=== PATIENT | male | born 1940 | race Caucasian/White ===

== ENCOUNTER 2022-09-23 06:35 | Emergency (ER) | payer MEDICARE, SELFPAY ==
[2022-09-23 06:42] VITALS: BP 142/90; PULSE 83; RESP 16; TEMP 35.7; O2SAT 93; BMI 26.0
--- NOTE | 2022-09-23 06:50 | ED_ITS ---
HPI - General Adult General Stated complaint: BLOOD IN THE URINE Time Seen by Provider: 09/23/22 06:50 Source: patient Mode of arrival: walk-in History of Present Illness HPI narrative: pt presents emergency department complaining of hematuria. Patient states he had hematuria yesterday. He states he has been able to urinate through it. This morning he looked like he has been clearing up. Patient denies any trauma. He denies any flank pain or abdominal pain. He denies any fever, or chills. He denies any nausea, vomiting, diarrhea, constipation. Patient had radiation treatment 5 years ago for prostate cancer plus seeding his prostate done by Dr. Martin. He is on several to and Plavix for atrial fibrillation and 2 stents. He states he feels slightly dizzy. He denies any palpitations. He denies any dysuria. Hasn't testicular pain or swelling. Related Data Home Medications Medication Instructions Recorded Confirmed amlodipine 10 mg-benazepril 20 mg 1 cap PO DAILY 09/23/22 09/23/22 capsule atorvastatin 80 mg tablet 80 mg PO DAILY 09/23/22 09/23/22 carvedilol 12.5 mg tablet 12.5 mg PO Q12H 09/23/22 09/23/22 clopidogrel 75 mg tablet 75 mg PO DAILY 09/23/22 09/23/22 ferrous sulfate 325 mg (65 mg 325 mg PO DAILY 09/23/22 09/23/22 iron) tablet furosemide 20 mg tablet 20 mg PO DAILY 09/23/22 09/23/22 glimepiride 4 mg tablet 4 mg PO BID 09/23/22 09/23/22 metformin 500 mg tablet 500 mg PO BID 09/23/22 09/23/22 pantoprazole 40 mg tablet,delayed 40 mg PO DAILY 09/23/22 09/23/22 release rivaroxaban 20 mg tablet (Xarelto) 20 mg PO DAILY 09/23/22 09/23/22 Allergies Allergy/AdvReac Type Severity Reaction Status Date / Time No Known Drug Allergies Allergy Verified 09/23/22 06:49 Review of Systems ROS Status of ROS 10 or more systems reviewed and unremarkable except as noted in history and below [facility] Medical History (Updated 09/23/22 @ 06:58 by Marcia Benjamin MD) Surgical History (Updated 09/23/22 @ 06:57 by Aleksandr Lam) Exam Narrative Exam Narrative: Nurses notes and vital signs reviewed and patient is not hypoxic. General: Nontoxic, Elderly, chronically ill, and in no apparent distress. Skin: Warm, dry, no pallor noted. No Rash Head: Normocephalic, atraumatic. Neck: Supple, non-tender. Eye: Pupils are equal, round and EOMI. No scleral icterus. Ears, Nose, Mouth, and Throat: TM clear, no posterior oropharynx erythema or nasal mucosal hypertrophy, uvula is mid-line Oral mucosa is moist Cardiovascular: Regular Rate and Rhythm without murmur, gallop or rub. Respiratory: No accessory muscle use or respiratory distress. Lungs are clear to auscultation, no wheezing, rales or rhonchi Chest Wall: no tenderness Back: No midline thoracic or lumbar vertebral tenderness. No CVA tenderness Musculoskeletal: normal ROM, no calf or popliteal tenderness, no lower extremity edema/swelling GI: Abdomen is soft, non-distended. Normal bowel sounds. No masses appreciated. No tenderness to palpation. No rebound, guarding, or rigidity noted. Neurological: A&O x4. No cranial nerve dysfunction observed. No truncal ataxia. Moves all extremities. Sensation intact. Psychiatric: Cooperative and interactive. Normal mood and affect. Constitutional Vital Signs, click to edit/add: Last Vital Signs Temp 96.3 F L 09/23/22 06:42 Pulse 83 09/23/22 06:42 Resp 16 09/23/22 06:42 BP 142/90 H 09/23/22 06:42 Pulse Ox 93 L 09/23/22 06:42 O2 Del Method Room Air 09/23/22 06:42 Course Vital Signs Vital signs: Vital Signs Temperature 96.3 F L 09/23/22 06:42 Pulse Rate 83 09/23/22 06:42 Respiratory Rate 16 09/23/22 06:42 Blood Pressure 142/90 H 09/23/22 06:42 Pulse Oximetry 93 L 09/23/22 06:42 Oxygen Delivery Method Room Air 09/23/22 06:42 Temperature 96.3 F L 09/23/22 06:42 Pulse Rate 83 09/23/22 06:42 Respiratory Rate 16 09/23/22 06:42 Blood Pressure 142/90 H 09/23/22 06:42 Pulse Oximetry 93 L 09/23/22 06:42 Oxygen Delivery Method Room Air 09/23/22 06:42 Medical Decision Making MDM Narrative Medical decision making narrative: Patient is able to urinate. The urine does not show any gross hematuria. He has a UA and labs studies pending. He will be signed out to Dr. mayes at the end of my shift awaiting lab results, reevaluation, and disposition. Discharge Plan Discharge Clinical Impression: Hematuria Referrals: Jaxon Sahu MD [Primary Care Provider] - 1 week
[2022-09-23 07:08] VITALS: BP 144/68; PULSE 74; RESP 18; O2SAT 94
[2022-09-23 07:10] LABS: Hematocrit 48.8 % (42.0-54.0); Hemoglobin 15.5 g/dL (14.0-18.0); Mean Corpuscular HGB Conc 31.8 g/dL (29.9-35.2); Mean Corpuscular Hemoglobin 26.5 pg (25.9-34.0); Mean Corpuscular Volume 83.4 fL (80.0-94.0); Mean Platelet Volume 10.3 fL (9.5-13.5); Platelet Count 232 10^3/uL (150-450); Red Blood Count 5.85 10^6/uL (4.70-6.10); Red Cell Distribution Width 19.6 % (11.0-15.0)
[2022-09-23 07:15] LABS: Bilirubin Urine NEGATIVE (NEGATIVE); Blood Urine LARGE (NEGATIVE); Clarity Urine CLEAR (CLEAR); Color Urine LT. YELLOW (YELLOW); Glucose Urine UA >=1000 mg/dL (NEGATIVE); Ketones Urine NEGATIVE (NEGATIVE); Leukocyte Esterase Urine NEGATIVE (NEGATIVE); Nitrite Urine NEGATIVE (NEGATIVE); Protein Urine NEGATIVE (NEG/TRACE); Urobilinogen Urine 0.2 EU/dL (0.2-1.0); pH Urine 6.5 (5.0-9.0)
[2022-09-23 07:16] LABS: Anion Gap 11.8; BUN Creatinine Ratio 23.1; Calcium 9.7 mg/dL (8.5-10.1); Carbon Dioxide 28.9 mmol/L (21.0-32.0); Chloride 100 mmol/L (98-107); Estimated GFR (African America >60 (>=60); Estimated GFR (Non-African Ame >60 (>=60); Glucose 254 mg/dL (74-106); Potassium 4.7 mmol/L (3.5-5.1); Sodium 136 mmol/L (136-145)
[2022-09-23 07:23] LABS: INR 1.18; Partial Thromboplastin Time 31.5 sec (22.3-36.2); Prothrombin Time 12.4 sec (9.0-11.6)
[2022-09-23 07:26] LABS: Urine Microscopic Indicated YES
[2022-09-23 07:27] LABS: RBC Urine 20-50 #/HPF (0-2); WBC Urine NONE SEEN #/HPF (NONE SEEN)
[2022-09-23 07:28] LABS: Bacteria Urine NONE SEEN #/HPF (NONE SEEN); Mucus Urine NONE SEEN (NONE SEEN); Squamous Epithelial Cell Urine RARE #/LPF (NONE/RARE)
[2022-09-23 07:29] LABS: Urine Culture Indicated NO
[2022-09-23 07:42] LABS: Eosinophils Absolute Manual 2.09 10^3/uL (0.00-0.70); Lymphocytes Absolute Manual 0.77 10^3/uL (1.20-3.80); Monocytes Absolute Manual 0.66 10^3/uL (0.30-0.80); Segmented Neut Absolute Manual 7.48 10^3/uL (1.4-6.5)
--- NOTE | 2022-09-23 07:47 | CT_ITS ---
[address] [address] Patient Name: KHADAR RAMOS MRN: [id number] date: 1940 Sex: M Assigned Patient Location: ER Current Patient Location: Accession/Order Number: [id number] Exam Date: 09/23/2022 08:53 Report Date: 09/23/2022 09:54 At the request of: MARIAM MORLEY Procedure: CT abdomen pelvis w con EXAM: CT abdomen pelvis w con HISTORY: hematuria history of prostate cancer. COMPARISON: None. TECHNIQUE: Axial CT imaging was performed through the abdomen and pelvis with intravenous contrast. Multiplanar reformats were performed. Dose reduction techniques were achieved by using automated exposure control and/or adjustment of mA and/or kV according to patient size and/or use of iterative reconstruction technique. FINDINGS: Lung bases: Emphysema is demonstrated within lung bases. Coronary artery calcifications and/or coronary artery stent. Mild cardiomegaly. GI upper: Moderate hiatal hernia. Significant thickening of the lower esophagus. Liver: Hepatic steatosis. Normal size and contour. Gallbladder: No significant abnormality. No cholelithiasis. Biliary system: No intra or extrahepatic biliary ductal dilatation. Spleen: Normal size. Pancreas: There is a 3 cm cystic structure along the superior margin of the pancreatic body (image 34 series 3). Adrenal glands: 16 mm right adrenal nodule has attenuation compatible with lipid rich adenoma (image 34 of series 3). Normal left adrenal gland. Kidneys/ureters: Normal contours. No hydronephrosis or ureterolithiasis. No nephrolithiasis. Multiple bilateral renal cysts are demonstrated. Dominant cyst versus several adjacent cysts of the inferior pole the right kidney measures up to 8.5 cm in size. Subcentimeter hypoattenuating lesions of the bilateral kidneys are too small to further characterize although statistically most likely represent cysts. Vessels: Significant atherosclerotic disease. Ectatic infrarenal aorta, measuring 2.9 cm. Lymph Nodes: No lymphadenopathy. Small bowel: No wall thickening or dilatation. Colon: No dilatation. Colonic diverticulosis. Appendix: No findings of appendicitis. Peritoneal cavity: No free fluid or peritoneum. Lower : There is bladder wall thickening with minimal adjacent haziness. Treatment related findings of the prostate are noted. Bones: Degenerative findings without acute bony abnormality. Soft tissues: Small right inguinal hernia defect which contains a small amount of fluid. Additional findings: None. CT/CT abdomen pelvis w con IMPRESSION: 1. Prominence of bladder wall minimal adjacent haziness-please exclude cystitis on clinical grounds. 2. Multiple subcentimeter enhancing foci of the right hepatic lobe are indeterminate. These may represent tiny hemangiomas. Enhancing metastatic foci are in the differential diagnosis. Nonemergent MRI hepatic protocol may be of benefit to further characterize. 3. 3 cm cystic structure of the pancreatic head. Pseudocyst or mucinous neoplasm are possible. Comparison to prior imaging, if available, would be of benefit. Otherwise, this can be better characterized on MRI as described above. 4. Moderate hiatal hernia. Significant wall thickening of the lower esophagus likely represents esophagitis. 5. Additional findings as above. Electronically authenticated by: VIRGINIE CARMICHAEL Date: 09/23/2022 09:54
[2022-09-23 08:10] VITALS: BP 130/84; PULSE 77; RESP 16; O2SAT 95
[2022-09-23] MEDS: 0.9 % SODIUM CHLORIDE 1,000 ML 1000 ML IV (08:48)
== END 2022-09-23 11:33 | disposition home or self-care (01) ==
PROVIDERS: Emergency Provider Emergency Medicine; PCP Family Medicine
DX: R31.9 Hematuria, unspecified (principal); Z79.899 Other long term (current) drug therapy; Z79.84 Long term (current) use of oral hypoglycemic drugs; Z79.01 Long term (current) use of anticoagulants; Z85.46 Personal history of malignant neoplasm of prostate; Z79.02 Long term (current) use of antithrombotics/antiplatelets; Z95.5 Presence of coronary angioplasty implant and graft
CPT/HCPCS: 36415; 74177; 80048; 81001; 81003; 81015; 85007; 85025; 85027; 85610; 85730; 87086; 99285; Q9967

== ENCOUNTER 2022-09-27 09:39 | Outpatient (OUT) | payer MEDICARE, SELFPAY ==
[2022-09-28 04:07] LABS: CA 19-9 43 U/mL (0-35)
== END 2022-09-27 09:40 | disposition home or self-care (01) ==
LOC: LAB 09:41
PROVIDERS: PCP Family Medicine; Visit Provider Family Medicine
DX: K86.2 Cyst of pancreas (principal)
CPT/HCPCS: 36415; 86301

== ENCOUNTER 2022-10-10 09:26 | Outpatient (OUT) | payer MEDICARE, SELFPAY ==
--- NOTE | 2022-10-10 09:32 | MR_ITS ---
[address] [address] Patient Name: KHADAR RAMOS MRN: [id number] date: 1940 Sex: M Assigned Patient Location: MRI Current Patient Location: MRI Accession/Order Number: [id number] Exam Date: 10/10/2022 09:45 Report Date: 10/10/2022 14:42 At the request of: JOSY DELACRUZ Procedure: MR abdomen wo/w con EXAMINATION: MR abdomen wo/w con 10/10/2022 11:32 AM PDT HISTORY: Cyst Of Pancreas K86.2, Hematuria R31.9. TECHNIQUE: MRI of the abdomen was performed using multiplanar T1-weighted and T2-weighted sequences before and after administration of intravenous contrast. COMPARISON: CT abdomen/pelvis 09/23/2022. FINDINGS: VISUALIZED PORTIONS OF THE LOWER CHEST: -Hiatal hernia is better evaluated on the preceding chest CT. ABDOMEN: Liver: Normal. No evidence of hepatic steatosis. Biliary tree: No intra or extrahepatic biliary ductal dilatation. Gallbladder: Present and normal. Spleen: Normal. Pancreas: -Homogeneously T2 hyperintense cyst in the cranial aspect of the pancreatic neck which measures 3 x 2.6 x 2.6 cm (series 9001 image 14 and series 5001 image 11). No definite connection to the main pancreatic duct. No enhancement. -No other pancreatic cysts. -No pancreatic ductal dilatation or peripancreatic inflammatory changes. Adrenal glands: Normal. Kidneys: -Multiple simple appearing and nonenhancing bilateral renal cyst. The largest are located in the lower pole of the right kidney where there are 2 adjacent cysts which measure in total 8.1 x 7.9 cm. -No suspicious renal lesion. -No hydronephrosis. Stomach/visualized small bowel and colon: No obstruction. Vasculature: No aneurysm. Intra-abdominal lymph nodes: None pathologically enlarged. Free fluid: None present. MUSCULOSKELETAL: No acute osseous findings. MR/MR abdomen wo/w con IMPRESSION: 1. Simple appearing nonenhancing pancreatic cyst measuring up to 3 cm. No definite connection with the main pancreatic duct. Given low-risk imaging features and patient age greater than or equal to 80 years, recommend repeat MRI of the abdomen with and without contrast and with MRCP in 2 years for further evaluation (recommendations based on white paper for incidental pancreatic cyst). 2. Bilateral benign-appearing renal cysts. No suspicious renal lesion demonstrated. Electronically authenticated by: NAZANIN GILBERT Date: 10/10/2022 14:42
== END 2022-10-10 09:27 | disposition home or self-care (01) ==
LOC: MRI 09:26
PROVIDERS: PCP Family Medicine; Visit Provider Family Medicine
DX: K86.2 Cyst of pancreas (principal); R31.9 Hematuria, unspecified; N28.1 Cyst of kidney, acquired
CPT/HCPCS: 74183

== ENCOUNTER 2022-10-19 09:54 | Outpatient (OUT) | payer MEDICARE, SELFPAY ==
--- NOTE | 2022-10-19 09:58 | US_ITS ---
[address] [address] Patient Name: KHADAR RAMOS MRN: [id number] date: 1940 Sex: M Assigned Patient Location: US Current Patient Location: Accession/Order Number: [id number] Exam Date: 10/19/2022 10:05 Report Date: 10/20/2022 00:56 At the request of: MAGUI JUDGE Procedure: US renal BI EXAMINATION: US renal BI HISTORY: Gross Hematuria R31.0 COMPARISON: MRI abdomen 10/10/2022, CT abdomen pelvis 09/23/2022 TECHNIQUE: Ultrasound examination was performed of the kidneys and urinary bladder. FINDINGS: RIGHT KIDNEY: Homogeneous echotexture without significant cortical thinning. No appreciable stones. Contain several benign-appearing cysts, largest is 9.2 x 8.7 x 6.1 cm and is composed of 2 adjacent cysts versus a septated cyst. Kidney: 10.9 x 5.9 x 7.4 cm LEFT KIDNEY: Homogeneous echotexture without significant cortical thinning. No appreciable stones. Contain several benign-appearing cysts, largest is 3.5 cm. Kidney: 11.2 x 4.4 x 5.4 cm. BLADDER: No visible wall thickening, mass, or calculi. Small posterior right bladder diverticulum, 0.7 cm. US/US renal BI IMPRESSION: 1. Bilateral renal cysts favoring benign etiology, also seen on prior MRI and CT abdomen studies. 2. Small bladder diverticulum. Electronically authenticated by: SHANITA MORRIS Date: 10/20/2022 00:56
== END 2022-10-19 09:55 | disposition home or self-care (01) ==
LOC: US 09:54
PROVIDERS: PCP Family Medicine; Visit Provider Urology
DX: R31.0 Gross hematuria (principal)
CPT/HCPCS: 76775

== ENCOUNTER 2023-03-19 09:52 | Outpatient (OUT) | payer MEDICARE, SELFPAY ==
--- NOTE | 2023-03-19 10:30 | CA_ITS ---
Patient Name: KHADAR RAMOS MR#: [id number] : 1940 Exam Date: 03/19/2023 Ordering Doctor: DR RAMYA BOLAND M.D. ECHOCARDIOGRAM REPORT PROCEDURE: CA ECHO DOPPLER COMPLETE INDICATIONS: Paroxysmal atrial fibrillation, hypertension, diabetes, cardiac stent COMPARISON: None. DESCRIPTION: COMPLETE ECHOCARDIOGRAM Real-time transthoracic echocardiography with 2D, M-mode, spectral and color flow Doppler performed. QUALITY: Technical quality was good. 67 , 158#, BSA 1.83 m2 LEFT VENTRICLE: Normal chamber size. Mild concentric left ventricular hypertrophy. Normal systolic function. LV EF: Normal left ventricular ejection fraction, (>55%). DIASTOLIC: Not adequately assessed due to heart rhythm. ATRIAL SEPTUM: Visually appears intact. LEFT ATRIUM: Severe dilatation. RIGHT ATRIUM: Severe dilatation. RIGHT VENTRICLE: Moderate dilatation. Preserved systolic function. TRICUSPID VALVE: Normal mobility and thickness. No stenosis with moderate regurgitation. Moderately elevated right-sided pressures. RVSP is 49 mmHg. MITRAL VALVE: Mildly thickened with normal mobility. There is no mitral annular calcification. Mild to moderate mitral regurgitation. AORTIC VALVE: Normal trileaflet appearance. Normal leaflet mobility. Multifocal calcifications. No aortic regurgitation. No aortic stenosis. AORTIC ROOT: Normal diameter and appearance. PULMONIC VALVE: Normal thickness and mobility. No stenosis. Mild regurgitation. PERICARDIUM: No evidence of pericardial effusion. IVC: Collapses with inspirations. IVC is dilated (2.2 cm) PLEURA: CONCLUSION: 1. Mild concentric left ventricular hypertrophy with normal systolic function. LVEF is 55 to 60%. 2. Moderately dilated right ventricle with preserved systolic function. 3. Severe biatrial dilatation. 4. Moderate tricuspid regurgitation. 5. Mild to moderate mitral regurgitation. 6. The patient appears to be in atrial fibrillation during the exam. Adult Echocardiography Procedure Report Left Ventricle LVEDD (3.7 - 5.6 cm): 3.98 cm LVESD (2.2 - 4.0 cm): 3.06 cm LVIVS thickness (0.6 - 1.2 cm): 1.60 cm LVPW thickness (0.5 - 1.0 cm): 1.46 cm LVOT Max Gradient: 1.94 mm[Hg] LVOT Area (cm2): 0.70 m/s Peak Velocity (LVOT): 0.70 m/s Mean Velocity (LVOT): 0.49 m/s LVOT Diameter 2.04 cm Left Atrium LA Volume Index (2D A2C): 62.18 ml/m2 Left Atrium Systolic Dimension: 4.35 cm Mitral Valve Mitral Valve E-Wave Peak Velocity: 0.99 m/s Right Ventricle Aorta AO Root Diam: 3.71 cm Ascending Ao Diam: 2.78 cm Aortic Valve AoV Area (Peak Kwan): 1.71 cm2, 1.71 cm2 AoV Area (VTI): 1.83 cm2, 1.83 cm2 Peak Velocity(Antegrade Flow): 1.33 m/s Peak Gradient(Antegrade Flow): 7.05 mm[Hg] Mean Velocity(Antegrade Flow): 0.92 m/s Mean Gradient(Antegrade Flow): 3.76 mm[Hg] Velocity Time Integral: 23.40 cm Tricuspid Valve Peak Velocity (Regurgitant Flow): 3.15 m/s, 3.12 m/s, 3.18 m/s Pulmonic Valve Peak Velocity: 0.78 m/s Peak Gradient: 3.10 mm[Hg], 1.80 mm[Hg] Right Atrium Right Atrium Systolic Pressure: 91.97 ml, 91.97 ml Dictated by: Emiliano Núñez M.D. on 03/20/2023 at 17:58 Approved by: Emiliano Núñez M.D. on 03/20/2023 at 18:02
== END 2023-03-19 09:53 | disposition home or self-care (01) ==
LOC: CARD 09:52
PROVIDERS: PCP Family Medicine; Visit Provider Internal Medicine Interventional Cardiology
DX: I48.0 Paroxysmal atrial fibrillation (principal)
CPT/HCPCS: 93306

== ENCOUNTER 2023-04-05 08:59 | Outpatient (OUT) | payer MEDICARE, SELFPAY ==
--- OUTSIDE RECORDS SUMMARY | 2023-04-05 09:16 | XMS_ITS | CCD ---
Author Name Unknown Address [facility] [address] [place] [address] Organization [facility] Care Team Providers Care Saw Grinder Name Role Phone RAMYA FLANAGAN Attending Unavailable RAMYA FLANAGAN Admitting Unavailable JOSY SAHU Referring Unavailable JOSY SAHU Primary Care Unavailable SEVERIANO, BABAK Admitting Unavailable SEVERIANO, BABAK Consulting Unavailable SEVERIANO, BABAK Attending Unavailable HOY, DR FERRIS Primary Care Unavailable SEVERIANO, BABAK Attending Unavailable SEVERIANO, BABAK Admitting Unavailable SEVERIANO, BABAK Consulting Unavailable ELISABETHY, DR FERRIS Primary Care Unavailable ELTAHAWY, DR BUI Admitting Unavailable HOY, DR FERRIS Primary Care Unavailable ELTAHAWY, DR BUI Consulting Unavailable ELTAHAWY, DR BUI Attending Unavailable MARTIN, DR KILGORE Admitting Unavailable MARTIN, DR KILGORE Consulting Unavailable MARTIN, DR KILGORE Attending Unavailable HOY, DR FERRIS Primary Care Unavailable Josy Sahu Primary Care Physician Yousuf MARTIN Attending Unavailable MARTIN, Yousuf Barroso Admitting Unavailable MARTINYousuf Referring Unavailable MARTIN, Yousuf Barroso Attending Unavailable MARTIN, Yousuf Barroso Admitting Unavailable MARTIN, Yousuf R Attending Unavailable MARTIN, Yousuf Barroso Attending Unavailable ZAHLERKELY Attending Unavailable SEVERIANO, BABAK Attending Unavailable SARAJACKY Attending Unavailable ELTAHAWY, RAMYA Attending Unavailable Medications Current Medications Medication Drug Class(es) Dates Sig (Normalized) Sig (Original) Amlodipine (2 sources) Dihydropyridine Calcium Channel Kendy Start: 04-25-2019 amlodipine Oral, Daily, Refills(s) 0 Start Date: 04/25/19 Status: Ordered atorvastatin 80 mg oral tablet (2 sources) HMG-CoA Reductase Inhibitor Start: 04-25-2021 take 1 mg by mouth once daily atorvastatin 80 mg Tab mg tab(s), Oral, Daily, Refills(s) 0 Start Date: 04/25/21 Status: Ordered carvedilol 3.125 mg oral tablet (2 sources) alpha-Adrenergic Kendy, beta-Adrenergic Kendy Start: 04-25-2021 take 1 mg by mouth twice daily carvedilol 3.125 mg Tab mg tab(s), Oral, BID, Refills(s) 0 Start Date: 04/25/21 Status: Ordered Cinnamon Preparation (2 sources) Non-Standardized Food Allergenic Extract Start: 04-25-2019 take 1 mg by mouth twice daily cinnamon mg, Oral, BID, Refills(s) 0 Start Date: 04/25/19 Status: Ordered clopidogrel 75 mg oral tablet (2 sources) P2Y12 Platelet Inhibitor Start: 04-25-2021 take 1 mg by mouth once daily clopidogrel 75 mg Tab mg tab(s), Oral, Daily, Refills(s) 0 Start Date: 04/25/21 Status: Ordered ferrous sulfate 325 mg delayed release oral tablet (2 sources) Start: 04-25-2021 take 1 mg by mouth once daily ferrous sulfate 325 mg oral enteric coated tablet mg tab(s), Oral, Daily, Refills(s) 0 Start Date: 04/25/21 Status: Ordered Fish Oils (2 sources) Start: 04-25-2019 Fish Oil Oral, Refill(s) 0 Start Date: 04/25/19 Status: Ordered furosemide 40 mg oral tablet (2 sources) Loop Diuretic Start: 04-25-2021 take 1 mg by mouth once daily furosemide 40 mg Tab mg tab(s), Oral, Daily, Refills(s) 0 Start Date: 04/25/21 Status: Ordered glimepiride (2 sources) Sulfonylurea Start: 04-25-2019 glimepiride Oral, Daily, Refills(s) 0 Start Date: 04/25/19 Status: Ordered Iron Chews (2 sources) Start: 04-25-2019 take 1 mg by mouth once daily Iron Chews mg, Oral, Daily, Refills(s) 0 Start Date: 04/25/19 Status: Ordered losartan potassium 25 mg oral tablet (2 sources) Angiotensin 2 Receptor Kendy Start: 04-25-2021 take 1 mg by mouth once daily losartan 25 mg Tab mg tab(s), Oral, Daily, Refills(s) 0 Start Date: 04/25/21 Status: Ordered metFORMIN (2 sources) Biguanide Start: 04-25-2019 metformin Oral, Refills(s) 0 Start Date: 04/25/19 Status: Ordered 24 hr metoprolol succinate 50 mg extended release oral tablet (2 sources) beta-Adrenergic Kendy Start: 04-25-2019 take 1 mg by mouth once daily metoprolol 50 mg ER Tab mg tab(s), Oral, Daily, Refills(s) 0 Start Date: 04/25/19 Status: Ordered Multi Vitamin+ (2 sources) Start: 04-25-2019 Multi Vitamin+ Refill(s) 0 Start Date: 04/25/19 Status: Ordered pantoprazole 40 mg delayed release oral tablet (2 sources) Proton Pump Inhibitor Start: 10-13-2022 take 1 mg by mouth once daily Pantoprazole [address] Tab mg tab(s), Oral, Daily, Refills(s) 0 Start Date: 10/13/22 Status: Ordered Xarelto (2 sources) Factor Xa Inhibitor Start: 04-25-2019 Xarelto Oral, Refills(s) 0 Start Date: 04/25/19 Status: Ordered Simvastatin (2 sources) HMG-CoA Reductase Inhibitor Start: 04-25-2019 simvastatin Oral, Refills(s) 0 Start Date: 04/25/19 Status: Ordered Completed/Discontinued Medications Medication Drug Class(es) Dates Sig (Normalized) Sig (Original) ciprofloxacin 500 mg oral tablet (1 source) Quinolone Antimicrobial Start: 10-13-2022 End: 10-15-2022 take 1 tablet by mouth once daily Cipro 500 mg Tab 500 mg = 1 tab(s), Oral, Daily, Take one tab day before procedure, take one tab after procedure, X 2 day(s), # 2 tab(s), Refills(s) 0, Pharmacy: [facility]/pharmacy #[id number], 169, cm, 10/13/22 9:51:00 EDT, Height/Length Dosing, 81.2, kg, 10/13/22 9:51:00 EDT, W... Start Date: 10/13/22 Stop Date: 10/15/22 Status: Ordered Problems Problem Classification Problem Date Documented Date Episodic/Chronic Cancer of prostate (2 sources) Malignant tumor of prostate 04-25-2019 Chronic Cancer of prostate (4 sources) Personal history of malignant neoplasm of prostate; Translations: [History of malignant neoplasm of prostate] Onset: 04-21-2022 Episodic Cardiac dysrhythmias (3 sources) Unspecified atrial fibrillation; Translations: [Atrial fibrillation] Onset: 05-06-2021 04-25-2019 Chronic Chronic obstructive pulmonary disease and bronchiectasis (2 sources) Emphysema, unspecified; Translations: [Emphysema, unspecified] Onset: 03-29-2023 Chronic Congestive heart failure; nonhypertensive (4 sources) Chronic systolic (congestive) heart failure; Translations: [Acute systolic (congestive) heart failure] Onset: 05-06-2021 Chronic Coronary atherosclerosis and other heart disease (3 sources) Atherosclerotic heart disease of [place] coronary artery without angina pectoris; Translations: [ASHD [place] CA W/O ANGINA PECTORIS] Onset: 04-07-2022 Chronic Diabetes mellitus without complication (6 sources) Type 2 diabetes mellitus without complications; Translations: [Diabetes mellitus] Onset: 05-04-2021 Chronic Diabetes mellitus without complication (2 sources) Glycosuria 04-25-2019 Episodic Disorders of lipid metabolism (4 sources) Hyperlipidemia; Translations: [Mixed hyperlipidemia] Onset: 04-07-2022 04-25-2019 Chronic Essential hypertension (6 sources) Essential (primary) hypertension; Translations: [Hypertensive disorder] Onset: 10-25-2021 Chronic Genitourinary symptoms and ill-defined conditions (7 sources) Nocturia; Translations: [Nocturia] Onset: 04-21-2022 Episodic Hyperplasia of prostate (9 sources) Benign prostatic hyperplasia with lower urinary tract symptoms; Translations: [Benign prostatic hypertrophy with outflow obstruction] Onset: 04-20-2022 Chronic Hypertension with complications and secondary hypertension (2 sources) Hypertensive heart disease with heart failure; Translations: [Hypertensive heart disease with heart failure] Onset: 04-07-2022 Chronic Inflammatory conditions of male genital organs (2 sources) Prostatitis 04-25-2019 Episodic Other and ill-defined heart disease (2 sources) Cardiomegaly; Translations: [Cardiomegaly] Onset: 03-29-2023 Chronic Other diseases of kidney and ureters (1 source) 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; Translations: [Cyst of kidney, acquired] Onset: 10-13-2022 Episodic Other diseases of kidney and ureters (2 sources) Cyst of kidney 10-13-2022 Episodic Other male genital disorders (2 sources) Disorder of male genital organ 04-25-2019 Episodic Other screening for suspected conditions (not mental disorders or infectious disease) (2 sources) Raised prostate specific antigen 04-25-2019 Episodic Unclassified (2 sources) Prostatic intraepithelial neoplasia high grade 04-25-2019 Unclassified (2 sources) Permanent atrial fibrillation; Translations: [Permanent atrial fibrillation] Onset: 04-07-2022 Unclassified (2 sources) Other persistent atrial fibrillation; Translations: [Other persistent atrial fibrillation] Onset: 04-07-2022 Results Test Name Value Interpretation Reference Range Facility Telemedicineon 03-29-2023 Telemedicine [id number] Khadar Ramos 1940 M Date Provider Department Center 03/29/2023 [facility] Family History Problem Relation Age of Onset Other Father Coronary artery disease Brother Other Brother Family Status - Relation Status Age at Father Brother Level of Service:57840 MO OFFICE/OUTPATIENT ESTABLISHED MOD [facility] 30 MIN Reason for Visit and Comments: Telehealth Audio/video Visit [871] Congestive Heart Failure [127] Coronary Artery Disease [187] Hypertension [037260] Atrial Fibrillation [80] Normal [facility] Operative Reporton 3 Operative Report Patient: KHADAR RAMOS Age: 82 years Sex: Male : 1940 Associated Diagnoses: None Author: Yousuf MARTIN MD Procedure Operative Information Details: Date/ Time: 10/17/2022 10:20:00. Pre-Op Dx: Gross Hematuria - R31.0, Hx of Prostate CA - Z85.46. Post-Op Dx: Same. Anesthesia Type: Local. Procedure: Local Cystoscopy. Complications: None. Risks/Benefits/Informed Consent: Surgical risks, benefits, details of the procedure have been explained to the patient, Full informed consent has been obtained. Intraoperative Information Prepped: Patient is brought back to the endoscopy suite, Patient is placed in supine position, Patient prepped in the usual fashion with Betadine solution, 2% Xylocaine Jelly is placed per Urethra, After waiting several minutes the Cystoscope is introduced. The Urethra is: Normal. The Prostatic Urethra is: Unobstructed. The Bladder is: Trabeculated (Severe (3), Open diverticuli diffusely. No bladder tumors. Typical telangiectatic radiation changes.). The ureteral orifices: Show efflux of clear urine. Devices Implanted: None. Removal: Cystoscope is removed, The patient tolerated it well. Postoperative Information Discharge: Patient is discharged home with antibiotic coverage, Follow up arranged. He will get scheduled for a renal ultrasound.. Normal [facility] Comment on above: Result Comment: Elec tronically Signed By: ALFIE WISE, Yousuf Contreras.manuel\Date and Time Signed: 11/14/22 13:41 EDT Office Visiton 10-23-2022 Follow-up visit [id number] Khadar Ramos 1940 M Date Provider Department Center 10/23/2022 271-RAMYA FLANAGAN CARD Clute Omid Family History Problem Relation Age of Onset Other Father Coronary artery disease Brother Other Brother Family Status - Relation Status Age at Father Brother Level of Service:85590 MO OFFICE/OUTPATIENT ESTABLISHED MOD MDM 30-39 MIN Normal [facility] RAD - Ultrasound Reporton RAD - Ultrasound Report [id number] D:127 Normal [facility] UroVysion Fish and Urine Cyt o ([facility])on 10-19-2022 UVFISH & UC Diagnosis Info Invalid Interpretation Code [facility] Comment on above: Result Comment: A:Ur ine,Urine:Voided Diagnosis Summary - No evidence of high grade urothelial carcinoma identified. Adequate cellularity for evaluation. Diagnosis Summary - The UroVysion FISH study detected normal copy numbers for chromosomes 3, 7, 17, and 9p21. 143 cells were analyzed in this evaluation. No evidence of aneuploidy for chromosomes 3, 7, or 17 or deletion of the 9p21 locus was found in cells present in this specimen. This test does not rule out the possibility of a low grade non-invasive papillary urothelial carcinoma. 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 Electronically signed by : on: 10/19/2022 19:17:55 Performed By: #### 1 [id number] ####[facility] [id number] [place] [address] Consent for Procedure/Surger yon 10-17-2022 Consent for Procedure/Surgery [id number] CD:127 Normal [facility] Consent for Treatmenton 10-03 Consent for Treatment [id number] D:127 Normal [facility] IntraOperative Documentson 0 10-17-2022 IntraOperative Documents [id number] CD:127 Normal [facility] Main OR Intraoperative Recor don 10-17-2022 Main OR Intraoperative Record IntraOp Document Type FTURO Summary Primary Physician: Yousuf MARTIN MD Finalized Date/Time: 10/17/22 10:17:46 Pt. Name: LUCASAICAROLYNKHADAR/Sex: 1940 Male Med Rec #: [id number] Physician: Yousuf MARTIN MD Financial #: [id number] Pt. Type: O Room/Bed: / Admit/Disch: 10/17/22 09:14:00 - Institution: Case Times FTURO Entry 1 Patient Times In Room 10/17/22 10:11:00 Out Room 10/17/22 10:19:00 Procedure Times Start 10/17/22 10:13:00 Stop 10/17/22 10:16:00 Anesthesia Times Last Modified By: Bay MARCIAL, Catherine Bonilla 10/17/22 10:17:18 Case Attendance FTURO Entry 1 Entry 2 Entry 3 Case Attendee Yousuf MARTIN MD, RN, Catherine Roque RN, CNOR, Connie Role Performed Surgeon - Primary Partner Marketing Intern - Primary Scrub - Primary Time In 10/17/22 10:11:00 10/17/22 10:11:00 10/17/22 10:11:00 Time Out 10/17/22 10:19:00 10/17/22 10:19:00 10/17/22 10:19:00 Procedure CYSTOSCOPY LOCAL(.) CYSTOSCOPY LOCAL(.) CYSTOSCOPY LOCAL(.) Comments Last Modified By: Bay MARCIAL, Catherine Hermosillo RN, Catherine Acosta RN 10/17/22 10:17:42 10/17/22 10:17:42 10/17/22 10:17:42 Surgical Procedures FTURO Entry 1 Procedure Description Procedure CYSTOSCOPY LOCAL Modifiers . Surgeon Description CYSTOSCOPY Primary Procedure Yes Primary Surgeon Yousuf MARTIN MD Start 10/17/22 10:13:00 Stop 10/17/22 10:16:00 Anesthesia Type Local Surgical Service Urology Wound Class 2 - Clean-Contaminated Last Modified By: Catherine Hermosillo RN 10/17/22 10:17:22 General Case Data FTURO Pre-Care Text: Classifies surgical wound, implements aseptic technique, initiates traffic control Entry 1 Case Information OR URO 3 FT Case Level None Wound Class 2 - Clean-Contaminated Specialty Urology Preop Diagnosis GROSS HEMTURIA BPH WITH Postop Same As Preop No OBSTRUCTION, HX OF PROSTATE CANCER Postop Diagnosis GROSS HEMTURIA BPH WITH Outcomes Met? Yes OBSTRUCTION, HX OF PROSTATE CANCER Last Modified By: Catherine Hermosillo RN 10/17/22 10:16:39 Post-Care Text: The patient is free from signs and symptoms of infection EU IntraOp - FTURO Pre-Care Text: Implements protective measures prior to operative or invasive procedure, confirms identity before the operative or invasive procedure, verifies operative procedure, surgical site, and laterality Entry 1 EU Perioperative Protocols Procedure(s) CYSTOSCOPY LOCAL(.) Patient Identity Birthday, ID Band Verified (select at Check, Patient least 2): Participation Consents / H and P HandP, Surgery/Procedure Operative Site N/A Verified Consent Marking Verified Surgical Site Yes Laterality Verified n/a Verified Procedure Verified Yes Correct Patient Yes Position Verified Availability Equipment, Medication Time Out Yousuf MARTIN MD, Verified (If Participants Catherine Hermosillo RN, Applicable) Mya MARCIAL, Connie HERNÁNDEZ Time Out Complete 10/17/22 10:12:00 Allergies Reviewed? Yes Allergies Reviewed Self/Patient With Body Position Supine Prep Area PENIS Prep Agents Betadine Solution Skin. Condition Intact, [place], Warm, and Dry Additional None Specimens Collected Vitals - EU Blood Pressure 154/80 Pulse 84 bpm Respirations 14 br/min SPO2 EBL 0 IandO - EU Total Intake 0 mL Total Output 0 mL Outcomes Met? Yes Last Modified By: Catherine Hermosillo RN 10/17/22 10:15:58 Post-Care Text: The patient is free from signs and symptoms of injury caused by extraneous objects Sign Out FTURO Entry 1 Before Patient Leaves OR Nurse verbally Yes Nurse verbally n/a confirms with the confirms with the team the name of team that the procedure(s) instrument, sponge, recorded and needle counts are correct (or N/A) Nurse verbally n/a Nurse verbally n/a confirms with the confirms with the team how the team whether there specimen is labeled are any equipment (including patient problems to be name), if applicable addressed Sign Out Complete 10/17/22 10:16:00 Last Modified By: Catherine Hermosillo RN 10/17/22 10:16:19 Case Comments Finalized By: Catherine Hermosillo RN Document Signatures Signed By: Catherine Hermosillo RN 10/17/22 10:17 Normal [facility] Main OR Preoperative Recordo n 10-17-2022 Main OR Preoperative Record Holding Area Document Type FTURO Summary Primary Physician: Yousuf MARTIN MD Finalized Date/Time: 10/17/22 09:29:21 Pt. Name: KHADAR RAMOS Berry Escalera/Sex: 1940 Male Med Rec #: [id number] Physician: Yousuf MARTIN MD Financial #: [id number] Pt. Type: O Room/Bed: / Admit/Disch: 10/17/22 09:14:00 - Institution: Case Times Holding FTURO Pre-Care Text: Verifies consent for planned procedure, identifies individual values and wishes concerning care, includes family members in perioperative teaching Secures patient's records' belongings, and valuables, maintains patient's dignity and privacy, and maintains patient confidentiality Entry 1 In Holding 10/17/22 09:27:00 Outcomes Met? Yes Last Modified By: Mya MARCIAL, Connie HERNÁNDEZ 10/17/22 09:27:59 Post-Care Text: The patient participates in decisions affecting his or her perioperative plan of care The patient's right to privacy is maintained Surgery Checklist FTURO Entry 1 Patient Birthday, ID Band Procedure History and Physical, Identification: Check, Patient Verification: Surgical Consent, With Participation Patient NPO after Midnight: n/a Personal Items: Glasses, Jewelry Personal Items clothes Complaints of Pain: No Comment: Skin Integrity Unable to Visualize Vitals - EU Blood Pressure 154/80 Pulse 84 bpm Respirations 14 br/min SPO2 97 % Additional None RN Reviewed Yes Specimens Collected Last Modified By: BETTY Roque RN, Ruthann 10/17/22 09:29:19 Finalized By: BETTY Roque RN, Ruthann Document Signatures Signed By: BETTY Roque RN, Ruthann 10/17/22 09:29 Normal [facility] Outpatient Surgery Discharge Instructionon 10-17-2022 Outpatient Surgery Discharge Instruction [id number] CD:127 Normal [facility] Insurance Correspondenceon 0 10-13-2022 Insurance Correspondence [id number] CD:127 Normal [facility] Patient Educationon 10-14-19 Patient Education Urology Benign Prostatic Hyperplasia Benign prostatic hyperplasia (BPH) is an enlarged prostate gland that is caused by the normal aging process. The prostate may get bigger as a man gets older. The condition is not caused by cancer. The prostate is a walnut-sized gland that is involved in the production of semen. It is located in front of the rectum and below the bladder. The bladder stores urine. The urethra carries stored urine out of the body. An enlarged prostate can press on the urethra. This can make it harder to pass urine. The buildup of urine in the bladder can cause infection. Back pressure and infection may progress to bladder damage and kidney (renal) failure. What are the causes? This condition is part of the normal aging process. However, not all men develop problems from this condition. If the prostate enlarges away from the urethra, urine flow will not be blocked. If it enlarges toward the urethra and compresses it, there will be problems passing urine. What increases the risk? This condition is more likely to develop in men older than 50 years. What are the signs or symptoms? Symptoms of this condition include: ? Getting up often during the night to urinate. ? Needing to urinate frequently during the day. ? Difficulty starting urine flow. ? Decrease in size and strength of your urine stream. ? Leaking (dribbling) after urinating. ? Inability to pass urine. This needs immediate treatment. ? Inability to completely empty your bladder. ? Pain when you pass urine. This is more common if there is also an infection. ? Urinary tract infection (UTI). How is this diagnosed? This condition is diagnosed based on your medical history, a physical exam, and your symptoms. Tests will also be done, such as: ? A post-void bladder scan. This measures any amount of urine that may remain in your bladder after you finish urinating. ? A digital rectal exam. In a rectal exam, your health care provider checks your prostate by putting a lubricated, gloved finger into your rectum to feel the back of your prostate gland. This exam detects the size of your gland and any abnormal lumps or growths. ? An exam of your urine (urinalysis). ? A prostate specific antigen (PSA) screening. This is a blood test used to screen for prostate cancer. ? An ultrasound. This test uses sound waves to electronically produce a picture of your prostate gland. Your health care provider may refer you to a specialist in kidney and prostate diseases (urologist). How is this treated? Once symptoms begin, your health care provider will monitor your condition (active surveillance or watchful waiting). Treatment for this condition will depend on the severity of your condition. Treatment may include: ? Observation and yearly exams. This may be the only treatment needed if your condition and symptoms are mild. ? Medicines to relieve your symptoms, including: ? Medicines to shrink the prostate. ? Medicines to relax the muscle of the prostate. ? Surgery in severe cases. Surgery may include: ? Prostatectomy. In this procedure, the prostate tissue is removed completely through an open incision or with a laparoscope or robotics. ? Transurethral resection of the prostate (TURP). In this procedure, a tool is inserted through the opening at the tip of the penis (urethra). It is used to cut away tissue of the inner core of the prostate. The pieces are removed through the same opening of the penis. This removes the blockage. ? Transurethral incision (TUIP). In this procedure, small cuts are made in the prostate. This lessens the prostate's pressure on the urethra. ? Transurethral microwave thermotherapy (TUMT). This procedure uses microwaves to create heat. The heat destroys and removes a small amount of prostate tissue. ? Transurethral needle ablation (TUNA). This procedure uses radio frequencies to destroy and remove a small amount of prostate tissue. ? Interstitial laser coagulation (ILC). This procedure uses a laser to destroy and remove a small amount of prostate tissue. ? Transurethral electrovaporization (TUVP). This procedure uses electrodes to destroy and remove a small amount of prostate tissue. ? Prostatic urethral lift. This procedure inserts an implant to push the lobes of the prostate away from the urethra. Follow these instructions at home: ? Take [id number] and prescription medicines only as told by your health care provider. ? Monitor your symptoms for any changes. Contact your health care provider with any changes. ? Avoid drinking large amounts of liquid before going to bed or out in public. ? Avoid or reduce how much caffeine or alcohol you drink. ? Give yourself time when you urinate. ? Keep all follow-up visits. This is important. Contact a health care provider if: ? You have unexplained back pain. ? Your symptoms do not get better with treatment. ? You develop side effects from the medicine (more content not included)... Normal [facility] UroVysion Fish and Urine Cyt o ([facility])on 10-13-2022 [facility] Method of Extraction Bladder Urine Normal [facility] Comment on above: Performed By: #### 1 [id number] ####[facility] [id number] [place] [address] [facility] Number of Jars 1 Invalid Interpretation Code [facility] Comment on above: Performed By: #### 1 [id number] ####[facility] [id number] [place] [address] [facility] Specimen Urine Normal [facility] Comment on above: Performed By: #### 1 [id number] ####[facility] [id number] [place] [address] [facility]UC Type of Service Technical Only Normal [facility] Comment on above: Performed By: #### 1 [id number] ####[facility] [address] [place] [address] Urology Office/Clinic Noteon 10-13-2022 Urology Office/Clinic Note Chief Complaint Hx of prostate cancer HPI Staff 1 year f/u with PSA. Previous dx of BPH with urinary obstruction, hx of prostate cancer (Brachytherapy 10/2014) and nocturia. Current PSA done 09/23/22 is <0.13 and previous done 04/18/21 was 0.14. Pt saw blood in his urine on September 23 and went to [facility] for it. He states that he only saw it the one day and has not seen it since. 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 Dysuria: no Incomplete bladder emptying: no Hematuria: saw blood on September 23 this year, only for 1 day and nothing since. Frequency: no Urgency: yes almost every time Nocturia: 3x since Brachytherapy Stream: no straining good stream Leaking: no Post void dripping: yes Wearing pads/ Depends: a pad sometimes Urge incontinence: no Stress incontinence: no Incontinence without Sensory Awareness: no Abdominal pain: no Flank pain: no Sexual complaints: no History of Present Illness Tests reviewed: reviewed UA and PSA I have reviewed the previous health record information and history for this patient from . I have reviewed and verified the staff HPI to be accurate for this encounter. There have been no associated fever, chills, flank pain, or blood in the urine. Denies any urinary infections since last encounter. Review of Systems PHQ Score Initial Depression Screen Score: 0 ROS - Provider Constitutional: denies weight loss, denies hot flashes. Eyes: denies eye problems. Gastrointestinal: denies nausea, denies vomiting. Cardiovascular: denies chest pain or angina. Integumentary: no dryness Musculoskeletal: denies musculoskeletal symptoms. ENMT: denies otolaryngeal symptoms. Respiratory: no shortness of breath. Heme/Lymph: denies easy bleeding tendency, denies easy bruising tendency. Psychiatric: no confusion, no anxiety. Genitourinary: See HPI. Physical Exam Vitals & Measurements HR: 69(Peripheral) RR: 16 BP: 132/78 HT: 67 in HT: 169 cm WT: 81.2 kg WT: 178.64 lb BMI: 28.43 General Appearance: alert, no distress, well nourished, well developed male. Genitourinary: normal scrotum, normal testes, normal urethra, normal epididymis, normal vas deferens/spermatic cord. Flank Pain: none. Bladder: nonpalpable. Assessment/Plan 1. BPH with urinary obstruction (N40.1: Benign prostatic hyperplasia with lower urinary tract symptoms) Patient is not on any BPH medication at this time and is doing well overall w/ his urination. Pt states he does experience urgency if he waits too long. UA today is negative for blood and infection. 2. History of prostate cancer (Z85.46: Personal history of malignant neoplasm of prostate) S/p Brachytherapy 10/2014. PSA 04/21/19 - 0.12 04/13/20 - <0.05 04/18/21 - 0.14 04/21/22 - <0.13 Discussed PSA levels with pt, remain low and stable. Will continue to monitor. Will order PSA. 3. Nocturia (R35.1: Nocturia) Mild patient gets up 3x a night. Ongoing since Brachytherapy 4. Renal cyst (N28.1: Cyst of kidney, acquired) CT AP w/o con 09/23/22 - several adjacent cysts inferior of the Rt kidney measuring up to 8.5cm 5. Gross hematuria (R31.0: Gross hematuria) Pt saw blood in his urine on September 23 and went to [facility] for it. He states that he only saw it the one day and has not seen it since. 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 UCx. 09/23/22 - negative UA today is negative for blood and infection. Pt denies any pain or visible blood in his urine since this incident. Will schedule cysto. The risks and benefits for cystoscopy have been discussed. The risks include bleeding, infection, and irritation of the bladder and urinary channel, among others. The patient, after being informed of procedural details and after questions have been answered, wishes to proceed. Full informed consent has been obtained. Will order Local anesthesia. Will send abx to pharm on file. Follow-up With When Contact Information ALFIE WISE, Yousuf Barroso, [facility] [address], [place] [address]- Additional Instructions: sched Cysto. Patient Education Benign Prostatic Hyperplasia I, Guerda Negrete , personally scribed for Dr. Martin on 10/13/2022 10:50:40. . Documentation recorded by the scribe, Guerda Negrete, accurately reflects the services(s) I performed and decisions made by me. Problem List/Past Medical History Ongoing Atrial fibrillation BPH (benign prostatic hyperplasia) BPH with urinary obstruction Diabetes Elevated PSA Glycosuria Gross hematuria High grade prostatic intraepithelial neoplasia History of prostate cancer Hyperlipidemia Hypertension Nocturia Prostatitis Renal cyst Right hydrocele Historical Prostate cancer Procedure/Surgical History Placement of stent in cardiac conduit (08/2020), carotid end (more content not included)... [facility] Comment on above: Result Comment: Elec tronically Signed By: Yousuf MARTIN MD\.br\Date and Time Signed: 10/13/22 10:52 EDT\.br\Electronically Co-Signed By: Guerda Negrete\.br\Date and Time Co-Signed: 10/13/22 10:50 EDT\.br\Electronically Co-Signed By: Guerda Negrete\.br\Date and Time Co-Signed: 10/13/22 10:51 EDT Lab Reportson 10-02-2022 Lab Reports [id number] D:127 [facility] Provider Letteron 07-12-2022 Provider Letter (Inserted Image. Arlene ble to display) July 12, 2022 KHADAR RAMOS [address] [id number] KHADAR RAMOS 1940 Dear Mr. Ramos, We have been trying to reach you with no success. You have an appointment with Dr. Yousuf Martin on August 11 which will need to be rescheduled since he will be out of the office that day. Please contact the office at the number listed below to get this appointment rescheduled at your earliest convenience. Thank you for your prompt attention to this matter. Please call [phone] and choose the licensing representative option to be rescheduled. Sincerely, [facility] [address], [place] [address] Normal [facility] Lab Reportson 04-25-2022 Lab Reports [id number] D:127 Normal [facility] CBC AUTO DIFFon 04-20-2022 BASO # 0.0 103/ul Normal 0.0-0.1 [facility] Comment on above: Performed By: #### C BC #### [facility] [address] [place] [address] Dr. Nic Marie Basophils/100 WBC (Bld) 0.5 % Normal 0.2-2.0 [facility] Comment on above: Performed By: #### C BC #### [facility] [address] [place] [address] Dr. Nic Marie EO # 0.7 103/ul Normal 0.0-0.7 [facility] Comment on above: Performed By: #### C BC #### [facility] [address] [address] [address] Nic Marie Eosinophils/100 WBC (Bld) 8.8 % Critically high 0.9-7.0 [facility] Comment on above: Performed By: #### C BC #### [facility] [address] [place] [address] Dr. Nic Marie Erythrocyte distribution width (RBC) [Ratio] 18.0 % Critically high 11.0-15.0 [facility] Comment on above: Performed By: #### C BC #### [facility] [address] [place] [address] Dr. Nic Marie Hematocrit (Bld) [Volume fraction] 44.3 % Normal 42.0-54.0 [facility] Comment on above: Performed By: #### C BC #### [facility] [address] [place] [address] Dr. Nic Marie Hemoglobin (Bld) [Mass/Vol] 13.6 g/dL Critically low 14.0-18.0 [facility] Comment on above: Performed By: #### C BC #### [facility] [address] [address] [address] Nic Marie IG # 0.05 10e3/ul Critically high 0.00-0.03 [facility] Comment on above: Performed By: #### C BC #### [facility] [address] [place] [address] Dr. Nic Marie IG % 0.6 % Critically high 0.0-0.5 [facility] Comment on above: Performed By: #### C BC #### [facility] [address] [place] [address] Dr. Nic Marie LYMPH # 0.8 103/ul Critically low 1.2-3.8 [facility] Comment on above: Performed By: #### C BC #### [facility] [address] [place] [address] Dr. Nic Marie Lymphocytes/100 WBC (Bld) 10.7 % Critically low 20.5-60.0 [facility] Comment on above: Performed By: #### C BC #### [facility] [address] [place] [address] Dr. Nic Marie MANUAL DIFF REQ NO Normal [facility] Comment on above: Performed By: #### C BC #### [facility] [address] [place] [address] Dr. Nic Marie MCH (RBC) [Entitic mass] 24.9 pg Critically low 25.9-34.0 [facility] Comment on above: Performed By: #### C BC #### [facility] [address] [place] [address] Dr. Nic Marie MCHC (RBC) [Mass/Vol] 30.7 g/dL Normal 29.9-35.2 [facility] Comment on above: Performed By: #### C BC #### [facility] [address] [place] [address] Dr. Nic Marie MCV (RBC) [Entitic vol] 81.0 fL Normal 80.0-94.0 [facility] Comment on above: Performed By: #### C BC #### [facility] [address] [address] [address] Nic Marie MONO # 0.9 103/ul Critically high 0.3-0.8 [facility] Comment on above: Performed By: #### C BC #### [facility] [address] [address] [address] Nic Marie Monocytes/100 WBC (Bld) 11.1 % Normal 1.7-12.0 [facility] Comment on above: Performed By: #### C BC #### [facility] [address] [address] [address] Nic Marie NEUT # 5.3 103/ul Normal 1.4-6.5 [facility] Comment on above: Performed By: #### C BC #### [facility] [address] [place] [address] Dr. Nic Marie Neutrophils/100 WBC (Bld) 68.3 % Normal 43.0-75.0 [facility] Comment on above: Performed By: #### C BC #### [facility] [address] [place] [address] Dr. Nic Marie Platelet mean volume (Bld) [Entitic vol] 10.0 fL Normal 9.5-13.5 [facility] Comment on above: Performed By: #### C BC #### [facility] [address] [place] [address] Dr. Nic Marie PLT 203 103/ul Normal 150-450 [facility] Comment on above: Performed By: #### C BC #### [facility] [address] [place] [address] Dr. Nic Marie RBC 5.47 106/ul Normal 4.70-6.10 [facility] Comment on above: Performed By: #### C BC #### [facility] [address] [place] [address] Dr. Nic Marie WBC 7.8 103/ul Normal 4.0-11.0 [facility] Comment on above: Performed By: #### C BC #### [facility] [address] [place] [address] Dr. Nic Marie LIPID PROFILEon 04-20-2022 CHOL-HDL RATIO NORM SEE BELOW Normal [facility] Comment on above: Result Comment: 3.3 - 4.4 LOW RISK 4.4 - 7.1 AVERAGE RISK 7.1 - 11.0 MODERATE RISK >11.0 HIGH RISK Performed By: #### C MP, LIPID #### [facility] [address] [address] [address] Nic Marie Cholesterol [Mass/Vol] 108 mg/dL Normal <=200 [facility] Comment on above: Performed By: #### C MP, LIPID #### [facility] [address] [address] [address] Nic Marie Cholesterol in HDL [Mass/Vol] 36 mg/dL Critically low 40-60 [facility] Comment on above: Performed By: #### C MP, LIPID #### [facility] [address] [address] [address] Nic Marie Cholesterol in LDL [Mass/Vol] 54.2 mg/dL Normal [facility] Comment on above: Performed By: #### C MP, LIPID #### [facility] [address] [address] [address] Nic Marie Cholesterol.total/Ch olesterol in HDL [Mass ratio] 3.0 {ratio} Normal [facility] Comment on above: Performed By: #### C MP, LIPID #### [facility] [address] [address] [address] Nic Marie HDL NORMAL > or = 60 mg/dl - LO W CARDIOVASCULAR RISK <40 mg/dl - HIGH CARDIOVASCULAR RISK Normal [facility] Comment on above: Performed By: #### C MP, LIPID #### [facility] [address] [address] [address] Nic Marie LDL CALC NORMAL SEE BELOW Normal [facility] Comment on above: Result Comment: <100 mg/dl OPTIMAL 100 - 129 mg/dl NEAR OR ABOVE OPTIMAL 130 - 159 mg/dl BORDERLINE HIGH 160 - 189 mg/dl HIGH >190 mg/dl VERY HIGH Performed By: #### C MP, LIPID #### [facility] [address] [place] [address] Dr. Nic Marie Triglyceride [Mass/Vol] 89 mg/dL Normal <=150 [facility] Comment on above: Performed By: #### C MP, LIPID #### [facility] [address] [place] [address] Dr. Nic Marie VLDL CALC 17.8 mg/dL Normal [facility] Comment on above: Performed By: #### C MP, LIPID #### [facility] [address] [place] [address] Dr. Nic Marie PROF 14(COMP METB)on 023 Albumin [Mass/Vol] 3.7 g/dL Normal 3.4-5.0 [facility] Comment on above: Performed By: #### C MP, LIPID #### [facility] [address] [place] [address] Dr. Nic Marie Albumin/Globulin [Mass ratio] 1.0 {ratio} Normal [facility] Comment on above: Performed By: #### C MP, LIPID #### [facility] [address] [place] [address] Dr. Nic Marie ALP [Catalytic activity/Vol] 59 U/L Normal 46-116 [facility] Comment on above: Performed By: #### C MP, LIPID #### [facility] [address] [place] [address] Dr. Nic Marie ALT [Catalytic activity/Vol] 28 U/L Normal 16-63 [facility] Comment on above: Performed By: #### C MP, LIPID #### [facility] [address] [place] [address] Dr. Nic Marie Anion gap [Moles/Vol] 12.1 mmol/L Normal [facility] Comment on above: Performed By: #### C MP, LIPID #### [facility] [address] [place] [address] Dr. Nic Marie AST [Catalytic activity/Vol] 18 U/L Normal 15-37 [facility] Comment on above: Performed By: #### C MP, LIPID #### [facility] [address] [place], [place] [id number] Dr. Nic Marie Bilirubin [Mass/Vol] 0.6 mg/dL Normal 0.2-1.0 [facility] Comment on above: Performed By: #### C MP, LIPID #### [facility] [address] [place] [address] Dr. Nic Marie Calcium [Mass/Vol] 9.6 mg/dL Normal 8.5-10.1 [facility] Comment on above: Performed By: #### C MP, LIPID #### [facility] [address] [place] [address] Dr. Nic Marie Chloride [Moles/Vol] 104 mmol/L Normal 98-107 [facility] Comment on above: Performed By: #### C MP, LIPID #### [facility] [address] [place] [address] Dr. Nic Marie CO2 [Moles/Vol] 30.3 mmol/L Normal 21.0-32.0 [facility] Comment on above: Performed By: #### C MP, LIPID #### [facility] [address] [place] [address] Dr. Nic Marie Creatinine [Mass/Vol] 0.99 mg/dL Normal 0.70-1.30 [facility] Comment on above: Performed By: #### C MP, LIPID #### [facility] [address] [place] [address] Dr. Nic Marie EGFR-AF MICRONESIAN >60 Normal >=60 [facility] Comment on above: Performed By: #### C MP, LIPID #### [facility] [address] [place] [address] Dr. Nic Marie EGFR-NON AF MICRONESIAN >60 Normal >=60 [facility] Comment on above: Performed By: #### C MP, LIPID #### [facility] [address] [place] [address] Dr. Nic Marie Globulin (S) [Mass/Vol] 3.6 g/dL Normal [facility] Comment on above: Performed By: #### C MP, LIPID #### [facility] [address] [place] [address] Dr. Nic Marie Glucose [Mass/Vol] 114 mg/dL Critically high 74-106 [facility] Comment on above: Performed By: #### C MP, LIPID #### [facility] [address] [address] [address] Nic Marie Potassium [Moles/Vol] 4.4 mmol/L Normal 3.5-5.1 [facility] Comment on above: Performed By: #### C MP, LIPID #### [facility] [address] [address] [address] Nic Marie Protein [Mass/Vol] 7.3 g/dL Normal 6.4-8.2 [facility] Comment on above: Performed By: #### C MP, LIPID #### [facility] [address] [place] [address] Dr. Nic Marie Sodium [Moles/Vol] 142 mmol/L Normal 136-145 [facility] Comment on above: Performed By: #### C MP, LIPID #### [facility] [address] [address] [address] Nic Marie Urea nitrogen [Mass/Vol] 23.0 mg/dL Critically high 7.0-18.0 [facility] Comment on above: Performed By: #### C MP, LIPID #### [facility] [address] [place] [address] Dr. Nic Marie Urea nitrogen/Creatinine [Mass ratio] 23.2 mg/mg Normal [facility] Comment on above: Performed By: #### C MP, LIPID #### [facility] [address] [place] [address] Dr. Nic Marie Office Visiton 04-07-2022 Follow-up visit [id number] Khadar Ramos 1940 M Date Provider Department Center 04/07/2022 BABAK ALMEIDA [facility] Family History Problem Relation Age of Onset Other Father Coronary artery disease Brother Other Brother Family Status - Relation Status Age at Father Brother Level of Service:19552 MO OFFICE/OUTPATIENT ESTABLISHED MOD MDM 30-39 MIN Reason for Visit and Comments: Coronary Artery Disease [187] Congestive Heart Failure [127] Hypertension [504280] Atrial Fibrillation [80] Normal [facility] PROF CHEM 8 (BAS METB)on Anion gap [Moles/Vol] 13.0 mmol/L Normal [facility] Comment on above: Performed By: #### P SAD #### [facility] [address] [address] [address] Nic Marie Calcium [Mass/Vol] 9.0 mg/dL Normal 8.5-10.1 [facility] Comment on above: Performed By: #### P SAD #### [facility] [address] [address] [address] Nic Marie Chloride [Moles/Vol] 100 mmol/L Normal 98-107 [facility] Comment on above: Performed By: #### P SAD #### [facility] [address] [place] [address] Dr. Nic Marie CO2 [Moles/Vol] 27.2 mmol/L Normal 21.0-32.0 [facility] Comment on above: Performed By: #### P SAD #### [facility] [address] [address] [address] Nic Marie Creatinine [Mass/Vol] 1.18 mg/dL Normal 0.70-1.30 [facility] Comment on above: Performed By: #### P SAD #### [facility] [address] [place] [address] Dr. Nic Marie EGFR-AF MICRONESIAN >60 Normal >=60 [facility] Comment on above: Performed By: #### P SAD #### [facility] [address] [address] [address] Nic Marie EGFR-NON AF MICRONESIAN =60 Normal >=60 [facility] Comment on above: Performed By: #### P SAD #### [facility] [address] [address] [address] Nic Marie Glucose [Mass/Vol] 238 mg/dL Critically high 74-106 [facility] Comment on above: Performed By: #### P SAD #### [facility] [address] [address] [address] Nic Marie Potassium [Moles/Vol] 4.2 mmol/L Normal 3.5-5.1 [facility] Comment on above: Performed By: #### P SAD #### [facility] [address] [place] [address] Dr. Nic Marie Sodium [Moles/Vol] 136 mmol/L Normal 136-145 [facility] Comment on above: Performed By: #### P SAD #### [facility] [address] [place] [address] Dr. Nic Maire Urea nitrogen [Mass/Vol] 30.0 mg/dL Critically high 7.0-18.0 [facility] Comment on above: Performed By: #### P SAD #### [facility] [address] [place] [address] Dr. Nic Marie Urea nitrogen/Creatinine [Mass ratio] 25.4 mg/mg Normal [facility] Comment on above: Performed By: #### P SAD #### [facility] [address] [place] [address] Dr. Nic Marie CBC W MANUAL DIFFon 05-05-19 22 ANISOCYTOSIS SLIGHT Normal [facility] Comment on above: Performed By: #### C BCMAN #### [facility] [address] [place] [address] Dr. Nic Marie ATYPICAL LYMPH # Normal [facility] Comment on above: Performed By: #### C BCMAN #### [facility] [address] [place] [address] Dr. Nic Marie ATYPICAL LYMPH % Normal [facility] Comment on above: Performed By: #### C BCMAN #### [facility] [address] [place] [address] Dr. Nic Marie BAND # Normal 0.0-0.3 [facility] Comment on above: Performed By: #### C BCMAN #### [facility] [address] [place] [address] Dr. Nic Marie BAND % Normal 0-5 [facility] Comment on above: Performed By: #### C BCMAN #### [facility] [address] [address] [address] Nic Marie BASOM # 0.15 103/ul Critically high 0.00-0.10 [facility] Comment on above: Performed By: #### C BCMAN #### [facility] [address] [place] [address] Dr. Nic Marie BASOM % 1.0 % Normal 0.2-2.0 [facility] Comment on above: Performed By: #### C BCMAN #### [facility] [address] [place] [address] Dr. Nic Marie BLAST # Normal [facility] Comment on above: Performed By: #### C BCSALINA #### [facility] [address] [place] [address] Dr. Nic Marie BLAST % Normal [facility] Comment on above: Performed By: #### C DAMIAN #### [facility] [address] [place] [address] Dr. Nic Marie CORRECTED WBC Normal 4.0-11.0 [facility] Comment on above: Performed By: #### C DAMIAN #### [facility] [address] [place] [address] Dr. Nic Marie EOS # 0.73 103/ul Critically high 0.00-0.70 [facility] Comment on above: Performed By: #### C DAMIAN #### [facility] [address] [place] [address] Dr. Nic Marie EOS% 5.0 % Normal 0.9-7.0 [facility] Comment on above: Performed By: #### C BCSALINA #### [facility] [address] [place] [address] Dr. Nic Marie HCT 38.1 % Critically low 42.0-54.0 [facility] Comment on above: Performed By: #### C BCSALINA #### [facility] [address] [place] [address] Dr. Nic Marie HGB 10.4 g/dl Critically low 14.0-18.0 [facility] Comment on above: Performed By: #### C BCSALINA #### [facility] [address] [address] [address] Nic Marie HYPOCHROMASIA SLIGHT Normal [facility] Comment on above: Performed By: #### C DAMIAN #### [facility] [address] [address] [address] Nic Marie LYMPHM # 0.58 103/ul Critically low 1.20-3.80 [facility] Comment on above: Performed By: #### C ADMIAN #### [facility] [address] [address] [address] Nic Marie LYMPHM% 4.0 % Critically low 20.5-60.0 [facility] Comment on above: Performed By: #### C DAMIAN #### [facility] [address] [place] [address] Dr. Nic Marie MCH 19.3 pg Critically low 25.9-34.0 [facility] Comment on above: Performed By: #### C DAMIAN #### [facility] [address] [place] [address] Dr. Nic Marie MCHC 27.3 g/dl Critically low 29.9-35.2 [facility] Comment on above: Performed By: #### C DAMIAN #### [facility] [address] [place] [address] Dr. Nic Marie MCV 70.6 fL Critically low 80.0-94.0 [facility] Comment on above: Performed By: #### C DAMIAN #### [facility] [address] [place] [address] Dr. Nic Marie METAMYELOCYTE # Normal [facility] Comment on above: Performed By: #### C DAMIAN #### [facility] [address] [place] [address] Dr. Nic Marie METAMYELOCYTE % Normal [facility] Comment on above: Performed By: #### C DAMIAN #### [facility] [address] [place] [address] Dr. Nic Marie MONOM# 0.58 103/ul Normal 0.30-0.80 [facility] Comment on above: Performed By: #### C DAMIAN #### [facility] [address] [address] [address] Nic Marie MONOM% 4.0 % Normal 1.7-12.0 [facility] Comment on above: Performed By: #### C DAMIAN #### [facility] [address] [address] [address] Nic Marie MPV 9.7 fL Normal 9.5-13.5 [facility] Comment on above: Performed By: #### C DAMIAN #### [facility] [address] [address] [address] Nic Marie MYELOCYTE # Normal [facility] Comment on above: Performed By: #### C DAMIAN #### [facility] [address] [address] [address] Nic Marie MYELOCYTE % Normal [facility] Comment on above: Performed By: #### C DAMIAN #### [facility] [address] [address] [address] Nic Marie NRBC Normal [facility] Comment on above: Performed By: #### C DAMIAN #### [facility] [address] [address] [address] Nic Marie PLT 347 103/ul Normal 150-450 [facility] Comment on above: Performed By: #### C DAMIAN #### [facility] [address] [address] [address] Nic Marie RBC 5.40 106/ul Normal 4.70-6.10 [facility] Comment on above: Performed By: #### C DAMIAN #### [facility] [address] [address] [address] Nic Marie RDW 22.2 % Critically high 11.0-15.0 [facility] Comment on above: Performed By: #### C DAMIAN #### [facility] [address] [address] [address] Nic Marie SEG # 12.56 103/ul Critically high 1.40-6.50 [facility] Comment on above: Performed By: #### C SHUMAN #### [facility] [address] [address] [address] Nic Marie SEG % 86.0 % Critically high 43.0-75.0 [facility] Comment on above: Performed By: #### C SHUMAN #### [facility] [address] [address] [address] Nic Marie WBC 14.6 103/ul Critically high 4.0-11.0 [facility] Comment on above: Performed By: #### C DAMIAN #### [facility] [address] [address] [address] Nic Marie GLYCOHEMOGLOBIN A1Con 2021 ADA RECOMMENDATION ADA THERAPEUTIC TARG ET 6.0 - 7.0 ACTION SUGGESTED > 7.0 Normal [facility] Comment on above: Performed By: #### A 1C #### [facility] [address] [place] [address] Dr. Nic Marie Glucose [Mass/Vol] 171 mg/dL Normal [facility] Comment on above: Performed By: #### A 1C #### [facility] [address] [address] [address] Nic Marie HbA1c (Bld) [Mass fraction] 7.6 % Critically high <=6.0 [facility] Comment on above: Performed By: #### A 1C #### [facility] [address] [place] [address] Dr. Nic Marie LIPID PROFILEon 05-04-2021 CHOL-HDL RATIO NORM SEE BELOW Normal [facility] Comment on above: Result Comment: 3.3 - 4.4 LOW RISK 4.4 - 7.1 AVERAGE RISK 7.1 - 11.0 MODERATE RISK >11.0 HIGH RISK Performed By: #### L IPID, TSH, MG, CMP #### [facility] [address] [address] [address] Nic Marie Cholesterol [Mass/Vol] 97 mg/dL Normal <=200 [facility] Comment on above: Performed By: #### L IPID, TSH, MG, CMP #### [facility] [address] [address] [address] Nic Marie Cholesterol in HDL [Mass/Vol] 34 mg/dL Normal [facility] Comment on above: Performed By: #### L IPID, TSH, MG, CMP #### [facility] [address] [address] [address] Nic Marie Cholesterol in LDL [Mass/Vol] 49.2 mg/dL Normal [facility] Comment on above: Performed By: #### L IPID, TSH, MG, CMP #### [facility] [address] [address] [address] Nic Marie Cholesterol.total/Ch olesterol in HDL [Mass ratio] 2.9 {ratio} Normal [facility] Comment on above: Performed By: #### L IPID, TSH, MG, CMP #### [facility] [address] [address] [address] Nic Marie HDL NORMAL > or = 60 mg/dl - LO W CARDIOVASCULAR RISK <40 mg/dl - HIGH CARDIOVASCULAR RISK Normal [facility] Comment on above: Performed By: #### L IPID, TSH, MG, CMP #### [facility] [address] [address] [address] Nic Marie LDL CALC NORMAL SEE BELOW Normal [facility] Comment on above: Result Comment: <100 mg/dl OPTIMAL 100 - 129 mg/dl NEAR OR ABOVE OPTIMAL 130 - 159 mg/dl BORDERLINE HIGH 160 - 189 mg/dl HIGH >190 mg/dl VERY HIGH Performed By: #### L IPID, TSH, MG, CMP #### [facility] [address] [address] [address] Nic Marie Triglyceride [Mass/Vol] 69 mg/dL Normal <=150 [facility] Comment on above: Performed By: #### L IPID, TSH, MG, CMP #### [facility] [address] [address] [address] Nic Marie VLDL CALC 13.8 mg/dL Normal [facility] Comment on above: Performed By: #### L IPID, TSH, MG, CMP #### [facility] [address] [address] [address] Nic Marie MAGNESIUMon 05-04-2021 Magnesium [Mass/Vol] 1.6 mg/dL Normal 1.6-2.3 [facility] Comment on above: Performed By: #### L IPID, TSH, MG, CMP #### [facility] [address] [place] [address] Dr. Nic Marie PROF 14(COMP METB)on 022 Albumin [Mass/Vol] 3.8 g/dL Normal 3.5-5.0 [facility] Comment on above: Performed By: #### L IPID, TSH, MG, CMP #### [facility] [address] [place] [address] Dr. Nic Marie Albumin/Globulin [Mass ratio] 1.0 {ratio} Normal [facility] Comment on above: Performed By: #### L IPID, TSH, MG, CMP #### [facility] [address] [place] [address] Dr. Nic Marie ALP [Catalytic activity/Vol] 69 U/L Normal 38-126 [facility] Comment on above: Performed By: #### L IPID, TSH, MG, CMP #### [facility] [address] [place] [address] Dr. Nic Marie ALT [Catalytic activity/Vol] 26 U/L Normal 21-72 [facility] Comment on above: Performed By: #### L IPID, TSH, MG, CMP #### [facility] [address] [place] [address] Dr. Nic Marie Anion gap [Moles/Vol] 8.5 mmol/L Normal [facility] Comment on above: Performed By: #### L IPID, TSH, MG, CMP #### [facility] [address] [place] [address] Dr. Nic Marie AST [Catalytic activity/Vol] 16 U/L Critically low 17-59 [facility] Comment on above: Performed By: #### L IPID, TSH, MG, CMP #### [facility] [address] [place] [address] Dr. Nic Marie Bilirubin [Mass/Vol] 0.7 mg/dL Normal 0.2-1.3 [facility] Comment on above: Performed By: #### L IPID, TSH, MG, CMP #### [facility] [address] [place] [address] Dr. Nic Marie Calcium [Mass/Vol] 9.4 mg/dL Normal 8.4-10.2 [facility] Comment on above: Performed By: #### L IPID, TSH, MG, CMP #### [facility] [address] [place] [address] Dr. Nic Marie Chloride [Moles/Vol] 104 mmol/L Normal 98-107 [facility] Comment on above: Performed By: #### L IPID, TSH, MG, CMP #### [facility] [address] [place] [address] Dr. Nic Marie CO2 [Moles/Vol] 30.9 mmol/L Critically high 22.0-30.0 [facility] Comment on above: Performed By: #### L IPID, TSH, MG, CMP #### [facility] [address] [place] [address] Dr. Nic Marie Creatinine [Mass/Vol] 1.03 mg/dL Normal 0.66-1.25 [facility] Comment on above: Performed By: #### L IPID, TSH, MG, CMP #### [facility] [address] [place] [address] Dr. Nic Marie EGFR-AF MICRONESIAN >60 Normal >=60 [facility] Comment on above: Performed By: #### L IPID, TSH, MG, CMP #### [facility] [address] [place] [address] Dr. Nic Marie EGFR-NON AF MICRONESIAN >60 Normal >=60 [facility] Comment on above: Performed By: #### L IPID, TSH, MG, CMP #### [facility] [address] [place] [address] Dr. Nic Marie Globulin (S) [Mass/Vol] 3.7 g/dL Normal [facility] Comment on above: Performed By: #### L IPID, TSH, MG, CMP #### [facility] [address] [place] [address] Dr. Nic Marie Glucose [Mass/Vol] 121 mg/dL Critically high 74-106 [facility] Comment on above: Performed By: #### L IPID, TSH, MG, CMP #### [facility] [address] [place] [address] Dr. Nic Marie Potassium [Moles/Vol] 4.4 mmol/L Normal 3.4-5.0 [facility] Comment on above: Performed By: #### L IPID, TSH, MG, CMP #### [facility] [address] [place] [address] Dr. Nic Marie Protein [Mass/Vol] 7.5 g/dL Normal 6.1-8.2 [facility] Comment on above: Performed By: #### L IPID, TSH, MG, CMP #### [facility] [address] [place] [address] Dr. Nic Marie Sodium [Moles/Vol] 139 mmol/L Normal 137-145 [facility] Comment on above: Performed By: #### L IPID, TSH, MG, CMP #### [facility] [address] [place] [address] Dr. Nic Marie Urea nitrogen [Mass/Vol] 21.0 mg/dL Critically high 9.0-20.0 [facility] Comment on above: Performed By: #### L IPID, TSH, MG, CMP #### [facility] [address] [place] [address] Dr. Nic Marie Urea nitrogen/Creatinine [Mass ratio] 20.4 mg/mg Normal [facility] Comment on above: Performed By: #### L IPID, TSH, MG, CMP #### [facility] [address] [place] [address] Dr. Nic Marie TSHon 05-04-2021 TSH 1.553 uIU/mL Normal 0.470-4.680 [facility] Comment on above: Performed By: #### L IPID, TSH, MG, CMP #### [facility] [address] [place], [place] [address] Dr. Nic Marie TSH RANGE SEE BELOW Normal [facility] Comment on above: Result Comment: <0.3 4 UIU/ml HYPERTHYROID 0.34-5.60 UIU/ml EUTHYROID >5.60 UIU/ml HYPOTHYROID Performed By: #### L IPID, TSH, MG, CMP #### [facility] [address] [place], [place] [address] Dr. Nic Marie Cardiovascular Lab Reporton 08-03-2020 Cardiovascular Lab Report [facility] Patient Name: [facility] Khadar Smart MR #: [id number] Department of Physician: Alexa Campbell M.D. Division of Service Date: 08/03/2020 Cardiology Birthdate: 1940 Adult Cardiovascular Room #: [facility] [address] [place], [place] [address] Cardiovascular Laboratory Report FINAL IMPRESSIONS: 1. Severe stenoses of the right coronary artery successfully treated by balloon angioplasty and drug-eluting stent placement. 2. Mild disease of the left anterior descending and left circumflex coronary artery. 3. Moderately reduced global left ventricular systolic function by noninvasive imaging. 4. Moderately elevated right-sided heart pressures and severely elevated pulmonary capillary wedge pressure consistent with biventricular congestive heart failure. 5. Low normal cardiac output/cardiac index. RECOMMENDATIONS: 1. Aspirin 81 mg daily for 1 month. 2. Plavix 75 mg daily for a minimum of 6 months. 3. To reduce the risk of bleeding on triple therapy, will discontinue aspirin after 1 month and continue with Plavix and Xarelto only. 4. Aggressive cardiovascular risk factor modification. 5. Guideline directed medical therapy for coronary artery disease should include high intensity statin therapy; we will switch simvastatin to atorvastatin 80 mg a day, a beta kendy, and an angiotensin receptor kendy. 6. A basic metabolic panel will be checked 3 days after increasing his Lasix to 40 mg p.o. b.i.d. 7. Lasix will subsequently be decreased to 20 mg p.o. b.i.d. 8. Further management for his atrial fibrillation as clinically appropriate; his cardiomyopathy is likely a mix of ischemic and nonischemic etiology. 9. Follow up with Dr. Flanagan in the next 1 to 2 months. 10. Follow up with Dr. Sahu as scheduled. PROCEDURES: Ultrasound-guided access of right internal jugular vein, right heart catheterization, access to the left radial artery, bilateral selective coronary angiography, percutaneous balloon angioplasty and Synergy drug-eluting stent placement of the right coronary artery. METHODS: After risks, benefits, and alternatives were explained, written informed consent was obtained. The patient was prepped and draped in usual sterile fashion over the right neck and left wrist. Using 1% lidocaine solution, local infiltration anesthesia was achieved. Using a modified Seldinger technique and under ultrasound guidance access to the right internal jugular vein was obtained. A 6-Somali x 11 cm sheath was inserted without difficulty. A Bedolla catheter was used for right heart catheterization measuring pressures in the right atrium, right ventricle, pulmonary artery, and pulmonary capillary wedge positions. Oxygen saturations were obtained and cardiac output/cardiac index was calculated using the Cristobal principle. The Bedolla catheter was removed. The jugular sheath was removed with application of manual pressure to achieve optimal hemostasis. Local infiltration anesthesia was achieved over the left wrist. A micropuncture kit was used to access the left radial artery. A 6-Somali glide sheath was inserted without difficulty. Bilateral selective coronary angiography was performed using JR4 and JL4 catheters. After reviewing the images, it was elected to proceed with an interventional procedure. A 6-Somali JR4 guide catheter was advanced over J-wire and coaxially engaged into the right coronary ostium. A 0.014 Runthrough NS wire was advanced through the catheter across the suspect stenosis and positioned distally. Balloon angioplasty was performed using a 2.5 x 15 mm noncompliant balloon. An inadequate result was treated using a 3.5 x 38 mm and a 3.5 x 12 mm Synergy stents from proximal to distal with attention paid to ensure overlap of stent margins. Postdilation was performed using a 3.5 x 15 mm noncompliant balloon. Repeat imaging showed an optimal result. The wire was removed. Final images showed EZIO-3 flow with no dissection, thrombus, or distal wire trauma. At this juncture it was elected to conclude the procedure. All catheters were removed. The radial sheath was removed with application of a TR band per protocol to achieve optimal hemostasis. Overall, the patient tolerated the procedure well. There were no overt complications. He was to be transferred to the holding area in stable condition. FINDINGS: Hemodynamics. RA 15. RV 52/10. PA 52 26 (37). PCWP 31. TPG 6. AO 146/73. Cardiac output 4.58/cardiac index 2.35. AO sat 96%/PA sat 55%. LEFT VENTRICULOGRAPHY: This was not performed. Ejection fraction is 36% by MUGA scan. CORONARY ARTERIES: Left main coronary artery: This arises from the left coronary cusp. It bifurcates into the left anterior descending and left circumflex coronary artery. It is free of significant stenosis. (more content not included)... Normal [facility] Vital Signs Date Time Vital Sign Value Performing Clinician Janes gautam 10-13-2022 09:35-0400 Blood Pressure Location Yousuf MARTIN [facility] 10-13-2022 09:35-0400 Diastolic blood pressure 78 mm[Hg] Yousuf MARTIN [facility] 10-13-2022 09:35-0400 Heart rate 69 /min Yousuf MARTIN [facility] 10-13-2022 09:35-0400 Respiratory rate 16 /min Yousuf MARTIN [facility] 10-13-2022 09:35-0400 Systolic blood pressure 132 mm[Hg] Yousuf MARTIN [facility] Encounters Encounter Date Encounter Type Care Provider Facility Start: 10-19-2023 ambulatory Yousuf Flemingi ty:ALYSA Clute Start: 03-29-2023 End: 03-29-2023 ambulatory JACKY [facility] Start: 02-23-2023 End: 02-23-2023 ambulatory KELY BORDEN Not Available Start: 10-23-2022 End: 10-23-2022 ambulatory RAMYA [facility] Start: 10-17-2022 End: 10-18-2022 ambulatory Yousuf MARTIN Facility:[facility] Start: 10-17-2022 End: 10-17-2022 Patient encounter procedure Yousuf MARTIN [facility] Start: 10-13-2022 End: 10-14-2022 ambulatory Yousuf MARTIN Facility:[facility] Start: 10-13-2022 End: 10-14-2022 ambulatory Yousuf MARTIN Facility:[facility] Start: 10-13-2022 End: 10-13-2022 Patient encounter procedure Yousuf MARTIN [facility] Start: 04-20-2022 End: 04-21-2022 ambulatory ABBAK العلي Facility: Start: 04-07-2022 End: 04-07-2022 ambulatory BABAK العلي [facility] Start: 10-25-2021 End: 10-26-[address] RAMYA FLANAGAN Facility:[facility] Start: 05-04-2021 End: 05-05-2021 ambulatory BABAK العلي Facility: Start: 08-03-2020 End: 08-04-2020 ambulatory RAMYA FLANAGAN Facility:[facility] Procedures Date Procedure Procedure Detail Performing Clinician Start: 04-20-2022 PSA screening BABAK RED Comment on above: Performed By: #### P SAD #### [facility] [address] [place] [address] Dr. Nic Marie Start: 08-03-2020 Placement of stent i n cardiac conduit Yousuf MARTIN carotid endarderectomy Frandy MARTIN History of hernia repair Tonia MARTIN Operative procedure on coronary artery Yousuf MARTIN Immunizations Immunization Date Immunization Notes Care Provider Fa kathleen 03-05-2020 SARS-CoV-2 (COVID-19 ) mRNA-1273 vaccine Yousuf MARTIN [facility] Comment on above: Result Comment: pt h as had 3 shots to date but does not know the dates NEGATED: Highlighted row has not occurred!04-23-2020 influenza virus vaccine, unspecified formulation Yousuf MARTIN [facility] Payers Date Payer Category Payer Medicare [id number] 1940 Unknown [id number] 2.16.8 [id number] 1940 Unknown [id number] 2.16.84 [id number] 1940 Unknown [id number] 2.16.84 [id number] 1940 Unknown [id number] 2.16.84 [id number] 1940 Unknown [id number] 2.16.84 [id number] 1940 Unknown [id number] 2.16.8 [id number] 1940 Unknown [id number] 2.16.8 [id number] 1940 Unknown [id number] 2.16.8 [id number] 1940 Unknown [id number] 2.16.8 [id number] 1940 Unknown [id number] Private Health Insurance [employer] Social History Date Type Detail Facility Start: 04-25-2019 Tobacco smoking status Ex-smoker (fi nding) [facility] Sex Assigned At Male [facility] Functional Status Date Assessment Result Facility 10-13-2022 Functional Status N/A [facility] Clinical Notes 04-13-2020 to 03-29-2023 Note Date & Type Note Facility 03-29-2023 Note Cardiovascular Medic in[facility] SUBJECTIVE Chief Complaint Patient presents with Telehealth Audio/video Visit Congestive Heart Failure Coronary Artery Disease Hypertension Atrial Fibrillation Khadar Ramos is a 83 y.o. male is being evaluated today for routine follow-up. Congestive Heart Failure His past medical history is significant for CAD. Coronary Artery Disease His past medical history is significant for CHF. Hypertension Atrial Fibrillation Past medical history includes atrial fibrillation, CAD and CHF. PMHx: systolic heart failure, CAD, HTN, a.fib He stays active. [place] so he's always doing maintenance. He gets some leg swelling at the end of the day. This resolves by the AM. Denies c/o CP, dyspnea, orthopnea, PND, dizziness/LH, palpitations, syncope. 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) Glycosuria Gross hematuria Hypertension Nocturia Primary open angle glaucoma (POAG) of both eyes, mild stage Prostatitis Renal cyst Right hydrocele Past Medical History: Diagnosis Date Atrial fibrillation (CMS/HCC) CHF (congestive heart failure) (CMS/HCC) Coronary artery disease Diabetes mellitus (CMS/HCC) Hyperkalemia Hyperlipidemia Hypertension Family History Problem Relation Name Age of Onset Other (cardiac arrest) Father Coronary artery disease Brother Other (CABG) Brother Social History Tobacco Use Smoking status: Former Types: Cigarettes Smokeless tobacco: Never Substance Use Topics Alcohol use: Not Currently No Known Allergies ROS Cardiovascular: Positive for leg swelling (resolves by morning). Musculoskeletal: Positive for arthritis and joint pain. All other systems reviewed and are negative. OBJECTIVE Visit Vitals BP 132/72 (BP Location: Right arm, Patient Position: Sitting) Pulse 81 Ht 1.702 m (5' 7 ) Wt 73 kg (161 lb) SpO2 93% BMI 25.22 kg/m??? Smoking Status Former BSA 1.86 m??? Medications: Current Outpatient Medications: amLODIPine-benazepriL (Lotrel) 10-20 mg capsule, amlodipine 10 mg-benazepril 20 mg capsule, Disp: , Rfl: atorvastatin (Lipitor) 80 mg tablet, Take 80 mg by mouth at bedtime., Disp: , Rfl: carvedilol (Coreg) 12.5 mg tablet, Take 1 tablet (12.5 mg) by mouth with breakfast and with evening meal., Disp: 60 tablet, Rfl: 2 empagliflozin (Jardiance) 10 mg, Take 1 tablet (10 mg) by mouth in the morning., Disp: 30 tablet, Rfl: 2 ferrous sulfate 325 (65 Fe) MG tablet, Take 1 tablet by mouth in the morning., Disp: , Rfl: furosemide (Lasix) 20 mg tablet, Take 20 mg by mouth in the morning., Disp: , Rfl: glimepiride (Amaryl) 4 mg tablet, Take 4 mg by mouth before breakfast., Disp: , Rfl: metFORMIN (Glucophage) 500 mg tablet, Take 500 mg by mouth with breakfast and with evening meal., Disp: , Rfl: pantoprazole (ProtoNix) 40 mg EC tablet, pantoprazole 40 mg tablet,delayed release, Disp: , Rfl: rivaroxaban (Xarelto) 20 mg tablet, Xarelto 20 mg tablet, Disp: , Rfl: Physical Exam - telephone visit. No audible distress heard over the phone. Labs: Legacy Encounter on 08/03/2020 Component Date Value Ref Range Status Ventricular Rate 08/03/2020 108 BPM Final Atrial Rate 08/03/2020 110 BPM Final QRS DURATION 08/03/2020 122 ms Final QT Interval 08/03/2020 320 ms Final QTC CALCULATION(BAZETT) 08/03/2020 428 ms Final R-Bradford 08/03/2020 -82 degrees Final T Wave Bradford 08/03/2020 51 degrees Final Diagnosis 08/03/2020 Final Value:Atrial fibrillation with rapid ventricular response with premature ventricular or aberrantly conducted complexes Left axis deviation Right bundle branch block Inferior infarct (cited on or before 03-AUG-2020) Abnormal ECG When compared with ECG of 03-AUG-2020 09:18, Previous ECG has undetermined rhythm, needs review QT has shortened Confirmed by Wilbert PATEL., L.S. (2) on 08/03/2020 1:51:38 PM No results found for: EXTCMP , BMPR1A , CBCDIF , BNP , LASAP , RED 09/23/2022 Cr 1.08, BUN 25, eGFR >60 10/25/21 bun 30 Cr 1.18, K= 4.2 normal Testing/Procedures: ECHO 03/19/2023 Mild concentric LV hypertrophy with normal systolic function, LVEF 55-60% Moderately dilated RV with preserved systolic function Severe biatrial dilatation Moderate tricuspid regurg Mild to moderate MR Patient appears to be in a.fib during exam 06/10/2020 Echo ASSESSMENT/PLAN: Diagnoses and all orders for this visit: Chronic systolic (more content not included)... [facility] 03-29-2023 Note Patient being seen v ia telemedicine today for 5 mo follow up hypertension, afib, CAD, and systolic heart failure. He had echo last week. He is doing very well. Denies chest pain, SOB, palpitations, lightheadedness/syncope and bleeding on Xarelto. Review of Systems Cardiovascular: Positive for leg swelling (resolves by morning). Musculoskeletal: Positive for arthritis and joint pain. All other systems reviewed and are negative. [facility] 10-23-2022 Note [facility] Cardiology Clinic Note Chief Complaint: Patient here for 6 mo follow up hypertension, afib, CAD, and systolic heart failure. He was seen in [facility] ED last month for hematuria. Plavix was stopped. He only had hematuria that one day in the ED. Denies chest pain, SOB, and palpitations. Doing very well. HPI: Khadar Ramos is a 82 y.o. male With a history of coronary artery disease, atrial fibrillation, recent hematuria here in follow-up He is doing well. He has no new complaints. Cardiology ROS: Review of Systems Musculoskeletal: Positive for arthritis and joint pain. All other systems reviewed and are negative. Past Medical History He has a past medical history of Atrial fibrillation (CMS/HCC), CHF (congestive heart failure) (CMS/HCC), Coronary artery disease, Diabetes mellitus (CMS/HCC), Hyperkalemia, Hyperlipidemia, and Hypertension. Surgical History He has a past surgical history that includes Carotid endarterectomy; Hernia repair; and Cardiac catheterization. Social History He reports that he has quit smoking. His smoking use included cigarettes. He has never used smokeless tobacco. He reports that he does not currently use alcohol. No history on file for drug use. Family History Family History Problem Relation Name Age of Onset Other (cardiac arrest) Father Coronary artery disease Brother Other (CABG) Brother Allergies Patient has no known allergies. Medications Current Outpatient Medications: amLODIPine-benazepriL (Lotrel) 10-20 mg capsule, amlodipine 10 mg-benazepril 20 mg capsule, Disp: , Rfl: aspirin 81 mg EC tablet, Take 1 tablet by mouth in the morning., Disp: , Rfl: atorvastatin (Lipitor) 80 mg tablet, Take 80 mg by mouth at bedtime., Disp: , Rfl: carvedilol (Coreg) 12.5 mg tablet, carvedilol 12.5 mg tablet, Disp: , Rfl: carvedilol (Coreg) 12.5 mg tablet, Take 1 tablet (12.5 mg) by mouth with breakfast and with evening meal., Disp: 60 tablet, Rfl: 2 carvedilol (Coreg) 3.125 mg tablet, carvedilol 3.125 mg tablet, Disp: , Rfl: carvedilol (Coreg) 6.25 mg tablet, Take 1 tablet twice a day by oral route., Disp: , Rfl: cinnamon 500 mg capsule, Take 1,000 mg by mouth in the morning., Disp: , Rfl: clopidogrel (Plavix) 75 mg tablet, Take 1 tablet (75 mg) by mouth once daily as directed., Disp: 90 tablet, Rfl: 3 clopidogrel (Plavix) 75 mg tablet, Take 1 tablet by mouth in the morning., Disp: , Rfl: empagliflozin (Jardiance) 10 mg, Take 1 tablet (10 mg) by mouth in the morning., Disp: 30 tablet, Rfl: 2 ferrous sulfate 325 (65 Fe) MG tablet, in the morning., Disp: , Rfl: ferrous sulfate 325 (65 Fe) MG tablet, Take 1 tablet by mouth in the morning., Disp: , Rfl: furosemide (Lasix) 20 mg tablet, Take 20 mg by mouth in the morning., Disp: , Rfl: glimepiride (Amaryl) 2 mg tablet, Take 2 mg by mouth in the morning., Disp: , Rfl: glimepiride (Amaryl) 4 mg tablet, Take 4 mg by mouth in the morning and at bedtime., Disp: , Rfl: glimepiride (Amaryl) 4 mg tablet, Take 1 tablet by mouth twice a day., Disp: , Rfl: Jardiance 10 mg, , Disp: , Rfl: latanoprost (Xalatan) 0.005 % ophthalmic solution, Administer 1 drop into both eyes., Disp: , Rfl: latanoprost (Xalatan) 0.005 % ophthalmic solution, Administer 1 drop into both eyes at bedtime., Disp: , Rfl: levoFLOXacin (Levaquin) 500 mg tablet, Take 1 tablet by mouth in the morning., Disp: , Rfl: levoFLOXacin (Levaquin) 500 mg tablet, 1 (one) time each day at the same time., Disp: , Rfl: losartan (Cozaar) 25 mg tablet, Take 1 tablet by mouth in the morning., Disp: , Rfl: metFORMIN (Glucophage) 500 mg tablet, Take 500 mg by mouth with breakfast and with evening meal., Disp: , Rfl: metFORMIN (Glucophage) 500 mg tablet, Take 1 tablet by mouth twice a day., Disp: , Rfl: metoprolol succinate XL (Toprol-XL) 50 mg 24 hr tablet, Take 50 mg by mouth in the morning., Disp: , Rfl: mometasone (Elocon) 0.1 % cream, 1 Application., Disp: , Rfl: multivitamin capsule, Take 1 capsule by mouth in the morning., Disp: , Rfl: omega-3 (Fish OiL) 300-1,000 mg capsule, 1 capsule., Disp: , Rfl: OneTouch Ultra Test strip, USE TO TEST BLOOD SUGAR DAILY *DX E11.9*, Disp: , Rfl: pantoprazole (ProtoNix) 40 mg EC tablet, pantoprazole 40 mg tablet,delayed release, Disp: , Rfl: pantoprazole (ProtoNix) 40 mg EC tablet, Take 1 tablet by mouth in the morning., Disp: , Rfl: rivaroxaban (Xarelto) 20 mg tablet, Xarelto 20 mg tablet, Disp: , Rfl: simvastatin (Zocor) 20 mg tablet, 1 (one) time each day at the same time., Disp: , Rfl: Last Recorded Vitals BP 130/80 (BP Location: Left arm, Patient Position: Sitting) Pulse 91 Ht 1.702 m (5' 7 ) Wt 76.7 kg (169 lb) SpO2 91% BMI 26.47 kg/m??? Physical Examination: GENERAL: alert and oriented x3, well developed, in no acute distress. HEAD: atraumatic, normocephalic. EYES: ZACHERY, EOMI. NECK: trachea midline, no JVD present, no carotid bruits present. (more content not included)... [facility] 10-17-2022 Note [id number] [facility] 10-17-2022 Note Custom Cystoscopy ? Voiding after the procedure: there may be some pain, burning, urgency, frequency and blood tinged urine following the procedure. These symptoms usually resolve within 2-5 days. Drink the amount of fluid it takes to keep the urine pink to yellow or clear in color. Drinking enough water and fluids will help to ease any discomfort after your procedure. ? If you are having problems that seem out of the ordinary, please call. ? If unable to contact your physician and you feel it is an emergency, go to the nearest emergency room or call 911 ? Diet ? you may resume your normal diet. ? Activity ? you may resume your normal activities ? Call if you have a fever over 100 degrees. [facility] 10-17-2022 Hospital Discharge instructions Patient Education 10/17/2022 10:18:04 [facility] - Cystoscopy Discharge Instructions (CUSTOM) Cystoscopy Voiding after the procedure: there may be some pain, burning, urgency, frequency and blood tinged urine following the procedure. These symptoms usually resolve within 2-5 days. Drink the amount of fluid it takes to keep the urine pink to yellow or clear in color. Drinking enough water and fluids will help to ease any discomfort after your procedure. If you are having problems that seem out of the ordinary, please call. If unable to contact your physician and you feel it is an emergency, go to the nearest emergency room or call 911 Diet you may resume your normal diet. Activity you may resume your normal activities Call if you have a fever over 100 degrees. Follow Up Care 10/13/2022 11:04:22 With:Yousuf MARTIN Address: [facility] [address] [place] [address]- Business (1) When: Unknown Comments:Office will call to schedule follow up [facility] 10-13-2022 Hospital Discharge instructions Patient Education 10/13/2022 10:50:01 Benign Prostatic Hyperplasia Benign Prostatic Hyperplasia Benign prostatic hyperplasia (BPH) is an enlarged prostate gland that is caused by the normal aging process. The prostate may get bigger as a man gets older. The condition is not caused by cancer. The prostate is a walnut-sized gland that is involved in the production of semen. It is located in front of the rectum and below the bladder. The bladder stores urine. The urethra carries stored urine out of the body. An enlarged prostate can press on the urethra. This can make it harder to pass urine. The buildup of urine in the bladder can cause infection. Back pressure and infection may progress to bladder damage and kidney (renal) failure. What are the causes? This condition is part of the normal aging process. However, not all men develop problems from this condition. If the prostate enlarges away from the urethra, urine flow will not be blocked. If it enlarges toward the urethra and compresses it, there will be problems passing urine. What increases the risk? This condition is more likely to develop in men older than 50 years. What are the signs or symptoms? Symptoms of this condition include: Getting up often during the night to urinate. Needing to urinate frequently during the day. Difficulty starting urine flow. Decrease in size and strength of your urine stream. Leaking (dribbling) after urinating. Inability to pass urine. This needs immediate treatment. Inability to completely empty your bladder. Pain when you pass urine. This is more common if there is also an infection. Urinary tract infection (UTI). How is this diagnosed? This condition is diagnosed based on your medical history, a physical exam, and your symptoms. Tests will also be done, such as: A post-void bladder scan. This measures any amount of urine that may remain in your bladder after you finish urinating. A digital rectal exam. In a rectal exam, your health care provider checks your prostate by putting a lubricated, gloved finger into your rectum to feel the back of your prostate gland. This exam detects the size of your gland and any abnormal lumps or growths. An exam of your urine (urinalysis). A prostate specific antigen (PSA) screening. This is a blood test used to screen for prostate cancer. An ultrasound. This test uses sound waves to electronically produce a picture of your prostate gland. Your health care provider may refer you to a specialist in kidney and prostate diseases (urologist). How is this treated? Once symptoms begin, your health care provider will monitor your condition (active surveillance or watchful waiting). Treatment for this condition will depend on the severity of your condition. Treatment may include: Observation and yearly exams. This may be the only treatment needed if your condition and symptoms are mild. Medicines to relieve your symptoms, including: ?Medicines to shrink the prostate. ?Medicines to relax the muscle of the prostate. Surgery in severe cases. Surgery may include: ?Prostatectomy. In this procedure, the prostate tissue is removed completely through an open incision or with a laparoscope or robotics. ?Transurethral resection of the prostate (TURP). In this procedure, a tool is inserted through the opening at the tip of the penis (urethra). It is used to cut away tissue of the inner core of the prostate. The pieces are removed through the same opening of the penis. This removes the blockage. ?Transurethral incision (TUIP). In this procedure, small cuts are made in the prostate. This lessens the prostate's pressure on the urethra. ?Transurethral microwave thermotherapy (TUMT). This procedure uses microwaves to create heat. The heat destroys and removes a small amount of prostate tissue. ?Transurethral needle ablation (TUNA). This procedure uses radio frequencies to destroy and remove a small amount of prostate tissue. ?Interstitial laser coagulation (ILC). This procedure uses a laser to destroy and remove a small amount of prostate tissue. ?Transurethral electrovaporization (TUVP). This procedure uses electrodes to destroy and remove a small amount of prostate tissue. ?Prostatic urethral lift. This procedure inserts an implant to push the lobes of the prostate away from the urethra. Follow these instructions at home: Take eisn-vis-cjgocnd and prescription medicines only as told by your health care provider. Monitor your symptoms for any changes. Contact your health care provider with any changes. Avoid drinking large amounts of liquid before going to bed or out in public. Avoid or reduce how much caffeine or alcohol you drink. Give yourself time when you urinate. Keep all follow-up visits. This is important. Contact a health care provider if: You have unexplained back pain. Your symptoms do not get better with treatment. You develop side effects from the medicine you are taking. Your urine becomes very dark or has a bad smell. Your lower abdomen becomes distended and you have trouble passing urine. Get help right away if: You have a fever or chills. You suddenly cannot urinate. You feel light-headed or very dizzy, or you faint. There are large amounts of blood or clots in your urine. Your urinary problems become hard to manage. You develop moderate to severe low back or flank pain. The flank is the side of your body between the ribs and the hip. These symptoms may be an emergency. Get help right away. Call 911. Do not wait to see if the symptoms will go away. Do not drive yourself to the hospital. Summary Benign prostatic hyperplasia (BPH) is an enlarged prostate that is caused by the normal aging process. It is not caused by cancer. An enlarged prostate can press on the urethra. This can make it hard to pass urine. This condition is more likely to develop in men older than 50 years. Get help right away if you suddenly cannot urinate. This information is not intended to replace advice given to you by your health care provider. Make sure you discuss any questions you have with your health care provider. Document Revised: 09/07/2021 Document Reviewed: 09/07/2021 [employer] Patient Education 2022 [place]. Follow Up Care 04/25/2021 10:27:16 With:ALFIE WISE, Yousuf Barroso, URL Address: [facility] [address], [place] [address]- When: Unknown Comments:sched Cysto. [facility] 04-07-2022 Note [facility] II Continue GDMT- lipitor, coreg, benazepril Diuretic therapy lasix Currently euvolemic without exacerbation Monitor daily weights, I&O, fluid restriction 1.5-2L/day, renal function and electrolytes- please maintain K+>4 and Mg > 2 [facility] 04-07-2022 Note Continue lipitor [facility] 04-07-2022 Note Coronary artery dise ase is stable- no concerning symptoms continue risk factor modifications- heart healthy diet, regular exercise as tolerated and continue all medications. Continue lipitor, coreg, plavix, [facility] 04-07-2022 Note [id number]- VASc= 5 Remains on Xarelto anticoagualtion Rate remains controlled with coreg. Denied any bleeding tendencies. [facility] 04-07-2022 Note B/P well controlled today 130/80 Continue coreg, amlodipine-benazepril, lasix [facility] 04-07-2022 Note [facility] ESS NOTE HPI: Khadar Ramos is a 82 y.o. male here for Coronary Artery Disease, Congestive Heart Failure, Hypertension, and Atrial Fibrillation Patient here for 6 mo follow up hypertension, CAD, systolic heart failure, and afib. Dr. Flanagan increased his carvedilol to 12.5mg bid at last visit in Oct 2021. He also added Jardiance. Patient tolerated med changes well. Feels great. Denies chest pain, SOB, LE edema, palpitations, and bleeding on Xarelto. Overall states he feels well. Review of Systems Musculoskeletal: Positive for arthritis and joint pain. All other systems reviewed and are negative. Visit Vitals BP 130/80 (BP Location: Left arm, Patient Position: Sitting) Pulse 69 Ht 1.702 m (5' 7 ) Wt 78 kg (172 lb) SpO2 94% BMI 26.94 kg/m??? Smoking Status Former BSA 1.92 m??? No Known Allergies Medications: Current Outpatient Medications on File Prior to Visit Medication Sig Dispense Refill amLODIPine-benazepriL (Lotrel) 10-20 mg capsule amlodipine 10 mg-benazepril 20 mg capsule atorvastatin (Lipitor) 80 mg tablet Take 80 mg by mouth at bedtime. carvedilol (Coreg) 12.5 mg tablet Take 12.5 mg by mouth with breakfast and with evening meal. ferrous sulfate 325 (65 Fe) MG tablet in the morning. furosemide (Lasix) 20 mg tablet Take 20 mg by mouth in the morning. glimepiride (Amaryl) 4 mg tablet Take 4 mg by mouth in the morning and at bedtime. metFORMIN (Glucophage) 500 mg tablet Take 500 mg by mouth with breakfast and with evening meal. pantoprazole (ProtoNix) 40 mg EC tablet pantoprazole 40 mg tablet,delayed release rivaroxaban (Xarelto) 20 mg tablet Xarelto 20 mg tablet [DISCONTINUED] clopidogrel (Plavix) 75 mg tablet Take 75 mg by mouth in the morning. No current facility-administered medications on file prior to visit. Physical Exam: Constitutional: Appearance: Normal appearance. Without apparent distress HENT: Head: Normocephalic and atraumatic. Nose: Nose normal. Mouth/Throat: Mouth: Mucous membranes are moist. Eyes: Extraocular Movements: Extraocular movements intact. Conjunctiva/sclera: Conjunctivae normal. Neck: Vascular: No JVD. Cardiovascular: Rate and Rhythm: Irreg/irreg- rate controlled. Pulses: Dorsalis pedis pulses are 3 on the right side and 3on the left side. Posterior tibial pulses are 3 on the right side and 3 on the left side. Heart sounds: Normal heart sounds, S1 normal and S2 normal. Pulmonary: Effort: Pulmonary effort is normal. Breath sounds: Normal breath sounds. Abdominal: General: Bowel sounds are normal. Palpations: Abdomen is soft. Musculoskeletal: General: Normal range of motion. Cervical back: Normal range of motion. Right lower leg: No edema. Left lower leg: No edema. Skin: General: Skin is warm and dry. Capillary Refill: Capillary refill takes less than 2 seconds. Neurological: General: No focal deficit present. Mental Status: She is alert and oriented to person, place, and time. Psychiatric: Mood and Affect: Mood normal. Behavior: Behavior normal. Thought Content: Thought content normal. Judgment: Judgment normal. Labs: 10/25/21 bun 30 Cr 1.18, K= 4.2 normal Last lab values have been reviewed [facility] Testin06/10/2020 Echo No echocardiogram results found for the past 12 months Assessment/Plan: Benign hypertensive heart disease with heart failure (CMS/HCC) B/P well controlled today 130/80 Continue coreg, amlodipine-benazepril, lasix Atrial fibrillation (CMS/HCC) [id number]- VASc= 5 Remains on Xarelto anticoagualtion Rate remains controlled with coreg. Denied any bleeding tendencies. Coronary atherosclerosis Coronary artery disease is stable- no concerning symptoms continue risk factor modifications- heart healthy diet, regular exercise as tolerated and continue all medications. Continue lipitor, coreg, plavix, Hyperlipidemia Continue lipitor Systolic heart failure (CMS/HCC) [facility] II Continue GDMT- lipitor, coreg, benazepril Diuretic therapy lasix Currently euvolemic without exacerbation Monitor daily weights, I&O, fluid restriction 1.5-2L/day, renal function and electrolytes- please maintain K+>4 and Mg > 2 RTC 6 months- script for routine labs given to pt [facility] 04-07-2022 Note Patient here for 6 m o follow up hypertension, CAD, systolic heart failure, and afib. Dr. Flanagan increased his carvedilol to 12.5mg bid at last visit in Oct 2021. He also added Jardiance. Patient tolerated med changes well. Feels great. Denies chest pain, SOB, LE edema, palpitations, and bleeding on Xarelto. Review of Systems Musculoskeletal: Positive for arthritis and joint pain. All other systems reviewed and are negative. [facility] 04-13-2020 Note Patient Outreach ([facility]) KHADAR RAMOS ([id number]) 1940 M Date Time Provider Department 04/13/20 [facility] During your visit today, we recorded the following information about you: Allergies As of Date: 04/13/2020 (No Known Allergies) Date Reviewed: 06/05/2018 Reviewed by: Rosalie Allen - Fully Assessed Order(s):SARS-COVID VACCINE 1ST DOSE APPT [[id number]] Order #: [id number] FUTURE Prescriptions as of 04/13/2020 Sig: SIMVASTATIN 20 MG TABLET GLIMEPIRIDE 2 MG TABLET Take 2 mg by mouth once daily. IRON 100 PLUS ORAL Take by mouth. METOPROLOL SUCCINATE ER 50 MG* Take 50 mg by mouth once syed* METFORMIN 500 MG TABLET CINNAMON BARK 500 MG CAPSULE Take 1,000 mg by mouth once d* MULTIVITAMIN CAPSULE Take 1 capsule by mouth once * FISH OIL ORAL Take by mouth. AMLODIPINE 10 MG-BENAZEPRIL 2* Take 1 capsule by mouth once * RIVAROXABAN 20 MG TABLET Take 20 mg by mouth once syed* Problem List As Of Date 04/13/2020 Noted Resolved Atrial fibrillation (HCC) [I48.91] 05/28/2014 Hypertension [I10] 05/28/2014 Hyperlipidemia [E78.5] 05/28/2014 Malignant neoplasm of prostate (HCC) [C61] 07/01/2014 History of prostate cancer [Z85.46] 06/09/2015 Letter Text Encounter Status:Closed by SAURABH ESPITIAUSEDharmesh on 04/16/20 [facility] Evaluation + Plan note Future Appointments Appointment Date:10/16/2022 10:45:00 AM Scheduled Provider: Location:[facility] Appointment Type:Urology CALL PAT FT Appointment Date:10/17/2022 10:00:00 AM Scheduled Provider: Location:[facility] Appointment Type:Urology FT Diagnostic Tests PendingPSA Total 10/13/22 [facility] Hospital course Narrative No data available for this section [facility] [facility] Progress note No data available for this section [facility] Summary Purpose Family History No Family History Records FoundNo Family History Records FoundNo Family History Records FoundNo Family History Records FoundNo Family History Records FoundNo Family History Records Found Advance Directives No Advanced Directives Records FoundNo Advanced Directives Records FoundNo Advanced Directives Records FoundNo Advanced Directives Records FoundNo Advanced Directives Records FoundNo Advanced Directives Records Found Additional Source Comments (unrecognized sect ion and content) No Status Records FoundNo Status Records FoundNo Status Records FoundNo Status Records FoundNo Status Records FoundNo Status Records Found INFORMATION SOURCE (unrecogn ized section and content) DATE CREATED AUTHOR 08/09/2020 [facility] DATE CREATED AUTHOR AUTHOR'S ORGANIZ ATION 04/04/2021 [facility] DATE CREATED AUTHOR AUTHOR'S ORGANIZ ATION 04/22/2022 [facility] DATE CREATED AUTHOR AUTHOR'S ORGANIZ ATION 12/12/2022 [facility] DATE CREATED AUTHOR AUTHOR'S ORGANIZ ATION 02/24/2023 [facility] DATE CREATED AUTHOR AUTHOR'S ORGANIZ ATION 04/01/2023 [facility] Patient Care team informatio n (unrecognized section and content) Personnel Name: Jsoy Sahu MD Address: Address: [address] [place] [address] Personnel Name: Josy Sahu MD Address: Address: [address] [place] [address] FOR RECORDS PERTAINING TO PATIENTS WHO ARE OR HAVE BEEN ENROLLED IN A CHEMICAL DEPENDENCY/SUBSTANCEABUSE PROGRAM, SOME INFORMATION MAY BE OMITTED. This clinical summary was aggregated from multiple sources. Caution should be exercised in using it in the provision of clinical care. This summary normalizes information from multiple sources, and as a consequence, information in this document may materially change the coding, format and clinical context of patient data. In addition, data may be omitted in some cases. CLINICAL DECISIONS SHOULD BE BASED ON THE PRIMARY CLINICAL RECORDS. [employer] [facility]. provides no warranty or guarantee of the accuracy or completeness of information in this document.
--- NOTE | 2023-04-05 09:35 | RT_ITS ---
[facility] Test Date: 2023-04-05 Pat Name: KHADAR RAMOS Department: Room: - Gender: Male [employer]el [employer] Tester: Evert [place] RRT : 1940 Requested By: Lucrecia Briggs Order Number: [id number] Reading MD: Robert Ponce Interpretive Statements Spirometry was completed according to ATS criteria. Findings were considered accurate and reproducible. No bronchodilator was ordered. No prior studies available for comparison. Spirometry: -FEV1/FVC: Reduced @ 61% -FEV1: Moderately reduced @ 76% -FVC: Normal @ 86% -GZN47-49%: Reduced @ 45% Flow-volume loop: -Moderate obstructive pattern Impressions: -Spirometry is consistent with a a moderate obstructive process, such as asthma or COPD/emphysema. If needed, consider full PFT (spirometry with bronchodilator, plethysmography [lung volumes], and diffusion capacity) for further evaluation. Clinical correlation required. Electronically Signed On 04-11-2023 17:05:45 EST by Robert Ponce
== END 2023-04-05 09:00 | disposition home or self-care (01) ==
LOC: CARD 08:59
PROVIDERS: PCP Family Medicine; Visit Provider Nurse Practitioner Family
DX: I51.7 Cardiomegaly (principal); J43.9 Emphysema, unspecified
CPT/HCPCS: 94010

== ENCOUNTER 2023-06-27 08:17 | Outpatient (OUT) | payer MEDICARE, SELFPAY ==
--- OUTSIDE RECORDS SUMMARY | 2023-06-27 08:41 | XMS_ITS | CCD ---
Author Organization [facility] Care Team Providers Care Provider Relations Coordinator Name Role Phone RAMYA FLANAGAN Attending Unavailable RAMYA FLANAGAN Admitting Unavailable JOSY SAHU Referring Unavailable JOSY SAHU Primary Care Unavailable SEVERIANO, BABAK Admitting Unavailable SEVERIANO, BABAK Consulting Unavailable SEVERIANO, BABAK Attending Unavailable HOY, DR FERRIS Primary Care Unavailable SEVERIANO, BABAK Attending Unavailable SEVERIANO, BABAK Admitting Unavailable SEVERIANO, BABAK Consulting Unavailable NUBIA, DR FERRIS Primary Care Unavailable ELTAHAWY, DR BUI Admitting Unavailable HOY, DR FERRIS Primary Care Unavailable ELTAHAWY, DR BUI Consulting Unavailable ELTAHAWY, DR BUI Attending Unavailable MARTIN, DR KILGORE Admitting Unavailable MARTIN, DR KILGORE Consulting Unavailable MARTIN, DR KILGORE Attending Unavailable HOY, DR FERRIS Primary Care Unavailable Josy Sahu Primary Care Physician [phone] Yousuf MARTIN Attending Unavailable MARTIN, Yousuf Barroso Admitting Unavailable MARTIN, Yousuf Barroso Referring Unavailable MARTIN, Yousuf Barroso Attending Unavailable MARTIN, Yousuf R Admitting Unavailable MARTIN, Yousuf Barroso Attending Unavailable MARTIN, Yousuf Barroso Attending Unavailable ELTAHAWY, RAMYA Attending Unavailable JACKY RUIZ Attending Unavailable KELY BORDEN Attending Unavailable KELY BORDEN Attending Unavailable Medications Current Medications Medication Drug [...] day(s), # 2 tab(s), Refills(s) 0, Pharmacy: [facility]/pharmacy #[id number], 169, cm, 10/13/22 9:51:00 EDT, Height/Length [...] Onset: 03-29-2023 Chronic Congestive heart failure; nonhypertensive (2 sources) Chronic systolic (congestive) heart failure; Translations: [Acute systolic (congestive) heart failure] Onset: 05-06-2021 Chronic Coronary atherosclerosis and other heart disease (1 source) Atherosclerotic heart disease of [place] coronary artery without angina pectoris; Translations: [ASHD YOMBA SHOSHONE CA W/O ANGINA PECTORIS] Onset: 04-21-2022 Chronic Diabetes mellitus without complication (6 sources) [...] hypertrophy with outflow obstruction] Onset: 04-20-2022 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 Please forward results to PCP. Please have him follow-up with PCP for further management or we can refer him to pulmonary. Thanks! Normal [facility] Telephoneon 04-19-2023 Telephone [id number] Khadar Ramos 1940 M Date Provider Department Center 04/19/[address] Family History Problem Relation Age of Onset Other Father Coronary artery disease Brother Other Brother Family Status - Relation Status Age at Father Brother Normal [facility] Telemedicineon 03-29-2023 Telemedicine [id number] Khadar Ramos 1940 M Provider Department Center 03/29/2023 JACKY ESQUIVEL Family History Problem Relation Age of Onset Other Father Coronary artery disease Brother Other Brother Family Status - Relation Status Age at Father Brother Level of Service:[address] [place] OFFICE/OUTPATIENT ESTABLISHED MOD MDM 30 MIN Reason for Visit and Comments: Telehealth Audio/video Visit [871] Congestive Heart Failure [127] Coronary Artery Disease [187] Hypertension [812893] Atrial Fibrillation [80] Normal [facility] Operative Reporton 3 Operative Report Patient: KHADAR RAMOS Age: 82 years Sex: Male : 1940 Associated Diagnoses: None Author: ALFIE WISE, Yousuf Barroso Procedure Operative Information Details: Date/ Time: 10/17/2022 [...] get scheduled for a renal ultrasound.. Normal [facility] Comment on above: Result Comment: Elec tronically Signed By: ALFIE WISE, Yousuf Contreras.br\Date and Time Signed: 11/14/22 13:41 EDT Office Visiton 10-23-2022 Follow-up visit [id number] Khadar Ramos 1940 M Date Provider Department Center 10/23/2022 Cooper-RAMYA FLANAGAN [facility] Family History Problem Relation Age of Onset Other Father Coronary artery disease Brother Other Brother Family Status - Relation Status Age at Father Brother Level of Service:39123 [place] OFFICE/OUTPATIENT ESTABLISHED MOD [facility] 30-39 MIN Normal [facility] RAD - Ultrasound Reporton RAD - Ultrasound Report [id number] D:127 Normal [facility] UroVysion Fish and Urine Cyt o ([facility])on 10-19-2022 UVFISH & UC Diagnosis Info Invalid Interpretation Code [facility] Comment on above: Result Comment: A:Ur ine,Urine:Voided [...] correlated with cytology and cystoscopy results.* CPT 65514, 70792 Microscopic Notes - Microscopic Notes - Abnormal cells 9p21 deletions: Abnormal cells aneploid events: Total cells analyzed: 143 Hematuria: Gross Description Site ID:A color Light Yellow fixative Alcohol Received 80 mls of clear light yellow fluid with the patient's name and, Urine on the vial. Electronically signed by : on: 10/19/2022 19:17:55 Performed By: #### 1 [id number] ####[facility] [address] [place] [address] Consent for Procedure/Surger yon 10-17-2022 Consent for Procedure/Surgery [id number] CD:127 Normal [facility] Consent for Treatmenton 10-03 Consent for Treatment [id number] D:127 Normal [facility] IntraOperative Documentson 0 10-17-2022 IntraOperative Documents [id number] CD:127 Normal [facility] Main OR Intraoperative Recor don 10-17-2022 Main OR Intraoperative Record IntraOp Document Type FTURO Summary Primary Physician: Yousuf MARTIN MD Finalized Date/Time: 10/17/22 10:17:46 Pt. Name: KHADAR RAMOS/Sex: 1940 Male Med Rec #: [id number] Physician: Yousuf MARTIN MD Financial #: [id number] Pt. Type: O Room/Bed: / Admit/Disch: 10/17/22 09:14:00 - Institution: Case Times FTURO Entry 1 Patient Times In Room 10/17/22 10:11:00 Out Room 10/17/22 10:19:00 Procedure Times Start 10/17/22 10:13:00 Stop 10/17/22 10:16:00 Anesthesia Times Last Modified By: Catherine Hermosillo RN 10/17/22 10:17:18 Case Attendance FTURO Entry 1 Entry 2 Entry 3 Case Attendee Yousuf MARTIN MD, RN, Catherine Roque RN, CNOR, Connie Role Performed Surgeon - Primary Electric Bath Attendant - Primary Scrub - Primary Time In [...] Prep Agents Betadine Solution Skin. Condition Intact, [place], Warm, and Dry Additional None Specimens Collected [...] By: Catherine Hermosillo RN 10/17/22 10:17 Normal [facility] Main OR Preoperative Recordo n 10-17-2022 Main OR Preoperative Record Holding Area Document Type FTURO Summary Primary Physician: Yousuf MARTIN MD Finalized Date/Time: 10/17/22 09:29:21 Pt. Name: KHADAR RAMOS/Sex: 1940 Male Med Rec #: [id number] Physician: Yousuf MARTIN MD Financial #: [id number] Pt. Type: O Room/Bed: / Admit/Disch: 10/17/22 09:14:00 - Institution: Case Times Holding FTURO Pre-Care Text: Verifies consent for planned procedure, identifies individual values and wishes concerning care, includes family members in perioperative teaching Secures patient's records' belongings, and valuables, maintains patient's dignity and privacy, and maintains patient confidentiality Entry 1 In Holding 10/17/22 09:27:00 Outcomes Met? Yes Last Modified By: BETTY Roque RN, Ruthann 10/17/22 09:27:59 Post-Care Text: The patient participates [...] RN, Ruthann Document Signatures Signed By: BETTY Rqoue RN, Ruthann 10/17/22 09:29 Normal [facility] Outpatient Surgery Discharge Instructionon 10-17-2022 Outpatient Surgery Discharge Instruction [id number] CD:127 [facility] Insurance Correspondenceon 0 10-13-2022 Insurance Correspondence [id number] CD:127 [facility] Patient Educationon 10-14-19 Patient Education Urology [...] Follow these instructions at home: ? Take gczp-vki-rgwravk and prescription medicines only as told by [...] the medicine (more content not included)... Normal [facility] UroVysion Fish and Urine Cyt o ([facility]4 Labs)on 10-13-2022 [facility] Method of Extraction Bladder Urine Normal [facility] Comment on above: Performed By: #### 1 [id number] ####[facility] [address] [place] [address] [facility] Number of Jars 1 Invalid Interpretation Code [facility] Comment on above: Performed By: #### 1 [id number] ####[facility] [address] [place] [address] [facility] Specimen Urine Normal [facility] Comment on above: Performed By: #### 1 [id number] ####[facility] [address] [place] [address] [facility] Type of Service Technical Only Normal [facility] Comment on above: Performed By: #### 1 [id number] ####[facility] [address] [place] [address] Urology Office/Clinic Noteon 10-13-2022 Urology Office/Clinic Note Chief Complaint Hx of prostate cancer HPI Staff 1 year f/u with PSA. Previous dx of BPH with urinary obstruction, hx of prostate cancer (Brachytherapy 10/2014) and nocturia. Current PSA done 09/23/22 is <0.13 and previous done 04/18/21 was 0.14. Pt saw blood in his urine on September 23 and went to [facility] for it. He states that he only saw it the one day and has not seen it since. 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 He states that he only saw it the one day and has not seen it since. 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 Follow-up With When Contact Information Yousuf MARTIN MD, URL [facility] [address] [place] [address]- Additional Instructions: sched Cysto. Patient Education Benign Prostatic Hyperplasia I, Guerda Negrete , personally scribed for Dr. Martin on 10/13/2022 10:50:40. . Documentation recorded by the scribeGuerda, accurately reflects the services(s) I performed and [...] (08/2020), carotid end (more content not included)... Normal [facility] Comment on above: Result Comment: Elec tronically Signed By: Yousuf MARTIN MD\.br\Date and Time Signed: 10/13/22 10:52 EDT\.br\Electronically Co-Signed By: Guerda Negrete\.br\Date and Time Co-Signed: 10/13/22 10:50 EDT\.br\Electronically Co-Signed By: Guerda Negrete\.br\Date and Time Co-Signed: 10/13/22 10:51 EDT Lab Reportson 10-02-2022 Lab Reports [id number] D:127 [facility] Provider Letteron 07-12-2022 Provider Letter (Inserted Image. Arlene ble to display) July 12, 2022 KHADAR RAMOS [address] [place] [id number] KHADAR RAMOS 1940 Dear Mr. Ramos, We [...] prompt attention to this matter. Please call [phone] and choose the sales and marketing representative option to be rescheduled. Sincerely, [facility] [address] [facility], [place] [address] Normal [facility] Lab Reportson 04-25-2022 Lab Reports [id number] D:127 Normal [facility] CBC AUTO DIFFon 04-20-2022 BASO # 0.0 103/ul Normal 0.0-0.1 [facility] Comment on above: Performed By: #### C BC #### Laboratory [address] [place] [address] Dr. Nic Marie Basophils/100 WBC (Bld) 0.5 % Normal 0.2-2.0 [facility] Comment on above: Performed By: #### C BC #### Laboratory [address] [address] [address] Nic Marie EO # 0.7 103/ul Normal 0.0-0.7 [facility] Comment on above: Performed By: #### C BC #### Laboratory [address] [place] [address] Dr. Nic Marie Eosinophils/100 WBC (Bld) 8.8 % Critically high 0.9-7.0 The Comment on above: Performed By: #### C BC #### Laboratory [address] [address] [address] Nic Marie Erythrocyte distribution width (RBC) [Ratio] 18.0 % Critically high 11.0-15.0 [facility] Comment on above: Performed By: #### C BC #### Laboratory [address] [place] [address] Dr. Nic Marie Hematocrit (Bld) [Volume fraction] 44.3 % Normal 42.0-54.0 [facility] Comment on above: Performed By: #### C BC #### Laboratory [address] [address] [address] Nic Marie Hemoglobin (Bld) [Mass/Vol] 13.6 g/dL Critically low 14.0-18.0 [facility] Comment on above: Performed By: #### C BC #### Laboratory [address] [place] [address] Dr. Nic Marie IG # 0.05 10e3/ul Critically high 0.00-0.03 [facility] Comment on above: Performed By: #### C BC #### Laboratory [address] [place] [address] Dr. Nic Marie IG % 0.6 % Critically high 0.0-0.5 [facility] Comment on above: Performed By: #### C BC #### Laboratory [address] [place] [address] Dr. Nic Marie LYMPH # 0.8 103/ul Critically low 1.2-3.8 [facility] Comment on above: Performed By: #### C BC #### Laboratory [address] [place] [address] Dr. Nic Marie Lymphocytes/100 WBC (Bld) 10.7 % Critically low 20.5-60.0 [facility] Comment on above: Performed By: #### C BC #### Laboratory [address] [place] [address] Dr. Nic Marie MANUAL DIFF REQ NO Normal [facility] Comment on above: Performed By: #### C BC #### Laboratory [address] [place] [address] Dr. Nic Marie MCH (RBC) [Entitic mass] 24.9 pg Critically low 25.9-34.0 The Comment on above: Performed By: #### C BC #### Laboratory [address] [place] [address] Dr. Nci Marie MCHC (RBC) [Mass/Vol] 30.7 g/dL Normal 29.9-35.2 [facility] Comment on above: Performed By: #### C BC #### Laboratory [id number] Nic Marie MCV (RBC) [Entitic vol] 81.0 fL Normal 80.0-94.0 [facility] Comment on above: Performed By: #### C BC #### Laboratory [address] [address] [address] Nic Marie MONO # 0.9 103/ul Critically high 0.3-0.8 [facility] Comment on above: Performed By: #### C BC #### Laboratory [address] [address] [address] Nic Marie Monocytes/100 WBC (Bld) 11.1 % Normal 1.7-12.0 [facility] Comment on above: Performed By: #### C BC #### Laboratory [address] [address] [address] Nic Marie NEUT # 5.3 103/ul Normal 1.4-6.5 [facility] Comment on above: Performed By: #### C BC #### Laboratory [address] [place] [address] Dr. Nic Marie Neutrophils/100 WBC (Bld) 68.3 % Normal 43.0-75.0 [facility] Comment on above: Performed By: #### C BC #### Laboratory [address] [address] [address] Nic Marie Platelet mean volume (Bld) [Entitic vol] 10.0 fL Normal 9.5-13.5 The Comment on above: Performed By: #### C BC #### Laboratory [address] [address] [address] Nic Marie PLT 203 103/ul Normal 150-450 The Comment on above: Performed By: #### C BC #### Laboratory [address] [address] [address] Nic Marie RBC 5.47 106/ul Normal 4.70-6.10 The Comment on above: Performed By: #### C BC #### Laboratory [address] [address] [address] Nic Marie WBC 7.8 103/ul Normal 4.0-11.0 [facility] Comment on above: Performed By: #### C BC #### Laboratory [address] [address] [address] Nic Marie LIPID PROFILEon 04-20-2022 CHOL-HDL RATIO NORM SEE BELOW Normal [facility] Comment on above: Result Comment: 3.3 - 4.4 LOW RISK 4.4 - 7.1 AVERAGE RISK 7.1 - 11.0 MODERATE RISK >11.0 HIGH RISK Performed By: #### C MP, LIPID #### Laboratory [address] [address] [address] Nic Marie Cholesterol [Mass/Vol] 108 mg/dL Normal <=200 [facility] Comment on above: Performed By: #### C MP, LIPID #### Laboratory [address] [address] [address] Nic Marie Cholesterol in HDL [Mass/Vol] 36 mg/dL Critically low 40-60 [facility] Comment on above: Performed By: #### C MP, LIPID #### Laboratory [address] [address] [address] Nic Marie Cholesterol in LDL [Mass/Vol] 54.2 mg/dL Normal [facility] Comment on above: Performed By: #### C MP, LIPID #### Laboratory [address] [address] [address] Nic Marie Cholesterol.total/Ch olesterol in HDL [Mass ratio] 3.0 {ratio} Normal [facility] Comment on above: Performed By: #### C MP, LIPID #### Laboratory [address] [address] [address] Nic Marie HDL NORMAL > or = 60 mg/dl - LO W CARDIOVASCULAR RISK <40 mg/dl - HIGH CARDIOVASCULAR RISK Normal [facility] Comment on above: Performed By: #### C MP, LIPID #### Laboratory [address] [address] [address] Nic Marie LDL CALC NORMAL SEE BELOW Normal [facility] Comment on above: Result Comment: <100 mg/dl OPTIMAL 100 - 129 mg/dl NEAR OR ABOVE OPTIMAL 130 - 159 mg/dl BORDERLINE HIGH 160 - 189 mg/dl HIGH >190 mg/dl VERY HIGH Performed By: #### C MP, LIPID #### Laboratory [address] [place] [address] Dr. Nic Marie Triglyceride [Mass/Vol] 89 mg/dL Normal <=150 [facility] Comment on above: Performed By: #### C MP, LIPID #### Laboratory [address] [place] [address] Dr. Nic Marie VLDL CALC 17.8 mg/dL Normal [facility] Comment on above: Performed By: #### C MP, LIPID #### Laboratory [address] [place] [address] Dr. Nic Marie PROF 14(COMP METB)on 023 Albumin [Mass/Vol] 3.7 g/dL Normal 3.4-5.0 [facility] Comment on above: Performed By: #### C MP, LIPID #### Laboratory [address] [place] [address] Dr. Nic Marie Albumin/Globulin [Mass ratio] 1.0 {ratio} Normal [facility] Comment on above: Performed By: #### C MP, LIPID #### Laboratory [address] [place] [address] Dr. Nic Marie ALP [Catalytic activity/Vol] 59 U/L Normal 46-116 [facility] Comment on above: Performed By: #### C MP, LIPID #### Laboratory [address] [place] [address] Dr. Nic Marie ALT [Catalytic activity/Vol] 28 U/L Normal 16-63 [facility] Comment on above: Performed By: #### C MP, LIPID #### Laboratory [address] [place] [address] Dr. Nic Marie Anion gap [Moles/Vol] 12.1 mmol/L Normal [facility] Comment on above: Performed By: #### C MP, LIPID #### Laboratory [address] [place] [address] Dr. Nic Marie AST [Catalytic activity/Vol] 18 U/L Normal 15-37 [facility] Comment on above: Performed By: #### C MP, LIPID #### Laboratory [address] [place] [address] Dr. Nic Marie Bilirubin [Mass/Vol] 0.6 mg/dL Normal 0.2-1.0 [facility] Comment on above: Performed By: #### C MP, LIPID #### Laboratory [address] [place] [address] Dr. Nic Marie Calcium [Mass/Vol] 9.6 mg/dL Normal 8.5-10.1 [facility] Comment on above: Performed By: #### C MP, LIPID #### Laboratory [address] [place] [address] Dr. Nic Marie Chloride [Moles/Vol] 104 mmol/L Normal 98-107 [facility] Comment on above: Performed By: #### C MP, LIPID #### Laboratory [address] [place] [address] Dr. Nic Marie CO2 [Moles/Vol] 30.3 mmol/L Normal 21.0-32.0 [facility] Comment on above: Performed By: #### C MP, LIPID #### Laboratory [address] [place] [address] Dr. Nic Marie Creatinine [Mass/Vol] 0.99 mg/dL Normal 0.70-1.30 [facility] Comment on above: Performed By: #### C MP, LIPID #### Laboratory [address] [place] [address] Dr. Nic Marie EGFR-AF LIBERIAN >60 Normal >=[address] [facility] Comment on above: Performed By: #### C MP, LIPID #### Laboratory [address] [place] [address] Dr. Nic Marie EGFR-NON AF LIBERIAN >60 Normal >=60 [facility] Comment on above: Performed By: #### C MP, LIPID #### Laboratory [address] [place] [address] Dr. Nic Marie Globulin (S) [Mass/Vol] 3.6 g/dL Normal [facility] Comment on above: Performed By: #### C MP, LIPID #### Laboratory [address] [place] [address] Dr. Nic Marie Glucose [Mass/Vol] 114 mg/dL Critically high 74-106 [facility] Comment on above: Performed By: #### C MP, LIPID #### Laboratory [address] [place] [address] Dr. Nic Marie Potassium [Moles/Vol] 4.4 mmol/L Normal 3.5-5.1 [facility] Comment on above: Performed By: #### C MP, LIPID #### Laboratory [address] [place] [address] Dr. Nic Marie Protein [Mass/Vol] 7.3 g/dL Normal 6.4-8.2 [facility] Comment on above: Performed By: #### C MP, LIPID #### Laboratory [address] [place] [address] Dr. Nic Marie Sodium [Moles/Vol] 142 mmol/L Normal 136-145 [facility] Comment on above: Performed By: #### C MP, LIPID #### Laboratory [address] [place] [address] Dr. Nic Marie Urea nitrogen [Mass/Vol] 23.0 mg/dL Critically high 7.0-18.0 [facility] Comment on above: Performed By: #### C MP, LIPID #### Laboratory [address] [place] [address] Dr. Nic Marie Urea nitrogen/Creatinine [Mass ratio] 23.2 mg/mg Normal [facility] Comment on above: Performed By: #### C MP, LIPID #### Laboratory [address] [place] [address] Dr. Nic Marie PROF CHEM 8 (BAS METB)on Anion gap [Moles/Vol] 13.0 mmol/L Normal [facility] Comment on above: Performed By: #### P SAD #### Laboratory [address] [address] [address] Nic Marie Calcium [Mass/Vol] 9.0 mg/dL Normal 8.5-10.1 [facility] Comment on above: Performed By: #### P SAD #### Laboratory [address] [address] [address] Nic Marie Chloride [Moles/Vol] 100 mmol/L Normal 98-107 [facility] Comment on above: Performed By: #### P SAD #### Laboratory [address] [address] [address] Nic Marie CO2 [Moles/Vol] 27.2 mmol/L Normal 21.0-32.0 [facility] Comment on above: Performed By: #### P SAD #### Laboratory [address] [place] [address] Dr. Nic Marie Creatinine [Mass/Vol] 1.18 mg/dL Normal 0.70-1.30 [facility] Comment on above: Performed By: #### P SAD #### Laboratory [address] [place] [address] Dr. Nic Marie EGFR-AF LIBERIAN >60 Normal >=[address] [facility] Comment on above: Performed By: #### P SAD #### Laboratory [address] [place] [address] Dr. Nic Marie EGFR-NON AF LIBERIAN =60 Normal >=60 [facility] Comment on above: Performed By: #### P SAD #### Laboratory [address] [address] [address] Nic Marie Glucose [Mass/Vol] 238 mg/dL Critically high 74-106 [facility] Comment on above: Performed By: #### P SAD #### Laboratory [address] [address] [address] Nic Marie Potassium [Moles/Vol] 4.2 mmol/L Normal 3.5-5.1 [facility] Comment on above: Performed By: #### P SAD #### Laboratory [address] [address] [address] Nic Marie Sodium [Moles/Vol] 136 mmol/L Normal 136-145 [facility] Comment on above: Performed By: #### P SAD #### Laboratory [address] [place] [address] Dr. Nic Marie Urea nitrogen [Mass/Vol] 30.0 mg/dL Critically high 7.0-18.0 [facility] Comment on above: Performed By: #### P SAD #### Laboratory [address] [place] [address] Dr. Nic Marie Urea nitrogen/Creatinine [Mass ratio] 25.4 mg/mg Normal [facility] Comment on above: Performed By: #### P SAD #### Laboratory [address] [place] [address] Dr. Nic Marie CBC W MANUAL DIFFon 05-05-19 [address] [facility] Comment on above: Performed By: #### C BCMAN #### Laboratory [address] [place] [address] Dr. Nic Marie ATYPICAL LYMPH # Normal [facility] Comment on above: Performed By: #### C BCMAN #### Laboratory [address] [place] [address] Dr. Nic Marie ATYPICAL LYMPH % Normal [facility] Comment on above: Performed By: #### C BCMAN #### Laboratory [address] [place] [address] Dr. Nic Marie BAND # Normal 0.0-0.3 [facility] Comment on above: Performed By: #### C BCMAN #### Laboratory [address] [place] [address] Dr. Nic Marie BAND % Normal 0-5 The Comment on above: Performed By: #### C BCMAN #### Laboratory [address] [place] [address] Dr. Nic Marie BASOM # 0.15 103/ul Critically high 0.00-0.10 [facility] Comment on above: Performed By: #### C BCMAN #### Laboratory [address] [place] [address] Dr. Nic Marie BASOM % 1.0 % Normal 0.2-2.0 [facility] Comment on above: Performed By: #### C DAMIAN #### Laboratory [address] [place] [address] Dr. Nic Marie BLAST # Normal [facility] Comment on above: Performed By: #### C DAMIAN #### Laboratory [address] [place] [address] Dr. Nic Marie BLAST % Normal [facility] Comment on above: Performed By: #### C DAMIAN #### Laboratory [address] [place] [address] Dr. Nic Marie CORRECTED WBC Normal 4.0-11.0 [facility] Comment on above: Performed By: #### C DAMIAN #### Laboratory [address] [place] [address] Dr. Nic Marie EOS # 0.73 103/ul Critically high 0.00-0.70 [facility] Comment on above: Performed By: #### C DAMIAN #### Laboratory [address] [place] [address] Dr. Nic Marie EOS% 5.0 % Normal 0.9-7.0 [facility] Comment on above: Performed By: #### C DAMIAN #### Laboratory [address] [place] [address] Dr. Nic Marie HCT 38.1 % Critically low 42.0-54.0 [facility] Comment on above: Performed By: #### C DAMIAN #### Laboratory [address] [place] [address] Dr. Nic Marie HGB 10.4 g/dl Critically low 14.0-18.0 [facility] Comment on above: Performed By: #### C DAMIAN #### Laboratory [address] [place] [address] Dr. Nic Marie HYPOCHROMASIA SLIGHT Normal [facility] Comment on above: Performed By: #### C DAMIAN #### Laboratory [address] [place] [address] Dr. Nic Marie LYMPHM # 0.58 103/ul Critically low 1.20-3.80 [facility] Comment on above: Performed By: #### C DAMIAN #### Laboratory [address] [place] [address] Dr. Nic Marie LYMPHM% 4.0 % Critically low 20.5-60.0 [facility] Comment on above: Performed By: #### C DAMIAN #### Laboratory [address] [address] [address] Nic Marie MCH 19.3 pg Critically low 25.9-34.0 [facility] Comment on above: Performed By: #### C DAMIAN #### Laboratory [address] [place] [address] Dr. Nic Marie MCHC 27.3 g/dl Critically low 29.9-35.2 [facility] Comment on above: Performed By: #### C DAMIAN #### Laboratory [address] [place] [address] Dr. Nic Marie MCV 70.6 fL Critically low 80.0-94.0 [facility] Comment on above: Performed By: #### C DAMIAN #### Laboratory [address] [place] [address] Dr. Nic Marie METAMYELOCYTE # Normal [facility] Comment on above: Performed By: #### C DAMIAN #### Laboratory [address] [place] [address] Dr. Nic Marie METAMYELOCYTE % Normal [facility] Comment on above: Performed By: #### C DAMIAN #### Laboratory [address] [place] [address] Dr. Nic Marie MONOM# 0.58 103/ul Normal 0.30-0.80 [facility] Comment on above: Performed By: #### C DAMIAN #### Laboratory [address] [place] [address] Dr. Nic Marie MONOM% 4.0 % Normal 1.7-12.0 [facility] Comment on above: Performed By: #### C DAMIAN #### Laboratory [address] [address] [address] Nic Marie MPV 9.7 fL Normal 9.5-13.5 [facility] Comment on above: Performed By: #### C DAMIAN #### Laboratory [address] [address] [address] Nic Marie MYELOCYTE # Normal [facility] Comment on above: Performed By: #### C DAMIAN #### Laboratory [address] [address] [address] Nic Marie MYELOCYTE % Normal [facility] Comment on above: Performed By: #### C DAMIAN #### Laboratory [address] [address] [address] Nic Marie NRBC Normal [facility] Comment on above: Performed By: #### C DAMIAN #### Laboratory [address] [place] [address] Dr. Nic Marie PLT 347 103/ul Normal 150-450 The Comment on above: Performed By: #### C DAMIAN #### Laboratory [address] [place] [address] Dr. Nic Marie RBC 5.40 106/ul Normal 4.70-6.10 [facility] Comment on above: Performed By: #### C DAMIAN #### Laboratory [address] [place] [address] Dr. Nic Marie RDW 22.2 % Critically high 11.0-15.0 [facility] Comment on above: Performed By: #### C DAMIAN #### Laboratory [address] [place] [address] Dr. Nic Marie SEG # 12.56 103/ul Critically high 1.40-6.50 [facility] Comment on above: Performed By: #### C DAMIAN #### Laboratory [address] [place] [address] Dr. Nic Marie SEG % 86.0 % Critically high 43.0-75.0 [facility] Comment on above: Performed By: #### C DAMIAN #### Laboratory [address] [address] [address] Nic Marie WBC 14.6 103/ul Critically high 4.0-11.0 [facility] Comment on above: Performed By: #### C BCMAN #### Laboratory [address] [place] [address] Dr. Nic Marie GLYCOHEMOGLOBIN A1Con 2021 ADA RECOMMENDATION ADA THERAPEUTIC TARG ET 6.0 - 7.0 ACTION SUGGESTED > 7.[address] [facility] Comment on above: Performed By: #### A 1C #### Laboratory [address] [place] [address] Dr. Nic Marie Glucose [Mass/Vol] 171 mg/dL Normal [facility] Comment on above: Performed By: #### A 1C #### Laboratory [address] [place] [address] Dr. Nic Marie HbA1c (Bld) [Mass fraction] 7.6 % Critically high <=6.0 [facility] Comment on above: Performed By: #### A 1C #### Laboratory [address] [place] [address] Dr. Nic Marie LIPID PROFILEon 05-04-2021 CHOL-HDL RATIO NORM SEE BELOW Normal [facility] Comment on above: Result Comment: 3.3 - 4.4 LOW RISK 4.4 - 7.1 AVERAGE RISK 7.1 - 11.0 MODERATE RISK >11.0 HIGH RISK Performed By: #### L IPID, TSH, MG, CMP #### Laboratory [address] [place] [address] Dr. Nic Marie Cholesterol [Mass/Vol] 97 mg/dL Normal <=200 [facility] Comment on above: Performed By: #### L IPID, TSH, MG, CMP #### Laboratory [address] [place] [address] Dr. Nic Marie Cholesterol in HDL [Mass/Vol] 34 mg/dL Normal [facility] Comment on above: Performed By: #### L IPID, TSH, MG, CMP #### Laboratory [address] [place] [address] Dr. Nic Marie Cholesterol in LDL [Mass/Vol] 49.2 mg/dL Normal The Comment on above: Performed By: #### L IPID, TSH, MG, CMP #### Laboratory [address] [address] [address] Nic Marie Cholesterol.total/Ch olesterol in HDL [Mass ratio] 2.9 {ratio} Normal The Comment on above: Performed By: #### L IPID, TSH, MG, CMP #### Laboratory [address] [address] [address] Nic Marie HDL NORMAL > or = 60 mg/dl - LO W CARDIOVASCULAR RISK <40 mg/dl - HIGH CARDIOVASCULAR RISK Normal [facility] Comment on above: Performed By: #### L IPID, TSH, MG, CMP #### Laboratory [address] [place] [address] Dr. Nic Marie LDL CALC NORMAL SEE BELOW Normal [facility] Comment on above: Result Comment: <100 mg/dl OPTIMAL 100 - 129 mg/dl NEAR OR ABOVE OPTIMAL 130 - 159 mg/dl BORDERLINE HIGH 160 - 189 mg/dl HIGH >190 mg/dl VERY HIGH Performed By: #### L IPID, TSH, MG, CMP #### Laboratory [address] [place] [address] Dr. Nic Marie Triglyceride [Mass/Vol] 69 mg/dL Normal <=150 [facility] Comment on above: Performed By: #### L IPID, TSH, MG, CMP #### Laboratory [address] [address] [address] Nic Marie VLDL CALC 13.8 mg/dL Normal The Comment on above: Performed By: #### L IPID, TSH, MG, CMP #### Laboratory [address] [place] [address] Dr. Nic Marie MAGNESIUMon 05-04-2021 Magnesium [Mass/Vol] 1.6 mg/dL Normal 1.6-2.3 [facility] Comment on above: Performed By: #### L IPID, TSH, MG, CMP #### Laboratory [address] [place] [address] Dr. Nic Marie PROF 14(COMP METB)on 022 Albumin [Mass/Vol] 3.8 g/dL Normal 3.5-5.0 [facility] Comment on above: Performed By: #### L IPID, TSH, MG, CMP #### Laboratory [address] [address] [address] Nic Marie Albumin/Globulin [Mass ratio] 1.0 {ratio} Normal [facility] Comment on above: Performed By: #### L IPID, TSH, MG, CMP #### Laboratory [address] [address] [address] Nic Marie ALP [Catalytic activity/Vol] 69 U/L Normal 38-126 [facility] Comment on above: Performed By: #### L IPID, TSH, MG, CMP #### Laboratory [address] [place] [address] Dr. Nic Marie ALT [Catalytic activity/Vol] 26 U/L Normal 21-72 [facility] Comment on above: Performed By: #### L IPID, TSH, MG, CMP #### Laboratory [address] [address] [address] Nic Marie Anion gap [Moles/Vol] 8.5 mmol/L Normal [facility] Comment on above: Performed By: #### L IPID, TSH, MG, CMP #### Laboratory [address] [address] [address] Nic Marie AST [Catalytic activity/Vol] 16 U/L Critically low 17-59 [facility] Comment on above: Performed By: #### L IPID, TSH, MG, CMP #### Laboratory [address] [address] [address] Nic Marie Bilirubin [Mass/Vol] 0.7 mg/dL Normal 0.2-1.3 [facility] Comment on above: Performed By: #### L IPID, TSH, MG, CMP #### Laboratory [address] [address] [address] Nic Marie Calcium [Mass/Vol] 9.4 mg/dL Normal 8.4-10.2 [facility] Comment on above: Performed By: #### L IPID, TSH, MG, CMP #### Laboratory [address] [address] [address] Nic Marie Chloride [Moles/Vol] 104 mmol/L Normal 98-107 [facility] Comment on above: Performed By: #### L IPID, TSH, MG, CMP #### Laboratory [address] [place] [address] Dr. Nic Marie CO2 [Moles/Vol] 30.9 mmol/L Critically high 22.0-30.0 [facility] Comment on above: Performed By: #### L IPID, TSH, MG, CMP #### Laboratory [address] [place] [address] Dr. Nic Marie Creatinine [Mass/Vol] 1.03 mg/dL Normal 0.66-1.25 [facility] Comment on above: Performed By: #### L IPID, TSH, MG, CMP #### Laboratory [address] [place] [address] Dr. Nic Marie EGFR-AF LIBERIAN >60 Normal >=60 [facility] Comment on above: Performed By: #### L IPID, TSH, MG, CMP #### Laboratory [address] [place] [address] Dr. Nic Marie EGFR-NON AF LIBERIAN >60 Normal >=60 [facility] Comment on above: Performed By: #### L IPID, TSH, MG, CMP #### Laboratory [address] [place] [address] Dr. Nic Marie Globulin (S) [Mass/Vol] 3.7 g/dL Normal [facility] Comment on above: Performed By: #### L IPID, TSH, MG, CMP #### Laboratory [address] [place] [address] Dr. Nic Marie Glucose [Mass/Vol] 121 mg/dL Critically high 74-106 [facility] Comment on above: Performed By: #### L IPID, TSH, MG, CMP #### Laboratory [address] [place] [address] Dr. Nic Marie Potassium [Moles/Vol] 4.4 mmol/L Normal 3.4-5.0 [facility] Comment on above: Performed By: #### L IPID, TSH, MG, CMP #### Laboratory [address] [place] [address] Dr. Nic Marie Protein [Mass/Vol] 7.5 g/dL Normal 6.1-8.2 The [facility] [place] Comment on above: Performed By: #### L IPID, TSH, MG, CMP #### Laboratory [address] [place] [address] Dr. Nic Marie Sodium [Moles/Vol] 139 mmol/L Normal 137-145 [facility] [place] Comment on above: Performed By: #### L IPID, TSH, MG, CMP #### Laboratory [address] [place] [address] Dr. Nic Marie Urea nitrogen [Mass/Vol] 21.0 mg/dL Critically high 9.0-20.0 [facility] Comment on above: Performed By: #### L IPID, TSH, MG, CMP #### Laboratory [address] [place] [address] Dr. Nic Marie Urea nitrogen/Creatinine [Mass ratio] 20.4 mg/mg Normal [facility] Comment on above: Performed By: #### L IPID, TSH, MG, CMP #### Laboratory [address] [place] [address] Dr. Nic Marie TSHon 05-04-2021 TSH 1.553 uIU/mL Normal 0.470-4.680 [facility] Comment on above: Performed By: #### L IPID, TSH, MG, CMP #### Laboratory [address] [place] [address] Dr. Nic Marie TSH RANGE SEE BELOW Normal The Comment on above: Result Comment: <0.3 4 UIU/ml HYPERTHYROID 0.34-5.60 UIU/ml EUTHYROID >5.60 UIU/ml HYPOTHYROID Performed By: #### L IPID, TSH, MG, CMP #### Laboratory [address] [place], [place] [address] Dr. Nic Marie Cardiovascular Lab Reporton 08-03-2020 Cardiovascular Lab Report [facility] Patient Name: [facility] Shanda Smart MR #: [id number] Department of Physician: Alexa Campbell M.D. Division of Service Date: 08/03/2020 Cardiology Birthdate: 1940 Adult Cardiovascular Room #: [facility] [address] [facility]. [place], [place] [address] Cardiovascular Laboratory Report FINAL IMPRESSIONS: 1. Severe [...] right internal jugular vein was obtained. A 6-Bermudian x 11 cm sheath was inserted without [...] to access the left radial artery. A 6-Bermudian glide sheath was inserted without difficulty. Bilateral selective coronary angiography was performed using JR4 and JL4 catheters. After reviewing the images, it was elected to proceed with an interventional procedure. A 6-Bermudian JR4 guide catheter was advanced over J-wire [...] stenosis. (more content not included)... Normal [facility] Vital Signs Date Time Vital Sign Value Performing Clinician Janes gautam 10-13-2022 09:35-0400 Blood Pressure Location Yousuf MARTIN [facility] 10-13-2022 09:35-0400 Diastolic blood pressure 78 mm[Hg] Yousuf MARTIN [facility] 10-13-2022 09:35-0400 Heart rate 69 /min Yousuf MARTIN [facility] 10-13-2022 09:35-0400 Respiratory rate 16 /min Yousuf MARTIN [facility] 10-13-2022 09:35-0400 Systolic blood pressure 132 mm[Hg] Yousuf MARTIN [facility] Encounters Encounter Date Encounter Type Care Provider Facility Start: 10-19-2023 ambulatory Yousuf Flemingi ty:[facility] [place] Start: 05-11-2023 End: 05-11-2023 ambulatory KELY BORDEN Not Available Start: 03-29-2023 End: 03-29-2023 ambulatory [facility] Start: 02-23-2023 End: 02-23-2023 ambulatory KELY BORDEN Not Available Start: 10-23-2022 End: 10-23-2022 ambulatory RAM[facility] Start: 10-17-2022 End: 10-18-2022 ambulatory Yousuf MARTIN Facility[facility] Start: 10-17-2022 End: 10-17-2022 Patient encounter procedure Yousuf MARTIN [facility] Start: 10-13-2022 End: 10-14-2022 ambulatory Yousuf MARTIN Facility:[facility] Start: 10-13-2022 End: 10-14-2022 ambulatory Yousuf MARTIN Facility:[facility] Start: 10-13-2022 End: 10-13-2022 Patient encounter procedure Yousuf MARTIN [facility] Start: 04-20-2022 End: 04-21-2022 ambulatory BABAK العلي Facility: Start: 10-25-2021 End: 10-26-[address] RAMYA FLANAGAN Facility:[facility] Start: 05-04-2021 End: 05-05-2021 ambulatory BABAK العلي Facility:[facility] Start: 08-03-2020 End: 08-04-2020 ambulatory RAMYA FLANAGAN Facility:[facility] Procedures Date Procedure Procedure Detail Performing Clinician Start: 04-20-2022 PSA screening BABAK RED Comment on above: Performed By: #### P SAD #### Laboratory [address] [place] [address] Dr. Nic Marie Start: 08-03-2020 Placement of stent i n cardiac conduit Yousuf MARTIN carotid endarderectomy Frandy MARTIN History of hernia repair Tonia MARTIN Operative procedure on coronary artery Yousuf MARTIN Immunizations Immunization Date Immunization Notes Care Provider Fa ciliturner 03-05-2020 SARS-CoV-2 (COVID-19 ) mRNA-1253 vaccine Yousuf MARTIN [facility] Comment on above: Result Comment: pt h as had 3 shots to date but does not know the dates NEGATED: Highlighted row has not occurred!04-23-2020 influenza virus vaccine, unspecified formulation Yousuf MARTIN [facility] Payers Date Payer Category Payer Medicare [id number] 1940 Unknown [id number] 2.16.8 [id number] 1940 Unknown [id number] 2.16.84 [id number] 1940 Unknown [id number] 2.16.84 [id number] 1940 Unknown [id number] 2.16.84 [id number] 1940 Unknown [id number] 2.16.84 [id number] 1940 Unknown [id number] 2.16.8 [id number] 1940 Unknown [id number] 2.16.8 [id number] 1940 Unknown [id number] 2.16.8 [id number] 1940 Unknown [id number] 2.16.8 [id number] 1940 Unknown [id number] 2.16.84 [id number] 1940 Unknown [id number] 2.16.840 .[id number] Private Health Insurance [employer] Social History Date Type Detail Facility Start: 04-25-2019 Tobacco smoking status Ex-smoker (fi nding) [facility] Sex Assigned At Male [facility] Functional Status Date Assessment Result Facility 10-13-2022 Functional Status N/A [facility] Clinical Notes 04-13-2020 to 03-29-2023 Note Date & Type Note Facility 03-29-2023 Note Patient being seen v nv telemedicine today for 5 mo follow up hypertension, afib, CAD, and systolic heart failure. He had echo last week. He is doing very well. Denies chest pain, SOB, palpitations, lightheadedness/syncope and bleeding on Xarelto. Review of Systems Cardiovascular: Positive for leg swelling (resolves by morning). Musculoskeletal: Positive for arthritis and joint pain. All other systems reviewed and are negative. [facility] 03-29-2023 Note Cardiovascular Medic [facility] SUBJECTIVE Chief Complaint Patient presents with [...] Final QTC CALCULATION(BAZETT) 08/03/2020 428 ms Final R-[place] 08/03/2020 -82 degrees Final T Wave [place] 08/03/2020 51 degrees Final Diagnosis 08/03/2020 Final Value:Atrial fibrillation with rapid ventricular response with premature ventricular or aberrantly conducted complexes Left axis deviation Right bundle branch block Inferior infarct (cited on or before 03-AUG-2020) Abnormal ECG When compared with ECG of 03-AUG-2020 09:18, Previous ECG has undetermined rhythm, needs review QT has shortened Confirmed by Bailey PATEL, L.S. (2) on 08/03/2020 1:51:38 PM No [...] visit: Chronic systolic (more content not included)... [facility] 10-23-2022 Note [facility] Cardiology Clinic Note Chief Complaint: Patient here for 6 mo follow up hypertension, afib, CAD, and systolic heart failure. He was seen in [facility] ED last month for hematuria. Plavix [...] carotid bruits present. (more content not included)... [facility] 10-17-2022 Note [id number] [facility] 10-17-2022 Note Custom Cystoscopy ? Voiding after [...] you have a fever over 100 degrees. [facility] 10-17-2022 Hospital Discharge instructions Patient Education 10/17/2022 [...] With:Yousuf MARTIN Address: [facility] [address] , [place] [address]- Business (1) When: Unknown Comments:Office will call to schedule follow up [facility] 10-13-2022 Hospital Discharge instructions Patient Education [...] urethra. Follow these instructions at home: Take wify-sjk-mepqgpy and prescription medicines only as told by [...] provider. Document Revised: 09/07/2021 Document Reviewed: 09/07/2021 [employer] [place] Patient Education 2022 [employer]. Follow Up Care 04/25/2021 10:27:16 With:ALFIE WISE, Yousuf Barroso, URL Address: [facility] [address] [place] [address]- When: Unknown Comments:radha Brinko. [facility] 04-13-2020 Note Patient Outreach ([place] VAMN) KHADAR RAMOS ([id number]) 1940 M Date Time Provider Department 04/13/20 RICCO RUBI During your visit today, we recorded the following information about you: Allergies As of Date: 04/13/2020 (No Known Allergies) Date Reviewed: 06/05/2018 Reviewed by: Rosalie Allen - Fully Assessed Order(s):SARS-COVID VACCINE 1ST DOSE APPT [[id number]] Order #: [id number] FUTURE Prescriptions as of 04/13/2020 Sig: SIMVASTATIN [...] [Z85.46] 06/09/2015 Letter Text Encounter Status:Closed by NIVIA ESPITIA on 04/16/20 [facility] Evaluation + Plan note Future Appointments Appointment Date:10/16/2022 10:45:00 AM Scheduled Provider: Location:[facility] Appointment Type:Urology CALL PAT FT Appointment Date:10/17/2022 10:00:00 AM Scheduled Provider: Location:[facility] Appointment Type:Urology FT Diagnostic Tests PendingPSA Total 10/13/22 [facility] Hospital course Narrative No data available for this section [facility] Progress note No data available for this section [facility] Summary Purpose Family History No Family History [...] section and content) DATE CREATED AUTHOR 08/09/2020 [facility] DATE CREATED AUTHOR AUTHOR'S ORGANIZ ATION 04/04/2021 [facility] DATE CREATED AUTHOR AUTHOR'S ORGANIZ ATION 04/22/[address] [facility] DATE CREATED AUTHOR AUTHOR'S ORGANIZ ATION 12/12/2022 [facility] DATE CREATED AUTHOR AUTHOR'S ORGANIZ ATION 04/21/2023 [facility] DATE CREATED AUTHOR AUTHOR'S ORGANIZ ATION 05/12/2023 [facility] EPIC Patient Care team informatio n (unrecognized section and content) Personnel Name: Josy Sahu MD Address: Address: [address] [place] [address] Personnel Name: Josy Sahu MD Address: Address: [address] [place] [address] FOR RECORDS PERTAINING TO PATIENTS WHO ARE [...] BE BASED ON THE PRIMARY CLINICAL RECORDS. [facility] [employer] provides no warranty or guarantee of the accuracy or completeness of information in this document.
[2023-06-27 09:14] LABS: Estimated Average Glucose 154 mg/dL
[2023-06-27 09:24] LABS: Hematocrit 48.8 % (42.0-54.0); Hemoglobin 15.9 g/dL (14.0-18.0); Mean Corpuscular HGB Conc 32.6 g/dL (29.9-35.2); Mean Corpuscular Hemoglobin 29.9 pg (25.9-34.0); Mean Corpuscular Volume 91.7 fL (80.0-94.0); Platelet Count 224 10^3/uL (150-450); Red Blood Count 5.32 10^6/uL (4.70-6.10); White Blood Count 9.9 10^3/uL (4.0-11.0)
[2023-06-27 09:33] LABS: Alanine Aminotransferase 25 U/L (16-63); Albumin Globulin Ratio 1.1; Albumin Level 3.6 g/dL (3.4-5.0); Alkaline Phosphatase 54 U/L (46-116); Anion Gap 12.4; Aspartate Amino Transferase 21 U/L (15-37); BUN Creatinine Ratio 20.9; Bilirubin Total 0.9 mg/dL (0.2-1.0); Calcium 9.4 mg/dL (8.5-10.1); Carbon Dioxide 29.1 mmol/L (21.0-32.0); Chloride 103 mmol/L (98-107); Chol HDL Ratio 2.7; Cholesterol 113 mg/dL (<=200); Estimated GFR (African America >60 (>=60); Estimated GFR (Non-African Ame >60 (>=60); Free T3 2.58 pg/mL (2.18-3.98); Globulin 3.3 g/dL; Glucose 111 mg/dL (74-106); HDL Cholesterol 42 mg/dL (40-60); LDL Cholesterol Calculated 58.6 mg/dL; Potassium 4.5 mmol/L (3.5-5.1); Sodium 140 mmol/L (136-145); Thyroid Stimulating Hormone 1.967 uIU/mL (0.358-3.740); Total Protein 6.9 g/dL (6.4-8.2); Triglycerides 62 mg/dL (<=150); Uric Acid 5.3 mg/dL (3.5-7.2); VLDL CHOLESTEROL 12.4 mg/dL
[2023-06-27 09:42] LABS: Prostate Specific Antigen Dx <0.13 ng/mL (<=4.00)
[2023-06-27 14:42] LABS: Basophils Abs Manual 0.09 10^3/uL (0.00-0.10); Eosinophils Absolute Manual 0.79 10^3/uL (0.00-0.70); Lymphocytes Absolute Manual 0.69 10^3/uL (1.20-3.80); Monocytes Absolute Manual 0.09 10^3/uL (0.30-0.80); Segmented Neut Absolute Manual 8.21 10^3/uL (1.4-6.5)
== END 2023-06-27 08:18 | disposition home or self-care (01) ==
LOC: LAB 08:20
PROVIDERS: PCP Family Medicine; Visit Provider Family Medicine
DX: E78.2 Mixed hyperlipidemia (principal); C61 Malignant neoplasm of prostate; E11.9 Type 2 diabetes mellitus without complications; E78.5 Hyperlipidemia, unspecified; Z12.5 Encounter for screening for malignant neoplasm of prostate; I50.30 Unspecified diastolic (congestive) heart failure; I11.0 Hypertensive heart disease with heart failure
CPT/HCPCS: 36415; 80053; 80061; 83036; 83880; 84153; 84436; 84443; 84481; 84550; 85007; 85027

== ENCOUNTER 2024-01-10 11:19 | Inpatient (IN) | payer MEDICARE, SELFPAY ==
[2024-01-10] VITALS (24 sets, daily range): BP systolic 123–155; BP diastolic 68–98; PULSE 77–104; TEMP 35.6–36.6; O2SAT 78–97; BMI 25.8; BMI 27.5
--- NOTE | 2024-01-10 11:22 | ECG_ITS ---
The [facility] Test Date: 2024-01-10 Pat Name: KHADAR RAMOS Department: Room: - Gender: Male [employer]: : 1940 Requested By: JOSY DELACRUZ Order Number: [id number] Reading MD: JOSY DELACRUZ Measurements Intervals [place] Rate: 77 P: -99192 [place]: -[id number] QRS: -77 QRSD: 130 T: 69 QT: 390 QTc: 421 Interpretive Statements 1210 Atrial fibrillation 2450 Right bundle branch block 9150 abnormal ECG No previous ECG available for comparison Electronically Signed On 01-11-2024 6:01:50 EST by JOSY DELACRUZ
--- NOTE | 2024-01-10 11:22 | XR_ITS ---
The [address] [address] Patient Name: KHADAR RAMOS MRN: [id number] date: 1940 Sex: M Assigned Patient Location: ER Current Patient Location: ER Accession/Order Number: [id number] Exam Date: 01/10/2024 12:10 Report Date: 01/10/2024 12:43 At the request of: DAVID MOSELEY Procedure: XR chest 1V EXAMINATION: XR chest 1V HISTORY: sob COMPARISON: XR chest 06/10/2020 FINDINGS: LUNGS: Underexpanded lungs with mild stranding within right lung base. Mild opacities and stranding within left lung base obscuring the diaphragm margin. VASCULATURE: No increased pulmonary vasculature. PLEURA: Left pleural effusion. CARDIAC: Cardiomegaly. MEDIASTINUM: No visible mass or adenopathy. BONES: No fracture or visible bone lesion. OTHER: Negative. XR/XR chest 1V IMPRESSION: 1. Small to moderate left pleural effusion and mild left basilar infiltrates versus atelectasis. 2. Mild right basilar infiltrates versus atelectasis. Electronically authenticated by: SHANITA MORRIS Date: 01/10/2024 12:43
--- NOTE | 2024-01-10 11:24 | ED_ITS ---
HPI - SOB/Dyspnea General Chief Complaint: Shortness of Breath/Dyspnea Stated Complaint: SHORTNESS OF BREATH Time Seen by Provider: 01/10/24 11:22 History of Present Illness HPI Narrative: Patient presents ED complaining of shortness of breath. He has been short of breath for about a week. He thinks he has a history of COPD but he is not 100% sure. He does have a history of CHF. He does have some leg swelling which is worse than his normal. He got in with Dr. Sahu this morning and when they checked his vitals in the office he was 69% on room air. They called the squad and he was brought into ED. The squad put him on 4 L nasal cannula and he was still only 86%. He was then switched over to a nonrebreather and he is 91%. He is alert and oriented, he is in mild to moderate respiratory distress, speaking in short sentences but able to answer all questions appropriately. He said he has chills but no fever. He has been having a productive cough worse at night. No chest pain. He does have a history of 2 stents. Related Data Home Medications ?Medication ?Instructions ?Recorded ?Confirmed amlodipine 10 mg-benazepril 20 mg 1 cap PO DAILY 09/23/22 01/10/24 capsule atorvastatin 80 mg tablet 80 mg PO DAILY 09/23/22 01/10/24 carvedilol 12.5 mg tablet 12.5 mg PO Q12H 09/23/22 01/10/24 ferrous sulfate 325 mg (65 mg 325 mg PO DAILY 09/23/22 01/10/24 iron) tablet furosemide 20 mg tablet 20 mg PO DAILY 09/23/22 01/10/24 glimepiride 4 mg tablet 2 mg PO DAILY 09/23/22 01/10/24 metformin 500 mg tablet 500 mg PO BID 09/23/22 01/10/24 pantoprazole 40 mg tablet,delayed 40 mg PO DAILY 09/23/22 01/10/24 release rivaroxaban 20 mg tablet (Xarelto) 20 mg PO DAILY 09/23/22 01/10/24 empagliflozin 10 mg tablet 10 mg PO DAILY 01/10/24 01/10/24 (Jardiance) multivitamin (Daily Multi-Vitamin 1 tab PO DAILY 01/10/24 01/10/24 tablet) omega [id number] oil 300 1 cap PO DAILY 01/10/24 01/10/24 mg-1,000 mg capsule (Fish Oil) Allergies Allergy/AdvReac Type Severity Reaction Status Date / Time No Known Drug Allergies Allergy Verified 09/23/22 06:49 Review of Systems ROS Status of ROS 10 or more systems reviewed and unremark able except as noted in history and below PFSH PFSH Medical History (Updated 01/10/24 @ 14:31 by Marjorie Bhardwaj DO) Atrial fibrillation ?I48.91 - Unspecified atrial fibrillation (ICD-10) CHF (congestive heart failure) ?I50.9 - Heart failure, unspecified (ICD-10) Diabetes mellitus ?E11.9 - Type 2 diabetes mellitus without complications (ICD-10) Hypertension ?I10 - Essential (primary) hypertension (ICD-10) Prostate cancer ?C61 - Malignant neoplasm of prostate (ICD-10) Surgical History (Updated 09/23/22 @ 06:57 by Aleksandr Lam) H/O hernia repair ?Z98.890 - Other specified postprocedural states (ICD-10) ?Z87.19 - Personal history of other diseases of the digestive system (ICD-10) H/O heart artery stent ?Z95.5 - Presence of coronary angioplasty implant and graft (ICD-10) Family History (Updated 01/10/24 @ 13:30 by Sparkle Pacheco RN) Father Family history of myocardial infarction Family history of CHF (congestive heart failure) Brother Family history of CHF (congestive heart failure) Family history of hypertension Sister Family history of cancer Social History (Updated 01/10/24 @ 13:30 by Sparkle Pacheco RN) Within the past year, how often did you have a drink containing alcohol: never Score interpretation: A score less than 4 is consistent with normal alcohol consumption. Smoking status: Former smoker Non-prescribed substance use: denies use Highest level of school completed/degree received: high school graduate Little interest or pleasure in doing things: not at all Feeling down, depressed, or hopeless: not at all Exam Narrative Exam Narrative: Time Seen: [] Vital Signs: [Per nurse's notes.] General: [Alert] Skin: [Warm, dry, no rash.] Head: [Normocephalic, atraumatic.] Neck: [Supple, trachea midline.] Eye: [Pupils are equal, round and reactive to light, extraocular movements are intact, normal conjunctiva.] Ears, nose, mouth and throat: oral mucosa moist. Cardiovascular: [Regular rate and rhythm, no murmur.] Respiratory: [Inspiratory expiratory mild wheezing and diminished breath sounds throughout. Moderate respiratory distress with retractions and hypoxia. Chest wall: [No tenderness, no deformity.] Gastrointestinal: [Soft, nontender, non distended, normal bowel sounds.] MSK: 5 out of 5 muscle strength x 4 extremities no calf pain 3+ edema bilateral lower extremities Lymphatics: [No lymphadenopathy.] Psychiatric: [Cooperative, appropriate mood & affect.] Neurological: [Alert and oriented to person, place, time, and situation, no focal neurological deficit observed.] Constitutional Vital Signs, click to edit/add: Last Vital Signs Temp 96.0 F L 01/10/24 13:26 Pulse 88 01/10/24 13:46 Resp 20 01/10/24 13:26 BP 147/98 H 01/10/24 13:26 Pulse Ox 91 L 01/10/24 13:26 O2 Del Method Nonrebreather 01/10/24 13:26 O2 Flow Rate 15 01/10/24 13:26 FiO2 70 01/10/24 12:10 Course Vital Signs Vital signs: Vital Signs Temperature 98 F 01/10/24 11:21 Pulse Rate 101 H 01/10/24 11:21 Respiratory Rate 18 01/10/24 11:21 Blood Pressure 142/82 H 01/10/24 11:21 Pulse Oximetry 91 L 01/10/24 11:21 Oxygen Delivery Method Nonrebreather 01/10/24 11:21 Oxygen Delivery Flow Rate 15 01/10/24 11:21 Temperature 96.0 F L 01/10/24 13:26 Pulse Rate 88 01/10/24 13:46 Respiratory Rate 20 01/10/24 13:26 Blood Pressure 147/98 H 01/10/24 13:26 Pulse Oximetry 91 L 01/10/24 13:26 Oxygen Delivery Method Nonrebreather 01/10/24 13:26 Oxygen Delivery Flow Rate 15 01/10/24 13:26 Fraction of Inspired Oxygen 70 01/10/24 12:10 MDM - SOB/Dyspnea MDM Narrative Medical decision making narrative: Patient's ABG was concerning for elevated pCO2. Patient was started on Vapotherm shortly after arrival. He was feeling better on the Vapotherm. His BNP was over 3000 and his chest x-ray had findings of fluid overload. He was given IV Lasix. Patient was also given steroids and a DuoNeb. I spoke to Dr. Sahu who is the one who sent the patient over. He is comfortable with care plan for admission to the hospital on Vapotherm. Patient and family are comfortable with care plan for admission. He is stable in ED prior to admission to the floor. Discussed possible ICU admission however our ICU is closed right now and Dr. Sahu will transfer him to a higher level of care if needed but at this point he is very stable. Differential Diagnosis Differential diagnosis: Likely acute exacerbation of chronic obstructive airways disease, congestive heart failure, community acquired pneumonia and asthma with exacerbation Lab Data Attestation: I reviewed the patient's lab results. Labs: Lab Results 01/10/24 01/10/24 01/10/24 Range/Units 11:30 11:42 11:50 WBC 10.6 (4.0-11.0) 10^3/uL RBC 5.07 (4.70-6.10) 10^6/uL Hgb 15.0 (14.0-18.0) g/dL Hct 48.5 (42.0-54.0) % MCV 95.7 H (80.0-94.0) fL MCH 29.6 (25.9-34.0) pg MCHC 30.9 (29.9-35.2) g/dL RDW 16.1 H (11.0-15.0) % Plt Count 214 (150-450) 10^3/uL MPV 10.5 (9.5-13.5) fL Neut % (Auto) 84.2 H (43.0-75.0) % Lymph % (Auto) 5.1 L (20.5-60.0) % Cavalier % (Auto) 7.4 (1.7-12.0) % Eos % (Auto) 2.5 (0.9-7.0) % Baso % (Auto) 0.5 (0.2-2.0) % Neut # (Auto) 9.0 H (1.4-6.5) 10^3/uL Lymph # (Auto) 0.5 L (1.2-3.8) 10^3/uL Cavalier # (Auto) 0.8 (0.3-0.8) 10^3/uL Eos # (Auto) 0.3 (0.0-0.7) 10^3/uL Baso # (Auto) 0.1 (0.0-0.1) 10^3/uL Abs Immat Gran (auto) 0.03 (0.00-0.03) 10^3/uL Imm/Tot Granulo (auto) 0.3 (0.0-0.5) % PT 14.2 H (9.0-11.6) sec INR 1.38 Puncture Site Rt radial ABG pH 7.313 L (7.350-7.450) ABG pCO2 55.8 H* (35.0-45.0) mmHg ABG pO2 90.3 (80.0-100.0) mmHg ABG HCO3 28.3 H (22.0-26.0) mmol/L ABG O2 Saturation 96.1 % ABG Base Excess 2.1 H (-2.0-2.0) mmol/L Charles Test Positive (POSITIVE) Sodium 143 (136-145) mmol/L Potassium 5.1 (3.5-5.1) mmol/L Chloride 105 (98-107) mmol/L Carbon Dioxide 30.8 (21.0-32.0) mmol/L Anion Gap 12.3 BUN 31.0 H (7.0-18.0) mg/dL Creatinine 1.25 (0.70-1.30) mg/dL Est GFR ( Amer) >60 (>=60 mL/min/1.73m^2) Est GFR (Non-Af Amer) 55 L (>=60 mL/min/1.73m^2) BUN/Creatinine Ratio 24.8 Glucose 126 H (74-106) mg/dL Lactate 1.7 (0.4-2.0) mmol/L Calcium 9.2 (8.5-10.1) mg/dL Magnesium 2.0 (1.8-2.4) mg/dL Total Bilirubin 1.4 H (0.2-1.0) mg/dL AST 17 (15-37) U/L ALT 26 (16-63) U/L Alkaline Phosphatase 62 (46-116) U/L Troponin I High Sens 18.6 (4.0-76.1) pg/mL NT-Pro-B Natriuret Pep 3007.0 H* (<=1800.0) pg/mL Total Protein 7.1 (6.4-8.2) g/dL Albumin 3.7 (3.4-5.0) g/dL Globulin 3.4 g/dL Albumin/Globulin Ratio 1.1 TSH 2.331 (0.358-3.740) uIU/mL Thyroxine (T4) 8.80 (4.50-12.10) ug/dL Free T3 1.90 L (2.18-3.98) pg/mL SARS-CoV-2 Ag (CV2AG) Negative (NEGATIVE) ABG Data Attestation: I have reviewed the pertinent ABG results. Imaging Data Chest x-ray: Radiologist's impression: ITS Impressions Chest X-Ray 01/10/24 11:22 IMPRESSION: 1. Small to moderate left pleural effusion and mild left basilar infiltrates versus atelectasis. 2. Mild right basilar infiltrates versus atelectasis. Electronically authenticated by: SHANITA MORRIS Date: 01/10/2024 12:43 ECG Data Attestation: I personally reviewed and interpreted this ECG as follows: Interpretation: EKG INTERPRETATION Time: [] 1128 Rate: [] 77 Rhythm: _ [] A-fib ST segments: _ [] No acute ST elevation or depression T waves: _ [] Ectopy: _ [] P wave/PA interval: _ [] QRS interval: _ [] QT interval: _ [] Comparison: _ [] Comparison EKG date: [] Performed by: [self] right bundle branch block Discharge Plan Discharge Chief Complaint: Shortness of Breath/Dyspnea Clinical Impression: Congestive heart failure, COPD (chronic obstructive pulmonary disease), Hypoxia Patient Disposition: Admitted As Inpatient Time of Disposition Decision: 14:30 Condition: Fair Discharge Date/Time: 01/10/24 13:07
[2024-01-10] MEDS: IPRATROPIUM/ALBUTEROL SULFATE 3 ML AMPUL.NEB IH ×3 (11:32→23:03)
[2024-01-10 11:38] LABS: Basophils Absolute Auto 0.1 10^3/uL (0.0-0.1); Basophils Percent Auto 0.5 % (0.2-2.0); Eosinophils Absolute Auto 0.3 10^3/uL (0.0-0.7); Eosinophils Percent Auto 2.5 % (0.9-7.0); Hematocrit 48.5 % (42.0-54.0); Immature Granulocytes Abs Auto 0.03 10^3/uL (0.00-0.03); Immature Granulocytes Pct Auto 0.3 % (0.0-0.5); Lymphocytes Absolute Auto 0.5 10^3/uL (1.2-3.8); Lymphocytes Percent Auto 5.1 % (20.5-60.0); Mean Corpuscular HGB Conc 30.9 g/dL (29.9-35.2); Mean Corpuscular Hemoglobin 29.6 pg (25.9-34.0); Mean Corpuscular Volume 95.7 fL (80.0-94.0); Mean Platelet Volume 10.5 fL (9.5-13.5); Monocytes Absolute Auto 0.8 10^3/uL (0.3-0.8); Monocytes Percent Auto 7.4 % (1.7-12.0); Neutrophils Percent Auto 84.2 % (43.0-75.0); Platelet Count 214 10^3/uL (150-450); Red Blood Count 5.07 10^6/uL (4.70-6.10); Red Cell Distribution Width 16.1 % (11.0-15.0); White Blood Count 10.6 10^3/uL (4.0-11.0)
--- OUTSIDE RECORDS SUMMARY | 2024-01-10 11:42 | XMS_ITS | CCD ---
Author Organization [facility] Care Team Providers Care Chargeback Specialist Name Role Phone RAMYA FLANAGAN Attending Unavailable RAMYA FLANAGAN Admitting Unavailable JOSY SAHU Referring Unavailable JOSY SAHU Primary Care Unavailable SEVERIANOBABAK Admitting Unavailable SEVERIANOADEBABAK Consulting Unavailable SEVERIANOADEBABAK Attending Unavailable NUBIA, DR FERRIS Primary Care Unavailable SEVERIANOBABAK Attending Unavailable SEVERIANOBABAK Admitting Unavailable SEVERIANOBABAK Consulting Unavailable NUBIA, DR FERRIS Primary Care Unavailable KYA, DR BUI Admitting Unavailable NUBIA, DR FERRIS Primary Care Unavailable KYA, DR BUI Consulting Unavailable KYA, DR BUI Attending Unavailable ALFIE, DR KILGORE Admitting Unavailable ALFIE, DR KILGORE Consulting Unavailable ALFIE, DR KILGORE Attending Unavailable NUBIA, DR FERRIS Primary Care Unavailable Josy Sahu Primary Care Physician [phone] RAMYA FLANAGAN Attending Unavailable JACKY RUIZ Attending Unavailable JACKY RUIZ Attending Unavailable Yousuf MARTIN Attending Unavailable Yousuf MARTIN Attending Unavailable KELY BORDEN Attending Unavailable KELY BORDEN Attending Unavailable KELY BORDEN Attending Unavailable KELY BORDEN Attending Unavailable KELY BORDEN Attending Unavailable Medications Current Medications Medication Drug Class(es) Dates Sig (Normalized) Sig (Original) Amlodipine (3 sources) Dihydropyridine Calcium Channel Kendy Start: 04-25-2019 amlodipine Oral, Daily, Refills(s) 0 Start Date: 04/25/19 Status: Ordered atorvastatin 80 mg oral tablet (3 sources) HMG-CoA Reductase Inhibitor Start: 04-25-2021 take 1 mg by mouth once daily atorvastatin 80 mg Tab mg tab(s), Oral, Daily, Refills(s) 0 Start Date: 04/25/21 Status: Ordered carvedilol 3.125 mg oral tablet (3 sources) alpha-Adrenergic Kendy, beta-Adrenergic Kendy Start: 04-25-2021 take 1 mg by mouth twice daily carvedilol 3.125 mg Tab mg tab(s), Oral, BID, Refills(s) 0 Start Date: 04/25/21 Status: Ordered Start: 04-25-2021 take 1 mg by mouth twice daily carvedilol 3.125 mg Tab mg tab(s), Oral, BID, Refills(s) 0 Start Date: 04/25/21 Status: Ordered Cinnamon Preparation (3 sources) Non-Standardized Food Allergenic Extract Start: 04-25-2019 take 1 mg by mouth twice daily cinnamon mg, Oral, BID, Refills(s) 0 Start Date: 04/25/19 Status: Ordered clopidogrel 75 mg oral tablet (3 sources) P2Y12 Platelet Inhibitor Start: 04-25-2021 take 1 mg by mouth once daily clopidogrel 75 mg Tab mg tab(s), Oral, Daily, Refills(s) 0 Start Date: 04/25/21 Status: Ordered ferrous sulfate 325 mg delayed release oral tablet (3 sources) Start: 04-25-2021 take 1 mg by mouth once daily ferrous sulfate 325 mg oral enteric coated tablet mg tab(s), Oral, Daily, Refills(s) 0 Start Date: 04/25/21 Status: Ordered Fish Oils (3 sources) Start: 04-25-2019 Fish Oil Oral, Refill(s) 0 Start Date: 04/25/19 Status: Ordered furosemide 40 mg oral tablet (3 sources) Loop Diuretic Start: 04-25-2021 take 1 mg by mouth once daily furosemide 40 mg Tab mg tab(s), Oral, Daily, Refills(s) 0 Start Date: 04/25/21 Status: Ordered glimepiride (3 sources) Sulfonylurea Start: 04-25-2019 glimepiride Oral, Daily, Refills(s) 0 Start Date: 04/25/19 Status: Ordered Iron Chews (3 sources) Start: 04-25-2019 take 1 mg by mouth once daily Iron Chews mg, Oral, Daily, Refills(s) 0 Start Date: 04/25/19 Status: Ordered losartan potassium 25 mg oral tablet (3 sources) Angiotensin 2 Receptor Kendy Start: 04-25-2021 take 1 mg by mouth once daily losartan 25 mg Tab mg tab(s), Oral, Daily, Refills(s) 0 Start Date: 04/25/21 Status: Ordered metFORMIN (3 sources) Biguanide Start: 04-25-2019 metformin Oral, Refills(s) 0 Start Date: 04/25/19 Status: Ordered 24 hr metoprolol succinate 50 mg extended release oral tablet (3 sources) beta-Adrenergic Kendy Start: 04-25-2019 take 1 mg by mouth once daily metoprolol 50 mg ER Tab mg tab(s), Oral, Daily, Refills(s) 0 Start Date: 04/25/19 Status: Ordered Multi Vitamin+ (3 sources) Start: 04-25-2019 Multi Vitamin+ Refill(s) 0 Start Date: 04/25/19 Status: Ordered pantoprazole 40 mg delayed release oral tablet (3 sources) Proton Pump Inhibitor Start: 10-13-2022 take 1 mg by mouth once daily Pantoprazole [address] Tab mg tab(s), Oral, Daily, Refills(s) 0 Start Date: 10/13/22 Status: Ordered Xarelto (3 sources) Factor Xa Inhibitor Start: 04-25-2019 Xarelto Oral, Refills(s) 0 Start Date: 04/25/19 Status: Ordered Simvastatin (3 sources) HMG-CoA Reductase Inhibitor Start: 04-25-2019 simvastatin [...] day(s), # 2 tab(s), Refills(s) 0, Pharmacy: [facility]/pharmacy #[id number], 169, cm, 10/13/22 9:51:00 EDT, Height/Length Dosing, 81.2, kg, 10/13/22 9:51:00 EDT, W... Start Date: 10/13/22 Stop Date: 10/15/22 Status: Ordered Problems Problem Classification Problem Date Documented Date Episodic/Chronic Cancer of prostate (3 sources) Malignant tumor of prostate 04-25-2019 Chronic Cancer of prostate (6 sources) Personal history of malignant neoplasm of prostate; Translations: [History of malignant neoplasm of prostate] Onset: 04-21-2022 Episodic Cardiac dysrhythmias (4 sources) Unspecified atrial fibrillation; Translations: [Atrial fibrillation] Onset: 05-06-2021 04-25-2019 Chronic Chronic obstructive pulmonary disease and bronchiectasis (2 sources) Emphysema, unspecified; Translations: [Emphysema, unspecified] Onset: 03-29-2023 Chronic Congestive heart failure; nonhypertensive (2 sources) Chronic systolic (congestive) heart failure; Translations: [Acute systolic (congestive) heart failure] Onset: 05-06-2021 Chronic Coronary atherosclerosis and other heart disease (1 source) 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; Translations: [ASHD [place] CA W/O ANGINA PECTORIS] Onset: 04-21-2022 Chronic Diabetes mellitus without complication (7 sources) Type 2 diabetes mellitus without complications; Translations: [Diabetes mellitus] Onset: 05-04-2021 Chronic Diabetes mellitus without complication (3 sources) Glycosuria 04-25-2019 Episodic Disorders of lipid metabolism (5 sources) Hyperlipidemia; Translations: [Mixed hyperlipidemia] Onset: 04-07-2022 04-25-2019 Chronic Essential hypertension (7 sources) Essential (primary) hypertension; Translations: [Hypertensive disorder] Onset: 10-25-2021 Chronic Genitourinary symptoms and ill-defined conditions (10 sources) Nocturia; Translations: [Nocturia] Onset: 04-21-2022 Episodic Hyperplasia of prostate (12 sources) Benign prostatic hyperplasia with lower urinary tract symptoms; Translations: [Benign prostatic hypertrophy with outflow obstruction] Onset: 04-20-2022 Chronic Inflammatory conditions of male genital organs (3 sources) Prostatitis 04-25-2019 Episodic Other and ill-defined heart disease (2 sources) Cardiomegaly; Translations: [Cardiomegaly] Onset: 03-29-2023 Chronic Other diseases of kidney and ureters (2 sources) 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; Translations: [Cyst of kidney, acquired] Onset: 10-13-2022 Episodic Other diseases of kidney and ureters (3 sources) Cyst of kidney 10-13-2022 Episodic Other male genital disorders (3 sources) Disorder of male genital organ 04-25-2019 Episodic Other screening for suspected conditions (not mental disorders or infectious disease) (3 sources) Raised prostate specific antigen 04-25-2019 Episodic Unclassified (3 sources) Prostatic intraepithelial neoplasia high grade 04-25-2019 Unclassified (2 sources) Permanent atrial fibrillation; Translations: [Permanent atrial fibrillation] Onset: 04-07-2022 Results Test Name Value Interpretation Reference Range Facility Urology Office/Clinic Noteon 10-19-2023 Urology Office/Clinic Note Urology Office/Clinic Note Chief Complaint 1 year follow up HPI Staff 1 yr w/ PSA. Dx: BPH with obstruction, hx of prostate cancer *Brachytherapy 2014*, nocturia, renal cyst, gross hematuria. *No urological meds NEG FISH/cytol 10/13/22. S/p Cysto 10/17/22. TAYLA done 10/19/22 at [facility] - results given over the phone. Previous PSA 04/21/22 - <0.13 Current PSA 06/27/23 - <0.13 Dysuria: denies pain or burning Incomplete bladder emptying: denies Hematuria: denies visible blood Frequency: sometimes Urgency: sometimes Nocturia: 3x a night Stream: denies hesitancy, denies weak stream Leaking: yes Post void dripping: denies Wearing pads/ Depends: yes wear pads daily, doesn't have to change Urge incontinence: denies Stress incontinence: denies Incontinence without Sensory Awareness: denies Abdominal pain: denies Flank pain: denies Sexual complaints: denies History of Present Illness Tests reviewed: reviewed UA and PSA. I have reviewed the previous health record information and history for this patient from Dr. Martin. I have reviewed and verified the staff HPI to be accurate for this encounter. There have been no associated fever, chills, flank pain, or blood in the urine. Denies any urinary infections since last encounter. Review of Systems PHQ Score Initial Depression Screen Score: 0 SCORE ROS - Provider Constitutional: denies weight loss, [...] HPI. Physical Exam Vitals & Measurements HR: 16(Peripheral) RR: 16 BP: 130/70 HT: 67 in HT: 169 cm WT: 81.2 kg WT: 178.64 lb BMI: 28.43 General Appearance: alert, no distress, well nourished, well developed male. Assessment/Plan 1. History of prostate cancer (Z85.46: Personal history of malignant neoplasm of prostate) PSA 04/21/19 - 0.12 04/13/20 - <0.05 04/18/21 - 0.14 04/21/22 - <0.13 06/27/23 - <0.13 S/p Brachytherapy 10/2014. Stable PSA. Will cont to monitor. -PSA in 12 mos 2. BPH with urinary obstruction (N40.1: Benign prostatic hyperplasia with lower urinary tract symptoms) Not taking any BPH meds. Strong stream. Nocturia 3x. Mild urgency but does not leak. Wears a pad but doesn't have to change. -Cont symptomatic monitoring 3. Gross hematuria (R31.0: Gross hematuria) Pt presented to [facility] ER 09/23/22 with gross hematuria. Only for one day. Neg urine culture. S/p cysto 10/17/22 ~neg for b.t. or lesions. Typical telangiectatic radiation changes. FISH/cytol neg. Renal US 10/19/22 TB - Small bladder diverticulum. UA today shows trace-intact blood. Denies recurrence of gross hematuria. -Call if gross blood recurs 4. Renal cyst (N28.1: Cyst of kidney, acquired) CT AP w/o con 09/23/22 - several adjacent cysts inferior of the Rt kidney measuring up to 8.5 cm. Renal US 10/19/22 [facility] - bilateral renal cysts favoring benign etiology, also seen on prior MRI and CT studies. -No follow up required Follow-up With When Contact Information ALFIE WISE, Yousuf Barroso, [address] [place] [address]- Additional Instructions: 1 year w/ PSA Patient Education Benign Prostatic Hyperplasia I, Lianet Massey, personally scribed for Dr. Martin on 10/19/2023 11:19:03. . Documentation recorded by the Lianet agudelo, accurately reflects the services(s) I performed and decisions made by me. Authenticated by Dr. Martin on 10/19/2023 11:20:05. Problem List/Past Medical History Ongoing Atrial fibrillation BPH (benign prostatic hyperplasia) BPH with urinary obstruction Diabetes Elevated PSA Glycosuria Gross hematuria High grade prostatic intraepithelial neoplasia History of prostate cancer Hyperlipidemia Hypertension Nocturia Prostatitis Renal cyst Right hydrocele Historical Prostate cancer Procedure/Surgical History Cystoscopy (10/17/2022), Placement of stent in cardiac conduit (08/2020), carotid endarderectomy, Coronary artery surgery, History of hernia repair. Medications amlodipine, Oral, Daily atorvastatin 80 mg Tab, Oral, Daily carvedilol 3.125 mg Tab, Oral, BID cinnamon, Oral, BID clopidogrel 75 mg Tab, Oral, Daily ferrous sulfate 325 mg oral enteric coated tablet, Oral, Daily Fish Oil, Oral furosemide 40 mg Tab, Oral, Daily glimepiride, Oral, Daily Iron Chews, Oral, Daily losartan 25 mg Tab, Oral, Daily metformin, Oral metoprolol 50 mg ER Tab, Oral, Daily Multi Vitamin+ Pantoprazole [address] Tab, Oral, Daily simvastatin, Oral Xarelto, Oral Allergie (more content not included)... Normal [facility] Comment on above: Result Comment: Elec tronically Signed By: Yousuf MARTIN MD\.br\Date and Time Signed: 10/19/23 11:20 EDT\.br\Electronically Co-Signed By: Lianet Massey.br\Date and Time Co-Signed: 10/19/23 11:19 EDT Office Visiton 09-25-2023 Follow-up visit [id number] Khadar Ramos 1940 M Date Provider Department Center 09/25/2023 JACKY ESQUIVEL [facility] Family History Problem Relation Age of Onset Other Father Coronary artery disease Brother Other Brother Family Status - Relation Status Age at Father Brother Level of Service:52271 DC OFFICE/OUTPATIENT ESTABLISHED LOW [facility] 20 MIN Reason for Visit and Comments: Coronary Artery Disease [187] Atrial Fibrillation [80] Normal [facility] 36on 04-19-2023 36 Please let him know his PFT was abnormal showing signs of COPD. Please forward results to PCP. Please have him follow-up with PCP for further management or we can refer him to pulmonary. Thanks! Normal [facility] Telephoneon 04-19-2023 Telephone [id number] AlemfionaKhadar Smart 1940 [facility] Provider Department Center 04/19/2023 JACKY ESQUIVEL [facility] Family History Problem Relation Age of Onset Other Father Coronary artery disease Brother Other Brother Family Status - Relation Status Age at Father Brother Normal [facility] Telemedicineon 03-29-2023 Telemedicine [id number] LópezKhadar Smart 1940 Provider Department Center 03/29/2023 JACKY ESQUIVEL Family History Problem Relation Age of Onset Other Father Coronary artery disease Brother Other Brother Family Status - Relation Status Age at Father Brother Level of Service:86941 DC OFFICE/OUTPATIENT ESTABLISHED MOD MDM 30 MIN Reason for Visit and Comments: Telehealth Audio/video Visit [871] Congestive Heart Failure [127] Coronary Artery Disease [187] Hypertension [544512] Atrial Fibrillation [80] Normal [facility] Office Visiton 10-23-2022 Follow-up visit [id number] LópezKhadar Smart 1940 [facility] Provider Department Center 10/23/2022 RAMYA BUTLER RAE [place] Family History Problem Relation Age of Onset Other Father Coronary artery disease Brother Other Brother Family Status - Relation Status Age at Father Brother Level of Service:21040 DC OFFICE/OUTPATIENT ESTABLISHED MOD MDM 30-39 MIN Normal [facility] CBC AUTO DIFFon 04-20-2022 BASO # 0.0 103/ul Normal 0.0-0.1 [facility] Comment on above: Performed By: #### C BC #### [facility] [address] [address] [address] Nic Marie Basophils/100 WBC (Bld) 0.5 % Normal 0.2-2.0 [facility] Comment on above: Performed By: #### C BC #### [facility] [address] [place] [address] Dr. Nic Marie EO # 0.7 103/ul Normal 0.0-0.7 [facility] Comment on above: Performed By: #### C BC #### [facility] [address] [place] [address] Dr. Nic Marie Eosinophils/100 WBC (Bld) 8.8 % Critically high 0.9-7.0 [facility] Comment on above: Performed By: #### C BC #### [facility] [address] [place] [address] Dr. Nic Marie Erythrocyte distribution width (RBC) [Ratio] 18.0 % Critically high 11.0-15.0 [facility] Comment on above: Performed By: #### C BC #### [facility] [address] [place] [address] Dr. Nic Marie Hematocrit (Bld) [Volume fraction] 44.3 % Normal 42.0-54.0 [facility] Comment on above: Performed By: #### C BC #### [facility] [address] [place] [address] Dr. Nic Marie Hemoglobin (Bld) [Mass/Vol] 13.6 g/dL Critically low 14.0-18.0 [facility] Comment on above: Performed By: #### C BC #### [facility] [address] [place] [address] Dr. Nic Marie IG # 0.05 10e3/ul Critically high 0.00-0.03 [facility] Comment on above: Performed By: #### C BC #### [facility] [address] [place] [address] Dr. Nic Marie IG % 0.6 % Critically high 0.0-0.5 [facility] Comment on above: Performed By: #### C BC #### [facility] [address] [place] [address] Dr. Nic Marie LYMPH # 0.8 103/ul Critically low 1.2-3.8 [facility] Comment on above: Performed By: #### C BC #### [facility] [address] [place] [address] Dr. Nic Marie Lymphocytes/100 WBC (Bld) 10.7 % Critically low 20.5-60.0 [facility] Comment on above: Performed By: #### C BC #### [facility] [address] [place] [address] Dr. Nic Marie MANUAL DIFF REQ NO Normal [facility] Comment on above: Performed By: #### C BC #### [facility] [address] [place] [address] Dr. Nic Marie MCH (RBC) [Entitic mass] 24.9 pg Critically low 25.9-34.0 [facility] Comment on above: Performed By: #### C BC #### [facility] [address] [place] [address] Dr. Nic Marie MCHC (RBC) [Mass/Vol] 30.7 g/dL Normal 29.9-35.2 [facility] Comment on above: Performed By: #### C BC #### [facility] [address] [place] [address] Dr. Nic Marie MCV (RBC) [Entitic vol] 81.0 fL Normal 80.0-94.0 [facility] Comment on above: Performed By: #### C BC #### [facility] [address] [place] [address] Dr. Nic Marie MONO # 0.9 103/ul Critically high 0.3-0.8 [facility] Comment on above: Performed By: #### C BC #### [facility] [address] [place] [address] Dr. Nic Marie Monocytes/100 WBC (Bld) 11.1 % Normal 1.7-12.0 [facility] Comment on above: Performed By: #### C BC #### [facility] [address] [place] [address] Dr. Nic Marie NEUT # 5.3 103/ul Normal 1.4-6.5 [facility] Comment on above: Performed By: #### C BC #### [facility] [address] [address] [address] Nic Marie Neutrophils/100 WBC (Bld) 68.3 % Normal 43.0-75.0 [facility] Comment on above: Performed By: #### C BC #### [facility] [address] [address] [address] Nic Marie Platelet mean volume (Bld) [Entitic vol] 10.0 fL Normal 9.5-13.5 [facility] Comment on above: Performed By: #### C BC #### [facility] [address] [place] [address] Dr. Nic Marie PLT 203 103/ul Normal 150-450 [facility] Comment on above: Performed By: #### C BC #### [facility] [address] [place] [address] Dr. Nic Marie RBC 5.47 106/ul Normal 4.70-6.10 [facility] Comment on above: Performed By: #### C BC #### [facility] [address] [place] [address] Dr. Nic Marie WBC 7.8 103/ul Normal 4.0-11.0 [facility] Comment on above: Performed By: #### C BC #### [facility] [address] [place] [address] Dr. Nic Marie LIPID PROFILEon 04-20-2022 CHOL-HDL RATIO NORM SEE BELOW Normal [facility] Comment on above: Result Comment: 3.3 - 4.4 LOW RISK 4.4 - 7.1 AVERAGE RISK 7.1 - 11.0 MODERATE RISK >11.0 HIGH RISK Performed By: #### C MP, LIPID #### [facility] [address] [place] [address] Dr. Nic Marie Cholesterol [Mass/Vol] 108 mg/dL Normal <=200 [facility] Comment on above: Performed By: #### C MP, LIPID #### [facility] [address] [place] [address] Dr. Nic Marie Cholesterol in HDL [Mass/Vol] 36 mg/dL Critically low 40-60 [facility] Comment on above: Performed By: #### C MP, LIPID #### [facility] [address] [address] [address] Nic Marie Cholesterol in LDL [Mass/Vol] 54.2 mg/dL Normal [facility] Comment on above: Performed By: #### C MP, LIPID #### [facility] [address] [place] [address] Dr. Nic Marie Cholesterol.total/Ch olesterol in HDL [Mass ratio] 3.0 {ratio} Normal [facility] Comment on above: Performed By: #### C MP, LIPID #### [facility] [address] [place] [address] Dr. Nic Marie HDL NORMAL > or = 60 mg/dl - LOW CARDIOVASCULAR RISK <40 mg/dl - HIGH CARDIOVASCULAR RISK Normal [facility] Comment on above: Performed By: #### C MP, LIPID #### [facility] [address] [place] [address] Dr. Nic Marie LDL CALC NORMAL SEE BELOW Normal [facility] Comment on above: Result Comment: <100 mg/dl OPTIMAL 100 - 129 mg/dl NEAR OR ABOVE OPTIMAL 130 - 159 mg/dl BORDERLINE HIGH 160 - 189 mg/dl HIGH >190 mg/dl VERY HIGH Performed By: #### C MP, LIPID #### [facility] [address] [place] [address] Dr. Nic Marie Triglyceride [Mass/Vol] 89 mg/dL Normal <=150 [facility] Comment on above: Performed By: #### C MP, LIPID #### [facility] [address] [place] [address] Dr. Nic Marie VLDL CALC 17.8 mg/dL Normal [facility] Comment on above: Performed By: #### C MP, LIPID #### [facility] [address] [place] [address] Dr. Nic Marie PROF 14(COMP METB)on 023 Albumin [Mass/Vol] 3.7 g/dL Normal 3.4-5.0 [facility] Comment on above: Performed By: #### C MP, LIPID #### [facility] [address] [address] [address] Nic Marie Albumin/Globulin [Mass ratio] 1.0 {ratio} Normal [facility] Comment on above: Performed By: #### C MP, LIPID #### [facility] [address] [address] [address] Nic Marie ALP [Catalytic activity/Vol] 59 U/L Normal 46-116 [facility] Comment on above: Performed By: #### C MP, LIPID #### [facility] [address] [address] [address] Nic Marie ALT [Catalytic activity/Vol] 28 U/L Normal 16-63 [facility] Comment on above: Performed By: #### C MP, LIPID #### [facility] [address] [place] [address] Dr. Nic Marie Anion gap [Moles/Vol] 12.1 mmol/L Normal [facility] Comment on above: Performed By: #### C MP, LIPID #### [facility] [address] [address] [address] Nic Marie AST [Catalytic activity/Vol] 18 U/L Normal 15-37 [facility] Comment on above: Performed By: #### C MP, LIPID #### [facility] [address] [address] [address] Nic Marie Bilirubin [Mass/Vol] 0.6 mg/dL Normal 0.2-1.0 [facility] Comment on above: Performed By: #### C MP, LIPID #### [facility] [address] [address] [address] Nic Marie Calcium [Mass/Vol] 9.6 mg/dL Normal 8.5-10.1 [facility] Comment on above: Performed By: #### C MP, LIPID #### [facility] [address] [address] [address] Nic Marie Chloride [Moles/Vol] 104 mmol/L Normal 98-107 [facility] Comment on above: Performed By: #### C MP, LIPID #### [facility] [address] [address] [address] Nic Marie CO2 [Moles/Vol] 30.3 mmol/L Normal 21.0-32.0 [facility] Comment on above: Performed By: #### C MP, LIPID #### [facility] [address] [place] [address] Dr. Nic Marie Creatinine [Mass/Vol] 0.99 mg/dL Normal 0.70-1.30 [facility] Comment on above: Performed By: #### C MP, LIPID #### [facility] [address] [place] [address] Dr. Nic Marie EGFR-AF ITALIAN >60 Normal >=60 [facility] [facility] Comment on above: Performed By: #### C MP, LIPID #### [facility] [address] [place] [address] Dr. Nic Marie EGFR-NON AF ITALIAN >60 Normal >=60 [facility] Comment on above: Performed By: #### C MP, LIPID #### [facility] [address] [place] [address] Dr. Nic Marie Globulin (S) [Mass/Vol] 3.6 g/dL Normal [facility] Comment on above: Performed By: #### C MP, LIPID #### [facility] [address] [place] [address] Dr. Nic Marie Glucose [Mass/Vol] 114 mg/dL Critically high 74-106 [facility] Comment on above: Performed By: #### C MP, LIPID #### [facility] [address] [place] [address] Dr. Nic Marie Potassium [Moles/Vol] 4.4 mmol/L Normal 3.5-5.1 [facility] Comment on above: Performed By: #### C MP, LIPID #### [facility] [address] [place] [address] Dr. Nic Marie Protein [Mass/Vol] 7.3 g/dL Normal 6.4-8.2 [facility] Comment on above: Performed By: #### C MP, LIPID #### [facility] [address] [address] [address] Nic Marie Sodium [Moles/Vol] 142 mmol/L Normal 136-145 [facility] Comment on above: Performed By: #### C MP, LIPID #### [facility] [address] [address] [address] Nic Marie Urea nitrogen [Mass/Vol] 23.0 mg/dL Critically high 7.0-18.0 [facility] Comment on above: Performed By: #### C MP, LIPID #### [facility] [address] [address] [address] Nic Marie Urea nitrogen/Creatinine [Mass ratio] 23.2 mg/mg Normal [facility] Comment on above: Performed By: #### C MP, LIPID #### [facility] [address] [place] [address] Dr. Nic Marie PROF CHEM 8 (BAS METB)on Anion gap [Moles/Vol] 13.0 mmol/L Normal [facility] Comment on above: Performed By: #### P SAD #### [facility] [address] [address] [address] Nic Marie Calcium [Mass/Vol] 9.0 mg/dL Normal 8.5-10.1 [facility] Comment on above: Performed By: #### P SAD #### [facility] [address] [address] [address] Nic Marie Chloride [Moles/Vol] 100 mmol/L Normal 98-107 [facility] Comment on above: Performed By: #### P SAD #### [facility] [address] [address] [address] Nic Marie CO2 [Moles/Vol] 27.2 mmol/L Normal 21.0-32.0 [facility] Comment on above: Performed By: #### P SAD #### [facility] [address] [address] [address] Nic Marie Creatinine [Mass/Vol] 1.18 mg/dL Normal 0.70-1.30 [facility] Comment on above: Performed By: #### P SAD #### [facility] [address] [address] [address] Nic Marie EGFR-AF ITALIAN >60 Normal >=60 [facility] Comment on above: Performed By: #### P SAD #### [facility] [address] [address] [address] Nic Marie EGFR-NON AF ITALIAN =60 Normal >=60 [facility] Comment on above: Performed By: #### P SAD #### [facility] [address] [address] [address] Nic Marie Glucose [Mass/Vol] 238 mg/dL Critically high 74-106 [facility] Comment on above: Performed By: #### P SAD #### [facility] [address] [place] [address] Dr. Nic Marie Potassium [Moles/Vol] 4.2 mmol/L Normal 3.5-5.1 [facility] Comment on above: Performed By: #### P SAD #### [facility] [address] [place] [address] Dr. Nic Marie Sodium [Moles/Vol] 136 mmol/L Normal 136-145 [facility] Comment on above: Performed By: #### P SAD #### [facility] [address] [place] [address] Dr. Nic Marie Urea nitrogen [Mass/Vol] 30.0 mg/dL Critically high 7.0-18.0 [facility] Comment on above: Performed By: #### P SAD #### [facility] [address] [place] [address] Dr. Nic Marie Urea nitrogen/Creatinine [Mass ratio] 25.4 mg/mg Normal [facility] Comment on above: Performed By: #### P SAD #### [facility] [address] [place] [address] Dr. Nic Marie CBC W MANUAL DIFFon 05-05-19 22 ANISOCYTOSIS SLIGHT Normal [facility] Comment on above: Performed By: #### C DAMIAN #### [facility] [address] [place] [address] Dr. Nic Marie ATYPICAL LYMPH # Normal [facility] Comment on above: Performed By: #### C BCMAN #### [facility] [address] [place] [address] Dr. Nic Marie ATYPICAL LYMPH % Normal [facility] Comment on above: Performed By: #### C BCMAN #### [facility] [address] [place] [address] Dr. Nic Marie BAND # Normal 0.0-0.3 [facility] Comment on above: Performed By: #### C BCMAN #### [facility] [address] [place] [address] Dr. Nic Marie BAND % Normal 0-5 [facility] Comment on above: Performed By: #### C BCMAN #### [facility] [address] [place] [address] Dr. Nic Marie BASOM # 0.15 103/ul Critically high 0.00-0.10 [facility] Comment on above: Performed By: #### C BCMAN #### [facility] [address] [place] [address] Dr. Nic Marie BASOM % 1.0 % Normal 0.2-2.0 [facility] Comment on above: Performed By: #### C BCMAN #### [facility] [address] [place] [address] Dr. Nic Marie BLAST # Normal [facility] Comment on above: Performed By: #### C BCMAN #### [facility] [address] [place] [address] Dr. Nic Marie BLAST % Normal [facility] Comment on above: Performed By: #### C BCMAN #### [facility] [address] [place] [address] Dr. Nic Marie CORRECTED WBC Normal 4.0-11.0 [facility] Comment on above: Performed By: #### C BCMAN #### [facility] [address] [place] [address] Dr. Nic Marie EOS # 0.73 103/ul Critically high 0.00-0.70 [facility] Comment on above: Performed By: #### C DAMIAN #### [facility] [address] [address] [address] Nic Marie EOS% 5.0 % Normal 0.9-7.0 [facility] Comment on above: Performed By: #### C DAMIAN #### [facility] [address] [address] [address] Nic Marie HCT 38.1 % Critically low 42.0-54.0 [facility] Comment on above: Performed By: #### C DAMIAN #### [facility] [address] [address] [address] Nic Marie HGB 10.4 g/dl Critically low 14.0-18.0 [facility] Comment on above: Performed By: #### C DAMIAN #### [facility] [address] [address] [address] Nic Marie HYPOCHROMASIA SLIGHT Normal [facility] Comment on above: Performed By: #### C DAMIAN #### [facility] [address] [address] [address] Nic Marie LYMPHM # 0.58 103/ul Critically low 1.20-3.80 [facility] Comment on above: Performed By: #### C DAMIAN #### [facility] [address] [address] [address] Nic Marie LYMPHM% 4.0 % Critically low 20.5-60.0 [facility] Comment on above: Performed By: #### C DAMIAN #### [facility] [address] [address] [address] Nic Marie MCH 19.3 pg Critically low 25.9-34.0 [facility] Comment on above: Performed By: #### C DAMIAN #### [facility] [address] [address] [address] Nic Marie MCHC 27.3 g/dl Critically low 29.9-35.2 [facility] Comment on above: Performed By: #### C DAMIAN #### [facility] [address] [address] [address] Nic Marie MCV 70.6 fL Critically low 80.0-94.0 [facility] Comment on above: Performed By: #### C DAMIAN #### [facility] [address] [place] [address] Dr. Nic Marie METAMYELOCYTE # Normal [facility] Comment on above: Performed By: #### C DAMIAN #### [facility] [address] [place] [address] Dr. Nic Marie METAMYELOCYTE % Normal [facility] Comment on above: Performed By: #### C DAMIAN #### [facility] [address] [place] [address] Dr. Nic Marie MONOM# 0.58 103/ul Normal 0.30-0.80 [facility] Comment on above: Performed By: #### C DAMIAN #### [facility] [address] [place] [address] Dr. Nic Marie MONOM% 4.0 % Normal 1.7-12.0 [facility] Comment on above: Performed By: #### C DAMIAN #### [facility] [address] [place] [address] Dr. Nic Marie MPV 9.7 fL Normal 9.5-13.5 [facility] Comment on above: Performed By: #### C DAMIAN #### [facility] [address] [place] [address] Dr. Nic Marie MYELOCYTE # Normal [facility] Comment on above: Performed By: #### C DAMIAN #### [facility] [address] [place] [address] Dr. Nic Marie MYELOCYTE % Normal [facility] Comment on above: Performed By: #### C DAMIAN #### [facility] [address] [place] [address] Dr. Nic Marie NRBC Normal [facility] Comment on above: Performed By: #### C DAMIAN #### [facility] [address] [place] [address] Dr. Nic Marie PLT 347 103/ul Normal 150-450 [facility] Comment on above: Performed By: #### C DAMIAN #### [facility] [address] [address] [address] Nic Marie RBC 5.40 106/ul Normal 4.70-6.10 [facility] Comment on above: Performed By: #### C DAMIAN #### [facility] [address] [id number] Nic Marie RDW 22.2 % Critically high 11.0-15.0 [facility] Comment on above: Performed By: #### C DAMIAN #### [facility] [address] [address] [address] Nic Marie SEG # 12.56 103/ul Critically high 1.40-6.50 [facility] Comment on above: Performed By: #### C DAMIAN #### [facility] [address] [address] [address] Nic Marie SEG % 86.0 % Critically high 43.0-75.0 [facility] Comment on above: Performed By: #### C DAMIAN #### [facility] [address] [address] [address] Nic Marie WBC 14.6 103/ul Critically high 4.0-11.0 [facility] Comment on above: Performed By: #### C DAMIAN #### [facility] [address] [address] [address] Nic Marie GLYCOHEMOGLOBIN A1Con 2021 ADA RECOMMENDATION ADA THERAPEUTIC TARGET 6.0 - 7.0 ACTION SUGGESTED > 7.0 Normal [facility] Comment on above: Performed By: #### A 1C #### [facility] [address] [address] [address] Nic Marie Glucose [Mass/Vol] 171 mg/dL Normal [facility] Comment on above: Performed By: #### A 1C #### [facility] [address] [address] [address] Nic Marie HbA1c (Bld) [Mass fraction] 7.6 % Critically high <=6.0 [facility] Comment on above: Performed By: #### A 1C #### [facility] [address] [address] [address] Nic Marie LIPID PROFILEon 05-04-2021 CHOL-HDL RATIO NORM SEE BELOW Normal [facility] Comment on above: Result Comment: 3.3 - 4.4 LOW RISK 4.4 - 7.1 AVERAGE RISK 7.1 - 11.0 MODERATE RISK >11.0 HIGH RISK Performed By: #### L IPID, TSH, MG, CMP #### [facility] [address] [address] [address] Nic Marie Cholesterol [Mass/Vol] 97 mg/dL Normal <=200 [facility] Comment on above: Performed By: #### L IPID, TSH, MG, CMP #### [facility] [address] [address] [address] Nic Marie Cholesterol in HDL [Mass/Vol] 34 mg/dL Normal [facility] Comment on above: Performed By: #### L IPID, TSH, MG, CMP #### [facility] [address] [address] [address] Nic Marie Cholesterol in LDL [Mass/Vol] 49.2 mg/dL Normal [facility] Comment on above: Performed By: #### L IPID, TSH, MG, CMP #### [facility] [address] [address] [address] Nic Marie Cholesterol.total/Ch olesterol in HDL [Mass ratio] 2.9 {ratio} Normal [facility] Comment on above: Performed By: #### L IPID, TSH, MG, CMP #### [facility] [address] [address] [address] Nic Marie HDL NORMAL > or = 60 mg/dl - LOW CARDIOVASCULAR RISK <40 mg/dl - HIGH CARDIOVASCULAR RISK Normal [facility] Comment on above: Performed By: #### L IPID, TSH, MG, CMP #### [facility] [address] [address] [address] Nic Marie LDL CALC NORMAL SEE BELOW Normal [facility] Comment on above: Result Comment: <100 mg/dl OPTIMAL 100 - 129 mg/dl NEAR OR ABOVE OPTIMAL 130 - 159 mg/dl BORDERLINE HIGH 160 - 189 mg/dl HIGH >190 mg/dl VERY HIGH Performed By: #### L IPID, TSH, MG, CMP #### [facility] [address] [place] [address] Dr. Nic Marie Triglyceride [Mass/Vol] 69 mg/dL Normal <=150 [facility] Comment on above: Performed By: #### L IPID, TSH, MG, CMP #### [facility] [address] [place] [address] Dr. Nic Marie VLDL CALC 13.8 mg/dL Normal [facility] Comment on above: Performed By: #### L IPID, TSH, MG, CMP #### [facility] [address] [place] [address] Dr. Nic Marie MAGNESIUMon 05-04-2021 Magnesium [Mass/Vol] 1.6 mg/dL Normal 1.6-2.3 [facility] Comment on above: Performed By: #### L IPID, TSH, MG, CMP #### [facility] [address] [place] [address] Dr. Nic Marie PROF 14(COMP METB)on 022 Albumin [Mass/Vol] 3.8 g/dL Normal 3.5-5.0 [facility] Comment on above: Performed By: #### L IPID, TSH, MG, CMP #### [facility] [address] [place] [address] Dr. Nic Marie Albumin/Globulin [Mass ratio] 1.0 {ratio} Normal [facility] Comment on above: Performed By: #### L IPID, TSH, MG, CMP #### [facility] [address] [place] [address] Dr. Nic Marie ALP [Catalytic activity/Vol] 69 U/L Normal 38-126 [facility] Comment on above: Performed By: #### L IPID, TSH, MG, CMP #### [facility] [address] [place] [address] Dr. Nic Marie ALT [Catalytic activity/Vol] 26 U/L Normal 21-72 [facility] Comment on above: Performed By: #### L IPID, TSH, MG, CMP #### [facility] [address] [place] [address] Dr. Nic Marie Anion gap [Moles/Vol] 8.5 mmol/L Normal [facility] Comment on above: Performed By: #### L IPID, TSH, MG, CMP #### [facility] [address] [place] [address] Dr. Nic Marie AST [Catalytic activity/Vol] 16 U/L Critically low 17-59 [facility] Comment on above: Performed By: #### L IPID, TSH, MG, CMP #### [facility] [address] [place] [address] Dr. Nic Marie Bilirubin [Mass/Vol] 0.7 mg/dL Normal 0.2-1.3 [facility] Comment on above: Performed By: #### L IPID, TSH, MG, CMP #### [facility] [address] [place] [address] Dr. Nic Marie Calcium [Mass/Vol] 9.4 mg/dL Normal 8.4-10.2 [facility] Comment on above: Performed By: #### L IPID, TSH, MG, CMP #### [facility] [address] [place] [address] Dr. Nic Marie Chloride [Moles/Vol] 104 mmol/L Normal 98-107 [facility] Comment on above: Performed By: #### L IPID, TSH, MG, CMP #### [facility] [address] [place] [address] Dr. Nic Marie CO2 [Moles/Vol] 30.9 mmol/L Critically high 22.0-30.0 [facility] Comment on above: Performed By: #### L IPID, TSH, MG, CMP #### [facility] [address] [place] [address] Dr. Nic Marie Creatinine [Mass/Vol] 1.03 mg/dL Normal 0.66-1.25 [facility] Comment on above: Performed By: #### L IPID, TSH, MG, CMP #### [facility] [address] [address] [address] Nic Marie EGFR-AF ITALIAN >60 Normal >=60 [facility] Comment on above: Performed By: #### L IPID, TSH, MG, CMP #### [facility] [address] [address] [address] Nic Marie EGFR-NON AF ITALIAN >60 Normal >=60 [facility] Comment on above: Performed By: #### L IPID, TSH, MG, CMP #### [facility] [address] [address] [address] Nic Marie Globulin (S) [Mass/Vol] 3.7 g/dL Normal [facility] Comment on above: Performed By: #### L IPID, TSH, MG, CMP #### [facility] [address] [place] [address] Dr. Nic Marie Glucose [Mass/Vol] 121 mg/dL Critically high 74-106 [facility] Comment on above: Performed By: #### L IPID, TSH, MG, CMP #### [facility] [address] [address] [address] Nic Marie Potassium [Moles/Vol] 4.4 mmol/L Normal 3.4-5.0 [facility] Comment on above: Performed By: #### L IPID, TSH, MG, CMP #### [facility] [address] [address] [address] Nic Marie Protein [Mass/Vol] 7.5 g/dL Normal 6.1-8.2 [facility] Comment on above: Performed By: #### L IPID, TSH, MG, CMP #### [facility] [address] [address] [address] Nic Marie Sodium [Moles/Vol] 139 mmol/L Normal 137-145 [facility] Comment on above: Performed By: #### L IPID, TSH, MG, CMP #### [facility] [address] [address] [address] Nic Marie Urea nitrogen [Mass/Vol] 21.0 mg/dL Critically high 9.0-20.0 [facility] Comment on above: Performed By: #### L IPID, TSH, MG, CMP #### [facility] [address] [address] [address] Nic Marie Urea nitrogen/Creatinine [Mass ratio] 20.4 mg/mg Normal [facility] Comment on above: Performed By: #### L IPID, TSH, MG, CMP #### [facility] [address] [place], [place] [address] Dr. Nic Marie TSHon 05-04-2021 TSH 1.553 uIU/mL Normal 0.470-4.680 [facility] Comment on above: Performed By: #### L IPID, TSH, MG, CMP #### [facility] [address] [address] [address] Nic Marie TSH RANGE SEE BELOW Normal [facility] Comment on above: Result Comment: <0.3 4 UIU/ml HYPERTHYROID 0.34-5.60 UIU/ml EUTHYROID >5.60 UIU/ml HYPOTHYROID Performed By: #### L IPID, TSH, MG, CMP #### [facility] [address] [address] [address] Nic Marie Cardiovascular Lab Reporton 08-03-2020 Cardiovascular Lab Report [facility] Patient Name: [facility] Khadar Smart MR #: [id number] Department of Physician: Alexa Campbell M.D. Division of Service Date: 08/03/2020 Cardiology Birthdate: 1940 Adult Cardiovascular Room #: [address] [place] [address] Cardiovascular Laboratory Report FINAL IMPRESSIONS: 1. Severe [...] right internal jugular vein was obtained. A 6-[place]ierra [place]an x 11 cm sheath was inserted without [...] to access the left radial artery. A 6-[place] glide sheath was inserted without difficulty. Bilateral selective coronary angiography was performed using JR4 and JL4 catheters. After reviewing the images, it was elected to proceed with an interventional procedure. A 6-[place]an JR4 guide catheter was advanced over J-wire [...] stenosis. (more content not included)... Normal [facility] Vital Signs Date Time Vital Sign Value Performing Clinician Janes gautam 10-19-2023 10:55-0400 Blood Pressure Location Yousuf MARTIN [facility] 10-19-2023 10:55-0400 Diastolic blood pressure 70 mm[Hg] Yousuf MARTIN [facility] 10-19-2023 10:55-0400 Heart rate 16 /min Yousuf MARTIN [facility] 10-19-2023 10:55-0400 Respiratory rate 16 /min Yousuf MARTIN [facility] 10-19-2023 10:55-0400 Systolic blood pressure 130 mm[Hg] Yousuf MARTIN [facility] 10-13-2022 09:35-0400 Blood Pressure Location Yousuf MARTIN [facility] 10-13-2022 09:35-0400 Diastolic blood pressure 78 mm[Hg] Yousuf MARTIN [facility] 10-13-2022 09:35-0400 Heart rate 69 /min Yousuf MARTIN [facility] 10-13-2022 09:35-0400 Respiratory rate 16 /min Yousuf MARTIN [facility] 10-13-2022 09:35-0400 Systolic blood pressure 132 mm[Hg] Yousuf MARTIN [facility] Encounters Encounter Date Encounter Type Care Provider Facility Start: 10-20-2024 [facility] Start: 11-27-2023 End: 11-27-2023 ambulatory KELY BORDEN Not Available Start: 10-19-2023 End: 10-19-2023 ambulatory Yousuf MARTIN Facility:[facility] Start: 10-19-2023 End: 10-19-2023 Patient encounter procedure Yousuf MARTIN [facility] Start: 09-25-2023 End: 09-25-2023 ambulatory [facility] Start: 08-24-2023 End: 08-24-2023 ambulatory KELY BORDEN Not Available Start: 06-29-2023 End: 06-29-2023 ambulatory KELY BORDEN Not Available Start: 05-11-2023 End: 05-11-2023 ambulatory KELY BORDEN Not Available Start: 03-29-2023 End: 03-29-2023 ambulatory JACKY SARA [facility] Start: 02-23-2023 End: 02-23-2023 ambulatory KELY BORDEN Not Available Start: 10-23-2022 End: 10-23-2022 ambulatory RAMYA FLANAGAN [facility] Start: 10-17-2022 End: 10-17-2022 Patient encounter procedure Yousuf MARTIN [facility] Start: 10-13-2022 End: 10-13-2022 Patient encounter procedure Yousuf MARTIN [facility] Start: 04-20-2022 End: 04-21-2022 ambulatory BABAK العلي Facility:[facility] Start: 10-25-2021 End: 10-26-[address] RAMYA FLANAGAN Facility:[facility] Start: 05-04-2021 End: 05-05-2021 ambulatory BABAK العلي Facility:[facility] Start: 08-03-2020 End: 08-04-2020 ambulatory RAMYA FLANAGAN Facility:[facility] Procedures Date Procedure Procedure Detail Performing Clinician Start: 10-17-2022 Cystoscopy Yousuf CARRILLO Start: 04-20-2022 PSA screening BABAK RED Comment on above: Performed By: #### P SAD #### [facility] [address] [place] [address] Dr. Nic Marie Start: 08-03-2020 Placement of stent i n cardiac conduit Yousuf MARTIN carotid endarderectomy Frandy MARTIN History of hernia repair Tonia MARTIN Operative procedure on coronary artery Yousuf MARTIN Immunizations Immunization Date Immunization Notes Care Provider Fa cility 11-23-2021 SARS-CoV-2 (COVID-19 ) [id number] Yousuf MARTIN [facility] 12-30-2020 SARS-CoV-2 (COVID-19 ) mRNA BNT-162b2 vax Yousuf MARTIN [facility] Comment on above: Result Comment: 2023: [id number] 05-13-2020 SARS-CoV-2 (COVID-19 ) [id number] vaccine Yousuf MARTIN [facility] Comment on above: Result Comment: 2023: [id number] 04-15-2020 SARS-CoV-2 (COVID-19 ) mRNA-1273 vaccine Yousuf MARTIN [facility] 03-05-2020 SARS-CoV-2 (COVID-19 ) mRNA-1273 vaccine Yousuf MARTIN [facility] Comment on above: Result Comment: pt h as had 3 shots to date but does not know the dates 12-20-2016 pneumococcal conjuga te vaccine, 13 valent Yousuf MARTIN [facility] NEGATED: Highlighted row has not occurred!04-23-2020 influenza virus vaccine, unspecified formulation Yousuf MARTIN [facility] Payers Date Payer Category Payer Medicare [id number] 1940 Unknown [id number] 2.16.8 [id number] 1940 Unknown [id number] 2.16.84 [id number] 1940 Unknown [id number] 2.16.84 [id number] 1940 Unknown [id number] 2.16.84 0.1.019546.3.579.2.593 1940 Unknown [id number] 2.16.84 0.1.156905.3.579.2.593 1940 Unknown [id number] 2.16.8 [id number] 1940 Unknown [id number] 2.16.8 40.1.690552.3.579.2.727 1940 Unknown [id number] 2.16.84 0.1.438849.3.579.2.1259 1940 Unknown [id number] 2.16.84 0.1.081750.3.579.2.1259 1940 Unknown [id number] 2.16.84 0.1.062798.3.579.2.1259 1940 Unknown [id number] 2.16.84 0.1.929301.3.579.2.1259 1940 Unknown [id number] 2.16.840 .[id number] Private Health Insurance [facility] [employer] Social History Date Type Detail Facility Start: 04-25-2019 End: 10-19-2023 Tobacco smoking status Ex-smoker (finding) [facility] Sex Assigned At Male [facility] Tobacco smoking status Never [facility] Functional Status Date Assessment Result Facility 10-19-2023 Functional Status N/A [facility] 10-13-2022 Functional Status N/A [facility] Clinical Notes 04-13-2020 to 10-19-2023 Note Date & Type Note Facility 10-19-2023 Hospital Discharge instructions Patient Education 10/19/2023 11:17:40 Benign Prostatic Hyperplasia Benign Prostatic Hyperplasia Benign [...] urethra. Follow these instructions at home: Take tecb-mav-pcwyagy and prescription medicines only as told by [...] provider. Document Revised: 09/07/2021 Document Reviewed: 09/07/2021 [employer] Patient Education 2022 [employer]. Follow Up Care 12/11/2022 11:11:41 With:ALFIE WISE, Yousuf Barroso, URL Address: [address] [place] [address]- When: Unknown [facility] 10-19-2023 Note Patient Education Urology Benign Prostatic Hyperplasia Benign [...] Follow these instructions at home: ? Take idna-scw-nsigrgz and prescription medicines only as told by [...] better with treatment. ? You develop side effec (more content not included)... [facility] 09-25-2023 Note Cardiovascular Medic [facility] SUBJECTIVE Chief Complaint Patient presents with Coronary Artery Disease Atrial Fibrillation Khadar Ramos is a 83 y.o. male is being evaluated today for routine follow-up. Congestive Heart Failure His past medical history is significant for CAD. Coronary Artery Disease His past medical history is significant for CHF. Hypertension Atrial Fibrillation Past medical history includes atrial fibrillation, CAD and CHF. PMHx: systolic heart failure, CAD, HTN, a.fib, DM type II BP at home running 140/70-80 He is staying active. He is always doing yard work. He gets some leg swelling at the end of the day. This resolves by the AM. Denies c/o CP, dyspnea, orthopnea, PND, dizziness/LH, palpitations, syncope. Patient Active Problem List Diagnosis Atrial fibrillation [...] mild stage Prostatitis Renal cyst Right hydrocele Age-related nuclear cataract of both eyes Past Medical History: Diagnosis Date Atrial fibrillation [...] and are negative. OBJECTIVE Visit Vitals BP 150/72 (BP Location: Left arm, Patient Position: Sitting) Pulse 87 Ht 1.702 m (5' 7 ) Wt 73 kg (161 lb) SpO2 91% BMI 25.22 kg/m??? Smoking Status Former BSA [...] Rfl: glimepiride (Amaryl) 4 mg tablet, Take 2 mg by mouth before breakfast., Disp: , Rfl: metFORMIN (Glucophage) 500 mg tablet, Take 500 mg by mouth with breakfast and with evening meal., Disp: , Rfl: pantoprazole (ProtoNix) 40 mg EC tablet, pantoprazole 40 mg tablet,delayed release, Disp: , Rfl: rivaroxaban (Xarelto) 20 mg tablet, Xarelto 20 mg tablet, Disp: , Rfl: Physical Exam Constitutional: Appearance: Normal appearance. He is normal weight. HENT: Head: Normocephalic and atraumatic. Right Ear: External ear normal. Left Ear: External ear normal. Eyes: Extraocular Movements: Extraocular movements intact. Pupils: Pupils are equal, round, and reactive to light. Neck: Vascular: No carotid bruit. Cardiovascular: Rate and Rhythm: Normal rate. Rhythm irregular. Pulses: Normal pulses. Heart sounds: Normal heart sounds. Pulmonary: Effort: Pulmonary effort is normal. Breath sounds: Normal breath sounds. Abdominal: General: Bowel sounds are normal. Palpations: Abdomen is soft. Musculoskeletal: General: Normal range of motion. Cervical back: Neck supple. Right lower leg: Edema present. Left lower leg: Edema present. Comments: +1-2 BLE pitting, R>L Skin: General: Skin is warm and dry. Neurological: General: No focal deficit present. Mental Status: He is alert and oriented to person, place, and time. Psychiatric: Mood and Affect: Mood normal. Behavior: Behavior normal. Thought Content: Thought content normal. Judgment: Judgment normal. Labs: Legacy Encounter on 08/03/2020 Component Date Value Ref Range Status Ventricular Rate 08/03/2020 108 BPM Final Atrial Rate 08/03/2020 110 BPM Final QRS DURATION 08/03/2020 122 ms Final QT Interval 08/03/2020 320 ms Final QTC CALCULATION(BAZETT) 08/03/2020 428 ms Final R-[place] 08/03/2020 -82 degrees Final T Wave [place] 06 (more content not included)... [facility] 09-25-2023 Note Patient here for 6 m o follow up chronic systolic heart failure, permanent afib,. CAD, and hypertension. He had PFT's in Apr 2023, and routine labs w/ lipid profile in June 2023. BP was 130/68 last week at PCP's office. Patient denies chest pain, SOB, palpitations, lightheadedness/syncope, and bleeding on Xarelto. Review of Systems Cardiovascular: Positive for leg swelling (resolves by morning). Musculoskeletal: Positive for arthritis and joint pain. All other systems reviewed and are negative. [facility] 03-29-2023 Note Cardiovascular Medic [facility] SUBJECTIVE Chief Complaint Patient presents [...] Final QTC CALCULATION(BAZETT) 08/03/2020 428 ms Final R-B[place]port 08/03/2020 -82 degrees Final T Wave [place] 08/03/2020 51 degrees Final Diagnosis 08/03/2020 Final [...] visit: Chronic systolic (more content not included)... [facility] 03-29-2023 Note Patient being seen v ia [...] All other systems reviewed and are negative. [facility] 10-23-2022 Note [facility] Note Chief Complaint: Patient here for 6 mo follow up hypertension, afib, CAD, and systolic heart failure. He was seen in [facility] last month for hematuria. Plavix was [...] carotid bruits present. (more content not included)... [facility] 10-17-2022 Hospital Discharge instructions Patient Education 10/17/2022 [...] With:Yousuf MARTIN Address: [facility] [address] [place] [address]- Business (1) When: Unknown Comments:Office will call to schedule follow up [facility] 10-13-2022 Hospital Discharge instructions Patient Education [...] urethra. Follow these instructions at home: Take lfak-zln-txseeip and prescription medicines only as told by [...] provider. Document Revised: 09/07/2021 Document Reviewed: 09/07/2021 [employer] Patient Education 2022 [employer]. Follow Up Care 04/25/2021 10:27:16 With:ALFIE WISE, Yousuf Barroso, URL Address: [facility] [address], [place] [address]- When: Unknown Comments:radha Guardado. [facility] 04-13-2020 Note Patient Outreach ([place] VAMN) KHADAR RAMOS ([id number]) 1940 M Date Time Provider Department 04/13/20 RICCO RUBI During your visit today, we recorded the following information about you: Allergies As of Date: 04/13/2020 (No Known Allergies) Date Reviewed: 06/05/2018 Reviewed by: Rosalie Allen - Fully Assessed Order(s):SARS-COVID VACCINE 1ST DOSE APPT [[id number]] Order #: [id number] FUTURE Prescriptions as of 04/13/2020 Sig: SIMVASTATIN [...] [Z85.46] 06/09/2015 Letter Text Encounter Status:Closed by [employer] on 04/16/20 [facility] Evaluation + Plan note Future Appointments Appointment Date:10/16/2022 10:45:00 AM Scheduled Provider: Location:[facility] Appointment Type:Urology CALL PAT FT Appointment Date:10/17/2022 10:00:00 AM Scheduled Provider: Location:[facility] Appointment Type:Urology FT Diagnostic Tests PendingPSA Total 10/13/22 [facility] Evaluation + Plan note Future Appointments Appointment Date:10/20/2024 10:30:00 AM Scheduled Provider:Yousuf MARTIN MD Location:[facility] Appointment Type:URO Office Visit Diagnostic Tests PendingPSA Total 09/02/24 [facility] Hospital course Narrative No data available for this section [facility] Progress note No data available for this section [facility] Summary Purpose Family History No Family History Records FoundNo Family History Records FoundNo Family History Records FoundNo Family History Records Found No data available for this section No Family History Records FoundNo Family History [...] section and content) DATE CREATED AUTHOR 08/09/2020 [facility] DATE CREATED AUTHOR AUTHOR'S ORGANIZ ATION 04/04/2021 [facility] DATE CREATED AUTHOR AUTHOR'S ORGANIZ ATION 04/22/2022 [facility] DATE CREATED AUTHOR AUTHOR'S ORGANIZ ATION 09/29/2023 [facility] DATE CREATED AUTHOR AUTHOR'S ORGANIZ ATION 10/21/2023 [facility] DATE CREATED AUTHOR AUTHOR'S ORGANIZ ATION 11/29/2023 [facility] EPIC Patient Care team informatio n (unrecognized section and content) Personnel Name: Josy Sahu MD Address: Address: [address] [place] [address] Personnel Name: Josy Sahu MD Address: Address: [address] [place] [address] Personnel Name: Josy Sahu MD Address: Address: [address] [place] [address] FOR RECORDS PERTAINING TO PATIENTS WHO ARE [...] BE BASED ON THE PRIMARY CLINICAL RECORDS. [facility] [employer] [facility]. provides no warranty or guarantee of the accuracy or completeness of information in this document.
[2024-01-10] MEDS: DEXAMETHASONE SOD PHOS 10 MG/ML VIAL IV (11:46)
[2024-01-10] MEDS: FUROSEMIDE 40 MG/4 ML VIAL IVP (11:47)
[2024-01-10 11:50] LABS: pH ABG 7.313 (7.350-7.450)
[2024-01-10 11:51] LABS: Allen Test POSITIVE (POSITIVE); Base Excess ABG 2.1 mmol/L (-2.0-2.0); HCO3 ABG 28.3 mmol/L (22.0-26.0); Oxygen Saturation ABG 96.1 %; PO2 ABG 90.3 mmHg (80.0-100.0)
[2024-01-10 11:52] LABS: O2 Mode NONREBREATHER MASK; Puncture Site RT RADIAL
[2024-01-10 11:53] LABS: ABG PCO2 55.8 mmHg (35.0-45.0)
[2024-01-10 11:54] LABS: INR 1.38; Prothrombin Time 14.2 sec (9.0-11.6)
[2024-01-10 12:03] LABS: Alanine Aminotransferase 26 U/L (16-63); Albumin Level 3.7 g/dL (3.4-5.0); Alkaline Phosphatase 62 U/L (46-116); Anion Gap 12.3; Aspartate Amino Transferase 17 U/L (15-37); BUN Creatinine Ratio 24.8; Bilirubin Total 1.4 mg/dL (0.2-1.0); Calcium 9.2 mg/dL (8.5-10.1); Carbon Dioxide 30.8 mmol/L (21.0-32.0); Chloride 105 mmol/L (98-107); Estimated GFR (African America >60 (>=60 mL/min/1.73m^2); Estimated GFR (Non-African Ame 55 (>=60 mL/min/1.73m^2); Glucose 126 mg/dL (74-106); Potassium 5.1 mmol/L (3.5-5.1); Sodium 143 mmol/L (136-145); Total Protein 7.1 g/dL (6.4-8.2); Troponin I High Sensitivity 18.6 pg/mL (4.0-76.1)
[2024-01-10 12:04] LABS: Albumin Globulin Ratio 1.1; Globulin 3.4 g/dL
[2024-01-10 12:08] LABS: Internal Control Within Normal Limits; SARS-CoV-2 Ag NEGATIVE (NEGATIVE)
[2024-01-10 12:12] LABS: Lactate/Lactic Acid 1.7 mmol/L (0.4-2.0)
--- NOTE | 2024-01-10 13:07 | CA_ITS ---
Patient Name: KHADAR RAMOS MR#: [id number] : 1940 Exam Date: 01/10/2024 Ordering Doctor: DR JOSY DELACRUZ . ECHOCARDIOGRAM REPORT PROCEDURE: CA ECHO DOPPLER COMPLETE INDICATIONS: Dyspnea, elevated BNP, atrial fibrillation, CHF, COPD diabetes, hypertension COMPARISON: None. DESCRIPTION: COMPLETE ECHOCARDIOGRAM Real-time transthoracic echocardiography with 2D, M-mode, spectral and color flow Doppler performed. QUALITY: Technical quality was good. LEFT VENTRICLE: Normal chamber size. Mild concentric left ventricular hypertrophy. LV EF: It was difficult to evaluate LV systolic function due to poor acoustic windows, but appears reduced. Recommend to repeat 2 D echo with contrast DIASTOLIC: Not adequately assessed due to heart rhythm. ATRIAL SEPTUM: Visually appears intact. LEFT ATRIUM: Severe dilatation. RIGHT ATRIUM: Severe dilatation. RIGHT VENTRICLE: Severe dilatation. Normal right ventricular systolic function. TRICUSPID VALVE: Normal mobility and thickness. No stenosis with mild regurgitation. Doppler studies reveal severely (>60) elevated right sided pressures. RVSP 64 mmHg MITRAL VALVE: Normal mobility and thickness. No evidence of mitral valve stenosis. There is no mitral annular calcification. Trivial mitral regurgitation. AORTIC VALVE: Normal trileaflet appearance. Thickened aortic valve. Normal leaflet mobility. Mild aortic stenosis, MARLEEN 1.74 cm2. No aortic regurgitation. AORTIC ROOT: Normal diameter and appearance. Ascending aorta is normal in size PULMONIC VALVE: Normal thickness and mobility. No stenosis. Mild regurgitation. PERICARDIUM: No evidence of pericardial effusion. IVC: IVC is dilated (2.3 cm), does not collapse. PLEURA: CONCLUSION: Normal left ventricle chamber size. Mild concentric left ventricular hypertrophy. It was difficult to evaluate LV systolic function due to poor acoustic windows, but appears reduced. Recommend to repeat 2 D echo with contrast. Severe biatrial dilatation. Severe right ventricle dilatation. Normal right ventricular systolic function Severely elevated right sided pressures. 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 Adult Echocardiography Procedure Report Left Ventricle LVEDD (3.7 - 5.6 cm): 4.32 cm LVESD (2.2 - 4.0 cm): 2.88 cm LVIVS thickness (0.6 - 1.2 cm): 1.31 cm LVPW thickness (0.5 - 1.0 cm): 1.21 cm e': E - e': LVOT Max Gradient: 1 mm[Hg] LVOT Area (cm2): Peak Velocity (LVOT): 57.80 cm/s Mean Velocity (LVOT): LVOT Diameter 2.10 cm Left Ventricular Ejection Fraction: 62.30 % Left Atrium LA Volume Index (2D A2C): Left Atrium Systolic Dimension: 4.80 cm Mitral Valve MV E to A Ratio: MV Max Gradient: MV Mean Gradient: Mitral Valve A-Wave Peak Velocity: Mitral Valve E-Wave Peak Velocity: 108.00 cm/s Cardiovascular Orifice Area: Right Ventricle RV Internal Diastolic Dimension: Aorta AO Root Diam: 3.60 cm Ascending Ao Diam: Aortic Valve AoV Area (Peak Kwan): 1.74 cm2 AoV Area (VTI): Deceleration Sebastian: Pressure Half-Time: Peak Velocity(Antegrade Flow): 115.00 cm/s Peak Gradient(Antegrade Flow): 5 mm[Hg] Mean Velocity(Antegrade Flow): Mean Gradient(Antegrade Flow): Velocity Time Integral: Tricuspid Valve Peak Velocity (Regurgitant Flow): 349.00 cm/s Peak Velocity: Pulmonic Valve Mean Gradient: Mean Velocity: Peak Velocity: 89.60 cm/s, 76.00 cm/s Peak Gradient: 3 mm[Hg] Right Atrium Right Atrium Systolic Pressure: Dictated by: Wade Dixon MD on 01/11/2024 at 19:57 Approved by: Wade Dixon MD on 01/11/2024 at 20:10
[2024-01-10 13:42] LABS: Thyroid Stimulating Hormone 2.331 uIU/mL (0.358-3.740)
[2024-01-10 13:48] LABS: Troponin I High Sensitivity 19.1 pg/mL (4.0-76.1)
--- NOTE | 2024-01-10 14:08 | CM.NOTE ---
Important Message From Medicare discussed with pt, pt verbalizes understanding and signs paper. Original given to pt and copy placed on pt's chart.
[2024-01-10] MEDS: BUMETANIDE 10 MG in 0.9 % SODIUM CHLORIDE 160 ML 20 MG IV (16:17)
[2024-01-10] MEDS: AZITHROMYCIN 500 MG in 0.9 % SODIUM CHLORIDE 250 ML 250 MG IV (16:17)
[2024-01-10 16:39] LABS: Glucometer 194 mg/dL (74-106)
[2024-01-10 16:50] LABS: Troponin I High Sensitivity 16.6 pg/mL (4.0-76.1)
[2024-01-10] MEDS: SODIUM CHLORIDE 0.9% INHALATION 3 ML NEB 6 ML IH ×2 (17:07→23:03)
[2024-01-10] MEDS: CEFTRIAXONE 1,000 MG in 0.9 % SODIUM CHLORIDE 50 ML 100 MG IV (17:21)
[2024-01-10] MEDS: INSULIN ASPART 300 UNIT/3 ML PEN SUBQ ×2 (17:23→22:17)
--- NOTE | 2024-01-10 18:14 | P.HP_ITS ---
HPI H&P: HPI History of Present Illness Chief complaint: SHORTNESS OF BREATH/COPD/CHF/HYPOXIA Narrative: Patient was seen and evaluated in the office after having shortness of breath for about a week.-Been misinterpreting the pulse oximeter, it appears that his pulse oximeter readings that he was in the 70s for the last week. Sleeping more lately. In the office his O2 sat was 72% on room air. He was placed on a nonrebreather was able to get his O2 sat up to 86%. Without of recommended he come over to the emergency room to be evaluated by squad. In the ER also difficulty getting his oxygen level higher. Was placed on Vapotherm with good result. 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 Possible pneumonia as an etiology for the acute combined congestive heart failure When I saw patient was resting comfortably in bed. Vapotherm was on, breathing does feel better with that. Denied chest pain, diaphoresis, syncope Opioid HPI Opioid Management Most Recent Pain and Opioid Data: Last Pain Assessment 01/10/24 18:15 Last ORT Total Score 0 01/10/24 13:26 01/10/24 Last ORT Risk Category Low Risk 01/10/24 13:26 01/10/24 Review of Systems ROS Status of ROS 10 or more systems reviewed and unremark able except as noted in history and below PFSH PFS Medical History (Updated 01/10/24 @ 14:31 by Marjorie Bhardwaj DO) Atrial fibrillation ?I48.91 - Unspecified atrial fibrillation (ICD-10) CHF (congestive heart failure) ?I50.9 - Heart failure, unspecified (ICD-10) Diabetes mellitus ?E11.9 - Type 2 diabetes mellitus without complications (ICD-10) Hypertension ?I10 - Essential (primary) hypertension (ICD-10) Prostate cancer ?C61 - Malignant neoplasm of prostate (ICD-10) Surgical History (Updated 09/23/22 @ 06:57 by Aleksandr Lam) H/O hernia repair ?Z98.890 - Other specified postprocedural states (ICD-10) ?Z87.19 - Personal history of other diseases of the digestive system (ICD-10) H/O heart artery stent ?Z95.5 - Presence of coronary angioplasty implant and graft (ICD-10) Family History (Updated 01/10/24 @ 13:30 by Sparkle Pacheco RN) Father Family history of myocardial infarction Family history of CHF (congestive heart failure) Brother Family history of CHF (congestive heart failure) Family history of hypertension Sister Family history of cancer Social History (Updated 01/10/24 @ 13:30 by Sparkle Pacheco RN) Within the past year, how often did you have a drink containing alcohol: never Score interpretation: A score less than 4 is consistent with normal alcohol consumption. Smoking status: Former smoker Non-prescribed substance use: denies use Highest level of school completed/degree received: high school graduate Little interest or pleasure in doing things: not at all Feeling down, depressed, or hopeless: not at all Meds Home Medications and Allergies Home Medications ?Medication ?Instructions ?Recorded ?Confirmed ?Type amlodipine 10 mg-benazepril 20 mg 1 cap PO DAILY 09/23/22 01/10/24 History capsule atorvastatin 80 mg tablet 80 mg PO DAILY 09/23/22 01/10/24 History carvedilol 12.5 mg tablet 12.5 mg PO Q12H 09/23/22 01/10/24 History ferrous sulfate 325 mg (65 mg 325 mg PO DAILY 09/23/22 01/10/24 History iron) tablet furosemide 20 mg tablet 20 mg PO BID 09/23/22 01/10/24 History glimepiride 4 mg tablet 2 mg PO DAILY 09/23/22 01/10/24 History metformin 500 mg tablet 500 mg PO BID 09/23/22 01/10/24 History pantoprazole 40 mg tablet,delayed 40 mg PO DAILY 09/23/22 01/10/24 History release rivaroxaban 20 mg tablet (Xarelto) 20 mg PO DAILY 09/23/22 01/10/24 History dorzolamide 22.3 mg-timolol 6.8 1 drp ophthalmic (eye) BID 01/10/24 01/10/24 History mg/mL eye drops empagliflozin 10 mg tablet 10 mg PO DAILY 01/10/24 01/10/24 History (Jardiance) latanoprost 0.005 % eye drops 1 drp ophthalmic (eye) .hs 01/10/24 01/10/24 History multivitamin (Daily Multi-Vitamin 1 tab PO DAILY 01/10/24 01/10/24 History tablet) omega 1-uvq-cuj-fish oil 300 1 cap PO DAILY 01/10/24 01/10/24 History mg-1,000 mg capsule (Fish Oil) Allergies Allergy/AdvReac Type Severity Reaction Status Date / Time No Known Drug Allergies Allergy Verified 09/23/22 06:49 Exam Constitutional Vital Signs, click to edit/add: Last Vital Signs Temp 97.4 F L 01/10/24 15:14 Pulse 94 H 01/10/24 18:00 Resp 16 01/10/24 15:14 BP 148/80 H 01/10/24 15:14 Pulse Ox 96 01/10/24 18:00 O2 Del Method Vapotherm 01/10/24 17:08 O2 Flow Rate 40 01/10/24 17:08 FiO2 70 01/10/24 17:08 Documenting provider has reviewed patient's vital signs: yes Common normals: apparent distress (Mild conversational dyspnea compared to basel ine) Respiratory Common normals: normal respiratory effort and no retractions; not clear to ascultation bilaterally Auscultation: rales; no wheezes and no egophony Cardio Common normals: no JVD, regular rate and no murmurs Extremity Common normals: full ROM and normal capillary refill; clubbing, cyanosis or edema (2+ edema peripherally) Results Labs Labs: Short CBC 01/10/24 Range/Units 11:30 WBC 10.6 (4.0-11.0) 10^3/uL Hgb 15.0 (14.0-18.0) g/dL Hct 48.5 (42.0-54.0) % Plt Count 214 (150-450) 10^3/uL BMP 01/10/24 11:30 Sodium 143 Potassium 5.1 Chloride 105 Carbon Dioxide 30.8 BUN 31.0 H Creatinine 1.25 Glucose 126 H Calcium 9.2 Liver Function 01/10/24 Range/Units 11:30 Total Bilirubin 1.4 H (0.2-1.0) mg/dL AST 17 (15-37) U/L ALT 26 (16-63) U/L Alkaline Phosphatase 62 (46-116) U/L Albumin 3.7 (3.4-5.0) g/dL ABG ABG results: 01/10/24 11:42 ABG pH 7.313 L ABG pCO2 55.8 H* ABG pO2 90.3 ABG HCO3 28.3 H ABG O2 Saturation 96.1 ABG Base Excess 2.1 H Assessment and Plan Assessment and Plan (1) Hypoxia: (2) COPD (chronic obstructive pulmonary disease): (3) Congestive heart failure: (4) Hematuria: (5) CHF (congestive heart failure): (6) Atrial fibrillation: (7) Diabetes mellitus: (8) Hypertension: Plan Admission findings: Severe acute hypoxia with O2 sat 72% on room air, and requiring supplemental oxygen with Vapotherm to improve, sinus tachycardia, respiratory distress, left pleural effusion, right basilar infiltrate, elevated CO2, elevated BNP within normal troponin consistent with acute combined congestive heart failure likely complicated by acute exacerbation of COPD due to right lower lobe pneumonia Acute combined congestive heart failure-check echocardiogram, check thyroid, track and trend high-sensitivity troponins, repeat BMP in a.m., diuresed with IV Bumex drip, consult to cardiology Acute exacerbation of COPD secondary to right lower lobe pneumonia-IV antibiotics, aerosol treatments, held off on steroids due to diabetes mellitus and the likely fluid retention related to steroid use Diabetes mellitus-insulin sliding scale plus home medications Left pleural effusion related to acute combined congestive heart failure- consider chest x-ray depending on diuresis Atrial fibrillation with rapid ventricular response-rate control improved-check echocardiogram Iron deficiency anemia-continue with home iron supplementation, continue with anticoagulation GERD-continue with home medications Admission status: Patient with severe hypoxia and acute combined congestive heart failure requiring high flow supplemental oxygenation, medically necessary treatment will span 2 midnights. Within a high degree of medical certainty he will not be discharged within the next 2 midnights. Inpatient status.
[2024-01-10] MEDS: DORZOLAMIDE HCL 2%/TIMOLOL MALEATE 0.5% 200 DROP/10 ML BOTTLE OP (22:12)
[2024-01-10] MEDS: LATANOPROST 0.005% 2.5 ML BOTTLE 1 DROP OP (22:12)
[2024-01-10] MEDS: RIVAROXABAN 10 MG TABLET 20 MG PO (22:12)
[2024-01-10] MEDS: ATORVASTATIN CALCIUM 40 MG TABLET 80 MG PO (22:12)
[2024-01-10] MEDS: CARVEDILOL 12.5 MG TABLET PO (22:12)
[2024-01-10 22:18] LABS: Glucometer 176 mg/dL (74-106)
--- NOTE | 2024-01-10 23:03 | RESP.RT ---
titrated Fi02 up to 70%
--- NOTE | 2024-01-10 23:36 | PC.NURSE ---
Patient SPO2 dropping while he is sleeping. Respiratory aware and turned up vapotherm
[2024-01-11] VITALS (38 sets, daily range): BP systolic 112–144; BP diastolic 61–78; PULSE 70–103; RESP 16; TEMP 36.3–36.5; O2SAT 82–100
[2024-01-11] MEDS: IPRATROPIUM/ALBUTEROL SULFATE 3 ML AMPUL.NEB IH ×4 (04:12→22:54)
[2024-01-11 04:29] LABS: PO2 ABG 72.3 mmHg (80.0-100.0)
[2024-01-11 04:30] LABS: Allen Test POSITIVE (POSITIVE); Base Excess ABG 5.8 mmol/L (-2.0-2.0); Fractionated Inspired Oxygen 100 %; Liters per Minute 40; O2 Mode VAPOTHERM; Puncture Site RT RADIAL
[2024-01-11 04:32] LABS: ABG PCO2 74.7 mmHg (35.0-45.0); pH ABG 7.253 (7.350-7.450)
--- NOTE | 2024-01-11 04:56 | RESP.RT ---
Took patient off of Vapotherm 40L Fi02 100% and placed patient on BIPAP 16/8 Fi02 50% due to low Sp02 and blood gas results.
--- NOTE | 2024-01-11 05:06 | RESP.RT ---
Increased Fi02 up to 60%, Sp02 increased to 90%.
[2024-01-11 05:40] LABS: Hematocrit 46.9 % (42.0-54.0); Hemoglobin 14.4 g/dL (14.0-18.0); Mean Corpuscular HGB Conc 30.7 g/dL (29.9-35.2); Mean Corpuscular Hemoglobin 29.4 pg (25.9-34.0); Mean Corpuscular Volume 95.9 fL (80.0-94.0); Mean Platelet Volume 10.5 fL (9.5-13.5); Platelet Count 232 10^3/uL (150-450); Red Blood Count 4.89 10^6/uL (4.70-6.10); Red Cell Distribution Width 15.9 % (11.0-15.0); White Blood Count 10.9 10^3/uL (4.0-11.0)
[2024-01-11 06:00] LABS: Alanine Aminotransferase 21 U/L (16-63); Albumin Level 3.2 g/dL (3.4-5.0); Alkaline Phosphatase 53 U/L (46-116); Anion Gap 13.1; Aspartate Amino Transferase 12 U/L (15-37); BUN Creatinine Ratio 31.2; Bilirubin Total 0.7 mg/dL (0.2-1.0); Carbon Dioxide 32.2 mmol/L (21.0-32.0); Chloride 106 mmol/L (98-107); Estimated GFR (African America 59 (>=60 mL/min/1.73m^2); Estimated GFR (Non-African Ame 48 (>=60 mL/min/1.73m^2); Globulin 3.1 g/dL; Glucose 167 mg/dL (74-106); Potassium 4.3 mmol/L (3.5-5.1); Sodium 147 mmol/L (136-145); Total Protein 6.3 g/dL (6.4-8.2)
[2024-01-11 06:09] LABS: Segmented Neut Absolute Manual 10.68 10^3/uL (1.4-6.5)
[2024-01-11] MEDS: OMEPRAZOLE 40 MG CAPSULE.DR PO (06:34)
--- NOTE | 2024-01-11 06:39 | CT_ITS ---
[address] [address] Patient Name: KHADAR RAMOS MRN: [id number] date: 1940 Sex: M Assigned Patient Location: Current Patient Location: Accession/Order Number: [id number] Exam Date: 01/11/2024 07:53 Report Date: 01/11/2024 09:09 At the request of: JOSY DELACRUZ Procedure: CT angio chest EXAMINATION: CT angio chest HISTORY: acute hypoxia COMPARISON: XR chest 01/10/2024 TECHNIQUE: Multi-planar CT images were created with IV contrast. Axial, Coronal, and Sagittal images. Dose reduction techniques were achieved by using automated exposure control and/or adjustment of mA and/or kV according to patient size and/or use of iterative reconstruction technique. 3-D reconstruction was performed on a separate workstation. FINDINGS: VASCULATURE: No pulmonary embolism or abnormal opacity. LUNGS: Within medial left lung apex is a 3.4 cm rounded spiculated mass. Several additional small irregular nodules within left upper lobe ranging between 0.7 cm and 1.4 cm. Moderate emphysematous changes bilaterally. Atelectatic collapse versus partial consolidation of posterior basilar segments of the lower lobes; right greater than left. PLEURA: Bilateral pleural effusions, 3.1 cm in thickness on right, 1.67 m on left. AYE: No mass or adenopathy. MEDIASTINUM: No mass or adenopathy. Dilated fluid-filled esophagus up to 5.2 x 3.6 cm in diameter. CARDIAC: Cardiomegaly. No pericardial effusion. AORTA: Moderate atherosclerotic disease. No aneurysm. CHEST WALL: No mass or axillary adenopathy. BONES: No bone lesion or fracture. LIMITED ABDOMEN: No suspicious findings. Limited images of the upper abdomen. OTHER: Negative. CT/CT angio chest IMPRESSION: 1. No pulmonary embolism. 2. Moderate size right, small left pleural effusions with moderate atelectasis versus infiltrates within lung bases. 3. 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 Several small irregular nodules within left upper lobe concerning for metastatic disease. 4. No mediastinal or hilar lymphadenopathy. 5. Cardiomegaly. 6. Markedly dilated and fluid-filled esophagus suggesting loss of muscle tone and prominent gastroesophageal reflux. Electronically authenticated by: SHANITA MORRIS Date: 01/11/2024 09:09
[2024-01-11 07:27] LABS: Glucometer 146 mg/dL (74-106)
[2024-01-11 07:30] LABS: Base Excess ABG 7.1 mmol/L (-2.0-2.0); HCO3 ABG 33.1 mmol/L (22.0-26.0); Oxygen Saturation ABG 92.7 %; PO2 ABG 72.4 mmHg (80.0-100.0); pH ABG 7.322 (7.350-7.450)
[2024-01-11 07:31] LABS: Allen Test POSITIVE (POSITIVE); BIPAP Pressure 16/8; Fractionated Inspired Oxygen 60 %; Minute Volume 9.2; O2 Mode BiPAP; Pressure Support 8; Puncture Site LR; Rate 16; Tidal Volume 596
[2024-01-11 07:32] LABS: ABG PCO2 64.1 mmHg (35.0-45.0)
--- NOTE | 2024-01-11 08:34 | P.PN_ITS ---
Progress Note: Subjective Subjective Interval history: Condition deteriorated overnight, placed on BiPAP. Patient states his breathing does feel better on the BiPAP Exam Constitutional Vital Signs, click to edit/add: Last Vital Signs Temp 97.4 F L 01/11/24 04:52 Pulse 89 01/11/24 08:00 Resp 18 01/11/24 04:52 BP 124/78 01/11/24 04:52 Pulse Ox 96 01/11/24 08:00 O2 Del Method BIPAP 01/11/24 05:17 O2 Flow Rate 40 01/11/24 04:12 FiO2 60 01/11/24 07:25 Documenting provider has reviewed patient's vital signs: yes Common normals: apparent distress (Mild to moderate respiratory distress) Chest Common normals: inspection of chest normal Respiratory Common normals: abnormal respiratory effort (Mild to moderate respiratory distress) Auscultation: rales and rhonchi Cardio Common normals: regular rate and regular rhythm Extremity Common normals: abnormal to inspection (2+ edema persisting) Progress Note: Objective Labs Labs: Short CBC 01/10/24 01/11/24 Range/Units 11:30 05:30 WBC 10.6 10.9 (4.0-11.0) 10^3/uL Hgb 15.0 14.4 (14.0-18.0) g/dL Hct 48.5 46.9 (42.0-54.0) % Plt Count 214 232 (150-450) 10^3/uL BMP 01/10/24 01/11/24 11:30 05:30 Sodium 143 147 H Potassium 5.1 4.3 Chloride 105 106 Carbon Dioxide 30.8 32.2 H BUN 31.0 H 44.0 H Creatinine 1.25 1.41 H Glucose 126 H 167 H Calcium 9.2 9.0 Liver Function 01/10/24 01/11/24 Range/Units 11:30 05:30 Total Bilirubin 1.4 H 0.7 (0.2-1.0) mg/dL AST 17 12 L (15-37) U/L ALT 26 21 (16-63) U/L Alkaline Phosphatase 62 53 (46-116) U/L Albumin 3.7 3.2 L (3.4-5.0) g/dL Progress Note: A&P Assessment and Plan (1) Hypoxia: (2) COPD (chronic obstructive pulmonary disease): (3) Congestive heart failure: (4) Hematuria: (5) Atrial fibrillation: (6) Diabetes mellitus: (7) Hypertension: Plan Admission findings: Severe acute hypoxia with O2 sat 72% on room air, and requiring supplemental oxygen with Vapotherm to improve, sinus tachycardia, respiratory distress, left pleural effusion, right basilar infiltrate, elevated CO2, elevated BNP within normal troponin consistent with acute combined congestive heart failure likely complicated by acute exacerbation of COPD due to right lower lobe pneumonia Acute combined congestive heart failure with acute hypoxic respiratory failure requiring BiPAP resulting in significant respiratory acidosis with metabolic acidosis on ABG. Repeat ABG improved. Check CTA, further diuresis based on Chem-8 later this morning concern for toxic effect of the CTA, consult to cardiology, did have 2.5 L of diuresis, probably needs about 7 more Acute exacerbation of COPD secondary to right lower lobe pneumonia-held off on steroids due to fluid retention, but with condition deteriorating and now with a respiratory acidosis and acute epoxy respiratory failure requiring BiPAP will start steroids today. Diabetes mellitus-increase sliding scale based use of steroids Left pleural effusion related to acute combined congestive heart failure-check on CTA Atrial fibrillation with rapid ventricular response-rate control improved-check echocardiogram, rate still controlled Iron deficiency anemia-continue with home iron supplementation, continue with anticoagulation GERD-continue with home medications Admission status: Patient with severe hypoxia and acute combined congestive heart failure requiring high flow supplemental oxygenation and condition deteriorating with the requirement of BiPAP, medically necessary treatment will span 2 midnights. Within a high degree of medical certainty he will not be discharged within the next 2 midnights. Inpatient status. ?
[2024-01-11] MEDS: METHYLPREDNISOLONE SOD SUCC PF 125 MG/2 ML VIAL IVP ×3 (08:50→19:21)
[2024-01-11] MEDS: GLIMEPIRIDE 2 MG TABLET 1 MG PO (08:50)
[2024-01-11] MEDS: CARVEDILOL 12.5 MG TABLET PO (08:50)
[2024-01-11] MEDS: MULTIVITAMIN TABLET 1 TAB PO (08:50)
[2024-01-11] MEDS: FISH OIL 1,000 MG CAPSULE 1000 MG PO (08:51)
[2024-01-11] MEDS: LISINOPRIL 20 MG TABLET PO (08:51)
[2024-01-11] MEDS: FERROUS SULFATE 325 MG TABLET PO (08:52)
[2024-01-11] MEDS: AMLODIPINE BESYLATE 5 MG TABLET 10 MG PO (08:52)
[2024-01-11] MEDS: DORZOLAMIDE HCL 2%/TIMOLOL MALEATE 0.5% 200 DROP/10 ML BOTTLE OP ×2 (08:52→21:22)
[2024-01-11] MEDS: EMPAGLIFLOZIN 10 MG 10 EACH PO (08:52)
--- NOTE | 2024-01-11 09:05 | SWNOTE1 ---
Pt is on Bipap now. SW to re-assess dc needs when pt is more stable.
--- NOTE | 2024-01-11 09:05 | SWNOTE1 ---
Case management did speak with with yesterday and pt was independent with all ADL's and did not use any devices. PT screened pt as well and no needs identified.
[2024-01-11 11:06] LABS: Glucometer 307 mg/dL (74-106)
[2024-01-11 11:14] LABS: Anion Gap 10.9; BUN Creatinine Ratio 29.3; Calcium 8.9 mg/dL (8.5-10.1); Carbon Dioxide 32.6 mmol/L (21.0-32.0); Chloride 104 mmol/L (98-107); Estimated GFR (African America 54 (>=60 mL/min/1.73m^2); Estimated GFR (Non-African Ame 45 (>=60 mL/min/1.73m^2); Glucose 301 mg/dL (74-106); Potassium 4.5 mmol/L (3.5-5.1); Sodium 143 mmol/L (136-145)
[2024-01-11] MEDS: SODIUM CHLORIDE 0.9% INHALATION 3 ML NEB 6 ML IH (11:43)
[2024-01-11] MEDS: CALCIUM CARBONATE 500 MG (200MG ELEMENTAL) TAB CHEW PO ×3 (12:25→21:21)
[2024-01-11] MEDS: PANTOPRAZOLE SODIUM 40 MG VIAL IV (12:25)
[2024-01-11] MEDS: INSULIN ASPART 300 UNIT/3 ML PEN SUBQ ×3 (12:26→21:27)
[2024-01-11 12:50] LABS: pH VBG 7.366 (7.330-7.430)
[2024-01-11 13:06] LABS: Anion Gap 12.2; Calcium 9.3 mg/dL (8.5-10.1); Carbon Dioxide 32.1 mmol/L (21.0-32.0); Chloride 103 mmol/L (98-107); Estimated GFR (African America 52 (>=60 mL/min/1.73m^2); Estimated GFR (Non-African Ame 43 (>=60 mL/min/1.73m^2); Glucose 307 mg/dL (74-106); Potassium 4.3 mmol/L (3.5-5.1); Sodium 143 mmol/L (136-145); Troponin I High Sensitivity 14.4 pg/mL (4.0-76.1)
[2024-01-11] MEDS: BUMETANIDE 10 MG in 0.9 % SODIUM CHLORIDE 160 ML 20 MG IV (14:25)
[2024-01-11] MEDS: AZITHROMYCIN 500 MG in 0.9 % SODIUM CHLORIDE 250 ML 250 MG IV (15:27)
[2024-01-11] MEDS: CEFTRIAXONE 1,000 MG in 0.9 % SODIUM CHLORIDE 50 ML 100 MG IV (16:33)
[2024-01-11] MEDS: RIVAROXABAN 10 MG TABLET 20 MG PO (16:36)
[2024-01-11 16:39] LABS: Glucometer 178 mg/dL (74-106)
--- NOTE | 2024-01-11 18:37 | DIETREC ---
Recommend 2000 kcal CCD, Heart Healthy diet. Dunbar text to Dr. Sahu.
[2024-01-11] MEDS: ATORVASTATIN CALCIUM 40 MG TABLET 80 MG PO (21:21)
[2024-01-11] MEDS: LATANOPROST 0.005% 2.5 ML BOTTLE 1 DROP OP (21:21)
[2024-01-11 21:37] LABS: Glucometer 178 mg/dL (74-106)
[2024-01-12] VITALS (29 sets, daily range): BP systolic 125–142; BP diastolic 65–70; PULSE 83–102; RESP 16; TEMP 36.3–36.5; O2SAT 84–99
[2024-01-12] MEDS: METHYLPREDNISOLONE SOD SUCC PF 125 MG/2 ML VIAL IVP ×4 (01:56→19:44)
[2024-01-12] MEDS: IPRATROPIUM/ALBUTEROL SULFATE 3 ML AMPUL.NEB IH ×4 (04:58→23:07)
[2024-01-12 06:09] LABS: Basophils Percent Auto 0.1 % (0.2-2.0); Hematocrit 44.5 % (42.0-54.0); Immature Granulocytes Abs Auto 0.11 10^3/uL (0.00-0.03); Immature Granulocytes Pct Auto 0.6 % (0.0-0.5); Lymphocytes Absolute Auto 0.2 10^3/uL (1.2-3.8); Lymphocytes Percent Auto 1.3 % (20.5-60.0); Mean Corpuscular HGB Conc 31.5 g/dL (29.9-35.2); Mean Corpuscular Hemoglobin 29.9 pg (25.9-34.0); Mean Corpuscular Volume 94.9 fL (80.0-94.0); Mean Platelet Volume 10.9 fL (9.5-13.5); Monocytes Absolute Auto 0.3 10^3/uL (0.3-0.8); Monocytes Percent Auto 1.6 % (1.7-12.0); Neutrophils Absolute Auto 17.1 10^3/uL (1.4-6.5); Neutrophils Percent Auto 96.4 % (43.0-75.0); Platelet Count 211 10^3/uL (150-450); Red Blood Count 4.69 10^6/uL (4.70-6.10); Red Cell Distribution Width 15.9 % (11.0-15.0); White Blood Count 17.8 10^3/uL (4.0-11.0)
[2024-01-12 06:25] LABS: Alanine Aminotransferase 22 U/L (16-63); Albumin Globulin Ratio 1.1; Albumin Level 3.1 g/dL (3.4-5.0); Alkaline Phosphatase 48 U/L (46-116); Anion Gap 12.1; Aspartate Amino Transferase 10 U/L (15-37); BUN Creatinine Ratio 34.8; Bilirubin Total 0.7 mg/dL (0.2-1.0); Calcium 8.8 mg/dL (8.5-10.1); Carbon Dioxide 33.8 mmol/L (21.0-32.0); Chloride 107 mmol/L (98-107); Estimated GFR (African America 59 (>=60 mL/min/1.73m^2); Estimated GFR (Non-African Ame 48 (>=60 mL/min/1.73m^2); Globulin 2.8 g/dL; Glucose 179 mg/dL (74-106); Potassium 3.9 mmol/L (3.5-5.1); Sodium 149 mmol/L (136-145); Total Protein 5.9 g/dL (6.4-8.2)
[2024-01-12] MEDS: OMEPRAZOLE 40 MG CAPSULE.DR PO (06:30)
[2024-01-12] MEDS: INSULIN ASPART 300 UNIT/3 ML PEN SUBQ ×4 (07:48→21:19)
[2024-01-12] MEDS: CALCIUM CARBONATE 500 MG (200MG ELEMENTAL) TAB CHEW PO ×4 (07:48→21:17)
[2024-01-12] MEDS: DORZOLAMIDE HCL 2%/TIMOLOL MALEATE 0.5% 200 DROP/10 ML BOTTLE OP ×2 (09:00→21:18)
[2024-01-12] MEDS: EMPAGLIFLOZIN 10 MG 10 EACH PO (09:01)
[2024-01-12] MEDS: FISH OIL 1,000 MG CAPSULE 1000 MG PO (09:01)
[2024-01-12] MEDS: GLIMEPIRIDE 2 MG TABLET 1 MG PO (09:01)
[2024-01-12] MEDS: MULTIVITAMIN TABLET 1 TAB PO (09:02)
[2024-01-12] MEDS: LISINOPRIL 20 MG TABLET PO (09:02)
[2024-01-12] MEDS: FERROUS SULFATE 325 MG TABLET PO (09:02)
[2024-01-12] MEDS: SODIUM CHLORIDE 0.9% INHALATION 3 ML NEB 6 ML IH ×2 (10:04→16:08)
--- NOTE | 2024-01-12 10:18 | P.PN_ITS ---
Progress Note: Subjective Subjective Interval history: Looks much better this morning, up in chair, about to eat breakfast. States shortness of breath is improved. Exam Constitutional Vital Signs, click to edit/add: Last Vital Signs Temp 97.4 F L 01/12/24 04:00 Pulse 83 01/12/24 10:00 Resp 20 01/12/24 07:26 BP 136/65 01/12/24 04:03 Pulse Ox 91 L 01/12/24 09:44 O2 Del Method Nasal Cannula 01/12/24 09:44 O2 Flow Rate 4 01/12/24 09:44 FiO2 60 01/12/24 06:31 Documenting provider has reviewed patient's vital signs: yes Common normals: apparent distress (Mild to moderate respiratory distress) Chest Common normals: inspection of chest normal Respiratory Common normals: abnormal respiratory effort (Mild to moderate respiratory distress) Auscultation: no rales and no rhonchi Cardio Common normals: regular rate and regular rhythm GI Common normals: Normal to inspection, nondistended, normoactive bowel sounds present Extremity Common normals: abnormal to inspection (1+ edema persisting - improved) Progress Note: Objective Labs Labs: Short CBC 01/12/24 Range/Units 05:44 WBC 17.8 H (4.0-11.0) 10^3/uL Hgb 14.0 (14.0-18.0) g/dL Hct 44.5 (42.0-54.0) % Plt Count 211 (150-450) 10^3/uL BMP 01/11/24 01/11/24 01/12/24 10:56 12:42 05:44 Sodium 143 143 149 H Potassium 4.5 4.3 3.9 Chloride 104 103 107 Carbon Dioxide 32.6 H 32.1 H 33.8 H BUN 44.0 H 44.0 H 49.0 H Creatinine 1.50 H 1.57 H 1.41 H Glucose 301 H 307 H 179 H Calcium 8.9 9.3 8.8 Liver Function 01/12/24 Range/Units 05:44 Total Bilirubin 0.7 (0.2-1.0) mg/dL AST 10 L (15-37) U/L ALT 22 (16-63) U/L Alkaline Phosphatase 48 (46-116) U/L Albumin 3.1 L (3.4-5.0) g/dL Progress Note: A&P Assessment and Plan (1) Hypoxia: (2) COPD (chronic obstructive pulmonary disease): (3) Congestive heart failure: (4) Hematuria: (5) Atrial fibrillation: (6) Diabetes mellitus: (7) Hypertension: Plan Admission findings: Severe acute hypoxia with O2 sat 72% on room air, and requiring supplemental oxygen with Vapotherm to improve, sinus tachycardia, respiratory distress, left pleural effusion, right basilar infiltrate, elevated CO2, elevated BNP within normal troponin consistent with acute combined congestive heart failure likely complicated by acute exacerbation of COPD due to right lower lobe pneumonia Acute combined congestive heart failure with acute hypoxic respiratory failure requiring BiPAP resulting in significant respiratory acidosis with metabolic acidosis on ABG. Overall improved today. Down to 4 L by nasal cannula. Will repeat Bumex drip again today. Kidney function improved today., BNP is better Right ventricular hypertrophy-May be repeat echocardiogram as an outpatient for better imaging is recommended Acute exacerbation of COPD secondary to right lower lobe pneumonia-improved today. Continue with current treatment plan with aerosols, steroids, antibiotics, white blood cell count elevated this likely secondary to the steroids that were initiated yesterday Diabetes mellitus-continue to monitor. Left pleural effusion related to acute combined congestive heart failure-hypoxia improving Atrial fibrillation with rapid ventricular response-rate control improved-check echocardiogram, rate still controlled Iron deficiency anemia-continue with home iron supplementation, continue with anticoagulation GERD-continue with home medications Admission status: Patient with severe hypoxia and acute combined congestive heart failure requiring high flow supplemental oxygenation and condition deteriorating with the requirement of BiPAP, medically necessary treatment will span 2 midnights. Within a high degree of medical certainty he will not be discharged within the next 2 midnights. Inpatient status. ?
[2024-01-12] MEDS: PANTOPRAZOLE SODIUM 40 MG VIAL IV (11:25)
[2024-01-12 11:28] LABS: Glucometer 202 mg/dL (74-106)
[2024-01-12] MEDS: BUMETANIDE 10 MG in 0.9 % SODIUM CHLORIDE 160 ML IV (12:10)
[2024-01-12] MEDS: AZITHROMYCIN 500 MG in 0.9 % SODIUM CHLORIDE 250 ML 250 MG IV (15:46)
[2024-01-12 16:38] LABS: Glucometer 143 mg/dL (74-106)
[2024-01-12] MEDS: CEFTRIAXONE 1,000 MG in 0.9 % SODIUM CHLORIDE 50 ML 100 MG IV (16:41)
[2024-01-12] MEDS: RIVAROXABAN 10 MG TABLET 20 MG PO (16:41)
[2024-01-12] MEDS: ATORVASTATIN CALCIUM 40 MG TABLET 80 MG PO (21:17)
[2024-01-12] MEDS: LATANOPROST 0.005% 2.5 ML BOTTLE 1 DROP OP (21:18)
[2024-01-12 21:24] LABS: Glucometer 211 mg/dL (74-106)
[2024-01-13] VITALS (36 sets, daily range): BP systolic 133–144; BP diastolic 66–84; PULSE 79–120; TEMP 36.3–36.8; O2SAT 87–100
[2024-01-13] MEDS: METHYLPREDNISOLONE SOD SUCC PF 125 MG/2 ML VIAL IVP ×4 (02:34→21:35)
[2024-01-13] MEDS: OMEPRAZOLE 40 MG CAPSULE.DR PO (05:47)
[2024-01-13 05:55] LABS: Basophils Percent Auto 0.1 % (0.2-2.0); Hematocrit 47.9 % (42.0-54.0); Hemoglobin 15.1 g/dL (14.0-18.0); Immature Granulocytes Abs Auto 0.16 10^3/uL (0.00-0.03); Immature Granulocytes Pct Auto 0.8 % (0.0-0.5); Lymphocytes Absolute Auto 0.3 10^3/uL (1.2-3.8); Lymphocytes Percent Auto 1.3 % (20.5-60.0); Mean Corpuscular HGB Conc 31.5 g/dL (29.9-35.2); Mean Corpuscular Hemoglobin 29.5 pg (25.9-34.0); Mean Corpuscular Volume 93.7 fL (80.0-94.0); Mean Platelet Volume 10.4 fL (9.5-13.5); Monocytes Absolute Auto 0.5 10^3/uL (0.3-0.8); Monocytes Percent Auto 2.3 % (1.7-12.0); Neutrophils Absolute Auto 18.9 10^3/uL (1.4-6.5); Neutrophils Percent Auto 95.5 % (43.0-75.0); Platelet Count 219 10^3/uL (150-450); Red Blood Count 5.11 10^6/uL (4.70-6.10); Red Cell Distribution Width 15.8 % (11.0-15.0); White Blood Count 19.8 10^3/uL (4.0-11.0)
[2024-01-13 06:20] LABS: Alanine Aminotransferase 21 U/L (16-63); Albumin Globulin Ratio 1.1; Albumin Level 3.3 g/dL (3.4-5.0); Alkaline Phosphatase 51 U/L (46-116); Anion Gap 11.1; Aspartate Amino Transferase 11 U/L (15-37); BUN Creatinine Ratio 34.8; Bilirubin Total 0.8 mg/dL (0.2-1.0); Calcium 9.6 mg/dL (8.5-10.1); Carbon Dioxide 38.4 mmol/L (21.0-32.0); Chloride 102 mmol/L (98-107); Estimated GFR (African America >60 (>=60 mL/min/1.73m^2); Estimated GFR (Non-African Ame 52 (>=60 mL/min/1.73m^2); Globulin 3.1 g/dL; Glucose 175 mg/dL (74-106); Potassium 3.5 mmol/L (3.5-5.1); Sodium 148 mmol/L (136-145); Total Protein 6.4 g/dL (6.4-8.2)
[2024-01-13] MEDS: CALCIUM CARBONATE 500 MG (200MG ELEMENTAL) TAB CHEW PO ×4 (07:40→21:35)
[2024-01-13] MEDS: INSULIN ASPART 300 UNIT/3 ML PEN SUBQ ×3 (07:44→21:37)
[2024-01-13 07:46] LABS: Glucometer 161 mg/dL (74-106)
[2024-01-13] MEDS: PIPERACILLIN SODIUM/TAZOBACTAM 3.375 GM in 0.9 % SODIUM CHLORIDE 50 ML IV ×2 (08:06→15:00)
[2024-01-13] MEDS: GLIMEPIRIDE 2 MG TABLET 1 MG PO (08:54)
[2024-01-13] MEDS: LISINOPRIL 20 MG TABLET PO (08:55)
[2024-01-13] MEDS: FERROUS SULFATE 325 MG TABLET PO (08:55)
[2024-01-13] MEDS: FISH OIL 1,000 MG CAPSULE 1000 MG PO (08:55)
[2024-01-13] MEDS: DORZOLAMIDE HCL 2%/TIMOLOL MALEATE 0.5% 200 DROP/10 ML BOTTLE OP ×2 (08:56→21:37)
[2024-01-13] MEDS: MULTIVITAMIN TABLET 1 TAB PO (08:56)
[2024-01-13] MEDS: BUMETANIDE 10 MG in 0.9 % SODIUM CHLORIDE 160 ML IV (08:57)
[2024-01-13] MEDS: EMPAGLIFLOZIN 10 MG 10 EACH PO (08:58)
[2024-01-13] MEDS: IPRATROPIUM/ALBUTEROL SULFATE 3 ML AMPUL.NEB IH ×3 (11:08→22:59)
[2024-01-13] MEDS: SODIUM CHLORIDE 0.9% INHALATION 3 ML NEB 6 ML IH ×2 (11:09→17:42)
--- NOTE | 2024-01-13 11:50 | P.PN_ITS ---
Progress Note: Subjective Subjective Interval history: Looks much better this morning, up in chair, about to eat breakfast. States shortness of breath is improved. Exam Constitutional Vital Signs, click to edit/add: Last Vital Signs Temp 97.3 F L 01/13/24 07:28 Pulse 106 H 01/13/24 10:06 Resp 16 01/13/24 08:17 BP 144/81 H 01/13/24 08:57 Pulse Ox 92 L 01/13/24 11:10 O2 Del Method Nasal Cannula 01/13/24 11:10 O2 Flow Rate 3 01/13/24 11:10 FiO2 60 01/12/24 06:31 Progress Note: Objective Labs Labs: Short CBC 01/13/24 Range/Units 05:42 WBC 19.8 H (4.0-11.0) 10^3/uL Hgb 15.1 (14.0-18.0) g/dL Hct 47.9 (42.0-54.0) % Plt Count 219 (150-450) 10^3/uL BMP 01/13/24 05:42 Sodium 148 H Potassium 3.5 Chloride 102 Carbon Dioxide 38.4 H BUN 46.0 H Creatinine 1.32 H Glucose 175 H Calcium 9.6 Liver Function 01/13/24 Range/Units 05:42 Total Bilirubin 0.8 (0.2-1.0) mg/dL AST 11 L (15-37) U/L ALT 21 (16-63) U/L Alkaline Phosphatase 51 (46-116) U/L Albumin 3.3 L (3.4-5.0) g/dL Progress Note: A&P Assessment and Plan (1) Hypoxia: (2) COPD (chronic obstructive pulmonary disease): (3) Congestive heart failure: (4) Hematuria: (5) Atrial fibrillation: (6) Diabetes mellitus: (7) Hypertension: Plan Admission findings: Severe acute hypoxia with O2 sat 72% on room air, and requiring supplemental oxygen with Vapotherm to improve, sinus tachycardia, respiratory distress, left pleural effusion, right basilar infiltrate, elevated CO2, elevated BNP within normal troponin consistent with acute combined congestive heart failure likely complicated by acute exacerbation of COPD due to right lower lobe pneumonia Acute combined congestive heart failure with acute hypoxic respiratory failure requiring BiPAP resulting in significant respiratory acidosis with metabolic acidosis on ABG. Good diuresis yesterday, kidney function actually improved, unable to wean oxygen significantly. He was on 3 L yesterday and is running 3 to 4 L now. Repeated ABG, does have lower oxygen but pH and pCO2 are fine for his baseline. Chest x-ray pending. Right ventricular hypertrophy-May be repeat echocardiogram as an outpatient for better imaging is recommended Acute exacerbation of COPD secondary to right lower lobe pneumonia-white blood cell count elevated today, changing antibiotics. Try to obtain sputum culture Diabetes mellitus-continue to monitor. Left pleural effusion related to acute combined congestive heart failure-hypoxia stable, checking chest x-ray Atrial fibrillation with rapid ventricular response-rate control improved- echocardiogram with significant biatrial enlargement and ventricular enlargement. Unable to fully assess ejection fraction Iron deficiency anemia-continue with home iron supplementation, continue with anticoagulation GERD-continue with home medications Admission status: Patient with severe hypoxia and acute combined congestive heart failure requiring high flow supplemental oxygenation and condition deteriorating with the requirement of BiPAP, medically necessary treatment will span 2 midnights. Within a high degree of medical certainty he will not be discharged within the next 2 midnights. Inpatient status. ?
--- NOTE | 2024-01-13 12:44 | XR_ITS ---
The [address] [address] Patient Name: KHADAR RAMOS MRN: [id number] date: 1940 Sex: M Assigned Patient Location: ICU Current Patient Location: ICU Accession/Order Number: [id number] Exam Date: 01/13/2024 13:35 Report Date: 01/13/2024 15:05 At the request of: JOSY DELACRUZ Procedure: XR chest 2V EXAM: XR chest 2V , 01/13/2024 HISTORY: hypoxia COMPARISON: Prior CT scan from 01/11/2024 and chest x-ray from 01/10/2024 TECHNIQUE: X-ray of the chest, frontal and lateral views. FINDINGS: Mild cardiomegaly. Mild atherosclerotic calcification of the aortic arch. Mild prominence of the bronchovascular markings with bilateral small pleural effusions. Left upper lobe soft tissue density measuring approximately 3 cm consistent with mass seen on the CT scan. Subsegmental atelectasis in the lung bases, left more than right. No acute osseous findings. XR/XR chest 2V IMPRESSION: Left upper lobe mass, concerning for malignancy. Mild cardiomegaly, mild pulmonary congestion and small pleural effusions. Electronically authenticated by: LIA SERNA Date: 01/13/2024 15:05
[2024-01-13] MEDS: PANTOPRAZOLE SODIUM 40 MG VIAL IV (12:51)
[2024-01-13 13:36] LABS: Allen Test POSITIVE (POSITIVE); Base Excess ABG 14.1 mmol/L (-2.0-2.0); HCO3 ABG 37.6 mmol/L (22.0-26.0); Liters per Minute 3; O2 Mode N. CANNULA; Oxygen Saturation ABG 87.9 %; pH ABG 7.477 (7.350-7.450)
[2024-01-13 13:38] LABS: Puncture Site R. RADIAL
[2024-01-13] MEDS: METFORMIN HCL 500 MG TABLET PO (16:00)
[2024-01-13] MEDS: RIVAROXABAN 10 MG TABLET 20 MG PO (16:00)
[2024-01-13 16:04] LABS: Glucometer 223 mg/dL (74-106)
[2024-01-13] MEDS: SODIUM CHLORIDE 0.65% OCEAN NASAL SPRAY 2 SPRAY NS (16:36)
[2024-01-13 20:52] LABS: Glucometer 250 mg/dL (74-106)
[2024-01-13] MEDS: ATORVASTATIN CALCIUM 40 MG TABLET 80 MG PO (21:35)
[2024-01-13] MEDS: LATANOPROST 0.005% 2.5 ML BOTTLE 1 DROP OP (21:36)
[2024-01-13 21:59] LABS: Bilirubin Urine NEGATIVE (NEGATIVE); Blood Urine NEGATIVE (NEGATIVE); Clarity Urine CLEAR (CLEAR); Color Urine LT. YELLOW (YELLOW); Glucose Urine UA >=1000 mg/dL (NEGATIVE); Ketones Urine NEGATIVE (NEGATIVE); Leukocyte Esterase Urine NEGATIVE (NEGATIVE); Nitrite Urine NEGATIVE (NEGATIVE); Protein Urine NEGATIVE (NEG/TRACE); Urobilinogen Urine 0.2 EU/dL (0.2-1.0); pH Urine 5.5 (5.0-9.0)
[2024-01-13 22:40] LABS: Bacteria Urine NONE SEEN #/HPF (NONE SEEN); Crystals Seen? None Seen #/HPF (None Seen); Mucus Urine NONE SEEN (NONE SEEN); RBC Urine 0-2 #/HPF (0-2); Squamous Epithelial Cell Urine NONE SEEN #/LPF (NONE/RARE); WBC Urine 0-2 #/HPF (NONE SEEN)
[2024-01-13 22:41] LABS: Cast Seen? SEEN #/LPF (NONE SEEN); Hyaline Casts Urine RARE
[2024-01-14] VITALS (85 sets, daily range): BP systolic 120–175; BP diastolic 67–98; PULSE 84–134; TEMP 36.4–37; O2SAT 89–98
[2024-01-14] MEDS: PIPERACILLIN SODIUM/TAZOBACTAM 3.375 GM in 0.9 % SODIUM CHLORIDE 50 ML IV ×3 (00:25→16:27)
[2024-01-14] MEDS: METHYLPREDNISOLONE SOD SUCC PF 125 MG/2 ML VIAL IVP (02:21)
[2024-01-14] MEDS: OMEPRAZOLE 40 MG CAPSULE.DR PO (05:05)
[2024-01-14 05:58] LABS: Basophils Percent Auto 0.1 % (0.2-2.0); Hematocrit 47.7 % (42.0-54.0); Hemoglobin 15.1 g/dL (14.0-18.0); Immature Granulocytes Pct Auto 1.1 % (0.0-0.5); Lymphocytes Absolute Auto 0.2 10^3/uL (1.2-3.8); Lymphocytes Percent Auto 1.3 % (20.5-60.0); Mean Corpuscular HGB Conc 31.7 g/dL (29.9-35.2); Mean Corpuscular Hemoglobin 29.3 pg (25.9-34.0); Mean Corpuscular Volume 92.4 fL (80.0-94.0); Mean Platelet Volume 10.7 fL (9.5-13.5); Monocytes Absolute Auto 0.6 10^3/uL (0.3-0.8); Monocytes Percent Auto 3.2 % (1.7-12.0); Neutrophils Absolute Auto 16.9 10^3/uL (1.4-6.5); Neutrophils Percent Auto 94.3 % (43.0-75.0); Platelet Count 227 10^3/uL (150-450); Red Blood Count 5.16 10^6/uL (4.70-6.10); Red Cell Distribution Width 15.5 % (11.0-15.0); White Blood Count 17.9 10^3/uL (4.0-11.0)
[2024-01-14 06:40] LABS: Alanine Aminotransferase 25 U/L (16-63); Alkaline Phosphatase 50 U/L (46-116); Anion Gap 9.7; Aspartate Amino Transferase 14 U/L (15-37); BUN Creatinine Ratio 34.8; Calcium 9.5 mg/dL (8.5-10.1); Carbon Dioxide 40.9 mmol/L (21.0-32.0); Chloride 101 mmol/L (98-107); Estimated GFR (African America >60 (>=60 mL/min/1.73m^2); Estimated GFR (Non-African Ame 51 (>=60 mL/min/1.73m^2); Glucose 125 mg/dL (74-106); Sodium 149 mmol/L (136-145)
[2024-01-14 06:51] LABS: Potassium 2.6 mmol/L (3.5-5.1)
[2024-01-14 07:46] LABS: Glucometer 155 mg/dL (74-106)
--- NOTE | 2024-01-14 08:08 | P.PLCN_ITS ---
History of Present Illness History of Present Illness Consult date: 01/14/24 Reason for consult: dyspnea Chief complaint: SHORTNESS OF BREATH/COPD/CHF/HYPOXIA Narrative: 83yo male presents with dyspnea. Patient's main underlying problems are cardiac related including chronic systolic congestive heart failure and atrial fibrillation. Patient states he was having worsening chest pressure prior to admission with some shortness of breath. Came to the hospital and was evaluated. Overall appears to be CHF, but there is question of underlying obstructive lung disease. He is on amiodarone due to the atrial fibrillation. He has spirometry earlier this year which noted FEV1/FVC ratio of 61% and FEV1 of 76%. A full PFT with bronchodilator was not orders, so I was unable to fully determine if this were asthma or COPD. He does have a history of smoking, but he also has a strong family history of asthma. Currently not on any inhaler. He states he feels better than on admission. He did have a CTA 01/11/2024 and I personally reviewed images. There is a left apical 3.4 cm spiculated mass. There are also bilateral effusions right greater than left. Neither I, nor any other sanitation supervisor, have seen him outpatient. Review of Systems ROS Status of ROS 10 or more systems reviewed and unremark able except as noted in history and below [facility] Medical History (Updated 01/14/24 @ 08:13 by Robert Ponce DO) Atrial fibrillation ?I48.91 - Unspecified atrial fibrillation (ICD-10) CHF (congestive heart failure) ?I50.9 - Heart failure, unspecified (ICD-10) Diabetes mellitus ?E11.9 - Type 2 diabetes mellitus without complications (ICD-10) Hypertension ?I10 - Essential (primary) hypertension (ICD-10) Prostate cancer ?C61 - Malignant neoplasm of prostate (ICD-10) Surgical History (Updated 09/23/22 @ 06:57 by Aleksandr Lam) H/O hernia repair ?Z98.890 - Other specified postprocedural states (ICD-10) ?Z87.19 - Personal history of other diseases of the digestive system (ICD-10) H/O heart artery stent ?Z95.5 - Presence of coronary angioplasty implant and graft (ICD-10) Family History (Updated 01/10/24 @ 13:30 by Sparkle Pacheco RN) Father Family history of myocardial infarction Family history of CHF (congestive heart failure) Brother Family history of CHF (congestive heart failure) Family history of hypertension Sister Family history of cancer Social History (Updated 01/10/24 @ 13:30 by Sparkle Pacheco RN) Within the past year, how often did you have a drink containing alcohol: never Score interpretation: A score less than 4 is consistent with normal alcohol consumption. Smoking status: Former smoker Non-prescribed substance use: denies use Highest level of school completed/degree received: high school graduate Little interest or pleasure in doing things: not at all Feeling down, depressed, or hopeless: not at all Meds Home Medications and Allergies Home Medications ?Medication ?Instructions ?Recorded ?Confirmed ?Type amlodipine 10 mg-benazepril 20 mg 1 cap PO DAILY 09/23/22 01/10/24 History capsule atorvastatin 80 mg tablet 80 mg PO DAILY 09/23/22 01/10/24 History carvedilol 12.5 mg tablet 12.5 mg PO Q12H 09/23/22 01/10/24 History ferrous sulfate 325 mg (65 mg 325 mg PO DAILY 09/23/22 01/10/24 History iron) tablet furosemide 20 mg tablet 20 mg PO BID 09/23/22 01/10/24 History glimepiride 4 mg tablet 2 mg PO DAILY 09/23/22 01/10/24 History metformin 500 mg tablet 500 mg PO BID 09/23/22 01/10/24 History pantoprazole 40 mg tablet,delayed 40 mg PO DAILY 09/23/22 01/10/24 History release rivaroxaban 20 mg tablet (Xarelto) 20 mg PO DAILY 09/23/22 01/10/24 History dorzolamide 22.3 mg-timolol 6.8 1 drp ophthalmic (eye) BID 01/10/24 01/10/24 History mg/mL eye drops empagliflozin 10 mg tablet 10 mg PO DAILY 01/10/24 01/10/24 History (Jardiance) latanoprost 0.005 % eye drops 1 drp ophthalmic (eye) .qhs 01/10/24 01/10/24 History multivitamin (Daily Multi-Vitamin 1 tab PO DAILY 01/10/24 01/10/24 History tablet) omega 1-llw-kwd-fish oil 300 1 cap PO DAILY 01/10/24 01/10/24 History mg-1,000 mg capsule (Fish Oil) Allergies Allergy/AdvReac Type Severity Reaction Status Date / Time No Known Drug Allergies Allergy Verified 09/23/22 06:49 Exam Constitutional Vital Signs, click to edit/add: Last Vital Signs Temp 97.8 F 01/14/24 05:00 Pulse 103 H 01/14/24 06:00 Resp 20 01/14/24 05:00 BP 150/95 H 01/14/24 05:00 Pulse Ox 91 L 01/14/24 06:00 O2 Del Method Nasal Cannula 01/14/24 05:00 O2 Flow Rate 4 01/14/24 05:00 FiO2 60 01/13/24 19:48 Documenting provider has reviewed patient's vital signs: yes Common normals: no apparent distress HENMT Other: Wearing nasal cannula Chest Common normals: inspection of chest normal Respiratory Other: Diminished breath sounds in the bases with dullness to percussion. Breath sounds are muffled, but no true egophony. There are some mild crackles/rales at the transition between the pleural effusions and normal lung parenchyma. No wheezes or rhonchi. Cardio Other: Irregularly irregular, mild tachycardia in the 100s. GI Inspection: normal to inspection Extremity Common normals: normal to inspection Neuro Motor exam: no tremor noted and no fasciculations Psych Attitude: calm Activity/motor behavior: appropriate eye contact Speech: normal speech Results Laboratory Findings ABG, PT/INR, D-dimer: ABG ABG pH 7.477 (7.350-7.450) H 01/13/24 13:29 ABG pCO2 51.0 mmHg (35.0-45.0) H* 01/13/24 13:29 ABG pO2 56.0 mmHg (80.0-100.0) L* 01/13/24 13:29 ABG O2 Saturation 87.9 % 01/13/24 13:29 PT/INR, D-dimer PT 14.2 sec (9.0-11.6) H 01/10/24 11:30 INR 1.38 01/10/24 11:30 Abnormal lab findings: Abnormal Labs 01/10/24 01/10/24 01/10/24 11:30 11:42 16:36 WBC RBC MCV 95.7 H RDW 16.1 H Neut % (Auto) 84.2 H Lymph % (Auto) 5.1 L [place] % (Auto) Eos % (Auto) Baso % (Auto) Neut # (Auto) 9.0 H Lymph # (Auto) 0.5 L Abs Immat Gran (auto) Seg Neuts % (Manual) Lymphocytes % (Manual) Monocytes % (Manual) Eosinophils % (Manual) Basophils % (Manual) Imm/Tot Granulo (auto) Neutrophils # (Manual) Lymphocytes # (Manual) Monocytes # (Manual) PT 14.2 H ABG pH 7.313 L ABG pCO2 55.8 H* ABG pO2 ABG HCO3 28.3 H ABG Base Excess 2.1 H VBG pCO2 Sodium Potassium Carbon Dioxide BUN 31.0 H Creatinine Est GFR ( Amer) Est GFR (Non-Af Amer) 55 L Glucose 126 H Total Bilirubin 1.4 H AST NT-Pro-B Natriuret Pep 3007.0 H* Total Protein Albumin Free T3 1.90 L Urine Glucose (UA) Urine WBC Urine Casts POC Glucose 194 H 01/10/24 01/11/24 01/11/24 22:17 04:20 05:30 WBC RBC MCV 95.9 H RDW 15.9 H Neut % (Auto) Lymph % (Auto) [place] % (Auto) Eos % (Auto) Baso % (Auto) Neut # (Auto) Lymph # (Auto) Abs Immat Gran (auto) Seg Neuts % (Manual) 98.0 H Lymphocytes % (Manual) 1.0 L Monocytes % (Manual) 1.0 L Eosinophils % (Manual) 0.0 L Basophils % (Manual) 0.0 L Imm/Tot Granulo (auto) Neutrophils # (Manual) 10.68 H Lymphocytes # (Manual) 0.10 L Monocytes # (Manual) 0.10 L PT ABG pH 7.253 L* ABG pCO2 74.7 H* ABG pO2 72.3 L ABG HCO3 33.0 H ABG Base Excess 5.8 H VBG pCO2 Sodium 147 H Potassium Carbon Dioxide 32.2 H BUN 44.0 H Creatinine 1.41 H Est GFR ( Amer) 59 L Est GFR (Non-Af Amer) 48 L Glucose 167 H Total Bilirubin AST 12 L NT-Pro-B Natriuret Pep 3334.0 H* Total Protein 6.3 L Albumin 3.2 L Free T3 Urine Glucose (UA) Urine WBC Urine Casts POC Glucose 176 H 01/11/24 01/11/24 01/11/24 07:19 07:26 10:56 WBC RBC MCV RDW Neut % (Auto) Lymph % (Auto) [place] % (Auto) Eos % (Auto) Baso % (Auto) Neut # (Auto) Lymph # (Auto) Abs Immat Gran (auto) Seg Neuts % (Manual) Lymphocytes % (Manual) Monocytes % (Manual) Eosinophils % (Manual) Basophils % (Manual) Imm/Tot Granulo (auto) Neutrophils # (Manual) Lymphocytes # (Manual) Monocytes # (Manual) PT ABG pH 7.322 L ABG pCO2 64.1 H* ABG pO2 72.4 L ABG HCO3 33.1 H ABG Base Excess 7.1 H VBG pCO2 Sodium Potassium Carbon Dioxide 32.6 H BUN 44.0 H Creatinine 1.50 H Est GFR ( Amer) 54 L Est GFR (Non-Af Amer) 45 L Glucose 301 H Total Bilirubin AST NT-Pro-B Natriuret Pep Total Protein Albumin Free T3 Urine Glucose (UA) Urine WBC Urine Casts POC Glucose 146 H 01/11/24 01/11/24 01/11/24 11:04 12:42 16:37 WBC RBC MCV RDW Neut % (Auto) Lymph % (Auto) [place] % (Auto) Eos % (Auto) Baso % (Auto) Neut # (Auto) Lymph # (Auto) Abs Immat Gran (auto) Seg Neuts % (Manual) Lymphocytes % (Manual) Monocytes % (Manual) Eosinophils % (Manual) Basophils % (Manual) Imm/Tot Granulo (auto) Neutrophils # (Manual) Lymphocytes # (Manual) Monocytes # (Manual) PT ABG pH ABG pCO2 ABG pO2 ABG HCO3 ABG Base Excess VBG pCO2 54.0 H Sodium Potassium Carbon Dioxide 32.1 H BUN 44.0 H Creatinine 1.57 H Est GFR ( Amer) 52 L Est GFR (Non-Af Amer) 43 L Glucose 307 H Total Bilirubin AST NT-Pro-B Natriuret Pep Total Protein Albumin Free T3 Urine Glucose (UA) Urine WBC Urine Casts POC Glucose 307 H 178 H 01/11/24 01/12/24 01/12/24 21:26 05:44 11:12 WBC 17.8 H RBC 4.69 L MCV 94.9 H RDW 15.9 H Neut % (Auto) 96.4 H Lymph % (Auto) 1.3 L [place] % (Auto) 1.6 L Eos % (Auto) 0.0 L Baso % (Auto) 0.1 L Neut # (Auto) 17.1 H Lymph # (Auto) 0.2 L Abs Immat Gran (auto) 0.11 H Seg Neuts % (Manual) Lymphocytes % (Manual) Monocytes % (Manual) Eosinophils % (Manual) Basophils % (Manual) Imm/Tot Granulo (auto) 0.6 H Neutrophils # (Manual) Lymphocytes # (Manual) Monocytes # (Manual) PT ABG pH ABG pCO2 ABG pO2 ABG HCO3 ABG Base Excess VBG pCO2 Sodium 149 H Potassium Carbon Dioxide 33.8 H BUN 49.0 H Creatinine 1.41 H Est GFR ( Amer) 59 L Est GFR (Non-Af Amer) 48 L Glucose 179 H Total Bilirubin AST 10 L NT-Pro-B Natriuret Pep 2607.0 H* Total Protein 5.9 L Albumin 3.1 L Free T3 Urine Glucose (UA) Urine WBC Urine Casts POC Glucose 178 H 202 H 01/12/24 01/12/24 01/13/24 16:27 21:17 05:42 WBC 19.8 H RBC MCV RDW 15.8 H Neut % (Auto) 95.5 H Lymph % (Auto) 1.3 L [place] % (Auto) Eos % (Auto) 0.0 L Baso % (Auto) 0.1 L Neut # (Auto) 18.9 H Lymph # (Auto) 0.3 L Abs Immat Gran (auto) 0.16 H Seg Neuts % (Manual) Lymphocytes % (Manual) Monocytes % (Manual) Eosinophils % (Manual) Basophils % (Manual) Imm/Tot Granulo (auto) 0.8 H Neutrophils # (Manual) Lymphocytes # (Manual) Monocytes # (Manual) PT ABG pH ABG pCO2 ABG pO2 ABG HCO3 ABG Base Excess VBG pCO2 Sodium 148 H Potassium Carbon Dioxide 38.4 H BUN 46.0 H Creatinine 1.32 H Est GFR ( Amer) Est GFR (Non-Af Amer) 52 L Glucose 175 H Total Bilirubin AST 11 L NT-Pro-B Natriuret Pep 2675.0 H* Total Protein Albumin 3.3 L Free T3 Urine Glucose (UA) Urine WBC Urine Casts POC Glucose 143 H 211 H 01/13/24 01/13/24 01/13/24 07:42 13:29 15:53 WBC RBC MCV RDW Neut % (Auto) Lymph % (Auto) [place] % (Auto) Eos % (Auto) Baso % (Auto) Neut # (Auto) Lymph # (Auto) Abs Immat Gran (auto) Seg Neuts % (Manual) Lymphocytes % (Manual) Monocytes % (Manual) Eosinophils % (Manual) Basophils % (Manual) Imm/Tot Granulo (auto) Neutrophils # (Manual) Lymphocytes # (Manual) Monocytes # (Manual) PT ABG pH 7.477 H ABG pCO2 51.0 H* ABG pO2 56.0 L* ABG HCO3 37.6 H ABG Base Excess 14.1 H VBG pCO2 Sodium Potassium Carbon Dioxide BUN Creatinine Est GFR ( Amer) Est GFR (Non-Af Amer) Glucose Total Bilirubin AST NT-Pro-B Natriuret Pep Total Protein Albumin Free T3 Urine Glucose (UA) Urine WBC Urine Casts POC Glucose 161 H 223 H 01/13/24 01/13/24 01/14/24 20:51 21:45 05:04 WBC 17.9 H RBC MCV RDW 15.5 H Neut % (Auto) 94.3 H Lymph % (Auto) 1.3 L [place] % (Auto) Eos % (Auto) 0.0 L Baso % (Auto) 0.1 L Neut # (Auto) 16.9 H Lymph # (Auto) 0.2 L Abs Immat Gran (auto) 0.20 H Seg Neuts % (Manual) Lymphocytes % (Manual) Monocytes % (Manual) Eosinophils % (Manual) Basophils % (Manual) Imm/Tot Granulo (auto) 1.1 H Neutrophils # (Manual) Lymphocytes # (Manual) Monocytes # (Manual) PT ABG pH ABG pCO2 ABG pO2 ABG HCO3 ABG Base Excess VBG pCO2 Sodium 149 H Potassium 2.6 L* Carbon Dioxide 40.9 H BUN 47.0 H Creatinine 1.35 H Est GFR ( Amer) Est GFR (Non-Af Amer) 51 L Glucose 125 H Total Bilirubin AST 14 L NT-Pro-B Natriuret Pep 2636.0 H* Total Protein 6.0 L Albumin 3.0 L Free T3 Urine Glucose (UA) >=1000 A Urine WBC 0-2 A Urine Casts Seen A POC Glucose 250 H 01/14/24 07:44 WBC RBC MCV RDW Neut % (Auto) Lymph % (Auto) [place] % (Auto) Eos % (Auto) Baso % (Auto) Neut # (Auto) Lymph # (Auto) Abs Immat Gran (auto) Seg Neuts % (Manual) Lymphocytes % (Manual) Monocytes % (Manual) Eosinophils % (Manual) Basophils % (Manual) Imm/Tot Granulo (auto) Neutrophils # (Manual) Lymphocytes # (Manual) Monocytes # (Manual) PT ABG pH ABG pCO2 ABG pO2 ABG HCO3 ABG Base Excess VBG pCO2 Sodium Potassium Carbon Dioxide BUN Creatinine Est GFR ( Amer) Est GFR (Non-Af Amer) Glucose Total Bilirubin AST NT-Pro-B Natriuret Pep Total Protein Albumin Free T3 Urine Glucose (UA) Urine WBC Urine Casts POC Glucose 155 H Assessment and Plan Assessment and Plan (1) Acute on chronic systolic (congestive) heart failure: Assessment and Plan: 1. Acute on chronic systolic congestive heart failure. This appears to be the main antagonist of the patient's symptoms. He appears to be responding to symptoms well. He can follow-up with cardiology regarding further management. 2. Left upper lobe lung mass 3.4 cm on CTA 01/11/2024. It is spiculated with a high suspicion for lung cancer. Based on the [facility] solitary pulmonary nodule risk calculator, the risk of this nodule being cancer is 96.4%. This need to be evaluated outpatient. Given the extreme apical location of this mass, I do not feel I can appropriately biopsy this at [facility] and I would recommend referral to interventional pulmonology. He is at high risk given his cardiac issues as well as the need to stop his anticoagulation for atrial fibrillation. 3. Acute hypoxic respiratory failure. Secondary to CHF exacerbation. Goal is to wean to room air. He currently is on 4 L a minute supplemental O2. 4. Acute hypercapnic respiratory failure. This is present on admission. It appears to be resolving. 5. Acute exacerbation of COPD. This is a presumptive diagnosis. Spirometry was unable to determine the difference between asthma or COPD. Full PFTs would be recommended including bronchodilator, plethysmography, diffusion capacity. 6. History of tobacco abuse. Patient's age is outside the current recommen dations for LDCT screening. Plan Patient will need follow-up regarding the lung mass. Would recommend going to interventional pulmonology for evaluation. I will be going out of town for a week. If patient's pulmonary status deteriorates, he will need to be transferred to a tertiary care center for further pulmonary management.
--- NOTE | 2024-01-14 08:42 | P.PN_ITS ---
Progress Note: Subjective Subjective Interval history: Looks fair comfort with his breathing but still on 4 L Exam Constitutional Vital Signs, click to edit/add: Last Vital Signs Temp 97.8 F 01/14/24 05:00 Pulse 103 H 01/14/24 06:00 Resp 20 01/14/24 05:00 BP 150/95 H 01/14/24 05:00 Pulse Ox 91 L 01/14/24 06:00 O2 Del Method Nasal Cannula 01/14/24 05:00 O2 Flow Rate 4 01/14/24 05:00 FiO2 60 01/13/24 19:48 Documenting provider has reviewed patient's vital signs: yes Common normals: no apparent distress HENMT Other: Wearing nasal cannula Chest Common normals: inspection of chest normal Respiratory Common normals: normal respiratory effort, no retractions and no use of accessory muscles Auscultation: no rales Cardio Other: Irregularly irregular, mild tachycardia in the 100s. GI Inspection: normal to inspection Extremity Common normals: normal to inspection Neuro Motor exam: no tremor noted and no fasciculations Psych Attitude: calm Activity/motor behavior: appropriate eye contact Speech: normal speech Progress Note: Objective Labs Labs: Short CBC 01/14/24 Range/Units 05:04 WBC 17.9 H (4.0-11.0) 10^3/uL Hgb 15.1 (14.0-18.0) g/dL Hct 47.7 (42.0-54.0) % Plt Count 227 (150-450) 10^3/uL BMP 01/14/24 05:04 Sodium 149 H Potassium 2.6 L* Chloride 101 Carbon Dioxide 40.9 H BUN 47.0 H Creatinine 1.35 H Glucose 125 H Calcium 9.5 Liver Function 01/14/24 Range/Units 05:04 Total Bilirubin 1.0 (0.2-1.0) mg/dL AST 14 L (15-37) U/L ALT 25 (16-63) U/L Alkaline Phosphatase 50 (46-116) U/L Albumin 3.0 L (3.4-5.0) g/dL Urine 01/13/24 Range/Units 21:45 Urine Color Lt. yellow (YELLOW) Urine Clarity Clear (CLEAR) Urine pH 5.5 (5.0-9.0) Ur Specific [place] 1.010 (1.005-1.025) Urine Protein Negative (NEG/TRACE) mg/dL Urine Glucose (UA) >=1000 A (NEGATIVE) mg/dL Progress Note: A&P Assessment and Plan (1) Acute on chronic systolic (congestive) heart failure: (2) Hypoxia: (3) COPD (chronic obstructive pulmonary disease): (4) Congestive heart failure: (5) Hematuria: (6) Atrial fibrillation: (7) Diabetes mellitus: (8) Hypertension: Plan Admission findings: Severe acute hypoxia with O2 sat 72% on room air, and requiring supplemental oxygen with Vapotherm to improve, sinus tachycardia, respiratory distress, left pleural effusion, right basilar infiltrate, elevated CO2, elevated BNP within normal troponin consistent with acute combined congestive heart failure likely complicated by acute exacerbation of COPD due to right lower lobe pneumonia Acute combined congestive heart failure with acute hypoxic respiratory failure requiring BiPAP resulting in significant respiratory acidosis with metabolic acidosis on ABG. Good diuresis again yesterday, currently diuresed total of 12.6 L with a net of 7.8 L. Creatinine stayed about the same, so we will repeat again today. Evaluate with cardiology tomorrow. Right ventricular hypertrophy-May be repeat echocardiogram as an outpatient for better imaging is recommended Acute exacerbation of COPD secondary to right lower lobe pneumonia-white blood cell count elevated today, appreciate input from pulmonology, white blood cell count elevated, with left shift consistent with bacterial process Pulmonary mass-will workup as an outpatient Diabetes mellitus-continue to monitor. Left pleural effusion related to acute combined congestive heart failure-hypoxia stable, checking chest x-ray Atrial fibrillation with rapid ventricular response-rate control improved- echocardiogram with significant biatrial enlargement and ventricular enlargement. Unable to fully assess ejection fraction Iron deficiency anemia-continue with home iron supplementation, continue with anticoagulation GERD-continue with home medications Constipation-will give MiraLAX daily 1 dose of lactulose Hypokalemia-supplement Admission status: Patient with severe hypoxia and acute combined congestive heart failure requiring high flow supplemental oxygenation and condition deteriorating with the requirement of BiPAP, medically necessary treatment will span 2 midnights. Within a high degree of medical certainty he will not be discharged within the next 2 midnights. Inpatient status. ?
[2024-01-14] MEDS: FISH OIL 1,000 MG CAPSULE 1000 MG PO (08:51)
[2024-01-14] MEDS: METFORMIN HCL 500 MG TABLET PO ×2 (08:51→16:27)
[2024-01-14] MEDS: FERROUS SULFATE 325 MG TABLET PO (08:51)
[2024-01-14] MEDS: CALCIUM CARBONATE 500 MG (200MG ELEMENTAL) TAB CHEW PO ×4 (08:51→21:04)
[2024-01-14] MEDS: MULTIVITAMIN TABLET 1 TAB PO (08:51)
[2024-01-14] MEDS: LISINOPRIL 20 MG TABLET PO (08:51)
[2024-01-14] MEDS: GLIMEPIRIDE 2 MG TABLET 1 MG PO (08:52)
[2024-01-14] MEDS: DORZOLAMIDE HCL 2%/TIMOLOL MALEATE 0.5% 200 DROP/10 ML BOTTLE OP ×2 (08:54→21:06)
[2024-01-14] MEDS: EMPAGLIFLOZIN 10 MG 10 EACH PO (08:54)
[2024-01-14] MEDS: INSULIN ASPART 300 UNIT/3 ML PEN SUBQ ×4 (08:55→22:50)
--- NOTE | 2024-01-14 08:57 | CM.NOTE ---
Rounds made with Dr. Sahu, pt continues to require oxygen. Dr. Ponce will also consult on pt for further recommendations. No discharge today.
[2024-01-14] MEDS: POTASSIUM CHLORIDE 40 MEQ in 0.9 % SODIUM CHLORIDE 250 ML 67.5 MEQ IV (10:03)
[2024-01-14] MEDS: POTASSIUM CHLORIDE 10 MEQ ER TABLET 20 MEQ PO ×2 (10:03→21:04)
[2024-01-14] MEDS: BUMETANIDE 10 MG in 0.9 % SODIUM CHLORIDE 160 ML IV (10:03)
[2024-01-14] MEDS: METHYLPREDNISOLONE SOD SUCC PF 125 MG/2 ML VIAL 60 MG IVP ×3 (10:03→21:03)
--- NOTE | 2024-01-14 10:34 | SWNOTE1 ---
Pt is still on 4 liters of oxygen here at the hospital, no oxygen at home. No discharge today.
[2024-01-14] MEDS: SODIUM CHLORIDE 0.9% INHALATION 3 ML NEB 6 ML IH ×2 (11:12→17:27)
[2024-01-14] MEDS: IPRATROPIUM/ALBUTEROL SULFATE 3 ML AMPUL.NEB IH ×3 (11:12→22:41)
[2024-01-14] MEDS: PANTOPRAZOLE SODIUM 40 MG VIAL IV (11:30)
[2024-01-14 11:36] LABS: Glucometer 295 mg/dL (74-106)
--- NOTE | 2024-01-14 13:31 | SWNOTE1 ---
Pt may need home oxygen at discharge, SW to follow as needed.
[2024-01-14 15:25] LABS: Potassium 3.3 mmol/L (3.5-5.1)
[2024-01-14] MEDS: RIVAROXABAN 10 MG TABLET 20 MG PO (16:27)
[2024-01-14 16:29] LABS: Glucometer 215 mg/dL (74-106)
[2024-01-14 20:46] LABS: Glucometer 189 mg/dL (74-106)
[2024-01-14] MEDS: LATANOPROST 0.005% 2.5 ML BOTTLE 1 DROP OP (21:04)
[2024-01-14] MEDS: ATORVASTATIN CALCIUM 40 MG TABLET 80 MG PO (21:04)
[2024-01-15] VITALS (87 sets, daily range): BP systolic 127–161; BP diastolic 67–114; PULSE 85–118; TEMP 36.4–36.6; O2SAT 66–100
[2024-01-15] MEDS: PIPERACILLIN SODIUM/TAZOBACTAM 3.375 GM in 0.9 % SODIUM CHLORIDE 50 ML IV ×3 (01:07→16:53)
[2024-01-15] MEDS: METHYLPREDNISOLONE SOD SUCC PF 125 MG/2 ML VIAL 60 MG IVP ×4 (03:25→21:09)
--- NOTE | 2024-01-15 04:41 | RESP.RT ---
Pt refused breathing tx at this time.
[2024-01-15 05:06] LABS: Basophils Percent Auto 0.1 % (0.2-2.0); Hematocrit 47.5 % (42.0-54.0); Immature Granulocytes Abs Auto 0.14 10^3/uL (0.00-0.03); Immature Granulocytes Pct Auto 0.8 % (0.0-0.5); Lymphocytes Absolute Auto 0.2 10^3/uL (1.2-3.8); Lymphocytes Percent Auto 1.3 % (20.5-60.0); Mean Corpuscular HGB Conc 31.6 g/dL (29.9-35.2); Mean Corpuscular Hemoglobin 29.4 pg (25.9-34.0); Mean Corpuscular Volume 93.1 fL (80.0-94.0); Mean Platelet Volume 10.7 fL (9.5-13.5); Monocytes Absolute Auto 0.7 10^3/uL (0.3-0.8); Monocytes Percent Auto 3.8 % (1.7-12.0); Neutrophils Absolute Auto 16.7 10^3/uL (1.4-6.5); Platelet Count 212 10^3/uL (150-450); Red Cell Distribution Width 15.5 % (11.0-15.0); White Blood Count 17.8 10^3/uL (4.0-11.0)
[2024-01-15 05:32] LABS: Alanine Aminotransferase 27 U/L (16-63); Albumin Level 2.9 g/dL (3.4-5.0); Alkaline Phosphatase 46 U/L (46-116); Anion Gap 7.9; Aspartate Amino Transferase 13 U/L (15-37); Bilirubin Total 0.9 mg/dL (0.2-1.0); Calcium 9.4 mg/dL (8.5-10.1); Carbon Dioxide 40.8 mmol/L (21.0-32.0); Chloride 103 mmol/L (98-107); Estimated GFR (African America 58 (>=60 mL/min/1.73m^2); Estimated GFR (Non-African Ame 47 (>=60 mL/min/1.73m^2); Globulin 2.8 g/dL; Glucose 114 mg/dL (74-106); Sodium 149 mmol/L (136-145); Total Protein 5.7 g/dL (6.4-8.2)
[2024-01-15 05:35] LABS: Potassium 2.7 mmol/L (3.5-5.1)
--- NOTE | 2024-01-15 05:43 | P.PN_ITS ---
Progress Note: Subjective Subjective Interval history: Him to make significant improvement yesterday afternoon and evening. He is tapered down to 2 L, but any activity makes his O2 sat goal less than 90%. Exam Constitutional Vital Signs, click to edit/add: Last Vital Signs Temp 98.6 F 01/14/24 19:27 Pulse 102 H 01/15/24 04:45 Resp 18 01/15/24 04:44 BP 120/76 01/14/24 19:27 Pulse Ox 95 01/15/24 04:45 O2 Del Method Nasal Cannula 01/15/24 04:41 O2 Flow Rate 2 01/15/24 04:41 FiO2 60 01/13/24 19:48 Documenting provider has reviewed patient's vital signs: yes Common normals: no apparent distress HENMT Other: Wearing nasal cannula Chest Common normals: inspection of chest normal Respiratory Common normals: normal respiratory effort, no retractions and no use of accessory muscles Auscultation: no rales (Much improved, minimal in bases) Cardio Common normals: regular rate, regular rhythm and no murmurs Other: Irregularly irregular, mild tachycardia in the 100s. GI Inspection: normal to inspection Extremity Common normals: abnormal to inspection (1-2+ edema bilateral lower extremities, improved from admission) Neuro Motor exam: no tremor noted and no fasciculations Psych Attitude: calm Activity/motor behavior: appropriate eye contact Speech: normal speech Progress Note: Objective Labs Labs: Short CBC 01/14/24 01/15/24 Range/Units 05:04 04:55 WBC 17.9 H 17.8 H (4.0-11.0) 10^3/uL Hgb 15.1 15.0 (14.0-18.0) g/dL Hct 47.7 47.5 (42.0-54.0) % Plt Count 227 212 (150-450) 10^3/uL BMP 01/14/24 01/14/24 01/15/24 05:04 15:06 04:55 Sodium 149 H 149 H Potassium 2.6 L* 3.3 L 2.7 L* Chloride 101 103 Carbon Dioxide 40.9 H 40.8 H BUN 47.0 H 50.0 H Creatinine 1.35 H 1.43 H Glucose 125 H 114 H Calcium 9.5 9.4 Liver Function 01/14/24 01/15/24 Range/Units 05:04 04:55 Total Bilirubin 1.0 0.9 (0.2-1.0) mg/dL AST 14 L 13 L (15-37) U/L ALT 25 27 (16-63) U/L Alkaline Phosphatase 50 46 (46-116) U/L Albumin 3.0 L 2.9 L (3.4-5.0) g/dL Progress Note: A&P Assessment and Plan (1) Acute on chronic systolic (congestive) heart failure: (2) Hypoxia: (3) COPD (chronic obstructive pulmonary disease): (4) Congestive heart failure: (5) Hematuria: (6) Atrial fibrillation: (7) Diabetes mellitus: (8) Hypertension: Plan Admission findings: Severe acute hypoxia with O2 sat 72% on room air, and requiring supplemental oxygen with Vapotherm to improve, sinus tachycardia, respiratory distress, left pleural effusion, right basilar infiltrate, elevated CO2, elevated BNP within normal troponin consistent with acute combined congestive heart failure likely complicated by acute exacerbation of COPD due to right lower lobe pneumonia Acute combined congestive heart failure with acute hypoxic respiratory failure requiring BiPAP resulting in significant respiratory acidosis with metabolic acidosis on ABG. Diuresis is slowing down. Will repeat Bumex 1 more time, creatinine is up a little bit compared to previous baseline but not significantly. Still has significant fluid overload. With rales in bases and edema on peripheral extremity exam. Cardiology for evaluation today Right ventricular hypertrophy-May be repeat echocardiogram as an outpatient for better imaging is recommended Acute exacerbation of COPD secondary to right lower lobe pneumonia-white blood cell count finally improving. This is after changing antibiotics 2 days ago Hypokalemia-supplement Pulmonary mass-will workup as an outpatient Diabetes mellitus-continue to monitor. Left pleural effusion related to acute combined congestive heart failure-hypoxia stable,-follow as an outpatient Atrial fibrillation with rapid ventricular response-rate control improved- echocardiogram with significant biatrial enlargement and ventricular enlargement. Unable to fully assess ejection fraction Iron deficiency anemia-continue with home iron supplementation, continue with anticoagulation GERD-continue with home medications Constipation-will give MiraLAX daily 1 dose of lactulose Hypokalemia-supplement Admission status: Patient with severe hypoxia and acute combined congestive heart failure requiring high flow supplemental oxygenation and condition deteriorating with the requirement of BiPAP, medically necessary treatment will span 2 midnights. Within a high degree of medical certainty he will not be discharged within the next 2 midnights. Inpatient status. ?
[2024-01-15] MEDS: OMEPRAZOLE 40 MG CAPSULE.DR PO (05:45)
--- NOTE | 2024-01-15 07:39 | CM.NOTE ---
Rounds made with Dr. Sahu, cardiology to consult today for further recommendations. Pt still requiring 2L NC, discussed with pt possible need for home oxygen. No discharge today.
[2024-01-15] MEDS: METFORMIN HCL 500 MG TABLET PO ×2 (07:48→16:54)
[2024-01-15 07:51] LABS: Glucometer 129 mg/dL (74-106)
[2024-01-15] MEDS: CALCIUM CARBONATE 500 MG (200MG ELEMENTAL) TAB CHEW PO ×4 (07:51→21:08)
[2024-01-15] MEDS: POTASSIUM CHLORIDE 40 MEQ in 0.9 % SODIUM CHLORIDE 250 ML 67.5 MEQ IV (07:52)
[2024-01-15] MEDS: POTASSIUM CHLORIDE 10 MEQ ER TABLET 20 MEQ PO ×3 (10:08→21:08)
[2024-01-15] MEDS: FISH OIL 1,000 MG CAPSULE 1000 MG PO (10:09)
[2024-01-15] MEDS: GLIMEPIRIDE 2 MG TABLET 1 MG PO (10:09)
[2024-01-15] MEDS: LISINOPRIL 20 MG TABLET PO (10:10)
[2024-01-15] MEDS: MULTIVITAMIN TABLET 1 TAB PO (10:10)
[2024-01-15] MEDS: FERROUS SULFATE 325 MG TABLET PO (10:10)
[2024-01-15] MEDS: DORZOLAMIDE HCL 2%/TIMOLOL MALEATE 0.5% 200 DROP/10 ML BOTTLE OP ×2 (10:11→21:07)
[2024-01-15] MEDS: EMPAGLIFLOZIN 10 MG 10 EACH PO (10:12)
[2024-01-15] MEDS: BUMETANIDE 10 MG in 0.9 % SODIUM CHLORIDE 160 ML IV (10:30)
[2024-01-15] MEDS: IPRATROPIUM/ALBUTEROL SULFATE 3 ML AMPUL.NEB IH ×3 (10:55→23:36)
[2024-01-15 11:44] LABS: Glucometer 343 mg/dL (74-106)
[2024-01-15] MEDS: INSULIN ASPART 300 UNIT/3 ML PEN SUBQ ×2 (11:59→21:12)
[2024-01-15] MEDS: PANTOPRAZOLE SODIUM 40 MG VIAL IV (12:09)
--- NOTE | 2024-01-15 16:21 | SWNOTE1 ---
SW stopped in to offer HH services, at least nursing for when pt returns home. Pt's was in room while pt using restroom. She was in agreement and voiced she had [facility] in the past and she was alright with using them. Referral sent to [facility] . Referral included face sheet, ED note, H&P, provider notes, case management report, and PT/OT notes.
[2024-01-15] MEDS: RIVAROXABAN 10 MG TABLET 20 MG PO (16:52)
[2024-01-15 16:53] LABS: Glucometer 145 mg/dL (74-106)
--- NOTE | 2024-01-15 17:59 | PM.CACN ---
History of Present Illness History of Present Illness Consult date: 01/15/24 Requesting physician: Jaxon Sahu Consult reason: atrial fibrillation, congestive heart failure and shortness of breath Chief complaint: SHORTNESS OF BREATH/COPD/CHF/HYPOXIA Narrative: 83yo male presents with PMH of Afib/ DM2/ Pulm HTN with tobacco abuse was admitted with severe hypoxemia. He was noted to be in Afib and had elevated BNP and also high WBC count. He was admitted and started on diuretics and since then diuresed net 7L. Previously had seen Pulm as he was on Amio and had PFT which raised concern of obstructive lung disease as his spirometry earlier this year which noted FEV1/FVC ratio of 61% and FEV1 of 76%. He has since improved in terms of his SOB but still continued to have elevated VR. CTA 01/11/2024 was noted to have left apical 3.4 cm spiculated mass. There are also bilateral effusions right greater than left. Previously seen by [place] [facility] and has been known to have elevated RVSP. EKG: Afib with varying VR ECHO 01/10/24 CONCLUSION: Normal left ventricle chamber size. Mild concentric left ventricular hypertrophy. It was difficult to evaluate LV systolic function due to poor acoustic windows, but appears reduced. Recommend to repeat 2 D echo with contrast. Severe biatrial dilatation. Severe right ventricle dilatation. Normal right ventricular systolic function Severely elevated right sided pressures. 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 Review of Systems ROS Status of ROS 10 or more systems reviewed and unremarkable except as noted in history and below [facility] Medical History (Updated 01/14/24 @ 08:13 by Robert Ponce DO) Atrial fibrillation ?I48.91 - Unspecified atrial fibrillation (ICD-10) CHF (congestive heart failure) ?I50.9 - Heart failure, unspecified (ICD-10) Diabetes mellitus ?E11.9 - Type 2 diabetes mellitus without complications (ICD-10) Hypertension ?I10 - Essential (primary) hypertension (ICD-10) Prostate cancer ?C61 - Malignant neoplasm of prostate (ICD-10) Surgical History H/O hernia repair ?Z98.890 - Other specified postprocedural states (ICD-10) ?Z87.19 - Personal history of other diseases of the digestive system (ICD-10) H/O heart artery stent ?Z95.5 - Presence of coronary angioplasty implant and graft (ICD-10) Family History Father Family history of myocardial infarction Family history of CHF (congestive heart failure) Brother Family history of CHF (congestive heart failure) Family history of hypertension Sister Family history of cancer Social History Within the past year, how often did you have a drink containing alcohol: never Score interpretation: A score less than 4 is consistent with normal alcohol consumption. Smoking status: Former smoker Non-prescribed substance use: denies use Highest level of school completed/degree received: high school graduate Little interest or pleasure in doing things: not at all Feeling down, depressed, or hopeless: not at all Meds Home Medications and Allergies Home Medications ?Medication ?Instructions ?Recorded ?Confirmed ?Type amlodipine 10 mg-benazepril 20 mg 1 cap PO DAILY 09/23/22 01/10/24 History capsule atorvastatin 80 mg tablet 80 mg PO DAILY 09/23/22 01/10/24 History carvedilol 12.5 mg tablet 12.5 mg PO Q12H 09/23/22 01/10/24 History ferrous sulfate 325 mg (65 mg 325 mg PO DAILY 09/23/22 01/10/24 History iron) tablet furosemide 20 mg tablet 20 mg PO BID 09/23/22 01/10/24 History glimepiride 4 mg tablet 2 mg PO DAILY 09/23/22 01/10/24 History metformin 500 mg tablet 500 mg PO BID 09/23/22 01/10/24 History pantoprazole 40 mg tablet,delayed 40 mg PO DAILY 09/23/22 01/10/24 History release rivaroxaban 20 mg tablet (Xarelto) 20 mg PO DAILY 09/23/22 01/10/24 History dorzolamide 22.3 mg-timolol 6.8 1 drp ophthalmic (eye) BID 01/10/24 01/10/24 History mg/mL eye drops empagliflozin 10 mg tablet 10 mg PO DAILY 01/10/24 01/10/24 History (Jardiance) latanoprost 0.005 % eye drops 1 drp ophthalmic (eye) .qhs 01/10/24 01/10/24 History multivitamin (Daily Multi-Vitamin 1 tab PO DAILY 01/10/24 01/10/24 History tablet) omega 6-kpu-nls-fish oil 300 1 cap PO DAILY 01/10/24 01/10/24 History mg-1,000 mg capsule (Fish Oil) Allergies Allergy/AdvReac Type Severity Reaction Status Date / Time No Known Drug Allergies Allergy Verified 09/23/22 06:49 Exam Constitutional Vital Signs, click to edit/add: Last Vital Signs Temp 97.9 F 01/15/24 14:00 Pulse 103 H 01/15/24 16:00 Resp 14 01/15/24 16:00 BP 148/86 H 01/15/24 15:00 Pulse Ox 95 01/15/24 16:15 O2 Del Method Nasal Cannula 01/15/24 16:15 O2 Flow Rate 2 01/15/24 16:15 FiO2 60 01/13/24 19:48 Documenting provider has reviewed patient's vital signs: yes Common normals: no apparent distress HENMT Other: Wearing nasal cannula Chest Common normals: inspection of chest normal Respiratory Common normals: normal respiratory effort, no retractions and no use of accessory muscles Auscultation: no rales (Much improved, minimal in bases) Cardio Common normals: regular rate, regular rhythm and no murmurs Other: Irregularly irregular, mild tachycardia in the 100s. GI Inspection: normal to inspection Extremity Common normals: abnormal to inspection (1-2+ edema bilateral lower extremities, improved from admission) Neuro Motor exam: no tremor noted and no fasciculations Psych Attitude: calm Activity/motor behavior: appropriate eye contact Speech: normal speech Results Labs and Meds Lab results: Cardiac Enzymes 01/15/24 Range/Units 04:55 AST 13 L (15-37) U/L CBC 01/15/24 Range/Units 04:55 WBC 17.8 H (4.0-11.0) 10^3/uL RBC 5.10 (4.70-6.10) 10^6/uL Hgb 15.0 (14.0-18.0) g/dL Hct 47.5 (42.0-54.0) % Plt Count 212 (150-450) 10^3/uL Neut # (Auto) 16.7 H (1.4-6.5) 10^3/uL Lymph # (Auto) 0.2 L (1.2-3.8) 10^3/uL [place] # (Auto) 0.7 (0.3-0.8) 10^3/uL Eos # (Auto) 0.0 (0.0-0.7) 10^3/uL Baso # (Auto) 0.0 (0.0-0.1) 10^3/uL Comprehensive Metabolic Panel 01/15/24 Range/Units 04:55 Sodium 149 H (136-145) mmol/L Potassium 2.7 L* (3.5-5.1) mmol/L Chloride 103 (98-107) mmol/L Carbon Dioxide 40.8 H (21.0-32.0) mmol/L BUN 50.0 H (7.0-18.0) mg/dL Creatinine 1.43 H (0.70-1.30) mg/dL Glucose 114 H (74-106) mg/dL Calcium 9.4 (8.5-10.1) mg/dL AST 13 L (15-37) U/L ALT 27 (16-63) U/L Alkaline Phosphatase 46 (46-116) U/L Total Protein 5.7 L (6.4-8.2) g/dL Albumin 2.9 L (3.4-5.0) g/dL Intake and Output 01/15/24 01/15/24 01/15/24 07:59 15:59 23:59 Intake Total 250 / 860 800 / 800 Output Total 1350 / 2200 1350 / 1350 Balance -1100 / -1340 -550 / -550 Intake: Oral 480 / 480 IV 250 / 620 320 / 320 Bumetanide 10 mg In 0.9 % 200 / 200 Sodium Chloride 160 ml @ 10 mls /hr IV ONCE ONE Rx#:[id number] Piperacillin Sodium/Tazobactam 50 / 150 50 / 50 3.375 gm In 0.9 % Sodium Chloride 50 ml @ 12.5 mls/hr IV Q8H [facility] Rx#:[id number] Potassium Chloride 40 meq In 0. 270 / 270 9 % Sodium Chloride 250 ml @ 67 .5 mls/hr IV Q6H PRN Rx#: [id number] Output: Urine 1350 / 2200 1350 / 1350 Other: Weight 72.1 kg Imaging and Cardiology Echo: report reviewed ECG results: report reviewed EKG Interpretation ECG shows: atrial fibrillation Assessment and Plan Assessment and Plan (1) Acute on chronic systolic (congestive) heart failure: Assessment and Plan: 1. Acute on chronic systolic congestive heart failure. Will continue careful diuresis. There is a component of Pulm HTN as well given his underlying pulm changes from ?COPD. (2) Atrial fibrillation: Assessment and Plan: Pt is known to have Afib for some time and not seem to have seen by EP. No prior DCCV done. for now, will aim for rate control and once discharged, can consider DCCV as he is on Amio and can tolerate anticoagulation. If unable to keep SR, then PPM+AVN ablation may be maximo suitable option. (3) Hypoxia: Assessment and Plan: Ct O2 and wean based on o2 sats (4) COPD (chronic obstructive pulmonary disease): Assessment and Plan: Ct as per Pulm (5) Hematuria: Assessment and Plan: Defert o primary team (6) Diabetes mellitus: Assessment and Plan: as per primary (7) Hypertension: Plan Careful monitoring as his poor pulm reserve and hypoxemia is a concern.
[2024-01-15 21:01] LABS: Glucometer 243 mg/dL (74-106)
[2024-01-15] MEDS: LATANOPROST 0.005% 2.5 ML BOTTLE 1 DROP OP (21:07)
[2024-01-15] MEDS: ATORVASTATIN CALCIUM 40 MG TABLET 80 MG PO (21:08)
[2024-01-16] VITALS (27 sets, daily range): BP systolic 136–175; BP diastolic 79–122; PULSE 74–124; TEMP 36.2–36.6; O2SAT 81–99
[2024-01-16] MEDS: PIPERACILLIN SODIUM/TAZOBACTAM 3.375 GM in 0.9 % SODIUM CHLORIDE 50 ML IV ×2 (00:14→09:05)
[2024-01-16] MEDS: METHYLPREDNISOLONE SOD SUCC PF 125 MG/2 ML VIAL 60 MG IVP ×2 (04:06→09:03)
[2024-01-16 05:28] LABS: Basophils Percent Auto 0.1 % (0.2-2.0); Hematocrit 54.6 % (42.0-54.0); Hemoglobin 17.1 g/dL (14.0-18.0); Immature Granulocytes Abs Auto 0.11 10^3/uL (0.00-0.03); Immature Granulocytes Pct Auto 0.6 % (0.0-0.5); Lymphocytes Absolute Auto 0.3 10^3/uL (1.2-3.8); Lymphocytes Percent Auto 1.4 % (20.5-60.0); Mean Corpuscular HGB Conc 31.3 g/dL (29.9-35.2); Mean Corpuscular Hemoglobin 29.3 pg (25.9-34.0); Mean Corpuscular Volume 93.7 fL (80.0-94.0); Mean Platelet Volume 11.1 fL (9.5-13.5); Monocytes Absolute Auto 0.7 10^3/uL (0.3-0.8); Neutrophils Absolute Auto 17.5 10^3/uL (1.4-6.5); Neutrophils Percent Auto 93.9 % (43.0-75.0); Platelet Count 211 10^3/uL (150-450); Red Blood Count 5.83 10^6/uL (4.70-6.10); Red Cell Distribution Width 15.9 % (11.0-15.0); White Blood Count 18.6 10^3/uL (4.0-11.0)
[2024-01-16 05:56] LABS: Alanine Aminotransferase 35 U/L (16-63); Albumin Level 3.5 g/dL (3.4-5.0); Alkaline Phosphatase 54 U/L (46-116); Aspartate Amino Transferase 15 U/L (15-37); BUN Creatinine Ratio 38.1; Bilirubin Total 1.2 mg/dL (0.2-1.0); Calcium 10.2 mg/dL (8.5-10.1); Carbon Dioxide 47.1 mmol/L (21.0-32.0); Chloride 102 mmol/L (98-107); Estimated GFR (African America 59 (>=60 mL/min/1.73m^2); Estimated GFR (Non-African Ame 49 (>=60 mL/min/1.73m^2); Globulin 3.4 g/dL; Glucose 105 mg/dL (74-106); Potassium 3.1 mmol/L (3.5-5.1); Sodium 151 mmol/L (136-145); Total Protein 6.9 g/dL (6.4-8.2)
[2024-01-16] MEDS: OMEPRAZOLE 40 MG CAPSULE.DR PO (05:56)
[2024-01-16] MEDS: POTASSIUM CHLORIDE 10 MEQ ER TABLET 20 MEQ PO (05:56)
[2024-01-16 07:32] LABS: Glucometer 133 mg/dL (74-106)
[2024-01-16] MEDS: POTASSIUM CHLORIDE 40 MEQ in 0.9 % SODIUM CHLORIDE 250 ML 67.5 MEQ IV (07:44)
--- NOTE | 2024-01-16 08:24 | P.DS_ITS ---
DS: Providers Provider Date of admission: 01/10/24 13:07 Primary care physician: Jaxon Sahu MD Consults: 01/10/24 12:59 Consult to Pharmacy Routine Consulting Provider: Reason for consultation: Please [place] me when Med Rec is Updated Has provider been notified: No Occupational Therapy Eval and Treat Routine Reason for consultation: Only if needed for Rehab Has provider been notified: No Physical Therapy Eval and Treat Routine Reason for consultation: Eval and Treat Has provider been notified: No 01/11/24 08:31 Consult to Cardiology Routine Reason for consultation: chf Has provider been notified: No 01/13/24 17:03 Consult to Pulmonology Routine Consulting Provider: Robert Ponce Reason for consultation: pneumonia, lung mass Has provider been notified: Yes DS: Diagnosis Discharge Diagnosis (1) Acute on chronic systolic (congestive) heart failure: (2) Atrial fibrillation: (3) Hypoxia: (4) COPD (chronic obstructive pulmonary disease): (5) Hematuria: (6) Diabetes mellitus: (7) Hypertension: Plan Admission findings: Severe acute hypoxia with O2 sat 72% on room air, and requiring supplemental oxygen with Vapotherm to improve, sinus tachycardia, respiratory distress, left pleural effusion, right basilar infiltrate, elevated CO2, elevated BNP within normal troponin consistent with acute combined congestive heart failure likely complicated by acute exacerbation of COPD due to right lower lobe pneumonia Acute combined congestive heart failure with acute hypoxic respiratory failure requiring BiPAP resulting in significant respiratory acidosis with metabolic acidosis on ABG. Diuresis is slowing down. Will repeat Bumex 1 more time, creatinine is up a little bit compared to previous baseline but not significantly. Still has significant fluid overload. With rales in bases and edema on peripheral extremity exam. Cardiology for evaluation today Right ventricular hypertrophy-May be repeat echocardiogram as an outpatient for better imaging is recommended Acute exacerbation of COPD secondary to right lower lobe pneumonia-white blood cell count finally improving. This is after changing antibiotics 2 days ago Hypokalemia-supplement Pulmonary mass-will workup as an outpatient Diabetes mellitus-continue to monitor. Left pleural effusion related to acute combined congestive heart failure-hypoxia stable,-follow as an outpatient Atrial fibrillation with rapid ventricular response-rate control improved- echocardiogram with significant biatrial enlargement and ventricular enlargement. Unable to fully assess ejection fraction Iron deficiency anemia-continue with home iron supplementation, continue with anticoagulation GERD-continue with home medications Constipation-will give MiraLAX daily 1 dose of lactulose Hypokalemia-supplement Admission status: Patient with severe hypoxia and acute combined congestive heart failure requiring high flow supplemental oxygenation and condition deteriorating with the requirement of BiPAP, medically necessary treatment will span 2 midnights. Within a high degree of medical certainty he will not be discharged within the next 2 midnights. Inpatient status. ? ? DS: Summary Hospital Course Hospital Course: Was seen and evaluated in the emergency room after visit to the office, found to have acute combined congestive heart failure with acute hypoxic respiratory failure complicated by acute lower lobe pneumonia. He was treated with IV antibiotics. His white blood cell count did elevate and antibiotics were adjusted. Since the adjustment his breathing and cough has improved. He had significant fluid retention and acute combined congestive heart failure. He diuresed 18 L with a net of 11 L out. Echocardiogram difficult to establish the ejection fraction but seems only mildly diminished. He has bilateral atrial enlargement causing his chronic atrial fibrillation. He is improved today but still on supplemental oxygen at 2 L. Will have patient ambulate this morning he will likely need to be discharged to home on supplemental oxygen to improve his activities of daily living, reduces respiratory distress and reduce his risk of rebound back to the hospital for acute combined congestive heart failure secondary to hypoxia. Likely discharge to home later this morning. Medications see list. See me in the office either late this week or early next. Status at Discharge Overall status at discharge: patient is not back to baseline Time Spent with Patient Time attestation: Total time spent providing and/or coordinating discharge services: Time spent: greater than 30 minutes Exam Constitutional Vital Signs, click to edit/add: Last Vital Signs Temp 97.4 F L 01/16/24 04:11 Pulse 74 01/16/24 06:42 Resp 12 01/16/24 02:00 BP 160/88 H 01/16/24 06:42 Pulse Ox 95 01/16/24 06:42 O2 Del Method Nasal Cannula 01/16/24 01:00 O2 Flow Rate 2 01/16/24 01:00 FiO2 60 01/13/24 19:48 Documenting provider has reviewed patient's vital signs: yes Common normals: no apparent distress HENMT Other: Wearing nasal cannula Chest Common normals: inspection of chest normal Respiratory Common normals: normal respiratory effort, no retractions, no use of accessory muscles and clear to auscultation bilaterally Auscultation: no rales (Clear lung exam) Cardio Common normals: regular rate, regular rhythm and no murmurs Other: Irregularly irregular, mild tachycardia in the 100s. GI Inspection: normal to inspection Extremity Common normals: abnormal to inspection (1-2+ edema bilateral lower extremities, improved from admission) Neuro Motor exam: no tremor noted and no fasciculations Psych Attitude: calm Activity/motor behavior: appropriate eye contact Speech: normal speech DS: Data Data Completed and Pending Labs on day of discharge: Labs from last 24 hours 01/16/24 01/16/24 01/15/24 07:28 04:36 21:00 WBC 18.6 H RBC 5.83 Hgb 17.1 Hct 54.6 H MCV 93.7 MCH 29.3 MCHC 31.3 RDW 15.9 H Plt Count 211 MPV 11.1 Neut % (Auto) 93.9 H Lymph % (Auto) 1.4 L [place] % (Auto) 4.0 Eos % (Auto) 0.0 L Baso % (Auto) 0.1 L Neut # (Auto) 17.5 H Lymph # (Auto) 0.3 L [place] # (Auto) 0.7 Eos # (Auto) 0.0 Baso # (Auto) 0.0 Abs Immat Gran (auto) 0.11 H Imm/Tot Granulo (auto) 0.6 H Sodium 151 H Potassium 3.1 L Chloride 102 Carbon Dioxide 47.1 H Anion Gap 5.0 BUN 53.0 H Creatinine 1.39 H Est GFR ( Amer) 59 L Est GFR (Non-Af Amer) 49 L BUN/Creatinine Ratio 38.1 Glucose 105 Calcium 10.2 H Total Bilirubin 1.2 H AST 15 ALT 35 Alkaline Phosphatase 54 NT-Pro-B Natriuret Pep 2700.0 H* Total Protein 6.9 Albumin 3.5 Globulin 3.4 Albumin/Globulin Ratio 1.0 POC Glucose 133 H 243 H 01/15/24 01/15/24 16:52 11:43 WBC RBC Hgb Hct MCV MCH MCHC RDW Plt Count MPV Neut % (Auto) Lymph % (Auto) [place] % (Auto) Eos % (Auto) Baso % (Auto) Neut # (Auto) Lymph # (Auto) [place] # (Auto) Eos # (Auto) Baso # (Auto) Abs Immat Gran (auto) Imm/Tot Granulo (auto) Sodium Potassium Chloride Carbon Dioxide Anion Gap BUN Creatinine Est GFR ( Amer) Est GFR (Non-Af Amer) BUN/Creatinine Ratio Glucose Calcium Total Bilirubin AST ALT Alkaline Phosphatase NT-Pro-B Natriuret Pep Total Protein Albumin Globulin Albumin/Globulin Ratio POC Glucose 145 H 343 H Discharge Plan Discharge Disposition: Home Health Service Condition: Fair Discharge Medications: New amoxicillin-pot clavulanate 875-125 mg tablet 1 tab PO BID Qty: 14 0RF prednisone 10 mg tablet 40 mg PO DAILY Qty: 32 0RF Rx Instructions: 4/day for 3 days, 3/day for 3 days, 2/day for 3 days, 1/day for 3 days, 1/2 /day for 4 days albuterol sulfate [Ventolin HFA] 90 mcg/actuation HFA aerosol inhaler 2 inh inhalation Q6H PRN (Reason: shortness of breath or wheezing) Qty: 8.5 0RF Continued atorvastatin 80 mg tablet 80 mg PO DAILY carvedilol 12.5 mg tablet 12.5 mg PO Q12H furosemide 20 mg tablet 20 mg PO BID glimepiride 4 mg tablet 2 mg PO DAILY metformin 500 mg tablet 500 mg PO BID pantoprazole 40 mg tablet,delayed release (DR/EC) 40 mg PO DAILY Xarelto 20 mg tablet 20 mg PO DAILY ferrous sulfate 325 mg (65 mg iron) tablet 325 mg PO DAILY omega 3-uvx-iev-fish oil [Fish Oil] 300-1,000 mg capsule 1 cap PO DAILY Jardiance 10 mg tablet 10 mg PO DAILY multivitamin [Daily Multi-Vitamin] Tablet 1 tab PO DAILY dorzolamide-timolol 22.3-6.8 mg/mL drops 1 drp OPHTHALMIC (EYE) BID Patient Comments: both eyes latanoprost 0.005 % drops 1 drp OPHTHALMIC (EYE) .qhs Patient Comments: both eyes Discontinued amlodipine-benazepril 10-20 mg capsule 1 cap PO DAILY Print Language: Azeri Forms: Portal Instructions Follow Up Appointments: Viviane Clark., Jan 22, 2024 at 11:00am [phone]
--- NOTE | 2024-01-16 08:36 | CM.NOTE ---
Rounds made with Dr. Sahu, discussed discharge to home with pt. Pt will have walk test for home oxygen need. Pt will also have [facility] services. Pt will f/u with Dr. Sahu on Sunday or Sunday.
--- NOTE | 2024-01-16 09:00 | CM.NOTE ---
2nd Notice of Important Message From Medicare discussed with pt, pt denies questions or concerns.
[2024-01-16] MEDS: GLIMEPIRIDE 2 MG TABLET 1 MG PO (09:04)
[2024-01-16] MEDS: CALCIUM CARBONATE 500 MG (200MG ELEMENTAL) TAB CHEW PO ×2 (09:04→11:09)
[2024-01-16] MEDS: LISINOPRIL 20 MG TABLET PO (09:04)
[2024-01-16] MEDS: METFORMIN HCL 500 MG TABLET PO (09:04)
[2024-01-16] MEDS: MULTIVITAMIN TABLET 1 TAB PO (09:04)
[2024-01-16] MEDS: FISH OIL 1,000 MG CAPSULE 1000 MG PO (09:05)
[2024-01-16] MEDS: CARVEDILOL 12.5 MG TABLET PO (09:05)
[2024-01-16] MEDS: FERROUS SULFATE 325 MG TABLET PO (09:05)
[2024-01-16] MEDS: EMPAGLIFLOZIN 10 MG 10 EACH PO (09:08)
[2024-01-16] MEDS: DORZOLAMIDE HCL 2%/TIMOLOL MALEATE 0.5% 200 DROP/10 ML BOTTLE OP (09:09)
--- NOTE | 2024-01-16 09:23 | SWNOTE1 ---
[facility] is able to accept. Pt may need home oxygen.
--- NOTE | 2024-01-16 09:40 | PC.NURSE ---
exercise with 3lnc
--- NOTE | 2024-01-16 09:58 | SWNOTE1 ---
Pt will need home oxygen. SW spoke to pt and , SW provided list of DME companies. They would like to use [facility]. SW let them know that [facility] is able to accept. Case management sent face sheet, script, H&P, dc summary, and walk test to [facility].
--- NOTE | 2024-01-16 10:05 | CM.NOTE ---
Pt requesting [facility] for home oxygen, faxed Face sheet, Physician H&P, Discharge Summary, order sheet, and walk test for new referral to [facility].
[2024-01-16] MEDS: SODIUM CHLORIDE 0.9% INHALATION 3 ML NEB 6 ML IH (10:58)
[2024-01-16] MEDS: IPRATROPIUM/ALBUTEROL SULFATE 3 ML AMPUL.NEB IH (10:58)
[2024-01-16] MEDS: PANTOPRAZOLE SODIUM 40 MG VIAL IV (11:09)
--- NOTE | 2024-01-16 12:00 | SWNOTE1 ---
AB spoke to Jaqueline at [facility] and they received referral. SW spoke to Jaqueline again and they need a signed dc summary that documents need for home o2. They also need doctor to sign walk test. SW printed signed dc summary and SW sent walk test to doctor for him to sign.
--- NOTE | 2024-01-16 13:27 | SWNOTE1 ---
AB faxed CRF, dc med rec, and dc summary to [facility].
--- NOTE | 2024-01-16 13:48 | SWNOTE1 ---
SW received signed walk test back and faxed that and dc summary to [facility].
--- NOTE | 2024-01-16 14:34 | SWNOTE1 ---
SW received a call from Jaqueline at [facility] and pt's home oxygen good to go. AB took a tank to pt's room and advised pt and to call [facility], number provided. They voiced understanding. AB updated nurse as well. Pt is going home with Oxygen at 3 liters thru [facility] and [facility] [place].
--- NOTE | 2024-01-16 14:57 | PC.NURSE ---
discharge instructions given to pt and , both verbalized understanding. explained o2 tank to pt and , pt returned demonstration on connecting o2 tubing to tank. taken to exit via wheelchair and with o2, belongings with . discharged to private vehicle.
--- NOTE | 2024-01-17 15:51 | CM.DCFOLLOWU ---
Person spoke with:patient How are you feeling?well How is your pain?none Did you understand your discharge instructions?yes Do you have any questions about your discharge instructions?no Were you given any prescriptions at discharge?yes Were you able to get your prescriptions filled?yes Do you understand how to take your medications as ordered?yes Do you have any questions about your follow up appointment and do you plan to keep your follow up appointment? no questions, follow up reviewed, home health there now and oxygen delivered Is there anything else that you would like to discuss?no Questions/Comments/Concerns/Other:none
== END 2024-01-16 15:00 | disposition home health service (06) | DRG 291 ==
LOC: ER 11:28 → MS 13:12 → ICU 01-11 13:54
PROVIDERS: Registered Nurse; Admitting Provider Family Medicine; Emergency Provider Emergency Medicine; PCP Family Medicine; Visit Provider Family Medicine
DX: I11.0 Hypertensive heart disease with heart failure (principal); I50.41 Acute combined systolic (congestive) and diastolic (congestive) heart failure; J18.9 Pneumonia, unspecified organism; J96.01 Acute respiratory failure with hypoxia; J96.02 Acute respiratory failure with hypercapnia; J44.0 Chronic obstructive pulmonary disease with (acute) lower respiratory infection; J44.1 Chronic obstructive pulmonary disease with (acute) exacerbation; E87.4 Mixed disorder of acid-base balance; D50.9 Iron deficiency anemia, unspecified; E11.9 Type 2 diabetes mellitus without complications; E87.6 Hypokalemia; I48.91 Unspecified atrial fibrillation; K21.9 Gastro-esophageal reflux disease without esophagitis; K59.00 Constipation, unspecified; R91.8 Other nonspecific abnormal finding of lung field; Z79.84 Long term (current) use of oral hypoglycemic drugs; Z79.01 Long term (current) use of anticoagulants; Z87.891 Personal history of nicotine dependence; Z95.5 Presence of coronary angioplasty implant and graft
CPT/HCPCS: 36415; 36600; 71045; 71046; 71275; 80048; 80053; 81001; 82800; 82805; 82948; 83605; 83735; 83880; 84132; 84436; 84443; 84481; 84484; 85007; 85025; 85027; 85610; 87040; 87811; 93005; 93306; 94640; 94660; 94667; 94668; 94761; 94799; 96374; 96375; 99285; J0456; J0696; J1100; J1940; J2543; J2919; J3480; Q9967

== ENCOUNTER 2024-02-18 15:22 | Outpatient (OUT) | payer MEDICARE, SELFPAY ==
--- NOTE | 2024-02-18 15:25 | PE_ITS ---
The [address] [address] Patient Name: KHADAR RAMOS MRN: [id number] date: 1940 Sex: M Assigned Patient Location: PETCT Current Patient Location: PETCT Accession/Order Number: [id number] Exam Date: 02/18/2024 16:59 Report Date: 02/21/2024 23:21 At the request of: JOSY DELACRUZ Procedure: PET skull to mid thigh PET/CT: HISTORY: Solitary pulmonary nodule. COMPARISON: CT angiogram chest 01/11/2024, CT abdomen and pelvis 09/23/2022, MRI abdomen 10/10/2022. TECHNIQUE: The patient was injected with 13.49 mCi of F-18 fluorodeoxyglucose (FDG), and an emission scan was performed from the base of the skull to the mid thigh. Noncontrast CT was performed for attenuation correction and anatomic localization. The blood glucose level was 112 mg/dl. The uptake time was 50 minutes. FINDINGS: HEAD AND NECK: There is a physiologic distribution of activity, with no hypermetabolic foci. CHEST: The SUVmax of the mediastinum = 2.6 using the patient's body weight as the normalization method. There is a hypermetabolic mass at the left lung apex with central photopenia consistent with necrosis, image 58, SUV max 11.8, measuring 3 x 2.8 cm. There are a few adjacent hypermetabolic pulmonary nodules in the left upper lobe such as on image 62 with SUV max 12.1 measuring 1.4 x 0.9 cm and on image 66 with SUV max 3.6 measuring 0.7 cm. There is groundglass opacity with interlobular septal thickening at the bilateral lung apices which may be due to interstitial edema or lymphangitic carcinomatosis. There is a hypermetabolic prevascular mediastinal lymph node on image 77 with SUV max 5 measuring approximately 10 mm in short axis diameter. There is ill-defined groundglass opacity in the right upper lobe on image 85 with mild uptake with SUV max 2.1. There is a hypermetabolic nodule along the left major fissure on image 89 with SUV max 1.7 measuring 0.9 x 0.6 cm. There are a few new ill-defined nodular foci of consolidation in the right middle lobe with associated mild to moderate FDG uptake with SUV max ranging to 3.1. There is a nodular density in the lingula on image 97 measuring 8 mm which is not seen previously, with no significant FDG uptake. There is also a 5 mm right lower lobe nodule which was not seen previously although there was atelectasis or consolidation in this region on the prior CT. There are a few additional small right lower lobe pulmonary nodules. There are several small nodules along the left major fissure which are stable and below resolution limits of PET. ABDOMEN AND PELVIS: There is a physiologic distribution of activity within the liver, spleen, adrenal glands, urinary tract and bowel, with no hypermetabolic foci. MUSCULOSKELETAL SYSTEM: There is a physiologic distribution of activity within the bone marrow, with no hypermetabolic foci. ADDITIONAL CT FINDINGS: There is moderate to severe cardiomegaly. The main pulmonary artery is dilated at 3.3 cm suspicious for pulmonary hypertension. Esophagus is markedly distended with fluid consistent with gastroesophageal reflux and this is stable. There is a stable moderate hiatal hernia. There are trace bilateral pleural effusions. There is a 3.2 x 3.5 cm cystic lesion in the body of the pancreas which is photopenic and previously measured at 2.4 x 2.[address] from 09/23/2022. There is a stable 14 mm right adrenal adenoma. There is bilateral perinephric stranding consistent with medical renal disease and there are several bilateral renal cysts the largest of which is in the lower pole of the right kidney and measures 7 x 5.6 cm. There is diffuse atherosclerotic calcification throughout the thoracoabdominal aorta, iliac and femoral arteries. There are multiple diverticula in the sigmoid colon with no acute diverticulitis. There are multiple brachytherapy seeds in the prostate gland. There is mild bladder wall thickening which may be due to chronic outlet obstruction. There is a small right bladder diverticulum. There are small fat-containing bilateral inguinal hernias and there is a small fluid collection in the right inguinal hernia which may be due to a hydrocele and is stable. PET/PET skull to mid thigh IMPRESSION: 1. 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 2. Several hypermetabolic left upper lobe pulmonary nodules suspicious for metastases. 3. Hypermetabolic prevascular mediastinal lymph node suspicious for a metastasis. 4. Groundglass opacities in the right upper lobe with mild FDG uptake and hypermetabolic ill-defined somewhat nodular appearing focus of consolidation in the right middle lobe suspicious for pneumonia. There are few additional small pulmonary nodules as described above which are near or below resolution limits of PET. Recommend attention on follow-up 5. Enlarging cystic lesion in the pancreas which is photopenic. Consider endoscopic ultrasound/fine-needle aspiration and surgical consultation per ACR guidelines. 6. Additional CT findings as described above. Electronically authenticated by: SHANITA TURNER Date: 02/21/2024 23:21
== END 2024-02-18 15:23 | disposition home or self-care (01) ==
LOC: PETCT 15:22
PROVIDERS: PCP Family Medicine; Visit Provider Family Medicine
DX: R91.8 Other nonspecific abnormal finding of lung field (principal); C34.90 Malignant neoplasm of unspecified part of unspecified bronchus or lung
CPT/HCPCS: 78815; A9552

== ENCOUNTER 2024-02-21 08:54 | Outpatient (OUT) | payer MEDICARE, SELFPAY ==
--- NOTE | 2024-02-21 09:00 | CA_ITS ---
Patient Name: KHADAR RAMOS MR#: [id number] : 1940 Exam Date: 02/21/2024 Ordering Doctor: DR. CHRIS STRANGE M.D. ECHOCARDIOGRAM REPORT PROCEDURE: CA ECHO W/ CON INDICATIONS: Chronic combined systolic and diastolic heart failure COMPARISON: None. DESCRIPTION: LIMITED ECHOCARDIOGRAM Real-time transthoracic echocardiography with 2D, M-mode, spectral and color flow Doppler performed. QUALITY: Lumason contrast was administered due to suboptimal imaging for left ventricular opacification to improve delineation of endocardial boarders. LEFT VENTRICLE: LV EF: Mildly reduced left ventricular ejection fraction, (45-50%). DIASTOLIC: ATRIAL SEPTUM: LEFT ATRIUM: RIGHT ATRIUM: RIGHT VENTRICLE: Mildly dilated with borderline reduced systolic function. TRICUSPID VALVE: MITRAL VALVE: AORTIC VALVE: AORTIC ROOT: PULMONIC VALVE: PERICARDIUM: No pericardial effusion. IVC: PLEURA: CONCLUSION: 1. Left ventricular systolic function is mildly reduced. Estimated LVEF is 45 to 50%. 2. Mildly dilated right ventricle with borderline reduced systolic function. Adult Echocardiography Procedure Report Left Ventricle Left Atrium Mitral Valve Right Ventricle Aorta Aortic Valve Tricuspid Valve Pulmonic Valve Right Atrium Dictated by: Emiliano Núñez M.D. on 02/21/2024 at 21:05 Approved by: Emiliano Núñez M.D. on 02/21/2024 at 21:09
[2024-02-21] MEDS: SULFUR HEXAFLUORIDE MICROSPHR 25 MG/5 ML VIAL 10 MG IV (09:51)
== END 2024-02-21 08:55 | disposition home or self-care (01) ==
LOC: CARD 08:54
PROVIDERS: PCP Family Medicine; Visit Provider Internal Medicine Cardiovascular Disease
DX: I50.42 Chronic combined systolic (congestive) and diastolic (congestive) heart failure (principal)
CPT/HCPCS: C8929; Q9950

== ENCOUNTER 2024-02-25 09:05 | Outpatient (OUT) | payer MEDICARE, SELFPAY ==
[2024-02-25 10:08] LABS: Chol HDL Ratio 2.5; Cholesterol 113 mg/dL (<=200); HDL Cholesterol 45 mg/dL (40-60); LDL Cholesterol Calculated 52.4 mg/dL; Triglycerides 78 mg/dL (<=150); VLDL CHOLESTEROL 15.6 mg/dL
== END 2024-02-25 09:06 | disposition home or self-care (01) ==
LOC: LAB 09:07
PROVIDERS: PCP Family Medicine; Visit Provider Internal Medicine Cardiovascular Disease
DX: E78.00 Pure hypercholesterolemia, unspecified (principal)
CPT/HCPCS: 36415; 80061

== ENCOUNTER 2024-02-25 09:52 | Outpatient (OUT) | payer MEDICARE, SELFPAY ==
[2024-02-25 10:03] LABS: Anion Gap 9.5; BUN Creatinine Ratio 14.3; Calcium 9.3 mg/dL (8.5-10.1); Carbon Dioxide 33.3 mmol/L (21.0-32.0); Chloride 106 mmol/L (98-107); Estimated GFR (African America >60 (>=60 mL/min/1.73m^2); Estimated GFR (Non-African Ame >60 (>=60 mL/min/1.73m^2); Glucose 114 mg/dL (74-106); Potassium 3.8 mmol/L (3.5-5.1); Sodium 145 mmol/L (136-145)
== END 2024-02-25 09:53 | disposition home or self-care (01) ==
LOC: LAB 09:53
PROVIDERS: PCP Family Medicine; Visit Provider Internal Medicine Cardiovascular Disease
DX: E78.00 Pure hypercholesterolemia, unspecified (principal); I45.5 Other specified heart block
CPT/HCPCS: 36415; 80048; 80061

== ENCOUNTER 2024-02-29 10:21 | Outpatient (OUT) | payer MEDICARE, SELFPAY ==
--- OUTSIDE RECORDS SUMMARY | 2024-02-29 10:39 | XMS_ITS | CCD ---
Author Organization [facility] Care Team Providers Care Load Checker Name Role Phone RAMYA FLANAGAN Attending Unavailable RAMYA FLANAGAN Admitting Unavailable JOSY SAHU Referring Unavailable JOSY SAHU Primary Care Unavailable SEVERIANO, BABAK Admitting Unavailable SEVERIANO, BABAK Consulting Unavailable SEVERIANO, BABAK Attending Unavailable NUBIA, DR FERRIS Primary Care Unavailable SEVERIANOADEBABAK Attending Unavailable SEVERIANO BABAK Admitting Unavailable ADE العليISSA Consulting Unavailable NUBIA, DR FERRIS Primary Care Unavailable ELTAJERROD, DR BUI Admitting Unavailable NUBIA, DR FERRIS Primary Care Unavailable ELTAHAWLatha, DR BUI Consulting Unavailable ELTAJERROD, DR BUI Attending Unavailable ALFIE, DR KILGORE Admitting Unavailable ALFIE, DR KILGORE Consulting Unavailable ALFIE, DR KILGORE Attending Unavailable NUBIA, DR FERRIS Primary Care Unavailable Josy Sahu Primary Care Physician Yousuf MARTIN Attending Unavailable Yousuf MARTIN Attending Unavailable KELY ENGLE Attending Unavailable KELY ENGLE Attending Unavailable KELY ENGLE Attending Unavailable KELY ENGLE Attending Unavailable KELY ENGLE Attending Unavailable Unavailable Primary Care Provider UnavailCHRIS Shea Attending Unavailable JACKY RUIZ Attending Unavailable JACKY RUIZ Attending Unavailable Medications Current Medications Medication Drug Class(es) Dates Sig (Normalized) Sig (Original) Amlodipine (3 sources) Dihydropyridine Calcium Channel Kendy Start: 04-25-2019 amlodipine Oral, Daily, Refills(s) 0 Start Date: 04/25/19 Status: Ordered amLODIPine 10 mg / benazepril hydrochloride 20 mg oral capsule (2 sources) Dihydropyridine Calcium Channel Kendy, Angiotensin Converting Enzyme Inhibitor take 1 capsule by mouth once daily amLODIPine-benaze pril (Lotrel) 10-20 MG capsule Take 1 capsule every day by oral route for 90 days. Active aspirin 81 mg delayed release oral tablet (2 sources) Platelet Aggregation Inhibitor, Nonsteroidal Anti-inflammatory Drug take 1 tablet by mouth in the morning aspirin 81 MG EC tablet Take 1 tablet by mouth in the morning. Active atorvastatin 80 mg oral tablet (5 sources) HMG-CoA Reductase Inhibitor Start: 04-25-2021 take 1 mg by mouth once daily atorvastatin 80 mg Tab mg tab(s), Oral, Daily, Refills(s) 0 Start Date: 04/25/21 Status: Ordered carvedilol 12.5 mg oral tablet (7 sources) alpha-Adrenergic Kendy, beta-Adrenergic Kendy Start: 04-03-2022 take 1 tablet by mouth twice daily carvedilol (Coreg) 12.5 MG tablet Take 1 tablet twice a day by oral route. 04/03/2022 Active Start: 04-25-2021 take 1 mg by mouth twice daily carvedilol 3.125 mg Tab mg tab(s), Oral, BID, Refills(s) 0 Start Date: 04/25/21 Status: Ordered Start: 04-25-2021 take 1 mg by mouth twice daily carvedilol 3.125 mg Tab mg tab(s), Oral, BID, Refills(s) 0 Start Date: 04/25/21 Status: Ordered take 1 tablet by quyen th twice daily carvedilol (Coreg) 6.25 MG tablet Take 1 tablet twice a day by oral route. Active Cinnamon Preparation (3 sources) Non-Standardized Food Allergenic Extract Start: 04-25-2019 take 1 mg by mouth twice daily cinnamon mg, Oral, BID, Refills(s) 0 Start Date: 04/25/19 Status: Ordered clopidogrel 75 mg oral tablet (3 sources) P2Y12 Platelet Inhibitor Start: 04-25-2021 take 1 mg by mouth once daily clopidogrel 75 mg Tab mg tab(s), Oral, Daily, Refills(s) 0 Start Date: 04/25/21 Status: Ordered docosahexaenoic acid 120 mg / eicosapentaenoic acid 180 mg oral capsule (2 sources) omega-3 (fish oil) 1000 MG capsule 1 capsule 1 (one) time each day at the same time. Active dorzolamide 20 mg/ml / timolol 5 mg/ml ophthalmic solution (2 sources) Carbonic Anhydrase Inhibitor, beta-Adrenergic Kendy Start: 08-24-2023 End: 08-23-2024 take 1 drop(s) into the eye(s) in the morning dorzolamide-karissa lol (Cosopt) 2-0.5 % ophthalmic solution Indications: Primary open angle glaucoma (POAG) of both eyes, mild stage (CMS/HCC) Administer 1 drop into both eyes in the morning and 1 drop before bedtime. 10 mL 5 08/24/2023 08/23/2024 Active empagliflozin 10 mg oral tablet (2 sources) Sodium-Glucose Cotransporter 2 Inhibitor take 1 tablet by mouth in the morning Jardiance 10 MG Take 1 tablet by mouth in the morning. Active ferrous sulfate 325 mg delayed release oral tablet (5 sources) Start: 04-25-2021 take 1 mg by mouth once daily ferrous sulfate 325 mg oral enteric coated tablet mg tab(s), Oral, Daily, Refills(s) 0 Start Date: 04/25/21 Status: Ordered take 1 tablet by mouth in the mo rning ferrous sulfate 325 (65 Fe) MG tablet Take 1 tablet by mouth in the morning. Active Fish Oils (3 sources) Start: 04-25-2019 Fish Oil Oral, Refill(s) 0 Start Date: 04/25/19 Status: Ordered furosemide 40 mg oral tablet (5 sources) Loop Diuretic Start: 04-25-2021 take 1 mg by mouth once daily furosemide 40 mg Tab mg tab(s), Oral, Daily, Refills(s) 0 Start Date: 04/25/21 Status: Ordered take 1 tablet by mouth twice jessenia ly furosemide (Lasix) 20 MG tablet Take 1 tablet twice a day by oral route for 90 days. Active glimepiride (5 sources) Sulfonylurea Start: 04-25-2019 glimepiride Or al, Daily, Refills(s) 0 Start Date: 04/25/19 Status: Ordered take 1 tablet by mouth in the mo rning glimepiride (Amaryl) 4 MG tablet Take 1 tablet by mouth in the morning and 1 tablet before bedtime. Active Iron Chews (3 sources) Start: 04-25-2019 take 1 mg by mouth once daily Iron Chews mg, Oral, Daily, Refills(s) 0 Start Date: 04/25/19 Status: Ordered latanoprost 0.05 mg/ml ophthalmic solution (2 sources) Prostaglandin Analog Start: 07-16-2023 take 1 drop(s) into the eye(s) at bedtime latanoprost (Xalatan) 0.005 % ophthalmic solution Indications: Primary open angle glaucoma (POAG) of both eyes, mild stage (CMS/HCC) INSTILL 1 DROP INTO BOTH EYES AT BEDTIME 2.5 mL 5 07/16/2023 Active levoFLOXacin 500 mg oral tablet (2 sources) Quinolone Antimicrobial levoFLOXacin (Levaquin) 500 MG tablet 1 (one) time each day at the same time. Active losartan potassium 25 mg oral tablet (3 sources) Angiotensin 2 Receptor Kendy Start: 04-25-2021 take 1 mg by mouth once daily losartan 25 mg Tab mg tab(s), Oral, Daily, Refills(s) 0 Start Date: 04/25/21 Status: Ordered metFORMIN (5 sources) Biguanide Start: 04-25-2019 metformin Oral, Refills(s) 0 Start Date: 04/25/19 Status: Ordered take 1 tablet by mouth in the mo rning metFORMIN (Glucophage) 500 MG tablet Take 1 tablet by mouth in the morning and 1 tablet before bedtime. Active 24 hr metoprolol succinate 50 mg extended release oral tablet (3 sources) beta-Adrenergic Kendy Start: 04-25-2019 take 1 mg by mouth once daily metoprolol 50 mg ER Tab mg tab(s), Oral, Daily, Refills(s) 0 Start Date: 04/25/19 Status: Ordered mometasone furoate 1 mg/ml topical cream (2 sources) Corticosteroid mometasone (Elocon) 0.1 % cream 1 application 1 (one) time each day at the same time. Active Multi Vitamin+ (3 sources) Start: 04-25-2019 Multi Vitamin+ Refill(s) 0 Start Date: 04/25/19 Status: Ordered Multiple Vitamins-Minerals (Multivitamin Men) tablet (2 sources) Multiple Vitamins-Minerals (Multivitamin Men) tablet as directed Orally Active pantoprazole 40 mg delayed release oral tablet (5 sources) Proton Pump Inhibitor Start: 10-13-2022 take 1 mg by mouth once daily Pantoprazole [address] Tab mg tab(s), Oral, Daily, Refills(s) 0 Start Date: 10/13/22 Status: Ordered Xarelto (5 sources) Factor Xa Inhibitor Start: 04-25-2019 Xarelto Oral, Refills(s) 0 Start Date: 04/25/19 Status: Ordered take 1 tablet by mouth once syed y rivaroxaban (Xarelto) 20 MG tablet Take 1 tablet every day by oral route for 90 days. Active Simvastatin (5 sources) HMG-CoA Reductase Inhibitor Start: 04-25-2019 simvastatin Oral, Refills(s) 0 Start Date: 04/25/19 Status: Ordered simvastatin (Zoc or) 20 MG tablet 1 (one) time each day at the same time. Active Completed/Discontinued Medications Medication Drug Class(es) Dates Sig (Normalized) Sig (Original) ciprofloxacin 500 mg oral tablet (1 source) Quinolone Antimicrobial Start: 10-13-2022 End: 10-15-2022 take 1 tablet by mouth once daily Cipro 500 mg Tab 500 mg = 1 tab(s), Oral, Daily, Take one tab day before procedure, take one tab after procedure, X 2 day(s), # 2 tab(s), Refills(s) 0, Pharmacy: [facility]/pharmacy #[id number], 169, cm, 10/13/22 9:51:00 EDT, [...] Translations: [Atrial fibrillation] Onset: 05-06-2021 04-25-2019 Chronic Cataract (3 sources) Bilateral age-related nuclear cataracts; Translations: [Age-related nuclear cataract, bilateral] Onset: 08-24-2023 11-27-2023 Chronic Chronic obstructive pulmonary disease and bronchiectasis (2 sources) Emphysema, unspecified; Translations: [Emphysema, unspecified] Onset: 03-29-2023 Chronic Congestive heart failure; nonhypertensive (4 sources) Chronic systolic (congestive) heart failure; Translations: [Acute systolic (congestive) heart failure] Onset: 05-06-2021 Chronic Coronary atherosclerosis and other heart disease (3 sources) Atherosclerotic heart disease of [place] coronary artery without angina pectoris; Translations: [ASHD [place] CA W/O ANGINA PECTORIS] Onset: 04-07-2022 Chronic Diabetes mellitus without complication (9 sources) Type 2 diabetes mellitus without complications; Translations: [Diabetes mellitus] Onset: 05-04-2021 Chronic Diabetes mellitus without complication (3 sources) Glycosuria 04-25-2019 Episodic Disorders of lipid metabolism (7 sources) Hyperlipidemia; Translations: [Pure hypercholesterolemia, unspecified] Onset: 04-07-2022 04-25-2019 Chronic Essential hypertension (7 sources) Essential (primary) hypertension; Translations: [Hypertensive disorder] Onset: 10-25-2021 Chronic Genitourinary symptoms and ill-defined conditions (10 sources) Nocturia; Translations: [Nocturia] Onset: 04-21-2022 Episodic Glaucoma (3 sources) Primary open angle glaucoma; Translations: [Primary open-angle glaucoma, bilateral, mild stage] Onset: 09-27-2022 11-27-2023 Chronic Heart valve disorders (2 sources) Nonrheumatic aortic (valve) stenosis; Translations: [Nonrheumatic aortic (valve) stenosis] Onset: 02-08-2024 Chronic Hyperplasia of prostate (12 sources) Benign prostatic [...] sources) Cyst of kidney 10-13-2022 Episodic Other lower respiratory disease (2 sources) Other nonspecific abnormal finding of lung field; Translations: [Other nonspecific abnormal finding of lung field] Onset: 02-08-2024 Episodic Other male genital disorders (3 sources) Disorder of male genital organ 04-25-2019 Episodic Other screening for suspected conditions (not mental disorders or infectious disease) (3 sources) Raised prostate specific antigen 04-25-2019 Episodic Pulmonary heart disease (2 sources) Pulmonary hypertension, unspecified; Translations: [Pulmonary hypertension, unspecified] Onset: 02-08-2024 Chronic Retinal detachments; defects; vascular occlusion; and retinopathy (5 sources) Exudative age-related macular degeneration; Translations: [Exudative age-related macular degeneration, right eye, with active choroidal neovascularization] Onset: 09-27-2022 Resolved: 11-27-2023 11-27-2023 Chronic Unclassified (3 sources) Prostatic intraepithelial neoplasia high grade 04-25-2019 Unclassified (2 sources) Longstanding persistent atrial fibrillation; Translations: [Longstanding persistent atrial fibrillation] Onset: 04-07-2022 Results Test Name Value Interpretation Reference Range Facility 36on 02-25-2024 36 Patient was informed of message from Dr Perez. Patient was not pleased with having a PPM put in and will need to think about that. Catherine BRADLEY [facility] [address] Perez, patient needs PPM due to sinus pauses on Holter monitor. Order placed. Waiting for patient to call me back so I can inform him. He had lipids drawn this morning, and I was able to add on BMP. Normal [facility] Orders Onlyon 02-25-2024 Orders Only [id number] Khadar Ramos 1940 M Date Provider Department Center 02/25/2024 Aurora8-DAVID TREVINO [facility]AE [place] Family History Problem Relation Age of Onset Other Father Coronary artery disease Brother Other Brother Family Status - Relation Status Age at Father Brother Normal [facility] Documentationon 02-22-2024 Documentation [id number] Khadar Ramos 1940 M Date Provider Department Center 02/22/2024 [id number] HOWARD Family History Problem Relation Age of Onset Other Father Coronary artery disease Brother Other Brother Family Status - Relation Status Age at Father Brother Normal [facility] Office Visiton 02-08-2024 Follow-up visit [id number] LópezKhadar Smart 1940 M Date Provider Department Center 02/08/2024 [id number] STRANGE [facility] [place] Family History Problem Relation Age of Onset Other Father Coronary artery disease Brother Other Brother Family Status - Relation Status Age at Father Brother Level of Service:87623 ME OFFICE/OUTPATIENT ESTABLISHED MOD MDM 30 MIN Reason for Visit and Comments: Hospital Follow-up [832] - He was admitted to [facility] last month for CHF. Say he's feeling much better s/p discharge. Coronary Artery Disease [187] - Denies chest pain. Congestive Heart Failure [127] - Denies SOB, and LE edema resolves by morning. Using O2 at nighttime. Atrial Fibrillation [80] - Denies palpitations, lightheadedness/sync ope, and bleeding on Xarelto. Hypertension [894031] Hyperlipidemia [182] [facility] Optical coherence tomography study reporton 11-27-2023 [facility] Group Therapy Records e [facility] TCM Bertha Radiology Study observation (narrative) [facility] Perimetry studyon 11-27-2023 [facility] Group Therapy Records Radiology Study observation (narrative) [facility] Urology Office/Clinic Noteon 10-19-2023 Urology Office/Clinic Note Urology Office/Clinic Note Chief Complaint 1 year follow up HPI Staff 1 yr w/ PSA. Dx: BPH with obstruction, hx of prostate cancer *Brachytherapy 2014*, nocturia, renal cyst, gross hematuria. *No urological meds NEG FISH/cytol 10/13/22. S/p Cysto 10/17/22. TAYLA done 10/19/22 at [facility] - results given over the phone. Previous [...] hematuria (R31.0: Gross hematuria) Pt presented to [facility] ER 09/23/22 with gross hematuria. Only for one day. Neg urine culture. S/p cysto 10/17/22 ~neg for b.t. or lesions. Typical telangiectatic radiation changes. FISH/cytol neg. Renal US 10/19/22 [facility] - Small bladder diverticulum. UA today shows [...] Information ALFIE WISE, Yousuf Barroso, [address] [place] [address]- Additional Instructions: 1 year w/ PSA Patient Education Benign Prostatic Hyperplasia I, Lianet Massey, personally scribed for Dr. Martin on 10/19/2023 11:19:03. . Documentation recorded by the scribe, Lianet Massey, accurately reflects the services(s) I performed and [...] Oral Allergie (more content not included)... Normal [facility] Comment on above: Result Comment: Elec tronically Signed By: Yousuf MARTIN MD\.br\Date and Time Signed: 10/19/23 11:20 EDT\.br\Electronically Co-Signed By: Lianet Massey.br\Date and Time Co-Signed: 10/19/23 11:19 EDT Office Visiton 09-25-2023 Follow-up visit [id number] Khadar Ramos 1940 M Date Provider Department Center 09/25/2023 JCAKY ESQUIVEL Family History Problem Relation Age of Onset Other Father Coronary artery disease Brother Other Brother Family Status - Relation Status Age at Father Brother Level of Service:01582 ME OFFICE/OUTPATIENT ESTABLISHED LOW MDM 20 MIN Reason for Visit and Comments: Coronary Artery Disease [187] Atrial Fibrillation [80] Normal [facility] 36on 04-19-2023 36 Please let him know his PFT was abnormal showing signs of COPD. Please forward results to PCP. Please have him follow-up with PCP for further management or we can refer him to pulmonary. Thanks! Normal [facility] Telephoneon 04-19-2023 Telephone [id number] Khadar Ramos 1940 [facility] Provider Department Center 04/19/2023 JACKY ESQUIVEL Family History Problem Relation Age of Onset Other Father Coronary artery disease Brother Other Brother Family Status - Relation Status Age at Father Brother Normal [facility] Telemedicineon 03-29-2023 Telemedicine [id number] Khadar Ramos 1940 [facility] Provider Department Center 03/29/2023 JACKY ESQUIVEL Family History Problem Relation Age of Onset Other Father Coronary artery disease Brother Other Brother Family Status - Relation Status Age at Father Brother Level of Service:42201 ME OFFICE/OUTPATIENT ESTABLISHED MOD MDM 30 MIN Reason for Visit and Comments: Telehealth Audio/video Visit [871] Congestive Heart Failure [127] Coronary Artery Disease [187] Hypertension [494401] Atrial Fibrillation [80] Normal [facility] CBC AUTO DIFFon 04-20-2022 BASO # 0.0 103/ul Normal 0.0-0.1 [facility] Comment on above: Performed By: #### C BC #### [facility] [address] [place] [address] Dr. Nic Marie Basophils/100 WBC (Bld) 0.5 % Normal 0.2-2.0 [facility] Comment on above: Performed By: #### C BC #### [facility] [address] [place] [address] Dr. Nic Marie EO # 0.7 103/ul Normal 0.0-0.7 [facility] Comment on above: Performed By: #### C BC #### [facility] [address] [place] [address] Dr. Nic Marie Eosinophils/100 WBC (Bld) 8.8 % Critically high 0.9-7.0 [facility] Comment on above: Performed By: #### C BC #### [facility] [address] [place] [address] Dr. Nic Marie Erythrocyte distribution width (RBC) [Ratio] 18.0 % Critically high 11.0-15.0 [facility] Comment on above: Performed By: #### C BC #### [facility] [address] [place] [address] Dr. Nic Marie Hematocrit (Bld) [Volume fraction] 44.3 % Normal 42.0-54.0 [facility] Comment on above: Performed By: #### C BC #### [facility] [address] [place] [address] Dr. Nic Marie Hemoglobin (Bld) [Mass/Vol] 13.6 g/dL Critically low 14.0-18.0 [facility] Comment on above: Performed By: #### C BC #### [facility] [address] [place] [address] Dr. Nic Marie IG # 0.05 10e3/ul Critically high 0.00-0.03 [facility] Comment on above: Performed By: #### C BC #### [facility] [address] [place] [address] Dr. Nic Marie IG % 0.6 % Critically high 0.0-0.5 [facility] Comment on above: Performed By: #### C BC #### [facility] [address] [place] [address] Dr. Nic Marie LYMPH # 0.8 103/ul Critically low 1.2-3.8 [facility] Comment on above: Performed By: #### C BC #### [facility] [address] [place] [address] Dr. Nic Marie Lymphocytes/100 WBC (Bld) 10.7 % Critically low 20.5-60.0 [facility] Comment on above: Performed By: #### C BC #### [facility] [address] [place] [address] Dr. Nic Marie MANUAL DIFF REQ NO Normal [facility] Comment on above: Performed By: #### C BC #### [facility] [address] [place] [address] Dr. Nic Marie MCH (RBC) [Entitic mass] 24.9 pg Critically low 25.9-34.0 [facility] Comment on above: Performed By: #### C BC #### [facility] [address] [place] [address] Dr. Nic Marie MCHC (RBC) [Mass/Vol] 30.7 g/dL Normal 29.9-35.2 [facility] Comment on above: Performed By: #### C BC #### [facility] [address] [place] [address] Dr. Nic Marie MCV (RBC) [Entitic vol] 81.0 fL Normal 80.0-94.0 [facility] Comment on above: Performed By: #### C BC #### [facility] [address] [place] [address] Dr. Nic Marie MONO # 0.9 103/ul Critically high 0.3-0.8 [facility] Comment on above: Performed By: #### C BC #### [facility] [address] [place] [address] Dr. Nic Marie Monocytes/100 WBC (Bld) 11.1 % Normal 1.7-12.0 [facility] Comment on above: Performed By: #### C BC #### [facility] [address] [place] [address] Dr. Nic Marie NEUT # 5.3 103/ul Normal 1.4-6.5 [facility] Comment on above: Performed By: #### C BC #### [facility] [address] [place] [address] Dr. Nic Marie Neutrophils/100 WBC (Bld) 68.3 % Normal 43.0-75.0 [facility] Comment on above: Performed By: #### C BC #### [facility] [address] [place] [address] Dr. Nic Marie Platelet mean volume (Bld) [Entitic vol] 10.0 fL Normal 9.5-13.5 [facility] Comment on above: Performed By: #### C BC #### [facility] [address] [place] [address] Dr. Nic Marie PLT 203 103/ul Normal 150-450 [facility] Comment on above: Performed By: #### C BC #### [facility] [address] [place] [address] Dr. Nic Marie RBC 5.47 106/ul Normal 4.70-6.10 [facility] Comment on above: Performed By: #### C BC #### [facility] [address] [place] [address] Dr. Nic Marie WBC 7.8 103/ul Normal 4.0-11.0 [facility] Comment on above: Performed By: #### C BC #### [facility] [address] [place] [address] Dr. Nic Marie LIPID PROFILEon 04-20-2022 CHOL-HDL RATIO NORM SEE BELOW Normal [facility] Comment on above: Result Comment: 3.3 - 4.4 LOW RISK 4.4 - 7.1 AVERAGE RISK 7.1 - 11.0 MODERATE RISK >11.0 HIGH RISK Performed By: #### C MP, LIPID #### [facility] [address] [place] [address] Dr. Nic Marie Cholesterol [Mass/Vol] 108 mg/dL Normal <=200 [facility] Comment on above: Performed By: #### C MP, LIPID #### [facility] [address] [address] [address] Nic Marie Cholesterol in HDL [Mass/Vol] 36 mg/dL Critically low 40-60 [facility] Comment on above: Performed By: #### C MP, LIPID #### [facility] [address] [address] [address] Nic Marie Cholesterol in LDL [Mass/Vol] 54.2 mg/dL Normal [facility] Comment on above: Performed By: #### C MP, LIPID #### [facility] [address] [place] [address] Dr. Nic Marie Cholesterol.total/Ch olesterol in HDL [Mass ratio] 3.0 {ratio} Normal [facility] Comment on above: Performed By: #### C MP, LIPID #### [facility] [address] [address] [address] Nic Marie HDL NORMAL > or = 60 mg/dl - LOW CARDIOVASCULAR RISK <40 mg/dl - HIGH CARDIOVASCULAR RISK Normal [facility] Comment on above: Performed By: #### C MP, LIPID #### [facility] [address] [place] [address] Dr. Nic Marie LDL CALC NORMAL SEE BELOW Normal [facility] Comment on above: Result Comment: <100 mg/dl OPTIMAL 100 - 129 mg/dl NEAR OR ABOVE OPTIMAL 130 - 159 mg/dl BORDERLINE HIGH 160 - 189 mg/dl HIGH >190 mg/dl VERY HIGH Performed By: #### C MP, LIPID #### [facility] [facility] [address] [address] [address] Nic Marie Triglyceride [Mass/Vol] 89 mg/dL Normal <=150 [facility] Comment on above: Performed By: #### C MP, LIPID #### [facility] [address] [address] [address] Nic Marie VLDL CALC 17.8 mg/dL Normal [facility] Comment on above: Performed By: #### C MP, LIPID #### [facility] [address] [address] [address] Nic Marie PROF 14(COMP METB)on 023 Albumin [Mass/Vol] 3.7 g/dL Normal 3.4-5.0 [facility] Comment on above: Performed By: #### C MP, LIPID #### [facility] [address] [address] [address] Nic Marie Albumin/Globulin [Mass ratio] 1.0 {ratio} Normal [facility] Comment on above: Performed By: #### C MP, LIPID #### [facility] [address] [address] [address] Nic Marie ALP [Catalytic activity/Vol] 59 U/L Normal 46-116 [facility] Comment on above: Performed By: #### C MP, LIPID #### [facility] [address] [address] [address] Nic Marie ALT [Catalytic activity/Vol] 28 U/L Normal 16-63 [facility] Comment on above: Performed By: #### C MP, LIPID #### [facility] [address] [address] [address] Nic Marie Anion gap [Moles/Vol] 12.1 mmol/L Normal [facility] Comment on above: Performed By: #### C MP, LIPID #### [facility] [address] [address] [address] Nic Marie AST [Catalytic activity/Vol] 18 U/L Normal 15-37 [facility] Comment on above: Performed By: #### C MP, LIPID #### [facility] [address] [address] [address] Nic Marie Bilirubin [Mass/Vol] 0.6 mg/dL Normal 0.2-1.0 [facility] Comment on above: Performed By: #### C MP, LIPID #### [facility] [address] [address] [address] Nic Marie Calcium [Mass/Vol] 9.6 mg/dL Normal 8.5-10.1 [facility] Comment on above: Performed By: #### C MP, LIPID #### [facility] [address] [address] [address] Nic Marie Chloride [Moles/Vol] 104 mmol/L Normal 98-107 [facility] Comment on above: Performed By: #### C MP, LIPID #### [facility] [address] [address] [address] Nic Marie CO2 [Moles/Vol] 30.3 mmol/L Normal 21.0-32.0 [facility] Comment on above: Performed By: #### C MP, LIPID #### [facility] [address] [address] [address] Nic Marie Creatinine [Mass/Vol] 0.99 mg/dL Normal 0.70-1.30 [facility] Comment on above: Performed By: #### C MP, LIPID #### [facility] [address] [address] [address] Nic Marie EGFR-AF RUSSIAN >60 Normal >=60 [facility] Comment on above: Performed By: #### C MP, LIPID #### [facility] [address] [place] [address] Dr. Nic Marie EGFR-NON AF RUSSIAN >60 Normal >=60 [facility] Comment on above: Performed By: #### C MP, LIPID #### [facility] [address] [place] [address] Dr. Nic Marie Globulin (S) [Mass/Vol] 3.6 g/dL Normal [facility] Comment on above: Performed By: #### C MP, LIPID #### [facility] [address] [address] [address] Nic Marie Glucose [Mass/Vol] 114 mg/dL Critically high 74-106 [facility] Comment on above: Performed By: #### C MP, LIPID #### [facility] [address] [address] [address] Nic Marie Potassium [Moles/Vol] 4.4 mmol/L Normal 3.5-5.1 [facility] Comment on above: Performed By: #### C MP, LIPID #### [facility] [address] [address] [address] Nic Marie Protein [Mass/Vol] 7.3 g/dL Normal 6.4-8.[address] [facility] Comment on above: Performed By: #### C MP, LIPID #### [facility] [address] [address] [address] Nic Marie Sodium [Moles/Vol] 142 mmol/L Normal 136-[address] [facility] Comment on above: Performed By: #### C MP, LIPID #### [facility] [address] [address] [address] Nic Marie Urea nitrogen [Mass/Vol] 23.0 mg/dL Critically high 7.0-18.0 [facility] Comment on above: Performed By: #### C MP, LIPID #### [facility] [address] [place] [address] Dr. Nic Marie Urea nitrogen/Creatinine [Mass ratio] 23.2 mg/mg Normal [facility] Comment on above: Performed By: #### C MP, LIPID #### [facility] [address] [address] [address] Nic Marie PROF CHEM 8 (BAS METB)on Anion gap [Moles/Vol] 13.0 mmol/L Normal [facility] Comment on above: Performed By: #### P SAD #### [facility] [address] [place] [address] Dr. Nic Marie Calcium [Mass/Vol] 9.0 mg/dL Normal 8.5-10.[address] [facility] Comment on above: Performed By: #### P SAD #### [facility] [address] [address] [address] Nic Marie Chloride [Moles/Vol] 100 mmol/L Normal 98-107 [facility] Comment on above: Performed By: #### P SAD #### [facility] [address] [place] [address] Dr. Nic Marie CO2 [Moles/Vol] 27.2 mmol/L Normal 21.0-32.0 [facility] Comment on above: Performed By: #### P SAD #### [facility] [address] [address] [address] Nic Marie Creatinine [Mass/Vol] 1.18 mg/dL Normal 0.70-1.30 [facility] Comment on above: Performed By: #### P SAD #### [facility] [address] [address] [address] Nic Marie EGFR-AF RUSSIAN >60 Normal >=60 [facility] Comment on above: Performed By: #### P SAD #### [facility] [address] [address] [address] Nic Marie EGFR-NON AF RUSSIAN =60 Normal >=60 [facility] Comment on above: Performed By: #### P SAD #### [facility] [address] [address] [address] Nic Marie Glucose [Mass/Vol] 238 mg/dL Critically high 74-106 T [facility] Comment on above: Performed By: #### P SAD #### [facility] [address] [address] [address] Nic Marie Potassium [Moles/Vol] 4.2 mmol/L Normal 3.5-5.1 [facility] Comment on above: Performed By: #### P SAD #### [facility] [address] [address] [address] Nic Marie Sodium [Moles/Vol] 136 mmol/L Normal 136-145 [facility] Comment on above: Performed By: #### P SAD #### [facility] [address] [address] [address] Nic Marie Urea nitrogen [Mass/Vol] 30.0 mg/dL Critically high 7.0-18.0 [facility] Comment on above: Performed By: #### P SAD #### [facility] [address] [address] [address] Nic Marie Urea nitrogen/Creatinine [Mass ratio] 25.4 mg/mg Normal [facility] Comment on above: Performed By: #### P SAD #### [facility] [address] [place] [address] Dr. Nic Marie CBC W MANUAL DIFFon 05-05-19 22 ANISOCYTOSIS SLIGHT Normal [facility] Comment on above: Performed By: #### C BCMAN #### [facility] [address] [place] [address] Dr. Nic Marie ATYPICAL LYMPH # Normal [facility] Comment on above: Performed By: #### C BCMAN #### [facility] [address] [place] [address] Dr. Nic Marie ATYPICAL LYMPH % Normal [facility] Comment on above: Performed By: #### C BCMAN #### [facility] [address] [place] [address] Dr. Nic Marie BAND # Normal 0.0-0.3 [facility] Comment on above: Performed By: #### C BCMAN #### [facility] [address] [place] [address] Dr. Nic Marie BAND % Normal 0-5 [facility] Comment on above: Performed By: #### C BCMAN #### [facility] [address] [place] [address] Dr. Nic Marie BASOM # 0.15 103/ul Critically high 0.00-0.10 [facility] Comment on above: Performed By: #### C BCMAN #### [facility] [address] [place] [address] Dr. Nic Marie BASOM % 1.0 % Normal 0.2-2.0 [facility] Comment on above: Performed By: #### C BCMAN #### [facility] [address] [place] [address] Dr. Nic Marie BLAST # Normal [facility] Comment on above: Performed By: #### C BCMAN #### [facility] [address] [place] [address] Dr. Nic Marie BLAST % Normal [facility] Comment on above: Performed By: #### C BCMAN #### [facility] [address] [place] [address] Dr. Nic Marie CORRECTED WBC Normal 4.0-11.0 [facility] Comment on above: Performed By: #### C BCMAN #### [facility] [address] [address] [address] Nic Marie EOS # 0.73 103/ul Critically high 0.00-0.70 [facility] Comment on above: Performed By: #### C BCSALIAN #### [facility] [address] [address] [address] Nic Marie EOS% 5.0 % Normal 0.9-7.0 [facility] Comment on above: Performed By: #### C BCSALINA #### [facility] [address] [address] [address] Nic Marie HCT 38.1 % Critically low 42.0-54.0 [facility] Comment on above: Performed By: #### C DAIMAN #### [facility] [address] [address] [address] Nic Marie HGB 10.4 g/dl Critically low 14.0-18.0 [facility] Comment on above: Performed By: #### C DAMIAN #### [facility] [address] [address] [address] Nic Marie HYPOCHROMASIA SLIGHT Normal [facility] Comment on above: Performed By: #### C BCSALINA #### [facility] [address] [address] [address] Nic Marie LYMPHM # 0.58 103/ul Critically low 1.20-3.80 [facility] Comment on above: Performed By: #### C BCSALINA #### [facility] [address] [address] [address] Nic Marie LYMPHM% 4.0 % Critically low 20.5-60.0 [facility] Comment on above: Performed By: #### C BCSALINA #### [facility] [address] [address] [address] Nic Marie MCH 19.3 pg Critically low 25.9-34.0 [facility] Comment on above: Performed By: #### C BCSALINA #### [facility] [address] [place] [address] Dr. Nic Marie MCHC 27.3 g/dl Critically low 29.9-35.2 [facility] Comment on above: Performed By: #### C DAMIAN #### [facility] [address] [place] [address] Dr. Nic Marie MCV 70.6 fL Critically low 80.0-94.0 [facility] Comment on above: Performed By: #### C DAMIAN #### [facility] [address] [place] [address] Dr. Nic Marie METAMYELOCYTE # Normal [facility] Comment on above: Performed By: #### C DAMIAN #### [facility] [address] [place] [address] Dr. Nic Marie METAMYELOCYTE % Normal [facility] Comment on above: Performed By: #### C DAMIAN #### [facility] [address] [place] [address] Dr. Nic Marie MONOM# 0.58 103/ul Normal 0.30-0.80 [facility] Comment on above: Performed By: #### C DAMIAN #### [facility] [address] [place] [address] Dr. Nic Marie MONOM% 4.0 % Normal 1.7-12.0 [facility] Comment on above: Performed By: #### C DAMIAN #### [facility] [address] [place] [address] Dr. Nic Marie MPV 9.7 fL Normal 9.5-13.5 [facility] Comment on above: Performed By: #### C DAMIAN #### [facility] [address] [place] [address] Dr. Nic Marie MYELOCYTE # Normal [facility] Comment on above: Performed By: #### C DAMIAN #### [facility] [address] [place] [address] Dr. Nic Marie MYELOCYTE % Normal [facility] Comment on above: Performed By: #### C DAMIAN #### [facility] [address] [address] [address] Nic Marie NRBC Normal [facility] Comment on above: Performed By: #### C DAMIAN #### [facility] [address] [address] [address] Nic Marie PLT 347 103/ul Normal 150-450 [facility] Comment on above: Performed By: #### C BCMAN #### [facility] [address] [address] [address] Nic Marie RBC 5.40 106/ul Normal 4.70-6.10 [facility] Comment on above: Performed By: #### C SHUMAN #### [facility] [address] [address] [address] Nic Marie RDW 22.2 % Critically high 11.0-15.0 [facility] Comment on above: Performed By: #### C DAMIAN #### [facility] [address] [address] [address] Nic Marie SEG # 12.56 103/ul Critically high 1.40-6.50 [facility] Comment on above: Performed By: #### C BCMAN #### [facility] [address] [address] [address] Nic Marie SEG % 86.0 % Critically high 43.0-75.0 [facility] Comment on above: Performed By: #### C BCMAN #### [facility] [address] [address] [address] Nic Marie WBC 14.6 103/ul Critically high 4.0-11.0 [facility] Comment on above: Performed By: #### C BCMAN #### [facility] [address] [address] [address] Nic Marie GLYCOHEMOGLOBIN A1Con 2021 ADA RECOMMENDATION ADA THERAPEUTIC TARGET 6.0 - 7.0 ACTION SUGGESTED > 7.0 [facility] Comment on above: Performed By: #### A 1C #### [facility] [address] [address] [address] Nic Marie Glucose [Mass/Vol] 171 mg/dL Normal [facility] Comment on above: Performed By: #### A 1C #### [facility] [address] [address] [address] Nic Marie HbA1c (Bld) [Mass fraction] 7.6 % Critically high <=6.0 [facility] Comment on above: Performed By: #### A 1C #### [facility] [address] [address] [address] Nic Marie LIPID PROFILEon 05-04-2021 CHOL-HDL RATIO NORM SEE BELOW Normal [facility] Comment on above: Result Comment: 3.3 - 4.4 LOW RISK 4.4 - 7.1 AVERAGE RISK 7.1 - 11.0 MODERATE RISK >11.0 HIGH RISK Performed By: #### L IPID, TSH, MG, CMP #### [facility] [address] [address] [address] Nic Marie Cholesterol [Mass/Vol] 97 mg/dL Normal <=200 [facility] Comment on above: Performed By: #### L IPID, TSH, MG, CMP #### [facility] [address] [address] [address] Nic Marie Cholesterol in HDL [Mass/Vol] 34 mg/dL Normal [facility] Comment on above: Performed By: #### L IPID, TSH, MG, CMP #### [facility] [address] [address] [address] Nic Marie Cholesterol in LDL [Mass/Vol] 49.2 mg/dL Normal [facility] Comment on above: Performed By: #### L IPID, TSH, MG, CMP #### [facility] [address] [address] [address] Nic Marie Cholesterol.total/Ch olesterol in HDL [Mass ratio] 2.9 {ratio} Normal [facility] Comment on above: Performed By: #### L IPID, TSH, MG, CMP #### [facility] [address] [address] [address] Nic Marie HDL NORMAL > or = 60 mg/dl - LOW CARDIOVASCULAR RISK <40 mg/dl - HIGH CARDIOVASCULAR RISK Normal [facility] Comment on above: Performed By: #### L IPID, TSH, MG, CMP #### [facility] [address] [address] [address] Nic Marie LDL CALC NORMAL SEE BELOW Normal [facility] Comment on above: Result Comment: <100 mg/dl OPTIMAL 100 - 129 mg/dl NEAR OR ABOVE OPTIMAL 130 - 159 mg/dl BORDERLINE HIGH 160 - 189 mg/dl HIGH >190 mg/dl VERY HIGH Performed By: #### L IPID, TSH, MG, CMP #### [facility] [address] [address] [address] Nic Marie Triglyceride [Mass/Vol] 69 mg/dL Normal <=150 [facility] Comment on above: Performed By: #### L IPID, TSH, MG, CMP #### [facility] [address] [address] [address] Nic Marie VLDL CALC 13.8 mg/dL Normal [facility] Comment on above: Performed By: #### L IPID, TSH, MG, CMP #### [facility] [address] [address] [address] Nic Marie MAGNESIUMon 05-04-2021 Magnesium [Mass/Vol] 1.6 mg/dL Normal 1.6-2.3 [facility] Comment on above: Performed By: #### L IPID, TSH, MG, CMP #### [facility] [address] [address] [address] Nic Marie PROF 14(COMP METB)on 022 Albumin [Mass/Vol] 3.8 g/dL Normal 3.5-5.0 [facility] Comment on above: Performed By: #### L IPID, TSH, MG, CMP #### [facility] [address] [address] [address] Nic Marie Albumin/Globulin [Mass ratio] 1.0 {ratio} Normal [facility] Comment on above: Performed By: #### L IPID, TSH, MG, CMP #### [facility] [address] [address] [address] Nic Marie ALP [Catalytic activity/Vol] 69 U/L Normal 38-126 [facility] Comment on above: Performed By: #### L IPID, TSH, MG, CMP #### [facility] [address] [place] [address] Dr. Nic Marie ALT [Catalytic activity/Vol] 26 U/L Normal 21-72 [facility] Comment on above: Performed By: #### L IPID, TSH, MG, CMP #### [facility] [address] [place] [address] Dr. Nic Marie Anion gap [Moles/Vol] 8.5 mmol/L Normal [facility] Comment on above: Performed By: #### L IPID, TSH, MG, CMP #### [facility] [address] [place] [address] Dr. Nic Marie AST [Catalytic activity/Vol] 16 U/L Critically low 17-59 [facility] Comment on above: Performed By: #### L IPID, TSH, MG, CMP #### [facility] [address] [place] [address] Dr. Nic Marie Bilirubin [Mass/Vol] 0.7 mg/dL Normal 0.2-1.3 [facility] Comment on above: Performed By: #### L IPID, TSH, MG, CMP #### [facility] [address] [place] [address] Dr. Nic Marie Calcium [Mass/Vol] 9.4 mg/dL Normal 8.4-10.[address] [facility] Comment on above: Performed By: #### L IPID, TSH, MG, CMP #### [facility] [address] [place] [address] Dr. Nic Marie Chloride [Moles/Vol] 104 mmol/L Normal 98-107 [facility] Comment on above: Performed By: #### L IPID, TSH, MG, CMP #### [facility] [address] [place] [address] Dr. Nic Marie CO2 [Moles/Vol] 30.9 mmol/L Critically high 22.0-30.0 [facility] Comment on above: Performed By: #### L IPID, TSH, MG, CMP #### [facility] [address] [address] [address] Nic Marie Creatinine [Mass/Vol] 1.03 mg/dL Normal 0.66-1.25 [facility] Comment on above: Performed By: #### L IPID, TSH, MG, CMP #### [facility] [address] [address] [address] Nic Marie EGFR-AF RUSSIAN >60 Normal >=60 [facility] Comment on above: Performed By: #### L IPID, TSH, MG, CMP #### [facility] [address] [place] [address] Dr. Nic Marie EGFR-NON AF RUSSIAN >60 Normal >=60 [facility] Comment on above: Performed By: #### L IPID, TSH, MG, CMP #### [facility] [address] [place] [address] Dr. Nic Marie Globulin (S) [Mass/Vol] 3.7 g/dL Normal [facility] Comment on above: Performed By: #### L IPID, TSH, MG, CMP #### [facility] [address] [place] [address] Dr. Nic Marie Glucose [Mass/Vol] 121 mg/dL Critically high 74-106 T [facility] Comment on above: Performed By: #### L IPID, TSH, MG, CMP #### [facility] [address] [place] [address] Dr. Nic Marie Potassium [Moles/Vol] 4.4 mmol/L Normal 3.4-5.0 [facility] Comment on above: Performed By: #### L IPID, TSH, MG, CMP #### [facility] [address] [place] [address] Dr. Nic Marie Protein [Mass/Vol] 7.5 g/dL Normal 6.1-8.2 [facility] Comment on above: Performed By: #### L IPID, TSH, MG, CMP #### [facility] [address] [place] [address] Dr. Nic Marie Sodium [Moles/Vol] 139 mmol/L Normal 137-145 [facility] Comment on above: Performed By: #### L IPID, TSH, MG, CMP #### [facility] [address] [address] [address] Nic Marie Urea nitrogen [Mass/Vol] 21.0 mg/dL Critically high 9.0-20.0 [facility] Comment on above: Performed By: #### L IPID, TSH, MG, CMP #### [facility] [address] [address] [address] Nic Marie Urea nitrogen/Creatinine [Mass ratio] 20.4 mg/mg Normal [facility] Comment on above: Performed By: #### L IPID, TSH, MG, CMP #### [facility] [address] [place] [address] Dr. Nic Marie TSHon 05-04-2021 TSH 1.553 uIU/mL Normal 0.470-4.680 [facility] Comment on above: Performed By: #### L IPID, TSH, MG, CMP #### [facility] [address] [address] [address] Nic Marie TSH RANGE SEE BELOW Normal [facility] Comment on above: Result Comment: <0.3 4 UIU/ml HYPERTHYROID 0.34-5.60 UIU/ml EUTHYROID >5.60 UIU/ml HYPOTHYROID Performed By: #### L IPID, TSH, MG, CMP #### [facility] [address] [address] [address] Nic Marie Cardiovascular Lab Reporton 08-03-2020 Cardiovascular Lab Report [facility] Patient Name: [facility] Khadar Smart MR #: [id number] Department of Physician: Alexa Campbell M.D. Division of Service Date: 08/03/2020 Cardiology Birthdate: 1940 Adult Cardiovascular Room #: [place] [address] Cardiovascular Laboratory Report FINAL IMPRESSIONS: 1. Severe [...] right internal jugular vein was obtained. A 6-German x 11 cm sheath was inserted without [...] to access the left radial artery. A 6-German glide sheath was inserted without difficulty. Bilateral selective coronary angiography was performed using JR4 and JL4 catheters. After reviewing the images, it was elected to proceed with an interventional procedure. A 6-German JR4 guide catheter was advanced over J-wire [...] stenosis. (more content not included)... Normal [facility] Vital Signs Date Time Vital Sign Value Performing Clinician Janes gautam 10-19-2023 10:55-0400 Blood Pressure Location Yousuf MARTIN [facility] 10-19-2023 10:55-0400 Diastolic blood pressure 70 mm[Hg] Yousuf MARTIN [facility] 10-19-2023 10:55-0400 Heart rate 16 /min Yousufwander MARTIN [facility] 10-19-2023 10:55-0400 Respiratory rate 16 /min Yousuf MARTIN [facility] 10-19-2023 10:55-0400 Systolic blood pressure 130 mm[Hg] Yousuf MARTIN [facility] 10-13-2022 09:35-0400 Blood Pressure Location Yousufwander MARTIN [facility] 10-13-2022 09:35-0400 Diastolic blood pressure 78 mm[Hg] Yousuf MARTIN [facility] 10-13-2022 09:35-0400 Heart rate 69 /min Yousuf MARTIN [facility] 10-13-2022 09:35-0400 Respiratory rate 16 /min Yousuf MARTIN [facility] 10-13-2022 09:35-0400 Systolic blood pressure 132 mm[Hg] Yousufwander MARTIN [facility] Encounters Encounter Date Encounter Type Care Provider Facility Start: 10-20-2024 ambulatory Yousuf MARTIN Facili ty:[facility] [place] Start: 02-08-2024 End: 02-08-2024 ambulatory [facility] Start: 11-27-2023 End: 11-27-2023 Dinorah Engle DO Work Phone: [facility] Start: 11-27-2023 End: 11-27-2023 Dinorah flowsshala Engle DO Work Phone: [facility] Start: 11-27-2023 End: 11-27-2023 ambulatory KELY REEDER Not Available Start: 10-19-2023 End: 10-19-2023 ambulatory Yousuf MARTIN Facility:[facility] Start: 10-19-2023 End: 10-19-2023 Patient encounter procedure Yousuf MARTIN [facility] Start: 09-25-2023 End: 09-25-2023 ambulatory [facility] Start: 08-24-2023 End: 08-24-2023 ambulatory KELYMEHRAN REEDER Not Available Start: 06-29-2023 End: 06-29-2023 ambulatory KELY D NORMAHLER Not Available Start: 05-11-2023 End: 05-11-2023 ambulatory KELY D NORMAHLER Not Available Start: 03-29-2023 End: 03-29-2023 ambulatory [facility] Start: 02-23-2023 End: 02-23-2023 ambulatory KELY D NORMAHLER Not Available Start: 10-17-2022 End: 10-17-2022 Patient encounter procedure Yousuf MARTIN [facility] Start: 10-13-2022 End: 10-13-2022 Patient encounter procedure Yousuf MARTIN [facility] Start: 04-20-2022 End: 04-21-2022 ambulatory BABAK العلي Facility:[facility] Start: 10-25-2021 End: 10-26-[address] RAMYA FLANAGAN Facility:[facility] Start: 05-04-2021 End: 05-05-2021 ambulatory BABAK العلي Facility:[facility] Start: 08-03-2020 End: 08-04-2020 ambulatory RAMYA FLANAGAN Facility:[facility] Procedures Date Procedure Procedure Detail Performing Clinician Start: 11-27-2023 End: 11-27-2023 Visual field xm uni/bi w/interp extended exam Kely Engle DO Work Phone: Start: 11-27-2023 End: 11-27-2023 Ophth medical xm&eval comprhnsv estab pt 1/> Primary open angle glaucoma (POAG) of both eyes, mild stage (CMS/HCC) Kely Engle DO Work Phone: Comment on above: 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, mild stage (CMS/HCC) (Primary Dx); Exudative age-related macular degeneration of right eye with active choroidal neovascularization (HCC) (CMS/HCC); Age-related nuclear cataract of both eyes; 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 Nic Marie Start: 08-03-2020 Placement of stent i n cardiac conduit Yousuf MARTIN carotid endarderectomy Frandy MARTIN History of hernia repair Tonia MARTIN Operative procedure on coronary artery Yousuf MARTIN Plan of Treatment Date Care Activity Detail Author Start: 11-27-2023 End: 11-27-2023 Patient encounter procedure 11/27/2023 10:30 AM EDT Office Visit [facility] [address] [place] [address] Kely Engle DO [address] [place] [address] Arrived [facility] Comment on above: Arrived Start: 11-04-2023 Influenza vaccination Influenza Vacc ine (#1) [facility] Start: 12-20-2017 Pneumococcal Vaccine : 65+ Years (2 of 2 - PPSV23 or PCV20) Pneumococcal Vaccine: 65+ Years (2 of 2 - PPSV23 or PCV20) [facility] Immunizations Immunization Date Immunization Notes Care Provider Fa kathleen 11-23-2021 SARS-CoV-2 (COVID-19 ) [id number] Yousuf MARTIN [facility] 12-30-2020 SARS-CoV-2 (COVID-19 ) mRNA BNT-162b2 vax Yousuf MARTIN [facility] Comment on above: Result Comment: 2023: [id number] 05-13-2020 SARS-CoV-2 (COVID-19 ) mRNA-1273 vaccine Yousuf MARTIN [facility] Comment on above: Result Comment: 2023: [id number] 04-15-2020 SARS-CoV-2 (COVID-19 ) mRNA-1273 vaccine Yousuf MARTIN [facility] 03-05-2020 SARS-CoV-2 (COVID-19 ) mRNA-1273 vaccine Yousuf MARTIN [facility] Comment on above: Result Comment: pt h as had 3 shots to date but does not know the dates 12-20-2016 pneumococcal conjuga te vaccine, 13 valent Yousuf MARTIN [facility] NEGATED: Highlighted row has not occurred!04-23-2020 influenza virus vaccine, unspecified formulation Yousuf MARTIN [facility] Payers Date Payer Category Payer Medicare AETNA MEDICARE A DVANTAGE AETNA MEDICARE REPLACEMENT [id number] 2021-Present [address] [place] [address] [id number] 1957 Medicare [id number] 1940 Unknown [id number]. 647 1940 Unknown [id number] 2.16.840.1.791233.3.579.2. 593 1940 Unknown [id number] 2.16.840.1.810017.3.579.2. 593 1940 Unknown [id number] 2.16.840.1.073124.3.579.2. 593 1940 Unknown [id number] 2.16.840.1.886056.3.579.2. 593 1940 Unknown [id number] 2.16.840.1.303910.3.579.2. 727 1940 Unknown [id number] 2.16.840.1.236992.3.579.2. 727 1940 Unknown [id number] 2.16.840.1.300457.3.579.2. 1259 1940 Unknown [id number] 2.16.840.1.357695.3.579.2. 1259 1940 Unknown [id number] 2.16.840.1.025297.3.579.2. 1259 1940 Unknown [id number] 2.16.840.1.399690.3.579.2. 1259 1940 Unknown [id number] 2.16.840.1.386470.3.579.2. 1259 Private Health Insurance [id number] Social History Date Type Detail Facility Start: 04-25-2019 End: 10-19-2023 Tobacco smoking status Ex-smoker (finding) [facility] Start: 09-27-2022 Sex Assigned At Male [facility] Tobacco smoking status Never [facility] Start: 09-27-2022 Tobacco smoking stat us ARIS Never smoked tobacco [facility] Start: 09-27-2022 History of Social function [facility] Start: 1940 Sex assigned at Not on file [facility] Functional Status Date Assessment Result Facility 10-19-2023 Functional Status N/A [facility] 10-13-2022 Functional Status N/A [facility] Clinical Notes 04-13-2020 to 02-22-2024 Kely Engle, DO - 11/27/2023 10:30 AM EDT Note Date & Type Note Facility 02-22-2024 Note Today I reviewed pat ient 3-day event monitor and he is in persistent atrial fibrillation, his heart rate still go up to 140s at time but he had many pauses with the longest 8 seconds. The patient was called and he did not have any symptoms of dizziness or lightheadedness or syncope or near syncope. He was advised to reduce his Coreg back to 12.5 [address] I contacted Dr. Perez and the patient will be seen soon to be evaluated for permanent pacemaker. We also put him on the schedule to see Dr. Perez next time he is in [place] office 03/18/2024. The patient was advised to come to the emergency room immediately if he has any dizziness. [facility] 02-08-2024 Note [place] [facility] - [facility] Subjective Khadar Ramos is a 83 y.o. year old male patient being seen for Hospital Follow-up (He was admitted to [facility] last month for CHF. Say he's feeling much better s/p discharge. ), Coronary Artery Disease , Congestive Heart Failure , Atrial Fibrillation, Hypertension, and Hyperlipidemia Patient Active Problem List Diagnosis Atrial fibrillation [...] hydrocele Age-related nuclear cataract of both eyes HPI Patient has history of coronary artery disease, atrial fibrillation, congestive heart failure, hypertension and hyperlipidemia. He was recently in the hospital with acute on chronic congestive heart failure on 01/15/2024 and he was diuresed. He was seen at that time by Dr. Perez. The patient is here today for follow-up visit. He states that he has been doing very well. He states that he is back to his baseline and denies any chest pain or shortness of breath at rest or with exertion. Denies orthopnea or paroxysmal nocturnal dyspnea. He wears oxygen at night at 1 L/min. He denies any dizziness or palpitation. He has chronic legs edema which she states that it has been stable since discharge from the hospital. He states that he tries to follow low-salt diet. He does not weigh himself ROS All systems were reviewed and they were negative except for the positive findings noted above in the history Past Medical History: Diagnosis Date Atrial fibrillation (CMS/HCC) CHF (congestive heart failure) (CMS/HCC) Coronary artery disease Diabetes mellitus (CMS/HCC) Hyperkalemia Hyperlipidemia Hypertension Past Surgical History: Procedure Laterality Date CARDIAC CATHETERIZATION CAROTID ENDARTERECTOMY HERNIA REPAIR Family History Problem Relation Name Age of Onset Other (cardiac arrest) Father Coronary artery disease Brother Other (CABG) Brother Social History Tobacco Use Smoking status: Former Types: Cigarettes Smokeless tobacco: Never Substance Use Topics Alcohol use: Not Currently Allergies No Known Allergies Medications Current Outpatient Medications: amLODIPine-benazepriL (Lotrel) 10-20 [...] Xarelto 20 mg tablet, Disp: , Rfl: Objective Visit Vitals BP 128/76 (BP Location: Right arm, Patient Position: Sitting) Pulse 81 Ht 1.702 m (5' 7 ) Wt 71.7 kg (158 lb) SpO2 94% BMI 24.75 kg/m??? Smoking Status Former BSA 1.84 m??? Physical exam: GENERAL: alert and oriented x3, well developed, in no acute distress. HEAD: atraumatic, normocephalic. EYES: ZACHERY, EOMI. NECK: trachea midline, no JVD present, no carotid bruits present. CARDIAC: Irregular irregularity, S1, S2 present. . No murmur, rubs, or gallops. RESPIRATORY: CTAB, no increased effort of breathing, no rales, rhonchi, or wheezing. ABDOMEN: soft, nontender, nondistended. EXTREMITIES: Bilateral +1 to +2 edema. NEURO: strength/sensation equal and symmetric in bilateral upper and lower extremities. PSYCH: appropriate mood, affect, and judgement. Recent Labs 01/16/2024 White blood count is 18.6, hemoglobin 17.1, hematocrit 54.6, platelets 211 INR 1.38 Sodium 151, potassium 3.1, BUN 53, creatinine 1.39, GFR 59, glucose 105, calcium 10.2, magnesium 2 Total bilirubin 1.2, AST 15, ALT 35, alk phos 54, total protein 6.9, albumin 3.5 BMP 2700 TSH 2.3, free T48.8, of free T31.9 06/27/2023 Cholesterol 113, triglycerides 62, HDL 42, LDL 56.6 Imaging and other tests (more content not included)... [facility] 11-27-2023 Note Right Eye Reliability was good. Progression has been stable. Foveal threshold was normal. Findings include normal observations. Left Eye Reliability was good. Progression has been stable. Foveal threshold was normal. Findings include central scotoma. [facility] 11-27-2023 Note Right Eye Quality was good. Scan locations included subfoveal. Progression has been stable. Findings include abnormal foveal contour. Left Eye Quality was good. Scan locations included subfoveal. Progression has been stable. Findings include abnormal foveal contour, subretinal scarring. Notes Retinal pigment epithelium (RPE) changes c/w drusen Macular volume loss both eyes (OU) [facility] 11-27-2023 History of Present illness Narrative Images from the original note were not included. Assessment/Plan Diagnoses and all orders for this visit: Exudative age-related macular degeneration of right eye with active choroidal neovascularization (HCC) (CMS/HCC) - ARMD OU, dry. Importance of smoking cessation, blood pressure control, and healthy diet were emphasized. Patient was advised to consider ultraviolet-B blocking sunglasses. In accordance with the AREDS study, appropriate antioxidant and mineral supplements were prescribed. Patient was instructed to self monitor their monocular vision (reading/Amsler Grid) at least weekly. Patient should immediately report any new onset of decreased vision or metamorphopsia. - Stable without antiVEGF since 02/2023. Primary open angle glaucoma (POAG) of both eyes, mild stage (CMS/HCC) - Primary open angle glaucoma OU - Importance of taking medications as prescribed was stressed. Patient was advised to report any inability or unwillingness to take medications or if cost is a concern. Patient must report any side effects that may develop. Patient must report any change in systemic medications as they may interact or interfere with their glaucoma medications. Patient will be dilated at least on an annual basis for optic nerve evaluation and will likely have an automated visual field examination at least once a year. It was explained to the patient that they might require additional treatment for intraocular pressure control such as laser therapy or surgical intervention. - Cont Latanoprost both eyes (OU) at bedtime and Dorz/Aiden both eyes (OU) BID. Age-Related Nuclear Cataract both eyes (OU); - Cataract, OU: Observe for now without intervention. The patient was advised to contact us if any change or worsening of vision documented in this encounter [facility] 10-19-2023 Hospital Discharge instructions Patient Education 10/19/2023 [...] urethra. Follow these instructions at home: Take jdoy-cqa-gwanljn and prescription medicines only as told by [...] provider. Document Revised: 09/07/2021 Document Reviewed: 09/07/2021 [facility] Patient Education 2022 [employer]. Follow Up Care 12/11/2022 11:11:41 With:ALFIE WISE, Yousuf Barroso, URL Address: [address] [place], [place] [id number]- When: Unknown [facility] 10-19-2023 Note Patient Education Urology Benign [...] Follow these instructions at home: ? Take vhaj-bxq-nzthiiu and prescription medicines only as told by [...] develop side effec (more content not included)... [facility] 09-25-2023 Note Patient here for [...] All other systems reviewed and are negative. [facility] 09-25-2023 Note Cardiovascular Medic ine [place] [facility] SUBJECTIVE Chief Complaint Patient presents with Coronary Artery Disease Atrial Fibrillation Khadar Ramso is a 83 y.o. male is being [...] Final QTC CALCULATION(BAZETT) 08/03/2020 428 ms Final [facility] 08/03/2020 -82 degrees Final T Wave [facility] 06 (more content not included)... [facility] 03-29-2023 Note Cardiovascular Medic ine [place] [facility] SUBJECTIVE Chief Complaint Patient presents with [...] Final QTC CALCULATION(BA[place]ETT) 08/03/2020 428 ms Final [facility] 08/03/2020 -82 degrees Final T Wave [facility] 08/03/2020 51 degrees Final Diagnosis 08/03/2020 Final [...] visit: Chronic systolic (more content not included)... [facility] 03-29-2023 Note Patient being seen [...] All other systems reviewed and are negative. [facility] 10-17-2022 Hospital Discharge instructions Patient [...] With:Yousuf MARTIN Address: [facility] [address] [place] [address]- Business (1) When: Unknown Comments:Office will call to schedule follow up [facility] 10-13-2022 Hospital Discharge instructions Patient Education 10/13/2022 [...] urethra. Follow these instructions at home: Take qmme-ijk-jdyxyhd and prescription medicines only as told by [...] provider. Document Revised: 09/07/2021 Document Reviewed: 09/07/2021 [facility] Patient Education 2022 [employer]. Follow Up Care 04/25/2021 10:27:16 With:ALFIE WISE, Yousuf Barroso, URL Address: [facility] [address] [place] [address]- When: Unknown Comments:sched Cysto. [facility] 04-13-2020 Note Patient Outreach ([place] VAMN) KHADAR RAMOS ([id number]) 1940 M Date Time Provider Department 04/13/20 [facility] During your visit today, we recorded the following information about you: Allergies As of Date: 04/13/2020 (No Known Allergies) Date Reviewed: 06/05/2018 Reviewed by: Rosalie Allen - Fully Assessed Order(s):SARS-COVID VACCINE 1ST DOSE APPT [[id number]] Order #: [id number] FUTURE Prescriptions as of 04/13/2020 Sig: SIMVASTATIN [...] Encounter Status:Closed by NIVIA ESPITIA on 04/16/20 [facility] Evaluation + Plan note Future Appointments Appointment Date:10/16/2022 10:45:00 AM Scheduled Provider: Location:[facility] Appointment Type:Urology CALL PAT FT Appointment Date:10/17/2022 10:00:00 AM Scheduled Provider: Location:[facility] Appointment Type:Urology FT Diagnostic Tests PendingPSA Total 10/13/22 [facility] Evaluation + Plan note Future Appointments Appointment Date:10/20/2024 10:30:00 AM Scheduled Provider:Yousuf MARTIN MD Location:[facility] Appointment Type:URO Office Visit Diagnostic Tests PendingPSA Total 09/02/24 [facility] Evaluation note Diagnosis Primary open angle glaucoma (POAG) of both eyes, mild stage (CMS/HCC)- Primary 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) Age-related nuclear cataract of both eyes 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 DATE CREATED AUTHOR AUTHOR'S ORGANIZ ATION 10/21/2023 Enriquez Clallam [facility] DATE CREATED AUTHOR AUTHOR'S ORGANIZ ATION 11/29/2023 [facility] DATE CREATED AUTHOR AUTHOR'S ORGANIZ ATION 02/26/2024 [facility] Patient Care team informatio n (unrecognized section and content) Personnel Name: Josy Sahu MD Address: Address: [address] [place] [address] Personnel Name: Josy Sahu MD Address: Address: [address] [place] [address] Personnel Name: Josy Sahu MD Address: Address: [address] [place] [address] Reason for Visit (unrecogniz ed section and content) Reason Comments Eye Exam Glaucoma Macular Degeneration Cataract FOR RECORDS PERTAINING TO PATIENTS WHO ARE [...] BE BASED ON THE PRIMARY CLINICAL RECORDS. [employer] provides no warranty or guarantee of the accuracy or completeness of information in this document.
[2024-02-29 12:21] LABS: Alanine Aminotransferase 22 U/L (16-63); Albumin Globulin Ratio 1.1; Albumin Level 3.3 g/dL (3.4-5.0); Alkaline Phosphatase 56 U/L (46-116); Aspartate Amino Transferase 16 U/L (15-37); BUN Creatinine Ratio 12.4; Calcium 9.1 mg/dL (8.5-10.1); Chloride 102 mmol/L (98-107); Estimated GFR (African America >60 (>=60 mL/min/1.73m^2); Estimated GFR (Non-African Ame >60 (>=60 mL/min/1.73m^2); Globulin 2.9 g/dL; Glucose 245 mg/dL (74-106); Sodium 139 mmol/L (136-145); Total Protein 6.2 g/dL (6.4-8.2)
[2024-03-01 04:07] LABS: CA 19-9 70 U/mL (0-35); PSA, Free <0.02 ng/mL; Prostate Specific Ag <0.1 ng/mL (0.0-4.0)
== END 2024-02-29 10:22 | disposition home or self-care (01) ==
LOC: LAB 10:22
PROVIDERS: PCP Family Medicine; Visit Provider Family Medicine
DX: E11.51 Type 2 diabetes mellitus with diabetic peripheral angiopathy without gangrene (principal); R22.2 Localized swelling, mass and lump, trunk; I10 Essential (primary) hypertension; R97.1 Elevated cancer antigen 125 [CA 125]; C61 Malignant neoplasm of prostate; C44.311 Basal cell carcinoma of skin of nose
CPT/HCPCS: 36415; 80053; 84153; 84154; 86301

== ENCOUNTER 2024-03-04 10:36 | Outpatient (OUT) | payer MEDICARE, SELFPAY ==
--- NOTE | 2024-03-04 10:44 | XR_ITS ---
The [address] [address] Patient Name: KHADAR RAMOS MRN: [id number] date: 1940 Sex: M Assigned Patient Location: [facility] Current Patient Location: Accession/Order Number: [id number] Exam Date: 03/04/2024 10:45 Report Date: 03/05/2024 04:58 At the request of: TEE RIVAS Procedure: XR chest 2V EXAMINATION: XR chest 2V HISTORY: Chronic Atrial Fibrillation ; cardiac pacemaker placement one day prior COMPARISON: XR chest 01/13/2024 FINDINGS: LUNGS: Mild opacities and stranding throughout the lungs. VASCULATURE: No increased pulmonary vasculature. PLEURA: No pneumothorax, effusion, or pleural thickening. CARDIAC: Heart size bordering on cardiomegaly. Cardiac pacer/AICD. MEDIASTINUM: Hiatal hernia. No abnormal widening of the upper mediastinum. BONES: No fracture or visible bone lesion. OTHER: Negative. XR/XR chest 2V IMPRESSION: 1. Interval cardiac pacer/AICD placement. 2. Mild diffuse atelectasis versus infiltrates within the lungs. Electronically authenticated by: SHANITA MORRIS Date: 03/05/2024 04:58
== END 2024-03-04 10:37 | disposition home or self-care (01) ==
LOC: RAD 10:38
PROVIDERS: PCP Family Medicine; Visit Provider Internal Medicine Cardiovascular Disease
DX: I48.20 Chronic atrial fibrillation, unspecified (principal); Z95.0 Presence of cardiac pacemaker
CPT/HCPCS: 71046

== ENCOUNTER 2024-03-25 07:34 | Outpatient (RCR) | payer MEDICARE, SELFPAY | END 2024-04-04 23:59 | disposition home or self-care (01) | LOC: HEMC 07:34 | PROVIDERS: PCP Family Medicine; Visit Provider Internal Medicine Hematology & Oncology | DX: R92.8 Other abnormal and inconclusive findings on diagnostic imaging of breast (principal); R59.0 Localized enlarged lymph nodes; J44.9 Chronic obstructive pulmonary disease, unspecified; I50.9 Heart failure, unspecified; Z95.0 Presence of cardiac pacemaker; R09.02 Hypoxemia; Z99.81 Dependence on supplemental oxygen | CPT/HCPCS: G0463 ==

== ENCOUNTER 2024-03-31 09:54 | Inpatient (IN) | payer MEDICARE, SELFPAY ==
[2024-03-31] VITALS (39 sets, daily range): BP systolic 94–155; BP diastolic 66–98; PULSE 70–111; TEMP 36.2–36.8; O2SAT 66–97; BMI 26.6; BMI 26.4
--- NOTE | 2024-03-31 10:33 | XR_ITS ---
The [address] [address] Patient Name: KHADAR RAMOS MRN: [id number] date: 1940 Sex: M Assigned Patient Location: ER Current Patient Location: ER Accession/Order Number: [id number] Exam Date: 03/31/2024 10:28 Report Date: 03/31/2024 11:06 At the request of: ILANA CALLEJAS Procedure: XR chest 1V EXAMINATION: XR chest 1V HISTORY: SOB COMPARISON: XR chest 03/04/2024 FINDINGS: LUNGS: Mild opacities within right lung base partially obscuring the diaphragm margin. Trace amount within left lateral costophrenic angle. VASCULATURE: No increased pulmonary vasculature. PLEURA: Suspect right pleural effusion. No pneumothorax. CARDIAC: Cardiomegaly. Stable cardiac pacer/AICD. MEDIASTINUM: No visible mass or adenopathy. BONES: No fracture or visible bone lesion. OTHER: Negative. XR/XR chest 1V IMPRESSION: 1. New mild right basilar infiltrates and likely small pleural effusion. 2. Trace amount of lingular infiltrates versus atelectasis. 3. Grossly stable cardiomegaly. Electronically authenticated by: SHANITA MORRIS Date: 03/31/2024 11:06
--- NOTE | 2024-03-31 10:38 | ECG_ITS ---
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
--- NOTE | 2024-03-31 10:40 | ED.GENADUL1 ---
HPI HPI - General Adult General Chief complaint: Shortness of Breath/Dyspnea Stated complaint: LOW OXYGEN Time Seen by Provider: 03/31/24 10:29 Source: patient Mode of arrival: walk-in Limitations: no limitations History of Present Illness HPI narrative: 84-year-old male presents for shortness of breath. He states that he is on oxygen at home and while he was on oxygen his O2 sat was reading 77%. He feels better now. He does not complain of chest pain or fever and has not had a cough. He reports that he has probable lung cancer and they found a spot on the CAT scan and he is yet to have the biopsy. This was originally found in January. Related Data Home Medications ?Medication ?Instructions ?Recorded ?Confirmed atorvastatin 80 mg tablet 80 mg PO DAILY 09/23/22 03/31/24 carvedilol 12.5 mg tablet 12.5 mg PO Q12H 09/23/22 03/31/24 ferrous sulfate 325 mg (65 mg 325 mg PO DAILY 09/23/22 03/31/24 iron) tablet furosemide 20 mg tablet 20 mg PO BID 09/23/22 03/31/24 metformin 500 mg tablet 500 mg PO BID 09/23/22 03/31/24 pantoprazole 40 mg tablet,delayed 40 mg PO DAILY 09/23/22 03/31/24 release rivaroxaban 20 mg tablet (Xarelto) 20 mg PO DAILY 09/23/22 03/31/24 dorzolamide 22.3 mg-timolol 6.8 1 drp ophthalmic (eye) BID 01/10/24 03/31/24 mg/mL eye drops empagliflozin 10 mg tablet 10 mg PO DAILY 01/10/24 03/31/24 (Jardiance) latanoprost 0.005 % eye drops 1 drp ophthalmic (eye) .qhs 01/10/24 03/31/24 multivitamin (Daily Multi-Vitamin 1 tab PO DAILY 01/10/24 03/31/24 tablet) omega 0-txw-qfm-fish oil 300 1 cap PO DAILY 01/10/24 03/31/24 mg-1,000 mg capsule (Fish Oil) amlodipine 10 mg-benazepril 20 mg 1 cap PO DAILY 03/31/24 03/31/24 capsule benazepril 20 mg tablet 20 mg PO DAILY 03/31/24 03/31/24 glimepiride 2 mg tablet 2 mg PO DAILY 03/31/24 03/31/24 Previous Rx's ?Medication ?Instructions ?Recorded albuterol sulfate 90 mcg/actuation 2 inh inhalation Q6H PRN shortness 01/16/24 aerosol inhaler (Ventolin HFA) of breath or wheezing #8.5 grams Allergies Allergy/AdvReac Type Severity Reaction Status Date / Time No Known Drug Allergies Allergy Verified 09/23/22 06:49 Opioid HPI Opioid Management Most Recent Opioid Data: Last ORT Total Score 0 01/10/24 13:26 01/10/24 Last ORT Risk Category Low Risk 01/10/24 13:26 01/10/24 Review of Systems ROS Narrative A ten point review of systems is negative except as noted above. [facility] Medical History (Updated 03/31/24 @ 11:56 by Remi Ren MD) Acute on chronic systolic (congestive) heart failure ?I50.23 - Acute on chronic systolic (congestive) heart failure (ICD-10) Hypoxia ?R09.02 - Hypoxemia (ICD-10) COPD (chronic obstructive pulmonary disease) ?J44.9 - Chronic obstructive pulmonary disease, unspecified (ICD-10) Congestive heart failure ?I50.9 - Heart failure, unspecified (ICD-10) Hematuria ?R31.9 - Hematuria, unspecified (ICD-10) Atrial fibrillation ?I48.91 - Unspecified atrial fibrillation (ICD-10) CHF (congestive heart failure) ?I50.9 - Heart failure, unspecified (ICD-10) Diabetes mellitus ?E11.9 - Type 2 diabetes mellitus without complications (ICD-10) Hypertension ?I10 - Essential (primary) hypertension (ICD-10) Prostate cancer ?C61 - Malignant neoplasm of prostate (ICD-10) Surgical History H/O hernia repair ?Z98.890 - Other specified postprocedural states (ICD-10) ?Z87.19 - Personal history of other diseases of the digestive system (ICD-10) H/O heart artery stent ?Z95.5 - Presence of coronary angioplasty implant and graft (ICD-10) Family History Father Family history of myocardial infarction Family history of CHF (congestive heart failure) Brother Family history of CHF (congestive heart failure) Family history of hypertension Sister Family history of cancer Social History Within the past year, how often did you have a drink containing alcohol: never Score interpretation: A score less than 4 is consistent with normal alcohol consumption. Smoking status: Former smoker Non-prescribed substance use: denies use Highest level of school completed/degree received: high school graduate Little interest or pleasure in doing things: not at all Feeling down, depressed, or hopeless: not at all Exam Narrative Exam Narrative: Nurses note and vital signs reviewed and patient is not hypoxic. General: The patient appears in no apparent distress. Patient is resting comfortably on cart. Skin: Warm, dry, no pallor noted. There is no rash noted. Head: Normocephalic, atraumatic Eye: Normal conjunctiva, no drainage Ears, Nose, Mouth, and Throat: oral mucosa is moist. Nares patent. Cardiovascular: Irregularly Respiratory: Bilateral rales present Back: non-tender GI: Soft and nontender Musculoskeletal: Bilateral ankle edema present which the patient reports is always there. Neurological: A&O, normal speech Psychiatric: Cooperative Constitutional Vital Signs, click to edit/add: Last Vital Signs Temp 97.8 F 03/31/24 10:11 Pulse 80 03/31/24 11:20 Resp 11 L 03/31/24 11:20 BP 138/72 03/31/24 11:00 Pulse Ox 92 L 03/31/24 11:25 O2 Del Method Nasal Cannula 03/31/24 11:25 O2 Flow Rate 6 03/31/24 11:25 Course Vital Signs Vital signs: Vital Signs Temperature 97.8 F 03/31/24 10:11 Pulse Rate 84 03/31/24 10:11 Respiratory Rate 20 03/31/24 10:11 Blood Pressure 126/73 03/31/24 10:11 Pulse Oximetry 95 03/31/24 10:11 Oxygen Delivery Method Room Air 03/31/24 10:11 Temperature 97.8 F 03/31/24 10:11 Pulse Rate 80 03/31/24 11:20 Respiratory Rate 11 L 03/31/24 11:20 Blood Pressure 138/72 03/31/24 11:00 Pulse Oximetry 92 L 03/31/24 11:25 Oxygen Delivery Method Nasal Cannula 03/31/24 11:25 Oxygen Delivery Flow Rate 6 03/31/24 11:25 Medical Decision Making MDM Narrative Medical decision making narrative: Pneumonia is identified on the x-ray. Blood cultures were obtained and he was given IV Rocephin and Zithromax and is being admitted. He has had some episodes of hypoxemia, often in the mid 80s on nasal cannula. He had an O2 sat of 77% at home. Treatment diagnosis and disposition were discussed with the patient and his . Differential Diagnosis Differential Diagnosis: COVID, influenza, pneumonia, viral illness Lab Data Lab results reviewed: Yes I reviewed the patient's lab results Labs: Lab Results 03/31/24 03/31/24 Range/Units 10:30 10:55 WBC 9.1 (4.0-11.0) 10^3/uL RBC 4.59 L (4.70-6.10) 10^6/uL Hgb 13.8 L (14.0-18.0) g/dL Hct 44.6 (42.0-54.0) % MCV 97.2 H (80.0-94.0) fL MCH 30.1 (25.9-34.0) pg MCHC 30.9 (29.9-35.2) g/dL RDW 16.3 H (11.0-15.0) % Plt Count 174 (150-450) 10^3/uL MPV 10.8 (9.5-13.5) fL Neut % (Auto) 82.6 H (43.0-75.0) % Lymph % (Auto) 4.7 L (20.5-60.0) % [place] % (Auto) 7.7 (1.7-12.0) % Eos % (Auto) 4.3 (0.9-7.0) % Baso % (Auto) 0.3 (0.2-2.0) % Neut # (Auto) 7.5 H (1.4-6.5) 10^3/uL Lymph # (Auto) 0.4 L (1.2-3.8) 10^3/uL [place] # (Auto) 0.7 (0.3-0.8) 10^3/uL Eos # (Auto) 0.4 (0.0-0.7) 10^3/uL Baso # (Auto) 0.0 (0.0-0.1) 10^3/uL Abs Immat Gran (auto) 0.04 H (0.00-0.03) 10^3/uL Imm/Tot Granulo (auto) 0.4 (0.0-0.5) % Sodium 141 (136-145) mmol/L Potassium 4.6 (3.5-5.1) mmol/L Chloride 102 (98-107) mmol/L Carbon Dioxide 35.6 H (21.0-32.0) mmol/L Anion Gap 8.0 BUN 31.0 H (7.0-18.0) mg/dL Creatinine 1.33 H (0.70-1.30) mg/dL Est GFR ( Amer) >60 (>=60 mL/min/1.73m^2) Est GFR (Non-Af Amer) 51 L (>=60 mL/min/1.73m^2) BUN/Creatinine Ratio 23.3 Glucose 191 H (74-106) mg/dL Lactate 1.9 (0.4-2.0) mmol/L Calcium 9.3 (8.5-10.1) mg/dL Troponin I High Sens 27.2 (4.0-76.1) pg/mL Influenza Type A Ag Negative Influenza Type B Ag Negative SARS-CoV-2 Ag (CV2AG) Negative (NEGATIVE) Imaging Data Chest x-ray: Radiologist's impression: ITS Impressions Chest X-Ray 03/31/24 10:33 IMPRESSION: 1. New mild right basilar infiltrates and likely small pleural effusion. 2. Trace amount of lingular infiltrates versus atelectasis. 3. Grossly stable cardiomegaly. Electronically authenticated by: SHANITA MORRIS Date: 03/31/2024 11:06 ECG Data Attestation: I personally reviewed and interpreted this ECG as follows: (EKG on my interpretation shows atrial fibrillation with a rate of 83 and no acute change.) Discharge Plan Discharge Chief Complaint: Shortness of Breath/Dyspnea Clinical Impression: Pneumonia Patient Disposition: Admitted As Inpatient Time of Disposition Decision: 11:56 Condition: Fair
[2024-03-31 10:46] LABS: Basophils Percent Auto 0.3 % (0.2-2.0); Eosinophils Absolute Auto 0.4 10^3/uL (0.0-0.7); Eosinophils Percent Auto 4.3 % (0.9-7.0); Hematocrit 44.6 % (42.0-54.0); Hemoglobin 13.8 g/dL (14.0-18.0); Immature Granulocytes Abs Auto 0.04 10^3/uL (0.00-0.03); Immature Granulocytes Pct Auto 0.4 % (0.0-0.5); Lymphocytes Absolute Auto 0.4 10^3/uL (1.2-3.8); Lymphocytes Percent Auto 4.7 % (20.5-60.0); Mean Corpuscular HGB Conc 30.9 g/dL (29.9-35.2); Mean Corpuscular Hemoglobin 30.1 pg (25.9-34.0); Mean Corpuscular Volume 97.2 fL (80.0-94.0); Mean Platelet Volume 10.8 fL (9.5-13.5); Monocytes Absolute Auto 0.7 10^3/uL (0.3-0.8); Monocytes Percent Auto 7.7 % (1.7-12.0); Neutrophils Absolute Auto 7.5 10^3/uL (1.4-6.5); Neutrophils Percent Auto 82.6 % (43.0-75.0); Platelet Count 174 10^3/uL (150-450); Red Blood Count 4.59 10^6/uL (4.70-6.10); Red Cell Distribution Width 16.3 % (11.0-15.0); White Blood Count 9.1 10^3/uL (4.0-11.0)
[2024-03-31 11:02] LABS: BUN Creatinine Ratio 23.3; Calcium 9.3 mg/dL (8.5-10.1); Carbon Dioxide 35.6 mmol/L (21.0-32.0); Chloride 102 mmol/L (98-107); Estimated GFR (African America >60 (>=60 mL/min/1.73m^2); Estimated GFR (Non-African Ame 51 (>=60 mL/min/1.73m^2); Glucose 191 mg/dL (74-106); Potassium 4.6 mmol/L (3.5-5.1); Sodium 141 mmol/L (136-145); Troponin I High Sensitivity 27.2 pg/mL (4.0-76.1)
--- NOTE | 2024-03-31 11:25 | PC.NURSE ---
Oxygen turned up to 4L d/t 88% readings / hypoxia. Will continue to monitor
[2024-03-31 11:29] LABS: Influenza Virus A Antigen Negative; Influenza Virus B Antigen Negative; Internal Control Within Normal Limits; SARS-CoV-2 Ag NEGATIVE (NEGATIVE)
[2024-03-31] MEDS: CEFTRIAXONE 1,000 MG in 0.9 % SODIUM CHLORIDE 50 ML 100 MG IV (11:37)
[2024-03-31 11:43] LABS: Lactate/Lactic Acid 1.9 mmol/L (0.4-2.0)
--- OUTSIDE RECORDS SUMMARY | 2024-03-31 12:10 | XMS_ITS | CCD ---
Author Organization [facility] Care Team Providers Care Inclusion Special Educator Name Role Phone RAMYA FLANAGAN Attending Unavailable RAMYA FLANAGAN Admitting Unavailable JOSY SAHU Referring Unavailable JOSY SAHU Primary Care Unavailable SEVERIANOADEBABAK Admitting Unavailable SEVERIANO, BABAK Consulting Unavailable SEVERIANO, BABAK Attending Unavailable HOY, DR FERRIS Primary Care Unavailable SEVERIANOADEBABAK Attending Unavailable SEVERIANO BABAK Admitting Unavailable SEVERIANOADEBABAK Consulting Unavailable NUBIA, DR FERRIS Primary Care Unavailable ELTAHAWLatha, DR BUI Admitting Unavailable NUBIA, DR FERRIS Primary Care Unavailable ELTAHAWY, DR BUI Consulting Unavailable ELTAHAWY, DR BUI Attending Unavailable ALFIE, DR KILGORE Admitting Unavailable ALFIE, DR KILGORE Consulting Unavailable ALFIE, DR KILGORE Attending Unavailable NUBIA, DR FERRIS Primary Care Unavailable Josy Sahu Primary Care Physician Yousuf MARTIN Attending Unavailable Yousuf MARTIN Attending Unavailable KELY ENGLE Attending Unavailable KEYL ENGLE Attending Unavailable KELY ENGLE Attending Unavailable KELY ENGLE Attending Unavailable KELY ENGLE Attending Unavailable Unavailable Primary Care Provider UnavailJACKY Tan Attending Unavailable CARA PEREZ Attending Unavailable AARON PEREZ Referring Unavailable AARON PEREZ Admitting Unavailable AARON PEREZ Attending Unavailable CARA PEREZ Referring Unavailable CHRIS DIXON Attending Unavailable CHRIS DIXON Attending Unavailable Medications Current Medications Medication Drug [...] Status: Ordered take 1 tablet by quyen twice daily carvedilol (Coreg) 6.25 MG tablet [...] day(s), # 2 tab(s), Refills(s) 0, Pharmacy: [facility]/pharmacy #[id number], 169, cm, 10/13/22 9:51:00 EDT, [...] obstructive pulmonary disease and bronchiectasis (2 sources) Centrilobular emphysema; Translations: [Centrilobular emphysema] Onset: 03-20-2024 Chronic Conduction disorders (2 sources) Other specified heart block; Translations: [Other specified heart block] Onset: 02-25-2024 Chronic Congestive heart failure; nonhypertensive (4 sources) Chronic systolic (congestive) heart failure; Translations: [Acute systolic (congestive) heart failure] Onset: 05-06-2021 Chronic Coronary atherosclerosis and other heart disease (3 sources) Atherosclerotic heart disease of [place] coronary artery without angina pectoris; Translations: [ASHD NENANA CA W/O ANGINA PECTORIS] Onset: 04-07-2022 Chronic Diabetes mellitus without complication (9 sources) Type 2 diabetes mellitus without complications; Translations: [Diabetes mellitus] Onset: 05-04-2021 Chronic Diabetes mellitus without complication (3 sources) Glycosuria 04-25-2019 Episodic Disorders of lipid metabolism (5 sources) Hyperlipidemia; Translations: [Pure hypercholesterolemia, unspecified] Onset: [...] organs (3 sources) Prostatitis 04-25-2019 Episodic Other diseases of kidney and ureters (2 sources) 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; Translations: [Cyst of kidney, acquired] Onset: 10-13-2022 Episodic Other diseases of kidney and ureters (3 sources) Cyst of kidney 10-13-2022 Episodic Other lower respiratory disease (2 sources) Other nonspecific abnormal finding of lung field; Translations: [Other nonspecific abnormal finding of lung field] Onset: 02-08-2024 Episodic Other lower respiratory disease (2 sources) Shortness of breath; Translations: [Shortness of breath] Onset: 03-20-2024 Episodic Other lower respiratory disease (2 sources) Other forms of dyspnea; Translations: [Other forms of dyspnea] Onset: 03-20-2024 Episodic Other male genital disorders (3 sources) Disorder of male genital organ 04-25-2019 Episodic Other screening for suspected conditions (not mental disorders or infectious disease) (3 sources) Raised prostate specific antigen 04-25-2019 Episodic Pulmonary heart disease (2 sources) Pulmonary hypertension, unspecified; Translations: [Pulmonary hypertension, unspecified] Onset: 02-08-2024 Chronic Respiratory failure; insufficiency; arrest (adult) (2 sources) Chronic respiratory failure with hypoxia; Translations: [Chronic respiratory failure with hypoxia] Onset: 03-20-2024 Chronic Retinal detachments; defects; vascular occlusion; and retinopathy (5 sources) Exudative age-related macular degeneration; Translations: [Exudative age-related macular degeneration, right eye, with active choroidal neovascularization] Onset: 09-27-2022 Resolved: 11-27-2023 11-27-2023 Chronic Unclassified (3 sources) Prostatic intraepithelial neoplasia high grade 04-25-2019 Unclassified (2 sources) Chronic atrial fibrillation, unspecified; Translations: [Chronic atrial fibrillation, unspecified] Onset: 04-07-2022 Unclassified (2 sources) Longstanding persistent atrial fibrillation; Translations: [Longstanding persistent atrial fibrillation] Onset: 04-07-2022 Results Test Name Value Interpretation Reference Range Facility 36on 03-25-2024 36 Per patient's , Dr. Perez's office is requesting cardiac clearance prior to lung biopsy. I'm assuming they'd like him to hold Xarelto but it doesn't say in Dr. Perez's office note. You saw him in clinic 2 weeks ago. Please advise. Thanks. [facility] 29on 03-20-2024 29 Addended by: CARA PEREZ on: 03/27/2024 01:27 PM Modules accepted: Orders Normal [facility] Office Visiton 03-20-2024 Follow-up visit [id number] Khadar Ramos 1940 Date Provider Department Center 03/20/2024 [id number] PEREZ DCC ONC DCC Family History Problem Relation Age of Onset Other Father Coronary artery disease Brother Other Brother Family Status - Relation Status Age at Father Brother Level of Service:45327 NM OFFICE/OUTPATIENT NEW MODERATE MDM 45 MINUTES (GC) Reason for Visit and Comments: New Patient [632] - Lung mass; abnormal PET SCAN, needs biopsy Normal [facility] 36on 03-10-2024 36 Regarding lab results from 02/25/2024: MD David Horvath MA Good lipids and BMP. Continue current medications. Recheck lipids and AST ALT in 6 months Patient has follow up today with Dr. Dixon. Normal [facility] Office Visiton 03-10-2024 Follow-up visit [id number] Khadar Ramos 1940 Date Provider Department Center 03/10/2024 [id number] DIXON [facility] Family History Problem Relation Age of Onset Other Father Coronary artery disease Brother Other Brother Family Status - Relation Status Age at Father Brother Level of Service:72902 NM OFFICE/OUTPATIENT NEW MODERATE MDM 45 MINUTES Reason for Visit and Comments: Wound Check [931240] - S/p PPM implant on 03/03/[address] Perez. Says he was not given RX for antibiotic. Normal [facility] CBCon 03-03-2024 Erythrocyte distribution width (RBC) [Ratio] 17.1 % High 11.5-15.0 [facility] Comment on above: Performed By: #### L [id number] ####[facility] ([place])[address] [place] [address] ERYTHROCYTE MEAN CORPUSCULAR HEMOGLOBIN CONCENTRATION (G/DL) BY AUTOMATED 31.8 g/dL Low 32.0-35.0 [facility] Comment on above: Performed By: #### L [id number] ####[facility] (BEAKER)[address] [place] [place] [place] [address] Hematocrit (Bld) [Volume fraction] 47.8 % Normal 39.0-55.0 [facility] Comment on above: Performed By: #### L [id number] ####[facility] (BE[facility])[address] [place] [place] [address] Hemoglobin (Bld) [Mass/Vol] 15.2 g/dL Normal 13.0-17.0 [facility] Comment on above: Performed By: #### L [id number] ####[facility] ([facility])[address] [place] [place] [address] MCH (RBC) [Entitic mass] 29.5 pg Normal 27.0-33.0 [facility] Comment on above: Performed By: #### L [id number] ####[facility] [place] [place] [place] [address] MCV (RBC) [Entitic vol] 92.6 fL Normal 82.0-98.0 [facility] Comment on above: Performed By: #### L [id number] ####[facility] [place] [place] [address] PLATELETS (10*3/UL) IN BLOOD AUTOMATED COUNT 257 10*3/uL Normal 150-400 [facility] Comment on above: Performed By: #### L [id number] ####[facility] (BEAKER)[address] [place] [place] [address] RBC (Bld) [#/Vol] 5.16 10*6/uL Normal 4.20-5.70 [facility] Comment on above: Performed By: #### L [id number] ####[facility] (BE[facility])[address] [place] [place] [address] WBC (Bld) [#/Vol] 13.41 10*3/uL High 4.00-10.60 [facility] Comment on above: Performed By: #### L [id number] ####[facility] (BEAKER)[address] [place] [address] [facility] 03-03-2024 [facility] Cardiology - [facility] HPI Khadar Ramos is a 84 y.o. year old male patient being seen for Hospital Follow-up (He was admitted to [facility] last month for CHF. Say he's feeling much better s/p discharge. ), Coronary Artery Disease , Congestive Heart Failure , Atrial Fibrillation, Hypertension, and Hyperlipidemia Patient has history of coronary artery disease, atrial fibrillation, congestive heart failure, hypertension and hyperlipidemia. He was recently in the hospital with acute on chronic congestive heart failure on 01/15/2024 and he was diuresed. He was seen at that time by me. Since then was seen by Dr Dixon in clinic and states that he is back to his baseline and denies any chest pain or shortness of breath at rest or with exertion. Denies orthopnea or paroxysmal nocturnal dyspnea. He wears oxygen at night at 1 L/min. He denies any dizziness or palpitation. He has chronic legs edema which she states that it has been stable since discharge from the hospital. He had a Holter monitor which revealed chronic AF with long pause of 8s and 7s. He has come for a PPM. Patient Active Problem List Diagnosis Atrial fibrillation [...] hydrocele Age-related nuclear cataract of both eyes 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) Lung mass Pulmonary hypertension (CMS/HCC) Nonrheumatic aortic valve stenosis Sinus pause ROS All systems were reviewed and they [...] Currently Allergies No Known Allergies Medications Current Facility-Administere d Medications: ceFAZolin (Ancef) 1,000 mg, gentamicin (Garamycin) 80 mg in sodium chloride irrigation solution 0.9 % 500 mL IRRIGATION, , irrigation, Once, Aaron Perez MD midazolam (Versed) injection, , , PRN, Aaron Perez MD, 0.5 mg at 03/03/24 1148 sodium chloride 0.9 % infusion, , , Continuous PRN, Aaron Perez MD, Last Rate: 50 mL/hr at 03/03/24 1148, 50 mL/hr at 03/03/24 1148 Objective Visit Vitals BP 153/85 Pulse 82 Resp 11 SpO2 97% Smoking Status Former Physical exam: GENERAL: alert and oriented x3, [...] 42, LDL 56.6 Imaging and other tests EK01/10/2024 showed atrial fibrillation, right bundle branch block, possible old inferior and anterior infarct Echo: 01/10/2024 Echo 03/19/2023 Stress test: Cardiac cath: 08/03/2020 Event Monitor: Cardiac MRI: CX ray: Pulmonary function test 04/05/2023 Assessment/Plan Permanent atrial fibrillation with periods of slow VR with 8s pause Will proceed with single chamber PPM Congestive heart failure, recent acute episode, it was difficult to evaluate the patient ejection fraction on recent echo but prior echoes showed normal left ventricle systolic function. On Coreg, sylvie (more content not included)... [facility] NURSNOTEon 03-03-2024 NURSNOTE RN educated pt on d/c instructions. This included: site care, limited physical activity, resume normal diet, future appointments, medications, and moderate sedation instructions. RN educated pt on when to notify physician and when to go to the hospital. RN provided pt with arm sling and educated pt on importance of not lifting arm above 90 degrees, weight bearing more than 5lbs, and driving for the next 4 weeks. RN encouraged pt to voice any questions or concerns, and answered any questions or concerns if pt verbalized. Pt was wheeled off of unit with all of belongings. [facility] NURSNOTE CHG wipes and betadine nasal swabs completed. [facility] 36on 02-25-2024 36 Patient was informed of message from Dr Perez. Patient was not pleased with having a PPM put in and will need to think about that. Catherine BRADLEY [facility] [address] Perez, patient needs PPM due to sinus pauses on Holter monitor. Order placed. Waiting for patient to call me back so I can inform him. He had lipids drawn this morning, and I was able to add on BMP. [facility] Orders Onlyon 02-25-2024 Orders Only [id number] Khadar Ramos 1940 M Date Provider Department Center 02/25/2024 DAVID CORNELL Family History Problem Relation Age of Onset Other Father Coronary artery disease Brother Other Brother Family Status - Relation Status Age at Father Brother [facility] Documentationon 02-22-2024 Documentation [id number] Khadar Ramos 1940 M Date Provider Department Center 02/22/2024 [id number] HOWARD RAE [address] Family History Problem Relation Age of Onset Other Father Coronary artery disease Brother Other Brother Family Status - Relation Status Age at Father Brother Normal [facility] Office Visiton 02-08-2024 Follow-up visit [id number] Khadar Ramos 1940 Provider Department Center 02/08/2024 [id number] HOWARD RAE [place] Family History Problem Relation Age of Onset Other Father Coronary artery disease Brother Other Brother Family Status - Relation Status Age at Father Brother Level of Service:61271 NM OFFICE/OUTPATIENT ESTABLISHED MOD [facility] 30 MIN Reason for Visit and Comments: Hospital Follow-up [832] - He was admitted to [facility] last month for CHF. Say he's feeling much better s/p discharge. Coronary Artery Disease [187] - Denies chest pain. Congestive Heart Failure [127] - Denies SOB, and LE edema resolves by morning. Using O2 at nighttime. Atrial Fibrillation [80] - Denies palpitations, lightheadedness/sync ope, and bleeding on Xarelto. Hypertension [224940] Hyperlipidemia [182] Normal [facility] Optical coherence tomography study reporton 11-27-2023 [facility] 3dimcar e [facility] Estadeboda e Radiology Study observation (narrative) [facility] Perimetry studyon 11-27-2023 [facility] Estadeboda e Radiology Study observation (narrative) [facility] Urology Office/Clinic Noteon 10-19-2023 Urology Office/Clinic Note Urology Office/Clinic Note Chief Complaint 1 year follow up HPI Staff 1 yr w/ PSA. Dx: BPH with obstruction, hx of prostate cancer *Brachytherapy 2014*, nocturia, renal cyst, gross hematuria. *No urological meds NEG FISH/cytol 10/13/22. S/p Cysto 10/17/22. TAYLA done 10/19/22 at [facility] - results given over the phone. Previous [...] hematuria (R31.0: Gross hematuria) Pt presented to [facility] ER 09/23/22 with gross hematuria. Only for [...] When Contact Information ALFIE WISE, Yousuf Barroso, [address] [address]- Additional Instructions: 1 year w/ PSA Patient [...] Oral Allergie (more content not included)... Normal [facility] Comment on above: Result Comment: Elec tronically Signed By: Yousuf MARTIN MD\.br\Date and Time Signed: 10/19/23 11:20 EDT\.br\Electronically Co-Signed By: Lianet Massey.br\Date and Time Co-Signed: 10/19/23 11:19 EDT Office Visiton 09-25-2023 Follow-up visit [id number] Khadar Ramos 1940 M Date Provider Department Center 09/25/2023 JACKY ESQUIVEL Family History Problem Relation Age of Onset Other Father Coronary artery disease Brother Other Brother Family Status - Relation Status Age at Father Brother Level of Service:97975 NM OFFICE/OUTPATIENT ESTABLISHED LOW [facility] 20 MIN Reason for Visit and Comments: Coronary Artery Disease [187] Atrial Fibrillation [80] Normal [facility] 36on 04-19-2023 36 Please let him know his PFT was abnormal showing signs of COPD. Please forward results to PCP. Please have him follow-up with PCP for further management or we can refer him to pulmonary. Thanks! Normal [facility] Telephoneon 04-19-2023 Telephone [id number] Khadar Ramos 1940 Date Provider Department Center 04/19/2023 JACKY ESQUIVEL Family History Problem Relation Age of Onset Other Father Coronary artery disease Brother Other Brother Family Status - Relation Status Age at Father Brother Normal [facility] CBC AUTO DIFFon 04-20-2022 BASO # 0.0 103/ul Normal 0.0-0.1 [facility] Comment on above: Performed By: #### C BC #### [facility] [address] [address] [address] Nic Marie Basophils/100 WBC (Bld) 0.5 % Normal 0.2-2.0 [facility] Comment on above: Performed By: #### C BC #### [facility] [address] [address] [address] Nic Marie EO # 0.7 103/ul Normal 0.0-0.7 [facility] Comment on above: Performed By: #### C BC #### [facility] [address] [place] [address] Dr. Nic Marie Eosinophils/100 WBC (Bld) 8.8 % Critically high 0.9-7.0 [facility] Comment on above: Performed By: #### C BC #### [facility] [address] [place] [address] Dr. Nic Marie Erythrocyte distribution width (RBC) [Ratio] 18.0 % Critically high 11.0-15.0 [facility] Comment on above: Performed By: #### C BC #### [facility] [address] [place] [address] Dr. Nic Marie Hematocrit (Bld) [Volume fraction] 44.3 % Normal 42.0-54.0 [facility] Comment on above: Performed By: #### C BC #### [facility] [address] [place] [address] Dr. Nic Marie Hemoglobin (Bld) [Mass/Vol] 13.6 g/dL Critically low 14.0-18.0 [facility] Comment on above: Performed By: #### C BC #### [facility] [address] [place] [address] Dr. Nic Marie IG # 0.05 10e3/ul Critically high 0.00-0.03 [facility] Comment on above: Performed By: #### C BC #### [facility] [address] [place] [address] Dr. Nic Marie IG % 0.6 % Critically high 0.0-0.5 [facility] Comment on above: Performed By: #### C BC #### [facility] [address] [place] [address] Dr. Nic Marie LYMPH # 0.8 103/ul Critically low 1.2-3.8 [facility] Comment on above: Performed By: #### C BC #### [facility] [address] [address] [address] Nic Marie Lymphocytes/100 WBC (Bld) 10.7 % Critically low 20.5-60.0 [facility] Comment on above: Performed By: #### C BC #### [facility] [address] [address] [address] Nic Marie MANUAL DIFF REQ NO Normal [facility] Comment on above: Performed By: #### C BC #### [facility] [address] [place] [address] Dr. Nic Marie MCH (RBC) [Entitic mass] 24.9 pg Critically low 25.9-34.0 [facility] Comment on above: Performed By: #### C BC #### [facility] [address] [place] [address] Dr. Nic Marie MCHC (RBC) [Mass/Vol] 30.7 g/dL Normal 29.9-35.2 [facility] Comment on above: Performed By: #### C BC #### [facility] [address] [place] [address] Dr. Nic Marie MCV (RBC) [Entitic vol] 81.0 fL Normal 80.0-94.0 [facility] Comment on above: Performed By: #### C BC #### [facility] [address] [place] [address] Dr. Nic Marie MONO # 0.9 103/ul Critically high 0.3-0.8 [facility] Comment on above: Performed By: #### C BC #### [facility] [address] [place] [address] Dr. Nic Marie Monocytes/100 WBC (Bld) 11.1 % Normal 1.7-12.0 [facility] Comment on above: Performed By: #### C BC #### [facility] [address] [place] [address] Dr. Nic Marie NEUT # 5.3 103/ul Normal 1.4-6.5 [facility] Comment on above: Performed By: #### C BC #### [facility] [address] [place] [address] Dr. Nic Marie Neutrophils/100 WBC (Bld) 68.3 % Normal 43.0-75.0 [facility] Comment on above: Performed By: #### C BC #### [facility] [address] [place] [address] Dr. Nic Marie Platelet mean volume (Bld) [Entitic vol] 10.0 fL Normal 9.5-13.5 [facility] Comment on above: Performed By: #### C BC #### [facility] [address] [place] [address] Dr. Nic Marie PLT 203 103/ul Normal 150-450 [facility] Comment on above: Performed By: #### C BC #### [facility] [address] [place] [address] Dr. Nic Marie RBC 5.47 106/ul Normal 4.70-6.10 [facility] Comment on above: Performed By: #### C BC #### [facility] [address] [place] [address] Dr. Nic Marie WBC 7.8 103/ul Normal 4.0-11.0 [facility] Comment on above: Performed By: #### C BC #### [facility] [address] [place] [address] Dr. Nic Marie LIPID PROFILEon 04-20-2022 CHOL-HDL RATIO NORM SEE BELOW Normal [facility] Comment on above: Result Comment: 3.3 - 4.4 LOW RISK 4.4 - 7.1 AVERAGE RISK 7.1 - 11.0 MODERATE RISK >11.0 HIGH RISK Performed By: #### C MP, LIPID #### [facility] [address] [place] [address] Dr. Nic Marie Cholesterol [Mass/Vol] 108 mg/dL Normal <=200 [facility] Comment on above: Performed By: #### C MP, LIPID #### [facility] [address] [place] [address] Dr. Nic Marie Cholesterol in HDL [Mass/Vol] 36 mg/dL Critically low 40-60 [facility] Comment on above: Performed By: #### C MP, LIPID #### [facility] [address] [place] [address] Dr. Nic Marie Cholesterol in LDL [Mass/Vol] 54.2 mg/dL Normal [facility] Comment on above: Performed By: #### C MP, LIPID #### [facility] [address] [place] [address] Dr. Nic Marie Cholesterol.total/Ch olesterol in HDL [Mass ratio] 3.0 {ratio} Normal [facility] Comment on above: Performed By: #### C MP, LIPID #### [facility] [address] [place] [address] Dr. Nic Marie HDL NORMAL > or = 60 mg/dl - LOW CARDIOVASCULAR RISK <40 mg/dl - HIGH CARDIOVASCULAR RISK Normal [facility] Comment on above: Performed By: #### C MP, LIPID #### [facility] [address] [place] [address] Dr. Nic Marie LDL CALC NORMAL SEE BELOW Normal [facility] Comment on above: Result Comment: <100 mg/dl OPTIMAL 100 - 129 mg/dl NEAR OR ABOVE OPTIMAL 130 - 159 mg/dl BORDERLINE HIGH 160 - 189 mg/dl HIGH >190 mg/dl VERY HIGH Performed By: #### C MP, LIPID #### [facility] [address] [place] [address] Dr. Nic Marie Triglyceride [Mass/Vol] 89 mg/dL Normal <=150 [facility] Comment on above: Performed By: #### C MP, LIPID #### [facility] [address] [place] [address] Dr. Nic Marie VLDL CALC 17.8 mg/dL Normal [facility] Comment on above: Performed By: #### C MP, LIPID #### [facility] [address] [place] [address] Dr. Nic Marie PROF 14(COMP METB)on 023 Albumin [Mass/Vol] 3.7 g/dL Normal 3.4-5.0 [facility] Comment on above: Performed By: #### C MP, LIPID #### [facility] [address] [place] [address] Dr. Nic Marie Albumin/Globulin [Mass ratio] 1.0 {ratio} Normal [facility] Comment on above: Performed By: #### C MP, LIPID #### [facility] [address] [place] [address] Dr. Nic Marie ALP [Catalytic activity/Vol] 59 U/L Normal 46-116 [facility] Comment on above: Performed By: #### C MP, LIPID #### [facility] [address] [place] [address] Dr. Nic Marie ALT [Catalytic activity/Vol] 28 U/L Normal 16-63 [facility] Comment on above: Performed By: #### C MP, LIPID #### [facility] [address] [place] [address] Dr. Nic Marie Anion gap [Moles/Vol] 12.1 mmol/L Normal [facility] Comment on above: Performed By: #### C MP, LIPID #### [facility] [address] [place] [address] Dr. Nic Marie AST [Catalytic activity/Vol] 18 U/L Normal 15-37 [facility] Comment on above: Performed By: #### C MP, LIPID #### [facility] [address] [place] [address] Dr. Nic Marie Bilirubin [Mass/Vol] 0.6 mg/dL Normal 0.2-1.0 [facility] Comment on above: Performed By: #### C MP, LIPID #### [facility] [address] [place] [address] Dr. Nic Marie Calcium [Mass/Vol] 9.6 mg/dL Normal 8.5-10.1 [facility] Comment on above: Performed By: #### C MP, LIPID #### [facility] [address] [place] [address] Dr. Nic Marie Chloride [Moles/Vol] 104 mmol/L Normal 98-107 [facility] Comment on above: Performed By: #### C MP, LIPID #### [facility] [address] [place] [address] Dr. Nic Marie CO2 [Moles/Vol] 30.3 mmol/L Normal 21.0-32.0 [facility] Comment on above: Performed By: #### C MP, LIPID #### [facility] [address] [place] [address] Dr. Nic Marie Creatinine [Mass/Vol] 0.99 mg/dL Normal 0.70-1.30 [facility] Comment on above: Performed By: #### C MP, LIPID #### [facility] [address] [place] [address] Dr. Nic Marie EGFR-AF YEMENI >60 Normal >=60 [facility] Comment on above: Performed By: #### C MP, LIPID #### [facility] [address] [place] [address] Dr. Nic Marie EGFR-NON AF YEMENI >60 Normal >=60 [facility] Comment on above: Performed By: #### C MP, LIPID #### [facility] [address] [place] [address] Dr. Nic Marie Globulin (S) [Mass/Vol] 3.6 g/dL Normal [facility] Comment on above: Performed By: #### C MP, LIPID #### [facility] [address] [place] [address] Dr. Nic Marie Glucose [Mass/Vol] 114 mg/dL Critically high 74-106 [facility] Comment on above: Performed By: #### C MP, LIPID #### [facility] [address] [place] [address] Dr. Nic Marie Potassium [Moles/Vol] 4.4 mmol/L Normal 3.5-5.1 [facility] Comment on above: Performed By: #### C MP, LIPID #### [facility] [address] [place] [address] Dr. Nic Marie Protein [Mass/Vol] 7.3 g/dL Normal 6.4-8.2 [facility] Comment on above: Performed By: #### C MP, LIPID #### [facility] [address] [place] [address] Dr. Nic Marie Sodium [Moles/Vol] 142 mmol/L Normal 136-145 [facility] Comment on above: Performed By: #### C MP, LIPID #### [facility] [address] [place] [address] Dr. Nic Marie Urea nitrogen [Mass/Vol] 23.0 mg/dL Critically high 7.0-18.0 [facility] Comment on above: Performed By: #### C MP, LIPID #### [facility] [address] [address] [address] Nic Marie Urea nitrogen/Creatinine [Mass ratio] 23.2 mg/mg Normal [facility] Comment on above: Performed By: #### C MP, LIPID #### [facility] [address] [place] [address] Dr. Nic Marie PROF CHEM 8 (BAS METB)on Anion gap [Moles/Vol] 13.0 mmol/L Normal [facility] Comment on above: Performed By: #### P SAD #### [facility] [address] [place] [address] Dr. Nic Marie Calcium [Mass/Vol] 9.0 mg/dL Normal 8.5-10.1 [facility] Comment on above: Performed By: #### P SAD #### [facility] [address] [place] [address] Dr. Nic Marie Chloride [Moles/Vol] 100 mmol/L Normal 98-107 [facility] Comment on above: Performed By: #### P SAD #### [facility] [address] [place] [address] Dr. Nic Marie CO2 [Moles/Vol] 27.2 mmol/L Normal 21.0-32.0 [facility] Comment on above: Performed By: #### P SAD #### [facility] [address] [place] [address] Dr. Nic Marie Creatinine [Mass/Vol] 1.18 mg/dL Normal 0.70-1.30 [facility] Comment on above: Performed By: #### P SAD #### [facility] [address] [place], [place] [address] Dr. Nic Marie EGFR-AF YEMENI >60 Normal >=60 [facility] Comment on above: Performed By: #### P SAD #### [facility] [address] [place] [address] Dr. Nic Marie EGFR-NON AF YEMENI =60 Normal >=60 [facility] Comment on above: Performed By: #### P SAD #### [facility] [address] [place] [address] Dr. Nic Marie Glucose [Mass/Vol] 238 mg/dL Critically high 74-106 [facility] Comment on above: Performed By: #### P SAD #### [facility] [address] [place] [address] Dr. Nic Marie Potassium [Moles/Vol] 4.2 mmol/L Normal 3.5-5.1 [facility] Comment on above: Performed By: #### P SAD #### [facility] [address] [place] [address] Dr. Nic Marie Sodium [Moles/Vol] 136 mmol/L Normal 136-145 [facility] Comment on above: Performed By: #### P SAD #### [facility] [address] [place] [address] Dr. Nic Marie Urea nitrogen [Mass/Vol] 30.0 mg/dL Critically high 7.0-18.0 [facility] Comment on above: Performed By: #### P SAD #### [facility] [address] [place] [address] Dr. Nic Marie Urea nitrogen/Creatinine [Mass ratio] 25.4 mg/mg Normal [facility] Comment on above: Performed By: #### P SAD #### [facility] [address] [place] [address] Dr. Nic Marie CBC W MANUAL DIFFon 05-05-19 22 ANISOCYTOSIS SLIGHT Normal [facility] Comment on above: Performed By: #### Berry SALGADO #### [facility] [address] [place] [address] Dr. Nic Marie ATYPICAL LYMPH # Normal [facility] Comment on above: Performed By: #### C DAMIAN #### [facility] [address] [place] [address] Dr. Nic Marie ATYPICAL LYMPH % Normal [facility] Comment on above: Performed By: #### C DAMIAN #### [facility] [address] [place] [address] Dr. Nic Marie BAND # Normal 0.0-0.3 [facility] Comment on above: Performed By: #### C BCSALINA #### [facility] [address] [place] [address] Dr. Nic Marie BAND % Normal 0-5 [facility] Comment on above: Performed By: #### C DAMIAN #### [facility] [address] [place] [address] Dr. Nic Marie BASOM # 0.15 103/ul Critically high 0.00-0.10 [facility] Comment on above: Performed By: #### C DAMIAN #### [facility] [address] [place] [address] Dr. Nic Marie BASOM % 1.0 % Normal 0.2-2.0 [facility] Comment on above: Performed By: #### C DAMIAN #### [facility] [address] [place] [address] Dr. Nic Marie BLAST # Normal [facility] Comment on above: Performed By: #### C DAMIAN #### [facility] [address] [place] [address] Dr. Nic Marie BLAST % Normal [facility] Comment on above: Performed By: #### C DAMIAN #### [facility] [address] [place] [address] Dr. Nic Marie CORRECTED WBC Normal 4.0-11.0 [facility] Comment on above: Performed By: #### C DAMIAN #### [facility] [address] [place] [address] Dr. Nic Marie EOS # 0.73 103/ul Critically high 0.00-0.70 [facility] Comment on above: Performed By: #### C DAMIAN #### [facility] [address] [address] [address] Nic Marie EOS% 5.0 % Normal 0.9-7.0 [facility] Comment on above: Performed By: #### C DAMIAN #### [facility] [address] [address] [address] Nic Marie HCT 38.1 % Critically low 42.0-54.0 [facility] Comment on above: Performed By: #### C DAMIAN #### [facility] [address] [address] [address] Nic Marie HGB 10.4 g/dl Critically low 14.0-18.0 [facility] Comment on above: Performed By: #### C DAMIAN #### [facility] [address] [place] [address] Dr. Nic Marie HYPOCHROMASIA SLIGHT Normal [facility] Comment on above: Performed By: #### C DAMIAN #### [facility] [address] [place] [address] Dr. Nic Marie LYMPHM # 0.58 103/ul Critically low 1.20-3.80 [facility] Comment on above: Performed By: #### C DAMIAN #### [facility] [address] [place] [address] Dr. Nic Marie LYMPHM% 4.0 % Critically low 20.5-60.0 [facility] Comment on above: Performed By: #### C DAMIAN #### [facility] [address] [place] [address] Dr. Nic Marie MCH 19.3 pg Critically low 25.9-34.0 [facility] Comment on above: Performed By: #### C DAMIAN #### [facility] [address] [place] [address] Dr. Nic Marie MCHC 27.3 g/dl Critically low 29.9-35.2 [facility] Comment on above: Performed By: #### C DAMIAN #### [facility] [address] [address] [address] Nic Marie MCV 70.6 fL Critically low 80.0-94.0 [facility] Comment on above: Performed By: #### C DAMIAN #### [facility] [address] [address] [address] Nic Marie METAMYELOCYTE # Normal [facility] Comment on above: Performed By: #### C DAMIAN #### [facility] [address] [place] [address] Dr. Nic Marie METAMYELOCYTE % Normal [facility] Comment on above: Performed By: #### C DAMIAN #### [facility] [address] [address] [address] Nic Marie MONOM# 0.58 103/ul Normal 0.30-0.80 [facility] Comment on above: Performed By: #### C DAMIAN #### [facility] [address] [place] [address] Dr. Nic Marie MONOM% 4.0 % Normal 1.7-12.0 [facility] Comment on above: Performed By: #### C DAMIAN #### [facility] [address] [place] [address] Dr. Nic Marie MPV 9.7 fL Normal 9.5-13.5 [facility] Comment on above: Performed By: #### C DAMIAN #### [facility] [address] [place] [address] Dr. Nic Marie MYELOCYTE # Normal [facility] Comment on above: Performed By: #### C DAMIAN #### [facility] [address] [place] [address] Dr. Nic Marie MYELOCYTE % Normal [facility] Comment on above: Performed By: #### C DAMIAN #### [facility] [address] [place] [address] Dr. Nic Marie NRBC Normal [facility] Comment on above: Performed By: #### C DAMIAN #### [facility] [address] [place] [address] Dr. Nic Marie PLT 347 103/ul Normal 150-450 [facility] Comment on above: Performed By: #### C DAMIAN #### [facility] [address] [address] [address] Nic Marie RBC 5.40 106/ul Normal 4.70-6.10 [facility] Comment on above: Performed By: #### C DAMIAN #### [facility] [address] [id number] [address] Nic Marie RDW 22.2 % Critically high 11.0-15.0 [facility] Comment on above: Performed By: #### C DAMIAN #### [facility] [address] [address] [address] Nic Marie SEG # 12.56 103/ul Critically high 1.40-6.[address] [facility] Comment on above: Performed By: #### C DAMIAN #### [facility] [address] [address] [address] Nic Marie SEG % 86.0 % Critically high 43.0-75.0 [facility] Comment on above: Performed By: #### C DAMIAN #### [facility] [address] [address] [address] Nic Marie WBC 14.6 103/ul Critically high 4.0-11.0 [facility] Comment on above: Performed By: #### C DAMIAN #### [facility] [address] [address] [address] Nic Marie GLYCOHEMOGLOBIN A1Con 2021 ADA RECOMMENDATION ADA THERAPEUTIC TARGET 6.0 - 7.0 ACTION SUGGESTED > 7.0 Normal [facility] Comment on above: Performed By: #### A 1C #### [facility] [address] [address] [address] Nic Marie Glucose [Mass/Vol] 171 mg/dL Normal [facility] Comment on above: Performed By: #### A 1C #### [facility] [address] [address] [address] Nic Marie HbA1c (Bld) [Mass fraction] 7.6 % Critically high <=6.0 [facility] Comment on above: Performed By: #### A 1C #### [facility] [address] [address] [address] Nic Marie LIPID PROFILEon 05-04-2021 CHOL-HDL RATIO NORM SEE BELOW Normal [facility] Comment on above: Result Comment: 3.3 - 4.4 LOW RISK 4.4 - 7.1 AVERAGE RISK 7.1 - 11.0 MODERATE RISK >11.0 HIGH RISK Performed By: #### L IPID, TSH, MG, CMP #### [facility] [address] [place] [address] Dr. Nic Marie Cholesterol [Mass/Vol] 97 mg/dL Normal <=200 [facility] Comment on above: Performed By: #### L IPID, TSH, MG, CMP #### [facility] [address] [place] [address] Dr. Nic Marie Cholesterol in HDL [Mass/Vol] 34 mg/dL Normal [facility] Comment on above: Performed By: #### L IPID, TSH, MG, CMP #### [facility] [address] [place] [address] Dr. Nic Marie Cholesterol in LDL [Mass/Vol] 49.2 mg/dL Normal [facility] Comment on above: Performed By: #### L IPID, TSH, MG, CMP #### [facility] [address] [place] [address] Dr. Nic Marie Cholesterol.total/Ch olesterol in HDL [Mass ratio] 2.9 {ratio} Normal [facility] Comment on above: Performed By: #### L IPID, TSH, MG, CMP #### [facility] [address] [place] [address] Dr. Nic Marie HDL NORMAL > or = 60 mg/dl - LOW CARDIOVASCULAR RISK <40 mg/dl - HIGH CARDIOVASCULAR RISK Normal [facility] Comment on above: Performed By: #### L IPID, TSH, MG, CMP #### [facility] [address] [place] [address] Dr. Nic Marie LDL CALC NORMAL SEE BELOW Normal [facility] Comment on above: Result Comment: <100 mg/dl OPTIMAL 100 - 129 mg/dl NEAR OR ABOVE OPTIMAL 130 - 159 mg/dl BORDERLINE HIGH 160 - 189 mg/dl HIGH >190 mg/dl VERY HIGH Performed By: #### L IPID, TSH, MG, CMP #### [facility] [address] [place] [address] Dr. Nic Marie Triglyceride [Mass/Vol] 69 mg/dL Normal <=150 [facility] Comment on above: Performed By: #### L IPID, TSH, MG, CMP #### [facility] [address] [place] [address] Dr. Nic Marie VLDL CALC 13.8 mg/dL Normal [facility] Comment on above: Performed By: #### L IPID, TSH, MG, CMP #### [facility] [address] [place] [address] Dr. Nic Marie MAGNESIUMon 05-04-2021 Magnesium [Mass/Vol] 1.6 mg/dL Normal 1.6-2.3 [facility] Comment on above: Performed By: #### L IPID, TSH, MG, CMP #### [facility] [address] [place] [address] Dr. Nic Marie PROF 14(COMP METB)on 022 Albumin [Mass/Vol] 3.8 g/dL Normal 3.5-5.0 [facility] Comment on above: Performed By: #### L IPID, TSH, MG, CMP #### [facility] [address] [place] [address] Dr. Nic Marie Albumin/Globulin [Mass ratio] 1.0 {ratio} Normal [facility] Comment on above: Performed By: #### L IPID, TSH, MG, CMP #### [facility] [address] [place] [address] Dr. Nic Marie ALP [Catalytic activity/Vol] 69 U/L Normal 38-126 [facility] Comment on above: Performed By: #### L IPID, TSH, MG, CMP #### [facility] [address] [place] [address] Dr. Nic Marie ALT [Catalytic activity/Vol] 26 U/L Normal 21-72 [facility] Comment on above: Performed By: #### L IPID, TSH, MG, CMP #### [facility] [address] [place] [address] Dr. Nic Marie Anion gap [Moles/Vol] 8.5 mmol/L Normal [facility] Comment on above: Performed By: #### L IPID, TSH, MG, CMP #### [facility] [address] [place] [address] Dr. Nic Marie AST [Catalytic activity/Vol] 16 U/L Critically low 17-59 [facility] Comment on above: Performed By: #### L IPID, TSH, MG, CMP #### [facility] [address] [place] [address] Dr. Nic Marie Bilirubin [Mass/Vol] 0.7 mg/dL Normal 0.2-1.3 [facility] Comment on above: Performed By: #### L IPID, TSH, MG, CMP #### [facility] [address] [place] [address] Dr. Nic Marie Calcium [Mass/Vol] 9.4 mg/dL Normal 8.4-10.2 [facility] Comment on above: Performed By: #### L IPID, TSH, MG, CMP #### [facility] [address] [place] [address] Dr. Nic Marie Chloride [Moles/Vol] 104 mmol/L Normal 98-107 [facility] Comment on above: Performed By: #### L IPID, TSH, MG, CMP #### [facility] [address] [place] [address] Dr. Nic Marie CO2 [Moles/Vol] 30.9 mmol/L Critically high 22.0-30.0 [facility] Comment on above: Performed By: #### L IPID, TSH, MG, CMP #### [facility] [address] [place] [address] Dr. Nic Marie Creatinine [Mass/Vol] 1.03 mg/dL Normal 0.66-1.25 [facility] Comment on above: Performed By: #### L IPID, TSH, MG, CMP #### [facility] [address] [place], [place] [address] Dr. Nic Marie EGFR-AF YEMENI >60 Normal >=60 [facility] Comment on above: Performed By: #### L IPID, TSH, MG, CMP #### [facility] [address] [address] [address] Nic Marie EGFR-NON AF YEMENI >60 Normal >=60 [facility] Comment on above: Performed By: #### L IPID, TSH, MG, CMP #### [facility] [address] [address] [address] Nic Marie Globulin (S) [Mass/Vol] 3.7 g/dL Normal [facility] Comment on above: Performed By: #### L IPID, TSH, MG, CMP #### [facility] [address] [place] [address] Dr. Nic Marie Glucose [Mass/Vol] 121 mg/dL Critically high 74-106 [facility] Comment on above: Performed By: #### L IPID, TSH, MG, CMP #### [facility] [address] [place] [address] Dr. Nic Marie Potassium [Moles/Vol] 4.4 mmol/L Normal 3.4-5.0 [facility] Comment on above: Performed By: #### L IPID, TSH, MG, CMP #### [facility] [address] [place] [address] Dr. Nic Marie Protein [Mass/Vol] 7.5 g/dL Normal 6.1-8.2 [facility] Comment on above: Performed By: #### L IPID, TSH, MG, CMP #### [facility] [address] [place] [address] Dr. Nic Marie Sodium [Moles/Vol] 139 mmol/L Normal 137-145 [facility] Comment on above: Performed By: #### L IPID, TSH, MG, CMP #### [facility] [address] [address] [address] Nic Marie Urea nitrogen [Mass/Vol] 21.0 mg/dL Critically high 9.0-20.0 [facility] Comment on above: Performed By: #### L IPID, TSH, MG, CMP #### [facility] [address] [place], [place] [address] Dr. Nic Marie Urea nitrogen/Creatinine [Mass ratio] 20.4 mg/mg Normal [facility] Comment on above: Performed By: #### L IPID, TSH, MG, CMP #### [facility] [address] [place], [place] [address] Dr. Nci Marie TSHon 05-04-2021 TSH 1.553 uIU/mL Normal 0.470-4.680 [facility] Comment on above: Performed By: #### L IPID, TSH, MG, CMP #### [place] [facility] [address] [address] [address] Nic Marie TSH RANGE SEE BELOW Normal [facility] Comment on above: Result Comment: <0.3 4 UIU/ml HYPERTHYROID 0.34-5.60 UIU/ml EUTHYROID >5.60 UIU/ml HYPOTHYROID Performed By: #### L IPID, TSH, MG, CMP #### [facility] [address] [place], [place] [address] Dr. Nic Marie Cardiovascular Lab Reporton 08-03-2020 Cardiovascular Lab Report [facility] Patient Name: [facility] Khadar Smart MR #: [id number] Department of Physician: Alexa Campbell M.D. Division of Service Date: 08/03/2020 Cardiology Birthdate: 1940 Adult Cardiovascular Room #: [place] [address] Cardiovascular Laboratory Report FINAL IMPRESSIONS: 1. Severe [...] right internal jugular vein was obtained. A 6-Ghanaian x 11 cm sheath was inserted without [...] to access the left radial artery. A 6-Ghanaian glide sheath was inserted without difficulty. Bilateral selective coronary angiography was performed using JR4 and JL4 catheters. After reviewing the images, it was elected to proceed with an interventional procedure. A 6-Ghanaian JR4 guide catheter was advanced over J-wire [...] stenosis. (more content not included)... Normal [facility] Vital Signs Date Time Vital Sign Value Performing Clinician Janes gautam 10-19-2023 10:55-0400 Blood Pressure Location Yousuf MARTIN [facility] 10-19-2023 10:55-0400 Diastolic blood pressure 70 mm[Hg] Yousuf MARTIN [facility] 10-19-2023 10:55-0400 Heart rate 16 /min Yousuf MARTIN [facility] 10-19-2023 10:55-0400 Respiratory rate 16 /min Yousuf MARTIN [facility] 10-19-2023 10:55-0400 Systolic blood pressure 130 mm[Hg] Yousuf MARTIN [facility] 10-13-2022 09:35-0400 Blood Pressure Location Yousuf MARTIN [facility] 10-13-2022 09:35-0400 Diastolic blood pressure 78 mm[Hg] Yousuf MARTIN [facility] 10-13-2022 09:35-0400 Heart rate 69 /min Yousuf MARTIN [facility] 10-13-2022 09:35-0400 Respiratory rate 16 /min Yousuf MARTIN [facility] 10-13-2022 09:35-0400 Systolic blood pressure 132 mm[Hg] Yousufwander MARTIN [facility] Encounters Encounter Date Encounter Type Care Provider Facility Start: 10-20-2024 ambulatory Yousuf Nguyễn ty:ALYSA Alex Start: 03-20-[address] [facility] Start: 03-10-2024 End: 03-10-2024 ambulatory [facility] Start: 03-07-2024 End: 03-07-2024 ambulatory [facility] Start: 03-03-2024 End: 03-03-[address] [facility] Start: 02-08-2024 End: 02-08-2024 ambulatory [facility] Start: 11-27-2023 End: 11-27-2023 Dionrah Engle DO Work Phone: [facility] Start: 11-27-2023 End: 11-27-2023 Dinorah Bolden Zahler DO Work Phone: [facility] Start: 11-27-2023 End: 11-27-2023 ambulatory KELY ENGLE Not Available Start: 10-19-2023 End: 10-19-2023 ambulatory Yousuf MARTIN Facility:[facility] Start: 10-19-2023 End: 10-19-2023 Patient encounter procedure Yousuf MARTIN [facility] Start: 09-25-2023 End: 09-25-2023 ambulatory [facility] Start: 08-24-2023 End: 08-24-2023 ambulatory KELY ENGLE Not Available Start: 06-29-2023 End: 06-29-2023 ambulatory KELY REEDER Not Available Start: 05-11-2023 End: 05-11-2023 ambulatory KELY REEDER Not Available Start: 02-23-2023 End: 02-23-2023 ambulatory KELYMEHRAN GREENHLER Not Available Start: 10-17-2022 End: 10-17-2022 Patient encounter procedure Yousuf MARTIN [facility] Start: 10-13-2022 End: 10-13-2022 Patient encounter procedure Yousuf MARTIN [facility] Start: 04-20-2022 End: 04-21-2022 ambulatory BABAK العلي Facility:[facility] Start: 10-25-2021 End: 10-26-[address] RAMYA FLANAGAN Facility:[facility] Start: 05-04-2021 End: 05-05-2021 ambulatory BABAK العلي Facility:[facility] Start: 08-03-2020 End: 08-04-2020 ambulatory RAMYA FLANAGAN Facility:[facility] Procedures Date Procedure Procedure Detail Performing Clinician [...] above: Performed By: #### P SAD #### [facility] [address] [place] [address] Dr. Nic Marie Start: 08-03-2020 Placement of stent i n cardiac conduit Yousuf MARTIN carotid endarderectomy Frandy MARTIN History of hernia repair Tonia MARTIN Operative procedure on coronary artery Yousuf MARTIN Plan of Treatment Date Care Activity Detail Author Start: 11-27-2023 End: 11-27-2023 Patient encounter procedure 11/27/2023 10:30 AM EDT Office Visit [facility] [address] [place] [address] Kely Engle DO [address] [place] [address] Arrived [facility] Comment on above: Arrived Start: 11-04-2023 Influenza vaccination Influenza Vacc ine (#1) [facility] Start: 12-20-2017 Pneumococcal Vaccine : 65+ Years (2 of 2 - PPSV23 or PCV20) Pneumococcal Vaccine: 65+ Years (2 of 2 - PPSV23 or PCV20) [facility] Immunizations Immunization Date Immunization Notes Care Provider Natacha deviturner 11-23-2021 SARS-CoV-2 (COVID-19 ) [id number] Yousuf MARTIN [facility] 12-30-2020 SARS-CoV-2 (COVID-19 ) mRNA BNT-162b2 vax Yousuf MARTIN [facility] Comment on above: Result Comment: 2023: [id number] 05-13-2020 SARS-CoV-2 (COVID-19 ) mRNA-1273 vaccine Yousuf MARTIN [facility] Comment on above: Result Comment: 2023: [id number] 04-15-2020 SARS-CoV-2 (COVID-19 ) mRNA-1273 vaccine Yousuf MARTIN [facility] 03-05-2020 SARS-CoV-2 (COVID-19 ) mRNA-1273 vaccine Yousuf MARTIN [facility] Comment on above: Result Comment: pt h as had 3 shots to date but does not know the dates 12-20-2016 pneumococcal conjuga te vaccine, 13 valent Yousuf MARTIN [facility] NEGATED: Highlighted row has not occurred!04-23-2020 influenza virus vaccine, unspecified formulation Yousuf MARTIN [facility] Payers Date Payer Category Payer Medicare AETNA MEDICARE A DVANTAGE AETNA MEDICARE REPLACEMENT [id number] 2021-Present [address] [place] [address] [id number] 1957 Medicare [id number] 1940 Unknown [id number] [id number]. 647 1940 Unknown [id number] 2.16.840.1.060891.3.579.2. 593 1940 Unknown [id number] 2.16.840.1.321615.3.579.2. 593 1940 Unknown [id number] 2.16.840.1.188450.3.579.2. 593 1940 Unknown [id number] 2.16.840.1.836132.3.579.2. 593 1940 Unknown [id number] 2.16.840.1.838467.3.579.2. 727 1940 Unknown [id number] 2.16.840.1.492359.3.579.2. 727 1940 Unknown [id number] 2.16.840.1.291530.3.579.2. 1259 1940 Unknown [id number] 2.16.840.1.229593.3.579.2. 1259 1940 Unknown [id number] 2.16.840.1.802459.3.579.2. 1259 1940 Unknown [id number] 2.16.840.1.613925.3.579.2. 1259 1940 Unknown [id number] 2.16.840.1.038934.3.579.2. 1259 Private Health Insurance [id number] Social History Date Type Detail Facility Start: 04-25-2019 End: 10-19-2023 Tobacco smoking status Ex-smoker (finding) [facility] Start: 09-27-2022 Sex Assigned At Male [facility] Tobacco smoking status Never [facility] Start: 09-27-2022 [facility] tobacco [facility] Start: 09-27-2022 History of Social function [facility] Start: 1940 Sex assigned at Not on file N [facility] Functional Status Date Assessment Result Facility 10-19-2023 Functional Status N/A [facility] 10-13-2022 Functional Status N/A [facility] Clinical Notes 04-13-2020 to 03-20-2024 Kely Engle, DO - 11/27/2023 10:30 AM EDT Note Date & Type Note Facility 03-20-2024 Note Attestation signed by Cara Perez MD at 03/21/2024 11:55 AM I have seen and examined the patient. I reviewed the resident/fellow note and I agree with the findings and plan. Cara Perez MD Interventional Pulmonary Medicine Pulmonary and Critical Care Medicine [facility] Pulmonary Clinic Visit Note Patient: Khadar Ramos Age: 84 y.o. : 1940 Account No.: [id number] Referring physician: Dr. Sahu Chief complaint: Lung mass HPI 77-year-old male seen with past medical history of CHF, paroxysmal A-fib, hypertension, diabetes who was referred to our clinic for evaluation of the lung mass. Patient had CT chest which was done on January 2024 which showed left lung apex lung mass measures 3.4 cm spiculated margin with several small irregular nodule within left upper lobe with emphysematous changes bilaterally. Afterward patient had PET scan/CT scan which showed hypermetabolic left apical pulmonary mass with multiple left upper lobe pulmonary nodules suspicious of metastasis with mediastinal lymph node increased uptake. Patient with history of smoking, quit 30 years ago. Smoked for 20 years 1 pack/day. Patient was recently hospitalized in January 2024 for acute hypoxic respiratory failure due to acute decompensated heart failure.. Echo was done and showed EF of 45% with severe elevated right-sided pressure with RVSP 65. Patient also has history of tachybradycardia syndrome, follows up with cardiology and recently had pacemaker placement. Patient was discharged on oxygen currently on home oxygen 2 L/min Today, patient feels relatively well at his baseline. Continues to have dyspnea on exertion. Continues to use oxygen 2 L/min. Was prescribed inhaler however he does not use it as it does not help. No prior PFT available in his chart. CT imaging showed emphysematous changes likely patient has COPD. Denies any of fever night sweating or chills or hemoptysis or weight loss Past Medical History: Diagnosis Date Atrial fibrillation (CMS/HCC) CHF (congestive heart failure) (CMS/HCC) Coronary artery disease Diabetes mellitus (CMS/HCC) Hyperkalemia Hyperlipidemia Hypertension Past Surgical History: Procedure Laterality Date CARDIAC CATHETERIZATION CAROTID ENDARTERECTOMY HERNIA REPAIR Allergies: Patient has no known allergies. Prior to Admission medications Medication Sig Start Date End Date Taking? Authorizing Provider atorvastatin (Lipitor) 80 mg tablet Take 80 mg by mouth at bedtime. Yes Historical Provider, benazepril (Lotensin) 20 mg tablet Take 1 tablet (20 mg) by mouth once daily as directed. 03/12/24 03/12/25 Yes Chris Dixon MD carvedilol (Coreg) 12.5 mg tablet Take 2 tablets (25 mg) by mouth with breakfast and with evening meal. 03/12/24 03/12/25 Yes Chris Dixon MD empagliflozin (Jardiance) 10 mg Take 1 tablet (10 mg) by mouth in the morning. 09/29/22 Yes Babak العلي NP ferrous sulfate 325 (65 Fe) MG tablet Take 1 tablet by mouth in the morning. Yes Historical Provider, furosemide (Lasix) 20 mg tablet Take 20 mg by mouth in the morning. Yes Historical Provider, glimepiride (Amaryl) 4 mg tablet Take 2 mg by mouth before breakfast. Yes Historical Provider, metFORMIN (Glucophage) 500 mg tablet Take 500 mg by mouth with breakfast and with evening meal. 01/19/22 Yes Historical Provider, pantoprazole (ProtoNix) 40 mg EC tablet pantoprazole 40 mg tablet,delayed release Yes Historical Provider, rivaroxaban (Xarelto) 20 mg tablet Xarelto 20 mg tablet Yes Historical Provider, Social history: reports that he has quit smoking. His smoking use included cigarettes. He has never used smokeless tobacco. He reports that he does not currently use alcohol. Family History Problem Relation Name Age of Onset Other (cardiac arrest) Father Coronary artery disease Brother Other (CABG) Brother Review of Systems: CONSTITUTIONAL: no weight loss, no fever, no chills HEENT: no vision changes, no ear pain, no runny nose, no sore throat CV: no chest pain, no palpitations, no syncope GI: no abdominal pain, no nausea, no vomiting, no diarrhea. MSK: no myalgia, no joint pain. SKIN: no rash, no pruritus. NEUROLOGICAL: no weakness, no paresthesias Physical examination: Vitals: BP 135/78 (BP Location: Left arm, Patient Position: Sitting, BP Cuff Size: Small adult) Pulse 89 Temp 36.7 ???C (98 ???F) (Oral) Ht 1.664 m (5' 5.5 ) Wt 76.2 kg (168 lb) SpO2 98% BMI 27.53 kg/m??? GENERAL: Alert and oriented x 3. Looks chronically ill on home oxygen HEENT: EOMI, no scleral icterus. Moist mucous membranes. NECK: trachea midline, no JVD. Supple. LUNGS: Decreased breath sound bilaterally. No wheezing or rales CARDIOVASCULAR: Re (more content not included)... [facility] 03-10-2024 Note IN Cardiology - [facility] Subjective Khadar Ramos is a 84 y.o. 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 Patient has underlying persistent atrial fibrillation with prolonged pauses up to 8 seconds, Coronary Artery Disease , Congestive Heart Failure , Hypertension, and Hyperlipidemia Patient Active Problem List [...] hydrocele Age-related nuclear cataract of both eyes 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) Lung mass Pulmonary hypertension (CMS/HCC) Nonrheumatic aortic valve stenosis Sinus pause 03/10/2024 Patient is here today for follow-up visit and to check on the pacemaker wound. He states that he has been doing well but he has his blood pressure log with him and it has been elevated. Denies chest pain or shortness of breath at rest or with exertion. Denies orthopnea or paroxysmal nocturnal dyspnea or dizziness or palpitation indications. He states that his legs edema has been stable 02/08/2024 Patient has history of coronary artery disease, [...] palpitation. He has chronic legs edema which he states that it has been stable since [...] No Known Allergies Medications Current Outpatient Medications: atorvastatin (Lipitor) 80 mg tablet, Take 80 mg by mouth at bedtime., Disp: , Rfl: furosemide (Lasix) 20 mg tablet, Take 20 mg by mouth in the morning., Disp: , Rfl: amLODIPine-benazepriL (Lotrel) 10-20 mg capsule, amlodipine 10 mg-benazepril 20 mg capsule, Disp: , Rfl: carvedilol (Coreg) 12.5 mg [...] tablet, Disp: , Rfl: Objective Visit Vitals Smoking Status Former Physical exam: GENERAL: alert and oriented x3, well developed, in no acute distress. HEAD: atraumatic, normocephalic. EYES: ZACHERY, EOMI. NECK: trachea midline, no JVD present, no carotid bruits present. CARDIAC: Irregular irregularity, S1, S2 present. . Systolic ejection murmur 3/6 at the aortic area. RESPIRATORY: CTAB, no increased effort of breathing, no rales, rhonchi, or wheezing. ABDOMEN: soft, nontender, nondistended. EXTREMITIES: Bilateral +1 edema. NEURO: strength/sensation equal and symmetric in bilateral upper and lower extremities. PSYCH: gloria (more content not included)... [facility] 03-03-2024 Note SINGLE CHAMBER PACEM CRUZITO IMPLANT PROCEDURE NOTE DATE OF PROCEDURE: 03/03/2024 PERFORMING PHYSICIAN: Dr. Aaron Perez CONSENT: Patient LOCATION: EP Lab PROCEDURE PERFORMED: 1. Implantation of pacemaker ([employer]) 2. Ultrasound guided venous access INDICATIONS: 1. Afib with slow VR PROCEDURAL SEDATION: Versed and Fentanyl. Moderate sedation was administered by the sedation nurse under my supervision and noted in the CVL log. Intraprocedural face to face sedation time: 56min. Monitoring: Cardiac telemetry, Blood pressure, continuous pulse oxymetry. FLUOROSCOPY TIME: 5.6mins/ 23mGray. EBL: 15cc SPECIMEN REMOVED: None PROCEDURAL DETAILS: Patient was placed in trendelenberg position and ultrasound was used to evaluate the patency of left axillary vein and for venous access. Left axillary venous access was obtained using modified seldinger technique using a 5 Ghanaian micro-puncture needle on one occasion and 0.35 wires was placed. Local infiltration of 1% Lidocaine was performed, and an incision was created in the left upper chest. Dissection was then performed using cautery down to the fascial plane above the muscle. The belly of the pectoralis was identified and with gentle blunt dissection a small pocket was created for the device above the muscle. 6 Ghanaian Safesheaths were placed over the wire. An active fixation [employer] pacing lead was then delivered through the 6Fsheath to the right ventricle. After confirmation of lead position on orthogonal views (GODINEZ and BELARUSIAN) to confirm septal position, the screw was activated, and the lead was placed in the right ventricular mid cavity towards the septum. After confirmation of good sensing parameters, injury pattern and pacing thresholds, 10V pacing was done and no diaphragmatic stimulation was noted. It was then secured in the pocket using three 1-0 Silk sutures. Pocket hemostasis was secured, and it was then copiously and vigorously irrigated with antibiotic solution. The lead was attached to the generator and then wrapped under the device and the device was tacked to underlying muscle and placed in the pocket. The pocket was closed in layers: subcutaneous layer using 2-0 Vicryl; skin using 3-0 absorbable monofilament suture. Glue was applied and Tegaderm dressing was placed on top. Lead parameters were then rechecked through the device as noted below. The patient was returned to the short stay room for post procedural observation. No immediate procedural complications were noted. POST PROCEDURE EXAM: Patient was hemodynamically stable. COMPLICATIONS: None. IMPRESSION: 1. Successful single chamber pacemaker with excellent pacing and sensing parameters. RECOMMENDATIONS: 1. Occlusive dressing to be removed after 2 weeks. 2. Do not wet the incision for 7 days. 3. No lifting heavy weights using arm on the same side x 3weeks 4. Do not lift elbow above the shoulder on the same side for 4-6 weeks. 5. No driving for 1 month. 6. F/u in device clinic 1 week from discharge or sooner for any concerns. Aaron Perez MD Cardiac Electrophysiology 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 Use of blood products discussed with patient who. Additional Equipment Requests [facility] 02-22-2024 Note Today I reviewed pat ient [...] Dr. Perez next time he is in [place] office 03/18/2024. The patient was advised to come to the emergency room immediately if he has any dizziness. [facility] 02-08-2024 Note IN Cardiology - [facility] Subjective Khadar Ramos is a 83 y.o. year old male patient being seen for Hospital Follow-up (He was admitted to [facility] last month for CHF. Say he's feeling much better s/p discharge. ), Coronary Artery Disease , Congestive Heart Failure , Atrial Fibrillation, Hypertension, and Hyperlipidemia Patient Active Problem List Diagnosis Atrial fibrillation (CMS/HCC) Coronary atherosclerosis History of prostate cancer Hyperkalemia Hyperlipidemia Benign hypertensive heart disease with heart failure (CMS/HCC) Malignant neoplasm of prostate (CMS/HCC) Systolic heart failure ([facility]/HCC) BPH (benign prostatic hyperplasia) BPH with urinary obstruction Diabetes ([facility]/HCC) Elevated PSA Exudative age-related macular degeneration of right eye with active choroidal neovascularization ([facility]/HCC) Glycosuria Gross hematuria Hypertension Nocturia Primary open [...] Past Medical History: Diagnosis Date Atrial fibrillation ([facility]/HCC) CHF (congestive heart failure) ([facility]) Coronary artery disease Diabetes mellitus ([facility]) Hyperkalemia Hyperlipidemia Hypertension Past Surgical History: Procedure [...] and other tests (more content not included)... [facility] 11-27-2023 Note Right Eye Reliability was good. Progression has been stable. Foveal threshold was normal. Findings include normal observations. Left Eye Reliability was good. Progression has been stable. Foveal threshold was normal. Findings include central scotoma. [facility] 11-27-2023 Note Right Eye Quality was good. Scan locations included subfoveal. Progression has been stable. Findings include abnormal foveal contour. Left Eye Quality was good. Scan locations included subfoveal. Progression has been stable. Findings include abnormal foveal contour, subretinal scarring. Notes Retinal pigment epithelium (RPE) changes c/w drusen Macular volume loss both eyes (OU) [facility] 11-27-2023 History of Present illness Narrative [...] worsening of vision documented in this encounter [facility] 10-19-2023 Hospital Discharge instructions Patient Education [...] urethra. Follow these instructions at home: Take nurf-ahu-etpbnlt and prescription medicines only as told by [...] provider. Document Revised: 09/07/2021 Document Reviewed: 09/07/2021 [employer] Patient Education 2022 [employer] Follow Up Care 12/11/2022 11:11:41 With:ALFIE WISE, Yousuf Barroso, URL Address: [address] [place] [address]- When: Unknown [facility] 10-19-2023 Note Patient Education Urology Benign [...] Follow these instructions at home: ? Take snut-tbg-ifofnhb and prescription medicines only as told by [...] develop side effec (more content not included)... [facility] 09-25-2023 Note Patient here for 6 [...] All other systems reviewed and are negative. [facility] 09-25-2023 Note Cardiovascular Medic [facility] SUBJECTIVE Chief Complaint Patient presents with [...] Final QTC CALCULATION(BAZETT) 08/03/2020 428 ms Final R-Talmage 08/03/2020 -82 degrees Final T Wave Talmage 06 (more content not included)... [facility] 10-17-2022 Hospital Discharge instructions Patient Education [...] [facility] [address] , [place] [address]- Business (1) When: Unknown Comments:Office will call to schedule follow up [facility] 10-13-2022 Hospital Discharge instructions Patient Education [...] urethra. Follow these instructions at home: Take dvxy-juq-njttfdz and prescription medicines only as told by [...] provider. Document Revised: 09/07/2021 Document Reviewed: 09/07/2021 [employer] Patient Education 2022 [employer]. Follow Up Care 04/25/2021 10:27:16 With:ALFIE WISE, Yousuf Barroso, URL Address: [facility] [address] [place] [address]- When: Unknown Comments:radha Brinko. [facility] 04-13-2020 Note Patient Outreach ([place] [facility]) KHADAR RAMOS ([id number]) 1940 M Date Time Provider Department 04/13/20 RICCO RUBI During your visit today, we recorded the following information about you: Allergies As of Date: 04/13/2020 (No Known Allergies) Date Reviewed: 06/05/2018 Reviewed by: Rosalie Allen - Fully Assessed Order(s):SARS-COVID VACCINE 1ST DOSE APPT [[id number]] Order #: [id number] FUTURE Prescriptions as of 04/13/2020 Sig: SIMVASTATIN [...] Encounter Status:Closed by NIVIA ESPITIA on 04/16/[address] [facility] Evaluation + Plan note Future Appointments Appointment Date:10/16/2022 10:45:00 AM Scheduled Provider: Location:[facility] Appointment Type:Urology CALL PAT FT Appointment Date:10/17/2022 10:00:00 AM Scheduled Provider: Location:[facility] Appointment Type:Urology FT Diagnostic Tests PendingPSA Total 10/13/22 [facility] Evaluation + Plan note Future Appointments Appointment Date:10/20/2024 10:30:00 AM Scheduled Provider:Yousuf MARTIN MD Location:[facility] Appointment Type:URO Office Visit Diagnostic Tests PendingPSA Total 09/02/24 [facility] Evaluation note Diagnosis Primary open angle glaucoma (POAG) of both eyes, mild stage (CMS/HCC)- Primary 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) Age-related nuclear cataract of both eyes 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 documented in this encounter [facility] Narrative No data available for this section [facility] progress note No data available for this section [facility] Summary Purpose Family History No Family [...] and content) DATE CREATED AUTHOR 08/09/2020 [facility] DATE CREATED AUTHOR AUTHOR'S ORGANIZ ATION 04/04/[address] [facility] DATE CREATED AUTHOR AUTHOR'S ORGANIZ ATION 04/22/2022 [facility] DATE CREATED AUTHOR AUTHOR'S ORGANIZ ATION 10/21/2023 [facility] DATE CREATED AUTHOR AUTHOR'S ORGANIZ ATION 11/29/[address] [facility] DATE CREATED AUTHOR AUTHOR'S ORGANIZ ATION 03/29/2024 [facility] Patient Care team informatio n (unrecognized section and content) Personnel Name: Josy Sahu MD Address: Address: [address] [place] [address] Personnel Name: Josy Sahu MD Address: Address: [address] [place] [address] Personnel Name: Josy Sahu MD Address: Address: [address] [place] [address] Reason for Visit (unrecogniz ed section and [...] BE BASED ON THE PRIMARY CLINICAL RECORDS. [facility]. provides no warranty or guarantee of the accuracy or completeness of information in this document.
[2024-03-31] MEDS: AZITHROMYCIN 500 MG in 0.9 % SODIUM CHLORIDE 250 ML 250 MG IV (12:11)
--- NOTE | 2024-03-31 12:31 | P.HP_ITS ---
HPI H&P: HPI History of Present Illness Chief complaint: LOW OXYGEN Narrative: Patient with known for quite some time during his long-term medical care as well as recent hospitalizations, presented emergency room with increasing hypoxia, he wears 3 at home, bumped it up to 3-1/2 this is maximum would allow still getting sats in the 70s. Presented to the emergency room. In the emergency room found to have significant desaturations, even at 6 L usual at 89%, this is secondary to right lower lobe pneumonia, he has a known chest mass, this is likely complicating things as well. When I saw patient in the emergency room, he was resting in bed, some mild conversational dyspnea, cough throughout the evaluation Opioid HPI Opioid Management Most Recent Pain and Opioid Data: Last ORT Total Score 0 01/10/24 13:26 01/10/24 Last ORT Risk Category Low Risk 01/10/24 13:26 01/10/24 Review of Systems ROS Status of ROS 10 or more systems reviewed and unremark able except as noted in history and below [facility] Medical History (Updated 03/31/24 @ 11:56 by Remi Ren MD) Acute on chronic systolic (congestive) heart failure ?I50.23 - Acute on chronic systolic (congestive) heart failure (ICD-10) Hypoxia ?R09.02 - Hypoxemia (ICD-10) COPD (chronic obstructive pulmonary disease) ?J44.9 - Chronic obstructive pulmonary disease, unspecified (ICD-10) Congestive heart failure ?I50.9 - Heart failure, unspecified (ICD-10) Hematuria ?R31.9 - Hematuria, unspecified (ICD-10) Atrial fibrillation ?I48.91 - Unspecified atrial fibrillation (ICD-10) CHF (congestive heart failure) ?I50.9 - Heart failure, unspecified (ICD-10) Diabetes mellitus ?E11.9 - Type 2 diabetes mellitus without complications (ICD-10) Hypertension ?I10 - Essential (primary) hypertension (ICD-10) Prostate cancer ?C61 - Malignant neoplasm of prostate (ICD-10) Surgical History H/O hernia repair ?Z98.890 - Other specified postprocedural states (ICD-10) ?Z87.19 - Personal history of other diseases of the digestive system (ICD-10) H/O heart artery stent ?Z95.5 - Presence of coronary angioplasty implant and graft (ICD-10) Family History Father Family history of myocardial infarction Family history of CHF (congestive heart failure) Brother Family history of CHF (congestive heart failure) Family history of hypertension Sister Family history of cancer Social History Within the past year, how often did you have a drink containing alcohol: never Score interpretation: A score less than 4 is consistent with normal alcohol consumption. Smoking status: Former smoker Non-prescribed substance use: denies use Highest level of school completed/degree received: high school graduate Little interest or pleasure in doing things: not at all Feeling down, depressed, or hopeless: not at all Meds Home Medications and Allergies Home Medications ?Medication ?Instructions ?Recorded ?Confirmed ?Type atorvastatin 80 mg tablet 80 mg PO DAILY 09/23/22 03/31/24 History carvedilol 12.5 mg tablet 12.5 mg PO Q12H 09/23/22 03/31/24 History ferrous sulfate 325 mg (65 mg 325 mg PO DAILY 09/23/22 03/31/24 History iron) tablet furosemide 20 mg tablet 20 mg PO BID 09/23/22 03/31/24 History metformin 500 mg tablet 500 mg PO BID 09/23/22 03/31/24 History pantoprazole 40 mg tablet,delayed 40 mg PO DAILY 09/23/22 03/31/24 History release rivaroxaban 20 mg tablet (Xarelto) 20 mg PO DAILY 09/23/22 03/31/24 History dorzolamide 22.3 mg-timolol 6.8 1 drp ophthalmic (eye) BID 01/10/24 03/31/24 History mg/mL eye drops empagliflozin 10 mg tablet 10 mg PO DAILY 01/10/24 03/31/24 History (Jardiance) latanoprost 0.005 % eye drops 1 drp ophthalmic (eye) .qhs 01/10/24 03/31/24 History multivitamin (Daily Multi-Vitamin 1 tab PO DAILY 01/10/24 03/31/24 History tablet) omega 7-sqa-mqp-fish oil 300 1 cap PO DAILY 01/10/24 03/31/24 History mg-1,000 mg capsule (Fish Oil) albuterol sulfate 90 mcg/actuation 2 inh inhalation Q6H PRN shortness 01/16/24 03/31/24 Rx aerosol inhaler (Ventolin HFA) of breath or wheezing #8.5 grams amlodipine 10 mg-benazepril 20 mg 1 cap PO DAILY 03/31/24 03/31/24 History capsule benazepril 20 mg tablet 20 mg PO DAILY 03/31/24 03/31/24 History glimepiride 2 mg tablet 2 mg PO DAILY 03/31/24 03/31/24 History Allergies Allergy/AdvReac Type Severity Reaction Status Date / Time No Known Drug Allergies Allergy Verified 09/23/22 06:49 Exam Constitutional Vital Signs, click to edit/add: Last Vital Signs Temp 97.8 F 03/31/24 10:11 Pulse 82 03/31/24 12:20 Resp 14 03/31/24 12:20 BP 142/76 H 03/31/24 12:00 Pulse Ox 92 L 03/31/24 12:20 O2 Del Method Nasal Cannula 03/31/24 11:25 O2 Flow Rate 6 03/31/24 11:25 Documenting provider has reviewed patient's vital signs: yes Common normals: apparent distress (Mild conversational dyspnea with persistent cough) Chest Common normals: inspection of chest normal Respiratory Common normals: abnormal respiratory effort (Mild conversational dyspnea with cough throughout) Effort & inspection: tachypneic Auscultation: rhonchi, diminished lung sounds and egophony (Right lower lobe) Cardio Common normals: no JVD and regular rate GI Common normals: Normal to inspection, nondistended, normoactive bowel sounds present Extremity Common normals: abnormal to inspection (1+ edema) Results Labs Labs: Short CBC 03/31/24 Range/Units 10:30 WBC 9.1 (4.0-11.0) 10^3/uL Hgb 13.8 L (14.0-18.0) g/dL Hct 44.6 (42.0-54.0) % Plt Count 174 (150-450) 10^3/uL BMP 03/31/24 10:30 Sodium 141 Potassium 4.6 Chloride 102 Carbon Dioxide 35.6 H BUN 31.0 H Creatinine 1.33 H Glucose 191 H Calcium 9.3 Assessment and Plan Assessment and Plan (1) Pneumonia: (2) Acute on chronic systolic (congestive) heart failure: (3) Hypoxia: (4) COPD (chronic obstructive pulmonary disease): (5) Atrial fibrillation: (6) Diabetes mellitus: (7) Hypertension: Plan Admission findings: Severe hypoxia with O2 sat in the 70s, on his normal 3 L, only an 88%-89 on 6 L. Normal white blood cell count but significant left shift consistent with bacterial process, chest x-ray consistent with right lower lobe pneumonia Acute exacerbation of COPD secondary to right lower lobe pneumonia, with significant hypoxia, left shift on white blood cell count consistent with bacterial process-steroids, aerosols, try IPV's, IV antibiotics, try to obtain sputum culture, blood cultures pending Chest mass-plan is for biopsy next week, if he can stabilize we can still accomplish that 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-check BNP, had echocardiogram in the last couple months we will hold off on that currently Chronic kidney disease stage II-continue to monitor, elevated somewhat from baseline Hypertension-uncontrolled on admission, IV medications as needed Iron deficiency anemia as well as anemia of chronic kidney disease-monitor daily Diabetes mellitus-insulin sliding scale, likely to be deteriorate based on steroids needed to treat the above Hypercholesterolemia continue current medications GERD-continue with home medications Atrial fibrillation-maintain anticoagulation Admission status: Patient with severe hypoxemia with a baseline O2 requirement of 3 L, is at 6 L and only maintaining 88 to 89%, this secondary to right lower lobe pneumonia, medically necessary treatment will span 2 midnights. Inpatient status.
[2024-03-31 12:58] LABS: Bilirubin Urine NEGATIVE (NEGATIVE); Blood Urine NEGATIVE (NEGATIVE); Clarity Urine CLEAR (CLEAR); Color Urine LT. YELLOW (YELLOW); Glucose Urine UA >=1000 mg/dL (NEGATIVE); Ketones Urine NEGATIVE (NEGATIVE); Leukocyte Esterase Urine NEGATIVE (NEGATIVE); Nitrite Urine NEGATIVE (NEGATIVE); Protein Urine NEGATIVE (NEG/TRACE); Specific Gravity Urine 1.015 (1.005-1.025); Urobilinogen Urine 0.2 EU/dL (0.2-1.0)
[2024-03-31 13:08] LABS: WBC Urine NONE SEEN #/HPF (NONE SEEN)
[2024-03-31 13:09] LABS: Bacteria Urine NONE SEEN #/HPF (NONE SEEN); Mucus Urine NONE SEEN (NONE SEEN); RBC Urine NONE SEEN #/HPF (0-2); Squamous Epithelial Cell Urine RARE #/LPF (NONE/RARE)
[2024-03-31 13:16] LABS: Lactate/Lactic Acid 1.2 mmol/L (0.4-2.0)
[2024-03-31 13:26] LABS: Alanine Aminotransferase 22 U/L (16-63); Albumin Globulin Ratio 1.2; Albumin Level 3.4 g/dL (3.4-5.0); Alkaline Phosphatase 58 U/L (46-116); Aspartate Amino Transferase 21 U/L (15-37); Bilirubin Direct 0.3 mg/dL (0.0-0.2); Bilirubin Total 1.1 mg/dL (0.2-1.0); Globulin 2.9 g/dL; Magnesium 1.8 mg/dL (1.8-2.4); Total Protein 6.3 g/dL (6.4-8.2)
[2024-03-31] MEDS: SODIUM CHLORIDE 0.9% INHALATION 3 ML NEB 6 ML IH ×2 (16:26→22:19)
[2024-03-31] MEDS: IPRATROPIUM/ALBUTEROL SULFATE 3 ML AMPUL.NEB IH ×2 (16:26→22:19)
--- NOTE | 2024-03-31 16:31 | RESP.RT ---
titrated FiO2 down to 40%
[2024-03-31 17:03] LABS: Glucometer 135 mg/dL (74-106)
[2024-03-31] MEDS: 0.9 % SODIUM CHLORIDE 250 ML 10 ML IV (17:11)
[2024-03-31] MEDS: RIVAROXABAN 10 MG TABLET 20 MG PO (17:11)
[2024-03-31] MEDS: METFORMIN HCL 500 MG TABLET PO (17:11)
[2024-03-31] MEDS: LEVOFLOXACIN IN DEXTROSE 5 % 750 MG/150 ML PREMIX 100 MG IV (17:11)
[2024-03-31] MEDS: METHYLPREDNISOLONE SOD SUCC PF 125 MG/2 ML VIAL IVP ×2 (17:11→23:29)
[2024-03-31 21:19] LABS: Glucometer 148 mg/dL (74-106)
[2024-03-31] MEDS: ATORVASTATIN CALCIUM 40 MG TABLET 80 MG PO (21:21)
[2024-03-31] MEDS: FUROSEMIDE 20 MG TABLET PO (21:21)
[2024-03-31] MEDS: CARVEDILOL 12.5 MG TABLET PO (21:21)
[2024-03-31] MEDS: DORZOLAMIDE HCL 2%/TIMOLOL MALEATE 0.5% 200 DROP/10 ML BOTTLE OP (21:23)
[2024-03-31] MEDS: LATANOPROST 0.005% 2.5 ML BOTTLE 1 DROP OP (21:24)
[2024-04-01] VITALS (25 sets, daily range): BP systolic 118–161; BP diastolic 72–89; PULSE 81–111; TEMP 36.2–36.6; O2SAT 83–94
[2024-04-01 05:17] LABS: Hematocrit 44.5 % (42.0-54.0); Hemoglobin 13.5 g/dL (14.0-18.0); Mean Corpuscular HGB Conc 30.3 g/dL (29.9-35.2); Mean Corpuscular Hemoglobin 29.3 pg (25.9-34.0); Mean Corpuscular Volume 96.7 fL (80.0-94.0); Mean Platelet Volume 10.8 fL (9.5-13.5); Platelet Count 166 10^3/uL (150-450); Red Cell Distribution Width 16.1 % (11.0-15.0); White Blood Count 6.8 10^3/uL (4.0-11.0)
[2024-04-01] MEDS: IPRATROPIUM/ALBUTEROL SULFATE 3 ML AMPUL.NEB IH ×4 (05:30→22:40)
[2024-04-01 05:32] LABS: Anion Gap 5.3; BUN Creatinine Ratio 26.7; Calcium 9.3 mg/dL (8.5-10.1); Carbon Dioxide 37.4 mmol/L (21.0-32.0); Chloride 105 mmol/L (98-107); Estimated GFR (African America >60 (>=60 mL/min/1.73m^2); Estimated GFR (Non-African Ame 52 (>=60 mL/min/1.73m^2); Glucose 183 mg/dL (74-106); Potassium 4.7 mmol/L (3.5-5.1); Sodium 143 mmol/L (136-145)
[2024-04-01] MEDS: OMEPRAZOLE 40 MG CAPSULE.DR PO (05:33)
[2024-04-01] MEDS: METHYLPREDNISOLONE SOD SUCC PF 125 MG/2 ML VIAL IVP ×4 (05:34→23:35)
[2024-04-01 05:45] LABS: Atypical Lymphocytes Abs Man 0.06; Lymphocytes Absolute Manual 0.06 10^3/uL (1.20-3.80); Segmented Neut Absolute Manual 6.66 10^3/uL (1.4-6.5)
[2024-04-01 05:46] LABS: Ovalocytes 1+; Schistocytes 1+; Toxic Granulation 2+
[2024-04-01 06:55] LABS: Troponin I High Sensitivity 16.6 pg/mL (4.0-76.1)
--- NOTE | 2024-04-01 08:26 | CT_ITS ---
[address] [address] Patient Name: KHADAR RAMOS MRN: [id number] date: 1940 Sex: M Assigned Patient Location: [place] Current Patient Location: [place] Accession/Order Number: [id number] Exam Date: 04/01/2024 08:43 Report Date: 04/01/2024 09:41 At the request of: JOSY DELACRUZ Procedure: CT angio chest EXAMINATION: CT angio chest HISTORY: acute hypoxia COMPARISON: 01/11/2024 TECHNIQUE: Multi-planar CT images were created with IV contrast. Axial, Coronal, and Sagittal images. Dose reduction techniques were achieved by using automated exposure control and/or adjustment of mA and/or kV according to patient size and/or use of iterative reconstruction technique. FINDINGS: LUNGS: Stable spiculated 3.4 cm left upper lobe mass. Interval increase in number and size of satellite lesions the largest in the left upper lobe the spiculated measuring 1.7 cm previously 1.4 cm, axial image #20. Moderate diffuse centrilobular emphysema with an upper lobe predominance. Partial consolidation of both lower lobes likely passive atelectasis. Additional subcentimeter pulmonary nodules scattered throughout both lungs PLEURA: Increase in now 4.2 cm right pleural effusion. 2 cm left pleural effusion. No pneumothorax VASCULATURE: Normal postcontrast opacification of the central pulmonary arterial tree with no filling defect to suggest a pulmonary embolus AYE: No mass or adenopathy. MEDIASTINUM: No mass or adenopathy. CARDIAC: Moderate stable cardiomegaly. No pericardial effusion Coronary arteries: Heavy calcifications AORTA: No aortic aneurysm or dissection. Heavy calcific atherosclerosis CHEST WALL: No mass or axillary adenopathy. Left pacemaker BONES: No bone lesion or fracture. LIMITED ABDOMEN: Large hiatal hernia OTHER: Negative. CT/CT angio chest IMPRESSION: No central pulmonary thromboembolic disease Bilateral pleural effusions, increased from the prior exam Stable spiculated 3.4 cm left upper lobe mass with increase in satellite lesions up to 1.7 cm Electronically authenticated by: ALESHIA RUFF Date: 04/01/2024 09:41
--- NOTE | 2024-04-01 09:04 | P.PN_ITS ---
Progress Note: Subjective Subjective Interval history: Patient states he does feel better, but does still have significant oxygen supplementation requirement, up to a higher dose of Vapotherm Exam Constitutional Vital Signs, click to edit/add: Last Vital Signs Temp 97.6 F 04/01/24 07:54 Pulse 96 H 04/01/24 07:57 Resp 22 H 04/01/24 07:54 BP 161/77 H 04/01/24 07:54 Pulse Ox 92 L 04/01/24 07:54 O2 Del Method Vapotherm 04/01/24 07:54 O2 Flow Rate 40 04/01/24 07:54 FiO2 65 04/01/24 07:54 Documenting provider has reviewed patient's vital signs: yes Common normals: apparent distress (Mild conversational dyspnea with persistent cough-unchanged despite Vapothe) Chest Common normals: inspection of chest normal Respiratory Common normals: abnormal respiratory effort (Mild conversational dyspnea with co ugh throughout-persisting despite Vapoth) Effort & inspection: tachypneic Auscultation: rales (More pronounced today), rhonchi (Maybe some better air ex change), diminished lung sounds and egophony (Right lower lobe) Cardio Common normals: no JVD and regular rate GI Common normals: Normal to inspection, nondistended, normoactive bowel sounds present Extremity Common normals: abnormal to inspection (1+ edema) Progress Note: Objective Labs Labs: Short CBC 03/31/24 04/01/24 Range/Units 10:30 04:54 WBC 9.1 6.8 (4.0-11.0) 10^3/uL Hgb 13.8 L 13.5 L (14.0-18.0) g/dL Hct 44.6 44.5 (42.0-54.0) % Plt Count 174 166 (150-450) 10^3/uL BMP 03/31/24 04/01/24 10:30 04:54 Sodium 141 143 Potassium 4.6 4.7 Chloride 102 105 Carbon Dioxide 35.6 H 37.4 H BUN 31.0 H 35.0 H Creatinine 1.33 H 1.31 H Glucose 191 H 183 H Calcium 9.3 9.3 Liver Function 03/31/24 Range/Units 12:54 Total Bilirubin 1.1 H (0.2-1.0) mg/dL Direct Bilirubin 0.3 H (0.0-0.2) mg/dL AST 21 (15-37) U/L ALT 22 (16-63) U/L Alkaline Phosphatase 58 (46-116) U/L Albumin 3.4 (3.4-5.0) g/dL Urine 03/31/24 Range/Units 12:40 Urine Color Lt. 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-BNP high yesterday, will have more aggressive diuresis today utilizing Bumex drip Chronic kidney disease stage II-continue to monitor, elevated somewhat from base line Hypertension-uncontrolled on admission, IV medications as needed Iron deficiency anemia as well as anemia of chronic kidney disease-monitor daily Diabetes mellitus-insulin sliding scale, likely to be deteriorate based on steroids needed to treat the above Hypercholesterolemia continue current medications GERD-continue with home medications Atrial fibrillation-maintain anticoagulation Admission status: Patient with severe hypoxemia with a baseline O2 requirement of 3 L, is at 6 L and only maintaining 88 to 89%, this secondary to right lower lobe pneumonia, medically necessary treatment will span 2 midnights. Inpatient status.
[2024-04-01] MEDS: FISH OIL 1,000 MG CAPSULE 1000 MG PO (09:25)
[2024-04-01] MEDS: CARVEDILOL 12.5 MG TABLET PO ×2 (09:26→21:34)
[2024-04-01] MEDS: CANAGLIFLOZIN 100 MG TABLET PO (09:26)
[2024-04-01] MEDS: INSULIN ASPART 300 UNIT/3 ML PEN SUBQ ×4 (09:26→21:35)
[2024-04-01] MEDS: FERROUS SULFATE 325 MG TABLET PO (09:26)
[2024-04-01] MEDS: MULTIVITAMIN TABLET 1 TAB PO (09:26)
[2024-04-01] MEDS: LISINOPRIL 20 MG TABLET PO (09:26)
[2024-04-01] MEDS: GLIMEPIRIDE 2 MG TABLET PO (09:26)
[2024-04-01] MEDS: BUMETANIDE 10 MG in 0.9 % SODIUM CHLORIDE 160 ML 20 MG IV (09:27)
[2024-04-01] MEDS: CEFTRIAXONE 1,000 MG in 0.9 % SODIUM CHLORIDE 50 ML 100 MG IV (09:27)
[2024-04-01] MEDS: DORZOLAMIDE HCL 2%/TIMOLOL MALEATE 0.5% 200 DROP/10 ML BOTTLE OP ×2 (09:32→21:34)
--- NOTE | 2024-04-01 09:35 | CM.NOTE ---
Rounds made with Dr. Sahu, pt on vapotherm Rn will continues to wean as tolerated. No discharge today. Pt does wear home oxygen @3L NC.
--- NOTE | 2024-04-01 09:53 | CM.NOTE ---
Important Message From Medicare discussed with pt, pt verbalizes understanding and signs paper. Original given to pt and copy placed on pt's chart.
[2024-04-01] MEDS: SODIUM CHLORIDE 0.9% INHALATION 3 ML NEB 6 ML IH (10:51)
--- NOTE | 2024-04-01 11:04 | RESP.RT ---
sterile water changed on vapotherm
[2024-04-01 11:40] LABS: Glucometer 264 mg/dL (74-106)
--- NOTE | 2024-04-01 12:13 | REH.PTDLY ---
Physical Therapy Daily Note PT Daily Note/Assess Start: 04/01/24 12:09 Freq: Status: Active Protocol: Document 04/01/24 12:09 CHANDRA (Rec: 04/01/24 12:13 [id number] Physical Therapy Daily Note/Assessment Time In 11:58 Time Out 12:08 Subjective Pt sitting bedside upon arrival, just finishing lunch. Agreeable to PT. No current complaints. On 65% vapotherm currently. Nursing just exiting room. Therapeutic Exercise 8 Minutes (minutes) Therapeutic Exercise 1 Units Therapeutic Exercise Instructed in standing B LE exs 8-10x ea for improved Treatment strength with UE support. Exs included HR, mini squats, and marching. Seated B LE LAQ, marching, hip abd 10x ea. Sit to stand transfers 5x in a row for leg strength from bedside. spO2 at 91% Therapeutic Activity 2 Minutes (minutes) Therapeutic Activity 0 Units Therapeutic Activity Gait with no AD taking 3 steps forward and 3 steps back Comments 6x CGA. Pt SpO2 is at 92%. Limited by vapotherm today with gait distance. Total Therapy 10 Minutes Total Physical 1 Therapy Units Daily Note Summary Pt does well with sit to stand transfers. Minimal SOB noted while performing exs on vapotherm, denies pain. Some fatigue noted post rx. Pt plan is to go home with at [place].
--- NOTE | 2024-04-01 13:53 | SWNOTE1 ---
SW met with pt to discuss dc needs. Pt's in room as well. Pt is current with Surya BROWN, only a nurse at this time. Pt does wear home oxygen at 3 liters and we set it up in January. It is from [facility]. Pt is independent when walking. Pt and have no concerns at this time about discharge. SW to follow as needed.
[2024-04-01 16:25] LABS: Glucometer 207 mg/dL (74-106)
[2024-04-01] MEDS: RIVAROXABAN 10 MG TABLET 20 MG PO (17:22)
[2024-04-01 19:51] LABS: Glucometer 218 mg/dL (74-106)
[2024-04-01] MEDS: ATORVASTATIN CALCIUM 40 MG TABLET 80 MG PO (21:34)
[2024-04-01] MEDS: LATANOPROST 0.005% 2.5 ML BOTTLE 1 DROP OP (21:35)
[2024-04-02] VITALS (23 sets, daily range): BP systolic 118–148; BP diastolic 69–80; PULSE 69–119; TEMP 36.4–36.8; O2SAT 65–96
[2024-04-02] MEDS: IPRATROPIUM/ALBUTEROL SULFATE 3 ML AMPUL.NEB IH ×4 (04:54→23:08)
[2024-04-02 05:29] LABS: Basophils Percent Auto 0.1 % (0.2-2.0); Hemoglobin 13.8 g/dL (14.0-18.0); Immature Granulocytes Pct Auto 0.6 % (0.0-0.5); Lymphocytes Absolute Auto 0.2 10^3/uL (1.2-3.8); Lymphocytes Percent Auto 1.2 % (20.5-60.0); Mean Corpuscular Volume 96.6 fL (80.0-94.0); Mean Platelet Volume 10.6 fL (9.5-13.5); Monocytes Absolute Auto 0.3 10^3/uL (0.3-0.8); Monocytes Percent Auto 2.1 % (1.7-12.0); Neutrophils Absolute Auto 15.7 10^3/uL (1.4-6.5); Platelet Count 171 10^3/uL (150-450); Red Blood Count 4.76 10^6/uL (4.70-6.10); Red Cell Distribution Width 16.3 % (11.0-15.0); White Blood Count 16.3 10^3/uL (4.0-11.0)
[2024-04-02 05:42] LABS: BUN Creatinine Ratio 34.9; Calcium 9.3 mg/dL (8.5-10.1); Carbon Dioxide 37.7 mmol/L (21.0-32.0); Chloride 105 mmol/L (98-107); Estimated GFR (African America >60 (>=60 mL/min/1.73m^2); Estimated GFR (Non-African Ame 53 (>=60 mL/min/1.73m^2); Glucose 172 mg/dL (74-106); Potassium 3.7 mmol/L (3.5-5.1); Sodium 146 mmol/L (136-145)
[2024-04-02] MEDS: OMEPRAZOLE 40 MG CAPSULE.DR PO (05:42)
[2024-04-02] MEDS: METHYLPREDNISOLONE SOD SUCC PF 125 MG/2 ML VIAL IVP (05:42)
[2024-04-02 07:56] LABS: Glucometer 203 mg/dL (74-106)
[2024-04-02] MEDS: INSULIN ASPART 300 UNIT/3 ML PEN SUBQ ×3 (08:37→21:19)
--- NOTE | 2024-04-02 08:45 | CM.NOTE ---
Rounds made with Dr. Sahu. Dr. Sahu reviews results with Mr. Dawn. Plan for [employer]. Hortensia gtt today.
[2024-04-02] MEDS: PIPERACILLIN SODIUM/TAZOBACTAM 3.375 GM in 0.9 % SODIUM CHLORIDE 50 ML IV ×2 (08:46→16:43)
[2024-04-02] MEDS: BUMETANIDE 10 MG in 0.9 % SODIUM CHLORIDE 160 ML IV (08:47)
[2024-04-02] MEDS: MULTIVITAMIN TABLET 1 TAB PO (08:57)
[2024-04-02] MEDS: FISH OIL 1,000 MG CAPSULE 1000 MG PO (08:57)
[2024-04-02] MEDS: DORZOLAMIDE HCL 2%/TIMOLOL MALEATE 0.5% 200 DROP/10 ML BOTTLE OP ×2 (08:57→21:18)
[2024-04-02] MEDS: CARVEDILOL 12.5 MG TABLET PO ×2 (08:58→21:18)
[2024-04-02] MEDS: GLIMEPIRIDE 2 MG TABLET PO (08:58)
[2024-04-02] MEDS: FERROUS SULFATE 325 MG TABLET PO (08:58)
[2024-04-02] MEDS: LISINOPRIL 20 MG TABLET PO (08:58)
[2024-04-02] MEDS: CANAGLIFLOZIN 100 MG TABLET PO (08:58)
--- NOTE | 2024-04-02 08:58 | REH.PTDLY ---
Physical Therapy Daily Note PT Daily Note/Assess Start: 04/01/24 12:09 Freq: Status: Active Protocol: Document 04/02/24 08:51 CHANDRA (Rec: 04/02/24 08:58 [id number] Physical Therapy Daily Note/Assessment Time In 08:14 Time Out 08:24 Subjective Pt sitting bedside, just waiting on breakfast to come. Agreeable to therapy. Denies any complaints this morning. Still on 65% vapotherm. Therapeutic Exercise 8 Minutes (minutes) Therapeutic Exercise 1 Units Therapeutic Exercise Seated exs 10x ea with cues for pt to perform at slower Treatment pace. Exs included LAQ, marching, hip abd step outs, hip add squeeze. Standing exs with UE support 10x ea with HR, marching, and mini squats for strength training. SpO2 at 85% rising quickly to 92% once pt focused on breathing techniques. Sit to stand 5x in a row from low bed with no UE support. Standing feet together raising arms up in the air 10x wtih no LOB either. Therapeutic Activity 2 Minutes (minutes) Therapeutic Activity 0 Units Therapeutic Activity Gait with no AD taking 3 steps forward and 3 steps Comments backwards 7x with no LOB. O2 sats drop to 83% initially when read, but rises quickly to 95%. Total Therapy 10 Minutes Total Physical 1 Therapy Units Daily Note Summary Pt does well with exs and short distance gait that is allotted with vapotherm. SpO2 does drop with increased activity on vapotherm, but rises quickly. Continue to progress as pt is able.
--- NOTE | 2024-04-02 09:10 | P.PN_ITS ---
Progress Note: Subjective Subjective Interval history: States his breathing continues to feel better despite numbers to the contrary Exam Constitutional Vital Signs, click to edit/add: Last Vital Signs Temp 97.9 F 04/02/24 08:02 Pulse 87 04/02/24 08:02 Resp 11 L 04/02/24 08:02 BP 134/80 04/02/24 08:02 Pulse Ox 89 L 04/02/24 08:02 O2 Del Method Nasal Cannula 04/02/24 08:02 O2 Flow Rate 40 04/02/24 04:54 FiO2 65 04/02/24 04:54 Documenting provider has reviewed patient's vital signs: yes Common normals: apparent distress (Mild conversational dyspnea with persistent cough-unchanged despite Vapothe) Chest Common normals: inspection of chest normal Respiratory Common normals: abnormal respiratory effort (A better than previous day) Effort & inspection: tachypneic Auscultation: rales (More pronounced today), rhonchi (Persisting), diminished lung sounds and egophony (Right lower lobe) Cardio Common normals: no JVD and regular rate GI Common normals: Normal to inspection, nondistended, normoactive bowel sounds present Extremity Common normals: abnormal to inspection (1+ edema) Progress Note: Objective Labs Labs: Short CBC 04/02/24 Range/Units 05:17 WBC 16.3 H (4.0-11.0) 10^3/uL Hgb 13.8 L (14.0-18.0) g/dL Hct 46.0 (42.0-54.0) % Plt Count 171 (150-450) 10^3/uL BMP 04/02/24 05:17 Sodium 146 H Potassium 3.7 Chloride 105 Carbon Dioxide 37.7 H BUN 45.0 H Creatinine 1.29 Glucose 172 H Calcium 9.3 Progress Note: A&P Assessment and Plan (1) Pneumonia: (2) Acute on chronic systolic (congestive) heart failure: (3) Hypoxia: (4) COPD (chronic obstructive pulmonary disease): (5) Atrial fibrillation: (6) Diabetes mellitus: (7) Hypertension: Plan Admission findings: Severe hypoxia with O2 sat in the 70s, on his normal 3 L, only an 88%-89 on 6 L. Normal white blood cell count but significant left shift consistent with bacterial process, chest x-ray consistent with right lower lobe pneumonia Acute hypoxic respiratory failure requiring high flow oxygen supplementation on top of chronic hypoxic respiratory failure requiring 3 L of supplemental oxygen at home due to acute exacerbation of COPD secondary to right lower lobe pneumonia, with significant hypoxia, left shift on white blood cell count consistent with bacterial process-steroids, aerosols, try IPV's, IV antibiotics, try to obtain sputum culture, blood cultures pending-maintain current treatment plan, patient not significantly improved in the last couple days, will consult to pulmonology Chest mass-plan is for biopsy next week, if he can stabilize we can still accomplish that 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-BNP high yesterday, repeat diuresis, Chronic kidney disease stage II-continue to monitor, improved Hypertension-uncontrolled on admission, IV medications as needed Iron deficiency anemia as well as anemia of chronic kidney disease-monitor daily Diabetes mellitus-insulin sliding scale, likely to be deteriorate based on steroids needed to treat the above Hypercholesterolemia continue current medications GERD-continue with home medications Atrial fibrillation-maintain anticoagulation Admission status: Patient with severe hypoxemia with a baseline O2 requirement of 3 L, is at 6 L and only maintaining 88 to 89%, this secondary to right lower lobe pneumonia, medically necessary treatment will span 2 midnights. Inpatient status.
--- NOTE | 2024-04-02 09:14 | XR_ITS ---
The [address] [address] Patient Name: KHADAR RAMOS MRN: [id number] date: 1940 Sex: M Assigned Patient Location: [place] Current Patient Location: [place] Accession/Order Number: [id number] Exam Date: 04/02/2024 09:30 Report Date: 04/02/2024 09:58 At the request of: JOSY DELACRUZ Procedure: XR chest 2V EXAMINATION: XR chest 2V HISTORY: follow up pleural effusions COMPARISON: XR chest 03/31/2024 FINDINGS: LUNGS: Increased opacities within lung bases obscuring the diaphragm margins; right greater than left. VASCULATURE: No increased pulmonary vasculature. PLEURA: Bilateral pleural effusions. CARDIAC: Stable cardiomegaly. Cardiac pacer/AICD. MEDIASTINUM: No visible mass or adenopathy. BONES: No fracture or visible bone lesion. OTHER: Negative. XR/XR chest 2V IMPRESSION: 1. Moderate right, mild left basilar infiltrates suggestive of pneumonia versus atelectasis. Findings have increased compared to 2 days ago. 2. Suspect bilateral pleural effusions; small to moderate. Electronically authenticated by: SHANITA MORRIS Date: 04/02/2024 09:58
--- NOTE | 2024-04-02 10:04 | SWNOTE1 ---
AB sent updates to [facility], updates included face sheet, ED note, H&P, physician notes, and PT/OT notes.
[2024-04-02] MEDS: METHYLPREDNISOLONE SOD SUCC PF 125 MG/2 ML VIAL 60 MG IVP ×2 (12:23→17:33)
[2024-04-02] MEDS: LEVOFLOXACIN IN DEXTROSE 5 % 750 MG/150 ML PREMIX 100 MG IV (13:56)
--- NOTE | 2024-04-02 14:54 | OT.DAILY ---
Occupational Therapy Daily Note OT Inpatient Daily Visit Note Start: 03/31/24 16:05 Freq: Status: Active Protocol: Document 04/02/24 14:50 [id number] (Rec: 04/02/24 14:54 [id number]) Visit Not Completed Visit Not Completed Visit Not Completed Other Due to: Other Reason Visit Pt remains on Vapotherm 40L NC. O2 drops with exertion. Not Completed OT Visit Details Time In/Time Out Time In 02:40 Time Out 02:42 GG. Functional Abilities and Goals-Complete for Swing Bed Patients Only [id number]. Self-Care [id number]. Mobility
[2024-04-02 16:24] LABS: Glucometer 280 mg/dL (74-106)
[2024-04-02] MEDS: SODIUM CHLORIDE 0.9% INHALATION 3 ML NEB 6 ML IH (16:42)
[2024-04-02] MEDS: RIVAROXABAN 10 MG TABLET 20 MG PO (16:48)
--- NOTE | 2024-04-02 18:54 | P.PLCN_ITS ---
History of Present Illness History of Present Illness Consult date: 04/02/24 Requesting physician: Jaxon Sahu Reason for consult: abnormal CXR/CT Chief complaint: LOW OXYGEN PNEUMONIA HYPOXEMIA Narrative: Patient was seen by me on 01/14/2024 inpatient.? Please refer to that note for further data.? He was found to have a 3.4cm spiculated OUMAR mass on chest CTA 01/11/2024.? Given the location and high risk for complications, I recommended r mina to interventional pulmonology for a biopsy. ?Before the referral, he had a PET on 02/18/2024 which was positive: the suspicious mass had SUV of 11.8; there were also several satellite lesions that were FDG avid, along with bilateral apical GGO suspicious for either interstitial edema vs. lymphangitic carcinomatosis, a RML density with SUV 3.1, and positive mediastinal and left fissural lymph nodes.? He saw Dr. Chandra on 03/20/2024 for evaluation ? I reviewed Dr. Chandra?s office note.? He too felt the patient?s multiple medical issues placed him at a high risk of perioperative complications and suggested a CT-guided biopsy would be the safer initial approach, with robotic-assisted bronchoscopy if CT-guided biopsy was not felt to be an option. He presented to [facility] ER on 03/31/2024 with worsening dyspnea and hypoxemia, with SpO2 readings at home in the 70?s despite using O2 @ 3L/min (which was his baseline since discharge in January - ?previously was on room air prior to that admission).? He was placed on Vapotherm and has remained on it, though they have been able to titrate down his FiO2 to 55% today. He states that he did not feel ill as with a bronchitis or pneumonia. His lower extremities were developing edema around that time. The edema improved when he laid down to sleep, but then could not breathe well when he awoke. Denies any fevers, chills, or sweats. Another chest CT 04/01/2024 was completed.? When compared to 01/11/2024, it noted the original OUMAR mass was stable at 3.4cm. However, there has been an interval increase in number and size of OUMAR satellite lesions, largest at 1.7cm and also spiculated.? There was also partial consolidation of both lower lobes likely passive atelectasis and an slight increase in bilateral effusions, R > L. The largest satellite lesion was also FDG positive on PET 02/18/2024.? A CXR this AM (04/02/2024) appeared to have increased R > L basilar infiltrates suggestive of pneumonia versus atelectasis compared to 03/31/2024.? I personally reviewed all these images. He states he was not informed of the most recent chest CT findings - I discussed them with the patient and his . He has been started on a Bumex gtt today. He states he is beginning to feel better at this time. He has been able to transition from Vapotherm to traditional nasal cannula at 6L/min at this time; he states the dyspnea is controlled. Review of Systems ROS Status of ROS 10 or more systems reviewed and unremark able except as noted in history and below [facility] Medical History (Updated 03/31/24 @ 13:37 by Pepper Hanna) Acute on chronic systolic (congestive) heart failure ?I50.23 - Acute on chronic systolic (congestive) heart failure (ICD-10) Hypoxia ?R09.02 - Hypoxemia (ICD-10) COPD (chronic obstructive pulmonary disease) ?J44.9 - Chronic obstructive pulmonary disease, unspecified (ICD-10) Congestive heart failure ?I50.9 - Heart failure, unspecified (ICD-10) Hematuria ?R31.9 - Hematuria, unspecified (ICD-10) Atrial fibrillation ?I48.91 - Unspecified atrial fibrillation (ICD-10) CHF (congestive heart failure) ?I50.9 - Heart failure, unspecified (ICD-10) Diabetes mellitus ?E11.9 - Type 2 diabetes mellitus without complications (ICD-10) Hypertension ?I10 - Essential (primary) hypertension (ICD-10) Prostate cancer ?C61 - Malignant neoplasm of prostate (ICD-10) Surgical History (Updated 03/31/24 @ 13:37 by Pepper Hanna) Pacemaker ?Z95.0 - Presence of cardiac pacemaker (ICD-10) H/O hernia repair ?Z98.890 - Other specified postprocedural states (ICD-10) ?Z87.19 - Personal history of other diseases of the digestive system (ICD-10) H/O heart artery stent ?Z95.5 - Presence of coronary angioplasty implant and graft (ICD-10) Family History Father Family history of myocardial infarction Family history of CHF (congestive heart failure) Brother Family history of CHF (congestive heart failure) Family history of hypertension Sister Family history of cancer Social History (Updated 03/31/24 @ 13:38 by Pepper Hanna) Within the past year, how often did you have a drink containing alcohol: never Within the past year, how often did you have six or more drinks on one occasion: never Score interpretation: A score less than 4 is consistent with normal alcohol consumption. Smoking status: Former smoker Non-prescribed substance use: denies use Previous occupational history: retired Highest level of school completed/degree received: high school graduate Are you now , , , , never or living with a partner: In a typical week, how many times do you talk on the telephone with family, friends, or neighbors: 3 or more times per week How often do you get together with friends or relatives: 3 or more times per week How often do you attend muslim or taoist services: 4 or more times per year Do you belong to any clubs or organizations such as muslim groups unions, [employer] or athletic groups, or school groups: no Total score: 3 Score interpretation: A score of greater than or equal to 2 indicates the lowest level of social isolation. Little interest or pleasure in doing things: not at all Feeling down, depressed, or hopeless: not at all Feel stressed/tense/nervous/anxious/difficulty sleeping: not at all Do you think of yourself as: straight/heterosexual Gender Identity: male Meds Home Medications and Allergies Home Medications ?Medication ?Instructions ?Recorded ?Confirmed ?Type atorvastatin 80 mg tablet 80 mg PO DAILY 09/23/22 03/31/24 History carvedilol 12.5 mg tablet 25 mg PO Q12H 09/23/22 04/01/24 History ferrous sulfate 325 mg (65 mg 325 mg PO DAILY 09/23/22 03/31/24 History iron) tablet furosemide 20 mg tablet 20 mg PO BID 09/23/22 03/31/24 History metformin 500 mg tablet 500 mg PO BID 09/23/22 03/31/24 History pantoprazole 40 mg tablet,delayed 40 mg PO DAILY 09/23/22 03/31/24 History release rivaroxaban 20 mg tablet (Xarelto) 20 mg PO DAILY 09/23/22 03/31/24 History dorzolamide 22.3 mg-timolol 6.8 1 drp ophthalmic (eye) BID 01/10/24 03/31/24 History mg/mL eye drops empagliflozin 10 mg tablet 10 mg PO DAILY 01/10/24 03/31/24 History (Jardiance) latanoprost 0.005 % eye drops 1 drp ophthalmic (eye) .qhs 01/10/24 03/31/24 History multivitamin (Daily Multi-Vitamin 1 tab PO DAILY 01/10/24 03/31/24 History tablet) omega 6-qnt-iej-fish oil 300 1 cap PO DAILY 01/10/24 03/31/24 History mg-1,000 mg capsule (Fish Oil) albuterol sulfate 90 mcg/actuation 2 inh inhalation Q6H PRN shortness 01/16/24 03/31/24 Rx aerosol inhaler (Ventolin HFA) of breath or wheezing #8.5 grams benazepril 20 mg tablet 20 mg PO DAILY 03/31/24 03/31/24 History glimepiride 2 mg tablet 1 mg PO DAILY 03/31/24 04/01/24 History Allergies Allergy/AdvReac Type Severity Reaction Status Date / Time No Known Drug Allergies Allergy Verified 09/23/22 06:49 Exam Constitutional Vital Signs, click to edit/add: Last Vital Signs Temp 98.2 F 04/02/24 15:33 Pulse 96 H 04/02/24 17:55 Resp 18 04/02/24 16:59 BP 148/72 H 04/02/24 15:33 Pulse Ox 94 L 04/02/24 17:15 O2 Del Method Nasal Cannula 04/02/24 17:15 O2 Flow Rate 6 04/02/24 17:15 FiO2 55 04/02/24 16:59 Common normals: no apparent distress HENMT Other: Wearing nasal cannula Respiratory Other: Diminished breath sounds bilaterally, dullness and mild egophony in the right base > left. A few scattered crackles. No wheezes. Cardio Other: Irregularly irregular, rate controlled Neuro Other: No fasciculations or tremors Psych Other: Appropriate affect Results Laboratory Findings Abnormal lab findings: Abnormal Labs 03/31/24 03/31/24 03/31/24 10:30 12:40 12:54 WBC RBC 4.59 L Hgb 13.8 L MCV 97.2 H RDW 16.3 H Neut % (Auto) 82.6 H Lymph % (Auto) 4.7 L Eos % (Auto) Baso % (Auto) Neut # (Auto) 7.5 H Lymph # (Auto) 0.4 L Abs Immat Gran (auto) 0.04 H Seg Neuts % (Manual) Lymphocytes % (Manual) Monocytes % (Manual) Eosinophils % (Manual) Basophils % (Manual) Imm/Tot Granulo (auto) Neutrophils # (Manual) Lymphocytes # (Manual) Monocytes # (Manual) Sodium Carbon Dioxide 35.6 H BUN 31.0 H Creatinine 1.33 H Est GFR (Non-Af Amer) 51 L Glucose 191 H Total Bilirubin 1.1 H Direct Bilirubin 0.3 H NT-Pro-B Natriuret Pep 4704.0 H* Total Protein 6.3 L Urine Glucose (UA) >=1000 A POC Glucose 03/31/24 03/31/24 04/01/24 17:02 21:17 04:54 WBC RBC 4.60 L Hgb 13.5 L MCV 96.7 H RDW 16.1 H Neut % (Auto) Lymph % (Auto) Eos % (Auto) Baso % (Auto) Neut # (Auto) Lymph # (Auto) Abs Immat Gran (auto) Seg Neuts % (Manual) 98.0 H Lymphocytes % (Manual) 1.0 L Monocytes % (Manual) 0.0 L Eosinophils % (Manual) 0.0 L Basophils % (Manual) 0.0 L Imm/Tot Granulo (auto) Neutrophils # (Manual) 6.66 H Lymphocytes # (Manual) 0.06 L Monocytes # (Manual) 0.00 L Sodium Carbon Dioxide 37.4 H BUN 35.0 H Creatinine 1.31 H Est GFR (Non-Af Amer) 52 L Glucose 183 H Total Bilirubin Direct Bilirubin NT-Pro-B Natriuret Pep 4052.0 H* Total Protein Urine Glucose (UA) POC Glucose 135 H 148 H 04/01/24 04/01/24 04/01/24 11:40 16:24 19:50 WBC RBC Hgb MCV RDW Neut % (Auto) Lymph % (Auto) Eos % (Auto) Baso % (Auto) Neut # (Auto) Lymph # (Auto) Abs Immat Gran (auto) Seg Neuts % (Manual) Lymphocytes % (Manual) Monocytes % (Manual) Eosinophils % (Manual) Basophils % (Manual) Imm/Tot Granulo (auto) Neutrophils # (Manual) Lymphocytes # (Manual) Monocytes # (Manual) Sodium Carbon Dioxide BUN Creatinine Est GFR (Non-Af Amer) Glucose Total Bilirubin Direct Bilirubin NT-Pro-B Natriuret Pep Total Protein Urine Glucose (UA) POC Glucose 264 H 207 H 218 H 04/02/24 04/02/24 04/02/24 05:17 07:53 16:23 WBC 16.3 H RBC Hgb 13.8 L MCV 96.6 H RDW 16.3 H Neut % (Auto) 96.0 H Lymph % (Auto) 1.2 L Eos % (Auto) 0.0 L Baso % (Auto) 0.1 L Neut # (Auto) 15.7 H Lymph # (Auto) 0.2 L Abs Immat Gran (auto) 0.10 H Seg Neuts % (Manual) Lymphocytes % (Manual) Monocytes % (Manual) Eosinophils % (Manual) Basophils % (Manual) Imm/Tot Granulo (auto) 0.6 H Neutrophils # (Manual) Lymphocytes # (Manual) Monocytes # (Manual) Sodium 146 H Carbon Dioxide 37.7 H BUN 45.0 H Creatinine Est GFR (Non-Af Amer) 53 L Glucose 172 H Total Bilirubin Direct Bilirubin NT-Pro-B Natriuret Pep 5161.0 H* Total Protein Urine Glucose (UA) POC Glucose 203 H 280 H Assessment and Plan Assessment and Plan (1) Acute on chronic systolic (congestive) heart failure: Assessment and Plan: 1. Acute on chronic systolic congestive heart failure. ?Clinically suspect CHF over pneumonia ? there was no leukocytosis on admission nor any fever. ?There is a leukocytosis now, but that can be explained by systemic steroids; this is similar to prior admission January 2024.? Patient states that this admission was preceded by increased edema, and he did not feel ill such as a bronchitis. ?BNP today is now 5161; it was 4704 upon presentation 03/31/2024, and the highest it ever was prior admission in January 2024 was 3334 ? this is in the presence of stable renal function.? He does have a large dilated esophagus with retained fluid/debris along with a hiatal hernia ? possible he may also have recurrent aspiration. 2. Left upper lobe lung mass 3.4cm, originally identified on CTA 01/11/2024, FDG positive on 02/18/2024 along with satellite lesions and mediastinal lymph nodes, now with increased size and number of the satellite lesions on CTA 04/01/2024.? This is cancer until proven otherwise and appears to be growing/spreading over the past 2.5 months. He has already seen Dr. Chandra (interventional pulmonology) on 03/20/2024 who recommended an attempt at a CT-guided biopsy first d/t his multiple co-morbidities. 3. Acute on chronic hypoxic respiratory failure. Secondary to CHF exacerbation, +/- contribution from presumptive lung cancer.? On room air until admission 01/2024, new baseline 3L/min O2 ATC, now requiring Vapotherm.? 4. Bilateral pleural effusions.? Suspect primarily secondary to CHF, but cannot rule out malignant effusion.? They are slightly increased from 01/10/2025.? The risks outweigh benefits of a thoracentesis at this time: the left effusion is small, he would need to stop anticoagulation, and he is at a higher risk for a pneumothorax given underlying emphysema. 5. Centrilobular emphysema.? He was to be on Trelegy outpatient according to Dr. Chandra, but it is not listed on his home medications. 6. History of tobacco abuse. Patient's age is outside the current recommendations for LDCT screening.
[2024-04-02 21:07] LABS: Glucometer 289 mg/dL (74-106)
[2024-04-02] MEDS: ATORVASTATIN CALCIUM 40 MG TABLET 80 MG PO (21:18)
[2024-04-02] MEDS: LATANOPROST 0.005% 2.5 ML BOTTLE 1 DROP OP (21:18)
[2024-04-03] VITALS (28 sets, daily range): BP systolic 103–152; BP diastolic 65–91; PULSE 73–134; TEMP 36.3–36.7; O2SAT 85–96
--- NOTE | 2024-04-03 00:11 | RESP.RT ---
Patient refused IPV. Just woke up and wanting to go back to sleep
[2024-04-03] MEDS: PIPERACILLIN SODIUM/TAZOBACTAM 3.375 GM in 0.9 % SODIUM CHLORIDE 50 ML IV ×3 (01:06→17:11)
[2024-04-03] MEDS: METHYLPREDNISOLONE SOD SUCC PF 125 MG/2 ML VIAL 60 MG IVP ×4 (01:06→21:12)
[2024-04-03] MEDS: IPRATROPIUM/ALBUTEROL SULFATE 3 ML AMPUL.NEB IH ×4 (04:31→23:15)
[2024-04-03] MEDS: OMEPRAZOLE 40 MG CAPSULE.DR PO (05:32)
--- NOTE | 2024-04-03 06:06 | PM.PLPN ---
Progress Note: A&P Assessment and Plan (1) Acute on chronic systolic (congestive) heart failure: Assessment and Plan: 1. Acute on chronic systolic congestive heart failure. ?Good diuresis, still requiring O2. Cannot completely R/O pneumonia - WBC 17.7k, but this can be from neutrophil demargination from steroids; continue antibiotics (Zosyn/Levaquin). 2. Left upper lobe lung mass 3.4cm, originally identified on CTA 01/11/2024, FDG positive on 02/18/2024 along with satellite lesions and mediastinal lymph nodes, now with increased size and number of the satellite lesions on CTA 04/01/2024.? Patient needs biopsy for official diagnosis to get treated - see note from 04/02/2024 for details. 3. Acute on chronic hypoxic respiratory failure. Secondary to CHF exacerbation, +/- contribution from presumptive lung cancer.? 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 4. Bilateral pleural effusions.? Most consistent with CHF. Continue diuresis. 5. Centrilobular emphysema.? 6. History of tobacco abuse. Subjective Subjective Interval history: Patient states his breathing is doing a little better. BLE edema has decreased some with Bumex gtt. I/O - 1775mL. Went back on Vapotherm overnight. Exam Constitutional Vital Signs, click to edit/add: Last Vital Signs Temp 97.5 F L 04/03/24 03:50 Pulse 75 04/03/24 04:31 Resp 16 04/03/24 04:31 BP 111/66 04/03/24 03:50 Pulse Ox 90 L 04/03/24 04:31 O2 Del Method Vapotherm 04/03/24 04:31 O2 Flow Rate 30 04/03/24 04:31 FiO2 55 04/03/24 04:31 Other: Laying in bed, no respiratory distress, using 1 pillow. HENMT Other: Wearing nasal cannula Respiratory Other: Essentially unchanged breath sounds - diminished, decreased R > L. No wheezes. Cardio Other: Irregularly irregular, rate controlled Extremity Other: Mild BLE pitting posterior legs Neuro Other: No fasciculations or tremors Psych Other: Appropriate affect
[2024-04-03 06:33] LABS: Basophils Percent Auto 0.1 % (0.2-2.0); Hematocrit 43.4 % (42.0-54.0); Hemoglobin 13.2 g/dL (14.0-18.0); Immature Granulocytes Abs Auto 0.12 10^3/uL (0.00-0.03); Immature Granulocytes Pct Auto 0.7 % (0.0-0.5); Lymphocytes Absolute Auto 0.2 10^3/uL (1.2-3.8); Lymphocytes Percent Auto 1.2 % (20.5-60.0); Mean Corpuscular HGB Conc 30.4 g/dL (29.9-35.2); Mean Corpuscular Hemoglobin 29.2 pg (25.9-34.0); Mean Platelet Volume 11.4 fL (9.5-13.5); Monocytes Absolute Auto 0.6 10^3/uL (0.3-0.8); Monocytes Percent Auto 3.2 % (1.7-12.0); Neutrophils Absolute Auto 16.7 10^3/uL (1.4-6.5); Neutrophils Percent Auto 94.8 % (43.0-75.0); Platelet Count 169 10^3/uL (150-450); Red Blood Count 4.52 10^6/uL (4.70-6.10); Red Cell Distribution Width 16.4 % (11.0-15.0); White Blood Count 17.7 10^3/uL (4.0-11.0)
[2024-04-03 07:02] LABS: Anion Gap 3.1; BUN Creatinine Ratio 36.4; Calcium 9.2 mg/dL (8.5-10.1); Carbon Dioxide 43.9 mmol/L (21.0-32.0); Chloride 106 mmol/L (98-107); Estimated GFR (African America >60 (>=60 mL/min/1.73m^2); Estimated GFR (Non-African Ame 52 (>=60 mL/min/1.73m^2); Glucose 100 mg/dL (74-106); Sodium 150 mmol/L (136-145)
[2024-04-03 07:28] LABS: Glucometer 129 mg/dL (74-106)
[2024-04-03] MEDS: GLIMEPIRIDE 2 MG TABLET PO (09:25)
[2024-04-03] MEDS: LISINOPRIL 20 MG TABLET PO (09:25)
[2024-04-03] MEDS: METFORMIN HCL 500 MG TABLET PO ×2 (09:25→17:11)
[2024-04-03] MEDS: CARVEDILOL 12.5 MG TABLET PO ×2 (09:25→21:12)
[2024-04-03] MEDS: FISH OIL 1,000 MG CAPSULE 1000 MG PO (09:25)
[2024-04-03] MEDS: FERROUS SULFATE 325 MG TABLET PO (09:25)
[2024-04-03] MEDS: MULTIVITAMIN TABLET 1 TAB PO (09:25)
[2024-04-03] MEDS: CANAGLIFLOZIN 100 MG TABLET PO (09:25)
[2024-04-03] MEDS: DORZOLAMIDE HCL 2%/TIMOLOL MALEATE 0.5% 200 DROP/10 ML BOTTLE OP ×2 (09:27→21:14)
[2024-04-03] MEDS: 0.9 % SODIUM CHLORIDE 250 ML 10 ML IV (09:34)
--- NOTE | 2024-04-03 09:35 | CM.NOTE ---
Rounds made with Dr. Sahu, pt remains on vapotherm. Rn will continue to wean oxygen as tolerated. No discharge today.
--- NOTE | 2024-04-03 10:16 | P.PN_ITS ---
Progress Note: Subjective Subjective Interval history: Patient continues today his breathing feels better, he does have less O2 requirement down to 50% on his Vapotherm Exam Constitutional Vital Signs, click to edit/add: Last Vital Signs Temp 97.4 F L 04/03/24 07:54 Pulse 134 H 04/03/24 09:51 Resp 18 04/03/24 07:54 BP 152/75 H 04/03/24 07:54 Pulse Ox 90 L 04/03/24 09:51 O2 Del Method Vapotherm 04/03/24 07:54 O2 Flow Rate 5.5 04/03/24 07:54 FiO2 55 04/03/24 04:31 Documenting provider has reviewed patient's vital signs: yes Common normals: apparent distress (Mild conversational dyspnea with persistent cough-stable) Chest Common normals: inspection of chest normal Respiratory Common normals: abnormal respiratory effort (Stable) Effort & inspection: tachypneic Auscultation: rales (More pronounced today), rhonchi (Persisting), diminished lung sounds and egophony (Right lower lobe) Cardio Common normals: no JVD and regular rate GI Common normals: Normal to inspection, nondistended, normoactive bowel sounds present Extremity Common normals: abnormal to inspection (1+ edema) Progress Note: Objective Labs Labs: Short CBC 04/03/24 Range/Units 05:44 WBC 17.7 H (4.0-11.0) 10^3/uL Hgb 13.2 L (14.0-18.0) g/dL Hct 43.4 (42.0-54.0) % Plt Count 169 (150-450) 10^3/uL BMP 04/03/24 05:44 Sodium 150 H Potassium 3.0 L Chloride 106 Carbon Dioxide 43.9 H BUN 48.0 H Creatinine 1.32 H Glucose 100 Calcium 9.2 Progress Note: A&P Assessment and Plan (1) Acute on chronic systolic (congestive) heart failure: (2) Pneumonia: (3) Hypoxia: (4) COPD (chronic obstructive pulmonary disease): (5) Atrial fibrillation: (6) Diabetes mellitus: (7) Hypertension: Plan Admission findings: Severe hypoxia with O2 sat in the 70s, on his normal 3 L, only an 88%-89 on 6 L. Normal white blood cell count but significant left shift consistent with bacterial process, chest x-ray consistent with right lower lobe pneumonia Acute hypoxic respiratory failure requiring high flow oxygen supplementation on top of chronic hypoxic respiratory failure requiring 3 L of supplemental oxygen at home due to acute exacerbation of COPD secondary to right lower lobe pneumonia, with significant hypoxia, left shift on white blood cell count consistent with bacterial process-steroids, aerosols, try IPV's, IV antibiotics, try to obtain sputum culture, blood cultures pending-check on sputum cultures, so far somewhat improved compared to previous day with less supplemental oxygen requirement as he is under 50% on his Vapotherm Chest mass-plan is for biopsy next week, if he can stabilize we can still accomplish that 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-BNP high yesterday, did have good diuresis yesterday, repeat Bumex again today, BNP is finally improving Chronic kidney disease stage II-continue to monitor, improved Hypertension-uncontrolled on admission, IV medications as needed Iron deficiency anemia as well as anemia of chronic kidney disease-monitor daily Diabetes mellitus-insulin sliding scale, likely to be deteriorate based on st eroids needed to treat the above Hypercholesterolemia continue current medications GERD-continue with home medications Atrial fibrillation-maintain anticoagulation Admission status: Patient with severe hypoxemia with a baseline O2 requirement of 3 L, is at 6 L and only maintaining 88 to 89%, this secondary to right lower lobe pneumonia, medically necessary treatment will span 2 midnights. Inpatient status.
[2024-04-03] MEDS: SODIUM CHLORIDE 0.9% INHALATION 3 ML NEB 6 ML IH ×2 (11:05→16:52)
--- NOTE | 2024-04-03 11:32 | REH.PTDLY ---
Physical Therapy Daily Note PT Daily Note/Assess Start: 04/01/24 12:09 Freq: Status: Active Protocol: Document 04/03/24 11:09 KSTEINLE (Rec: 04/03/24 11:32 KSTEINLE No Response) Physical Therapy Daily Note/Assessment Time In 09:45 Time Out 09:58 Subjective Pt up in chair with no complaints this morning, still on 55% vapotherm. Pt states they tried to take vapotherm off yesterday, but O2 dropped and pt had to be placed back on. Therapeutic Exercise 10 Minutes (minutes) Therapeutic Exercise 1 Units Therapeutic Exercise Pt performs Bello LE seated exs 10-12x ea with LAQ, Treatment marching, hip abd, hip add. Standing exs 10x ea with hip flex, squats, marching, and hip abd for improved strength and pt using 1 hand support to maintain balance. Sit to stand transfers 5x in a row for improved leg strength with mild fatigue noted. Therapeutic Activity 3 Minutes (minutes) Therapeutic Activity 0 Units Therapeutic Activity Pt takes 3 fwd/retro steps 8x for as pt continues to be Comments limited with movement due to vapotherm with no AD needed. Total Therapy 13 Minutes Total Physical 1 Therapy Units Daily Note Summary Pt continues to do well physically and is still limited in gait distance due to being connected to vapotherm. Will progress gait distance when pt is off vapotherm.
[2024-04-03 11:41] LABS: Glucometer 306 mg/dL (74-106)
--- NOTE | 2024-04-03 11:57 | CM.NOTE ---
2nd Important Message From Medicare discussed with pt, pt denies any questions or concerns.
[2024-04-03] MEDS: INSULIN ASPART 300 UNIT/3 ML PEN SUBQ ×3 (12:05→21:13)
[2024-04-03] MEDS: BUMETANIDE 10 MG in 0.9 % SODIUM CHLORIDE 160 ML IV (12:06)
[2024-04-03] MEDS: POTASSIUM CHLORIDE 10 MEQ ER TABLET 20 MEQ PO ×2 (12:47→21:12)
--- NOTE | 2024-04-03 13:25 | OT.DAILY ---
Occupational Therapy Daily Note OT Inpatient Daily Visit Note Start: 03/31/24 16:05 Freq: Status: Active Protocol: Document 04/03/24 13:23 [id number] (Rec: 04/03/24 13:25 [id number]) Visit Not Completed Visit Not Completed Visit Not Completed Other Due to: Other Reason Visit Pt remains on vapotherm, 30L NC. Unable to be seen at Not Completed this time to due SOB and fatigue with exertion. Will continue to make attempts. OT Visit Details Time In/Time Out Time In :23 Time Out : GG. Functional Abilities and Goals-Complete for Swing Bed Patients Only [id number]. Self-Care [id number]. Mobility
[2024-04-03 16:44] LABS: Glucometer 209 mg/dL (74-106)
[2024-04-03] MEDS: RIVAROXABAN 10 MG TABLET 20 MG PO (17:11)
--- NOTE | 2024-04-03 17:51 | P.CACN_ITS ---
History of Present Illness History of Present Illness Consult date: 04/03/24 Requesting physician: Jaxon Sahu Consult reason: congestive heart failure Chief complaint: LOW OXYGEN PNEUMONIA HYPOXEMIA Narrative: I was consulted for management of his cardiac condition. This is a 84-year-old man who is known to our practice. He has prior complex cardiac history. He has coronary artery disease status post stenting of the RCA in 2020, permanent atrial fibrillation maintained on anticoagulation with Xarelto. 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 Additional medical history includes hypertension, hyperlipidemia, diabetes and COPD. He also has a recently diagnosed lung mass and history of prostate cancer. He is now admitted to hospital with worsening shortness of breath. He is found to have pneumonia and is being treated for that. His legs are significantly swollen and his BNP was severely elevated on admission. He is currently being treated with antibiotics as well as diuretic therapy. He is on bumetanide drip today. The renal function has slightly improved and the BNP level has come down. He reports that he feels a lot better today than yesterday. He is sitting on the side of the bed and having his dinner. He appears comfortable. He denies chest pain. He does not feel palpitations. He thinks that the leg swelling has improved. Review of Systems ROS Status of ROS 10 or more systems reviewed and unremark able except as noted in history and below Cardiovascular Reports: edema, shortness of breath with exertion and shortness of breath when lying down; Denies: chest pain or palpitations Respiratory Reports: shortness of breath and chest congestion [facility] Medical History (Updated 04/03/24 @ 18:01 by SANJEEV MOREIRA) Acute on chronic systolic (congestive) heart failure ?I50.23 - Acute on chronic systolic (congestive) heart failure (ICD-10) Hypoxia ?R09.02 - Hypoxemia (ICD-10) COPD (chronic obstructive pulmonary disease) ?J44.9 - Chronic obstructive pulmonary disease, unspecified (ICD-10) Congestive heart failure ?I50.9 - Heart failure, unspecified (ICD-10) Hematuria ?R31.9 - Hematuria, unspecified (ICD-10) Atrial fibrillation ?I48.91 - Unspecified atrial fibrillation (ICD-10) CHF (congestive heart failure) ?I50.9 - Heart failure, unspecified (ICD-10) Diabetes mellitus ?E11.9 - Type 2 diabetes mellitus without complications (ICD-10) Hypertension ?I10 - Essential (primary) hypertension (ICD-10) Prostate cancer ?C61 - Malignant neoplasm of prostate (ICD-10) Surgical History (Updated 03/31/24 @ 13:37 by Pepper Hanna) Pacemaker ?Z95.0 - Presence of cardiac pacemaker (ICD-10) H/O hernia repair ?Z98.890 - Other specified postprocedural states (ICD-10) ?Z87.19 - Personal history of other diseases of the digestive system (ICD-10) H/O heart artery stent ?Z95.5 - Presence of coronary angioplasty implant and graft (ICD-10) Family History Father Family history of myocardial infarction Family history of CHF (congestive heart failure) Brother Family history of CHF (congestive heart failure) Family history of hypertension Sister Family history of cancer Social History (Updated 03/31/24 @ 13:38 by Pepper Hanna) Within the past year, how often did you have a drink containing alcohol: never Within the past year, how often did you have six or more drinks on one occasion: never Score interpretation: A score less than 4 is consistent with normal alcohol consumption. Smoking status: Former smoker Non-prescribed substance use: denies use Previous occupational history: retired Highest level of school completed/degree received: high school graduate Are you now , , , , never or living with a partner: In a typical week, how many times do you talk on the telephone with family, friends, or neighbors: 3 or more times per week How often do you get together with friends or relatives: 3 or more times per week How often do you attend latter day or confucianist services: 4 or more times per year Do you belong to any clubs or organizations such as latter day groups unions, fraternal or athletic groups, or school groups: no Total score: 3 Score interpretation: A score of greater than or equal to 2 indicates the lowest level of social isolation. Little interest or pleasure in doing things: not at all Feeling down, depressed, or hopeless: not at all Feel stressed/tense/nervous/anxious/difficulty sleeping: not at all Do you think of yourself as: straight/heterosexual Gender Identity: male Meds Home Medications and Allergies Home Medications ?Medication ?Instructions ?Recorded ?Confirmed ?Type atorvastatin 80 mg tablet 80 mg PO DAILY 09/23/22 03/31/24 History carvedilol 12.5 mg tablet 25 mg PO Q12H 09/23/22 04/01/24 History ferrous sulfate 325 mg (65 mg 325 mg PO DAILY 09/23/22 03/31/24 History iron) tablet furosemide 20 mg tablet 20 mg PO BID 09/23/22 03/31/24 History metformin 500 mg tablet 500 mg PO BID 09/23/22 03/31/24 History pantoprazole 40 mg tablet,delayed 40 mg PO DAILY 09/23/22 03/31/24 History release rivaroxaban 20 mg tablet (Xarelto) 20 mg PO DAILY 09/23/22 03/31/24 History dorzolamide 22.3 mg-timolol 6.8 1 drp ophthalmic (eye) BID 01/10/24 03/31/24 History mg/mL eye drops empagliflozin 10 mg tablet 10 mg PO DAILY 01/10/24 03/31/24 History (Jardiance) latanoprost 0.005 % eye drops 1 drp ophthalmic (eye) .qhs 01/10/24 03/31/24 History multivitamin (Daily Multi-Vitamin 1 tab PO DAILY 01/10/24 03/31/24 History tablet) omega 6-rkn-nhn-fish oil 300 1 cap PO DAILY 01/10/24 03/31/24 History mg-1,000 mg capsule (Fish Oil) albuterol sulfate 90 mcg/actuation 2 inh inhalation Q6H PRN shortness 01/16/24 03/31/24 Rx aerosol inhaler (Ventolin HFA) of breath or wheezing #8.5 grams benazepril 20 mg tablet 20 mg PO DAILY 03/31/24 03/31/24 History glimepiride 2 mg tablet 1 mg PO DAILY 03/31/24 04/01/24 History Allergies Allergy/AdvReac Type Severity Reaction Status Date / Time No Known Drug Allergies Allergy Verified 09/23/22 06:49 Exam Constitutional Vital Signs, click to edit/add: Last Vital Signs Temp 97.5 F L 04/03/24 16:46 Pulse 73 04/03/24 16:53 Resp 18 04/03/24 16:46 BP 146/91 H 04/03/24 16:46 Pulse Ox 95 04/03/24 16:53 O2 Del Method Vapotherm 04/03/24 16:53 O2 Flow Rate 30 04/03/24 16:53 FiO2 50 04/03/24 16:53 Common normals: oriented x3, alert and well nourished General appearance: cooperative and ill appearing Orientation/consciousness: Yes awake, Yes oriented to place and Yes oriented to time HENMT Common normals: normocephalic Chest Common normals: palpation of chest normal Respiratory Auscultation: rhonchi and diminished lung sounds Cardio Rate: regular rate Rhythm: abnormal rhythm irregularly irregular Heart sounds: no murmurs Peripheral pulses: radial pulses present Extremity General: edema (+2 bilateral pitting edema) Neuro Common normals: oriented x3 and no focal motor deficits Psych Common normals: mental status grossly normal, cooperative, affect normal and speech normal Results Labs and Meds Lab results: CBC 04/03/24 Range/Units 05:44 WBC 17.7 H (4.0-11.0) 10^3/uL RBC 4.52 L (4.70-6.10) 10^6/uL Hgb 13.2 L (14.0-18.0) g/dL Hct 43.4 (42.0-54.0) % Plt Count 169 (150-450) 10^3/uL Neut # (Auto) 16.7 H (1.4-6.5) 10^3/uL Lymph # (Auto) 0.2 L (1.2-3.8) 10^3/uL Wake # (Auto) 0.6 (0.3-0.8) 10^3/uL Eos # (Auto) 0.0 (0.0-0.7) 10^3/uL Baso # (Auto) 0.0 (0.0-0.1) 10^3/uL Comprehensive Metabolic Panel 04/03/24 Range/Units 05:44 Sodium 150 H (136-145) mmol/L Potassium 3.0 L (3.5-5.1) mmol/L Chloride 106 (98-107) mmol/L Carbon Dioxide 43.9 H (21.0-32.0) mmol/L BUN 48.0 H (7.0-18.0) mg/dL Creatinine 1.32 H (0.70-1.30) mg/dL Glucose 100 (74-106) mg/dL Calcium 9.2 (8.5-10.1) mg/dL Intake and Output 04/03/24 04/03/24 04/03/24 07:59 15:59 23:59 Intake Total 650 / 1500 910 / 910 Output Total 1425 / 3275 1100 / 1450 350 / 1450 Balance -775 / -1775 -190 / -540 -350 / -540 Intake: Oral 400 / 1000 860 / 860 IV 250 / 500 50 / 50 Bumetanide 10 mg In 0.9 % 200 / 200 Sodium Chloride 160 ml @ 10 mls /hr IV ONCE ONE Rx#:[id number] Piperacillin Sodium/Tazobactam 50 / 150 50 / 50 3.375 gm In 0.9 % Sodium Chloride 50 ml @ 12.5 mls/hr IV Q8H [facility] Rx#:[id number] Output: Urine 1425 / 3275 1100 / 1450 350 / 1450 Other: Weight 71.7 kg Imaging and Cardiology Stress echo: report reviewed (Echocardiogram 02/21/2024: LV systolic function is mildly reduced. Estimated LVEF is 45 to 50%. Mildly dilated right ventricle with borderline reduced systolic function.) EKG Interpretation ECG shows: atrial fibrillation (I reviewed his rhythm on the telemetry treatment shows atrial fibrillation mostly controlled ventricular response) Assessment and Plan Assessment and Plan (1) Acute on chronic systolic (congestive) heart failure: (2) Pneumonia: (3) Hypoxia: (4) COPD (chronic obstructive pulmonary disease): (5) Atrial fibrillation: Qualifiers: Atrial fibrillation type: permanent Qualified Code(s): I48.21 - Permanent atrial fibrillation (6) Diabetes mellitus: (7) Hypertension: Qualifiers: Hypertension type: primary hypertension Qualified Code(s): I10 - Essential (primary) hypertension (8) CAD (coronary artery disease): Qualifiers: Coronary Disease-Associated Artery/Lesion type: nome artery [place] vs. transplanted heart: nome heart Associated angina: without angina Qualified Code(s): I25.10 - Atherosclerotic heart disease of nome coronary artery without angina pectoris Plan 1. Acute on chronic systolic congestive heart failure: This is evidenced by his significant volume overload, worsening shortness of breath, and significantly elevated BNP level. I agree with the current diuretic strategy. He is currently on bumetanide drip at the rate of 2.5 mg/h. Depending on response we could consider reducing to 1 mg/h. I recommend close follow-up of renal function and potassium. His potassium today was low and he was given chase pplementation. Continue lisinopril, beta-pushpa and SGLT2 inhibitor. 2. Permanent atrial fibrillation: Continue Xarelto for risk reduction of stroke. He is currently on Xarelto 20 mg daily. Given improvement in renal function I would continue the same dose. 3. Coronary artery disease status post stenting of the RCA in 2020: Continue statin therapy. No aspirin given that he is on Xarelto and there is no active CAD. This is to reduce the risk of bleeding. 4. Hypertension: This is not controlled. I recommend adding amlodipine 10 mg once daily. We can see him in follow-up in the cardiology clinic following discharge.
[2024-04-03] MEDS: AMLODIPINE BESYLATE 5 MG TABLET 10 MG PO (18:30)
[2024-04-03] MEDS: ATORVASTATIN CALCIUM 40 MG TABLET 80 MG PO (21:13)
[2024-04-03 21:14] LABS: Glucometer 191 mg/dL (74-106)
[2024-04-03] MEDS: LATANOPROST 0.005% 2.5 ML BOTTLE 1 DROP OP (21:14)
--- NOTE | 2024-04-03 23:20 | RESP.RT ---
Patient refused vapotherm
[2024-04-04] VITALS (26 sets, daily range): BP systolic 104–123; BP diastolic 58–67; PULSE 82–137; TEMP 36.4–36.8; O2SAT 75–98
[2024-04-04] MEDS: PIPERACILLIN SODIUM/TAZOBACTAM 3.375 GM in 0.9 % SODIUM CHLORIDE 50 ML IV ×3 (00:07→16:10)
[2024-04-04] MEDS: IPRATROPIUM/ALBUTEROL SULFATE 3 ML AMPUL.NEB IH ×4 (04:39→22:59)
[2024-04-04] MEDS: METHYLPREDNISOLONE SOD SUCC PF 125 MG/2 ML VIAL 60 MG IVP (05:25)
[2024-04-04] MEDS: OMEPRAZOLE 40 MG CAPSULE.DR PO (05:26)
[2024-04-04 05:30] LABS: Basophils Percent Auto 0.1 % (0.2-2.0); Hematocrit 43.4 % (42.0-54.0); Hemoglobin 13.2 g/dL (14.0-18.0); Immature Granulocytes Abs Auto 0.15 10^3/uL (0.00-0.03); Lymphocytes Absolute Auto 0.2 10^3/uL (1.2-3.8); Lymphocytes Percent Auto 1.2 % (20.5-60.0); Mean Corpuscular HGB Conc 30.4 g/dL (29.9-35.2); Mean Corpuscular Hemoglobin 29.2 pg (25.9-34.0); Mean Platelet Volume 11.1 fL (9.5-13.5); Monocytes Absolute Auto 0.5 10^3/uL (0.3-0.8); Monocytes Percent Auto 3.3 % (1.7-12.0); Neutrophils Absolute Auto 14.8 10^3/uL (1.4-6.5); Neutrophils Percent Auto 94.4 % (43.0-75.0); Platelet Count 151 10^3/uL (150-450); Red Blood Count 4.52 10^6/uL (4.70-6.10); Red Cell Distribution Width 16.2 % (11.0-15.0); White Blood Count 15.6 10^3/uL (4.0-11.0)
[2024-04-04 05:44] LABS: BUN Creatinine Ratio 38.2; Calcium 9.2 mg/dL (8.5-10.1); Carbon Dioxide 42.6 mmol/L (21.0-32.0); Chloride 103 mmol/L (98-107); Estimated GFR (African America 54 (>=60 mL/min/1.73m^2); Estimated GFR (Non-African Ame 44 (>=60 mL/min/1.73m^2); Glucose 122 mg/dL (74-106); Potassium 3.6 mmol/L (3.5-5.1); Sodium 148 mmol/L (136-145)
--- NOTE | 2024-04-04 06:28 | P.PN_ITS ---
Progress Note: Subjective Subjective Interval history: Saw patient up in the medical surgical unit this morning, he states again that he is feeling better however overnight they had to bump him up to 85% on his supplemental oxygen through his Vapotherm. We discussed options for transfer for further evaluation of his pneumonia and heart failure, after review of his labs and repeat chest x-ray later in the morning his chest x-ray is better his BNP is better so patient opted to not get transferred Exam Constitutional Vital Signs, click to edit/add: Last Vital Signs Temp 97.6 F 04/04/24 03:50 Pulse 92 H 04/04/24 06:05 Resp 16 04/04/24 04:39 BP 110/60 04/04/24 03:50 Pulse Ox 94 L 04/04/24 06:05 O2 Del Method Vapotherm 04/04/24 04:39 O2 Flow Rate 30 04/04/24 04:39 FiO2 85 04/04/24 04:39 Documenting provider has reviewed patient's vital signs: yes Common normals: apparent distress (Mild conversational dyspnea with persistent cough-stable) Chest Common normals: inspection of chest normal Respiratory Common normals: abnormal respiratory effort (Stable) Effort & inspection: tachypneic Auscultation: rales (More located in the bases today), rhonchi (Persisting), diminished lung sounds and egophony (Right lower lobe) Cardio Common normals: no JVD and regular rate GI Common normals: Normal to inspection, nondistended, normoactive bowel sounds present Extremity Common normals: abnormal to inspection (1+ edema) Progress Note: Objective Labs Labs: Short CBC 04/03/24 04/04/24 Range/Units 05:44 05:03 WBC 17.7 H 15.6 H (4.0-11.0) 10^3/uL Hgb 13.2 L 13.2 L (14.0-18.0) g/dL Hct 43.4 43.4 (42.0-54.0) % Plt Count 169 151 (150-450) 10^3/uL BMP 04/03/24 04/04/24 05:44 05:03 Sodium 150 H 148 H Potassium 3.0 L 3.6 Chloride 106 103 Carbon Dioxide 43.9 H 42.6 H BUN 48.0 H 58.0 H Creatinine 1.32 H 1.52 H Glucose 100 122 H Calcium 9.2 9.2 Progress Note: A&P Assessment and Plan (1) Acute on chronic systolic (congestive) heart failure: (2) Pneumonia: (3) Hypoxia: (4) COPD (chronic obstructive pulmonary disease): (5) Atrial fibrillation: Qualifiers: Atrial fibrillation type: permanent Qualified Code(s): I48.21 - Permanent atrial fibrillation (6) Diabetes mellitus: (7) Hypertension: Qualifiers: Hypertension type: primary hypertension Qualified Code(s): I10 - Essential (primary) hypertension Plan Admission findings: Severe hypoxia with O2 sat in the 70s, on his normal 3 L, only an 88%-89 on 6 L. Normal white blood cell count but significant left shift consistent with bacterial process, chest x-ray consistent with right lower lobe pneumonia Acute hypoxic respiratory failure requiring high flow oxygen supplementation on top of chronic hypoxic respiratory failure requiring 3 L of supplemental oxygen at home due to acute exacerbation of COPD secondary to right lower lobe pneumonia, with significant hypoxia, left shift on white blood cell count consistent with bacterial process-chest x-ray is better today, so we will maintain current treatment plan, hopefully we can get patient weaned off of Vapotherm and discharged to home Chest mass-plan is for biopsy next week, if he can stabilize we can still accomplish that 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 He is down 9.5 L in total diuresed, with a net of 5.4 Chronic kidney disease stage II-continue to monitor, deteriorated secondary to diuresis but will maintain diuresis Hypertension-uncontrolled on admission, IV medications as needed Iron deficiency anemia as well as anemia of chronic kidney disease-monitor daily Diabetes mellitus-insulin sliding scale, likely to be deteriorate based on steroids needed to treat the above Hypercholesterolemia continue current medications GERD-continue with home medications Atrial fibrillation-maintain anticoagulation Admission status: Patient with severe hypoxemia with a baseline O2 requirement of 3 L, is at 6 L and only maintaining 88 to 89%, this secondary to right lower lobe pneumonia, medically necessary treatment will span 2 midnights. Inpatient status.
--- NOTE | 2024-04-04 06:32 | XR_ITS ---
The [address] [address] Patient Name: KHADAR RAMOS MRN: [id number] date: 1940 Sex: M Assigned Patient Location: [place] Current Patient Location: [place] Accession/Order Number: [id number] Exam Date: 04/04/2024 06:49 Report Date: 04/04/2024 07:04 At the request of: JOSY DELACRUZ Procedure: XR chest 1V EXAM: XR chest 1V HISTORY: follow up pna COMPARISON: 03/31/2024 TECHNIQUE: AP portable FINDINGS: LUNGS: Moderate right basilar infiltrate obscuring the hemidiaphragm and heart border. The left lung is clear VASCULATURE: No increased pulmonary vasculature. PLEURA: No pneumothorax. Right pleural effusion CARDIAC: Mild cardiomegaly MEDIASTINUM: No visible mass or adenopathy. Left pacemaker/AICD BONES: No fracture or visible bone lesion. OTHER: Negative. XR/XR chest 1V IMPRESSION: Resolution of right basilar infiltrate/pleural effusion Electronically authenticated by: ALESHIA RUFF Date: 04/04/2024 07:04
[2024-04-04 06:54] LABS: Troponin I High Sensitivity 25.3 pg/mL (4.0-76.1)
[2024-04-04] MEDS: 0.9 % SODIUM CHLORIDE 250 ML 10 ML IV (07:46)
[2024-04-04] MEDS: GLIMEPIRIDE 2 MG TABLET PO (08:29)
[2024-04-04] MEDS: CARVEDILOL 12.5 MG TABLET PO ×2 (08:29→22:08)
[2024-04-04] MEDS: FISH OIL 1,000 MG CAPSULE 1000 MG PO (08:29)
[2024-04-04] MEDS: CANAGLIFLOZIN 100 MG TABLET PO (08:30)
[2024-04-04] MEDS: AMLODIPINE BESYLATE 5 MG TABLET 10 MG PO (08:30)
[2024-04-04] MEDS: LISINOPRIL 20 MG TABLET PO (08:30)
[2024-04-04] MEDS: POTASSIUM CHLORIDE 10 MEQ ER TABLET 20 MEQ PO ×2 (08:30→22:07)
[2024-04-04] MEDS: MULTIVITAMIN TABLET 1 TAB PO (08:30)
[2024-04-04] MEDS: FERROUS SULFATE 325 MG TABLET PO (08:30)
[2024-04-04] MEDS: DORZOLAMIDE HCL 2%/TIMOLOL MALEATE 0.5% 200 DROP/10 ML BOTTLE OP ×2 (08:31→22:09)
[2024-04-04] MEDS: METFORMIN HCL 500 MG TABLET PO ×2 (08:32→16:33)
--- NOTE | 2024-04-04 09:52 | CM.NOTE ---
Rounds made with Dr. Sahu, discussed with pt possible need for transfer to higher level of care. Unable to wean pt from vapotherm at this time. Dr. Sahu will reach out for possible transfer.
[2024-04-04 10:54] LABS: Glucometer 282 mg/dL (74-106)
--- NOTE | 2024-04-04 11:21 | PC.NURSE ---
Lab states no sptum specimen in lab. Cup given to obtain specimen
[2024-04-04] MEDS: INSULIN ASPART 300 UNIT/3 ML PEN SUBQ ×3 (11:51→23:20)
[2024-04-04] MEDS: BUMETANIDE 10 MG in 0.9 % SODIUM CHLORIDE 160 ML IV (11:52)
--- NOTE | 2024-04-04 12:00 | PT.DAILY ---
Physical Therapy Daily Note PT Daily Note/Assess Start: 04/01/24 12:09 Freq: Status: Active Protocol: Document 04/04/24 11:20 LENY (Rec: 04/04/24 12:00 LENY [id number]) Physical Therapy Daily Note/Assessment Time In/Time Out Time In 09:42 Time Out 09:51 Pain In Pain N/A Pain Out Pain N/A Subjective Subjective Pt supine upon arrival. Reports they attempted to wean from vapotherm overnight but did not go well. Remains on Vapotherm today. 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 SpO2 97-91% Therapeutic Activity Time Therapeutic Activity 1 Minutes (minutes) Therapeutic Activity 0 Units Therapeutic Activity Treatment Bed Mobility Ability Standby Assistance Therapeutic Activity Supine>sit SBA. Sit>supine SBA. Comments Total Physical Therapy Time Total Therapy 9 Minutes Total Physical 1 Therapy Units Summary Daily Note Summary Limited treatment due to vapotherm. Steady with standing ex. O2 between 97-91% with ex.
--- NOTE | 2024-04-04 13:12 | SWNOTE1 ---
Updates sent to [facility], no discharge today.
--- NOTE | 2024-04-04 13:17 | OT.DAILY ---
Occupational Therapy Daily Note OT Inpatient Daily Visit Note Start: 03/31/24 16:05 Freq: Status: Active Protocol: Document 04/04/24 13:04 KGVALERI (Rec: 04/04/24 13:17 KGARDNER No Response) OT Visit Details Time In/Time Out Time In 12:25 Time Out 12:47 OT Treatment Plan Subjective Subjective My oxygen fell to 85% yesterday. They want me to go to [place] for more testing and a different treatment. Objective Objective Pt able to complete supine to sit EOB with SBA. Able to sit EOB to eat food. No issues bringing utensils and cup to mouth. Sit to std with CGA. Pt able to std for 10 min with O2 level fluctuating from 96%-91%. Ed on PLB. Instructed to take a deep breath breathing in through his nose and slowly blowing out through his mouth. Pt able to std and complete functional ROM with no loss of bal. CGA for safety. Able to reach out in front of him, to the side, above his head, and behind his back without O2 dropping more than 2%. Tf back to seated position on EOB with CGA Pt in rm with during tx. Call light left on bed within reach. Assessment Assessment Kirstie tx well on this date. G participation No pain or difference in breathing pattern after tx. Patient Education Patient Education PLB to increase blood O 2 level Plan Plan Cont with current POC OT Lens Generator Timed Codes Therapeutic activity 22 minutes (minutes) Therapeutic activity 2 units
[2024-04-04] MEDS: METHYLPREDNISOLONE SOD SUCC PF 125 MG/2 ML VIAL 40 MG IVP ×2 (13:22→22:07)
[2024-04-04] MEDS: LEVOFLOXACIN IN DEXTROSE 5 % 750 MG/150 ML PREMIX 100 MG IV (13:23)
[2024-04-04 16:09] LABS: Glucometer 233 mg/dL (74-106)
[2024-04-04] MEDS: RIVAROXABAN 10 MG TABLET 20 MG PO (16:33)
[2024-04-04] MEDS: SODIUM CHLORIDE 0.9% INHALATION 3 ML NEB 6 ML IH (16:37)
[2024-04-04 19:51] LABS: Glucometer 238 mg/dL (74-106)
[2024-04-04] MEDS: ATORVASTATIN CALCIUM 40 MG TABLET 80 MG PO (22:08)
[2024-04-04] MEDS: LATANOPROST 0.005% 2.5 ML BOTTLE 1 DROP OP (22:10)
[2024-04-04 22:42] LABS: Glucometer 237 mg/dL (74-106)
[2024-04-05] VITALS (26 sets, daily range): BP systolic 106–146; BP diastolic 63–97; PULSE 76–125; TEMP 36.4–36.6; O2SAT 89–96
[2024-04-05] MEDS: PIPERACILLIN SODIUM/TAZOBACTAM 3.375 GM in 0.9 % SODIUM CHLORIDE 50 ML IV ×3 (04:11→20:16)
[2024-04-05] MEDS: IPRATROPIUM/ALBUTEROL SULFATE 3 ML AMPUL.NEB IH ×4 (04:40→23:20)
[2024-04-05 06:10] LABS: Basophils Percent Auto 0.1 % (0.2-2.0); Hematocrit 41.6 % (42.0-54.0); Hemoglobin 12.9 g/dL (14.0-18.0); Immature Granulocytes Abs Auto 0.09 10^3/uL (0.00-0.03); Immature Granulocytes Pct Auto 0.7 % (0.0-0.5); Lymphocytes Absolute Auto 0.2 10^3/uL (1.2-3.8); Lymphocytes Percent Auto 1.2 % (20.5-60.0); Mean Corpuscular Hemoglobin 29.5 pg (25.9-34.0); Mean Platelet Volume 11.2 fL (9.5-13.5); Monocytes Absolute Auto 0.6 10^3/uL (0.3-0.8); Monocytes Percent Auto 4.7 % (1.7-12.0); Neutrophils Absolute Auto 12.5 10^3/uL (1.4-6.5); Neutrophils Percent Auto 93.3 % (43.0-75.0); Platelet Count 119 10^3/uL (150-450); Red Blood Count 4.38 10^6/uL (4.70-6.10); Red Cell Distribution Width 15.9 % (11.0-15.0); White Blood Count 13.4 10^3/uL (4.0-11.0)
[2024-04-05] MEDS: OMEPRAZOLE 40 MG CAPSULE.DR PO (06:13)
[2024-04-05] MEDS: METHYLPREDNISOLONE SOD SUCC PF 125 MG/2 ML VIAL 40 MG IVP (06:13)
[2024-04-05 06:19] LABS: Anion Gap 5.4; Calcium 9.1 mg/dL (8.5-10.1); Carbon Dioxide 42.3 mmol/L (21.0-32.0); Chloride 101 mmol/L (98-107); Estimated GFR (African America 50 (>=60 mL/min/1.73m^2); Estimated GFR (Non-African Ame 41 (>=60 mL/min/1.73m^2); Glucose 126 mg/dL (74-106); Potassium 3.7 mmol/L (3.5-5.1); Sodium 145 mmol/L (136-145)
[2024-04-05 07:50] LABS: Glucometer 144 mg/dL (74-106)
[2024-04-05] MEDS: INSULIN ASPART 300 UNIT/3 ML PEN SUBQ ×4 (08:20→21:34)
[2024-04-05] MEDS: AMLODIPINE BESYLATE 5 MG TABLET 10 MG PO (08:27)
[2024-04-05] MEDS: GLIMEPIRIDE 2 MG TABLET PO (08:27)
[2024-04-05] MEDS: FISH OIL 1,000 MG CAPSULE 1000 MG PO (08:27)
[2024-04-05] MEDS: CARVEDILOL 12.5 MG TABLET PO (08:27)
[2024-04-05] MEDS: CANAGLIFLOZIN 100 MG TABLET PO (08:27)
[2024-04-05] MEDS: PREDNISONE 20 MG TABLET 40 MG PO (08:28)
[2024-04-05] MEDS: FERROUS SULFATE 325 MG TABLET PO (08:28)
[2024-04-05] MEDS: POTASSIUM CHLORIDE 10 MEQ ER TABLET 20 MEQ PO ×2 (08:28→20:19)
[2024-04-05] MEDS: DORZOLAMIDE HCL 2%/TIMOLOL MALEATE 0.5% 200 DROP/10 ML BOTTLE OP ×2 (08:28→20:22)
[2024-04-05] MEDS: MULTIVITAMIN TABLET 1 TAB PO (08:28)
[2024-04-05] MEDS: LISINOPRIL 20 MG TABLET PO (08:28)
--- NOTE | 2024-04-05 08:46 | P.PN_ITS ---
Progress Note: Subjective Subjective Interval history: Patient seen and evaluated in the medical surgical floor, sitting up at bedside eating breakfast, feels his breathing continues to improve over the last several days. Exam Constitutional Vital Signs, click to edit/add: Last Vital Signs Temp 97.5 F L 04/05/24 07:56 Pulse 84 04/05/24 07:56 Resp 18 04/05/24 07:56 BP 133/77 04/05/24 07:56 Pulse Ox 96 04/05/24 07:56 O2 Del Method Vapotherm 04/05/24 07:56 O2 Flow Rate 3 04/05/24 07:25 FiO2 65 04/05/24 04:40 Documenting provider has reviewed patient's vital signs: yes Common normals: apparent distress (Mild conversational dyspnea with persistent cough-stable) Chest Common normals: inspection of chest normal Respiratory Common normals: abnormal respiratory effort (Stable) Effort & inspection: tachypneic Auscultation: rales (Improved from previous days), rhonchi (Overall improvement from previous days), diminished lung sounds and egophony (Right lower lobe) Cardio Common normals: no JVD and regular rate GI Common normals: Normal to inspection, nondistended, normoactive bowel sounds present Extremity Common normals: abnormal to inspection (1+ edema) Progress Note: Objective Labs Labs: Short CBC 04/05/24 Range/Units 05:55 WBC 13.4 H (4.0-11.0) 10^3/uL Hgb 12.9 L (14.0-18.0) g/dL Hct 41.6 L (42.0-54.0) % Plt Count 119 L (150-450) 10^3/uL BMP 04/05/24 05:55 Sodium 145 Potassium 3.7 Chloride 101 Carbon Dioxide 42.3 H BUN 66.0 H Creatinine 1.61 H Glucose 126 H Calcium 9.1 Progress Note: A&P Assessment and Plan (1) Acute on chronic systolic (congestive) heart failure: (2) Pneumonia: (3) Hypoxia: (4) COPD (chronic obstructive pulmonary disease): (5) Atrial fibrillation: Qualifiers: Atrial fibrillation type: permanent Qualified Code(s): I48.21 - Permanent atrial fibrillation (6) Diabetes mellitus: (7) Hypertension: Qualifiers: Hypertension type: primary hypertension Qualified Code(s): I10 - Esse ntial (primary) hypertension Plan Admission findings: Severe hypoxia with O2 sat in the 70s, on his normal 3 L, only an 88%-89 on 6 L. Normal white blood cell count but significant left shift consistent with bacterial process, chest x-ray consistent with right lower lobe pneumonia Acute hypoxic respiratory failure requiring high flow oxygen supplementation on top of chronic hypoxic respiratory failure requiring 3 L of supplemental oxygen at home due to acute exacerbation of COPD secondary to right lower lobe pneumonia, with significant hypoxia, left shift on white blood cell count consistent with bacterial process-chest x-ray is better today, s improved, he is down to 55%, will continue to try to wean that today, does not need saturations in the mid to upper 90s, 90-92 feels fine to him Chest mass-plan is for biopsy next week, if he can stabilize we can still accomplish that 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 He is down 9.5 L in total diuresed, with a net of 5.4 Chronic kidney disease stage II-continue to monitor, deteriorated secondary to diuresis but will maintain diuresis Hypertension-with significant tachycardia, will change patient from carvedilol to metoprolol Iron deficiency anemia as well as anemia of chronic kidney disease-monitor daily Diabetes mellitus-insulin sliding scale, likely to be deteriorate based on steroids needed to treat the above Hypercholesterolemia continue current medications GERD-continue with home medications Atrial fibrillation-maintain anticoagulation, changing beta-pushpa Admission status: Patient with severe hypoxemia with a baseline O2 requirement of 3 L, is at 6 L and only maintaining 88 to 89%, this secondary to right lower lobe pneumonia, medically necessary treatment will span 2 midnights. Inpatient status.
[2024-04-05] MEDS: SODIUM CHLORIDE 0.9% INHALATION 3 ML NEB 6 ML IH ×2 (11:09→16:36)
[2024-04-05] MEDS: BUMETANIDE 10 MG in 0.9 % SODIUM CHLORIDE 160 ML IV (11:35)
[2024-04-05] MEDS: METOPROLOL TARTRATE 25 MG TABLET PO (11:35)
--- NOTE | 2024-04-05 11:43 | PT.DAILY ---
Physical Therapy Daily Note PT Daily Note/Assess Start: 04/01/24 12:09 Freq: Status: Active Protocol: Document 04/05/24 11:34 [id number] (Rec: 04/05/24 11:43 [id number]) Physical Therapy Daily Note/Assessment Time In/Time Out Time In 09:48 Time Out 10:00 Pain In Pain Level 0 Pain Out Pain Level 0 Subjective Subjective Patient received supine in bed on Vapotherm. Agreeable to participate with PT. present during treatment. Therapeutic Exercise Time Therapeutic Exercise 3 Minutes (minutes) Therapeutic Exercise 0 Units Therapeutic Exercise Treatment Therapeutic Exercise Standing Ther ex: RENATO LE may, hip ABD and flexion x 8 Treatment -10 reps holding bed rail. Therapeutic Activity Time Therapeutic Activity 9 Minutes (minutes) Therapeutic Activity 1 Units Therapeutic Activity Treatment Bed Mobility Ability Contact Guard Assist Chair Transfer Contact Guard Assist Ability Therapeutic Activity O2 level supine in bed 90%. Bed mobility: supine to R Comments sitting EOB with use of R handrail is CGA +1. Sit to stand CGA +1. Patient ambulated forward and backward @ 3' x 2 with CGA +1 and sat EOB. Repeated Sit to stand CGA +1 with ambulating forward and backward @ 3' x 2 with CGA +1 and sat EOB. O2 level @ 94% post functional mobility. Patient requested to stay seated EOB to brush teeth, assisting patient with ADL's. Total Physical Therapy Time Total Therapy 12 Minutes Total Physical 1 Therapy Units Summary Daily Note Summary Demonstrates improved bed mobility and ambulation distance this, limited distance due to Vapotherm. Patient would benefit from PT to address functional deficits.
[2024-04-05 11:45] LABS: Glucometer 247 mg/dL (74-106)
[2024-04-05] MEDS: RIVAROXABAN 10 MG TABLET 20 MG PO (16:36)
[2024-04-05 16:42] LABS: Glucometer 239 mg/dL (74-106)
[2024-04-05 19:22] LABS: Glucometer 260 mg/dL (74-106)
[2024-04-05] MEDS: METOPROLOL TARTRATE 50 MG TABLET PO (20:19)
[2024-04-05] MEDS: LATANOPROST 0.005% 2.5 ML BOTTLE 1 DROP OP (21:36)
[2024-04-05] MEDS: ATORVASTATIN CALCIUM 40 MG TABLET 80 MG PO (21:36)
[2024-04-06] VITALS (22 sets, daily range): BP systolic 107–138; BP diastolic 61–79; PULSE 55–133; TEMP 36.3–36.9; O2SAT 88–98
[2024-04-06] MEDS: IPRATROPIUM/ALBUTEROL SULFATE 3 ML AMPUL.NEB IH ×4 (04:04→23:32)
[2024-04-06] MEDS: PIPERACILLIN SODIUM/TAZOBACTAM 3.375 GM in 0.9 % SODIUM CHLORIDE 50 ML IV (04:36)
[2024-04-06] MEDS: OMEPRAZOLE 40 MG CAPSULE.DR PO (05:55)
[2024-04-06 06:22] LABS: Basophils Percent Auto 0.1 % (0.2-2.0); Eosinophils Absolute Auto 0.1 10^3/uL (0.0-0.7); Eosinophils Percent Auto 0.3 % (0.9-7.0); Hemoglobin 14.5 g/dL (14.0-18.0); Immature Granulocytes Abs Auto 0.08 10^3/uL (0.00-0.03); Immature Granulocytes Pct Auto 0.5 % (0.0-0.5); Lymphocytes Absolute Auto 0.4 10^3/uL (1.2-3.8); Lymphocytes Percent Auto 2.4 % (20.5-60.0); Mean Corpuscular HGB Conc 30.2 g/dL (29.9-35.2); Mean Corpuscular Hemoglobin 28.8 pg (25.9-34.0); Mean Corpuscular Volume 95.2 fL (80.0-94.0); Mean Platelet Volume 11.1 fL (9.5-13.5); Neutrophils Absolute Auto 14.9 10^3/uL (1.4-6.5); Neutrophils Percent Auto 90.7 % (43.0-75.0); Platelet Count 131 10^3/uL (150-450); Red Blood Count 5.04 10^6/uL (4.70-6.10); Red Cell Distribution Width 15.9 % (11.0-15.0); White Blood Count 16.4 10^3/uL (4.0-11.0)
[2024-04-06 06:43] LABS: Anion Gap 5.2; BUN Creatinine Ratio 40.9; Calcium 9.9 mg/dL (8.5-10.1); Carbon Dioxide 45.7 mmol/L (21.0-32.0); Chloride 102 mmol/L (98-107); Estimated GFR (African America 53 (>=60 mL/min/1.73m^2); Estimated GFR (Non-African Ame 43 (>=60 mL/min/1.73m^2); Glucose 52 mg/dL (74-106); Potassium 3.9 mmol/L (3.5-5.1); Sodium 149 mmol/L (136-145)
[2024-04-06] MEDS: MULTIVITAMIN TABLET 1 TAB PO (08:31)
[2024-04-06] MEDS: POTASSIUM CHLORIDE 10 MEQ ER TABLET 20 MEQ PO ×2 (08:31→22:11)
[2024-04-06] MEDS: CANAGLIFLOZIN 100 MG TABLET PO (08:31)
[2024-04-06] MEDS: GLIMEPIRIDE 2 MG TABLET PO (08:31)
[2024-04-06] MEDS: CEFDINIR 300 MG CAPSULE 600 MG PO (08:31)
[2024-04-06] MEDS: METOPROLOL TARTRATE 25 MG TABLET 75 MG PO ×2 (08:31→22:10)
[2024-04-06] MEDS: PREDNISONE 20 MG TABLET 40 MG PO (08:31)
[2024-04-06] MEDS: DORZOLAMIDE HCL 2%/TIMOLOL MALEATE 0.5% 200 DROP/10 ML BOTTLE OP ×2 (08:32→22:11)
[2024-04-06] MEDS: FERROUS SULFATE 325 MG TABLET PO (08:32)
[2024-04-06] MEDS: LISINOPRIL 20 MG TABLET PO (08:32)
[2024-04-06] MEDS: FISH OIL 1,000 MG CAPSULE 1000 MG PO (08:32)
[2024-04-06] MEDS: AMLODIPINE BESYLATE 5 MG TABLET 10 MG PO (08:32)
--- NOTE | 2024-04-06 08:37 | P.PN_ITS ---
Progress Note: Subjective Subjective Interval history: Patient states his breathing is better, he is down to just nasal cannula oxygen between 3 to 6 L however though, his baseline is 2 L at home Exam Constitutional Vital Signs, click to edit/add: Last Vital Signs Temp 97.4 F L 04/06/24 06:38 Pulse 117 H 04/06/24 08:00 Resp 18 04/06/24 06:38 BP 138/78 04/06/24 06:38 Pulse Ox 92 L 04/06/24 08:00 O2 Del Method Nasal Cannula 04/06/24 06:38 O2 Flow Rate 6 04/06/24 06:38 FiO2 45 04/05/24 16:46 Documenting provider has reviewed patient's vital signs: yes Common normals: apparent distress (Mild conversational dyspnea with persistent cough-stable) Chest Common normals: inspection of chest normal Respiratory Common normals: normal respiratory effort (Acute proved) Effort & inspection: non tachypneic (Essentially resolved) Auscultation: rales (Minimal), rhonchi (Minimal), diminished lung sounds and egophony (Finally resolved today) Cardio Common normals: no JVD and regular rate GI Common normals: Normal to inspection, nondistended, normoactive bowel sounds present Extremity Common normals: abnormal to inspection (1+ edema) Progress Note: Objective Labs Labs: Short CBC 04/06/24 Range/Units 06:01 WBC 16.4 H (4.0-11.0) 10^3/uL Hgb 14.5 (14.0-18.0) g/dL Hct 48.0 (42.0-54.0) % Plt Count 131 L (150-450) 10^3/uL BMP 04/06/24 06:01 Sodium 149 H Potassium 3.9 Chloride 102 Carbon Dioxide 45.7 H BUN 63.0 H Creatinine 1.54 H Glucose 52 L Calcium 9.9 Progress Note: A&P Assessment and Plan (1) Acute on chronic systolic (congestive) heart failure: (2) Pneumonia: (3) Hypoxia: (4) COPD (chronic obstructive pulmonary disease): (5) Atrial fibrillation: Qualifiers: Atrial fibrillation type: permanent Qualified Code(s): I48.21 - Permanent atrial fibrillation (6) Diabetes mellitus: (7) Hypertension: Qualifiers: Hypertension type: primary hypertension Qualified Code(s): I10 - Essential (primary) hypertension Plan Admission findings: Severe hypoxia with O2 sat in the 70s, on his normal 3 L, only an 88%-89 on 6 L. Normal white blood cell count but significant left shift consistent with bacterial process, chest x-ray consistent with right lower lobe pneumonia Acute hypoxic respiratory failure requiring high flow oxygen supplementation on top of chronic hypoxic respiratory failure requiring 3 L of supplemental oxygen at home due to acute exacerbation of COPD secondary to right lower lobe pneumonia, with significant hypoxia, left shift on white blood cell count consistent with bacterial process-chest x-ray is better today,-overall seems finally improved, repeat Bumex drip again today, change his antibiotics to oral antibiotics, if can remain stable on supplemental oxygen not need to go back on Vapotherm will discharge tomorrow Chest mass-plan is for biopsy next week, if he can stabilize we can still accomplish that 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 He is down with a net of 10 L, good diuresis yesterday, repeat Bumex drip again today Chronic kidney disease stage II-continue to monitor, actually improved from previous day despite diuresis as outlined above Hypertension-with significant tachycardia, will change patient from carvedilol to metoprolol Iron deficiency anemia as well as anemia of chronic kidney disease-monitor daily Diabetes mellitus-insulin sliding scale, likely to be deteriorate based on steroids needed to treat the above Hypercholesterolemia continue current medications GERD-continue with home medications Atrial fibrillation-maintain anticoagulation, changing beta-pushpa Admission status: Patient with severe hypoxemia with a baseline O2 requirement of 3 L, is at 6 L and only maintaining 88 to 89%, this secondary to right lower lobe pneumonia, medically necessary treatment will span 2 midnights. Inpatient status.
[2024-04-06] MEDS: SODIUM CHLORIDE 0.9% INHALATION 3 ML NEB 6 ML IH ×2 (10:01→16:04)
[2024-04-06 11:34] LABS: Glucometer 252 mg/dL (74-106)
[2024-04-06] MEDS: INSULIN ASPART 300 UNIT/3 ML PEN SUBQ ×3 (12:19→22:12)
[2024-04-06] MEDS: BUMETANIDE 10 MG in 0.9 % SODIUM CHLORIDE 160 ML IV (12:20)
[2024-04-06 15:41] LABS: Glucometer 204 mg/dL (74-106)
[2024-04-06 20:25] LABS: Glucometer 330 mg/dL (74-106)
[2024-04-06] MEDS: ATORVASTATIN CALCIUM 40 MG TABLET 80 MG PO (22:11)
[2024-04-06] MEDS: LATANOPROST 0.005% 2.5 ML BOTTLE 1 DROP OP (22:12)
[2024-04-07] VITALS (11 sets, daily range): BP systolic 118–161; BP diastolic 75–83; PULSE 70–141; TEMP 36.3–36.4; O2SAT 72–98
[2024-04-07] MEDS: IPRATROPIUM/ALBUTEROL SULFATE 3 ML AMPUL.NEB IH ×2 (04:26→10:11)
[2024-04-07 05:08] LABS: Basophils Percent Auto 0.1 % (0.2-2.0); Eosinophils Absolute Auto 0.1 10^3/uL (0.0-0.7); Eosinophils Percent Auto 0.7 % (0.9-7.0); Hematocrit 44.8 % (42.0-54.0); Immature Granulocytes Abs Auto 0.07 10^3/uL (0.00-0.03); Immature Granulocytes Pct Auto 0.5 % (0.0-0.5); Lymphocytes Absolute Auto 0.5 10^3/uL (1.2-3.8); Mean Corpuscular HGB Conc 31.3 g/dL (29.9-35.2); Mean Corpuscular Volume 92.8 fL (80.0-94.0); Mean Platelet Volume 11.3 fL (9.5-13.5); Monocytes Absolute Auto 1.1 10^3/uL (0.3-0.8); Neutrophils Absolute Auto 13.3 10^3/uL (1.4-6.5); Neutrophils Percent Auto 88.7 % (43.0-75.0); Platelet Count 116 10^3/uL (150-450); Red Blood Count 4.83 10^6/uL (4.70-6.10); Red Cell Distribution Width 15.8 % (11.0-15.0); White Blood Count 14.9 10^3/uL (4.0-11.0)
[2024-04-07 05:18] LABS: BUN Creatinine Ratio 43.6; Calcium 9.7 mg/dL (8.5-10.1); Carbon Dioxide 44.5 mmol/L (21.0-32.0); Chloride 101 mmol/L (98-107); Estimated GFR (African America 52 (>=60 mL/min/1.73m^2); Estimated GFR (Non-African Ame 43 (>=60 mL/min/1.73m^2); Glucose 81 mg/dL (74-106); Potassium 3.5 mmol/L (3.5-5.1); Sodium 145 mmol/L (136-145)
[2024-04-07] MEDS: OMEPRAZOLE 40 MG CAPSULE.DR PO (05:45)
--- NOTE | 2024-04-07 07:56 | P.DS_ITS ---
DS: Providers Provider Date of admission: 03/31/24 13:17 Primary care physician: Jaxon Sahu MD Consults: 03/31/24 12:35 Occupational Therapy Eval and Treat Routine Reason for consultation: Only if needed for Rehab Has provider been notified: No Physical Therapy Eval and Treat Routine Reason for consultation: Eval and Treat Has provider been notified: No 04/02/24 06:29 Consult to Pulmonology Routine Consulting Provider: Robert Ponce Reason for consultation: pna, acute hypoxia Has provider been notified: No 04/03/24 06:48 Consult to Cardiology Routine Reason for consultation: chf Has provider been notified: No DS: Diagnosis Discharge Diagnosis (1) Acute on chronic systolic (congestive) heart failure: (2) Pneumonia: (3) Hypoxia: (4) COPD (chronic obstructive pulmonary disease): (5) Atrial fibrillation: Qualifiers: Atrial fibrillation type: permanent Qualified Code(s): I48.21 - Permanent atrial fibrillation (6) Diabetes mellitus: (7) Hypertension: Qualifiers: Hypertension type: primary hypertension Qualified Code(s): I10 - Essential (primary) hypertension Plan Admission findings: Severe hypoxia with O2 sat in the 70s, on his normal 3 L, only an 88%-89 on 6 L. Normal white blood cell count but significant left shift consistent with bacterial process, chest x-ray consistent with right lower lobe pneumonia Acute hypoxic respiratory failure requiring high flow oxygen supplementation on top of chronic hypoxic respiratory failure requiring 3 L of supplemental oxygen at home due to acute exacerbation of COPD secondary to right lower lobe pneumonia, with significant hypoxia, left shift on white blood cell count consistent with bacterial process-chest x-ray is better today,-overall seems finally improved, repeat Bumex drip again today, change his antibiotics to oral antibiotics, if can remain stable on supplemental oxygen not need to go back on Vapotherm will discharge tomorrow Chest mass-plan is for biopsy next week, if he can stabilize we can still accomplish that 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 He is down with a net of 10 L, good diuresis yesterday, repeat Bumex drip again today Chronic kidney disease stage II-continue to monitor, actually improved from previous day despite diuresis as outlined above Hypertension-with significant tachycardia, will change patient from carvedilol to metoprolol Iron deficiency anemia as well as anemia of chronic kidney disease-monitor daily Diabetes mellitus-insulin sliding scale, likely to be deteriorate based on steroids needed to treat the above Hypercholesterolemia continue current medications GERD-continue with home medications Atrial fibrillation-maintain anticoagulation, changing beta-pushpa Admission status: Patient with severe hypoxemia with a baseline O2 requirement of 3 L, is at 6 L and only maintaining 88 to 89%, this secondary to right lower lobe pneumonia, medically necessary treatment will span 2 midnights. Inpatient status. ? DS: Summary Hospital Course Hospital Course: Patient presented to the emergency room with increasing cough and shortness of breath, found to have pneumonia, also acute combined congestive heart failure, patient was treated with IV antibiotics, slow to respond and had significant leukocytosis with left shift, antibiotics were adjusted in the last 4 days, patient finally started to improve, excellent diuresis as well with Bumex drip, has had 24 L diuresed with a net of 12. He was requiring initially BiPAP and then Vapotherm, now is down to nasal cannula oxygen between 4-6. He has a baseline of 2-3 at home, at this point he is improved enough of the infiltrate clearing on chest x-ray to be discharged to home, continue with home medications, plan for biopsy on Sunday medications see list. See me in the office on Sunday Time Spent with Patient Time attestation: Total time spent providing and/or coordinating discharge services: Exam Constitutional Vital Signs, click to edit/add: Last Vital Signs Temp 97.4 F L 04/07/24 06:21 Pulse 80 04/07/24 06:21 Resp 18 04/07/24 06:21 BP 129/75 04/07/24 06:21 Pulse Ox 91 L 04/07/24 06:21 O2 Del Method Nasal Cannula 04/07/24 06:21 O2 Flow Rate 3 04/07/24 06:21 FiO2 45 04/05/24 16:46 Documenting provider has reviewed patient's vital signs: yes Common normals: apparent distress (Mild conversational dyspnea with persistent cough-stable) Chest Common normals: inspection of chest normal Respiratory Common normals: normal respiratory effort (Much improved) Effort & inspection: non tachypneic (Essentially resolved) Auscultation: rales (Resolved), rhonchi (Minimal) and diminished lung sounds; no egophony (Finally resolved today) Cardio Common normals: no JVD, regular rate and no murmurs GI Common normals: Normal to inspection, nondistended, normoactive bowel sounds present Extremity Common normals: abnormal to inspection (Trace edema) DS: Data Data Completed and Pending Labs on day of discharge: Labs from last 24 hours 04/07/24 04/06/24 04/06/24 04:57 20:18 15:40 WBC 14.9 H RBC 4.83 Hgb 14.0 Hct 44.8 MCV 92.8 MCH 29.0 MCHC 31.3 RDW 15.8 H Plt Count 116 L MPV 11.3 Neut % (Auto) 88.7 H Lymph % (Auto) 3.0 L [place] % (Auto) 7.0 Eos % (Auto) 0.7 L Baso % (Auto) 0.1 L Neut # (Auto) 13.3 H Lymph # (Auto) 0.5 L [place] # (Auto) 1.1 H Eos # (Auto) 0.1 Baso # (Auto) 0.0 Abs Immat Gran (auto) 0.07 H Imm/Tot Granulo (auto) 0.5 Sodium 145 Potassium 3.5 Chloride 101 Carbon Dioxide 44.5 H Anion Gap 3.0 BUN 68.0 H Creatinine 1.56 H Est GFR ( Amer) 52 L Est GFR (Non-Af Amer) 43 L BUN/Creatinine Ratio 43.6 Glucose 81 Calcium 9.7 NT-Pro-B Natriuret Pep 2122.0 H* POC Glucose 330 H 204 H 04/06/24 11:29 WBC RBC Hgb Hct MCV MCH MCHC RDW Plt Count MPV Neut % (Auto) Lymph % (Auto) [place] % (Auto) Eos % (Auto) Baso % (Auto) Neut # (Auto) Lymph # (Auto) [place] # (Auto) Eos # (Auto) Baso # (Auto) Abs Immat Gran (auto) Imm/Tot Granulo (auto) Sodium Potassium Chloride Carbon Dioxide Anion Gap BUN Creatinine Est GFR ( Amer) Est GFR (Non-Af Amer) BUN/Creatinine Ratio Glucose Calcium NT-Pro-B Natriuret Pep POC Glucose 252 H Discharge Plan Discharge Disposition: Home, Self-Care Condition: Fair Discharge Medications: New lisinopril 20 mg Tablet 20 mg PO QD Qty: 30 11RF cefdinir 300 mg Capsule 600 mg PO QD Qty: 10 0RF prednisone 10 mg tablet 30 mg PO DAILY Qty: 20 0RF Rx Instructions: 3/day for 3 days, 2/day for 3 days, 1/day for 3 days, 1/2 /day for 4 days furosemide [Lasix] 40 mg tablet 40 mg PO QAM Qty: 30 11RF metoprolol tartrate 75 mg tablet 75 mg PO BID Qty: 60 11RF potassium chloride 10 mEq tablet extended release 10 meq PO BID Qty: 60 11RF amlodipine 10 mg tablet 10 mg PO DAILY Qty: 30 11RF Continued benazepril 20 mg tablet 20 mg PO DAILY glimepiride 2 mg tablet 1 mg PO DAILY atorvastatin 80 mg tablet 80 mg PO DAILY carvedilol 12.5 mg tablet 25 mg PO Q12H metformin 500 mg tablet 500 mg PO BID pantoprazole 40 mg tablet,delayed release (DR/EC) 40 mg PO DAILY Xarelto 20 mg tablet 20 mg PO DAILY ferrous sulfate 325 mg (65 mg iron) tablet 325 mg PO DAILY omega 0-fin-bhx-fish oil [Fish Oil] 300-1,000 mg capsule 1 cap PO DAILY Jardiance 10 mg tablet 10 mg PO DAILY multivitamin [Daily Multi-Vitamin] Tablet 1 tab PO DAILY dorzolamide-timolol 22.3-6.8 mg/mL drops 1 drp OPHTHALMIC (EYE) BID Patient Comments: both eyes latanoprost 0.005 % drops 1 drp OPHTHALMIC (EYE) .qhs Patient Comments: both eyes Held albuterol sulfate [Ventolin HFA] 90 mcg/actuation HFA aerosol inhaler 2 inh inhalation Q6H PRN (Reason: shortness of breath or wheezing) Qty: 8.5 0RF Hold Instructions: Resume on 04/11/24. 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
[2024-04-07] MEDS: AMLODIPINE BESYLATE 5 MG TABLET 10 MG PO (08:08)
[2024-04-07] MEDS: GLIMEPIRIDE 2 MG TABLET PO (08:08)
[2024-04-07] MEDS: METOPROLOL TARTRATE 25 MG TABLET 75 MG PO (08:08)
[2024-04-07] MEDS: PREDNISONE 20 MG TABLET 40 MG PO (08:08)
[2024-04-07] MEDS: CANAGLIFLOZIN 100 MG TABLET PO (08:08)
[2024-04-07] MEDS: DORZOLAMIDE HCL 2%/TIMOLOL MALEATE 0.5% 200 DROP/10 ML BOTTLE OP (08:08)
[2024-04-07] MEDS: POTASSIUM CHLORIDE 10 MEQ ER TABLET 20 MEQ PO (08:08)
[2024-04-07] MEDS: MULTIVITAMIN TABLET 1 TAB PO (08:09)
[2024-04-07] MEDS: FERROUS SULFATE 325 MG TABLET PO (08:09)
[2024-04-07] MEDS: FISH OIL 1,000 MG CAPSULE 1000 MG PO (08:09)
[2024-04-07] MEDS: CEFDINIR 300 MG CAPSULE 600 MG PO (08:09)
[2024-04-07] MEDS: LISINOPRIL 20 MG TABLET PO (08:09)
--- NOTE | 2024-04-07 08:47 | CM.NOTE ---
Discussed again with pt Important Message From Medicare, pt denies any questions or concerns.
--- NOTE | 2024-04-07 10:01 | SWNOTE1 ---
Pt will be discharged today and will need follow up with PCP. Pt wears home oxygen at 3 liters from [facility] and he will resume his [facility].
--- NOTE | 2024-04-07 10:13 | SWNOTE1 ---
AB faxed CRF, dc med rec, dc summary, Progress note from 04/06/24, PT note from 04/05/24, and OT note from 04/04/24 to Surya .
--- NOTE | 2024-04-07 10:53 | PC.NURSE ---
discharge instructions given to pt and . pt dressed and taken to exit in wheelchair with belongings
--- NOTE | 2024-04-08 14:08 | CM.DCFOLLOWU ---
Person spoke with: Ar How are you feeling? Good How is your pain? No pain Did you understand your discharge instructions? Yes Do you have any questions about your discharge instructions? No Were you given any prescriptions at discharge? Yes Were you able to get your prescriptions filled? Yes Do you understand how to take your medications as ordered? Yes Do you have any questions about your follow up appointment and do you plan to keep your follow up appointment? No they are scheduled and I plan on going Is there anything else that you would like to discuss? No Questions/Comments/Concerns/Other:
--- NOTE | 2024-04-09 14:44 | CM.NOTE ---
Faxed sputum culture to Dr. Sahu's office.
== END 2024-04-07 10:50 | disposition home health service (06) | DRG 193 ==
LOC: ER 12:04 → MS 13:20
PROVIDERS: Admitting Provider Family Medicine; Emergency Provider Emergency Medicine; PCP Family Medicine; Visit Provider Family Medicine
DX: J18.9 Pneumonia, unspecified organism (principal); I50.23 Acute on chronic systolic (congestive) heart failure; J96.21 Acute and chronic respiratory failure with hypoxia; I13.0 Hypertensive heart and chronic kidney disease with heart failure and stage 1 through stage 4 chronic kidney disease, or unspecified chronic kidney disease; I48.21 Permanent atrial fibrillation; R22.2 Localized swelling, mass and lump, trunk; N18.2 Chronic kidney disease, stage 2 (mild); E11.22 Type 2 diabetes mellitus with diabetic chronic kidney disease; D50.9 Iron deficiency anemia, unspecified; D63.1 Anemia in chronic kidney disease; E78.00 Pure hypercholesterolemia, unspecified; J43.2 Centrilobular emphysema; K21.9 Gastro-esophageal reflux disease without esophagitis; Z79.84 Long term (current) use of oral hypoglycemic drugs; Z79.01 Long term (current) use of anticoagulants; Z99.81 Dependence on supplemental oxygen; C61 Malignant neoplasm of prostate; Z95.5 Presence of coronary angioplasty implant and graft; Z87.891 Personal history of nicotine dependence; Z79.899 Other long term (current) drug therapy; Z95.0 Presence of cardiac pacemaker; K44.9 Diaphragmatic hernia without obstruction or gangrene; I25.10 Atherosclerotic heart disease of native coronary artery without angina pectoris; I35.0 Nonrheumatic aortic (valve) stenosis
CPT/HCPCS: 36415; 71045; 71046; 71275; 80048; 80076; 81001; 82805; 82948; 83605; 83735; 83880; 84484; 85007; 85025; 85027; 87040; 87070; 87106; 87205; 87804; 87811; 93005; 94640; 94667; 94668; 94761; 94799; 96365; 96367; 97110; 97161; 97165; 97530; 97535; 99285; J0456; J0696; J2543; J2919; J7512; Q9967

== ENCOUNTER 2024-05-01 07:39 | Outpatient (RCR) | payer MEDICARE, SELFPAY ==
[2024-04-29 13:44] LABS: Basophils Percent Auto 0.4 % (0.2-2.0); Eosinophils Absolute Auto 0.3 10^3/uL (0.0-0.7); Hematocrit 43.6 % (42.0-54.0); Hemoglobin 13.9 g/dL (14.0-18.0); Immature Granulocytes Abs Auto 0.03 10^3/uL (0.00-0.03); Immature Granulocytes Pct Auto 0.4 % (0.0-0.5); Lymphocytes Absolute Auto 0.4 10^3/uL (1.2-3.8); Lymphocytes Percent Auto 5.5 % (20.5-60.0); Mean Corpuscular HGB Conc 31.9 g/dL (29.9-35.2); Mean Corpuscular Hemoglobin 29.4 pg (25.9-34.0); Mean Corpuscular Volume 92.4 fL (80.0-94.0); Mean Platelet Volume 10.4 fL (9.5-13.5); Monocytes Absolute Auto 0.8 10^3/uL (0.3-0.8); Monocytes Percent Auto 10.8 % (1.7-12.0); Neutrophils Absolute Auto 5.9 10^3/uL (1.4-6.5); Neutrophils Percent Auto 78.9 % (43.0-75.0); Platelet Count 253 10^3/uL (150-450); Red Blood Count 4.72 10^6/uL (4.70-6.10); Red Cell Distribution Width 16.4 % (11.0-15.0); White Blood Count 7.5 10^3/uL (4.0-11.0)
[2024-04-29 14:26] LABS: Alanine Aminotransferase 21 U/L (16-63); Albumin Globulin Ratio 1.1; Albumin Level 3.4 g/dL (3.4-5.0); Alkaline Phosphatase 82 U/L (46-116); Anion Gap 9.8; Aspartate Amino Transferase 16 U/L (15-37); BUN Creatinine Ratio 15.1; Bilirubin Total 0.9 mg/dL (0.2-1.0); Calcium 9.5 mg/dL (8.5-10.1); Carbon Dioxide 32.9 mmol/L (21.0-32.0); Chloride 100 mmol/L (98-107); Estimated GFR (African America >60 (>=60 mL/min/1.73m^2); Estimated GFR (Non-African Ame 59 (>=60 mL/min/1.73m^2); Globulin 3.2 g/dL; Glucose 145 mg/dL (74-106); Magnesium 1.8 mg/dL (1.8-2.4); Potassium 4.7 mmol/L (3.5-5.1); Sodium 138 mmol/L (136-145); Total Protein 6.6 g/dL (6.4-8.2)
[2024-04-30 05:08] LABS: HBsAg Screen Negative (Negative); Hep B Core Ab, Tot Negative (Negative); Hepatitis B Surf Ab Quant <3.5 mIU/mL (Immunity>10)
== END 2024-05-02 07:56 | disposition home or self-care (01) ==
LOC: HEMC 07:39
PROVIDERS: PCP Family Medicine; Visit Provider Internal Medicine Hematology & Oncology
DX: C34.92 Malignant neoplasm of unspecified part of left bronchus or lung (principal); R59.0 Localized enlarged lymph nodes; R11.2 Nausea with vomiting, unspecified; Z95.5 Presence of coronary angioplasty implant and graft; Z85.46 Personal history of malignant neoplasm of prostate; Z87.891 Personal history of nicotine dependence; R91.8 Other nonspecific abnormal finding of lung field; J44.9 Chronic obstructive pulmonary disease, unspecified; I50.9 Heart failure, unspecified; Z95.0 Presence of cardiac pacemaker; R09.02 Hypoxemia; Z99.81 Dependence on supplemental oxygen
CPT/HCPCS: 36415; 80053; 83735; 84443; 85025; 86317; 86704; 87340; 99211; G0463

== ENCOUNTER 2024-05-12 10:01 | Outpatient (OUT) | payer MEDICARE, SELFPAY ==
--- OUTSIDE RECORDS SUMMARY | 2024-05-12 10:23 | XMS_ITS | CCD ---
Author Organization [facility] Care Team Providers Care Director Of Institutional Sales Name Role Phone KYA EHAB Shanda Attending Unavailable RAMYA FLANAGAN Admitting Unavailable JOSY DELACRUZ Referring Unavailable JOSY DELACRUZ Primary Care Unavailable SEVERIANO, LAURA Admitting Unavailable SEVERIANO, LAURA Consulting Unavailable SEVERIANO, LAURA Attending Unavailable NUBIA, DR FERRIS Primary Care Unavailable SEVERIANO, LAURA Attending Unavailable SEVERIANO LAURA Admitting Unavailable SEVERIANO, LAURA Consulting Unavailable NUBIA, DR FERRIS Primary Care Unavailable ELTAJERROD, DR BUI Admitting Unavailable NUBIA, DR FERRIS Primary Care Unavailable ELTAHAWLatha, DR BUI Consulting Unavailable ELTAHAWLatha, DR BUI Attending Unavailable ALFIE, DR KILGORE Admitting Unavailable ALFIE, DR KILGORE Consulting Unavailable ALFIE, DR KILGORE Attending Unavailable NUBIA, DR FERRIS Primary Care Unavailable Josy Delacruz Primary Care Physician Yousuf JUDGE Attending Unavailable Yousuf JUDGE Attending Unavailable KELY BORDEN Attending Unavailable KELY BORDEN Attending Unavailable KELY BORDEN Attending Unavailable KELY BORDEN Attending Unavailable KELY BORDEN Attending Unavailable Unavailable Primary Care Provider UnavailJosy David MD Primary Care Provider [phone] Josy Delacruz MD Primary Care Provider [phone] Comfort Bradshaw MD Attending Provider Comfort Bradshaw Attending Unavailable Comfort Bradshaw Admitting Unavailable Josy Delacruz Primary Care Unavailable Yanelis BRADSHAW Attending Unavailable JOAQUIM, MEETA Referring Unavailable JOSY DELACRUZ Primary Care Unavailable Yanelis BRADSHAW Referring Unavailable HOY, JOSY M Primary Care Unavailable Yanelis BRADSHAW Attending Unavailable ENGELERYanelis Referring Unavailable HOY, JOSY M Primary Care Unavailable AUGUSTINE G JUNO Attending Unavailable ENGELER G JUNO Referring Unavailable HOY, JOSY M Primary Care Unavailable ENGELERYanelis Referring Unavailable HOY, JOSY M Primary Care Unavailable JACKY RUIZ Attending Unavailable CHRIS DIXON Attending Unavailable OMBALLI, CARA Attending Unavailable OMBALLI, MOHAMED Referring Unavailable OMBALLI, MOHAMED Referring Unavailable OMBALLI, MOHAMED Attending Unavailable OMBALLI, MOHAMED Referring Unavailable OMBALLI, MOHAMED Referring Unavailable UBEROI, RAVINDERA Referring Unavailable OMBALLI, MOHAMED Referring Unavailable AARON RIVAS Attending Unavailable AARON RIVAS Admitting Unavailable AARON RIVAS Referring Unavailable CHRIS DIXON Attending Unavailable CHRIS DIXON Attending Unavailable Medications Current Medications Medication Drug Class(es) Dates Sig (Normalized) Sig (Original) Amlodipine (15 sources) Dihydropyridine Calcium Channel Pushpa Start: 04-25-2019 amlodipine Oral, Daily, Refills(s) 0 Start Date: 04/25/19 Status: Ordered take 1 tablet by mouth once syed y amLODIPine (NORVASC) 10 mg tablet Take 10 mg by mouth once daily. Active amLODIPine 10 mg / benazepril hydrochloride 20 mg oral capsule (17 sources) Dihydropyridine Calcium Channel Pushpa, Angiotensin Converting Enzyme Inhibitor Start: 08-12-2018 take 1 capsule by mouth once daily Amlodipine-Benazepril 10-20 mg Capsule Active 1 CAP PO Daily August 11, 2018 11:00pm aspirin 81 mg delayed release oral tablet (3 sources) Platelet Aggregation Inhibitor, Nonsteroidal Anti-inflammatory Drug take 1 tablet by mouth in the morning aspirin 81 MG EC tablet Take 1 tablet by mouth in the morning. Active atorvastatin 80 mg oral tablet (6 sources) HMG-CoA Reductase Inhibitor Start: 04-25-2021 take 1 mg by mouth once daily atorvastatin 80 mg Tab mg tab(s), Oral, Daily, Refills(s) 0 Start Date: 04/25/21 Status: Ordered carvedilol 12.5 mg oral tablet (9 sources) alpha-Adrenergic Pushpa, beta-Adrenergic Pushpa Start: 04-03-2022 take 1 tablet by mouth [...] twice a day by oral route. Active cefdinir 300 mg oral capsule (12 sources) Cephalosporin Antibacterial take 1 capsule by mouth twice daily cefdinir (OMNICEF) 300 mg capsule Take 300 mg by mouth two times a day. Active cinnamon bark 500 mg oral capsule (13 sources) take 2 capsules by mouth once daily Cinnamon Bark (CINNAMON) 500 mg cap Take 1,000 mg by mouth once daily. Active Cinnamon Preparation (3 sources) Non-Standardized Food Allergenic Extract Start: 020 take 1 mg by mouth twice daily cinnamon mg, Oral, BID, Refills(s) 0 Start Date: 04/25/19 Status: Ordered clopidogrel 75 mg oral tablet (3 sources) P2Y12 Platelet Inhibitor Start: 022 take 1 mg by mouth once daily clopidogrel 75 mg Tab mg tab(s), Oral, Daily, Refills(s) 0 Start Date: 04/25/21 Status: Ordered docosahexaenoic acid 120 mg / eicosapentaenoic acid 180 mg oral capsule (3 sources) omega-3 (fish oi l) 1000 MG capsule 1 capsule 1 (one) time each day at the same time. Active DOCOSAHEXANOIC ACID/EPA (FISH OIL ORAL) (13 sources) DOCOSAHEXANOIC ACID/EPA (FISH OIL ORAL) Take by mouth. Active dorzolamide 20 mg/ml / timolol 5 mg/ml ophthalmic solution (4 sources) Carbonic Anhydrase Inhibitor, beta-Adrenergic Pushpa Start: 024 End: 026 take 1 drop(s) into the eye(s) in the morning dorzolamide-timolol (Cosopt) 2-0.5 % ophthalmic solution Indications: Primary open angle glaucoma (POAG) of both eyes, mild stage (CMS/HCC) Administer 1 drop into both eyes in the morning and 1 drop before bedtime. 10 mL 5 05/02/2024 05/02/2025 Active empagliflozin 10 mg oral tablet (15 sources) Sodium-Glucose Cotransporter 2 Inhibitor take 1 tablet by mouth in the morning Jardiance 10 MG Take 1 tablet by mouth in the morning. Active ferrous sulfate 325 mg delayed release oral tablet (7 sources) Start: 022 take 1 mg by mouth once daily ferrous sulfate 325 mg oral enteric coated tablet mg tab(s), Oral, Daily, Refills(s) 0 Start Date: 04/25/21 Status: Ordered Start: 08-12-2018 take 1 tablet by mouth once da awais Ferrous Sulfate (Iron) 325 mg (65 mg iron) Tablet Active 325 MG PO Daily August 11, 2018 11:00pm Fish Oils (3 sources) Start: 04-25-2019 Fish Oil Oral, Refill(s) 0 Start Date: 04/25/19 Status: Ordered fluconazole 200 mg oral tablet (12 sources) Azole Antifungal take 1 tablet by mouth once daily fluconazole (DIFLUCAN) 200 mg tablet Take 200 mg by mouth once daily. Active furosemide 40 mg oral tablet (18 sources) Loop Diuretic Start: 04-25-2021 take 1 mg by mouth once daily furosemide 40 mg Tab mg tab(s), Oral, Daily, Refills(s) 0 Start Date: 04/25/21 Status: Ordered take 1 tablet by mouth twice jessenia ly furosemide (Lasix) 20 MG tablet Take 1 tablet twice a day by oral route for 90 days. Active glimepiride (20 sources) Sulfonylurea Start: 04-25-2019 glimepiride Or al, Daily, Refills(s) 0 Start Date: 04/25/19 Status: Ordered Start: 04-26-2017 take 1 tablet by quyen th once daily glimepiride (AMARYL) 2 mg tablet Take 2 mg by mouth once daily. 3 04/26/2017 Active take 1 tablet by quyen th in the morning glimepiride (Amaryl) 4 MG tablet Take 1 tablet by mouth in the morning and 1 tablet before bedtime. Active Iron Chews (3 sources) Start: 04-25-2019 take 1 mg by mouth once daily Iron Chews mg, Oral, Daily, Refills(s) 0 Start Date: 04/25/19 Status: Ordered IRON,CARB/VIT C/VIT B12/FOLIC (IRON 100 PLUS ORAL) (13 sources) IRON,CARB/VIT C/VIT B12/FOLIC (IRON 100 PLUS ORAL) Take by mouth. Active latanoprost 0.05 mg/ml ophthalmic solution (16 sources) Prostaglandin Analog Start: 05-02-2024 take 1 drop(s) into the eye(s) at bedtime latanoprost (Xalatan) 0.005 % ophthalmic solution Indications: Primary open angle glaucoma (POAG) of both eyes, mild stage (CMS/HCC) Administer 1 drop into both eyes at bedtime 2.5 mL 5 05/02/2024 Active Start: 07-16-2023 End: 05-02-2024 take 1 drop(s) into the eye(s) at bedtime latanoprost (Xalatan) 0.005 % ophthalmic solution Indications: Primary open angle glaucoma (POAG) of both eyes, mild stage (CMS/HCC) INSTILL 1 DROP INTO BOTH EYES AT BEDTIME 2.5 mL 5 07/16/2023 05/02/2024 Discontinued (Reorder) LATANOPROST OPHT HALMIC Use in eyes. Active levoFLOXacin 500 mg oral tablet (3 sources) Quinolone Antimicrobial levoFLOXacin (Levaquin) 500 MG tablet 1 (one) time each day at the same time. Active lisinopril 20 mg oral tablet (12 sources) Angiotensin Converting Enzyme Inhibitor take 1 tablet by mouth once daily lisinopril (ZESTRIL) 20 mg tablet Take 20 mg by mouth once daily. Active losartan potassium 25 mg oral tablet (3 sources) Angiotensin 2 Receptor Pushpa Start: 04-25-19 take 1 mg by mouth once daily losartan 25 mg Tab mg tab(s), Oral, Daily, Refills(s) 0 Start Date: 04/25/21 Status: Ordered metFORMIN (20 sources) Biguanide Start: 04-25-19 metformin Oral, Refills(s) 0 Start Date: 04/25/19 Status: Ordered Start: 08-12-2018 take 1 tablet by quyen th once daily in the evening Metformin 500 mg Tablet Extended Release 24 Hr Active 500 MG PO Every evening August 11, 2018 11:00pm Start: 05-23-2016 metFORMIN (GLU COPHAGE) 500 mg tablet Indications: Cancer of prostate w/med recur risk (T2b-c or Gonz[place] 7 or PSA 10-20) ([facility]) 05/23/2016 Active 24 hr metoprolol succinate 50 mg extended release oral tablet (16 sources) beta-Adrenergic Pushpa Start: 04-25-2019 take 1 mg by mouth once daily metoprolol 50 mg ER Tab mg tab(s), Oral, Daily, Refills(s) 0 Start Date: 04/25/19 Status: Ordered take 1 tablet by mouth once syed y metoprolol succinate ER (TOPROL XL) 50 mg 24 hr tablet Take 75 mg by mouth once daily. Active mometasone furoate 1 mg/ml topical cream (3 sources) Corticosteroid mometasone (Eloc on) 0.1 % cream 1 application 1 (one) time each day at the same time. Active Multi Vitamin+ (3 sources) Start: 04-25-19 Multi Vitamin+ Refill(s) 0 Start Date: 04/25/19 Status: Ordered Multiple Vitamins-Minerals (Multivitamin Men) tablet (3 sources) Multiple Vitamins-Minerals (Multivitamin Men) tablet as directed Orally Active Multivitamin capsule (13 sources) take 1 capsule by mouth once daily Multivitamin capsule Take 1 capsule by mouth once daily. Active pantoprazole 40 mg delayed release oral tablet (18 sources) Proton Pump Inhibitor Start: 10-14-19 take 1 mg by mouth once daily Pantoprazole [address] Tab mg tab(s), Oral, Daily, Refills(s) 0 Start Date: 10/13/22 Status: Ordered potassium chloride 10 meq extended release oral tablet (12 sources) take 1 tablet by mouth twice daily potassium chloride (K-TAB) 10 mEq tablet Take 10 mEq by mouth two times a day. Active predniSONE 10 mg oral tablet (12 sources) take 1 tablet by mouth once daily predniSONE (DELTASONE) 10 mg tablet Take 10 mg by mouth once daily. Active Xarelto (20 sources) Factor Xa Inhibitor Start: 04-25-19 Xarelto Oral, Refills(s) 0 Start Date: 04/25/19 Status: Ordered Start: 08-12-2018 take 1 tablet by quyen th once daily Rivaroxaban (Xarelto) 20 mg Tablet Active 20 MG PO Daily August 11, 2018 11:00pm Simvastatin (20 sources) HMG-CoA Reductase Inhibitor Start: 04-25-2019 simvastatin Oral, Refills(s) 0 Start Date: 04/25/19 Status: Ordered Start: 04-15-2018 simvastatin (Z OCOR) 20 mg tablet 04/15/2018 Active Completed/Discontinued Medications Medication Drug Class(es) Dates Sig (Normalized) Sig (Original) ciprofloxacin 500 mg oral tablet (1 source) Quinolone Antimicrobial Start: 10-13-2022 End: 10-15-2022 take 1 tablet by mouth once daily Cipro 500 mg Tab 500 mg = 1 tab(s), Oral, Daily, Take one tab day before procedure, take one tab after procedure, X 2 day(s), # 2 tab(s), Refills(s) 0, Pharmacy: [facility]/pharmacy #[id number], 169, cm, 10/13/22 9:51:00 EDT, Height/Length Dosing, 81.2, kg, 10/13/22 9:51:00 EDT, W... Start Date: 10/13/22 Stop Date: 10/15/22 Status: Ordered Problems Active Problems Problem Classification Problem Date Documented Date Episodic/Chronic Cancer of bronchus; lung (9 sources) Malignant tumor of lung; Translations: [Malignant neoplasm of unspecified part of unspecified bronchus or lung] Onset: 04-30-2024 04-21-2024 Chronic Cancer of prostate (16 sources) Malignant tumor of prostate; Translations: [Malignant neoplasm of prostate] Onset: 07-01-2014 04-25-2019 Chronic Cancer; other respiratory and intrathoracic (1 source) Malignant neoplasm of lower respiratory tract 04-25-2024 Chronic Cardiac dysrhythmias (18 sources) Unspecified atrial fibrillation; Translations: [Atrial fibrillation] Onset: 05-28-2014 04-25-2019 Chronic Cataract (4 sources) Bilateral age-related nuclear cataracts; Translations: [Age-related nuclear cataract, bilateral] Onset: 08-24-2023 11-27-2023 Chronic Chronic obstructive pulmonary disease and bronchiectasis (2 sources) Centrilobular emphysema; Translations: [Centrilobular emphysema] Onset: 03-20-2024 Chronic Conduction disorders (4 sources) Other specified heart block; Translations: [Presence of cardiac pacemaker] Onset: 02-25-2024 Chronic Congestive heart failure; nonhypertensive (4 sources) Chronic systolic (congestive) heart failure; Translations: [Acute systolic (congestive) heart failure] Onset: 05-06-2021 Chronic Coronary atherosclerosis and other heart disease (3 sources) Atherosclerotic heart disease of [place] coronary artery without angina pectoris; Translations: [ASHD [place] W/O ANGINA PECTORIS] Onset: 04-07-2022 Chronic Diabetes mellitus without complication (9 sources) Type 2 diabetes mellitus without complications; Translations: [Diabetes mellitus] Onset: 05-04-2021 Chronic Diabetes mellitus without complication (3 sources) Glycosuria 04-25-2019 Episodic Disorders of lipid metabolism (20 sources) Hyperlipidemia; Translations: [Hyperlipidemia, unspecified] Onset: 05-28-2014 04-25-2019 Chronic Essential hypertension (20 sources) Essential (primary) hypertension; Translations: [Hypertensive disorder] Onset: 05-28-2014 Chronic Genitourinary symptoms and ill-defined conditions (10 sources) Nocturia; Translations: [Nocturia] Onset: 04-21-2022 Episodic Glaucoma (5 sources) Primary open angle glaucoma; Translations: [Primary [...] Retinal detachments; defects; vascular occlusion; and retinopathy (7 sources) Exudative age-related macular degeneration; Translations: [Exudative age-related macular degeneration, right eye, with active choroidal neovascularization] Onset: 09-27-2022 Resolved: 11-27-2023 11-27-2023 Chronic Unclassified (3 sources) Prostatic intraepithelial neoplasia high grade 04-25-2019 Unclassified (2 sources) Permanent atrial fibrillation; Translations: [Permanent atrial fibrillation] Onset: 04-07-2022 Unclassified (2 sources) Chronic atrial fibrillation, unspecified; Translations: [Chronic atrial fibrillation, unspecified] Onset: 04-07-2022 Unclassified (2 sources) Longstanding persistent atrial fibrillation; Translations: [Longstanding persistent atrial fibrillation] Onset: 04-07-2022 Past or Other Problems Problem Classification Problem Date Documented Da te Episodic/Chronic Cancer of prostate (19 sources) Personal history of malignant neoplasm of prostate; Translations: [History of malignant neoplasm of prostate] Onset: 06-09-2015 Episodic Results Test Name Value Interpretation Reference Range Facility Office Visiton 05-05-2024 Follow-up visit [id number] Khadar Dawn 1940 M Date Provider Department Center 05/05/2024 CHRIS ARTHUR Family History Problem Relation Age of Onset Other Father Coronary artery disease Brother Other Brother Family Status - Relation Status Age at Father Brother Level of Service:46425 MO OFFICE/OUTPATIENT ESTABLISHED MOD MDM 30 MIN Reason for Visit and Comments: Atrial Fibrillation [80] - Denies bleeding on Xarelto. He is now on Toprol XL 50mg instead of Lopresser 75mg bid. Congestive Heart Failure [127] - He was admitted to [facility] last month for CHF. Normal [facility] GLUCOSE, BLOOD (POC)on 04-30 Glucose [Mass/Vol] 95 mg/dL 74 - 99 mg/dL [facility] Comment on above: Location:[facility], [address] [place] [address] , [place], [place], [address] The Accu-Chek Inform II glucose meter has not been approved for testing on patients receiving intensive medical intervention or therapy and results from this point of care glucose test should not be used for patient management decisions in these cases. Inaccurate results may also occur from other interfering factors, such as N-acetylcysteine (blood concentrations of greater than 5mg/dL), galactose, extremes of hematocrit (<10 or >65), or high doses of ascorbic acid (vitamin C) greater than 3mg/dL. Consider alternate testing mechanisms (e.g. core lab, blood gas instrument) in the above situations. [facility] NM PET/CT SKULL-THIGH SUBQon 04-30-2024 NM PET/CT SKULL-THIGH SUBQ * * *Final Report* * * DATE OF EXAM: Apr 30 2024 9:22AM NRN [id number] - NM PET/CT SKULL-THIGH SUBQ / PROCEDURE REASON: Malignant neoplasm of unspecified part of unspecified bronchus or lung (HCC) * * * * Physician Interpretation * * * * RESULT: EXAMINATION: BODY FDG PET-CT CLINICAL HISTORY: Malignant neoplasm of unspecified part of unspecified bronchus or lung (HCC) EXAM CATEGORY: Initial treatment strategy. TECHNIQUE: Radiopharmaceutical was administered intravenously followed by PET imaging from the eyes to thighs. Free breathing, low dose CT of the same body region was acquired without IV contrast for attenuation correction and anatomic localization. Unenhanced imaging is limited for the evaluation of some pathology and the acquired CT was not designed to produce diagnostic CT scan quality. Physiologic/non-patholo gic uptake in some body regions could confound or obscure some pathology. * CT Dose-Length Product (DLP): 197 mGy*cm * CT Dose Reduction Employed: Yes * Blood glucose: 95 mg/dL * Injection site: Right Forearm-Antecubital * Injected activity: 10.8 mCi * Uptake Time: 53 minutes * Radiopharmaceutical: T91-[id number] (FDG) COMPARISON: No previous FDG PET/CT available CORRELATION: 04/09/[address] RESULT: REFERENCES: FDG uptake is used as a surrogate marker for glucose metabolism. All reported standardized uptake values represent maximum SUV (SUVmax) per body weight, unless otherwise specified. SUV reference values, as follows: * Blood Pool (Descending Aorta): SUVmax 2.2 * Background Liver: SUVmax 2.9; SUVmean 1.834 Localizer Images: No additional findings. Slightly suboptimal image quality given the heterogeneous background uptake HEAD AND NECK: Head: No radiotracer avid lesion or mass effect in the imaged intracranial compartment. Aerodigestive Tract: No radiotracer avid lesion, including recent postoperative is in the right neck. Lymph Nodes: No radiotracer avid lymphadenopathy. Neck Soft Tissues: No radiotracer avid thyroid nodule. CHEST: Lungs and Pleura: 3.7 cm left upper lobe mass on CT image 83 with max SUV 7.1. Multiple left lung pulmonary nodules measuring up to 0.8 cm on image 92 with max SUV3.2. Some findings may be below FDG PET resolution. Lymph Nodes: 0.8 cm AP window node on image 102, max SUV 4.6. Smaller mildly avid left hilar node may also be metastatic. Mediastinum: Redemonstration of the proximal esophagus, no focal abnormal uptake. Cardiovascular: Blood pool activity. No pericardial effusion. Normal heart size. Chest Wall: No radiotracer avid soft tissue lesion. Left chest pacemaker/AICD, nonspecific uptake posterior to the battery pack, max SUV ABDOMEN AND PELVIS: Hepatobiliary: No radiotracer avid lesion. No measurable mass. Spleen: No radiotracer avid lesion. No splenomegaly. Pancreas: No radiotracer avid lesion. Adrenals: No radiotracer avid nodularity. Urinary Tract: Multiple bilateral presumed renal cysts. Physiologic radiotracer excretion in the renal collecting systems and urinary bladder. No hydronephrosis. GI Tract: No radiotracer avid lesion. No bowel dilation. Colonic diverticulosis. Peritoneum: No radiotracer avid lesion. No ascites. Lymph Nodes: No radiotracer avid lymphadenopathy. Vasculature: Blood pool activity. Vascular calcifications without an abdominal aortic aneurysm, 2.9 cm ectasia noted.. Pelvic Organs: No radiotracer avid lesion, including at the level of the brachytherapy seeds, although FDG is suboptimal for evaluation of prostate malignancies. MUSCULOSKELETAL: Bones: No radiotracer avid lesion. No lytic or sclerotic lesion. Soft Tissues: No radiotracer avid lesion. IMPRESSION HEAD/NECK: * No metabolically active disease. CHEST: * 3.7 cm left upper lobe hypermetabolic mass is concordant with the biopsy-proven malignancy. * Multiple left lung nodules with varying FDG avidity raises the possibility of metastatic/synchronous lesions. No avid lesions and other lobes, although some nodules may be too small to accurately assess and FDG PET/CT. * 0.8 cm AP window node suspicious for regional adri metastasis. ABDOMEN/PELVIS: * No metabolically active disease. * Chronic findings, as described. MUSCULOSKELETAL: * No metabolically active disease. Transcribe Date/Time: May 01 2024 10:12A Dictated by: JORGE NAYLOR MD This examination was interpreted and the report reviewed and electronically signed by: JORGE NAYLOR MD on May 01 2024 11:45AM EST Thank you for allowing us to participate in the care of your patient. Should there be any questions regarding this interpretation, please call [phone]. If you are unable to reach us at the number above, please feel free to contact [facility] eRadiology at [phone]. [id number] Normal [facility] 04-25-2024 [facility] Telephone (RADTSA) KHADAR DAWN ([id number]) 1940 M Date Time Provider Department 04/25/24 Yanelis BRADSHAW During your visit today, we recorded the following information about you: Yanelis Bradshaw MD 04/25/2024 8:28 AM Signed In reviewing simulation images right concern of growing nodules outside of the left upper lobe lesion concerning for metastasis. Recommend holding radiation planning. Recommend reimaging with PET scan. Discussed with Dr. Rodriguez and with patient. Dr. Rodriguez can see patient on Sunday when he is in [place]. Shazia Rooney 04/25/2024 9:44 AM Signed First PET opening is Sunday. Please advise if this is ok? Shazia Rooney 04/25/2024 10:35 AM Signed I apologize, per Radiology I can't use this one. I have to give him the next available which is 05/06 or 05/09. Shazia Rooney 04/25/2024 12:57 PM Signed Khadar is scheduled for a PET scan on Apr 30 with an arrival time of 8am and a scan time of 915. Confirmed with . Edyta Gilliland RN 05/05/2024 11:04 AM Signed CHRISTIE- any update on plan for this pt now that pet is complete? AGGIE Galvez Angela, RN 05/05/2024 4:06 PM Signed Yanelis Bradshaw MD You6 minutes ago (3:59 PM) Send report to [facility]. I think he will be starting systemic tx Edyta Gilliland RN 05/05/2024 4:06 PM Signed Report was faxed to Dr Rodriguez's office this am. Edyta Gilliland RN Allergies As of Date: 04/25/2024 (No Known Allergies) Date Reviewed: 04/16/2024 Reviewed by: Edyta Gilliland RN - Fully Assessed Primary Visit Diagnosis:Malignant neoplasm of unspecified part of unspecified bronchus or lung (HCC) [C34.90] Order(s):NM PET/CT SKULL-THIGH SUBSEQUENT [[id number]] Order #: [id number] FUTURE Prescriptions as of 05/05/2024 - amLODIPine (NORVASC) 10 mg tablet Take 10 mg by mouth once daily. - cefdinir (OMNICEF) 300 mg capsule Take 300 mg by mouth two times a day. - furosemide (LASIX) 40 mg tablet Take 40 mg by mouth once daily. - lisinopril (ZESTRIL) 20 mg tablet Take 20 mg by mouth once daily. - potassium chloride (K-TAB) 10 mEq tablet Take 10 mEq by mouth two times a day. - predniSONE (DELTASONE) 10 mg tablet Take 10 mg by mouth once daily. - fluconazole (DIFLUCAN) 200 mg tablet Take 200 mg by mouth once daily. - LATANOPROST OPHTHALMIC Use in eyes. - empagliflozin (JARDIANCE) 10 mg tablet Take 10 mg by mouth daily with breakfast. - pantoprazole DR (PROTONIX) 40 mg tablet Take 40 mg by mouth once daily. - simvastatin (ZOCOR) 20 mg tablet - glimepiride (AMARYL) 2 mg tablet Take 2 mg by mouth once daily. - IRON,CARB/VIT C/VIT B12/FOLIC (IRON 100 PLUS ORAL) Take by mouth. - metoprolol succinate ER (TOPROL XL) 50 mg 24 hr tablet Take 75 mg by mouth once daily. - metFORMIN (GLUCOPHAGE) 500 mg tablet - Cinnamon Bark (CINNAMON) 500 mg cap Take 1,000 mg by mouth once daily. - Multivitamin capsule Take 1 capsule by mouth once daily. - DOCOSAHEXANOIC ACID/EPA (FISH OIL ORAL) Take by mouth. - amLODIPine-benazepril (LOTREL) 10-20 mg per capsule Take 1 capsule by mouth once daily. - rivaroxaban (XARELTO) 20 mg tablet Take 20 mg by mouth once daily. Problem List As Of Date 04/25/2024 Noted Resolved Atrial fibrillation (HCC) [I48.91] 05/28/2014 Hypertension [I10] 05/28/2014 Hyperlipidemia [E78.5] 05/28/2014 Malignant neoplasm of prostate (HCC) [C61] 07/01/2014 History of prostate cancer [Z85.46] 06/09/2015 Encounter Status:Closed by Yanelis BRADSHAW on 04/25/24 [facility] [place] 04-23-2024 CNOV Office Visit (RADTSA ) HIROKHADAR LEON ([id number]) 1940 M Date Time Provider Department 04/23/24 8:30 AM Yanelis BRADSHAW During your visit today, we recorded the following information about you: Yanelis Bradshaw MD 04/23/2024 9:36 AM Signed sim Referring Provider: Yanelis BRADSHAW [[id number]] Allergies As of Date: 04/23/2024 (No Known Allergies) Date Reviewed: 04/16/2024 Reviewed by: Edyta Gilliland RN - Fully Assessed Primary Visit Diagnosis:Malignant neoplasm of lung, unspecified laterality, unspecified part of lung (HCC) [C34.90] Prescriptions as of 04/23/2024 - amLODIPine (NORVASC) 10 mg tablet Take 10 mg by mouth once daily. - cefdinir (OMNICEF) 300 mg capsule Take 300 mg by mouth two times a day. - furosemide (LASIX) 40 mg tablet Take 40 mg by mouth once daily. - lisinopril (ZESTRIL) 20 mg tablet Take 20 mg by mouth once daily. - potassium chloride (K-TAB) 10 mEq tablet Take 10 mEq by mouth two times a day. - predniSONE (DELTASONE) 10 mg tablet Take 10 mg by mouth once daily. - fluconazole (DIFLUCAN) 200 mg tablet Take 200 mg by mouth once daily. - LATANOPROST OPHTHALMIC Use in eyes. - empagliflozin (JARDIANCE) 10 mg tablet Take 10 mg by mouth daily with breakfast. - pantoprazole DR (PROTONIX) 40 mg tablet Take 40 mg by mouth once daily. - simvastatin (ZOCOR) 20 mg tablet - glimepiride (AMARYL) 2 mg tablet Take 2 mg by mouth once daily. - IRON,CARB/VIT C/VIT B12/FOLIC (IRON 100 PLUS ORAL) Take by mouth. - metoprolol succinate ER (TOPROL XL) 50 mg 24 hr tablet Take 75 mg by mouth once daily. - metFORMIN (GLUCOPHAGE) 500 mg tablet - Cinnamon Bark (CINNAMON) 500 mg cap Take 1,000 mg by mouth once daily. - Multivitamin capsule Take 1 capsule by mouth once daily. - DOCOSAHEXANOIC ACID/EPA (FISH OIL ORAL) Take by mouth. - amLODIPine-benazepril (LOTREL) 10-20 mg per capsule Take 1 capsule by mouth once daily. - rivaroxaban (XARELTO) 20 mg tablet Take 20 mg by mouth once daily. Problem List As Of Date 04/23/2024 Noted Resolved Atrial fibrillation (HCC) [I48.91] 05/28/2014 Hypertension [I10] 05/28/2014 Hyperlipidemia [E78.5] 05/28/2014 Malignant neoplasm of prostate (HCC) [C61] 07/01/2014 History of prostate cancer [Z85.46] 06/09/2015 Encounter Status:Closed by Yanelis BRADSHAW on 04/23/24 [facility] Office Visit (RADTSA ) KHADAR DAWN ([id number]) 1940 M Date Time Provider Department 04/23/24 8:00 AM Yanelis BRADSHAW RADLESAA During your visit today, we recorded the following information about you: Referring Provider: Yanelis BRADSHAW [[id number]] Allergies As of Date: 04/23/2024 (No Known Allergies) Date Reviewed: 04/16/2024 Reviewed by: Edyta Gilliland, AGGIE - Fully Assessed Reason for Visit: Simulation Request Form [4775] Primary Visit Diagnosis:Malignant neoplasm of lung, unspecified laterality, unspecified part of lung (HCC) [C34.90] Order(s):RADIATION TREATMENT PER RADIATION ONCOLOGIST PLAN [[id number]] Order #: [id number]: 1 PT ED CANCER [[id number]] Order #: [id number]: 1 CT SIM PLANNING RADIATION ONCOLOGY [[id number]] Order #: [id number] Prescriptions as of 04/23/2024 - amLODIPine (NORVASC) 10 mg tablet Take 10 mg by mouth once daily. - cefdinir (OMNICEF) 300 mg capsule Take 300 mg by mouth two times a day. - furosemide (LASIX) 40 mg tablet Take 40 mg by mouth once daily. - lisinopril (ZESTRIL) 20 mg tablet Take 20 mg by mouth once daily. - potassium chloride (K-TAB) 10 mEq tablet Take 10 mEq by mouth two times a day. - predniSONE (DELTASONE) 10 mg tablet Take 10 mg by mouth once daily. - fluconazole (DIFLUCAN) 200 mg tablet Take 200 mg by mouth once daily. - LATANOPROST OPHTHALMIC Use in eyes. - empagliflozin (JARDIANCE) 10 mg tablet Take 10 mg by mouth daily with breakfast. - pantoprazole DR (PROTONIX) 40 mg tablet Take 40 mg by mouth once daily. - simvastatin (ZOCOR) 20 mg tablet - glimepiride (AMARYL) 2 mg tablet Take 2 mg by mouth once daily. - IRON,CARB/VIT C/VIT B12/FOLIC (IRON 100 PLUS ORAL) Take by mouth. - metoprolol succinate ER (TOPROL XL) 50 mg 24 hr tablet Take 75 mg by mouth once daily. - metFORMIN (GLUCOPHAGE) 500 mg tablet - Cinnamon Bark (CINNAMON) 500 mg cap Take 1,000 mg by mouth once daily. - Multivitamin capsule Take 1 capsule by mouth once daily. - DOCOSAHEXANOIC ACID/EPA (FISH OIL ORAL) Take by mouth. - amLODIPine-benazepril (LOTREL) 10-20 mg per capsule Take 1 capsule by mouth once daily. - rivaroxaban (XARELTO) 20 mg tablet Take 20 mg by mouth once daily. Problem List As Of Date 04/23/2024 Noted Resolved Atrial fibrillation (HCC) [I48.91] 05/28/2014 Hypertension [I10] 05/28/2014 Hyperlipidemia [E78.5] 05/28/2014 Malignant neoplasm of prostate (HCC) [C61] 07/01/2014 History of prostate cancer [Z85.46] 06/09/2015 Encounter Status:Closed by Yanelis BRADSHAW on 04/23/24 [facility] [place] 04-23-2024 [facility] Telephone (RADTSA) HIROKHADAR LEON ([id number]) 1940 M Date Time Provider Department 04/23/24 Yanelis BRADSHAW During your visit today, we recorded the following information about you: Edyta Gilliland RN 04/23/2024 2:[address] Rodriguez's office called to let us know pt was there for lab today after his visit here. They sent [facility] testing on him which takes [address] Rodriguez wanted to know if Dr Bradshaw felt an MRI or CT brain would be a good idea for patient. If so, Dr Rodriguez would order. Per Dr Bradshaw, he agreed an MRI brain should be order. Their office will take care of ordering and scheduling. Edyta Gilliland RN Allergies As of Date: 04/23/2024 (No Known Allergies) Date Reviewed: 04/16/2024 Reviewed by: Edyta Gilliland, RN - Fully Assessed Reason for Visit: Medical Engineer - Other [[id number]] Prescriptions as of 04/23/2024 - amLODIPine (NORVASC) 10 mg tablet Take 10 mg by mouth once daily. - cefdinir (OMNICEF) 300 mg capsule Take 300 mg by mouth two times a day. - furosemide (LASIX) 40 mg tablet Take 40 mg by mouth once daily. - lisinopril (ZESTRIL) 20 mg tablet Take 20 mg by mouth once daily. - potassium chloride (K-TAB) 10 mEq tablet Take 10 mEq by mouth two times a day. - predniSONE (DELTASONE) 10 mg tablet Take 10 mg by mouth once daily. - fluconazole (DIFLUCAN) 200 mg tablet Take 200 mg by mouth once daily. - LATANOPROST OPHTHALMIC Use in eyes. - empagliflozin (JARDIANCE) 10 mg tablet Take 10 mg by mouth daily with breakfast. - pantoprazole DR (PROTONIX) 40 mg tablet Take 40 mg by mouth once daily. - simvastatin (ZOCOR) 20 mg tablet - glimepiride (AMARYL) 2 mg tablet Take 2 mg by mouth once daily. - IRON,CARB/VIT C/VIT B12/FOLIC (IRON 100 PLUS ORAL) Take by mouth. - metoprolol succinate ER (TOPROL XL) 50 mg 24 hr tablet Take 75 mg by mouth once daily. - metFORMIN (GLUCOPHAGE) 500 mg tablet - Cinnamon Bark (CINNAMON) 500 mg cap Take 1,000 mg by mouth once daily. - Multivitamin capsule Take 1 capsule by mouth once daily. - DOCOSAHEXANOIC ACID/EPA (FISH OIL ORAL) Take by mouth. - amLODIPine-benazepril (LOTREL) 10-20 mg per capsule Take 1 capsule by mouth once daily. - rivaroxaban (XARELTO) 20 mg tablet Take 20 mg by mouth once daily. Problem List As Of Date 04/23/2024 Noted Resolved Atrial fibrillation (HCC) [I48.91] 05/28/2014 Hypertension [I10] 05/28/2014 Hyperlipidemia [E78.5] 05/28/2014 Malignant neoplasm of prostate (HCC) [C61] 07/01/2014 History of prostate cancer [Z85.46] 06/09/2015 Encounter Status:Closed by EDYTA GILLILAND on 04/23/24 [facility] Telephone (RADTSA) KHADAR DAWN ([id number]) 1940 M Date Time Provider Department 04/23/24 Yanelis BRADSHAW During your visit today, we recorded the following information about you: Edyta Gilliland, RN 04/23/2024 10:22 AM Signed Call placed to [facility] [place] ([phone]). Spoke to Kristi to arrange weekly pacemaker checks. Kristi called rep from [employer] and stated he has a single chamber pacemaker and is only paced 6% of the time. Even with the lung field, they feel the risk of any cardiac issues from radiation is very low. They are comfortable with patient doing a home device transmition weekly. We will have pt do this every Sunday once he begins XRT. Calendar reminder set for nursing to let pt know as well. Edyta Gilliland RN Allergies As of Date: 04/23/2024 (No Known Allergies) Date Reviewed: 04/16/2024 Reviewed by: Edyta Gilliland RN - Fully Assessed Reason for Visit: Future Appointment [256] Medical Engineer - Other [[id number]] Cmt: Pacemaker Checks During XRT Prescriptions as of 04/24/2024 - amLODIPine (NORVASC) 10 mg tablet Take 10 mg by mouth once daily. - cefdinir (OMNICEF) 300 mg capsule Take 300 mg by mouth two times a day. - furosemide (LASIX) 40 mg tablet Take 40 mg by mouth once daily. - lisinopril (ZESTRIL) 20 mg tablet Take 20 mg by mouth once daily. - potassium chloride (K-TAB) 10 mEq tablet Take 10 mEq by mouth two times a day. - predniSONE (DELTASONE) 10 mg tablet Take 10 mg by mouth once daily. - fluconazole (DIFLUCAN) 200 mg tablet Take 200 mg by mouth once daily. - LATANOPROST OPHTHALMIC Use in eyes. - empagliflozin (JARDIANCE) 10 mg tablet Take 10 mg by mouth daily with breakfast. - pantoprazole DR (PROTONIX) 40 mg tablet Take 40 mg by mouth once daily. - simvastatin (ZOCOR) 20 mg tablet - glimepiride (AMARYL) 2 mg tablet Take 2 mg by mouth once daily. - IRON,CARB/VIT C/VIT B12/FOLIC (IRON 100 PLUS ORAL) Take by mouth. - metoprolol succinate ER (TOPROL XL) 50 mg 24 hr tablet Take 75 mg by mouth once daily. - metFORMIN (GLUCOPHAGE) 500 mg tablet - Cinnamon Bark (CINNAMON) 500 mg cap Take 1,000 mg by mouth once daily. - Multivitamin capsule Take 1 capsule by mouth once daily. - DOCOSAHEXANOIC ACID/EPA (FISH OIL ORAL) Take by mouth. - amLODIPine-benazepril (LOTREL) 10-20 mg per capsule Take 1 capsule by mouth once daily. - rivaroxaban (XARELTO) 20 mg tablet Take 20 mg by mouth once daily. Problem List As Of Date 04/23/2024 Noted Resolved Atrial fibrillation (HCC) [I48.91] 05/28/2014 Hypertension [I10] 05/28/2014 Hyperlipidemia [E78.5] 05/28/2014 Malignant neoplasm of prostate (HCC) [C61] 07/01/2014 History of prostate cancer [Z85.46] 06/09/2015 Encounter Status:Closed by EDYTA GILLILAND on 04/24/24 [facility] 04-22-2024 [facility] Telephone (HEMASA) KHADAR DAWN ([id number]) 1940 M Date Time Provider Department 04/22/24 Yanelis BRADSHAW During your visit today, we recorded the following information about you: Krystle Faye 04/22/2024 8:58 AM Signed Received call from Hui at [facility] radiology asking for images from last Chest XR be pushed over. Patient is there for thoracentesis and the radiologist is not seeing any fluid. I let her know his last XR chest was done at [facility], and the one before that was at [place]. She will call there for images. She said they will probably not be able to do the thoracentesis since there is no fluid that they can see. Krystle Faye 04/23/2024 8:23 AM Signed Per scanned US report, thoracentesis was not done. Allergies As of Date: 04/22/2024 (No Known Allergies) Date Reviewed: 04/16/2024 Reviewed by: Edyta Gilliland, RN - Fully Assessed Reason for Visit: Thoracentesis [Other] Prescriptions as of 04/23/2024 - amLODIPine (NORVASC) 10 mg tablet Take 10 mg by mouth once daily. - cefdinir (OMNICEF) 300 mg capsule Take 300 mg by mouth two times a day. - furosemide (LASIX) 40 mg tablet Take 40 mg by mouth once daily. - lisinopril (ZESTRIL) 20 mg tablet Take 20 mg by mouth once daily. - potassium chloride (K-TAB) 10 mEq tablet Take 10 mEq by mouth two times a day. - predniSONE (DELTASONE) 10 mg tablet Take 10 mg by mouth once daily. - fluconazole (DIFLUCAN) 200 mg tablet Take 200 mg by mouth once daily. - LATANOPROST OPHTHALMIC Use in eyes. - empagliflozin (JARDIANCE) 10 mg tablet Take 10 mg by mouth daily with breakfast. - pantoprazole DR (PROTONIX) 40 mg tablet Take 40 mg by mouth once daily. - simvastatin (ZOCOR) 20 mg tablet - glimepiride (AMARYL) 2 mg tablet Take 2 mg by mouth once daily. - IRON,CARB/VIT C/VIT B12/FOLIC (IRON 100 PLUS ORAL) Take by mouth. - metoprolol succinate ER (TOPROL XL) 50 mg 24 hr tablet Take 75 mg by mouth once daily. - metFORMIN (GLUCOPHAGE) 500 mg tablet - Cinnamon Bark (CINNAMON) 500 mg cap Take 1,000 mg by mouth once daily. - Multivitamin capsule Take 1 capsule by mouth once daily. - DOCOSAHEXANOIC ACID/EPA (FISH OIL ORAL) Take by mouth. - amLODIPine-benazepril (LOTREL) 10-20 mg per capsule Take 1 capsule by mouth once daily. - rivaroxaban (XARELTO) 20 mg tablet Take 20 mg by mouth once daily. Problem List As Of Date 04/22/2024 Noted Resolved Atrial fibrillation (HCC) [I48.91] 05/28/2014 Hypertension [I10] 05/28/2014 Hyperlipidemia [E78.5] 05/28/2014 Malignant neoplasm of prostate (HCC) [C61] 07/01/2014 History of prostate cancer [Z85.46] 06/09/2015 Encounter Status:Closed by KRYSTLE FAYE on 04/23/24 [facility] US guide or thoracentesison 04-22-2024 US guide or thoracentesis [facility] [address] [address] Ultrasound Report Signed Patient: Khadar Dawn MR#: [id number] : 1940 Acct:[id number] Age/Sex: 84 / M ADM Date: 04/22/24 Loc: Room: Type: [facility] Attending Dr: Comfort Bradshaw MD Ordering Provider: Yanelis Bradshaw MD Date of Service: 04/22/24 US/US guide or thoracentesis: THORA Copies to: Yanelis Bradshaw MD ULTRASOUND-GUIDED THORACENTESIS INDICATION: REPORTED EFFUSION COMPARISON: NONE US/US guide or thoracentesis FINDINGS/IMPRESSION: ULTRASOUND LEFT CHEST WALL DEMONSTRATE NO FLUID COLLECTION. PROCEDURE NOT PERFORMED. Impression dictated by: Hal Mojica M.D.04/22/2024 2:57 PM Dictation Location: [place] [address] Tech: Javier Vidal Transcribed By: QING 04/22/241456 Dictated By: Hal Mojica MD 04/22/241455 Signed By: 04/22/24 145 Normal [facility] [place] 04-21-2024 [facility] Telephone (NCCAP) KHADAR DAWN ([id number]) 1940 M Date Time Provider Department 04/21/24 Yanelis BRADSHAW During your visit today, we recorded the following information about you: Romi Faust 04/21/2024 8:35 AM Signed Erich from Dr. Rodriguez's office called asking for past progress notes for the patient. He stated that the patient was referred and they have not received any information. Please fax records to [phone]. Krystle Faye 04/21/2024 3:36 PM Signed Consult note faxed to Dr. Rodriguez. Allergies As of Date: 04/21/2024 (No Known Allergies) Date Reviewed: 04/16/2024 Reviewed by: Edyta Gilliland, AGGIE - Fully Assessed Prescriptions as of 04/21/2024 - amLODIPine (NORVASC) 10 mg tablet Take 10 mg by mouth once daily. - cefdinir (OMNICEF) 300 mg capsule Take 300 mg by mouth two times a day. - furosemide (LASIX) 40 mg tablet Take 40 mg by mouth once daily. - lisinopril (ZESTRIL) 20 mg tablet Take 20 mg by mouth once daily. - potassium chloride (K-TAB) 10 mEq tablet Take 10 mEq by mouth two times a day. - predniSONE (DELTASONE) 10 mg tablet Take 10 mg by mouth once daily. - fluconazole (DIFLUCAN) 200 mg tablet Take 200 mg by mouth once daily. - LATANOPROST OPHTHALMIC Use in eyes. - empagliflozin (JARDIANCE) 10 mg tablet Take 10 mg by mouth daily with breakfast. - pantoprazole DR (PROTONIX) 40 mg tablet Take 40 mg by mouth once daily. - simvastatin (ZOCOR) 20 mg tablet - glimepiride (AMARYL) 2 mg tablet Take 2 mg by mouth once daily. - IRON,CARB/VIT C/VIT B12/FOLIC (IRON 100 PLUS ORAL) Take by mouth. - metoprolol succinate ER (TOPROL XL) 50 mg 24 hr tablet Take 75 mg by mouth once daily. - metFORMIN (GLUCOPHAGE) 500 mg tablet - Cinnamon Bark (CINNAMON) 500 mg cap Take 1,000 mg by mouth once daily. - Multivitamin capsule Take 1 capsule by mouth once daily. - DOCOSAHEXANOIC ACID/EPA (FISH OIL ORAL) Take by mouth. - amLODIPine-benazepril (LOTREL) 10-20 mg per capsule Take 1 capsule by mouth once daily. - rivaroxaban (XARELTO) 20 mg tablet Take 20 mg by mouth once daily. Problem List As Of Date 04/21/2024 Noted Resolved Atrial fibrillation (HCC) [I48.91] 05/28/2014 Hypertension [I10] 05/28/2014 Hyperlipidemia [E78.5] 05/28/2014 Malignant neoplasm of prostate (HCC) [C61] 07/01/2014 History of prostate cancer [Z85.46] 06/09/2015 Encounter Status:Closed by KRYSTLE FAYE on 04/21/24 [facility]OVon 04-16-2024 CNOV Office Visit (RADTSA ) KHADAR DAWN ([id number]) 1940 M Date Time Provider Department 04/16/24 1:00 PM Yanelis BRADSHAW During your visit today, we recorded the following information about you: Temperature Respiration Blood pressure Weight 96.7 degrees 18/minute 121/72 75.2 kg Edyta Gilliland RN 04/21/2024 3:24 PM Signed Pacemaker/Defibrillator ? Yes 03/03 placed Previous Cancer(s)? Yes Prostate Previous Radiation? Yes- Here Lupus/Scleroderma?No On body monitoring device? No AGGIE Galvez G Phillip, MD 04/21/2024 3:24 PM Signed Radiation Oncology - New Patient/Consult Note PATIENT NAME: Khadar Dawn PATIENT REQUESTING PROVIDER: Dr. 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 RADIATION SUMMARY: Course 1: 08/24/2014 - 09/28/2014 pelvis and prostate 4500 cGy in 25 fractions followed by palladium-103 100 [place] brachytherapy boost on 10/29/2014 HPI: 84 year old male who presents with above diagnosis, for an opinion regarding the role of radiation therapy in the management of the patient's disease. Final recommendations will be communicated back to the requesting physician by way of the shared medical record, or letter to requesting physician via US mail. Patient presented with increased shortness of breath. He underwent evaluation including CT angiogram as noted below. CTA chest 01/10/2024 demonstrating no evidence of pulm embolism. However spiculated 3.4 cm left lung apical mass notable. Additional adjacent irregular nodules left upper lobe. No suspicious hilar or mediastinal adenopathy. Dilated fluid-filled esophagus notable. Patient underwent PET/CT on 02/18/2024 with the finding of a hypermetabolic mass left lung apex, SUV max 11.8, measuring 3 x 2.8 cm. 2 adjacent hypermetabolic nodules measuring 1.4 x 0.9 cm SUV max of 12.1 and 0.7 cm SUV max 3.7. Ground glass changes also seen bilateral lung apices. Hypermetabolic mediastinal lymph node (prevascular) SUV max 510 mm short axis dimension. Bronchoscopy with EBUS on 04/09/2024. No endobronchial lesion identified. EBUS demonstrating 10 mm station 7 lymph node, which was able to be biopsied/FNA. No other enlarged or suspicious lymph nodes. Pathology demonstrating sclerotic lung and blood clot with rare strips of malignant glandular cells on left upper lobe biopsy. Additionally from cytology: Left upper lobe FNA: Adenocarcinoma Left upper lobe washing,: Adenocarcinoma Lymph node station 7 EBUS guided FNA negative for malignancy. Photopenic cystic pancreatic lesion identified. He underwent additional CT chest 04/09/24 demonstratin. Suspicious left upper lobe lung mass with numerous lung nodules bilaterally suggesting possible metastatic disease. 2. Dilated fluid-filled esophagus appears patulous. There is focal outpouching along the posterior wall of the esophagus along its right posterior aspect () measuring roughly 2.5 x 2 cm, this contains internal high density material, it is possible this may reflect a diverticulum however recommend esophagram evaluation for confirmation. 3. Pancreatic mass as described, recommend MRCP evaluation in size. 4. Small right adrenal adenoma 1.3 cm, slight left adrenal thickening. However given history of possible lung cancer consider imaging follow-up. Focused ROS: Fatigue: moderate Weight loss: 10-15 Appetite: fair Nausea: no Shortness of breath: Moderate Cough: Mild Hemoptysis: No Dysphagia: No Pain with swallowing: No ALLERGIES No Known Allergies MEDICATIONS: simvastatin (ZOCOR) 20 mg tablet glimepiride (AMARYL) 2 mg tablet Take 2 mg by mouth once daily. IRON,CARB/VIT C/VIT B12/FOLIC (IRON 100 PLUS ORAL) Take by mouth. metoprolol succinate ER (TOPROL XL) 50 mg 24 hr tablet Take 50 mg by mouth once daily. metFORMIN (GLUCOPHAGE) 500 mg tablet Cinnamon Bark (CINNAMON) 500 mg cap Take 1,000 mg by mouth once daily. Multivitamin capsule Take 1 capsule by mouth once daily. DOCOSAHEXANOIC ACID/EPA (FISH OIL ORAL) Take by mouth. amLODIPine-benazepril (LOTREL) 10-20 mg per capsule Take 1 capsule by mouth once daily. rivaroxaban (XARELTO) 20 mg tablet Take 20 mg by mouth once daily. PAST MEDICAL HISTORY Diagnosis Date Atrial fibrillation (HCC) 05/24/14 Diabetes mellitus (HCC) Eczema Hyperlipidemia Hypertension Occlusion and stenosis of carotid artery without mention of cerebral infarction Prostate cancer (HCC) Sinusitis Wart right hand Prior radiation therapy, collagen vascular disease, or inflammatory bowel disease: No Any implanted or external electric devices? No PAST SURGICAL HISTORY Procedure Laterality D (more content not included)... Normal [facility] [place] [facility] KHADAR DAWN ([id number]) 1940 M Date Time Provider Department 04/16/24 Yanelis BRADSHAW During your visit today, we recorded the following information about you: Rojelio Guajardo RN 04/16/2024 2:37 PM Signed PSS/RT: Please schedule [facility] IR for thoracentis return for sim after treating lung no contrast 15 treatments, no concurrent chemo Need presim consent Nurse ed today Consult with Dr. Ponce to establish care with local manager site. pt does not want to travel to current manager site in [place]. Thanks AGGIE Jimenez Jodi 04/17/2024 9:08 AM Signed Waiting on orders to be signed to fax to IR [facility] Rojelio Guajardo RN 04/18/2024 9:54 AM Signed Order is signed. Please arrange thoracentesis appt lizette. Thanks AGGIE Jimenez Trisha 04/18/2024 11:26 AM Signed Everything is faxed to [facility] for Shazia Perez and I will check with [facility] daily to see when scheduled I called Dr Ponce office and got a voicemail stating they are away from their desk. I left a message asking them to return my call as I have a referral I would like to get scheduled. Will update when I hear back from them Yolanda STALEY Yolanda Lora 04/18/2024 11:[address] Ponce office returned my call. Asked if I would fax everything to their referral fax line. They will review and contact the patient for an appointment. All info was faxed to [phone] Will follow up to see when appt is scheduled Shazia Britton 04/18/2024 3:08 PM Signed Patient scheduled at [facility] on 04/22 at 9am. Arrive at 8am and stop Xarelto 2 days prior. LM for patient of this information and I will call back tomorrow to confirm he got it. Vicki Dockery, RT(R) 04/21/2024 7:12 AM Signed Sim scheduled on 04/23/24 at 830am PSS - please schedule pre sim consent with CHRISTIE at 8am AND notify pt of 745 arrival time, no special instructions. Thanks! Vicki Dockery, RT(R)(T) Shazia Rooney 04/21/2024 9:21 AM Signed Spoke to patient, confirmed pre sim and arrival time 04/23 at 745am. Shazia Rooney 04/21/2024 9:38 AM Signed JACLYN Claudio could you please fax demographics and records to DR. Ponce office at [phone]. He is having a thoracentesis on 04/22. She would like records faxed and images pushed of those as well. Thanks so much Shazia Rooney 04/21/2024 2:25 PM Signed Referral was sent to [facility] and [facility]. Confirmed patient to be scheduled in [place] with Dr. Ponce on 04/23 at 3pm. I called [facility] and explained sent by mistake to please disregard. Krystle Faye 04/21/2024 2:28 PM Signed Records faxed to Dr. Ponce's [facility]. Allergies As of Date: 04/16/2024 (No Known Allergies) Date Reviewed: 04/16/2024 Reviewed by: Edyta Gilliland RN - Fully Assessed Reason for Visit: Appointment [186] Orders [681] Primary Visit Diagnosis:Malignant neoplasm of lung, unspecified laterality, unspecified part of lung (HCC) [C34.90] Order(s):BODY FLUID CELL COUNT [SQCCBF] Order #: [id number] FUTURE GLUCOSE, BODY FLUID [SQBFGLUC] Order #: [id number] FUTURE LACTATE DEHYDROGENASE, BODY FLUID [SQBFLDH] Order #: [id number] FUTURE PH BODY FLUID [SQFLPH] Order #: [id number] FUTURE AFB CULTURE AND STAIN [SQAFC] Order #: [id number] FUTURE BACTERIAL CULTURE AND GRAM STAIN, STERILE BODY FLUID [SQBFCUL] Order #: [id number] FUTURE CYTOLOGY 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 - cefdinir (OMNICEF) 300 mg capsule Take 300 mg by mouth two times a day. - furosemide (LASIX) 40 mg tablet Take 40 mg by mouth once daily. - lisinopril (ZESTRIL) 20 mg tablet Take 20 mg by mouth once daily. - potassium chloride (K-TAB) 10 mEq tablet Take 10 mEq by mouth two times a day. - predniSONE (DELTASONE) 10 mg tablet Take 10 mg by mouth once daily. - fluconazole (DIFLUCAN) 200 mg tablet Take 200 mg by mouth once daily. - LATANOPROST OPHTHALMIC Use in eyes. - empagliflozin (JARDIANCE) 10 mg tablet Take 10 mg by mouth daily with breakfast. - pantoprazole DR (PROTONIX) 40 mg tablet Take 40 mg by mouth once daily. - simvastatin (ZOCOR) 20 mg tablet - glimepiride (AMARYL) 2 mg tablet Take 2 mg by mouth once daily. - IRON,CARB/VIT C/VIT B12/FOLIC (IRON 100 PLUS ORAL) Take by mouth. - metoprolol succinate ER (TOPROL XL) 50 mg 24 hr tablet Take 75 mg by mouth once daily. - metFORMIN (GLUCOPHAGE) 500 mg tablet - Cinnamon Bark (CINNAMON) 500 mg cap Take 1,000 mg by mouth once daily. - Multivitamin capsule Take 1 capsule by mouth once daily. - DOCOSAHEXANOIC ACID/EPA (FISH OIL ORAL) Take by mouth. - amLODIPine-benazepril (LOTREL) 10-20 mg per capsule Take 1 capsule by mouth once daily. - rivaroxaban (XARELTO) 20 mg tablet Take 20 mg by (more content not included)... Normal [facility] KHADAR DAWN ([id number]) 1940 M Date Time Provider Department 04/15/24 Yanelis BRADSHAW [facility] During your visit today, we recorded the following information about you: Romi Faust 04/15/2024 8:[address] Lane's office called requesting progress notes from the past 12 months. Please fax to [phone]. They are requesting this today as he has an appointment. Thank you Madai Goodrich Krystle Tam 04/21/2024 2:35 PM Signed Patient does not see Dr. Lane. This fax number is for Dr. Rodriguez. Patient's PCP is Dr. Delacruz. Note will be faxed to Dr. Rodriguez and Dr. Delacruz once it is complete. Allergies As of Date: 04/15/2024 (No Known Allergies) Date Reviewed: 06/05/2018 Reviewed by: Rosalie Allen), MIRNA - Fully Assessed Prescriptions as of 04/21/2024 - amLODIPine (NORVASC) 10 mg tablet Take 10 mg by mouth once daily. - cefdinir (OMNICEF) 300 mg capsule Take 300 mg by mouth two times a day. - furosemide (LASIX) 40 mg tablet Take 40 mg by mouth once daily. - lisinopril (ZESTRIL) 20 mg tablet Take 20 mg by mouth once daily. - potassium chloride (K-TAB) 10 mEq tablet Take 10 mEq by mouth two times a day. - predniSONE (DELTASONE) 10 mg tablet Take 10 mg by mouth once daily. - fluconazole (DIFLUCAN) 200 mg tablet Take 200 mg by mouth once daily. - LATANOPROST OPHTHALMIC Use in eyes. - empagliflozin (JARDIANCE) 10 mg tablet Take 10 mg by mouth daily with breakfast. - pantoprazole DR (PROTONIX) 40 mg tablet Take 40 mg by mouth once daily. - simvastatin (ZOCOR) 20 mg tablet - glimepiride (AMARYL) 2 mg tablet Take 2 mg by mouth once daily. - IRON,CARB/VIT C/VIT B12/FOLIC (IRON 100 PLUS ORAL) Take by mouth. - metoprolol succinate ER (TOPROL XL) 50 mg 24 hr tablet Take 75 mg by mouth once daily. - metFORMIN (GLUCOPHAGE) 500 mg tablet - Cinnamon Bark (CINNAMON) 500 mg cap Take 1,000 mg by mouth once daily. - Multivitamin capsule Take 1 capsule by mouth once daily. - DOCOSAHEXANOIC ACID/EPA (FISH OIL ORAL) Take by mouth. - amLODIPine-benazepril (LOTREL) 10-20 mg per capsule Take 1 capsule by mouth once daily. - rivaroxaban (XARELTO) 20 mg tablet Take 20 mg by mouth once daily. Problem List As Of Date 04/15/2024 Noted Resolved Atrial fibrillation (HCC) [I48.91] 05/28/2014 Hypertension [I10] 05/28/2014 Hyperlipidemia [E78.5] 05/28/2014 Malignant neoplasm of prostate (HCC) [C61] 07/01/2014 History of prostate cancer [Z85.46] 06/09/2015 Encounter Status:Closed by KRYSTLE FAYE on 04/21/24 Normal [facility] HISTOLOGY - TISSUE EXAMon LAB AP CASE REPORT Normal [facility] Comment on above: Result Comment: Surg ical Pathology Case: [id number] Authorizing Provider: Cara Perez MD Collected: 04/09/2024 1150 Ordering Location: [facility] Main Operating Room Received: 04/09/2024 1256 Pathologist: Brit Grimes MD Specimen: Lung, Left Upper Lobe, OUMAR MASS BX Performed By: #### L [id number] ####[facility] ([facility])[address] [place] [address] LAB AP CLINICAL INFORMATION Order Diagnoses [facility] Comment on above: Result Comment: R91. 8 - Lung mass [ICD-10-CM] J43.2 - Centrilobular emphysema (CMS/HCC) [ICD-10-CM] J96.11 - Chronic hypoxic respiratory failure (CMS/HCC) [ICD-10-CM] Performed By: #### L [id number] ####[facility] ([facility])[address] [place] [address] LAB AP DIAGNOSIS COMMENT [facility] Comment on above: Result Comment: Ther e is scant tumor in the tissue block, insufficient for further testing. Performed By: #### L [id number] ####[facility] ([facility])[address] [place] [address] LAB AP GROSS DESCRIPTION [facility] Comment on above: Result Comment: A. L rudolph, Left Upper Lobe. Part A is received in formalin labeled Khadar Vollmar and OUMAR mass biopsy . It consists of multiple platt-red, irregular pieces of soft tissue measuring 1.0 x 0.5 x 0.2 cm in aggregate. The specimen is submitted in toto in 1 cassette. Lilliam Hitchcock, Pathologists' Waste Management Specialist student Herb Reynoso, Pathologists' Waste Management Specialist Performed By: #### L [id number] ####[facility] ([facility])[address] [place] [address] LAB AP MICROSCOPIC DESCRIPTION Microscopic examination performed. [facility] Comment on above: Performed By: #### L [id number] ####[facility] ([facility])[address] [place] [address] LAB AP REPORT FINAL DIAGNOSIS NARRATIVE [facility] Comment on above: Result Comment: A. L rudolph, left upper lobe, biopsy: - Sclerotic lung and blood clot with rare strips of malignant glandular cells. - See concurrent cytology report, [id number]. Performed By: #### L [id number] ####[facility] (BEAK[facility])[address] [place] [address] NON-MIXING HOUSE OPERATOR CYTOLOGY - CELLULAR EXAMon 04-09-2024 LAB AP CASE REPORT Normal [facility] Comment on above: Result Comment: Non- gynecologic Cytology Case: [id number] Authorizing Provider: Cara Perez MD Collected: 04/09/2024 1139 Ordering Location: [facility] Main Operating Room Received: 04/09/2024 1215 Pathologist: Aaron Shea MD Specimens: A) - Lung, Left Upper Lobe, OUMAR MASS B) - Bronchial washing, left upper lobe, OUMAR BAL C) - Lymph Node Station 7, LN STATION 7 FNA Performed By: #### L [id number] #### [facility] ([facility]) [address] [place] [address] LAB AP CLINICAL INFORMATION PET-avid left apical lung mass (3.4 cm) with multiple, smaller left upper lobe lung nodules, mediastinal adenopathy, former smoker [facility] Comment on above: Performed By: #### L [id number] #### [facility] ([facility]) [address] [place] [address] LAB AP DIAGNOSIS COMMENT [facility] Comment on above: Result Comment: See also concurrent surgical case, [id number]. There is scant tumor present in the cell block of part A. Performed By: #### L [id number] #### [facility] [address] [place] [address] LAB AP GROSS DESCRIPTION [facility] Comment on above: Result Comment: A. 4 air-dried slides, 3 alcohol-fixed slides, 30 mL CytoLyt with hazy red fluid and clots B. 17 mL cloudy, red fluid with clots C. 30 mL CytoLyt with clear, pale pink fluid with red/white flecks Performed By: #### L [id number] #### [facility] (BEAKER) [address] [place] [address] LAB AP INTRAOPERATIVE CONSULTATION [facility] Comment on above: Result Comment: A. L rudolph, Left Upper Lobe. Rapid on-site evaluation was performed by Brit Grimes MD. The material examined during rapid on-site evaluation was deemed adequate for diagnosis. Pass #1: Adequate Pass #2: Defer - mostly cell block Pass #3: Defer - cell block Pass #4: Inadequate Pass #5: Defer - cell block *Only select material is examined during the on-site evaluation. Final diagnosis is pending the review of all material submitted.* Performed By: #### L [id number] #### [facility] ([facility]) [address] [place] [address] LAB AP MICROSCOPIC DESCRIPTION [facility] Comment on above: Result Comment: A. S atisfactory for evaluation. Examination of the prepared smears and cell block reveals numerous tumor cells arranged as single cells and in clusters with finely vacuolated cytoplasm, enlarged nuclei, coarse chromatin, and prominent nucleoli. B. Satisfactory for evaluation. Examination of the ThinPrep slide and cell block reveals rare tumor cells with similar morphology to those identified in part A. C. Satisfactory for evaluation. Examination of the ThinPrep slide and cell block reveals scant lymphocytes along with groups of benign bronchial cells. Performed By: #### L [id number] #### [facility] ([facility]) [address] [place] [address] LAB AP REPORT FINAL DIAGNOSIS NARRATIVE Normal [facility] Comment on above: Result Comment: A. 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 Lung, left upper lobe, bronchial washing: - Adenocarcinoma C. Lymph Node, Station 7, EBUS-guided fine needle aspiration: - Negative for metastatic malignancy. - Cellular evidence of a lymph node. - Scant lymphoid component. Performed By: #### L [id number] #### [facility] ([facility]) [address] [place] [address] NURSNOTEon 04-09-2024 NURSNOTE Report to Emi MARCIAL Normal [facility] POCT GLUCOSE METER UNSOLICIT ED RESULTSon 04-09-2024 Glucose [Mass/Vol] 88 mg/dL Normal 70-105 [facility] Comment on above: Order Comment: Waive d Testing in the ED is performed under the ED CLIA certificate #[id number]. Result Comment: ltol les Performed By: #### L [id number] #### [facility] ([facility]) [address] [place] [address] Prep for Procedureon 025 Prep for Procedure [id number] Khadar Dawn 1940 M Date Provider Department Center 04/09/2024 CARA GONZALES [facility] Family History Problem Relation Age of Onset Other Father Coronary artery disease Brother Other Brother Family Status - Relation Status Age at Father Brother [facility] Abstracton 03-31-2024 Abstract [id number] Khadar Dawn 1940 M Date Provider Department Center 03/31/2024 CARA GONZALES [facility] Family History Problem Relation Age of Onset Other Father Coronary artery disease Brother Other Brother Family Status - Relation Status Age at Father Brother [facility] 36on 03-25-2024 36 Per patient's , Dr. Perez's office is requesting cardiac clearance prior to lung biopsy. I'm assuming they'd like him to hold Xarelto but it doesn't say in Dr. Perez's office note. You saw him in clinic 2 weeks ago. Please advise. Thanks. [facility] 29on 03-20-2024 29 Addended by: CARA PEREZ on: 03/27/2024 01:27 PM Modules accepted: Orders [facility] HPon 03-20-2024 HP --- Attestation signed by Cara Perez MD at 03/21/2024 11:55 AM I have seen and examined the patient. I reviewed the resident/fellow note and I agree with the findings and plan. Cara Perez MD Interventional Pulmonary Medicine Pulmonary and Critical Care Medicine [facility] Visit Note Patient: Khadar Dawn Age: 84 y.o. : 1940 Account No.: [id number] Referring physician: Dr. Delacruz Chief complaint: Lung mass HPI 77-year-old male [...] by mouth in the morning. 09/29/22 Yes Laura Potts NP ferrous sulfate 325 (65 Fe) MG [...] rales CARDIOVASCULAR: Re (more content not included)... Normal [facility] Office Visiton 03-20-2024 Follow-up visit [id number] Khadar Dawn 1940 [facility] Provider Department Center 03/20/2024 383-CARA PEREZ [facility] ONC DCC Family History Problem Relation Age of Onset Other Father Coronary artery disease Brother Other Brother Family Status - Relation Status Age at Father Brother Level of Service:91360 MO OFFICE/OUTPATIENT NEW MODERATE MDM 45 MINUTES () Reason for Visit and Comments: New Patient [632] - Lung mass; abnormal PET SCAN, needs biopsy Normal [facility] 36on 03-10-2024 36 Regarding lab result s from 02/25/2024: MD Kristi Horvath MA Good lipids and BMP. Continue current medications. Recheck lipids and AST ALT in 6 months Patient has follow up today with Dr. Dixon. Normal [facility] Office Visiton 03-10-2024 Follow-up visit [id number] Khadar Dawn 1940 [facility] Provider Department Center 03/10/2024 [id number] DIXON [facility] Alex [facility] Family History Problem Relation Age of Onset Other Father Coronary artery disease Brother Other Brother Family Status - Relation Status Age at Father Brother Level of Service:29569 MO OFFICE/OUTPATIENT NEW MODERATE MDM 45 MINUTES Reason for Visit and Comments: Wound Check [127490] - S/p PPM implant on 03/03/[address] Rivas. Says he was not given RX for antibiotic. Normal [facility] CBCon 12-30-2024 Erythrocyte distribution width (RBC) [Ratio] 17.1 % High 11.5-15.0 [facility] Comment on above: Performed By: #### L [id number] ####[facility] [place] [address] ERYTHROCYTE MEAN CORPUSCULAR HEMOGLOBIN CONCENTRATION (G/DL) BY AUTOMATED 31.8 g/dL Low 32.0-35.0 [facility] Comment on above: Performed By: #### L [id number] ####[facility] ([facility])[address] [place] [address] Hematocrit (Bld) [Volume fraction] 47.8 % Normal 39.0-55.0 [facility] Comment on above: Performed By: #### L [id number] ####[facility] (BEAKER)[address] [place] [address] Hemoglobin (Bld) [Mass/Vol] 15.2 g/dL Normal 13.0-17.0 [facility] Comment on above: Performed By: #### L [id number] ####[facility] (BEAKER)[address] [place] [address] MCH (RBC) [Entitic mass] 29.5 pg Normal 27.0-33.0 [facility] Comment on above: Performed By: #### L [id number] ####[facility] (BEAKER)[address] [place] [address] MCV (RBC) [Entitic vol] 92.6 fL Normal 82.0-98.0 [facility] Comment on above: Performed By: #### L [id number] ####[facility] (BEAKER)[address] [place] [address] PLATELETS (10*3/UL) IN BLOOD AUTOMATED COUNT 257 10*3/uL Normal 150-400 [facility] Comment on above: Performed By: #### L [id number] ####[facility] (BEAKER)[address] [place] [address] RBC (Bld) [#/Vol] 5.16 10*6/uL Normal 4.20-5.70 [facility] Comment on above: Performed By: #### L [id number] ####[facility] ([place])[address] [place] [place] [address] WBC (Bld) [#/Vol] 13.41 10*3/uL High 4.00-10.60 [facility] Comment on above: Performed By: #### L [id number] ####[facility] ([place])[address] [place] [address] HPon 03-03-2024 [facility] Cardiology [facility] HPI Khadar Dawn is a 84 y.o. year old male patient being seen for Hospital Follow-up (He was admitted to [facility] last month for CHF. Say he's feeling [...] Currently Allergies No Known Allergies Medications Current Facility-Administered Medications: ceFAZolin (Ancef) 1,000 mg, gentamicin (Garamycin) 80 mg in sodium chloride irrigation solution 0.9 % 500 mL IRRIGATION, , irrigation, Once, Aaron Rivas MD midazolam (Versed) injection, , , PRN, Aaron Rivas MD, 0.5 mg at 03/03/24 1148 sodium chloride 0.9 % infusion, , , Continuous PRN, Aaron Rivas MD, Last Rate: 50 mL/hr at 03/03/24 [...] On Coreg, sylvie (more content not included)... [facility] NURSNOTEon 03-03-2024 NURSNOTE RN educated pt on d/ c instructions. This included: site care, limited physical [...] off of unit with all of belongings. [facility] NURSNOTE CHG wipes and betadi ne nasal swabs completed. [facility] 36on 02-25-2024 36 Patient was informed of message from Dr Rivas. Patient was not pleased with having a PPM put in and will need to think about that. Catherine BRADLEY [facility] [address] 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 Order placed. Waiting for patient to call me back so I can inform him. He had lipids drawn this morning, and I was able to add on BMP. [facility] Orders Onlyon 02-25-2024 Orders Only [id number] Khadar Dawn Berry 1940 M Date Provider Department Center 02/25/2024 KRISTI CORNELL Family History Problem Relation Age of Onset Other Father Coronary artery disease Brother Other Brother Family Status - Relation Status Age at Father Brother [facility] Documentationon 02-22-2024 Documentation [id number] KavyashirinKhadar Smart 1940 M Date Provider Department Center 02/22/2024 CHRIS ARTHUR [facility] Family History Problem Relation Age of Onset Other Father Coronary artery disease Brother Other Brother Family Status - Relation Status Age at Father Brother Normal [facility] Office Visiton 02-08-2024 Follow-up visit [id number] óLpezKhadar Smart 1940 M Date Provider Department Center 02/08/2024 CHRIS ARTHUR Family History Problem Relation Age of Onset Other Father Coronary artery disease Brother Other Brother Family Status - Relation Status Age at Father Brother Level of Service:73662 MO OFFICE/OUTPATIENT ESTABLISHED MOD MDM 30 MIN Reason for Visit and Comments: Hospital Follow-up [832] - He was admitted to [facility] last month for CHF. Say he's feeling much better s/p discharge. Coronary Artery Disease [187] - Denies chest pain. Congestive Heart Failure [127] - Denies SOB, and LE edema resolves by morning. Using O2 at nighttime. Atrial Fibrillation [80] - Denies palpitations, lightheadedness/syncope , and bleeding on Xarelto. Hypertension [110551] Hyperlipidemia [182] Normal [facility] Optical coherence tomography study reporton 11-27-2023 [facility] Study observation (narrative) [facility] Perimetry studyon 11-27-2023 [facility] Radiology Study observation (narrative) [facility] Urology Office/Clinic Noteon 10-19-2023 Urology Office/Clinic Note Urology Office/Clinic Note Chief Complaint 1 year follow up HPI Staff 1 yr w/ PSA. Dx: BPH with obstruction, hx of prostate cancer *Brachytherapy 2014*, nocturia, renal cyst, gross hematuria. *No urological meds NEG FISH/cytol 10/13/22. S/p Cysto 10/17/22. TAYLA done 10/19/22 at [facility] - results given over the phone. Previous [...] and history for this patient from Dr. Judge. I have reviewed and verified the staff [...] hematuria (R31.0: Gross hematuria) Pt presented to [facility] ER 09/23/22 with gross hematuria. Only for one day. Neg urine culture. S/p cysto 10/17/22 ~neg for b.t. or lesions. Typical telangiectatic radiation changes. FISH/cytol neg. Renal US 10/19/22 [facility] - Small bladder diverticulum. UA today shows trace-intact blood. Denies recurrence of gross hematuria. -Call if gross blood recurs 4. Renal cyst (N28.1: Cyst of kidney, acquired) CT AP w/o con 09/23/22 - several adjacent cysts inferior of the Rt kidney measuring up to 8.5 cm. Renal US 10/19/22 [facility] - bilateral renal cysts favoring benign etiology, also seen on prior MRI and CT studies. -No follow up required Follow-up With When Contact Information ALFIE WISE, Yousuf Barroso, [place] [id number]- Additional Instructions: 1 year w/ PSA Patient Education Benign Prostatic Hyperplasia Lianet Torres, personally scribed for Dr. Judge on 10/19/2023 11:19:03. . Documentation recorded by the scribe, Lianet Massey, accurately reflects the services(s) I performed and decisions made by me. Authenticated by Dr. Judge on 10/19/2023 11:20:05. Problem List/Past Medical History [...] Oral Allergie (more content not included)... Normal [facility] Comment on above: Result Comment: Elec tronically Signed By: Yousuf JUDGE MD\.br\Date and Time Signed: 10/19/23 11:20 EDT\.br\Electronically Co-Signed By: Lianet Massey.br\Date and Time Co-Signed: 10/19/23 11:19 EDT Office Visiton 09-25-2023 Follow-up visit [id number] Khadar Dawn 1940 M Date Provider Department Center 09/25/2023 JACKY ESQUIVEL [facility] Family History Problem Relation Age of Onset Other Father Coronary artery disease Brother Other Brother Family Status - Relation Status Age at Father Brother Level of Service:99934 MO OFFICE/OUTPATIENT ESTABLISHED LOW MDM 20 MIN Reason for Visit and Comments: Coronary Artery Disease [187] Atrial Fibrillation [80] Normal [facility] CBC AUTO DIFFon 04-20-2022 BASO # 0.0 103/ul Normal 0.0-0.[address] [facility] Comment on above: Performed By: #### C BC #### [facility] [address] [address] [address] Nic Marie Basophils/100 WBC (Bld) 0.5 % Normal 0.2-2.[address] [facility] Comment on above: Performed By: #### C BC #### [facility] [address] [place], [place] [address] Dr. Nic Marie EO # 0.7 103/ul Normal 0.0-0.[address] [facility] Comment on above: Performed By: #### C BC #### [facility] [address] [place] [address] Dr. Nic Marie Eosinophils/100 WBC (Bld) 8.8 % Critically high 0.9-7.[address] [facility] Comment on above: Performed By: #### C BC #### [facility] [address] [place] [address] Dr. Nic Marie Erythrocyte distribution width (RBC) [Ratio] 18.0 % Critically high 11.0-15.[address] [facility] Comment on above: Performed By: #### C BC #### [facility] [address] [place] [address] Dr. Nic Marie Hematocrit (Bld) [Volume fraction] 44.3 % Normal 42.0-54.[address] [facility] Comment on above: Performed By: #### C BC #### [facility] [facility] [address] [place] [address] Dr. Nic Marie Hemoglobin (Bld) [Mass/Vol] 13.6 g/dL Critically low 14.0-18.[address] [facility] Comment on above: Performed By: #### C BC #### [facility] [address] [place] [address] Dr. Nic Marie IG # 0.05 10e3/ul Critically high 0.00-0.03 [facility] Comment on above: Performed By: #### C BC #### [facility] [address] [place] [address] Dr. Nic Marie IG % 0.6 % Critically high 0.0-0.5 [facility] Comment on above: Performed By: #### C BC #### [facility] [address] [place] [address] Dr. Nic Marie LYMPH # 0.8 103/ul Critically low 1.2-3.8 [facility] Comment on above: Performed By: #### C BC #### [facility] [address] [place] [address] Dr. Nic Marie Lymphocytes/100 WBC (Bld) 10.7 % Critically low 20.5-60.[address] [facility] Comment on above: Performed By: #### C BC #### [facility] [address] [place] [address] Dr. Nic Marie MANUAL DIFF REQ NO Normal [facility] Comment on above: Performed By: #### C BC #### [facility] [address] [place] [address] Dr. Nci Marie MCH (RBC) [Entitic mass] 24.9 pg Critically low 25.9-34.[address] [facility] Comment on above: Performed By: #### C BC #### [facility] [address] [place] [address] Dr. Nic Marie MCHC (RBC) [Mass/Vol] 30.7 g/dL Normal 29.9-35.[address] [facility] Comment on above: Performed By: #### C BC #### [facility] [address] [place] [address] Dr. Nic Marie MCV (RBC) [Entitic vol] 81.0 fL Normal 80.0-94.[address] [facility] Comment on above: Performed By: #### C BC #### [facility] [address] [place] [address] Dr. Nic Marie MONO # 0.9 103/ul Critically high 0.3-0.8 [facility] Comment on above: Performed By: #### C BC #### [facility] [address] [place] [address] Dr. Nic Marie Monocytes/100 WBC (Bld) 11.1 % Normal 1.7-12.[address] [facility] Comment on above: Performed By: #### C BC #### [facility] [address] [place] [address] Dr. Nic Marie NEUT # 5.3 103/ul Normal 1.4-6.[address] [facility] Comment on above: Performed By: #### C BC #### [facility] [address] [place] [address] Dr. Nic Marie Neutrophils/100 WBC (Bld) 68.3 % Normal 43.0-75.0 [facility] Comment on above: Performed By: #### C BC #### [facility] [address] [address] [address] Nic Marie Platelet mean volume (Bld) [Entitic vol] 10.0 fL Normal 9.5-13.[address] [facility] Comment on above: Performed By: #### C BC #### [facility] [address] [place] [address] Dr. Nic Marie PLT 203 103/ul Normal 150-450 [facility] Comment on above: Performed By: #### C BC #### [facility] [address] [place] [address] Dr. Nic Marie RBC 5.47 106/ul Normal 4.70-6.[address] [facility] Comment on above: Performed By: #### C BC #### [facility] [address] [place] [address] Dr. Nic Marie WBC 7.8 103/ul Normal 4.0-11.[address] [facility] Comment on above: Performed By: #### C BC #### [facility] [address] [place] [address] Dr. Nic Marie LIPID PROFILEon 04-20-2022 CHOL-HDL RATIO NORM SEE BELOW Normal [facility] Comment on above: Result Comment: 3.3 - 4.4 LOW RISK 4.4 - 7.1 AVERAGE RISK 7.1 - 11.0 MODERATE RISK >11.0 HIGH RISK Performed By: #### C MP, LIPID #### [facility] [address] [place] [address] Dr. Nic Marie Cholesterol [Mass/Vol] 108 mg/dL Normal <=200 [facility] Comment on above: Performed By: #### C MP, LIPID #### [facility] [address] [place] [address] Dr. Nic Marie Cholesterol in HDL [Mass/Vol] 36 mg/dL Critically low 40-[address] [facility] Comment on above: Performed By: #### C MP, LIPID #### [facility] [address] [place] [address] Dr. Nic Marie Cholesterol in LDL [Mass/Vol] 54.2 mg/dL Normal [facility] Comment on above: Performed By: #### C MP, LIPID #### [facility] [address] [address] [address] Nic Marie Cholesterol.total/C holesterol in HDL [Mass ratio] 3.0 {ratio} Normal [facility] Comment on above: Performed By: #### C MP, LIPID #### [facility] [address] [address] [address] Nic Marie HDL NORMAL > or = 60 mg/dl - LO W CARDIOVASCULAR RISK <40 mg/dl - HIGH CARDIOVASCULAR RISK Normal [facility] Comment on above: Performed By: #### C MP, LIPID #### [facility] [address] [address] [address] Nic Marie LDL CALC NORMAL SEE BELOW Normal [facility] Comment on above: Result Comment: <100 mg/dl OPTIMAL 100 - 129 mg/dl NEAR OR ABOVE OPTIMAL 130 - 159 mg/dl BORDERLINE HIGH 160 - 189 mg/dl HIGH >190 mg/dl VERY HIGH Performed By: #### C MP, LIPID #### [facility] [address] [address] [address] Nic Marie Triglyceride [Mass/Vol] 89 mg/dL Normal <=[address] [facility] Comment on above: Performed By: #### C MP, LIPID #### [facility] [address] [address] [address] Nic Marie VLDL CALC 17.8 mg/dL Normal [facility] Comment on above: Performed By: #### C MP, LIPID #### [facility] [address] [address] [address] Nic Marie PROF 14(COMP METB)on 023 Albumin [Mass/Vol] 3.7 g/dL Normal 3.4-5.0 [facility] Comment on above: Performed By: #### C MP, LIPID #### [facility] [address] [address] [address] Nic Marie Albumin/Globulin [Mass ratio] 1.0 {ratio} Normal [facility] Comment on above: Performed By: #### C MP, LIPID #### [facility] [address] [address] [address] Nic Marie ALP [Catalytic activity/Vol] 59 U/L Normal 46-[address] [facility] Comment on above: Performed By: #### C MP, LIPID #### [facility] [address] [address] [address] Nic Marie ALT [Catalytic activity/Vol] 28 U/L Normal 16-[address] [facility] Comment on above: Performed By: #### C MP, LIPID #### [facility] [address] [address] [address] Nic Marie Anion gap [Moles/Vol] 12.1 mmol/L Normal [facility] Comment on above: Performed By: #### C MP, LIPID #### [facility] [address] [place] [address] Dr. Nic Marie AST [Catalytic activity/Vol] 18 U/L Normal 15-[address] [facility] Comment on above: Performed By: #### C MP, LIPID #### [facility] [address] [address] [address] Nic Marie Bilirubin [Mass/Vol] 0.6 mg/dL Normal 0.2-1.[address] [facility] Comment on above: Performed By: #### C MP, LIPID #### [facility] [address] [address] [address] Nic Marie Calcium [Mass/Vol] 9.6 mg/dL Normal 8.5-10.1 [facility] Comment on above: Performed By: #### C MP, LIPID #### [facility] [address] [address] [address] Nic Marie Chloride [Moles/Vol] 104 mmol/L Normal 98-[address] [facility] Comment on above: Performed By: #### C MP, LIPID #### [facility] [address] [address] [address] Nic Marie CO2 [Moles/Vol] 30.3 mmol/L Normal 21.0-32.0 [facility] Comment on above: Performed By: #### C MP, LIPID #### [facility] [address] [address] [address] Nic Marie Creatinine [Mass/Vol] 0.99 mg/dL Normal 0.70-1.[address] [facility] Comment on above: Performed By: #### C MP, LIPID #### [facility] [address] [place] [address] Dr. Nic Marie EGFR-AF PAPUA NEW GUINEAN >60 Normal >=60 [facility] Comment on above: Performed By: #### C MP, LIPID #### [facility] [address] [address] [address] Nic Marie EGFR-NON AF PAPUA NEW GUINEAN >60 Normal >=[address] [facility] Comment on above: Performed By: #### C MP, LIPID #### [facility] [address] [place] [address] Dr. Nic Marie Globulin (S) [Mass/Vol] 3.6 g/dL Normal [facility] Comment on above: Performed By: #### C MP, LIPID #### [facility] [address] [address] [address] Nic Marie Glucose [Mass/Vol] 114 mg/dL Critically high 74-106 [facility] Comment on above: Performed By: #### C MP, LIPID #### [facility] [address] [place] [address] Dr. Nic Marie Potassium [Moles/Vol] 4.4 mmol/L Normal 3.5-5.[address] [facility] Comment on above: Performed By: #### C MP, LIPID #### [facility] [address] [address] [address] Nic Marie Protein [Mass/Vol] 7.3 g/dL Normal 6.4-8.2 [facility] Comment on above: Performed By: #### C MP, LIPID #### [facility] [address] [address] [address] Nic Marie Sodium [Moles/Vol] 142 mmol/L Normal 136-145 [facility] Comment on above: Performed By: #### C MP, LIPID #### [facility] [address] [address] [address] Nic Marie Urea nitrogen [Mass/Vol] 23.0 mg/dL Critically high 7.0-18.[address] [facility] Comment on above: Performed By: #### C MP, LIPID #### [facility] [address] [address] [address] Nic Marie Urea nitrogen/Creatinine [Mass ratio] 23.2 mg/mg Normal [facility] Comment on above: Performed By: #### C MP, LIPID #### [facility] [address] [address] [address] Nic Marie PROF CHEM 8 (BAS METB)on Anion gap [Moles/Vol] 13.0 mmol/L Normal [facility] Comment on above: Performed By: #### P SAD #### [facility] [address] [place] [address] Dr. Nic Marie Calcium [Mass/Vol] 9.0 mg/dL Normal 8.5-10.1 [facility] Comment on above: Performed By: #### P SAD #### [facility] [address] [place] [address] Dr. Nic Marie Chloride [Moles/Vol] 100 mmol/L Normal 98-[address] [facility] Comment on above: Performed By: #### P SAD #### [facility] [address] [place] [address] Dr. Nic Marie CO2 [Moles/Vol] 27.2 mmol/L Normal 21.0-32.0 [facility] Comment on above: Performed By: #### P SAD #### [facility] [address] [place] [address] Dr. Nic Marie Creatinine [Mass/Vol] 1.18 mg/dL Normal 0.70-1.[address] [facility] Comment on above: Performed By: #### P SAD #### [facility] [address] [place] [address] Dr. Nic Marie EGFR-AF PAPUA NEW GUINEAN >60 Normal >=60 [facility] Comment on above: Performed By: #### P SAD #### [facility] [address] [address] [address] Nic Marie EGFR-NON AF PAPUA NEW GUINEAN =60 Normal >=[address] [facility] Comment on above: Performed By: #### P SAD #### [facility] [address] [address] [address] Nic Marie Glucose [Mass/Vol] 238 mg/dL Critically high 74-106 [facility] Comment on above: Performed By: #### P SAD #### [facility] [address] [address] [address] Nic Marie Potassium [Moles/Vol] 4.2 mmol/L Normal 3.5-5.[address] [facility] Comment on above: Performed By: #### P SAD #### [facility] [address] [place] [address] Dr. Nic Marie Sodium [Moles/Vol] 136 mmol/L Normal 136-145 [facility] Comment on above: Performed By: #### P SAD #### [facility] [address] [place] [address] Dr. Nic Marie Urea nitrogen [Mass/Vol] 30.0 mg/dL Critically high 7.0-18.[address] [facility] Comment on above: Performed By: #### P SAD #### [facility] [address] [place] [address] Dr. Nic Marie Urea nitrogen/Creatinine [Mass ratio] 25.4 mg/mg Normal [facility] Comment on above: Performed By: #### P SAD #### [facility] [address] [place] [address] Dr. Nic Marie CBC W MANUAL DIFFon 05-05-19 22 ANISOCYTOSIS SLIGHT Normal [facility] Comment on above: Performed By: #### C BCMAN #### [facility] [address] [place] [address] Dr. Nic Marie ATYPICAL LYMPH # Normal [facility] Comment on above: Performed By: #### C DAMIAN #### [facility] [address] [place] [address] Dr. Nic Marie ATYPICAL LYMPH % Normal [facility] Comment on above: Performed By: #### C BCMAN #### [facility] [address] [place] [address] Dr. Nic Marie BAND # Normal 0.0-0.[address] [facility] Comment on above: Performed By: #### C BCMAN #### [facility] [address] [place] [address] Dr. Nic Marie BAND % Normal 0-5 [facility] Comment on above: Performed By: #### C BCMAN #### [facility] [address] [place] [address] Dr. Nic Marie BASOM # 0.15 103/ul Critically high 0.00-0.10 [facility] Comment on above: Performed By: #### C BCMAN #### [facility] [address] [place] [address] Dr. Nic Marie BASOM % 1.0 % Normal 0.2-2.[address] [facility] Comment on above: Performed By: #### C BCMAN #### [facility] [address] [place] [address] Dr. Nic Marie BLAST # Normal [facility] Comment on above: Performed By: #### C BCMAN #### [facility] [address] [place] [address] Dr. Nic Marie BLAST % Normal [facility] Comment on above: Performed By: #### C BCSALINA #### [facility] [address] [place] [address] Dr. Nic Marie CORRECTED WBC Normal 4.0-11.[address] [facility] Comment on above: Performed By: #### C BCMAN #### [facility] [address] [place] [address] Dr. Nic Marie EOS # 0.73 103/ul Critically high 0.00-0.70 [facility] Comment on above: Performed By: #### C BCMAN #### [facility] [address] [place] [address] Dr. Nic Marie EOS% 5.0 % Normal 0.9-7.[address] [facility] Comment on above: Performed By: #### C DAMIAN #### [facility] [address] [address] [address] Nic Marie HCT 38.1 % Critically low 42.0-54.0 [facility] Comment on above: Performed By: #### C DAMIAN #### [facility] [address] [address] [address] Nic Marie HGB 10.4 g/dl Critically low 14.0-18.0 [facility] Comment on above: Performed By: #### C DAMIAN #### [facility] [address] [address] [address] Nci Marie HYPOCHROMASIA SLIGHT Normal [facility] Comment on above: Performed By: #### C DAMIAN #### [facility] [address] [address] [address] Nic Marie LYMPHM # 0.58 103/ul Critically low 1.20-3.80 [facility] Comment on above: Performed By: #### C DAMIAN #### [facility] [address] [address] [address] Nic Marie LYMPHM% 4.0 % Critically low 20.5-60.0 [facility] Comment on above: Performed By: #### C DAMIAN #### [facility] [address] [address] [address] Nic Marie MCH 19.3 pg Critically low 25.9-34.0 [facility] Comment on above: Performed By: #### C DAMIAN #### [facility] [address] [address] [address] Nic Marie MCHC 27.3 g/dl Critically low 29.9-35.2 [facility] Comment on above: Performed By: #### C DAMIAN #### [facility] [address] [place] [address] Dr. Nic Marie MCV 70.6 fL Critically low 80.0-94.0 [facility] Comment on above: Performed By: #### C DAMIAN #### [facility] [address] [address] [address] Nic Marie METAMYELOCYTE # Normal [facility] Comment on above: Performed By: #### C DAMIAN #### [facility] [address] [place] [address] Dr. Nic Marie METAMYELOCYTE % Normal [facility] Comment on above: Performed By: #### C BCSALINA #### [facility] [address] [place] [address] Dr. Nic Marie MONOM# 0.58 103/ul Normal 0.30-0.[address] [facility] Comment on above: Performed By: #### C DAMIAN #### [facility] [address] [place] [address] Dr. Nic Marie MONOM% 4.0 % Normal 1.7-12.[address] [facility] Comment on above: Performed By: #### C DAMIAN #### [facility] [address] [place] [address] Dr. Nic Marie MPV 9.7 fL Normal 9.5-13.[address] [facility] Comment on above: Performed By: #### C DAMIAN #### [facility] [address] [place] [address] Dr. Nic Marie MYELOCYTE # Normal [facility] Comment on above: Performed By: #### C DAMIAN #### [facility] [address] [place] [address] Dr. Nic Marie MYELOCYTE % Normal [facility] Comment on above: Performed By: #### C DAMIAN #### [facility] [address] [place] [address] Dr. Nic Marie NRBC Normal [facility] Comment on above: Performed By: #### C BCSALINA #### [facility] [address] [place] [address] Dr. Nic Marie PLT 347 103/ul Normal 150-[address] [facility] Comment on above: Performed By: #### C DAMIAN #### [facility] [address] [place] [address] Dr. Nic Marie RBC 5.40 106/ul Normal 4.70-6.[address] [facility] Comment on above: Performed By: #### C SHUMAN #### [facility] [address] [address] [address] Nic Marie RDW 22.2 % Critically high 11.0-15.0 [facility] Comment on above: Performed By: #### C DAMIAN #### [facility] [address] [address] [address] Nic Marie SEG # 12.56 103/ul Critically high 1.40-6.50 [facility] Comment on above: Performed By: #### C DAMIAN #### [facility] [address] [address] [address] Nic Marie SEG % 86.0 % Critically high 43.0-75.0 [facility] Comment on above: Performed By: #### C DAMIAN #### [facility] [address] [address] [address] Nic Marie WBC 14.6 103/ul Critically high 4.0-11.0 [facility] Comment on above: Performed By: #### C DAMIAN #### [facility] [address] [address] [address] Nic Marie GLYCOHEMOGLOBIN A1Con 2021 ADA RECOMMENDATION ADA THERAPEUTIC TARG ET 6.0 - 7.0 ACTION SUGGESTED > 7.[address] [facility] Comment on above: Performed By: #### A 1C #### [facility] [address] [address] [address] Nic Marie Glucose [Mass/Vol] 171 mg/dL Normal [facility] Comment on above: Performed By: #### A 1C #### [facility] [address] [address] [address] Nic Marie HbA1c (Bld) [Mass fraction] 7.6 % Critically high <=6.[address] [facility] Comment on above: Performed By: #### A 1C #### [facility] [address] [address] [address] Nic Marie LIPID PROFILEon 05-04-2021 CHOL-HDL RATIO NORM SEE BELOW Normal [facility] Comment on above: Result Comment: 3.3 - 4.4 LOW RISK 4.4 - 7.1 AVERAGE RISK 7.1 - 11.0 MODERATE RISK >11.0 HIGH RISK Performed By: #### L IPID, TSH, MG, CMP #### [facility] [address] [address] [address] Nic Marie Cholesterol [Mass/Vol] 97 mg/dL Normal <=[address] [facility] Comment on above: Performed By: #### L IPID, TSH, MG, CMP #### [facility] [address] [address] [address] Nic Marie Cholesterol in HDL [Mass/Vol] 34 mg/dL Normal [facility] Comment on above: Performed By: #### L IPID, TSH, MG, CMP #### [facility] [address] [address] [address] Nic Marie Cholesterol in LDL [Mass/Vol] 49.2 mg/dL Normal [facility] Comment on above: Performed By: #### L IPID, TSH, MG, CMP #### [facility] [address] [address] [address] Nic Marie Cholesterol.total/C holesterol in HDL [Mass ratio] 2.9 {ratio} Normal [facility] Comment on above: Performed By: #### L IPID, TSH, MG, CMP #### [facility] [address] [address] [address] Nic Marie HDL NORMAL > or = 60 mg/dl - LO W CARDIOVASCULAR RISK <40 mg/dl - HIGH CARDIOVASCULAR RISK Normal [facility] Comment on above: Performed By: #### L IPID, TSH, MG, CMP #### [facility] [address] [address] [address] Nic Marie LDL CALC NORMAL SEE BELOW Normal [facility] Comment on above: Result Comment: <100 mg/dl OPTIMAL 100 - 129 mg/dl NEAR OR ABOVE OPTIMAL 130 - 159 mg/dl BORDERLINE HIGH 160 - 189 mg/dl HIGH >190 mg/dl VERY HIGH Performed By: #### L IPID, TSH, MG, CMP #### [facility] [address] [place] [address] Dr. Nic Marie Triglyceride [Mass/Vol] 69 mg/dL Normal <=[address] [facility] Comment on above: Performed By: #### L IPID, TSH, MG, CMP #### [facility] [address] [place] [address] Dr. Nic Marie VLDL CALC 13.8 mg/dL Normal [facility] Comment on above: Performed By: #### L IPID, TSH, MG, CMP #### [facility] [address] [place] [address] Dr. Nic Marie MAGNESIUMon 05-04-2021 Magnesium [Mass/Vol] 1.6 mg/dL Normal 1.6-2.[address] [facility] Comment on above: Performed By: #### L IPID, TSH, MG, CMP #### [facility] [address] [place] [address] Dr. Nic Marie PROF 14(COMP METB)on 022 Albumin [Mass/Vol] 3.8 g/dL Normal 3.5-5.0 [facility] Comment on above: Performed By: #### L IPID, TSH, MG, CMP #### [facility] [address] [place] [address] Dr. Nic Marie Albumin/Globulin [Mass ratio] 1.0 {ratio} Normal [facility] Comment on above: Performed By: #### L IPID, TSH, MG, CMP #### [facility] [address] [place] [address] Dr. Nic Marie ALP [Catalytic activity/Vol] 69 U/L Normal 38-126 [facility] Comment on above: Performed By: #### L IPID, TSH, MG, CMP #### [facility] [address] [place] [address] Dr. Nic Marie ALT [Catalytic activity/Vol] 26 U/L Normal 21-[address] [facility] Comment on above: Performed By: #### L IPID, TSH, MG, CMP #### [facility] [address] [place] [address] Dr. Nic Marie Anion gap [Moles/Vol] 8.5 mmol/L Normal [facility] Comment on above: Performed By: #### L IPID, TSH, MG, CMP #### [facility] [address] [place] [address] Dr. Nic Marie AST [Catalytic activity/Vol] 16 U/L Critically low 17-[address] [facility] Comment on above: Performed By: #### L IPID, TSH, MG, CMP #### [facility] [address] [address] [address] Nic Marie Bilirubin [Mass/Vol] 0.7 mg/dL Normal 0.2-1.3 [facility] Comment on above: Performed By: #### L IPID, TSH, MG, CMP #### [facility] [address] [place] [address] Dr. Nic Marie Calcium [Mass/Vol] 9.4 mg/dL Normal 8.4-10.2 [facility] Comment on above: Performed By: #### L IPID, TSH, MG, CMP #### [facility] [address] [place] [address] Dr. Nic Marie Chloride [Moles/Vol] 104 mmol/L Normal 98-107 [facility] Comment on above: Performed By: #### L IPID, TSH, MG, CMP #### [facility] [address] [place] [address] Dr. Nic Marie CO2 [Moles/Vol] 30.9 mmol/L Critically high 22.0-30.[address] [facility] Comment on above: Performed By: #### L IPID, TSH, MG, CMP #### [facility] [address] [place] [address] Dr. Nic Marie Creatinine [Mass/Vol] 1.03 mg/dL Normal 0.66-1.[address] [facility] Comment on above: Performed By: #### L IPID, TSH, MG, CMP #### [facility] [address] [place] [address] Dr. Nic Marie EGFR-AF PAPUA NEW GUINEAN >60 Normal >=60 [facility] Comment on above: Performed By: #### L IPID, TSH, MG, CMP #### [facility] [address] [place] [address] Dr. Nic Marie EGFR-NON AF PAPUA NEW GUINEAN >60 Normal >=[address] [facility] Comment on above: Performed By: #### L IPID, TSH, MG, CMP #### [facility] [address] [place] [address] Dr. Nic Marie Globulin (S) [Mass/Vol] 3.7 g/dL Normal [facility] Comment on above: Performed By: #### L IPID, TSH, MG, CMP #### [facility] [address] [place] [address] Dr. Nic Marie Glucose [Mass/Vol] 121 mg/dL Critically high 74-106 [facility] Comment on above: Performed By: #### L IPID, TSH, MG, CMP #### [facility] [address] [place] [address] Dr. Nic Marie Potassium [Moles/Vol] 4.4 mmol/L Normal 3.4-5.[address] [facility] Comment on above: Performed By: #### L IPID, TSH, MG, CMP #### [facility] [address] [place] [address] Dr. Nic Marie Protein [Mass/Vol] 7.5 g/dL Normal 6.1-8.2 [facility] Comment on above: Performed By: #### L IPID, TSH, MG, CMP #### [facility] [address] [address] [address] Nic Marie Sodium [Moles/Vol] 139 mmol/L Normal 137-145 [facility] Comment on above: Performed By: #### L IPID, TSH, MG, CMP #### [facility] [address] [place] [address] Dr. Nic Marie Urea nitrogen [Mass/Vol] 21.0 mg/dL Critically high 9.0-20.[address] [facility] Comment on above: Performed By: #### L IPID, TSH, MG, CMP #### [facility] [address] [place] [address] Dr. Nic Marie Urea nitrogen/Creatinine [Mass ratio] 20.4 mg/mg Normal [facility] Comment on above: Performed By: #### L IPID, TSH, MG, CMP #### [facility] [address] [address] [address] Nic Marie TSHon 05-04-2021 TSH 1.553 uIU/mL Normal 0.470-4.680 [facility] Comment on above: Performed By: #### L IPID, TSH, MG, CMP #### [facility] [address] [address] [address] Nic Marie TSH RANGE SEE BELOW Normal [facility] Comment on above: Result Comment: <0.3 4 UIU/ml HYPERTHYROID 0.34-5.60 UIU/ml EUTHYROID >5.60 UIU/ml HYPOTHYROID Performed By: #### L IPID, TSH, MG, CMP #### [facility] [address] [address] [address] Nic Marie Cardiovascular Lab Reporton 08-03-2020 Cardiovascular Lab Report [facility] Patient Name: [facility] Khadar Smart MR #: [id number] Department of Physician: Alexa Campbell M.D. Division of Service Date: 08/03/2020 Cardiology Birthdate: 1940 Adult Cardiovascular Room #: [address] [place] [address] Cardiovascular Laboratory Report FINAL IMPRESSIONS: 1. Severe [...] atorvastatin 80 mg a day, a beta pushpa, and an angiotensin receptor pushpa. 6. A basic metabolic panel will be [...] 2 months. 10. Follow up with Dr. Delacruz as scheduled. PROCEDURES: Ultrasound-guided access of right [...] right internal jugular vein was obtained. A 6-Cook Islander x 11 cm sheath was inserted without [...] to access the left radial artery. A 6-[place] Islander glide sheath was inserted without difficulty. Bilateral selective coronary angiography was performed using JR4 and JL4 catheters. After reviewing the images, it was elected to proceed with an interventional procedure. A 6-[place] Islander JR4 guide catheter was advanced over J-wire [...] stenosis. (more content not included)... Normal [facility] Vital Signs Date Time Vital Sign Value Performing Clinician Facility 04-16-2024 12:56-0500 Body mass index (BMI) [Ratio] 26.77 kg/m2 OMERO Bradshaw MD Work Phone: [facility] 04-16-2024 12:56-0500 Body temperature 96.69 [degF] OMERO Bradshaw MD Work Phone: [facility] 04-16-2024 12:56-0500 Body weight 75.2 kg OMERO Bradshaw MD Work Phone: [facility] 04-16-2024 12:56-0500 Diastolic blood pressure 72 mm[Hg] OMERO Bradshaw MD Work Phone: [facility] 04-16-2024 12:56-0500 Respiratory rate 18 /min OMERO Bradshaw MD Work Phone: [facility] 04-16-2024 12:56-0500 SaO2% (BldA) [Mass fraction] 88 % NA Augustine WISE Work Phone: [facility] 04-16-2024 12:56-0500 Systolic blood pressure 121 mm[Hg] NA Augustine WISE Work Phone: [facility] 10-19-2023 10:55-0400 Blood Pressure Location Yousuf JUDGE [facility] 10-19-2023 10:55-0400 Diastolic blood pressure 70 mm[Hg] Yousuf JUDGE [facility] 10-19-2023 10:55-0400 Heart rate 16 /min Yousuf JUDGE [facility] 10-19-2023 10:55-0400 Respiratory rate 16 /min Yousuf JUDGE [facility] 10-19-2023 10:55-0400 Systolic blood pressure 130 mm[Hg] Yousuf JUDGE [facility] 10-13-2022 09:35-0400 Blood Pressure Location Yousuf JUDGE [facility] 10-13-2022 09:35-0400 Diastolic blood pressure 78 mm[Hg] Yousuf JUDGE [facility] 10-13-2022 09:35-0400 Heart rate 69 /min Yousuf JUDGE [facility] 10-13-2022 09:35-0400 Respiratory rate 16 /min Yousuf JUDGE [facility] 10-13-2022 09:35-0400 Systolic blood pressure 132 mm[Hg] Yousuf JUDGE [facility] [place] Encounters Encounter Date Encounter Type Care Provider Facility Start: 10-20-2024 ambulatory Yousuf JUDGE Gopi ty:ALYSA GutierrezAlex Start: 05-05-2024 End: 05-05-2024 ambulatory [facility] Start: 05-02-2024 End: 05-02-2024 Refill Dg Cook COT [facility] Comment on above: 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, mild stage (CMS/HCC) Start: 04-30-2024 End: 04-30-2024 ambulatory Yanelis BRADSHAW Facility:[facility] Start: 04-30-2024 End: 04-30-2024 Subsequent hospital visit by physician Arrival Time Radiology Work Phone: Radiology Pet CT Comment on above: Malignant neoplasm o f unspecified part of unspecified bronchus or lung (HCC) [C34.90] Start: 04-25-2024 End: 04-25-2024 Telephone encounter Yanelis Bradshaw MD Work Phone: Radiation Oncology Start: 04-23-2024 End: 04-25-2024 Radiation Oncology Note Yanelis Bradshaw MD Work Phone: Radiation Oncology Comment on above: Simulation Note Start: 04-23-2024 End: 04-24-2024 Telephone encounter Yanelis Bradshaw MD Work Phone: Radiation Oncology Comment on above: Medical Engineer - O ther Future Appointment; Medical Engineer - Other (Pacemaker Checks During XRT) Start: 04-23-2024 End: 04-23-2024 ambulatory Yanelis BRADSHAW Facility:[facility] Start: 04-23-2024 End: 04-25-2024 Patient encounter procedure Yanelis Bradshaw MD Work Phone: Radiation Oncology Comment on above: Malignant neoplasm o f lung, unspecified laterality, unspecified part of lung (HCC) (Primary Dx) Start: 04-22-2024 End: 04-23-2024 Telephone encounter Yanelis Bradshaw MD Work Phone: Hematology/Oncology Comment on above: Thoracentesis Start: 04-22-2024 End: 04-22-2024 Admission to same day surgery center Josy Delacruz MD Work Phone: [facility] [place] Work Phone: Start: 04-22-2024 End: 04-22-2024 ambulatory Josy Delacruz MD Work Phone: [facility] Work Phone: Start: 04-21-2024 End: 04-21-2024 Telephone encounter [facility] Start: 04-16-2024 End: 04-28-2024 Telephone encounter Yanelis Bradshaw MD Work Phone: Radiation Oncology Comment on above: Appointment; Orders Start: 04-16-2024 End: 04-17-2024 ambulatory Rojelio Guajardo RN Radiation Oncology Comment on above: Patient Education Start: 04-16-2024 End: 04-16-2024 Office outpatient new 45 minutes Yanelis Bradshaw MD Work Phone: Radiation Oncology Comment on above: Atrial fibrillation, unspecified type (HCC) (Primary Dx); Malignant neoplasm of lung, unspecified laterality, unspecified part of lung (HCC) Start: 04-15-2024 End: 04-21-2024 Telephone encounter Yanelis Bradshaw MD Work Phone: [facility] Start: 04-09-2024 End: 04-09-2024 ambulatory [facility] Start: 04-09-2024 End: 04-09-2024 ambulatory [facility] Start: 04-09-2024 End: 04-09-2024 ambulatory [facility] Start: 03-20-2024 ambulatory [facility] Start: 03-10-2024 End: 03-10-2024 ambulatory [facility] Start: 03-07-2024 End: 03-07-[facility] Start: 03-03-2024 End: 03-03-2024 [facility] Start: 02-08-2024 End: 02-08-2024 ambulatory [facility] Start: 11-27-2023 End: 11-27-2023 Bamboo flowsheet Kely D Zahler DO Work Phone: [facility] Start: 11-27-2023 End: 11-27-2023 Bamboo flowsheet Kely D Zahler DO Work Phone: [facility] Start: 11-27-2023 End: 11-27-2023 ambulatory KELY D ZAHLER Not Available Start: 10-19-2023 End: 10-19-2023 ambulatory Yousuf JUDGE Facility: [place] Start: 10-19-2023 End: 10-19-2023 Patient encounter procedure Yousuf JUDGE [facility] Start: 09-25-2023 End: 09-25-2023 ambulatory JACKY [facility] Start: 08-24-2023 End: 08-24-2023 ambulatory KELY D ZAHLER Not Available Start: 06-29-2023 End: 06-29-2023 ambulatory KELY D ZAHLER Not Available Start: 05-11-2023 End: 05-11-2023 ambulatory KELY D ZAHLER Not Available Start: 02-23-2023 End: 02-23-2023 ambulatory KELY D ZAHLER Not Available Start: 10-17-2022 End: 10-17-2022 Patient encounter procedure Yousuf JUDGE [place] Start: 10-13-2022 End: 10-13-2022 Patient encounter procedure Yousuf JUDGE [facility] Start: 04-20-2022 End: 04-21-2022 ambulatory LAURA SEVERIANO Facility:[facility] Start: 10-25-2021 End: 10-26-[address] RAMYA FLANAGAN Facility:[facility] Start: 05-04-2021 End: 05-05-2021 ambulatory LAURA SEVERIANO Facility:[facility] Start: 08-03-2020 End: 08-04-2020 ambulatory RAMYA FLANAGAN Facility:[facility] Procedures Date Procedure Procedure Detail Performing Clinician Start: 04-30-2024 Gluc bld gluc mntr d ev cleared fda spec home use [facility] Provider Start: 11-27-2023 End: 11-27-2023 Visual field xm uni/bi w/interp extended exam Kely Borden DO Work Phone: Start: 11-27-2023 End: 11-27-2023 Oph medical xm&eval comprhnsv estab pt 1/> Primary open angle glaucoma (POAG) of both eyes, mild stage (CMS/HCC) Kely Borden DO Work Phone: Comment on above: 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, mild stage (CMS/HCC) (Primary Dx); Exudative age-related macular degeneration of right eye with active choroidal neovascularization (HCC) (CMS/HCC); Age-related nuclear cataract of both eyes; 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 Nic Marie Start: 08-03-2020 Placement of stent i n cardiac conduit Yousuf JUDGE carotid endarderectomy Frandy JUDGE History of hernia repair Tonia JUDGE Operative procedure on coronary artery Yousuf JUDGE Plan of Treatment Date Care Activity Detail Author Start: 06-17-2024 End: 06-17-2024 Patient encounter procedure 06/17/2024 2:15 PM EDT Office Visit [facility] [address] [place] [address] Kely Borden, [address] [place] [address] [facility] Start: 04-30-2024 End: 04-30-2024 Patient encounter procedure Radiation Oncology Comment on above: NEW START, LUNG pt p refers after 9:00am PET Start: 04-26-2024 End: 05-25-2025 PET+CT Guidance for 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-- W 18F-FDG IV NM PET/CT SKULL-THIGH SUBSEQUENT Radiology Routine Malignant neoplasm of unspecified part of unspecified bronchus or lung (HCC) Expected: 04/26/2024, Expires: 05/25/2025 [facility] Work Phone: Comment on above: Expected: 04/26/2024 , Expires: 05/25/2025 Start: 04-23-2024 End: 04-23-2024 Patient encounter procedure Radiation Oncology Comment on above: PRE SIM CONSENT SIM - LUNG - NEEDS C ONSENT Start: 04-22-2024 End: 07-22-2024 Bacteria identified in Body fluid by Culture BACTERIAL CULTURE AND GRAM STAIN, STERILE BODY FLUID Microbiology Routine Malignant neoplasm of lung, unspecified laterality, unspecified part of lung (HCC) Expected: 04/22/2024, Expires: 07/22/2024 [facility] Comment on above: Expected: 04/22/2024 , Expires: 07/22/2024 Start: 04-22-2024 End: 07-22-2024 BODY FLUID CELL COUNT BODY FLUID CELL COUNT Lab Routine Malignant neoplasm of lung, unspecified laterality, unspecified part of lung (HCC) Expected: 04/22/2024, Expires: 07/22/2024 [facility] Work Phone: Comment on above: Expected: 04/22/2024 , Expires: 07/22/2024 Start: 04-22-2024 End: 07-22-2024 CYTOLOGY NON-MIXING HOUSE OPERATOR CYTOLOGY NON-MIXING HOUSE OPERATOR Lab Routine Malignant neoplasm of lung, unspecified laterality, unspecified part of lung (HCC) Expected: 04/22/2024, Expires: 07/22/2024 [facility] Comment on above: Expected: 04/22/2024 , Expires: 07/22/2024 Start: 04-22-2024 End: 07-22-2024 Glucose [Mass/volume] in Body fluid GLUCOSE, BODY FLUID Lab Routine Malignant neoplasm of lung, unspecified laterality, unspecified part of lung (HCC) Expected: 04/22/2024, Expires: 07/22/2024 [facility] Comment on above: Expected: 04/22/2024 , Expires: 07/22/2024 Start: 04-22-2024 End: 07-22-2024 Lactate dehydrogenase [Enzymatic activity/volume] in Body fluid LACTATE DEHYDROGENASE, BODY FLUID Lab Routine Malignant neoplasm of lung, unspecified laterality, unspecified part of lung (HCC) Expected: 04/22/2024, Expires: 07/22/2024 [facility] Comment on above: Expected: 04/22/2024 , Expires: 07/22/2024 Start: 04-22-2024 End: 07-22-2024 Microorganism identified in Unspecified specimen by Culture AFB CULTURE AND STAIN Microbiology Routine Malignant neoplasm of lung, unspecified laterality, unspecified part of lung (HCC) Expected: 04/22/2024, Expires: 07/22/2024 [facility] Comment on above: Expected: 04/22/2024 , Expires: 07/22/2024 Start: 04-22-2024 End: 07-22-2024 pH of Body fluid PH BODY FLUID Lab Routine Malignant neoplasm of lung, unspecified laterality, unspecified part of lung (HCC) Expected: 04/22/2024, Expires: 07/22/2024 [facility] Comment on above: Expected: 04/22/2024 , Expires: 07/22/2024 Start: 03-05-2024 Advance Directive Discussion Advance Directive Discussion [facility] Start: 11-27-2023 End: 11-27-2023 Patient encounter procedure 11/27/2023 10:30 AM EDT Office Visit [facility] [address] [place] [address] Kely Borden DO [address] [place] [address] Arrived [facility] Comment on above: Arrived Start: 11-04-2023 Covid-19 Vaccine ( season) Covid-19 Vaccine ( season) [facility] Start: 11-04-2023 Influenza vaccination Influenza Vacc ine (#1) [facility] Start: 12-20-2017 Pneumococcal Vaccine : 50+ (2 of 2 - PPSV23) Pneumococcal Vaccine: 50+ (2 of 2 - PPSV23) [facility] Start: 12-20-2017 Pneumococcal Vaccine : 65+ Years (2 of 2 - PPSV23 or PCV20) Pneumococcal Vaccine: 65+ Years (2 of 2 - PPSV23 or PCV20) [facility] Start: 2017 RSV Vaccine (1 - 1-d ose 75+ series) RSV Vaccine (1 - 1-dose 75+ series) [facility] Start: 02-16-1992 Shingrix Vaccine (1 of 2) Shingrix Vaccine (1 of 2) [facility] Start: 1987 Diabetes Screening Diabetes Screenin g [facility] Start: 1961 Urine microalbumin profile DTaP,Tdap,Td Vaccine (1 - Tdap) [facility] Start: 02-16-1960 Anxiety Screening Anxiety Screening [facility] Start: 02-16-1960 Depression Screening Depression Scre ening [facility] ANALYZE CARDIO/DEFIBRILLATOR ANALYZE CARDIO/DEFIBRILLATOR Cardiology Routine Atrial fibrillation, unspecified type (HCC) Malignant neoplasm of lung, unspecified laterality, unspecified part of lung (HCC) Ordered: 04/17/2024 [facility] Work Phone: Comment on above: Ordered: 04/17/2024 CT Guidance for radiation treatment of Unspecified body region CT SIM PLANNING RADIATION ONCOLOGY Radiology Routine Malignant neoplasm of lung, unspecified laterality, unspecified part of lung (HCC) Ordered: 04/23/2024 [facility] Work Phone: Comment on above: Ordered: 04/23/2024 Guidance for thoracentesis of Chest IMAGING GUIDED THORACENTESIS Radiology Routine Malignant neoplasm of lung, unspecified laterality, unspecified part of lung (HCC) Ordered: 04/17/2024 [facility] Comment on above: Ordered: 04/17/2024 PET+CT Guidance for 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-- W 18F-FDG IV NM PET/CT SKULL-THIGH SUBSEQUENT Radiology Routine Malignant neoplasm of unspecified part of unspecified bronchus or lung (HCC) 04/30/2024 9:22 AM EST [facility] Work Phone: Immunizations Immunization Date Immunization Notes Care Provider Natacha wang 11-23-2021 SARS-CoV-2 (COVID-19 ) [id number] Yousuf JUDGE [facility] 12-30-2020 SARS-CoV-2 (COVID-19 ) mRNA BNT-162b2 vax Yousuf JUDGE [facility] Comment on above: Result Comment: 2023: [id number] 05-13-2020 SARS-CoV-2 (COVID-19 ) mRNA-1273 vaccine Yousuf JUDGE [facility] Comment on above: Result Comment: 2023: [id number] 04-15-2020 SARS-CoV-2 (COVID-19 ) mRNA-1273 vaccine Yousuf JUDGE [facility] 03-05-2020 SARS-CoV-2 (COVID-19 ) mRNA-1273 vaccine Yousuf JUDGE [facility] Comment on above: Result Comment: pt h as had 3 shots to date but does not know the dates 12-20-2016 pneumococcal conjuga te vaccine, 13 valent Yousuf JUDGE [facility] NEGATED: Highlighted row has not occurred!04-23-2020 influenza virus vaccine, unspecified formulation Yousuf ALFIE [facility] Payers Date Payer Category Payer Self-pay 2021 Medicare AETNA MEDICARE A DVANTAGE AETNA MEDICARE REPLACEMENT [id number] 2021-Present [address] [place] [address] [id number] 2019 Medicare (Managed Care) AETNA [place] DICARE [id number] 1959 Medicare [id number] 1940 Unknown [id number] [id number]. 647 1940 Unknown [id number] 2.16.840.1.028543.3.579.2. 593 1940 Unknown [id number] 2.16.840.1.161328.3.579.2. 593 1940 Unknown [id number] 2.16.840.1.164503.3.579.2. 593 1940 Unknown [id number] 2.16.840.1.041794.3.579.2. 593 1940 Unknown [id number] 2.16.840.1.474107.3.579.2. 727 1940 Unknown [id number] 2.16.840.1.444978.3.579.2. 727 1940 Unknown [id number] 2.16.840.1.546726.3.579.2. 1259 1940 Unknown [id number] 2.16.840.1.618969.3.579.2. 1259 1940 Unknown [id number] 2.16.840.1.619132.3.579.2. 1259 1940 Unknown [id number] 2.16.840.1.218409.3.579.2. 1259 1940 Unknown [id number] 2.16.840.1.599918.3.579.2. 1259 Private Health Insurance [id number] Private Health Insurance [facility] [id number] Unknown [id number]. 531 Social History Date Type Detail Facility Start: 05-28-2014 End: 04-25-2019 Tobacco smoking status Ex-smoker (finding) [place] Start: 09-27-2022 End: 08-24-2023 Sex Assigned At Male [facility] Tobacco smoking status Never [facility] Start: 09-27-2022 Tobacco smoking stat us NHIS Never smoked tobacco [facility] Start: 09-27-2022 End: 08-24-2023 History of Social function [facility] Start: 1940 Sex assigned at Not on file [facility] Start: 03-05-1969 End: 03-05-1999 History of tobacco use Current smoker [facility] Start: 03-05-1969 End: 03-05-1999 History of tobacco use Cigarette Smoker [facility] Start: 05-28-2014 Tobacco use and exposure Smokeless tobacco non-user [facility] Start: 06-05-2018 Alcoholic beverage intake Current non-drinker of alcohol (finding) [facility] Start: 04-25-2024 Sex Male (finding) [facility] Start: 1940 Sex Assigned At Male F [facility] Functional Status Date Assessment Result Facility 10-19-2023 Functional Status N/A [facility] 10-13-2022 Functional Status N/A [facility] 09-28-2014 Are you deaf, or do you have serious difficulty hearing No 09/28/2014 11:08 AM FANYT Rojelio Guajardo RN No [facility] 09-28-2014 Are you blind, or do you have serious difficulty seeing, even when wearing glasses No 09/28/2014 11:08 AM Rojelio Garcia RN No [facility] [facility] 09-[facility]2014 Do you have serious difficulty walking or climbing stairs No 09/28/2014 11:08 AM Rojelio Garcia RN No [facility] 09-28-2014 Do you have difficul ty dressing or bathing No 09/28/2014 11:08 AM Rojelio Garcia RN No [facility] 09-28-2014 Because of a physica l, mental, or emotional condition, do you have difficulty doing errands alone such as visiting a physician's office or shopping No 09/28/2014 11:08 AM Rojelio Garcia RN No [facility] Mental Status Date Assessment Result Facility 09-28-2014 Because of a physica l, mental, or emotional condition, do you have serious difficulty concentrating, remembering, or making decisions No 09/28/2014 11:08 AM Rojelio Garcia RN No [facility] Clinical Notes 10-13-2022 to 05-05-2024 Cherelle Cordero RN - 04/30/2024 8:00 AM Dg Shannon RT(R) - 04/30/2024 8:00 AM ESTTelephone Encounter - Shazia Rooney - 04/25/2024 12:57 PM Yanelis Miguel MD - 04/23/2024 9:36 AM EST Note Date & Type Note Facility 05-05-2024 Note [place] [facility] Subjective Khadar Dawn is a 84 y.o. year old male [...] (CMS/HCC) Nonrheumatic aortic valve stenosis Sinus pause HPI 05/05/2024 Patient was admitted to the hospital on 04/03/2024 with worsening shortness of breath and he had pneumonia and C HF exacerbation. He was treated with IV antibiotics and IV diuretics Bumex IV infusion. It seems like he had significant change in his medications with Coreg switched to Toprol XL and his Lasix dose was increased. He is here today for follow-up visit. He states that he feels that he is stable. He has exertional dyspnea but well-controlled on current medical treatment and he is on oxygen at 2 L/min since January 2024. He denies any chest pain. Denies any palpitations. Denies orthopnea or paroxysmal nocturnal dyspnea. He has chronic legs edema which she thinks it is a little milder and he tries to elevate his legs. 03/10/2024 Patient is here today for follow-up [...] was seen at that time by Dr. Rivas. The patient is here today for follow-up [...] Past Medical History: Diagnosis Date Atrial fibrillation ([facility]) CHF (congestive heart failure) ([facility]) COPD (chronic obstructive pulmonary disease) ([facility]) home oxygen 4 L Coronary artery disease Diabetes mellitus ([facility]) Hyperkalemia Hyperlipidemia Hypertension Past Surgical History: Procedure Laterality Date CARDIAC CATHETERIZATION CAROTID ENDARTERECTOMY HERNIA REPAIR INSERT / REPLACE / REMOVE PACEMAKER insert Family History Problem Relation Name Age of Onset Other (cardiac arrest) Father Coronary artery disease Brother Other (CABG) Brother Social History Tobacco Use Smoking status: Former Types: Cigarettes Smokeless tobacco: Never Vaping Use Vaping status: Never Used Substance Use Topics Alcohol use: Not Currently Drug use: Never Allergies No Known Allergies Medications Current Outpatient Medications: amLODIPine (Norvasc) 10 mg tablet, Take by mouth in the morning., Disp: , Rfl: atorvastatin (Lipitor) 80 mg tablet, Take 80 mg by mouth at bedtime., Disp: , Rfl: empagliflozin (Jardiance) 10 mg, Take 1 tablet (10 mg) by mouth in the morning., Disp: 30 tablet, Rfl: 2 ferrous sulfate 325 (65 Fe) MG tablet, Take 1 tablet by mouth in the morning., Disp: , Rfl: furosemide (Lasix) 20 mg tablet, Take 40 mg by mouth in the morning., Disp: , Rfl: glimepiride (Amaryl) 4 mg tablet, Take 2 mg by mouth before breakfast., Disp: , Rfl: lisinopril 20 mg tablet, Take 20 mg by mouth in the morning., Disp: , Rfl: metFORMIN (Glucophage) 500 mg tablet, Take 500 mg by mout (more content not included)... [facility] 04-30-2024 History of Present illness Narrative Radiology Service Progress Note DATE OF SERVICE: April 30, 2024 TIME: 7:59 AM PATIENT IDENTITY VERIFICATION COMPLETED USING TWO (2) STANDARD IDENTIFIERS: Name and Date of confirmed by patient verbally. FALL SCREENING: Has the patient had 2 falls in the last year or 1 fall with injury or currently using an Ambulatory Assistive Device (Walker, Cane, Wheelchair, Crutches, etc.)? No PATIENT GENDER DATA: Assigned male at EXAM: CT -CONTRAST INDUCED NEPHROPATHY RISK FACTORS: Not applicable CREATININE: No results found for: CREAT , EGFROTH , EGFRAA P.O.C.T. RESULTS: N/A April 30, 2024 TREATMENT: N/A IV SITE: Ambulatory: A peripheral IV was started in the Right antecubital site with a Angio cath: 22 gauge. IV SITE APPEARANCE: Clean,Dry and Intact SIGNATURE: Cherelle Cordero RN PATIENT NAME: Khadar Dawn DATE: April 30, 2024 TIME: 7:59 AM RADIOLOGY SERVICE PROGRESS NOTE SERVICE DATE: 04/30/2024 SERVICE TIME: 8:24 AM PATIENT IDENTITY VERIFICATION COMPLETED USING TWO (2) STANDARD IDENTIFIERS: Name and Date of confirmed by patient verbally POST EXAM PIV STATUS: Discontinued PROCEDURE TYPE: NM INJECT: PET/CT BODY SCAN. 10.8 mCi F18 FDG. No other medications given.. ADMINISTRATION TIME: 0756 PATIENT DISCHARGED TO: Ambulatory patient, left OR department area. Is this a therapy: No A Diagnostic radioactive procedure has taken place, with no further precautions necessary other than routine body substance precautions. More information regarding radiation safety can be found using this link: [email or web address] ear%20Medicine%[email or web address].[email or web address] SIGNATURE: RT Adenike(R) PATIENT NAME: Khadar Dawn DATE: April 30, 2024 TIME: 8:24 AM PAGER/CONTACT #: documented in this encounter [facility] 04-30-2024 Note HNO ID: [id number] Author: CHERELLE CORDERO RN Service: ? Author Type: Registered Nurse Type: Progress Notes Filed: 04/30/2024 07:59 Note Text: Radiology Service Progress Note DATE OF SERVICE: April 30, 2024 TIME: 7:59 AM PATIENT IDENTITY VERIFICATION COMPLETED USING TWO (2) STANDARD IDENTIFIERS: Name and Date of confirmed by patient verbally. FALL SCREENING: Has the patient had 2 falls in the last year or 1 fall with injury or currently using an Ambulatory Assistive Device (Walker, Cane, Wheelchair, Crutches, etc.)? No PATIENT GENDER DATA: Assigned male at EXAM: CT -CONTRAST INDUCED NEPHROPATHY RISK FACTORS: Not applicable CREATININE: No results found for: CREAT , EGFROTH , EGFRAA P.O.C.T. RESULTS: N/A April 30, 2024 TREATMENT: N/A IV SITE: Ambulatory: A peripheral IV was started in the Right antecubital site with a Angio cath: 22 gauge. IV SITE APPEARANCE: Clean,Dry and Intact SIGNATURE: Cherelle Cordero RN PATIENT NAME: Khadar Dawn DATE: April 30, 2024 TIME: 7:59 AM [facility] 04-30-2024 Note HNO ID: [id number] Author: DG COOK RT(R) Service: ? Author Type: Technologist Type: Progress Notes Filed: 04/30/2024 08:24 Note Text: RADIOLOGY SERVICE PROGRESS NOTE SERVICE DATE: 04/30/2024 SERVICE TIME: 8:24 AM PATIENT IDENTITY VERIFICATION COMPLETED USING TWO (2) STANDARD IDENTIFIERS: Name and Date of confirmed by patient verbally POST EXAM PIV STATUS: Discontinued PROCEDURE TYPE: NM INJECT: PET/CT BODY SCAN. 10.8 mCi F18 FDG. No other medications given.. ADMINISTRATION TIME: 0756 PATIENT DISCHARGED TO: Ambulatory patient, left OR department area. Is this a therapy: No A Diagnostic radioactive procedure has taken place, with no further precautions necessary other than routine body substance precautions. More information regarding radiation safety can be found using this link: [email or web address] [email or web address]-% 20Diagnostic%20Nuclear%20Medicine %20Procedures.pdf SIGNATURE: Dg Cook, RT(R) PATIENT NAME: Khadar Dawn DATE: April 30, 2024 TIME: 8:24 AM PAGER/CONTACT #: [facility] 04-25-2024 Telephone encounter Note Khadar is scheduled for a PET scan on Apr 30 with an arrival time of 8am and a scan time of 915. Confirmed with . [facility] 04-25-2024 Miscellaneous Notes Khadar is scheduled for a PET scan on Apr 30 with an arrival time of 8am and a scan time of 915. Confirmed with . I apologize, per Radiology I can't use this one. I have to give him the next available which is 05/06 or 05/09. First PET opening is Sunday. Please advise if this is ok? In reviewing simulation images right concern of growing nodules outside of the left upper lobe lesion concerning for metastasis. Recommend holding radiation planning. Recommend reimaging with PET scan. Discussed with Dr. Rodriguez and with patient. Dr. Rodriguez can see patient on Sunday when he is in [place]. documented in this encounter [facility] 04-25-2024 Telephone encounter Note I apologize, per Radiology I can't use this one. I have to give him the next available which is 05/06 or 05/09. [facility] 04-25-2024 Telephone encounter Note First PET opening is Sunday. Please advise if this is ok? [facility] 04-25-2024 Telephone encounter Note In reviewing simulation images right concern of growing nodules outside of the left upper lobe lesion concerning for metastasis. Recommend holding radiation planning. Recommend reimaging with PET scan. Discussed with Dr. Rodriguez and with patient. Dr. Rodriguez can see patient on Sunday when he is in [place]. [facility] 04-23-[address] Rodriguez's office called to let us know pt was there for lab today after his visit here. They sent Temp[employer] testing on him which takes [address] Rodriguez wanted to know if Dr Bradshaw felt an MRI or CT brain would be a good idea for patient. If so, Dr Rodriguez would order. Per Dr Bradshaw, he agreed an MRI brain should be order. Their office will take care of ordering and scheduling. Edyta Gilliland, RN [facility] 04-23-[address] Rodriguez's office called to let us know pt was there for lab today after his visit here. They sent Tempus testing on him which takes [address] Rodriguez wanted to know if Dr Bradshaw felt an MRI or CT brain would be a good idea for patient. If so, Dr Rodriguez would order. Per Dr Bradshaw, he agreed an MRI brain should be order. Their office will take care of ordering and scheduling. Edyta Gilliland RN documented in this encounter [facility] 04-23-2024 Telephone encounter Note Call placed to [facility] at [place] ([phone]). Spoke to Kristi to arrange weekly pacemaker checks. Kristi called rep from [employer] and stated he has a single chamber pacemaker and is only paced 6% of the time. Even with the lung field, they feel the risk of any cardiac issues from radiation is very low. They are comfortable with patient doing a home device transmition weekly. We will have pt do this every Sunday once he begins XRT. Calendar reminder set for nursing to let pt know as well. Edyta Gilliland RN [facility] 04-23-2024 Miscellaneous Notes Call placed to [facility] at [place] ([phone]). Spoke to Kristi to arrange weekly pacemaker checks. Kristi called rep from [employer] and stated he has a single chamber pacemaker and is only paced 6% of the time. Even with the lung field, they feel the risk of any cardiac issues from radiation is very low. They are comfortable with patient doing a home device transmition weekly. We will have pt do this every Sunday once he begins XRT. Calendar reminder set for nursing to let pt know as well. Edyta Gilliland RN documented in this encounter [facility] 04-23-2024 Note HNO ID: [id number] Author: Yanelis BRADSHAW MD Service: ? Author Type: Physician Type: Progress Notes Filed: 04/23/2024 09:36 Note Text: se [facility] 04-23-2024 History of Present illness Narrative sim documented in this encounter [facility] 04-23-2024 Telephone encounter Note Per scanned US report, thoracentesis was not done. [facility] 04-23-2024 Miscellaneous Notes Per scanned US report, thoracentesis was not done. Received call from Hui at [facility] radiology asking for images from last Chest XR be pushed over. Patient is there for thoracentesis and the radiologist is not seeing any fluid. I let her know his last XR chest was done at [facility], and the one before that was at [place]. She will call there for images. She said they will probably not be able to do the thoracentesis since there is no fluid that they can see. 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 FIXATION DEVICE: In order to achieve accurate and reproducible treatments, the patient is immobilized with ORFIT AIO 4DCT WAS UTILIZED A time-out was conducted and recorded by the therapist. CT scan was completed for target localization and planning. Field arrangement will be determined after plan has been completed. The patient is scheduled for a verification simulation on the treatment machine to ensure proper set-up and field arrangement is correct prior to the first treatment of primary and boost bowman if applicable. Patient education will be completed per nursing. Electronically Signed Juno Bradshaw M.D. / TS :31 PM documented in this encounter [facility] 04-23-2024 Note HNO ID: [id number] Author: Yanelis BRADSHAW MD Service: ? 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 FIXATION DEVICE: In order to achieve accurate and reproducible treatments, the patient is immobilized with ORFIT AIO 4DCT WAS UTILIZED A time-out was conducted and recorded by the therapist. CT scan was completed for target localization and planning. Field arrangement will be determined after plan has been completed. The patient is scheduled for a verification simulation on the treatment machine to ensure proper set-up and field arrangement is correct prior to the first treatment of primary and boost bowman if applicable. Patient education will be completed per nursing. Electronically Signed Juno Bradshaw M.D. / TS :31 PM [facility] 04-22-2024 Radiology Diagnostic study note [facility] Main [place] [address] [place] [address] Ultrasound Report Signed Patient: Khadar Dawn MR#: [id number] : 1940 Acct:[id number] Age/Sex: 84 / M ADM Date: 5 Loc: Room: Type: [facility] Attending Dr: Comfort Bradshaw MD Ordering Provider: Yanelis Bradshaw MD Date of Service: 04/22/24 US/US guide or thoracentesis: THORA Copies to: Yanelis Bradshaw MD~ ULTRASOUND-GUIDED THORACENTESIS INDICATION: REPORTED EFFUSION COMPARISON: NONE US/US guide or thoracentesis FINDINGS/IMPRESSION: ULTRASOUND LEFT CHEST WALL DEMONSTRATE NO FLUID COLLECTION. PROCEDURE NOT PERFORMED. Impression dictated by: Hal Mojica M.D.04/22/2024 2:57 PM Dictation Location: [place] [address] Tech: Javier Vidal Transcribed By: QING 04/22/241456 Dictated By: Hal Mojica MD 04/22/241455 Signed By: 04/22/241456 [facility] Work Phone: 04-22-2024 Telephone encounter Note Received call from Hui at [facility] radiology asking for images from last Chest XR be pushed over. Patient is there for thoracentesis and the radiologist is not seeing any fluid. I let her know his last XR chest was done at [facility], and the one before that was at [place]. She will call there for images. She said they will probably not be able to do the thoracentesis since there is no fluid that they can see. [facility] 04-21-2024 Telephone encounter Note Consult note faxed to Dr. Rodriguez. [facility] 04-21-2024 Miscellaneous Notes Consult note faxed to Dr. Rodriguez. Erich from Dr. Rodriguez's office called asking for past progress notes for the patient. He stated that the patient was referred and they have not received any information. Please fax records to [phone]. documented in this encounter [facility] 04-21-2024 Telephone encounter Note Patient does not see Dr. Lane. This fax number is for Dr. Rodriguez. Patient's PCP is Dr. Delacruz. Note will be faxed to Dr. Rodriguez and Dr. Delacruz once it is complete. [facility] 04-21-2024 Miscellaneous Notes Patient does not see Dr. Lane. This fax number is for Dr. Rodriguez. Patient's PCP is Dr. Delacruz. Note will be faxed to Dr. Rodriguez and Dr. Delacruz once it is complete. Dr. Lane's office called requesting progress notes from the past 12 months. Please fax to [phone]. They are requesting this today as he has an appointment. Thank you documented in this encounter [facility] 04-21-2024 Telephone encounter Note Records faxed to Dr. Ponce's [place] office. [facility] 04-21-2024 Miscellaneous Notes Records faxed to Dr. Ponce's [place] office. Referral was sent to [place] and [place] offices. Confirmed patient to be scheduled in [place] with Dr. Ponce on 04/23 at 3pm. I called [place] office and explained sent by mistake to please disregard. JACLYN Claudio could you please fax demographics and records to DR. Ponce office at [phone]. He is having a thoracentesis on 04/22. She would like records faxed and images pushed of those as well. Thanks so much Spoke to patient, confirmed pre sim and arrival time 04/23 at 745am. Sim scheduled on 04/23/24 at 830am PSS - please schedule pre sim consent with CHRISTIE at 8am & notify pt of 745 arrival time, no special instructions. Thanks! Vicki Dockery RT(R)(T) Patient scheduled at [facility] on 04/22 at 9am. Arrive at 8am and stop Xarelto 2 days prior. LM for patient of this information and I will call back tomorrow to confirm he got it. Dr Ponce office returned my call. Asked if I would fax everything to their referral fax line. They will review and contact the patient for an appointment. All info was faxed to [phone] Will follow up to see when appt is scheduled Yolanda Schwartz PSS Everything is faxed to [employer] for Shazia Perez and I will check with [employer] daily to see when scheduled I called Dr Rosario jaramillo and got a voicemail stating they are away from their desk. I left a message asking them to return my call as I have a referral I would like to get scheduled. Will update when I hear back from them Yolanda Schwartz PSS Order is signed. Please arrange thoracentesis appt lizette. Thanks Rojelio Guajardo RN Waiting on orders to be signed to fax to IR [facility] PSS/RT: Please schedule [facility] IR for thoracentis return for sim after treating lung no contrast 15 treatments, no concurrent chemo Need presim consent Nurse ed today Consult with Dr. Ponce to establish care with local manager site. pt does not want to travel to current manager site in [place]. Thanks Rojelio Guajardo RN documented in this encounter [facility] 04-21-2024 Telephone encounter Note Referral was sent to [place] and [place] offices. Confirmed patient to be scheduled in [place] with Dr. Ponce on 04/23 at 3pm. I called [place] office and explained sent by mistake to please disregard. [facility] 04-21-2024 Telephone encounter Note JACLYN Shanon could you please fax demographics and records to DR. Ponce office at [phone]. He is having a thoracentesis on 04/22. She would like records faxed and images pushed of those as well. Thanks so much [facility] 04-21-2024 Telephone encounter Note Spoke to patient, confirmed pre sim and arrival time 04/23 at 745am. [facility] 04-21-2024 Telephone encounter Note Erich from Dr. Rodriguez's office called asking for past progress notes for the patient. He stated that the patient was referred and they have not received any information. Please fax records to [phone]. [facility] 04-21-2024 Telephone encounter Note Sim scheduled on 04/23/24 at 830am PSS - please schedule pre sim consent with CHRISTIE at 8am & notify pt of 745 arrival time, no special instructions. Thanks! Vicki Dockery RT(R)(T) [facility] Work Phone: 04-18-2024 Telephone encounter Note Patient scheduled at [facility] on 04/22 at 9am. Arrive at 8am and stop Xarelto 2 days prior. LM for patient of this information and I will call back tomorrow to confirm he got it. [facility] 04-18-[address] Ponce office returned my call. Asked if I would fax everything to their referral fax line. They will review and contact the patient for an appointment. All info was faxed to [phone] Will follow up to see when appt is scheduled Yolanda Schwartz PSS [facility] 04-18-2024 Telephone encounter Note Everything is faxed to [employer] for Shazia Perez and I will check with [employer] daily to see when scheduled I called Dr Ponce office and got a voicemail stating they are away from their desk. I left a message asking them to return my call as I have a referral I would like to get scheduled. Will update when I hear back from them Yolanda Schwartz PSS [facility] 04-18-2024 Telephone encounter Note Order is signed. Please arrange thoracentesis appt lizette. Thanks Rojelio Guajardo RN [facility] 04-17-2024 Telephone encounter Note Waiting on orders to be signed to fax to [facility] 04-16-2024 Note HNO ID: [id number] Author: ROJELIO GUAJARDO RN Service: ? Author Type: Registered Nurse Type: Progress Notes Filed: 04/16/2024 15:30 Note Text: Radiation Therapy - Patient Education Note PATIENT NAME: Khadar Dawn PATIENT April 16, 2024 [facility] FACILITY/LOCATION: [facility] READINESS TO LEARN Cognitive Ability: Alert and oriented Motivation to learn: Interested Family Support: High - Very involved in pt care Instruction provide to: Patient, Family member, and Spouse Patient learns best by: Multiple Methods Factors effecting learning: None Physical limitations effecting learning: None LEARNING RESPONSE Diagnosis: Pt simulated today for radiation therapy to left lung. Education Topic/Teaching Points: Radiation therapy, Side effects, and OTV: Method of instruction: Written instruction/Handouts Verbal instruction Patient /Family response: Patient and family verbalized understanding of radiation treatments, side effects, OTV, and transportation. Follow-up plan: Patient instructed to call with any further issues Recommend - Recommend continued instruction and follow up as directed Contact information given. Supplemental material: Informational handouts on Esophagitis/Mucositis, Fatigue, Skin changes, and managing swallowing difficulties, patient education binder. Referral (recommendation): None, Pt denied need for social work, van service, and atv mechanic. Was PED reviewed? No Patient has an Onbody or Implanted device: Yes, person notified was: Dr. Bradshaw Signed by: Rojelio Guajardo RN [facility] 04-16-2024 History of Present illness Narrative Radiation Therapy - Patient Education Note PATIENT NAME: Khadar Dawn PATIENT April 16, 2024 [facility] [facility] FAC[facility]LOCATION[facility] READINESS TO LEARN Cognitive Ability: Alert and oriented Motivation to learn: Interested Family Support: High - Very involved in pt care Instruction provide to: Patient, Family member, and Spouse Patient learns best by: Multiple Methods Factors effecting learning: None Physical limitations effecting learning: None LEARNING RESPONSE Diagnosis: Pt simulated today for radiation therapy to left lung. Education Topic/Teaching Points: Radiation therapy, Side effects, and OTV: Method of instruction: Written instruction/Handouts Verbal instruction Patient /Family response: Patient and family verbalized understanding of radiation treatments, side effects, OTV, and transportation. Follow-up plan: Patient instructed to call with any further issues Recommend - Recommend continued instruction and follow up as directed Contact information given. Supplemental material: Informational handouts on Esophagitis/Mucositis, Fatigue, Skin changes, and managing swallowing difficulties, patient education binder. Referral (recommendation): None, Pt denied need for social work, van service, and atv mechanic. Was PED reviewed? No Patient has an Onbody or Implanted device: Yes, person notified was: Dr. Bradshaw Signed by: Rojelio Guajardo RN documented in this encounter [facility] 04-16-2024 Telephone encounter Note PSS/RT: Please schedule [facility] for thoracentis return for sim after treating lung no contrast 15 treatments, no concurrent chemo Need presim consent Nurse ed today Consult with Dr. Ponce to establish care with local manager site. pt does not want to travel to current manager site in [place]. Thanks Rojelio Guajardo RN [facility] 04-16-2024 Note HNO ID: [id number] Author: Yanelis BRADSHAW MD Service: ? Author Type: Physician Type: Progress Notes Filed: 04/21/2024 15:24 Note Text: Radiation Oncology - New Patient/Consult Note PATIENT NAME: Khadar Dawn PATIENT REQUESTING PROVIDER: Dr. 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 RADIATION SUMMARY: Course 1: 08/24/2014 - 09/28/2014 pelvis and prostate 4500 cGy in 25 fractions followed by palladium-103 100 Mullins brachytherapy boost on 10/29/2014 HPI: 84 year old male who presents with above diagnosis, for an opinion regarding the role of radiation therapy in the management of the patient's disease. Final recommendations will be communicated back to the requesting physician by way of the shared medical record, or letter to requesting physician via US mail. Patient presented with increased shortness of breath. He underwent evaluation including CT angiogram as noted below. CTA chest 01/10/2024 demonstrating no evidence of pulm embolism. However spiculated 3.4 cm left lung apical mass notable. Additional adjacent irregular nodules left upper lobe. No suspicious hilar or mediastinal adenopathy. Dilated fluid-filled esophagus notable. Patient underwent PET/CT on 02/18/2024 with the finding of a hypermetabolic mass left lung apex, SUV max 11.8, measuring 3 x 2.8 cm. 2 adjacent hypermetabolic nodules measuring 1.4 x 0.9 cm SUV max of 12.1 and 0.7 cm SUV max 3.7. Ground glass changes also seen bilateral lung apices. Hypermetabolic mediastinal lymph node (prevascular) SUV max 510 mm short axis dimension. Bronchoscopy with EBUS on 04/09/2024. No endobronchial lesion identified. EBUS demonstrating 10 mm station 7 lymph node, which was able to be biopsied/FNA. No other enlarged or suspicious lymph nodes. Pathology demonstrating sclerotic lung and blood clot with rare strips of malignant glandular cells on left upper lobe biopsy. Additionally from cytology: Left upper lobe FNA: Adenocarcinoma Left upper lobe washing,: Adenocarcinoma Lymph node station 7 EBUS guided FNA negative for malignancy. Photopenic cystic pancreatic lesion identified. He underwent additional CT chest 04/09/24 demonstratin. Suspicious left upper lobe lung mass with numerous lung nodules bilaterally suggesting possible metastatic disease. 2. Dilated fluid-filled esophagus appears patulous. There is focal outpouching along the posterior wall of the esophagus along its right posterior aspect () measuring roughly 2.5 x 2 cm, this contains internal high density material, it is possible this may reflect a diverticulum however recommend esophagram evaluation for confirmation. 3. Pancreatic mass as described, recommend MRCP evaluation in size. 4. Small right adrenal adenoma 1.3 cm, slight left adrenal thickening. However given history of possible lung cancer consider imaging follow-up. Focused ROS: Fatigue: moderate Weight loss: 10-15 Appetite: fair Nausea: no Shortness of breath: Moderate Cough: Mild Hemoptysis: No Dysphagia: No Pain with swallowing: No ALLERGIES No Known Allergies MEDICATIONS: simvastatin (ZOCOR) 20 mg tablet glimepiride (AMARYL) 2 mg tablet Take 2 mg by mouth once daily. IRON,CARB/VIT C/VIT B12/FOLIC (IRON 100 PLUS ORAL) Take by mouth. metoprolol succinate ER (TOPROL XL) 50 mg 24 hr tablet Take 50 mg by mouth once daily. metFORMIN (GLUCOPHAGE) 500 mg tablet Cinnamon Bark (CINNAMON) 500 mg cap Take 1,000 mg by mouth once daily. Multivitamin capsule Take 1 capsule by mouth once daily. DOCOSAHEXANOIC ACID/EPA (FISH OIL ORAL) Take by mouth. amLODIPine-benazepril (LOTREL) 10-20 mg per capsule Take 1 capsule by mouth once daily. rivaroxaban (XARELTO) 20 mg tablet Take 20 mg by mouth once daily. PAST MEDICAL HISTORY Diagnosis Date Atrial fibrillation (HCC) 05/24/14 Diabetes mellitus (HCC) Eczema Hyperlipidemia Hypertension Occlusion and stenosis of carotid artery without mention of cerebral infarction Prostate cancer (HCC) Sinusitis Wart right hand Prior radiation therapy, collagen vascular disease, or inflammatory bowel disease: No Any implanted or external electric devices? No PAST SURGICAL HISTORY Procedure Laterality Date CAROTID ENDARTERECTOMY 1996 right COLONOSCOPY 08/06 PAST SURGICAL HISTORY OF hydrocele repair PAST SURGICAL HISTORY OF radium seed implants prostate 11/29/2014 FAMILY HISTORY Problem Relation Age of Onset Ischemic Heart Disease Father at age 53 Cancer Sister breast Breast Cancer Sister breast Cancer Sister breast Cancer Sister breast Social History Tobacco Use Smoking status: Former Current packs/day: 0.00 Average packs/day: 2.0 packs/day for 30.0 years (60.0 ttl pk-yrs) (more content not included)... [facility] 04-16-2024 History of Present illness Narrative Radiation Oncology - New Patient/Consult Note PATIENT NAME: Khadar Dawn PATIENT REQUESTING PROVIDER: Dr. 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 RADIATION SUMMARY: Course 1: 08/24/2014 - 09/28/2014 pelvis and prostate 4500 cGy in 25 fractions followed by palladium-103 100 Mullins brachytherapy boost on 10/29/2014 HPI: 84 year old male who presents with above diagnosis, for an opinion regarding the role of radiation therapy in the management of the patient's disease. Final recommendations will be communicated back to the requesting physician by way of the shared medical record, or letter to requesting physician via US mail. Patient presented with increased shortness of breath. He underwent evaluation including CT angiogram as noted below. CTA chest 01/10/2024 demonstrating no evidence of pulm embolism. However spiculated 3.4 cm left lung apical mass notable. Additional adjacent irregular nodules left upper lobe. No suspicious hilar or mediastinal adenopathy. Dilated fluid-filled esophagus notable. Patient underwent PET/CT on 02/18/2024 with the finding of a hypermetabolic mass left lung apex, SUV max 11.8, measuring 3 x 2.8 cm. 2 adjacent hypermetabolic nodules measuring 1.4 x 0.9 cm SUV max of 12.1 and 0.7 cm SUV max 3.7. Ground glass changes also seen bilateral lung apices. Hypermetabolic mediastinal lymph node (prevascular) SUV max 510 mm short axis dimension. Bronchoscopy with EBUS on 04/09/2024. No endobronchial lesion identified. EBUS demonstrating 10 mm station 7 lymph node, which was able to be biopsied/FNA. No other enlarged or suspicious lymph nodes. Pathology demonstrating sclerotic lung and blood clot with rare strips of malignant glandular cells on left upper lobe biopsy. Additionally from cytology: Left upper lobe FNA: Adenocarcinoma Left upper lobe washing,: Adenocarcinoma Lymph node station 7 EBUS guided FNA negative for malignancy. Photopenic cystic pancreatic lesion identified. He underwent additional CT chest 04/09/24 demonstratin. Suspicious left upper lobe lung mass with numerous lung nodules bilaterally suggesting possible metastatic disease. 2. Dilated fluid-filled esophagus appears patulous. There is focal outpouching along the posterior wall of the esophagus along its right posterior aspect () measuring roughly 2.5 x 2 cm, this contains internal high density material, it is possible this may reflect a diverticulum however recommend esophagram evaluation for confirmation. 3. Pancreatic mass as described, recommend MRCP evaluation in size. 4. Small right adrenal adenoma 1.3 cm, slight left adrenal thickening. However given history of possible lung cancer consider imaging follow-up. Focused ROS: Fatigue: moderate Weight loss: 10-15 Appetite: fair Nausea: no Shortness of breath: Moderate Cough: Mild Hemoptysis: No Dysphagia: No Pain with swallowing: No ALLERGIES No Known Allergies MEDICATIONS: simvastatin (ZOCOR) 20 mg tablet glimepiride (AMARYL) 2 mg tablet Take 2 mg by mouth once daily. IRON,CARB/VIT C/VIT B12/FOLIC (IRON 100 PLUS ORAL) Take by mouth. metoprolol succinate ER (TOPROL XL) 50 mg 24 hr tablet Take 50 mg by mouth once daily. metFORMIN (GLUCOPHAGE) 500 mg tablet Cinnamon Bark (CINNAMON) 500 mg cap Take 1,000 mg by mouth once daily. Multivitamin capsule Take 1 capsule by mouth once daily. DOCOSAHEXANOIC ACID/EPA (FISH OIL ORAL) Take by mouth. amLODIPine-benazepril (LOTREL) 10-20 mg per capsule Take 1 capsule by mouth once daily. rivaroxaban (XARELTO) 20 mg tablet Take 20 mg by mouth once daily. PAST MEDICAL HISTORY Diagnosis Date Atrial fibrillation (HCC) 05/24/14 Diabetes mellitus (HCC) Eczema Hyperlipidemia Hypertension Occlusion and stenosis of carotid artery without mention of cerebral infarction Prostate cancer (HCC) Sinusitis Wart right hand Prior radiation therapy, collagen vascular disease, or inflammatory bowel disease: No Any implanted or external electric devices? No PAST SURGICAL HISTORY Procedure Laterality Date CAROTID ENDARTERECTOMY 1996 right COLONOSCOPY 08/06 PAST SURGICAL HISTORY OF hydrocele repair PAST SURGICAL HISTORY OF radium seed implants prostate 11/29/2014 FAMILY HISTORY Problem Relation Age of Onset Ischemic Heart Disease Father at age 53 Cancer Sister breast Breast Cancer Sister breast Cancer Sister breast Cancer Sister breast Social History Tobacco Use Smoking status: Former Current packs/day: 0.00 Average packs/day: 2.0 packs/day for 30.0 years (60.0 ttl pk-yrs) Types: Cigarettes Start date: 03/05/1969 Quit date: 03/05/1999 Years since quittin.1 Smokeless tobacco: Never Substance Use Topics Alcohol use: No Drug use: No COMPLETE REVIEW OF SYSTEMS: GENERAL: admits to fatigue NECK: denies swelling or pain in neck RESPIRATORY: see hpi MUSCULOSKELETAL: denies any painful or swollen joints, no muscle aches NEURO: no numbness or paresthesias and no weakness of the extremities As noted in HPI PHYSICAL EXAM: VS: BP 121/72 Temp (!) 35.9 C (96.7 F) Resp 18 Wt 75.2 kg (165 lb 12.6 oz) SpO2 88% BMI 26.77 kg/m KPS:90 General Appearance: Alert and oriented. No acute distress. HEENT: NCAT. Sclera anicteric. PERRL. EOMI. Neck: Normal ROM. No palpable cervical or supraclavicular adenopathy. Chest: No respiratory distress. Lungs clear to auscultation bilaterally. Dec bs zachary bases Musculoskeletal: No edema. Normal ROM in extremities. No bone or spine tenderness. Neuro: Speech fluent. Gait normal. No focal deficits. Skin: No rashes noted Lymphatics: No palpable lymphadenopathy. Hematologic: No signs of active bleeding. RADIOLOGY/LABORATORY DATA: see HPI ASSESSMENT AND PLAN: 1. 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 Non-small cell carcinoma left upper lung. T4 N0/2 M0 Patient presented with increasing dyspnea. Finding of mass left upper lobe with separate nodules in the same lobe. PET scan demonstrating significant uptake within left upper lobe nodules and moderate uptake to an AP window lymph node. [facility] with EBUS negative level 7 lymph node sampling, and confirmation of adenocarcinoma left upper lung lesion. Patient in the interim has developed bilateral pleural effusions which may well be related to CHF however I do feel further investigation is warranted to rule out malignant effusion, and the thoracentesis may have some therapeutic benefit for patient as well. If cytology negative options would be combined modality therapy assuming AP window lymph node is involved versus radiation only. Radiation could be delivered in a moderate hypofractionated manner encompassing both the lymph node and nodules within the left upper lobe. Could also consider SBRT approach to the left upper lobe nodules only and then surveillance of the mediastinum with treatment should he progress in that area. I do feel that patient would likely need a mediastinoscopy for pathologic diagnosis of the questionable finding in the AP window area. He is not interested in further invasive procedure. Given that he does not seem to be a very suitable candidate for combined therapy I would lean toward treating both the AP window lymph node and lung areas with a 3-week course of moderate hypofractionated radiation and would suspect his tolerance would be very good. Plan to have patient back after thoracentesis and will discuss further with Dr. Rodriguez at that time. Signed by: Yanelis Bradshaw MD cc: Josy M Nubia [address] [id number] Meeta Rodriguez [address] [facility] [address] Pacemaker/Defibrillator? Yes 03/03 placed Previous Cancer(s)? Yes Prostate Previous Radiation? Yes- Here Lupus/Scleroderma?No On body monitoring device? No Edyta Gilliland RN documented in this encounter [facility] 04-16-2024 Note HNO ID: [id number] Author: EDYTA GILLILAND, RN Service: ? Author Type: Registered Nurse Type: Progress Notes Filed: 04/21/2024 15:24 Note Text: Pacemaker/Defibrillator? Yes 03/03 placed Previous Cancer(s)? Yes Prostate Previous Radiation? Yes- Here Lupus/Scleroderma?No On body monitoring device? No Edyta Gilliland RN [facility] 04-16-2024 Note Education (RADTSA) KHADAR DAWN ([id number]) 1940 M Date Time Provider Department 04/16/24 ROJELIO GUAJARDO Reason for Visit: Patient Education [91] During your visit today, we recorded the following information about you: Allergies As of Date: 04/16/2024 (No Known Allergies) Date Reviewed: 04/16/2024 Reviewed by: Edyta Gilliland, RN - Fully Assessed Prescriptions as of 04/16/2024 - amLODIPine (NORVASC) 10 mg tablet Take 10 mg by mouth once daily. - cefdinir (OMNICEF) 300 mg capsule Take 300 mg by mouth two times a day. - furosemide (LASIX) 40 mg tablet Take 40 mg by mouth once daily. - lisinopril (ZESTRIL) 20 mg tablet Take 20 mg by mouth once daily. - potassium chloride (K-TAB) 10 mEq tablet Take 10 mEq by mouth two times a day. - predniSONE (DELTASONE) 10 mg tablet Take 10 mg by mouth once daily. - fluconazole (DIFLUCAN) 200 mg tablet Take 200 mg by mouth once daily. - LATANOPROST OPHTHALMIC Use in eyes. - empagliflozin (JARDIANCE) 10 mg tablet Take 10 mg by mouth daily with breakfast. - pantoprazole DR (PROTONIX) 40 mg tablet Take 40 mg by mouth once daily. - simvastatin (ZOCOR) 20 mg tablet - glimepiride (AMARYL) 2 mg tablet Take 2 mg by mouth once daily. - IRON,CARB/VIT C/VIT B12/FOLIC (IRON 100 PLUS ORAL) Take by mouth. - metoprolol succinate ER (TOPROL XL) 50 mg 24 hr tablet Take 75 mg by mouth once daily. - metFORMIN (GLUCOPHAGE) 500 mg tablet - Cinnamon Bark (CINNAMON) 500 mg cap Take 1,000 mg by mouth once daily. - Multivitamin capsule Take 1 capsule by mouth once daily. - DOCOSAHEXANOIC ACID/EPA (FISH OIL ORAL) Take by mouth. - amLODIPine-benazepril (LOTREL) 10-20 mg per capsule Take 1 capsule by mouth once daily. - rivaroxaban (XARELTO) 20 mg tablet Take 20 mg by mouth once daily. Encounter Status:Closed by ROJELIO GUAJARDO on 04/16/24 [facility] 04-15-[address] Lane's office called requesting progress notes from the past 12 months. Please fax to [phone]. They are requesting this today as he has an appointment. Thank you [facility] 04-09-2024 Note Patient: Khadar cox Procedure Summary Date: 04/09/24 Room / Location: [facility] Main Operating Room Anesthesia Start: 1110 Anesthesia Stop: 1229 Procedure: BRONCHOSCOPY Diagnosis: Lung mass Centrilobular emphysema (CMS/HCC) Chronic hypoxic respiratory failure (CMS/HCC) Scheduled Providers: Cara Perez MD; Zuly Rizo MD Responsible Provider: Zuly Rizo MD Anesthesia Type: general ASA Status: 4 Anesthesia Type: general Vitals Value Taken Time BP 147/112 04/09/24 1310 Temp 36.6 ???C (97.9 ???F) 04/09/24 1225 Pulse 104 04/09/24 1313 Resp 9 04/09/24 1313 SpO2 92 % 04/09/24 1313 Vitals shown include unfiled device data. Anesthesia Post Evaluation Patient location during evaluation: PACU Patient participation: complete - patient participated Level of consciousness: awake and alert Pain score: 2 Pain management: adequate Multimodal analgesia pain management approach Airway patency: patent Two or more strategies used to mitigate risk of obstructive sleep apnea Cardiovascular status: hemodynamically stable Respiratory status: acceptable, spontaneous ventilation, nonlabored ventilation and nasal cannula (5L baseline home o2 supp) Hydration status: euvolemic Patient is hemodynamically stable and is able to be discharged from PACU per anesthesia protocol. No notable events documented. [facility] 04-09-2024 Note Airway Date/Time: 04/09/2024 11:21 AM Urgency: elective Airway not difficult General Information and Staff Patient location during procedure: OR Anesthesiologist: Zuly Rizo MD Resident/PLANT SUPERINTENDENT/CAA: Anmol Mccray MD Performed: resident/PLANT SUPERINTENDENT/CAA Learner assisted: MS Indications and Patient Condition Indications for airway management: anesthesia Spontaneous Ventilation: absent Sedation level: deep Preoxygenated: yes Mask difficulty assessment: 1 - vent by mask Final Airway Details Final airway type: endotracheal airway Successful airway: ETT Cuffed: yes Successful intubation technique: video laryngoscopy Facilitating devices/methods: intubating stylet Endotracheal tube insertion site: oral Blade: Porter Blade size: #3 ETT size (mm): 7.5 Cormack-Lehane Classification: grade I - full view of glottis Placement verified by: chest auscultation and capnometry Measured from: lips ETT to lips (cm): 22 Number of attempts at approach: 1 [facility] 04-09-[address] Rizo at pt beds gabriella to assess before heading to procedure room. [facility] 04-09-2024 Note H&P reviewed. The pa tient was examined and there are no changes to the H&P. Re-explained the procedure to the patient along with the associated risk of pneumothorax, bleeding, hypoxia, and respiratory failure. Patient is agreeable and will proceed with the scheduled Robotic bronchoscopy and TBBx, FNA, EBUS Cara Perez MD Interventional Pulmonary Medicine Pulmonary and Critical Care Medicine [facility] 04-09-2024 Note PROCEDURE: CT CHEST WITHOUT CONTRAST CLINICAL INDICATION: Lung mass. COMPARISON: None TECHNIQUE: CT was performed of the without intravenous contrast. Coronal & sagittal MPR images were generated and reviewed. FINDINGS: Lower Neck & Thyroid: Unremarkable. Lungs: Ill-defined spiculated left upper lobe lung mass medially measuring up to 3.6 cm Diameter. This abuts the medial pleural. There are several adjacent nodular opacities as well left upper lobe, largest roughly 2 x 1.2 cm. Numerous other smaller lung nodules throughout both lungs, for example posterior right lower lobe lung nodules largest 6 mm (2/60) as well as a 0.9 cm nodule left upper lobe abutting the major fissure (49). Background of emphysema. Several subcentimeter right upper, left lower lobe lung nodules. Central Airway: Unremarkable. Pleura: Small right, trace left-sided pleural effusions. Thoracic Aorta & Great Vessels: Normal in diameter. Advanced atherosclerotic calcification. Pulmonary Arteries: Unremarkable. Heart & Pericardium: Moderate coronary arterial calcification. Borderline to mild cardiomegaly. Lymph Nodes: No enlarged thoracic lymph nodes. Mediastinum & Esophagus: Dilated fluid-filled esophagus appears patulous. There is focal outpouching along the posterior wall of the esophagus along its right posterior aspect (/) measuring roughly 2.5 x 2 cm, this contains internal high density material, it is possible this may reflect a diverticulum however recommend esophagram evaluation for confirmation. Thoracic Spine & Chest Wall: No suspicious osseous lesion. Other Lines/Tubes/Devices/Hardware: Left chest wall CIED. Visualized Upper Abdomen: Small right adrenal adenoma 1.3 cm, slight left adrenal thickening. However given history of possible lung cancer consider imaging follow-up. Indeterminate posterior right renal mass 3.3 cm, recommend ultrasound. Unilocular cystic mass pancreatic body measuring 3.1 cm. Recommend MRCP characterization.. IMPRESSION: 1. Suspicious left upper lobe lung mass with numerous lung nodules bilaterally suggesting possible metastatic disease. 2. Dilated fluid-filled esophagus appears patulous. There is focal outpouching along the posterior wall of the esophagus along its right posterior aspect () measuring roughly 2.5 x 2 cm, this contains internal high density material, it is possible this may reflect a diverticulum however recommend esophagram evaluation for confirmation. 3. Pancreatic mass as described, recommend MRCP evaluation in size. 4. Small right adrenal adenoma 1.3 cm, slight left adrenal thickening. However given history of possible lung cancer consider imaging follow-up. All CT scans at this facility use dose modulation, iterative reconstruction, and/or weight based dosing when appropriate to reduce radiation dose to as low as reasonably achievable. Electronically signed: David Hoffman MD. Not Vldtd [facility] 04-08-2024 Note Patient: Khadar cox Procedure Information Date/Time: 04/09/24 1030 Scheduled providers: Cara Perez MD; Zuly Rizo MD Procedure: BRONCHOSCOPY Location: [facility] Main Operating Room Relevant Problems Cardio S/p single chamber pacer placed 03/03/2024 (+) Atrial fibrillation (CMS/HCC) (+) Coronary atherosclerosis (+) Hypertension (+) Nonrheumatic aortic valve stenosis (+) Pulmonary hypertension (CMS/HCC) (+) Sinus pause /Renal (+) Renal cyst Suman last taken ___ ECHO 06/10/2020: Global left ventricular systolic function is difficult to assess but appears preserved. Preserved right ventricular systolic function. Mild to moderate mild regurgitation. Moderate tricuspid regurgitation. Moderately elevated right-sided pressures. The patient appears to be in atrial fibrillation with rapid ventricular response. Cath 02/19/2022: FINAL IMPRESSIONS: 1. Severe stenoses of the [...] failure. 5. Low normal cardiac output/cardiac index. Clinical information reviewed: Physical Exam Airway Mallampati: II TM distance: >3 FB Neck ROM: full Cardiovascular Rhythm: irregular Rate: normal Dental Pulmonary (+) wheezes Comments: Rt inspiratory wheeze Abdominal Anesthesia Plan ASA 4 general (POHA: Pt had hypoxia while on supp O2, with HR varying between 50 and 100, +Rt wheeze. Treated with DuoNeb. ECG obtained. R/B/A discussed with surgeon and pt, and pt's spouse at bedside. All express understanding of possible post-op mechanical ventilation, respiratory & / or cardiac complications, possible inpatient admission, and wish to proceed. Plan avoidance of Benzos / Narcotics.) The patient is not a current smoker. Patient was previously instructed to abstain from smoking on day of procedure. Patient did not smoke on day of procedure. Education provided regarding risk of obstructive sleep apnea. intravenous induction Postoperative administration of opioids is intended. Anesthetic plan and risks discussed with patient. Use of blood products discussed with patient who consented to blood products. Plan discussed with attending and resident. Additional Equipment Requests [facility] 03-20-2024 Note Attestation signed by Cara Perez MD at 03/21/2024 11:55 AM I have seen and examined the patient. I reviewed the resident/fellow note and I agree with the findings and plan. Cara Perez MD Interventional Pulmonary Medicine Pulmonary and Critical Care Medicine [facility] Visit Note Patient: Khadar Dawn Age: 84 y.o. : 1940 Account No.: [id number] Referring physician: Dr. Delacruz Chief complaint: Lung mass HPI 77-year-old male [...] failure) (CMS/HCC) Coronary artery disease Diabetes mellitus ([facility]) Hyperkalemia Hyperlipidemia Hypertension Past Surgical History: Procedure [...] by mouth in the morning. 09/29/22 Yes Laura Potts NP ferrous sulfate 325 (65 Fe) MG [...] rales CARDIOVASCULAR: Re (more content not included)... [facility] 03-10-2024 Note [place] [facility] Subjective Khadar Dawn is a 84 y.o. year old male [...] was seen at that time by Dr. Rivas. The patient is here today for follow-up [...] extremities. PSYCH: gloria (more content not included)... [facility] 03-03-2024 Note SINGLE CHAMBER PACEM CRUZITO IMPLANT PROCEDURE NOTE DATE OF PROCEDURE: 03/03/2024 PERFORMING PHYSICIAN: Dr. Aaron Rivas CONSENT: Patient LOCATION: EP Lab PROCEDURE PERFORMED: 1. Implantation of pacemaker ([employer]) 2. Ultrasound guided venous access INDICATIONS: 1. [...] using modified seldinger technique using a 5 Cook Islander micro-puncture needle on one occasion and 0.35 [...] for the device above the muscle. 6 [place] Islander Safesheaths were placed over the wire. An active fixation [employer] pacing lead was then delivered through the 6Fsheath to the right ventricle. After confirmation of lead position on orthogonal views (GODINEZ and UKRAINIAN) to confirm septal position, the screw was [...] discharge or sooner for any concerns. 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 Use of blood products discussed with patient who. Additional Equipment Requests [facility] 02-22-2024 Note Today I reviewed pat ient [...] to 12.5 twice daily[address] I contacted Dr. Rivas and the patient will be seen soon to be evaluated for permanent pacemaker. We also put him on the schedule to see Dr. Rivas next time he is in [place] office 03/18/2024. The patient was advised to come to the emergency room immediately if he has any dizziness. [facility] 02-08-2024 Note [place] [facility] Subjective Khadar Dawn is a 83 y.o. year old male patient being seen for Hospital Follow-up (He was admitted to [facility] last month for CHF. Say he's feeling [...] was seen at that time by Dr. Rivas. The patient is here today for follow-up [...] and other tests (more content not included)... [facility] 11-27-2023 Note Right Eye Reliability was good. Progression has been stable. Foveal threshold was normal. Findings include normal observations. Left Eye Reliability was good. Progression has been stable. Foveal threshold was normal. Findings include central scotoma. [facility] 11-27-2023 Note Right Eye Quality was good. Scan locations included subfoveal. Progression has been stable. Findings include abnormal foveal contour. Left Eye Quality was good. Scan locations included subfoveal. Progression has been stable. Findings include abnormal foveal contour, subretinal scarring. Notes Retinal pigment epithelium (RPE) changes c/w drusen Macular volume loss both eyes (OU) [facility] 11-27-2023 History of Present illness Narrative Images [...] worsening of vision documented in this encounter [facility] 10-19-2023 Hospital Discharge instructions Patient Education 10/19/2023 [...] urethra. Follow these instructions at home: Take tjrd-sjx-irzngxt and prescription medicines only as told by [...] provider. Document Revised: 09/07/2021 Document Reviewed: 09/07/2021 Ensequence Patient Education 2022 [employer]. Follow Up Care 12/11/2022 11:11:41 With:ALFIE WISE, Yousuf Barroso, URL Address: [address] [place] [address]- When: Unknown [facility] Patient Education Urology Benign Prostatic [...] Follow these instructions at home: ? Take sgus-dds-cejhcbp and prescription medicines only as told by [...] develop side effec (more content not included)... [facility] 09-25-2023 Note Patient here for 6 m [...] All other systems reviewed and are negative. [facility] 09-25-2023 Note Cardiovascular Medic [facility] SUBJECTIVE Chief Complaint Patient presents with Coronary Artery Disease Atrial Fibrillation Khadar Dawn is a 83 y.o. male is being [...] Final QTC CALCULATION(BAZETT) 08/03/2020 428 ms Final R-Exeter 08/03/2020 -82 degrees Final T Wave Exeter 06 (more content not included)... [facility] 10-17-2022 Hospital Discharge instructions Patient Education 10/17/2022 [...] degrees. Follow Up Care 10/13/2022 11:04:22 With:Yousuf JUDGE Address: [facility] [address] [place] [address]- Business (1) When: Unknown Comments:Office will call to schedule follow up [place] 10-13-2022 Hospital Discharge instructions Patient Education 10/13/2022 [...] urethra. Follow these instructions at home: Take qwpi-jrj-ryzfswm and prescription medicines only as told by [...] provider. Document Revised: 09/07/2021 Document Reviewed: 09/07/2021 Ensequence Patient Education 2022 [employer] Follow Up Care 04/25/2021 10:27:16 With:Yousuf JUDGE MD, URL Address: [facility] [address], [place] [address]- When: Unknown Comments:radha Cysto. [facility] Evaluation + Plan note Future Appointments Appointment Date:10/16/2022 10:45:00 AM Scheduled Provider: Location:[facility] Appointment Type:Urology CALL PAT FT Appointment Date:10/17/2022 10:00:00 AM Scheduled Provider: Location:[facility] Appointment Type:Urology FT Diagnostic Tests PendingPSA Total 10/13/22 [facility] Evaluation + Plan note Future Appointments Appointment Date:10/20/2024 10:30:00 AM Scheduled Provider:Yousuf JUDGE MD Location:[facility] Appointment Type:URO Office Visit Diagnostic Tests PendingPSA Total 09/02/24 [facility] Evaluation note Diagnosis Primary open angle glaucoma (POAG) of both eyes, mild stage (CMS/HCC)- Primary 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) Age-related nuclear cataract of both eyes 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 [facility] Diagnosis Atrial fibrillation, unspecified type (HCC)- Primary Malignant neoplasm of lung, unspecified laterality, unspecified part of lung (HCC) [facility] Malignant neoplasm of lung, unspecified laterality, unspecified part of lung (HCC)- Primary [facility] Diagnosis Malignant neoplasm of lung, unspecified laterality, unspecified part of lung (HCC)- Primary [facility] Diagnosis Malignant neoplasm of unspecified part of unspecified bronchus or lung (HCC)- Primary [facility] Work Phone: Evaluation note* Diagnosis Malignant neoplasm of lung, unspecified laterality, unspecified part of lung (HCC)- Primary [facility] Diagnosis Malignant neoplasm of unspecified part of unspecified bronchus or lung (HCC) [facility] Diagnosis Primary open angle glaucoma (POAG) of both eyes, mild stage (CMS/HCC) [facility] N[facility] No data available for this section [facility] progress note No data available for this section [facility] Summary Purpose Family History No Family History Records FoundNo Family History Records Found No data available for this section No Family History Records FoundNo Family History Records FoundNo Family History Records FoundNo Family History Records FoundNo Family History Records Found Advance Directives No Advanced Directives Records Found Advance Directive Response Recorded Date/ Time Advance Directives No August 13 11:33am Chief Complaint and Reason for Visit Chief Complaint Admit Date C34.90 April 22, 2024 7:56am Additional Source Comments (unrecognized sect ion and content) No Status Records FoundNo Status Records FoundNo Status Records FoundNo Status Records FoundNo Status Records FoundNo Status Records FoundNo Status Records Found INFORMATION SOURCE (unrecogn ized section and content) DATE CREATED AUTHOR 08/09/2020 [facility] DATE CREATED AUTHOR AUTHOR'S ORGANIZ ATION 04/22/2022 [facility] DATE CREATED AUTHOR AUTHOR'S ORGANIZ ATION 10/21/[address] [facility] DATE CREATED AUTHOR AUTHOR'S ORGANIZ ATION 11/29/2023 [facility] EPIC DATE CREATED AUTHOR AUTHOR'S ORGANIZ ATION 04/28/2024 [facility] DATE CREATED AUTHOR AUTHOR'S ORGANIZ ATION 05/06/2024 [facility] DATE CREATED AUTHOR AUTHOR'S ORGANIZ ATION 05/06/2024 [facility] Patient Care team informatio n (unrecognized section and content) Director Of Institutional Sales Relationship Specialty Start Date End Date Josy Delacruz MD PCP - General Family Medicine 05/26/14 Director Of Institutional Sales Relationship Specialty Start Date End Date Josy Delacruz MD PCP - General Family Medicine 05/26/14 Director Of Institutional Sales Relationship Specialty Start Date End Date Josy Delacruz MD PCP - General Family Medicine 05/26/14 Director Of Institutional Sales Relationship Specialty Start Date End Date Josy Delacruz MD PCP - General Family Medicine 05/26/14 Director Of Institutional Sales Relationship Specialty Start Date End Date Josy Delacruz MD PCP - General Family Medicine 05/26/14 Director Of Institutional Sales Relationship Specialty Start Date End Date Josy Delacruz MD PCP - General Family Medicine 05/26/14 Director Of Institutional Sales Relationship Specialty Start Date End Date Josy Delacruz MD PCP - General Family Medicine 05/26/14 Team Status: Active Member Role Status Devan Delacruz MD Primary Care Provider Active Team Status: Inactive Member Role Status Devan Delacruz MD Primary Care Provider Active Start: April 22, 2024 End: April 22, 2024 Comfort Bradshaw MD Attending Provider Active Start: April 22, 2024 End: April 22, 2024 Director Of Institutional Sales Relationship Specialty Start Date End Date Josy Delacruz MD PCP - General Family Medicine 05/26/14 Director Of Institutional Sales Relationship Specialty Start Date End Date Josy Delacruz MD PCP - General Family Medicine 05/26/14 Reason for Visit (unrecogniz ed section and content) Reason Comments Eye Exam Glaucoma Macular Degeneration Cataract Reason Comments Patient Education Reason Comments Lung Cancer Reason Comments Thoracentesis Reason Onset Date Comments Simulation Request Form 04/23/2024 Reason Comments Medical Engineer - Other Reason Comments Future Appointment Medical Engineer - Other Pacemaker Check s During XRT Reason Comments Appointment Orders Reason Comments Radiology NM Specialty Diagnoses / Procedures Referred By Contac t Referred To Contact MOLECULAR & FUNCTIONAL IMAGING Diagnoses Malignant neoplasm of unspecified part of unspecified bronchus or lung (HCC) Procedures NM PET/CT SKULL-THIGH SUBSEQUENT PET IMAGING CT ATTENUATION SKULL [place] [address] [place] [address] Phone: tel: Molecular Imaging [address] [place] [address] Phone: tel: Referral ID Status Reason Start Date Expiration Date V isits Requested Visits Authorized [id number] Closed Auto-Generate d Referral 04/26/2024 05/25/2025 1 1 Reason Onset Date Comments Med Refill 05/02/2024 Source Comments (unrecognize d section and content) In the event this informatio n is protected by the Federal Confidentiality of Alcohol and Drug Abuse Patient Records regulations: The Federal rules restrict any use of the information to criminally investigate or prosecute any alcohol or drug abuse patient.[facility] the event this information is protected by the Federal Confidentiality of Alcohol and Drug Abuse Patient Records regulations: The Federal rules restrict any use of the information to criminally investigate or prosecute any alcohol or drug abuse patient.[facility] Hospital[facility] the event this information is protected by the Federal Confidentiality of Alcohol and Drug Abuse Patient Records regulations: The Federal rules restrict any use of the information to criminally investigate or prosecute any alcohol or drug abuse patient.[facility] Hospital[facility] the event this information is protected by the Federal Confidentiality of Alcohol and Drug Abuse Patient Records regulations: The Federal rules restrict any use of the information to criminally investigate or prosecute any alcohol or drug abuse patient.[facility] Hospital[facility] the event this information is protected by the Federal Confidentiality of Alcohol and Drug Abuse Patient Records regulations: The Federal rules restrict any use of the information to criminally investigate or prosecute any alcohol or drug abuse patient.[facility] the event this information is protected by the Federal Confidentiality of Alcohol and Drug Abuse Patient Records regulations: The Federal rules restrict any use of the information to criminally investigate or prosecute any alcohol or drug abuse patient.[facility] Hospital[facility] the event this information is protected by the Federal Confidentiality of Alcohol and Drug Abuse Patient Records regulations: The Federal rules restrict any use of the information to criminally investigate or prosecute any alcohol or drug abuse patient.[facility] Hospital[facility] the event this information is protected by the Federal Confidentiality of Alcohol and Drug Abuse Patient Records regulations: The Federal rules restrict any use of the information to criminally investigate or prosecute any alcohol or drug abuse patient.[facility] Hospital[facility] the event this information is protected by the Federal Confidentiality of Alcohol and Drug Abuse Patient Records regulations: The Federal rules restrict any use of the information to criminally investigate or prosecute any alcohol or drug abuse patient.[facility] Hospital[facility] the event this information is protected by the Federal Confidentiality of Alcohol and Drug Abuse Patient Records regulations: The Federal rules restrict any use of the information to criminally investigate or prosecute any alcohol or drug abuse patient.[facility] HospitalIn the event this information is protected by the Federal Confidentiality of Alcohol and Drug Abuse Patient Records regulations: The Federal rules restrict any use of the information to criminally investigate or prosecute any alcohol or drug abuse patient.[facility] Hospital[facility] the event this information is protected by the Federal Confidentiality of Alcohol and Drug Abuse Patient Records regulations: The Federal rules restrict any use of the information to criminally investigate or prosecute any alcohol or drug abuse patient.[facility] Hospital[facility] the event this information is protected by the Federal Confidentiality of Alcohol and Drug Abuse Patient Records regulations: The Federal rules restrict any use of the information to criminally investigate or prosecute any alcohol or drug abuse patient.[facility] Goals (unrecognized section and content) Goals may be documented in a n alternate section FOR RECORDS PERTAINING TO PATIENTS WHO ARE [...] BE BASED ON THE PRIMARY CLINICAL RECORDS. [facility]. provides no warranty or guarantee of the accuracy or completeness of information in this document.
[2024-05-12 11:01] LABS: Anion Gap 9.4; BUN Creatinine Ratio 16.1; Calcium 9.4 mg/dL (8.5-10.1); Carbon Dioxide 32.9 mmol/L (21.0-32.0); Chloride 103 mmol/L (98-107); Estimated GFR (African America >60 (>=60 mL/min/1.73m^2); Estimated GFR (Non-African Ame 56 (>=60 mL/min/1.73m^2); Glucose 161 mg/dL (74-106); Potassium 4.3 mmol/L (3.5-5.1); Sodium 141 mmol/L (136-145)
== END 2024-05-12 10:02 | disposition home or self-care (01) ==
LOC: LAB 10:03
PROVIDERS: PCP Family Medicine; Visit Provider Internal Medicine Cardiovascular Disease
DX: I50.42 Chronic combined systolic (congestive) and diastolic (congestive) heart failure (principal)
CPT/HCPCS: 36415; 80048

== ENCOUNTER 2024-05-14 11:10 | Inpatient (IN) | payer MEDICARE, SELFPAY ==
[2024-05-14] VITALS (59 sets, daily range): BP systolic 85–184; BP diastolic 52–143; PULSE 83–116; RESP 16; TEMP 36.2–36.6; O2SAT 77–100; BMI 25.0; BMI 26.7
--- OUTSIDE RECORDS SUMMARY | 2024-05-14 11:22 | XMS_ITS | CCD ---
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 He is now on Toprol XL 50mg instead of Lopresser 75mg bid. Congestive Heart Failure [127] - He was admitted to [facility] last month for CHF. Normal [facility] GLUCOSE, BLOOD (POC)on 04-30 Glucose [Mass/Vol] 95 mg/dL 74 - 99 mg/dL [facility] Comment on above: Location:[facility], [address] [place] [address] , [place], [place], [address] The Accu-Chek Inform II glucose meter has [...] blood gas instrument) in the above situations. [facility] NM PET/CT SKULL-THIGH SUBQon 04-30-2024 NM [...] * Uptake Time: 53 minutes * Radiopharmaceutical: L98-Ahqzteagnnhecwnqbv (FDG) COMPARISON: No previous FDG PET/CT available [...] any questions regarding this interpretation, please call [phone]. If you are unable to reach us at the number above, please feel free to contact [facility] eRadiology at [phone]. [id number] Normal [facility] 04-25-2024 [facility] Telephone (RADTSA) KHADAR DAWN ([id number]) 1940 M Date Time Provider Department 04/25/24 [...] patient on Sunday when he is in [place]. Shazia Rooney 04/25/2024 9:44 AM Signed First [...] minutes ago (3:59 PM) Send report to [facility]. I think he will be starting systemic [...] lung (HCC) [C34.90] Order(s):NM PET/CT SKULL-THIGH SUBSEQUENT [1504301] Order #: [id number] FUTURE Prescriptions as of 05/05/2024 - amLODIPine [...] Encounter Status:Closed by Yanelis BRADSHAW on 04/25/24 [facility] 04-23-2024 CNOV Office Visit (RADTSA ) HIROKHADAR LEON ([id number]) 1940 M Date Time Provider Department 04/23/24 8:30 AM Yanelis BRADSHAW During your visit today, we recorded the following information about you: Yanelis Bradshaw MD 04/23/2024 9:36 AM Signed sim Referring Provider: Yanelis BRADSHAW [[id number]] Allergies As of Date: 04/23/2024 (No Known [...] Encounter Status:Closed by Yanelis BRADSHAW on 04/23/24 [facility] Office Visit (RADTSA ) KHADAR DAWN ([id number]) 1940 M Date Time Provider Department 04/23/24 8:00 AM Yanelis BRADSHAW RADLESAA During your visit today, we recorded the following information about you: Referring Provider: Yanelis BRADSHAW [[id number]] Allergies As of Date: 04/23/2024 (No Known Allergies) Date Reviewed: 04/16/2024 Reviewed by: Edyta Gilliland, AGGIE - Fully Assessed Reason for Visit: Simulation Request Form [6346] Primary Visit Diagnosis:Malignant neoplasm of lung, unspecified laterality, unspecified part of lung (HCC) [C34.90] Order(s):RADIATION TREATMENT PER RADIATION ONCOLOGIST PLAN [8280191] Order #: [id number]: 1 PT ED CANCER [8728763] Order #: [id number]: 1 CT SIM PLANNING RADIATION ONCOLOGY [0582518] Order #: [id number] Prescriptions as of 04/23/2024 - amLODIPine (NORVASC) [...] Encounter Status:Closed by Yanelis BRADSHAW on 04/23/24 [facility] [place] 04-23-2024 [facility] Telephone (RADTSA) HIROKHADAR LEON ([id number]) 1940 M Date Time Provider Department 04/23/24 [...] RN - Fully Assessed Reason for Visit: 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 Spoke to Kristi to arrange weekly pacemaker checks. 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 Patient is there for thoracentesis and the radiologist is not seeing any fluid. I let her know his last XR chest was done at [facility], and the one before that was at [place]. She will call there for images. She [...] Encounter Status:Closed by KRYSTLE FAYE on 04/23/24 [facility] US guide or thoracentesison 04-22-2024 US guide or thoracentesis [facility] Main [address] [address] Ultrasound Report Signed Patient: Khadar Dawn MR#: [id number] : 1940 Acct:[id number] Age/Sex: 84 / M ADM Date: 04/22/24 Loc: Room: Type: [facility] Attending Dr: Comfort Bradshaw MD Ordering Provider: Yanelis Bradshaw MD Date of Service: 04/22/24 US/US guide or thoracentesis: THORA Copies to: Yanelis Bradshaw MD ULTRASOUND-GUIDED THORACENTESIS INDICATION: REPORTED EFFUSION COMPARISON: NONE US/US guide or thoracentesis FINDINGS/IMPRESSION: ULTRASOUND LEFT CHEST WALL DEMONSTRATE NO FLUID COLLECTION. PROCEDURE NOT PERFORMED. Impression dictated by: Hal Mojica M.D.04/22/2024 2:57 PM Dictation Location: [place] [address] Tech: Javier Vidal Transcribed By: QING 04/22/241456 Dictated By: Hal Mojica MD 04/22/241455 Signed By: 04/22/24 145 Normal [facility] [place] 04-21-2024 [facility] Telephone (NCCAP) KHADAR DAWN ([id number]) 1940 M Date Time Provider Department 04/21/24 Yanelis BRADSHAW During your visit today, we recorded the following information about you: Romi Faust 04/21/2024 8:35 AM Signed Erich from Dr. Rodriguez's office called asking for past progress notes for the patient. He stated that the patient was referred and they have not received any information. Please fax records to [phone]. Krystle Faye 04/21/2024 3:36 PM Signed Consult [...] Encounter Status:Closed by KRYSTLE FAYE on 04/21/24 [facility] CNOVon 04-16-2024 CNOV Office Visit (RADTSA ) KHADAR DAWN ([id number]) 1940 M Date Time Provider Department 04/16/24 [...] Laterality D (more content not included)... Normal [facility]20[facility] KHADAR DAWN ([id number]) 1940 M Date Time Provider Department 04/16/24 Yanelis BRADSHAW During your visit today, we recorded the following information about you: Rojelio Guajardo RN 04/16/2024 2:37 PM Signed PSS/RT: Please schedule [facility] IR for thoracentis return for sim after treating lung no contrast 15 treatments, no concurrent chemo Need presim consent Nurse ed today Consult with Dr. Ponce to establish care with local cloth trimmer hand. pt does not want to travel to current cloth trimmer hand in [place]. Thanks AGGIE Jimenez Jodi 04/17/2024 9:08 AM Signed Waiting on orders to be signed to fax to IR [facility] Rojelio Guajardo RN 04/18/2024 9:54 AM Signed Order is signed. Please arrange thoracentesis appt lizette. Thanks AGGIE Jimenez Trisha 04/18/2024 11:26 AM Signed Everything is faxed to [facility] for Shazia Perez and I will check with [facility] daily to see when scheduled I called [...] an appointment. All info was faxed to [phone] Will follow up to see when appt is scheduled Shazia Britton 04/18/2024 3:08 PM Signed Patient scheduled at [facility] on 04/22 at 9am. Arrive at 8am [...] and records to DR. Ponce office at [phone]. He is having a thoracentesis on 04/22. She would like records faxed and images pushed of those as well. Thanks so much Shazia Rooney 04/21/2024 2:25 PM Signed Referral was sent to [facility] and [facility] offices. Confirmed patient to be scheduled in [place] with Dr. Ponce on 04/23 at 3pm. [...] Order(s):BODY FLUID CELL COUNT [SQCCBF] Order #: [id number] FUTURE GLUCOSE, BODY FLUID [SQBFGLUC] Order #: [id number] FUTURE LACTATE DEHYDROGENASE, BODY FLUID [SQBFLDH] Order #: [id number] FUTURE PH BODY FLUID [SQFLPH] Order #: [id number] FUTURE AFB CULTURE AND STAIN [SQAFC] Order #: [id number] FUTURE BACTERIAL CULTURE AND GRAM STAIN, STERILE BODY FLUID [SQBFCUL] Order #: [id number] FUTURE CYTOLOGY NON-STUDIO SET UP WORKER [BGT8457] Order #: [id number] FUTURE Prescriptions as of 04/28/2024 - amLODIPine [...] mg by (more content not included)... Normal [facility] 04-15-2024 [facility] ([facility]) KHADAR DAWN ([id number]) 1940 M Date Time Provider Department 04/15/24 Yanelis BRADSHAW [facility] During your visit today, we recorded the following information about you: oRmi Faust 04/15/2024 8:[address] Lane's office called requesting progress notes from the past 12 months. Please fax to [phone]. They are requesting this today as he [...] Status:Closed by KRYSTLE FAYE on 04/21/24 Normal [facility] HISTOLOGY - TISSUE EXAMon LAB AP CASE REPORT Normal [facility] Comment on above: Result Comment: Surg ical Pathology Case: [id number] Authorizing Provider: Cara Perez MD Collected: 04/09/2024 1150 Ordering Location: [facility] Main Operating Room Received: 04/09/2024 1256 Pathologist: Brit Grimes MD Specimen: Lung, Left Upper Lobe, OUMAR MASS BX Performed By: #### L [id number] ####[facility] ([facility])[address] [place] [address] LAB AP CLINICAL INFORMATION Order Diagnoses [facility] Comment on above: Result Comment: R91. 8 - Lung mass [ICD-10-CM] J43.2 - Centrilobular emphysema (CMS/HCC) [ICD-10-CM] J96.11 - Chronic hypoxic respiratory failure (CMS/HCC) [ICD-10-CM] Performed By: #### L [id number] ####[facility] ([facility])[address] [place] [address] LAB AP DIAGNOSIS COMMENT [facility] Comment on above: Result Comment: Ther e is scant tumor in the tissue block, insufficient for further testing. Performed By: #### L [id number] ####[facility] ([facility])[address] [place] [address] LAB AP GROSS DESCRIPTION [facility] Comment on above: Result Comment: A. L rudolph, Left Upper Lobe. Part A is received in formalin labeled Khadar Vollmar and OUMAR mass biopsy . It consists of multiple platt-red, irregular pieces of soft tissue measuring 1.0 x 0.5 x 0.2 cm in aggregate. The specimen is submitted in toto in 1 cassette. Lilliam Hitchcock, Pathologists' Housing Development Specialist student Herb Reynoso, Pathologists' Housing Development Specialist Performed By: #### L [id number] ####[facility] ([facility])[address] [place] [address] LAB AP MICROSCOPIC DESCRIPTION Microscopic examination performed. [facility] Comment on above: Performed By: #### L [id number] ####[facility] ([facility])[address] [place] [address] LAB AP REPORT FINAL DIAGNOSIS NARRATIVE [facility] Comment on above: Result Comment: A. L rudolph, left upper lobe, biopsy: - Sclerotic lung and blood clot with rare strips of malignant glandular cells. - See concurrent cytology report, [id number]. Performed By: #### L [id number] ####[facility] ([facility])[address] [place] [address] NON-STUDIO SET UP WORKER CYTOLOGY - CELLULAR EXAMon 04-09-2024 LAB AP CASE REPORT Normal [facility] Comment on above: Result Comment: Non- gynecologic Cytology Case: [id number] Authorizing Provider: Cara Perez MD Collected: 04/09/2024 1139 Ordering Location: [facility] Main Operating Room Received: 04/09/2024 1215 Pathologist: Aaron Shea MD Specimens: A) - Lung, Left Upper Lobe, OUAMR MASS B) - Bronchial washing, left upper lobe, OUMAR BAL C) - Lymph Node Station 7, LN STATION 7 FNA Performed By: #### L [id number] #### [facility] ([facility]) [address] [place] [address] LAB AP CLINICAL INFORMATION PET-avid left apical lung mass (3.4 cm) with multiple, smaller left upper lobe lung nodules, mediastinal adenopathy, former smoker [facility] Comment on above: Performed By: #### L [id number] #### [facility] ([facility]) [address] [place] [address] LAB AP DIAGNOSIS COMMENT [facility] Comment on above: Result Comment: See also concurrent surgical case, [id number]. There is scant tumor present in the cell block of part A. Performed By: #### L [id number] #### [facility] ([facility]) [address] [place] [address] LAB AP GROSS DESCRIPTION [facility] Comment on above: Result Comment: A. 4 air-dried slides, 3 alcohol-fixed slides, 30 mL CytoLyt with hazy red fluid and clots B. 17 mL cloudy, red fluid with clots C. 30 mL CytoLyt with clear, pale pink fluid with red/white flecks Performed By: #### L [id number] #### [facility] ([facility]) [address] [place] [address] LAB AP INTRAOPERATIVE CONSULTATION [facility] Comment on above: Result Comment: A. [...] Performed By: #### L [id number] #### [facility] ([facility]) [address] [place] [address] LAB AP MICROSCOPIC DESCRIPTION [facility] Comment on above: Result Comment: A. S [...] Performed By: #### L [id number] #### [facility] ([facility]) [address] [place] [address] LAB AP REPORT FINAL DIAGNOSIS NARRATIVE Normal [facility] Comment on above: Result Comment: A. 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 Lung, left upper lobe, bronchial washing: - Adenocarcinoma C. Lymph Node, Station 7, EBUS-guided fine needle aspiration: - Negative for metastatic malignancy. - Cellular evidence of a lymph node. - Scant lymphoid component. Performed By: #### L [id number] #### [facility] ([facility]) [address] [place] [address] NURSNOTEon 04-09-2024 NURSNOTE Report to Emi MARCIAL Normal [facility] POCT GLUCOSE METER UNSOLICIT ED RESULTSon 04-09-2024 Glucose [Mass/Vol] 88 mg/dL Normal 70-105 Univer sity [facility] Comment on above: Order Comment: Waive d Testing in the ED is performed under the ED CLIA certificate #[id number]. Result Comment: ltol les Performed By: #### L [id number] #### [facility] ([facility]) [address] [address] Prep for Procedureon 025 Prep for Procedure [id number] Khadar Dawn 1940 M Date Provider Department Center 04/09/2024 [facility] GONZALES [facility] Family History Problem Relation Age of Onset Other Father Coronary artery disease Brother Other Brother Family Status - Relation Status Age at Father Brother [facility] Abstracton 03-31-2024 Abstract [id number] Khadar Dawn 1940 M Date Provider Department Center 03/31/2024 CARA GONZALES [facility] ONC DCC Family History Problem Relation Age of Onset Other Father Coronary artery disease Brother Other Brother Family Status - Relation Status Age at Father Brother [facility] 36on 03-25-2024 36 Per patient's , Dr. Perez's office is requesting cardiac clearance prior to lung biopsy. I'm assuming they'd like him to hold Xarelto but it doesn't say in Dr. Perez's office note. You saw him in clinic 2 weeks ago. Please advise. Thanks. [facility] 29on 03-20-2024 29 Addended by: CARA PEREZ on: 03/27/2024 01:27 PM Modules accepted: Orders [facility] HPon 03-20-2024 HP --- Attestation signed by Cara Perez MD at 03/21/2024 11:55 AM I have seen and examined the patient. I reviewed the resident/fellow note and I agree with the findings and plan. Cara Perez MD Interventional Pulmonary Medicine Pulmonary and Critical Care Medicine [facility] Visit Note Patient: Khadar Dawn Age: 84 y.o. : 1940 Account No.: [id number] Referring physician: Dr. Delacruz Chief complaint: Lung [...] CARDIOVASCULAR: Re (more content not included)... Normal [facility] Office Visiton 03-20-2024 Follow-up visit [id number] Khadar Dawn 1940 [facility] Provider Department Center 03/20/2024 383-CARA PEREZ [facility] ONC DCC Family History Problem Relation Age of Onset Other Father Coronary artery disease Brother Other Brother Family Status - Relation Status Age at Father Brother Level of Service:29163 NC OFFICE/OUTPATIENT NEW MODERATE MDM 45 MINUTES () Reason for Visit and Comments: New Patient [632] - Lung mass; abnormal PET SCAN, needs biopsy Normal [facility] 36on 03-10-2024 36 Regarding lab result s from 02/25/2024: MD Kristi Horvath MA Good lipids and BMP. Continue current medications. Recheck lipids and AST ALT in 6 months Patient has follow up today with Dr. Dixon. Normal [facility] Office Visiton 03-10-2024 Follow-up visit [id number] Khadar Dawn 1940 [facility] Provider Department Center 03/10/2024 [id number] DIXON [facility] Family History Problem Relation Age of Onset Other Father Coronary artery disease Brother Other Brother Family Status - Relation Status Age at Father Brother Level of Service:38407 NC OFFICE/OUTPATIENT NEW MODERATE MDM 45 MINUTES Reason for Visit and Comments: Wound Check [794184] - S/p PPM implant on 03/03/[address] Rivas. Says he was not given RX for antibiotic. Normal [facility] CBCon 12-30-2024 Erythrocyte distribution width (RBC) [Ratio] 17.1 % High 11.5-15.0 [facility] Comment on above: Performed By: #### L [id number] ####[facility] ([facility])[address] [place] [address] ERYTHROCYTE MEAN CORPUSCULAR HEMOGLOBIN CONCENTRATION (G/DL) BY AUTOMATED 31.8 g/dL Low 32.0-35.0 [facility] Comment on above: Performed By: #### L [id number] ####[facility] ([facility])[address] [place] [address] Hematocrit (Bld) [Volume fraction] 47.8 % Normal 39.0-55.0 [facility] Comment on above: Performed By: #### L [id number] ####[facility] ([facility])[address] [place] [address] Hemoglobin (Bld) [Mass/Vol] 15.2 g/dL Normal 13.0-17.0 [facility] Comment on above: Performed By: #### L [id number] ####[facility] ([facility])[address] [place] [address] MCH (RBC) [Entitic mass] 29.5 pg Normal 27.0-33.0 [facility] Comment on above: Performed By: #### L [id number] ####[facility] ([facility])[address] [place] [address] MCV (RBC) [Entitic vol] 92.6 fL Normal 82.0-98.0 [facility] Comment on above: Performed By: #### L [id number] ####[facility] ([facility])[address] [place] [address] PLATELETS (10*3/UL) IN BLOOD AUTOMATED COUNT 257 10*3/uL Normal 150-400 [facility] Comment on above: Performed By: #### L [id number] ####[facility] ([facility])[address] [place] [address] RBC (Bld) [#/Vol] 5.16 10*6/uL Normal 4.20-5.70 [facility] Comment on above: Performed By: #### L [id number] ####[facility] ([place])[address] [place] [address] WBC (Bld) [#/Vol] 13.41 10*3/uL High 4.00-10.60 [facility] Comment on above: Performed By: #### L [id number] ####[facility] ([facility])[address] [place] [address] HPon 03-03-2024 [facility] Cardiology [facility] HPI Khadar Dawn is a 84 y.o. year old male patient being seen for Hospital Follow-up (He was admitted to [facility] last month for CHF. Say he's [...] me. Since then was seen by Dr iDxon in clinic and states that he is [...] On Coreg, sylvie (more content not included)... [facility] NURSNOTEon 03-03-2024 NURSNOTE RN educated pt on [...] off of unit with all of belongings. [facility] NURSNOTE CHG wipes and betadi ne nasal swabs completed. [facility] 36on 02-25-2024 36 Patient was informed of message from Dr Rivas. Patient was not pleased with having a PPM put in and will need to think about that. Catherine BRADLEY [facility] [address] 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 Order placed. Waiting for patient to call me back so I can inform him. He had lipids drawn this morning, and I was able to add on BMP. [facility] Orders Onlyon 02-25-2024 Orders Only [id number] Khadar Dawn Berry 1940 M Date Provider Department Center 02/25/2024 KRISTI CORNELL Family History Problem Relation Age of Onset Other Father Coronary artery disease Brother Other Brother Family Status - Relation Status Age at Father Brother [facility] Documentationon 02-22-2024 Documentation [id number] KavyashirinKhadar Smart 1940 M Date Provider Department Center 02/22/2024 CHRIS ARTHUR [facility] Family History Problem Relation Age of Onset Other Father Coronary artery disease Brother Other Brother Family Status - Relation Status Age at Father Brother Normal [facility] Office Visiton 02-08-2024 Follow-up visit [id number] LópezKhadar Smart 1940 M Date Provider Department Center 02/08/2024 CHRIS ARTHUR Family History Problem Relation Age of Onset Other Father Coronary artery disease Brother Other Brother Family Status - Relation Status Age at Father Brother Level of Service:97703 NC OFFICE/OUTPATIENT ESTABLISHED MOD MDM 30 MIN Reason for Visit and Comments: Hospital Follow-up [832] - He was admitted to [facility] last month for CHF. Say he's feeling much better s/p discharge. Coronary Artery Disease [187] - Denies chest pain. Congestive Heart Failure [127] - Denies SOB, and LE edema resolves by morning. Using O2 at nighttime. Atrial Fibrillation [80] - Denies palpitations, lightheadedness/syncope , and bleeding on Xarelto. Hypertension [950759] Hyperlipidemia [182] Normal [facility] Optical coherence tomography study reporton 11-27-2023 [facility] Radiology Study observation (narrative) [facility] Perimetry studyon 11-27-2023 [facility] Radiology Study observation (narrative) [facility] Urology Office/Clinic Noteon 10-19-2023 Urology Office/Clinic Note Urology Office/Clinic Note Chief Complaint 1 year follow up HPI Staff 1 yr w/ PSA. Dx: BPH with obstruction, hx of prostate cancer *Brachytherapy 2014*, nocturia, renal cyst, gross hematuria. *No urological meds NEG FISH/cytol 10/13/22. S/p Cysto 10/17/22. TAYLA done 10/19/22 at [facility] - results given over the phone. [...] hematuria (R31.0: Gross hematuria) Pt presented to [facility] ER 09/23/22 with gross hematuria. Only for one day. Neg urine culture. S/p cysto 10/17/22 ~neg for b.t. or lesions. Typical telangiectatic radiation changes. FISH/cytol neg. Renal US 10/19/22 [facility] - Small bladder diverticulum. UA today shows trace-intact blood. Denies recurrence of gross hematuria. -Call if gross blood recurs 4. Renal cyst (N28.1: Cyst of kidney, acquired) CT AP w/o con 09/23/22 - several adjacent cysts inferior of the Rt kidney measuring up to 8.5 cm. Renal US 10/19/22 [facility] - bilateral renal cysts favoring benign etiology, also seen on prior MRI and CT studies. -No follow up required Follow-up With When Contact Information ALFIE WISE, Yousuf Barroso, [place] [id number]- Additional Instructions: 1 year w/ PSA Patient Education Benign Prostatic Hyperplasia Linaet Torres, personally scribed for Dr. Judge on [...] Oral Allergie (more content not included)... Normal [facility] Comment on above: Result Comment: Elec tronically Signed By: Yousuf JUDGE MD\.br\Date and Time Signed: 10/19/23 11:20 EDT\.br\Electronically Co-Signed By: Lianet Massey.br\Date and Time Co-Signed: 10/19/23 11:19 EDT Office Visiton 09-25-2023 Follow-up visit [id number] Khadar Dawn 1940 M Date Provider Department Center 09/25/2023 JACKY ESQUIVEL [facility] Family History Problem Relation Age of Onset Other Father Coronary artery disease Brother Other Brother Family Status - Relation Status Age at Father Brother Level of Service:12110 NC OFFICE/OUTPATIENT ESTABLISHED LOW MDM 20 MIN Reason for Visit and Comments: Coronary Artery Disease [187] Atrial Fibrillation [80] Normal [facility] CBC AUTO DIFFon 04-20-2022 BASO # 0.0 103/ul Normal 0.0-0.1 [facility] Comment on above: Performed By: #### C BC #### [facility] [address] [address] [address] Nic Marie Basophils/100 WBC (Bld) 0.5 % Normal 0.2-2.0 [facility] Comment on above: Performed By: #### C BC #### [facility] [address] [place], [place] [address] Dr. Nic Marie EO # 0.7 103/ul Normal 0.0-0.7 [facility] Comment on above: Performed By: #### C BC #### [facility] [address] [place] [address] Dr. Nic Marie Eosinophils/100 WBC (Bld) 8.8 % Critically high 0.9-7.0 [facility] Comment on above: Performed By: #### C BC #### [facility] [address] [place] [address] Dr. Nic Marie Erythrocyte distribution width (RBC) [Ratio] 18.0 % Critically high 11.0-15.0 [facility] Comment on above: Performed By: #### C BC #### [facility] [address] [place] [address] Dr. Nic Marie Hematocrit (Bld) [Volume fraction] 44.3 % Normal 42.0-54.0 [facility] Comment on above: Performed By: #### C BC #### [facility] [address] [place] [address] Dr. Nic Marie Hemoglobin (Bld) [Mass/Vol] 13.6 g/dL Critically low 14.0-18.0 [facility] Comment on above: Performed By: #### C BC #### [facility] [address] [place] [address] Dr. Nic Marie IG # 0.05 10e3/ul Critically high 0.00-0.03 [facility] Comment on above: Performed By: #### C BC #### [facility] [address] [place] [address] Dr. Nic Marie IG % 0.6 % Critically high 0.0-0.5 [facility] Comment on above: Performed By: #### C BC #### [facility] [address] [place] [address] Dr. Nic Marie LYMPH # 0.8 103/ul Critically low 1.2-3.8 [facility] Comment on above: Performed By: #### C BC #### [facility] [address] [place] [address] Dr. Nic Marie Lymphocytes/100 WBC (Bld) 10.7 % Critically low 20.5-60.0 [facility] Comment on above: Performed By: #### C BC #### [facility] [address] [place] [address] Dr. Nic Marie MANUAL DIFF REQ NO Normal [facility] Comment on above: Performed By: #### C BC #### [facility] [address] [place] [address] Dr. Nic Marie MCH (RBC) [Entitic mass] 24.9 pg Critically low 25.9-34.0 [facility] Comment on above: Performed By: #### C BC #### [facility] [address] [place] [address] Dr. Nic Marie MCHC (RBC) [Mass/Vol] 30.7 g/dL Normal 29.9-35.2 [facility] Comment on above: Performed By: #### C BC #### [facility] [address] [place] [address] Dr. Nic Marie MCV (RBC) [Entitic vol] 81.0 fL Normal 80.0-94.0 [facility] Comment on above: Performed By: #### C BC #### [facility] [address] [place] [address] Dr. Nic Marie MONO # 0.9 103/ul Critically high 0.3-0.8 [facility] Comment on above: Performed By: #### C BC #### [facility] [address] [place] [address] Dr. Nic Marie Monocytes/100 WBC (Bld) 11.1 % Normal 1.7-12.0 [facility] Comment on above: Performed By: #### C BC #### [facility] [address] [place] [address] Dr. Nic Marie NEUT # 5.3 103/ul Normal 1.4-6.5 [facility] Comment on above: Performed By: #### C BC #### [facility] [address] [place] [address] Dr. Nic Marie Neutrophils/100 WBC (Bld) 68.3 % Normal 43.0-75.0 [facility] Comment on above: Performed By: #### C BC #### [facility] [address] [address] [address] Nic Marie Platelet mean volume (Bld) [Entitic vol] 10.0 fL Normal 9.5-13.5 [facility] Comment on above: Performed By: #### C BC #### [facility] [address] [place] [address] Dr. Nic Marie PLT 203 103/ul Normal 150-450 [facility] Comment on above: Performed By: #### C BC #### [facility] [address] [place] [address] Dr. Nic Marie RBC 5.47 106/ul Normal 4.70-6.10 [facility] Comment on above: Performed By: #### C BC #### [facility] [address] [place] [address] Dr. Nic Marie WBC 7.8 103/ul Normal 4.0-11.0 [facility] Comment on above: Performed By: #### C BC #### [facility] [address] [place] [address] Dr. Nic Marie LIPID PROFILEon 04-20-2022 CHOL-HDL RATIO NORM SEE BELOW Normal [facility] Comment on above: Result Comment: 3.3 - 4.4 LOW RISK 4.4 - 7.1 AVERAGE RISK 7.1 - 11.0 MODERATE RISK >11.0 HIGH RISK Performed By: #### C MP, LIPID #### [facility] [address] [place] [address] Dr. Nic Marie Cholesterol [Mass/Vol] 108 mg/dL Normal <=200 [facility] Comment on above: Performed By: #### C MP, LIPID #### [facility] [address] [place] [address] Dr. Nic Marie Cholesterol in HDL [Mass/Vol] 36 mg/dL Critically low 40-60 [facility] Comment on above: Performed By: #### C MP, LIPID #### [facility] [address] [place] [address] Dr. Nic Marie Cholesterol in LDL [Mass/Vol] 54.2 mg/dL Normal [facility] Comment on above: Performed By: #### C MP, LIPID #### [facility] [address] [address] [address] Nic Marie Cholesterol.total/C holesterol in HDL [Mass ratio] 3.0 {ratio} Normal [facility] Comment on above: Performed By: #### C MP, LIPID #### [facility] [address] [address] [address] Nic Marie HDL NORMAL > or = 60 mg/dl - LO W CARDIOVASCULAR RISK <40 mg/dl - HIGH CARDIOVASCULAR RISK Normal [facility] Comment on above: Performed By: #### C MP, LIPID #### [facility] [address] [address] [address] Nic Marie LDL CALC NORMAL SEE BELOW Normal [facility] Comment on above: Result Comment: <100 mg/dl OPTIMAL 100 - 129 mg/dl NEAR OR ABOVE OPTIMAL 130 - 159 mg/dl BORDERLINE HIGH 160 - 189 mg/dl HIGH >190 mg/dl VERY HIGH Performed By: #### C MP, LIPID #### [facility] [address] [address] [address] Nic Marie Triglyceride [Mass/Vol] 89 mg/dL Normal <=150 [facility] Comment on above: Performed By: #### C MP, LIPID #### [facility] [address] [address] [address] Nic Marie VLDL CALC 17.8 mg/dL Normal [facility] Comment on above: Performed By: #### C MP, LIPID #### [facility] [address] [address] [address] Nic Marie PROF 14(COMP METB)on 023 Albumin [Mass/Vol] 3.7 g/dL Normal 3.4-5.0 [facility] Comment on above: Performed By: #### C MP, LIPID #### [facility] [address] [address] [address] Nic Marie Albumin/Globulin [Mass ratio] 1.0 {ratio} Normal [facility] Comment on above: Performed By: #### C MP, LIPID #### [facility] [address] [address] [address] Nic Marie ALP [Catalytic activity/Vol] 59 U/L Normal 46-116 [facility] Comment on above: Performed By: #### C MP, LIPID #### [facility] [address] [address] [address] Nic Marie ALT [Catalytic activity/Vol] 28 U/L Normal 16-63 [facility] Comment on above: Performed By: #### C MP, LIPID #### [facility] [address] [address] [address] Nic Marie Anion gap [Moles/Vol] 12.1 mmol/L Normal [facility] Comment on above: Performed By: #### C MP, LIPID #### [facility] [address] [place] [address] Dr. Nic Marie AST [Catalytic activity/Vol] 18 U/L Normal 15-37 [facility] Comment on above: Performed By: #### C MP, LIPID #### [facility] [address] [address] [address] Nic Marie Bilirubin [Mass/Vol] 0.6 mg/dL Normal 0.2-1.0 [facility] Comment on above: Performed By: #### C MP, LIPID #### [facility] [address] [address] [address] Nic Marie Calcium [Mass/Vol] 9.6 mg/dL Normal 8.5-10.1 [facility] Comment on above: Performed By: #### C MP, LIPID #### [facility] [address] [address] [address] Nic Marie Chloride [Moles/Vol] 104 mmol/L Normal 98-107 [facility] Comment on above: Performed By: #### C MP, LIPID #### [facility] [address] [address] [address] Nic Marie CO2 [Moles/Vol] 30.3 mmol/L Normal 21.0-32.0 [facility] Comment on above: Performed By: #### C MP, LIPID #### [facility] [address] [address] [address] Nic Marie Creatinine [Mass/Vol] 0.99 mg/dL Normal 0.70-1.30 [facility] Comment on above: Performed By: #### C MP, LIPID #### [facility] [address] [place] [address] Dr. Nic Marie EGFR-AF ZIMBABWEAN >60 Normal >=60 [facility] Comment on above: Performed By: #### C MP, LIPID #### [facility] [address] [address] [address] Nic Marie EGFR-NON AF ZIMBABWEAN >60 Normal >=60 [facility] Comment on above: Performed By: #### C MP, LIPID #### [facility] [address] [place] [address] Dr. Nic Marie Globulin (S) [Mass/Vol] 3.6 g/dL Normal [facility] Comment on above: Performed By: #### C MP, LIPID #### [facility] [address] [address] [address] Nic Marie Glucose [Mass/Vol] 114 mg/dL Critically high 74-106 [facility] Comment on above: Performed By: #### C MP, LIPID #### [facility] [address] [place] [address] Dr. Nic Marie Potassium [Moles/Vol] 4.4 mmol/L Normal 3.5-5.1 [facility] Comment on above: Performed By: #### C MP, LIPID #### [facility] [address] [address] [address] Nic Marie Protein [Mass/Vol] 7.3 g/dL Normal 6.4-8.2 [facility] Comment on above: Performed By: #### C MP, LIPID #### [facility] [address] [address] [address] Nic Marie Sodium [Moles/Vol] 142 mmol/L Normal 136-145 [facility] Comment on above: Performed By: #### C MP, LIPID #### [facility] [address] [address] [address] Nic Marie Urea nitrogen [Mass/Vol] 23.0 mg/dL Critically high 7.0-18.0 [facility] Comment on above: Performed By: #### C MP, LIPID #### [facility] [address] [address] [address] Nic Marie Urea nitrogen/Creatinine [Mass ratio] 23.2 mg/mg Normal [facility] Comment on above: Performed By: #### C MP, LIPID #### [facility] [address] [address] [address] Nic Marie PROF CHEM 8 (BAS METB)on Anion gap [Moles/Vol] 13.0 mmol/L Normal [facility] Comment on above: Performed By: #### P SAD #### [facility] [address] [place] [address] Dr. Nic Marie Calcium [Mass/Vol] 9.0 mg/dL Normal 8.5-10.1 [facility] Comment on above: Performed By: #### P SAD #### [facility] [address] [place] [address] Dr. Nic Marie Chloride [Moles/Vol] 100 mmol/L Normal 98-107 [facility] Comment on above: Performed By: #### P SAD #### [facility] [address] [place] [address] Dr. Nic Marie CO2 [Moles/Vol] 27.2 mmol/L Normal 21.0-32.0 [facility] Comment on above: Performed By: #### P SAD #### [facility] [address] [place] [address] Dr. Nic Marie Creatinine [Mass/Vol] 1.18 mg/dL Normal 0.70-1.30 [facility] Comment on above: Performed By: #### P SAD #### [facility] [address] [place] [address] Dr. Nic Marie EGFR-AF ZIMBABWEAN >60 Normal >=60 [facility] Comment on above: Performed By: #### P SAD #### [facility] [address] [address] [address] Nic Marie EGFR-NON AF ZIMBABWEAN =60 Normal >=60 [facility] Comment on above: Performed By: #### P SAD #### [facility] [address] [address] [address] Nic Marie Glucose [Mass/Vol] 238 mg/dL Critically high 74-106 [facility] Comment on above: Performed By: #### P SAD #### [facility] [address] [address] [address] Nic Marie Potassium [Moles/Vol] 4.2 mmol/L Normal 3.5-5.1 [facility] Comment on above: Performed By: #### P SAD #### [facility] [address] [place] [address] Dr. Nic Marie Sodium [Moles/Vol] 136 mmol/L Normal 136-145 [facility] Comment on above: Performed By: #### P SAD #### [facility] [address] [place] [address] Dr. Nic Marie Urea nitrogen [Mass/Vol] 30.0 mg/dL Critically high 7.0-18.0 [facility] Comment on above: Performed By: #### P SAD #### [facility] [address] [place] [address] Dr. Nic Marie Urea nitrogen/Creatinine [Mass ratio] 25.4 mg/mg Normal [facility] Comment on above: Performed By: #### P SAD #### [facility] [address] [place] [address] Dr. Nic Marie CBC W MANUAL DIFFon 05-05-19 22 ANISOCYTOSIS SLIGHT Normal [facility] Comment on above: Performed By: #### C BCMAN #### [facility] [address] [place] [address] Dr. Nic Marie ATYPICAL LYMPH # Normal [facility] Comment on above: Performed By: #### C DAMIAN #### [facility] [address] [place] [address] Dr. Nic Marie ATYPICAL LYMPH % Normal [facility] Comment on above: Performed By: #### C BCMAN #### [facility] [address] [place] [address] Dr. Nic Marie BAND # Normal 0.0-0.3 [facility] Comment on above: Performed By: #### C BCMAN #### [facility] [address] [place] [address] Dr. Nic Marie BAND % Normal 0-5 [facility] Comment on above: Performed By: #### C BCMAN #### [facility] [address] [place] [address] Dr. Nic Marie BASOM # 0.15 103/ul Critically high 0.00-0.10 [facility] Comment on above: Performed By: #### C BCMAN #### [facility] [address] [place] [address] Dr. Nic Marie BASOM % 1.0 % Normal 0.2-2.0 [facility] Comment on above: Performed By: #### C BCMAN #### [facility] [address] [place] [address] Dr. Nic Marie BLAST # Normal [facility] Comment on above: Performed By: #### C BCMAN #### [facility] [address] [place] [address] Dr. Nic Marie BLAST % Normal [facility] Comment on above: Performed By: #### C BCSALINA #### [facility] [address] [place] [address] Dr. Nic Marie CORRECTED WBC Normal 4.0-11.0 [facility] Comment on above: Performed By: #### C BCMAN #### [facility] [address] [place] [address] Dr. Nic Marie EOS # 0.73 103/ul Critically high 0.00-0.70 [facility] Comment on above: Performed By: #### C BCMAN #### [facility] [address] [place] [address] Dr. Nic Marie EOS% 5.0 % Normal 0.9-7.0 [facility] Comment on above: Performed By: #### C DAMIAN #### [facility] [address] [address] [address] Nic Marie HCT 38.1 % Critically low 42.0-54.0 [facility] Comment on above: Performed By: #### C DAMIAN #### [facility] [address] [address] [address] Nic Marie HGB 10.4 g/dl Critically low 14.0-18.0 [facility] Comment on above: Performed By: #### C DAMIAN #### [facility] [address] [address] [address] Nic Marie HYPOCHROMASIA SLIGHT Normal [facility] Comment on above: Performed By: #### C DAMIAN #### [facility] [address] [address] [address] Nic Marie LYMPHM # 0.58 103/ul Critically low 1.20-3.80 [facility] Comment on above: Performed By: #### C DAMIAN #### [facility] [address] [address] [address] Nic Marie LYMPHM% 4.0 % Critically low 20.5-60.0 [facility] Comment on above: Performed By: #### C DAMIAN #### [facility] [address] [address] [address] Nic Marie MCH 19.3 pg Critically low 25.9-34.0 [facility] Comment on above: Performed By: #### C DAMIAN #### [facility] [address] [address] [address] Nic Marie MCHC 27.3 g/dl Critically low 29.9-35.2 [facility] Comment on above: Performed By: #### C DAMIAN #### [facility] [address] [place] [address] Dr. Nic Marie MCV 70.6 fL Critically low 80.0-94.0 [facility] Comment on above: Performed By: #### C DAMIAN #### [facility] [address] [address] [address] Nic Marie METAMYELOCYTE # Normal [facility] Comment on above: Performed By: #### C DAMIAN #### [facility] [address] [place] [address] Dr. Nic Marie METAMYELOCYTE % Normal [facility] Comment on above: Performed By: #### C BCSALINA #### [facility] [address] [place] [address] Dr. Nic Marie MONOM# 0.58 103/ul Normal 0.30-0.80 [facility] Comment on above: Performed By: #### C DAMIAN #### [facility] [address] [place] [address] Dr. Nic Marie MONOM% 4.0 % Normal 1.7-12.0 [facility] Comment on above: Performed By: #### C DAMIAN #### [facility] [address] [place] [address] Dr. Nic Marie MPV 9.7 fL Normal 9.5-13.5 [facility] Comment on above: Performed By: #### C DAMIAN #### [facility] [address] [place] [address] Dr. Nic Marie MYELOCYTE # Normal [facility] Comment on above: Performed By: #### C DAMIAN #### [facility] [address] [place] [address] Dr. Nic Marie MYELOCYTE % Normal [facility] Comment on above: Performed By: #### C DAMIAN #### [facility] [address] [place] [address] Dr. Nic Marie NRBC Normal [facility] Comment on above: Performed By: #### C BCSALINA #### [facility] [address] [place] [address] Dr. Nic Marie PLT 347 103/ul Normal 150-450 [facility] Comment on above: Performed By: #### C DAMIAN #### [facility] [address] [place] [address] Dr. Nic Marie RBC 5.40 106/ul Normal 4.70-6.10 [facility] Comment on above: Performed By: #### C SHUMAN #### [facility] [address] [address] [address] Nic Marie RDW 22.2 % Critically high 11.0-15.0 [facility] Comment on above: Performed By: #### C DAMIAN #### [facility] [address] [address] [address] Nic Marie SEG # 12.56 103/ul Critically high 1.40-6.50 [facility] Comment on above: Performed By: #### C DAMIAN #### [facility] [address] [address] [address] Nic Marie SEG % 86.0 % Critically high 43.0-75.0 [facility] Comment on above: Performed By: #### C DAMIAN #### [facility] [address] [address] [address] Nic Marie WBC 14.6 103/ul Critically high 4.0-11.0 [facility] Comment on above: Performed By: #### C DAMIAN #### [facility] [address] [address] [address] Nic Marie GLYCOHEMOGLOBIN A1Con 2021 ADA RECOMMENDATION ADA THERAPEUTIC TARG ET 6.0 - 7.0 ACTION SUGGESTED > 7.0 Normal [facility] Comment on above: Performed By: #### A 1C #### [facility] [address] [address] [address] Nic Marie Glucose [Mass/Vol] 171 mg/dL Normal [facility] Comment on above: Performed By: #### A 1C #### [facility] [address] [address] [address] Nic Marie HbA1c (Bld) [Mass fraction] 7.6 % Critically high <=6.0 [facility] Comment on above: Performed By: #### A 1C #### [facility] [address] [address] [address] Nic Marie LIPID PROFILEon 05-04-2021 CHOL-HDL RATIO NORM SEE BELOW Normal [facility] Comment on above: Result Comment: 3.3 - 4.4 LOW RISK 4.4 - 7.1 AVERAGE RISK 7.1 - 11.0 MODERATE RISK >11.0 HIGH RISK Performed By: #### L IPID, TSH, MG, CMP #### [facility] [address] [address] [address] Nic Marie Cholesterol [Mass/Vol] 97 mg/dL Normal <=200 [facility] Comment on above: Performed By: #### L IPID, TSH, MG, CMP #### [facility] [address] [address] [address] Nic Marie Cholesterol in HDL [Mass/Vol] 34 mg/dL Normal [facility] Comment on above: Performed By: #### L IPID, TSH, MG, CMP #### [facility] [address] [address] [address] Nic Marie Cholesterol in LDL [Mass/Vol] 49.2 mg/dL Normal [facility] Comment on above: Performed By: #### L IPID, TSH, MG, CMP #### [facility] [address] [address] [address] Nic Marie Cholesterol.total/C holesterol in HDL [Mass ratio] 2.9 {ratio} Normal [facility] Comment on above: Performed By: #### L IPID, TSH, MG, CMP #### [facility] [address] [address] [address] Nic Marie HDL NORMAL > or = 60 mg/dl - LO W CARDIOVASCULAR RISK <40 mg/dl - HIGH CARDIOVASCULAR RISK Normal [facility] Comment on above: Performed By: #### L IPID, TSH, MG, CMP #### [facility] [address] [address] [address] Nic Marie LDL CALC NORMAL SEE BELOW Normal [facility] Comment on above: Result Comment: <100 mg/dl OPTIMAL 100 - 129 mg/dl NEAR OR ABOVE OPTIMAL 130 - 159 mg/dl BORDERLINE HIGH 160 - 189 mg/dl HIGH >190 mg/dl VERY HIGH Performed By: #### L IPID, TSH, MG, CMP #### [facility] [address] [place] [address] Dr. Nic Marie Triglyceride [Mass/Vol] 69 mg/dL Normal <=150 [facility] Comment on above: Performed By: #### L IPID, TSH, MG, CMP #### [facility] [address] [place] [address] Dr. Nic Marie VLDL CALC 13.8 mg/dL Normal [facility] Comment on above: Performed By: #### L IPID, TSH, MG, CMP #### [facility] [address] [place] [address] Dr. Nic Marie MAGNESIUMon 05-04-2021 Magnesium [Mass/Vol] 1.6 mg/dL Normal 1.6-2.3 [facility] Comment on above: Performed By: #### L IPID, TSH, MG, CMP #### [facility] [address] [place] [address] Dr. Nic Marie PROF 14(COMP METB)on 022 Albumin [Mass/Vol] 3.8 g/dL Normal 3.5-5.0 [facility] Comment on above: Performed By: #### L IPID, TSH, MG, CMP #### [facility] [address] [place] [address] Dr. Nic Marie Albumin/Globulin [Mass ratio] 1.0 {ratio} Normal [facility] Comment on above: Performed By: #### L IPID, TSH, MG, CMP #### [facility] [address] [place] [address] Dr. Nic Marie ALP [Catalytic activity/Vol] 69 U/L Normal 38-126 [facility] Comment on above: Performed By: #### L IPID, TSH, MG, CMP #### [facility] [address] [place] [address] Dr. Nic Marie ALT [Catalytic activity/Vol] 26 U/L Normal 21-72 [facility] Comment on above: Performed By: #### L IPID, TSH, MG, CMP #### [facility] [address] [place] [address] Dr. Nic Marie Anion gap [Moles/Vol] 8.5 mmol/L Normal [facility] Comment on above: Performed By: #### L IPID, TSH, MG, CMP #### [facility] [address] [place] [address] Dr. Nic Marie AST [Catalytic activity/Vol] 16 U/L Critically low 17-59 [facility] Comment on above: Performed By: #### L IPID, TSH, MG, CMP #### [facility] [address] [address] [address] Nic Marie Bilirubin [Mass/Vol] 0.7 mg/dL Normal 0.2-1.3 [facility] Comment on above: Performed By: #### L IPID, TSH, MG, CMP #### [facility] [address] [place] [address] Dr. Nic Marie Calcium [Mass/Vol] 9.4 mg/dL Normal 8.4-10.2 [facility] Comment on above: Performed By: #### L IPID, TSH, MG, CMP #### [facility] [address] [place] [address] Dr. Nic Marie Chloride [Moles/Vol] 104 mmol/L Normal 98-107 [facility] Comment on above: Performed By: #### L IPID, TSH, MG, CMP #### [facility] [address] [place] [address] Dr. Nic Marie CO2 [Moles/Vol] 30.9 mmol/L Critically high 22.0-30.0 [facility] Comment on above: Performed By: #### L IPID, TSH, MG, CMP #### [facility] [address] [place] [address] Dr. Nic Marie Creatinine [Mass/Vol] 1.03 mg/dL Normal 0.66-1.25 [facility] Comment on above: Performed By: #### L IPID, TSH, MG, CMP #### [facility] [address] [place] [address] Dr. Nic Marie EGFR-AF ZIMBABWEAN >60 Normal >=60 [facility] Comment on above: Performed By: #### L IPID, TSH, MG, CMP #### [facility] [address] [place] [address] Dr. Nic Marei EGFR-NON AF ZIMBABWEAN >60 Normal >=60 [facility] Comment on above: Performed By: #### L IPID, TSH, MG, CMP #### [facility] [address] [place] [address] Dr. Nic Marie Globulin (S) [Mass/Vol] 3.7 g/dL Normal [facility] Comment on above: Performed By: #### L IPID, TSH, MG, CMP #### [facility] [address] [place] [address] Dr. Nic Marie Glucose [Mass/Vol] 121 mg/dL Critically high 74-106 [facility] Comment on above: Performed By: #### L IPID, TSH, MG, CMP #### [facility] [address] [place] [address] Dr. Nic Marie Potassium [Moles/Vol] 4.4 mmol/L Normal 3.4-5.0 [facility] Comment on above: Performed By: #### L IPID, TSH, MG, CMP #### [facility] [address] [place] [address] Dr. Nic Marie Protein [Mass/Vol] 7.5 g/dL Normal 6.1-8.2 [facility] Comment on above: Performed By: #### L IPID, TSH, MG, CMP #### [facility] [address] [address] [address] Nic Marie Sodium [Moles/Vol] 139 mmol/L Normal 137-145 [facility] Comment on above: Performed By: #### L IPID, TSH, MG, CMP #### [facility] [address] [place] [address] Dr. Nic Marie Urea nitrogen [Mass/Vol] 21.0 mg/dL Critically high 9.0-20.0 [facility] Comment on above: Performed By: #### L IPID, TSH, MG, CMP #### [facility] [address] [place] [address] Dr. Nic Marie Urea nitrogen/Creatinine [Mass ratio] 20.4 mg/mg Normal [facility] Comment on above: Performed By: #### L IPID, TSH, MG, CMP #### [facility] [address] [address] [address] Nic Marie TSHon 05-04-2021 TSH 1.553 uIU/mL Normal 0.470-4.680 [facility] Comment on above: Performed By: #### L IPID, TSH, MG, CMP #### [facility] [address] [address] [address] Nic Marie TSH RANGE SEE BELOW Normal [facility] Comment on above: Result Comment: <0.3 4 UIU/ml HYPERTHYROID 0.34-5.60 UIU/ml EUTHYROID >5.60 UIU/ml HYPOTHYROID Performed By: #### L IPID, TSH, MG, CMP #### [facility] [address] [address] [address] Nic Marie Cardiovascular Lab Reporton 08-03-2020 Cardiovascular Lab Report [facility] Patient Name: [facility] Khadar Smart MR #: [id number] Department of Physician: Alexa Campbell M.D. Division of Service Date: 08/03/2020 Cardiology Birthdate: 1940 Adult Cardiovascular Room #: [address] [address] Cardiovascular Laboratory Report FINAL IMPRESSIONS: 1. Severe [...] right internal jugular vein was obtained. A 6-Central African x 11 cm sheath was inserted without [...] to access the left radial artery. A 6-Central African glide sheath was inserted without difficulty. Bilateral selective coronary angiography was performed using JR4 and JL4 catheters. After reviewing the images, it was elected to proceed with an interventional procedure. A 6-Central African JR4 guide catheter was advanced over J-wire [...] stenosis. (more content not included)... Normal [facility] Vital Signs Date Time Vital Sign Value Performing Clinician Facility 04-16-2024 12:56-0500 Body mass index (BMI) [Ratio] 26.77 kg/m2 OMERO Bradshaw MD Work Phone: [facility] 04-16-2024 12:56-0500 Body temperature 96.69 [degF] OMERO Bradshaw MD Work Phone: [facility] 04-16-2024 12:56-0500 Body weight 75.2 kg OMERO Bradshaw MD Work Phone: [facility] 04-16-2024 12:56-0500 Diastolic blood pressure 72 mm[Hg] OMERO Bradshaw MD Work Phone: [facility] 04-16-2024 12:56-0500 Respiratory rate 18 /min OMERO Bradshaw MD Work Phone: [facility] 04-16-2024 12:56-0500 SaO2% (BldA) [Mass fraction] 88 % NA Augustine WISE Work Phone: [facility] 04-16-2024 12:56-0500 Systolic blood pressure 121 mm[Hg] NA Augustine WISE Work Phone: [facility] 10-19-2023 10:55-0400 Blood Pressure Location Yousuf JUDGE [facility] 10-19-2023 10:55-0400 Diastolic blood pressure 70 mm[Hg] Yousuf JUDGE [facility] 10-19-2023 10:55-0400 Heart rate 16 /min Yousuf JUDGE [facility] 10-19-2023 10:55-0400 Respiratory rate 16 /min Yousuf JUDGE [facility] 10-19-2023 10:55-0400 Systolic blood pressure 130 mm[Hg] Yousuf JUDGE [facility] 10-13-2022 09:35-0400 Blood Pressure Location Yousuf JUDGE [facility] 10-13-2022 09:35-0400 Diastolic blood pressure 78 mm[Hg] Yousuf JUDGE [facility] 10-13-2022 09:35-0400 Heart rate 69 /min Yousuf JUDGE [facility] 10-13-2022 09:35-0400 Respiratory rate 16 /min Yousuf JUDGE [facility] 10-13-2022 09:35-0400 Systolic blood pressure 132 mm[Hg] Yousuf JUDGE [facility] Encounters Encounter Date Encounter Type Care Provider Facility Start: 10-20-2024 ambulatory Yousuf JUDGE Gopi ty:ALYSA GutierrezAlex Start: 05-05-2024 End: 05-05-2024 ambulatory CHRIS [facility] Start: 05-02-2024 End: 05-02-2024 Refill Dg Cook COT [facility] Comment on above: 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, mild stage (CMS/HCC) Start: 04-30-2024 End: 04-30-2024 ambulatory Yanelis BRADSHAW Facility:[facility] Start: 04-30-2024 End: 04-30-2024 Subsequent hospital visit [...] Work Phone: Radiation Oncology Comment on above: 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 - O ther Future Appointment; 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 - Other (Pacemaker Checks During XRT) Start: 04-23-2024 End: 04-23-2024 ambulatory Yanelis BRADSHAW Facility:[facility] Start: 04-23-2024 End: 04-25-2024 Patient encounter procedure Yanelis Bradshaw MD Work Phone: Radiation Oncology Comment on above: Malignant neoplasm o f lung, unspecified laterality, unspecified part of lung (HCC) (Primary Dx) Start: 04-22-2024 End: 04-23-2024 Telephone encounter Yanelis Bradshaw MD Work Phone: Hematology/Oncology Comment on above: Thoracentesis Start: 04-22-2024 End: 04-22-2024 Admission to same day surgery center Josy Delacruz MD Work Phone: [facility] [place] Work Phone: Start: 04-22-2024 End: 04-22-2024 ambulatory Josy Delacruz MD Work Phone: [facility] Work Phone: Start: 04-21-2024 End: 04-21-2024 Telephone encounter [facility] Start: 04-16-2024 End: 04-28-2024 Telephone encounter Yanelis [...] [facility] Start: 04-09-2024 End: 04-09-2024 ambulatory [facility] Start: 04-09-2024 End: 04-09-2024 ambulatory ZULY [facility] Start: 04-09-2024 End: 04-09-2024 ambulatory [facility] Start: 03-20-2024 ambulatory [facility] Start: 03-10-2024 End: 03-10-2024 ambulatory [facility] Start: 03-07-2024 End: 03-07-2024 [facility] Start: 03-03-2024 End: 03-03-2024 [facility] Start: 02-08-2024 End: 02-08-2024 ambulatory CHRIS [facility] Start: 11-27-2023 End: 11-27-2023 Bamboo flowsheet Kely D Zahler DO Work Phone: [facility] Start: 11-27-2023 End: 11-27-2023 Bamboo flowsheet Kely D Zahler DO Work Phone: [facility] Start: 11-27-2023 End: 11-27-2023 ambulatory KELY D ZAHLER Not Available Start: 10-19-2023 End: 10-19-2023 ambulatory Yousuf JUDGE Facility: [place] Start: 10-19-2023 End: 10-19-2023 Patient encounter procedure Yousuf JUDGE [facility] Start: 09-25-2023 End: 09-25-2023 ambulatory JACKY [facility] Start: 08-24-2023 End: 08-24-2023 ambulatory KELY D ZAHLER Not Available Start: 06-29-2023 End: 06-29-2023 ambulatory KELY D ZAHLER Not Available Start: 05-11-2023 End: 05-11-2023 ambulatory KELY D ZAHLER Not Available Start: 02-23-2023 End: 02-23-2023 ambulatory KELY D ZAHLER Not Available Start: 10-17-2022 End: 10-17-2022 Patient encounter procedure Yousuf JUDGE [facility] Start: 10-13-2022 End: 10-13-2022 Patient encounter procedure Yousuf JUDGE [facility] Start: 04-20-2022 End: 04-21-2022 ambulatory LAURA SEVERIANO Facility:[facility] Start: 10-25-2021 End: 10-26-[address] RAMYA FLANAGAN Facility:[facility] Start: 05-04-2021 End: 05-05-2021 ambulatory LAURA SEVERIANO Facility:[facility] Start: 08-03-2020 End: 08-04-2020 ambulatory RAMYA FLANAGAN Facility:[facility] Procedures Date Procedure Procedure Detail Performing Clinician Start: 04-30-2024 Gluc bld gluc mntr d ev cleared fda spec home use [facility] Provider Start: 11-27-2023 End: 11-27-2023 Visual field xm uni/bi w/interp extended exam Kely Bodren DO Work Phone: Start: 11-27-2023 End: 11-27-2023 [...] above: Performed By: #### P SAD #### [facility] [address] [place] [address] Dr. Nic Marie Start: 08-03-2020 Placement of stent i n cardiac conduit Yousuf JUDGE carotid endarderectomy Frandy JUDGE History of hernia repair Tonia JUDGE Operative procedure on coronary artery Yousuf JUDGE Plan of Treatment Date Care Activity Detail Author Start: 06-17-2024 End: 06-17-2024 Patient encounter procedure 06/17/2024 2:15 PM EDT Office Visit [facility] [address] [place] [address] Kely Borden, [address] [place] [address] [facility] Start: 04-30-2024 End: 04-30-2024 Patient encounter procedure Radiation Oncology Comment on above: NEW START, LUNG pt p refers after 9:00am PET Start: 04-26-2024 End: 05-25-2025 PET+CT Guidance for 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-- W 18F-FDG IV NM PET/CT SKULL-THIGH SUBSEQUENT Radiology Routine Malignant neoplasm of unspecified part of unspecified bronchus or lung (HCC) Expected: 04/26/2024, Expires: 05/25/2025 [facility] Work Phone: Comment on above: Expected: 04/26/2024 [...] of lung (HCC) Expected: 04/22/2024, Expires: 07/22/2024 [facility] Comment on above: Expected: 04/22/2024 , Expires: 07/22/2024 Start: 04-22-2024 End: 07-22-2024 BODY FLUID CELL COUNT BODY FLUID CELL COUNT Lab Routine Malignant neoplasm of lung, unspecified laterality, unspecified part of lung (HCC) Expected: 04/22/2024, Expires: 07/22/2024 [facility] Work Phone: Comment on above: Expected: 04/22/2024 , Expires: 07/22/2024 Start: 04-22-2024 End: 07-22-2024 CYTOLOGY NON-STUDIO SET UP WORKER CYTOLOGY NON-STUDIO SET UP WORKER Lab Routine Malignant neoplasm of lung, unspecified laterality, unspecified part of lung (HCC) Expected: 04/22/2024, Expires: 07/22/2024 [facility] Comment on above: Expected: 04/22/2024 , Expires: 07/22/2024 Start: 04-22-2024 End: 07-22-2024 Glucose [Mass/volume] in Body fluid GLUCOSE, BODY FLUID Lab Routine Malignant neoplasm of lung, unspecified laterality, unspecified part of lung (HCC) Expected: 04/22/2024, Expires: 07/22/2024 [facility] Comment on above: Expected: 04/22/2024 , Expires: 07/22/2024 Start: 04-22-2024 End: 07-22-2024 Lactate dehydrogenase [Enzymatic activity/volume] in Body fluid LACTATE DEHYDROGENASE, BODY FLUID Lab Routine Malignant neoplasm of lung, unspecified laterality, unspecified part of lung (HCC) Expected: 04/22/2024, Expires: 07/22/2024 [facility] Comment on above: Expected: 04/22/2024 , Expires: 07/22/2024 Start: 04-22-2024 End: 07-22-2024 Microorganism identified in Unspecified specimen by Culture AFB CULTURE AND STAIN Microbiology Routine Malignant neoplasm of lung, unspecified laterality, unspecified part of lung (HCC) Expected: 04/22/2024, Expires: 07/22/2024 [facility] Comment on above: Expected: 04/22/2024 , Expires: 07/22/2024 Start: 04-22-2024 End: 07-22-2024 pH of Body fluid PH BODY FLUID Lab Routine Malignant neoplasm of lung, unspecified laterality, unspecified part of lung (HCC) Expected: 04/22/2024, Expires: 07/22/2024 [facility] Comment on above: Expected: 04/22/2024 , Expires: 07/22/2024 Start: 03-05-2024 Advance Directive Discussion Advance Directive Discussion [facility] Start: 11-27-2023 End: 11-27-2023 Patient encounter procedure 11/27/2023 10:30 AM EDT Office Visit [facility] [address] [place] [address] Kely Borden DO [address] [place] [address] Arrived [facility] Comment on above: Arrived Start: 11-04-2023 Covid-19 Vaccine ( season) Covid-19 Vaccine ( season) [facility] Start: 11-04-2023 Influenza vaccination Influenza Vacc ine (#1) [facility] Start: 12-20-2017 Pneumococcal Vaccine : 50+ (2 of 2 - PPSV23) Pneumococcal Vaccine: 50+ (2 of 2 - PPSV23) [facility] Start: 12-20-2017 Pneumococcal Vaccine : 65+ Years (2 of 2 - PPSV23 or PCV20) Pneumococcal Vaccine: 65+ Years (2 of 2 - PPSV23 or PCV20) [facility] Start: 2017 RSV Vaccine (1 - 1-d ose 75+ series) RSV Vaccine (1 - 1-dose 75+ series) [facility] Start: 02-16-1992 Shingrix Vaccine (1 of 2) Shingrix Vaccine (1 of 2) [facility] Start: 1987 Diabetes Screening Diabetes Screenin g [facility] Start: 1961 Urine microalbumin profile DTaP,Tdap,Td Vaccine (1 - Tdap) [facility] Start: 02-16-1960 Anxiety Screening Anxiety Screening [facility] Start: 02-16-1960 Depression Screening Depression Scre ening [facility] ANALYZE CARDIO/DEFIBRILLATOR ANALYZE CARDIO/DEFIBRILLATOR Cardiology Routine Atrial fibrillation, unspecified type (HCC) Malignant neoplasm of lung, unspecified laterality, unspecified part of lung (HCC) Ordered: 04/17/2024 [facility] Work Phone: Comment on above: Ordered: 04/17/2024 CT Guidance for radiation treatment of Unspecified body region CT SIM PLANNING RADIATION ONCOLOGY Radiology Routine Malignant neoplasm of lung, unspecified laterality, unspecified part of lung (HCC) Ordered: 04/23/2024 [facility] Work Phone: Comment on above: Ordered: 04/23/2024 Guidance for thoracentesis of Chest IMAGING GUIDED THORACENTESIS Radiology Routine Malignant neoplasm of lung, unspecified laterality, unspecified part of lung (HCC) Ordered: 04/17/2024 [facility] Comment on above: Ordered: 04/17/2024 PET+CT Guidance for 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-- W 18F-FDG IV NM PET/CT SKULL-THIGH SUBSEQUENT Radiology Routine Malignant neoplasm of unspecified part of unspecified bronchus or lung (HCC) 04/30/2024 9:22 AM EST [facility] Work Phone: Immunizations Immunization Date Immunization Notes Care Provider Natacha wang 11-23-2021 SARS-CoV-2 (COVID-19 ) [id number] Yousuf JUDGE [facility] 12-30-2020 SARS-CoV-2 (COVID-19 ) mRNA BNT-162b2 vax Yousuf JUDGE [facility] Comment on above: Result Comment: 2023: [id number] 05-13-2020 SARS-CoV-2 (COVID-19 ) mRNA-1273 vaccine Yousuf JUDGE [facility] Comment on above: Result Comment: 2023: [id number] 04-15-2020 SARS-CoV-2 (COVID-19 ) mRNA-1273 vaccine Yousuf JUDGE [facility] 03-05-2020 SARS-CoV-2 (COVID-19 ) mRNA-1273 vaccine Yousuf JUDGE [facility] Comment on above: Result Comment: pt h as had 3 shots to date but does not know the dates 12-20-2016 pneumococcal conjuga te vaccine, 13 valent Yousuf JUDGE [facility] NEGATED: Highlighted row has not occurred!04-23-2020 influenza virus vaccine, unspecified formulation Yousuf ALFIE [facility] Payers Date Payer Category Payer Self-pay 2021 Medicare AETNA MEDICARE A DVANTAGE AETNA MEDICARE REPLACEMENT [id number] 2021-Present [address] [place] [address] [id number] 2019 Medicare (Managed Care) AETNA [place] DICARE [id number] 1959 Medicare [id number] 1940 Unknown [id number] [id number]. 647 1940 Unknown [id number] [id number]. 593 1940 Unknown [id number] [id number]. 593 1940 Unknown [id number] 2.16.840.1.831035.3.579.2. 593 1940 Unknown [id number] 2.16.840.1.128676.3.579.2. 593 1940 Unknown [id number] 2.16.840.1.534106.3.579.2. 727 1942 Unknown [id number] 2.16.840.1.209839.3.579.2. 727 1942 Unknown [id number] 2.16.840.1.495241.3.579.2. 1259 1942 Unknown [id number] 2.16.840.1.981334.3.579.2. 1259 1942 Unknown [id number] 2.16.840.1.475853.3.579.2. 1259 1942 Unknown [id number] 2.16.840.1.914750.3.579.2. 1259 1940 Unknown [id number] 2.16.840.1.142682.3.579.2. 1259 Private Health Insurance [id number] Private Health Insurance [facility] [id number] Unknown [id number]. 531 Social History Date Type Detail Facility Start: 05-28-2014 End: 04-25-2019 Tobacco smoking status Ex-smoker (finding) [facility] Start: 09-27-2022 End: 08-24-2023 Sex Assigned At Male [facility] Tobacco smoking status Never [facility] Start: 09-27-2022 Tobacco smoking stat us NHIS Never smoked tobacco [facility] Start: 09-27-2022 End: 08-24-2023 History of Social function [facility] Start: 1940 Sex assigned at Not on file [facility] Start: 03-05-1969 End: 03-05-1999 History of tobacco use Current smoker [facility] Start: 03-05-1969 End: 03-05-1999 History of tobacco use Cigarette Smoker [facility] Start: 05-28-2014 Tobacco use and exposure Smokeless tobacco non-user [facility] Start: 06-05-2018 Alcoholic beverage intake Current non-drinker of alcohol (finding) [facility] Start: 04-25-2024 Sex Male (finding) [facility] Start: 1940 Sex Assigned At Male F [facility] Functional Status Date Assessment Result Facility 10-19-2023 Functional Status N/A [facility] 10-13-2022 Functional Status N/A [facility] 09-28-2014 Are you deaf, or do you have serious difficulty hearing No 09/28/2014 11:08 AM FANYT Rojelio Guajardo RN No [facility] 09-28-2014 Are you blind, or do you have serious difficulty seeing, even when wearing glasses No 09/28/2014 11:08 AM Rojelio Garcia RN No [facility] 09-28-2014 Do you have serious difficulty walking or climbing stairs No 09/28/2014 11:08 AM Rojelio Garcia RN No [facility] 09-28-2014 Do you have difficul ty dressing or bathing No 09/28/2014 11:08 AM Rojelio Garcia RN No [facility] 09-28-2014 Because of a physica l, mental, or emotional condition, do you have difficulty doing errands alone such as visiting a physician's office or shopping No 09/28/2014 11:08 AM Rojelio Garcia RN No [facility] Mental Status Date Assessment Result Facility 09-28-2014 Because of a physica l, mental, or emotional condition, do you have serious difficulty concentrating, remembering, or making decisions No 09/28/2014 11:08 AM Rojelio Garcia RN No [facility] Clinical Notes 10-13-2022 to 05-05-2024 Cherelle Cordero RN - 04/30/2024 8:00 AM Dg Shannon RT(R) - 04/30/2024 8:00 AM ESTTelephone Encounter - Shazia Rooney - 04/25/2024 12:57 PM Yanelis Miguel MD - 04/23/2024 9:36 AM EST Note Date & Type Note Facility 05-05-2024 Note [place] Cardiology - [facility] Subjective Khadar Dawn is a [...] Past Medical History: Diagnosis Date Atrial fibrillation ([facility]) CHF (congestive heart failure) ([facility]) COPD (chronic obstructive pulmonary disease) ([facility]) home oxygen 4 L Coronary artery disease Diabetes mellitus ([facility]) Hyperkalemia Hyperlipidemia Hypertension Past Surgical History: Procedure [...] mg by mout (more content not included)... [facility] 04-30-2024 History of Present illness Narrative Radiology [...] 0756 PATIENT DISCHARGED TO: Ambulatory patient, left [place] department area. Is this a therapy: No A Diagnostic radioactive procedure has taken place, with no further precautions necessary other than routine body substance precautions. More information regarding radiation safety can be found using this link: [email or web address] [email or web address] ear%20Medicine%20Procedures.[email or web address] SIGNATURE: RT Adenike(R) PATIENT NAME: Khadar Dawn DATE: April 30, 2024 TIME: 8:24 AM PAGER/CONTACT #: documented in this encounter [facility] 04-30-2024 Note HNO ID: [id number] Author: CHERELLE CODRERO RN Service: ? Author Type: Registered Nurse [...] DATE: April 30, 2024 TIME: 7:59 AM [facility] 04-30-2024 Note HNO ID: [id number] Author: DG COOK RT(R) Service: ? Author [...] 0756 PATIENT DISCHARGED TO: Ambulatory patient, left [place] department area. Is this a therapy: No A Diagnostic radioactive procedure has taken place, with no further precautions necessary other than routine body substance precautions. More information regarding radiation safety can be found using this link: [email or web address] [email or web address]-% 20Diagnostic%20Nuclear%20Medicine %20Procedures.pdf SIGNATURE: Dg Cook, RT(R) PATIENT NAME: Khadar Dawn DATE: April 30, 2024 TIME: 8:24 AM PAGER/CONTACT #: [facility] 04-25-2024 Telephone encounter Note Khadar is scheduled for a PET scan on Apr 30 with an arrival time of 8am and a scan time of 915. Confirmed with . [facility] 04-25-2024 Miscellaneous Notes Khadar is scheduled [...] patient on Sunday when he is in [place]. documented in this encounter [facility] 04-25-2024 Telephone encounter Note I apologize, per Radiology I can't use this one. I have to give him the next available which is 05/06 or 05/09. [facility] 04-25-2024 Telephone encounter Note First PET opening is Sunday. Please advise if this is ok? [facility] 04-25-2024 Telephone encounter Note In reviewing simulation images right concern of growing nodules outside of the left upper lobe lesion concerning for metastasis. Recommend holding radiation planning. Recommend reimaging with PET scan. Discussed with Dr. Rodriguez and with patient. Dr. Rodriguez can see patient on Sunday when he is in [place]. [facility] 04-23-[address] Rodriguez's [...] of ordering and scheduling. Edyta Gilliland, RN [facility] 04-23-[address] Rodriguez's office called [...] Edyta Gilliland RN documented in this encounter [facility] 04-23-2024 Telephone encounter Note Call placed to [facility] [place] ([phone]). Spoke to Kristi to arrange weekly pacemaker checks. Kristi called rep from [employer] and stated he has a single chamber [...] pt know as well. Edyta Gilliland RN [facility] 04-23-2024 Miscellaneous Notes Call placed to [facility] [place] ([phone]). Spoke to Kristi to arrange weekly pacemaker checks. Kristi called rep from [employer] and stated he has a single chamber [...] Edyta Gilliland RN documented in this encounter [facility] 04-23-2024 Note HNO ID: [id number] Author: Yanelis BRADSHAW MD Service: ? Author Type: Physician Type: Progress Notes Filed: 04/23/2024 09:36 Note Text: se [facility] 04-23-2024 History of Present illness Narrative sim documented in this encounter [facility] 04-23-2024 Telephone encounter Note Per scanned US report, thoracentesis was not done. [facility] 04-23-2024 Miscellaneous Notes Per scanned US report, thoracentesis was not done. Received call from Hui at [facility] radiology asking for images from last Chest XR be pushed over. Patient is there for thoracentesis and the radiologist is not seeing any fluid. I let her know his last XR chest was done at [facility], and the one before that was at [place]. She will call there for images. She said they will probably not be able to do the thoracentesis since there is no fluid that they can see. documented in this encounter [facility] 04-23-2024 History of Present illness Narrative KHADAR DAWN [id number] 04/23/2024 [facility] Radiation Oncology Department SIMULATION NOTE DATE OF SIMULATION: 04/23/2024 THERAPIST: Paulette Weinberg John MACHINE: Deminos DIAGNOSIS: Malignant neoplasm of upper lobe, left [...] TS :31 PM documented in this encounter [facility] 04-23-2024 Note HNO ID: [id number] Author: Yanelis BRADSHAW MD Service: ? Author Type: Physician Type: Progress Notes Filed: 04/24/2024 14:31 Note Text: KHADAR DAWN [id number] 04/23/2024 [facility] Radiation Oncology Department SIMULATION NOTE DATE OF SIMULATION: 04/23/2024 THERAPIST: Paulette Lea MACHINE: Deminos DIAGNOSIS: Malignant neoplasm of upper lobe, left [...] Juno Bradshaw M.D. / TS :31 PM [facility] 04-22-2024 Radiology Diagnostic study note [facility] Main [place] [address] [place] [address] Ultrasound Report Signed Patient: Khadar Dawn MR#: [id number] : 1940 Acct:[id number] Age/Sex: 84 / M ADM Date: 5 Loc: Room: Type: [facility] Attending Dr: Comfort Bradshaw MD Ordering Provider: Yanelis Bradshaw MD Date of Service: 04/22/24 US/US guide or thoracentesis: THORA Copies to: Yanelis Bradshaw MD~ ULTRASOUND-GUIDED THORACENTESIS INDICATION: REPORTED EFFUSION COMPARISON: NONE US/US guide or thoracentesis FINDINGS/IMPRESSION: ULTRASOUND LEFT CHEST WALL DEMONSTRATE NO FLUID COLLECTION. PROCEDURE NOT PERFORMED. Impression dictated by: Hal Mojica M.D.04/22/2024 2:57 PM Dictation Location: [place] [address] Tech: Javier Vidal Transcribed By: QING 04/22/241456 Dictated By: Hal Mojica MD 04/22/241455 Signed By: 04/22/241456 [facility] Work Phone: 04-22-2024 Telephone encounter Note Received call from Hui at [facility] radiology asking for images from last Chest XR be pushed over. Patient is there for thoracentesis and the radiologist is not seeing any fluid. I let her know his last XR chest was done at [facility], and the one before that was at [place]. She will call there for images. She said they will probably not be able to do the thoracentesis since there is no fluid that they can see. [facility] 04-21-2024 Telephone encounter Note Consult note faxed to Dr. Rodriguez. [facility] 04-21-2024 Miscellaneous Notes Consult note faxed to Dr. Rodriguez. Erich from Dr. Rodriguez's office called asking for past progress notes for the patient. He stated that the patient was referred and they have not received any information. Please fax records to [phone]. documented in this encounter [facility] 04-21-2024 Telephone encounter Note Patient does not see Dr. Lane. This fax number is for Dr. Rodriguez. Patient's PCP is Dr. Delacruz. Note will be faxed to Dr. Rodriguez and Dr. Delacruz once it is complete. [facility] 04-21-2024 Miscellaneous Notes Patient does not see Dr. Lane. This fax number is for Dr. Rodriguez. Patient's PCP is Dr. Delacruz. Note will be faxed to Dr. Rodriguez and Dr. Delacruz once it is complete. Dr. Lane's office called requesting progress notes from the past 12 months. Please fax to [phone]. They are requesting this today as he has an appointment. Thank you documented in this encounter [facility] 04-21-2024 Telephone encounter Note Records faxed to Dr. Ponce's [place] office. [facility] 04-21-2024 Miscellaneous Notes Records faxed to Dr. Ponce's [place] office. Referral was sent to [place] and [place] offices. Confirmed patient to be scheduled in [place] with Dr. Ponce on 04/23 at 3pm. I called [place] office and explained sent by mistake to please disregard. JACLYN Claudio could you please fax demographics and records to DR. Ponce office at [phone]. He is having a thoracentesis on 04/22. [...] Thanks! Vicki Dockery RT(R)(T) Patient scheduled at [facility] on 04/22 at 9am. Arrive at 8am and stop Xarelto 2 days prior. LM for patient of this information and I will call back tomorrow to confirm he got it. Dr Ponce office returned my call. Asked if I would fax everything to their referral fax line. They will review and contact the patient for an appointment. All info was faxed to [phone] Will follow up to see when appt is scheduled Yolanda Schwartz PSS Everything is faxed to [employer] for Shazia Perez and I will check with [employer] daily to see when scheduled I called [...] to be signed to fax to IR [facility] PSS/RT: Please schedule [facility] IR for thoracentis return for sim after treating lung no contrast 15 treatments, no concurrent chemo Need presim consent Nurse ed today Consult with Dr. Ponce to establish care with local cloth trimmer hand. pt does not want to travel to current cloth trimmer hand in [place]. Thanks Rojelio Guajardo RN documented in this encounter [facility] 04-21-2024 Telephone encounter Note Referral was sent to [place] and [place] offices. Confirmed patient to be scheduled in [place] with Dr. Ponce on 04/23 at 3pm. I called [place] office and explained sent by mistake to please disregard. [facility] 04-21-2024 Telephone encounter Note JACLYN Shanon could you please fax demographics and records to DR. Ponce office at [phone]. He is having a thoracentesis on 04/22. She would like records faxed and images pushed of those as well. Thanks so much [facility] 04-21-2024 Telephone encounter Note Spoke to patient, confirmed pre sim and arrival time 04/23 at 745am. [facility] 04-21-2024 Telephone encounter Note Erich from Dr. Rodriguez's office called asking for past progress notes for the patient. He stated that the patient was referred and they have not received any information. Please fax records to [phone]. [facility] 04-21-2024 Telephone encounter Note Sim scheduled on 04/23/24 at 830am PSS - please schedule pre sim consent with CHRISTIE at 8am & notify pt of 745 arrival time, no special instructions. Thanks! Vicki Dockery RT(R)(T) [facility] Work Phone: 04-18-2024 Telephone encounter Note Patient scheduled at [facility] on 04/22 at 9am. Arrive at 8am and stop Xarelto 2 days prior. LM for patient of this information and I will call back tomorrow to confirm he got it. [facility] 04-18-[address] Ponce office returned my call. Asked if I would fax everything to their referral fax line. They will review and contact the patient for an appointment. All info was faxed to [phone] Will follow up to see when appt is scheduled Yolanda Schwartz PSS [facility] 04-18-2024 Telephone encounter Note Everything is faxed to [employer] for Shazia Perez and I will check with [employer] daily to see when scheduled I called Dr Ponce office and got a voicemail stating they are away from their desk. I left a message asking them to return my call as I have a referral I would like to get scheduled. Will update when I hear back from them Yolanda Schwartz PSS [facility] 04-18-2024 Telephone encounter Note Order is signed. Please arrange thoracentesis appt lizette. Thanks Rojelio Guajardo RN [facility] 04-17-2024 Telephone encounter Note Waiting on orders to be signed to fax to [facility] 04-16-2024 Note HNO ID: [id number] Author: ROJELIO GUAJARDO RN Service: ? Author Type: Registered Nurse Type: Progress Notes Filed: 04/16/2024 15:30 Note Text: Radiation Therapy - Patient Education Note PATIENT NAME: Khadar Dawn PATIENT April 16, 2024 [facility] FACILITY/LOCATION: [facility] READINESS TO LEARN Cognitive Ability: Alert and [...] need for social work, van service, and director sales and marketing. Was PED reviewed? No Patient has an Onbody or Implanted device: Yes, person notified was: Dr. Bradshaw Signed by: Rojelio Guajardo RN [facility] 04-16-2024 History of Present illness Narrative Radiation Therapy - Patient Education Note PATIENT NAME: Khadar Dawn PATIENT April 16, 2024 [facility] FACILITY/LOCATION: [facility] READINESS TO LEARN Cognitive Ability: Alert and [...] need for social work, van service, and director sales and marketing. Was PED reviewed? No Patient has an Onbody or Implanted device: Yes, person notified was: Dr. Bradshaw Signed by: Rojelio Guajardo RN documented in this encounter [facility] 04-16-2024 Telephone encounter Note PSS/RT: Please schedule [facility] IR for thoracentis return for sim after treating lung no contrast 15 treatments, no concurrent chemo Need presim consent Nurse ed today Consult with Dr. Ponce to establish care with local cloth trimmer hand. pt does not want to travel to current cloth trimmer hand in [place]. Thanks Rojelio Guajardo RN [facility] 04-16-2024 Note HNO ID: [id number] Author: Yanelis BRADSHAW MD Service: ? Author [...] (60.0 ttl pk-yrs) (more content not included)... [facility] 04-16-2024 History of Present illness Narrative Radiation [...] uptake to an AP window lymph node. [facility] with EBUS negative level 7 lymph node [...] MD cc: Josy M Nubia [address] [place] [id number] Meeta Rodriguez [address] [facility] [address] Pacemaker/Defibrillator? Yes 03/03 placed Previous Cancer(s)? Yes Prostate Previous Radiation? Yes- Here Lupus/Scleroderma?No On body monitoring device? No Edyta Gilliland RN documented in this encounter [facility] 04-16-2024 Note HNO ID: [id number] Author: EDYTA GILLILAND, RN Service: ? Author Type: Registered Nurse Type: Progress Notes Filed: 04/21/2024 15:24 Note Text: Pacemaker/Defibrillator? Yes 03/03 placed Previous Cancer(s)? Yes Prostate Previous Radiation? Yes- Here Lupus/Scleroderma?No On body monitoring device? No Edyta Gilliland RN [facility] 04-16-2024 Note Education (RADTSA) KHADAR DAWN ([id number]) 1940 M Date Time Provider Department 04/16/24 [...] Encounter Status:Closed by ROJELIO GUAJARDO on 04/16/24 [facility] 04-15-[address] Lane's office called requesting progress notes from the past 12 months. Please fax to [phone]. They are requesting this today as he has an appointment. Thank you [facility] 04-09-2024 Note Patient: Khadar cox Procedure Summary Date: 04/09/24 Room / Location: [facility] Main Operating Room Anesthesia Start: 1110 Anesthesia [...] per anesthesia protocol. No notable events documented. [facility] 04-09-2024 Note Airway Date/Time: 04/09/2024 11:21 AM Urgency: elective Airway not difficult General Information and Staff Patient location during procedure: OR Anesthesiologist: Zuly Rizo MD Resident/DOOR CAPTAIN/CAA: Anmol Mccray MD Performed: resident/DOOR CAPTAIN/CAA Learner assisted: MS Indications and Patient Condition [...] 22 Number of attempts at approach: 1 [facility] 04-09-[address] Rizo at pt beds gabriella to assess before heading to procedure room. [facility] 04-09-2024 Note H&P reviewed. The pa tient was examined and there are no changes to the H&P. Re-explained the procedure to the patient along with the associated risk of pneumothorax, bleeding, hypoxia, and respiratory failure. Patient is agreeable and will proceed with the scheduled Robotic bronchoscopy and TBBx, FNA, EBUS Cara Perez MD Interventional Pulmonary Medicine Pulmonary and Critical Care Medicine [facility] 04-09-2024 Note PROCEDURE: CT CHEST WITHOUT CONTRAST [...] Electronically signed: David Hoffman MD. Not Vldtd [facility] 04-08-2024 Note Patient: Khadar cox Procedure Information Date/Time: 04/09/24 1030 Scheduled providers: Cara Perez MD; Zuly Rizo MD Procedure: BRONCHOSCOPY Location: [facility] Main Operating Room Relevant Problems Cardio S/p [...] with attending and resident. Additional Equipment Requests [facility] 03-20-2024 Note Attestation signed by Cara Perez MD at 03/21/2024 11:55 AM I have seen and examined the patient. I reviewed the resident/fellow note and I agree with the findings and plan. Cara Perez MD Interventional Pulmonary Medicine Pulmonary and Critical Care Medicine [facility] Pulmonary Clinic Visit Note Patient: Khadar Dawn Age: 84 y.o. : 1940 Account No.: [id number] Referring physician: Dr. Delacruz Chief complaint: Lung [...] failure) (CMS/HCC) Coronary artery disease Diabetes mellitus ([facility]) Hyperkalemia Hyperlipidemia Hypertension Past Surgical History: Procedure [...] rales CARDIOVASCULAR: Re (more content not included)... [facility] 03-10-2024 Note [place] Cardiology - [facility] Subjective Khadar Dawn is a [...] extremities. PSYCH: gloria (more content not included)... [facility] 03-03-2024 Note SINGLE CHAMBER PACEM CRUZITO IMPLANT PROCEDURE NOTE DATE OF PROCEDURE: 03/03/2024 PERFORMING PHYSICIAN: Dr. Aaron Rivas CONSENT: Patient LOCATION: EP Lab PROCEDURE PERFORMED: 1. Implantation of pacemaker ([employer]) 2. Ultrasound guided venous access INDICATIONS: 1. [...] using modified seldinger technique using a 5 [place] micro-puncture needle on one occasion and 0.35 [...] for the device above the muscle. 6 [place] Safesheaths were placed over the wire. An active fixation [employer] pacing lead was then delivered through the 6Fsheath to the right ventricle. After confirmation of lead position on orthogonal views (GODINEZ and ETHIOPIAN) to confirm septal position, the screw was [...] any concerns. Aaron Rivas MD Cardiac Electrophysiology [facility] 03-03-2024 Note Patient: Khadar cox Procedure Information Date/Time: 03/03/24 1130 Procedure: Implant PPM - [employer] Location: [facility] PLANT TECHNICAL SPECIALIST 1 / [facility] (Cath) Providers: Aaron Rivas MD Clinical information reviewed: Allergies Meds Physical Exam Airway Mallampati: II TM distance: >3 FB Neck ROM: full Cardiovascular Dental Pulmonary Abdominal Anesthesia Plan ASA 3 CSE Anesthetic plan and risks discussed with patient. Use of blood products discussed with patient who. Additional Equipment Requests [facility] 02-22-2024 Note Today I reviewed pat ient [...] Dr. Rivas next time he is in [place] office 03/18/2024. The patient was advised to come to the emergency room immediately if he has any dizziness. [facility] 02-08-2024 Note [place] Cardiology - [facility] Subjective Khadar Dawn is a 83 y.o. year old male patient being seen for Hospital Follow-up (He was admitted to [facility] last month for CHF. Say he's [...] and other tests (more content not included)... [facility] 11-27-2023 Note Right Eye Reliability was good. Progression has been stable. Foveal threshold was normal. Findings include normal observations. Left Eye Reliability was good. Progression has been stable. Foveal threshold was normal. Findings include central scotoma. [facility] 11-27-2023 Note Right Eye Quality was good. Scan locations included subfoveal. Progression has been stable. Findings include abnormal foveal contour. Left Eye Quality was good. Scan locations included subfoveal. Progression has been stable. Findings include abnormal foveal contour, subretinal scarring. Notes Retinal pigment epithelium (RPE) changes c/w drusen Macular volume loss both eyes (OU) [facility] 11-27-2023 History of Present illness Narrative [...] worsening of vision documented in this encounter [facility] 10-19-2023 Hospital Discharge instructions Patient Education [...] urethra. Follow these instructions at home: Take kdvz-ixr-vqxcsgx and prescription medicines only as told by [...] provider. Document Revised: 09/07/2021 Document Reviewed: 09/07/2021 APS Patient Education 2022 [employer]. Follow Up Care 12/11/2022 11:11:41 With:ALFIE WISE, Yousuf Barroso, URL Address: [address] [place] [address]- When: Unknown [facility]23 Note Patient Education Urology Benign [...] Follow these instructions at home: ? Take dojc-tyt-mfaksdr and prescription medicines only as told by [...] develop side effec (more content not included)... [facility] 09-25-2023 Note Patient here for 6 [...] All other systems reviewed and are negative. [facility] 09-25-2023 Note Cardiovascular Medic [facility] SUBJECTIVE Chief Complaint Patient presents [...] Final QTC CALCULATION(BAZETT) 08/03/2020 428 ms Final R-[place] 08/03/2020 -82 degrees Final T Wave [place] 06 (more content not included)... [facility] 10-17-2022 Hospital Discharge instructions Patient Education [...] Address: [facility] [address] [place] [address]- Business (1) When: Unknown Comments:Office will call to schedule follow up [facility] 10-13-2022 Hospital Discharge instructions Patient Education [...] urethra. Follow these instructions at home: Take [id number]-[id number] and prescription medicines only as told by [...] provider. Document Revised: 09/07/2021 Document Reviewed: 09/07/2021 APS Patient Education 2022 [employer] Follow Up Care 04/25/2021 10:27:16 With:Yousuf JUDGE MD, URL Address: [facility] [address], [place] [address]- When: Unknown Comments:radha Cysto. [facility] Evaluation + Plan note Future Appointments Appointment Date:10/16/2022 10:45:00 AM Scheduled Provider: Location:[facility] Appointment Type:Urology CALL PAT FT Appointment Date:10/17/2022 10:00:00 AM Scheduled Provider: Location:[facility] Appointment Type:Urology FT Diagnostic Tests PendingPSA Total 10/13/22 [facility] Evaluation + Plan note Future Appointments Appointment Date:10/20/2024 10:30:00 AM Scheduled Provider:Yousuf JUDGE MD Location:[facility] Appointment Type:URO Office Visit Diagnostic Tests PendingPSA Total 09/02/24 [facility] Evaluation note Diagnosis Primary open angle glaucoma (POAG) of both eyes, mild stage (CMS/HCC)- Primary 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) Age-related nuclear cataract of both eyes 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 [facility] Diagnosis Atrial fibrillation, unspecified type (HCC)- Primary Malignant neoplasm of lung, unspecified laterality, unspecified part of lung (HCC) [facility] Malignant neoplasm of lung, unspecified laterality, unspecified part of lung (HCC)- Primary [facility] Diagnosis Malignant neoplasm of lung, unspecified laterality, unspecified part of lung (HCC)- Primary [facility] Diagnosis Malignant neoplasm of unspecified part of unspecified bronchus or lung (HCC)- Primary [facility] Work Phone: Evaluation note* Diagnosis Malignant neoplasm of lung, unspecified laterality, unspecified part of lung (HCC)- Primary [facility] Diagnosis Malignant neoplasm of unspecified part of unspecified bronchus or lung (HCC) [facility] Diagnosis Primary open angle glaucoma (POAG) of both eyes, mild stage (CMS/HCC) [facility] N[facility] No data available for this section [facility] progress note No data available for this section [facility] Summary Purpose Family History No Family [...] and content) DATE CREATED AUTHOR 08/09/2020 [facility] DATE CREATED AUTHOR AUTHOR'S ORGANIZ ATION 04/22/2022 [facility] DATE CREATED AUTHOR AUTHOR'S ORGANIZ ATION 10/21/2023 [facility] DATE CREATED AUTHOR AUTHOR'S ORGANIZ ATION 11/29/2023 [facility] EPIC DATE CREATED AUTHOR AUTHOR'S ORGANIZ ATION 04/28/2024 [facility] DATE CREATED AUTHOR AUTHOR'S ORGANIZ ATION 05/06/2024 [facility] DATE CREATED AUTHOR AUTHOR'S ORGANIZ ATION 05/06/2024 [facility] Patient Care team informatio n (unrecognized section and content) Imaging Aide Relationship Specialty Start Date End Date Josy Delacruz MD PCP - General Family Medicine 05/26/14 Imaging Aide Relationship Specialty Start Date End Date Josy Delacruz MD PCP - General Family Medicine 05/26/14 Imaging Aide Relationship Specialty Start Date End Date Josy Delacruz MD PCP - General Family Medicine 05/26/14 Imaging Aide Relationship Specialty Start Date End Date Josy Delacruz MD PCP - General Family Medicine 05/26/14 Imaging Aide Relationship Specialty Start Date End Date Josy Delacruz MD PCP - General Family Medicine 05/26/14 Imaging Aide Relationship Specialty Start Date End Date Josy Delacruz MD PCP - General Family Medicine 05/26/14 Imaging Aide Relationship Specialty Start Date End Date Josy Delacruz MD PCP - General Family Medicine 05/26/14 Team Status: Active Member Role Status Deavn Delacruz MD Primary Care Provider Active Team Status: Inactive Member Role Status Devan Delacruz MD Primary Care Provider Active Start: April 22, 2024 End: April 22, 2024 Comfort Bradshaw MD Attending Provider Active Start: April 22, 2024 End: April 22, 2024 Imaging Aide Relationship Specialty Start Date End Date Josy Delacruz MD PCP - General Family Medicine 05/26/14 Imaging Aide Relationship Specialty Start Date End Date Josy Delacruz MD PCP - General Family Medicine 05/26/14 Reason for Visit (unrecogniz ed section and content) Reason Comments Eye Exam Glaucoma Macular Degeneration Cataract Reason Comments Patient Education Reason Comments Lung Cancer Reason Comments Thoracentesis Reason Onset Date Comments Simulation Request Form 04/23/2024 Reason Comments 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 - Other Reason Comments Future Appointment 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 - Other Pacemaker Check s During XRT Reason Comments Appointment Orders Reason Comments Radiology NM Specialty Diagnoses / Procedures Referred By Contac t Referred To Contact MOLECULAR & FUNCTIONAL IMAGING Diagnoses Malignant neoplasm of unspecified part of unspecified bronchus or lung (HCC) Procedures NM PET/CT SKULL-THIGH SUBSEQUENT PET IMAGING CT ATTENUATION SKULL [place] [address] [place] [address] Phone: tel: [facility] [address] [place] [address] Phone: tel: Referral ID Status Reason Start Date Expiration Date V isits Requested Visits Authorized [id number] Closed Auto-Generate d Referral 04/26/2024 05/25/2025 1 1 Reason Onset Date Comments Med Refill 05/02/2024 Source Comments (unrecognize d section and content) In the event this informatio n is protected by the Federal Confidentiality of Alcohol and Drug Abuse Patient Records regulations: The Federal rules restrict any use of the information to criminally investigate or prosecute any alcohol or drug abuse patient.[facility] the event this information is protected by the Federal Confidentiality of Alcohol and Drug Abuse Patient Records regulations: The Federal rules restrict any use of the information to criminally investigate or prosecute any alcohol or drug abuse patient.[facility] the event this information is protected by the Federal Confidentiality of Alcohol and Drug Abuse Patient Records regulations: The Federal rules restrict any use of the information to criminally investigate or prosecute any alcohol or drug abuse patient.[facility] the event this information is protected by the Federal Confidentiality of Alcohol and Drug Abuse Patient Records regulations: The Federal rules restrict any use of the information to criminally investigate or prosecute any alcohol or drug abuse patient.[facility] Hospital[facility] the event this information is protected by the Federal Confidentiality of Alcohol and Drug Abuse Patient Records regulations: The Federal rules restrict any use of the information to criminally investigate or prosecute any alcohol or drug abuse patient.[facility] Hospital[facility] the event this information is protected by the Federal Confidentiality of Alcohol and Drug Abuse Patient Records regulations: The Federal rules restrict any use of the information to criminally investigate or prosecute any alcohol or drug abuse patient.[facility] Hospital[facility] the event this information is protected by the Federal Confidentiality of Alcohol and Drug Abuse Patient Records regulations: The Federal rules restrict any use of the information to criminally investigate or prosecute any alcohol or drug abuse patient.[facility] Hospital[facility] the event this information is protected by the Federal Confidentiality of Alcohol and Drug Abuse Patient Records regulations: The Federal rules restrict any use of the information to criminally investigate or prosecute any alcohol or drug abuse patient.[facility] Hospital[facility] the event this information is protected by the Federal Confidentiality of Alcohol and Drug Abuse Patient Records regulations: The Federal rules restrict any use of the information to criminally investigate or prosecute any alcohol or drug abuse patient.[facility] Hospital[facility] the event this information is protected by the Federal Confidentiality of Alcohol and Drug Abuse Patient Records regulations: The Federal rules restrict any use of the information to criminally investigate or prosecute any alcohol or drug abuse patient.[facility] HospitalIn the event this information is protected by the Federal Confidentiality of Alcohol and Drug Abuse Patient Records regulations: The Federal rules restrict any use of the information to criminally investigate or prosecute any alcohol or drug abuse patient.[facility] HospitalIn the event this information is protected by the Federal Confidentiality of Alcohol and Drug Abuse Patient Records regulations: The Federal rules restrict any use of the information to criminally investigate or prosecute any alcohol or drug abuse patient.[facility] HospitalIn the event this information is protected by the Federal Confidentiality of Alcohol and Drug Abuse Patient Records regulations: The Federal rules restrict any use of the information to criminally investigate or prosecute any alcohol or drug abuse patient.[facility] Goals (unrecognized section and content) Goals [...] BE BASED ON THE PRIMARY CLINICAL RECORDS. [facility]. provides no warranty or guarantee of the accuracy or completeness of information in this document.
--- NOTE | 2024-05-14 11:27 | ECG_ITS ---
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1940 Requested By: [id number] Order Number: [id number] Reading MD: RAMYA BOLAND Measurements Intervals Blanco Rate: 89 P: -[id number] MS: -[id number] QRS: -86 QRSD: 122 T: 68 QT: 398 QTc: 445 Interpretive Statements [id number] Atrial fibrillation with aberrant conduction, or ventricular premature complexes 2450 Right bundle branch block 3133 Anterior myocardial infarction, probably old 3634 Inferior myocardial infarction, age undetermined 9150 abnormal ECG Compared to ECG 03/31/2024 10:25:09 Ventricular premature complex(es) now present Aberrant conduction of supraventricular beat(s) now present Myocardial infarct finding still present Electronically Signed On 05-14-2024 12:46:10 EDT by RAMYA BOLAND
[2024-05-14] MEDS: DEXAMETHASONE SOD PHOS 10 MG/ML VIAL IV (11:41)
[2024-05-14 11:54] LABS: Hematocrit 47.4 % (42.0-54.0); Hemoglobin 14.4 g/dL (14.0-18.0); Mean Corpuscular HGB Conc 30.4 g/dL (29.9-35.2); Mean Corpuscular Hemoglobin 29.1 pg (25.9-34.0); Mean Platelet Volume 11.3 fL (9.5-13.5); Platelet Count 241 10^3/uL (150-450); Red Blood Count 4.94 10^6/uL (4.70-6.10); Red Cell Distribution Width 16.6 % (11.0-15.0); White Blood Count 8.1 10^3/uL (4.0-11.0)
[2024-05-14] MEDS: IPRATROPIUM/ALBUTEROL SULFATE 3 ML AMPUL.NEB IH ×3 (11:55→23:13)
[2024-05-14 12:04] LABS: INR 1.56; Prothrombin Time 15.8 sec (9.0-11.6)
[2024-05-14 12:12] LABS: Alanine Aminotransferase 38 U/L (16-63); Albumin Globulin Ratio 0.9; Albumin Level 3.2 g/dL (3.4-5.0); Alkaline Phosphatase 104 U/L (46-116); Anion Gap 12.2; Aspartate Amino Transferase 47 U/L (15-37); BUN Creatinine Ratio 26.3; Calcium 9.7 mg/dL (8.5-10.1); Carbon Dioxide 33.6 mmol/L (21.0-32.0); Chloride 102 mmol/L (98-107); Estimated GFR (African America >60 (>=60 mL/min/1.73m^2); Estimated GFR (Non-African Ame 50 (>=60 mL/min/1.73m^2); Globulin 3.5 g/dL; Glucose 201 mg/dL (74-106); Potassium 4.8 mmol/L (3.5-5.1); Sodium 143 mmol/L (136-145); Total Protein 6.7 g/dL (6.4-8.2)
[2024-05-14 12:13] LABS: Segmented Neut Absolute Manual 7.12 10^3/uL (1.4-6.5)
[2024-05-14 12:14] LABS: Lymphocytes Absolute Manual 0.48 10^3/uL (1.20-3.80); Metamyelocytes Absolute Manual 0.08
[2024-05-14 12:19] LABS: Lactate/Lactic Acid 3.1 mmol/L (0.4-2.0)
[2024-05-14 12:19] LABS: Influenza Virus A Antigen Negative; Influenza Virus B Antigen Negative; Internal Control Within Normal Limits; SARS-CoV-2 Ag NEGATIVE (NEGATIVE)
[2024-05-14 12:26] LABS: Base Excess ABG 5.5 mmol/L (-2.0-2.0); HCO3 ABG 32.2 mmol/L (22.0-26.0); PO2 ABG 61.8 mmHg (80.0-100.0)
[2024-05-14 12:27] LABS: Allen Test POSITIVE (POSITIVE); Fractionated Inspired Oxygen 55 %; Liters per Minute 14; O2 Mode VENTURI MASK; Oxygen Saturation ABG 86.2 %
[2024-05-14 12:28] LABS: ABG PCO2 67.8 mmHg (35.0-45.0); pH ABG 7.285 (7.350-7.450)
[2024-05-14] MEDS: FUROSEMIDE 40 MG/4 ML VIAL IVP (12:39)
--- NOTE | 2024-05-14 12:49 | ED_ITS ---
HPI HPI - General Adult General Chief complaint: Shortness of Breath/Dyspnea Stated complaint: SOB Time Seen by Provider: 05/14/24 11:11 Source: patient and family Mode of arrival: Wheelchair History of Present Illness HPI narrative: Patient presents ED complaining of shortness of breath. Patient has a history of recent diagnosis of lung cancer. He has chronic lung problems as well and has been on 3 L of nasal cannula at home. Even on his oxygen at home he came in with an oxygen saturation of 86%. We bumped him up to 6 L and it did improve him to about 93%. Patient states his shortness of breath has been worsening over the past couple of days but definitely worse today. He does have some cyanosis around his lips which the states is mostly chronic. He is speaking in short sentences but answering questions appropriately. The said she just was released from the hospital after a diagnosis of pneumonia. Patient was in the hospital last month with pneumonia as well. He denies abdominal pain nausea or vomiting. He does have lower extremity edema and states that it seems a little worse than his normal and usually goes down faster but he has been retaining fluid as well. Related Data Home Medications ?Medication ?Instructions ?Recorded ?Confirmed atorvastatin 80 mg tablet 80 mg PO DAILY 09/23/22 05/14/24 metformin 500 mg tablet 500 mg PO BID 09/23/22 05/14/24 pantoprazole 40 mg tablet,delayed 40 mg PO DAILY 09/23/22 05/14/24 release rivaroxaban 20 mg tablet (Xarelto) 20 mg PO DAILY 09/23/22 05/14/24 dorzolamide 22.3 mg-timolol 6.8 1 drp ophthalmic (eye) BID 01/10/24 05/14/24 mg/mL eye drops empagliflozin 10 mg tablet 10 mg PO DAILY 01/10/24 05/14/24 (Jardiance) latanoprost 0.005 % eye drops 1 drp ophthalmic (eye) QPM 01/10/24 05/14/24 multivitamin (Daily Multi-Vitamin 1 tab PO DAILY 01/10/24 05/14/24 tablet) omega 8-hvy-vbq-fish oil 300 1 cap PO DAILY 01/10/24 05/14/24 mg-1,000 mg capsule (Fish Oil) glimepiride 2 mg tablet 1 mg PO DAILY 03/31/24 05/14/24 carvedilol 12.5 mg tablet 25 mg PO BIDWM 05/14/24 05/14/24 spironolactone 25 mg tablet 25 mg PO QAM 05/14/24 05/14/24 Previous Rx's ?Medication ?Instructions ?Recorded amlodipine 10 mg tablet 10 mg PO DAILY #30 tabs 04/07/24 furosemide 40 mg tablet (Lasix) 40 mg PO QAM #30 tabs 04/07/24 lisinopril 20 mg tablet 20 mg PO QD #30 tabs 04/07/24 potassium chloride 10 mEq 10 meq PO BID #60 tabs 04/07/24 tablet,extended release Allergies Allergy/AdvReac Type Severity Reaction Status Date / Time No Known Drug Allergies Allergy Verified 09/23/22 06:49 Opioid HPI Opioid Management Most Recent Opioid Data: Last Pain Scale 0 04/06/24 07:35 04/06/24 Last Pain Intensity 0 04/05/24 11:34 04/05/24 Last ORT Total Score 0 03/31/24 13:42 03/31/24 Last ORT Risk Category Low Risk 03/31/24 13:42 03/31/24 Review of Systems ROS Status of ROS 10 or more systems reviewed and unremark able except as noted in history and below [facility] Medical History (Updated 05/14/24 @ 13:04 by Marjorie Bhardwaj DO) CAD (coronary artery disease) ?I25.10 - Atherosclerotic heart disease of [place] coronary artery without ang kenia pectoris (ICD-10) Pneumonia ?J18.9 - Pneumonia, unspecified organism (ICD-10) Acute on chronic systolic (congestive) heart failure ?I50.23 - Acute on chronic systolic (congestive) heart failure (ICD-10) Hypoxia ?R09.02 - Hypoxemia (ICD-10) COPD (chronic obstructive pulmonary disease) ?J44.9 - Chronic obstructive pulmonary disease, unspecified (ICD-10) Congestive heart failure ?I50.9 - Heart failure, unspecified (ICD-10) Hematuria ?R31.9 - Hematuria, unspecified (ICD-10) Atrial fibrillation ?I48.91 - Unspecified atrial fibrillation (ICD-10) CHF (congestive heart failure) ?I50.9 - Heart failure, unspecified (ICD-10) Diabetes mellitus ?E11.9 - Type 2 diabetes mellitus without complications (ICD-10) Hypertension ?I10 - Essential (primary) hypertension (ICD-10) Prostate cancer ?C61 - Malignant neoplasm of prostate (ICD-10) Surgical History (Updated 03/31/24 @ 13:37 by Pepper Hanna) Pacemaker ?Z95.0 - Presence of cardiac pacemaker (ICD-10) H/O hernia repair ?Z98.890 - Other specified postprocedural states (ICD-10) ?Z87.19 - Personal history of other diseases of the digestive system (ICD-10) H/O heart artery stent ?Z95.5 - Presence of coronary angioplasty implant and graft (ICD-10) Family History Father Family history of myocardial infarction Family history of CHF (congestive heart failure) Brother Family history of CHF (congestive heart failure) Family history of hypertension Sister Family history of cancer Social History (Updated 03/31/24 @ 13:38 by Pepper Hanna) Within the past year, how often did you have a drink containing alcohol: never Within the past year, how often did you have six or more drinks on one occasion: never Score interpretation: A score less than 4 is consistent with normal alcohol consumption. Smoking status: Former smoker Non-prescribed substance use: denies use Previous occupational history: retired Highest level of school completed/degree received: high school graduate Are you now , , , , never or living with a partner: In a typical week, how many times do you talk on the telephone with family, friends, or neighbors: 3 or more times per week How often do you get together with friends or relatives: 3 or more times per week How often do you attend mormonism or hinduism services: 4 or more times per year Do you belong to any clubs or organizations such as mormonism groups unions, fraternal or athletic groups, or school groups: no Total score: 3 Score interpretation: A score of greater than or equal to 2 indicates the lowest level of social isolation. Little interest or pleasure in doing things: not at all Feeling down, depressed, or hopeless: not at all Feel stressed/tense/nervous/anxious/difficulty sleeping: not at all Do you think of yourself as: straight/heterosexual Gender Identity: male Exam Narrative Exam Narrative: Time Seen: [] Vital Signs: [Per nurse's notes.] General: [Alert] Skin: [Warm, dry, no rash.] Head: [Normocephalic, atraumatic.] Neck: [Supple, trachea midline.] Eye: [Pupils are equal, round and reactive to light, extraocular movements are intact, normal conjunctiva.] Ears, nose, mouth and throat: oral mucosa moist. Cardiovascular: [Regular rate and rhythm, no murmur.] Respiratory: Tachypnea, mild respiratory distress. Rhonchi and crackles in bilateral bases worse on the left. Coarse breath sounds anteriorly worse on the right. Gastrointestinal: [Soft, nontender, non distended, normal bowel sounds.] MSK: 5 out of 5 muscle strength x 4 extremities no calf pain 3+ pitting edema bilateral lower extremities slightly worse on the right Psychiatric: [Cooperative, appropriate mood & affect.] Neurological: [Alert and oriented to person, place, time, and situation, no focal neurological deficit observed.] Constitutional Vital Signs, click to edit/add: Last Vital Signs Temp 97.2 F L 05/14/24 11:37 Pulse 93 H 05/14/24 12:50 Resp 20 05/14/24 11:29 BP 111/73 05/14/24 11:29 Pulse Ox 96 05/14/24 12:50 O2 Del Method Venturi Mask 05/14/24 12:09 O2 Flow Rate 14 05/14/24 12:09 FiO2 60 05/14/24 12:50 Course Vital Signs Vital signs: Vital Signs Pulse Oximetry 87 L 05/14/24 11:27 Oxygen Delivery Method Nasal Cannula 05/14/24 11:27 Oxygen Delivery Flow Rate 4 05/14/24 11:27 Temperature 97.2 F L 05/14/24 11:37 Pulse Rate 93 H 05/14/24 12:50 Respiratory Rate 20 05/14/24 11:29 Blood Pressure 111/73 05/14/24 11:29 Pulse Oximetry 96 05/14/24 12:50 Oxygen Delivery Method Venturi Mask 05/14/24 12:09 Oxygen Delivery Flow Rate 14 05/14/24 12:09 Fraction of Inspired Oxygen 60 05/14/24 12:50 Medical Decision Making MDM Narrative Medical decision making narrative: Patient has an elevated BNP at greater than 7000. Chest x-ray shows volume overload. He also has been retaining fluid in his legs. pH 7.2 pCO2 67. Patient was placed on BiPAP here in ED and was doing better with BiPAP. I did give 40 of Lasix as well. I spoke to Dr. Sahu who will admit the patient for further care. Patient did have an elevated lactate as well so we did cover with Zosyn. Patient and family are comfortable with care plan for admission. Differential Diagnosis Differential Diagnosis: Sepsis, CHF, pneumonia, flu, COVID Medical Records Medical records reviewed: Yes I reviewed the patient's medical records Lab Data Lab results reviewed: Yes I reviewed the patient's lab results Labs: Lab Results 05/14/24 05/14/24 05/14/24 Range/Units 11:30 12:00 12:19 WBC 8.1 (4.0-11.0) 10^3/uL RBC 4.94 (4.70-6.10) 10^6/uL Hgb 14.4 (14.0-18.0) g/dL Hct 47.4 (42.0-54.0) % MCV 96.0 H (80.0-94.0) fL MCH 29.1 (25.9-34.0) pg MCHC 30.4 (29.9-35.2) g/dL RDW 16.6 H (11.0-15.0) % Plt Count 241 (150-450) 10^3/uL MPV 11.3 (9.5-13.5) fL Seg Neuts % (Manual) 88.0 H (43.0-75.0) Lymphocytes % (Manual) 6.0 L (20.5-60.0) % Monocytes % (Manual) 5.0 (1.7-12.0) % Eosinophils % (Manual) 0.0 L (0.9-7.0) % Basophils % (Manual) 0.0 L (0.2-2.0) % Metamyelocytes % 1.0 Neutrophils # (Manual) 7.12 H (1.4-6.5) 10^3/uL Lymphocytes # (Manual) 0.48 L (1.20-3.80) 10^3/uL Monocytes # (Manual) 0.40 (0.30-0.80) 10^3/uL Eosinophils # (Manual) 0.00 (0.00-0.70) 10^3/uL Basophils # (Manual) 0.00 (0.00-0.10) 10^3/uL Metamyelocytes # 0.08 PT 15.8 H (9.0-11.6) sec INR 1.56 ABG pH 7.285 L* (7.350-7.450) ABG pCO2 67.8 H* (35.0-45.0) mmHg ABG pO2 61.8 L (80.0-100.0) mmHg ABG HCO3 32.2 H (22.0-26.0) mmol/L ABG O2 Saturation 86.2 % ABG Base Excess 5.5 H (-2.0-2.0) mmol/L Charles Test Positive (POSITIVE) O2 Liters/Min 14 FiO2 55 % Sodium 143 (136-145) mmol/L Potassium 4.8 (3.5-5.1) mmol/L Chloride 102 (98-107) mmol/L Carbon Dioxide 33.6 H (21.0-32.0) mmol/L Anion Gap 12.2 BUN 36.0 H (7.0-18.0) mg/dL Creatinine 1.37 H (0.70-1.30) mg/dL Est GFR ( Amer) >60 (>=60 mL/min/1.73m^2) Est GFR (Non-Af Amer) 50 L (>=60 mL/min/1.73m^2) BUN/Creatinine Ratio 26.3 Glucose 201 H (74-106) mg/dL Lactate 3.1 H* (0.4-2.0) mmol/L Calcium 9.7 (8.5-10.1) mg/dL Total Bilirubin 1.0 (0.2-1.0) mg/dL AST 47 H (15-37) U/L ALT 38 (16-63) U/L Alkaline Phosphatase 104 (46-116) U/L Troponin I High Sens 38.0 (4.0-76.1) pg/mL NT-Pro-B Natriuret Pep 7355.0 H* (<=1800.0) pg/mL Total Protein 6.7 (6.4-8.2) g/dL Albumin 3.2 L (3.4-5.0) g/dL Globulin 3.5 g/dL Albumin/Globulin Ratio 0.9 Influenza Type A Ag Negative Influenza Type B Ag Negative SARS-CoV-2 Ag (CV2AG) Negative (NEGATIVE) Imaging Data Chest x-ray: Attestation: I have reviewed the pertinent imaging results. ECG Data Attestation: I personally reviewed and interpreted this ECG as follows: Interpretation: EKG INTERPRETATION Time: [] 1123 Rate: [] 89 Rhythm: _ [] A-fib ST segments: _ [] Right bundle branch block T waves: _ [] Ectopy: _ [] P wave/FL interval: _ [] QRS interval: _ [] QT interval: _ [] Comparison: _ [] Comparison EKG date: [] Performed by: [self] Discharge Plan Discharge Chief Complaint: Shortness of Breath/Dyspnea Clinical Impression: Congestive heart failure, Respiratory distress, Hypoxia Patient Disposition: Admitted As Inpatient Time of Disposition Decision: 13:04 Condition: Serious Prescriptions / Home Meds: No Action glimepiride 2 mg tablet 1 mg PO DAILY lisinopril 20 mg Tablet 20 mg PO QD Qty: 30 11RF furosemide [Lasix] 40 mg tablet 40 mg PO QAM Qty: 30 11RF potassium chloride 10 mEq tablet extended release 10 meq PO BID Qty: 60 11RF amlodipine 10 mg tablet 10 mg PO DAILY Qty: 30 11RF spironolactone 25 mg tablet 25 mg PO QAM carvedilol 12.5 mg tablet 25 mg PO BIDWM atorvastatin 80 mg tablet 80 mg PO DAILY metformin 500 mg tablet 500 mg PO BID pantoprazole 40 mg tablet,delayed release (DR/EC) 40 mg PO DAILY Xarelto 20 mg tablet 20 mg PO DAILY omega 1-upb-kuc-fish oil [Fish Oil] 300-1,000 mg capsule 1 cap PO DAILY Jardiance 10 mg tablet 10 mg PO DAILY multivitamin [Daily Multi-Vitamin] Tablet 1 tab PO DAILY dorzolamide-timolol 22.3-6.8 mg/mL drops 1 drp OPHTHALMIC (EYE) BID Patient Comments: both eyes latanoprost 0.005 % drops 1 drp OPHTHALMIC (EYE) QPM Patient Comments: both eyes Print Language: Ukrainian Referrals: Jaxon Sahu MD [Primary Care Provider] - 1 week
--- NOTE | 2024-05-14 13:14 | P.HP_ITS ---
HPI H&P: HPI History of Present Illness Chief complaint: SOB CHF HYPOXIA RESPIRATORY DISTRESS Narrative: Patient of mine seen through the office in his home health agency, had increasing cough and shortness of breath, hypotension and was referred to the emergency room with O2 sats in the 70s, in ER found to have acute hypoxic respiratory failure with acute hypercapnia requiring BiPAP ventilation secondary to likely pneumonia and acute combined congestive heart failure When I saw patient up in the intensive care unit, very somnolent, breathing somewhat rapid, family states much more comfortable BiPAP on Opioid HPI Opioid Management Most Recent Pain and Opioid Data: Last Pain Scale 0 04/06/24 07:35 04/06/24 Last Pain Intensity 0 04/05/24 11:34 04/05/24 Last Pain Assessment 05/14/24 16:56 Last ORT Total Score 0 05/14/24 14:23 05/14/24 Last ORT Risk Category Low Risk 05/14/24 14:23 05/14/24 Review of Systems ROS Status of ROS 10 or more systems reviewed and unremark able except as noted in history and below PFSH PFSH Medical History (Updated 05/14/24 @ 13:04 by Marjorie Bhardwaj DO) CAD (coronary artery disease) ?I25.10 - Atherosclerotic heart disease of [place] coronary artery without angina pectoris (ICD-10) Pneumonia ?J18.9 - Pneumonia, unspecified organism (ICD-10) Acute on chronic systolic (congestive) heart failure ?I50.23 - Acute on chronic systolic (congestive) heart failure (ICD-10) Hypoxia ?R09.02 - Hypoxemia (ICD-10) COPD (chronic obstructive pulmonary disease) ?J44.9 - Chronic obstructive pulmonary disease, unspecified (ICD-10) Congestive heart failure ?I50.9 - Heart failure, unspecified (ICD-10) Hematuria ?R31.9 - Hematuria, unspecified (ICD-10) Atrial fibrillation ?I48.91 - Unspecified atrial fibrillation (ICD-10) CHF (congestive heart failure) ?I50.9 - Heart failure, unspecified (ICD-10) Diabetes mellitus ?E11.9 - Type 2 diabetes mellitus without complications (ICD-10) Hypertension ?I10 - Essential (primary) hypertension (ICD-10) Prostate cancer ?C61 - Malignant neoplasm of prostate (ICD-10) Surgical History (Updated 03/31/24 @ 13:37 by Pepper Hanna) Pacemaker ?Z95.0 - Presence of cardiac pacemaker (ICD-10) H/O hernia repair ?Z98.890 - Other specified postprocedural states (ICD-10) ?Z87.19 - Personal history of other diseases of the digestive system (ICD-10) H/O heart artery stent ?Z95.5 - Presence of coronary angioplasty implant and graft (ICD-10) Family History Father Family history of myocardial infarction Family history of CHF (congestive heart failure) Brother Family history of CHF (congestive heart failure) Family history of hypertension Sister Family history of cancer Social History (Updated 03/31/24 @ 13:38 by Pepper Hanna) Within the past year, how often did you have a drink containing alcohol: never Within the past year, how often did you have six or more drinks on one occasion: never Score interpretation: A score less than 4 is consistent with normal alcohol consumption. Smoking status: Former smoker Non-prescribed substance use: denies use Previous occupational history: retired Highest level of school completed/degree received: high school graduate Are you now , , , , never or living with a partner: In a typical week, how many times do you talk on the telephone with family, friends, or neighbors: 3 or more times per week How often do you get together with friends or relatives: 3 or more times per week How often do you attend quaker or samaritan services: 4 or more times per year Do you belong to any clubs or organizations such as quaker groups unions, fraternal or athletic groups, or school groups: no Total score: 3 Score interpretation: A score of greater than or equal to 2 indicates the lowest level of social isolation. Little interest or pleasure in doing things: not at all Feeling down, depressed, or hopeless: not at all Feel stressed/tense/nervous/anxious/difficulty sleeping: not at all Do you think of yourself as: straight/heterosexual Gender Identity: male Meds Home Medications and Allergies Home Medications ?Medication ?Instructions ?Recorded ?Confirmed ?Type atorvastatin 80 mg tablet 80 mg PO DAILY 09/23/22 05/14/24 History metformin 500 mg tablet 500 mg PO BID 09/23/22 05/14/24 History pantoprazole 40 mg tablet,delayed 40 mg PO DAILY 09/23/22 05/14/24 History release rivaroxaban 20 mg tablet (Xarelto) 20 mg PO DAILY 09/23/22 05/14/24 History dorzolamide 22.3 mg-timolol 6.8 1 drp ophthalmic (eye) BID 01/10/24 05/14/24 History mg/mL eye drops empagliflozin 10 mg tablet 10 mg PO DAILY 01/10/24 05/14/24 History (Jardiance) latanoprost 0.005 % eye drops 1 drp ophthalmic (eye) QPM 01/10/24 05/14/24 History multivitamin (Daily Multi-Vitamin 1 tab PO DAILY 01/10/24 05/14/24 History tablet) omega 4-qak-wfl-fish oil 300 1 cap PO DAILY 01/10/24 05/14/24 History mg-1,000 mg capsule (Fish Oil) glimepiride 2 mg tablet 1 mg PO DAILY 03/31/24 05/14/24 History amlodipine 10 mg tablet 10 mg PO DAILY #30 tabs 04/07/24 05/14/24 Rx furosemide 40 mg tablet (Lasix) 40 mg PO QAM #30 tabs 04/07/24 05/14/24 Rx lisinopril 20 mg tablet 20 mg PO QD #30 tabs 04/07/24 05/14/24 Rx potassium chloride 10 mEq 10 meq PO BID #60 tabs 04/07/24 05/14/24 Rx tablet,extended release carvedilol 12.5 mg tablet 25 mg PO BIDWM 05/14/24 05/14/24 History spironolactone 25 mg tablet 25 mg PO QAM 05/14/24 05/14/24 History Allergies Allergy/AdvReac Type Severity Reaction Status Date / Time No Known Drug Allergies Allergy Verified 09/23/22 06:49 Exam Constitutional Vital Signs, click to edit/add: Last Vital Signs Temp 97.2 F L 05/14/24 11:37 Pulse 93 H 05/14/24 12:50 Resp 20 05/14/24 11:29 BP 111/73 05/14/24 11:29 Pulse Ox 96 05/14/24 12:50 O2 Del Method Venturi Mask 05/14/24 12:09 O2 Flow Rate 14 05/14/24 12:09 FiO2 60 03/12/25 12:50 Documenting provider has reviewed patient's vital signs: yes Common normals: apparent distress (Mild respiratory distress) Respiratory Common normals: abnormal respiratory effort (Mild respiratory distress) Cardio Common normals: regular rate, regular rhythm and no murmurs GI Common normals: Normal to inspection, nondistended, normoactive bowel sounds present and soft to palpation; tender (Mild right-sided tenderness) Extremity Common normals: abnormal to inspection (3+ edema) Results Labs Labs: Short CBC 05/14/24 Range/Units 11:30 WBC 8.1 (4.0-11.0) 10^3/uL Hgb 14.4 (14.0-18.0) g/dL Hct 47.4 (42.0-54.0) % Plt Count 241 (150-450) 10^3/uL BMP 05/14/24 11:30 Sodium 143 Potassium 4.8 Chloride 102 Carbon Dioxide 33.6 H BUN 36.0 H Creatinine 1.37 H Glucose 201 H Calcium 9.7 Liver Function 05/14/24 Range/Units 11:30 Total Bilirubin 1.0 (0.2-1.0) mg/dL AST 47 H (15-37) U/L ALT 38 (16-63) U/L Alkaline Phosphatase 104 (46-116) U/L Albumin 3.2 L (3.4-5.0) g/dL ABG ABG results: 05/14/24 12:19 ABG pH 7.285 L* ABG pCO2 67.8 H* ABG pO2 61.8 L ABG HCO3 32.2 H ABG O2 Saturation 86.2 ABG Base Excess 5.5 H Assessment and Plan Assessment and Plan (1) Hypoxia: (2) Respiratory distress: (3) Congestive heart failure: Plan Admission findings: Tachycardia, acute hypercapnic respiratory failure requiring BiPAP ventilation secondary to acute combined congestive heart failure complicated by pneumonia with white blood cell count normal but left shift consistent with a bacterial process Acute combined congestive heart failure-track troponins, repeat BNP in a.m., Bumex drabigail this evening, consider repeat echo depending on progress Pneumonia with acute exacerbation of COPD, hypercapnic respiratory failure- possible nosocomial, Zosyn and linezolid, to protect kidneys going with linezolid over vancomycin Hypertension-has been hypotensive at times, will monitor closely and adjust medications as needed Diabetes mellitus-insulin sliding scale Hypercholesterolemia continue with home medications Atrial fibrillation-continue with Xarelto Admission status: Patient with acute hypercapnic respiratory failure secondary to acute combined congestive heart failure secondary to pneumonia with acute exacerbation of COPD, patient admitted to the intensive care unit, medically necessary treatment will span 2 midnights. Inpatient status.
[2024-05-14] MEDS: PIPERACILLIN SODIUM/TAZOBACTAM 3.375 GM in 0.9 % SODIUM CHLORIDE 50 ML IV ×2 (13:17→22:00)
[2024-05-14 13:55] LABS: Troponin I High Sensitivity 29.7 pg/mL (4.0-76.1)
[2024-05-14 14:35] LABS: Glucometer 189 mg/dL (74-106)
--- OUTSIDE RECORDS SUMMARY | 2024-05-14 14:35 | XMS_ITS | CCD ---
Author Organization [facility] Care Team Providers Care Accounts Executive Name Role Phone KYA EHAB Shanda Attending [...] Provider UnavailJosy David MD Primary Care Provider Josy Delacruz MD Primary Care Provider [phone] Comfort Bradshaw MD Attending Provider Comfort [...] (T2b-c or Gonzalo 7 or PSA 10-20) ([facility]ERLY [facility]) 05/23/2016 Active 24 hr metoprolol succinate 50 [...] day(s), # 2 tab(s), Refills(s) 0, Pharmacy: [facility]/pharmacy #[id number], 169, cm, 10/13/22 9:51:00 EDT, [...] disease (3 sources) Atherosclerotic heart disease of [place] coronary artery without angina pectoris; Translations: [ASHD TELLER CA W/O ANGINA PECTORIS] Onset: 04-07-2022 Chronic [...] Range Facility Office Visiton 05-05-2024 Follow-up visit [id number] Khadar Dawn 1940 M Date Provider Department Center 05/05/2024 CHRIS ARTHUR Family History Problem Relation Age of Onset Other Father Coronary artery disease Brother Other Brother Family Status - Relation Status Age at Father Brother Level of Service:67345 CT OFFICE/OUTPATIENT ESTABLISHED MOD MDM 30 MIN Reason for Visit and Comments: Atrial Fibrillation [80] - Denies bleeding on Xarelto. He is now on Toprol XL 50mg instead of Lopresser 75mg bid. Congestive Heart Failure [127] - He was admitted to [facility] last month for CHF. Normal [facility] GLUCOSE, BLOOD (POC)on 04-30 Glucose [Mass/Vol] 95 mg/dL 74 - 99 mg/dL [facility] Comment on above: Location:[facility], [address] [place] [address] , [employer], [place], [address] The Accu-Chek Inform II glucose meter has [...] blood gas instrument) in the above situations. [facility] NM PET/CT SKULL-THIGH SUBQon 04-30-2024 NM PET/CT [...] * Uptake Time: 53 minutes * Radiopharmaceutical: N54-Fywtuqskspkjnotzan (FDG) COMPARISON: No previous FDG PET/CT available [...] any questions regarding this interpretation, please call [phone]. If you are unable to reach us at the number above, please feel free to contact [facility] eRadiology at [phone]. [id number] Normal [facility] 04-25-[address] [facility] Telephone (RADTSA) KHADAR DAWN ([id number]) 1940 M Date Time Provider Department 04/25/24 [...] patient on Sunday when he is in [place]. Shazia Rooney 04/25/2024 9:44 AM Signed First [...] minutes ago (3:59 PM) Send report to [facility]. I think he will be starting [...] lung (HCC) [C34.90] Order(s):NM PET/CT SKULL-THIGH SUBSEQUENT [[id number]] Order #: [id number] FUTURE Prescriptions as of 05/05/2024 - amLODIPine [...] Encounter Status:Closed by Yanelis BRADSHAW on 04/25/24 [facility] [place]leigh 04-23-2024 CNOV Office Visit (RADTSA ) HIROKHADAR LEON ([id number]) 1940 M Date Time Provider Department 04/23/24 8:30 AM Yanelis BRADSHAW During your visit today, we recorded the following information about you: Yanelis Bradshaw MD 04/23/2024 9:36 AM Signed sim Referring Provider: Yanelis BRADSHAW [[id number]] Allergies As of Date: 04/23/2024 (No Known [...] by Yanelis BRADSHAW on 04/23/24 [facility] Office Visit (RADTSA ) KHADAR DAWN ([id number]) 1940 M Date Time Provider Department 04/23/24 8:00 AM Yanelis BRADSHAW RADLESAA During your visit today, we recorded the following information about you: Referring Provider: Yanelis BRADSHAW [[id number]] Allergies As of Date: 04/23/2024 (No Known Allergies) Date Reviewed: 04/16/2024 Reviewed by: Edyta Gilliland, AGGIE - Fully Assessed Reason for Visit: Simulation Request Form [8362] Primary Visit Diagnosis:Malignant neoplasm of lung, unspecified laterality, unspecified part of lung (HCC) [C34.90] Order(s):RADIATION TREATMENT PER RADIATION ONCOLOGIST PLAN [[id number]] Order #: [id number]: 1 PT ED CANCER [6454827] Order #: [id number]: 1 CT SIM PLANNING RADIATION ONCOLOGY [3676142] Order #: [id number] Prescriptions as of 04/23/2024 - amLODIPine (NORVASC) [...] Encounter Status:Closed by Yanelis BRADSHAW on 04/23/24 [facility] [place] 04-23-[address] [facility] Telephone (RADTSA) HIROKHADAR LEON ([id number]) 1940 M Date Time Provider Department 04/23/24 Yanelis BRADSHAW During your visit today, we recorded the following information about you: Edyta Gilliland RN 04/23/2024 2:[address] Rodriguez's office called to let us know pt was there for lab today after his visit here. They sent [employer] testing on him which takes [address] Rodriguez wanted to know if Dr Bardshaw felt an MRI or CT brain would [...] RN - Fully Assessed Reason for Visit: Purchasing Coordinator - Other [7511] Prescriptions as of 04/23/2024 - amLODIPine (NORVASC) [...] Encounter Status:Closed by EDYTA GILLILAND on 04/23/24 [facility] Telephone (RADTSA) KHADAR DAWN ([id number]) 1940 M Date Time Provider Department 04/23/24 Yanelis BRADSHAW During your visit today, we recorded the following information about you: Edyta Gilliland, RN 04/23/2024 10:22 AM Signed Call placed to [facility] [place] ([phone]). Spoke to Kristi to arrange weekly pacemaker checks. Kristi called rep from [employer] and stated he has a single chamber [...] Assessed Reason for Visit: Future Appointment [256] Purchasing Coordinator - Other [3602] Cmt: Pacemaker Checks During [...] Encounter Status:Closed by EDYTA GILLILAND on 04/24/24 [facility] CNPCayla 04-22-2024 CNPN Telephone (HEMASA) KHADAR DAWN ([id number]) 1940 M Date Time Provider Department 04/22/24 Yanelis BRADSHAW During your visit today, we recorded the following information about you: Krystle Faye 04/22/2024 8:58 AM Signed Received call from Hui at [facility] radiology asking for images from last Chest XR be pushed over. Patient is there for thoracentesis and the radiologist is not seeing any fluid. I let her know his last XR chest was done at [facility], and the one before that was at [place]. She will call there for images. She [...] Encounter Status:Closed by KRYSTLE FAYE on 04/23/24 [facility] US guide or thoracentesison 04-22-2024 US guide or thoracentesis [facility] Main [address] [address] Ultrasound Report Signed Patient: Khadar Dawn MR#: [id number] : 1940 Acct:[id number] Age/Sex: 84 / M ADM Date: 04/22/24 Loc: Room: Type: [facility] Attending Dr: Comfort Bradshaw MD Ordering Provider: Yanelis Bradshaw MD Date of Service: 04/22/24 US/US guide or thoracentesis: THORA Copies to: Yanelis Bradshaw MD ULTRASOUND-GUIDED THORACENTESIS INDICATION: REPORTED EFFUSION COMPARISON: NONE US/US guide or thoracentesis FINDINGS/IMPRESSION: ULTRASOUND LEFT CHEST WALL DEMONSTRATE NO FLUID COLLECTION. PROCEDURE NOT PERFORMED. Impression dictated by: Hal Mojica M.D.04/22/2024 2:57 PM Dictation Location: [place] [address] Tech: Javier Vidal Transcribed By: QING 04/22/241456 Dictated By: Hal Mojica MD 04/22/241455 Signed By: 04/22/24 145 Normal [facility] [place] 04-21-[address] [facility] Telephone (NCCAP) KHADAR DAWN ([id number]) 1940 M Date Time Provider Department 04/21/24 Yanelis BRADSHAW During your visit today, we recorded the following information about you: Romi Faust 04/21/2024 8:35 AM Signed Erich from Dr. Rodriguez's office called asking for past progress notes for the patient. He stated that the patient was referred and they have not received any information. Please fax records to [phone]. Krystle Faye 04/21/2024 3:36 PM Signed Consult [...] Encounter Status:Closed by KRYSTLE FAYE on 04/21/24 [facility] CNOVon 04-16-2024 CNOV Office Visit (RADTSA ) KHADAR DAWN ([id number]) 1940 M Date Time Provider Department 04/16/24 [...] Laterality D (more content not included)... Normal [facility]app2you[facility] KHADAR DAWN ([id number]) 1940 M Date Time Provider Department 04/16/24 Yanelis BRADSHAW During your visit today, we recorded the following information about you: Rojelio Guajardo RN 04/16/2024 2:37 PM Signed PSS/RT: Please schedule [facility] IR for thoracentis return for sim after treating lung no contrast 15 treatments, no concurrent chemo Need presim consent Nurse ed today Consult with Dr. Ponce to establish care with local server programmer. 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 Thanks AGGIE Jimenez Jodi 04/17/2024 9:08 AM Signed Waiting on orders to be signed to fax to IR [facility] Rojelio Guajardo RN 04/18/2024 9:54 AM Signed Order is signed. Please arrange thoracentesis appt lizette. Thanks AGGIE Jimenez Trisha 04/18/2024 11:26 AM Signed Everything is faxed to [facility] for Shazia Perez and I will check with [facility] daily to see when scheduled [...] an appointment. All info was faxed to [phone] Will follow up to see when appt is scheduled Shazia Britton 04/18/2024 3:08 PM Signed Patient scheduled at [facility] on 04/22 at 9am. Arrive at 8am [...] and records to DR. Ponce office at [phone]. He is having a thoracentesis on 04/22. She would like records faxed and images pushed of those as well. Thanks so much Shazia Rooney 04/21/2024 2:25 PM Signed Referral was sent to Jesus and Alex offices. Confirmed patient to be scheduled in [place] with Dr. Ponce on 04/23 at 3pm. [...] Order(s):BODY FLUID CELL COUNT [SQCCBF] Order #: [id number] FUTURE GLUCOSE, BODY FLUID [SQBFGLUC] Order #: [id number] FUTURE LACTATE DEHYDROGENASE, BODY FLUID [SQBFLDH] Order #: [id number] FUTURE PH BODY FLUID [SQFLPH] Order #: [id number] FUTURE AFB CULTURE AND STAIN [SQAFC] Order #: [id number] FUTURE BACTERIAL CULTURE AND GRAM STAIN, STERILE BODY FLUID [SQBFCUL] Order #: [id number] FUTURE CYTOLOGY NON-REMEDIATION BIOANALYTICS CONSULTANT [MIH5202] Order #: [id number] FUTURE Prescriptions as of 04/28/2024 - amLODIPine [...] mg by (more content not included)... Normal [facility] KHADAR DAWN ([id number]) 1940 M Date Time Provider Department 04/15/24 Yanelis BRADSHAW [facility] During your visit today, we recorded the following information about you: Romi Faust 04/15/2024 8:[address] Lane's office called requesting progress notes from the past 12 months. Please fax to [phone]. They are requesting this today as he [...] Status:Closed by KRYSTLE FAYE on 04/21/[address] [facility] HISTOLOGY - TISSUE EXAMon LAB AP CASE REPORT Normal [facility] Comment on above: Result Comment: Surg ical Pathology Case: [id number] Authorizing Provider: Cara Perez MD Collected: 04/09/2024 1150 Ordering Location: [facility] Main Operating Room Received: 04/09/2024 1256 Pathologist: Brit Grimes MD Specimen: Lung, Left Upper Lobe, OUMAR MASS BX Performed By: #### L [id number] ####[facility] ([facility])[address] [place] [address] LAB AP CLINICAL INFORMATION Order Diagnoses [facility] Comment on above: Result Comment: R91. 8 - Lung mass [ICD-10-CM] J43.2 - Centrilobular emphysema (CMS/HCC) [ICD-10-CM] J96.11 - Chronic hypoxic respiratory failure (CMS/HCC) [ICD-10-CM] Performed By: #### L [id number] ####[facility] ([facility])[address] [place] [address] LAB AP DIAGNOSIS COMMENT [facility] Comment on above: Result Comment: Ther e is scant tumor in the tissue block, insufficient for further testing. Performed By: #### L [id number] ####[facility] ([facility])[address] [place] [address] LAB AP GROSS DESCRIPTION [facility] Comment on above: Result Comment: A. L rudolph, Left Upper Lobe. Part A is received in formalin labeled Khadar Vollmar and OUMAR mass biopsy . It consists of multiple platt-red, irregular pieces of soft tissue measuring 1.0 x 0.5 x 0.2 cm in aggregate. The specimen is submitted in toto in 1 cassette. Lilliam Hitchcock, Pathologists' Sap Portal Architect student Herb Reynoso, Pathologists' Sap Portal Architect Performed By: #### L [id number] ####[facility] ([facility])[address] [place] [address] LAB AP MICROSCOPIC DESCRIPTION Microscopic examination performed. [facility] Comment on above: Performed By: #### L [id number] ####[facility] ([facility])[address] [place] [address] LAB AP REPORT FINAL DIAGNOSIS NARRATIVE [facility] Comment on above: Result Comment: A. L rudolph, left upper lobe, biopsy: - Sclerotic lung and blood clot with rare strips of malignant glandular cells. - See concurrent cytology report, [id number]. Performed By: #### L [id number] ####[facility] (BE[facility])[address] [facility] [address] NON-REMEDIATION BIOANALYTICS CONSULTANT CYTOLOGY - CELLULAR EXAMon 04-09-2024 LAB AP CASE REPORT Normal [facility] Comment on above: Result Comment: Non- gynecologic Cytology Case: [id number] Authorizing Provider: Cara Perez MD Collected: 04/09/2024 1139 Ordering Location: [facility] Main Operating Room Received: 04/09/2024 1215 Pathologist: Aaron Shea MD Specimens: A) - Lung, Left Upper Lobe, OUMAR MASS B) - Bronchial washing, left upper lobe, OUMAR BAL C) - Lymph Node Station 7, LN STATION 7 FNA Performed By: #### L [id number] #### [facility] ([facility]) [address] [place] [address] LAB AP CLINICAL INFORMATION PET-avid left apical lung mass (3.4 cm) with multiple, smaller left upper lobe lung nodules, mediastinal adenopathy, former smoker [facility] Comment on above: Performed By: #### L [id number] #### [facility] ([facility]) [address] [place] [address] LAB AP DIAGNOSIS COMMENT [facility] Comment on above: Result Comment: See also concurrent surgical case, [id number]. There is scant tumor present in the cell block of part A. Performed By: #### L [id number] #### [facility] [address] [place] [address] LAB AP GROSS DESCRIPTION [facility] Comment on above: Result Comment: A. 4 air-dried slides, 3 alcohol-fixed slides, 30 mL CytoLyt with hazy red fluid and clots B. 17 mL cloudy, red fluid with clots C. 30 mL CytoLyt with clear, pale pink fluid with red/white flecks Performed By: #### L [id number] #### [facility] (BE[facility]ER) [address] [place] [address] LAB AP INTRAOPERATIVE CONSULTATION [facility] Comment on above: Result Comment: A. [...] submitted.* Performed By: #### L [id number] #### [facility] ([facility]) [address] [place] [address] LAB AP MICROSCOPIC DESCRIPTION [facility] Comment on above: Result Comment: A. [...] cells. Performed By: #### L [id number] #### [facility] ([facility]) [address] [place] [address] LAB AP REPORT FINAL DIAGNOSIS NARRATIVE Normal [facility] Comment on above: Result Comment: A. 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 Lung, left upper lobe, bronchial washing: - Adenocarcinoma C. Lymph Node, Station 7, EBUS-guided fine needle aspiration: - Negative for metastatic malignancy. - Cellular evidence of a lymph node. - Scant lymphoid component. Performed By: #### L [id number] #### [facility] ([facility]) [address] [place] [address] NURSNOTEon 04-09-2024 NURSNOTE Report to Emi MARCIAL Normal [facility] POCT GLUCOSE METER UNSOLICIT ED RESULTSon 04-09-2024 Glucose [Mass/Vol] 88 mg/dL Normal 70-105 Univer sity [facility] Comment on above: Order Comment: Waive d Testing in the ED is performed under the ED CLIA certificate #[id number]. Result Comment: ltol les Performed By: #### L [id number] #### [facility] (BEAKER) [address] [place] [address] Prep for Procedureon 025 Prep for Procedure [id number] Khadar Dawn 1940 M Date Provider Department Center 04/09/2024 [facility] Family History Problem Relation Age of Onset Other Father Coronary artery disease Brother Other Brother Family Status - Relation Status Age at Father Brother [facility] Abstracton 03-31-2024 Abstract [id number] Khadar Dawn 1940 M Date Provider Department Center 03/31/2024 CARA GONZALES [facility] ONC DCC Family History Problem Relation Age of Onset Other Father Coronary artery disease Brother Other Brother Family Status - Relation Status Age at Father Brother [facility] 36on 03-25-2024 36 Per patient's , Dr. Perez's office is requesting cardiac clearance prior to lung biopsy. I'm assuming they'd like him to hold Xarelto but it doesn't say in Dr. Perez's office note. You saw him in clinic 2 weeks ago. Please advise. Thanks. [facility] 29on 03-20-2024 29 Addended by: CARA PEREZ on: 03/27/2024 01:27 PM Modules accepted: Orders [facility] HPon 03-20-2024 HP --- Attestation signed by Cara Perez MD at 03/21/2024 11:55 AM I have seen and examined the patient. I reviewed the resident/fellow note and I agree with the findings and plan. Cara Perez MD Interventional Pulmonary Medicine Pulmonary and Critical Care Medicine [facility] Visit Note Patient: Khadar Dawn Age: 84 y.o. : 1940 Account No.: [id number] Referring physician: Dr. Delacruz Chief complaint: Lung [...] CARDIOVASCULAR: Re (more content not included)... Normal [facility] Office Visiton 03-20-2024 Follow-up visit [id number] Khadar Dawn 1940 [facility] Provider Department Center 03/20/2024 383-CARA PEREZ [facility] ONC DCC Family History Problem Relation Age of Onset Other Father Coronary artery disease Brother Other Brother Family Status - Relation Status Age at Father Brother Level of Service:75608 CT OFFICE/OUTPATIENT NEW MODERATE MDM 45 MINUTES () Reason for Visit and Comments: New Patient [632] - Lung mass; abnormal PET SCAN, needs biopsy Normal [facility] 36on 03-10-2024 36 Regarding lab result s from 02/25/2024: MD Kristi Horvath MA Good lipids and BMP. Continue current medications. Recheck lipids and AST ALT in 6 months Patient has follow up today with Dr. Dixon. Normal [facility] Office Visiton 03-10-2024 Follow-up visit [id number] Khadar Dawn 1940 [facility] Provider Department Center 03/10/2024 [id number] DIXON [facility] Alex [facility] Family History Problem Relation Age of Onset Other Father Coronary artery disease Brother Other Brother Family Status - Relation Status Age at Father Brother Level of Service:18105 CT OFFICE/OUTPATIENT NEW MODERATE MDM 45 MINUTES Reason for Visit and Comments: Wound Check [735025] - S/p PPM implant on 03/03/[address] Rivas. Says he was not given RX for antibiotic. Normal [facility] CBCon 12-30-2024 Erythrocyte distribution width (RBC) [Ratio] 17.1 % High 11.5-15.0 [facility] Comment on above: Performed By: #### L [id number] ####[facility] [place] [address] ERYTHROCYTE MEAN CORPUSCULAR HEMOGLOBIN CONCENTRATION (G/DL) BY AUTOMATED 31.8 g/dL Low 32.0-35.0 [facility] Comment on above: Performed By: #### L [id number] ####[facility] [place] [address] Hematocrit (Bld) [Volume fraction] 47.8 % Normal 39.0-55.0 [facility] Comment on above: Performed By: #### L [id number] ####[facility] ([facility]AK[facility])[address] [place] [address] Hemoglobin (Bld) [Mass/Vol] 15.2 g/dL Normal 13.0-17.0 [facility] Comment on above: Performed By: #### L [id number] ####[facility] ([facility])[address] [place] [address] MCH (RBC) [Entitic mass] 29.5 pg Normal 27.0-33.0 [facility] Comment on above: Performed By: #### L [id number] ####[facility] ([facility])[address] [place] [address] MCV (RBC) [Entitic vol] 92.6 fL Normal 82.0-98.0 [facility] Comment on above: Performed By: #### L [id number] ####[facility] ([facility])[address] [place] [place] [address] PLATELETS (10*3/UL) IN BLOOD AUTOMATED COUNT 257 10*3/uL Normal 150-400 [facility] Comment on above: Performed By: #### L [id number] ####[facility] ([facility])[address] [place] [address] RBC (Bld) [#/Vol] 5.16 10*6/uL Normal 4.20-5.70 [facility] Comment on above: Performed By: #### L [id number] ####[facility] ([facility])[address] [place] [place] [address] WBC (Bld) [#/Vol] 13.41 10*3/uL High 4.00-10.60 [facility] Comment on above: Performed By: #### L [id number] ####[facility] ([facility])[address] [place] [address] HPon 03-03-2024 [facility] Cardiology [facility] HPI Khadar Dawn is a 84 y.o. year old male patient being seen for Hospital Follow-up (He was admitted to [facility] last month for CHF. Say he's [...] On Coreg, sylvie (more content not included)... [facility] NURSNOTEon 03-03-2024 NURSNOTE RN educated pt [...] off of unit with all of belongings. [facility] NURSNOTE CHG wipes and betadi ne nasal swabs completed. [facility] 36on 02-25-2024 36 Patient was informed of message from Dr Rivas. Patient was not pleased with having a PPM put in and will need to think about that. Catherine BRADLEY [facility] [address] 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 Order placed. Waiting for patient to call me back so I can inform him. He had lipids drawn this morning, and I was able to add on BMP. [facility] Orders Onlyon 02-25-2024 Orders Only [id number] Khadar Dawn Berry 1940 M Date Provider Department Center 02/25/2024 KRISTI CORNELL Family History Problem Relation Age of Onset Other Father Coronary artery disease Brother Other Brother Family Status - Relation Status Age at Father Brother [facility] Documentationon 02-22-2024 Documentation [id number] KayvashirinKhadar Smart 1940 M Date Provider Department Center 02/22/2024 CHRIS ARTHUR [facility] Family History Problem Relation Age of Onset Other Father Coronary artery disease Brother Other Brother Family Status - Relation Status Age at Father Brother Normal [facility] Office Visiton 02-08-2024 Follow-up visit [id number] LópezKhadar Smart 1940 M Date Provider Department Center 02/08/2024 CHRIS ARTHUR Family History Problem Relation Age of Onset Other Father Coronary artery disease Brother Other Brother Family Status - Relation Status Age at Father Brother Level of Service:50937 CT OFFICE/OUTPATIENT ESTABLISHED MOD MDM 30 MIN Reason for Visit and Comments: Hospital Follow-up [832] - He was admitted to [facility] last month for CHF. Say he's feeling much better s/p discharge. Coronary Artery Disease [187] - Denies chest pain. Congestive Heart Failure [127] - Denies SOB, and LE edema resolves by morning. Using O2 at nighttime. Atrial Fibrillation [80] - Denies palpitations, lightheadedness/syncope , and bleeding on Xarelto. Hypertension [887877] Hyperlipidemia [182] Normal [facility] Optical coherence tomography study reporton 11-27-2023 [facility] Radiology Study observation (narrative) [facility] Perimetry studyon 11-27-2023 [facility] Radiology Study observation (narrative) [facility] Urology Office/Clinic Noteon 10-19-2023 Urology Office/Clinic Note Urology Office/Clinic Note Chief Complaint 1 year follow up HPI Staff 1 yr w/ PSA. Dx: BPH with obstruction, hx of prostate cancer *Brachytherapy 2014*, nocturia, renal cyst, gross hematuria. *No urological meds NEG FISH/cytol 10/13/22. S/p Cysto 10/17/22. TAYLA done 10/19/22 at [facility] - results given over the phone. [...] hematuria (R31.0: Gross hematuria) Pt presented to [facility] ER 09/23/22 with gross hematuria. Only for one day. Neg urine culture. S/p cysto 10/17/22 ~neg for b.t. or lesions. Typical telangiectatic radiation changes. FISH/cytol neg. Renal US 10/19/22 [facility] - Small bladder diverticulum. UA today shows trace-intact blood. Denies recurrence of gross hematuria. -Call if gross blood recurs 4. Renal cyst (N28.1: Cyst of kidney, acquired) CT AP w/o con 09/23/22 - several adjacent cysts inferior of the Rt kidney measuring up to 8.5 cm. Renal US 10/19/22 [facility] - bilateral renal cysts favoring benign etiology, also seen on prior MRI and CT studies. -No follow up required Follow-up With When Contact Information ALFIE WISE, Yousuf Barroso, [place] [id number]- Additional Instructions: 1 year w/ PSA Patient [...] Oral Allergie (more content not included)... Normal [facility] Comment on above: Result Comment: Elec tronically Signed By: Yousuf JUDGE MD\.br\Date and Time Signed: 10/19/23 11:20 EDT\.br\Electronically Co-Signed By: Lianet Massey.br\Date and Time Co-Signed: 10/19/23 11:19 EDT Office Visiton 09-25-2023 Follow-up visit [id number] Khadar Dawn 1940 M Date Provider Department Center 09/25/2023 JACKY ESQUIVEL [facility] Family History Problem Relation Age of Onset Other Father Coronary artery disease Brother Other Brother Family Status - Relation Status Age at Father Brother Level of Service:34912 CT OFFICE/OUTPATIENT ESTABLISHED LOW MDM 20 MIN Reason for Visit and Comments: Coronary Artery Disease [187] Atrial Fibrillation [80] Normal [facility] CBC AUTO DIFFon 04-20-2022 BASO # 0.0 103/ul Normal 0.0-0.1 [facility] Comment on above: Performed By: #### C BC #### [facility] [address] [address] [address] Nic Marie Basophils/100 WBC (Bld) 0.5 % Normal 0.2-2.0 [facility] Comment on above: Performed By: #### C BC #### [facility] [address] [place], [place] [address] Dr. Nic Marie EO # 0.7 103/ul Normal 0.0-0.7 [facility] Comment on above: Performed By: #### C BC #### [facility] [address] [place] [address] Dr. Nic Marie Eosinophils/100 WBC (Bld) 8.8 % Critically high 0.9-7.0 [facility] Comment on above: Performed By: #### C BC #### [facility] [address] [place] [address] Dr. Nic Marie Erythrocyte distribution width (RBC) [Ratio] 18.0 % Critically high 11.0-15.0 [facility] Comment on above: Performed By: #### C BC #### [facility] [address] [place] [address] Dr. Nic Marie Hematocrit (Bld) [Volume fraction] 44.3 % Normal 42.0-54.0 [facility] Comment on above: Performed By: #### C BC #### [facility] [address] [place] [address] Dr. Nic Marie Hemoglobin (Bld) [Mass/Vol] 13.6 g/dL Critically low 14.0-18.0 [facility] Comment on above: Performed By: #### C BC #### [facility] [address] [place] [address] Dr. Nic Marie IG # 0.05 10e3/ul Critically high 0.00-0.03 [facility] Comment on above: Performed By: #### C BC #### [facility] [address] [place] [address] Dr. Nic Marie IG % 0.6 % Critically high 0.0-0.5 [facility] Comment on above: Performed By: #### C BC #### [facility] [address] [place] [address] Dr. Nic Marie LYMPH # 0.8 103/ul Critically low 1.2-3.8 [facility] Comment on above: Performed By: #### C BC #### [facility] [address] [place] [address] Dr. Nic Marie Lymphocytes/100 WBC (Bld) 10.7 % Critically low 20.5-60.0 [facility] Comment on above: Performed By: #### C BC #### [facility] [address] [place] [address] Dr. Nic Marie MANUAL DIFF REQ NO Normal [facility] Comment on above: Performed By: #### C BC #### [facility] [address] [place] [address] Dr. Nic Marie MCH (RBC) [Entitic mass] 24.9 pg Critically low 25.9-34.0 [facility] Comment on above: Performed By: #### C BC #### [facility] [address] [place] [address] Dr. Nic Marie MCHC (RBC) [Mass/Vol] 30.7 g/dL Normal 29.9-35.2 [facility] Comment on above: Performed By: #### C BC #### [facility] [address] [place] [address] Dr. Nic Marie MCV (RBC) [Entitic vol] 81.0 fL Normal 80.0-94.0 [facility] Comment on above: Performed By: #### C BC #### [facility] [address] [place] [address] Dr. Nic Marie MONO # 0.9 103/ul Critically high 0.3-0.8 [facility] Comment on above: Performed By: #### C BC #### [facility] [address] [place] [address] Dr. Nic Marie Monocytes/100 WBC (Bld) 11.1 % Normal 1.7-12.0 [facility] Comment on above: Performed By: #### C BC #### [facility] [address] [place] [address] Dr. Nic Marie NEUT # 5.3 103/ul Normal 1.4-6.5 [facility] Comment on above: Performed By: #### C BC #### [facility] [address] [place] [address] Dr. Nic Marie Neutrophils/100 WBC (Bld) 68.3 % Normal 43.0-75.0 [facility] Comment on above: Performed By: #### C BC #### [facility] [address] [address] [address] Nic Marie Platelet mean volume (Bld) [Entitic vol] 10.0 fL Normal 9.5-13.5 [facility] Comment on above: Performed By: #### C BC #### [facility] [address] [place] [address] Dr. Nic Marie PLT 203 103/ul Normal 150-[address] [facility] Comment on above: Performed By: #### C BC #### [facility] [address] [place] [address] Dr. Nic Marie RBC 5.47 106/ul Normal 4.70-6.10 [facility] Comment on above: Performed By: #### C BC #### [facility] [address] [place] [address] Dr. Nic Marie WBC 7.8 103/ul Normal 4.0-11.0 [facility] Comment on above: Performed By: #### C BC #### [facility] [address] [place] [address] Dr. Nic Marie LIPID PROFILEon 04-20-2022 CHOL-HDL RATIO NORM SEE BELOW Normal [facility] Comment on above: Result Comment: 3.3 - 4.4 LOW RISK 4.4 - 7.1 AVERAGE RISK 7.1 - 11.0 MODERATE RISK >11.0 HIGH RISK Performed By: #### C MP, LIPID #### [facility] [address] [place] [address] Dr. Nic Marie Cholesterol [Mass/Vol] 108 mg/dL Normal <=[address] [facility] Comment on above: Performed By: #### C MP, LIPID #### [facility] [address] [place] [address] Dr. Nic Marie Cholesterol in HDL [Mass/Vol] 36 mg/dL Critically low 40-60 [facility] Comment on above: Performed By: #### C MP, LIPID #### [facility] [address] [place] [address] Dr. Nic Marie Cholesterol in LDL [Mass/Vol] 54.2 mg/dL Normal [facility] Comment on above: Performed By: #### C MP, LIPID #### [facility] [address] [address] [address] Nic Marie Cholesterol.total/C holesterol in HDL [Mass ratio] 3.0 {ratio} Normal [facility] Comment on above: Performed By: #### C MP, LIPID #### [facility] [address] [address] [address] Nic Marie HDL NORMAL > or = 60 mg/dl - LO W CARDIOVASCULAR RISK <40 mg/dl - HIGH CARDIOVASCULAR RISK Normal [facility] Comment on above: Performed By: #### C MP, LIPID #### [facility] [address] [address] [address] Nic Marie LDL CALC NORMAL SEE BELOW Normal [facility] Comment on above: Result Comment: <100 mg/dl OPTIMAL 100 - 129 mg/dl NEAR OR ABOVE OPTIMAL 130 - 159 mg/dl BORDERLINE HIGH 160 - 189 mg/dl HIGH >190 mg/dl VERY HIGH Performed By: #### C MP, LIPID #### [facility] [address] [address] [address] Nic Marie Triglyceride [Mass/Vol] 89 mg/dL Normal <=150 [facility] Comment on above: Performed By: #### C MP, LIPID #### [facility] [address] [address] [address] Nic Marie VLDL CALC 17.8 mg/dL Normal [facility] Comment on above: Performed By: #### C MP, LIPID #### [facility] [address] [address] [address] Nic Marie PROF 14(COMP METB)on 023 Albumin [Mass/Vol] 3.7 g/dL Normal 3.4-5.0 [facility] Comment on above: Performed By: #### C MP, LIPID #### [facility] [address] [address] [address] Nic Marie Albumin/Globulin [Mass ratio] 1.0 {ratio} Normal [facility] Comment on above: Performed By: #### C MP, LIPID #### [facility] [address] [address] [address] Nic Marie ALP [Catalytic activity/Vol] 59 U/L Normal 46-116 [facility] Comment on above: Performed By: #### C MP, LIPID #### [facility] [address] [address] [address] Nic Marie ALT [Catalytic activity/Vol] 28 U/L Normal 16-63 [facility] Comment on above: Performed By: #### C MP, LIPID #### [facility] [address] [address] [address] Nic Marie Anion gap [Moles/Vol] 12.1 mmol/L Normal [facility] Comment on above: Performed By: #### C MP, LIPID #### [facility] [address] [place] [address] Dr. Nic Marie AST [Catalytic activity/Vol] 18 U/L Normal 15-37 [facility] Comment on above: Performed By: #### C MP, LIPID #### [facility] [address] [address] [address] Nic Marie Bilirubin [Mass/Vol] 0.6 mg/dL Normal 0.2-1.0 [facility] Comment on above: Performed By: #### C MP, LIPID #### [facility] [address] [address] [address] Nic Marie Calcium [Mass/Vol] 9.6 mg/dL Normal 8.5-10.1 [facility] Comment on above: Performed By: #### C MP, LIPID #### [facility] [address] [address] [address] Nic Marie Chloride [Moles/Vol] 104 mmol/L Normal 98-107 [facility] Comment on above: Performed By: #### C MP, LIPID #### [facility] [address] [address] [address] Nic Marie CO2 [Moles/Vol] 30.3 mmol/L Normal 21.0-32.0 [facility] Comment on above: Performed By: #### C MP, LIPID #### [facility] [address] [address] [address] Nic Marie Creatinine [Mass/Vol] 0.99 mg/dL Normal 0.70-1.30 [facility] Comment on above: Performed By: #### C MP, LIPID #### [facility] [address] [place] [address] Dr. Nic Marie EGFR-AF UZBEK >60 Normal >=60 [facility] Comment on above: Performed By: #### C MP, LIPID #### [facility] [address] [address] [address] Nic Marie EGFR-NON AF UZBEK >60 Normal >=60 [facility] Comment on above: Performed By: #### C MP, LIPID #### [facility] [address] [place] [address] Dr. Nic Marie Globulin (S) [Mass/Vol] 3.6 g/dL Normal [facility] Comment on above: Performed By: #### C MP, LIPID #### [facility] [address] [address] [address] Nic Marie Glucose [Mass/Vol] 114 mg/dL Critically high 74-106 [facility] Comment on above: Performed By: #### C MP, LIPID #### [facility] [address] [place] [address] Dr. Nic Marie Potassium [Moles/Vol] 4.4 mmol/L Normal 3.5-5.1 [facility] Comment on above: Performed By: #### C MP, LIPID #### [facility] [address] [address] [address] Nic Marie Protein [Mass/Vol] 7.3 g/dL Normal 6.4-8.2 [facility] Comment on above: Performed By: #### C MP, LIPID #### [facility] [address] [address] [address] Nic Marie Sodium [Moles/Vol] 142 mmol/L Normal 136-145 [facility] Comment on above: Performed By: #### C MP, LIPID #### [facility] [address] [address] [address] Nic Marie Urea nitrogen [Mass/Vol] 23.0 mg/dL Critically high 7.0-18.0 [facility] Comment on above: Performed By: #### C MP, LIPID #### [facility] [address] [address] [address] Nic Marie Urea nitrogen/Creatinine [Mass ratio] 23.2 mg/mg Normal [facility] Comment on above: Performed By: #### C MP, LIPID #### [facility] [address] [address] [address] Nic Marie PROF CHEM 8 (BAS METB)on Anion gap [Moles/Vol] 13.0 mmol/L Normal [facility] Comment on above: Performed By: #### P SAD #### [facility] [address] [place] [address] Dr. Nic Marie Calcium [Mass/Vol] 9.0 mg/dL Normal 8.5-10.1 [facility] Comment on above: Performed By: #### P SAD #### [facility] [address] [place] [address] Dr. Nic Marie Chloride [Moles/Vol] 100 mmol/L Normal 98-107 [facility] Comment on above: Performed By: #### P SAD #### [facility] [address] [place] [address] Dr. Nic Marie CO2 [Moles/Vol] 27.2 mmol/L Normal 21.0-32.0 [facility] Comment on above: Performed By: #### P SAD #### [facility] [address] [place] [address] Dr. Nic Marie Creatinine [Mass/Vol] 1.18 mg/dL Normal 0.70-1.30 [facility] Comment on above: Performed By: #### P SAD #### [facility] [address] [place] [address] Dr. Nic Marie EGFR-AF UZBEK >60 Normal >=60 [facility] Comment on above: Performed By: #### P SAD #### [facility] [address] [address] [address] Nic Marie EGFR-NON AF UZBEK =60 Normal >=60 [facility] Comment on above: Performed By: #### P SAD #### [facility] [address] [address] [address] Nic Marie Glucose [Mass/Vol] 238 mg/dL Critically high 74-106 [facility] Comment on above: Performed By: #### P SAD #### [facility] [address] [address] [address] Nic Marie Potassium [Moles/Vol] 4.2 mmol/L Normal 3.5-5.1 [facility] Comment on above: Performed By: #### P SAD #### [facility] [address] [place] [address] Dr. Nic Marie Sodium [Moles/Vol] 136 mmol/L Normal 136-145 [facility] Comment on above: Performed By: #### P SAD #### [facility] [address] [place] [address] Dr. Nic Marie Urea nitrogen [Mass/Vol] 30.0 mg/dL Critically high 7.0-18.0 [facility] Comment on above: Performed By: #### P SAD #### [facility] [address] [place] [address] Dr. Nic Marie Urea nitrogen/Creatinine [Mass ratio] 25.4 mg/mg Normal [facility] Comment on above: Performed By: #### P SAD #### [facility] [address] [place] [address] Dr. Nic Marie CBC W MANUAL DIFFon 05-05-19 22 ANISOCYTOSIS SLIGHT Normal [facility] Comment on above: Performed By: #### C BCMAN #### [facility] [address] [place] [address] Dr. Nic Marie ATYPICAL LYMPH # Normal [facility] Comment on above: Performed By: #### C DAMIAN #### [facility] [address] [place] [address] Dr. Nic Marie ATYPICAL LYMPH % Normal [facility] Comment on above: Performed By: #### C BCMAN #### [facility] [address] [place] [address] Dr. Nic Marie BAND # Normal 0.0-0.3 [facility] Comment on above: Performed By: #### C BCMAN #### [facility] [address] [place] [address] Dr. Nic Marie BAND % Normal 0-[address] [facility] Comment on above: Performed By: #### C BCMAN #### [facility] [address] [place] [address] Dr. Nic Marie BASOM # 0.15 103/ul Critically high 0.00-0.[address] [facility] Comment on above: Performed By: #### C BCMAN #### [facility] [address] [place] [address] Dr. Nic Marie BASOM % 1.0 % Normal 0.2-2.0 [facility] Comment on above: Performed By: #### C BCMAN #### [facility] [address] [place] [address] Dr. Nic Marie BLAST # Normal [facility] Comment on above: Performed By: #### C BCMAN #### [facility] [address] [place] [address] Dr. Nic Marie BLAST % Normal [facility] Comment on above: Performed By: #### C BCSALINA #### [facility] [address] [place] [address] Dr. Nic Marie CORRECTED WBC Normal 4.0-11.0 [facility] Comment on above: Performed By: #### C BCMAN #### [facility] [address] [place] [address] Dr. Nic Marie EOS # 0.73 103/ul Critically high 0.00-0.[address] [facility] Comment on above: Performed By: #### C BCMAN #### [facility] [address] [place] [address] Dr. Nic Marie EOS% 5.0 % Normal 0.9-7.0 [facility] Comment on above: Performed By: #### C DAMIAN #### [facility] [address] [address] [address] Nic Marie HCT 38.1 % Critically low 42.0-54.0 [facility] Comment on above: Performed By: #### C DAMIAN #### [facility] [address] [address] [address] Nic Marie HGB 10.4 g/dl Critically low 14.0-18.0 [facility] Comment on above: Performed By: #### C DAMIAN #### [facility] [address] [address] [address] Nic Marie HYPOCHROMASIA SLIGHT Normal [facility] Comment on above: Performed By: #### C DAMIAN #### [facility] [address] [address] [address] Nic Marie LYMPHM # 0.58 103/ul Critically low 1.20-3.80 [facility] Comment on above: Performed By: #### C DAMIAN #### [facility] [address] [address] [address] Nic Marie LYMPHM% 4.0 % Critically low 20.5-60.0 [facility] Comment on above: Performed By: #### C DAMIAN #### [facility] [address] [address] [address] Nic Marie MCH 19.3 pg Critically low 25.9-34.0 [facility] Comment on above: Performed By: #### C DAMIAN #### [facility] [address] [address] [address] Nic Marie MCHC 27.3 g/dl Critically low 29.9-35.2 [facility] Comment on above: Performed By: #### C DAMIAN #### [facility] [address] [place] [address] Dr. Nic Marie MCV 70.6 fL Critically low 80.0-94.0 [facility] Comment on above: Performed By: #### C DAMIAN #### [facility] [address] [address] [address] Nic Marie METAMYELOCYTE # Normal [facility] Comment on above: Performed By: #### C DAMIAN #### [facility] [address] [place] [address] Dr. Nic Marie METAMYELOCYTE % Normal [facility] Comment on above: Performed By: #### C BCSALINA #### [facility] [address] [place] [address] Dr. Nic Marie MONOM# 0.58 103/ul Normal 0.30-0.80 [facility] Comment on above: Performed By: #### C DAMIAN #### [facility] [address] [place] [address] Dr. Nic Marie MONOM% 4.0 % Normal 1.7-12.0 [facility] Comment on above: Performed By: #### C DAMIAN #### [facility] [address] [place] [address] Dr. Nic Marie MPV 9.7 fL Normal 9.5-13.5 [facility] Comment on above: Performed By: #### C DAMIAN #### [facility] [address] [place] [address] Dr. Nic Marie MYELOCYTE # Normal [facility] Comment on above: Performed By: #### C DAMIAN #### [facility] [address] [place] [address] Dr. Nic Marie MYELOCYTE % Normal [facility] Comment on above: Performed By: #### C DAMIAN #### [facility] [address] [place] [address] Dr. Nic Marie NRBC Normal [facility] Comment on above: Performed By: #### C BCSALINA #### [facility] [address] [place] [address] Dr. Nic Marie PLT 347 103/ul Normal 150-450 [facility] Comment on above: Performed By: #### C DAMIAN #### [facility] [address] [place] [address] Dr. Nic Marie RBC 5.40 106/ul Normal 4.70-6.10 [facility] Comment on above: Performed By: #### C SHUMAN #### [facility] [address] [address] [address] Nic Marie RDW 22.2 % Critically high 11.0-15.0 [facility] Comment on above: Performed By: #### C DAMIAN #### [facility] [address] [address] [address] Nic Marie SEG # 12.56 103/ul Critically high 1.40-6.50 [facility] Comment on above: Performed By: #### C DAMIAN #### [facility] [address] [address] [address] Nic Marie SEG % 86.0 % Critically high 43.0-75.0 [facility] Comment on above: Performed By: #### C DAMIAN #### [facility] [address] [address] [address] Nic Marie WBC 14.6 103/ul Critically high 4.0-11.0 [facility] Comment on above: Performed By: #### C DAMIAN #### [facility] [address] [address] [address] Nic Marie GLYCOHEMOGLOBIN A1Con 2021 ADA RECOMMENDATION ADA THERAPEUTIC TARG ET 6.0 - 7.0 ACTION SUGGESTED > 7.0 Normal [facility] Comment on above: Performed By: #### A 1C #### [facility] [address] [address] [address] Nic Marie Glucose [Mass/Vol] 171 mg/dL Normal [facility] Comment on above: Performed By: #### A 1C #### [facility] [address] [address] [address] Nic Marie HbA1c (Bld) [Mass fraction] 7.6 % Critically high <=6.0 [facility] Comment on above: Performed By: #### A 1C #### [facility] [facility] [address] [address] [address] Nic Marie LIPID PROFILEon 05-04-2021 CHOL-HDL RATIO NORM SEE BELOW Normal [facility] Comment on above: Result Comment: 3.3 - 4.4 LOW RISK 4.4 - 7.1 AVERAGE RISK 7.1 - 11.0 MODERATE RISK >11.0 HIGH RISK Performed By: #### L IPID, TSH, MG, CMP #### [facility] [address] [address] [address] Nic Marie Cholesterol [Mass/Vol] 97 mg/dL Normal <=200 [facility] Comment on above: Performed By: #### L IPID, TSH, MG, CMP #### [facility] [address] [address] [address] Nic Marie Cholesterol in HDL [Mass/Vol] 34 mg/dL Normal [facility] Comment on above: Performed By: #### L IPID, TSH, MG, CMP #### [facility] [address] [address] [address] Nic Marie Cholesterol in LDL [Mass/Vol] 49.2 mg/dL Normal [facility] Comment on above: Performed By: #### L IPID, TSH, MG, CMP #### [facility] [address] [address] [address] Nic Marie Cholesterol.total/C holesterol in HDL [Mass ratio] 2.9 {ratio} Normal [facility] Comment on above: Performed By: #### L IPID, TSH, MG, CMP #### [facility] [address] [address] [address] Nic Marie HDL NORMAL > or = 60 mg/dl - LO W CARDIOVASCULAR RISK <40 mg/dl - HIGH CARDIOVASCULAR RISK Normal [facility] Comment on above: Performed By: #### L IPID, TSH, MG, CMP #### [facility] [address] [address] [address] Nic Marie LDL CALC NORMAL SEE BELOW Normal [facility] Comment on above: Result Comment: <100 mg/dl OPTIMAL 100 - 129 mg/dl NEAR OR ABOVE OPTIMAL 130 - 159 mg/dl BORDERLINE HIGH 160 - 189 mg/dl HIGH >190 mg/dl VERY HIGH Performed By: #### L IPID, TSH, MG, CMP #### [facility] [address] [place] [address] Dr. Nic Marie Triglyceride [Mass/Vol] 69 mg/dL Normal <=150 [facility] Comment on above: Performed By: #### L IPID, TSH, MG, CMP #### [facility] [address] [place] [address] Dr. Nic Marie VLDL CALC 13.8 mg/dL Normal [facility] Comment on above: Performed By: #### L IPID, TSH, MG, CMP #### [facility] [address] [place] [address] Dr. Nic Marie MAGNESIUMon 05-04-2021 Magnesium [Mass/Vol] 1.6 mg/dL Normal 1.6-2.3 [facility] Comment on above: Performed By: #### L IPID, TSH, MG, CMP #### [facility] [address] [place] [address] Dr. Nci Marie PROF 14(COMP METB)on 022 Albumin [Mass/Vol] 3.8 g/dL Normal 3.5-5.0 [facility] Comment on above: Performed By: #### L IPID, TSH, MG, CMP #### [facility] [address] [place] [address] Dr. Nic Marie Albumin/Globulin [Mass ratio] 1.0 {ratio} Normal [facility] Comment on above: Performed By: #### L IPID, TSH, MG, CMP #### [facility] [address] [place] [address] Dr. Nic Marie ALP [Catalytic activity/Vol] 69 U/L Normal 38-[address] [facility] Comment on above: Performed By: #### L IPID, TSH, MG, CMP #### [facility] [address] [place] [address] Dr. Nic Marie ALT [Catalytic activity/Vol] 26 U/L Normal 21-72 [facility] Comment on above: Performed By: #### L IPID, TSH, MG, CMP #### [facility] [address] [place] [address] Dr. Nic Marie Anion gap [Moles/Vol] 8.5 mmol/L Normal [facility] Comment on above: Performed By: #### L IPID, TSH, MG, CMP #### [facility] [address] [place] [address] Dr. Nic Marie AST [Catalytic activity/Vol] 16 U/L Critically low 17-59 [facility] Comment on above: Performed By: #### L IPID, TSH, MG, CMP #### [facility] [address] [address] [address] Nic Marie Bilirubin [Mass/Vol] 0.7 mg/dL Normal 0.2-1.[address] [facility] Comment on above: Performed By: #### L IPID, TSH, MG, CMP #### [facility] [address] [place] [address] Dr. Nic Marie Calcium [Mass/Vol] 9.4 mg/dL Normal 8.4-10.2 [facility] Comment on above: Performed By: #### L IPID, TSH, MG, CMP #### [facility] [address] [place] [address] Dr. Nic Marie Chloride [Moles/Vol] 104 mmol/L Normal 98-[address] [facility] Comment on above: Performed By: #### L IPID, TSH, MG, CMP #### [facility] [address] [place] [address] Dr. Nic Marie CO2 [Moles/Vol] 30.9 mmol/L Critically high 22.0-30.0 [facility] Comment on above: Performed By: #### L IPID, TSH, MG, CMP #### [facility] [address] [place] [address] Dr. Nic Marie Creatinine [Mass/Vol] 1.03 mg/dL Normal 0.66-1.25 [facility] Comment on above: Performed By: #### L IPID, TSH, MG, CMP #### [facility] [address] [place] [address] Dr. Nic Marie EGFR-AF UZBEK >60 Normal >=[address] [facility] Comment on above: Performed By: #### L IPID, TSH, MG, CMP #### [facility] [address] [place] [address] Dr. Nic Marie EGFR-NON AF UZBEK >60 Normal >=60 [facility] Comment on above: Performed By: #### L IPID, TSH, MG, CMP #### [facility] [address] [place] [address] Dr. Nic Marie Globulin (S) [Mass/Vol] 3.7 g/dL Normal [facility] Comment on above: Performed By: #### L IPID, TSH, MG, CMP #### [facility] [address] [place] [address] Dr. Nic Marie Glucose [Mass/Vol] 121 mg/dL Critically high 74-106 [facility] Comment on above: Performed By: #### L IPID, TSH, MG, CMP #### [facility] [address] [place] [address] Dr. Nic Marie Potassium [Moles/Vol] 4.4 mmol/L Normal 3.4-5.0 [facility] Comment on above: Performed By: #### L IPID, TSH, MG, CMP #### [facility] [address] [place] [address] Dr. Nic Marie Protein [Mass/Vol] 7.5 g/dL Normal 6.1-8.2 [facility] Comment on above: Performed By: #### L IPID, TSH, MG, CMP #### [facility] [address] [address] [address] Nic Marie Sodium [Moles/Vol] 139 mmol/L Normal 137-145 [facility] Comment on above: Performed By: #### L IPID, TSH, MG, CMP #### [facility] [address] [place] [address] Dr. Nic Marie Urea nitrogen [Mass/Vol] 21.0 mg/dL Critically high 9.0-20.0 [facility] Comment on above: Performed By: #### L IPID, TSH, MG, CMP #### [facility] [address] [place] [address] Dr. Nic Marie Urea nitrogen/Creatinine [Mass ratio] 20.4 mg/mg Normal [facility] Comment on above: Performed By: #### L IPID, TSH, MG, CMP #### [facility] [address] [address] [address] Nic Marie TSHon 05-04-2021 TSH 1.553 uIU/mL Normal 0.470-4.680 [facility] Comment on above: Performed By: #### L IPID, TSH, MG, CMP #### [facility] [address] [address] [address] Nic Marie TSH RANGE SEE BELOW Normal [facility] Comment on above: Result Comment: <0.3 4 UIU/ml HYPERTHYROID 0.34-5.60 UIU/ml EUTHYROID >5.60 UIU/ml HYPOTHYROID Performed By: #### L IPID, TSH, MG, CMP #### [facility] [address] [address] [address] Nic Marie Cardiovascular Lab Reporton 08-03-2020 Cardiovascular Lab Report [facility] Patient Name: [facility] Khadar Smart MR #: [id number] Department of Physician: Alexa Campbell M.D. Division of Service Date: 08/03/2020 Cardiology Birthdate: 1940 Adult Cardiovascular Room #: [address] [address] Cardiovascular Laboratory Report FINAL IMPRESSIONS: 1. Severe [...] right internal jugular vein was obtained. A 6-Zambian x 11 cm sheath was inserted without [...] to access the left radial artery. A 6-Zambian glide sheath was inserted without difficulty. Bilateral selective coronary angiography was performed using JR4 and JL4 catheters. After reviewing the images, it was elected to proceed with an interventional procedure. A 6-Zambian JR4 guide catheter was advanced over J-wire [...] stenosis. (more content not included)... Normal [facility] Vital Signs Date Time Vital Sign Value Performing Clinician Facility 04-16-2024 12:56-0500 Body mass index (BMI) [Ratio] 26.77 kg/m2 OMERO Bradshaw MD Work Phone: [facility] 04-16-2024 12:56-0500 Body temperature 96.69 [degF] OMERO Bradshaw MD Work Phone: [facility] 04-16-2024 12:56-0500 Body weight 75.2 kg OMERO Bradshaw MD Work Phone: [facility] 04-16-2024 12:56-0500 Diastolic blood pressure 72 mm[Hg] OMERO Bradshaw MD Work Phone: [facility] 04-16-2024 12:56-0500 Respiratory rate 18 /min OMERO Bradshaw MD Work Phone: [facility] 04-16-2024 12:56-0500 SaO2% (BldA) [Mass fraction] 88 % NA Augustine WISE Work Phone: [facility] 04-16-2024 12:56-0500 Systolic blood pressure 121 mm[Hg] NA Augustine WISE Work Phone: [facility] 10-19-2023 10:55-0400 Blood Pressure Location Yousuf JUDGE [facility] 10-19-2023 10:55-0400 Diastolic blood pressure 70 mm[Hg] Yousuf JUDGE [facility] 10-19-2023 10:55-0400 Heart rate 16 /min Yousuf JUDGE [facility] 10-19-2023 10:55-0400 Respiratory rate 16 /min Yousuf JUDGE [facility] 10-19-2023 10:55-0400 Systolic blood pressure 130 mm[Hg] Yousuf JUDGE [facility] 10-13-2022 09:35-0400 Blood Pressure Location Yousuf JUDGE [facility] 10-13-2022 09:35-0400 Diastolic blood pressure 78 mm[Hg] Yousuf JUDGE [facility] 10-13-2022 09:35-0400 Heart rate 69 /min Yousuf JUDGE [facility] 10-13-2022 09:35-0400 Respiratory rate 16 /min Yousuf JUDGE [facility] 10-13-2022 09:35-0400 Systolic blood pressure 132 mm[Hg] Yousuf JUDGE [facility] [place] Encounters Encounter Date Encounter Type Care Provider Facility Start: 10-20-2024 ambulatory Yousuf JDUGE Gopi ty:ALYSA GutierrezAlex Start: 05-05-2024 End: 05-05-2024 ambulatory [facility] Start: 05-02-2024 End: 05-02-2024 Refill Dg Cook COT [facility] Comment on above: 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, mild stage (CMS/HCC) Start: 04-30-2024 End: 04-30-2024 ambulatory Yanelis BRADSHAW Facility:[facility] Start: 04-30-2024 End: 04-30-2024 Subsequent hospital visit [...] Work Phone: Radiation Oncology Comment on above: Purchasing Coordinator - O ther Future Appointment; Purchasing Coordinator - Other (Pacemaker Checks During XRT) Start: 04-23-2024 End: 04-23-2024 ambulatory Yanelis BRADSHAW Facility:[facility] Start: 04-23-2024 End: 04-25-2024 Patient encounter procedure Yanelis Bradshaw MD Work Phone: Radiation Oncology Comment on above: Malignant neoplasm o f lung, unspecified laterality, unspecified part of lung (HCC) (Primary Dx) Start: 04-22-2024 End: 04-23-2024 Telephone encounter Yanelis Bradshaw MD Work Phone: Hematology/Oncology Comment on above: Thoracentesis Start: 04-22-2024 End: 04-22-2024 Admission to same day surgery center Josy Delacruz MD Work Phone: [facility] [place] Work Phone: Start: 04-22-2024 End: 04-22-2024 ambulatory Josy Delacruz MD Work Phone: [facility] Work Phone: Start: 04-21-2024 End: 04-21-2024 Telephone [...] Cancer Appts Start: 04-09-2024 End: 04-09-2024 ambulatory [facility] Start: 04-09-2024 End: 04-09-[address] [facility] Start: 04-09-2024 End: 04-09-2024 ambulatory [facility] Start: 03-20-2024 ambulatory [facility] Start: 03-10-2024 End: 03-10-2024 ambulatory [facility] Start: 03-07-2024 End: 03-07-2024 [facility] Start: 03-03-2024 End: 03-03-2024 [facility] Start: 02-08-2024 End: 02-08-2024 ambulatory [facility] Start: 11-27-2023 End: 11-27-2023 Bamboo flowsheet Kely D Zahler DO Work Phone: [facility] Start: 11-27-2023 End: 11-27-2023 Bamboo flowsheet Kely D Zahler DO Work Phone: [facility] Start: 11-27-2023 End: 11-27-2023 ambulatory KELY D ZAHLER Not Available Start: 10-19-2023 End: 10-19-2023 ambulatory Yousuf JUDGE Facility: [place] Start: 10-19-2023 End: 10-19-2023 Patient encounter procedure Yousuf JUDGE [facility] Start: 09-25-2023 End: 09-25-2023 ambulatory JACKY [facility] Start: 08-24-2023 End: 08-24-2023 ambulatory KELY D ZAHLER Not Available Start: 06-29-2023 End: 06-29-2023 ambulatory KELY D ZAHLER Not Available Start: 05-11-2023 End: 05-11-2023 ambulatory KELY D ZAHLER Not Available Start: 02-23-2023 End: 02-23-2023 ambulatory KELY D ZAHLER Not Available Start: 10-17-2022 End: 10-17-2022 Patient encounter procedure Yousuf JUDGE [facility] Start: 10-13-2022 End: 10-13-2022 Patient encounter procedure Yousuf JUDGE [facility] Start: 04-20-2022 End: 04-21-2022 ambulatory LAURA SEVERIANO Facility:[facility] Start: 10-25-2021 End: 10-26-[address] RAMYA FLANAGAN Facility:[facility] Start: 05-04-2021 End: 05-05-2021 ambulatory LAURA SEVERIANO Facility:[facility] Start: 08-03-2020 End: 08-04-2020 ambulatory RAMYA FLANAGAN Facility:[facility] Procedures Date Procedure Procedure Detail [...] By: #### P SAD #### [facility] [address] [place] [address] Dr. Nic Marie Start: 08-03-2020 Placement of stent i n cardiac conduit Yousuf JUDGE carotid endarderectomy Frandy JUDGE History of hernia repair Tonia JUDGE Operative procedure on coronary artery Yousuf JUDGE Plan of Treatment Date Care Activity Detail Author Start: 06-17-2024 End: 06-17-2024 Patient encounter procedure 06/17/2024 2:15 PM EDT Office Visit [facility] [address] [place] [address] Kely Borden, [address] [place] [address] [facility] Start: 04-30-2024 End: 04-30-2024 Patient encounter procedure Radiation Oncology Comment on above: NEW START, LUNG pt p refers after 9:00am PET Start: 04-26-2024 End: 05-25-2025 PET+CT Guidance for 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-- W 18F-FDG IV NM PET/CT SKULL-THIGH SUBSEQUENT Radiology Routine Malignant neoplasm of unspecified part of unspecified bronchus or lung (HCC) Expected: 04/26/2024, Expires: 05/25/2025 [facility] Work Phone: Comment on above: Expected: [...] of lung (HCC) Expected: 04/22/2024, Expires: 07/22/2024 [facility] Comment on above: Expected: 04/22/2024 , Expires: 07/22/2024 Start: 04-22-2024 End: 07-22-2024 BODY FLUID CELL COUNT BODY FLUID CELL COUNT Lab Routine Malignant neoplasm of lung, unspecified laterality, unspecified part of lung (HCC) Expected: 04/22/2024, Expires: 07/22/2024 [facility] Work Phone: Comment on above: Expected: 04/22/2024 , Expires: 07/22/2024 Start: 04-22-2024 End: 07-22-2024 CYTOLOGY NON-REMEDIATION BIOANALYTICS CONSULTANT CYTOLOGY NON-REMEDIATION BIOANALYTICS CONSULTANT Lab Routine Malignant neoplasm of lung, unspecified laterality, unspecified part of lung (HCC) Expected: 04/22/2024, Expires: 07/22/2024 [facility] Comment on above: Expected: 04/22/2024 , Expires: 07/22/2024 Start: 04-22-2024 End: 07-22-2024 Glucose [Mass/volume] in Body fluid GLUCOSE, BODY FLUID Lab Routine Malignant neoplasm of lung, unspecified laterality, unspecified part of lung (HCC) Expected: 04/22/2024, Expires: 07/22/2024 [facility] Comment on above: Expected: 04/22/2024 , Expires: 07/22/2024 Start: 04-22-2024 End: 07-22-2024 Lactate dehydrogenase [Enzymatic activity/volume] in Body fluid LACTATE DEHYDROGENASE, BODY FLUID Lab Routine Malignant neoplasm of lung, unspecified laterality, unspecified part of lung (HCC) Expected: 04/22/2024, Expires: 07/22/2024 [facility] Comment on above: Expected: 04/22/2024 , Expires: 07/22/2024 Start: 04-22-2024 End: 07-22-2024 Microorganism identified in Unspecified specimen by Culture AFB CULTURE AND STAIN Microbiology Routine Malignant neoplasm of lung, unspecified laterality, unspecified part of lung (HCC) Expected: 04/22/2024, Expires: 07/22/2024 [facility] Comment on above: Expected: 04/22/2024 , Expires: 07/22/2024 Start: 04-22-2024 End: 07-22-2024 pH of Body fluid PH BODY FLUID Lab Routine Malignant neoplasm of lung, unspecified laterality, unspecified part of lung (HCC) Expected: 04/22/2024, Expires: 07/22/2024 [facility] Comment on above: Expected: 04/22/2024 , Expires: 07/22/2024 Start: 03-05-2024 Advance Directive Discussion Advance Directive Discussion [facility] Start: 11-27-2023 End: 11-27-2023 Patient encounter procedure 11/27/2023 10:30 AM EDT Office Visit [facility] [address] [place] [address] Kely Borden DO [address] [place] [address] Arrived [facility] Comment on above: Arrived Start: 11-04-2023 Covid-19 Vaccine ( season) Covid-19 Vaccine ( season) [facility] Start: 11-04-2023 Influenza vaccination Influenza Vacc ine (#1) [facility] Start: 12-20-2017 Pneumococcal Vaccine : 50+ (2 of 2 - PPSV23) Pneumococcal Vaccine: 50+ (2 of 2 - PPSV23) [facility] Start: 12-20-2017 Pneumococcal Vaccine : 65+ Years (2 of 2 - PPSV23 or PCV20) Pneumococcal Vaccine: 65+ Years (2 of 2 - PPSV23 or PCV20) [facility] Start: 2017 RSV Vaccine (1 - 1-d ose 75+ series) RSV Vaccine (1 - 1-dose 75+ series) [facility] Start: 02-16-1992 Shingrix Vaccine (1 of 2) Shingrix Vaccine (1 of 2) [facility] Start: 1987 Diabetes Screening Diabetes Screenin g [facility] Start: 1961 Urine microalbumin profile DTaP,Tdap,Td Vaccine (1 - Tdap) [facility] Start: 02-16-1960 Anxiety Screening Anxiety Screening [facility] Start: 02-16-1960 Depression Screening Depression Scre ening [facility] ANALYZE CARDIO/DEFIBRILLATOR ANALYZE CARDIO/DEFIBRILLATOR Cardiology Routine Atrial fibrillation, unspecified type (HCC) Malignant neoplasm of lung, unspecified laterality, unspecified part of lung (HCC) Ordered: 04/17/2024 [facility] Work Phone: Comment on above: Ordered: 04/17/2024 CT Guidance for radiation treatment of Unspecified body region CT SIM PLANNING RADIATION ONCOLOGY Radiology Routine Malignant neoplasm of lung, unspecified laterality, unspecified part of lung (HCC) Ordered: 04/23/2024 [facility] Work Phone: Comment on above: Ordered: 04/23/2024 Guidance for thoracentesis of Chest IMAGING GUIDED THORACENTESIS Radiology Routine Malignant neoplasm of lung, unspecified laterality, unspecified part of lung (HCC) Ordered: 04/17/2024 [facility] Comment on above: Ordered: 04/17/2024 PET+CT Guidance for 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-- W 18F-FDG IV NM PET/CT SKULL-THIGH SUBSEQUENT Radiology Routine Malignant neoplasm of unspecified part of unspecified bronchus or lung (HCC) 04/30/2024 9:22 AM EST [facility] Work Phone: Immunizations Immunization Date Immunization Notes Care Provider Natacha wang 11-23-2021 SARS-CoV-2 (COVID-19 ) [id number] Yousuf JUDGE [facility] 12-30-2020 SARS-CoV-2 (COVID-19 ) mRNA BNT-162b2 vax Yousuf JUDGE [facility] Comment on above: Result Comment: 2023: [id number] 05-13-2020 SARS-CoV-2 (COVID-19 ) mRNA-1273 vaccine Yousuf JUDGE [facility] Comment on above: Result Comment: 2023: [id number] 04-15-2020 SARS-CoV-2 (COVID-19 ) mRNA-1273 vaccine Yousuf JUDGE [facility] 03-05-2020 SARS-CoV-2 (COVID-19 ) mRNA-1273 vaccine Yousuf JUDGE [facility] Comment on above: Result Comment: pt h as had 3 shots to date but does not know the dates 12-20-2016 pneumococcal conjuga te vaccine, 13 valent Yousuf JUDGE [facility] NEGATED: Highlighted row has not occurred!04-23-2020 influenza virus vaccine, unspecified formulation Yousuf ALFIE [facility] Payers Date Payer Category Payer Self-pay 2021 Medicare AETNA MEDICARE A DVANTAGE AETNA MEDICARE REPLACEMENT [id number] 2021-Present [address] [place] [address] [id number] 2019 Medicare (Managed Care) [employer]NA [place] [id number] 1959 Medicare [id number] 1940 Unknown [id number] [id number]. 647 1940 Unknown [id number] 2.16.840.1.180555.3.579.2. 593 1940 Unknown [id number] 2.16.840.1.342725.3.579.2. 593 1940 Unknown [id number] 2.16.840.1.111994.3.579.2. 593 1942 Unknown [id number] 2.16.840.1.320288.3.579.2. 593 1942 Unknown [id number] 2.16.840.1.731012.3.579.2. 727 1940 Unknown [id number] 2.16.840.1.209124.3.579.2. 727 1942 Unknown [id number] 2.16.840.1.502399.3.579.2. 1259 1942 Unknown [id number] 2.16.840.1.746977.3.579.2. 1259 1942 Unknown [id number] 2.16.840.1.995601.3.579.2. 1259 1942 Unknown [id number] 2.16.840.1.002090.3.579.2. 1259 1942 Unknown [id number] 2.16.840.1.313416.3.579.2. 1259 Private Health Insurance [id number] Private Health Insurance [facility] [id number] Unknown [id number]. 531 Social History Date Type Detail Facility Start: 05-28-2014 End: 04-25-2019 Tobacco smoking status Ex-smoker (finding) [facility] Start: 09-27-2022 End: 08-24-2023 Sex Assigned At Male [facility] Tobacco smoking status Never [facility] Start: 09-27-2022 Tobacco smoking stat us NHIS Never smoked tobacco [facility] Start: 09-27-2022 End: 08-24-2023 History of Social function [facility] [facility] Start: 1940 Sex assigned at Not on file [facility] Start: 03-05-1969 End: 03-05-1999 History of tobacco use Current smoker [facility] Start: 03-05-1969 End: 03-05-1999 History of tobacco use Cigarette Smoker [facility] Start: 05-28-2014 Tobacco use and exposure Smokeless tobacco non-user [facility] Start: 06-05-2018 Alcoholic beverage intake Current non-drinker of alcohol (finding) [facility] Start: 04-25-2024 Sex Male (finding) [facility] Start: 1940 Sex Assigned At Male F [facility] Functional Status Date Assessment Result Facility 10-19-2023 Functional Status N/A [facility] 10-13-2022 Functional Status N/A [facility] 09-28-2014 Are you deaf, or do you have serious difficulty hearing No 09/28/2014 11:08 AM FANYT Rojelio Guajardo RN No [facility] 09-28-2014 Are you blind, or do you have serious difficulty seeing, even when wearing glasses No 09/28/2014 11:08 AM Rojelio Garcia RN No [facility] 09-28-2014 Do you have serious difficulty walking or climbing stairs No 09/28/2014 11:08 AM Rojelio Garcia RN No [facility] 09-28-2014 Do you have difficul ty dressing or bathing No 09/28/2014 11:08 AM Rojelio Garcia RN No [facility] 09-28-2014 Because of a physica l, mental, or emotional condition, do you have difficulty doing errands alone such as visiting a physician's office or shopping No 09/28/2014 11:08 AM Rojelio Garcia RN No [facility] Mental Status Date Assessment Result Facility 09-28-2014 Because of a physica l, mental, or emotional condition, do you have serious difficulty concentrating, remembering, or making decisions No 09/28/2014 11:08 AM Rojelio Garcia RN No [facility] Clinical Notes 10-13-2022 to 05-05-2024 Cherelle Cordero RN - 04/30/2024 8:00 AM Dg Shannon RT(R) - 04/30/2024 8:00 AM ESTTelephone Encounter - Shazia Rooney - 04/25/2024 12:57 PM Yanelsi Miguel MD - 04/23/2024 9:36 AM EST Note Date & Type Note Facility 05-05-2024 Note [place] Cardiology - [facility] Subjective Khadar Dawn is a [...] Past Medical History: Diagnosis Date Atrial fibrillation ([facility]) CHF (congestive heart failure) ([facility]) COPD (chronic obstructive pulmonary disease) ([facility]) home oxygen 4 L Coronary artery disease Diabetes mellitus ([facility]) Hyperkalemia Hyperlipidemia Hypertension Past Surgical History: Procedure [...] mg by mout (more content not included)... [facility] 04-30-2024 History of Present illness Narrative [...] AM PAGER/CONTACT #: documented in this encounter [facility] 04-30-2024 Note HNO ID: [id number] Author: CHERELLE CORDERO RN Service: ? Author [...] DATE: April 30, 2024 TIME: 7:[address] [facility] 04-30-2024 Note HNO ID: [id number] Author: DG COOK RT(R) Service: ? Author [...] 30, 2024 TIME: 8:24 AM PAGER/CONTACT #: [facility] 04-25-2024 Telephone encounter Note Khadar is scheduled for a PET scan on Apr 30 with an arrival time of 8am and a scan time of 915. Confirmed with . [facility] 04-25-2024 Miscellaneous Notes Khadar is scheduled for [...] patient on Sunday when he is in [place]. documented in this encounter [facility] 04-25-2024 Telephone encounter Note I apologize, per Radiology I can't use this one. I have to give him the next available which is 05/06 or 05/09. [facility] 04-25-2024 Telephone encounter Note First PET opening is Sunday. Please advise if this is ok? [facility] 04-25-2024 Telephone encounter Note In reviewing simulation images right concern of growing nodules outside of the left upper lobe lesion concerning for metastasis. Recommend holding radiation planning. Recommend reimaging with PET scan. Discussed with Dr. Rodrgiuez and with patient. Dr. Rodriguez can see patient on Sunday when he is in [place]. [facility] 04-23-[address] Rodriguez's office [...] of ordering and scheduling. Edyta Gilliland, RN [facility] 04-23-[address] Rodriguez's office [...] Edyta Gilliland RN documented in this encounter [facility] 04-23-2024 Telephone encounter Note Call placed to [facility] [place] ([phone]). Spoke to Kristi to arrange weekly pacemaker checks. Kristi called rep from [employer] and stated he has a single chamber [...] pt know as well. Edyta Gilliland RN [facility] 04-23-2024 Miscellaneous Notes Call placed to [facility] [place] ([phone]). Spoke to Kristi to arrange weekly pacemaker checks. Kristi called rep from [employer] and stated he has a single chamber [...] Edyta Gilliland RN documented in this encounter [facility] 04-23-2024 Note HNO ID: [id number] Author: Yanelis BRADSHAW MD Service: ? Author Type: Physician Type: Progress Notes Filed: 04/23/2024 09:36 Note Text: se [facility] 04-23-2024 History of Present illness Narrative sim documented in this encounter [facility] 04-23-2024 Telephone encounter Note Per scanned US report, thoracentesis was not done. [facility] 04-23-2024 Miscellaneous Notes Per scanned US report, thoracentesis was not done. Received call from Hui at [facility] radiology asking for images from last Chest XR be pushed over. Patient is there for thoracentesis and the radiologist is not seeing any fluid. I let her know his last XR chest was done at [facility], and the one before that was at [place]. She will call there for images. She said they will probably not be able to do the thoracentesis since there is no fluid that they can see. documented in this encounter [facility] 04-23-2024 History of Present illness Narrative KHADAR DAWN [id number] 04/23/2024 [facility] Radiation Oncology Department SIMULATION NOTE DATE OF SIMULATION: 04/23/2024 THERAPIST: Paulette Weinberg John MACHINE: lifecake DIAGNOSIS: Malignant neoplasm of upper lobe, left [...] TS :31 PM documented in this encounter [facility] 04-23-2024 Note HNO ID: [id number] Author: Yanelis BRADSHAW MD Service: ? Author Type: Physician Type: Progress Notes Filed: 04/24/2024 14:31 Note Text: KHADAR DAWN [id number] 04/23/2024 [facility] Radiation Oncology Department SIMULATION NOTE DATE OF SIMULATION: 04/23/2024 THERAPIST: Paulette Lea MACHINE: [employer] DIAGNOSIS: Malignant neoplasm of upper lobe, left [...] Juno Bradshaw M.D. / TS :[address] [facility] 04-22-2024 Radiology Diagnostic study note [facility] Main [place] [address] [place] [address] Ultrasound Report Signed Patient: Khadar Dawn MR#: [id number] : 1940 Acct:[id number] Age/Sex: 84 / M ADM Date: 5 Loc: Room: Type: [facility] Attending Dr: Comfort Bradshaw MD Ordering Provider: Yanelis Bradshaw MD Date of Service: 04/22/24 US/US guide or thoracentesis: THORA Copies to: Yanelis Bradshaw MD~ ULTRASOUND-GUIDED THORACENTESIS INDICATION: REPORTED EFFUSION COMPARISON: NONE US/US guide or thoracentesis FINDINGS/IMPRESSION: ULTRASOUND LEFT CHEST WALL DEMONSTRATE NO FLUID COLLECTION. PROCEDURE NOT PERFORMED. Impression dictated by: Hal Mojica M.D.04/22/2024 2:57 PM Dictation Location: [place] [address] Tech: Javier Vidal Transcribed By: QING 04/22/241456 Dictated By: Hal Mojica MD 04/22/241455 Signed By: 04/22/241456 [facility] Work Phone: 04-22-2024 Telephone encounter Note Received call from Hui at [facility] radiology asking for images from last Chest XR be pushed over. Patient is there for thoracentesis and the radiologist is not seeing any fluid. I let her know his last XR chest was done at [facility], and the one before that was at [place]. She will call there for images. She said they will probably not be able to do the thoracentesis since there is no fluid that they can see. [facility] 04-21-2024 Telephone encounter Note Consult note faxed to Dr. Rodriguez. [facility] 04-21-2024 Miscellaneous Notes Consult note faxed to Dr. Rodriguez. Erich from Dr. Rodriguez's office called asking for past progress notes for the patient. He stated that the patient was referred and they have not received any information. Please fax records to [phone]. documented in this encounter [facility] 04-21-2024 Telephone encounter Note Patient does not see Dr. Lane. This fax number is for Dr. Rodriguez. Patient's PCP is Dr. Delacruz. Note will be faxed to Dr. Rodriguez and Dr. Delacruz once it is complete. [facility] 04-21-2024 Miscellaneous Notes Patient does not see Dr. Lane. This fax number is for Dr. Rodriguez. Patient's PCP is Dr. Delacruz. Note will be faxed to Dr. Rodriguez and Dr. Delacruz once it is complete. Dr. Lane's office called requesting progress notes from the past 12 months. Please fax to [phone]. They are requesting this today as he has an appointment. Thank you documented in this encounter [facility] 04-21-2024 Telephone encounter Note Records faxed to Dr. Ponce's [place] office. [facility] 04-21-2024 Miscellaneous Notes Records faxed to Dr. Ponce's [place] office. Referral was sent to [place] and [place] offices. Confirmed patient to be scheduled in [place] with Dr. Ponce on 04/23 at 3pm. I called [place] office and explained sent by mistake to please disregard. JACLYN Claudio could you please fax demographics and records to DR. Ponce office at [phone]. He is having a thoracentesis on 04/22. [...] Thanks! Vicki Dockery RT(R)(T) Patient scheduled at [facility] on 04/22 at 9am. Arrive at 8am and stop Xarelto 2 days prior. LM for patient of this information and I will call back tomorrow to confirm he got it. Dr Ponce office returned my call. Asked if I would fax everything to their referral fax line. They will review and contact the patient for an appointment. All info was faxed to [phone] Will follow up to see when appt is scheduled Yolanda Schwartz PSS Everything is faxed to [employer] for Shazia Perez and I will check with [employer] daily to see when scheduled I called [...] to be signed to fax to IR [facility] PSS/RT: Please schedule [facility] IR for thoracentis return for sim after treating lung no contrast 15 treatments, no concurrent chemo Need presim consent Nurse ed today Consult with Dr. Ponce to establish care with local server programmer. 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 Thanks Rojelio Guajardo RN documented in this encounter [facility] 04-21-2024 Telephone encounter Note Referral was sent to [place] and [place] offices. Confirmed patient to be scheduled in [place] with Dr. Ponce on 04/23 at 3pm. I called [place] office and explained sent by mistake to please disregard. [facility] 04-21-2024 Telephone encounter Note JACLYN Shanon could you please fax demographics and records to DR. Ponce office at [phone]. He is having a thoracentesis on 04/22. She would like records faxed and images pushed of those as well. Thanks so much [facility] 04-21-2024 Telephone encounter Note Spoke to patient, confirmed pre sim and arrival time 04/23 at 745am. [facility] 04-21-2024 Telephone encounter Note Erich from Dr. Rodriguez's office called asking for past progress notes for the patient. He stated that the patient was referred and they have not received any information. Please fax records to [phone]. [facility] 04-21-2024 Telephone encounter Note Sim scheduled on 04/23/24 at 830am PSS - please schedule pre sim consent with CHRISTIE at 8am & notify pt of 745 arrival time, no special instructions. Thanks! Vicki Dockery RT(R)(T) [facility] Work Phone: 04-18-2024 Telephone encounter Note Patient scheduled at [facility] on 04/22 at 9am. Arrive at 8am and stop Xarelto 2 days prior. LM for patient of this information and I will call back tomorrow to confirm he got it. [facility] 04-18-[address] Ponce office returned my call. Asked if I would fax everything to their referral fax line. They will review and contact the patient for an appointment. All info was faxed to [phone] Will follow up to see when appt is scheduled Yolanda Schwartz PSS [facility] 04-18-2024 Telephone encounter Note Everything is faxed to [employer] for Shazia Perez and I will check with [employer] daily to see when scheduled I called Dr Ponce office and got a voicemail stating they are away from their desk. I left a message asking them to return my call as I have a referral I would like to get scheduled. Will update when I hear back from them Yolanda Schwartz PSS [facility] 04-18-2024 Telephone encounter Note Order is signed. Please arrange thoracentesis appt lizette. Thanks Rojelio Guajardo RN [facility] 04-17-2024 Telephone encounter Note Waiting on orders to be signed to fax to [facility] 04-16-2024 Note HNO ID: [id number] Author: ROJELIO GUAJARDO RN Service: ? Author Type: Registered Nurse Type: Progress Notes Filed: 04/16/2024 15:30 Note Text: Radiation Therapy - Patient Education Note PATIENT NAME: Khadar Dawn PATIENT April 16, 2024 [facility] FACILITY/LOCATION: [facility] READINESS TO LEARN Cognitive Ability: Alert [...] need for social work, van service, and water server. Was PED reviewed? No Patient has an Onbody or Implanted device: Yes, person notified was: Dr. Bradshaw Signed by: Rojelio Guajardo RN [facility] 04-16-2024 History of Present illness Narrative Radiation Therapy - Patient Education Note PATIENT NAME: Khadar Dawn PATIENT April 16, 2024 [facility] FACILITY/LOCATION: [facility] READINESS TO LEARN Cognitive Ability: Alert [...] need for social work, van service, and water server. Was PED reviewed? No Patient has an Onbody or Implanted device: Yes, person notified was: Dr. Bradshaw Signed by: Rojelio Guajardo RN documented in this encounter [facility] 04-16-2024 Telephone encounter Note PSS/RT: Please schedule [facility] IR for thoracentis return for sim after treating lung no contrast 15 treatments, no concurrent chemo Need presim consent Nurse ed today Consult with Dr. Ponce to establish care with local server programmer. 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 Thanks Rojelio Guajardo RN [facility] 04-16-2024 Note HNO ID: [id number] Author: Yanelis BRADSHAW MD Service: ? Author [...] (60.0 ttl pk-yrs) (more content not included)... [facility] 04-16-2024 History of Present illness Narrative Radiation [...] uptake to an AP window lymph node. [facility] with EBUS negative level 7 lymph node [...] MD cc: Josy M Nubia [address] [place] [id number] Meeta Rodriguez [address] [facility] [address] Pacemaker/Defibrillator? Yes 03/03 placed Previous Cancer(s)? Yes Prostate Previous Radiation? Yes- Here Lupus/Scleroderma?No On body monitoring device? No Edyta Gilliland RN documented in this encounter [facility] 04-16-2024 Note HNO ID: [id number] Author: EDYTA GILLILAND, RN Service: ? Author Type: Registered Nurse Type: Progress Notes Filed: 04/21/2024 15:24 Note Text: Pacemaker/Defibrillator? Yes 03/03 placed Previous Cancer(s)? Yes Prostate Previous Radiation? Yes- Here Lupus/Scleroderma?No On body monitoring device? No Edyta Gilliland RN [facility] 04-16-2024 Note Education (RADTSA) KHADAR DAWN ([id number]) 1940 M Date Time Provider Department 04/16/24 [...] Encounter Status:Closed by ROJELIO GUAJARDO on 04/16/24 [facility] 04-15-[address] Lane's office called requesting progress notes from the past 12 months. Please fax to [phone]. They are requesting this today as he has an appointment. Thank you [facility] 04-09-2024 Note Patient: Khadar cox Procedure Summary Date: 04/09/24 Room / Location: [facility] Main Operating Room Anesthesia Start: 1110 Anesthesia Stop: 1229 Procedure: BRONCHOSCOPY Diagnosis: Lung mass Centrilobular emphysema (CMS/HCC) Chronic hypoxic respiratory failure (CMS/HCC) Scheduled Providers: Cara Perez MD; Zuly Rizo MD Responsible Provider: uZly Rizo MD Anesthesia Type: general ASA Status: [...] per anesthesia protocol. No notable events documented. [facility] 04-09-2024 Note Airway Date/Time: 04/09/2024 11:21 AM Urgency: elective Airway not difficult General Information and Staff Patient location during procedure: OR Anesthesiologist: Zuly Rizo MD Resident/HARNESS CUTTER/CAA: Anmol Mccray MD Performed: resident/HARNESS CUTTER/CAA Learner assisted: MS Indications and Patient Condition [...] 22 Number of attempts at approach: 1 [facility] 04-09-[address] Rizo at pt beds gabriella to assess before heading to procedure room. [facility] 04-09-2024 Note H&P reviewed. The pa tient was examined and there are no changes to the H&P. Re-explained the procedure to the patient along with the associated risk of pneumothorax, bleeding, hypoxia, and respiratory failure. Patient is agreeable and will proceed with the scheduled Robotic bronchoscopy and TBBx, FNA, EBUS Cara Perez MD Interventional Pulmonary Medicine Pulmonary and Critical Care Medicine [facility] 04-09-2024 Note PROCEDURE: CT CHEST WITHOUT [...] Electronically signed: David Hoffman MD. Not Vldtd [facility] 04-08-2024 Note Patient: Khadar cox Procedure Information Date/Time: 04/09/24 1030 Scheduled providers: Cara Perez MD; Zuly Rizo MD Procedure: BRONCHOSCOPY Location: [facility] Main Operating Room Relevant Problems Cardio S/p [...] with attending and resident. Additional Equipment Requests [facility] 03-20-2024 Note Attestation signed by Cara Perez MD at 03/21/2024 11:55 AM I have seen and examined the patient. I reviewed the resident/fellow note and I agree with the findings and plan. Cara Perez MD Interventional Pulmonary Medicine Pulmonary and Critical Care Medicine [facility] Pulmonary Clinic Visit Note Patient: Khadar Dawn Age: 84 y.o. : 1940 Account No.: [id number] Referring physician: Dr. Delacruz Chief complaint: Lung [...] failure) (CMS/HCC) Coronary artery disease Diabetes mellitus ([facility]) Hyperkalemia Hyperlipidemia Hypertension Past Surgical History: Procedure [...] rales CARDIOVASCULAR: Re (more content not included)... [facility] 03-10-2024 Note [place] Cardiology - [facility] Subjective Khadar Dawn is a [...] extremities. PSYCH: gloria (more content not included)... [facility] 03-03-2024 Note SINGLE CHAMBER PACEM CRUZITO IMPLANT PROCEDURE NOTE DATE OF PROCEDURE: 03/03/2024 PERFORMING PHYSICIAN: Dr. Aaron Rivas CONSENT: Patient LOCATION: EP Lab PROCEDURE PERFORMED: 1. Implantation of pacemaker ([employer]) 2. Ultrasound guided venous access INDICATIONS: 1. [...] using modified seldinger technique using a 5 [place] micro-puncture needle on one occasion and 0.35 [...] for the device above the muscle. 6 [place] Safesheaths were placed over the wire. An active fixation [employer] pacing lead was then delivered through the 6Fsheath to the right ventricle. After confirmation of lead position on orthogonal views (GODINEZ and SAMOAN) to confirm septal position, the screw was [...] any concerns. Aaron Rivas MD Cardiac Electrophysiology [facility] 03-03-2024 Note Patient: Khadar cox Procedure Information Date/Time: 03/03/24 1130 Procedure: Implant PPM - [employer] Location: [facility] TREE TAPPING LAB[facility]ER 1 / [facility] (Cath) Providers: Aaron Rivas MD Clinical information reviewed: Allergies Meds Physical Exam Airway Mallampati: II TM distance: >3 FB Neck ROM: full Cardiovascular Dental Pulmonary Abdominal Anesthesia Plan ASA 3 CSE Anesthetic plan and risks discussed with patient. Use of blood products discussed with patient who. Additional Equipment Requests [facility] 02-22-2024 Note Today I reviewed pat [...] Dr. Rivas next time he is in [place] office 03/18/2024. The patient was advised to come to the emergency room immediately if he has any dizziness. [facility] 02-08-2024 Note [place] Cardiology - [facility] Subjective Khadar Dawn is a 83 y.o. year old male patient being seen for Hospital Follow-up (He was admitted to [facility] last month for CHF. Say he's [...] and other tests (more content not included)... [facility] 11-27-2023 Note Right Eye Reliability was good. Progression has been stable. Foveal threshold was normal. Findings include normal observations. Left Eye Reliability was good. Progression has been stable. Foveal threshold was normal. Findings include central scotoma. [facility] 11-27-2023 Note Right Eye Quality was good. Scan locations included subfoveal. Progression has been stable. Findings include abnormal foveal contour. Left Eye Quality was good. Scan locations included subfoveal. Progression has been stable. Findings include abnormal foveal contour, subretinal scarring. Notes Retinal pigment epithelium (RPE) changes c/w drusen Macular volume loss both eyes (OU) [facility] 11-27-2023 History of Present illness Narrative Images [...] worsening of vision documented in this encounter [facility] 10-19-2023 Hospital Discharge instructions Patient Education 10/19/2023 [...] urethra. Follow these instructions at home: Take pmds-nmq-ygaswim and prescription medicines only as told by [...] provider. Document Revised: 09/07/2021 Document Reviewed: 09/07/2021 [employer] Patient Education 2022 Monitor My Meds. Follow Up Care 12/11/2022 11:11:41 With:ALFIE WISE, Yousuf Barroso, URL Address: [address] [place] [address]- When: Unknown [facility] Note Patient Education Urology Benign Prostatic [...] Follow these instructions at home: ? Take rrta-tkq-ekpvqbz and prescription medicines only as told by [...] develop side effec (more content not included)... [facility] 09-25-2023 Note Patient here for 6 m [...] All other systems reviewed and are negative. [facility] 09-25-2023 Note Cardiovascular Medic [facility] SUBJECTIVE Chief Complaint Patient [...] Final QTC CALCULATION(BAZETT) 08/03/2020 428 ms Final R-Roscoe 08/03/2020 -82 degrees Final T Wave Roscoe 06 (more content not included)... [facility] 10-17-2022 Hospital Discharge instructions Patient Education [...] Address: [facility] [address] [place] [address]- Business (1) When: Unknown Comments:Office will call to schedule follow up [facility] 10-13-2022 Hospital Discharge instructions Patient [...] urethra. Follow these instructions at home: Take byim-zcn-vnbjkkg and prescription medicines only as told by [...] provider. Document Revised: 09/07/2021 Document Reviewed: 09/07/2021 [employer] Patient Education 2022 [employer] Follow Up Care 04/25/2021 10:27:16 With:Yousuf JUDGE MD, URL Address: [facility] [address], [place] [address]- When: Unknown Comments:radha Cysto. [facility] Evaluation + Plan note Future Appointments Appointment Date:10/16/2022 10:45:00 AM Scheduled Provider: Location:[facility] Appointment Type:Urology CALL PAT FT Appointment Date:10/17/2022 10:00:00 AM Scheduled Provider: Location:[facility] Appointment Type:Urology FT Diagnostic Tests PendingPSA Total 10/13/22 [facility] Evaluation + Plan note Future Appointments Appointment Date:10/20/2024 10:30:00 AM Scheduled Provider:Yousuf JUDGE MD Location:[facility] Appointment Type:URO Office Visit Diagnostic Tests PendingPSA Total 09/02/24 [facility] Evaluation note Diagnosis Primary open angle glaucoma (POAG) of both eyes, mild stage (CMS/HCC)- Primary 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) Age-related nuclear cataract of both eyes 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 [facility] Diagnosis Atrial fibrillation, unspecified type (HCC)- Primary Malignant neoplasm of lung, unspecified laterality, unspecified part of lung (HCC) [facility] Malignant neoplasm of lung, unspecified laterality, unspecified part of lung (HCC)- Primary [facility] Diagnosis Malignant neoplasm of lung, unspecified laterality, unspecified part of lung (HCC)- Primary [facility] Diagnosis Malignant neoplasm of unspecified part of unspecified bronchus or lung (HCC)- Primary documented in this encounter [facility] noteNo assessment information availableL[facility] Work Phone: Evaluation note* Diagnosis Malignant neoplasm of lung, unspecified laterality, unspecified part of lung (HCC)- Primary documented in this encounter [facility]* Diagnosis Malignant neoplasm of unspecified part of unspecified bronchus or lung (HCC) documented in this encounter [facility]* Diagnosis Primary open angle glaucoma (POAG) of both eyes, mild stage (CMS/HCC) [facility] N[facility] No data available for this section [facility] progress note No data available for this section [facility] Summary Purpose Family History No Family History [...] and content) DATE CREATED AUTHOR 08/09/2020 [facility] DATE CREATED AUTHOR AUTHOR'S ORGANIZ ATION 04/22/2022 [facility] DATE CREATED AUTHOR AUTHOR'S ORGANIZ ATION 10/21/2023 [facility] DATE CREATED AUTHOR AUTHOR'S ORGANIZ ATION 11/29/2023 [facility] EPIC DATE CREATED AUTHOR AUTHOR'S ORGANIZ ATION 04/28/2024 [facility] DATE CREATED AUTHOR AUTHOR'S ORGANIZ ATION 05/06/2024 [facility] DATE CREATED AUTHOR AUTHOR'S ORGANIZ ATION 05/06/2024 [facility] Patient Care team informatio n (unrecognized section and content) Accounts Executive Relationship Specialty Start Date End Date Josy Delacruz MD PCP - General Family Medicine 05/26/14 Accounts Executive Relationship Specialty Start Date End Date Josy Delacruz MD PCP - General Family Medicine 05/26/14 Accounts Executive Relationship Specialty Start Date End Date Josy Delacruz MD PCP - General Family Medicine 05/26/14 Accounts Executive Relationship Specialty Start Date End Date Josy Delacruz MD PCP - General Family Medicine 05/26/14 Accounts Executive Relationship Specialty Start Date End Date Josy Delacruz MD PCP - General Family Medicine 05/26/14 Accounts Executive Relationship Specialty Start Date End Date Josy Delacruz MD PCP - General Family Medicine 05/26/14 Accounts Executive Relationship Specialty Start Date End Date Josy Dealcruz MD PCP - General Family Medicine 05/26/14 Team Status: Active Member Role Status Devan Delacruz MD Primary Care Provider Active Team Status: Inactive Member Role Status Devan Delacruz MD Primary Care Provider Active Start: April 22, 2024 End: April 22, 2024 Comfort Bradshaw MD Attending Provider Active Start: April 22, 2024 End: April 22, 2024 Accounts Executive Relationship Specialty Start Date End Date Josy Delacruz MD PCP - General Family Medicine 05/26/14 Accounts Executive Relationship Specialty Start Date End Date Josy Delacruz MD PCP - General Family Medicine 05/26/14 Reason for Visit (unrecogniz ed section and content) Reason Comments Eye Exam Glaucoma Macular Degeneration Cataract Reason Comments Patient Education Reason Comments Lung Cancer Reason Comments Thoracentesis Reason Onset Date Comments Simulation Request Form 04/23/2024 Reason Comments Purchasing Coordinator - Other Reason Comments Future Appointment Purchasing Coordinator - Other Pacemaker Check s During XRT Reason Comments Appointment Orders Reason Comments Radiology NM Specialty Diagnoses / Procedures Referred By Contac t Referred To Contact MOLECULAR & FUNCTIONAL IMAGING Diagnoses Malignant neoplasm of unspecified part of unspecified bronchus or lung (HCC) Procedures NM PET/CT SKULL-THIGH SUBSEQUENT PET IMAGING CT ATTENUATION SKULL [place] [address] [place] [address] Phone: tel: [facility] [address] [place] [address] Phone: tel: Referral ID Status Reason Start Date Expiration Date V isits Requested Visits Authorized [id number] Closed Auto-Generate d Referral 04/26/2024 05/25/2025 1 1 Reason Onset Date Comments Med Refill 05/02/2024 Source Comments (unrecognize d section and content) In the event this informatio n is protected by the Federal Confidentiality of Alcohol and Drug Abuse Patient Records regulations: The Federal rules restrict any use of the information to criminally investigate or prosecute any alcohol or drug abuse patient.[facility] the event this information is protected by the Federal Confidentiality of Alcohol and Drug Abuse Patient Records regulations: The Federal rules restrict any use of the information to criminally investigate or prosecute any alcohol or drug abuse patient.[facility] the event this information is protected by the Federal Confidentiality of Alcohol and Drug Abuse Patient Records regulations: The Federal rules restrict any use of the information to criminally investigate or prosecute any alcohol or drug abuse patient.[facility] the event this information is protected by the Federal Confidentiality of Alcohol and Drug Abuse Patient Records regulations: The Federal rules restrict any use of the information to criminally investigate or prosecute any alcohol or drug abuse patient.[facility] the event this information is protected by the Federal Confidentiality of Alcohol and Drug Abuse Patient Records regulations: The Federal rules restrict any use of the information to criminally investigate or prosecute any alcohol or drug abuse patient.[facility] the event this information is protected by the Federal Confidentiality of Alcohol and Drug Abuse Patient Records regulations: The Federal rules restrict any use of the information to criminally investigate or prosecute any alcohol or drug abuse patient.[facility] the event this information is protected by the Federal Confidentiality of Alcohol and Drug Abuse Patient Records regulations: The Federal rules restrict any use of the information to criminally investigate or prosecute any alcohol or drug abuse patient.[facility] the event this information is protected by the Federal Confidentiality of Alcohol and Drug Abuse Patient Records regulations: The Federal rules restrict any use of the information to criminally investigate or prosecute any alcohol or drug abuse patient.[facility] the event this information is protected by the Federal Confidentiality of Alcohol and Drug Abuse Patient Records regulations: The Federal rules restrict any use of the information to criminally investigate or prosecute any alcohol or drug abuse patient.[facility]woodIn the event this information is protected by the Federal Confidentiality of Alcohol and Drug Abuse Patient Records regulations: The Federal rules restrict any use of the information to criminally investigate or prosecute any alcohol or drug abuse patient.[facility]wood[facility] the event this information is protected by the Federal Confidentiality of Alcohol and Drug Abuse Patient Records regulations: The Federal rules restrict any use of the information to criminally investigate or prosecute any alcohol or drug abuse patient.[facility]wood[facility] the event this information is protected by the Federal Confidentiality of Alcohol and Drug Abuse Patient Records regulations: The Federal rules restrict any use of the information to criminally investigate or prosecute any alcohol or drug abuse patient.[facility]woodIn the event this information is protected by the Federal Confidentiality of Alcohol and Drug Abuse Patient Records regulations: The Federal rules restrict any use of the information to criminally investigate or prosecute any alcohol or drug abuse patient.[facility] Goals (unrecognized section and content) Goals may [...] BE BASED ON THE PRIMARY CLINICAL RECORDS. [facility]. provides no warranty or guarantee of the accuracy or completeness of information in this document.
[2024-05-14 15:00] LABS: Lactate/Lactic Acid 1.4 mmol/L (0.4-2.0)
[2024-05-14] MEDS: BUMETANIDE 10 MG in 0.9 % SODIUM CHLORIDE 160 ML 20 MG IV (16:08)
[2024-05-14] MEDS: LINEZOLID IN DEXTROSE 5% 600 MG/300 ML PIGGYBACK 300 MG IV (16:11)
[2024-05-14 16:17] LABS: Glucometer 196 mg/dL (74-106)
[2024-05-14] MEDS: INSULIN ASPART 300 UNIT/3 ML PEN SUBQ ×2 (16:26→21:21)
[2024-05-14 16:44] LABS: Troponin I High Sensitivity 31.1 pg/mL (4.0-76.1)
[2024-05-14] MEDS: METHYLPREDNISOLONE SOD SUCC PF 125 MG/2 ML VIAL 60 MG IVP (17:17)
[2024-05-14] MEDS: HYDRALAZINE HCL 20 MG/ML VIAL 10 MG IVP (17:17)
[2024-05-14 17:40] LABS: Bilirubin Urine NEGATIVE (NEGATIVE); Blood Urine NEGATIVE (NEGATIVE); Clarity Urine CLEAR (CLEAR); Color Urine LT. YELLOW (YELLOW); Glucose Urine UA >=1000 mg/dL (NEGATIVE); Ketones Urine NEGATIVE (NEGATIVE); Leukocyte Esterase Urine NEGATIVE (NEGATIVE); Nitrite Urine NEGATIVE (NEGATIVE); Protein Urine NEGATIVE (NEG/TRACE); Specific Gravity Urine 1.015 (1.005-1.025); Urobilinogen Urine 0.2 EU/dL (0.2-1.0)
[2024-05-14 17:50] LABS: Bacteria Urine TRACE #/HPF (NONE SEEN); Cast Seen? SEEN #/LPF (NONE SEEN); Crystals Seen? None Seen #/HPF (None Seen); Hyaline Casts Urine RARE; Mucus Urine TRACE (NONE SEEN); RBC Urine NONE SEEN #/HPF (0-2); Squamous Epithelial Cell Urine FEW #/LPF (NONE/RARE); WBC Urine NONE SEEN #/HPF (NONE SEEN)
[2024-05-14 17:51] LABS: Urine Culture Indicated ALREADY ORDERED
--- NOTE | 2024-05-14 20:10 | RESP.RT ---
PEP not done. Pt sleeping with BIPAP on.
[2024-05-14] MEDS: FLUCONAZOLE IN NACL,ISO-OSM 200 MG/100 ML PREMIX 100 MG IV (20:59)
[2024-05-14] MEDS: ENSURE HP 237 ML LIQUID PO (21:14)
[2024-05-14] MEDS: DORZOLAMIDE HCL 2%/TIMOLOL MALEATE 0.5% 200 DROP/10 ML BOTTLE OP (21:14)
[2024-05-14] MEDS: ATORVASTATIN CALCIUM 40 MG TABLET 80 MG PO (21:15)
[2024-05-14] MEDS: POTASSIUM CHLORIDE 10 MEQ ER TABLET PO (21:15)
[2024-05-14 21:22] LABS: Glucometer 164 mg/dL (74-106)
[2024-05-15] VITALS (46 sets, daily range): BP systolic 98–144; BP diastolic 55–89; PULSE 85–154; RESP 16; TEMP 36–36.7; O2SAT 88–99
[2024-05-15] MEDS: METHYLPREDNISOLONE SOD SUCC PF 125 MG/2 ML VIAL 60 MG IVP ×5 (00:36→23:09)
[2024-05-15] MEDS: IPRATROPIUM/ALBUTEROL SULFATE 3 ML AMPUL.NEB IH ×2 (03:24→07:29)
--- NOTE | 2024-05-15 03:36 | RESP.RT ---
Pt placed back on BIPAP 16/8 35% after breathing tx
[2024-05-15] MEDS: LINEZOLID IN DEXTROSE 5% 600 MG/300 ML PIGGYBACK 300 MG IV ×2 (04:29→16:08)
[2024-05-15 05:06] LABS: Basophils Percent Auto 0.1 % (0.2-2.0); Hematocrit 43.9 % (42.0-54.0); Hemoglobin 13.9 g/dL (14.0-18.0); Immature Granulocytes Abs Auto 0.03 10^3/uL (0.00-0.03); Immature Granulocytes Pct Auto 0.4 % (0.0-0.5); Lymphocytes Absolute Auto 0.3 10^3/uL (1.2-3.8); Lymphocytes Percent Auto 3.9 % (20.5-60.0); Mean Corpuscular HGB Conc 31.7 g/dL (29.9-35.2); Mean Corpuscular Hemoglobin 29.3 pg (25.9-34.0); Mean Corpuscular Volume 92.4 fL (80.0-94.0); Mean Platelet Volume 10.7 fL (9.5-13.5); Monocytes Absolute Auto 0.1 10^3/uL (0.3-0.8); Monocytes Percent Auto 1.5 % (1.7-12.0); Neutrophils Absolute Auto 6.8 10^3/uL (1.4-6.5); Neutrophils Percent Auto 94.1 % (43.0-75.0); Platelet Count 238 10^3/uL (150-450); Red Blood Count 4.75 10^6/uL (4.70-6.10); Red Cell Distribution Width 16.4 % (11.0-15.0); White Blood Count 7.2 10^3/uL (4.0-11.0)
[2024-05-15 05:07] LABS: PCO2 VBG 59.3 mmHg (40.0-52.0); pH VBG 7.396 (7.330-7.430)
[2024-05-15 05:33] LABS: Alanine Aminotransferase 35 U/L (16-63); Albumin Globulin Ratio 0.9; Albumin Level 2.6 g/dL (3.4-5.0); Alkaline Phosphatase 81 U/L (46-116); Anion Gap 8.9; Aspartate Amino Transferase 27 U/L (15-37); BUN Creatinine Ratio 27.1; Bilirubin Total 0.9 mg/dL (0.2-1.0); Calcium 9.1 mg/dL (8.5-10.1); Chloride 103 mmol/L (98-107); Estimated GFR (African America >60 (>=60 mL/min/1.73m^2); Estimated GFR (Non-African Ame 51 (>=60 mL/min/1.73m^2); Glucose 182 mg/dL (74-106); Potassium 3.9 mmol/L (3.5-5.1); Sodium 145 mmol/L (136-145); Total Protein 5.6 g/dL (6.4-8.2); Troponin I High Sensitivity 28.5 pg/mL (4.0-76.1)
[2024-05-15] MEDS: PIPERACILLIN SODIUM/TAZOBACTAM 3.375 GM in 0.9 % SODIUM CHLORIDE 50 ML IV ×3 (05:40→21:08)
--- NOTE | 2024-05-15 07:13 | CA_ITS ---
Patient Name: KHADAR RAMOS MR#: [id number] : 1940 Exam Date: 05/15/2024 Ordering Doctor: DR Jaxon Sahu . ECHOCARDIOGRAM REPORT PROCEDURE: CA ECHO W/ CON INDICATIONS: CHF, Follow up from Previous, pacemaker, hypertension, diabetes COMPARISON: None. DESCRIPTION: LIMITED ECHOCARDIOGRAM Real-time transthoracic echocardiography with 2D, M-mode, spectral and color flow Doppler performed. QUALITY: Lumason contrast was administered due to suboptimal imaging for left ventricular opacification to improve delineation of endocardial boarders. Limited echocardiogram per physician order. LEFT VENTRICLE: Normal chamber size. Thickened septal wall. Normal systolic function. LV EF: Normal left ventricular ejection fraction, (>55%). DIASTOLIC: ATRIAL SEPTUM: LEFT ATRIUM: Moderate dilatation. RIGHT ATRIUM: Moderate dilatation. RIGHT VENTRICLE: Moderately dilated. Systolic function is moderately reduced. Pacer wire present. TRICUSPID VALVE: Normal mobility and thickness. MITRAL VALVE: Mildly thickened with normal mobility. There is no mitral annular calcification. AORTIC VALVE: Normal trileaflet appearance. Multifocal calcifications. AORTIC ROOT: Normal diameter and appearance. Ascending aorta is normal in size. PULMONIC VALVE: Normal thickness and mobility. PERICARDIUM: No evidence of pericardial effusion. IVC: Not well visualized. PLEURA: CONCLUSION: 1. The left ventricle is normal in size and exhibits normal systolic function. LVEF is estimated at 55 to 60%. 2. Moderately dilated right ventricle with moderately reduced systolic function. 3. No pericardial effusion. 4. Limited study performed with no Doppler interrogation as requested. Adult Echocardiography Procedure Report Left Ventricle LVEDD (3.7 - 5.6 cm): 3.84 cm LVESD (2.2 - 4.0 cm): 2.37 cm LVIVS thickness (0.6 - 1.2 cm): 1.65 cm LVPW thickness (0.5 - 1.0 cm): 1.03 cm LVOT Diameter 2.44 cm Left Atrium Left Atrium Systolic Dimension: 5.08 cm Mitral Valve Right Ventricle Aorta AO Root Diam: 3.55 cm Ascending Ao Diam: 2.52 cm Aortic Valve Tricuspid Valve Pulmonic Valve Right Atrium Dictated by: Emiliano Núñez M.D. on 05/15/2024 at 20:05 Approved by: Emiliano Núñez M.D. on 05/15/2024 at 20:08
[2024-05-15 07:32] LABS: Glucometer 185 mg/dL (74-106)
[2024-05-15] MEDS: INSULIN ASPART 300 UNIT/3 ML PEN SUBQ ×4 (07:35→21:07)
[2024-05-15] MEDS: METFORMIN HCL 500 MG TABLET PO ×2 (07:35→16:08)
[2024-05-15] MEDS: DIGOXIN 500 MCG/2 ML AMPUL 250 MCG IV ×3 (07:35→20:47)
--- NOTE | 2024-05-15 07:57 | P.PN_ITS ---
Progress Note: Subjective Subjective Interval history: Patient looks better this morning, BiPAP is off, more awake Exam Constitutional Vital Signs, click to edit/add: Last Vital Signs Temp 98.0 F 05/15/24 04:01 Pulse 112 H 05/15/24 07:46 Resp 24 H 05/15/24 05:06 BP 121/78 05/15/24 06:05 Pulse Ox 94 L 05/15/24 07:32 O2 Del Method Nasal Cannula 05/15/24 07:46 O2 Flow Rate 5 05/15/24 07:46 FiO2 35 05/15/24 04:01 Documenting provider has reviewed patient's vital signs: yes Common normals: apparent distress (Mild conversational dyspnea) Respiratory Common normals: abnormal respiratory effort (No conversational dyspnea) Auscultation: rales and rhonchi (Improved air exchange) Cardio Common normals: regular rate, regular rhythm and no murmurs GI Common normals: Normal to inspection, nondistended, normoactive bowel sounds present and soft to palpation; tender (Mild right-sided tenderness) Extremity Common normals: abnormal to inspection (3+ edema) Progress Note: Objective Labs Labs: Short CBC 05/14/24 05/15/24 Range/Units 11:30 04:50 WBC 8.1 7.2 (4.0-11.0) 10^3/uL Hgb 14.4 13.9 L (14.0-18.0) g/dL Hct 47.4 43.9 (42.0-54.0) % Plt Count 241 238 (150-450) 10^3/uL BMP 05/14/24 05/15/24 11:30 04:50 Sodium 143 145 Potassium 4.8 3.9 Chloride 102 103 Carbon Dioxide 33.6 H 37.0 H BUN 36.0 H 36.0 H Creatinine 1.37 H 1.33 H Glucose 201 H 182 H Calcium 9.7 9.1 Liver Function 05/14/24 05/15/24 Range/Units 11:30 04:50 Total Bilirubin 1.0 0.9 (0.2-1.0) mg/dL AST 47 H 27 (15-37) U/L ALT 38 35 (16-63) U/L Alkaline Phosphatase 104 81 (46-116) U/L Albumin 3.2 L 2.6 L (3.4-5.0) g/dL Urine 05/14/24 Range/Units 17:29 Urine Color Lt. yellow (YELLOW) Urine Clarity Clear (CLEAR) Urine pH 5.0 (5.0-9.0) Ur Specific [place] 1.015 (1.005-1.025) Urine Protein Negative (NEG/TRACE) mg/dL Urine Glucose (UA) >=1000 A (NEGATIVE) mg/dL Progress Note: A&P Assessment and Plan (1) Hypoxia: (2) Respiratory distress: (3) Congestive heart failure: Plan Admission findings: Tachycardia, respiratory acidosis,, lactic acidosis acute hypercapnic respiratory failure requiring BiPAP ventilation secondary to acute combined congestive heart failure complicated by pneumonia with white blood cell count normal but left shift consistent with a bacterial process, meeting criteria for severe sepsis (lactic acidosis, tachycardia, respiratory distress, known infection of lungs), unable to give aggressive fluid resuscitation secondary to the 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-troponins negative, repeat BNP is slightly elevated today compared to previous day but just started the diuresis, check echocardiogram Severe sepsis with pneumonia with acute exacerbation of COPD, hypercapnic respiratory failure with respiratory acidosis complicated by his lung cancer creating immune deficiency-possible nosocomial, Zosyn and linezolid, to protect kidneys going with linezolid over vancomycin-maintain this dosing Hypertension-has been hypotensive at times, will monitor closely and adjust medications as needed Tachycardia-possibly drug-induced but will start patient on Lanoxin and change to Xopenex Diabetes mellitus-insulin sliding scale Hypercholesterolemia continue with home medications Atrial fibrillation-continue with Xarelto Moderate protein calorie malnutrition-diet supplement Admission status: Patient with acute hypercapnic respiratory failure secondary to acute combined congestive heart failure secondary to pneumonia with acute exacerbation of COPD, patient admitted to the intensive care unit, medically necessary treatment will span 2 midnights. Inpatient status. ? Urinary Catheter Management Urinary Catheter Management Pure Wick: Cath placed during this visit: yes Urethral indwelling: No Insertion date: 05/14/24 Insertion time: 15:00
--- NOTE | 2024-05-15 08:30 | CM.NOTE ---
Important Message From medicare discussed with pt, pt verbalizes understanding and signs paper. Original given to pt and copy placed on pt's chart.
[2024-05-15 08:39] LABS: A. calcoaceticus-baumannii Cpx NOT DETECTED (NOT DETECTE); Bacteroides fragilis NOT DETECTED (NOT DETECTE); Candida albicans NOT DETECTED (NOT DETECTE); Candida auris NOT DETECTED (NOT DETECTE); Candida glabrata NOT DETECTED (NOT DETECTE); Candida krusei NOT DETECTED (NOT DETECTE); Candida parapsilosis NOT DETECTED (NOT DETECTE); Candida tropicalis NOT DETECTED (NOT DETECTE); Cryptococcus neoformans/gattii NOT DETECTED (NOT DETECTE); Enterobacter cloacae complex NOT DETECTED (NOT DETECTE); Enterobacterales NOT DETECTED (NOT DETECTE); Enterococcus faecalis NOT DETECTED (NOT DETECTE); Enterococcus faecium NOT DETECTED (NOT DETECTE); Haemophilus influenzae NOT DETECTED (NOT DETECTE); Klebsiella aerogenes NOT DETECTED (NOT DETECTE); Klebsiella pneumoniae group NOT DETECTED (NOT DETECTE); Listeria monocytogenes NOT DETECTED (NOT DETECTE); Neisseria meningitidis NOT DETECTED (NOT DETECTE); Proteus spp. NOT DETECTED (NOT DETECTE); Pseudomonas aeruginosa NOT DETECTED (NOT DETECTE); Salmonella spp. NOT DETECTED (NOT DETECTE); Serratia marcescens NOT DETECTED (NOT DETECTE); Staphylococcus epidermidis NOT DETECTED (NOT DETECTE); Staphylococcus lugdunensis NOT DETECTED (NOT DETECTE); Staphylococcus spp. NOT DETECTED (NOT DETECTE); Stenotrophomonas maltophilia NOT DETECTED (NOT DETECTE); Streptococcus agalactiae NOT DETECTED (NOT DETECTE); Streptococcus pneumoniae NOT DETECTED (NOT DETECTE); Streptococcus pyogenes NOT DETECTED (NOT DETECTE); Streptococcus spp. NOT DETECTED (NOT DETECTE)
[2024-05-15] MEDS: SPIRONOLACTONE 25 MG TABLET PO (08:45)
[2024-05-15] MEDS: AMLODIPINE BESYLATE 5 MG TABLET 10 MG PO (08:45)
[2024-05-15] MEDS: ENSURE HP 237 ML LIQUID PO ×2 (08:45→21:03)
[2024-05-15] MEDS: PANTOPRAZOLE SODIUM 40 MG TABLET.DR PO (08:45)
[2024-05-15] MEDS: GLIMEPIRIDE 2 MG TABLET 1 MG PO (08:45)
[2024-05-15] MEDS: CANAGLIFLOZIN 100 MG TABLET PO (08:45)
[2024-05-15] MEDS: LISINOPRIL 20 MG TABLET PO (08:45)
[2024-05-15] MEDS: FISH OIL 1,000 MG CAPSULE 1 MG PO (08:45)
[2024-05-15] MEDS: METOPROLOL TARTRATE 50 MG TABLET PO (08:45)
[2024-05-15] MEDS: MULTIVITAMIN TABLET 1 TAB PO (08:45)
[2024-05-15] MEDS: POTASSIUM CHLORIDE 10 MEQ ER TABLET PO ×2 (08:45→21:03)
[2024-05-15] MEDS: DORZOLAMIDE HCL 2%/TIMOLOL MALEATE 0.5% 200 DROP/10 ML BOTTLE OP ×2 (08:46→20:57)
--- NOTE | 2024-05-15 10:18 | SWNOTE1 ---
Pt does have [facility] coming in.
[2024-05-15 10:26] LABS: Source Blood
--- NOTE | 2024-05-15 10:53 | SWNOTE1 ---
SW met with pt to discuss dc needs. Pt lives at home with his . Pt voiced he does not use any DME to get around. Pt does wear home oxygen at 3 liters, but then stated he did bump it up to 4 liters, on his own. Pt does have [facility], just a nurse, coming in to the home. Pt would like to resume them at discharge. Pt has no further questions or concerns at this time. SW to follow as needed.
[2024-05-15 11:10] LABS: Glucometer 369 mg/dL (74-106)
[2024-05-15] MEDS: BUMETANIDE 10 MG in 0.9 % SODIUM CHLORIDE 160 ML 20 MG IV (11:11)
[2024-05-15] MEDS: IPRATROPIUM BROMIDE 0.5 MG/2.5 ML VIAL.NEB IH ×3 (11:31→23:05)
[2024-05-15] MEDS: LEVALBUTEROL HCL 0.63 MG/3 ML VIAL.NEB IH ×3 (11:31→23:05)
--- NOTE | 2024-05-15 12:37 | SWNOTE1 ---
SW did sent updates to [facility] including; ED note, H&P, physician notes, and PT/OT notes.
[2024-05-15] MEDS: SULFUR HEXAFLUORIDE MICROSPHR 25 MG/5 ML VIAL 10 MG IV (14:04)
[2024-05-15 16:03] LABS: Glucometer 325 mg/dL (74-106)
[2024-05-15] MEDS: RIVAROXABAN 10 MG TABLET 20 MG PO (16:08)
--- NOTE | 2024-05-15 17:50 | PC.NURSE ---
pt aware of transfer to [facility] rm [address]. report called to hector gallardo on [facility]. pt transferred via wheelchair with belongings.
[2024-05-15 19:20] LABS: Glucometer 276 mg/dL (74-106)
[2024-05-15] MEDS: FLUCONAZOLE IN NACL,ISO-OSM 200 MG/100 ML PREMIX IV (20:57)
[2024-05-15] MEDS: LATANOPROST 0.005% 2.5 ML BOTTLE 1 DROP OP (20:59)
[2024-05-15] MEDS: ATORVASTATIN CALCIUM 40 MG TABLET 80 MG PO (21:03)
--- NOTE | 2024-05-15 23:24 | RESP.RT ---
RT offered to place patient on BIPAP for the night to help him sleep. Pt denied need for it and stated he does not feel like it really works. Pt currently on 5L nasal cannula. Sp02 92%.
[2024-05-16] VITALS (25 sets, daily range): BP systolic 113–146; BP diastolic 63–91; PULSE 60–133; TEMP 35.8–36.7; O2SAT 90–96
[2024-05-16] MEDS: LINEZOLID IN DEXTROSE 5% 600 MG/300 ML PIGGYBACK 300 MG IV (03:38)
[2024-05-16] MEDS: IPRATROPIUM BROMIDE 0.5 MG/2.5 ML VIAL.NEB IH ×4 (04:06→23:12)
[2024-05-16] MEDS: LEVALBUTEROL HCL 0.63 MG/3 ML VIAL.NEB IH ×4 (04:06→23:12)
[2024-05-16] MEDS: PIPERACILLIN SODIUM/TAZOBACTAM 3.375 GM in 0.9 % SODIUM CHLORIDE 50 ML IV ×3 (05:15→21:15)
[2024-05-16] MEDS: METHYLPREDNISOLONE SOD SUCC PF 125 MG/2 ML VIAL 60 MG IVP (05:15)
[2024-05-16 06:01] LABS: Basophils Percent Auto 0.1 % (0.2-2.0); Hemoglobin 12.8 g/dL (14.0-18.0); Immature Granulocytes Abs Auto 0.12 10^3/uL (0.00-0.03); Immature Granulocytes Pct Auto 0.7 % (0.0-0.5); Lymphocytes Absolute Auto 0.3 10^3/uL (1.2-3.8); Lymphocytes Percent Auto 1.9 % (20.5-60.0); Mean Corpuscular Hemoglobin 28.8 pg (25.9-34.0); Mean Corpuscular Volume 90.1 fL (80.0-94.0); Mean Platelet Volume 11.1 fL (9.5-13.5); Monocytes Absolute Auto 0.3 10^3/uL (0.3-0.8); Monocytes Percent Auto 2.1 % (1.7-12.0); Neutrophils Absolute Auto 15.6 10^3/uL (1.4-6.5); Neutrophils Percent Auto 95.2 % (43.0-75.0); Platelet Count 263 10^3/uL (150-450); Red Blood Count 4.44 10^6/uL (4.70-6.10); Red Cell Distribution Width 16.2 % (11.0-15.0); White Blood Count 16.3 10^3/uL (4.0-11.0)
[2024-05-16 06:19] LABS: Digoxin 0.8 ng/mL (0.9-2.0)
[2024-05-16 06:33] LABS: Alanine Aminotransferase 28 U/L (16-63); Albumin Level 2.6 g/dL (3.4-5.0); Alkaline Phosphatase 66 U/L (46-116); Anion Gap 8.4; Aspartate Amino Transferase 20 U/L (15-37); Bilirubin Total 0.9 mg/dL (0.2-1.0); Carbon Dioxide 37.3 mmol/L (21.0-32.0); Chloride 101 mmol/L (98-107); Estimated GFR (African America >60 (>=60 mL/min/1.73m^2); Estimated GFR (Non-African Ame 50 (>=60 mL/min/1.73m^2); Globulin 2.7 g/dL; Glucose 209 mg/dL (74-106); Potassium 3.7 mmol/L (3.5-5.1); Sodium 143 mmol/L (136-145); Total Protein 5.3 g/dL (6.4-8.2)
[2024-05-16 07:37] LABS: Glucometer 215 mg/dL (74-106)
--- NOTE | 2024-05-16 07:51 | P.PN_ITS ---
Progress Note: Subjective Subjective Interval history: Looks better this morning, feels better this morning, still some significant peripheral edema and dyspnea with activity, had to bump up supplemental oxygen up to 5 L, he wears 3 at nighttime at home Exam Constitutional Vital Signs, click to edit/add: Last Vital Signs Temp 96.4 F L 05/16/24 04:04 Pulse 110 H 05/16/24 06:00 Resp 18 05/16/24 04:22 BP 122/65 05/16/24 04:04 Pulse Ox 90 L 05/16/24 06:00 O2 Del Method Nasal Cannula 05/16/24 04:22 O2 Flow Rate 5 05/16/24 04:22 FiO2 35 05/15/24 04:01 Documenting provider has reviewed patient's vital signs: yes Common normals: no apparent distress Chest Common normals: inspection of chest normal Respiratory Common normals: normal respiratory effort and no retractions Auscultation: rales (Basis) and rhonchi (Improving) Cardio Common normals: irregular rate and irregular rhythm Rate: tachycardic Rhythm: abnormal rhythm Extremity Common normals: normal to inspection (1-2+ edema-improved) Progress Note: Objective Labs Labs: Short CBC 05/16/24 Range/Units 05:29 WBC 16.3 H (4.0-11.0) 10^3/uL Hgb 12.8 L (14.0-18.0) g/dL Hct 40.0 L (42.0-54.0) % Plt Count 263 (150-450) 10^3/uL BMP 05/16/24 05:29 Sodium 143 Potassium 3.7 Chloride 101 Carbon Dioxide 37.3 H BUN 52.0 H Creatinine 1.37 H Glucose 209 H Calcium 9.0 Liver Function 05/16/24 Range/Units 05:29 Total Bilirubin 0.9 (0.2-1.0) mg/dL AST 20 (15-37) U/L ALT 28 (16-63) U/L Alkaline Phosphatase 66 (46-116) U/L Albumin 2.6 L (3.4-5.0) g/dL Progress Note: A&P Assessment and Plan (1) Hypoxia: (2) Respiratory distress: (3) Congestive heart failure: Plan Admission findings: Tachycardia, respiratory acidosis,, lactic acidosis acute hypercapnic respiratory failure requiring BiPAP ventilation secondary to acute combined congestive heart failure complicated by pneumonia with white blood cell count normal but left shift consistent with a bacterial process, meeting criteria for severe sepsis (lactic acidosis, tachycardia, respiratory distress, known infection of lungs), unable to give aggressive fluid resuscitation secondary to the 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-BNP improved today cardiogram stable, repeat Bumex drip over 20 hours today, edema persisting hypoxia persisting Severe sepsis with pneumonia with acute exacerbation of COPD, hypercapnic respiratory failure with respiratory acidosis complicated by his lung cancer creating immune deficiency-white blood cell count is elevated today but overall condition is improving, could be related to steroid use, maintain current antibiotics were changed to oral linezolid secondary to volume overload from the IV dosing Hypertension-has been hypotensive at times, will monitor closely and adjust medications as needed Tachycardia-possibly ucat-mcwxwla-pylcimuk better with change in medications yesterday, maintain current treatment plan Diabetes mellitus-insulin sliding scale Hypercholesterolemia continue with home medications Atrial fibrillation-continue with Xarelto Moderate protein calorie malnutrition-diet supplement Admission status: Patient with acute hypercapnic respiratory failure secondary to acute combined congestive heart failure secondary to pneumonia with acute exacerbation of COPD, patient admitted to the intensive care unit, medically necessary treatment will span 2 midnights. Inpatient status. ? Urinary Catheter Management Urinary Catheter Management Pure Wiconstanza: Cath placed during this visit: yes, but has since been removed by the nurs e Urethral indwelling: No Insertion date: 05/14/24 Insertion time: 15:00 Removal date: 05/15/24 Removal time: 10:28
[2024-05-16] MEDS: ENSURE HP 237 ML LIQUID PO ×2 (08:51→21:12)
[2024-05-16] MEDS: METFORMIN HCL 500 MG TABLET PO ×2 (08:52→16:39)
[2024-05-16] MEDS: AMLODIPINE BESYLATE 5 MG TABLET 10 MG PO (08:52)
[2024-05-16] MEDS: DIGOXIN 125 MCG TABLET 250 MCG PO (08:52)
[2024-05-16] MEDS: LINEZOLID 600 MG TABLET PO ×2 (08:52→21:12)
[2024-05-16] MEDS: GLIMEPIRIDE 2 MG TABLET 1 MG PO (08:52)
[2024-05-16] MEDS: PANTOPRAZOLE SODIUM 40 MG TABLET.DR PO (08:53)
[2024-05-16] MEDS: MULTIVITAMIN TABLET 1 TAB PO (08:53)
[2024-05-16] MEDS: METOPROLOL TARTRATE 50 MG TABLET PO ×2 (08:53→21:12)
[2024-05-16] MEDS: SPIRONOLACTONE 25 MG TABLET PO (08:53)
[2024-05-16] MEDS: CANAGLIFLOZIN 100 MG TABLET PO (08:53)
[2024-05-16] MEDS: FISH OIL 1,000 MG CAPSULE 1 MG PO (08:53)
[2024-05-16] MEDS: POTASSIUM CHLORIDE 10 MEQ ER TABLET PO ×2 (08:53→21:12)
[2024-05-16] MEDS: LISINOPRIL 20 MG TABLET PO (08:53)
[2024-05-16] MEDS: BUMETANIDE 10 MG in 0.9 % SODIUM CHLORIDE 160 ML IV (08:54)
[2024-05-16] MEDS: DORZOLAMIDE HCL 2%/TIMOLOL MALEATE 0.5% 200 DROP/10 ML BOTTLE OP ×2 (08:54→21:12)
[2024-05-16] MEDS: INSULIN ASPART 300 UNIT/3 ML PEN SUBQ ×4 (08:55→21:11)
--- NOTE | 2024-05-16 10:58 | PT.DAILY ---
Physical Therapy Daily Note PT Daily Note/Assess Start: 05/16/24 10:54 Freq: Status: Active Protocol: Document 05/16/24 10:54 LENY (Rec: 05/16/24 10:58 LENY [id number]) Physical Therapy Daily Note/Assessment Time In/Time Out Time In 09:39 Time Out 10:52 Pain In Pain N/A Pain Out Pain N/A Subjective Subjective Pt sitting in BS chair upon arrival. Agreeable to PT. Denies pain. On 5L O2. 95% SPO2. Therapeutic Exercise Time Therapeutic Exercise 6 Minutes (minutes) Therapeutic Exercise 0 Units Therapeutic Exercise Treatment Therapeutic Exercise Seated Ap, LAQ and marches 10x ea. Standing Treatment strengthening ex HR, marches, HS curls and hip abduction 10x ea CGA. Therapeutic Activity Time Therapeutic Activity 8 Minutes (minutes) Therapeutic Activity 1 Units Therapeutic Activity Treatment Chair Transfer Modified Independent Ability Therapeutic Activity Sit>stand Caryl with IV pole. Pt amb 25' with IV pole Comments SBA with assist for O2 lines. Seated therapeutic rest break taken Spo2 91% with quick recover to 96% with proper breathing techniques. Another gait attempt - sit >stand Caryl. Amb with IV pole another 25' SBA with O2 lines. Remains in BS chair under OT care. Total Physical Therapy Time Total Therapy 14 Minutes Total Physical 1 Therapy Units Summary Daily Note Summary Improved gait endurance. SPO2 dips to 91% with exertion but quickly recovers with therapeutic rest break.
[2024-05-16 11:17] LABS: Glucometer 318 mg/dL (74-106)
--- NOTE | 2024-05-16 11:51 | CM.NOTE ---
Faxed updated PT, labs and Physician notes to [facility].
[2024-05-16] MEDS: METHYLPREDNISOLONE SOD SUCC PF 40 MG/ML VIAL IVP ×3 (11:52→23:41)
[2024-05-16 16:33] LABS: Glucometer 334 mg/dL (74-106)
[2024-05-16] MEDS: RIVAROXABAN 10 MG TABLET 20 MG PO (16:39)
[2024-05-16] MEDS: FLUCONAZOLE IN NACL,ISO-OSM 200 MG/100 ML PREMIX IV (19:22)
[2024-05-16] MEDS: ATORVASTATIN CALCIUM 40 MG TABLET 80 MG PO (21:12)
[2024-05-16] MEDS: LATANOPROST 0.005% 2.5 ML BOTTLE 1 DROP OP (21:13)
[2024-05-16 21:20] LABS: Glucometer 154 mg/dL (74-106)
[2024-05-17] VITALS (9 sets, daily range): BP systolic 136–154; BP diastolic 66–76; PULSE 84–120; TEMP 36.4–36.6; O2SAT 89–97
[2024-05-17] MEDS: IPRATROPIUM BROMIDE 0.5 MG/2.5 ML VIAL.NEB IH (04:04)
[2024-05-17] MEDS: LEVALBUTEROL HCL 0.63 MG/3 ML VIAL.NEB IH (04:04)
[2024-05-17] MEDS: METHYLPREDNISOLONE SOD SUCC PF 40 MG/ML VIAL IVP (05:19)
[2024-05-17] MEDS: PIPERACILLIN SODIUM/TAZOBACTAM 3.375 GM in 0.9 % SODIUM CHLORIDE 50 ML IV (05:19)
[2024-05-17 06:10] LABS: Basophils Percent Auto 0.1 % (0.2-2.0); Hematocrit 44.9 % (42.0-54.0); Hemoglobin 13.9 g/dL (14.0-18.0); Immature Granulocytes Abs Auto 0.21 10^3/uL (0.00-0.03); Lymphocytes Absolute Auto 0.3 10^3/uL (1.2-3.8); Lymphocytes Percent Auto 1.4 % (20.5-60.0); Mean Corpuscular Hemoglobin 28.5 pg (25.9-34.0); Mean Platelet Volume 10.6 fL (9.5-13.5); Monocytes Absolute Auto 0.5 10^3/uL (0.3-0.8); Monocytes Percent Auto 2.3 % (1.7-12.0); Neutrophils Absolute Auto 20.5 10^3/uL (1.4-6.5); Neutrophils Percent Auto 95.2 % (43.0-75.0); Platelet Count 292 10^3/uL (150-450); Red Blood Count 4.88 10^6/uL (4.70-6.10); Red Cell Distribution Width 16.2 % (11.0-15.0); White Blood Count 21.5 10^3/uL (4.0-11.0)
[2024-05-17 06:41] LABS: Alanine Aminotransferase 23 U/L (16-63); Albumin Level 2.8 g/dL (3.4-5.0); Alkaline Phosphatase 66 U/L (46-116); Anion Gap 7.6; Aspartate Amino Transferase 16 U/L (15-37); Bilirubin Total 0.9 mg/dL (0.2-1.0); Calcium 9.5 mg/dL (8.5-10.1); Carbon Dioxide 41.8 mmol/L (21.0-32.0); Chloride 102 mmol/L (98-107); Estimated GFR (African America >60 (>=60 mL/min/1.73m^2); Estimated GFR (Non-African Ame 51 (>=60 mL/min/1.73m^2); Globulin 2.8 g/dL; Glucose 170 mg/dL (74-106); Potassium 3.4 mmol/L (3.5-5.1); Sodium 148 mmol/L (136-145); Total Protein 5.6 g/dL (6.4-8.2)
--- NOTE | 2024-05-17 07:14 | P.DS_ITS ---
DS: Providers Provider Date of admission: 05/14/24 14:07 Primary care physician: Jaxon Sahu MD Consults: 05/14/24 Consult to Dietitian Routine Reason for consultation: Lost weight, poor appetite 05/14/24 13:04 Consult to Pharmacy Routine Consulting Provider: Reason for consultation: Please [place] me when Med Rec is Updated Has provider been notified: No Occupational Therapy Eval and Treat Routine Reason for consultation: Only if needed for Rehab Has provider been notified: No Physical Therapy Eval and Treat Routine Reason for consultation: Eval and Treat Has provider been notified: No DS: Diagnosis Discharge Diagnosis (1) Hypoxia: (2) Respiratory distress: (3) Congestive heart failure: Plan Admission findings: Tachycardia, respiratory acidosis,, lactic acidosis acute hypercapnic respiratory failure requiring BiPAP ventilation secondary to acute combined congestive heart failure complicated by pneumonia with white blood cell count normal but left shift consistent with a bacterial process, meeting criteria for severe sepsis (lactic acidosis, tachycardia, respiratory distress, known infection of lungs), unable to give aggressive fluid resuscitation secondary to the 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-BNP improved today cardiogram stable, repeat Bumex drip over 20 hours today, edema persisting hypoxia persisting Severe sepsis with pneumonia with acute exacerbation of COPD, hypercapnic respiratory failure with respiratory acidosis complicated by his lung cancer creating immune deficiency-white blood cell count is elevated today but overall condition is improving, could be related to steroid use, maintain current antibiotics were changed to oral linezolid secondary to volume overload from the IV dosing Hypertension-has been hypotensive at times, will monitor closely and adjust medications as needed Tachycardia-possibly smjo-bdhzufn-hqvymlbu better with change in medications yesterday, maintain current treatment plan Diabetes mellitus-insulin sliding scale Hypercholesterolemia continue with home medications Atrial fibrillation-continue with Xarelto Moderate protein calorie malnutrition-diet supplement Admission status: Patient with acute hypercapnic respiratory failure secondary to acute combined congestive heart failure secondary to pneumonia with acute exacerbation of COPD, patient admitted to the intensive care unit, medically necessary treatment will span 2 midnights. Inpatient status. DS: Summary Hospital Course Hospital Course: Patient admitted with Tachycardia, respiratory acidosis,, lactic acidosis acute hypercapnic respiratory failure requiring BiPAP ventilation secondary to acute combined congestive heart failure complicated by pneumonia with white blood cell count normal but left shift consistent with a bacterial process, meeting criteria for severe sepsis (lactic acidosis, tachycardia, respiratory distress, known infection of lungs), unable to give aggressive fluid resuscitation secondary to the acute combined congestive heart failure. He did well on BiPAP over the first night, was able to be weaned and exited down to nasal cannula, had significant fluid overload persisting however requiring 2 more days of IV Bumex and treatment for his pneumonia, his white blood cell count has been increasing last 2 days but overall he feels much improved and no fevers, good diuresis although not as much is hoping for with a net of 4 L, diuresed to 9.2 L, at this point we will try patient at home, chance he may need to return if not improving over the next 24 to 36 hours, plan is to have him see me in the office in 2 days. Medications see list. Status at Discharge Overall status at discharge: patient is not back to baseline Time Spent with Patient Time attestation: Total time spent providing and/or coordinating discharge services: Time spent: greater than 30 minutes Exam Constitutional Vital Signs, click to edit/add: Last Vital Signs Temp 97.6 F 05/17/24 03:00 Pulse 102 H 05/17/24 06:01 Resp 18 05/17/24 04:02 BP 154/76 H 05/17/24 03:00 Pulse Ox 94 L 05/17/24 06:01 O2 Del Method Nasal Cannula 05/17/24 04:02 O2 Flow Rate 5 05/17/24 04:02 FiO2 35 05/15/24 04:01 Documenting provider has reviewed patient's vital signs: yes Common normals: no apparent distress Chest Common normals: inspection of chest normal Respiratory Common normals: normal respiratory effort and no retractions Auscultation: rales (Bases) and rhonchi (Unchanged from previous day) Cardio Common normals: irregular rate and irregular rhythm Rate: tachycardic Rhythm: abnormal rhythm Extremity Common normals: abnormal to inspection (1-2+ edema-stable, may be his baseline) DS: Data Data Completed and Pending Labs on day of discharge: Labs from last 24 hours 05/17/24 05/16/24 05/16/24 05:42 21:10 16:32 WBC 21.5 H RBC 4.88 Hgb 13.9 L Hct 44.9 MCV 92.0 MCH 28.5 MCHC 31.0 RDW 16.2 H Plt Count 292 MPV 10.6 Neut % (Auto) 95.2 H Lymph % (Auto) 1.4 L [place] % (Auto) 2.3 Eos % (Auto) 0.0 L Baso % (Auto) 0.1 L Neut # (Auto) 20.5 H Lymph # (Auto) 0.3 L [place] # (Auto) 0.5 Eos # (Auto) 0.0 Baso # (Auto) 0.0 Abs Immat Gran (auto) 0.21 H Imm/Tot Granulo (auto) 1.0 H Sodium 148 H Potassium 3.4 L Chloride 102 Carbon Dioxide 41.8 H Anion Gap 7.6 BUN 55.0 H Creatinine 1.34 H Est GFR ( Amer) >60 Est GFR (Non-Af Amer) 51 L BUN/Creatinine Ratio 41.0 Glucose 170 H Calcium 9.5 Total Bilirubin 0.9 AST 16 ALT 23 Alkaline Phosphatase 66 NT-Pro-B Natriuret Pep 3230.0 H* Total Protein 5.6 L Albumin 2.8 L Globulin 2.8 Albumin/Globulin Ratio 1.0 Digoxin 1.0 POC Glucose 154 H 334 H 05/16/24 05/16/24 11:15 07:35 WBC RBC Hgb Hct MCV MCH MCHC RDW Plt Count MPV Neut % (Auto) Lymph % (Auto) [place] % (Auto) Eos % (Auto) Baso % (Auto) Neut # (Auto) Lymph # (Auto) [place] # (Auto) Eos # (Auto) Baso # (Auto) Abs Immat Gran (auto) Imm/Tot Granulo (auto) Sodium Potassium Chloride Carbon Dioxide Anion Gap BUN Creatinine Est GFR ( Amer) Est GFR (Non-Af Amer) BUN/Creatinine Ratio Glucose Calcium Total Bilirubin AST ALT Alkaline Phosphatase NT-Pro-B Natriuret Pep Total Protein Albumin Globulin Albumin/Globulin Ratio Digoxin POC Glucose 318 H 215 H Preliminary micro results at discharge 05/14/24 11:30 Bacterial ID and Susceptibility - Preliminary Blood - Right Antecubital Anaerobe Identification - Preliminary 05/14/24 17:29 Urine Culture - Preliminary Urine,Clean Catch See Scanned Report 05/14/24 11:40 Blood Culture Result 2 - Preliminary Blood NO GROWTH AT 36-48 HOURS. FINAL TO FOLLOW. Discharge Plan Discharge Disposition: Home, Self-Care Condition: Serious Discharge Medications: New metoprolol tartrate 50 mg Tablet 50 mg PO BID Qty: 60 11RF fluconazole [Diflucan] 200 mg tablet 200 mg PO DAILY Qty: 14 0RF prednisone 10 mg tablet 30 mg PO DAILY Qty: 20 0RF Rx Instructions: 3/day for 3 days, 2/day for 3 days, 1/day for 3 days, 1/2 /day for 4 days digoxin 250 mcg (0.25 mg) tablet 0.25 mg PO DAILY Qty: 30 11RF cefdinir 300 mg capsule 600 mg PO DAILY Qty: 20 0RF cefdinir 300 mg capsule 600 mg PO DAILY Qty: 20 0RF digoxin 250 mcg (0.25 mg) tablet 250 mcg PO DAILY Qty: 30 11RF metoprolol tartrate 50 mg tablet 50 mg PO BID Qty: 60 11RF prednisone 10 mg tablet 30 mg PO DAILY Qty: 20 0RF Rx Instructions: 3/day for 3 days, 2/day for 3 days, 1/day for 3 days, 1/2 /day for 4 days fluconazole [Diflucan] 200 mg tablet 200 mg PO DAILY Qty: 14 0RF Continued glimepiride 2 mg tablet 1 mg PO DAILY lisinopril 20 mg Tablet 20 mg PO QD Qty: 30 11RF furosemide [Lasix] 40 mg tablet 40 mg PO QAM Qty: 30 11RF potassium chloride 10 mEq tablet extended release 10 meq PO BID Qty: 60 11RF amlodipine 10 mg tablet 10 mg PO DAILY Qty: 30 11RF spironolactone 25 mg tablet 25 mg PO QAM atorvastatin 80 mg tablet 80 mg PO DAILY metformin 500 mg tablet 500 mg PO BID pantoprazole 40 mg tablet,delayed release (DR/EC) 40 mg PO DAILY Xarelto 20 mg tablet 20 mg PO DAILY omega [id number]-wwe-fish oil [Fish Oil] 300-1,000 mg capsule 1 cap PO DAILY Jardiance 10 mg tablet 10 mg PO DAILY multivitamin [Daily Multi-Vitamin] Tablet 1 tab PO DAILY dorzolamide-timolol 22.3-6.8 mg/mL drops 1 drp OPHTHALMIC (EYE) BID Patient Comments: both eyes latanoprost 0.005 % drops 1 drp OPHTHALMIC (EYE) QPM Patient Comments: both eyes Discontinued carvedilol 12.5 mg tablet 25 mg PO BIDWM Print Language: Yoruba Forms: Portal Instructions Follow Up Appointments: Viviane Sethi., May 20, 2024 at 10:00
[2024-05-17] MEDS: INSULIN ASPART 300 UNIT/3 ML PEN SUBQ (08:44)
[2024-05-17] MEDS: ENSURE HP 237 ML LIQUID PO (08:45)
[2024-05-17] MEDS: POTASSIUM CHLORIDE 10 MEQ ER TABLET PO (08:46)
[2024-05-17] MEDS: LINEZOLID 600 MG TABLET PO (08:46)
[2024-05-17] MEDS: FISH OIL 1,000 MG CAPSULE 1 MG PO (08:46)
[2024-05-17] MEDS: METOPROLOL TARTRATE 50 MG TABLET PO (08:46)
[2024-05-17] MEDS: MULTIVITAMIN TABLET 1 TAB PO (08:46)
[2024-05-17] MEDS: DIGOXIN 125 MCG TABLET 250 MCG PO (08:46)
[2024-05-17] MEDS: CANAGLIFLOZIN 100 MG TABLET PO (08:47)
[2024-05-17] MEDS: AMLODIPINE BESYLATE 5 MG TABLET 10 MG PO (08:47)
[2024-05-17] MEDS: GLIMEPIRIDE 2 MG TABLET 1 MG PO (08:47)
[2024-05-17] MEDS: LISINOPRIL 20 MG TABLET PO (08:47)
[2024-05-17] MEDS: DORZOLAMIDE HCL 2%/TIMOLOL MALEATE 0.5% 200 DROP/10 ML BOTTLE OP (08:47)
[2024-05-17] MEDS: PANTOPRAZOLE SODIUM 40 MG TABLET.DR PO (08:47)
[2024-05-17] MEDS: METFORMIN HCL 500 MG TABLET PO (08:47)
[2024-05-17] MEDS: SPIRONOLACTONE 25 MG TABLET PO (08:47)
[2024-05-17] MEDS: BUMETANIDE 1 MG/4 ML VIAL 2 MG IVP (08:47)
== END 2024-05-17 10:32 | disposition home or self-care (01) | DRG 871 ==
LOC: ER 13:04 → ICU 14:13 → MS 05-15 18:02
PROVIDERS: Registered Nurse; Admitting Provider Family Medicine; Emergency Provider Emergency Medicine; PCP Family Medicine; Visit Provider Family Medicine
DX: A41.9 Sepsis, unspecified organism (principal); I50.43 Acute on chronic combined systolic (congestive) and diastolic (congestive) heart failure; J96.01 Acute respiratory failure with hypoxia; J96.02 Acute respiratory failure with hypercapnia; J18.9 Pneumonia, unspecified organism; C34.90 Malignant neoplasm of unspecified part of unspecified bronchus or lung; J44.0 Chronic obstructive pulmonary disease with (acute) lower respiratory infection; J44.1 Chronic obstructive pulmonary disease with (acute) exacerbation; E44.0 Moderate protein-calorie malnutrition; D84.9 Immunodeficiency, unspecified; R65.20 Severe sepsis without septic shock; I11.0 Hypertensive heart disease with heart failure; Z66 Do not resuscitate; I25.10 Atherosclerotic heart disease of native coronary artery without angina pectoris; E11.9 Type 2 diabetes mellitus without complications; E78.00 Pure hypercholesterolemia, unspecified; I48.91 Unspecified atrial fibrillation; Z79.01 Long term (current) use of anticoagulants; Z68.24 Body mass index [BMI] 24.0-24.9, adult; Z95.5 Presence of coronary angioplasty implant and graft; Z87.891 Personal history of nicotine dependence; Z95.0 Presence of cardiac pacemaker; Z99.81 Dependence on supplemental oxygen; Z79.84 Long term (current) use of oral hypoglycemic drugs; Z79.899 Other long term (current) drug therapy
CPT/HCPCS: 36415; 36600; 71045; 80048; 80053; 80162; 81001; 82800; 82805; 82948; 83605; 83735; 83880; 84484; 85007; 85025; 85027; 85610; 87040; 87070; 87086; 87150; 87186; 87205; 87804; 87811; 93005; 94640; 94660; 94667; 94668; 94761; 96365; 96375; 97161; 97165; 97530; 99285; C8929; J0360; J1100; J1160; J1940; J2020; J2543; J2919; Q9950

== ENCOUNTER 2024-05-20 07:36 | Outpatient (RCR) | payer MEDICARE, SELFPAY | END 2024-06-02 23:59 | disposition home or self-care (01) | LOC: HEMC 07:36 | PROVIDERS: PCP Family Medicine; Visit Provider Internal Medicine Hematology & Oncology | DX: C34.12 Malignant neoplasm of upper lobe, left bronchus or lung (principal); R91.8 Other nonspecific abnormal finding of lung field; Z87.891 Personal history of nicotine dependence; R59.0 Localized enlarged lymph nodes; R11.2 Nausea with vomiting, unspecified ==

== ENCOUNTER 2024-05-26 13:49 | Inpatient (IN) | payer MEDICARE, SELFPAY ==
[2024-05-26] VITALS (28 sets, daily range): BP systolic 128–180; BP diastolic 58–98; PULSE 56–85; TEMP 36.4–37; O2SAT 87–98; BMI 24.8
[2024-05-26 14:40] LABS: Hematocrit 43.2 % (42.0-54.0); Hemoglobin 13.9 g/dL (14.0-18.0); Mean Corpuscular HGB Conc 32.2 g/dL (29.9-35.2); Mean Corpuscular Hemoglobin 29.4 pg (25.9-34.0); Mean Corpuscular Volume 91.3 fL (80.0-94.0); Mean Platelet Volume 12.7 fL (9.5-13.5); Platelet Count 209 10^3/uL (150-450); Red Blood Count 4.73 10^6/uL (4.70-6.10); Red Cell Distribution Width 16.3 % (11.0-15.0); White Blood Count 13.5 10^3/uL (4.0-11.0)
[2024-05-26 14:53] LABS: Anion Gap 8.2; BUN Creatinine Ratio 28.6; Calcium 8.9 mg/dL (8.5-10.1); Carbon Dioxide 34.2 mmol/L (21.0-32.0); Chloride 102 mmol/L (98-107); Estimated GFR (African America >60 (>=60 mL/min/1.73m^2); Estimated GFR (Non-African Ame 59 (>=60 mL/min/1.73m^2); Glucose 354 mg/dL (74-106); Potassium 4.4 mmol/L (3.5-5.1); Sodium 140 mmol/L (136-145)
[2024-05-26 14:56] LABS: Lymphocytes Absolute Manual 0.67 10^3/uL (1.20-3.80); Monocytes Absolute Manual 0.54 10^3/uL (0.30-0.80); Segmented Neut Absolute Manual 12.28 10^3/uL (1.4-6.5)
[2024-05-26 14:57] LABS: Anisocytosis 1+
[2024-05-26 15:04] LABS: Lactate/Lactic Acid 2.6 mmol/L (0.4-2.0)
[2024-05-26 15:18] LABS: Bilirubin Urine NEGATIVE (NEGATIVE); Blood Urine NEGATIVE (NEGATIVE); Clarity Urine CLEAR (CLEAR); Color Urine LT. YELLOW (YELLOW); Glucose Urine UA >=1000 mg/dL (NEGATIVE); Ketones Urine NEGATIVE (NEGATIVE); Leukocyte Esterase Urine NEGATIVE (NEGATIVE); Nitrite Urine NEGATIVE (NEGATIVE); Protein Urine NEGATIVE (NEG/TRACE); Specific Gravity Urine <=1.005 (1.005-1.025)
[2024-05-26 15:31] LABS: Bacteria Urine NONE SEEN #/HPF (NONE SEEN); Crystals Seen? None Seen #/HPF (None Seen); Mucus Urine NONE SEEN (NONE SEEN); RBC Urine 0-2 #/HPF (0-2); Squamous Epithelial Cell Urine RARE #/LPF (NONE/RARE); WBC Urine NONE SEEN #/HPF (NONE SEEN)
[2024-05-26 15:32] LABS: Cast Seen? NONE SEEN #/LPF (NONE SEEN); Urine Culture Indicated NO
--- NOTE | 2024-05-26 15:52 | ED_ITS ---
HPI HPI - General Adult General Chief complaint: Recheck/Abnormal Lab/Rx Stated complaint: ABNORMAL LAB Time Seen by Provider: 05/26/24 14:09 Source: patient Mode of arrival: walk-in Limitations: no limitations History of Present Illness HPI narrative: 84-year-old male to the emergency department with chief complaint of abnormal labs. He was sent by Dr. Sahu for admission for IV antibiotics. Patient had a recent admission where he was diagnosed with pneumonia. He had blood cultures that were positive for Gemella Spp. He was to follow-up with infectious disease however they referred him for admission for IV antibiotics. Patient reports he remains very tired and fatigued, has no other complaints. He denies any fever, sweats. Related Data Home Medications ?Medication ?Instructions ?Recorded ?Confirmed atorvastatin 80 mg tablet 80 mg PO DAILY 09/23/22 05/14/24 metformin 500 mg tablet 500 mg PO BID 09/23/22 05/14/24 pantoprazole 40 mg tablet,delayed 40 mg PO DAILY 09/23/22 05/14/24 release rivaroxaban 20 mg tablet (Xarelto) 20 mg PO DAILY 09/23/22 05/14/24 dorzolamide 22.3 mg-timolol 6.8 1 drp ophthalmic (eye) BID 01/10/24 05/14/24 mg/mL eye drops empagliflozin 10 mg tablet 10 mg PO DAILY 01/10/24 05/14/24 (Jardiance) latanoprost 0.005 % eye drops 1 drp ophthalmic (eye) QPM 01/10/24 05/14/24 multivitamin (Daily Multi-Vitamin 1 tab PO DAILY 01/10/24 05/14/24 tablet) omega 4-epy-htd-fish oil 300 1 cap PO DAILY 01/10/24 05/14/24 mg-1,000 mg capsule (Fish Oil) glimepiride 2 mg tablet 1 mg PO DAILY 03/31/24 05/14/24 spironolactone 25 mg tablet 25 mg PO QAM 05/14/24 05/14/24 Previous Rx's ?Medication ?Instructions ?Recorded amlodipine 10 mg tablet 10 mg PO DAILY #30 tabs 04/07/24 furosemide 40 mg tablet (Lasix) 40 mg PO QAM #30 tabs 04/07/24 lisinopril 20 mg tablet 20 mg PO QD #30 tabs 04/07/24 potassium chloride 10 mEq 10 meq PO BID #60 tabs 04/07/24 tablet,extended release cefdinir 300 mg capsule 600 mg (2 x 300 mg) PO DAILY #20 05/17/24 caps cefdinir 300 mg capsule 600 mg (2 x 300 mg) PO DAILY #20 05/17/24 caps digoxin 250 mcg (0.25 mg) tablet 0.25 mg PO DAILY #30 tabs 05/17/24 digoxin 250 mcg (0.25 mg) tablet 250 mcg PO DAILY #30 tabs 05/17/24 fluconazole 200 mg tablet 200 mg PO DAILY #14 tabs 05/17/24 (Diflucan) fluconazole 200 mg tablet 200 mg PO DAILY #14 tabs 05/17/24 (Diflucan) metoprolol tartrate 50 mg tablet 50 mg PO BID #60 tabs 05/17/24 metoprolol tartrate 50 mg tablet 50 mg PO BID #60 tabs 05/17/24 prednisone 10 mg tablet 30 mg (3 x 10 mg) PO DAILY #20 tabs 05/17/24 prednisone 10 mg tablet 30 mg (3 x 10 mg) PO DAILY #20 tabs 05/17/24 Allergies Allergy/AdvReac Type Severity Reaction Status Date / Time No Known Drug Allergies Allergy Verified 09/23/22 06:49 Opioid HPI Opioid Management Most Recent Opioid Data: Last Pain Scale 0 05/17/24 08:07 05/17/24 Last Pain Intensity 0 05/16/24 10:54 05/16/24 Last ORT Total Score 0 05/14/24 14:23 05/14/24 Last ORT Risk Category Low Risk 05/14/24 14:23 05/14/24 Review of Systems ROS Status of ROS 10 or more systems reviewed and unremark able except as noted in history and below [facility] Medical History (Updated 05/26/24 @ 15:46 by Kyle Koch MD) Hypoxia ?R09.02 - Hypoxemia (ICD-10) Respiratory distress ?R06.03 - Acute respiratory distress (ICD-10) Congestive heart failure ?I50.9 - Heart failure, unspecified (ICD-10) CAD (coronary artery disease) ?I25.10 - Atherosclerotic heart disease of [place] coronary artery without angina pectoris (ICD-10) Pneumonia ?J18.9 - Pneumonia, unspecified organism (ICD-10) Acute on chronic systolic (congestive) heart failure ?I50.23 - Acute on chronic systolic (congestive) heart failure (ICD-10) Hypoxia ?R09.02 - Hypoxemia (ICD-10) COPD (chronic obstructive pulmonary disease) ?J44.9 - Chronic obstructive pulmonary disease, unspecified (ICD-10) Congestive heart failure ?I50.9 - Heart failure, unspecified (ICD-10) Hematuria ?R31.9 - Hematuria, unspecified (ICD-10) Atrial fibrillation ?I48.91 - Unspecified atrial fibrillation (ICD-10) CHF (congestive heart failure) ?I50.9 - Heart failure, unspecified (ICD-10) Diabetes mellitus ?E11.9 - Type 2 diabetes mellitus without complications (ICD-10) Hypertension ?I10 - Essential (primary) hypertension (ICD-10) Prostate cancer ?C61 - Malignant neoplasm of prostate (ICD-10) Surgical History (Updated 03/31/24 @ 13:37 by Pepper Hanna) Pacemaker ?Z95.0 - Presence of cardiac pacemaker (ICD-10) H/O hernia repair ?Z98.890 - Other specified postprocedural states (ICD-10) ?Z87.19 - Personal history of other diseases of the digestive system (ICD-10) H/O heart artery stent ?Z95.5 - Presence of coronary angioplasty implant and graft (ICD-10) Family History Father Family history of myocardial infarction Family history of CHF (congestive heart failure) Brother Family history of CHF (congestive heart failure) Family history of hypertension Sister Family history of cancer Social History (Updated 03/31/24 @ 13:38 by Pepper Hanna) Within the past year, how often did you have a drink containing alcohol: never Within the past year, how often did you have six or more drinks on one occasion: never Score interpretation: A score less than 4 is consistent with normal alcohol consumption. Smoking status: Former smoker Non-prescribed substance use: denies use Previous occupational history: retired Highest level of school completed/degree received: high school graduate Are you now , , , , never or living with a partner: In a typical week, how many times do you talk on the telephone with family, friends, or neighbors: 3 or more times per week How often do you get together with friends or relatives: 3 or more times per week How often do you attend voodoo or yazdanism services: 4 or more times per year Do you belong to any clubs or organizations such as voodoo groups unions, fraternal or athletic groups, or school groups: no Total score: 3 Score interpretation: A score of greater than or equal to 2 indicates the lowest level of social isolation. Little interest or pleasure in doing things: not at all Feeling down, depressed, or hopeless: not at all Feel stressed/tense/nervous/anxious/difficulty sleeping: not at all Do you think of yourself as: straight/heterosexual Gender Identity: male Exam Narrative Exam Narrative: VITALS: I have reviewed the triage vital signs. GENERAL: Chronically ill elderly male in no distress NEURO: Alert and oriented. Moves all extremities. Face is symmetric and expressive. EYES: PERRL. No scleral icterus or conjunctival injection. No discharge. HENT: Normocephalic, atraumatic. Hearing is grossly intact. Nares grossly patent and without discharge. Mucous membranes moist. Nasal cannula in place. Generally poor dentition. NECK: No JVD. Patient moves neck without restriction. CARDIO: Rhythm regular. Normal rate. No murmur, rub, or gallop. Pulses equal bilaterally in the upper and lower extremity. No lower extremity edema. PULM: Lungs clear to auscultation in all [place]. No wheezes, rales, or rhonchi. No conversational dyspnea. No splinting, stridor, or accessory muscle use. GI/: Abdomen is soft and non-tender. Normoactive bowel sounds. EXTREMITIES: Symmetric muscle bulk. No joint swelling. No clubbing, cyanosis, or deformity. SKIN: Warm and dry. Normal turgor. No rash or lesions appreciated. PSYCH: Mood, affect, and interaction is appropriate to the setting. Constitutional Vital Signs, click to edit/add: Last Vital Signs Temp 98.6 F 05/26/24 14:00 Pulse 63 05/26/24 15:19 Resp 11 L 05/26/24 15:19 BP 149/79 H 05/26/24 15:19 Pulse Ox 96 05/26/24 15:19 O2 Del Method Room Air 05/26/24 15:01 O2 Flow Rate 4 05/26/24 14:00 Course Vital Signs Vital signs: Vital Signs Temperature 98.6 F 05/26/24 14:00 Pulse Rate 85 05/26/24 14:00 Respiratory Rate 20 05/26/24 14:00 Blood Pressure 128/58 05/26/24 14:00 Pulse Oximetry 97 05/26/24 14:00 Oxygen Delivery Method Nasal Cannula 05/26/24 14:00 Oxygen Delivery Flow Rate 4 05/26/24 14:00 Temperature 98.6 F 05/26/24 14:00 Pulse Rate 63 05/26/24 15:19 Respiratory Rate 11 L 05/26/24 15:19 Blood Pressure 149/79 H 05/26/24 15:19 Pulse Oximetry 96 05/26/24 15:19 Oxygen Delivery Method Room Air 05/26/24 15:01 Oxygen Delivery Flow Rate 4 05/26/24 14:00 Medical Decision Making MDM Narrative Medical decision making narrative: 84-year-old male to the emergency department with chief complaint of positive blood cultures. Vital stable, the patient is afebrile. Lab work and cultures x 3 ordered for possible endocarditis workup. Patient agrees with this plan. Lab work reviewed and noted. Mild leukocytosis. His lactate is elevated. He does not meet SIRS criteria at this time. Vancomycin is ordered as empiric coverage for known gram-positive bacteremia. Case discussed with the hospitalist who agrees to admit this patient to his service. Medical Records Medical records reviewed: Yes I reviewed the patient's medical records Lab Data Lab results reviewed: Yes I reviewed the patient's lab results Labs: Lab Results 05/26/24 05/26/24 Range/Units 14:24 15:07 WBC 13.5 H (4.0-11.0) 10^3/uL RBC 4.73 (4.70-6.10) 10^6/uL Hgb 13.9 L (14.0-18.0) g/dL Hct 43.2 (42.0-54.0) % MCV 91.3 (80.0-94.0) fL MCH 29.4 (25.9-34.0) pg MCHC 32.2 (29.9-35.2) g/dL RDW 16.3 H (11.0-15.0) % Plt Count 209 (150-450) 10^3/uL MPV 12.7 (9.5-13.5) fL Seg Neuts % (Manual) 91.0 H (43.0-75.0) Lymphocytes % (Manual) 5.0 L (20.5-60.0) % Monocytes % (Manual) 4.0 (1.7-12.0) % Eosinophils % (Manual) 0.0 L (0.9-7.0) % Basophils % (Manual) 0.0 L (0.2-2.0) % Neutrophils # (Manual) 12.28 H (1.4-6.5) 10^3/uL Lymphocytes # (Manual) 0.67 L (1.20-3.80) 10^3/uL Monocytes # (Manual) 0.54 (0.30-0.80) 10^3/uL Eosinophils # (Manual) 0.00 (0.00-0.70) 10^3/uL Basophils # (Manual) 0.00 (0.00-0.10) 10^3/uL Anisocytosis 1+ Sodium 140 (136-145) mmol/L Potassium 4.4 (3.5-5.1) mmol/L Chloride 102 (98-107) mmol/L Carbon Dioxide 34.2 H (21.0-32.0) mmol/L Anion Gap 8.2 BUN 34.0 H (7.0-18.0) mg/dL Creatinine 1.19 (0.70-1.30) mg/dL Est GFR ( Amer) >60 (>=60 mL/min/1.73m^2) Est GFR (Non-Af Amer) 59 L (>=60 mL/min/1.73m^2) BUN/Creatinine Ratio 28.6 Glucose 354 H (74-106) mg/dL Lactate 2.6 H* (0.4-2.0) mmol/L Calcium 8.9 (8.5-10.1) mg/dL Urine Color Lt. yellow (YELLOW) Urine Clarity Clear (CLEAR) Urine pH 6.0 (5.0-9.0) Ur Specific [place] <=1.005 A (1.005-1.025) Urine Protein Negative (NEG/TRACE) mg/dL Urine Glucose (UA) >=1000 A (NEGATIVE) mg/dL Urine Ketones Negative (NEGATIVE) mg/dL Urine Occult Blood Negative (NEGATIVE) Urine Nitrite Negative (NEGATIVE) Urine Bilirubin Negative (NEGATIVE) Urine Urobilinogen 1.0 (0.2-1.0) EU/dL Ur Leukocyte Esterase Negative (NEGATIVE) Urine RBC 0-2 (0-2) #/HPF Urine WBC None seen (NONE SEEN) #/HPF Ur Squamous Epith Cells Rare (NONE/RARE) #/LPF Urine Crystals None seen (None Seen) #/HPF Urine Bacteria None seen (NONE SEEN) #/HPF Urine Casts None seen (NONE SEEN) #/LPF Urine Mucus None seen (NONE SEEN) Ur Culture Indicated? No Discharge Plan Discharge Chief Complaint: Recheck/Abnormal Lab/Rx Clinical Impression: Bacteremia Patient Disposition: Admitted As Inpatient Time of Disposition Decision: 15:46 Condition: Fair
[2024-05-26] MEDS: VANCOMYCIN HCL 1,250 MG in 0.9 % SODIUM CHLORIDE 250 ML 166.667 MG IV (16:29)
--- NOTE | 2024-05-26 17:43 | ECG_ITS ---
[facility] Test Date: 2024-05-26 Pat Name: KHADAR RAMOS Department: Room: [facility] Gender: Male Undercoater: : 1940 Requested By: [id number] Order Number: [id number] Reading MD: SANJEEV MOREIRA M.D. Measurements Intervals [place] Rate: 68 P: -[id number] DE: -[id number] QRS: 270 QRSD: 120 T: 55 QT: 378 QTc: 396 Interpretive Statements 54761 Atrial fibrillation with aberrant conduction, or ventricular premature complexes 2450 Right bundle branch block 3133 Anterior myocardial infarction, probably old 3634 Inferior myocardial infarction, age undetermined 7100 Abnormal right axis deviation 9150 abnormal ECG Compared to ECG 05/14/2024 11:23:39 No significant change Electronically Signed On 05-26-2024 19:45:19 EDT by SANJEEV MOREIRA M.D.
[2024-05-26 18:04] LABS: Lactate/Lactic Acid 1.5 mmol/L (0.4-2.0)
--- OUTSIDE RECORDS SUMMARY | 2024-05-26 18:20 | XMS_ITS | CCD ---
Author Organization [facility] Team Providers Care Shield Operator Name Role Phone KYA EHAB Shanda Attending Unavailable JAYE FLANAGANAB Shanda Admitting Unavailable JOSY DELACRUZ Referring Unavailable JOSY DELACRUZ Primary Care Unavailable SEVERIANO, LAURA Admitting Unavailable SEVERIANO, LAURA Consulting Unavailable SEVERIANO, LAURA Attending Unavailable NUBIA, DR FERRIS Primary Care Unavailable SEVERIANO, LAURA Attending Unavailable SEVERIANO, LAURA Admitting Unavailable SEVERIANO, LAURA [...] Provider Josy Delacruz MD Primary Care Provider [phone] Comfort Bradshaw MD Attending Provider Josy Delacruz MD Primary Care Provider Comfort Bradshaw MD Attending Provider Josy Delacruz MD Attending Provider Josy Delacruz Admitting Unavailable Hoy, Josy M Attending Unavailable Comfort Bradshaw Admitting Unavailable Comfort Bradshaw Attending Unavailable Hoy, Josy M Primary Care Unavailable ENGELER G JUNO Attending Unavailable ENGELER, G JUNO Referring Unavailable HOY, JOSY M Primary Care Unavailable ENGELER, G JUNO Referring Unavailable HOY, JOSY M Primary Care Unavailable ENGSHILPI G JUNO Attending Unavailable MICHAEL, MEETA Referring Unavailable HOY, JOSY M Primary Care Unavailable ENGELER, G JUNO Referring Unavailable HOY, JOSY M Primary Care Unavailable ENGELER G JUNO Attending Unavailable ENGELER, G JUNO Referring Unavailable HOY, JOSY M Primary Care Unavailable JACKY RUIZ Attending Unavailable CHRIS DIXON Attending Unavailable OMBALLI, CARA Attending Unavailable OMBALLI, MOHAMED Referring Unavailable OMBALLI, MOHAMED Referring Unavailable OMBALLI, NICOLASAMED Attending Unavailable OMBALLI, NICOLASAMED Referring Unavailable OMBALLI, MOHAMED Referring Unavailable UBEROI, RAVINDERA Referring Unavailable OMBALLI, NICOLASAMED Referring Unavailable AARON RIVAS Admitting Unavailable AARON RIVAS Attending Unavailable AARON RIVAS Referring Unavailable CHRIS DIXON Attending Unavailable CHRIS DIXON Attending Unavailable Medications Current Medications Medication Drug Class(es) Dates Sig (Normalized) Sig (Original) Amlodipine (16 sources) Dihydropyridine Calcium Channel Pushpa Start: 04-25-2019 amlodipine Oral, Daily, Refills(s) 0 Start Date: 04/25/19 Status: Ordered take 1 tablet by mouth once syed y amLODIPine (NORVASC) 10 mg tablet Take 10 mg by mouth once daily. Active amLODIPine 10 mg / benazepril hydrochloride 20 mg oral capsule (19 sources) Dihydropyridine Calcium Channel Pushpa, Angiotensin Converting Enzyme Inhibitor Start: 08-12-2018 take 1 capsule by mouth once daily Amlodipine-Benazepril 10-20 mg Capsule Active 1 CAP PO Daily August 12, 2018 12:00am aspirin 81 mg delayed release oral tablet [...] route. Active cefdinir 300 mg oral capsule (13 sources) Cephalosporin Antibacterial take 1 capsule by mouth twice daily cefdinir (OMNICEF) 300 mg capsule Take 300 mg by mouth two times a day. Active cinnamon bark 500 mg oral capsule (14 sources) take 2 capsules by mouth once [...] time. Active DOCOSAHEXANOIC ACID/EPA (FISH OIL ORAL) (14 sources) DOCOSAHEXANOIC ACID/EPA (FISH OIL ORAL) Take [...] 05/02/2025 Active empagliflozin 10 mg oral tablet (16 sources) Sodium-Glucose Cotransporter 2 Inhibitor take 1 tablet by mouth once daily at breakfast empagliflozin (JARDIANCE) 10 mg tablet Take 10 mg by mouth daily with breakfast. Active ferrous sulfate 325 mg delayed release oral tablet (8 sources) Start: take 1 mg by mouth once daily ferrous sulfate 325 mg oral enteric coated tablet mg tab(s), Oral, Daily, Refills(s) 0 Start Date: 04/25/21 Status: Ordered Start: 08-12-2018 take 1 tablet by mouth once da awais Ferrous Sulfate (Iron) 325 mg (65 mg iron) Tablet Active 325 MG PO Daily August 12, 2018 12:00am Fish Oils (3 sources) Start: 04-25-2019 Fish Oil Oral, Refill(s) 0 Start Date: 04/25/19 Status: Ordered fluconazole 200 mg oral tablet (13 sources) Azole Antifungal take 1 tablet by mouth once daily fluconazole (DIFLUCAN) 200 mg tablet Take 200 mg by mouth once daily. Active furosemide 40 mg oral tablet (19 sources) Loop Diuretic Start: 04-25-2021 take 1 [...] IRON,CARB/VIT C/VIT B12/FOLIC (IRON 100 PLUS ORAL) (14 sources) IRON,CARB/VIT C/VIT B12/FOLIC (IRON 100 PLUS ORAL) Take by mouth. Active latanoprost 0.05 mg/ml ophthalmic solution (17 sources) Prostaglandin Analog Start: 05-02-2024 take 1 [...] time. Active lisinopril 20 mg oral tablet (13 sources) Angiotensin Converting Enzyme Inhibitor take 1 tablet by mouth once daily lisinopril (ZESTRIL) 20 mg tablet Take 20 mg by mouth once daily. Active losartan potassium 25 mg oral tablet (3 sources) Angiotensin 2 Receptor Pushpa Start: 04-25-19 22 take 1 mg by mouth once daily [...] Active 500 MG PO Every evening August 12, 2018 12:00am Start: 05-23-2016 metFORMIN (GLU COPHAGE) 500 mg tablet Indications: Cancer of prostate w/med recur risk (T2b-c or [place] 7 or PSA 10-20) ([facility]) 05/23/2016 Active 24 hr metoprolol succinate 50 mg extended release oral tablet (17 sources) beta-Adrenergic Pushpa Start: 04-25-2019 take 1 [...] tablet as directed Orally Active Multivitamin capsule (14 sources) take 1 capsule by mouth once daily Multivitamin capsule Take 1 capsule by mouth once daily. Active pantoprazole 40 mg delayed release oral tablet (19 sources) Proton Pump Inhibitor Start: 10-14-19 take 1 mg by mouth once daily Pantoprazole [address] Tab mg tab(s), Oral, Daily, Refills(s) 0 Start Date: 10/13/22 Status: Ordered potassium chloride 10 meq extended release oral tablet (13 sources) take 1 tablet by mouth twice daily potassium chloride (K-TAB) 10 mEq tablet Take 10 mEq by mouth two times a day. Active predniSONE 10 mg oral tablet (13 sources) take 1 tablet by mouth once daily predniSONE (DELTASONE) 10 mg tablet Take 10 mg by mouth once daily. Active Xarelto (20 sources) Factor Xa Inhibitor Start: 04-25-19 20 Xarelto Oral, Refills(s) 0 Start Date: 04/25/19 Status: Ordered Start: 08-12-2018 take 1 tablet by quyen th once daily Rivaroxaban (Xarelto) 20 mg Tablet Active 20 MG PO Daily August 12, 2018 12:00am Simvastatin (20 sources) HMG-CoA Reductase Inhibitor Start: [...] # 2 tab(s), Refills(s) 0, Pharmacy: [facility]/pharmacy #[id number], 169, cm, 10/13/22 9:51:00 EDT, Height/Length Dosing, 81.2, kg, 10/13/22 9:51:00 EDT, W... Start Date: 10/13/22 Stop Date: 10/15/22 Status: Ordered Problems Active Problems Problem Classification Problem Date Documented Date Episodic/Chronic Cancer of bronchus; lung (9 sources) Malignant tumor of lung; Translations: [Malignant neoplasm of unspecified part of unspecified bronchus or lung] Onset: 04-30-2024 04-21-2024 Chronic Cancer of prostate (17 sources) Malignant tumor of prostate; Translations: [Malignant neoplasm of prostate] Onset: 07-01-2014 04-25-2019 Chronic Cancer; other respiratory and intrathoracic (1 source) Malignant neoplasm of lower respiratory tract 04-25-2024 Chronic Cardiac dysrhythmias (19 sources) Unspecified atrial fibrillation; Translations: [Atrial fibrillation] [...] disease (3 sources) Atherosclerotic heart disease of [place] coronary artery without angina pectoris; Translations: [ASHD [place] W/O ANGINA PECTORIS] Onset: 04-07-2022 Chronic [...] Documented Da te Episodic/Chronic Cancer of prostate (20 sources) Personal history of malignant neoplasm of prostate; Translations: [History of malignant neoplasm of prostate] Onset: 06-09-2015 Episodic Results Test Name Value Interpretation Reference Range Facility Documentationon 05-21-2024 Documentation [id number] Khadar Dawn 1940 M Date Provider Department Center 05/21/2024 CHRIS ARTHUR Family History Problem Relation Age of Onset Other Father Coronary artery disease Brother Other Brother Family Status - Relation Status Age at Father Brother Normal [facility] Urine Cultureon 05-14-2024 Bacteria identified Cx Nom (U) 20,000 colonies/ml mixed bacterial skin contaminants 2 Days PERFORMED BY: [facility] [address] [place] [id number] PATHOLOGIST ADJUNCT PROFESSOR OF ENGLISH CARA GARCIA M.D. Normal [facility] Comment on above: Performed By: #### C UU #### [place] [id number] [facility] Candelario 05-08-2024 CNPN Telephone (RADTSA) KHADAR DAWN ([id number]) 1940 M Date Time Provider Department 05/08/24 Yanelis BRADSHAW During your visit today, we recorded the following information about you: Edyta Gilliland RN 05/08/2024 1:15 PM Signed Message Received: Today [facility] Can we verify pt seeing medonc? Previous Messages ----- Message ----- From: Radiology, O[place] In Sent: 05/01/2024 11:47 AM EST To: MD Madai Lozada Angela, AGGIE 05/08/2024 1:15 PM Signed Call placed to Dr Rodriguez's office. They confirmed he has already seen Dr Rodriguez. They are working on a prior auth for him to start chemo and also an MRI brain he is having done [place] [facility]. Edyta Gilliland RN Allergies As of Date: 05/08/2024 (No Known Allergies) Date Reviewed: 04/16/2024 Reviewed by: Edyta Gilliland RN - Fully Assessed Reason for Visit: Radius Grinder - Other [3602] Future Appointment [256] Prescriptions as of 05/19/2024 - amLODIPine (NORVASC) 10 mg tablet Take [...] once daily. Problem List As Of Date 05/08/2024 Noted Resolved Atrial fibrillation (HCC) [I48.91] 05/28/2014 Hypertension [I10] 05/28/2014 Hyperlipidemia [E78.5] 05/28/2014 Malignant neoplasm of prostate (HCC) [C61] 07/01/2014 History of prostate cancer [Z85.46] 06/09/2015 Encounter Status:Closed by EDYTA GILLILAND on 05/19/24 Normal [facility] Office Visiton 05-05-2024 Follow-up visit [id number] Khadar Dawn 1940 M Date Provider Department Center 05/05/2024 [id number]-RHSJEHCHRIS DIXON CARD [facility] Family History Problem Relation Age of Onset Other Father Coronary artery disease Brother Other Brother Family Status - Relation Status Age at Father Brother Level of Service:53860 IN OFFICE/OUTPATIENT ESTABLISHED MOD MDM 30 MIN Reason for Visit and Comments: Atrial Fibrillation [80] - Denies bleeding on Xarelto. He is now on Toprol XL 50mg instead of Lopresser 75mg bid. Congestive Heart Failure [127] - He was admitted to [facility] last month for CHF. Normal [facility] GLUCOSE, BLOOD (POC)on 04-30 Glucose [Mass/Vol] 95 mg/dL 74 - 99 mg/dL [facility] Comment on above: Location:[facility], [address] [place] [address] , [place], [place], [facility] The Accu-Chek Inform II glucose meter has [...] blood gas instrument) in the above situations. [facility] NM PET/CT SKULL-THIGH SUBQon 04-30-2024 NM [...] * Uptake Time: 53 minutes * Radiopharmaceutical: A58-Moennatajljlhahymx (FDG) COMPARISON: No previous FDG PET/CT available [...] any questions regarding this interpretation, please call [phone]. If you are unable to reach us at the number above, please feel free to contact [facility] eRadiology at [phone]. [id number] Normal [facility] CNPCayla 04-25-2024 [facility] Tele[facility] (RADTSA) KHADAR DAWN ([id number]) 1940 M Date Time Provider Department 04/25/24 [...] patient on Sunday when he is in [place]. Shazia Rooney 04/25/2024 9:44 AM Signed First [...] minutes ago (3:59 PM) Send report to [facility]. I think he will be starting systemic tx Edyta Gilliland RN 05/05/2024 4:06 PM Signed Report was faxed to Dr Rodriguez's office this am. Edyta Gilliland RN Allergies As of Date: 04/25/2024 (No Known Allergies) Date Reviewed: 04/16/2024 Reviewed by: Edyta Gilliland, AGGIE - Fully Assessed Primary Visit Diagnosis:Malignant neoplasm of unspecified part of unspecified bronchus or lung (HCC) [C34.90] Order(s):OH PET/CT SKULL-THIGH SUBSEQUENT [5198096] Order #: [id number] FUTURE Prescriptions as of 05/05/2024 - amLODIPine [...] by Yanelis BRADSHAW on [facility]/24 [facility] Office Visit (RADTSA ) KHADAR DAWN ([id number]) 1940 M Date Time Provider Department 04/23/24 8:30 AM Yanelis BRADSHAW During your visit today, we recorded the following information about you: Yanelis Bradshaw MD 04/23/2024 9:36 AM Signed sim Referring Provider: Yanelis BRADSHAW [[id number]] Allergies As of Date: 04/23/2024 (No Known Allergies) Date Reviewed: 04/16/2024 Reviewed by: Edyta Gilliland, RN - Fully Assessed Primary Visit Diagnosis:Malignant [...] Encounter Status:Closed by Yanelis BRADSHAW on 04/23/24 [facility] Office Visit (RADTSA ) KHADAR DAWN ([id number]) 1940 M Date Time Provider Department 04/23/24 8:00 AM Yanelis BRASDHAW RADTSA During your visit today, we recorded the following information about you: Referring Provider: Yanelis BRADSHAW [[id number]] Allergies As of Date: 04/23/2024 (No Known Allergies) Date Reviewed: 04/16/2024 Reviewed by: Edyta Gilliland RN - Fully Assessed Reason for Visit: Simulation Request Form [0337] Primary Visit Diagnosis:Malignant neoplasm of lung, unspecified laterality, unspecified part of lung (HCC) [C34.90] Order(s):RADIATION TREATMENT PER RADIATION ONCOLOGIST PLAN [1119533] Order #: [id number]: 1 PT ED CANCER [1056323] Order #: [id number]: 1 CT SIM PLANNING RADIATION ONCOLOGY [5037526] Order #: [id number] Prescriptions as of 04/23/2024 - amLODIPine (NORVASC) [...] Encounter Status:Closed by Yanelis BRADSHAW on 04/23/24 [facility] 04-23-2024 CNPN Telephone (RADTSA) KHADAR DAWN ([id number]) 1940 M Date Time Provider Department 04/23/24 Yanelis BRADSHAW [employer] During your visit today, we recorded the [...] AGGIE - Fully Assessed Reason for Visit: Radius Grinder - Other [2566] Prescriptions as of 04/23/2024 - amLODIPine (NORVASC) [...] Encounter Status:Closed by EDYTA GILLILAND on 04/23/24 [facility] CNPN Telephone (Silic[employer] EnergyA) KHADAR DAWN ([id number]) 1940 M Date Time Provider Department 04/23/24 Yanelis BRADSHAW During your visit today, we recorded the following information about you: Edyta Gilliland, RN 04/23/2024 10:22 AM Signed Call placed to [facility] [place] ([phone]). Spoke to Kristi to arrange weekly pacemaker checks. Kristi called rep from [employer] and stated he has a single chamber [...] Assessed Reason for Visit: Future Appointment [256] Radius Grinder - Other [3603] Cmt: Pacemaker Checks During XRT Prescriptions as [...] Encounter Status:Closed by EDYTA GILLILAND on 04/24/24 [facility] Tele[facility] (HEMASA) KHADAR DAWN ([id number]) 1940 M Date Time Provider Department 04/22/24 Yanelis BRADSHAW During your visit today, we recorded the following information about you: Krystle Faye 04/22/2024 8:58 AM Signed Received call from Hui at [facility] radiology asking for images from last Chest XR be pushed over. Patient is there for thoracentesis and the radiologist is not seeing any fluid. I let her know his last XR chest was done at [facility], and the one before that was at [place]. She will call there for images. She [...] Encounter Status:Closed by KRYSTLE FAYE on 04/23/24 Normal [facility] US guide or thoracentesison 04-22-2024 US guide or thoracentesis [facility] Main [place] [id number] Ultrasound Report Signed Patient: Khadar Dawn MR#: [id number] : 1940 Acct:[id number] Age/Sex: 84 / M ADM Date: 04/22/24 Loc: Room: Type: [facility] Attending Dr: Comfort Bradshaw MD Ordering Provider: Yanelis Bradshaw MD Date of Service: 04/22/24 US/US guide or thoracentesis: THORA Copies to: Yanelis Bradshaw MD ULTRASOUND-GUIDED THORACENTESIS INDICATION: REPORTED EFFUSION COMPARISON: NONE US/US guide or thoracentesis FINDINGS/IMPRESSION: ULTRASOUND LEFT CHEST WALL DEMONSTRATE NO FLUID COLLECTION. PROCEDURE NOT PERFORMED. Impression dictated by: Hal Mojica M.D.04/22/2024 2:57 PM Dictation Location: [place] [address] Tech: Javier Vidal Transcribed By: QING 04/22/241456 Dictated By: Hal Mojica MD 04/22/241455 Signed By: 04/22/24 [address] [facility] Candelario 04-21-2024 CNPN Telephone (NCCAP) RICHARDKHADAR ([id number]) 1940 M Date Time Provider Department 04/21/24 Yanelis BRADSHAW During your visit today, we recorded the following information about you: Romi Faust 04/21/2024 8:35 AM Signed Erich from Dr. Rodriguez's office called asking for past progress notes for the patient. He stated that the patient was referred and they have not received any information. Please fax records to [phone]. [facility] 04/21/2024 3:36 PM Signed Consult note faxed to Dr. Rodriguez. Allergies As of Date: 04/21/2024 (No Known Allergies) Date Reviewed: 04/16/2024 Reviewed by: Edyta Gilliland, RN - Fully Assessed Prescriptions as of 04/21/2024 [...] Encounter Status:Closed by KRYSTLE FAYE on 04/21/24 [facility] CNOVon 04-16-2024 CNOV Office Visit (RADTSA ) RICHARDKHADAR Smart ([id number]) 1940 M Date Time Provider Department 04/16/24 [...] Laterality D (more content not included)... Normal [facility] CNPNon 04-16-2024 [facility] Telephone (RADTSA) KHADAR DAWN ([id number]) 1940 M Date Time Provider Department 04/16/24 Yanelis BRADSHAW During your visit today, we recorded the following information about you: Rojelio Guajardo, RN 04/16/2024 2:37 PM Signed PSS/RT: Please schedule [facility] for thoracentis return for sim after treating lung no contrast 15 treatments, no concurrent chemo Need presim consent Nurse ed today Consult with Dr. Ponce to establish care with local rfid systems architect. pt does not want to travel to current rfid systems architect in [place]. Thanks AGGIE Jimenez Jodi 04/17/2024 9:08 AM Signed Waiting on orders to be signed to fax to [facility] Rojelio Guajardo RN 04/18/2024 9:54 AM Signed Order is signed. Please arrange thoracentesis appt lizette. Thanks AGGIE Jimenez Trisha 04/18/2024 11:26 AM Signed Everything is faxed to [facility] for Shazia Perez and I will check with [facility] daily to see when scheduled I called Dr Rosario jaramillo and got a voicemail stating they are away from their desk. I left a message asking them to return my call as I have a referral I would like to get scheduled. Will update when I hear back from them Yolanda Zaragoza 04/18/2024 11:[address] Rosario jaramillo returned my call. Asked if I would fax everything to their referral fax line. They will review and contact the patient for an appointment. All info was faxed to [phone] Will follow up to see when appt is scheduled Shazia Britton 04/18/2024 3:08 PM Signed Patient scheduled at [facility] on 04/22 at 9am. Arrive at 8am [...] and records to DR. Ponce office at [phone]. He is having a thoracentesis on 04/22. She would like records faxed and images pushed of those as well. Thanks so much Shazia Rooney 04/21/2024 2:25 PM Signed Referral was sent to [place] and [place] offices. Confirmed patient to be scheduled in [place] with Dr. Ponce on 04/23 at 3pm. I called [place] office and explained sent by mistake to please disregard. Madai GoodrichKrystle 04/21/2024 2:28 PM Signed Records faxed to Dr. Ponce's [place] office. Allergies As of Date: 04/16/2024 (No Known Allergies) Date Reviewed: 04/16/2024 Reviewed by: Edyta Gilliland, RN - Fully Assessed Reason for Visit: Appointment [186] Orders [681] Primary Visit Diagnosis:Malignant neoplasm of lung, unspecified laterality, unspecified part of lung (HCC) [C34.90] Order(s):BODY FLUID CELL COUNT [SQCCBF] Order #: [id number] FUTURE GLUCOSE, BODY FLUID [SQBFGLUC] Order #: [id number] FUTURE LACTATE DEHYDROGENASE, BODY FLUID [SQBFLDH] Order #: [id number] FUTURE PH BODY FLUID [SQFLPH] Order #: [id number] FUTURE AFB CULTURE AND STAIN [SQAFC] Order #: [id number] FUTURE BACTERIAL CULTURE AND GRAM STAIN, STERILE BODY FLUID [SQBFCUL] Order #: [id number] FUTURE CYTOLOGY NON-HIGH ENERGY FORMING EQUIPMENT OPERATOR [IYY5568] Order #: [id number] FUTURE Prescriptions as of 04/28/2024 - amLODIPine [...] mg by (more content not included)... Normal [facility] 04-15-2024 [facility] Tele[facility] ([facility]) KHADAR DAWN ([id number]) 1940 M Date Time Provider Department 04/15/24 Yanelis BRADSHAW [facility] During your visit today, we recorded the following information about you: Romi Faust 04/15/2024 8:[address] Lane's office called requesting progress notes from the past 12 months. Please fax to [phone]. They are requesting this today as he has an appointment. Thank you Krystle Faye 04/21/2024 2:35 PM Signed Patient does not see Dr. Lane. This fax number is for Dr. Rodriguez. Patient's PCP is Dr. Delacruz. Note will be faxed to Dr. Rodriguez and Dr. Delacruz once it is complete. Allergies As of Date: 04/15/2024 (No Known Allergies) Date Reviewed: 06/05/2018 Reviewed by: Rosalie Allen (Mirna), MIRNA - Fully Assessed Prescriptions as of [...] prostate cancer [Z85.46] 06/09/2015 Encounter Status:Closed by JACLYN FAYENIYAYO Turcios on 04/21/24 Normal [facility] HISTOLOGY - TISSUE EXAMon LAB AP CASE REPORT Normal [facility] Comment on above: Result Comment: Surg ical Pathology Case: [id number] Authorizing Provider: Cara Perez MD Collected: 04/09/2024 1150 Ordering Location: [facility] Main Operating Room Received: 04/09/2024 1256 Pathologist: Brit Grimes MD Specimen: Lung, Left Upper Lobe, OUMAR MASS BX Performed By: #### L [id number] #### [facility] ([facility]) [address] [place] [address] LAB AP CLINICAL INFORMATION Order Diagnoses Normal [facility] Comment on above: Result Comment: R91. 8 - Lung mass [ICD-10-CM] J43.2 - Centrilobular emphysema (CMS/HCC) [ICD-10-CM] J96.11 - Chronic hypoxic respiratory failure (CMS/HCC) [ICD-10-CM] Performed By: #### L [id number] #### [facility] ([facility]) [address] [place] [address] LAB AP DIAGNOSIS COMMENT Normal [facility] Comment on above: Result Comment: Ther e is scant tumor in the tissue block, insufficient for further testing. Performed By: #### L [id number] #### [facility] ([facility]) [address] [place] [address] LAB AP GROSS DESCRIPTION [facility] Comment on above: Result Comment: A. L rudolph, Left Upper Lobe. Part A is received in formalin labeled Khadar Vollmar and OUMAR mass biopsy . It consists of multiple platt-red, irregular pieces of soft tissue measuring 1.0 x 0.5 x 0.2 cm in aggregate. The specimen is submitted in toto in 1 cassette. Lilliam Hitchcock, Pathologists' Way Inspector student Herb Reynoso, Pathologists' Way Inspector Performed By: #### L [id number] #### [facility] ([facility]) [address] [place] [address] LAB AP MICROSCOPIC DESCRIPTION Microscopic examination performed. [facility] Comment on above: Performed By: #### L [id number] #### [facility] ([facility]) [address] [place] [address] LAB AP REPORT FINAL DIAGNOSIS NARRATIVE Normal [facility] Comment on above: Result Comment: Arnol Turcios rudolph, left upper lobe, biopsy: - Sclerotic lung and blood clot with rare strips of malignant glandular cells. - See concurrent cytology report, [id number]. Performed By: #### L [id number] #### [facility] ([facility]) [address] [place] [address] NON-HIGH ENERGY FORMING EQUIPMENT OPERATOR CYTOLOGY - CELLULAR EXAMon 04-09-2024 LAB AP CASE REPORT [facility] Center Comment on above: Result Comment: Non- gynecologic Cytology Case: [id number] Authorizing Provider: Cara Perez MD Collected: 04/09/2024 1139 Ordering Location: [facility] Main Operating Room Received: 04/09/2024 1215 Pathologist: Aaron Shea MD Specimens: A) - Lung, Left Upper Lobe, OUMAR MASS B) - Bronchial washing, left upper lobe, OUMAR BAL C) - Lymph Node Station 7, LN STATION 7 FNA Performed By: #### L [id number] ####[facility] ([facility] [place] [id number] LAB AP CLINICAL INFORMATION PET-avid left apical lung mass (3.4 cm) with multiple, smaller left upper lobe lung nodules, mediastinal adenopathy, former smoker [facility] Comment on above: Performed By: #### L AB13 ####[facility] (BEAKER)[address] [place] [address] LAB AP DIAGNOSIS COMMENT Normal [facility] Comment on above: Result Comment: See also concurrent surgical case, [id number]. There is scant tumor present in the cell block of part A. Performed By: #### L [id number] ####[facility] (BEAKER)[address] [place] [address] LAB AP GROSS DESCRIPTION [facility] Comment on above: Result Comment: A. 4 air-dried slides, 3 alcohol-fixed slides, 30 mL CytoLyt with hazy red fluid and clots B. 17 mL cloudy, red fluid with clots C. 30 mL CytoLyt with clear, pale pink fluid with red/white flecks Performed By: #### L [id number] ####[facility] (BEAKER)[address] [place] [address] LAB AP INTRAOPERATIVE CONSULTATION [facility] Comment on above: Result Comment: A. [...] material submitted.* Performed By: #### L [id number] ####[facility] (BEAKER)[address] [place] [address] LAB AP MICROSCOPIC DESCRIPTION [facility] Comment on above: Result Comment: A. [...] bronchial cells. Performed By: #### L [id number] ####[facility] (BEAKER)[address] [place] [address] LAB AP REPORT FINAL DIAGNOSIS NARRATIVE [facility] Comment on above: Result Comment: A. 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 Lung, left upper lobe, bronchial washing: - Adenocarcinoma C. Lymph Node, Station 7, EBUS-guided fine needle aspiration: - Negative for metastatic malignancy. - Cellular evidence of a lymph node. - Scant lymphoid component. Performed By: #### L [id number] ####[facility] (CRUZITO)[address] [place] [address] NURSNOTEon 04-09-2024 NURSNOTE Report to Emi MARCIAL Normal [facility] POCT GLUCOSE METER UNSOLICIT ED RESULTSon 04-09-2024 Glucose [Mass/Vol] 88 mg/dL Normal 70-105 [facility] Comment on above: Order Comment: Waive d Testing in the ED is performed under the ED CLIA certificate #[id number]. Result Comment: ltol les Performed By: #### L [id number] ####[facility] (RENETTA)[address] [place] [address] Prep for Procedureon 025 Prep for Procedure [id number] Khadar Dawn 1940 M [facility] Provider Department Center 04/09/2024 CARA GONZALES [facility] GIS GEORGEI Family History Problem Relation Age of Onset Other Father Coronary artery disease Brother Other Brother Family Status - Relation Status Age at Father Brother [facility] Abstracton 03-31-2024 Abstract [id number] Khadar Dawn 1940 M [facility] Provider Department Center 03/31/2024 CARA GONZALES [facility] ONC DCC Family History Problem Relation Age of Onset Other Father Coronary artery disease Brother Other Brother Family Status - Relation Status Age at Father Brother [facility] 36on 03-25-2024 36 Per patient's , Dr. Perez's office is requesting cardiac clearance prior to lung biopsy. I'm assuming they'd like him to hold Xarelto but it doesn't say in Dr. Perez's office note. You saw him in clinic 2 weeks ago. Please advise. Thanks. [facility] 29on 03-20-2024 29 Addended by: CARA PEREZ on: 03/27/2024 01:27 PM Modules accepted: Orders [facility] HPon 03-20-2024 HP --- Attestation signed by Cara Perez MD at 03/21/2024 11:55 AM I have seen and examined the patient. I reviewed the resident/fellow note and I agree with the findings and plan. Cara Perez MD Interventional Pulmonary Medicine Pulmonary and Critical Care Medicine [facility] Pul[facility] Visit Note Patient: Khadar Dawn Age: 84 y.o. : 1940 Account No.: [id number] Referring physician: Dr. Delacruz Chief complaint: Lung [...] Atrial fibrillation (CMS/HCC) CHF (congestive heart failure) ([facility]) Coronary artery disease Diabetes mellitus (CMS/[facility]) Hyperkalemia Hyperlipidemia Hypertension Past Surgical [...] mouth in the morning. 09/29/22 Yes Laura العلي NP ferrous sulfate 325 (65 Fe) [...] CARDIOVASCULAR: Re (more content not included)... Normal [facility] Office Visiton 03-20-2024 Follow-up visit [id number] Khadar Dawn 1940 Date Provider Department Center 03/20/2024 383-CARA PEREZ [facility] ONC DCC Family History Problem Relation Age of Onset Other Father Coronary artery disease Brother Other Brother Family Status - Relation Status Age at Father Brother Level of Service:46275 IN OFFICE/OUTPATIENT NEW MODERATE MDM 45 MINUTES (GC) Reason for Visit and Comments: New Patient [632] - Lung mass; abnormal PET SCAN, needs biopsy Normal [facility] 36on 03-10-2024 36 Regarding lab result s from 02/25/2024: MD Kristi Horvath MA Good lipids and BMP. Continue current medications. Recheck lipids and AST ALT in 6 months Patient has follow up today with Dr. Dixon. Normal [facility] Office Visiton 03-10-2024 Follow-up visit [id number] Khadar Dawn 1940 Date Provider Department Center 03/10/2024 [id number] REY [facility] Family History Problem Relation Age of Onset Other Father Coronary artery disease Brother Other Brother Family Status - Relation Status Age at Father Brother Level of Service:69168 IN OFFICE/OUTPATIENT NEW MODERATE MDM 45 MINUTES Reason for Visit and Comments: Wound Check [868806] - S/p PPM implant on 03/03/[address] Rivas. Says he was not given RX for antibiotic. Normal [facility] CBCon 03-03-2024 Erythrocyte distribution width (RBC) [Ratio] 17.1 % High 11.5-15.0 [facility] Comment on above: Performed By: #### L [id number] #### [facility] ([facility]) [address] [place] [address] ERYTHROCYTE MEAN CORPUSCULAR HEMOGLOBIN CONCENTRATION (G/DL) BY AUTOMATED 31.8 g/dL Low 32.0-35.0 [facility] Comment on above: Performed By: #### L [id number] #### [facility] ([facility] [address] [place] [address] Hematocrit (Bld) [Volume fraction] 47.8 % Normal 39.0-55.0 [facility] Comment on above: Performed By: #### L [id number] #### [facility] (BEAKER) [address] [place] [address] Hemoglobin (Bld) [Mass/Vol] 15.2 g/dL Normal 13.0-17.0 [facility] Comment on above: Performed By: #### L [id number] #### [facility] (BEAKER) [address] [place] [address] MCH (RBC) [Entitic mass] 29.5 pg Normal 27.0-33.0 [facility] Comment on above: Performed By: #### L [id number] #### [facility] (BEAKER) [address] [place] [address] MCV (RBC) [Entitic vol] 92.6 fL Normal 82.0-98.0 [facility] Comment on above: Performed By: #### L [id number] #### [facility] (BEAKER) [address] [place] [address] PLATELETS (10*3/UL) IN BLOOD AUTOMATED COUNT 257 10*3/uL Normal 150-400 [facility] Comment on above: Performed By: #### L [id number] #### [facility] [address] [facility] [place] [address] RBC (Bld) [#/Vol] 5.16 10*6/uL Normal 4.20-5.70 [facility] Comment on above: Performed By: #### L [id number] #### [facility] ([facility]) [address] [facility] [place] [address] WBC (Bld) [#/Vol] 13.41 10*3/uL High 4.00-10.60 [facility] Comment on above: Performed By: #### L [id number] #### [facility] ([facility]) [address] [facility] [facility] [place] [address] HPon 03-03-2024 [facility] Cardiology [facility] HPI Khadar Dawn is a 84 y.o. year old male patient being seen for Hospital Follow-up (He was admitted to [facility] last month for CHF. Say he's [...] On Coreg, sylvie (more content not included)... [facility] NURSNOTEon 03-03-2024 NURSNOTE RN educated pt [...] off of unit with all of belongings. Normal [facility] NURSNOTE CHG wipes and betadi ne nasal swabs completed. [facility] 36on 02-25-2024 36 Patient was informed of message from Dr Rivas. Patient was not pleased with having a PPM put in and will need to think about that. Catherine BRADLEY [facility] [address] 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 Order placed. Waiting for patient to call me back so I can inform him. He had lipids drawn this morning, and I was able to add on BMP. [facility] Orders Onlyon 02-25-2024 Orders Only [id number] Khadar Dawn 1940 M Date Provider Department Center 02/25/2024 KRISTI CORNELL Family History Problem Relation Age of Onset Other Father Coronary artery disease Brother Other Brother Family Status - Relation Status Age at Father Brother [facility] Documentationon 02-22-2024 Documentation [id number] Khadar Dawn 1940 M Date Provider Department Center 02/22/2024 CHRIS ARTHUR [facility] Family History Problem Relation Age of Onset Other Father Coronary artery disease Brother Other Brother Family Status - Relation Status Age at Father Brother [facility] Office Visiton 02-08-2024 Follow-up visit [id number] Khadar Dawn 1940 M Date Provider Department Center 02/08/2024 CHRIS ARTHUR Family History Problem Relation Age of Onset Other Father Coronary artery disease Brother Other Brother Family Status - Relation Status Age at Father Brother Level of Service:41489 IN OFFICE/OUTPATIENT ESTABLISHED MOD MDM 30 MIN Reason for Visit and Comments: Hospital Follow-up [832] - He was admitted to [facility] last month for CHF. Say he's feeling much better s/p discharge. Coronary Artery Disease [187] - Denies chest pain. Congestive Heart Failure [127] - Denies SOB, and LE edema resolves by morning. Using O2 at nighttime. Atrial Fibrillation [80] - Denies palpitations, lightheadedness/syncope , and bleeding on Xarelto. Hypertension [177219] Hyperlipidemia [182] Normal [facility] Optical coherence tomography study reporton 11-27-2023 [facility] Radiology Study observation (narrative) [facility] Perimetry studyon 11-27-2023 [facility] Radiology Study observation (narrative) [facility] Urology Office/Clinic Noteon 10-19-2023 Urology Office/Clinic Note Urology Office/Clinic Note Chief Complaint 1 year follow up HPI Staff 1 yr w/ PSA. Dx: BPH with obstruction, hx of prostate cancer *Brachytherapy 2014*, nocturia, renal cyst, gross hematuria. *No urological meds NEG FISH/cytol 10/13/22. S/p Cysto 10/17/22. TAYLA done 10/19/22 at [facility] - results given over the phone. [...] hematuria (R31.0: Gross hematuria) Pt presented to [facility] ER 09/23/22 with gross hematuria. Only [...] up to 8.5 cm. Renal US 10/19/22 TB - bilateral renal cysts favoring benign etiology, also seen on prior MRI and CT studies. -No follow up required Follow-up With When Contact Information ALFIE WISE, Yousuf Barroso, [address] [place] [address]- Additional Instructions: 1 year w/ PSA Patient Education Benign Prostatic Hyperplasia Lianet Torres, personally scribed for Dr. Judge on 10/19/2023 11:19:03. . Documentation recorded by the Lianet agudelod, accurately reflects the services(s) I performed and [...] Oral Allergie (more content not included)... Normal [facility] Comment on above: Result Comment: Elec tronically Signed By: Yousuf JUDGE MD\.br\Date and Time Signed: 10/19/23 11:20 EDT\.br\Electronically Co-Signed By: Lianet Massey.br\Date and Time Co-Signed: 10/19/23 11:19 EDT Office Visiton 09-25-2023 Follow-up visit [id number] Khadar Dawn 1940 M Date Provider Department Center 09/25/2023 [facility] Family History Problem Relation Age of Onset Other Father Coronary artery disease Brother Other Brother Family Status - Relation Status Age at Father Brother Level of Service:19426 IN OFFICE/OUTPATIENT ESTABLISHED LOW MDM 20 MIN Reason for Visit and Comments: Coronary Artery Disease [187] Atrial Fibrillation [80] Normal [facility] CBC AUTO DIFFon 04-20-2022 BASO # 0.0 103/ul Normal 0.0-0.1 [facility] Comment on above: Performed By: #### C BC #### [facility] [address] [address] [address] Nic Marie Basophils/100 WBC (Bld) 0.5 % Normal 0.2-2.0 [facility] Comment on above: Performed By: #### C BC #### [facility] [address] [place] [address] Dr. Nic Marie EO # 0.7 103/ul Normal 0.0-0.7 [facility] Comment on above: Performed By: #### C BC #### [facility] [address] [place] [address] Dr. Nic Marie Eosinophils/100 WBC (Bld) 8.8 % Critically high 0.9-7.0 [facility] Comment on above: Performed By: #### C BC #### [facility] [address] [place] [address] Dr. Nic Marie Erythrocyte distribution width (RBC) [Ratio] 18.0 % Critically high 11.0-15.0 [facility] Comment on above: Performed By: #### C BC #### [facility] [address] [place] [address] Dr. Nic Marie Hematocrit (Bld) [Volume fraction] 44.3 % Normal 42.0-54.0 [facility] Comment on above: Performed By: #### C BC #### [facility] [address] [place] [address] Dr. Nic Marie Hemoglobin (Bld) [Mass/Vol] 13.6 g/dL Critically low 14.0-18.0 [facility] Comment on above: Performed By: #### C BC #### [facility] [address] [place] [address] Dr. Nic Marie IG # 0.05 10e3/ul Critically high 0.00-0.03 [facility] Comment on above: Performed By: #### C BC #### [facility] [address] [place] [address] Dr. Nic Marie IG % 0.6 % Critically high 0.0-0.5 [facility] Comment on above: Performed By: #### C BC #### [facility] [address] [place] [address] Dr. Nic Marie LYMPH # 0.8 103/ul Critically low 1.2-3.8 [facility] Comment on above: Performed By: #### C BC #### [facility] [address] [address] [address] Nic Marie Lymphocytes/100 WBC (Bld) 10.7 % Critically low 20.5-60.0 [facility] Comment on above: Performed By: #### C BC #### [facility] [address] [place] [address] Dr. Nic Marie MANUAL DIFF REQ NO Normal [facility] Comment on above: Performed By: #### C BC #### [facility] [address] [place] [address] Dr. Nic Marie MCH (RBC) [Entitic mass] 24.9 pg Critically low 25.9-34.0 [facility] Comment on above: Performed By: #### C BC #### [facility] [address] [place] [address] Dr. Nic Marie MCHC (RBC) [Mass/Vol] 30.7 g/dL Normal 29.9-35.2 [facility] Comment on above: Performed By: #### C BC #### [facility] [address] [place] [address] Dr. Nic Marie MCV (RBC) [Entitic vol] 81.0 fL Normal 80.0-94.0 [facility] Comment on above: Performed By: #### C BC #### [facility] [address] [address] [address] Nic Marie MONO # 0.9 103/ul Critically high 0.3-0.8 [facility] Comment on above: Performed By: #### C BC #### [facility] [address] [place] [address] Dr. Nic Marie Monocytes/100 WBC (Bld) 11.1 % Normal 1.7-12.0 [facility] Comment on above: Performed By: #### C BC #### [facility] [address] [place] [address] Dr. Nic Marie NEUT # 5.3 103/ul Normal 1.4-6.5 [facility] Comment on above: Performed By: #### C BC #### [facility] [address] [address] [address] Nic Marie Neutrophils/100 WBC (Bld) 68.3 % Normal 43.0-75.0 [facility] Comment on above: Performed By: #### C BC #### [facility] [address] [place] [address] Dr. Nic Marie Platelet mean volume (Bld) [Entitic vol] 10.0 fL Normal 9.5-13.5 [facility] Comment on above: Performed By: #### C BC #### [facility] [address] [place] [address] Dr. Nic Marie PLT 203 103/ul Normal 150-450 [facility] Comment on above: Performed By: #### C BC #### [facility] [address] [place] [address] Dr. Nic Marie RBC 5.47 106/ul Normal 4.70-6.10 [facility] Comment on above: Performed By: #### C BC #### [facility] [address] [place] [address] Dr. Nic Marie WBC 7.8 103/ul Normal 4.0-11.0 [facility] Comment on above: Performed By: #### C BC #### [facility] [address] [place] [address] Dr. Nic Marie LIPID PROFILEon 04-20-2022 CHOL-HDL RATIO NORM SEE BELOW Normal [facility] Comment on above: Result Comment: 3.3 - 4.4 LOW RISK 4.4 - 7.1 AVERAGE RISK 7.1 - 11.0 MODERATE RISK >11.0 HIGH RISK Performed By: #### C MP, LIPID #### [facility] [address] [place] [address] Dr. Nic Marie Cholesterol [Mass/Vol] 108 mg/dL Normal <=200 [facility] Comment on above: Performed By: #### C MP, LIPID #### [facility] [address] [address] [address] Nic Marie Cholesterol in HDL [Mass/Vol] 36 mg/dL Critically low 40-60 [facility] Comment on above: Performed By: #### C MP, LIPID #### [facility] [address] [address] [address] Nic Marie Cholesterol in LDL [Mass/Vol] 54.2 mg/dL Normal [facility] Comment on above: Performed By: #### C MP, LIPID #### [facility] [address] [address] [address] Nic Marie Cholesterol.total/C holesterol in HDL [Mass ratio] 3.0 {ratio} Normal [facility] Comment on above: Performed By: #### C MP, LIPID #### [facility] [address] [address] [address] Nic Marie HDL NORMAL > or = 60 mg/dl - LO W CARDIOVASCULAR RISK <40 mg/dl - HIGH CARDIOVASCULAR RISK Normal [facility] Comment on above: Performed By: #### C MP, LIPID #### [facility] [address] [address] [address] Nic Marie LDL CALC NORMAL SEE BELOW Normal [facility] Comment on above: Result Comment: <100 mg/dl OPTIMAL 100 - 129 mg/dl NEAR OR ABOVE OPTIMAL 130 - 159 mg/dl BORDERLINE HIGH 160 - 189 mg/dl HIGH >190 mg/dl VERY HIGH Performed By: #### C MP, LIPID #### [facility] [address] [address] [address] Nic Marie Triglyceride [Mass/Vol] 89 mg/dL Normal <=150 [facility] Comment on above: Performed By: #### C MP, LIPID #### [facility] [address] [address] [address] Nic Marie VLDL CALC 17.8 mg/dL Normal [facility] Comment on above: Performed By: #### C MP, LIPID #### [facility] [address] [address] [address] Nic Marie PROF 14(COMP METB)on 023 Albumin [Mass/Vol] 3.7 g/dL Normal 3.4-5.0 [facility] Comment on above: Performed By: #### C MP, LIPID #### [facility] [address] [address] [address] Nic Marie Albumin/Globulin [Mass ratio] 1.0 {ratio} Normal [facility] Comment on above: Performed By: #### C MP, LIPID #### [facility] [address] [place] [address] Dr. Nic Marie ALP [Catalytic activity/Vol] 59 U/L Normal 46-116 [facility] Comment on above: Performed By: #### C MP, LIPID #### [facility] [address] [place] [address] Dr. Nic Marie ALT [Catalytic activity/Vol] 28 U/L Normal 16-63 [facility] Comment on above: Performed By: #### C MP, LIPID #### [facility] [address] [place] [address] Dr. Nic Marie Anion gap [Moles/Vol] 12.1 mmol/L Normal [facility] Comment on above: Performed By: #### C MP, LIPID #### [facility] [address] [place] [address] Dr. Nic Marie AST [Catalytic activity/Vol] 18 U/L Normal 15-37 [facility] Comment on above: Performed By: #### C MP, LIPID #### [facility] [address] [address] [address] Nic Marie Bilirubin [Mass/Vol] 0.6 mg/dL Normal 0.2-1.0 [facility] Comment on above: Performed By: #### C MP, LIPID #### [facility] [address] [address] [address] Nic Marie Calcium [Mass/Vol] 9.6 mg/dL Normal 8.5-10.1 [facility] Comment on above: Performed By: #### C MP, LIPID #### [facility] [address] [address] [address] Nic Marie Chloride [Moles/Vol] 104 mmol/L Normal 98-107 [facility] Comment on above: Performed By: #### C MP, LIPID #### [facility] [address] [place] [address] Dr. Nic Marie CO2 [Moles/Vol] 30.3 mmol/L Normal 21.0-32.0 [facility] Comment on above: Performed By: #### C MP, LIPID #### [facility] [address] [place] [address] Dr. Nic Marie Creatinine [Mass/Vol] 0.99 mg/dL Normal 0.70-1.30 [facility] Comment on above: Performed By: #### C MP, LIPID #### [facility] [address] [place] [address] Dr. Nic Marie EGFR-AF GUAMANIAN >60 Normal >=60 [facility] Comment on above: Performed By: #### C MP, LIPID #### [facility] [facility] [address] [place] [address] Dr. Nic Marie EGFR-NON AF GUAMANIAN >60 Normal >=60 [facility] Comment on above: Performed By: #### C MP, LIPID #### [facility] [address] [place] [address] Dr. Nic Marie Globulin (S) [Mass/Vol] 3.6 g/dL Normal [facility] Comment on above: Performed By: #### C MP, LIPID #### [facility] [address] [place] [address] Dr. Nic Marie Glucose [Mass/Vol] 114 mg/dL Critically high 74-106 [facility] Comment on above: Performed By: #### C MP, LIPID #### [facility] [address] [place] [address] Dr. Nic Marie Potassium [Moles/Vol] 4.4 mmol/L Normal 3.5-5.1 [facility] Comment on above: Performed By: #### C MP, LIPID #### [facility] [address] [address] [address] Nic Marie Protein [Mass/Vol] 7.3 g/dL Normal 6.4-8.2 [facility] Comment on above: Performed By: #### C MP, LIPID #### [facility] [address] [address] [address] Nic Marie Sodium [Moles/Vol] 142 mmol/L Normal 136-145 [facility] Comment on above: Performed By: #### C MP, LIPID #### [facility] [address] [address] [address] Nic Marie Urea nitrogen [Mass/Vol] 23.0 mg/dL Critically high 7.0-18.0 [facility] Comment on above: Performed By: #### C MP, LIPID #### [facility] [address] [place] [address] Dr. Nic Marie Urea nitrogen/Creatinine [Mass ratio] 23.2 mg/mg Normal [facility] Comment on above: Performed By: #### C MP, LIPID #### [facility] [address] [address] [address] Nic Marie PROF CHEM 8 (BAS METB)on Anion gap [Moles/Vol] 13.0 mmol/L Normal [facility] Comment on above: Performed By: #### P SAD #### [facility] [address] [address] [address] Nic Marie Calcium [Mass/Vol] 9.0 mg/dL Normal 8.5-10.1 [facility] Comment on above: Performed By: #### P SAD #### [facility] [address] [address] [address] Nic Marie Chloride [Moles/Vol] 100 mmol/L Normal 98-107 [facility] Comment on above: Performed By: #### P SAD #### [facility] [address] [address] [address] Nic Marie CO2 [Moles/Vol] 27.2 mmol/L Normal 21.0-32.0 [facility] Comment on above: Performed By: #### P SAD #### [facility] [address] [address] [address] Nic Marie Creatinine [Mass/Vol] 1.18 mg/dL Normal 0.70-1.30 [facility] Comment on above: Performed By: #### P SAD #### [facility] [address] [address] [address] Nic Marie EGFR-AF GUAMANIAN >60 Normal >=60 [facility] Comment on above: Performed By: #### P SAD #### [facility] [address] [address] [address] Nic Marie EGFR-NON AF GUAMANIAN =60 Normal >=60 [facility] Comment on above: Performed By: #### P SAD #### [facility] [address] [address] [address] Nic Marie Glucose [Mass/Vol] 238 mg/dL Critically high 74-106 [facility] Comment on above: Performed By: #### P SAD #### [facility] [address] [place] [address] Dr. Nic Marie Potassium [Moles/Vol] 4.2 mmol/L Normal 3.5-5.1 [facility] Comment on above: Performed By: #### P SAD #### [facility] [address] [place] [address] Dr. Nic Marie Sodium [Moles/Vol] 136 mmol/L Normal 136-145 [facility] Comment on above: Performed By: #### P SAD #### [facility] [address] [address] [address] Nic Marie Urea nitrogen [Mass/Vol] 30.0 mg/dL Critically high 7.0-18.0 [facility] Comment on above: Performed By: #### P SAD #### [facility] [address] [place] [address] Dr. Nic Marie Urea nitrogen/Creatinine [Mass ratio] 25.4 mg/mg Normal [facility] Comment on above: Performed By: #### P SAD #### [facility] [address] [place] [address] Dr. Nic aMrie CBC W MANUAL DIFFon 05-05-19 22 ANISOCYTOSIS SLIGHT Normal [facility] Comment on above: Performed By: #### C BCMAN #### [facility] [address] [place] [address] Dr. Nic Marie ATYPICAL LYMPH # Normal [facility] Comment on above: Performed By: #### C DAMIAN #### [facility] [address] [place] [address] Dr. Nic Marie ATYPICAL LYMPH % Normal [facility] Comment on above: Performed By: #### C BCSALINA #### [facility] [address] [place] [address] Dr. Nic Marie BAND # Normal 0.0-0.3 [facility] Comment on above: Performed By: #### C DAMIAN #### [facility] [address] [place] [address] Dr. Nic Marie BAND % Normal 0-5 [facility] Comment on above: Performed By: #### C DAMIAN #### [facility] [address] [place] [address] Dr. Nic Marie BASOM # 0.15 103/ul Critically high 0.00-0.10 [facility] Comment on above: Performed By: #### C DAMIAN #### [facility] [address] [place] [address] Dr. Nic Marie BASOM % 1.0 % Normal 0.2-2.0 [facility] Comment on above: Performed By: #### C BCSALINA #### [facility] [address] [place] [address] Dr. Nic Marie BLAST # Normal [facility] Comment on above: Performed By: #### C DAMIAN #### [facility] [address] [place] [address] Dr. Nic Marie BLAST % Normal [facility] Comment on above: Performed By: #### C DAMIAN #### [facility] [address] [place] [address] Dr. Nic Marie CORRECTED WBC Normal 4.0-11.0 [facility] Comment on above: Performed By: #### C BCSALINA #### [facility] [address] [address] [address] Nic Marie EOS # 0.73 103/ul Critically high 0.00-0.70 [facility] Comment on above: Performed By: #### C DAMIAN #### [facility] [address] [address] [address] Nic Marie EOS% 5.0 % Normal 0.9-7.0 [facility] Comment on above: Performed By: #### C DAMIAN #### [facility] [address] [address] [address] Nic Marie HCT 38.1 % Critically low 42.0-54.0 [facility] Comment on above: Performed By: #### C DAMIAN #### [facility] [address] [place] [address] Dr. Nic Marie HGB 10.4 g/dl Critically low 14.0-18.0 [facility] Comment on above: Performed By: #### C DAMIAN #### [facility] [address] [address] [address] Nic Marie HYPOCHROMASIA SLIGHT Normal [facility] Comment on above: Performed By: #### C DAMIAN #### [facility] [address] [address] [address] Nic Marie LYMPHM # 0.58 103/ul Critically low 1.20-3.80 [facility] Comment on above: Performed By: #### C DAMIAN #### [facility] [address] [address] [address] Nic Marie LYMPHM% 4.0 % Critically low 20.5-60.0 [facility] Comment on above: Performed By: #### C DAMIAN #### [facility] [address] [place] [address] Dr. Nic Marie MCH 19.3 pg Critically low 25.9-34.0 [facility] Comment on above: Performed By: #### C DAMIAN #### [facility] [address] [place] [address] Dr. Nic Marie MCHC 27.3 g/dl Critically low 29.9-35.2 [facility] Comment on above: Performed By: #### C DAMIAN #### [facility] [address] [place] [address] Dr. Nic Marie MCV 70.6 fL Critically low 80.0-94.0 [facility] Comment on above: Performed By: #### C BCSALINA #### [facility] [address] [place] [address] Dr. Nic Marie METAMYELOCYTE # Normal [facility] Comment on above: Performed By: #### C DAMIAN #### [facility] [address] [place] [address] Dr. Nic Marie METAMYELOCYTE % Normal [facility] Comment on above: Performed By: #### C DAMIAN #### [facility] [address] [place] [address] Dr. Nic Marie MONOM# 0.58 103/ul Normal 0.30-0.80 [facility] Comment on above: Performed By: #### C DAMIAN #### [facility] [address] [place] [address] Dr. Nic Marie MONOM% 4.0 % Normal 1.7-12.0 [facility] Comment on above: Performed By: #### C DAMIAN #### [facility] [address] [place] [address] Dr. Nic Marie MPV 9.7 fL Normal 9.5-13.5 [facility] Comment on above: Performed By: #### C DAMIAN #### [facility] [address] [place] [address] Dr. Nic Marie MYELOCYTE # Normal [facility] Comment on above: Performed By: #### C DAMIAN #### [facility] [address] [place] [address] Dr. Nic Marie MYELOCYTE % Normal [facility] Comment on above: Performed By: #### C DAMIAN #### [facility] [address] [place] [address] Dr. Nic Marie NRBC Normal [facility] Comment on above: Performed By: #### C DAMIAN #### [facility] [address] [address] [address] Nic Marie PLT 347 103/ul Normal 150-450 [facility] Comment on above: Performed By: #### C DAMIAN #### [facility] [address] [address] [address] Nic Marie RBC 5.40 106/ul Normal 4.70-6.10 [facility] Comment on above: Performed By: #### C DAMIAN #### [facility] [address] [address] [address] Nic Marie RDW 22.2 % Critically high 11.0-15.0 [facility] Comment on above: Performed By: #### C DAMIAN #### [facility] [address] [address] [address] Nic Marie SEG # 12.56 103/ul Critically high 1.40-6.50 [facility] Comment on above: Performed By: #### C DAMIAN #### [facility] [address] [address] [address] Nic Marie SEG % 86.0 % Critically high 43.0-75.0 [facility] Comment on above: Performed By: #### C DAMIAN #### [facility] [address] [address] [address] Nic Marie WBC 14.6 103/ul Critically high 4.0-11.0 [facility] Comment on above: Performed By: #### C DAMIAN #### [facility] [address] [address] [address] Nic Marie GLYCOHEMOGLOBIN A1Con 2021 ADA RECOMMENDATION ADA THERAPEUTIC TARG ET 6.0 - 7.0 ACTION SUGGESTED > 7.0 [facility] Comment on above: Performed By: #### A 1C #### [facility] [address] [address] [address] Nic Marie Glucose [Mass/Vol] 171 mg/dL Normal [facility] Comment on above: Performed By: #### A 1C #### [facility] [address] [address] [address] Nic Marie HbA1c (Bld) [Mass fraction] 7.6 % Critically high <=6.0 [facility] Comment on above: Performed By: #### A 1C #### [facility] [address] [address] [address] Nic Marie LIPID PROFILEon 05-04-2021 CHOL-HDL RATIO NORM SEE BELOW Normal [facility] Comment on above: Result Comment: 3.3 - 4.4 LOW RISK 4.4 - 7.1 AVERAGE RISK 7.1 - 11.0 MODERATE RISK >11.0 HIGH RISK Performed By: #### L IPID, TSH, MG, CMP #### [facility] [address] [address] [address] Nic Marie Cholesterol [Mass/Vol] 97 mg/dL Normal <=200 [facility] Comment on above: Performed By: #### L IPID, TSH, MG, CMP #### [facility] [address] [address] [address] Nic Marie Cholesterol in HDL [Mass/Vol] 34 mg/dL Normal [facility] Comment on above: Performed By: #### L IPID, TSH, MG, CMP #### [facility] [address] [address] [address] Nic Marie Cholesterol in LDL [Mass/Vol] 49.2 mg/dL Normal [facility] Comment on above: Performed By: #### L IPID, TSH, MG, CMP #### [facility] [address] [address] [address] Nic Marie Cholesterol.total/C holesterol in HDL [Mass ratio] 2.9 {ratio} Normal [facility] Comment on above: Performed By: #### L IPID, TSH, MG, CMP #### [facility] [address] [address] [address] Nic Marie HDL NORMAL > or = 60 mg/dl - LO W CARDIOVASCULAR RISK <40 mg/dl - HIGH CARDIOVASCULAR RISK Normal [facility] Comment on above: Performed By: #### L IPID, TSH, MG, CMP #### [facility] [address] [address] [address] Nic Marie LDL CALC NORMAL SEE BELOW Normal [facility] Comment on above: Result Comment: <100 mg/dl OPTIMAL 100 - 129 mg/dl NEAR OR ABOVE OPTIMAL 130 - 159 mg/dl BORDERLINE HIGH 160 - 189 mg/dl HIGH >190 mg/dl VERY HIGH Performed By: #### L IPID, TSH, MG, CMP #### [facility] [address] [address] [address] Nic Marie Triglyceride [Mass/Vol] 69 mg/dL Normal <=150 [facility] Comment on above: Performed By: #### L IPID, TSH, MG, CMP #### [facility] [address] [address] [address] Nic Marie VLDL CALC 13.8 mg/dL Normal [facility] Comment on above: Performed By: #### L IPID, TSH, MG, CMP #### [facility] [address] [place] [address] Dr. Nic Marie MAGNESIUMon 05-04-2021 Magnesium [Mass/Vol] 1.6 mg/dL Normal 1.6-2.3 [facility] Comment on above: Performed By: #### L IPID, TSH, MG, CMP #### [facility] [address] [place] [address] Dr. Nic Marie PROF 14(COMP METB)on 022 Albumin [Mass/Vol] 3.8 g/dL Normal 3.5-5.0 [facility] Comment on above: Performed By: #### L IPID, TSH, MG, CMP #### [facility] [address] [address] [address] Nic Marie Albumin/Globulin [Mass ratio] 1.0 {ratio} Normal [facility] Comment on above: Performed By: #### L IPID, TSH, MG, CMP #### [facility] [address] [address] [address] Nic Marie ALP [Catalytic activity/Vol] 69 U/L Normal 38-126 [facility] Comment on above: Performed By: #### L IPID, TSH, MG, CMP #### [facility] [address] [place] [address] Dr. Nic Marie ALT [Catalytic activity/Vol] 26 U/L Normal 21-72 [facility] Comment on above: Performed By: #### L IPID, TSH, MG, CMP #### [facility] [address] [place] [address] Dr. Nic Marie Anion gap [Moles/Vol] 8.5 mmol/L Normal [facility] Comment on above: Performed By: #### L IPID, TSH, MG, CMP #### [facility] [address] [place] [address] Dr. Nic Marie AST [Catalytic activity/Vol] 16 U/L Critically low 17-59 [facility] Comment on above: Performed By: #### L IPID, TSH, MG, CMP #### [facility] [address] [place] [address] Dr. Nic Marie Bilirubin [Mass/Vol] 0.7 mg/dL Normal 0.2-1.3 [facility] Comment on above: Performed By: #### L IPID, TSH, MG, CMP #### [facility] [address] [place] [address] Dr. Nic Marie Calcium [Mass/Vol] 9.4 mg/dL Normal 8.4-10.2 [facility] Comment on above: Performed By: #### L IPID, TSH, MG, CMP #### [facility] [address] [place] [address] Dr. Nic Marie Chloride [Moles/Vol] 104 mmol/L Normal 98-107 [facility] Comment on above: Performed By: #### L IPID, TSH, MG, CMP #### [facility] [address] [place] [address] Dr. Nic Marie CO2 [Moles/Vol] 30.9 mmol/L Critically high 22.0-30.0 [facility] Comment on above: Performed By: #### L IPID, TSH, MG, CMP #### [facility] [address] [address] [address] Nic Marie Creatinine [Mass/Vol] 1.03 mg/dL Normal 0.66-1.25 [facility] Comment on above: Performed By: #### L IPID, TSH, MG, CMP #### [facility] [address] [address] [address] Nic Marie EGFR-AF GUAMANIAN >60 Normal >=60 [facility] Comment on above: Performed By: #### L IPID, TSH, MG, CMP #### [facility] [address] [address] [address] Nic Marie EGFR-NON AF GUAMANIAN >60 Normal >=60 [facility] Comment on above: Performed By: #### L IPID, TSH, MG, CMP #### [facility] [address] [place] [address] Dr. Nic Marie Globulin (S) [Mass/Vol] 3.7 g/dL Normal [facility] Comment on above: Performed By: #### L IPID, TSH, MG, CMP #### [facility] [address] [address] [address] Nic Marie Glucose [Mass/Vol] 121 mg/dL Critically high 74-106 [facility] Comment on above: Performed By: #### L IPID, TSH, MG, CMP #### [facility] [address] [address] [address] Nic Marie Potassium [Moles/Vol] 4.4 mmol/L Normal 3.4-5.0 [facility] Comment on above: Performed By: #### L IPID, TSH, MG, CMP #### [facility] [address] [address] [address] Nic Marie Protein [Mass/Vol] 7.5 g/dL Normal 6.1-8.2 [facility] Comment on above: Performed By: #### L IPID, TSH, MG, CMP #### [facility] [address] [address] [address] Nic Marie Sodium [Moles/Vol] 139 mmol/L Normal 137-145 [facility] Comment on above: Performed By: #### L IPID, TSH, MG, CMP #### [facility] [address] [place] [address] Dr. Nic Marie Urea nitrogen [Mass/Vol] 21.0 mg/dL Critically high 9.0-20.0 [facility] Comment on above: Performed By: #### L IPID, TSH, MG, CMP #### [facility] [address] [address] [address] Nic Marie Urea nitrogen/Creatinine [Mass ratio] 20.4 mg/mg Normal [facility] Comment on above: Performed By: #### L IPID, TSH, MG, CMP #### [facility] [address] [place] [address] Dr. Nic Marie TSHon 05-04-2021 TSH 1.553 uIU/mL Normal 0.470-4.680 [facility] Comment on above: Performed By: #### L IPID, TSH, MG, CMP #### [facility] [address] [place] [address] Dr. Nic Marie TSH RANGE SEE BELOW Normal [facility] Comment on above: Result Comment: <0.3 4 UIU/ml HYPERTHYROID 0.34-5.60 UIU/ml EUTHYROID >5.60 UIU/ml HYPOTHYROID Performed By: #### L IPID, TSH, MG, CMP #### [facility] [address] [place] [address] Dr. Nic Marie Cardiovascular Lab Reporton 08-03-2020 Cardiovascular Lab Report [facility] MR #: [id number] Department of Physician: Alexa Campbell M.D. Division of Service Date: 08/03/2020 Cardiology Birthdate: 1940 Adult Cardiovascular Room #: [place] [address] Cardiovascular Laboratory Report FINAL IMPRESSIONS: 1. Severe [...] right internal jugular vein was obtained. A 6-Maltese x 11 cm sheath was inserted without [...] to access the left radial artery. A 6-Maltese glide sheath was inserted without difficulty. Bilateral selective coronary angiography was performed using JR4 and JL4 catheters. After reviewing the images, it was elected to proceed with an interventional procedure. A 6-Maltese JR4 guide catheter was advanced over J-wire [...] stenosis. (more content not included)... Normal [facility] Vital Signs Date Time Vital Sign Value Performing Clinician Facility 04-16-2024 12:56-0500 Body mass index (BMI) [Ratio] 26.77 kg/m2 OMERO Bradshaw MD Work Phone: [facility] 04-16-2024 12:56-0500 Body temperature 96.69 [degF] OMERO Bradshaw MD Work Phone: [facility] 04-16-2024 12:56-0500 Body weight 75.2 kg OMERO Bradshaw MD Work Phone: [facility] 04-16-2024 12:56-0500 Diastolic blood pressure 72 mm[Hg] OMERO Bradshaw MD Work Phone: [facility] 04-16-2024 12:56-0500 Respiratory rate 18 /min OMERO Bradshaw MD Work Phone: [facility] 04-16-2024 12:56-0500 SaO2% (BldA) [Mass fraction] 88 % OMERO Bradshaw MD Work Phone: [facility] 04-16-2024 12:56-0500 Systolic blood pressure 121 mm[Hg] OMERO Bradshaw MD Work Phone: [facility] 10-19-2023 10:55-0400 Blood Pressure Location Yousuf JUDGE [facility] 10-19-2023 10:55-0400 Diastolic blood pressure 70 mm[Hg] Yousuf JUDGE [facility] 10-19-2023 10:55-0400 Heart rate 16 /min Yousuf JUDGE [facility] 10-19-2023 10:55-0400 Respiratory rate 16 /min Yousuf JUDGE [facility] 10-19-2023 10:55-0400 Systolic blood pressure 130 mm[Hg] Yousuf JUDGE [facility] 10-13-2022 09:35-0400 Blood Pressure Location Yousuf JUDGE [facility] 10-13-2022 09:35-0400 Diastolic blood pressure 78 mm[Hg] Yousuf JUDGE [facility] 10-13-2022 09:35-0400 Heart rate 69 /min Yousuf JUDGE [facility] 10-13-2022 09:35-0400 Respiratory rate 16 /min Yousuf JUDGE [facility] 10-13-2022 09:35-0400 Systolic blood pressure 132 mm[Hg] Yousuf JUDGE [facility] Encounters Encounter Date Encounter Type Care Provider Facility Start: 10-20-2024 ambulatory Yousuf JUDGE Facili ty:[facility] Start: 05-14-2024 End: 05-14-2024 ambulatory Josy Delacruz MD Work Phone: [facility] Work Phone: Start: 05-14-2024 End: 05-14-2024 Departed Referred Josy Delacruz MD Work Phone: 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, mild stage (CMS/HCC) Start: 04-30-2024 End: 04-30-2024 ambulatory Yanelis BRADSHAW Facility:[facility] Start: 04-30-2024 End: 04-30-2024 Subsequent hospital [...] Work Phone: Radiation Oncology Comment on above: Radius Grinder - O ther Future Appointment; Radius Grinder - Other (Pacemaker Checks During XRT) Start: 04-23-2024 End: 04-23-2024 ambulatory Yanelis BRADSHAW Facility:[facility] Start: 04-23-2024 End: 04-25-2024 Patient encounter procedure Yanelis Bradshaw MD Work Phone: Radiation Oncology Comment on above: Malignant neoplasm o f lung, unspecified laterality, unspecified part of lung (HCC) (Primary Dx) Start: 04-22-2024 End: 04-23-2024 Telephone encounter Yanelis Bradshaw MD Work Phone: Hematology/Oncology Comment on above: Thoracentesis Start: 04-22-2024 End: 04-22-2024 Admission to same day surgery center Josy Delacruz MD Work Phone: [facility]-Ultrasound Main [place] Work Phone: Start: 04-22-2024 End: 04-22-2024 ambulatory Josy Delacruz MD Work Phone: [facility] Work Phone: Start: 04-21-2024 End: 04-21-2024 Telephone encounter [facility]elis Bradshaw MD [facility] Start: 04-16-2024 End: 04-28-2024 Telephone encounter Yanelis Bradshaw MD Work Phone: Radiation Oncology Comment on above: Appointment; Orders Start: 04-16-2024 End: 04-17-2024 ambulatory Rojelio Guajardo RN Radiation Oncology Comment on above: Patient Education Start: 04-16-2024 End: 04-16-2024 Office outpatient new 45 minutes G Juno Bradshaw MD Work Phone: Radiation Oncology Comment on above: Atrial fibrillation, unspecified type (HCC) (Primary Dx); Malignant neoplasm of lung, unspecified laterality, unspecified part of lung (HCC) Start: 04-15-2024 End: 04-21-2024 Telephone encounter G Juno Bradshaw MD Work Phone: Cancer [facility] Start: 04-09-2024 End: 04-09-2024 ambulatory [facility] Start: 04-09-2024 End: 04-09-[address] [facility] Start: 04-09-2024 End: 04-09-2024 ambulatory [facility] Start: 04-07-2024 End: 04-07-2024 Non-patient / Non-visit Josy Delacruz MD Work Phone: [facility] Work Phone: Start: 03-20-2024 ambulatory [facility] Start: 03-10-2024 End: 03-10-2024 ambulatory [facility] Start: 03-07-2024 End: 03-07-2024 ambulatory [facility] Start: 03-03-2024 End: 03-03-2024 ambulatory AARON [facility] Start: 02-08-2024 End: 02-08-2024 ambulatory [facility] Start: 11-27-2023 End: 11-27-2023 Bambojose Borden DO Work Phone: [facility] Start: 11-27-2023 End: 11-27-2023 Bambojose Borden DO Work Phone: [facility] Start: 11-27-2023 End: 11-27-2023 ambulatory KELY D ZAHLER Not Available Start: 10-19-2023 End: 10-19-2023 ambulatory Yousuf JUDGE Facility:[facility] Start: 10-19-2023 End: 10-19-2023 Patient encounter procedure Yousuf JUDGE [facility] Start: 09-25-2023 End: 09-25-2023 ambulatory [facility] Start: 08-24-2023 End: 08-24-2023 ambulatory KELY D ZAHLER Not Available Start: 06-29-2023 End: 06-29-2023 ambulatory KELY D ZAHLER Not Available Start: 05-11-2023 End: 05-11-2023 ambulatory KELY D ZAHLER Not Available Start: 02-23-2023 End: 02-23-2023 ambulatory KELY D ZAHLER Not Available Start: 10-17-2022 End: 10-17-2022 Patient encounter procedure Yousuf Dharmesh JUDGE [facility] Start: 10-13-2022 End: 10-13-2022 Patient encounter procedure Yousuf Dharmesh JUDGE [facility] Start: 04-20-2022 End: 04-21-2022 ambulatory LAURAAMOS TURPINS Facility:[facility] Start: 10-25-2021 End: 10-26-[address] RAMYA FLANAGAN Facility:[facility] Start: 05-04-2021 End: 05-05-2021 ambulatory LAURA العلي Facility:[facility] Start: 08-03-2020 End: 08-04-2020 ambulatory [...] Yousuf CARRILLO Start: 04-20-2022 PSA screening LAURA RED Comment on above: Performed By: #### P SAD #### [facility] [address] [place] [address] Dr. Nic Marie Start: 08-03-2020 Placement of stent i n cardiac conduit Yousuf JUDGE carotid endarderectomy Frandy JUDGE History of hernia repair Tonia JUDGE Operative procedure on coronary artery Yousuf ALFIE Plan of Treatment Date Care Activity Detail Author Start: 06-17-2024 End: 06-17-2024 Patient encounter procedure 06/17/2024 2:15 PM EDT Office Visit [facility] [address] [place] [address] Kely Borden DO [address] [place] [address] [facility] Start: 05-14-2024 Urine culture [facility] Start: 03-12-2025 Bacteria identified in Urine by Culture Urine Culture [facility] Start: 04-30-2024 End: 04-30-2024 Patient encounter procedure Radiation Oncology Comment on above: NEW START, LUNG pt p refers after 9:00am PET Start: 04-26-2024 End: 05-25-2025 PET+CT Guidance for 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-- W 18F-FDG IV NM PET/CT SKULL-THIGH SUBSEQUENT Radiology Routine Malignant neoplasm of unspecified part of unspecified bronchus or lung (HCC) Expected: 04/26/2024, Expires: 05/25/2025 [facility] Work Phone: Comment on above: [...] of lung (HCC) Expected: 04/22/2024, Expires: 07/22/2024 [facility] Comment on above: Expected: 04/22/2024 , Expires: 07/22/2024 Start: 04-22-2024 End: 07-22-2024 BODY FLUID CELL COUNT BODY FLUID CELL COUNT Lab Routine Malignant neoplasm of lung, unspecified laterality, unspecified part of lung (HCC) Expected: 04/22/2024, Expires: 07/22/2024 [facility] Work Phone: Comment on above: Expected: 04/22/2024 , Expires: 07/22/2024 Start: 04-22-2024 End: 07-22-2024 CYTOLOGY NON-HIGH ENERGY FORMING EQUIPMENT OPERATOR CYTOLOGY NON-HIGH ENERGY FORMING EQUIPMENT OPERATOR Lab Routine Malignant neoplasm of lung, unspecified laterality, unspecified part of lung (HCC) Expected: 04/22/2024, Expires: 07/22/2024 [facility] Comment on above: Expected: 04/22/2024 , Expires: 07/22/2024 Start: 04-22-2024 End: 05-20-2025 Glucose [Mass/volume] in Body fluid GLUCOSE, BODY FLUID Lab Routine Malignant neoplasm of lung, unspecified laterality, unspecified part of lung (HCC) Expected: 04/22/2024, Expires: 07/22/2024 [facility] Comment on above: Expected: 04/22/2024 , Expires: 07/22/2024 Start: 04-22-2024 End: 07-22-2024 Lactate dehydrogenase [Enzymatic activity/volume] in Body fluid LACTATE DEHYDROGENASE, BODY FLUID Lab Routine Malignant neoplasm of lung, unspecified laterality, unspecified part of lung (HCC) Expected: 04/22/2024, Expires: 07/22/2024 [facility] Comment on above: Expected: 04/22/2024 , Expires: 07/22/2024 Start: 04-22-2024 End: 07-22-2024 Microorganism identified in Unspecified specimen by Culture AFB CULTURE AND STAIN Microbiology Routine Malignant neoplasm of lung, unspecified laterality, unspecified part of lung (HCC) Expected: 04/22/2024, Expires: 07/22/2024 [facility] Comment on above: Expected: 04/22/2024 , Expires: 07/22/2024 Start: 04-22-2024 End: 07-22-2024 pH of Body fluid PH BODY FLUID Lab Routine Malignant neoplasm of lung, unspecified laterality, unspecified part of lung (HCC) Expected: 04/22/2024, Expires: 07/22/2024 [facility] Comment on above: Expected: 04/22/2024 , Expires: 07/22/2024 Start: 03-05-2024 Advance Directive Discussion Advance Directive Discussion [facility] Start: 11-27-2023 End: 11-27-2023 Patient encounter procedure 11/27/2023 10:30 AM EDT Office Visit [facility] [address] [place] [address] Kely Borden DO [address] [place] [address] Arrived [facility] Comment on above: Arrived Start: 11-04-2023 Covid-19 Vaccine ( season) Covid-19 Vaccine ( season) [facility] Start: 11-04-2023 Influenza vaccination Influenza Vacc ine (#1) [facility] Start: 12-20-2017 Pneumococcal Vaccine : 50+ (2 of 2 - PPSV23) Pneumococcal Vaccine: 50+ (2 of 2 - PPSV23) [facility] Start: 12-20-2017 Pneumococcal Vaccine : 65+ Years (2 of 2 - PPSV23 or PCV20) Pneumococcal Vaccine: 65+ Years (2 of 2 - PPSV23 or PCV20) [facility] Start: 2017 RSV Vaccine (1 - 1-d ose 75+ series) RSV Vaccine (1 - 1-dose 75+ series) [facility] Start: 02-16-1992 Shingrix Vaccine (1 of 2) Shingrix Vaccine (1 of 2) [facility] Start: 1987 Diabetes Screening Diabetes Screenin g [facility] Start: 1961 Urine microalbumin profile DTaP,Tdap,Td Vaccine (1 - Tdap) [facility] Start: 02-16-1960 Anxiety Screening Anxiety Screening [facility] Start: 02-16-1960 Depression Screening Depression Scre ening [facility] ANALYZE CARDIO/DEFIBRILLATOR ANALYZE CARDIO/DEFIBRILLATOR Cardiology Routine Atrial fibrillation, unspecified type (HCC) Malignant neoplasm of lung, unspecified laterality, unspecified part of lung (HCC) Ordered: 04/17/2024 [facility] Work Phone: Comment on above: Ordered: 04/17/2024 CT Guidance for radiation treatment of Unspecified body region CT SIM PLANNING RADIATION ONCOLOGY Radiology Routine Malignant neoplasm of lung, unspecified laterality, unspecified part of lung (HCC) Ordered: 04/23/2024 [facility] Work Phone: Comment on above: Ordered: 04/23/2024 Guidance for thoracentesis of Chest IMAGING GUIDED THORACENTESIS Radiology Routine Malignant neoplasm of lung, unspecified laterality, unspecified part of lung (HCC) Ordered: 04/17/2024 [facility] Comment on above: Ordered: 04/17/2024 PET+CT Guidance for 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-- W 18F-FDG IV NM PET/CT SKULL-THIGH SUBSEQUENT Radiology Routine Malignant neoplasm of unspecified part of unspecified bronchus or lung (HCC) 04/30/2024 9:22 AM EST [facility] Work Phone: Immunizations Immunization Date Immunization Notes Care Provider Natacha wang 11-23-2021 SARS-CoV-2 (COVID-19 ) [id number] Yousuf JUDGE [facility] 12-30-2020 SARS-CoV-2 (COVID-19 ) mRNA BNT-162b2 vax Yousuf JUDGE [facility] Comment on above: Result Comment: 2023: [id number] 05-13-2020 SARS-CoV-2 (COVID-19 ) mRNA-1273 vaccine Yousuf JUDGE [facility] Comment on above: Result Comment: 2023: [id number] 04-15-2020 SARS-CoV-2 (COVID-19 ) mRNA-1273 vaccine Yousuf JUDGE [facility] 03-05-2020 SARS-CoV-2 (COVID-19 ) mRNA-1273 vaccine Yousuf JUDGE [facility] Comment on above: Result Comment: pt h as had 3 shots to date but does not know the dates 12-20-2016 pneumococcal conjuga te vaccine, 13 valent Yousuf JUDGE [facility] NEGATED: Highlighted row has not occurred!04-23-2020 influenza virus vaccine, unspecified formulation Yousuf JUDGE [facility] Payers Date Payer Category Payer Self-pay 2021 Medicare AETNA MEDICARE A DVANTAGE AETNA MEDICARE REPLACEMENT [id number] 2021-Present [address] [place] [address] [id number] 2019 Medicare (Managed Care) SUHAS CHOI [id number] 1959 Medicare [id number] 1940 Unknown [id number]. 647 1942 Unknown [id number] [id number]. 593 1942 Unknown [id number] [id number]. 593 1942 Unknown [id number] [id number]. 593 1942 Unknown [id number] [id number]. 593 1942 Unknown [id number] [id number]. 727 1942 Unknown [id number] [id number]. 727 1942 Unknown [id number] 2.16.840.1.540395.3.579.2. 1259 1942 Unknown [id number] 2.16.840.1.342152.3.579.2. 1259 1942 Unknown [id number] 2.16.840.1.908954.3.579.2. 1259 1942 Unknown [id number] [id number]. 1259 1942 Unknown [id number] [id number]. 1259 Private Health Insurance [id number] Private Health Insurance [facility] [id number] Unknown [id number] [id number]. 531 Unknown [id number]. 531 Social History Date Type Detail Facility Start: 05-28-2014 End: 04-25-2019 Tobacco smoking status Ex-smoker (finding) [facility] Start: 09-27-2022 End: 04-16-2024 Sex Assigned At Male [facility] Tobacco smoking status Never [facility] Start: 09-27-2022 Tobacco smoking stat [facility] Never smoked tobacco [facility] Start: 09-27-2022 End: 04-16-2024 History of Social function [facility] Start: 1940 Sex assigned at Not on file N [facility] Start: 03-05-1969 End: 03-05-1999 History of tobacco use Current smoker [facility] Start: 03-05-1969 End: 03-05-1999 History of tobacco use Cigarette Smoker [facility] Start: 05-28-2014 Tobacco use and exposure Smokeless tobacco non-user [facility] Start: 06-05-2018 Alcoholic beverage intake Current non-drinker of alcohol (finding) [facility] Start: 04-25-2024 End: 05-16-2024 Sex Male (finding) [facility] Start: 1940 Sex Assigned At Male [facility] Functional Status Date Assessment Result Facility 10-19-2023 Functional Status N/A [facility] 10-13-2022 Functional Status N/A [facility] 09-28-2014 Are you deaf, or do you have serious difficulty hearing No 09/28/2014 11:08 AM Rojelio Garcia RN No [facility] 09-28-2014 Are you blind, or do you have serious difficulty seeing, even when wearing glasses No 09/28/2014 11:08 AM Rojelio Garcia RN No [facility] 09-28-2014 Do you have serious difficulty walking or climbing stairs No 09/28/2014 11:08 AM Rojelio Garcia RN No [facility] 09-28-2014 Do you have difficul ty dressing or bathing No 09/28/2014 11:08 AM Rojelio Garcia RN No [facility] 09-28-2014 Because of a physica l, mental, or emotional condition, do you have difficulty doing errands alone such as visiting a physician's office or shopping No 09/28/2014 11:08 AM Rojelio Garcia RN No [facility] Mental Status Date Assessment Result Facility 09-28-2014 Because of a physica l, mental, or emotional condition, do you have serious difficulty concentrating, remembering, or making decisions No 09/28/2014 11:08 AM Rojelio Garcia RN No [facility] Clinical Notes 10-13-2022 to 05-21-2024 Telephone Encounter - Edyta Gilliland RN - 05/08/2024 1:14 PM ESTTelephone Encounter - Edyta Gilliland RN - 05/08/2024 1:14 PM ESTTelephone Encounter - Edyta Gilliland RN - 05/08/2024 1:14 PM EST Note Date & Type Note Facility 05-21-[address] Delacruz the patient' s primary care physician send my office in [place] a message that patient has positive blood culture. He was in the hospital earlier this month with sepsis and pneumonia and also he was treated for congestive heart failure and apparently his blood culture came back to be positive. Dr. Delacruz thinks that the patient needs SALVATORE. Will go ahead and schedule the patient for SALVATORE as soon as possible particularly that the patient has a pacemaker but also the patient needs to be evaluated by ID as soon as possible for further evaluation and treatment. Dr. Delacruz was called with my recommendation [facility] 05-08-2024 Telephone encounter Note Call placed to Dr Rodriguez's office. They confirmed he has already seen Dr Rodriguez. They are working on a prior auth for him to start chemo and also an MRI brain he is having done [place] [facility]. Edyta Gilliland RN [facility] 05-08-2024 Telephone encounter Note Images from the original note were not included. Message Received: Today Yanelis Bradshaw MD P Radt Sand Rad Nurse Pool Can we verify pt seeing medonc? Previous Messages ----- Message ----- From: Radiology, Oru In Sent: 05/01/2024 11:47 AM EST To: Yanelis Bradshaw MD [facility] 05-08-2024 Miscellaneous Notes Call placed to Dr Rodriguez's office. They confirmed he has already seen Dr Rodriguez. They are working on a prior auth for him to start chemo and also an MRI brain he is having done [place] [facility]. Edyta Gilliland RN Images from the original note were not included. Message Received: Today Yanelis Bradshaw MD P Radt Sand Rad Nurse Pool Can we verify pt seeing medonc? Previous Messages ----- Message ----- From: Radiology, Oru In Sent: 05/01/2024 11:47 AM EST To: Yanelis Bradshaw MD documented in this encounter [facility] 05-05-2024 Note [place] Cardiology - [facility] Subjective Khadar Dawn is a 84 y.o. [...] fibrillation (CMS/HCC) CHF (congestive heart failure) (CMS/HCC) COPD (chronic obstructive pulmonary disease) (CMS/HCC) home oxygen 4 L Coronary artery disease Diabetes mellitus ([facility]) Hyperkalemia Hyperlipidemia Hypertension Past Surgical [...] mg by mout (more content not included)... [facility] 04-30-2024 History of Present illness Narrative Radiology [...] 0756 PATIENT DISCHARGED TO: Ambulatory patient, left [place] department area. Is this a therapy: No A Diagnostic radioactive procedure has taken place, with no further precautions necessary other than routine body substance precautions. More information regarding radiation safety can be found using this link: [email or web address] [email or web address] ear%20Medicine%[email or web address] SIGNATURE: RT Adenike(R) PATIENT NAME: Khadar Dawn DATE: April 30, 2024 TIME: 8:24 AM PAGER/CONTACT #: documented in this encounter [facility] 04-30-2024 Note HNO ID: [id number] Author: CHERELLE CORDERO RN Service: ? Author [...] SIGNATURE: Cherelle Cordero RN PATIENT NAME: Khadar Danw DATE: April 30, 2024 TIME: 7:59 AM [facility] 04-30-2024 Note HNO ID: [id number] Author: DG COOK RT(Dharmesh) Service: ? Author Type: Technologist Type: Progress [...] 0756 PATIENT DISCHARGED TO: Ambulatory patient, left [place] department area. Is this a therapy: No A Diagnostic radioactive procedure has taken place, with no further precautions necessary other than routine body substance precautions. More information regarding radiation safety can be found using this link: [email or web address] [email or web address]-% 20Diagnostic%20Nuclear%20Medicine %20Procedures.pdf SIGNATURE: Dg Cook, RT(R) PATIENT NAME: Khadar Dawn DATE: April 30, 2024 TIME: 8:24 AM PAGER/CONTACT #: [facility] 04-25-2024 Telephone encounter Note Khadar is scheduled for a PET scan on Apr 30 with an arrival time of 8am and a scan time of 915. Confirmed with . [facility] 04-25-2024 Miscellaneous Notes Khadar is scheduled [...] patient on Sunday when he is in [place]. documented in this encounter [facility] 04-25-2024 Telephone encounter Note I apologize, per Radiology I can't use this one. I have to give him the next available which is 05/06 or 05/09. [facility] 04-25-2024 Telephone encounter Note First PET opening is Sunday. Please advise if this is ok? [facility] 04-25-2024 Telephone encounter Note In reviewing simulation images right concern of growing nodules outside of the left upper lobe lesion concerning for metastasis. Recommend holding radiation planning. Recommend reimaging with PET scan. Discussed with Dr. Rodriguez and with patient. Dr. Rodriguez can see patient on Sunday when he is in [place]. [facility] 04-23-[address] Rodriguez's office [...] of ordering and scheduling. Edyta Gilliland, RN [facility] 04-23-[address] Rodriguez's [...] Edyta Gilliland RN documented in this encounter [facility] 04-23-2024 Telephone encounter Note Call placed to [facility] [place] ([phone]). Spoke to Kristi to arrange weekly pacemaker checks. Kristi called rep from [employer] and stated he has a single chamber [...] pt know as well. Edyta Gilliland RN [facility] 04-23-2024 Miscellaneous Notes Call placed to [facility] [place] ([phone]). Spoke to Kristi to arrange weekly pacemaker checks. Kristi called rep from [employer] and stated he has a single chamber [...] Edyta Gilliland RN documented in this encounter [facility] 04-23-2024 Note HNO ID: [id number] Author: Yanelis BRADSHAW MD Service: ? Author Type: Physician Type: Progress Notes Filed: 04/23/2024 09:36 Note Text: se [facility] 04-23-2024 History of Present illness Narrative sim documented in this encounter [facility] 04-23-2024 Telephone encounter Note Per scanned US report, thoracentesis was not done. [facility] 04-23-2024 Miscellaneous Notes Per scanned US report, thoracentesis was not done. Received call from Hui at [facility] radiology asking for images from last Chest XR be pushed over. Patient is there for thoracentesis and the radiologist is not seeing any fluid. I let her know his last XR chest was done at [facility], and the one before that was at [place]. She will call there for images. She said they will probably not be able to do the thoracentesis since there is no fluid that they can see. documented in this encounter [facility] 04-23-2024 History of Present illness Narrative KHADAR DAWN [id number] 04/23/2024 [facility] Radiation Oncology Department SIMULATION NOTE DATE OF SIMULATION: 04/23/2024 THERAPIST: Paulette Hansen. John MACHINE: [employer] DIAGNOSIS: Malignant neoplasm of upper lobe, left [...] TS :31 PM documented in this encounter [facility] [facility]24 Note HNO ID: [id number] Author: Yanelis BRADSHAW MD Service: ? Author Type: Physician Type: Progress Notes Filed: 04/24/2024 14:31 Note Text: KHADAR DAWN [id number] 04/23/2024 [facility] Radiation Oncology Department SIMULATION NOTE DATE OF SIMULATION: 04/23/2024 THERAPIST: Paulette Dhillon Provencal MACHINE: MileWise DIAGNOSIS: Malignant neoplasm of upper lobe, left [...] Juno Bradshaw M.D. / TS :31 PM [facility] 04-22-2024 Radiology Diagnostic study note [facility] [address] Ultrasound Report Signed Patient: Khadar Dawn MR#: David [id number] : 1940 Acct:[id number] Age/Sex: 84 / M ADM Date: 5 Loc: Room: Type: [facility] Attending Dr: Comfort Bradshaw MD Ordering Provider: Yanelis Bradshaw MD Date of Service: 04/22/24 US/US guide or thoracentesis: THORA Copies to: Yanelis Bradshaw MD~ ULTRASOUND-GUIDED THORACENTESIS INDICATION: REPORTED EFFUSION COMPARISON: NONE US/US guide or thoracentesis FINDINGS/IMPRESSION: ULTRASOUND LEFT CHEST WALL DEMONSTRATE NO FLUID COLLECTION. PROCEDURE NOT PERFORMED. Impression dictated by: Hal Mojica M.D.04/22/2024 2:57 PM Dictation Location: [place] [address] Tech: Javier Vidal Transcribed By: QING 04/22/241456 Dictated By: Hal Mojica MD 04/22/241455 Signed By: 04/22/241456 [facility] Work Phone: 04-22-2024 Telephone encounter Note Received call from Hui at [facility] asking for images from last Chest XR be pushed over. Patient is there for thoracentesis and the radiologist is not seeing any fluid. I let her know his last XR chest was done at [facility], and the one before that was at [place]. She will call there for images. She said they will probably not be able to do the thoracentesis since there is no fluid that they can see. [facility] 04-21-2024 Telephone encounter Note Consult note faxed to Dr. Rodriguez. [facility] 04-21-2024 Miscellaneous Notes Consult note faxed to Dr. Rodriguez. Erich from Dr. Rodriguez's office called asking for past progress notes for the patient. He stated that the patient was referred and they have not received any information. Please fax records to [phone]. documented in this encounter [facility] 04-21-2024 Telephone encounter Note Patient does not see Dr. Lane. This fax number is for Dr. Rodriguez. Patient's PCP is Dr. Delacruz. Note will be faxed to Dr. Rodriguez and Dr. Delacruz once it is complete. [facility] 04-21-2024 Miscellaneous Notes Patient does not see Dr. Lane. This fax number is for Dr. Rodriguez. Patient's PCP is Dr. Delacruz. Note will be faxed to Dr. Rodriguez and Dr. Delacruz once it is complete. Dr. Lane's office called requesting progress notes from the past 12 months. Please fax to [phone]. They are requesting this today as he has an appointment. Thank you documented in this encounter [facility] 04-21-2024 Telephone encounter Note Records faxed to Dr. Ponce's [place] office. [facility] 04-21-2024 Miscellaneous Notes Records faxed to Dr. Ponce's [place] office. Referral was sent to [place] and [place] offices. Confirmed patient to be scheduled in [place] with Dr. Ponce on 04/23 at 3pm. I called [place] office and explained sent by mistake to please disregard. JACLYN Claudio could you please fax demographics and records to DR. Ponce office at [phone]. He is having a thoracentesis on 04/22. [...] Thanks! Vicki Dockery RT(R)(T) Patient scheduled at [facility] on 04/22 at 9am. Arrive at 8am and stop Xarelto 2 days prior. LM for patient of this information and I will call back tomorrow to confirm he got it. Dr Ponce office returned my call. Asked if I would fax everything to their referral fax line. They will review and contact the patient for an appointment. All info was faxed to [phone] Will follow up to see when appt is scheduled Yolanda Schwartz PSS Everything is faxed to [employer] for Shazia Perez and I will check with [employer] daily to see when scheduled I called Dr Ponce office and got a voicemail stating they are away from their desk. I left a message asking them to return my call as I have a referral I would like to get scheduled. Will update when I hear back from them Yolanda B PSS Order is signed. Please arrange thoracentesis appt lizette. Thanks Rojelio Guajardo RN Waiting on orders to be signed to fax to IR [facility] PSS/RT: Please schedule [facility] for thoracentis return for sim after treating lung no contrast 15 treatments, no concurrent chemo Need presim consent Nurse ed today Consult with Dr. Ponce to establish care with local rfid systems architect. pt does not want to travel to current rfid systems architect in [place]. Thanks Rojelio Guajardo RN documented in this encounter [facility] 04-21-2024 Telephone encounter Note Referral was sent to [place] and [place] offices. Confirmed patient to be scheduled in [place] with Dr. Ponce on 04/23 at 3pm. I called [place] office and explained sent by mistake to please disregard. [facility] 04-21-2024 Telephone encounter Note JACLYN Shanon could you please fax demographics and records to DR. Ponce office at [phone]. He is having a thoracentesis on 04/22. She would like records faxed and images pushed of those as well. Thanks so much [facility] 04-21-2024 Telephone encounter Note Spoke to patient, confirmed pre sim and arrival time 04/23 at 745am. [facility] 04-21-2024 Telephone encounter Note Erich from Dr. Rodriguez's office called asking for past progress notes for the patient. He stated that the patient was referred and they have not received any information. Please fax records to [phone]. [facility] 04-21-2024 Telephone encounter Note Sim scheduled on 04/23/24 at 830am PSS - please schedule pre sim consent with CHRISTIE at 8am & notify pt of 745 arrival time, no special instructions. Thanks! Vicki Dockery RT(R)(T) [facility] Work Phone: 04-18-2024 Telephone encounter Note Patient scheduled at [facility] on 04/22 at 9am. Arrive at 8am and stop Xarelto 2 days prior. LM for patient of this information and I will call back tomorrow to confirm he got it. [facility] 04-18-[address] Ponce office returned my call. Asked if I would fax everything to their referral fax line. They will review and contact the patient for an appointment. All info was faxed to [phone] Will follow up to see when appt is scheduled Yolanda Schwartz PSS [facility] 04-18-2024 Telephone encounter Note Everything is faxed to [employer] for Shazia Perez and I will check with [employer] daily to see when scheduled I called Dr Ponce office and got a voicemail stating they are away from their desk. I left a message asking them to return my call as I have a referral I would like to get scheduled. Will update when I hear back from them Yolanda Schwartz PSS [facility] 04-18-2024 Telephone encounter Note Order is signed. Please arrange thoracentesis appt lizette. Thanks Rojelio Guajardo RN [facility] 04-17-2024 Telephone encounter Note Waiting on orders to be signed to fax to [facility] 04-16-2024 Note HNO ID: [id number] Author: ROJELIO GUAJARDO RN Service: ? Author Type: Registered Nurse Type: Progress Notes Filed: 04/16/2024 15:30 Note Text: Radiation Therapy - Patient Education Note PATIENT NAME: Khadar Dawn PATIENT April 16, 2024 [facility] FACILITY/LOCATION: [facility] READINESS TO LEARN [...] need for social work, van service, and research mechanic. Was PED reviewed? No Patient has an Onbody or Implanted device: Yes, person notified was: Dr. Bradshaw Signed by: Rojelio Guajardo RN [facility] 04-16-2024 History of Present illness Narrative Radiation Therapy - Patient Education Note PATIENT NAME: Khadar Dawn PATIENT April 16, 2024 [facility] FACILITY/LOCATION: [facility] READINESS TO LEARN [...] need for social work, van service, and research mechanic. Was PED reviewed? No Patient has an Onbody or Implanted device: Yes, person notified was: Dr. Bradshaw Signed by: Rojelio Guajardo RN documented in this encounter [facility] 04-16-2024 Telephone encounter Note PSS/RT: Please schedule [facility] for thoracentis return for sim after treating lung no contrast 15 treatments, no concurrent chemo Need presim consent Nurse ed today Consult with Dr. Ponce to establish care with local rfid systems architect. pt does not want to travel to current rfid systems architect in [place]. Thanks Rojelio Guajardo RN [facility] 04-16-2024 Note HNO ID: [id number] Author: Yanelis BRADSHAW MD Service: ? Author [...] (60.0 ttl pk-yrs) (more content not included)... [facility] 04-16-2024 History of Present illness Narrative [...] uptake to an AP window lymph node. [facility] with EBUS negative level 7 lymph [...] Signed by: Yanelis Bradshaw MD cc: Josy Hernandez Nubia [address] [place] [address] Meeta Michael [address] [facility] [address] Pacemaker/Defibrillator? Yes 03/03 placed Previous Cancer(s)? Yes Prostate Previous Radiation? Yes- Here Lupus/Scleroderma?No On body monitoring device? No Edyta Gilliland RN documented in this encounter [facility] 04-16-2024 Note HNO ID: [id number] Author: EDYTA GILLILAND RN Service: ? Author Type: Registered Nurse Type: Progress Notes Filed: 04/21/2024 15:24 Note Text: Pacemaker/Defibrillator? Yes 03/03 placed Previous Cancer(s)? Yes Prostate Previous Radiation? Yes- Here Lupus/Scleroderma?No On body monitoring device? No Edyta Gilliland RN [facility] 04-16-2024 Note Education (RADTSA) KHADAR DAWN ([id number]) 1940 M Date Time Provider Department 04/16/24 ROJELIO GUAJARDO Reason for Visit: Patient Education [91] During your visit today, we recorded the following information about you: Allergies As of Date: 04/16/2024 (No Known Allergies) Date Reviewed: 04/16/2024 Reviewed by: Edyta Gilliland RN - Fully Assessed Prescriptions as of [...] Encounter Status:Closed by ROJELIO GUAJARDO on 04/16/24 [facility] 04-15-[address] Lnae's office called requesting progress notes from the past 12 months. Please fax to [phone]. They are requesting this today as he has an appointment. Thank you [facility] 04-09-2024 Note Patient: Khadar cox Procedure Summary Date: 04/09/24 Room / Location: [facility] Main Operating Room Anesthesia Start: 1110 Anesthesia Stop: 1229 Procedure: BRONCHOSCOPY Diagnosis: Lung mass Centrilobular emphysema (CMS/HCC) Chronic hypoxic respiratory failure (CMS/HCC) Scheduled Providers: Cara Perez MD; Ra Rizo MD Responsible Provider: Ra Rizo MD Anesthesia Type: general ASA Status: [...] per anesthesia protocol. No notable events documented. [facility] 04-09-2024 Note Airway Date/Time: 04/09/2024 11:21 AM Urgency: elective Airway not difficult General Information and Staff Patient location during procedure: OR Anesthesiologist: Ra Rizo MD Resident/PHARMACEUTICAL ANALYST/CAA: Anmol Mccray MD Performed: resident/PHARMACEUTICAL ANALYST/MARIA D Learner assisted: MS Indications and Patient Condition [...] 22 Number of attempts at approach: 1 [facility] 04-09-[address] Rizo at pt beds gabriella to assess before heading to procedure room. [facility] 04-09-2024 Note H&P reviewed. The pa tient was examined and there are no changes to the H&P. Re-explained the procedure to the patient along with the associated risk of pneumothorax, bleeding, hypoxia, and respiratory failure. Patient is agreeable and will proceed with the scheduled Robotic bronchoscopy and TBBx, FNA, EBUS Cara Perez MD Interventional Pulmonary Medicine Pulmonary and Critical Care Medicine [facility] Physicians [facility] 04-09-2024 Note PROCEDURE: CT CHEST WITHOUT CONTRAST [...] Electronically signed: David Hoffman MD. Not Vldtd [facility] 04-08-2024 Note Patient: Khadar cox Procedure Information Date/Time: 04/09/24 1030 Scheduled providers: Cara Perez MD; Ra Rizo MD Procedure: BRONCHOSCOPY Location: [facility] Main Operating Room Relevant Problems Cardio S/p single chamber pacer placed 03/03/2024 (+) Atrial fibrillation (CMS/HCC) (+) Coronary atherosclerosis (+) Hypertension (+) Nonrheumatic aortic valve stenosis (+) Pulmonary hypertension (CMS/HCC) (+) Sinus pause /Renal (+) Renal cyst Xarelto last taken ___ ECHO 06/10/2020: Global left [...] with attending and resident. Additional Equipment Requests [facility] 03-20-2024 Note Attestation signed by Cara Perez MD at 03/21/2024 11:55 AM I have seen and examined the patient. I reviewed the resident/fellow note and I agree with the findings and plan. Cara Perez MD Interventional Pulmonary Medicine Pulmonary and Critical Care Medicine [facility] Pulmonary Clinic Visit Note Patient: Khadar Dawn Age: 84 y.o. : 1940 Account No.: [id number] Referring physician: Dr. Delacruz Chief complaint: Lung [...] mouth in the morning. 09/29/22 Yes Laura العلي NP ferrous sulfate 325 (65 Fe) [...] rales CARDIOVASCULAR: Re (more content not included)... [facility] 03-10-2024 Note [place] Cardiology - [facility] Subjective Khadar Dawn is a [...] extremities. PSYCH: gloria (more content not included)... [facility] 03-03-2024 Note SINGLE CHAMBER PACEM CRUZITO IMPLANT PROCEDURE NOTE DATE OF PROCEDURE: 03/03/2024 PERFORMING PHYSICIAN: Dr. Aaron Rivas CONSENT: Patient LOCATION: EP Lab PROCEDURE PERFORMED: 1. Implantation of pacemaker ([employer]) 2. Ultrasound guided venous access INDICATIONS: [...] using modified seldinger technique using a 5 Maltese micro-puncture needle on one occasion and 0.35 [...] for the device above the muscle. 6 Maltese Safesheaths were placed over the wire. An active fixation [employer] pacing lead was then delivered through the 6Fsheath to the right ventricle. After confirmation of lead position on orthogonal views (GODINEZ and SERBIAN) to confirm septal position, the screw was [...] any concerns. Aaron Rivas MD Cardiac Electrophysiology [facility] 03-03-2024 Note Patient: Khadar cox Procedure Information Date/Time: 03/03/24 1130 Procedure: Implant PPM - [employer] Location: [facility] BATTERY RECHARGER 1 EP / [facility] HV VASCULAR LAB (Cath) Providers: Aaron Rivas MD Clinical information reviewed: Allergies Meds Physical Exam Airway Mallampati: II TM distance: >3 FB Neck ROM: full Cardiovascular Dental Pulmonary Abdominal Anesthesia Plan ASA 3 CSE Anesthetic plan and risks discussed with patient. Use of blood products discussed with patient who. Additional Equipment Requests [facility] 02-22-2024 Note Today I reviewed pat ient [...] Dr. Rivas next time he is in [place] office 03/18/2024. The patient was advised to come to the emergency room immediately if he has any dizziness. [facility] 02-08-2024 Note [place] Cardiology - [facility] Subjective Khadar Dawn is a 83 y.o. year old male patient being seen for Hospital Follow-up (He was admitted to [facility] last month for CHF. Say he's [...] and other tests (more content not included)... [facility] 11-27-2023 Note Right Eye Reliability was good. Progression has been stable. Foveal threshold was normal. Findings include normal observations. Left Eye Reliability was good. Progression has been stable. Foveal threshold was normal. Findings include central scotoma. [facility] 11-27-2023 Note Right Eye Quality was good. Scan locations included subfoveal. Progression has been stable. Findings include abnormal foveal contour. Left Eye Quality was good. Scan locations included subfoveal. Progression has been stable. Findings include abnormal foveal contour, subretinal scarring. 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 Follow these instructions at home: Take nmyh-ywf-gvtbjxi and prescription medicines only as told by [...] provider. Document Revised: 09/07/2021 Document Reviewed: 09/07/2021 [employer] Patient Education 2022 [employer]. Follow Up Care 12/11/2022 11:11:41 With:ALFIE WISE, Yousuf Barroso, URL Address: [address] [place] [address]- When: Unknown [facility] [place] 10-19-2023 Note Patient Education Urology Benign Prostatic [...] Follow these instructions at home: ? Take ltia-qez-jkrvwmo and prescription medicines only as told by [...] develop side effec (more content not included)... [facility] 09-25-2023 Note Cardiovascular Medic [facility] SUBJECTIVE Chief Complaint Patient presents [...] Atrial fibrillation (CMS/HCC) CHF (congestive heart failure) ([facility]) Coronary artery disease Diabetes mellitus ([facility]) Hyperkalemia Hyperlipidemia Hypertension Family History Problem Relation [...] Final QTC CALCULATION(BAZETT) 08/03/2020 428 ms Final R-[place] 08/03/2020 -82 degrees Final T Wave [place] 06 (more content not included)... [facility] 09-25-2023 Note Patient here for 6 m [...] All other systems reviewed and are negative. [facility] 10-17-2022 Hospital Discharge instructions Patient Education 10/17/2022 [...] With:Yousuf JUDGE Address: [facility] [address] [place] [address]- Business (1) When: Unknown Comments:Office will call to schedule follow up [facility] 10-13-2022 Hospital Discharge instructions Patient Education 10/13/2022 [...] urethra. Follow these instructions at home: Take youb-cku-bgvxvqt and prescription medicines only as told by [...] provider. Document Revised: 09/07/2021 Document Reviewed: 09/07/2021 [employer] Patient Education 2022 [employer]. Follow Up Care 04/25/2021 10:27:16 With:ALFIE WISE, [place] Sanchez Address: [facility] [address] , [place] [address]- When: Unknown Comments:sched Cysto. [facility] Evaluation + Plan note Future Appointments Appointment Date:10/16/2022 10:45:00 AM Scheduled Provider: Location:[facility] Appointment Type:Urology CALL PAT FT Appointment Date:10/17/2022 10:00:00 AM Scheduled Provider: Location:[facility] Appointment Type:Urology FT Diagnostic Tests PendingPSA Total 10/13/22 [facility] Evaluation + Plan note Future Appointments Appointment Date:10/20/2024 10:30:00 AM Scheduled Provider:Yousuf JUDGE MD Location:[facility] Appointment Type:URO Office Visit Diagnostic Tests PendingPSA Total 09/02/24 [facility] Evaluation note Diagnosis Primary open angle glaucoma (POAG) of both eyes, mild stage (CMS/HCC)- Primary 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) Age-related nuclear cataract of both eyes 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 [facility] Atrial fibrillation, unspecified type (HCC)- Primary Malignant neoplasm of lung, unspecified laterality, unspecified part of lung (HCC) [facility] Malignant neoplasm of lung, unspecified laterality, unspecified part of lung (HCC)- Primary [facility] Diagnosis Malignant neoplasm of lung, unspecified laterality, unspecified part of lung (HCC)- Primary [facility] Diagnosis Malignant neoplasm of unspecified part of unspecified bronchus or lung (HCC)- Primary [facility] Work Phone: Evaluation note* Diagnosis Malignant neoplasm of lung, unspecified laterality, unspecified part of lung (HCC)- Primary [facility] Diagnosis Malignant neoplasm of unspecified part of unspecified bronchus or lung (HCC) [facility] Diagnosis Primary open angle glaucoma (POAG) of both eyes, mild stage (CMS/HCC) [facility] N[facility] No data available for this section [facility] progress note No data available for this section [facility] Summary Purpose Family History No Family History Records FoundNo Family History Records Found No data available for this section No Family History Records FoundNo Family History Records FoundNo Family History Records FoundNo Family History Records FoundNo Family History Records Found Advance Directives No Advanced Directives Records Found Advance Directive Response Recorded Date/ Time Advance Directives No August 13 11:33am Advance Directive Response Recorded Date/ Time Advance Directives No August 13 12:33pm Chief Complaint and Reason for Visit Chief Complaint Admit Date C34.April 22, 2024 7:56am Chief Complaint Admit Date [id number] April 22, 2024 7:56am Unknown May 14, 2024 5:2 9pm Additional Source Comments (unrecognized sect ion and content) No Status Records FoundNo Status Records FoundNo Status Records FoundNo Status Records FoundNo Status Records FoundNo Status Records FoundNo Status Records Found INFORMATION SOURCE (unrecogn ized section and content) DATE CREATED AUTHOR 08/09/2020 [facility] DATE CREATED AUTHOR AUTHOR'S ORGANIZ ATION 04/22/2022 [facility] DATE CREATED AUTHOR AUTHOR'S ORGANIZ ATION 10/21/2023 [facility] DATE CREATED AUTHOR AUTHOR'S ORGANIZ ATION 11/29/2023 [facility] EPIC DATE CREATED AUTHOR AUTHOR'S ORGANIZ ATION 05/18/2024 [facility] DATE CREATED AUTHOR AUTHOR'S ORGANIZ ATION 05/21/2024 [facility] DATE CREATED AUTHOR AUTHOR'S ORGANIZ ATION 05/23/2024 [facility] Patient Care team informatio n (unrecognized section and content) Shield Operator Relationship Specialty Start Date End Date Josy Delacruz MD PCP - General Family Medicine 05/26/14 Shield Operator Relationship Specialty Start Date End Date Josy Delacruz MD PCP - General Family Medicine 05/26/14 Shield Operator Relationship Specialty Start Date End Date Josy Delacruz MD PCP - General Family Medicine 05/26/14 Shield Operator Relationship Specialty Start Date End Date Josy Delacruz MD PCP - General Family Medicine 05/26/14 Shield Operator Relationship Specialty Start Date End Date Josy Delacruz MD PCP - General Family Medicine 05/26/14 Shield Operator Relationship Specialty Start Date End Date Josy Delacruz MD PCP - General Family Medicine 05/26/14 Shield Operator Relationship Specialty Start Date End Date Josy Delacruz MD PCP - General Family Medicine 05/26/14 Team Status: Active Member Role Status Devan Delacruz MD Primary Care Provider Active Team Status: Inactive Member Role Status Devan Delacruz MD Primary Care Provider Active Start: April 22, 2024 End: April 22, 2024 Comfort Bradshaw MD Attending Provider Active Start: April 22, 2024 End: April 22, 2024 Shield Operator Relationship Specialty Start Date End Date Josy Delacruz MD PCP - General Family Medicine 05/26/14 Shield Operator Relationship Specialty Start Date End Date Josy Delacruz MD PCP - General Family Medicine 05/26/14 Team Status: Active Member Role Status Dates Josy Delacruz MD Primary Care Provide r, Referring Provider Active Start: April 07, 2024 End: April 07, 2024 Charbel Malcolm DO Attending Provider Active Sta rt: April 07, 2024 End: April 07, 2024 Team Status: Inactive Member Role Status Dates Josy Delacruz MD Attending Provider Active Sta rt: May 14, 2024 End: May 14, 2024 Reason for Visit (unrecogniz ed section and content) Reason Comments Eye Exam Glaucoma Macular Degeneration Cataract Reason Comments Patient Education Reason Comments Lung Cancer Reason Comments Thoracentesis Reason Onset Date Comments Simulation Request Form 04/23/2024 Reason Comments Radius Grinder - Other Reason Comments Future Appointment Radius Grinder - Other Pacemaker Check s During XRT Reason Comments Appointment Orders Reason Comments Radiology NM Specialty Diagnoses / Procedures Referred By Contac t Referred To Contact MOLECULAR & FUNCTIONAL IMAGING Diagnoses Malignant neoplasm of unspecified part of unspecified bronchus or lung (HCC) Procedures NM PET/CT SKULL-THIGH SUBSEQUENT PET IMAGING CT ATTENUATION SKULL [place] [address] [place] [address] Phone: tel: [facility] [address] [place] [address] Phone: tel: Referral ID Status Reason Start Date Expiration Date V isits Requested Visits Authorized [id number] Closed Auto-Generate d Referral 04/26/2024 05/25/2025 1 1 Reason Onset Date Comments Med Refill 05/02/2024 Reason Comments Radius Grinder - Other Future Appointment Source Comments (unrecognize d section and content) In the event this informatio n is protected by the Federal Confidentiality of Alcohol and Drug Abuse Patient Records regulations: The Federal rules restrict any use of the information to criminally investigate or prosecute any alcohol or drug abuse patient.[facility] the event this information is protected by the Federal Confidentiality of Alcohol and Drug Abuse Patient Records regulations: The Federal rules restrict any use of the information to criminally investigate or prosecute any alcohol or drug abuse patient.[facility] the event this information is protected by the Federal Confidentiality of Alcohol and Drug Abuse Patient Records regulations: The Federal rules restrict any use of the information to criminally investigate or prosecute any alcohol or drug abuse patient.[facility] the event this information is protected by the Federal Confidentiality of Alcohol and Drug Abuse Patient Records regulations: The Federal rules restrict any use of the information to criminally investigate or prosecute any alcohol or drug abuse patient.[facility] the event this information is protected by the Federal Confidentiality of Alcohol and Drug Abuse Patient Records regulations: The Federal rules restrict any use of the information to criminally investigate or prosecute any alcohol or drug abuse patient.[facility] the event this information is protected by the Federal Confidentiality of Alcohol and Drug Abuse Patient Records regulations: The Federal rules restrict any use of the information to criminally investigate or prosecute any alcohol or drug abuse patient.[facility] the event this information is protected by the Federal Confidentiality of Alcohol and Drug Abuse Patient Records regulations: The Federal rules restrict any use of the information to criminally investigate or prosecute any alcohol or drug abuse patient.[facility] the event this information is protected by the Federal Confidentiality of Alcohol and Drug Abuse Patient Records regulations: The Federal rules restrict any use of the information to criminally investigate or prosecute any alcohol or drug abuse patient.[facility] the event this information is protected by the Federal Confidentiality of Alcohol and Drug Abuse Patient Records regulations: The Federal rules restrict any use of the information to criminally investigate or prosecute any alcohol or drug abuse patient.[facility] the event this information is protected by the Federal Confidentiality of Alcohol and Drug Abuse Patient Records regulations: The Federal rules restrict any use of the information to criminally investigate or prosecute any alcohol or drug abuse patient.[facility] the event this information is protected by the Federal Confidentiality of Alcohol and Drug Abuse Patient Records regulations: The Federal rules restrict any use of the information to criminally investigate or prosecute any alcohol or drug abuse patient.[facility] the event this information is protected by the Federal Confidentiality of Alcohol and Drug Abuse Patient Records regulations: The Federal rules restrict any use of the information to criminally investigate or prosecute any alcohol or drug abuse patient.[facility] the event this information is protected by the Federal Confidentiality of Alcohol and Drug Abuse Patient Records regulations: The Federal rules restrict any use of the information to criminally investigate or prosecute any alcohol or drug abuse patient.[facility] the event this information is protected by the Federal Confidentiality of Alcohol and Drug Abuse Patient Records regulations: The Federal rules restrict any use of the information to criminally investigate or prosecute any alcohol or drug abuse patient.[facility] Goals (unrecognized section and content) Goals [...] BE BASED ON THE PRIMARY CLINICAL RECORDS. [facility]. provides no warranty or guarantee of the accuracy or completeness of information in this document.
--- NOTE | 2024-05-26 19:04 | P.HP_ITS ---
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 He has been being treated with cefdinir and he does feel somewhat better but infectious disease is concerned that that going to cover it well enough and needed IV antibiotics and admitted for same When I saw patient up in the medical surgical floor, resting comfortably in bed, no specific complaints, breathing feels better to him than it has in the past Opioid HPI Opioid Management Most Recent Pain and Opioid Data: Last Pain Scale 0 05/17/24 08:07 05/17/24 Last Pain Intensity 0 05/16/24 10:54 05/16/24 Last ORT Total Score 0 05/26/24 18:14 05/26/24 Last ORT Risk Category Low Risk 05/26/24 18:14 05/26/24 Review of Systems ROS Status of ROS 10 or more systems reviewed and unremark able except as noted in history and below [facility] Medical History Glaucoma ?H40.9 - Unspecified glaucoma (ICD-10) Hypoxia ?R09.02 - Hypoxemia (ICD-10) Respiratory distress ?R06.03 - Acute respiratory distress (ICD-10) Congestive heart failure ?I50.9 - Heart failure, unspecified (ICD-10) CAD (coronary artery disease) ?I25.10 - Atherosclerotic heart disease of [place] coronary artery without angina pectoris (ICD-10) Pneumonia ?J18.9 - Pneumonia, unspecified organism (ICD-10) Acute on chronic systolic (congestive) heart failure ?I50.23 - Acute on chronic systolic (congestive) heart failure (ICD-10) Hypoxia ?R09.02 - Hypoxemia (ICD-10) COPD (chronic obstructive pulmonary disease) ?J44.9 - Chronic obstructive pulmonary disease, unspecified (ICD-10) Congestive heart failure ?I50.9 - Heart failure, unspecified (ICD-10) Hematuria ?R31.9 - Hematuria, unspecified (ICD-10) Atrial fibrillation ?I48.91 - Unspecified atrial fibrillation (ICD-10) CHF (congestive heart failure) ?I50.9 - Heart failure, unspecified (ICD-10) Diabetes mellitus ?E11.9 - Type 2 diabetes mellitus without complications (ICD-10) Hypertension ?I10 - Essential (primary) hypertension (ICD-10) Prostate cancer ?C61 - Malignant neoplasm of prostate (ICD-10) Surgical History Pacemaker ?Z95.0 - Presence of cardiac pacemaker (ICD-10) H/O hernia repair ?Z98.890 - Other specified postprocedural states (ICD-10) ?Z87.19 - Personal history of other diseases of the digestive system (ICD-10) H/O heart artery stent ?Z95.5 - Presence of coronary angioplasty implant and graft (ICD-10) Family History Father Family history of myocardial infarction Family history of CHF (congestive heart failure) Brother Family history of CHF (congestive heart failure) Family history of hypertension Sister Family history of cancer Social History (Updated 05/26/24 @ 18:26 by Cristiane Gutierrez RN) Within the past year, how often did you have a drink containing alcohol: never Within the past year, how often did you have six or more drinks on one occasion: never Score interpretation: A score less than 4 is consistent with normal alcohol consumption. Smoking status: Former smoker Second hand tobacco smoke exposure: No Non-prescribed substance use: denies use Previous occupational history: retired Known occupational exposures/hazards: No Highest level of school completed/degree received: high school graduate Do you want help with school or training: No Are you now , , , , never or living with a partner: In a typical week, how many times do you talk on the telephone with family, friends, or neighbors: 3 or more times per week How often do you get together with friends or relatives: 3 or more times per week How often do you attend episcopal or moravian services: 4 or more times per year Do you belong to any clubs or organizations such as episcopal groups unions, fraternal or athletic groups, or school groups: no Total score: 3 Score interpretation: A score of greater than or equal to 2 indicates the lowest level of social isolation. Little interest or pleasure in doing things: not at all Feeling down, depressed, or hopeless: not at all Feel stressed/tense/nervous/anxious/difficulty sleeping: not at all Due to disability, difficulty making decisions: No Do you think of yourself as: straight/heterosexual Gender Identity: male Meds Home Medications and Allergies Home Medications ?Medication ?Instructions ?Recorded ?Confirmed ?Type atorvastatin 80 mg tablet 80 mg PO DAILY 09/23/22 05/26/24 History metformin 500 mg tablet 500 mg PO BID 09/23/22 05/26/24 History pantoprazole 40 mg tablet,delayed 40 mg PO DAILY 09/23/22 05/26/24 History release rivaroxaban 20 mg tablet (Xarelto) 20 mg PO DAILY 09/23/22 05/26/24 History dorzolamide 22.3 mg-timolol 6.8 1 drp ophthalmic (eye) BID 01/10/24 05/26/24 History mg/mL eye drops empagliflozin 10 mg tablet 10 mg PO DAILY 01/10/24 05/26/24 History (Jardiance) latanoprost 0.005 % eye drops 1 drp ophthalmic (eye) QPM 01/10/24 05/26/24 History multivitamin (Daily Multi-Vitamin 1 tab PO DAILY 01/10/24 05/26/24 History tablet) omega 3-xlo-khn-fish oil 300 1 cap PO DAILY 01/10/24 05/26/24 History mg-1,000 mg capsule (Fish Oil) glimepiride 2 mg tablet 1 mg PO DAILY 03/31/24 05/26/24 History amlodipine 10 mg tablet 10 mg PO DAILY #30 tabs 04/07/24 05/26/24 Rx lisinopril 20 mg tablet 20 mg PO QD #30 tabs 04/07/24 05/26/24 Rx spironolactone 25 mg tablet 25 mg PO QAM 05/14/24 05/26/24 History cefdinir 300 mg capsule 600 mg (2 x 300 mg) PO DAILY #20 05/17/24 05/26/24 Rx caps digoxin 250 mcg (0.25 mg) tablet 250 mcg PO DAILY #30 tabs 05/17/24 05/26/24 Rx fluconazole 200 mg tablet 200 mg PO DAILY #14 tabs 05/17/24 05/26/24 Rx (Diflucan) metoprolol tartrate 50 mg tablet 50 mg PO BID #60 tabs 05/17/24 05/26/24 Rx prednisone 10 mg tablet 30 mg (3 x 10 mg) PO DAILY #20 tabs 05/17/24 05/26/24 Rx furosemide 40 mg tablet (Lasix) 40 mg PO Q12H 05/26/24 05/26/24 History Allergies Allergy/AdvReac Type Severity Reaction Status Date / Time No Known Drug Allergies Allergy Verified 09/23/22 06:49 Exam Constitutional Vital Signs, click to edit/add: Last Vital Signs Temp 97.6 F 05/26/24 18:14 Pulse 56 L 05/26/24 18:14 Resp 18 05/26/24 18:14 BP 172/94 H 05/26/24 18:14 Pulse Ox 90 L 05/26/24 18:14 O2 Del Method Nasal Cannula 05/26/24 18:14 O2 Flow Rate 2 05/26/24 18:14 Documenting provider has reviewed patient's vital signs: yes Common normals: no apparent distress Chest Common normals: inspection of chest normal Respiratory Common normals: normal respiratory effort and no retractions Cardio Common normals: regular rate, regular rhythm and no murmurs GI Common normals: Normal to inspection, nondistended, normoactive bowel sounds present Extremity Common normals: abnormal to inspection (1+ edema, stable for him) Results Labs Labs: Short CBC 05/26/24 Range/Units 14:24 WBC 13.5 H (4.0-11.0) 10^3/uL Hgb 13.9 L (14.0-18.0) g/dL Hct 43.2 (42.0-54.0) % Plt Count 209 (150-450) 10^3/uL BMP 05/26/24 14:24 Sodium 140 Potassium 4.4 Chloride 102 Carbon Dioxide 34.2 H BUN 34.0 H Creatinine 1.19 Glucose 354 H Calcium 8.9 Urine 05/26/24 Range/Units 15:07 Urine Color Lt. yellow (YELLOW) Urine Clarity Clear (CLEAR) Urine pH 6.0 (5.0-9.0) Ur Specific [place] <=1.005 A (1.005-1.025) Urine Protein Negative (NEG/TRACE) mg/dL Urine Glucose (UA) >=1000 A (NEGATIVE) mg/dL Assessment and Plan Assessment and Plan (1) Bacteremia: (2) CAD (coronary artery disease): Qualifiers: Coronary Disease-Associated Artery/Lesion type: [place] artery [place] vs. 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 -no sensitivities available, ID rheumatically recommending IV antibiotics, will start patient on penicillin and vancomycin, consult to cardiology to continue workup for possible endocarditis Diabetes mellitus-insulin sliding scale, and home medications Chronic hypoxic respiratory failure secondary to lung mass and COPD-aerosol treatments Hypertension-continue with current medications Atrial fibrillation-continue with anticoagulation L Admission status: Patient admitted for recurrent IV antibiotic dosing secondary to Chloe hemolyzing this infection and possible endocarditis, patient mated with significant leukocytosis and lactic acidosis despite being on oral antibiotics, medically necessary treatment will span 2 midnights. Inpatient status
[2024-05-26 19:20] LABS: Erythrocyte Sedimentation Rate 8 mm/hr (<=20)
[2024-05-26 19:22] LABS: C Reactive Protein <0.50 mg/dL (<=0.50)
[2024-05-26 19:28] LABS: Digoxin 1.9 ng/mL (0.9-2.0)
[2024-05-26] MEDS: LISINOPRIL 20 MG TABLET PO (19:45)
[2024-05-26] MEDS: FUROSEMIDE 40 MG TABLET PO (19:48)
[2024-05-26] MEDS: IPRATROPIUM/ALBUTEROL SULFATE 3 ML AMPUL.NEB IH (20:16)
[2024-05-26] MEDS: PENICILLIN G POTASSIUM 2,500,000 UNIT in 0.9 % SODIUM CHLORIDE 50 ML 100 UNIT IV (20:38)
[2024-05-26] MEDS: METFORMIN HCL 500 MG TABLET PO (20:48)
[2024-05-26] MEDS: LATANOPROST 0.005% 2.5 ML BOTTLE 1 DROP OP (20:48)
[2024-05-26] MEDS: METOPROLOL TARTRATE 50 MG TABLET PO (20:49)
[2024-05-26 20:51] LABS: Glucometer 172 mg/dL (74-106)
[2024-05-26] MEDS: INSULIN ASPART 300 UNIT/3 ML PEN SUBQ (21:31)
[2024-05-27] VITALS (9 sets, daily range): BP systolic 122–166; BP diastolic 63–80; PULSE 62–81; TEMP 36.3–36.6; O2SAT 91–97
[2024-05-27] MEDS: PENICILLIN G POTASSIUM 2,500,000 UNIT in 0.9 % SODIUM CHLORIDE 50 ML 100 UNIT IV ×6 (00:13→19:51)
[2024-05-27] MEDS: IPRATROPIUM/ALBUTEROL SULFATE 3 ML AMPUL.NEB IH ×4 (05:07→21:49)
[2024-05-27 05:20] LABS: Basophils Percent Auto 0.2 % (0.2-2.0); Eosinophils Absolute Auto 0.2 10^3/uL (0.0-0.7); Eosinophils Percent Auto 1.8 % (0.9-7.0); Hematocrit 43.9 % (42.0-54.0); Hemoglobin 13.8 g/dL (14.0-18.0); Immature Granulocytes Pct Auto 0.8 % (0.0-0.5); Lymphocytes Absolute Auto 0.5 10^3/uL (1.2-3.8); Lymphocytes Percent Auto 3.8 % (20.5-60.0); Mean Corpuscular HGB Conc 31.4 g/dL (29.9-35.2); Mean Corpuscular Hemoglobin 28.9 pg (25.9-34.0); Mean Corpuscular Volume 91.8 fL (80.0-94.0); Mean Platelet Volume 12.4 fL (9.5-13.5); Monocytes Percent Auto 8.1 % (1.7-12.0); Neutrophils Absolute Auto 10.7 10^3/uL (1.4-6.5); Neutrophils Percent Auto 85.3 % (43.0-75.0); Platelet Count 199 10^3/uL (150-450); Red Blood Count 4.78 10^6/uL (4.70-6.10); Red Cell Distribution Width 16.5 % (11.0-15.0); White Blood Count 12.6 10^3/uL (4.0-11.0)
[2024-05-27 05:38] LABS: Anion Gap 5.6; BUN Creatinine Ratio 28.6; C Reactive Protein <0.50 mg/dL (<=0.50); Calcium 9.4 mg/dL (8.5-10.1); Carbon Dioxide 37.9 mmol/L (21.0-32.0); Chloride 104 mmol/L (98-107); Estimated GFR (African America >60 (>=60 mL/min/1.73m^2); Estimated GFR (Non-African Ame >60 (>=60 mL/min/1.73m^2); Glucose 104 mg/dL (74-106); Potassium 3.5 mmol/L (3.5-5.1); Sodium 144 mmol/L (136-145)
[2024-05-27 05:41] LABS: Digoxin 1.6 ng/mL (0.9-2.0)
[2024-05-27 05:50] LABS: Erythrocyte Sedimentation Rate 7 mm/hr (<=20)
--- NOTE | 2024-05-27 07:41 | P.PN_ITS ---
Progress Note: Subjective Subjective Interval history: No complaints this morning Exam Constitutional Vital Signs, click to edit/add: Last Vital Signs Temp 97.8 F 05/27/24 07:35 Pulse 70 05/27/24 07:35 Resp 18 05/27/24 07:35 BP 166/80 H 05/27/24 07:35 Pulse Ox 91 L 05/27/24 07:35 O2 Del Method Nasal Cannula 05/27/24 07:35 O2 Flow Rate 2 05/27/24 07:35 Documenting provider has reviewed patient's vital signs: yes Common normals: no apparent distress Chest Common normals: inspection of chest normal Respiratory Common normals: normal respiratory effort and clear to auscultation bilaterally Cardio Common normals: regular rate, S1 normal heart sound and S2 normal heart sound GI Common normals: Normal to inspection, nondistended, normoactive bowel sounds present, soft to palpation and non-tender Extremity Common normals: abnormal to inspection (1+ edema, unchanged) Progress Note: Objective Labs Labs: Short CBC 05/26/24 05/27/24 Range/Units 14:24 05:06 WBC 13.5 H 12.6 H (4.0-11.0) 10^3/uL Hgb 13.9 L 13.8 L (14.0-18.0) g/dL Hct 43.2 43.9 (42.0-54.0) % Plt Count 209 199 (150-450) 10^3/uL BMP 05/26/24 05/27/24 14:24 05:06 Sodium 140 144 Potassium 4.4 3.5 Chloride 102 104 Carbon Dioxide 34.2 H 37.9 H BUN 34.0 H 26.0 H Creatinine 1.19 0.91 Glucose 354 H 104 Calcium 8.9 9.4 Urine 05/26/24 Range/Units 15:07 Urine Color Lt. yellow (YELLOW) Urine Clarity Clear (CLEAR) Urine pH 6.0 (5.0-9.0) Ur Specific [place] <=1.005 A (1.005-1.025) Urine Protein Negative (NEG/TRACE) mg/dL Urine Glucose (UA) >=1000 A (NEGATIVE) mg/dL Progress Note: A&P Assessment and Plan (1) Bacteremia: (2) CAD (coronary artery disease): Qualifiers: Coronary Disease-Associated Artery/Lesion type: [place] artery [place] vs. 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 -no sensitivities available, ID recommending IV antibiotics and hospitalization, will start patient on penicillin and vancomycin, consult to cardiology to continue workup for possible endocarditis, continue with antibiotics until repeat blood cultures have returned, possible discharge in 3 days Diabetes mellitus-insulin sliding scale, and home medications-stable Chronic hypoxic respiratory failure secondary to lung mass and COPD-aerosol treatments-slight cough this morning but not unusual for him Hypertension-continue with current medications-improved from admission Atrial fibrillation-continue with anticoagulation-good rate control Admission status: Patient admitted for recurrent IV antibiotic dosing secondary to Chloe hemolyzing this infection and possible endocarditis, patient mated with significant leukocytosis and lactic acidosis despite being on oral antibiotics, medically necessary treatment will span 2 midnights. Inpatient status ?
[2024-05-27] MEDS: PREDNISONE 10 MG TABLET 30 MG PO (08:29)
[2024-05-27] MEDS: LISINOPRIL 20 MG TABLET PO (08:30)
[2024-05-27] MEDS: SPIRONOLACTONE 25 MG TABLET PO (08:30)
[2024-05-27] MEDS: FISH OIL 1,000 MG CAPSULE 1000 MG PO (08:30)
[2024-05-27] MEDS: MULTIVITAMIN TABLET 1 TAB PO (08:30)
[2024-05-27] MEDS: CANAGLIFLOZIN 100 MG TABLET PO (08:30)
[2024-05-27] MEDS: PANTOPRAZOLE SODIUM 40 MG TABLET.DR PO (08:30)
[2024-05-27] MEDS: FUROSEMIDE 40 MG TABLET PO ×2 (08:30→16:14)
[2024-05-27] MEDS: ATORVASTATIN CALCIUM 40 MG TABLET 80 MG PO (08:30)
[2024-05-27] MEDS: METOPROLOL TARTRATE 50 MG TABLET PO ×2 (08:30→21:15)
[2024-05-27] MEDS: AMLODIPINE BESYLATE 5 MG TABLET 10 MG PO (08:31)
[2024-05-27] MEDS: METFORMIN HCL 500 MG TABLET PO ×2 (08:31→21:15)
[2024-05-27] MEDS: DIGOXIN 125 MCG TABLET 250 MCG PO (08:31)
[2024-05-27] MEDS: GLIMEPIRIDE 2 MG TABLET 1 MG PO (08:31)
--- NOTE | 2024-05-27 08:44 | CM.NOTE ---
Important Message From Medicare discussed with pt, pt verbalizes understanding and signs paper. Original given to pt and copy placed in pt's chart. Pt is active with [facility] and plans on returning to their care at discharge.
[2024-05-27] MEDS: FLUCONAZOLE 100 MG TABLET 200 MG PO (09:17)
[2024-05-27] MEDS: DORZOLAMIDE HCL 2%/TIMOLOL MALEATE 0.5% 200 DROP/10 ML BOTTLE OP ×2 (09:19→21:15)
--- NOTE | 2024-05-27 09:31 | SWNOTE1 ---
Pt wears 3 liters of home oxygen from [facility] and has [facility] coming in.
[2024-05-27] MEDS: VANCOMYCIN HCL 750 MG in 0.9 % SODIUM CHLORIDE 250 ML 250 MG IV ×2 (10:57→21:15)
[2024-05-27 10:58] LABS: Glucometer 280 mg/dL (74-106)
[2024-05-27] MEDS: INSULIN ASPART 300 UNIT/3 ML PEN SUBQ ×3 (10:58→21:16)
--- NOTE | 2024-05-27 13:55 | SWNOTE1 ---
Pt will likely need IV anbx at discharge. AB spoke with pt about this possibility. SW did let pt know that there are a few options in regards to IV antibiotics at discharge. SW let pt know he can have HH assist at home with IV anbx, he can come in to [facility] and get them, or we can try to get him skilled at nursing facility for a short time for IV anbx. Pt voiced his really wants him to go to nursing facility so she can recover at home. SW did explain that if he went home with home health, the home health nurse does not come in daily to assist and someone would have to be taught how to do it at home. He voiced his sister may be able to help. SW did state he may need it more than once a day. Pt voiced if it is 2-3 times a day he likely should go to SNF. SW also stated if he was going to be an [facility] pt, someone would have to bring him in to hospital, and again it may be multiple times a day. AB did ask pt if he was getting chemo right now? He stated he is not able to get chemo right now due to this infection, both together would kill him. AB explained to pt that he is a precert and if he does need to go skilled at residential, we would have to wait for insurance to approve. AB recommended we set up SNF and if we do not need it then it can be cancelled. Pt is in agreement. AB provided list from Medicare.gov, pt would like [email or web address]. AB to send referral to [facility]. Referral sent to [facility]. Referral included face sheet, ED note, H&P, provider notes, case management report, nursing notes, diagnostic imaging, med list, and PT/OT notes.
[2024-05-27 16:10] LABS: Glucometer 149 mg/dL (74-106)
[2024-05-27] MEDS: RIVAROXABAN 10 MG TABLET 20 MG PO (16:14)
[2024-05-27] MEDS: LATANOPROST 0.005% 2.5 ML BOTTLE 1 DROP OP (19:53)
[2024-05-27 21:15] LABS: Glucometer 349 mg/dL (74-106)
[2024-05-28] VITALS (12 sets, daily range): BP systolic 133–160; BP diastolic 56–76; PULSE 58–79; TEMP 36.3–36.6; O2SAT 91–97
[2024-05-28] MEDS: PENICILLIN G POTASSIUM 2,500,000 UNIT in 0.9 % SODIUM CHLORIDE 50 ML 100 UNIT IV ×7 (00:09→23:40)
[2024-05-28] MEDS: IPRATROPIUM/ALBUTEROL SULFATE 3 ML AMPUL.NEB IH ×3 (05:16→20:37)
[2024-05-28 05:47] LABS: Basophils Percent Auto 0.1 % (0.2-2.0); Eosinophils Absolute Auto 0.1 10^3/uL (0.0-0.7); Eosinophils Percent Auto 0.5 % (0.9-7.0); Hematocrit 43.7 % (42.0-54.0); Hemoglobin 13.8 g/dL (14.0-18.0); Immature Granulocytes Abs Auto 0.09 10^3/uL (0.00-0.03); Immature Granulocytes Pct Auto 0.6 % (0.0-0.5); Lymphocytes Absolute Auto 0.5 10^3/uL (1.2-3.8); Lymphocytes Percent Auto 3.3 % (20.5-60.0); Mean Corpuscular HGB Conc 31.6 g/dL (29.9-35.2); Mean Corpuscular Hemoglobin 28.8 pg (25.9-34.0); Mean Corpuscular Volume 91.2 fL (80.0-94.0); Mean Platelet Volume 12.2 fL (9.5-13.5); Monocytes Absolute Auto 1.2 10^3/uL (0.3-0.8); Monocytes Percent Auto 7.7 % (1.7-12.0); Neutrophils Absolute Auto 13.2 10^3/uL (1.4-6.5); Neutrophils Percent Auto 87.8 % (43.0-75.0); Platelet Count 216 10^3/uL (150-450); Red Blood Count 4.79 10^6/uL (4.70-6.10); Red Cell Distribution Width 16.5 % (11.0-15.0)
[2024-05-28 06:00] LABS: Anion Gap 6.5; BUN Creatinine Ratio 28.6; C Reactive Protein <0.50 mg/dL (<=0.50); Calcium 9.4 mg/dL (8.5-10.1); Carbon Dioxide 36.3 mmol/L (21.0-32.0); Chloride 106 mmol/L (98-107); Estimated GFR (African America >60 (>=60 mL/min/1.73m^2); Estimated GFR (Non-African Ame >60 (>=60 mL/min/1.73m^2); Glucose 103 mg/dL (74-106); Potassium 3.8 mmol/L (3.5-5.1); Sodium 145 mmol/L (136-145)
[2024-05-28 06:05] LABS: Erythrocyte Sedimentation Rate 10 mm/hr (<=20)
[2024-05-28 06:13] LABS: Digoxin 1.5 ng/mL (0.9-2.0)
--- NOTE | 2024-05-28 07:44 | P.PN_ITS ---
Progress Note: Subjective Subjective Interval history: Patient with no specific complaint this morning, still with some weakness with ambulation, discussed options for his treatment as an outpatient, he will need IV antibiotics at least twice a day if not 3 times a day and he will be unable to manage this at home. Exam Constitutional Vital Signs, click to edit/add: Last Vital Signs Temp 97.9 F 05/28/24 04:00 Pulse 66 05/28/24 05:19 Resp 18 05/28/24 05:19 BP 154/74 H 05/28/24 04:00 Pulse Ox 95 05/28/24 05:19 O2 Del Method Nasal Cannula 05/28/24 05:19 O2 Flow Rate 3 05/28/24 05:19 Documenting provider has reviewed patient's vital signs: yes Common normals: no apparent distress Respiratory Common normals: normal respiratory effort, no retractions and no use of accessory muscles Cardio Common normals: regular rate, regular rhythm and no murmurs GI Common normals: Normal to inspection, nondistended, normoactive bowel sounds present, soft to palpation and non-tender Extremity Common normals: abnormal to inspection (1+ edema, unchanged) Progress Note: Objective Labs Labs: Short CBC 05/28/24 Range/Units 05:38 WBC 15.0 H (4.0-11.0) 10^3/uL Hgb 13.8 L (14.0-18.0) g/dL Hct 43.7 (42.0-54.0) % Plt Count 216 (150-450) 10^3/uL BMP 05/28/24 05:38 Sodium 145 Potassium 3.8 Chloride 106 Carbon Dioxide 36.3 H BUN 30.0 H Creatinine 1.05 Glucose 103 Calcium 9.4 Progress Note: A&P Assessment and Plan (1) Bacteremia: (2) CAD (coronary artery disease): Qualifiers: Associated angina: without angina Coronary Disease-Associated Artery/Lesion type: [place] artery [place] vs. 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 still pending, patient will need at least twice a day if not 3 times a day vancomycin dosing, he will be unable to accomplish this at home, patient in need of halfway facility for IV antibiotic therapy, likely 2 weeks, white blood cell count is elevated today we will repeat thacker-cultures Diabetes mellitus-insulin sliding scale, and home medications-stable Chronic hypoxic respiratory failure secondary to lung mass and COPD-aerosol treatments-no cough this morning Hypertension-continue with current medications-improved from admission Atrial fibrillation-continue with anticoagulation-good rate control Admission status: Patient admitted for recurrent IV antibiotic dosing secondary to Chloe hemolyzing this infection and possible endocarditis, patient mated with significant leukocytosis and lactic acidosis despite being on oral antibiotics, medically necessary treatment will span 2 midnights. Inpatient status ?
[2024-05-28] MEDS: AMLODIPINE BESYLATE 5 MG TABLET 10 MG PO (08:17)
[2024-05-28] MEDS: PREDNISONE 10 MG TABLET 30 MG PO (08:18)
[2024-05-28] MEDS: GLIMEPIRIDE 2 MG TABLET 1 MG PO (08:18)
[2024-05-28] MEDS: CANAGLIFLOZIN 100 MG TABLET PO (08:18)
[2024-05-28] MEDS: METFORMIN HCL 500 MG TABLET PO ×2 (08:19→21:34)
[2024-05-28] MEDS: LISINOPRIL 20 MG TABLET PO (08:19)
[2024-05-28] MEDS: PANTOPRAZOLE SODIUM 40 MG TABLET.DR PO (08:19)
[2024-05-28] MEDS: ATORVASTATIN CALCIUM 40 MG TABLET 80 MG PO (08:19)
[2024-05-28] MEDS: FLUCONAZOLE 100 MG TABLET 200 MG PO (08:19)
[2024-05-28] MEDS: FUROSEMIDE 40 MG TABLET PO ×2 (08:20→16:15)
[2024-05-28] MEDS: DIGOXIN 125 MCG TABLET 250 MCG PO (08:20)
[2024-05-28] MEDS: METOPROLOL TARTRATE 50 MG TABLET PO ×2 (08:20→21:34)
[2024-05-28] MEDS: FISH OIL 1,000 MG CAPSULE 1000 MG PO (08:20)
[2024-05-28] MEDS: MULTIVITAMIN TABLET 1 TAB PO (08:20)
[2024-05-28] MEDS: SPIRONOLACTONE 25 MG TABLET PO (08:20)
[2024-05-28] MEDS: DORZOLAMIDE HCL 2%/TIMOLOL MALEATE 0.5% 200 DROP/10 ML BOTTLE OP ×2 (08:29→21:34)
--- NOTE | 2024-05-28 09:04 | SWNOTE1 ---
SW had email from Kenyatta at [facility] and they are able to accept and started precert last evening around 4:30pm. SW to let pt and know.
[2024-05-28] MEDS: VANCOMYCIN HCL 750 MG in 0.9 % SODIUM CHLORIDE 250 ML 250 MG IV ×2 (10:08→21:33)
--- NOTE | 2024-05-28 11:21 | PT.DAILY ---
Physical Therapy Daily Note PT Daily Note/Assess Start: 05/27/24 12:52 Freq: Status: Active Protocol: Document 05/28/24 10:50 NICK (Rec: 05/28/24 11:20 NICK [id number]) Physical Therapy Daily Note/Assessment Time In/Time Out Time In 10:49 Time Out 11:02 Subjective Subjective Patient reports feeling good today and has has no complaints. Therapeutic Exercise Time Therapeutic Exercise 4 Minutes (minutes) Therapeutic Exercise 0 Units Therapeutic Exercise Treatment Therapeutic Exercise Seated Exercises: Treatment LAQ x 10 Marches x 10 Hip abd x 10 Hip adduction squeezes x 10 HR/TR x 10 Therapeutic Activity Time Therapeutic Activity 9 Minutes (minutes) Therapeutic Activity 1 Units Therapeutic Activity Treatment Bed Mobility Ability Independent Chair Transfer Independent Ability Therapeutic Activity Patient ambulated 220 feel with IV pole and assistance Comments requires for O2 line. Total Physical Therapy Time Total Therapy 13 Minutes Total Physical 1 Therapy Units Summary Daily Note Summary Patient demonstrates increased distance to 220 feet with ambulation with IV pole. Assistance is required for O2 line. Patient in bed with call light in reach and all needs met post treatment.
[2024-05-28 11:46] LABS: Glucometer 208 mg/dL (74-106)
[2024-05-28] MEDS: INSULIN ASPART 300 UNIT/3 ML PEN SUBQ ×3 (12:37→21:34)
--- NOTE | 2024-05-28 12:49 | SWNOTE1 ---
AB faxed updates to Kenyatta at [facility] for precert.
[2024-05-28] MEDS: RIVAROXABAN 10 MG TABLET 20 MG PO (16:14)
[2024-05-28 16:23] LABS: Glucometer 205 mg/dL (74-106)
[2024-05-28 20:30] LABS: Glucometer 258 mg/dL (74-106)
[2024-05-28] MEDS: LATANOPROST 0.005% 2.5 ML BOTTLE 1 DROP OP (20:34)
[2024-05-29] VITALS (12 sets, daily range): BP systolic 118–179; BP diastolic 58–83; PULSE 59–79; TEMP 36.4–36.8; O2SAT 92–97; BMI 23.2
[2024-05-29] MEDS: IPRATROPIUM/ALBUTEROL SULFATE 3 ML AMPUL.NEB IH ×4 (04:03→20:19)
[2024-05-29] MEDS: PENICILLIN G POTASSIUM 2,500,000 UNIT in 0.9 % SODIUM CHLORIDE 50 ML 100 UNIT IV ×6 (04:21→23:41)
[2024-05-29 05:46] LABS: Basophils Percent Auto 0.1 % (0.2-2.0); Eosinophils Absolute Auto 0.1 10^3/uL (0.0-0.7); Hematocrit 42.3 % (42.0-54.0); Hemoglobin 13.4 g/dL (14.0-18.0); Immature Granulocytes Abs Auto 0.09 10^3/uL (0.00-0.03); Immature Granulocytes Pct Auto 0.6 % (0.0-0.5); Lymphocytes Absolute Auto 0.4 10^3/uL (1.2-3.8); Mean Corpuscular HGB Conc 31.7 g/dL (29.9-35.2); Mean Corpuscular Hemoglobin 28.8 pg (25.9-34.0); Mean Corpuscular Volume 90.8 fL (80.0-94.0); Mean Platelet Volume 12.5 fL (9.5-13.5); Monocytes Percent Auto 6.8 % (1.7-12.0); Neutrophils Absolute Auto 12.8 10^3/uL (1.4-6.5); Neutrophils Percent Auto 88.5 % (43.0-75.0); Platelet Count 169 10^3/uL (150-450); Red Blood Count 4.66 10^6/uL (4.70-6.10); Red Cell Distribution Width 16.5 % (11.0-15.0); White Blood Count 14.5 10^3/uL (4.0-11.0)
[2024-05-29 06:09] LABS: Digoxin 1.9 ng/mL (0.9-2.0)
[2024-05-29 06:13] LABS: Anion Gap 4.8; C Reactive Protein <0.50 mg/dL (<=0.50); Calcium 9.4 mg/dL (8.5-10.1); Carbon Dioxide 38.4 mmol/L (21.0-32.0); Chloride 105 mmol/L (98-107); Estimated GFR (African America >60 (>=60 mL/min/1.73m^2); Estimated GFR (Non-African Ame >60 (>=60 mL/min/1.73m^2); Glucose 55 mg/dL (74-106); Potassium 4.2 mmol/L (3.5-5.1); Sodium 144 mmol/L (136-145)
[2024-05-29 06:15] LABS: Erythrocyte Sedimentation Rate 3 mm/hr (<=20)
--- NOTE | 2024-05-29 07:22 | CM.NOTE ---
2nd Important Message From Medicare discussed with pt, pt denies questions or concerns.
[2024-05-29 07:26] LABS: Glucometer 74 mg/dL (74-106)
--- NOTE | 2024-05-29 08:10 | P.PN_ITS ---
Progress Note: Subjective Subjective Interval history: Patient continues to feel fairly well, ambulating well, still some dyspnea with activity Exam Constitutional Vital Signs, click to edit/add: Last Vital Signs Temp 97.6 F 05/29/24 04:00 Pulse 63 05/29/24 07:36 Resp 14 05/29/24 07:36 BP 179/80 H 05/29/24 07:36 Pulse Ox 94 L 05/29/24 07:36 O2 Del Method Nasal Cannula 05/29/24 07:36 O2 Flow Rate 3 05/29/24 07:36 Documenting provider has reviewed patient's vital signs: yes Common normals: no apparent distress Chest Common normals: inspection of chest normal and palpation of chest normal Respiratory Common normals: normal respiratory effort, no retractions, no use of accessory muscles and clear to auscultation bilaterally Cardio Common normals: regular rate, regular rhythm and no murmurs Extremity Common normals: normal to inspection and full ROM Progress Note: Objective Labs Labs: Short CBC 05/29/24 Range/Units 05:17 WBC 14.5 H (4.0-11.0) 10^3/uL Hgb 13.4 L (14.0-18.0) g/dL Hct 42.3 (42.0-54.0) % Plt Count 169 (150-450) 10^3/uL BMP 05/29/24 05:17 Sodium 144 Potassium 4.2 Chloride 105 Carbon Dioxide 38.4 H BUN 27.0 H Creatinine 0.93 Glucose 55 L Calcium 9.4 Progress Note: A&P Assessment and Plan (1) Bacteremia: (2) CAD (coronary artery disease): Qualifiers: Associated angina: without angina Coronary Disease-Associated Artery/[place] type: [place] artery [place] vs. 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 -48 hours cultures so far negative, maintain current antibiotics likely be able to change to just vancomycin tomorrow Diabetes mellitus-insulin sliding scale, adjust home medication dosing today 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 Inpatient status ?
[2024-05-29] MEDS: MULTIVITAMIN TABLET 1 TAB PO (08:36)
[2024-05-29] MEDS: METOPROLOL TARTRATE 50 MG TABLET PO ×2 (08:36→21:06)
[2024-05-29] MEDS: ATORVASTATIN CALCIUM 40 MG TABLET 80 MG PO (08:36)
[2024-05-29] MEDS: AMLODIPINE BESYLATE 5 MG TABLET 10 MG PO (08:36)
[2024-05-29] MEDS: GLIMEPIRIDE 2 MG TABLET 1 MG PO (08:37)
[2024-05-29] MEDS: FLUCONAZOLE 100 MG TABLET 200 MG PO (08:37)
[2024-05-29] MEDS: FISH OIL 1,000 MG CAPSULE 1000 MG PO (08:37)
[2024-05-29] MEDS: SPIRONOLACTONE 25 MG TABLET PO (08:37)
[2024-05-29] MEDS: FUROSEMIDE 40 MG TABLET PO ×2 (08:37→17:03)
[2024-05-29] MEDS: CANAGLIFLOZIN 100 MG TABLET PO (08:37)
[2024-05-29] MEDS: PANTOPRAZOLE SODIUM 40 MG TABLET.DR PO (08:37)
[2024-05-29] MEDS: LISINOPRIL 20 MG TABLET PO (08:37)
[2024-05-29] MEDS: METFORMIN HCL 500 MG TABLET PO ×2 (08:40→21:06)
[2024-05-29] MEDS: DIGOXIN 125 MCG TABLET 250 MCG PO (08:40)
[2024-05-29] MEDS: DORZOLAMIDE HCL 2%/TIMOLOL MALEATE 0.5% 200 DROP/10 ML BOTTLE OP ×2 (08:44→21:07)
[2024-05-29] MEDS: PREDNISONE 10 MG TABLET 30 MG PO (09:43)
[2024-05-29] MEDS: GLIMEPIRIDE 2 MG TABLET PO (09:44)
[2024-05-29 10:06] LABS: Vancomycin Trough 12.4 ug/mL (5.0-20.0)
[2024-05-29] MEDS: VANCOMYCIN HCL 750 MG in 0.9 % SODIUM CHLORIDE 250 ML 250 MG IV ×2 (10:18→21:07)
--- NOTE | 2024-05-29 10:42 | SWNOTE1 ---
SW sent over progress note, med list, vitals, and labs to [facility] for precert.
[2024-05-29 11:31] LABS: Glucometer 205 mg/dL (74-106)
[2024-05-29] MEDS: INSULIN ASPART 300 UNIT/3 ML PEN SUBQ ×2 (11:35→21:06)
--- NOTE | 2024-05-29 11:57 | SWNOTE1 ---
Kenyatta at [facility] called and asked if pt would be alright being in semi-private room. SW to ask pt. AB spoke to pt about semi-private room and he voiced that would be fine. AB updated Kenyatta at [facility].
--- NOTE | 2024-05-29 14:15 | SWNOTE1 ---
SW completed HENS online.
[2024-05-29 16:33] LABS: Glucometer 107 mg/dL (74-106)
[2024-05-29] MEDS: RIVAROXABAN 10 MG TABLET 20 MG PO (17:00)
[2024-05-29 21:04] LABS: Glucometer 233 mg/dL (74-106)
[2024-05-29] MEDS: LATANOPROST 0.005% 2.5 ML BOTTLE 1 DROP OP (21:07)
[2024-05-30] VITALS (7 sets, daily range): BP systolic 148–168; BP diastolic 73–78; PULSE 60–78; TEMP 36.6–37.1; O2SAT 93–95
[2024-05-30] MEDS: IPRATROPIUM/ALBUTEROL SULFATE 3 ML AMPUL.NEB IH ×2 (04:16→11:02)
[2024-05-30] MEDS: PENICILLIN G POTASSIUM 2,500,000 UNIT in 0.9 % SODIUM CHLORIDE 50 ML 100 UNIT IV ×2 (04:52→10:04)
[2024-05-30 06:07] LABS: Hematocrit 40.3 % (42.0-54.0); Hemoglobin 12.8 g/dL (14.0-18.0); Mean Corpuscular HGB Conc 31.8 g/dL (29.9-35.2); Mean Corpuscular Hemoglobin 28.8 pg (25.9-34.0); Mean Corpuscular Volume 90.8 fL (80.0-94.0); Mean Platelet Volume 12.4 fL (9.5-13.5); Platelet Count 209 10^3/uL (150-450); Red Blood Count 4.44 10^6/uL (4.70-6.10); Red Cell Distribution Width 16.5 % (11.0-15.0); White Blood Count 14.8 10^3/uL (4.0-11.0)
[2024-05-30 06:10] LABS: Anion Gap 8.9; Calcium 9.4 mg/dL (8.5-10.1); Carbon Dioxide 37.9 mmol/L (21.0-32.0); Chloride 100 mmol/L (98-107); Erythrocyte Sedimentation Rate 3 mm/hr (<=20); Estimated GFR (African America >60 (>=60 mL/min/1.73m^2); Estimated GFR (Non-African Ame >60 (>=60 mL/min/1.73m^2); Glucose 95 mg/dL (74-106); Potassium 3.8 mmol/L (3.5-5.1); Sodium 143 mmol/L (136-145)
[2024-05-30 06:33] LABS: C Reactive Protein <0.50 mg/dL (<=0.50)
[2024-05-30 06:37] LABS: Lymphocytes Absolute Manual 0.44 10^3/uL (1.20-3.80); Monocytes Absolute Manual 0.74 10^3/uL (0.30-0.80); Segmented Neut Absolute Manual 13.61 10^3/uL (1.4-6.5)
--- NOTE | 2024-05-30 08:16 | P.PN_ITS ---
Progress Note: Subjective Subjective Interval history: No specific complaint, still weakness with ambulation, no shortness of breath at rest only minimal cough nonproductive Exam Constitutional Vital Signs, click to edit/add: Last Vital Signs Temp 97.9 F 05/30/24 04:00 Pulse 64 05/30/24 04:16 Resp 15 05/30/24 08:00 BP 168/73 H 05/30/24 04:00 Pulse Ox 94 L 05/30/24 04:16 O2 Del Method Nasal Cannula 05/30/24 04:16 O2 Flow Rate 3 05/30/24 04:16 Documenting provider has reviewed patient's vital signs: yes Common normals: no apparent distress Chest Common normals: inspection of chest normal and palpation of chest normal Respiratory Common normals: normal respiratory effort and clear to auscultation bilaterally Cardio Common normals: regular rate and regular rhythm GI Common normals: Normal to inspection, nondistended, normoactive bowel sounds present, soft to palpation and non-tender Extremity Common normals: normal to inspection, full ROM and normal capillary refill Progress Note: Objective Labs Labs: Short CBC 05/30/24 Range/Units 05:23 WBC 14.8 H (4.0-11.0) 10^3/uL Hgb 12.8 L (14.0-18.0) g/dL Hct 40.3 L (42.0-54.0) % Plt Count 209 (150-450) 10^3/uL BMP 05/30/24 05:23 Sodium 143 Potassium 3.8 Chloride 100 Carbon Dioxide 37.9 H BUN 30.0 H Creatinine 0.77 Glucose 95 Calcium 9.4 Progress Note: A&P Assessment and Plan (1) Bacteremia: (2) CAD (coronary artery disease): Qualifiers: Coronary Disease-Associated Artery/Lesion type: [place] artery [place] vs. 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 - maintain current IV antibiotic dosing, anticipate possible rehab today, will do vancomycin only at rehab white blood cell count is maintaining some elevation, pancultures repeated again yesterday Diabetes mellitus-insulin sliding scale, adjust home medication dosing yesterday Iron deficiency anemia-stable 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 Inpatient status ?
--- NOTE | 2024-05-30 08:24 | SWNOTE1 ---
AB faxed PICC line information, progress note from today, and vitals to Kenyatta at [employer].
--- NOTE | 2024-05-30 09:13 | SWNOTE1 ---
Kenyatta at [facility] sent message and clinical wanted to know when we were administering IV anbx. SW had already sent med list daily for precert. SW sent med list again and put a star next to the [facility] dosage times and dates.
[2024-05-30] MEDS: 0.9 % SODIUM CHLORIDE 250 ML 100 ML IV ×2 (10:06→10:46)
[2024-05-30] MEDS: METFORMIN HCL 500 MG TABLET PO (10:23)
[2024-05-30] MEDS: AMLODIPINE BESYLATE 5 MG TABLET 10 MG PO (10:24)
[2024-05-30] MEDS: DIGOXIN 125 MCG TABLET 250 MCG PO (10:24)
[2024-05-30] MEDS: ATORVASTATIN CALCIUM 40 MG TABLET 80 MG PO (10:25)
[2024-05-30] MEDS: FISH OIL 1,000 MG CAPSULE 1000 MG PO (10:25)
[2024-05-30] MEDS: FLUCONAZOLE 100 MG TABLET 200 MG PO (10:25)
[2024-05-30] MEDS: CANAGLIFLOZIN 100 MG TABLET PO (10:25)
[2024-05-30] MEDS: LISINOPRIL 20 MG TABLET PO (10:26)
[2024-05-30] MEDS: MULTIVITAMIN TABLET 1 TAB PO (10:26)
[2024-05-30] MEDS: FUROSEMIDE 40 MG TABLET PO (10:26)
[2024-05-30] MEDS: GLIMEPIRIDE 2 MG TABLET PO (10:26)
[2024-05-30] MEDS: METOPROLOL TARTRATE 50 MG TABLET PO (10:26)
[2024-05-30] MEDS: SPIRONOLACTONE 25 MG TABLET PO (10:27)
[2024-05-30] MEDS: PANTOPRAZOLE SODIUM 40 MG TABLET.DR PO (10:27)
[2024-05-30] MEDS: DORZOLAMIDE HCL 2%/TIMOLOL MALEATE 0.5% 200 DROP/10 ML BOTTLE OP (10:37)
[2024-05-30] MEDS: VANCOMYCIN HCL 750 MG in 0.9 % SODIUM CHLORIDE 250 ML 250 MG IV (10:39)
[2024-05-30] MEDS: PREDNISONE 10 MG TABLET 30 MG PO (10:45)
--- NOTE | 2024-05-30 10:50 | P.DS_ITS ---
DS: Providers Provider Date of admission: 05/26/24 18:05 Primary care physician: Jaxon Sahu MD Consults: 05/26/24 18:59 Consult to Pharmacy Routine Consulting Provider: Reason for consultation: Please [place] me when Med Rec is Updated Has provider been notified: No Occupational Therapy Eval and Treat Routine Reason for consultation: Only if needed for Rehab Has provider been notified: No Physical Therapy Eval and Treat Routine Reason for consultation: Eval and Treat Has provider been notified: No 05/26/24 19:00 Consult to Cardiology Routine Reason for consultation: ?endocarditis Has provider been notified: No 05/27/24 07:45 Consult to Pharmacy Routine Consulting Provider: Reason for consultation: Set up QD dosing vanco for possibel OP treatment DS: Diagnosis Discharge Diagnosis (1) Bacteremia: (2) CAD (coronary artery disease): Qualifiers: Coronary Disease-Associated Artery/Lesion type: [place] artery [place] vs. 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 - maintain current IV antibiotic dosing, anticipate possible rehab today, will do vancomycin only at rehab white blood cell count is maintaining some elevation, pancultures repeated again yesterday Diabetes mellitus-insulin sliding scale, adjust home medication dosing yesterday Iron deficiency anemia-stable 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 Inpatient status ? DS: Summary Time Spent with Patient Time attestation: Total time spent providing and/or coordinating discharge services: Exam Constitutional Vital Signs, click to edit/add: Last Vital Signs Temp 98.8 F 05/30/24 08:39 Pulse 62 05/30/24 10:24 Resp 14 05/30/24 08:53 BP 148/78 H 05/30/24 08:39 Pulse Ox 94 L 05/30/24 08:39 O2 Del Method Nasal Cannula 05/30/24 08:39 O2 Flow Rate 3 05/30/24 08:39 DS: Data Data Completed and Pending Labs on day of discharge: Labs from last 24 hours 05/30/24 05/29/24 05/29/24 05:23 21:03 16:31 WBC 14.8 H RBC 4.44 L Hgb 12.8 L Hct 40.3 L MCV 90.8 MCH 28.8 MCHC 31.8 RDW 16.5 H Plt Count 209 MPV 12.4 Seg Neuts % (Manual) 92.0 H Lymphocytes % (Manual) 3.0 L Monocytes % (Manual) 5.0 Eosinophils % (Manual) 0.0 L Basophils % (Manual) 0.0 L Neutrophils # (Manual) 13.61 H Lymphocytes # (Manual) 0.44 L Monocytes # (Manual) 0.74 Eosinophils # (Manual) 0.00 Basophils # (Manual) 0.00 ESR 3 Sodium 143 Potassium 3.8 Chloride 100 Carbon Dioxide 37.9 H Anion Gap 8.9 BUN 30.0 H Creatinine 0.77 Est GFR ( Amer) >60 Est GFR (Non-Af Amer) >60 BUN/Creatinine Ratio 39.0 Glucose 95 Calcium 9.4 C-Reactive Protein <0.50 Digoxin 2.0 POC Glucose 233 H 107 H 05/29/24 11:27 WBC RBC Hgb Hct MCV MCH MCHC RDW Plt Count MPV Seg Neuts % (Manual) Lymphocytes % (Manual) Monocytes % (Manual) Eosinophils % (Manual) Basophils % (Manual) Neutrophils # (Manual) Lymphocytes # (Manual) Monocytes # (Manual) Eosinophils # (Manual) Basophils # (Manual) ESR Sodium Potassium Chloride Carbon Dioxide Anion Gap BUN Creatinine Est GFR ( Amer) Est GFR (Non-Af Amer) BUN/Creatinine Ratio Glucose Calcium C-Reactive Protein Digoxin POC Glucose 205 H Preliminary micro results at discharge 05/26/24 15:15 Blood Culture Result 2 - Preliminary Blood NO GROWTH AT 36-48 HOURS. FINAL TO FOLLOW. 05/26/24 14:31 Blood Culture Result 2 - Preliminary Blood - Right Antecubital NO GROWTH AT 36-48 HOURS. FINAL TO FOLLOW. 05/26/24 14:24 Blood Culture Result 1 - Preliminary Blood - Left Forearm NO GROWTH AT 36-48 HOURS. FINAL TO FOLLOW. Discharge Plan Discharge Disposition: Xfer SNF Condition: Fair Discharge Medications: New glimepiride 2 mg Tablet 2 mg PO DAILY Qty: 30 0RF Vancomycin HCl 750 MG 0.9 % Sodium Chloride [Sodium Chloride 0.9% 250 ml] 250 ML 250 mls/hr IV Q12H Ordered By: Jaxon Sahu MD Last Taken: 05/30/24 10:39 250 mls/hr Continued lisinopril 20 mg Tablet 20 mg PO QD Qty: 30 11RF amlodipine 10 mg tablet 10 mg PO DAILY Qty: 30 11RF spironolactone 25 mg tablet 25 mg PO QAM metoprolol tartrate 50 mg Tablet 50 mg PO BID Qty: 60 11RF fluconazole [Diflucan] 200 mg tablet 200 mg PO DAILY Qty: 14 0RF digoxin 250 mcg (0.25 mg) tablet 250 mcg PO DAILY Qty: 30 11RF prednisone 10 mg tablet 30 mg PO DAILY Qty: 20 0RF Rx Instructions: 3/day for 3 days, 2/day for 3 days, 1/day for 3 days, 1/2 /day for 4 days furosemide [Lasix] 40 mg tablet 40 mg PO Q12H atorvastatin 80 mg tablet 80 mg PO DAILY metformin 500 mg tablet 500 mg PO BID pantoprazole 40 mg tablet,delayed release (DR/EC) 40 mg PO DAILY Xarelto 20 mg tablet 20 mg PO DAILY omega [id number] oil [Fish Oil] 300-1,000 mg capsule 1 cap PO DAILY Jardiance 10 mg tablet 10 mg PO DAILY multivitamin [Daily Multi-Vitamin] Tablet 1 tab PO DAILY dorzolamide-timolol 22.3-6.8 mg/mL drops 1 drp OPHTHALMIC (EYE) BID Patient Comments: both eyes latanoprost 0.005 % drops 1 drp OPHTHALMIC (EYE) QPM Patient Comments: both eyes Discontinued glimepiride 2 mg tablet 1 mg PO DAILY cefdinir 300 mg capsule 600 mg PO DAILY Qty: 20 0RF Print Language: [place] [employer] Making Supervisor/Van [employer] Instructions: Discharge to [facility] skilled Forms: Portal Instructions
--- NOTE | 2024-05-30 10:53 | SWNOTE1 ---
SW received an email and pt did get approved to go skilled. SW notified doctor. Pt is stable for discharge today. AB did reach out to Kenyatta at [facility] to see if they have transport, waiting to hear back.
[2024-05-30 11:14] LABS: Glucometer 245 mg/dL (74-106)
--- NOTE | 2024-05-30 11:30 | SWNOTE1 ---
AB faxed over dc med rec to [facility]. AB called and set up trips from 2:45-3:00pm. AB notified nurse, [facility], and patient of time. AB completed HENS online. AB took packet to med/surge floor. Pt is going skilled to [facility].
[2024-05-30] MEDS: INSULIN ASPART 300 UNIT/3 ML PEN SUBQ (11:31)
== END 2024-05-30 15:07 | DRG 871 ==
LOC: ER 15:46 → MS 18:14
PROVIDERS: Admitting Provider Family Medicine; Emergency Provider Student in an Organized Health Care Education/Training Program; PCP Family Medicine; Visit Provider Family Medicine
DX: R78.81 Bacteremia (principal); I50.23 Acute on chronic systolic (congestive) heart failure; J96.11 Chronic respiratory failure with hypoxia; E87.20 Acidosis, unspecified; I38 Endocarditis, valve unspecified; B96.89 Other specified bacterial agents as the cause of diseases classified elsewhere; I25.10 Atherosclerotic heart disease of native coronary artery without angina pectoris; I11.0 Hypertensive heart disease with heart failure; E11.65 Type 2 diabetes mellitus with hyperglycemia; R91.8 Other nonspecific abnormal finding of lung field; J44.9 Chronic obstructive pulmonary disease, unspecified; Z87.891 Personal history of nicotine dependence; I48.91 Unspecified atrial fibrillation; Z87.01 Personal history of pneumonia (recurrent); C61 Malignant neoplasm of prostate; Z95.0 Presence of cardiac pacemaker; Z95.5 Presence of coronary angioplasty implant and graft; Z79.84 Long term (current) use of oral hypoglycemic drugs; Z79.899 Other long term (current) drug therapy; D50.9 Iron deficiency anemia, unspecified
CPT/HCPCS: 36415; 36569; 36592; 71045; 80048; 80162; 80202; 81001; 82948; 83605; 85007; 85025; 85027; 85652; 86140; 87040; 87070; 87086; 87205; 93005; 94640; 94667; 94668; 94761; 96365; 96366; 97161; 97165; 97530; 99285; C1887; J2540; J3370; J7512

== ENCOUNTER 2024-06-23 12:10 | Outpatient (OUT) | payer MEDICARE, SELFPAY ==
--- OUTSIDE RECORDS SUMMARY | 2024-06-23 12:25 | XMS_ITS | CCD ---
Author Organization [facility] CliniSyca Care Team Providers Care Teacher Vocational Training Name Role Phone JUANITAHAWLatha, EHAB A Attending Unavailable KYA EHAB Shanda Admitting Unavailable JOSY DELACRUZ Referring Unavailable [...] JUDGE Attending Unavailable Yousuf JUDGE Attending Unavailable Unavailable Primary Care Provider UnavailJosy David MD Primary Care Provider Josy Delacruz MD Primary Care Provider Comfort Bradshaw MD Attending Provider Josy Delacruz MD Primary Care Provider Comfort Bradshaw MD Attending Provider Josy Delacruz MD Attending Provider Josy Delacruz Admitting Unavailable Josy Delacruz Attending Unavailable Comfort Bradshaw Admitting Unavailable Comfort Bradshaw Attending Unavailable Josy Delacruz Primary Care Unavailable JACKY RUIZ Attending Unavailable CHRIS DIXON Attending Unavailable CARA PEREZ Attending Unavailable SATHISHI, NICOLASAMED Referring Unavailable OMBALLI, NICOLASAMED Referring Unavailable OMBALLI, CARA Attending Unavailable OMBALLI, NICOLASAMED Referring Unavailable OMBALLI, NICOLASAMED Referring Unavailable ZULY RIZO Referring Unavailable SATHISHI, NICOLASAMED Referring Unavailable AARON RIVAS Admitting Unavailable AARON RIVAS Attending Unavailable AARON RIVAS Referring Unavailable CHRIS DIXON Attending Unavailable CHRIS DIXON Attending Unavailable Josy Delacruz MD Primary Care Provider [phone] Yanelis BRADSHAW Attending Unavailable ENRICOELEYanelis Barroso Referring Unavailable HOY, JOSY M Primary Care Unavailable Yanelis BRADSHAW Referring Unavailable HOY, JOSY M Primary Care Unavailable Yanelis BRADSHAW Attending Unavailable JOAQUIM, MEETA Referring Unavailable HOY, JOSY M Primary Care Unavailable ENGELEYanelis Barroso Referring Unavailable HOY, JOSY M Primary Care Unavailable Yanelis BRADSHAW Attending Unavailable ENGELERYanelis Referring Unavailable HOY, JOSY M Primary Care Unavailable HOY, JOSY M Primary Care Unavailable HOY, JOSY M Referring Unavailable HOY, JOSY M Referring Unavailable HOY, JOSY M Primary Care Unavailable HOY, JOSY M Referring Unavailable HOY, JOSY M Primary Care Unavailable KELY BORDEN Attending Unavailable KELY BORDEN Attending Unavailable KELY BORDEN Attending Unavailable KELY BORDEN Attending Unavailable Medications Current Medications Medication Drug Class(es) Dates Sig (Normalized) Sig (Original) Amlodipine (17 sources) Dihydropyridine Calcium Channel Pushpa Start: 04-25-2019 amlodipine Oral, Daily, Refills(s) 0 Start Date: 04/25/19 Status: Ordered take 1 tablet by mouth once syed y amLODIPine (NORVASC) 10 mg tablet Take 10 mg by mouth once daily. Active amLODIPine 10 mg / benazepril hydrochloride 20 mg oral capsule (20 sources) Dihydropyridine Calcium Channel Pushpa, Angiotensin Converting Enzyme Inhibitor Start: 08-12-2018 take 1 capsule by mouth once daily Amlodipine-Benazepril 10-20 mg Capsule Active 1 CAP PO Daily August 12, 2018 12:00am aspirin 81 mg delayed release oral tablet (5 sources) Platelet Aggregation Inhibitor, Nonsteroidal Anti-inflammatory Drug take 1 tablet by mouth in the morning aspirin 81 MG EC tablet Take 1 tablet by mouth in the morning. Active atorvastatin 80 mg oral tablet (8 sources) HMG-CoA Reductase Inhibitor Start: 04-25-2021 take 1 mg by mouth once daily atorvastatin 80 mg Tab mg tab(s), Oral, Daily, Refills(s) 0 Start Date: 04/25/21 Status: Ordered carvedilol 12.5 mg oral tablet (13 sources) alpha-Adrenergic Pushpa, beta-Adrenergic Pushpa Start: 04-03-2022 [...] route. Active cefdinir 300 mg oral capsule (14 sources) Cephalosporin Antibacterial take 1 capsule by mouth twice daily cefdinir (OMNICEF) 300 mg capsule Take 300 mg by mouth two times a day. Active cinnamon bark 500 mg oral capsule (15 sources) take 2 capsules by mouth once [...] / eicosapentaenoic acid 180 mg oral capsule (5 sources) omega-3 (fish oi l) 1000 MG capsule 1 capsule 1 (one) time each day at the same time. Active DOCOSAHEXANOIC ACID/EPA (FISH OIL ORAL) (15 sources) DOCOSAHEXANOIC ACID/EPA (FISH OIL ORAL) Take by mouth. Active dorzolamide 20 mg/ml / timolol 5 mg/ml ophthalmic solution (6 sources) Carbonic Anhydrase Inhibitor, beta-Adrenergic Pushpa Start: 024 End: 026 take 1 drop(s) into the eye(s) in the morning dorzolamide-timolol (Cosopt) 2-0.5 % ophthalmic solution Indications: Primary open angle glaucoma (POAG) of both eyes, mild stage Administer 1 drop into both eyes in the morning and 1 drop before bedtime. 10 mL 5 05/02/2024 05/02/2025 Active empagliflozin 10 mg oral tablet (19 sources) Sodium-Glucose Cotransporter 2 Inhibitor take 1 tablet by mouth in the morning Jardiance 10 MG Take 1 tablet by mouth in the morning. Active ferrous sulfate 325 mg delayed release oral tablet (10 sources) Start: 022 take 1 mg by [...] Status: Ordered fluconazole 200 mg oral tablet (14 sources) Azole Antifungal take 1 tablet by mouth once daily fluconazole (DIFLUCAN) 200 mg tablet Take 200 mg by mouth once daily. Active furosemide 40 mg oral tablet (20 sources) Loop Diuretic Start: 04-25-2021 take 1 [...] IRON,CARB/VIT C/VIT B12/FOLIC (IRON 100 PLUS ORAL) (15 sources) IRON,CARB/VIT C/VIT B12/FOLIC (IRON 100 PLUS ORAL) Take by mouth. Active latanoprost 0.05 mg/ml ophthalmic solution (20 sources) Prostaglandin Analog Start: 07-16-2023 End: 05-02-2024 take 1 drop(s) into the eye(s) at bedtime latanoprost (Xalatan) 0.005 % ophthalmic solution Indications: Primary open angle glaucoma (POAG) of both eyes, mild stage Administer 1 drop into both eyes at bedtime 2.5 mL 5 05/02/2024 Active LATANOPROST OPHT HALMIC Use in eyes. Active levoFLOXacin 500 mg oral tablet (5 sources) Quinolone Antimicrobial levoFLOXacin (Levaquin) 500 MG tablet 1 (one) time each day at the same time. Active lisinopril 20 mg oral tablet (14 sources) Angiotensin Converting Enzyme Inhibitor take 1 [...] of prostate w/med recur risk (T2b-c or [place] 7 or PSA 10-20) ([facility]) 05/23/2016 Active 24 hr metoprolol succinate 50 mg extended release oral tablet (18 sources) beta-Adrenergic Pushpa Start: 04-25-2019 take 1 mg by mouth once daily metoprolol 50 mg ER Tab mg tab(s), Oral, Daily, Refills(s) 0 Start Date: 04/25/19 Status: Ordered take 1 tablet by mouth once syed y metoprolol succinate ER (TOPROL XL) 50 mg 24 hr tablet Take 75 mg by mouth once daily. Active mometasone furoate 1 mg/ml topical cream (5 sources) Corticosteroid mometasone (Eloc on) 0.1 % cream 1 application 1 (one) time each day at the same time. Active Multi Vitamin+ (3 sources) Start: 04-25-19 Multi Vitamin+ Refill(s) 0 Start Date: 04/25/19 Status: Ordered Multiple Vitamins-Minerals (Multivitamin Men) tablet (5 sources) Multiple Vitamins-Minerals (Multivitamin Men) tablet as directed Orally Active Multivitamin capsule (15 sources) take 1 capsule by mouth once daily Multivitamin capsule Take 1 capsule by mouth once daily. Active pantoprazole 40 mg delayed release oral tablet (20 sources) Proton Pump Inhibitor Start: 10-14-19 take 1 mg by mouth once daily Pantoprazole [address] Tab mg tab(s), Oral, Daily, Refills(s) 0 Start Date: 10/13/22 Status: Ordered potassium chloride 10 meq extended release oral tablet (14 sources) take 1 tablet by mouth twice daily potassium chloride (K-TAB) 10 mEq tablet Take 10 mEq by mouth two times a day. Active predniSONE 10 mg oral tablet (14 sources) take 1 tablet by mouth once [...] Drug Class(es) Dates Sig (Normalized) Sig (Original) Bevacizumab solution prefilled syringe 1.25 mg (2 sources) Start: 06-17-2024 End: 06-17-2024 Bevacizumab solution prefilled syringe 1.25 mg Start: 06-17-2024 End: 06-17-2024 1.25 mg, Intravitreal, Once PRN Procedure, Starting on Sun06/17/24 at 1550, For 1 dose ciprofloxacin 500 mg oral tablet (1 source) Quinolone Antimicrobial Start: 10-13-2022 End: 10-15-2022 take 1 tablet by mouth once daily Cipro 500 mg Tab 500 mg = 1 tab(s), Oral, Daily, Take one tab day before procedure, take one tab after procedure, X 2 day(s), # 2 tab(s), Refills(s) 0, Pharmacy: [facility]/pharmacy #[id number], 169, cm, 10/13/22 9:51:00 EDT, Height/Length Dosing, 81.2, kg, 10/13/22 9:51:00 EDT, W... Start Date: 10/13/22 Stop Date: 10/15/22 Status: Ordered Problems Active Problems Problem Classification Problem Date Documented Date Episodic/Chronic Bacterial infection; unspecified site (2 sources) Bacteremia; Translations: [Bacteremia] Onset: 06-10-2024 Episodic Cancer of bronchus; lung (9 sources) Malignant tumor of lung; Translations: [Malignant neoplasm of unspecified part of unspecified bronchus or lung] Onset: 04-30-2024 04-21-2024 Chronic Cancer of prostate (18 sources) Malignant tumor of prostate; Translations: [Malignant neoplasm of prostate] Onset: 07-01-2014 04-25-2019 Chronic Cancer; other respiratory and intrathoracic (1 source) Malignant neoplasm of lower respiratory tract 04-25-2024 Chronic Cardiac dysrhythmias (20 sources) Unspecified atrial fibrillation; Translations: [Atrial fibrillation] Onset: 05-28-2014 04-25-2019 Chronic Cataract (7 sources) Bilateral age-related nuclear cataracts; Translations: [Age-related [...] disease (3 sources) Atherosclerotic heart disease of [place] coronary artery without angina pectoris; Translations: [ASHD MODOC CA W/O ANGINA PECTORIS] Onset: 04-07-2022 Chronic [...] Nocturia; Translations: [Nocturia] Onset: 04-21-2022 Episodic Glaucoma (8 sources) Primary open angle glaucoma; Translations: [Primary [...] organs (3 sources) Prostatitis 04-25-2019 Episodic Other aftercare (2 sources) Encounter for therapeutic drug level monitoring; Translations: [Encounter for therapeutic drug level monitoring] Onset: 06-13-2024 Episodic Other diseases of kidney and ureters [...] Retinal detachments; defects; vascular occlusion; and retinopathy (13 sources) Exudative age-related macular degeneration; Translations: [Exudative [...] Test Name Value Interpretation Reference Range Facility Intravitreal Injection, Phar macologic Agent - OD - Right Eyeon 06-17-2024 [facility] Radiology Study observation (narrative) [facility] Ophthalmic OCT panelon 06-17 [facility] Right Eye Images reviewed and comparison made to baseline, Images reviewed. To assess optic nerve function and for use in future follow-up. Reliability: good and adequate. Left Eye Images reviewed and comparison made to baseline, Images reviewed. To assess optic nerve function and for use in future follow-up. Reliability: good and adequate. Notes Nerve fiber layer (NFL) thinning both eyes (OU). [facility] Radiology Study observation (narrative) [facility] Optical coherence tomography study reporton 06-17-2024 [facility] Radiology Study observation (narrative) [facility] Vancomycin Level, Troughon 0 06-13-2024 Date last dose (Dose) UNK^Unknown^L [facility] Time last dose (Dose) UNK^Unknown^L [facility] Vancomycin (Dose) [Mass] Unknown [facility] Vancomycin trough [Mass/Vol] 12.3 ug/mL 10.0 - 20.0 ug/mL [facility] Vancomycin Troughon 06-14-19 25 Vancomycin Trough 12.3 ug/mL Normal 10.0-20.0 [facility] Comment on above: Performed By: #### V NCT #### [facility] [address] [place] [address] Senior Php Software Developer: Lit Peralta MD Date last dose, Unknown Normal [facility] Comment on above: Performed By: #### V NCT #### [facility] [address] [place] [address] Senior Php Software Developer: Lit Peralta MD Dose amount, Unknown Normal [facility] Comment on above: Performed By: #### V NCT #### [facility] [address] [place] [address] Senior Php Software Developer: Lit Peralta MD Time last dose, Unknown Normal [facility] Comment on above: Performed By: #### V NCT #### [facility] [address] [place] [address] Senior Php Software Developer: Lit Peralta MD Vancomycin Level, Troughon 0 06-10-2024 Date last dose (Dose) UNK^Unknown^L [facility] Time last dose (Dose) UNK^Unknown^L [facility] Vancomycin (Dose) [Mass] Unknown [facility] Vancomycin trough [Mass/Vol] 12.7 ug/mL 10.0 - 20.0 ug/mL [facility] Vancomycin Troughon 06-11-19 25 Vancomycin Trough 12.7 ug/mL Normal 10.0-20.0 [facility] Comment on above: Performed By: #### V NCT #### [facility] [address] [place] [address] Senior Php Software Developer: Lit Peralta MD Date last dose, Unknown Normal [facility] Comment on above: Performed By: #### V NCT #### [facility] [address] [place] [address] Senior Php Software Developer: Lit Peralta MD Dose amount, Unknown Normal [facility] Comment on above: Performed By: #### V NCT #### [facility] [address] [place] [address] Senior Php Software Developer: Lit Peralta MD Time last dose, Unknown Normal [facility] Comment on above: Performed By: #### V NCT #### [facility] [address] [place] [address] Senior Php Software Developer: iLt Peralta MD Vancomycin Level, Troughon 0 06-06-2024 Date last dose (Dose) [facility] Time last dose (Dose) UNK^Unknown^L [facility] Vancomycin (Dose) [Mass] [facility] Vancomycin trough [Mass/Vol] 19.4 ug/mL 10.0 - 20.0 ug/mL [facility] Vancomycin Troughon 06-07-19 25 Vancomycin Trough 19.4 ug/mL Normal 10.0-20.0 [facility] Comment on above: Performed By: #### V NCT #### [facility] [address] [place], [place] [id number] Senior Php Software Developer: Lit Peralta MD Date last dose, [facility] Comment on above: Performed By: #### V NCT #### [facility] [address] [place] [address] Senior Php Software Developer: Lit Peralta MD Dose amount, [facility] Comment on above: Performed By: #### V NCT #### [facility] [address] [place] [address] Senior Php Software Developer: Lit Peralta MD Time last dose, Unknown [facility] Comment on above: Performed By: #### V NCT #### [facility] [address] [place] [address] Senior Php Software Developer: Lit Peralta MD Documentationon 05-26-2024 Documentation [id number] Khadar Dawn 1940 M Date Provider Department Center 05/26/2024 [facility] Family History Problem Relation Age of Onset Other Father Coronary artery disease Brother Other Brother Family Status - Relation Status Age at Father Brother Normal [facility] [place] 05-21-2024 LIZ Telephone (PageStitchA) KHADAR DAWN ([id number]) 1940 M Date Time Provider Department 05/21/24 Yanelis BRADSHAW During your visit today, we recorded the following information about you: Rojelio Guajardo RN 05/21/2024 3:58 PM Signed FYI--Dr. Ponce's office called to notify Dr. Bradshaw that Khadar did not show for his consult today. Patient was referred to Dr. Ponce per patient request to establish care with a local pharmacognosist. Khadar does not have any appointments scheduled with Dr. Bradshaw at this time. Dr. Bradshaw: Does Khadar need a follow up scheduled at some point? Thanks AGGIE Jimenez Ariana E, RN 06/05/2024 11:21 AM Signed No follow up needed at this time per Dr. Bradshaw. Rojelio Guajardo RN Allergies As of Date: 05/21/2024 (No Known Allergies) Date Reviewed: 04/16/2024 Reviewed by: Edyta Gilliland, AGGIE - Fully Assessed Reason for Visit: Appointment [186] Prescriptions as of 06/05/2024 - amLODIPine (NORVASC) 10 mg tablet Take [...] once daily. Problem List As Of Date 05/21/2024 Noted Resolved Atrial fibrillation (HCC) [I48.91] 05/28/2014 Hypertension [I10] 05/28/2014 Hyperlipidemia [E78.5] 05/28/2014 Malignant neoplasm of prostate (HCC) [C61] 07/01/2014 History of prostate cancer [Z85.46] 06/09/2015 Encounter Status:Closed by ROJELIO GUAJARDO on 06/05/24 Normal [facility] Documentationon 05-21-2024 Documentation [id number] Khadar Dawn 1940 [facility] Provider Department Center 05/21/2024 [id number] DIXON RAE [place] Family History Problem Relation Age of Onset Other Father Coronary artery disease Brother Other Brother Family Status - Relation Status Age at Father Brother Normal [facility] Urine Cultureon 05-14-2024 Bacteria identified Cx Nom (U) 20,000 colonies/ml mixed bacterial skin contaminants 2 Days PERFORMED BY: [place] [address] PATHOLOGIST LAW EXAMINER CARA GARCIA M.D. Normal [facility] Comment on above: Performed By: #### C UU #### [address] [place] 05-08-2024 CNPN Telephone (PageStitchA) LÓPEZKHADAR ([id number]) 1940 M Date Time Provider Department 05/08/24 Yanelis BRADSHAW During your visit today, we recorded the following information about you: Edyta Gilliland, AGGIE 05/08/2024 1:15 PM Signed Message Received: Today Yanelis Bradshaw MD [facility] Nurse [place] Can we verify pt seeing medonc? Previous [...] MRI brain he is having done at [facility]. Edyta Gilliland RN Allergies As of Date: 05/08/2024 (No Known Allergies) Date Reviewed: 04/16/2024 Reviewed by: Edyta Gilliland, RN - Fully Assessed Reason for Visit: Sky Line Yarder - Other [3602] Future Appointment [256] Prescriptions [...] Status:Closed by EDYTA GILLILAND on 05/19/24 Normal [facility] Office Visiton 05-05-2024 Follow-up visit [id number] Khadar Dawn 1940 Date Provider Department Center 05/05/2024 [id number] DIXON [facility] Family History Problem Relation Age of Onset Other Father Coronary artery disease Brother Other Brother Family Status - Relation Status Age at Father Brother Level of Service:08005 [place] OFFICE/OUTPATIENT ESTABLISHED MOD [facility] 30 MIN Reason for Visit and Comments: Atrial Fibrillation [80] - Denies bleeding on Xarelto. He is now on Toprol XL 50mg instead of Lopresser 75mg bid. Congestive Heart Failure [127] - He was admitted to [facility] last month for CHF. Normal [facility] GLUCOSE, BLOOD (POC)on 04-30 Glucose [Mass/Vol] 95 mg/dL 74 - 99 mg/dL [facility] Comment on above: Location:[facility], [address] [place] [address] , [place], [place], [address] The Accu-Chek Inform II glucose meter has [...] blood gas instrument) in the above situations. [facility] NM PET/CT SKULL-THIGH SUBQon 04-30-2024 MT PET/CT SKULL-THIGH SUBQ * * *Final Report* * * DATE OF EXAM: Apr 30 2024 9:22AM NRN 0063 - MT PET/CT SKULL-THIGH SUBQ / PROCEDURE REASON: Malignant [...] * Uptake Time: 53 minutes * Radiopharmaceutical: [id number] (FDG) COMPARISON: No previous FDG PET/CT available CORRELATION: 04/09/2024 [facility] chest CT RESULT: REFERENCES: FDG uptake is [...] any questions regarding this interpretation, please call [phone]. If you are unable to reach us at the number above, please feel free to contact [facility] eRadiology at [phone]. [id number] Normal [facility]RAD[facility]SA[facility] KHADAR DAWN ([id number]) 1940 M Date Time Provider Department 04/25/24 [...] patient on Sunday when he is in [place]. Shazia Rooney 04/25/2024 9:44 AM Signed First PET opening is Sunday. Please advise if this is ok? Shelly Rooneydi 04/25/2024 10:35 AM Signed I apologize, per Radiology I can't use this one. I have to give him the next available which is 05/06 or 05/09. ToribioShazia 04/25/2024 12:57 PM Signed Khadar is scheduled [...] minutes ago (3:59 PM) Send report to [facility]. I think he will be starting [...] lung (HCC) [C34.90] Order(s):NM PET/CT SKULL-THIGH SUBSEQUENT [[id number]] Order #: [id number] FUTURE Prescriptions as of 05/05/2024 - amLODIPine [...] Encounter Status:Closed by Yanelis BRADSHAW on [facility]/25/24 [facility] (RADTSA ) KHADAR DAWN ([id number]) 1940 M Date Time Provider Department 04/23/24 8:30 AM Yanelis BRADSHAW During your visit today, we recorded the following information about you: Yanelis Bradshaw MD 04/23/2024 9:36 AM Signed sim Referring Provider: Yanelis BRADSHAW [[id number]] Allergies As of Date: 04/23/2024 (No Known [...] Encounter Status:Closed by Yanelis BRADSHAW on 04/23/24 [facility] CNOV Office Visit (RADTSA ) KHADAR DAWN ([id number]) 1940 M Date Time Provider Department 04/23/24 8:00 AM Yanelis BRADSHAW RADTSA During your visit today, we recorded the following information about you: Referring Provider: Yanelis BRADSHAW [[id number]] Allergies As of Date: 04/23/2024 (No Known Allergies) Date Reviewed: 04/16/2024 Reviewed by: Edyta Gilliland, RN - Fully Assessed Reason for Visit: Simulation Request Form [0413] Primary Visit Diagnosis:Malignant neoplasm of lung, unspecified laterality, unspecified part of lung (HCC) [C34.90] Order(s):RADIATION TREATMENT PER RADIATION ONCOLOGIST PLAN [[id number]] Order #: [id number]: 1 PT ED CANCER [[id number]] Order #: [id number]: 1 CT SIM PLANNING RADIATION ONCOLOGY [[id number]] Order #: [id number] Prescriptions as of 04/23/2024 - amLODIPine (NORVASC) [...] by Yanelis BRADSHAW on 04/23/24 [facility] 04-23-2024 [facility] Telephone (PageStitchA) KHADAR DAWN ([id number]) 1940 M Date Time Provider Department 04/23/24 [...] RN - Fully Assessed Reason for Visit: Sky Line Yarder - Other [7366] Prescriptions as of 04/23/2024 - amLODIPine (NORVASC) [...] Status:Closed by EDYTA GILLILAND on 04/23/24 [facility] Telephone (PageStitchA) KHADAR DAWN ([id number]) 1940 M Date Time Provider Department 04/23/24 Yanelis BRADSHAW During your visit today, we recorded the following information about you: Edyta Gilliland, AGGIE 04/23/2024 10:22 AM Signed Call placed to [facility] [place] ([phone]). Spoke to Kristi to arrange weekly pacemaker checks. Kristi called rep from [employer] and stated he has a single chamber [...] Assessed Reason for Visit: Future Appointment [256] Sky Line Yarder - Other [3603] Cmt: Pacemaker Checks During [...] Encounter Status:Closed by EDYTA GILLILAND on [facility]/24/24 [facility]HEMASA[facility] KHADAR DAWN ([id number]) 1940 M Date Time Provider Department 04/22/24 Ynaelis BRADSHAW JAELYN During your visit today, we recorded the following information about you: Krystle Faye 04/22/2024 8:58 AM Signed Received call from Hui at [facility] radiology asking for images from last Chest XR be pushed over. Patient is there for thoracentesis and the radiologist is not seeing any fluid. I let her know his last XR chest was done at [facility], and the one before that was at [place]. She will call there for images. She [...] Status:Closed by KRYSTLE FAYE on 04/23/24 Normal [facility] US guide or thoracentesison 04-22-2024 US guide or thoracentesis [facility] [place] [address] Ultrasound Report Signed Patient: Khadar Dawn MR#: [id number] : 1940 Acct:[id number] Age/Sex: 84 / M ADM Date: 04/22/24 Loc: Room: Type: [facility] Attending Dr: Comfort Bradshaw MD Ordering Provider: Yanelis Bradshaw MD Date of Service: 04/22/24 US/US guide or thoracentesis: THORA Copies to: Yanelis Bradshaw MD ULTRASOUND-GUIDED THORACENTESIS INDICATION: REPORTED EFFUSION COMPARISON: NONE US/US guide or thoracentesis FINDINGS/IMPRESSION: ULTRASOUND LEFT CHEST WALL DEMONSTRATE NO FLUID COLLECTION. PROCEDURE NOT PERFORMED. Impression dictated by: Hal Mojica M.D.04/22/2024 2:57 PM Dictation Location: [place] [address] Tech: Javier Vidal Transcribed By: QING 04/22/241456 Dictated By: Hal Mjoica MD 04/22/241455 Signed By: 04/22/241456 Normal [facility] Candelario 04-21-2024 [facility] Telephone (NCCAP) KHADAR DAWN ([id number]) 1940 M Date Time Provider Department 04/21/24 Yanelis BRADSHAW [facility] During your visit today, we recorded the following information about you: Romi Faust 04/21/2024 8:35 AM Signed Erich from Dr. Rodriguez's office called asking for past progress notes for the patient. He stated that the patient was referred and they have not received any information. Please fax records to [phone]. Krystle Faye 04/21/2024 3:36 PM Signed Consult [...] prostate cancer [Z85.46] 06/09/2015 Encounter Status:Closed by RKYSTLE FAYE on 04/21/24 [facility] CNOVon 04-16-2024 CNOV Office Visit (RADTSA ) KHADAR DAWN ([id number]) 1940 M Date Time Provider Department 04/16/24 [...] Laterality D (more content not included)... Normal [facility] CNPNon 04-16-2024 CNPN Telephone (RADTSA) KHADAR DAWN ([id number]) 1940 M Date Time Provider Department 04/16/24 Yanelis BRADSHAW During your visit today, we recorded the following information about you: Rojelio Guajardo RN 04/16/2024 2:37 PM Signed PSS/RT: Please schedule [facility] IR for thoracentis return for sim after treating lung no contrast 15 treatments, no concurrent chemo Need presim consent Nurse ed today Consult with Dr. Ponce to establish care with local pharmacognosist. pt does not want to travel to current pharmacognosist in [place]. Thanks AGGIE Jimenez Jodi 04/17/2024 9:08 AM Signed Waiting on orders to be signed to fax to IR [facility] Rojelio Guajardo RN 04/18/2024 9:54 AM Signed Order is signed. Please arrange thoracentesis appt lizette. Thanks AGGIE Jimenez Trisha 04/18/2024 11:26 AM Signed Everything is faxed to [facility] for Shazia Perez and I will check with [facility] daily to see when scheduled I called Dr Ponce office and got a voicemail stating they are away from their desk. I left a message asking them to return my call as I have a referral I would like to get scheduled. Will update when I hear back from them Yolanda Zaragoza 04/18/2024 11:[address] Ponce office returned my call. Asked if I would fax everything to their referral fax line. They will review and contact the patient for an appointment. All info was faxed to [phone] Will follow up to see when appt is scheduled Shazia Britton 04/18/2024 3:08 PM Signed Patient scheduled at [facility] on 04/22 at 9am. Arrive at 8am [...] 745 arrival time, no special instructions. Thanks! RT Divya(R)(T) Shazia Rooney 04/21/2024 9:21 AM Signed Spoke to patient, confirmed pre sim and arrival time 04/23 at 745am. Shazia Rooney 04/21/2024 9:38 AM Signed JACLYN Claudio could you please fax demographics and records to DR. Ponce office at [phone]. He is having a thoracentesis on 04/22. She would like records faxed and images pushed of those as well. Thanks so much Shazia Rooney 04/21/2024 2:25 PM Signed Referral was sent to [place] and [place] offices. Confirmed patient to be scheduled in [place] with Dr. Ponce on 04/23 at 3pm. I called [place] office and explained sent by mistake to [...] Order(s):BODY FLUID CELL COUNT [SQCCBF] Order #: [id number] FUTURE GLUCOSE, BODY FLUID [SQBFGLUC] Order #: [id number] FUTURE LACTATE DEHYDROGENASE, BODY FLUID [SQBFLDH] Order #: [id number] FUTURE PH BODY FLUID [SQFLPH] Order #: [id number] FUTURE AFB CULTURE AND STAIN [SQAFC] Order #: [id number] FUTURE BACTERIAL CULTURE AND GRAM STAIN, STERILE BODY FLUID [SQBFCUL] Order #: [id number] FUTURE CYTOLOGY NON-TAN ROOM SUPERVISOR [NHZ0371] Order #: [id number] FUTURE Prescriptions as of 04/28/2024 - amLODIPine [...] mg by (more content not included)... Normal [facility] Candelario 04-15-2024 CNPN Telephone ([facility]) HIROKHADAR LEON ([id number]) 1940 M Date Time Provider Department 04/15/24 Yanelis BRADSHAW [facility] During your visit today, we recorded the following information about you: Romi Faust 04/15/2024 8:[address] Lane's office called requesting progress notes from the past 12 months. Please fax to [phone]. They are requesting this today as he has an appointment. Thank you Madai Krystle Goodrich 04/21/2024 2:35 PM Signed Patient does not [...] Status:Closed by KRYSTLE FAYE on 04/21/24 Normal [facility] HISTOLOGY - TISSUE EXAMon LAB AP CASE REPORT Normal [facility] Comment on above: Result Comment: Surg ical Pathology Case: [id number] Authorizing Provider: Cara Perez MD Collected: 04/09/2024 1150 Ordering Location: [facility] Main Operating Room Received: 04/09/2024 1256 Pathologist: Brit Grimes MD Specimen: Lung, Left Upper Lobe, OUMAR MASS BX Performed By: #### L [id number] #### [facility] (BEAKER) [address] [place] [address] LAB AP CLINICAL INFORMATION Order Diagnoses Normal [facility] Comment on above: Result Comment: R91. 8 - Lung mass [ICD-10-CM] J43.2 - Centrilobular emphysema (CMS/HCC) [ICD-10-CM] J96.11 - Chronic hypoxic respiratory failure (CMS/HCC) [ICD-10-CM] Performed By: #### L [id number] #### [facility] ([facility]) [address] [place] [address] LAB AP DIAGNOSIS COMMENT [facility] Comment on above: Result Comment: Ther e is scant tumor in the tissue block, insufficient for further testing. Performed By: #### L [id number] #### [facility] ([facility]) [address] [place] [address] LAB AP GROSS DESCRIPTION [facility] Comment on above: Result Comment: A. L rudolph, Left Upper Lobe. Part A is received in formalin labeled Khadar López and OUMAR mass biopsy . It consists of multiple platt-red, irregular pieces of soft tissue measuring 1.0 x 0.5 x 0.2 cm in aggregate. The specimen is submitted in toto in 1 cassette. Lilliam Hitchcock, Pathologists' Budget Specialist student Herb Reynoso, Pathologists' Budget Specialist Performed By: #### L [id number] #### [facility] ([facility]) [address] [place] [address] LAB AP MICROSCOPIC DESCRIPTION Microscopic examination performed. [facility] Comment on above: Performed By: #### L [id number] #### [facility] ([facility]) [address] [place] [address] LAB AP REPORT FINAL DIAGNOSIS NARRATIVE [facility] Comment on above: Result Comment: A. L rudolph, left upper lobe, biopsy: - Sclerotic lung and blood clot with rare strips of malignant glandular cells. - See concurrent cytology report, [id number]. Performed By: #### L [id number] #### [facility] ([facility]) [address] [place] [address] NON-TAN ROOM SUPERVISOR CYTOLOGY - CELLULAR EXAMon 04-09-2024 LAB AP CASE REPORT [facility] Comment on above: Result Comment: Non- gynecologic Cytology Case: [id number] Authorizing Provider: Cara Perez MD Collected: 04/09/2024 1139 Ordering Location: [facility] Main Operating Room Received: 04/09/2024 1215 Pathologist: Aaron Shea MD Specimens: A) - Lung, Left Upper Lobe, OUMAR MASS B) - Bronchial washing, left upper lobe, OUMAR BAL C) - Lymph Node Station 7, LN STATION 7 FNA Performed By: #### L [id number] ####[facility] [place] [address] LAB AP CLINICAL INFORMATION PET-avid left apical lung mass (3.4 cm) with multiple, smaller left upper lobe lung nodules, mediastinal adenopathy, former smoker Normal [facility] Comment on above: Performed By: #### L [id number] ####[facility] ([facility])[address] [place] [address] LAB AP DIAGNOSIS COMMENT Normal [facility] Comment on above: Result Comment: See also concurrent surgical case, [id number]. There is scant tumor present in the cell block of part A. Performed By: #### L [id number] ####[facility] (BEAKER)[address] [place] [address] LAB AP GROSS DESCRIPTION Normal [facility] Comment on above: Result Comment: A. 4 air-dried slides, 3 alcohol-fixed slides, 30 mL CytoLyt with hazy red fluid and clots B. 17 mL cloudy, red fluid with clots C. 30 mL CytoLyt with clear, pale pink fluid with red/white flecks Performed By: #### L [id number] ####[facility] (BEAKER)[address] [place] [address] LAB AP INTRAOPERATIVE CONSULTATION Normal [facility] Comment on above: Result Comment: A. [...] material submitted.* Performed By: #### L [id number] ####[facility] ([facility])[address] [place] [address] LAB AP MICROSCOPIC DESCRIPTION [facility] Comment on above: Result Comment: A. S [...] bronchial cells. Performed By: #### L [id number] ####[facility] ([facility])[address] [place] [address] LAB AP REPORT FINAL DIAGNOSIS NARRATIVE [facility] Comment on above: Result Comment: A. 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 Lung, left upper lobe, bronchial washing: - Adenocarcinoma C. Lymph Node, Station 7, EBUS-guided fine needle aspiration: - Negative for metastatic malignancy. - Cellular evidence of a lymph node. - Scant lymphoid component. Performed By: #### L [id number] ####[facility] ([facility])[address] [place] [address] NURSNOTEon 04-09-2024 NURSNOTE Report to Emi MARCIAL Normal [facility] POCT GLUCOSE METER UNSOLICIT ED RESULTSon 04-09-2024 Glucose [Mass/Vol] 88 mg/dL Normal 70-105 [facility] Comment on above: Order Comment: Waive d Testing in the ED is performed under the ED CLIA certificate #[id number]. Result Comment: ltol les Performed By: #### L [id number] #### [facility] ([facility]) [address] [place] [address] Prep for Procedureon 025 Prep for Procedure [id number] Khadar Dawn 1940 M Date Provider Department Center 04/09/2024 CARA GONZALES [facility] GIS [place]I Family History Problem Relation Age of Onset Other Father Coronary artery disease Brother Other Brother Family Status - Relation Status Age at Father Brother [facility] Abstracton 03-31-2024 Abstract [id number] HirofionaKhadar Berry 1940 M Date Provider Department Center 03/31/2024 CARA GONZALES [facility] ONC DCC Family History Problem Relation Age of Onset Other Father Coronary artery disease Brother Other Brother Family Status - Relation Status Age at Father Brother [facility] 36on 03-25-2024 36 Per patient's , Dr. Perez's office is requesting cardiac clearance prior to lung biopsy. I'm assuming they'd like him to hold Xarelto but it doesn't say in Dr. Perez's office note. You saw him in clinic 2 weeks ago. Please advise. Thanks. [facility] 29on 03-20-2024 29 Addended by: CARA PEREZ on: 03/27/2024 01:27 PM Modules accepted: Orders [facility] HPon 03-20-2024 HP --- Attestation signed by Cara Perez MD at 03/21/2024 11:55 AM I have seen and examined the patient. I reviewed the resident/fellow note and I agree with the findings and plan. Cara Perez MD Interventional Pulmonary Medicine Pulmonary and Critical Care Medicine [facility] Visit Note Patient: Khadar Dawn Age: 84 y.o. : 1940 Account No.: [id number] Referring physician: Dr. Delacruz Chief complaint: Lung [...] CARDIOVASCULAR: Re (more content not included)... Normal [facility] Office Visiton 03-20-2024 Follow-up visit [id number] Khadar Dawn Berry 1940 M Date Provider Department Center 03/20/2024 383-CARA PEREZ [facility] ONC DCC Family History Problem Relation Age of Onset Other Father Coronary artery disease Brother Other Brother Family Status - Relation Status Age at Father Brother Level of Service:09075 [place] OFFICE/OUTPATIENT NEW MODERATE MDM 45 MINUTES (GC) Reason for Visit and Comments: New Patient [632] - Lung mass; abnormal PET SCAN, needs biopsy Normal [facility] 36on 03-10-2024 36 Regarding lab result s from 02/25/2024: MD Kristi Horvath MA Good lipids and BMP. Continue current medications. Recheck lipids and AST ALT in 6 months Patient has follow up today with Dr. Dixon. Normal [facility] Office Visiton 03-10-2024 Follow-up visit [id number] KavyakatiefionaKhadar Smart 1940 M Date Provider Department Center 03/10/2024 [id number]-GZRXPOCHRIS DIXON [facility] Family History Problem Relation Age of Onset Other Father Coronary artery disease Brother Other Brother Family Status - Relation Status Age at Father Brother Level of Service:48771 [place] OFFICE/OUTPATIENT NEW MODERATE MDM 45 MINUTES Reason for Visit and Comments: Wound Check [141519] - S/p PPM implant on 03/03/[address] Rivas. Says he was not given RX for antibiotic. Normal [facility] CBCon 03-03-2024 Erythrocyte distribution width (RBC) [Ratio] 17.1 % High 11.5-15.0 [facility] Comment on above: Performed By: #### L [id number] ####[facility] (BEAKER)[address] [place] [address] ERYTHROCYTE MEAN CORPUSCULAR HEMOGLOBIN CONCENTRATION (G/DL) BY AUTOMATED 31.8 g/dL Low 32.0-35.0 [facility] Comment on above: Performed By: #### L [id number] ####[facility] [place] [place] [address] Hematocrit (Bld) [Volume fraction] 47.8 % Normal 39.0-55.0 [facility] Comment on above: Performed By: #### L [id number] ####[facility] ([facility])[address] [place] [address] Hemoglobin (Bld) [Mass/Vol] 15.2 g/dL Normal 13.0-17.0 [facility] Comment on above: Performed By: #### L [id number] ####[facility] ([facility])[address] [place] [address] MCH (RBC) [Entitic mass] 29.5 pg Normal 27.0-33.0 [facility] Comment on above: Performed By: #### L [id number] ####[facility] ([facility])[address] [place] [place] [address] MCV (RBC) [Entitic vol] 92.6 fL Normal 82.0-98.0 [facility] Comment on above: Performed By: #### L [id number] ####[facility] ([facility])[address] [place] [place] [address] PLATELETS (10*3/UL) IN BLOOD AUTOMATED COUNT 257 10*3/uL Normal 150-400 [facility] Comment on above: Performed By: #### L [id number] ####[facility] ([facility])[address] [place] [place] [place] [address] RBC (Bld) [#/Vol] 5.16 10*6/uL Normal 4.20-5.70 [facility] Comment on above: Performed By: #### L [id number] ####[facility] [address] WBC (Bld) [#/Vol] 13.41 10*3/uL High 4.00-10.60 [facility] Comment on above: Performed By: #### L [id number] ####[facility] ([facility])[address] [place] [address] [facility] 03-03-2024 [facility] Cardiology - [facility] Clinic HPI Khadar Dawn is a 84 y.o. year old male patient being seen for Hospital Follow-up (He was admitted to [facility] last month for CHF. Say he's [...] On Coreg, sylvie (more content not included)... [facility] NURSNOTEon 03-03-2024 NURSNOTE RN educated pt on [...] off of unit with all of belongings. [facility] NURSNOTE CHG wipes and betadi ne nasal swabs completed. [facility] 36on 02-25-2024 36 Patient was informed of message from Dr Rivas. Patient was not pleased with having a PPM put in and will need to think about that. Catherine BRADLEY [facility] [address] 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 Order placed. Waiting for patient to call me back so I can inform him. He had lipids drawn this morning, and I was able to add on BMP. [facility] Orders Onlyon 02-25-2024 Orders Only [id number] Khadar Dawn 1940 M Date Provider Department Center 02/25/2024 [facility] Family History Problem Relation Age of Onset Other Father Coronary artery disease Brother Other Brother Family Status - Relation Status Age at Father Brother [facility] Documentationon 02-22-2024 Documentation [id number] Khadar Dawn 1940 M Date Provider Department Center 02/22/2024 82246-GABGNCCHRIS REY RAE [place] Family History Problem Relation Age of Onset Other Father Coronary artery disease Brother Other Brother Family Status - Relation Status Age at Father Brother Normal [facility] Office Visiton 02-08-2024 Follow-up visit [id number] Khadar Dawn Berry 1940 M Date Provider Department Center 02/08/2024 05231-BFLBJVCHRIS REY RAE [place] Family History Problem Relation Age of Onset Other Father Coronary artery disease Brother Other Brother Family Status - Relation Status Age at Father Brother Level of Service:01907 [place] OFFICE/OUTPATIENT ESTABLISHED MOD [facility] 30 MIN Reason for Visit and Comments: Hospital Follow-up [832] - He was admitted to [facility] last month for CHF. Say he's feeling much better s/p discharge. Coronary Artery Disease [187] - Denies chest pain. Congestive Heart Failure [127] - Denies SOB, and LE edema resolves by morning. Using O2 at nighttime. Atrial Fibrillation [80] - Denies palpitations, lightheadedness/syncope , and bleeding on Xarelto. Hypertension [025467] Hyperlipidemia [182] Normal [facility] Optical coherence tomography study reporton 11-27-2023 [facility] Radiology Study observation (narrative) [facility] Perimetry studyon 11-27-2023 [facility] Radiology Study observation (narrative) [facility] Urology Office/Clinic Noteon 10-19-2023 Urology Office/Clinic Note Urology Office/Clinic Note Chief Complaint 1 year follow up HPI Staff 1 yr w/ PSA. Dx: BPH with obstruction, hx of prostate cancer *Brachytherapy 2014*, nocturia, renal cyst, gross hematuria. *No urological meds NEG FISH/cytol 10/13/22. S/p Cysto 10/17/22. TAYLA done 10/19/22 at [facility] - results given over the phone. [...] hematuria (R31.0: Gross hematuria) Pt presented to [facility] ER 09/23/22 with gross hematuria. Only for one day. Neg urine culture. S/p cysto 10/17/22 ~neg for b.t. or lesions. Typical telangiectatic radiation changes. FISH/cytol neg. Renal US 10/19/22 [facility] - Small bladder diverticulum. UA today shows trace-intact blood. Denies recurrence of gross hematuria. -Call if gross blood recurs 4. Renal cyst (N28.1: Cyst of kidney, acquired) CT AP w/o con 09/23/22 - several adjacent cysts inferior of the Rt kidney measuring up to 8.5 cm. Renal US 10/19/22 [facility] - bilateral renal cysts favoring benign etiology, also seen on prior MRI and CT studies. -No follow up required Follow-up With When Contact Information ALFIE WISE, Yousuf Barroso, L [address] [place] [phone]- Additional Instructions: 1 year w/ PSA Patient Education Benign Prostatic Hyperplasia I, Lianet Massey, personally scribed for Dr. Judge on 10/19/2023 [...] Oral Allergie (more content not included)... Normal [facility] Comment on above: Result Comment: Elec tronically Signed By: Yousuf JUDGE MD\.br\Date and Time Signed: 10/19/23 11:20 EDT\.br\Electronically Co-Signed By: Lianet Massey.br\Date and Time Co-Signed: 10/19/23 11:19 EDT Office Visiton 09-25-2023 Follow-up visit [id number] Khadar Dawn 1940 M Date Provider Department Center 09/25/2023 JACKY ESQUIVEL [facility] Family History Problem Relation Age of Onset Other Father Coronary artery disease Brother Other Brother Family Status - Relation Status Age at Father Brother Level of Service:91278 [place] OFFICE/OUTPATIENT ESTABLISHED LOW [facility] 20 MIN Reason for Visit and Comments: Coronary Artery Disease [187] Atrial Fibrillation [80] Normal [facility] CBC AUTO DIFFon 04-20-2022 BASO # 0.0 103/ul Normal 0.0-0.1 [facility] Comment on above: Performed By: #### C BC #### [facility] [address] [place] [address] [address] Nic Marie Basophils/100 WBC (Bld) 0.5 % Normal 0.2-2.0 [facility] Comment on above: Performed By: #### C BC #### [facility] [address] [place] [address] [address] Nic Marie EO # 0.7 103/ul Normal 0.0-0.7 [facility] Comment on above: Performed By: #### C BC #### [facility] [address] [place] [address] [address] Nic Marie Eosinophils/100 WBC (Bld) 8.8 % Critically high 0.9-7.0 [facility] Comment on above: Performed By: #### C BC #### [facility] [address] [place] [address] Dr. Nic Marie Erythrocyte distribution width (RBC) [Ratio] 18.0 % Critically high 11.0-15.0 [facility] Comment on above: Performed By: #### C BC #### [facility] [address] [place] [address] Dr. Nic Marie Hematocrit (Bld) [Volume fraction] 44.3 % Normal 42.0-54.0 [facility] Comment on above: Performed By: #### C BC #### [facility] [address] [place] [address] Dr. Nic Marie Hemoglobin (Bld) [Mass/Vol] 13.6 g/dL Critically low 14.0-18.0 [facility] Comment on above: Performed By: #### C BC #### [facility] [address] [place] [address] Dr. Nic Marie IG # 0.05 10e3/ul Critically high 0.00-0.03 [facility] Comment on above: Performed By: #### C BC #### [facility] [address] [place] [address] Dr. Nic Marie IG % 0.6 % Critically high 0.0-0.5 [facility] Comment on above: Performed By: #### C BC #### [facility] [address] [place] [address] Dr. Nic Marie LYMPH # 0.8 103/ul Critically low 1.2-3.8 [facility] Comment on above: Performed By: #### C BC #### [facility] [address] [place] [address] Dr. Nic Marie Lymphocytes/100 WBC (Bld) 10.7 % Critically low 20.5-60.0 [facility] Comment on above: Performed By: #### C BC #### [facility] [address] [place] [address] Dr. Nic Marie MANUAL DIFF REQ NO Normal [facility] Comment on above: Performed By: #### C BC #### [facility] [address] [place] [address] Dr. Nic Marie MCH (RBC) [Entitic mass] 24.9 pg Critically low 25.9-34.0 [facility] Comment on above: Performed By: #### C BC #### [facility] [address] [place] [address] Dr. Nic Marie MCHC (RBC) [Mass/Vol] 30.7 g/dL Normal 29.9-35.2 [facility] Comment on above: Performed By: #### C BC #### [facility] [address] [place] [address] Dr. Nic Marie MCV (RBC) [Entitic vol] 81.0 fL Normal 80.0-94.0 [facility] Comment on above: Performed By: #### C BC #### [facility] [address] [place] [address] Dr. Nic Marie MONO # 0.9 103/ul Critically high 0.3-0.8 [facility] Comment on above: Performed By: #### C BC #### [facility] [address] [place] [address] Dr. Nic Marie Monocytes/100 WBC (Bld) 11.1 % Normal 1.7-12.0 [facility] Comment on above: Performed By: #### C BC #### [facility] [address] [place] [address] Dr. Nic Marie NEUT # 5.3 103/ul Normal 1.4-6.5 [facility] Comment on above: Performed By: #### C BC #### [facility] [address] [place] [address] Dr. Nic Marie Neutrophils/100 WBC (Bld) 68.3 % Normal 43.0-75.0 [facility] Comment on above: Performed By: #### C BC #### [facility] [address] [place] [address] Dr. Nic Marie Platelet mean volume (Bld) [Entitic vol] 10.0 fL Normal 9.5-13.5 [facility] Comment on above: Performed By: #### C BC #### [facility] [address] [address] [address] Nic Marie PLT 203 103/ul Normal 150-450 [facility] Comment on above: Performed By: #### C BC #### [facility] [address] [place] [address] Dr. Nic Marie RBC 5.47 106/ul Normal 4.70-6.10 [facility] Comment on above: Performed By: #### C BC #### [facility] [address] [place] [address] Dr. Nic Marie WBC 7.8 103/ul Normal 4.0-11.0 [facility] Comment on above: Performed By: #### C BC #### [facility] [address] [place] [address] Dr. Nic Marie LIPID PROFILEon 04-20-2022 CHOL-HDL RATIO NORM SEE BELOW Normal [facility] Comment on above: Result Comment: 3.3 - 4.4 LOW RISK 4.4 - 7.1 AVERAGE RISK 7.1 - 11.0 MODERATE RISK >11.0 HIGH RISK Performed By: #### C MP, LIPID #### [facility] [address] [place] [address] Dr. Nic Marie Cholesterol [Mass/Vol] 108 mg/dL Normal <=200 [facility] Comment on above: Performed By: #### C MP, LIPID #### [facility] [address] [place] [address] Dr. Nic Marie Cholesterol in HDL [Mass/Vol] 36 mg/dL Critically low 40-60 [facility] Comment on above: Performed By: #### C MP, LIPID #### [facility] [address] [place] [address] Dr. Nic Marie Cholesterol in LDL [Mass/Vol] 54.2 mg/dL Normal [facility] Comment on above: Performed By: #### C MP, LIPID #### [facility] [address] [place] [address] Dr. Nic Marie Cholesterol.total/C holesterol in HDL [Mass ratio] 3.0 {ratio} Normal [facility] Comment on above: Performed By: #### C MP, LIPID #### [facility] [address] [place] [address] Dr. Nic Marie HDL NORMAL > or = 60 mg/dl - LO W CARDIOVASCULAR RISK <40 mg/dl - HIGH CARDIOVASCULAR RISK Normal [facility] Comment on above: Performed By: #### C MP, LIPID #### [facility] [address] [place] [address] Dr. Nic Marie LDL CALC NORMAL SEE BELOW Normal [facility] Comment on above: Result Comment: <100 mg/dl OPTIMAL 100 - 129 mg/dl NEAR OR ABOVE OPTIMAL 130 - 159 mg/dl BORDERLINE HIGH 160 - 189 mg/dl HIGH >190 mg/dl VERY HIGH Performed By: #### C MP, LIPID #### [facility] [address] [place] [address] Dr. Nic Marie Triglyceride [Mass/Vol] 89 mg/dL Normal <=150 [facility] Comment on above: Performed By: #### C MP, LIPID #### [facility] [address] [address] [address] Nic Marie VLDL CALC 17.8 mg/dL Normal [facility] Comment on above: Performed By: #### C MP, LIPID #### [facility] [address] [place] [address] Dr. Nic Marie PROF 14(COMP METB)on 023 Albumin [Mass/Vol] 3.7 g/dL Normal 3.4-5.0 [facility] Comment on above: Performed By: #### C MP, LIPID #### [facility] [address] [place] [address] Dr. Nic Marie Albumin/Globulin [Mass ratio] 1.0 {ratio} Normal [facility] Comment on above: Performed By: #### C MP, LIPID #### [facility] [address] [place] [address] Dr. Nic Marie ALP [Catalytic activity/Vol] 59 U/L Normal 46-116 [facility] Comment on above: Performed By: #### C MP, LIPID #### [facility] [address] [place] [address] Dr. Nic Marie ALT [Catalytic activity/Vol] 28 U/L Normal 16-63 [facility] Comment on above: Performed By: #### C MP, LIPID #### [facility] [address] [place] [address] Dr. Nic Marie Anion gap [Moles/Vol] 12.1 mmol/L Normal [facility] Comment on above: Performed By: #### C MP, LIPID #### [facility] [address] [place] [address] Dr. Nic Marie AST [Catalytic activity/Vol] 18 U/L Normal 15-37 [facility] Comment on above: Performed By: #### C MP, LIPID #### [facility] [address] [place] [address] Dr. Nic Marie Bilirubin [Mass/Vol] 0.6 mg/dL Normal 0.2-1.0 [facility] Comment on above: Performed By: #### C MP, LIPID #### [facility] [address] [place] [address] Dr. Nic Marie Calcium [Mass/Vol] 9.6 mg/dL Normal 8.5-10.1 [facility] Comment on above: Performed By: #### C MP, LIPID #### [facility] [address] [place] [address] Dr. Nic Marie Chloride [Moles/Vol] 104 mmol/L Normal 98-107 [facility] Comment on above: Performed By: #### C MP, LIPID #### [facility] [address] [place] [address] Dr. Nic Marie CO2 [Moles/Vol] 30.3 mmol/L Normal 21.0-32.0 [facility] Comment on above: Performed By: #### C MP, LIPID #### [facility] [address] [place] [address] Dr. Nic Marie Creatinine [Mass/Vol] 0.99 mg/dL Normal 0.70-1.30 [facility] Comment on above: Performed By: #### C MP, LIPID #### [facility] [address] [place] [address] Dr. Nic Marie EGFR-AF BURMESE >60 Normal >=60 [facility] Comment on above: Performed By: #### C MP, LIPID #### [facility] [address] [address] [address] Nic Marie EGFR-NON AF BURMESE >60 Normal >=60 [facility] Comment on above: Performed By: #### C MP, LIPID #### [facility] [address] [address] [address] Nic Marie Globulin (S) [Mass/Vol] 3.6 g/dL Normal [facility] Comment on above: Performed By: #### C MP, LIPID #### [facility] [address] [address] [address] Nic Marie Glucose [Mass/Vol] 114 mg/dL Critically high 74-106 [facility] Comment on above: Performed By: #### C MP, LIPID #### [facility] [address] [address] [address] Nic Marie Potassium [Moles/Vol] 4.4 mmol/L Normal 3.5-5.1 [facility] Comment on above: Performed By: #### C MP, LIPID #### [facility] [address] [place] [address] Dr. Nic Marie Protein [Mass/Vol] 7.3 g/dL Normal 6.4-8.2 [facility] Comment on above: Performed By: #### C MP, LIPID #### [facility] [address] [place] [address] Dr. Nic Marie Sodium [Moles/Vol] 142 mmol/L Normal 136-145 [facility] Comment on above: Performed By: #### C MP, LIPID #### [facility] [address] [address] [address] Nic Marie Urea nitrogen [Mass/Vol] 23.0 mg/dL Critically high 7.0-18.0 [facility] Comment on above: Performed By: #### C MP, LIPID #### [facility] [address] [address] [address] Nic Marie Urea nitrogen/Creatinine [Mass ratio] 23.2 mg/mg Normal [facility] Comment on above: Performed By: #### C MP, LIPID #### [facility] [address] [place] [address] Dr. Nic Marie PROF CHEM 8 (BAS METB)on Anion gap [Moles/Vol] 13.0 mmol/L Normal [facility] Comment on above: Performed By: #### P SAD #### [facility] [address] [address] [address] Nic Marie Calcium [Mass/Vol] 9.0 mg/dL Normal 8.5-10.1 [facility] Comment on above: Performed By: #### P SAD #### [facility] [address] [place] [address] Dr. Nic Marie Chloride [Moles/Vol] 100 mmol/L Normal 98-107 [facility] Comment on above: Performed By: #### P SAD #### [facility] [address] [place] [address] Dr. Nic Marie CO2 [Moles/Vol] 27.2 mmol/L Normal 21.0-32.0 [facility] Comment on above: Performed By: #### P SAD #### [facility] [address] [place] [address] Dr. Nic Marie Creatinine [Mass/Vol] 1.18 mg/dL Normal 0.70-1.30 [facility] Comment on above: Performed By: #### P SAD #### [facility] [address] [place] [address] Dr. Nic Marie EGFR-AF BURMESE >60 Normal >=60 [facility] Comment on above: Performed By: #### P SAD #### [facility] [address] [place] [address] Dr. Nic Marie EGFR-NON AF BURMESE =60 Normal >=60 [facility] Comment on above: Performed By: #### P SAD #### [facility] [address] [place] [address] Dr. Nic Marie Glucose [Mass/Vol] 238 mg/dL Critically high 74-[address] [facility] Comment on above: Performed By: #### P SAD #### [facility] [address] [address] [address] Nic Marie Potassium [Moles/Vol] 4.2 mmol/L Normal 3.5-5.1 [facility] Comment on above: Performed By: #### P SAD #### [facility] [address] [address] [address] Nic Marie Sodium [Moles/Vol] 136 mmol/L Normal 136-145 [facility] Comment on above: Performed By: #### P SAD #### [facility] [address] [address] [address] Nic Marie Urea nitrogen [Mass/Vol] 30.0 mg/dL Critically high 7.0-18.0 [facility] Comment on above: Performed By: #### P SAD #### [facility] [address] [place] [address] Dr. Nic Marie Urea nitrogen/Creatinine [Mass ratio] 25.4 mg/mg Normal [facility] Comment on above: Performed By: #### P SAD #### [facility] [address] [place] [address] Dr. Nic Maire CBC W MANUAL DIFFon 05-05-19 22 ANISOCYTOSIS SLIGHT Normal [facility] Comment on above: Performed By: #### C BCMAN #### [facility] [address] [place] [address] Dr. Nic Marie ATYPICAL LYMPH # Normal [facility] Comment on above: Performed By: #### C BCMAN #### [facility] [address] [place] [address] Dr. Nic Marie ATYPICAL LYMPH % Normal [facility] Comment on above: Performed By: #### C BCMAN #### [facility] [address] [place] [address] Dr. Nic Marie BAND # Normal 0.0-0.3 [facility] Comment on above: Performed By: #### C BCMAN #### [facility] [address] [place] [address] Dr. Nic Marie BAND % Normal 0-5 [facility] Comment on above: Performed By: #### C BCMAN #### [facility] [address] [address] [address] Nic Marie BASOM # 0.15 103/ul Critically high 0.00-0.10 [facility] Comment on above: Performed By: #### C BCMAN #### [facility] [address] [address] [address] Nic Marie BASOM % 1.0 % Normal 0.2-2.0 [facility] Comment on above: Performed By: #### C BCMAN #### [facility] [address] [place] [address] Dr. Nic Marie BLAST # Normal [facility] Comment on above: Performed By: #### C BCSALINA #### [facility] [address] [place] [address] Dr. Nic Marie BLAST % Normal [facility] Comment on above: Performed By: #### C BCSALINA #### [facility] [address] [place] [address] Dr. Nic Marie CORRECTED WBC Normal 4.0-11.0 [facility] Comment on above: Performed By: #### C BCSALINA #### [facility] [address] [place] [address] Dr. Nic Marie EOS # 0.73 103/ul Critically high 0.00-0.70 [facility] Comment on above: Performed By: #### C BCSALINA #### [facility] [address] [place] [address] Dr. Nic Marie EOS% 5.0 % Normal 0.9-7.0 [facility] Comment on above: Performed By: #### C DAMIAN #### [facility] [address] [place] [address] Dr. Nic Marie HCT 38.1 % Critically low 42.0-54.0 [facility] Comment on above: Performed By: #### C BCSALINA #### [facility] [address] [place] [address] Dr. Nic Marie HGB 10.4 g/dl Critically low 14.0-18.0 [facility] Comment on above: Performed By: #### C BCMAN #### [facility] [address] [address] [address] Nic Marie HYPOCHROMASIA SLIGHT Normal [facility] Comment on above: Performed By: #### C BCMAN #### [facility] [address] [address] [address] Nic Marie LYMPHM # 0.58 103/ul Critically low 1.20-3.80 [facility] Comment on above: Performed By: #### C BCMAN #### [facility] [address] [address] [address] Nic Marie LYMPHM% 4.0 % Critically low 20.5-60.0 [facility] Comment on above: Performed By: #### C BCSALINA #### [facility] [address] [place] [address] Dr. Nic Marie MCH 19.3 pg Critically low 25.9-34.0 [facility] Comment on above: Performed By: #### C BCSALINA #### [facility] [address] [address] [address] Nic Marie MCHC 27.3 g/dl Critically low 29.9-35.2 [facility] Comment on above: Performed By: #### C BCSALINA #### [facility] [address] [address] [address] Nic Marie MCV 70.6 fL Critically low 80.0-94.0 [facility] Comment on above: Performed By: #### C BCSALINA #### [facility] [address] [address] [address] Nic Marie METAMYELOCYTE # Normal [facility] Comment on above: Performed By: #### C BCMAN #### [facility] [address] [place] [address] Dr. Nic Marie METAMYELOCYTE % Normal [facility] Comment on above: Performed By: #### C BCSALINA #### [facility] [address] [place] [address] Dr. Nic Marie MONOM# 0.58 103/ul Normal 0.30-0.80 [facility] Comment on above: Performed By: #### C DAMIAN #### [facility] [address] [place] [address] Dr. Nic Marie MONOM% 4.0 % Normal 1.7-12.0 [facility] Comment on above: Performed By: #### C DAMIAN #### [facility] [address] [place] [address] Dr. Nic Marie MPV 9.7 fL Normal 9.5-13.5 [facility] Comment on above: Performed By: #### C DAMIAN #### [facility] [address] [place] [address] Dr. Nic Marie MYELOCYTE # Normal [facility] Comment on above: Performed By: #### C DAMIAN #### [facility] [address] [place] [address] Dr. Nic Marie MYELOCYTE % Normal [facility] Comment on above: Performed By: #### C DAMIAN #### [facility] [address] [place] [address] Dr. Nic Marie NRBC Normal [facility] Comment on above: Performed By: #### C DAMIAN #### [facility] [address] [place] [address] Dr. Nic Marie PLT 347 103/ul Normal 150-450 [facility] Comment on above: Performed By: #### C DAMIAN #### [facility] [address] [place] [address] Dr. Nic Marie RBC 5.40 106/ul Normal 4.70-6.10 [facility] Comment on above: Performed By: #### C DAMIAN #### [facility] [address] [place] [address] Dr. Nic Marie RDW 22.2 % Critically high 11.0-15.0 [facility] Comment on above: Performed By: #### C DAMIAN #### [facility] [address] [place] [address] Dr. Nic Marie SEG # 12.56 103/ul Critically high 1.40-6.50 [facility] Comment on above: Performed By: #### C DAMIAN #### [facility] [address] [address] [address] Nic Marie SEG % 86.0 % Critically high 43.0-75.0 [facility] Comment on above: Performed By: #### C DAMIAN #### [facility] [address] [address] [address] Nic Marie WBC 14.6 103/ul Critically high 4.0-11.0 [facility] Comment on above: Performed By: #### C DAMIAN #### [facility] [address] [address] [address] Nic Marie GLYCOHEMOGLOBIN A1Con 2021 ADA RECOMMENDATION ADA THERAPEUTIC TARG ET 6.0 - 7.0 ACTION SUGGESTED > 7.0 Normal [facility] Comment on above: Performed By: #### A 1C #### [facility] [address] [address] [address] Nic Marie Glucose [Mass/Vol] 171 mg/dL Normal [facility] Comment on above: Performed By: #### A 1C #### [facility] [address] [address] [address] Nic Marie HbA1c (Bld) [Mass fraction] 7.6 % Critically high <=6.0 [facility] Comment on above: Performed By: #### A 1C #### [facility] [address] [address] [address] Nic Marie LIPID PROFILEon 05-04-2021 CHOL-HDL RATIO NORM SEE BELOW Normal [facility] Comment on above: Result Comment: 3.3 - 4.4 LOW RISK 4.4 - 7.1 AVERAGE RISK 7.1 - 11.0 MODERATE RISK >11.0 HIGH RISK Performed By: #### L IPID, TSH, MG, CMP #### [facility] [address] [address] [address] Nic Marie Cholesterol [Mass/Vol] 97 mg/dL Normal <=200 [facility] Comment on above: Performed By: #### L IPID, TSH, MG, CMP #### [facility] [address] [address] [address] Nic Marie Cholesterol in HDL [Mass/Vol] 34 mg/dL Normal [facility] Comment on above: Performed By: #### L IPID, TSH, MG, CMP #### [facility] [address] [address] [address] Nic Marie Cholesterol in LDL [Mass/Vol] 49.2 mg/dL Normal [facility] Comment on above: Performed By: #### L IPID, TSH, MG, CMP #### [facility] [address] [address] [address] Nic Marie Cholesterol.total/C holesterol in HDL [Mass ratio] 2.9 {ratio} Normal [facility] Comment on above: Performed By: #### L IPID, TSH, MG, CMP #### [facility] [address] [address] [address] Nic Marie HDL NORMAL > or = 60 mg/dl - LO W CARDIOVASCULAR RISK <40 mg/dl - HIGH CARDIOVASCULAR RISK Normal [facility] Comment on above: Performed By: #### L IPID, TSH, MG, CMP #### [facility] [address] [address] [address] Nic Marie LDL CALC NORMAL SEE BELOW Normal [facility] Comment on above: Result Comment: <100 mg/dl OPTIMAL 100 - 129 mg/dl NEAR OR ABOVE OPTIMAL 130 - 159 mg/dl BORDERLINE HIGH 160 - 189 mg/dl HIGH >190 mg/dl VERY HIGH Performed By: #### L IPID, TSH, MG, CMP #### [facility] [address] [address] [address] Nic Marie Triglyceride [Mass/Vol] 69 mg/dL Normal <=150 [facility] Comment on above: Performed By: #### L IPID, TSH, MG, CMP #### [facility] [address] [address] [address] Nic Marie VLDL CALC 13.8 mg/dL Normal [facility] Comment on above: Performed By: #### L IPID, TSH, MG, CMP #### [facility] [address] [address] [address] Nic Marie MAGNESIUMon 05-04-2021 Magnesium [Mass/Vol] 1.6 mg/dL Normal 1.6-2.3 [facility] Comment on above: Performed By: #### L IPID, TSH, MG, CMP #### [facility] [address] [address] [address] Nic Marie PROF 14(COMP METB)on 022 Albumin [Mass/Vol] 3.8 g/dL Normal 3.5-5.0 [facility] Comment on above: Performed By: #### L IPID, TSH, MG, CMP #### [facility] [address] [place] [address] Dr. Nic Marie Albumin/Globulin [Mass ratio] 1.0 {ratio} Normal [facility] Comment on above: Performed By: #### L IPID, TSH, MG, CMP #### [facility] [address] [place] [address] Dr. Nic Marie ALP [Catalytic activity/Vol] 69 U/L Normal 38-126 [facility] Comment on above: Performed By: #### L IPID, TSH, MG, CMP #### [facility] [address] [place] [address] Dr. Nic Marie ALT [Catalytic activity/Vol] 26 U/L Normal 21-72 [facility] Comment on above: Performed By: #### L IPID, TSH, MG, CMP #### [facility] [address] [place] [address] Dr. Nic Marie Anion gap [Moles/Vol] 8.5 mmol/L Normal [facility] Comment on above: Performed By: #### L IPID, TSH, MG, CMP #### [facility] [address] [place] [address] Dr. Nic Marie AST [Catalytic activity/Vol] 16 U/L Critically low 17-59 [facility] Comment on above: Performed By: #### L IPID, TSH, MG, CMP #### [facility] [address] [place] [address] Dr. Nic Marie Bilirubin [Mass/Vol] 0.7 mg/dL Normal 0.2-1.3 [facility] Comment on above: Performed By: #### L IPID, TSH, MG, CMP #### [facility] [address] [place] [address] Dr. Nic Marie Calcium [Mass/Vol] 9.4 mg/dL Normal 8.4-10.2 [facility] Comment on above: Performed By: #### L IPID, TSH, MG, CMP #### [facility] [address] [place] [address] Dr. Nic Marie Chloride [Moles/Vol] 104 mmol/L Normal 98-107 [facility] Comment on above: Performed By: #### L IPID, TSH, MG, CMP #### [facility] [address] [place] [address] Dr. Nic Marie CO2 [Moles/Vol] 30.9 mmol/L Critically high 22.0-30.0 [facility] Comment on above: Performed By: #### L IPID, TSH, MG, CMP #### [facility] [address] [place] [address] Dr. Nic Marie Creatinine [Mass/Vol] 1.03 mg/dL Normal 0.66-1.25 [facility] Comment on above: Performed By: #### L IPID, TSH, MG, CMP #### [facility] [address] [place] [address] Dr. Nic Marie EGFR-AF BURMESE >60 Normal >=60 [facility] Comment on above: Performed By: #### L IPID, TSH, MG, CMP #### [facility] [address] [place] [address] Dr. Nic Marie EGFR-NON AF BURMESE >60 Normal >=60 [facility] Comment on above: Performed By: #### L IPID, TSH, MG, CMP #### [facility] [address] [place] [address] Dr. Nic Marie Globulin (S) [Mass/Vol] 3.7 g/dL Normal [facility] Comment on above: Performed By: #### L IPID, TSH, MG, CMP #### [facility] [address] [address] [address] Nic Marie Glucose [Mass/Vol] 121 mg/dL Critically high 74-[address] [facility] Comment on above: Performed By: #### L IPID, TSH, MG, CMP #### [facility] [address] [address] [address] Nic Marie Potassium [Moles/Vol] 4.4 mmol/L Normal 3.4-5.0 [facility] Comment on above: Performed By: #### L IPID, TSH, MG, CMP #### [facility] [address] [place] [address] Dr. Nic Marie Protein [Mass/Vol] 7.5 g/dL Normal 6.1-8.2 [facility] Comment on above: Performed By: #### L IPID, TSH, MG, CMP #### [facility] [address] [place] [address] Dr. Nic Marie Sodium [Moles/Vol] 139 mmol/L Normal 137-145 [facility] Comment on above: Performed By: #### L IPID, TSH, MG, CMP #### [facility] [address] [place] [address] Dr. Nic Marie Urea nitrogen [Mass/Vol] 21.0 mg/dL Critically high 9.0-20.0 [facility] Comment on above: Performed By: #### L IPID, TSH, MG, CMP #### [facility] [address] [place] [address] Dr. Nic Marie Urea nitrogen/Creatinine [Mass ratio] 20.4 mg/mg Normal [facility] Comment on above: Performed By: #### L IPID, TSH, MG, CMP #### [facility] [address] [place] [address] Dr. Nic Marie TSHon 05-04-2021 TSH 1.553 uIU/mL Normal 0.470-4.680 [facility] Comment on above: Performed By: #### L IPID, TSH, MG, CMP #### [facility] [address] [place], [place] [address] Dr. Nic Marie TSH RANGE SEE BELOW Normal [facility] Comment on above: Result Comment: <0.3 4 UIU/ml HYPERTHYROID 0.34-5.60 UIU/ml EUTHYROID >5.60 UIU/ml HYPOTHYROID Performed By: #### L IPID, TSH, MG, CMP #### [facility] [address] [place], [place] [address] Dr. Nic Marie Cardiovascular Lab Reporton 08-03-2020 Cardiovascular Lab Report [facility] Patient Name: [facility] Khadar Smart MR #: [id number] Department of Physician: Alexa Campbell M.D. Division of Service Date: 08/03/2020 Cardiology Birthdate: 1940 Adult Cardiovascular Room #: [place] [address] Cardiovascular Laboratory Report FINAL IMPRESSIONS: 1. Severe [...] right internal jugular vein was obtained. A 6-Gabonese x 11 cm sheath was inserted without [...] to access the left radial artery. A 6-Gabonese glide sheath was inserted without difficulty. Bilateral selective coronary angiography was performed using JR4 and JL4 catheters. After reviewing the images, it was elected to proceed with an interventional procedure. A 6-Gabonese JR4 guide catheter was advanced over J-wire [...] stenosis. (more content not included)... Normal [facility] Vital Signs Date Time Vital Sign Value Performing Clinician Facility 04-16-2024 12:56-0500 Body mass index (BMI) [Ratio] 26.77 kg/m2 OMERO Bradshaw MD Work Phone: [facility] 04-16-2024 12:56-0500 Body temperature 96.69 [degF] OMERO Bradshaw MD Work Phone: [facility] 04-16-2024 12:56-0500 Body weight 75.2 kg OMERO Bradshaw MD Work Phone: [facility] 04-16-2024 12:56-0500 Diastolic blood pressure 72 mm[Hg] OMERO Bradshaw MD Work Phone: [facility] 04-16-2024 12:56-0500 Respiratory rate 18 /min OMERO Bradshaw MD Work Phone: [facility] 04-16-2024 12:56-0500 SaO2% (BldA) [Mass fraction] 88 % OMERO Bradshaw MD Work Phone: [facility] 04-16-2024 12:56-0500 Systolic blood pressure 121 mm[Hg] OMERO Bradshaw MD Work Phone: [facility] 10-19-2023 10:55-0400 Blood Pressure Location Yousuf JUDGE [facility] 10-19-2023 10:55-0400 Diastolic blood pressure 70 mm[Hg] Yousuf JUDGE [facility] 10-19-2023 10:55-0400 Heart rate 16 /min Yousuf JUDGE [facility] 10-19-2023 10:55-0400 Respiratory rate 16 /min Yousuf JUDGE [facility] 10-19-2023 10:55-0400 Systolic blood pressure 130 mm[Hg] Yousuf JUDGE [facility] 10-13-2022 09:35-0400 Blood Pressure Location Yousufwander JUDGE [facility] 10-13-2022 09:35-0400 Diastolic blood pressure 78 mm[Hg] Yousuf JUDGE [facility] 10-13-2022 09:35-0400 Heart rate 69 /min Yousuf JUDGE [facility] 10-13-2022 09:35-0400 Respiratory rate 16 /min Yousuf JUDGE [facility] 10-13-2022 09:35-0400 Systolic blood pressure 132 mm[Hg] Yousuf JUDGE [facility] Encounters Encounter Date Encounter Type Care Provider Facility Start: 10-20-2024 ambulatory Yousuf Flemingi ty:[facility] Start: 06-17-2024 End: 06-17-2024 Patient encounter procedure Kely Borden DO Work Phone: [facility] Comment on above: 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 (CMS/HCC) (Primary Dx); Primary open angle glaucoma (POAG) of both eyes, mild stage; 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; Age-related nuclear cataract of both eyes Start: 06-17-2024 End: 06-17-2024 Bamboo flowsheet Kely Borden DO Work Phone: [facility] Start: 06-17-2024 End: 06-17-2024 Bamboo flowsheet Kely Borden DO Work Phone: [facility] Start: 06-17-2024 End: 06-17-2024 ambulatory KELY BORDEN Not Available Start: 06-13-2024 End: 06-13-2024 [facility] Start: 06-13-2024 End: 06-13-2024 Subsequent hospital visit by physician Josy Delacruz MD Work Phone: [facility] Start: 06-10-2024 End: 06-10-2024 ambulatory [facility] Start: 06-10-2024 End: 06-10-2024 Subsequent hospital visit by physician Josy Delacruz MD Work Phone: [facility] Start: 06-06-2024 End: 06-06-2024 [facility] Start: 06-06-2024 End: 06-06-2024 Subsequent hospital visit by physician Josy Delacruz MD Work Phone: [facility] Start: 05-21-2024 End: 06-05-2024 Telephone encounter Yanelis Bradshaw MD Work Phone: Radiation Oncology Comment on above: Appointment Start: 05-14-2024 End: 05-14-2024 ambulatory Josy Delacruz MD Work Phone: [facility] Work Phone: Start: 05-14-2024 End: 05-14-2024 Departed Referred Josy Delacruz MD Work Phone: [facility] Start: 05-08-2024 End: 05-19-2024 Telephone encounter Yanelis Bradshaw MD Work Phone: Radiation Oncology Comment on above: [employer] - O ther; Future Appointment Start: 05-05-2024 End: 05-05-2024 ambulatory [facility] Start: 05-02-2024 End: 05-02-2024 Refill Dg Cook COT [facility] Comment on above: 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, mild stage (CMS/HCC) Start: 04-30-2024 End: 04-30-2024 ambulatory Yanelis BRADSHAW Facility:[facility] Start: 04-30-2024 End: 04-30-2024 Subsequent hospital visit [...] Work Phone: Radiation Oncology Comment on above: [employer] - O ther Future Appointment; [employer] - Other (Pacemaker Checks During XRT) Start: 04-23-2024 End: 04-23-2024 ambulatory Yanelis BRADSHAW Facility:[facility] Start: 04-23-2024 End: 04-25-2024 Patient encounter procedure Yanelis Bradshaw MD Work Phone: Radiation Oncology Comment on above: Malignant neoplasm o f lung, unspecified laterality, unspecified part of lung (HCC) (Primary Dx) Start: 04-22-2024 End: 04-23-2024 Telephone encounter Yanelis Bradshaw MD Work Phone: Hematology/Oncology Comment on above: Thoracentesis Start: 04-22-2024 End: 04-22-2024 Admission to same day surgery center Josy Delacruz MD Work Phone: [facility] [place] Work Phone: Start: 04-22-2024 End: 04-22-2024 ambulatory Josy Delacruz MD Work Phone: [facility] Work Phone: Start: 04-21-2024 End: 04-21-2024 Telephone encounter Yanelis Bradshaw MD Work Phone: [facility] Start: 04-16-2024 End: 04-28-2024 Telephone [...] encounter Yanelis Bradshaw MD Work Phone: [facility] Start: 04-09-2024 End: 04-09-2024 ambulatory [facility] Start: 04-09-2024 End: 04-09-2024 ambulatory [facility] Start: 04-09-2024 End: 04-09-2024 ambulatory [facility] Start: 04-07-2024 End: 04-07-2024 Non-patient / Non-visit Josy Delacruz MD Work Phone: [facility] Work Phone: Start: 03-20-2024 ambulatory [facility] Start: 03-10-2024 End: 03-10-2024 ambulatory [facility] Start: 03-07-2024 End: 03-07-2024 ambulatory [facility] Start: 03-03-2024 End: 03-03-2024 ambulatory [facility] Start: 02-08-2024 End: 02-08-2024 ambulatory [facility] Start: 11-27-2023 End: 11-27-2023 Bamboo flowsheet Kely Borden DO Work Phone: [facility] Start: 11-27-2023 End: 11-27-2023 Bamboo flowsheet Kely Borden DO Work Phone: [facility] Start: 11-27-2023 End: 11-27-2023 ambulatory KELY BORDEN Not Available Start: 10-19-2023 End: 10-19-2023 ambulatory Yousuf JUDGE Facility:[facility] Start: 10-19-2023 End: 10-19-2023 Patient encounter procedure Yousuf JUDGE [facility] Start: 09-25-2023 End: 09-25-2023 ambulatory [facility] Start: 08-24-2023 End: 08-24-2023 ambulatory KELY BORDEN Not Available Start: 06-29-2023 End: 06-29-2023 ambulatory KELY REEDER Not Available Start: 10-17-2022 End: 10-17-2022 Patient encounter procedure Yousuf JUDGE [facility] Start: 10-13-2022 End: 10-13-2022 Patient encounter procedure Yousuf JUDGE [facility] Start: 04-20-2022 End: 04-21-2022 ambulatory LAURA العلي Facility:[facility] Start: 10-25-2021 End: 10-26-[address] RAMYA FLANAGAN Facility:[facility] Start: 05-04-2021 End: 05-05-2021 ambulatory LAURA العلي Facility:[facility] Start: 08-03-2020 End: 08-04-2020 ambulatory RAMYA FLANAGAN Facility:[facility] Procedures Date Procedure Procedure Detail Performing Clinician Start: 06-17-2024 Intravitreal njx pharmacologic agt spx Kely Borden DO Work Phone: Start: 06-17-2024 End: 06-17-2024 Computerized ophthalmic imaging optic nerve Kely Borden DO Work Phone: Start: 06-13-2024 Drug screen quantita tive vancomycin Josy Delacruz MD Work Phone: Start: 06-10-2024 Drug screen quantita tive vancomycin Josy Delacruz MD Work Phone: Start: 06-06-2024 Drug screen quantita tive vancomycin Josy Delacruz MD Work Phone: Start: 04-30-2024 Gluc bld gluc mntr d [...] CARRILLO Start: 04-20-2022 PSA screening LAURA Schwartz NEDA Comment on above: Performed By: #### P SAD #### [facility] [address] [place] [address] Dr. Nic Marie Start: 08-03-2020 Placement of stent i n cardiac conduit Yousuf JUDGE carotid endarderectomy Frandy JUDGE History of hernia repair Tonia JUDGE Operative procedure on coronary artery Yousuf ALFIE Plan of Treatment Date Care Activity Detail Author Start: 11-03-2024 Influenza vaccination Influenz a Vaccine (Season Ended) [facility] Start: 10-03-2024 Influenza vaccination Flu vacc ine (Season Ended) [facility] Start: 07-15-2024 End: 07-15-2024 Patient encounter procedure 07/15/2024 11:00 AM EDT Office Visit [facility] [address] [place] [address] Kely Borden, [address] [place] [address] [facility] Start: 06-17-2024 End: 06-17-2024 Patient encounter procedure [facility] Comment on above: Arrived Start: 05-14-2024 Urine culture [facility] Start: 05-14-2024 Bacteria identified in Urine by Culture Urine Culture [facility] Start: 04-30-2024 End: 04-30-2024 Patient encounter procedure Radiation Oncology Comment on above: NEW START, LUNG pt p refers after 9:00am PET Start: 04-26-2024 End: 05-25-2025 PET+CT Guidance for 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-- W 18F-FDG IV NM PET/CT SKULL-THIGH SUBSEQUENT Radiology Routine Malignant neoplasm of unspecified part of unspecified bronchus or lung (HCC) Expected: 04/26/2024, Expires: 05/25/2025 [facility] Work Phone: Comment on above: [...] of lung (HCC) Expected: 04/22/2024, Expires: 07/22/2024 [facility] Comment on above: Expected: 04/22/2024 , Expires: 07/22/2024 Start: 04-22-2024 End: 07-22-2024 BODY FLUID CELL COUNT BODY FLUID CELL COUNT Lab Routine Malignant neoplasm of lung, unspecified laterality, unspecified part of lung (HCC) Expected: 04/22/2024, Expires: 07/22/2024 [facility] Work Phone: Comment on above: Expected: 04/22/2024 , Expires: 07/22/2024 Start: 04-22-2024 End: 07-22-2024 CYTOLOGY NON-TAN ROOM SUPERVISOR CYTOLOGY NON-TAN ROOM SUPERVISOR Lab Routine Malignant neoplasm of lung, unspecified laterality, unspecified part of lung (HCC) Expected: 04/22/2024, Expires: 07/22/2024 [facility] Comment on above: Expected: 04/22/2024 , Expires: 07/22/2024 Start: 04-22-2024 End: 07-22-2024 Glucose [Mass/volume] in Body fluid GLUCOSE, BODY FLUID Lab Routine Malignant neoplasm of lung, unspecified laterality, unspecified part of lung (HCC) Expected: 04/22/2024, Expires: 07/22/2024 [facility] Comment on above: Expected: 04/22/2024 , Expires: 07/22/2024 Start: 04-22-2024 End: 07-22-2024 Lactate dehydrogenase [Enzymatic activity/volume] in Body fluid LACTATE DEHYDROGENASE, BODY FLUID Lab Routine Malignant neoplasm of lung, unspecified laterality, unspecified part of lung (HCC) Expected: 04/22/2024, Expires: 07/22/2024 [facility] Comment on above: Expected: 04/22/2024 , Expires: 07/22/2024 Start: 04-22-2024 End: 07-22-2024 Microorganism identified in Unspecified specimen by Culture AFB CULTURE AND STAIN Microbiology Routine Malignant neoplasm of lung, unspecified laterality, unspecified part of lung (HCC) Expected: 04/22/2024, Expires: 07/22/2024 [facility] Comment on above: Expected: 04/22/2024 , Expires: 07/22/2024 Start: 04-22-2024 End: 07-22-2024 pH of Body fluid PH BODY FLUID Lab Routine Malignant neoplasm of lung, unspecified laterality, unspecified part of lung (HCC) Expected: 04/22/2024, Expires: 07/22/2024 [facility] Comment on above: Expected: 04/22/2024 , Expires: 07/22/2024 Start: 03-05-2024 Advance Directive Discussion Advance Directive Discussion [facility] Start: 11-27-2023 End: 11-27-2023 Patient encounter procedure 11/27/2023 10:30 AM EDT Office Visit [facility] [address] [place] [id number] Kely Borden DO [address] [place] [address] Arrived [facility] Comment on above: Arrived Start: 11-04-2023 COVID-19 Vaccine () COVID-19 Vaccine () [facility] Start: 11-04-2023 Covid-19 Vaccine () Covid-19 Vaccine () [facility] Start: 11-04-2023 Influenza vaccination Influenza Vacc ine (#1) [facility] Start: 12-20-2017 Pneumococcal Vaccine : 50+ (2 of 2 - PPSV23) Pneumococcal Vaccine: 50+ (2 of 2 - PPSV23) [facility] Start: 12-20-2017 Pneumococcal Vaccine : 65+ Years (2 of 2 - PPSV23 or PCV20) Pneumococcal Vaccine: 65+ Years (2 of 2 - PPSV23 or PCV20) [facility] Start: 12-20-2017 Pneumococcal Vaccine : 65+ Years (2 of 2 - PPSV23) Pneumococcal Vaccine: 65+ Years (2 of 2 - PPSV23) [facility] Start: 2017 Respiratory Syncytia l Virus (RSV) or age 60 yrs+ (1 - 1-dose 75+ series) Respiratory Syncytial Virus (RSV) or age 60 yrs+ (1 - 1-dose 75+ series) [facility] Start: 2017 RSV Vaccine (1 - 1-d ose 75+ series) RSV Vaccine (1 - 1-dose 75+ series) [facility] Start: 02-16-1992 Shingrix Vaccine (1 of 2) Shingrix Vaccine (1 of 2) [facility] Start: 1987 Diabetes Screening Diabetes Screenin g [facility] Start: 1961 DTaP/Tdap/Td vaccine (1 - Tdap) DTaP/Tdap/Td vaccine (1 - Tdap) [facility] Start: 1961 Urine microalbumin profile DTaP,Tdap,Td Vaccine (1 - Tdap) [facility] Start: 02-16-1960 Anxiety Screening Anxiety Screening [facility] Start: 02-16-1960 Depression Screening Depression Scre ening [facility] ANALYZE CARDIO/DEFIBRILLATOR ANALYZE CARDIO/DEFIBRILLATOR Cardiology Routine Atrial fibrillation, unspecified type (HCC) Malignant neoplasm of lung, unspecified laterality, unspecified part of lung (HCC) Ordered: 04/17/2024 [facility] Work Phone: Comment on above: Ordered: 04/17/2024 CT Guidance for radiation treatment of Unspecified body region CT SIM PLANNING RADIATION ONCOLOGY Radiology Routine Malignant neoplasm of lung, unspecified laterality, unspecified part of lung (HCC) Ordered: 04/23/2024 [facility] Work Phone: Comment on above: Ordered: 04/23/2024 Guidance for thoracentesis of Chest IMAGING GUIDED THORACENTESIS Radiology Routine Malignant neoplasm of lung, unspecified laterality, unspecified part of lung (HCC) Ordered: 04/17/2024 [facility] Comment on above: Ordered: 04/17/2024 PET+CT Guidance for 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-- W 18F-FDG IV NM PET/CT SKULL-THIGH SUBSEQUENT Radiology Routine Malignant neoplasm of unspecified part of unspecified bronchus or lung (HCC) 04/30/2024 9:22 AM EST [facility] Work Phone: Immunizations Immunization Date Immunization Notes Care Provider Natacha wang 11-23-2021 SARS-CoV-2 (COVID-19 ) [id number] Yousuf JUDGE [facility] 12-30-2020 SARS-CoV-2 (COVID-19 ) mRNA BNT-162b2 vax Yousuf JUDGE [facility] Comment on above: Result Comment: 2023: [id number] 05-13-2020 SARS-CoV-2 (COVID-19 ) mRNA-1273 vaccine Yousuf JUDGE [facility] Comment on above: Result Comment: 2023: [id number] 04-15-2020 SARS-CoV-2 (COVID-19 ) mRNA-1273 vaccine Yousuf UJDGE [facility] 03-05-2020 SARS-CoV-2 (COVID-19 ) mRNA-1273 vaccine Yousuf JUDGE [facility] Comment on above: Result Comment: pt h as had 3 shots to date but does not know the dates 12-20-2016 pneumococcal conjuga te vaccine, 13 valent Yousuf JUDGE [facility] NEGATED: Highlighted row has not occurred!04-23-2020 influenza virus vaccine, unspecified formulation Yousuf JUDGE [facility] Payers Date Payer Category Payer Self-pay 2021 Medicaid [employer] MEDICARE A DVANTAGE [id number] 2021 Medicare AETNA MEDICARE A DVANTAGE AETNA MEDICARE REPLACEMENT [id number] 2021-Present [address] [place] [address] [id number] 2019 Medicare (Managed Care) [employer] [place] DICARE [id number] 1959 Medicare [id number] 1940 Unknown [id number] [id number]. 647 1940 Unknown [id number] 2.16.840.1.245334.3.579.2. 593 1940 Unknown [id number] 2.16.840.1.100199.3.579.2. 593 1940 Unknown [id number] 2.16.840.1.081953.3.579.2. 593 1942 Unknown [id number] 2.16.840.1.226725.3.579.2. 593 1940 Unknown [id number] 2.16.840.1.108968.3.579.2. 727 1940 Unknown [id number] 2.16.840.1.439509.3.579.2. 727 1942 Unknown [id number] 2.16.840.1.600240.3.579.2. 174 1942 Unknown [id number] 2.16.840.1.151840.3.579.2. 174 1942 Unknown [id number] 2.16.840.1.960125.3.579.2. 174 1942 Unknown [id number] 2.16.840.1.701492.3.579.2. 1259 1942 Unknown [id number] 2.16.840.1.635376.3.579.2. 1259 1942 Unknown [id number] 2.16.840.1.576075.3.579.2. 1259 1942 Unknown [id number] 2.16.840.1.680948.3.579.2. 1259 Private Health Insurance [id number] Private Health Insurance [facility] [id number] Unknown [id number] [id number]. 531 Unknown [id number] [id number]. 531 Social History Date Type Detail Facility Start: 05-28-2014 End: 04-25-2019 Tobacco smoking status Ex-smoker (finding) [facility] Start: 09-27-2022 End: 06-17-2024 Sex Assigned At Male [facility] Tobacco smoking status Never [facility] Start: 09-27-2022 Tobacco smoking stat [facility] Never smoked tobacco [facility] Start: 09-27-2022 End: 06-17-2024 History of Social function [facility] Start: 1940 Sex assigned at Not on file N [facility] Start: 03-05-1969 End: 03-05-1999 History of tobacco use Current smoker [facility] Start: 03-05-1969 End: 03-05-1999 History of tobacco use Cigarette Smoker [facility] Start: 05-28-2014 Tobacco use and exposure Smokeless tobacco non-user [facility] Start: 06-05-2018 Alcoholic beverage intake Current non-drinker of alcohol (finding) [facility] Start: 04-25-2024 End: 06-06-2024 Sex Male (finding) [facility] Start: 1940 Sex Assigned At Male [facility] Tobacco smoking stat [facility] Tobacco smoking consumption unknown [facility] Functional Status Date Assessment Result Facility 10-19-2023 Functional Status N/A [facility] 10-13-2022 Functional Status N/A [facility] 09-28-2014 Are you deaf, or do you have serious difficulty hearing No 09/28/2014 11:08 AM Rojelio Garcia RN No [facility] 09-28-2014 Are you blind, or do you have serious difficulty seeing, even when wearing glasses No 09/28/2014 11:08 AM Rojelio Garcia RN No [facility] 09-28-2014 Do you have serious difficulty walking or climbing stairs No 09/28/2014 11:08 AM Rojelio Garcia RN No [facility] 09-28-2014 Do you have difficul ty dressing or bathing No 09/28/2014 11:08 AM EDT Rojelio Guajardo RN No [facility] 09-28-2014 Because of a physica l, mental, or emotional condition, do you have difficulty doing errands alone such as visiting a physician's office or shopping No 09/28/2014 11:08 AM EDT Rojelio Guajardo RN No [facility] Mental Status Date Assessment Result Facility 09-28-2014 Because of a physica l, mental, or emotional condition, do you have serious difficulty concentrating, remembering, or making decisions No 09/28/2014 11:08 AM EDT Rojelio Guajardo RN No [facility] Clinical Notes 10-13-2022 to 06-17-2024 Kely Borden, DO - 06/17/2024 2:15 PM EDTTelephone Encounter - Rojelio Guajardo RN - 06/05/2024 11:21 AM EDTTelephone Encounter - Rojelio Guajardo RN - 06/05/2024 11:21 AM EDT Note Date & Type Note Facility 06-17-2024 Note Time Out 06/17/2024. 3:50 PM. Confirmed correct patient, procedure, site, and patient consented. Anesthesia Topical anesthesia was used. Anesthetic medications included Lidocaine 2%, Proparacaine 0.5%. Procedure Preparation included 5% betadine to ocular surface, eyelid speculum. A 30 gauge needle was used. Injection: 1.25 mg Bevacizumab 1.25 MG/0.05ML Route: Intravitreal, Site: Right Eye [facility]: [address]-9, Lot: [id number], Expiration date: 08/05/2024 Post-op Post injection exam found visual acuity of at least counting fingers, no retinal detachment, perfused optic nerve. The patient tolerated the procedure well. There were no complications. The patient received written and verbal post procedure care education. Post injection medications were not given. Notes Intravitreal antiVEGF Treatment: Risks, benefits and alternatives were discussed for Intravitreal injection with the prescribed antiVEGF agent. With intraocular surgery, there is potential for direct retinal damage through retinal or RPE tear, or infection, with subsequent vision loss. Informative Intravitreal pamphlet provided as well as an OMIC consent. Of course, the treatment may fail to accomplish the overall therapeutic objectives, which is to stall or decrease the amount of retinal edema / bleeding, and therefore stall or improve vision loss. Intravitreal Anti-VEGF: Consent was obtained and questions answered. Operative eye was identified, receiving topical proparacaine, 5% betadine, and 2% xylocaine jelly. A lid speculum was placed and the inferotemp. injection site received additional anesthetic with a proparacaine soaked cotton swab. Using calipers (set at 3.5mm for pseudo and 4mm for phakic), the inferotemp. limbus was measured, sclera marked and 2 additional drops of betadine placed. Avoiding any talking to avoid contamination, intravitreal injection was carried out without difficulty. Any residual amount of medication was discarded appropriately. The patient tolerated the procedure well and instructed to call with increased pain, redness, decreased vision or concerns. [facility] 06-17-2024 Note Right Eye Quality was borderline. Scan locations included subfoveal. Progression has worsened. Findings include abnormal foveal contour, subretinal fluid, subretinal scarring. Left Eye Quality was good. Scan locations included subfoveal. Progression has been stable. Findings include abnormal foveal contour, subretinal scarring. [facility] 06-17-2024 History of Present illness Narrative Images from the original note were not included. Assessment/Plan Diagnoses and all orders for this visit: 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) - Intravitreal Injection, Pharmacologic Agent - OD - Right Eye - Bevacizumab solution prefilled syringe 1.25 mg OCT, Retina - OU - Both Eyes Right Eye Quality was borderline. Scan locations included subfoveal. Progression has worsened. Findings include abnormal foveal contour, subretinal fluid, subretinal scarring. Left Eye Quality was good. Scan locations included subfoveal. Progression has been stable. Findings include abnormal foveal contour, subretinal scarring. Linked Images OCT, Optic Nerve - OU - Both Eyes Right Eye Images reviewed and comparison made to baseline, Images reviewed. To assess optic nerve function and for use in future follow-up. Reliability: good and adequate. Left Eye Images reviewed and comparison made to baseline, Images reviewed. To assess optic nerve function and for use in future follow-up. Reliability: good and adequate. Notes Nerve fiber layer (NFL) thinning both eyes (OU). Linked Images Intravitreal Injection, Pharmacologic Agent - OD - Right Eye Time Out 06/17/2024. 3:50 PM. Confirmed correct patient, procedure, site, and patient consented. Anesthesia Topical anesthesia was used. Anesthetic medications included Lidocaine 2%, Proparacaine 0.5%. Procedure Preparation included 5% betadine to ocular surface, eyelid speculum. A 30 gauge needle was used. Injection: 1.25 mg Bevacizumab 1.25 MG/0.05ML Route: Intravitreal, Site: Right Eye [facility]: [address]-4, Lot: [id number], Expiration date: 08/05/2024 Post-op Post injection exam found visual acuity of at least counting fingers, no retinal detachment, perfused optic nerve. The patient tolerated the procedure well. There were no complications. The patient received written and verbal post procedure care education. Post injection medications were not given. Notes Intravitreal antiVEGF Treatment: Risks, benefits and alternatives were discussed for Intravitreal injection with the prescribed antiVEGF agent. With intraocular surgery, there is potential for direct retinal damage through retinal or RPE tear, or infection, with subsequent vision loss. Informative Intravitreal pamphlet provided as well as an OMIC consent. Of course, the treatment may fail to accomplish the overall therapeutic objectives, which is to stall or decrease the amount of retinal edema / bleeding, and therefore stall or improve vision loss. Intravitreal Anti-VEGF: Consent was obtained and questions answered. Operative eye was identified, receiving topical proparacaine, 5% betadine, and 2% xylocaine jelly. A lid speculum was placed and the inferotemp. injection site received additional anesthetic with a proparacaine soaked cotton swab. Using calipers (set at 3.5mm for pseudo and 4mm for phakic), the inferotemp. limbus was measured, sclera marked and 2 additional drops of betadine placed. Avoiding any talking to avoid contamination, intravitreal injection was carried out without difficulty. Any residual amount of medication was discarded appropriately. The patient tolerated the procedure well and instructed to call with increased pain, redness, decreased vision or concerns. Primary open angle glaucoma (POAG) of both [...] worsening of vision documented in this encounter [facility] 06-05-2024 Telephone encounter Note No follow up needed at this time per Dr. Bradshaw. Rojelio Guajardo RN [facility] 06-05-2024 Miscellaneous Notes No follow up needed at this time per Dr. Bradshaw. Rojelio Guajardo RN FYI--Dr. Ponce's office called to notify Dr. Bradshaw that Khadar did not show for his consult today. Patient was referred to Dr. Ponce per patient request to establish care with a local pharmacognosist. Khadar does not have any appointments scheduled with Dr. Bradshaw at this time. Dr. Bradshaw: Does Khadar need a follow up scheduled at some point? Thanks Rojelio Guajardo RN documented in this encounter [facility] 05-26-2024 Note On Sunday I called t o discuss with the patient and his sister, that after discussion with Dr. Arriaga, we recommend going to either [facility] or [facility] for evaluation and treatment. 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 The patient was reluctant to go. I explained our thoughts and the risks of not going. He then wanted me to talk it over with his sister. She reported that his was just taken by EMS to [facility] s/t not feeling well. The sister reported that they would try and make it to the hospital on Sunday. [facility] 05-21-[address] Delacruz the patient' s primary care physician send my office in [place] a message that patient has positive blood [...] Dr. Delacruz was called with my recommendation [facility] 05-21-2024 Telephone encounter Note FYI--Dr. Ponce's office called to notify Dr. Bradshaw that Khadar did not show for his consult today. Patient was referred to Dr. Ponce per patient request to establish care with a local pharmacognosist. Khadar does not have any appointments scheduled with Dr. Bradshaw at this time. Dr. Bradshaw: Does Khadar need a follow up scheduled at some point? Thanks Rojelio Guajardo RN [facility] 05-08-2024 Telephone encounter Note Call placed to Dr Rodriguez's office. They confirmed he has already seen Dr Rodriguez. They are working on a prior auth for him to start chemo and also an MRI brain he is having done at [facility]. Edyta Gilliland RN [facility] 05-08-2024 Telephone encounter Note Images from the original note were not included. Message Received: Today Engeler, G Juno, MD P Radt Sand Rad Nurse Pool Can we verify pt seeing medonc? Previous Messages ----- Message ----- From: Radiology, Oru In Sent: 05/01/2024 11:47 AM EST To: Yanelis Bradshaw MD [facility] 05-08-2024 Miscellaneous Notes Call placed to Dr Rodriguez's office. They confirmed he has already seen Dr Rodriguez. They are working on a prior auth for him to start chemo and also an MRI brain he is having done at [facility]. Edyta Gilliland, RN Images from the original note were not included. Message Received: Today Yanelis Bradshaw MD P Radt [facility] Rad Nurse Pool Can we verify pt seeing medonc? Previous Messages ----- Message ----- From: Radiology, Oru In Sent: 05/01/2024 11:47 AM EST To: Yanelis Bradshaw MD documented in this encounter [facility] 05-05-2024 Note [facility] Subjective Khadar Dawn is a 84 [...] Atrial fibrillation (CMS/HCC) CHF (congestive heart failure) ([facility]) COPD (chronic obstructive pulmonary disease) ([facility]) home oxygen 4 L Coronary artery disease Diabetes mellitus ([facility]) Hyperkalemia Hyperlipidemia Hypertension Past Surgical [...] mg by mout (more content not included)... [facility] 04-30-2024 History of Present illness Narrative [...] 0756 PATIENT DISCHARGED TO: Ambulatory patient, left [place] department area. Is this a therapy: No A Diagnostic radioactive procedure has taken place, with no further precautions necessary other than routine body substance precautions. More information regarding radiation safety can be found using this link: [email or web address] ear%[email or web address] SIGNATURE: RT Adenike(Dharmesh) PATIENT NAME: Khadar Dawn DATE: April 30, 2024 TIME: 8:24 AM PAGER/CONTACT #: documented in this encounter [facility] 04-30-2024 Note HNO ID: [id number] Author: CHERELLE CORDERO RN Service: ? Author [...] DATE: April 30, 2024 TIME: 7:59 AM [facility] 04-30-2024 Note HNO ID: [id number] Author: DG COOK RT(Dharmesh) Service: ? Author [...] 0756 PATIENT DISCHARGED TO: Ambulatory patient, left [place] department area. Is this a therapy: No A Diagnostic radioactive procedure has taken place, with no further precautions necessary other than routine body substance precautions. More information regarding radiation safety can be found using this link: [email or web address] [email or web address]-% 20Diagnostic%20Nuclear%20Medicine %20Procedures.pdf SIGNATURE: RT Adenike(R) PATIENT NAME: Khadar Dawn DATE: April 30, 2024 TIME: 8:24 AM PAGER/CONTACT #: [facility] 04-25-2024 Telephone encounter Note Khadar is scheduled for a PET scan on Apr 30 with an arrival time of 8am and a scan time of 915. Confirmed with . [facility] 04-25-2024 Miscellaneous Notes Khadar is [...] patient on Sunday when he is in [place]. documented in this encounter [facility] 04-25-2024 Telephone encounter Note I apologize, per Radiology I can't use this one. I have to give him the next available which is 05/06 or 05/09. [facility] 04-25-2024 Telephone encounter Note First PET opening is Sunday. Please advise if this is ok? [facility] 04-25-2024 Telephone encounter Note In reviewing simulation images right concern of growing nodules outside of the left upper lobe lesion concerning for metastasis. Recommend holding radiation planning. Recommend reimaging with PET scan. Discussed with Dr. Rodriguez and with patient. Dr. Rodriguez can see patient on Sunday when he is in [place]. [facility] 04-23-[address] [...] of ordering and scheduling. Edyta Gilliland RN [facility] 04-23-[address] Rodriguez's [...] Edyta Gilliland RN documented in this encounter [facility] 04-23-2024 Telephone encounter Note Call placed to [facility] [place] ([phone]). Spoke to Kristi to arrange weekly pacemaker checks. Kristi called rep from [employer] and stated he has a single chamber [...] pt know as well. Edyta Gilliland RN [facility] 04-23-2024 Miscellaneous Notes Call placed to [facility] [place] ([phone]). Spoke to Kristi to arrange weekly pacemaker checks. Kristi called rep from [employer] and stated he has a single chamber [...] Edyta Gilliland RN documented in this encounter [facility] 04-23-2024 Note HNO ID: [id number] Author: Yanelis BRADSHAW MD Service: ? Author Type: Physician Type: Progress Notes Filed: 04/23/2024 09:36 Note Text: se [facility] 04-23-2024 History of Present illness Narrative sim documented in this encounter [facility] 04-23-2024 Telephone encounter Note Per scanned US report, thoracentesis was not done. [facility] 04-23-2024 Miscellaneous Notes Per scanned US report, thoracentesis was not done. Received call from Hui at [facility] radiology asking for images from last Chest XR be pushed over. Patient is there for thoracentesis and the radiologist is not seeing any fluid. I let her know his last XR chest was done at [facility], and the one before that was at [place]. She will call there for images. She said they will probably not be able to do the thoracentesis since there is no fluid that they can see. documented in this encounter [facility] 04-23-2024 History of Present illness Narrative KHADAR DAWN [id number] 04/23/2024 [facility] Radiation Oncology Department SIMULATION NOTE DATE OF SIMULATION: 04/23/2024 THERAPIST: Paulette Noonswoon MACHINE: [email or web address] DIAGNOSIS: Malignant neoplasm of upper lobe, left [...] Electronically Signed Juno Bradshaw M.D. / TS 52:31 PM documented in this encounter [facility] 04-23-2024 Note HNO ID: [id number] Author: Yanelis BRADSHAW MD Service: ? Author Type: Physician Type: Progress Notes Filed: 04/24/2024 14:31 Note Text: KHADAR DAWN [id number] 04/23/2024 [facility] Radiation Oncology Department SIMULATION NOTE DATE OF SIMULATION: 04/23/2024 THERAPIST: Paulette Noonswoon MACHINE: [email or web address] DIAGNOSIS: Malignant neoplasm of upper lobe, left [...] Juno Bradshaw M.D. / TS :31 PM [facility] 04-22-2024 Radiology Diagnostic study note [facility] Main [place] [address] [place] [address] Ultrasound Report Signed Patient: Khadar Dawn MR#: [id number] : 1940 Acct:[id number] Age/Sex: 84 / M ADM Date: 5 Loc: Room: Type: [facility] Attending Dr: Comfort Bradshaw MD Ordering Provider: Yanelis Bradshaw MD Date of Service: 04/22/24 US/US guide or thoracentesis: THORA Copies to: Yanelis Bradshaw MD~ ULTRASOUND-GUIDED THORACENTESIS INDICATION: REPORTED EFFUSION COMPARISON: NONE US/US guide or thoracentesis FINDINGS/IMPRESSION: ULTRASOUND LEFT CHEST WALL DEMONSTRATE NO FLUID COLLECTION. PROCEDURE NOT PERFORMED. Impression dictated by: Hal Mojica M.D.04/22/2024 2:57 PM Dictation Location: [place] [address] Tech: Javier Vidal Transcribed By: QING 04/22/24 145 Dictated By: Hal Mojica MD 04/22/24 1456 Signed By: 04/22/241456 [facility] Work Phone: 04-22-2024 Telephone encounter Note Received call from Hui at [facility] radiology asking for images from last Chest XR be pushed over. Patient is there for thoracentesis and the radiologist is not seeing any fluid. I let her know his last XR chest was done at [facility], and the one before that was at [place]. She will call there for images. She said they will probably not be able to do the thoracentesis since there is no fluid that they can see. [facility] 04-21-2024 Telephone encounter Note Consult note faxed to Dr. Rodriguez. [facility] 04-21-2024 Miscellaneous Notes Consult note faxed to Dr. Rodriguez. Erich from Dr. Rodriguez's office called asking for past progress notes for the patient. He stated that the patient was referred and they have not received any information. Please fax records to [phone]. documented in this encounter [facility] 04-21-2024 Telephone encounter Note Patient does not see Dr. Lane. This fax number is for Dr. Rodriguez. Patient's PCP is Dr. Delacruz. Note will be faxed to Dr. Rodriguez and Dr. Delacruz once it is complete. [facility] 04-21-2024 Miscellaneous Notes Patient does not see Dr. Lane. This fax number is for Dr. Rodriguez. Patient's PCP is Dr. Delacruz. Note will be faxed to Dr. Rodriguez and Dr. Delacruz once it is complete. Dr. Lane's office called requesting progress notes from the past 12 months. Please fax to [phone]. They are requesting this today as he has an appointment. Thank you documented in this encounter [facility] 04-21-2024 Telephone encounter Note Records faxed to Dr. Ponce's [place] office. [facility] 04-21-2024 Miscellaneous Notes Records faxed to Dr. Ponce's [place] office. Referral was sent to [place] and [place] offices. Confirmed patient to be scheduled in [place] with Dr. Ponce on 04/23 at 3pm. I called [place] office and explained sent by mistake to please disregard. JACLYN Claudio could you please fax demographics and records to DR. Ponce office at [phone]. He is having a thoracentesis on 04/22. [...] no special instructions. Thanks! Vicki Dockery, RT(R)(T) Patient scheduled at [facility] on 04/22 at 9am. Arrive at 8am and stop Xarelto 2 days prior. LM for patient of this information and I will call back tomorrow to confirm he got it. Dr Ponce office returned my call. Asked if I would fax everything to their referral fax line. They will review and contact the patient for an appointment. All info was faxed to [phone] Will follow up to see when appt is scheduled Yolanda Schwartz PSS Everything is faxed to [facility] for Shazia Perez and I will check with [facility] daily to see when scheduled [...] to be signed to fax to IR [facility] PSS/RT: Please schedule [facility] IR for thoracentis return for sim after treating lung no contrast 15 treatments, no concurrent chemo Need presim consent Nurse ed today Consult with Dr. Ponce to establish care with local pharmacognosist. pt does not want to travel to current pharmacognosist in [place]. Thanks Rojelio Guajardo RN documented in this encounter [facility] 04-21-2024 Telephone encounter Note Referral was sent to [place] and [place] offices. Confirmed patient to be scheduled in [place] with Dr. Ponce on 04/23 at 3pm. I called [place] office and explained sent by mistake to please disregard. [facility] 04-21-2024 Telephone encounter Note JACLYN Claudio could you please fax demographics and records to DR. Ponce office at [phone]. He is having a thoracentesis on 04/22. She would like records faxed and images pushed of those as well. Thanks so much [facility] 04-21-2024 Telephone encounter Note Spoke to patient, confirmed pre sim and arrival time 04/23 at 745am. [facility] 04-21-2024 Telephone encounter Note Erich from Dr. Rodriguez's office called asking for past progress notes for the patient. He stated that the patient was referred and they have not received any information. Please fax records to [phone]. [facility] 04-21-2024 Telephone encounter Note Sim scheduled on 04/23/24 at 830am PSS - please schedule pre sim consent with CHRISTIE at 8am & notify pt of 745 arrival time, no special instructions. Thanks! Vicki Dockery, RT(R)(T) [facility] Work Phone: 04-18-2024 Telephone encounter Note Patient scheduled at [facility] on 04/22 at 9am. Arrive at 8am and stop Xarelto 2 days prior. LM for patient of this information and I will call back tomorrow to confirm he got it. [facility] 04-18-[address] Ponce office returned my call. Asked if I would fax everything to their referral fax line. They will review and contact the patient for an appointment. All info was faxed to [phone] Will follow up to see when appt is scheduled Yolanda Schwartz PSS [facility] 04-18-2024 Telephone encounter Note Everything is faxed to [facility] for Shazia Perez and I will check with [facility] daily to see when scheduled I called Dr Ponce office and got a voicemail stating they are away from their desk. I left a message asking them to return my call as I have a referral I would like to get scheduled. Will update when I hear back from them Yolanda Schwartz PSS [facility] 04-18-2024 Telephone encounter Note Order is signed. Please arrange thoracentesis appt lizette. Thanks Rojelio Guajardo RN [facility] 04-17-2024 Telephone encounter Note Waiting on orders to be signed to fax to [facility] 04-16-2024 Note HNO ID: [id number] Author: ROJELIO GUAJARDO RN Service: ? Author Type: Registered Nurse Type: Progress Notes Filed: 04/16/2024 15:30 Note Text: Radiation Therapy - Patient Education Note PATIENT NAME: Khadar Dawn PATIENT April 16, 2024 [facility] [place]LOCATION: [facility] READINESS TO LEARN Cognitive Ability: Alert [...] need for social work, van service, and senior training and development rep. Was PED reviewed? No Patient has an Onbody or Implanted device: Yes, person notified was: Dr. Bradshaw Signed by: Rojelio Guajardo RN [facility] 04-16-2024 History of Present illness Narrative Radiation Therapy - Patient Education Note PATIENT NAME: Khadar Dawn PATIENT April 16, 2024 [facility] [place]/LOCATION: [facility] READINESS TO LEARN Cognitive Ability: Alert [...] need for social work, van service, and senior training and development rep. Was PED reviewed? No Patient has an Onbody or Implanted device: Yes, person notified was: Dr. Bradshaw Signed by: Rojelio Guajardo RN documented in this encounter [facility] 04-16-2024 Telephone encounter Note PSS/RT: Please schedule [facility] IR for thoracentis return for sim after treating lung no contrast 15 treatments, no concurrent chemo Need presim consent Nurse ed today Consult with Dr. Ponce to establish care with local pharmacognosist. pt does not want to travel to current pharmacognosist in [place]. Thanks Rojelio Guajardo RN [facility] 04-16-2024 Note HNO ID: [id number] Author: Yanelis BRADSHAW MD Service: ? Author [...] (60.0 ttl pk-yrs) (more content not included)... [facility] 04-16-2024 History of Present illness Narrative Radiation [...] uptake to an AP window lymph node. [facility] with EBUS negative level 7 lymph [...] Signed by: Yanelis Bradshaw MD cc: Josy Delacruz [address] [id number] Meeta Rodriguez [address] [facility] [address] Pacemaker/Defibrillator? Yes 03/03 placed Previous Cancer(s)? Yes Prostate Previous Radiation? Yes- Here Lupus/Scleroderma?No On body monitoring device? No Edyta Gilliland RN documented in this encounter [facility] 04-16-2024 Note HNO ID: [id number] Author: EDYTA GILLILAND RN Service: ? Author Type: Registered Nurse Type: Progress Notes Filed: 04/21/2024 15:24 Note Text: Pacemaker/Defibrillator? Yes 03/03 placed Previous Cancer(s)? Yes Prostate Previous Radiation? Yes- Here Lupus/Scleroderma?No On body monitoring device? No Edyta Gilliland RN [facility] 04-16-2024 Note Education (RADTSA) KHADAR DAWN ([id number]) 1940 M Date Time Provider Department 04/16/24 [...] Encounter Status:Closed by ROJELIO GUAJARDO on 04/16/24 [facility] 04-15-[address] Lane's office called requesting progress notes from the past 12 months. Please fax to [phone]. They are requesting this today as he has an appointment. Thank you [facility] 04-09-2024 Note Patient: Khadar cox Procedure Summary Date: 04/09/24 Room / Location: [facility] Main Operating Room Anesthesia Start: 1110 Anesthesia [...] per anesthesia protocol. No notable events documented. [facility] 04-09-2024 Note Airway Date/Time: 04/09/2024 11:21 AM Urgency: elective Airway not difficult General Information and Staff Patient location during procedure: OR Anesthesiologist: Zuly Rizo MD Resident/POLEYARD SUPERVISOR/MARIA D: Anmol Mccray MD Performed: resident/POLEYARD SUPERVISOR/MARIA D Learner assisted: MS Indications and Patient [...] 22 Number of attempts at approach: 1 [facility] 04-09-[address] Rizo at pt beds gabriella to assess before heading to procedure room. [facility] 04-09-2024 Note H&P reviewed. The pa tient was examined and there are no changes to the H&P. Re-explained the procedure to the patient along with the associated risk of pneumothorax, bleeding, hypoxia, and respiratory failure. Patient is agreeable and will proceed with the scheduled Robotic bronchoscopy and TBBx, FNA, EBUS Cara Perez MD Interventional Pulmonary Medicine Pulmonary and Critical Care Medicine [facility] 04-09-2024 Note PROCEDURE: CT CHEST WITHOUT CONTRAST [...] reasonably achievable. Electronically signed: David Hoffman MD. Mehdi Vldtd [facility] 04-08-2024 Note Patient: Khadar cox Procedure Information Date/Time: 04/09/24 1030 Scheduled providers: Cara Perez MD; Zuly Rizo MD Procedure: BRONCHOSCOPY Location: [facility] Main Operating Room Relevant Problems Cardio S/p [...] with attending and resident. Additional Equipment Requests [facility] 03-20-2024 Note Attestation signed by Cara Perez MD at 03/21/2024 11:55 AM I have seen and examined the patient. I reviewed the resident/fellow note and I agree with the findings and plan. Cara Perez MD Interventional Pulmonary Medicine Pulmonary and Critical Care Medicine [facility] Visit Note Patient: Khadar Dawn Age: 84 y.o. : 1940 Account No.: [id number] Referring physician: Dr. Delacruz Chief complaint: Lung [...] with evening meal. 03/12/24 03/12/25 Yes Chris Dxion MD empagliflozin (Jardiance) 10 mg Take 1 [...] rales CARDIOVASCULAR: Re (more content not included)... [facility] 03-10-2024 Note [facility] [facility] Subjective Khadar Dawn is a [...] extremities. PSYCH: gloria (more content not included)... [facility] 03-03-2024 Note SINGLE CHAMBER PACEM CRUZITO IMPLANT PROCEDURE NOTE DATE OF PROCEDURE: 03/03/2024 PERFORMING PHYSICIAN: Dr. Aaron Rivas CONSENT: Patient LOCATION: EP Lab PROCEDURE PERFORMED: 1. Implantation of pacemaker ([employer]) 2. Ultrasound guided venous access INDICATIONS: [...] using modified seldinger technique using a 5 Gabonese micro-puncture needle on one occasion and 0.35 [...] for the device above the muscle. 6 Gabonese Safesheaths were placed over the wire. An active fixation [employer] pacing lead was then delivered through the 6Fsheath to the right ventricle. After confirmation of lead position on orthogonal views (GODINEZ and JOSE DE JESUS) to confirm septal position, the screw was [...] any concerns. Aaron Rivas MD Cardiac Electrophysiology [facility] 03-03-2024 Note Patient: Khadar cox Procedure Information Date/Time: 03/03/24 1130 Procedure: Implant PPM - [employer] Location: [facility] FINISHER CARD TENDER 1 EP / [facility] (Cath) Providers: Aaron Rivas MD Clinical information reviewed: Allergies Meds Physical Exam Airway Mallampati: II TM distance: >3 FB Neck ROM: full Cardiovascular Dental Pulmonary Abdominal Anesthesia Plan ASA 3 CSE Anesthetic plan and risks discussed with patient. Use of blood products discussed with patient who. Additional Equipment Requests [facility] 02-22-2024 Note Today I reviewed pat [...] Dr. Rivas next time he is in [place] office 03/18/2024. The patient was advised to come to the emergency room immediately if he has any dizziness. [facility] 02-08-2024 Note [facility] Subjective Khadar Dawn is a 83 y.o. year old male patient being seen for Hospital Follow-up (He was admitted to [facility] last month for CHF. Say he's [...] prostatic hyperplasia) BPH with urinary obstruction Diabetes ([facility]/HCC) Elevated PSA Exudative age-related macular degeneration of right eye with active choroidal neovascularization ([facility]/HCC) Glycosuria Gross hematuria Hypertension Nocturia Primary open [...] Past Medical History: Diagnosis Date Atrial fibrillation ([facility]/HCC) CHF (congestive heart failure) ([facility]/HCC) Coronary artery disease Diabetes mellitus ([facility]) Hyperkalemia Hyperlipidemia Hypertension Past Surgical [...] and other tests (more content not included)... [facility] 11-27-2023 Note Right Eye Reliability was good. Progression has been stable. Foveal threshold was normal. Findings include normal observations. Left Eye Reliability was good. Progression has been stable. Foveal threshold was normal. Findings include central scotoma. [facility] 11-27-2023 Note Right Eye Quality was good. Scan locations included subfoveal. Progression has been stable. Findings include abnormal foveal contour. Left Eye Quality was good. Scan locations included subfoveal. Progression has been stable. Findings include abnormal foveal contour, subretinal scarring. 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 Follow these instructions at home: Take rswz-bri-hgegzum and prescription medicines only as told by [...] provider. Document Revised: 09/07/2021 Document Reviewed: 09/07/2021 Elsevier Patient Education 2022 [employer] Follow Up Care 12/11/2022 11:11:41 With:ALFIE WISE, Yousuf Barroso, URL Address: [address] [place] [address]- When: Unknown [facility] 10-19-2023 Note Patient Education Urology Benign [...] Follow these instructions at home: ? Take mrgo-jmn-iiwwjdg and prescription medicines only as told by [...] develop side effec (more content not included)... [facility] 09-25-2023 Note Patient here for [...] All other systems reviewed and are negative. [facility] 09-25-2023 Note Cardiovascular Medic [facility] SUBJECTIVE Chief Complaint Patient presents [...] Final QTC CALCULATION(BAZETT) 08/03/2020 428 ms Final R-[place] 08/03/2020 -82 degrees Final T Wave [place] 06 (more content not included)... [facility] 10-17-2022 Hospital Discharge instructions Patient Education [...] With:Yousuf JUDGE Address: [facility] [address] , [place] [address]- Business (1) When: Unknown Comments:Office will call to schedule follow up [facility] 10-13-2022 Hospital Discharge instructions Patient Education 10/13/2022 [...] urethra. Follow these instructions at home: Take ncfe-xvr-xgqymmc and prescription medicines only as told by [...] provider. Document Revised: 09/07/2021 Document Reviewed: 09/07/2021 [employer] Patient Education 2022 [employer] Follow Up Care 04/25/2021 10:27:16 With:ALFIE WISE, Yousuf Barroso, URL Address: [facility] [address] , [place] [address]- When: Unknown Comments:sched Cysto. [facility] Evaluation + Plan note Future Appointments Appointment Date:10/16/2022 10:45:00 AM Scheduled Provider: Location:[facility] Appointment Type:Urology CALL PAT FT Appointment Date:10/17/2022 10:00:00 AM Scheduled Provider: Location:[facility] Appointment Type:Urology FT Diagnostic Tests PendingPSA Total 10/13/22 [facility] Evaluation + Plan note Future Appointments Appointment Date:10/20/2024 10:30:00 AM Scheduled Provider:Yousuf JUDGE MD Location:[facility] Appointment Type:URO Office Visit Diagnostic Tests PendingPSA Total 09/02/24 [facility] Evaluation note Diagnosis Primary open angle glaucoma (POAG) of both eyes, mild stage (CMS/HCC)- Primary 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) Age-related nuclear cataract of both eyes 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 documented in this encounter [facility] HealthcareEvaluation note* Diagnosis Atrial fibrillation, unspecified type (HCC)- Primary Malignant neoplasm of lung, unspecified laterality, unspecified part of lung (HCC) [facility] Malignant neoplasm of lung, unspecified laterality, unspecified part of lung (HCC)- Primary [facility] Diagnosis Malignant neoplasm of lung, unspecified laterality, unspecified part of lung (HCC)- Primary [facility] Diagnosis Malignant neoplasm of unspecified part of unspecified bronchus or lung (HCC)- Primary [facility] noteNo assessment information availableSelect Medical [facility], [facility] Work Phone: Evaluation note* Diagnosis Malignant neoplasm of lung, unspecified laterality, unspecified part of lung (HCC)- Primary [facility] Diagnosis Malignant neoplasm of unspecified part of unspecified bronchus or lung (HCC) [facility] Primary open angle glaucoma (POAG) of both eyes, mild stage (CMS/HCC) documented in this encounter [facility] HealthcareEvaluation note* Diagnosis 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)- Primary Primary open angle glaucoma (POAG) of both eyes, 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 Age-related nuclear cataract of both eyes [facility] Narrative No data available for this section [facility] progress note No data available for this section [facility] Summary Purpose Family History No Family [...] Reason for Visit Chief Complaint Admit Date C3.90 April 22, 2024 7:56am Chief Complaint Admit Date C3April 22, 2024 7:56am Unknown May 14, 2024 5:2 9pm Additional Source Comments (unrecognized sect ion and content) No Status Records FoundNo Status Records FoundNo Status Records FoundNo Status Records FoundNo Status Records FoundNo Status Records FoundNo Status Records FoundNo Status Records Found INFORMATION SOURCE (unrecogn ized section and content) DATE CREATED AUTHOR 08/09/2020 [facility] DATE CREATED AUTHOR AUTHOR'S ORGANIZ ATION 04/22/2022 [facility] DATE CREATED AUTHOR AUTHOR'S ORGANIZ ATION 10/21/2023 [facility] DATE CREATED AUTHOR AUTHOR'S ORGANIZ ATION 05/18/2024 [facility] DATE CREATED AUTHOR AUTHOR'S ORGANIZ ATION 05/27/2024 [facility] DATE CREATED AUTHOR AUTHOR'S ORGANIZ ATION 06/08/2024 [facility] DATE CREATED AUTHOR AUTHOR'S ORGANIZ ATION 06/15/2024 Tanya Baltazar lizy DATE CREATED AUTHOR AUTHOR'S ORGANIZ ATION 06/19/2024 [facility] EPIC Patient Care team informatio n (unrecognized section and content) Teacher Vocational Training Relationship Specialty Start Date End Date Josy Delacruz MD PCP - General Family Medicine 05/26/14 Teacher Vocational Training Relationship Specialty Start Date End Date Josy Delacruz MD PCP - General Family Medicine 05/26/14 Teacher Vocational Training Relationship Specialty Start Date End Date Josy Delacruz MD PCP - General Family Medicine 05/26/14 Teacher Vocational Training Relationship Specialty Start Date End Date Josy Delacruz MD PCP - General Family Medicine 05/26/14 Teacher Vocational Training Relationship Specialty Start Date End Date Josy Delacruz MD PCP - General Family Medicine 05/26/14 Teacher Vocational Training Relationship Specialty Start Date End Date Josy Delacruz MD PCP - General Family Medicine 05/26/14 Teacher Vocational Training Relationship Specialty Start Date End Date Josy Delacruz MD PCP - General Family Medicine 05/26/14 Team Status: Active Member Role Status Devan Delacruz MD Primary Care Provider Active Team Status: Inactive Member Role Status Devan Delacruz MD Primary Care Provider Active Start: April 22, 2024 End: April 22, 2024 Comfort Bradshaw MD Attending Provider Active Start: April 22, 2024 End: April 22, 2024 Teacher Vocational Training Relationship Specialty Start Date End Date Josy Delacruz MD PCP - General Family Medicine 05/26/14 Teacher Vocational Training Relationship Specialty Start Date End Date Josy Delacruz MD PCP - General Family Medicine 05/26/14 Team Status: Active Member Role Status Devan Delacruz MD Primary Care Provide r, Referring Provider Active Start: April 07, 2024 End: April 07, 2024 Charbel Malcolm DO Attending Provider Active Sta rt: April 07, 2024 End: April 07, 2024 Team Status: Inactive Member Role Status Dates Josy Delacruz MD Attending Provider Active Tato rt: May 14, 2024 End: May 14, 2024 Teacher Vocational Training Relationship Specialty Start Date End Date Josy Delacruz MD [address] [place] [id number] PCP - General Family Medicine 06/06/24 Reason for Visit (unrecogniz ed section and content) Reason Comments Eye Exam Glaucoma Macular Degeneration Cataract Reason Comments Patient Education Reason Comments Lung Cancer Reason Comments Thoracentesis Reason Onset Date Comments Simulation Request Form 04/23/2024 Reason Comments Sky Line Yarder - Other Reason Comments Future Appointment Sky Line Yarder - Other Pacemaker Check s During XRT Reason Comments Appointment Orders Reason Comments Radiology NM Specialty Diagnoses / Procedures Referred By Contac t Referred To Contact MOLECULAR & FUNCTIONAL IMAGING Diagnoses Malignant neoplasm of unspecified part of unspecified bronchus or lung (HCC) Procedures NM PET/CT SKULL-THIGH SUBSEQUENT PET IMAGING CT ATTENUATION SKULL BASE [place] [address] [place] [address] Phone: tel: Molecular Imaging [address] [place] [address] Phone: tel: Referral ID Status Reason Start Date Expiration Date V isits Requested Visits Authorized [id number] Closed Auto-Generate d Referral 04/26/2024 05/25/2025 1 1 Reason Onset Date Comments Med Refill 05/02/2024 Reason Comments Sky Line Yarder - Other Future Appointment Reason Comments Appointment Reason Comments Follow-up Blurred Vision Source Comments (unrecognize d section and content) In the event this informatio n is protected by the Federal Confidentiality of Alcohol and Drug Abuse Patient Records regulations: The Federal rules restrict any use of the information to criminally investigate or prosecute any alcohol or drug abuse patient.[facility] the event this information is protected by the Federal Confidentiality of Alcohol and Drug Abuse Patient Records regulations: The Federal rules restrict any use of the information to criminally investigate or prosecute any alcohol or drug abuse patient.[facility] the event this information is protected by the Federal Confidentiality of Alcohol and Drug Abuse Patient Records regulations: The Federal rules restrict any use of the information to criminally investigate or prosecute any alcohol or drug abuse patient.[facility] the event this information is protected by the Federal Confidentiality of Alcohol and Drug Abuse Patient Records regulations: The Federal rules restrict any use of the information to criminally investigate or prosecute any alcohol or drug abuse patient.[facility] the event this information is protected by the Federal Confidentiality of Alcohol and Drug Abuse Patient Records regulations: The Federal rules restrict any use of the information to criminally investigate or prosecute any alcohol or drug abuse patient.[facility] the event this information is protected by the Federal Confidentiality of Alcohol and Drug Abuse Patient Records regulations: The Federal rules restrict any use of the information to criminally investigate or prosecute any alcohol or drug abuse patient.[facility] HospitalIn the event this information is protected by the Federal Confidentiality of Alcohol and Drug Abuse Patient Records regulations: The Federal rules restrict any use of the information to criminally investigate or prosecute any alcohol or drug abuse patient.[facility] HospitalIn the event this information is protected by the Federal Confidentiality of Alcohol and Drug Abuse Patient Records regulations: The Federal rules restrict any use of the information to criminally investigate or prosecute any alcohol or drug abuse patient.[facility] the event this information is protected by the Federal Confidentiality of Alcohol and Drug Abuse Patient Records regulations: The Federal rules restrict any use of the information to criminally investigate or prosecute any alcohol or drug abuse patient.[facility] the event this information is protected by the Federal Confidentiality of Alcohol and Drug Abuse Patient Records regulations: The Federal rules restrict any use of the information to criminally investigate or prosecute any alcohol or drug abuse patient.[facility] Hospital[facility] the event this information is protected by the Federal Confidentiality of Alcohol and Drug Abuse Patient Records regulations: The Federal rules restrict any use of the information to criminally investigate or prosecute any alcohol or drug abuse patient.[facility] Hospital[facility] the event this information is protected by the Federal Confidentiality of Alcohol and Drug Abuse Patient Records regulations: The Federal rules restrict any use of the information to criminally investigate or prosecute any alcohol or drug abuse patient.[facility] HospitalIn the event this information is protected by the Federal Confidentiality of Alcohol and Drug Abuse Patient Records regulations: The Federal rules restrict any use of the information to criminally investigate or prosecute any alcohol or drug abuse patient.[facility] HospitalIn the event this information is protected by the Federal Confidentiality of Alcohol and Drug Abuse Patient Records regulations: The Federal rules restrict any use of the information to criminally investigate or prosecute any alcohol or drug abuse patient.[facility] HospitalIn the event this information is protected by the Federal Confidentiality of Alcohol and Drug Abuse Patient Records regulations: The Federal rules restrict any use of the information to criminally investigate or prosecute any alcohol or drug abuse patient.[facility] Goals (unrecognized section and content) [...] BE BASED ON THE PRIMARY CLINICAL RECORDS. [facility] [employer] [facility]. provides no warranty or guarantee of the accuracy or completeness of information in this document.
[2024-06-23 12:33] LABS: Hematocrit 37.8 % (42.0-54.0); Hemoglobin 12.3 g/dL (14.0-18.0); Mean Corpuscular HGB Conc 32.5 g/dL (29.9-35.2); Mean Corpuscular Hemoglobin 30.1 pg (25.9-34.0); Mean Corpuscular Volume 92.4 fL (80.0-94.0); Mean Platelet Volume 10.5 fL (9.5-13.5); Platelet Count 227 10^3/uL (150-450); Red Blood Count 4.09 10^6/uL (4.70-6.10); Red Cell Distribution Width 16.1 % (11.0-15.0); White Blood Count 8.8 10^3/uL (4.0-11.0)
[2024-06-23 13:00] LABS: Alanine Aminotransferase 30 U/L (16-63); Albumin Level 3.1 g/dL (3.4-5.0); Alkaline Phosphatase 76 U/L (46-116); Anion Gap 11.6; Aspartate Amino Transferase 22 U/L (15-37); BUN Creatinine Ratio 17.3; Bilirubin Total 0.6 mg/dL (0.2-1.0); Calcium 9.6 mg/dL (8.5-10.1); Carbon Dioxide 34.7 mmol/L (21.0-32.0); Chloride 101 mmol/L (98-107); Estimated GFR (African America >60 (>=60 mL/min/1.73m^2); Estimated GFR (Non-African Ame >60 (>=60 mL/min/1.73m^2); Globulin 3.1 g/dL; Glucose 153 mg/dL (74-106); Potassium 4.3 mmol/L (3.5-5.1); Sodium 143 mmol/L (136-145); Total Protein 6.2 g/dL (6.4-8.2)
[2024-06-23 13:08] LABS: Eosinophils Absolute Manual 0.08 10^3/uL (0.00-0.70); Lymphocytes Absolute Manual 0.61 10^3/uL (1.20-3.80); Monocytes Absolute Manual 0.96 10^3/uL (0.30-0.80); Segmented Neut Absolute Manual 7.12 10^3/uL (1.4-6.5)
[2024-06-25 19:41] LABS: A. calcoaceticus-baumannii Cpx NOT DETECTED (NOT DETECTE); Bacteroides fragilis NOT DETECTED (NOT DETECTE); Candida albicans NOT DETECTED (NOT DETECTE); Candida auris NOT DETECTED (NOT DETECTE); Candida glabrata NOT DETECTED (NOT DETECTE); Candida krusei NOT DETECTED (NOT DETECTE); Candida parapsilosis NOT DETECTED (NOT DETECTE); Candida tropicalis NOT DETECTED (NOT DETECTE); Cryptococcus neoformans/gattii NOT DETECTED (NOT DETECTE); Enterobacter cloacae complex NOT DETECTED (NOT DETECTE); Enterobacterales NOT DETECTED (NOT DETECTE); Enterococcus faecalis NOT DETECTED (NOT DETECTE); Enterococcus faecium NOT DETECTED (NOT DETECTE); Haemophilus influenzae NOT DETECTED (NOT DETECTE); Klebsiella aerogenes NOT DETECTED (NOT DETECTE); Klebsiella pneumoniae group NOT DETECTED (NOT DETECTE); Listeria monocytogenes NOT DETECTED (NOT DETECTE); Neisseria meningitidis NOT DETECTED (NOT DETECTE); Proteus spp. NOT DETECTED (NOT DETECTE); Pseudomonas aeruginosa NOT DETECTED (NOT DETECTE); Salmonella spp. NOT DETECTED (NOT DETECTE); Serratia marcescens NOT DETECTED (NOT DETECTE); Staphylococcus epidermidis NOT DETECTED (NOT DETECTE); Staphylococcus lugdunensis NOT DETECTED (NOT DETECTE); Staphylococcus spp. NOT DETECTED (NOT DETECTE); Stenotrophomonas maltophilia NOT DETECTED (NOT DETECTE); Streptococcus agalactiae NOT DETECTED (NOT DETECTE); Streptococcus pneumoniae NOT DETECTED (NOT DETECTE); Streptococcus pyogenes NOT DETECTED (NOT DETECTE); Streptococcus spp. NOT DETECTED (NOT DETECTE)
[2024-06-25 20:57] LABS: Source BLOOD
== END 2024-06-23 12:11 | disposition home or self-care (01) ==
LOC: LAB 12:11
PROVIDERS: PCP Family Medicine; Visit Provider Family Medicine
DX: I11.0 Hypertensive heart disease with heart failure (principal); I50.23 Acute on chronic systolic (congestive) heart failure; I50.30 Unspecified diastolic (congestive) heart failure
CPT/HCPCS: 36415; 36592; 80053; 83880; 85007; 85027; 87040; 87077; 87150

== ENCOUNTER 2024-07-02 07:42 | Outpatient (RCR) | payer MEDICARE, SELFPAY ==
[2024-06-24 10:00] VITALS: BP 144/68; PULSE 62; TEMP 36.1; O2SAT 90
[2024-06-24 10:20] LABS: Hematocrit 36.3 % (42.0-54.0); Hemoglobin 11.4 g/dL (14.0-18.0); Mean Corpuscular HGB Conc 31.4 g/dL (29.9-35.2); Mean Corpuscular Hemoglobin 29.3 pg (25.9-34.0); Mean Corpuscular Volume 93.3 fL (80.0-94.0); Mean Platelet Volume 10.8 fL (9.5-13.5); Platelet Count 254 10^3/uL (150-450); Red Blood Count 3.89 10^6/uL (4.70-6.10); Red Cell Distribution Width 16.1 % (11.0-15.0); White Blood Count 8.8 10^3/uL (4.0-11.0)
[2024-06-24 10:39] LABS: Alanine Aminotransferase 31 U/L (16-63); Albumin Globulin Ratio 0.9; Albumin Level 2.8 g/dL (3.4-5.0); Alkaline Phosphatase 70 U/L (46-116); Anion Gap 8.2; Aspartate Amino Transferase 19 U/L (15-37); BUN Creatinine Ratio 15.8; Bilirubin Total 0.5 mg/dL (0.2-1.0); Calcium 9.4 mg/dL (8.5-10.1); Carbon Dioxide 34.5 mmol/L (21.0-32.0); Chloride 101 mmol/L (98-107); Estimated GFR (African America >60 (>=60 mL/min/1.73m^2); Estimated GFR (Non-African Ame 58 (>=60 mL/min/1.73m^2); Glucose 230 mg/dL (74-106); Potassium 4.7 mmol/L (3.5-5.1); Sodium 139 mmol/L (136-145); Total Protein 5.8 g/dL (6.4-8.2)
[2024-06-24 10:47] LABS: Magnesium 1.4 mg/dL (1.8-2.4); Thyroid Stimulating Hormone 2.172 uIU/mL (0.358-3.740)
--- NOTE | 2024-06-24 11:17 | PC.NURSE ---
1100: Dr. Rodriguez in to see pt. Reviews labs with pt. and . OK to proceed with treatment. Both relay understanding.
[2024-06-24] MEDS: 0.9 % SODIUM CHLORIDE 250 ML 10 ML IV (12:11)
[2024-06-24] MEDS: MAGNESIUM SULFATE IN WATER 2 GM/50 ML PREMIX IV (12:11)
[2024-06-24] MEDS: CALCIUM CARBONATE 500 MG (200MG ELEMENTAL) TAB CHEW 1000 MG PO (12:12)
[2024-06-24] MEDS: PALONOSETRON HCL 0.25 MG/5 ML VIAL IV (12:55)
--- NOTE | 2024-06-24 12:57 | PC.NURSE ---
1211: IV magnesium initiated as ordered. Eating lunch. Denies c/o. remains at chairside.
[2024-06-24] MEDS: APREPITANT 130 MG in 0.9 % SODIUM CHLORIDE 100 ML 236 MG IV (13:15)
--- NOTE | 2024-06-24 13:30 | PC.NURSE ---
1315: Pre-infusion meds initiated at this time. Pt resting quietly with eyes closed. Resps even and non-labored.
[2024-06-24] MEDS: DEXAMETHASONE SODIUM PHOSPHATE 8 MG in 0.9 % SODIUM CHLORIDE 100 ML 306 MG IV (13:46)
--- NOTE | 2024-06-24 13:50 | PC.NURSE ---
1350: Pre-meds cont to infuse without difficulty or s&s of adverse reaction.
[2024-06-24] MEDS: SODIUM CHLORIDE 0.9% IV (14:09)
[2024-06-24] MEDS: PEMETREXED DISODIUM IV (14:09)
[2024-06-24] MEDS: FUROSEMIDE 20 MG/2 ML VIAL 10 MG IV (14:20)
--- NOTE | 2024-06-24 14:22 | PC.NURSE ---
1409: IV Franicnecaayden initiated at this time. Pt. up to bathroom to void.
[2024-06-24 14:25] VITALS: BP 115/60; PULSE 60; TEMP 36.6; O2SAT 89
--- NOTE | 2024-06-24 14:36 | PC.NURSE ---
Alimta completed without s&s of adverse reaction. VSS. IV Carboplatin initiated.
[2024-06-24] MEDS: CEMIPLIMAB-RWLC 350 MG in 0.9 % SODIUM CHLORIDE 100 ML 214 MG IV (15:00)
--- NOTE | 2024-06-24 15:09 | PC.NURSE ---
Pt. cont. to tolerate chemo infusions without s&s of adverse reactions. Very drowsy, sleeping without s&s of distress.
[2024-06-24 15:39] VITALS: BP 116/70; PULSE 61; TEMP 36.4; O2SAT 91
[2024-07-01 10:06] LABS: Hematocrit 31.3 % (42.0-54.0); Hemoglobin 10.2 g/dL (14.0-18.0); Mean Corpuscular HGB Conc 32.6 g/dL (29.9-35.2); Mean Corpuscular Hemoglobin 30.2 pg (25.9-34.0); Mean Corpuscular Volume 92.6 fL (80.0-94.0); Mean Platelet Volume 10.9 fL (9.5-13.5); Platelet Count 133 10^3/uL (150-450); Red Blood Count 3.38 10^6/uL (4.70-6.10); Red Cell Distribution Width 15.9 % (11.0-15.0); White Blood Count 1.4 10^3/uL (4.0-11.0)
[2024-07-01 10:24] LABS: Alanine Aminotransferase 33 U/L (16-63); Albumin Level 2.7 g/dL (3.4-5.0); Alkaline Phosphatase 70 U/L (46-116); Anion Gap 8.2; Aspartate Amino Transferase 17 U/L (15-37); BUN Creatinine Ratio 23.2; Bilirubin Total 0.7 mg/dL (0.2-1.0); Calcium 8.8 mg/dL (8.5-10.1); Carbon Dioxide 34.4 mmol/L (21.0-32.0); Chloride 103 mmol/L (98-107); Estimated GFR (African America >60 (>=60 mL/min/1.73m^2); Estimated GFR (Non-African Ame >60 (>=60 mL/min/1.73m^2); Globulin 2.8 g/dL; Glucose 163 mg/dL (74-106); Potassium 4.6 mmol/L (3.5-5.1); Sodium 141 mmol/L (136-145); Total Protein 5.5 g/dL (6.4-8.2)
--- NOTE | 2024-07-01 10:38 | PC.NURSE ---
pulled blood for labs and changed cap after lab draw for this patient. Patient tolerated well. After visit with Dr Maguire PiCC line was removed area cleansed and covered after removal with 2 x 2 and tegaderm. Patient tolerated well.
[2024-07-01 10:39] LABS: Basophils Abs Manual 0.01 10^3/uL (0.00-0.10); Eosinophils Absolute Manual 0.05 10^3/uL (0.00-0.70); Lymphocytes Absolute Manual 0.22 10^3/uL (1.20-3.80); Monocytes Absolute Manual 0.02 10^3/uL (0.30-0.80); Segmented Neut Absolute Manual 1.07 10^3/uL (1.4-6.5)
[2024-07-01 10:40] LABS: Ovalocytes 1+
[2024-07-02 10:04] VITALS: BP 116/66; PULSE 73; TEMP 36.3; O2SAT 95
[2024-07-02] MEDS: FILGRASTIM-SNDZ 300 MCG/0.5 ML SYRINGE SUBQ (10:13)
== END 2024-07-02 23:59 | disposition home or self-care (01) ==
LOC: HEMC 07:42
PROVIDERS: PCP Family Medicine; Visit Provider Internal Medicine Hematology & Oncology
DX: Z51.11 Encounter for antineoplastic chemotherapy (principal); C34.12 Malignant neoplasm of upper lobe, left bronchus or lung; R59.0 Localized enlarged lymph nodes; Z79.899 Other long term (current) drug therapy; Z87.891 Personal history of nicotine dependence; J44.9 Chronic obstructive pulmonary disease, unspecified; I50.9 Heart failure, unspecified; Z95.0 Presence of cardiac pacemaker; Z99.81 Dependence on supplemental oxygen; Z85.46 Personal history of malignant neoplasm of prostate
CPT/HCPCS: 36415; 36592; 80053; 83735; 84443; 85007; 85025; 85027; 87040; 96367; 96372; 96375; 96413; 96417; G0463; J0185; J1100; J1938; J2469; J3475; J9045; J9119; J9305; Q5101

== ENCOUNTER 2024-07-11 10:41 | Outpatient (OUT) | payer MEDICARE, SELFPAY ==
[2024-07-11 11:13] LABS: Anion Gap 5.6; BUN Creatinine Ratio 18.3; Calcium 8.6 mg/dL (8.5-10.1); Carbon Dioxide 35.9 mmol/L (21.0-32.0); Chloride 100 mmol/L (98-107); Estimated GFR (African America >60 (>=60 mL/min/1.73m^2); Estimated GFR (Non-African Ame >60 (>=60 mL/min/1.73m^2); Glucose 116 mg/dL (74-106); Potassium 3.5 mmol/L (3.5-5.1); Sodium 138 mmol/L (136-145)
== END 2024-07-11 10:42 | disposition home or self-care (01) ==
LOC: LAB 10:41
PROVIDERS: PCP Family Medicine; Visit Provider Internal Medicine Cardiovascular Disease
DX: I50.42 Chronic combined systolic (congestive) and diastolic (congestive) heart failure (principal)
CPT/HCPCS: 36415; 80048

== ENCOUNTER 2024-07-23 07:40 | Outpatient (RCR) | payer MEDICARE, SELFPAY ==
[2024-07-03 10:32] VITALS: BP 104/66; PULSE 65; TEMP 36.6; O2SAT 91
[2024-07-03] MEDS: FILGRASTIM-SNDZ 300 MCG/0.5 ML SYRINGE SUBQ (10:38)
[2024-07-15 09:53] LABS: Hematocrit 29.7 % (42.0-54.0); Hemoglobin 9.5 g/dL (14.0-18.0); Mean Corpuscular Hemoglobin 30.2 pg (25.9-34.0); Mean Corpuscular Volume 94.3 fL (80.0-94.0); Mean Platelet Volume 9.9 fL (9.5-13.5); Platelet Count 546 10^3/uL (150-450); Red Blood Count 3.15 10^6/uL (4.70-6.10); Red Cell Distribution Width 17.2 % (11.0-15.0); White Blood Count 7.7 10^3/uL (4.0-11.0)
[2024-07-15 10:05] LABS: Anisocytosis 2+; Band Neutrophils Absolute 0.2 10^3/uL (0.0-0.3); Basophils Abs Manual 0.07 10^3/uL (0.00-0.10); Eosinophils Absolute Manual 0.15 10^3/uL (0.00-0.70); Lymphocytes Absolute Manual 0.23 10^3/uL (1.20-3.80); Metamyelocytes Absolute Manual 0.07; Monocytes Absolute Manual 0.07 10^3/uL (0.30-0.80); Myelocytes Absolute Manual 0.07; Segmented Neut Absolute Manual 6.77 10^3/uL (1.4-6.5)
[2024-07-15 10:06] LABS: Ovalocytes 2+
[2024-07-15 10:17] LABS: Alanine Aminotransferase 45 U/L (16-63); Albumin Globulin Ratio 0.9; Albumin Level 2.8 g/dL (3.4-5.0); Alkaline Phosphatase 82 U/L (46-116); Anion Gap 8.2; Aspartate Amino Transferase 22 U/L (15-37); BUN Creatinine Ratio 15.3; Bilirubin Total 0.7 mg/dL (0.2-1.0); Calcium 8.8 mg/dL (8.5-10.1); Carbon Dioxide 36.8 mmol/L (21.0-32.0); Chloride 104 mmol/L (98-107); Estimated GFR (African America >60 (>=60 mL/min/1.73m^2); Estimated GFR (Non-African Ame 56 (>=60 mL/min/1.73m^2); Glucose 136 mg/dL (74-106); Magnesium 1.6 mg/dL (1.8-2.4); Sodium 145 mmol/L (136-145); Thyroid Stimulating Hormone 1.301 uIU/mL (0.358-3.740); Total Protein 5.8 g/dL (6.4-8.2)
--- NOTE | 2024-07-15 10:47 | PC.NURSE ---
Reports Analyst in and speaks with and patient. Labs reviewed with patient. 1045 IV dc'd. patient discharged ambulatory
--- NOTE | 2024-07-15 12:29 | NUTR.NU ---
Nutrition education provided this date for pt Ar López and . Provided handouts: ?Planning Healthy Meals,? ?Foods High in Iron,? and ?Ways to Increase Calorie Intake During Cancer Treatment.? Also provided Ensure and Glucerna coupons and Dietitian contact information. Will follow up next Sunday during pt's INF appointment.
[2024-07-18 12:05] LABS: Percent Iron Saturation 18.9 %
[2024-07-22 09:44] VITALS: BP 190/80; PULSE 88; TEMP 36.4; O2SAT 96
[2024-07-22 10:02] LABS: Hemoglobin 10.4 g/dL (14.0-18.0); Mean Corpuscular HGB Conc 31.5 g/dL (29.9-35.2); Mean Corpuscular Hemoglobin 30.9 pg (25.9-34.0); Mean Corpuscular Volume 97.9 fL (80.0-94.0); Platelet Count 563 10^3/uL (150-450); Red Blood Count 3.37 10^6/uL (4.70-6.10); Red Cell Distribution Width 19.9 % (11.0-15.0); White Blood Count 12.6 10^3/uL (4.0-11.0)
[2024-07-22 10:14] LABS: Alanine Aminotransferase 25 U/L (16-63); Albumin Globulin Ratio 0.9; Alkaline Phosphatase 80 U/L (46-116); Aspartate Amino Transferase 22 U/L (15-37); BUN Creatinine Ratio 19.5; Bilirubin Total 0.6 mg/dL (0.2-1.0); Calcium 9.4 mg/dL (8.5-10.1); Carbon Dioxide 35.7 mmol/L (21.0-32.0); Chloride 100 mmol/L (98-107); Estimated GFR (African America >60 (>=60 mL/min/1.73m^2); Estimated GFR (Non-African Ame 59 (>=60 mL/min/1.73m^2); Globulin 3.2 g/dL; Glucose 194 mg/dL (74-106); Potassium 4.7 mmol/L (3.5-5.1); Sodium 142 mmol/L (136-145); Total Protein 6.2 g/dL (6.4-8.2)
[2024-07-22 10:22] LABS: Magnesium 1.8 mg/dL (1.8-2.4); Thyroid Stimulating Hormone 1.882 uIU/mL (0.358-3.740)
[2024-07-22 10:25] LABS: Basophils Abs Manual 0.12 10^3/uL (0.00-0.10); Lymphocytes Absolute Manual 0.63 10^3/uL (1.20-3.80); Monocytes Absolute Manual 2.52 10^3/uL (0.30-0.80); Nucleated Red Blood Cells 1; Segmented Neut Absolute Manual 9.32 10^3/uL (1.4-6.5)
[2024-07-22 10:26] LABS: Anisocytosis 2+
[2024-07-22] MEDS: PALONOSETRON HCL 0.25 MG/5 ML VIAL IV (11:33)
[2024-07-22] MEDS: DEXAMETHASONE SODIUM PHOSPHATE 8 MG in 0.9 % SODIUM CHLORIDE 100 ML 302.4 MG IV (11:34)
[2024-07-22] MEDS: APREPITANT 130 MG in 0.9 % SODIUM CHLORIDE 100 ML 236 MG IV (12:00)
--- NOTE | 2024-07-22 12:03 | PC.NURSE ---
1115: Dr. Rodriguez in to see pt. at chairside. Labs reviewed. 1133: Pre-chemo meds initiated at this time. IV site clear. Denies c/o or needs. Up to bathroom to void.
[2024-07-22] MEDS: PEMETREXED DISODIUM IV (12:45)
[2024-07-22] MEDS: SODIUM CHLORIDE 0.9% IV (12:45)
--- NOTE | 2024-07-22 13:17 | PC.NURSE ---
Pt. tolerating chemo infusions without s&s of adverse reactions. Eating lunch without c/o n/v. at chairside.
[2024-07-22 13:19] VITALS: BP 194/45; PULSE 58; TEMP 36.8; O2SAT 96
[2024-07-22] MEDS: CEMIPLIMAB-RWLC 350 MG in 0.9 % SODIUM CHLORIDE 100 ML 214 MG IV (13:32)
[2024-07-22 14:15] VITALS: BP 188/90; PULSE 62; TEMP 36.8; O2SAT 93
[2024-07-23 09:54] VITALS: BP 164/70; PULSE 60; TEMP 36.3; O2SAT 97
[2024-07-23] MEDS: PEGFILGRASTIM-JMDB 6 MG/0.6 ML SYRINGE SQ (10:00)
== END 2024-07-31 23:59 | disposition home or self-care (01) ==
LOC: HEMC 07:40
PROVIDERS: PCP Family Medicine; Visit Provider Internal Medicine Hematology & Oncology
DX: Z51.11 Encounter for antineoplastic chemotherapy (principal); C34.12 Malignant neoplasm of upper lobe, left bronchus or lung; R59.0 Localized enlarged lymph nodes; D70.1 Agranulocytosis secondary to cancer chemotherapy; Z79.899 Other long term (current) drug therapy; D64.81 Anemia due to antineoplastic chemotherapy; Z87.891 Personal history of nicotine dependence; J44.9 Chronic obstructive pulmonary disease, unspecified; I50.9 Heart failure, unspecified; Z95.0 Presence of cardiac pacemaker; Z99.81 Dependence on supplemental oxygen; Z95.5 Presence of coronary angioplasty implant and graft; I11.0 Hypertensive heart disease with heart failure; E11.9 Type 2 diabetes mellitus without complications; Z79.84 Long term (current) use of oral hypoglycemic drugs; R09.02 Hypoxemia; K86.89 Other specified diseases of pancreas
CPT/HCPCS: 36415; 80053; 82728; 83540; 83550; 83735; 84443; 85007; 85027; 96367; 96372; 96375; 96411; 96413; 96417; G0463; J0185; J1100; J2469; J9045; J9119; J9305; Q5101; Q5108

== ENCOUNTER 2024-07-27 12:20 | Inpatient (IN) | payer MEDICARE, SELFPAY ==
--- OUTSIDE RECORDS SUMMARY | 2024-07-18 10:47 | XMS_ITS ---
Author Name Auto Generated Organization OHIP Support Name Relationship Address Phone SUREKHA DAWN Next of Kin Unknown [phone] LÓPEZ, SUREKHA Next of Kin Unknown [phone] LÓPEZ, SUREKHA Next of Kin Unknown [phone] Roshan Dawnet Next of Kin [address] [place] [phone] + LÓPEZ, SUREKHA Next of Kin Unknown [phone] López, Surekha Next of Kin [address] [place] [phone] + LÓPEZ, SUREKHA Next of Kin Unknown [phone] VOLAIAR, SUREKHA Next of Kin Unknown [phone] VOLAIAR, SUREKHA Next of Kin Unknown [phone] VOLAIAR, SUREKHA Next of Kin Unknown [phone] VOLLMAR, SUREKHA Next of Kin Unknown [phone] VOLAIAR, SUREKHA Next of Kin Unknown [phone] VOLLMAR, SUREKHA Next of Kin Unknown [phone] VOLLMAR, SUREKHA Next of Kin Unknown [phone] VOLLMAR, SUREKHA Next of Kin Unknown [phone] VOLAIAR, SUREKHA Next of Kin Unknown [phone] VOLLMAR, SUREKHA Next of Kin Unknown [phone] VOLLMAR, SUREKHA Next of Kin Unknown [phone] Care Team Providers Care Outdoor Illuminating Engineer Name Role Phone CARA PEREZ Attending Unavailable AARON RIVAS Referring Unavailable AARON RIVAS Referring Unavailable AARON RIVAS Referring Unavailable CHRIS DIXON Attending Unavailable JACKY BRIGGS Attending Unavailable CHRIS DIXON Attending Unavailable CHRIS DIXON Attending Unavailable CHRIS DIXON Attending Unavailable AARON RIVAS Admitting Unavailable AARON RIVAS Attending Unavailable OMBALLI, CARA Referring Unavailable OMBALLI, MOHAMED Referring Unavailable OMBALLI, NICOLASAMED Attending Unavailable OMBALLI, MOHAMED Referring Unavailable UBEROI, RAVINDERA Referring Unavailable OMBALLI, MOHAMED Referring Unavailable OMBALLI, MOHAMED Referring Unavailable KELY BORDEN Attending Unavailable ZAHLERKELY Attending Unavailable ZAHLERKELY Attending Unavailable Hoy, Josy M Admitting Unavailable Hoy, Josy M Attending Unavailable Jean GMaria D Fraire Admitting Unavailable Margoteler GMaria D Fraire Attending Unavailable Hoy, Josy M Primary Care Unavailable Yousuf JUDGE Attending Unavailable HOY, JOSY M Primary Care Unavailable HOY, JOSY M Referring Unavailable HOY, JOSY M Referring Unavailable HOY, JOSY M Primary Care Unavailable HOY, JOSY M Referring Unavailable HOY, JOSY M Primary Care Unavailable MICHAEL, MEETA Referring Unavailable ENGELER, G JUNO Attending Unavailable HOY, JOSY M Primary Care Unavailable ENGELER, G JUNO Referring Unavailable HOY, JOSY M Primary Care Unavailable ENGELER, G JUNO Referring Unavailable ENGELER, G JUNO Attending Unavailable HOY, JOSY M Primary Care Unavailable ENGELER, G JUNO Referring Unavailable ENGELER, G JUNO Attending Unavailable HOY, JOSY M Primary Care Unavailable ENGELER, G JUNO Referring Unavailable HOY, JOSY M Primary Care Unavailable PROBLEMS DATE TYPE CONDITION / CODE ATTENDING STATUS [facility] 02/08/2024 Admitting Diagnosis Chronic combined systolic (congestive) and diastolic (congestive) heart failure / I50.42(ICD-10) CHRIS DIXON Active [facility] 07/02/2024 Admitting Diagnosis Encounter for adjustment and management of other part of cardiac pacemaker / Z45.018(ICD-10) NA Active [facility] 06/13/2024 Admitting diagnosis Encounter for therapeutic drug level monitoring / Z51.81(ICD-10) Active [facility] 06/10/2024 Admitting diagnosis Bacteremia / R78.81(ICD-10) NA Active [facility] 05/05/2024 Admitting Diagnosis Presence of cardiac pacemaker / Z95.0(ICD-10) CHRIS DIXON Active [facility] 02/25/2024 Admitting Diagnosis Other specified heart block / I45.5(ICD-10) CHRIS DIXON Active [facility] 04/07/2022 Admitting Diagnosis Permanent atrial fibrillation / I48.21(ICD-10) CHRIS DIXON Active [facility] 04/07/2022 Admitting Diagnosis Mixed hyperlipidemia / E78.2(ICD-10) CHRIS DIXON Active [facility] 04/30/2024 Active Malignant neopla sm of unspecified part of unspecified bronchus or lung (HCC) / C34.90(ICD-10) NA Active [facility] 02/08/2024 Admitting Diagnosis Pulmonary hypertension, unspecified / I27.20(ICD-10) [facility] Active [facility] 02/08/2024 Admitting Diagnosis Other nonspecific abnormal finding of lung field / R91.8(ICD-10) ANA [facility] Active [facility] 03/20/2024 Admitting Diagnosis Centrilobular emphysema / J43.2(ICD-10) ANA [facility] 03/20/2024 Admitting Diagnosis Shortness of breath / R06.02(ICD-10) ANA [facility] Active [facility] 03/20/2024 Admitting Diagnosis Other forms of dyspnea / R06.09(ICD-10) [facility] Active [facility] 03/20/2024 Admitting Diagnosis Chronic respiratory failure with hypoxia / J96.11(ICD-10) [facility] 04/07/2022 Admitting Diagnosis Chronic atrial fibrillation, unspecified / I48.20(ICD-10) AARON RIVAS Active [facility] 02/08/2024 Admitting Diagnosis Nonrheumatic aortic (valve) stenosis / I35.0(ICD-10) CHRIS DIXON Active [facility] 10/23/2022 Admitting Diagnosis Type 2 diabetes mellitus without complications / E11.9(ICD-10) [facility] Active [facility] 04/07/2022 Admitting Diagnosis Hypertensive heart disease with heart failure / I11.0(ICD-10) [facility] Active [facility] 04/07/2022 Admitting Diagnosis Atherosclerotic heart disease of [place] coronary artery without angina pectoris / I25.10(ICD-10) [facility] Active [facility] 04/07/2022 Admitting Diagnosis Longstanding persistent atrial fibrillation / I48.11(ICD-10) [facility] Active [facility] 04/07/2022 Admitting Diagnosis Pure hypercholesterolemia, unspecified / E78.00(ICD-10) [facility] Active [facility] PROCEDURES No Procedure Records Found RESULTS 36 Observed: 07/22/2024 12:02 PM Status: COMPLETED Source: [facility] Oncology is calling, states pt bp is 200/81, he is seeing Dr kenney and will let us know TELEPHONE Observed: 07/21/2024 12:00 AM Status: COMPLETED Source: [facility] [id number] Khadar Dawn 1 04/18/1939 M Date Provider Department Center 07/21/2024 [facility] SIB[facility] Family History Problem Relation Age of Onset Other Father Coronary artery disease Brother Other Brother Family Status - Relation Status Age at Father Brother PROGRESS Observed: 07/04/2024 10:40 AM Status: COMPLETED Source: [facility] Cardiology - [facility] Subjective Khadar Dawn is a 84 y.o. year old male patient who is here for follow-up on congestive heart failure, A-fib, hypertension, and hyperlipidemia Patient Active Problem List Diagnosis Atrial fibrillation [...] (CMS/HCC) Nonrheumatic aortic valve stenosis Sinus pause Pacemaker HPI 07/04/2024 Patient is here today for follow-up visit. He states that he has been doing well from the cardiac point of view. He denies chest pain or shortness of breath. He is on oxygen. He has been receiving chemotherapy and last week he had a positive blood culture in 1 bottle of the 2 therefore PICC line was removed and repeat blood was performed and he was started on oral antibiotics. He denies any fever or chills or elevation in his white blood count. Last month the patient also had bacteremia and I was contacted to schedule him for SALVATORE but it was canceled because the patient was evaluated by ID and it was not felt that he is in need for SALVATORE. His symptoms resolved till up 1 week ago when he had positive blood culture for another organism as mentioned above. Next He continues to have legs edema which is little better after stopping amlodipine. He wears compression stockings regularly. He denies orthopnea or paroxysmal nocturnal dyspnea or dizziness or palpitation Has been having stomach ache therefore his PCP stopped some of his medications including lisinopril, atorvastatin, iron, and glimepiride. Documentation 05/21/2024 Dr. Kenney the patient's primary care physician send my office in [place] a message that patient has positive blood culture. He was in the hospital earlier this month with sepsis and pneumonia and also he was treated for congestive heart failure and apparently his blood culture came back to be positive. Dr. Kenney thinks that the patient needs SALVATORE. Will go ahead and schedule the patient for SALVATORE as soon as possible particularly that the patient has a pacemaker but also the patient needs to be evaluated by ID as soon as possible for further evaluation and treatment. Dr. Kenney was called with my recommendation 05/05/2024 Patient was admitted to the hospital [...] the history Past Medical History: Diagnosis Date Abnormal ECG Arrhythmia Atrial fibrillation (CMS/HCC) BPH (benign prostatic hyperplasia) CHF (congestive heart failure) (CMS/HCC) COPD (chronic obstructive pulmonary disease) (CMS/HCC) home oxygen 4 L Coronary artery disease Diabetes mellitus (CMS/HCC) Heart valve disease Hyperkalemia Hyperlipidemia Hypertension Macular degeneration of right eye POAG (primary open-angle glaucoma) Prostate cancer (CMS/HCC) Pulmonary hypertension (CMS/HCC) Past Surgical History: Procedure Laterality Date CARDIAC [...] No Known Allergies Medications Current Outpatient Medications: digoxin (Lanoxin) 250 MCG tab;et, Take 1 tablet by mouth in the morning., Disp: , Rfl: empagliflozin (Jardiance) 10 mg, Take 1 tablet (10 mg) by mouth in the morning., Disp: 30 tablet, Rfl: 2 furosemide (Lasix) 20 mg tablet, Take 40 mg by mouth two times daily., Disp: , Rfl: metFORMIN (Glucophage) 500 mg tablet, Take 500 mg by mouth with breakfast and with evening meal., Disp: , Rfl: metoprolol succinate XL (Toprol-XL) 100 mg 24 hr tablet, Take 1 tablet (100 mg) by mouth in the morning., Disp: 30 tablet, Rfl: 11 pantoprazole (ProtoNix) 40 mg EC tablet, Take 40 mg by mouth before breakfast., Disp: , Rfl: potassium chloride CR (Klor-Con) 10 mEq ER tablet, Take 10 mEq by mouth twice a day., Disp: , Rfl: rivaroxaban (Xarelto) 20 mg tablet, Take 20 mg by mouth once daily as directed., Disp: , Rfl: spironolactone (Aldactone) 25 mg tablet, Take 1 tablet (25 mg) by mouth in the morning., Disp: 30 tablet, Rfl: 11 atorvastatin (Lipitor) 80 mg tablet, Take 80 mg by mouth at bedtime., Disp: , Rfl: glimepiride (Amaryl) 4 mg tablet, Take 2 mg by mouth before breakfast., Disp: , Rfl: lisinopril 20 mg tablet, Take 20 mg by mouth in the morning., Disp: , Rfl: Objective Visit Vitals BP 158/78 (BP Location: Left arm, Patient Position: Sitting) Pulse 59 Ht 1.664 m (5' 5.5 ) Wt 65.8 kg (145 lb) SpO2 96% BMI 23.76 kg/m??? Smoking Status Former BSA 1.74 m??? Physical exam: GENERAL: alert and oriented x3, well developed, in no acute distress. HEAD: atraumatic, normocephalic. EYES: ZACHERY, EOMI. NECK: trachea midline, no JVD present, no carotid bruits present. CARDIAC: Irregular irregularity, S1, S2 present. . Systolic ejection murmur 3/6 at the aortic area. RESPIRATORY: CTAB, no increased effort of breathing, no rales, rhonchi, or wheezing. ABDOMEN: soft, nontender, nondistended. EXTREMITIES: Bilateral +2 edema. He has compression stockings on NEURO: strength/sensation equal and symmetric in bilateral upper and lower extremities. PSYCH: appropriate mood, affect, and judgement. Pacemaker incision appears to be very good and healing well without any swelling or hematoma or oozing or redness. Recent Labs 07/01/2024 White blood count 1.4, hemoglobin 10.2, hematocrit 31, platelets 133 Sodium 141, potassium 4.6, BUN 23, creatinine 0.99, GFR above 60, glucose 163, calcium 8.8 Total bilirubin 0.7, AST 17, ALT 33, alk phos 70, total protein 5.5, albumin 2.7 02/29/2024 Sodium 139, potassium 4, BUN 14, creatinine 1.13, GFR above 60, glucose 245, calcium 9.1 Total bilirubin 1, AST 16, ALT 22, total protein 6.1, albumin 3.3 02/25/2024 Triglycerides 78, cholesterol 113, HDL 45, LDL 52 01/16/2024 White blood count is 18.6, hemoglobin [...] block, possible old inferior and anterior infarct Limited echo 02/21/2024 Echo: 01/10/2024 Echo 03/19/2023 Stress test: Cardiac cath: 08/03/2020 Event Monitor: Cardiac MRI: CX ray: Pulmonary function test 04/05/2023 Assessment/Plan Bacteremia, He [facility] IV antibiotics [facility] with resolution of bacteremia. I was contacted in that regard by Dr. Kenney and schedule him for SALVATORE but it was canceled, it was not felt that it was necessary by ID. Few days ago he had positive blood culture in 1 bottle only but a different organism and PICC line was removed, he also had repeat blood culture which is still pending before he was started on oral antibiotics. Patient did not have any other signs of infection such as fever or chills or elevated white blood count or left shift. Chronic systolic heart failure, ejection fraction on most recent echo 45 to 50% mildly reduced 02/21/2024 Currently on Toprol-XL, Aldactone, Jardiance and Lasix. Lisinopril was discontinued recently by PCP because of stomach pain. Clinically stable. Coronary artery disease, Status post PTCA with stent placement of RCA 08/03/2020 Clinically stable, on Toprol-XL, and Xarelto Permanent atrial fibrillation On Toprol-XL and digoxin for rate control and on Xarelto for anticoagulation. Tachybradycardia syndrome, Status post dual-chamber pacemaker implantation on 03/03/2024 Last device check 04/07/2024 showing adequate function, V pacing 6% of the time and PVCs Severe pulmonary hypertension, most likely due to combination of left heart failure and COPD. Patient reports that he had sleep study which was negative for sleep apnea Mild aortic stenosis on most recent echo January 2024 Legs edema, most likely due to combination of severe pulmonary hypertension, and probably underlying venous insufficiency, he was taken off amlodipine, reasonably controlled on current medical management including Lasix, Aldactone and compression stocking Hypertension, on Toprol-XL, Aldactone, and Lasix. Lisinopril was discontinued due to stomach upset. Blood pressure has been elevated Hyperlipidemia, on atorvastatin, well-controlled. It was stopped recently due to stomach upset Type 2 diabetes mellitus, on Jardiance and Glucophage COPD, evaluated to be moderate on recent PFT, he is on oxygen 1 L/min GERD Lung cancer, on chemotherapy History of prostate cancer Plan: Continue current medications except for Aldactone which I will increase to 50 mg daily for better control of blood pressure. Check BMP in 1 week. I asked his to continue to check his blood pressure daily and contact me if it remains above 140/[address] Kenney regarding his bacteria and the need for SALVATORE. He told me that on previous encounter patient was evaluated by ID who did not feel that the patient needs SALVATORE and actually bacteremia resolved on IV antibiotics. His recent bacteremia is for a different organism and only in 1 bottle of culture without any other signs of infection. PICC line was removed, and got repeat blood culture. Currently on oral antibiotics and waiting for repeat blood culture result The patient was highly advised regarding following low-salt diet and to watch his fluid intake and to watch his weight daily and to contact us if his weight goes up with 2 pounds overnight or 4 to 5 pounds over 1 week The patient was also advised to elevate his legs while he is sitting and to continue with compression stocking Obtain fasting lipids and ALT AST in September 2024. The goal is to keep LDL cholesterol 70 or below Regarding aortic stenosis will continue to follow-up on progression by annual echocardiographic study Continue to follow in the device clinic as scheduled Follow-up with me in 3 months Chris Dixon MD,[facility] OFFICE VISIT Observed: 07/04/2024 10:40 AM Status: COMPLETED Source: [facility] [id number] Khadar Dawn 1 04/18/1939 M Date Provider Department Center 07/04/2024 [id number] DIXON [facility] Family History Problem Relation Age of Onset Other Father Coronary artery disease Brother Other Brother Family Status - Relation Status Age at Father Brother Level of Service:23730 [place] OFFICE/OUTPATIENT ESTABLISHED MOD MDM 30 MIN Reason for Visit and Comments: Congestive Heart Failure [127] - PPM was interrogated in May 2024. Coronary Artery Disease [187] - says Dr. Kenney stopped atorvastatin and lisinopril temporarily due to stomach pain/hiatal hernia. Atrial Fibrillation [80] - He is now on digoxin and potassium. Valve Disorder [3372] Hyperlipidemia [182] Hypertension [801400] Shortness of Breath [842715] Fatigue [46] Edema [[id number]] - Says he saw Dr. Kenney yesterday for LE edema. He increased his furosemide to twice daily. VANCOMYCIN TROUGH Collected: 06/13/2024 9:30 AM Stat us: F Source: [facility] TYPE CODE TESTS RESULT OUT OF RANGE REFERENCE UNITS LAB VANTR(LOINC) Vancomycin Trough 12.3 10.0-20.0 ug/mL LAB VNCTO(LOINC) Dose amount, Unknown LAB VNCTD(LOINC) Date last dose, Unknown LAB VNCTT(LOINC) Time last dose, Unknown Performed By: #### VNCT #### [facility] [address] [place] [address] Admissions Nurse: Lit Peralta MD VANCOMYCIN TROUGH Collected: 06/10/2024 9:30 AM Stat us: F Source: [facility] TYPE CODE TESTS RESULT OUT OF RANGE REFERENCE UNITS LAB VANTR(LOINC) Vancomycin Trough 12.7 10.0-20.0 ug/mL LAB VNCTO(LOINC) Dose amount, Unknown LAB VNCTD(LOINC) Date last dose, Unknown LAB VNCTT(LOINC) Time last dose, Unknown Performed By: #### VNCT #### [facility] [address] [place] [address] Admissions Nurse: Lit Peralta MD VANCOMYCIN TROUGH Collected: 06/06/2024 12:00 AM Sta tus: F Source: [facility] TYPE CODE TESTS RESULT OUT OF RANGE REFERENCE UNITS LAB VANTR(LOINC) Vancomycin Trough 19.4 10.0-20.0 ug/mL LAB VNCTO(LOINC) Dose amount, UNK LAB VNCTD(LOINC) Date last dose, UNK LAB VNCTT(LOINC) Time last dose, Unknown Performed By: #### VNCT #### [facility] [address] [place], [place] [id number] Admissions Nurse: Lit Peralta MD PROGRESS Observed: 05/26/2024 12:48 PM Status: COMPLETED Source: [facility] On Sunday I called to puneet morin with the patient and his sister, that after discussion with Dr. Arriaga, we recommend going to either [facility] or [facility] for evaluation and treatment. 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 The patient was reluctant to go. I explained our thoughts and the risks of not going. He then wanted me to talk it over with his sister. She reported that his was just taken by EMS to [facility] s/t not feeling well. The sister reported that they would try and make it to the hospital on Sunday. DOCUMENTATION Observed: 05/26/2024 12:00 AM Status: COMPLETED Source: [facility] [id number] Khadar Dawn 1940 [facility] Provider Department Center 05/26/2024 [id number] ESPITIA [facility] Family History Problem Relation Age of Onset Other Father Coronary artery disease Brother Other Brother Family Status - Relation Status Age at Father Brother PROGRESS Observed: 05/21/2024 4:00 PM Status: COMPLETED Source: [facility] Dr. Kenney the patient's primar care physician send my office in [place] a message that patient has positive blood culture. He was in the hospital earlier this month with sepsis and pneumonia and also he was treated for congestive heart failure and apparently his blood culture came back to be positive. Dr. Kenney thinks that the patient needs SALVATORE. Will go ahead and schedule the patient for SALVATORE as soon as possible particularly that the patient has a pacemaker but also the patient needs to be evaluated by ID as soon as possible for further evaluation and treatment. Dr. Kenney was called with my recommendation DOCUMENTATION Observed: 05/21/2024 12:00 AM Status: COMPLETED Source: [facility] [id number] Khadar Dawn 1 04/18/1939 Provider Department [place] 05/21/2024 [id number] DIXON [facility] Family History Problem Relation Age of Onset Other Father Coronary artery disease Brother Other Brother Family Status - Relation Status Age at Father Brother CNPN Observed: 05/21/2024 12:00 AM Status: COMPLETED Source: [facility] Telephone (CelframeA) KHADAR DAWN ([id number]) 1940 M Date Time Provider Department 05/21/24 Yanelis BRADSHAW During your visit today, we recorded the following information about you: Rojelio Guajardo RN 05/21/2024 3:58 PM Signed FYI--Dr. Ponce's office called to notify Dr. Bradshaw that Khadar did not show for his consult today. Patient was referred to Dr. Ponce per patient request to establish care with a local silo operator. Khadar does not have any appointments scheduled [...] Encounter Status:Closed by ROJELIO GUAJARDO on 06/05/24 URINE CULTURE Observed: 05/14/2024 5:29 PM Status: F Source: [facility] 20,000 colonies/ml mixed bacterial skin contaminants 2 Days PERFORMED BY: [place] [address] PATHOLOGIST [employer]PER[employer] CARA GARCIA M.D. Performed By: #### CUU #### [address] CNPN Observed: 05/08/2024 12:00 AM Status: COMPLETED Source: [facility] Telephone (CelframeA) KHADAR DAWN ([id number]) 1940 M Date Time Provider Department 05/08/24 Yanelis BRADSHAW During your visit today, we recorded the following information about you: Edyta Gilliland, RN 05/08/2024 1:15 PM Signed Message Received: Today Yanelis Bradshaw MD P Radt [facility] Nurse [place] Can we verify pt seeing medonc? Previous [...] MRI brain he is having done at [facility] [place]. Edyta Gilliland RN Allergies As of Date: 05/08/2024 (No Known Allergies) Date Reviewed: 04/16/2024 Reviewed by: Edyta Gilliland, AGGIE - Fully Assessed Reason for Visit: Web Operations Specialist - Other [3602] Future Appointment [256] Prescriptions [...] Encounter Status:Closed by EDYTA GILLILAND on 05/19/24 PROGRESS Observed: 05/05/2024 1:40 PM Status: COMPLETED Source: [facility] Cardiology - [facility] Subjective Khadar Dawn is a 84 [...] 4 L Coronary artery disease Diabetes mellitus (CMS/HCC) Hyperkalemia [...] and with evening meal., Disp: , Rfl: metoprolol succinate XL (Toprol-XL) 50 mg 24 hr tablet, Take 75 mg by mouth in the morning., Disp: , Rfl: pantoprazole (ProtoNix) 40 mg EC tablet, Take 40 mg by mouth before breakfast., Disp: , Rfl: potassium chloride CR (Klor-Con M10) 10 mEq ER tablet, Take 10 mEq by mouth two times daily. Do not crush or chew., Disp: , Rfl: predniSONE (Deltasone) 10 mg tablet, Take 10 mg by mouth in the morning., Disp: , Rfl: rivaroxaban (Xarelto) 20 mg tablet, Take 20 mg by mouth once daily as directed., Disp: , Rfl: benazepril (Lotensin) 20 mg tablet, Take 1 tablet (20 mg) by mouth once daily as directed. (Patient not taking: Reported on 04/09/2024), Disp: 90 tablet, Rfl: 3 carvedilol (Coreg) 12.5 mg tablet, TAKE 2 TABLETS WITH BREAKFAST AND WITH EVENING MEAL. (Patient not taking: Reported on 05/05/2024), Disp: 360 tablet, Rfl: 3 metoprolol tartrate 75 mg tablet, Take 75 mg by mouth two times daily., Disp: , Rfl: Objective Visit Vitals BP 120/70 (BP Location: Right arm, Patient Position: Sitting) Pulse 85 Ht 1.664 m (5' 5.5 ) Wt 70.8 kg (156 lb) SpO2 94% Comment: on 3L O2 BMI 25.56 kg/m??? Smoking Status Former BSA 1.81 m??? Physical exam: GENERAL: alert and oriented x3, well developed, in no acute distress. HEAD: atraumatic, normocephalic. EYES: ZACHERY, EOMI. NECK: trachea midline, no JVD present, no carotid bruits present. CARDIAC: Irregular irregularity, S1, S2 present. . Systolic ejection murmur 3/6 at the aortic area. RESPIRATORY: CTAB, no increased effort of breathing, no rales, rhonchi, or wheezing. ABDOMEN: soft, nontender, nondistended. EXTREMITIES: Bilateral +2 edema. NEURO: strength/sensation equal and symmetric in bilateral upper and lower extremities. PSYCH: appropriate mood, affect, and judgement. Pacemaker incision appears to be very good and healing well without any swelling or hematoma or oozing or redness. Recent Labs 02/29/2024 Sodium 139, potassium 4, BUN 14, creatinine 1.13, GFR above 60, glucose 245, calcium 9.1 Total bilirubin 1, AST 16, ALT 22, total protein 6.1, albumin 3.3 02/25/2024 Triglycerides 78, cholesterol 113, HDL 45, LDL 52 01/16/2024 White blood count is 18.6, hemoglobin [...] block, possible old inferior and anterior infarct Limited echo 02/21/2024 Echo: 01/10/2024 Echo 03/19/2023 Stress test: Cardiac cath: 08/03/2020 Event Monitor: Cardiac MRI: CX ray: Pulmonary function test 04/05/2023 Assessment/Plan Chronic systolic heart failure, ejection fraction on most recent echo 45 to 50% mildly reduced 02/21/2024 Currently on Toprol-XL, lisinopril, Jardiance and Lasix. Clinically stable Coronary artery disease, Status post PTCA with stent placement of RCA 08/03/2020 Clinically stable, on Toprol-XL, atorvastatin, and Xarelto Permanent atrial fibrillation On Toprol-XL for rate control and on Xarelto for anticoagulation. Last event monitor showed episodes of rapid ventricular rate and also episodes of prolonged pauses. He received pacemaker Tachybradycardia syndrome, Status post dual-chamber pacemaker implantation on 03/03/2024 He had device check today which showed adequate function and few episodes of high ventricular rate since implant Severe pulmonary hypertension, most likely due to combination of left heart failure and COPD. Patient reports that he had sleep study which was negative for sleep apnea Mild aortic stenosis on most recent echo January 2024 Legs edema, most likely due to combination of severe pulmonary hypertension, being on amlodipine and probably underlying venous insufficiency, reasonably controlled on current medical management Hypertension, on Toprol-XL, lisinopril, Lasix, and amlodipine. It appears to be very well-controlled Hyperlipidemia, on atorvastatin, well-controlled Type 2 diabetes mellitus, on Jardiance and Glucophage and Amaryl COPD, evaluated to be moderate on recent PFT, he is on oxygen 1 L/min GERD Lung mass, newly diagnosed, he is going for PET scan soon History of prostate cancer Plan: Continue lisinopril, Lasix, Jardiance, atorvastatin, and Xarelto I will increase Toprol-XL to 100 mg daily for better control of ventricular rate I will stop amlodipine to avoid hypotension I will add Aldactone 25 mg daily and stop potassium to maximize GDMT. Check BMP in 1 week next Hopefully the above measures will help with his legs edema. If no improvement I will consider venous insufficiency study The patient was highly advised regarding following low-salt diet and to watch his fluid intake and to watch his weight daily and to contact us if his weight goes up with 2 pounds overnight or 4 to 5 pounds over 1 week The patient was also advised to elevate his legs while he is sitting Patient has chronic atrial fibrillation at least for 2 years and he had significant dilatation of his atrium, in addition patient never been on antiarrhythmic medications and never been cardioverted, he is not symptomatic and he is not a good candidate for amiodarone due to his underlying lung disease, therefore I think the likelihood of successful cardioversion is not good. Obtain fasting lipids and ALT AST in September 2024. The goal is to keep LDL cholesterol 70 or below Regarding aortic stenosis will continue to follow-up on progression by annual echocardiographic study Continue to follow in the device clinic as scheduled Follow-up with me in 2 months Chris Dixon MD,[facility] OFFICE VISIT Observed: 05/05/2024 1:40 PM Status: COMPLETED Source: [facility] [id number] HirofionaKhadar Smart 1 04/18/1939 M Date Provider Department Center 05/05/2024 [id number]-UJZOHLCHRIS DIXON [facility] [place] [facility] Family History Problem Relation Age of Onset Other Father Coronary artery disease Brother Other Brother Family Status - Relation Status Age at Father Brother Level of Service:27407 CA OFFICE/OUTPATIENT ESTABLISHED MOD MDM 30 MIN Reason for Visit and Comments: Atrial Fibrillation [80] - Denies bleeding on Xarelto. He is now on Toprol XL 50mg instead of Lopresser 75mg bid. Congestive Heart Failure [127] - He was admitted to [facility] last month for CHF. NM PET/CT SKULL-THIGH SUBQ Observed: 9:22 AM Status: F Source: [facility] * * *Final Report* * * DATE [...] designed to produce diagnostic CT scan quality. Physiologic/non-pathologic uptake in some body regions could confound or obscure some pathology. * CT Dose-Length Product (DLP): 197 mGy*cm * CT Dose Reduction Employed: Yes * Blood glucose: 95 mg/dL * Injection site: Right Forearm-Antecubital * Injected activity: 10.8 mCi * Uptake Time: 53 minutes * Radiopharmaceutical: J44-Hqiyzbpyurmqabpeas (FDG) COMPARISON: No previous FDG PET/CT available [...] any questions regarding this interpretation, please call [phone]. If you are unable to reach us at the number above, please feel free to contact [facility] eRadiology at [phone]. [id number] PROGRESS Observed: 04/30/2024 8:00 AM Status: COMPLETED Source: [facility] HNO ID: [id number] Author: CHERELLE CORDERO RN Service: ? Author [...] DATE: April 30, 2024 TIME: 7:59 AM PROGRESS Observed: 04/30/2024 8:00 AM Status: COMPLETED Source: [facility] ID: [id number] Author: DG JEROME RT(Dharmesh) Service: ? Author Type: Technologist Type: [...] 0756 PATIENT DISCHARGED TO: Ambulatory patient, left [place] department area. Is this a therapy: No A Diagnostic radioactive procedure has taken place, with no further precautions necessary other than routine body substance precautions. More information regarding radiation safety can be found using this link: [email or web address]%[email or web address] SIGNATURE: RT Adenike(R) PATIENT NAME: Khadar Dawn DATE: April 30, 2024 TIME: 8:24 AM PAGER/CONTACT #: LIZ Observed: 04/25/2024 12:00 AM Status: COMPLETED Source: [facility] Telephone (RADTSA) KHADAR DAWN ([id number]) 1940 M Date Time Provider Department 04/25/24 Yaneils BRADSHAW During your visit today, we recorded [...] patient on Sunday when he is in [place]. Shazia Rooney 04/25/2024 9:44 AM Signed First [...] that pet is complete? AGGIE Galvez Angela, AGGIE 05/05/2024 4:06 PM Signed Yanelis Bradshaw MD You6 minutes ago (3:59 PM) Send report to [facility]. I think he will be starting systemic tx Edyta Gilliland, AGGIE 05/05/2024 4:06 PM Signed Report was faxed to Dr Rodriguez's office this am. Edyta Gilliland RN Allergies As of Date: 04/25/2024 (No Known Allergies) Date Reviewed: 04/16/2024 Reviewed by: Edyta Gilliland RN - Fully Assessed Primary Visit Diagnosis:Malignant neoplasm of unspecified part of unspecified bronchus or lung (HCC) [C34.90] Order(s):NM PET/CT SKULL-THIGH SUBSEQUENT [[id number]] Order #: [id number] FUTURE Prescriptions as of 05/05/2024 - amLODIPine [...] Encounter Status:Closed by Yanelis BRADSHAW on 04/25/24 PROGRESS Observed: 04/23/2024 9:36 AM Status: COMPLETED Source: [facility] HNO ID: [id number] Author: Yanelis BRADSHAW MD Service: ? Author Type: Physician Type: Progress Notes Filed: 04/23/2024 09:36 Note Text: se BATES Observed: 04/23/2024 8:30 AM Status: COMPLETED Source: [facility] Office Visit (LEVYTSA) KHADAR DAWN ([id number]) 1940 M Date Time Provider Department 04/23/24 8:30 AM Yanelis BRADSHAW During your visit today, we recorded the following information about you: Yanelis Bradshaw MD 04/23/2024 9:36 AM Signed [facility] Referring Provider: Yanelis BRADSHAW [[id number]] Allergies As of Date: 04/23/2024 (No Known [...] Encounter Status:Closed by Yanelis BRADSHAW on 04/23/24 JANA Observed: 04/23/2024 8:00 AM Status: COMPLETED Source: [facility] Office Visit (RADTSA) KHADAR DAWN ([id number]) 1940 M Date Time Provider Department 04/23/24 8:00 AM Yanelis BRADSHAW During your visit today, we recorded the following information about you: Referring Provider: Yanelis BRADSHAW [[id number]] Allergies As of Date: 04/23/2024 (No Known Allergies) Date Reviewed: 04/16/2024 Reviewed by: Edyta Gilliland RN - Fully Assessed Reason for Visit: Simulation Request Form [4065] Primary Visit Diagnosis:Malignant neoplasm of lung, unspecified laterality, unspecified part of lung (HCC) [C34.90] Order(s):RADIATION TREATMENT PER RADIATION ONCOLOGIST PLAN [[id number]] Order #: [id number]: 1 PT ED CANCER [2486535] Order #: [id number]: 1 CT SIM PLANNING RADIATION ONCOLOGY [1975763] Order #: [id number] Prescriptions as of 04/23/2024 - amLODIPine (NORVASC) [...] Encounter Status:Closed by Yanelis BRADSHAW on 04/23/24 LIZ Observed: 04/23/2024 12:00 AM Status: COMPLETED Source: [facility] Telephone (myEDmatchTSA) KHADAR DAWN ([id number]) 1940 M Date Time Provider Department 04/23/24 Yanelis BRADSHAW [email or web address] During your visit today, we recorded the [...] RN - Fully Assessed Reason for Visit: Web Operations Specialist - Other [3602] Prescriptions as of 04/23/2024 - amLODIPine (NORVASC) [...] Encounter Status:Closed by EDYTA GILLILAND on 04/23/24 LIZ Observed: 04/23/2024 12:00 AM Status: COMPLETED Source: [facility] Telephone (CelframeA) KHADAR DAWN ([id number]) 1940 M Date Time Provider Department 04/23/24 Yanelis BRADSHAW During your visit today, we recorded the following information about you: Edyta Gilliland RN 04/23/2024 10:22 AM Signed Call placed to [facility] [place] ([phone]). Spoke to Kristi to arrange weekly pacemaker checks. Kristi called rep from [employer] and stated he has a single chamber [...] Assessed Reason for Visit: Future Appointment [256] Web Operations Specialist - Other [1286] Cmt: Pacemaker Checks During XRT Prescriptions as [...] Encounter Status:Closed by EDYTA GILLILAND on 04/24/24 PROGRESS Observed: 04/23/2024 12:00 AM Status: COMPLETED Source: [facility] HNO ID: [id number] Author: Yanelis BRADSHAW MD Service: ? Author Type: Physician Type: Progress Notes Filed: 04/24/2024 14:31 Note Text: KHADAR DAWN [id number] 04/23/2024 [facility] Radiation Oncology Department SIMULATION NOTE DATE OF SIMULATION: 04/23/2024 THERAPIST: Paulette Weinberg John MACHINE: AIT DIAGNOSIS: Malignant neoplasm of upper lobe, left [...] Juno Bradshaw M.D. / TS 52:31 PM US GUIDE OR THORACENTESIS Observed: 04/05 2:56 PM Status: COMPLETED Source: [facility] [address] Ultrasound Report Signed Patient: Khadar Dawn MR#: [id number] : 1940 Acct:[id number] Age/Sex: 84 / M ADM Date: 04/22/24 Loc: Room: Type: [facility] Attending Dr: Comfort Bradshaw MD Ordering Provider: Yanelis Bradshaw MD Date of Service: 04/22/24 US/US guide or thoracentesis: THORShanda Copies to: Yanelis Bradshaw MD ULTRASOUND-GUIDED THORACENTESIS INDICATION: REPORTED EFFUSION COMPARISON: NONE US/US guide or thoracentesis FINDINGS/IMPRESSION: ULTRASOUND LEFT CHEST WALL DEMONSTRATE NO FLUID COLLECTION. PROCEDURE NOT PERFORMED. Impression dictated by: Hal Mojica M.D.04/22/2024 2:57 PM Dictation Location: [place] [address] Tech: Javier Vidal Transcribed By: QING 04/22/241456 Dictated By: Hal Mojica MD 04/22/241455 Signed By: <Electronically signed by Hal Mojica MD in OV> 04/22/241456 CNPN Observed: 04/22/2024 12:00 AM Status: COMPLETED Source: [facility] Telephone (HEMASA) HIROKHADAR LEON ([id number]) 1940 M Date Time Provider Department 04/22/24 Yanelis BRADSHAW During your visit today, we recorded the following information about you: Krystle Faye 04/22/2024 8:58 AM Signed Received call from Hui at [facility] radiology asking for images from last Chest XR be pushed over. Patient is there for thoracentesis and the radiologist is not seeing any fluid. I let her know his last XR chest was done at [facility], and the one before that was at [place]. She will call there for images. She [...] Encounter Status:Closed by KRYSTLE FAYE on 04/23/24 LIZ Observed: 04/21/2024 12:00 AM Status: COMPLETED Source: [facility] ([id number]) 1940 M Date Time Provider Department 04/21/24 Yanelis BRADSHAW During your visit today, we recorded the following information about you: Romi Faust 04/21/2024 8:35 AM Signed Erich from Dr. Rodriguez's office called asking for past progress notes for the patient. He stated that the patient was referred and they have not received any information. Please fax records to [phone]. Madai Krystle Goodrich 04/21/2024 3:36 PM Signed Consult note faxed [...] Encounter Status:Closed by KRYSTLE FAYE on 04/21/24 PROGRESS Observed: 04/16/2024 3:22 PM Status: COMPLETED Source: [facility] HNO ID: [id number] Author: ROJELIO GUAJARDO RN Service: ? Author Type: Registered Nurse Type: Progress Notes Filed: 04/16/2024 15:30 Note Text: Radiation Therapy - Patient Education Note PATIENT NAME: Khadar Dawn PATIENT April 16, 2024 [facility] FACILITY/LOCATION: [facility] READINESS TO LEARN Cognitive Ability: Alert [...] need for social work, van service, and highway maintenance technician. Was PED reviewed? No Patient has an Onbody or Implanted device: Yes, person notified was: Dr. Bradshaw Signed by: Rojelio Guajardo RN PROGRESS Observed: 04/16/2024 1:01 PM Status: COMPLETED Source: [facility] HNO ID: [id number] Author: Yanelis BRADSHAW MD Service: ? Author [...] EXAM: VS: BP 121/72 Temp (!) 35.9 ?C (96.7 ?F) Resp 18 Wt 75.2 kg (165 lb 12.6 oz) SpO2 88% BMI 26.77 kg/m? KPS:90 General Appearance: Alert and oriented. No [...] uptake to an AP window lymph node. [facility] with EBUS negative level 7 lymph node [...] by: Yanelis Bradshaw MD cc: Josy Hernandez Luis Alberto [address] [place] [address] Meeta Manuelwla [address] [facility] [address] CNOV Observed: 04/16/2024 1:00 PM Status: COMPLETED Source: [facility] Office Visit (RADTSA) LÓPEZKHADAR Berry ([id number]) 1940 M Date Time Provider Department 04/16/24 1:00 PM Yanelis BRADSHAW During your visit today, we recorded the following information about you: Temperature Respiration Blood pressure Weight 96.7 degrees 18/minute 121/72 75.2 kg Edyta Gilliland RN 04/21/2024 3:24 PM Signed Pacemaker/Defibrillator? Yes 03/03 placed Previous Cancer(s)? Yes [...] EXAM: VS: BP 121/72 Temp (!) 35.9 ?C (96.7 ?F) Resp 18 Wt 75.2 kg (165 lb 12.6 oz) SpO2 88% BMI 26.77 kg/m? KPS:90 General Appearance: Alert and oriented. No [...] uptake to an AP window lymph node. [facility] with EBUS negative level 7 lymph node [...] Signed by: Yanelis Bradshaw MD cc: Josy Kenney [address] [place] [address] Meeta Rodriguez [address] [facility] [address] Referring Provider: MEETA RODRIGUEZ [[id number]] Allergies As of Date: 04/16/2024 (No Known Allergies) Date Reviewed: 04/16/2024 Reviewed by: Edyta Gilliland RN - Fully Assessed Reason for Visit: Lung Cancer [562] Primary Visit Diagnosis:Atrial fibrillation, unspecified type (HCC) [I48.91] Other Visit Diagnosis:Malignant neoplasm of lung, unspecified laterality, unspecified part of lung (HCC) [C34.90] Order(s):ANALYZE CARDIO/DEFIBRILLATOR [47092PDM] Order #: [id number]: 1 IMAGING GUIDED THORACENTESIS [4459437] Order #: [id number] CONSULT TO PULMONARY MEDICINE [9632219] Order #: [id number]: 1 Prescriptions as of 04/21/2024 - amLODIPine (NORVASC) [...] once daily. Problem List As Of Date 04/16/2024 Noted Resolved Atrial fibrillation (HCC) [I48.91] 05/28/2014 Hypertension [I10] 05/28/2014 Hyperlipidemia [E78.5] 05/28/2014 Malignant neoplasm of prostate (HCC) [C61] 07/01/2014 History of prostate cancer [Z85.46] 06/09/2015 Level of Service: OFFICE/OUTPATIENT [facility] 45 MINUTES [29779] Additional E/M codes: VISIT CPLX INHERENT EANDM ASSOC WITH MED * Follow-up and Disposition History for Encounter Date Provider Department Center 04/16/2024 [id number] BRADSHAW [place] Encounter Status:Closed by Yaenlis BRADSHAW on 04/21/24 PROGRESS Observed: 04/16/2024 12:57 PM Status: COMPLETED Source: [facility] HNO ID: [id number] Author: EDYTA GILLILAND RN Service: ? Author Type: Registered Nurse Type: Progress Notes Filed: 04/21/2024 15:24 Note Text: Pacemaker/Defibrillator? Yes 03/03 placed Previous Cancer(s)? Yes Prostate Previous Radiation? Yes- Here Lupus/Scleroderma?No On body monitoring device? No Edyta Gilliland RN CNCNPATED Observed: 04/16/2024 12:00 AM Status: COMPLETED Source: [facility] Education (KATHLEEN) KHADAR DAWN ([id number]) 1940 M Date Time Provider Department 04/16/24 [...] Encounter Status:Closed by ROJELIO GUAJARDO on 04/16/24 LIZ Observed: 04/16/2024 12:00 AM Status: COMPLETED Source: [facility] Telephone (CelframeA) KHADAR DAWN ([id number]) 1940 M Date Time Provider Department 04/16/24 Yanelis BRADSHAW During your visit today, we recorded the following information about you: Rojelio Guajardo RN 04/16/2024 2:37 PM Signed PSS/RT: Please schedule [facility] IR for thoracentis return for sim after treating lung no contrast 15 treatments, no concurrent chemo Need presim consent Nurse ed today Consult with Dr. Ponce to establish care with local silo operator. pt does not want to travel to current silo operator in [place]. Thanks AGGIE Jimenez Jodi 04/17/2024 9:08 AM Signed Waiting on orders to be signed to fax to IR [facility] Rojelio Guajardo RN 04/18/2024 9:54 AM Signed Order is signed. Please arrange thoracentesis appt lizette. Thanks AGGIE Jimenez Trisha 04/18/2024 11:26 AM Signed Everything is faxed to [facility] for Shazia Perez and I will check with [facility] daily to see when scheduled I [...] an appointment. All info was faxed to [phone] Will follow up to see when appt is scheduled Shazia Britton 04/18/2024 3:08 PM Signed Patient scheduled at [facility] on 04/22 at 9am. Arrive at [...] and records to DR. Ponce office at [phone]. He is having a thoracentesis on 04/22. She would like records faxed and images pushed of those as well. Thanks so much Shazia Rooney 04/21/2024 2:25 PM Signed Referral was sent to [facility] and [place] offices. Confirmed patient to be scheduled in [place] with Dr. Ponce on 04/23 at 3pm. I called [facility] office and explained sent by mistake to please disregard. Krystle Faye 04/21/2024 2:28 PM Signed Records faxed to Dr. Ponce's [place] office. Allergies As of Date: 04/16/2024 (No Known Allergies) Date Reviewed: 04/16/2024 Reviewed by: Edyta Gilliland, AGGIE - Fully Assessed Reason for Visit: Appointment [186] Orders [681] Primary Visit Diagnosis:Malignant neoplasm of lung, unspecified laterality, unspecified part of lung (HCC) [C34.90] Order(s):BODY FLUID CELL COUNT [SQCCBF] Order #: [id number] FUTURE GLUCOSE, BODY FLUID [SQBFGLUC] Order #: [id number] FUTURE LACTATE DEHYDROGENASE, BODY FLUID [SQBFLDH] Order #: [id number] FUTURE PH BODY FLUID [SQFLPH] Order #: [id number] FUTURE AFB CULTURE AND STAIN [SQAFC] Order #: [id number] FUTURE BACTERIAL CULTURE AND GRAM STAIN, STERILE BODY FLUID [SQBFCUL] Order #: [id number] FUTURE CYTOLOGY NON-ROLL TESTER [OQM1752] Order #: [id number] FUTURE Prescriptions as of 04/28/2024 - amLODIPine [...] once daily. Problem List As Of Date 04/16/2024 Noted Resolved Atrial fibrillation (HCC) [I48.91] 05/28/2014 Hypertension [I10] 05/28/2014 Hyperlipidemia [E78.5] 05/28/2014 Malignant neoplasm of prostate (HCC) [C61] 07/01/2014 History of prostate cancer [Z85.46] 06/09/2015 Encounter Status:Closed by ROJELIO GUAJARDO on 04/28/24 LIZ Observed: 04/15/2024 12:00 AM Status: COMPLETED Source: [facility] Telephone (NCCAP) KHADAR DAWN ([id number]) 1940 M Date Time Provider Department 04/15/24 Yanelis BRADSHAW NCCAP During your visit today, we recorded the following information about you: Romi Faust 04/15/2024 8:[address] Lane's office called requesting progress notes from the past 12 months. Please fax to [phone]. They are requesting this today as he has an appointment. Thank you Krystle Faye 04/21/2024 2:35 PM Signed Patient does not see Dr. Lane. This fax number is for Dr. Rodriguez. Patient's PCP is Dr. Kenney. Note will be faxed to Dr. Rodriguez and Dr. Kenney once it is complete. Allergies As of [...] Encounter Status:Closed by KRYSTLE FAYE on 04/21/24 ANES Observed: 04/09/2024 1:40 PM Status: COMPLETED Source: [facility] Patient: Khadar Dawn Procedure Summary Date: 04/09/24 Room / Location: [facility] Main Operating Room Anesthesia Start: 1110 [...] per anesthesia protocol. No notable events documented. NURSNOTE Observed: 04/09/2024 12:22 PM Status: COMPLETED Source: [facility] Report to Emi MARCIAL HISTOLOGY - TISSUE EXAM Collected: 07/2024 11:50 AM Status: UNK Source: [facility] TYPE CODE TESTS RESULT OUT OF RANGE REFERENCE UNITS PATHOLOGY 1499 LAB AP CASE REPORT Result Comment: Surgical Pat hology Case: [id number] Authorizing Provider: Cara Perez MD Collected: 04/09/2024 1150 Ordering Location: [facility] Main Operating Room Received: 04/09/2024 1256 Pathologist: Brit Grimes MD Specimen: Lung, Left Upper Lobe, OUMAR MASS BX PATHOLOGY 34 LAB AP REPORT FINAL DIAGNOSIS NARRATIVE Result Comment: A. Lung, lef t upper lobe, biopsy: - Sclerotic lung and blood clot with rare strips of malignant glandular cells. - See concurrent cytology report, [id number]. OLOGY 29 LAB AP CLINICAL INFORMATION Order Diagnoses Result Comment: R91.8 - Lung mass [ICD-10-CM] J43.2 - Centrilobular emphysema (CMS/HCC) [ICD-10-CM] J96.11 - Chronic hypoxic respiratory failure (CMS/HCC) [ICD-10-CM] PATHOLOGY 35 LAB AP DIAGNOSIS COMMENT Result Comment: There is sca nt tumor in the tissue block, insufficient for further testing. PATHOLOGY [id number] LAB AP GROSS DESCRIPTION Result Comment: A. Lung, Lef t Upper Lobe. Part A is received in formalin labeled Khadar Vollmar and OUMAR mass biopsy . It consists of multiple platt-red, irregular pieces of soft tissue measuring 1.0 x 0.5 x 0.2 cm in aggregate. The specimen is submitted in toto in 1 cassette. Lilliam Hitchcock, Pathologists' Content Development Specialist student Herb Reynoso, Pathologists' Content Development Specialist PATHOLOGY 32 LAB AP MICROSCOPIC DESCRIPTION Microscopic examination performed. Performed By: #### [id number] # ### [facility] ([facility]AK[facility]) [address] [place] [address] NON-ROLL TESTER CYTOLOGY - CELLULAR EXAM Collected: 04/09/2024 11:39 AM Status: UNK Source: [facility] TYPE CODE TESTS RESULT OUT OF RANGE REFERENCE UNITS PATHOLOGY 1499 LAB AP CASE REPORT Result Comment: Non-gynecolo gic Cytology Case: [id number] Authorizing Provider: Cara Perez MD Collected: 04/09/2024 1139 Ordering Location: [facility] Main Operating Room Received: 04/09/2024 1215 Pathologist: Aaron Shea MD Specimens: A) - Lung, Left Upper Lobe, OUMAR MASS B) - Bronchial washing, left upper lobe, OUMAR BAL C) - Lymph Node Station 7, [address] STATION 7 FNA PATHOLOGY 34 LAB AP REPORT FINAL DIAGNOSIS NARRATIVE Result Comment: A. Lung, Lef t Upper Lobe, Ion-guided fine needle aspiration: - Adenocarcinoma B. Lung, left upper lobe, bronchial washing: - Adenocarcinoma C. Lymph Node, Station 7, EBUS-guided fine needle aspiration: - Negative for metastatic malignancy. - Cellular evidence of a lymph node. - Scant lymphoid component. OLOGY 35 LAB AP DIAGNOSIS COMMENT Result Comment: See also con current surgical case, [id number]. There is scant tumor present in the cell block of part A. PATHOLOGY 32 LAB AP MICROSCOPIC DESCRIPTION Result Comment: A. Satisfact ory for evaluation. Examination of the prepared smears [...] along with groups of benign bronchial cells. PATHOLOGY 29 LAB AP CLINICAL INFORMATION PET-avid left apical lung mass (3.4 cm) with multiple, smaller left upper lobe lung nodules, mediastinal adenopathy, former smoker PATHOLOGY [id number] LAB AP INTRAOPERATIVE CONSULTATION Result Comment: A. Lung, Lef t Upper Lobe. Rapid on-site evaluation was performed [...] pending the review of all material submitted.* PATHOLOGY 30 LAB AP GROSS DESCRIPTION Result Comment: A. 4 air-dri ed slides, 3 alcohol-fixed slides, 30 mL CytoLyt with hazy red fluid and clots B. 17 mL cloudy, red fluid with clots C. 30 mL CytoLyt with clear, pale pink fluid with red/white flecks Performed By: #### [id number] ### # [facility] ([facility]) [address] [place] [address] PROCEDURE Observed: 04/09/2024 11:28 AM Status: COMPLETED Source: [facility] Airway Date/Time: 04/09/2024 11:21 AM Urgency: elective Airway not difficult General Information and Staff Patient location during procedure: OR Anesthesiologist: Ra Rizo MD Resident/MANAGER [employer]ES/CAA: Anmol Mccray MD Performed: resident/MANAGER [employer]/CAA Learner assisted: MS Indications and Patient Condition [...] 22 Number of attempts at approach: 1 NURSNOTE Observed: 04/09/2024 11:04 AM Status: COMPLETED Source: [facility] Dr Rizo at pt bedside to a ssess before heading to procedure room. HP Observed: 04/09/2024 10:30 AM Status: COMPLETED Source: [facility] H&P reviewed. The patient wa s examined and there are no changes to the H&P. Re-explained the procedure to the patient along with the associated risk of pneumothorax, bleeding, hypoxia, and respiratory failure. Patient is agreeable and will proceed with the scheduled Robotic bronchoscopy and TBBx, FNA, EBUS Cara Perez MD Interventional Pulmonary Medicine Pulmonary and Critical Care Medicine [facility] POCT GLUCOSE METER UNSOLICIT ED RESULTS Collected: 04/09/2024 9:20 AM Status: UNK Source: [facility] Order Comment: Waived Testin g in the ED is performed under the ED CLIA certificate #[id number]. TYPE CODE TESTS RESULT OUT OF RANGE REFERENCE UNITS LAB 885 POCT GLUCOSE 88 70-105 mg/dL Result Comment: ltolles Performed By: #### [id number] #### [facility] ([facility] [address] [place] [address] CT CHEST WO IV CONTRAST Observed: 2024 8:13 AM Status: UNK Source: [facility] PROCEDURE: CT CHEST WITHOUT CONTRAST CLINICAL INDICATION: [...] Electronically signed: David Hoffman MD. Not Vldtd PREP FOR PROCEDURE Observed: 04/09/2024 12:00 AM Status: COMPLETED Source: [facility] [id number] Khadar Dawn 1 04/18/1939 M Date Provider Department Center 04/09/2024 383-CARA PEREZ [facility] Family History Problem Relation Age of Onset Other Father Coronary artery disease Brother Other Brother Family Status - Relation Status Age at Father Brother PHYLLIS Observed: 04/08/2024 10:54 PM Status: COMPLETED Source: [facility] Patient: Khadar Dawn Procedure Information Date/Time: 04/09/24 1030 Scheduled providers: Cara Perez MD; Ra Rizo MD Procedure: BRONCHOSCOPY Location: [facility] Main Operating Room Relevant Problems Cardio [...] with attending and resident. Additional Equipment Requests ABSTRACT Observed: 03/31/2024 12:00 AM Status: COMPLETED Source: [facility] [id number] Khadar Dawn 04/18/1939 M Date Provider Department Center 03/31/2024 383-CARA PEREZ [facility] ONC [facility] Family History Problem Relation Age of Onset Other Father Coronary artery disease Brother Other Brother Family Status - Relation Status Age at Father Brother 36 Observed: 03/25/2024 3:50 PM Status: COMPLETED Source: [facility] Per patient's , Dr. Titus toure's office is requesting cardiac clearance prior to lung biopsy. I'm assuming they'd like him to hold Xarelto but it doesn't say in Dr. Perez's office note. You saw him in clinic 2 weeks ago. Please advise. Thanks. Observed: 03/20/2024 12:30 PM Status: COMPLETED Source: [facility] Attestation signed by Cara Perez MD at 03/21/2024 11:55 AM I have seen and examined the patient. I reviewed the resident/fellow note and I agree with the findings and plan. Cara Perez MD Interventional Pulmonary Medicine Pulmonary and Critical Care Medicine [facility] Pulmonary Clinic Visit Note Patient: Khadar Dawn Age: 84 y.o. : 1940 Account No.: [id number] Referring physician: Dr. Kenney Chief complaint: Lung mass HPI 77-year-old male [...] by mouth at bedtime. Yes Historical Provider, MD benazepril (Lotensin) 20 mg tablet Take 1 [...] sound bilaterally. No wheezing or rales CARDIOVASCULAR: Regular rate and rhythm. Normal S1 and S2. No murmur, rubs, or gallops. BACK: normal curvature ABDOMEN: Soft, non-tender, non-distended. Normal bowel sounds. No palpable masses. EXTREMITIES: No cyanosis, no edema, no calf tenderness Labs Results: Lab Results Component Value Date HGB 15.2 03/03/2024 HCT 47.8 03/03/2024 WBC 13.41 (H) 03/03/2024 Radiology: No Chest X-ray results found for the past [address] results found for the past 12 months Assessment and Plan: Diagnoses and all orders for this visit: Lung mass - CT guided percutaneous lung; Future Centrilobular emphysema (CMS/HCC) SOB (shortness of breath) NOVOA (dyspnea on exertion) Chronic hypoxic respiratory failure (CMS/HCC) Pulmonary hypertension (CMS/HCC) -Left apical lung mass measures 3.5 cm, PET avid spiculated margin. High concern of malignancy -Mediastinal adenopathy -Chronic hypoxic respiratory failure on home oxygen Former smoker - Emphysema/COPD [no prior PFT available I - Congestive heart failure - Mitral stenosis - Severe pulmonary hypertension RVSP of 63 likely group 2 related to heart disease - A-fib on anticoagulation on Xarelto Coronary artery disease status post stents placement Plan: -Will proceed with CT-guided lung biopsy given that patient has significant comorbidities, significant history of heart failure, coronary artery disease status post stents, pulmonary hypertension with RVSP 63. will be high risk for general anesthesia. Will discuss with interventional radiology in regard proceeding with CT-guided lung biopsy. If deemed not to be a good candidate for CT-guided biopsy will plan for robotic assisted bronchoscopy for tissue sampling. Patient to have cardiology clearance prior to procedure,. Patient to have repeat CT imaging for mapping. All risk and benefit of procedure discussed with patient. Patient is agreeable. -Further workup based on biopsy result -obtain pulmonary function test -Continue oxygen supplement via nasal cannula. - Continue on Trelegy along with albuterol as needed. - Continue following up with cardiology. On goal-directed medical therapy. Tamika White MD [facility] Pulmonary/Critical Care Fellow OFFICE VISIT Observed: 03/20/2024 12:30 PM Status: COMPLETED Source: [facility] [id number] Khadar Dawn 1 04/18/1939 M Date Provider Department Center 03/20/2024 383-CARA PEREZ [facility] ONC [facility] Family History Problem Relation Age of Onset Other Father Coronary artery disease Brother Other Brother Family Status - Relation Status Age at Father Brother Level of Service:56309 [place] OFFICE/OUTPATIENT NEW MODERATE MDM 45 MINUTES (GC) Reason for Visit and Comments: New Patient [632] - Lung mass; abnormal PET SCAN, needs biopsy 29 Observed: 03/20/2024 12:30 PM Status: COMPLETED Source: [facility] Addended by: HARRISON PEREZ on: 03/27/2024 01:27 PM Modules accepted: Orders PROGRESS Observed: 03/20/2024 12:30 PM Status: COMPLETED Source: [facility] Attestation signed by Cara Perez MD at 03/21/2024 11:55 AM I have seen and examined the patient. I reviewed the resident/fellow note and I agree with the findings and plan. Cara Perez MD Interventional Pulmonary Medicine Pulmonary and Critical Care Medicine [facility] Pulmonary Clinic Visit Note Patient: Khadar Hoffshirin Age: 84 y.o. : 1940 Account No.: [id number] Referring physician: Dr. Kenney Chief complaint: Lung mass HPI 77-year-old male [...] sound bilaterally. No wheezing or rales CARDIOVASCULAR: Regular rate and rhythm. Normal S1 and S2. No murmur, rubs, or gallops. BACK: normal curvature ABDOMEN: Soft, non-tender, non-distended. Normal bowel sounds. No palpable masses. EXTREMITIES: No cyanosis, no edema, no calf tenderness Labs Results: Lab Results Component Value Date HGB 15.2 03/03/2024 HCT 47.8 03/03/2024 WBC 13.41 (H) 03/03/2024 Radiology: No Chest X-ray results found for the past [address] results found for the past 12 months Assessment and Plan: Diagnoses and all orders for this visit: Lung mass - CT guided percutaneous lung; Future Centrilobular emphysema (CMS/HCC) SOB (shortness of breath) NOVOA (dyspnea on exertion) Chronic hypoxic respiratory failure (CMS/HCC) Pulmonary hypertension (CMS/HCC) -Left apical lung mass measures 3.5 cm, PET avid spiculated margin. High concern of malignancy -Mediastinal adenopathy -Chronic hypoxic respiratory failure on home oxygen Former smoker - Emphysema/COPD [no prior PFT available I - Congestive heart failure - Mitral stenosis - Severe pulmonary hypertension RVSP of 63 likely group 2 related to heart disease - A-fib on anticoagulation on Xarelto Coronary artery disease status post stents placement Plan: -Will proceed with CT-guided lung biopsy given that patient has significant comorbidities, significant history of heart failure, coronary artery disease status post stents, pulmonary hypertension with RVSP 63. will be high risk for general anesthesia. Will discuss with interventional radiology in regard proceeding with CT-guided lung biopsy. If deemed not to be a good candidate for CT-guided biopsy will plan for robotic assisted bronchoscopy for tissue sampling. Patient to have cardiology clearance prior to procedure,. Patient to have repeat CT imaging for mapping. All risk and benefit of procedure discussed with patient. Patient is agreeable. -Further workup based on biopsy result -obtain pulmonary function test -Continue oxygen supplement via nasal cannula. - Continue on Trelegy along with albuterol as needed. - Continue following up with cardiology. On goal-directed medical therapy. Tamika White MD [facility] Pulmonary/Critical Care Fellow OFFICE VISIT Observed: 03/10/2024 3:00 PM Status: COMPLETED Source: [facility] [id number] Khadar Dawn 04/18/1939 M Date Provider Department Center 03/10/2024 [id number] DIXON [facility] Family History Problem Relation Age of Onset Other Father Coronary artery disease Brother Other Brother Family Status - Relation Status Age at Father Brother Level of Service:10327 [place] OFFICE/OUTPATIENT NEW MODERATE MDM 45 MINUTES Reason for Visit and Comments: Wound Check [118333] - S/p PPM implant on 03/03/[address] Rivas. Says he was not given RX for antibiotic. PROGRESS Observed: 03/10/2024 3:00 PM Status: COMPLETED Source: [facility] Cardiology - [facility] Subjective Khadar Dawn is a [...] extremities. PSYCH: appropriate mood, affect, and judgement. Pacemaker incision appears to be very good and healing well without any swelling or hematoma or oozing or redness. Recent Labs 02/29/2024 Sodium 139, potassium 4, BUN 14, creatinine 1.13, GFR above 60, glucose 245, calcium 9.1 Total bilirubin 1, AST 16, ALT 22, total protein 6.1, albumin 3.3 02/25/2024 Triglycerides 78, cholesterol 113, HDL 45, LDL 52 01/16/2024 White blood count is 18.6, hemoglobin [...] block, possible old inferior and anterior infarct Limited echo 02/21/2024 Echo: 01/10/2024 Echo 03/19/2023 Stress test: Cardiac cath: 08/03/2020 Event Monitor: Cardiac MRI: CX ray: Pulmonary function test 04/05/2023 Assessment/Plan Chronic systolic heart failure, ejection fraction on most recent echo 45 to 50% mildly reduced 02/21/2024 Currently on Coreg, Lotrel, Jardiance and Lasix. Clinically stable Coronary artery disease, Status post PTCA with stent placement of RCA 08/03/2020 Clinically stable, on Coreg, atorvastatin, and Xarelto Permanent atrial fibrillation On carvedilol for rate control and on Xarelto for anticoagulation. Last event monitor showed episodes of rapid ventricular rate and also episode of prolonged pauses. He received pacemaker Tachybradycardia syndrome, Status post dual-chamber pacemaker implantation on 03/03/2024 Today the incision appears to be healing well without any complications Severe pulmonary hypertension, most likely due to combination of left heart failure and COPD. Patient reports that he had sleep study which was negative for sleep apnea Mild aortic stenosis on most recent echo January 2024 Legs edema, most likely due to combination of severe pulmonary hypertension, being on amlodipine and probably underlying venous insufficiency, reasonably controlled on current medical management Hypertension, on Lotrel 10-20 mg daily, carvedilol 12.5 mg twice daily, Lasix 20 mg daily. He brought his blood pressure log since discharge from the hospital and it has been elevated in the 140s to 150 Hyperlipidemia, on atorvastatin, well-controlled Type 2 diabetes mellitus, on Jardiance and Glucophage COPD, evaluated to be moderate on recent PFT, he is on oxygen 1 L/min GERD Lung mass, newly diagnosed, he is going for PET scan soon History of prostate cancer Plan: Continue current management, continue medications including Lasix, Xarelto, Jardiance, and atorvastatin The patient was highly advised regarding following low-salt diet and to watch his fluid intake and to watch his weight daily and to contact us if his weight goes up with 2 pounds overnight or 4 to 5 pounds over 1 week The patient was also advised to elevate his legs while he is sitting I will increase his Coreg to 25 mg twice daily for better control of blood pressure and heart rate of A-fib. I will discontinue amlodipine/benazepril and start him on benazepril alone 20 mg daily to avoid hypotension. I advised him to check his blood pressure twice daily for 2 weeks and bring me the log Patient has chronic atrial fibrillation at least for 2 years and he had significant dilatation of his atrium, in addition patient never been on antiarrhythmic medications and never been cardioverted, he is not symptomatic and he is not a good candidate for amiodarone due to his underlying lung disease, therefore I think the likelihood of successful cardioversion is not good. Obtain fasting lipids and ALT AST in 6 months. The goal is to keep LDL cholesterol 70 or below Regarding aortic stenosis will continue to follow-up on progression by annual echocardiographic study Regarding pacemaker incision the patient was advised not to shower for another week and to continue to avoid heavy lifting and pushing and pulling for another week. Follow-up as scheduled previously 04/29/2024 Chris Dixon MD,[facility] 36 Observed: 03/10/2024 11:13 AM Status: COMPLETED Source: [facility] Regarding lab results from 1 04/27/2023: MD Kristi Horvath MA Good lipids and BMP. Continue current medications. Recheck lipids and AST ALT in 6 months Patient has follow up today with Dr. Dixon. PROCEDURE Observed: 03/03/2024 2:34 PM Status: COMPLETED Source: [facility] SINGLE CHAMBER PACEMAKER IMP LANT PROCEDURE NOTE DATE OF PROCEDURE: 03/03/2024 PERFORMING PHYSICIAN: Dr. Aaron Rivas CONSENT: Patient LOCATION: EP Lab PROCEDURE PERFORMED: 1. Implantation of pacemaker ([employer]) 2. Ultrasound guided venous access INDICATIONS: [...] using modified seldinger technique using a 5 [place] micro-puncture needle on one occasion and 0.35 [...] for the device above the muscle. 6 [place] Safesheaths were placed over the wire. An active fixation [employer] pacing lead was then delivered through [...] any concerns. Aaron Rivas MD Cardiac Electrophysiology NURSNOTE Observed: 03/03/2024 2:22 PM Status: COMPLETED Source: [facility] RN educated pt on d/c instru ctions. This included: site care, limited physical activity, [...] off of unit with all of belongings. ANEKavon Observed: 03/03/2024 11:57 AM Status: COMPLETED Source: [facility] Patient: Khadar Dawn Procedure Information Date/Time: 03/03/24 1130 Procedure: Implant PPM - [employer] Location: [facility] PRINCIPAL SCIENTIST 1 EP / [facility]ASCULAR [facility] (Cath) Providers: Aaron Rivas MD Clinical information reviewed: Allergies Meds Physical Exam Airway Mallampati: II TM distance: >3 FB Neck ROM: full Cardiovascular Dental Pulmonary Abdominal Anesthesia Plan ASA 3 CSE Anesthetic plan and risks discussed with patient. Use of blood products discussed with patient who. Additional Equipment Requests HP Observed: 03/03/2024 11:56 AM Status: COMPLETED Source: [facility] Cardiology - [facility] HPI Khadar Dawn is a 84 y.o. year old male patient being seen for Hospital Follow-up (He was admitted to [facility] last month for CHF. Say he's [...] normal left ventricle systolic function. On Coreg, benazepril, Lasix, and Jardiance. Clinically stable Coronary artery disease, Status post PTCA with stent placement of RCA 08/03/2020 Clinically stable, on Coreg, atorvastatin, and Xarelto Severe pulmonary hypertension, most likely due to combination of left heart failure and COPD. Patient reports that he had sleep study which was negative for sleep apnea Mild aortic stenosis on most recent echo January 2020 Legs edema, most likely due to combination of severe pulmonary hypertension, being on amlodipine and probably underlying venous insufficiency Hypertension, on Lotrel 10-20 mg daily, carvedilol 12.5 mg twice daily, Lasix 20 mg daily. He brought his blood pressure log since discharge from the hospital and it has been elevated Hyperlipidemia, on atorvastatin Type 2 diabetes mellitus, on Jardiance and Glucophage COPD, evaluated to be moderate on recent PFT, he is on nocturnal oxygen to 1 L/min GERD Lung mass, newly diagnosed, he is going for PET scan soon History of prostate cancer I discussed the procedure in length with figures to the patient and went over the risks, benefits and alternatives of the PPM implantation procedure. I stated to the patient that the risk can be classified as major and minor complications. The minor include discomfort over the incision site, erythema. The major complications include pneumothorax, hemothorax, thromboembolism including DVT stroke systemic emboli endorgan damage and even . We also discussed the possibility of lead perforation leading to pericardial effusion or tamponade which may or may not require surgical intervention as well as the possibility of valve damage. Overall the risk of these complications ranged anywhere from 1-5%.Patient verbalized understanding and have agreed to proceed with the procedure. Aaron Rivas MD Cardiac Electrophysiology CBC Collected: 03/03/2024 10:45 AM Status: U NK Source: [facility] TYPE CODE TESTS RESULT OUT OF RANGE REFERENCE UNITS LAB [id number] LEUKOCYTES(10*3/ U L) IN BLOOD BY AUTOMATED COUNT 13.41 High 4.00-10.60 10*3/uL LAB [id number] ERYTHROCYTES (10*6/UL) IN BLOOD BY AUTOMATED COUNT 5.16 4.20-5.70 10*6/uL LAB [id number] HEMOGLOBIN (G/DL ) IN BLOOD 15.2 13.0-17.0 g/dL LAB [id number] HEMATOCRIT (%) I N BLOOD BY AUTOMATED COUNT 47.8 39.0-55.0 % LAB 2491662 ERYTHROCYTE MEAN CORPUSCULAR VOLUME (FL) BY AUTOMATED COUNT 92.6 82.0-98.0 fL LAB [id number] ERYTHROCYTE MEAN CORPUSCULAR HEMOGLOBIN (PG) BY AUTOMATED COUNT 29.5 27.0-33.0 pg LAB [id number] ERYTHROCYTE MEAN CORPUSCULAR HEMOGLOBIN CONCENTRATION (G/DL) BY AUTOMATED 31.8 Low 32.0-35.0 g/dL LAB 2471506 ERYTHROCYTE DISTRIBUTION WIDTH (RATIO) BY AUTOMATED COUNT 17.1 High 11.5-15.0 % LAB [id number] PLATELETS (10*3/UL) IN BLOOD AUTOMATED COUNT 257 150-400 10*3/uL Performed By: #### [id number] ## ## [facility] [address] [place] [address] NURSNOTE Observed: 03/03/2024 10:17 AM Status: COMPLETED Source: [facility] CHG wipes and betadine nasal swabs completed. 36 Observed: 02/25/2024 10:41 AM Status: COMPLETED Source: [facility] Patient was informed of mess age from Dr Rivas. Patient was not pleased with having a PPM put in and will need to think about that. Catherine BRADLEY 36 Observed: 02/25/2024 9:47 AM Status: COMPLETED Source: [facility] Per Dr. Rivas, patient need s PPM due to sinus pauses on Holter monitor. Order placed. Waiting for patient to call me back so I can inform him. He had lipids drawn this morning, and I was able to add on BMP. ORDERS ONLY Observed: 02/25/2024 12:00 AM Status: COMPLETED Source: [facility] [id number] Khadar Dawn 1 04/18/1939 [facility] Provider Department Center 02/25/2024 KRISTI CORNELL RAE [facility] Family History Problem Relation Age of Onset Other Father Coronary artery disease Brother Other Brother Family Status - Relation Status Age at Father Brother PROGRESS Observed: 02/22/2024 5:44 PM Status: COMPLETED Source: [facility] Today I reviewed patient 3-d ay event monitor and he is in persistent [...] Dr. Rivas next time he is in [place] office 03/18/2024. The patient was advised to come to the emergency room immediately if he has any dizziness. DOCUMENTATION Observed: 02/22/2024 12:00 AM Status: COMPLETED Source: [facility] [id number] Khadar Dawn 1 04/18/1939 [facility] Provider Department Center 02/22/2024 CHRIS ARTHUR RAE [facility] Family History Problem Relation Age of Onset Other Father Coronary artery disease Brother Other Brother Family Status - Relation Status Age at Father Brother OFFICE VISIT Observed: 02/08/2024 11:20 AM Status: COMPLETED Source: [facility] [id number] Khadar Dawn 1 04/18/1939 [facility] Provider Department Center 02/08/2024 CHRIS ARTHUR Family History Problem Relation Age of Onset Other Father Coronary artery disease Brother Other Brother Family Status - Relation Status Age at Father Brother Level of Service:28528 [place] OFFICE/OUTPATIENT ESTABLISHED MOD [facility] 30 MIN Reason for Visit and Comments: Hospital Follow-up [832] - He was admitted to [facility] last month for CHF. Say he's feeling much better s/p discharge. Coronary Artery Disease [187] - Denies chest pain. Congestive Heart Failure [127] - Denies SOB, and LE edema resolves by morning. Using O2 at nighttime. Atrial Fibrillation [80] - Denies palpitations, lightheadedness/syncope, and bleeding on Xarelto. Hypertension [231362] Hyperlipidemia [182] PROGRESS Observed: 02/08/2024 11:20 AM Status: COMPLETED Source: [facility] Cardiology - [facility] Subjective Khadar Dawn is a 83 y.o. year old male patient being seen for Hospital Follow-up (He was admitted to [facility] last month for CHF. Say he's [...] CX ray: Pulmonary function test 04/05/2023 Assessment/Plan Congestive heart failure, recent acute episode, it was difficult to evaluate the patient ejection fraction on recent echo but prior echoes showed normal left ventricle systolic function. On Coreg, benazepril, Lasix, and Jardiance. Clinically stable Coronary artery disease, Status post PTCA with stent placement of RCA 08/03/2020 Clinically stable, on Coreg, atorvastatin, and Xarelto Permanent atrial fibrillation On carvedilol for rate control and on Xarelto for anticoagulation. His heart rate appears to be on the high side in the 90s to 100 on his blood pressure log Severe pulmonary hypertension, most likely due to combination of left heart failure and COPD. Patient reports that he had sleep study which was negative for sleep apnea Mild aortic stenosis on most recent echo January 2020 Legs edema, most likely due to combination of severe pulmonary hypertension, being on amlodipine and probably underlying venous insufficiency Hypertension, on Lotrel 10-20 mg daily, carvedilol 12.5 mg twice daily, Lasix 20 mg daily. He brought his blood pressure log since discharge from the hospital and it has been elevated Hyperlipidemia, on atorvastatin Type 2 diabetes mellitus, on Jardiance and Glucophage COPD, evaluated to be moderate on recent PFT, he is on nocturnal oxygen to 1 L/min GERD Lung mass, newly diagnosed, he is going for PET scan soon History of prostate cancer Plan: Continue current management The patient was highly advised regarding following low-salt diet and to watch his fluid intake and to watch his weight daily and to contact us if his weight goes up with 2 pounds overnight or 4 to 5 pounds over 1 week The patient was also advised to elevate his legs while he is sitting I will increase his Coreg to 25 mg twice daily for better control of blood pressure and heart rate. I advised him to check his blood pressure twice daily for 2 weeks and bring me the log I will obtain limited echo with Lumason to verify his ejection fraction because it could not be evaluated on last echo because of poor quality Patient has chronic atrial fibrillation at least for 2 years and he had significant dilatation of his atrium, in addition patient never been on antiarrhythmic medications and never been cardioverted, he is not symptomatic and he is not a good candidate for amiodarone due to his underlying lung disease, therefore I think the likelihood of successful cardioversion is not good. The patient also did not like to proceed with that. However I need to verify that his ventricular rate is under control, on his blood pressure log he recorded couple events when his heart rate was in the 100s. Therefore I we will provide him with 3-day Holter monitor to evaluate ventricular rate control. Obtain fasting lipids and ALT AST soon. The goal is to keep LDL cholesterol 70 or below Regarding aortic stenosis will continue to follow-up on progression by annual echocardiographic study Follow-up with me in 3 months Chris Dixon MD,[facility] UROLOGY OFFICE/CLINIC NOTE Observed: 11:18 AM Status: F Source: [facility] Urology Office/Clinic Note Chief Complaint 1 year follow up HPI Staff 1 yr w/ PSA. Dx: BPH with obstruction, hx of prostate cancer *Brachytherapy 2014*, nocturia, renal cyst, gross hematuria. *No urological meds NEG FISH/cytol 10/13/22. S/p Cysto 10/17/22. TAYLA done 10/19/22 at [facility] - results given over the phone. [...] hematuria (R31.0: Gross hematuria) Pt presented to [facility] ER 09/23/22 with gross hematuria. Only for one day. Neg urine culture. S/p cysto 10/17/22 ~neg for b.t. or lesions. Typical telangiectatic radiation changes. FISH/cytol neg. Renal US 10/19/22 [facility] - Small bladder diverticulum. UA today shows trace-intact blood. Denies recurrence of gross hematuria. -Call if gross blood recurs 4. Renal cyst (N28.1: Cyst of kidney, acquired) CT AP w/o con 09/23/22 - several adjacent cysts inferior of the Rt kidney measuring up to 8.5 cm. Renal US 10/19/22 [facility] - bilateral renal cysts favoring benign etiology, also seen on prior MRI and CT studies. -No follow up required Follow-up With When Contact Information ALFIE WISE, Yousuf Barroso, URL [facility] [place] [address]- Additional Instructions: 1 year w/ PSA Patient Education Benign Prostatic Hyperplasia Lianet Torres, personally scribed for Dr. Jugde on 10/19/2023 11:19:03. . Documentation recorded by the scribeLianet, accurately reflects the services(s) I performed and [...] Tab, Oral, Daily simvastatin, Oral Xarelto, Oral Allergies No Known Allergies Social History Tobacco Former smoker, quit more than 30 days ago Tobacco Use:. Never Smokeless Tobacco Use:., 10/19/2023 Family History Family history is negative Immunizations Vaccine Date Status Comments SARS-CoV-2 (COVID-19) mRNAMUL.ORD![id number] 11/23/2021 Recorded SARS-CoV-2 (COVID-19) mRNA BNT-162b2 vax 12/30/2020 Recorded 2023-10-19: TPV75 SARS-CoV-2 (COVID-19) mRNA-1273 vaccine 05/13/2020 Recorded 2023-10-19: TPV75 influenza virus vaccine, inactivated - Not Given Patient Refuses SARS-CoV-2 (COVID-19) mRNA-1273 vaccine 04/15/2020 Recorded SARS-CoV-2 (COVID-19) mRNA-1273 vaccine 2020 Recorded pt has had 3 shots to date but does not know the dates pneumococcal 13-valent vaccine 12/20/2016 Recorded Lab Results Ambulatory Point of Care Results Bilirubin Urine Dipstick: Negative (10/19/23 10:55:00) Blood Urine Dipstick: Trace-intact (10/19/23 10:55:00) Glucose Urine Dipstick: 3+ 1000 mg/dl (10/19/23 10:55:00) Ketones Urine Dipstick: Negative (10/19/23 10:55:00) Leukocytes Urine Dipstick: Negative (10/19/23 10:55:00) Nitrite Urine Dipstick: Negative (10/19/23 10:55:00) Protein Urine Dipstick: Negative (10/19/23 10:55:00) Specific [place] Urine Dipstick: 1.010 (10/19/23 10:55:00) Urine Appearance Urine Dipstick: Clear (10/19/23 10:55:00) Urine Color Urine Dipstick: Yellow (10/19/23 10:55:00) Urobilinogen Urine Dipstick: Normal 0.2-1 EU/dl (10/19/23 10:55:00) pH Urine Dipstick: 6 (10/19/23 10:55:00) Result Comment: Electronical ly Signed By: Yousuf JUDGE MD\.br\Date and Time Signed: 10/19/23 11:20 EDT\.br\Electronically Co-Signed By: Lianet Massey.br\Date and Time Co-Signed: 10/19/23 11:19 EDT PATIENT EDUCATION Observed: 10/19/2023 11:17 AM Status: F Source: [facility] Patient Education Urology Benign Prostatic Hyperplasia Benign [...] Follow these instructions at home: ? Take pyma-rrm-lbdshii and prescription medicines only as told by [...] effects from the medicine you are taking. ? Your urine becomes very dark or has a bad smell. ? Your lower abdomen becomes distended and you have trouble passing urine. Get help right away if: ? You have a fever or chills. ? You suddenly cannot urinate. ? You feel light-headed or very dizzy, or you faint. ? There are large amounts of blood or clots in your urine. ? Your urinary problems become hard to manage. ? You develop moderate to severe low back or flank pain. The flank is the side of your body between the ribs and the hip. These symptoms may be an emergency. Get help right away. Call 911. ? Do not wait to see if the symptoms will go away. ? Do not drive yourself to the hospital. Summary ? Benign prostatic hyperplasia (BPH) is an enlarged prostate that is caused by the normal aging process. It is not caused by cancer. ? An enlarged prostate can press on the urethra. This can make it hard to pass urine. ? This condition is more likely to develop in men older than 50 years. ? Get help right away if you suddenly cannot urinate. This information is not intended to replace advice given to you by your health care provider. Make sure you discuss any questions you have with your health care provider. Document Revised: 09/07/2021 Document Reviewed: 09/07/2021 ElseKauli Patient Education ? 2022 [employer]lo. PROGRESS Observed: 09/25/2023 10:00 AM Status: COMPLETED Source: [facility] Patient here for 6 mo follow up chronic systolic heart failure, permanent [...] All other systems reviewed and are negative. PROGRESS Observed: 09/25/2023 10:00 AM Status: COMPLETED Source: [facility] Cardiovascular Medicine [facility] SUBJECTIVE Chief Complaint Patient presents with [...] Final QTC CALCULATION(BAZETT) 08/03/2020 428 ms Final R-Sage 08/03/2020 -82 degrees Final T Wave Sage 08/03/2020 51 degrees Final Diagnosis 08/03/2020 Final [...] CBCDIF , BNP , LASAP , RED 06/27/23 CBC - unremarkable Cr 0.86, BUN 18, K 4.5, eGFR >60, AST 21, ALT 25 Chol 113, trig 62, HDL 42, LDL 58 TSH 1.967 hgbA1c 7 09/23/2022 Cr 1.08, BUN 25, eGFR >60 10/25/21 bun 30 Cr 1.18, K= 4.2 normal Testing/Procedures: PFTs 04/05/2023 ECHO 03/19/2023 Mild concentric LV hypertrophy with normal systolic function, LVEF 55-60% Moderately dilated RV with preserved systolic function Severe biatrial dilatation Moderate tricuspid regurg Mild to moderate MR Patient appears to be in a.fib during exam Cardiac cath 08/03/2020 06/10/2020 Echo ASSESSMENT/PLAN: Diagnoses and all orders for this visit: Chronic systolic heart failure (CMS/HCC) Coronary artery disease, unspecified vessel or lesion type, unspecified whether angina present, unspecified whether [place] or transplanted heart Right ventricular dilation Pulmonary emphysema, unspecified emphysema type (CMS/HCC) Persistent atrial fibrillation (CMS/HCC) Benign hypertensive heart disease with heart failure (CMS/HCC) Mixed hyperlipidemia Systolic heart failure (CMS/HCC), chronic -[facility] II -Recent ECHO 03/19/2023 showed preserved LVEF -GDMT- continue coreg, benazepril, Jardiance -He has leg swelling that is controlled with current diuretic regimen. -Continue lasix 20mg daily. RV dilatation -Recent ECHO from 03/09/2023 showed moderate RV dilatation -He also had a CT abd/pel 09/23/2022 that noted emphysema in the lung bases. -He is a former smoker. -PFTs completed showing moderate obstructive process. He denies any sx's of SOB. Recommended follow-up with PCP who ordered an inhaler. Benign hypertensive heart disease with heart failure (CMS/HCC) -Controlled -Continue coreg, amlodipine-benazepril Atrial fibrillation (CMS/HCC) -QTG2AW2-KRPi= 5 (age+2, HF, CAD, HTN) -He denies any sx's or issues with bleeding -Continue Xarelto and BB. Coronary atherosclerosis -08/2020: PCI to RCA, mild dz to Lcx and LAD -He denies angina or dyspnea -Continue atorvastatin and carvedilol. No ASA due to being on Xarelto and no active issues with his CAD to help prevent issues with bleeding. Hyperlipidemia -LDL 58 per 06/27/23 labs - well controlled -Continue atorvastatin. Follow up in about 6 months (around 03/27/2024). Jacky Briggs NP [facility] Cardiovascular Medicine OFFICE VISIT Observed: 09/25/2023 10:00 AM Status: COMPLETED Source: [facility] [id number] Khadar Dawn 1 04/18/1939 M Date Provider Department Center 09/25/2023 Landy-JACKY BRIGGS CARD [facility] Family History Problem Relation Age of Onset Other Father Coronary artery disease Brother Other Brother Family Status - Relation Status Age at Father Brother Level of Service:44225 [place] OFFICE/OUTPATIENT ESTABLISHED LOW MDM 20 MIN Reason for Visit and Comments: Coronary Artery Disease [187] Atrial Fibrillation [80] ALLERGIES DATE TYPE / CODE NAME / CODE REACTION SEVERITY SOURCE 08/12/2018 Drug Allergy/5207917 02(SNOMED CT) No Known Allergies/S982776229 (RXNORM) Unknown [facility] Drug Class/736643511 (SNOMED CT) NO KNOWN ALLERGIES [facility] SYSTEMIC/544246 006(SNOMED CT) NO KNOWN ALLERGIES [facility] /616643000(SN OMED CT) No Known Allergies [facility] ENCOUNTERS ADMIT/DISCHARGE ACCOUNT NUMBER ADMITTING ENCOUNTER CLASS LOCATION SOURCE 07/18/2024 [id number] Ambulatory Building:[facility] 07/04/2024/07/05/19 [id number] Ambulatory Building:[facility] 07/02/2024 [id number] Ambulatory Building:[facility] 06/17/2024/06/18/19 [id number] Ambulatory Building:[facility] S SEEMA OPHT [facility] 06/13/2024/06/14/19 25 [id number] Ambulatory Building:[facility] 06/10/2024/06/11/19 25 [id number] Ambulatory Building:[facility] 06/06/2024/06/07/19 [id number] Ambulatory Building:[facility] 05/14/2024/05/15/19 25 [id number] [facility]05[facility]06[facility]19 25 [id number] [facility]04[facility] 25 [id number] Ambulatory [facility] HospitalBuil ding:[facility] 04/23/2024/04/23/19 25 [id number] Ambulatory [facility] HospitalBuil ding:[facility] 04/23/2024/04/23/19 25 [id number] Ambulatory [facility] HospitalBuil ding:[facility] 04/22/2024/04/22/19 25 [id number] [facility] 04/17/2024/04/16/19 25 [id number] Ambulatory [facility] HospitalBuil ding:[facility] 04/16/2024/04/16/19 25 [id number] Ambulatory [facility] HospitalBuil ding:[facility] 04/09/2024/04/09/19 25 [id number] Ambulatory Building:[facility] C XRAY [facility] 04/09/2024/04/09/19 25 [id number] Ambulatory Building:[facility] 04/09/2024/04/09/19 25 [id number] Ambulatory Buildin [id number] [facility] 04/09/2024/04/09/19 25 [id number] Ambulatory Building:[facility] 04/09/2024/04/09/19 25 [id number] Ambulatory Building:[facility] C XRAY [facility] 03/20/2024 [id number] Ambulatory Buildin [address] [facility] 03/10/2024/03/10/19 25 [id number] Ambulatory Building:[facility] 03/07/2024/03/07/19 25 [id number] Ambulatory Buildin [id number] [facility] 03/03/2024 [id number] Ambulatory Building:[facility] 03/03/2024/03/03/20 [id number] AARON RIVAS Ambulatory Buildin 0Room: [facility] VASCULAR POOLBed: [address] [facility] 02/08/2024/02/08/20 [id number] Ambulatory Building:[facility] 11/27/2023/11/27/19 [id number] Ambulatory Building:NOM S NB OPHT [facility] EPIC 10/19/2023/10/19/19 [id number] Ambulatory [place]:EU [place]parris[place]Room : Exam 1 [facility] 09/25/2023/09/25/19 [id number] Ambulatory Building:[facility] 08/24/2023/08/24/19 [id number] Ambulatory Building:NOM S OPHT [facility] EPIC PAYERS ENCOUNTER GUARANTOR PAYER SUBSCRIBER SOURCE 07/18/2024 Primary Insurance:AETNA MEDICARE ADVANTAGEPolicy Number: [id number] Date:2021-03-05 KHADAR TAYLOROB: [id number] [address] 07/04/2024 Primary Insurance:AETNA MEDICARE ADVANTAGEPolicy Number: [id number] Date:2021-03-05 KHADAR TAYLOROB: [id number] [address] 06/17/2024 KHADAR TAYLOROB: [id number] [address] [address]Oml: () Primary Insurance:AETNA MEDICARE ADVANTAGEPolicy Number: [id number] Date:2021-03-05 KHADAR TAYLOROB: [id number] [address] [facility] EPIC 06/13/2024 KHADAR TAYLOROB: [address] [address]Klr: (HP) Primary Insurance:AETNA MEDICAREPolicy Number: [id number] Date:2023-03-05 KHADAR AUSTIN: [id number] [address]Urf: (HP) [facility] 06/10/2024 KHADAR AUSTIN: [id number] [address] [address]Epu: (HP) Primary Insurance:AETNA MEDICAREPolicy Number: [id number] Date:2023-03-05 KHADAR AUSTIN: [id number] [address] [address]Onv: (HP) [facility] 06/06/2024 KHADAR AUSTIN: [id number] [address] [address]Qyg: (HP) Primary Insurance:AETNA MEDICAREPolicy Number: [id number] Date:2023-03-05 KHADAR AUSTIN: [id number] [address] [address]Suc: (HP) [facility] 05/14/2024 Khadar Ferraraar[address] [address]Vbs: (HP) Primary Insurance:Self PayPolicy Number: Effective Date:2024-05-14 [facility] Primary Insurance:AETNA MEDICARE ADVANTAGEPolicy Number: [id number] Date:2021-03-05 KHADAR AUSTIN: [id number] [address] [address] [facility] 04/30/2024 Primary Insurance:AETNA MEDICARE PPOPolicy Number: [id number] Date:8755-39-70Ydjr Name:Sheron AUSTIN: [id number] [place] [id number] [facility] 04/23/2024 Primary Insurance:AETNA MEDICARE PPOPolicy Number: [id number] Date:0261-81-77Mmop Name:Sheron Smart NORMAN: [id number] [place] [id number] [facility] 04/23/2024 Primary Insurance:AETNA MEDICARE PPOPolicy Number: [id number] Date:7589-31-08Gjhx Name:Sheron Smart NORMAN: [id number] 04/22/2024 Khadar Ferraraar6833 [address]Tel: (HP) Primary Insurance:Aetna MCR PFFSPolicy Number: [id number] Date:0590-97-90VK [place] [address] [address]SL: Khadar Austin: [id number] [place] [address]Tel: (HP) [facility] 04/22/2024 Secondary Insurance:Self PayPolicy Number: Effective Date:2024-04-18 [facility] 04/17/2024 Primary Insurance:AETNA MEDICARE PPOPolicy Number: [id number] Date:3647-55-20Ueyv Name:Sheron Smart NORMAN: [id number] [address] 04/16/2024 Primary Insurance:AETNA MEDICARE PPOPolicy Number: [id number] Date:7837-09-61Sptr Name:Sheron KHADAR Berry AUSTIN: [id number] [address] 04/09/2024 Primary Insurance:AETNA MEDICARE ADVANTAGEPolicy Number: [id number] Date:2021-03-05 KHADAR TAYLOROB: [id number] [address] 04/09/2024 Primary Insurance:AETNA MEDICARE ADVANTAGEPolicy Number: [id number] Date:2021-03-05 KHADAR TAYLOROB: [id number] [address] 04/09/2024 Primary Insurance:AETNA MEDICARE ADVANTAGEPolicy Number: [id number] Date:2021-03-05 KHADAR AUSTIN: [id number] [address] 04/09/2024 Primary Insurance:AETNA MEDICARE ADVANTAGEPolicy Number: [id number] Date:2021-03-05 KHADAR AUSTIN: [id number] [address] 04/09/2024 Primary Insurance:AETNA MEDICARE ADVANTAGEPolicy Number: [id number] Date:2021-03-05 KHADAR AUSTIN: [id number] [address] 03/20/2024 Primary Insurance:AETNA MEDICARE ADVANTAGEPolicy Number: [id number] Date:2021-03-05 KHADAR AUSTIN: [id number] [address] 03/10/2024 Primary Insurance:AETNA MEDICARE ADVANTAGEPolicy Number: [id number] Date:2021-03-05 KHADAR AUSTIN: [id number] [address] 03/07/2024 Primary Insurance:AETNA MEDICARE ADVANTAGEPolicy Number: [id number] Date:2021-03-05 KHADAR TAYLOROB: [id number] [address] [address] [facility] 03/03/2024 Primary Insurance:AETNA MEDICARE ADVANTAGEPolicy Number: [id number] Date:2021-03-05 KHADAR TAYLOROB: [id number] [address] [address] [facility] 03/03/2024 Primary Insurance:AETNA MEDICARE ADVANTAGEPolicy Number: [id number] Date:2021-03-05 KHADAR TAYLOROB: [id number] [address] 02/08/2024 Primary Insurance:AETNA MEDICARE ADVANTAGEPolicy Number: [id number] Date:2021-03-05 KHADAR AUSTIN: [id number] [place] [id number] [facility] 11/27/2023 KHADAR AUSTIN: [id number] [address] [address]Nwu: (HP) Primary Insurance:AETNA MEDICARE ADVANTAGEPolicy Number: [id number] Date:2021-03-05 KHADAR AUSTIN: [id number] [address] [place] [address] [facility] 10/19/2023 KHADAR AUSTIN: [id number] [facility] 29Tel: ~~(5 6 (HP) Primary Insurance:AETNAPolicy Number: [id number] Date:5946-11-01HY KOTA 368955JPCHANDRIKA MAYES [address]GI: KHADAR SOLORIO [facility] 09/25/2023 Primary Insurance:AETNA MEDICARE ADVANTAGEPolicy Number: [id number] Date:2021-03-05 KHADAR AUSTIN: [id number] [address] [address] [facility] 08/24/2023 KHADAR AUSTIN: [id number] [address] [address]Snn: () Primary Insurance:AETNA MEDICARE ADVANTAGEPolicy Number: [id number] Date:2021-03-05 KHADAR AUSTIN: [id number] [address] [facility] EPIC
--- OUTSIDE RECORDS SUMMARY | 2024-07-18 10:47 | XMS_ITS ---
Author Name Auto Generated Organization OHIP Support Name Relationship Address Phone SUREKHA DAWN Next of Kin Unknown [phone] LÓPEZ, SUREKHA Next of Kin Unknown [phone] LÓPEZ, SUREKHA Next of Kin Unknown [phone] Roshan Dawnet Next of Kin [address] [place] [phone] + LÓPEZ, SUREKHA Next of Kin Unknown [phone] López, Surekha Next of Kin [address] [place] [phone] + LÓPEZ, SUREKHA Next of Kin Unknown [...] [phone] Care Team Providers Care Assembler Final Name Role Phone CARA PEREZ Attending Unavailable [...] Unavailable ZAHLERKELY Attending Unavailable ZAHLERKELY Attending Unavailable HOY, JOSY M Primary Care Unavailable HOY, JOSY M Referring Unavailable HOY, JOSY M Referring Unavailable HOY, JOSY M Primary Care Unavailable HOY, JOSY M Referring Unavailable HOY, JOSY M Primary Care Unavailable HEMA RODRIGUEZORVA Referring Unavailable ENGELER, G JUNO Attending Unavailable HOY, JOSY M Primary Care Unavailable ENGELER, G JUNO Referring Unavailable HOY, JOSY M Primary Care Unavailable ENGELER, G JUNO Referring Unavailable ENGELER, G JUNO Attending Unavailable HOY, JOSY M Primary Care Unavailable ENGELER, G JNUO Referring Unavailable ENGELER, G JUNO Attending Unavailable HOY, JOSY M Primary Care Unavailable ENGELER, G JUNO Referring Unavailable HOY, JOSY M Primary Care Unavailable Hoy, Josy M Admitting Unavailable Hoy, Josy M Attending Unavailable Margoteler, GMaria D Fraire Admitting Unavailable Engeler GMaria D Fraire Attending Unavailable Hoy, Josy M Primary Care Unavailable Yousuf JUDGE Attending Unavailable PROBLEMS DATE TYPE CONDITION / CODE ATTENDING STATUS [facility] 02/08/2024 Admitting Diagnosis Chronic combined systolic (congestive) and diastolic (congestive) heart failure / I50.42(ICD-10) CHRIS DIXON Active [facility] 07/02/2024 Admitting Diagnosis Encounter for adjustment and management of other part of cardiac pacemaker / Z45.018(ICD-10) NA Active [facility] 06/13/2024 Admitting diagnosis Encounter for therapeutic drug level monitoring / Z51.81(ICD-10) Active [facility] 06/10/2024 Admitting diagnosis Bacteremia / R78.81(ICD-10) NA Active [facility] 05/05/2024 Admitting Diagnosis Presence of cardiac pacemaker / Z95.0(ICD-10) CHRIS DIXON Active [facility] 02/25/2024 Admitting Diagnosis Other specified heart block / I45.5(ICD-10) CHRIS DIXON Active [facility] 04/07/2022 Admitting Diagnosis Permanent atrial fibrillation / I48.21(ICD-10) CHRIS DIXON Active [facility] 04/07/2022 Admitting Diagnosis Mixed hyperlipidemia / E78.2(ICD-10) CHRIS DIXON Active [facility] 04/30/2024 Active Malignant neopla sm of unspecified part of unspecified bronchus or lung (HCC) / C34.90(ICD-10) NA Active [facility] 02/08/2024 Admitting Diagnosis Pulmonary hypertension, unspecified / I27.20(ICD-10) [facility] 02/08/2024 Admitting Diagnosis Other nonspecific abnormal finding of lung field / R91.8(ICD-10) ANA [facility] Active [facility] 03/20/2024 Admitting Diagnosis Centrilobular emphysema / J43.2(ICD-10) ANA [facility] 03/20/2024 Admitting Diagnosis Shortness of breath / R06.02(ICD-10) [facility] Active [facility] 03/20/2024 Admitting Diagnosis Other forms of dyspnea / R06.09(ICD-10) [facility] 03/20/2024 Admitting Diagnosis Chronic respiratory failure with hypoxia / J96.11(ICD-10) [facility] 04/07/2022 Admitting Diagnosis Chronic atrial fibrillation, unspecified / I48.20(ICD-10) AARON RIVAS Active [facility] 02/08/2024 Admitting Diagnosis Nonrheumatic aortic (valve) stenosis / I35.0(ICD-10) CHRIS DIXON Active [facility] 10/23/2022 Admitting Diagnosis Type 2 diabetes mellitus without complications / E11.9(ICD-10) [facility] Active [facility] 04/07/2022 Admitting Diagnosis Hypertensive heart disease with heart failure / I11.0(ICD-10) [facility] Active [facility] 04/07/2022 Admitting Diagnosis Atherosclerotic heart disease of [place] coronary artery without angina pectoris / I25.10(ICD-10) [facility] Active [facility] 04/07/2022 Admitting Diagnosis Longstanding persistent atrial fibrillation / I48.11(ICD-10) [facility] Active [facility] 04/07/2022 Admitting Diagnosis Pure hypercholesterolemia, unspecified / E78.00(ICD-10) [facility] Active [facility] PROCEDURES No Procedure Records Found RESULTS 36 Observed: 07/22/2024 12:02 PM Status: COMPLETED Source: [facility] Oncology is calling, states pt bp is 200/81, he is seeing Dr kenney and will let us know TELEPHONE Observed: 07/21/2024 12:00 AM Status: COMPLETED Source: [facility] [id number] Khadar Dawn 1 04/18/1939 M Date Provider Department Center 07/21/2024 [facility] Family History Problem Relation Age of Onset Other Father Coronary artery disease Brother Other Brother Family Status - Relation Status Age at Father Brother PROGRESS Observed: 07/04/2024 10:40 AM Status: COMPLETED Source: [facility] [...] primary care physician send my office in [place] a message that patient has positive blood [...] IV antibiotics for 3 weeks in the detention with resolution of bacteremia. I was contacted [...] with me in 3 months Chris Dixon MD,[facility] OFFICE VISIT Observed: 07/04/2024 10:40 AM Status: COMPLETED Source: [facility] [id number] Khadar Dawn 1 04/18/1939 M Date Provider Department Center 07/04/2024 [id number] DIXON [facility] Family History Problem Relation Age of Onset Other Father Coronary artery disease Brother Other Brother Family Status - Relation Status Age at Father Brother Level of Service:75232 IN OFFICE/OUTPATIENT ESTABLISHED MOD MDM 30 MIN Reason for Visit and Comments: Congestive Heart Failure [127] - PPM was interrogated in May 2024. Coronary Artery Disease [187] - says Dr. Kenney stopped atorvastatin and lisinopril temporarily due to stomach pain/hiatal hernia. Atrial Fibrillation [80] - He is now on digoxin and potassium. Valve Disorder [3372] Hyperlipidemia [182] Hypertension [108829] Shortness of Breath [107339] Fatigue [46] Edema [[id number]] - Says he saw Dr. Kenney yesterday for LE edema. He increased his furosemide to twice daily. VANCOMYCIN TROUGH Collected: 06/13/2024 9:30 AM Stat us: F Source: [facility] TYPE CODE TESTS RESULT OUT OF RANGE REFERENCE UNITS LAB VANTR(LOINC) Vancomycin Trough 12.3 10.0-20.0 ug/mL LAB VNCTO(LOINC) Dose amount, Unknown LAB VNCTD(LOINC) Date last dose, Unknown LAB VNCTT(LOINC) Time last dose, Unknown Performed By: #### VNCT #### [facility] [address] [place] [address] Deputy Sheriff Lieutenant: Lit Peralta MD VANCOMYCIN TROUGH Collected: 06/10/2024 9:30 AM Stat us: F Source: [facility] TYPE CODE TESTS RESULT OUT OF RANGE REFERENCE UNITS LAB VANTR(LOINC) Vancomycin Trough 12.7 10.0-20.0 ug/mL LAB VNCTO(LOINC) Dose amount, Unknown LAB VNCTD(LOINC) Date last dose, Unknown LAB VNCTT(LOINC) Time last dose, Unknown Performed By: #### VNCT #### [facility] [address] [place] [address] Deputy Sheriff Lieutenant: Lit Peralta MD VANCOMYCIN TROUGH Collected: 06/06/2024 12:00 AM Sta tus: F Source: [facility] TYPE CODE TESTS RESULT OUT OF RANGE REFERENCE UNITS LAB VANTR(LOINC) Vancomycin Trough 19.4 10.0-20.0 ug/mL LAB VNCTO(LOINC) Dose amount, UNK LAB VNCTD(LOINC) Date last dose, UNK LAB VNCTT(LOINC) Time last dose, Unknown Performed By: #### VNCT #### [facility] [address] [place], [place] [id number] Deputy Sheriff Lieutenant: Lit Peralta MD PROGRESS Observed: 05/26/2024 12:48 PM Status: COMPLETED Source: [facility] On Sunday I called to puneet morin with the patient and his sister, that after discussion with Dr. Arriaga, we recommend going to either [facility] or [facility] for evaluation and treatment. 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 The patient was reluctant to go. I explained our thoughts and the risks of not going. He then wanted me to talk it over with his sister. She reported that his was just taken by EMS to [facility] s/t not feeling well. The sister reported that they would try and make it to the hospital on Sunday. DOCUMENTATION Observed: 05/26/2024 12:00 AM Status: COMPLETED Source: [facility] [id number] Khadar Dawn 1940 [facility] Provider Department Center 05/26/2024 [id number] ESPITIA [facility] Family History Problem Relation Age of Onset Other Father Coronary artery disease Brother Other Brother Family Status - Relation Status Age at Father Brother PROGRESS Observed: 05/21/2024 4:00 PM Status: COMPLETED Source: [facility] Dr. Kenney the patient's primar care physician send my office in [place] a message that patient has positive blood [...] Observed: 05/21/2024 12:00 AM Status: COMPLETED Source: [facility] [id number] Khadar Dawn 1 04/18/1939 Provider Department [place] 05/21/2024 [id number] DIXON [facility] Family History Problem Relation Age of Onset Other Father Coronary artery disease Brother Other Brother Family Status - Relation Status Age at Father Brother CNPN Observed: 05/21/2024 12:00 AM Status: COMPLETED Source: [facility] Telephone (BlykA) KHADAR DAWN ([id number]) 1940 M Date Time Provider Department 05/21/24 Yanelis BRADSHAW During your visit today, we recorded the following information about you: Rojelio Guajardo RN 05/21/2024 3:58 PM Signed FYI--Dr. Ponce's office called to notify Dr. Bradshaw that Khadar did not show for his consult today. Patient was referred to Dr. Ponce per patient request to establish care with a local transformation lead. Khadar does not have any appointments scheduled [...] Observed: 05/14/2024 5:29 PM Status: F Source: [facility] 20,000 colonies/ml mixed bacterial skin contaminants 2 Days PERFORMED BY: [place] [address] PATHOLOGIST INDEPENDENT FILM MAKER CARA GARCIA M.D. Performed By: #### CUU #### [address] CNPN Observed: 05/08/2024 12:00 AM Status: COMPLETED Source: [facility] Telephone (BlykA) KHADAR DAWN ([id number]) 1940 M Date Time Provider Department 05/08/24 Yanelis BRADSHAW During your visit today, we recorded the following information about you: Edyta Gilliland, RN 05/08/2024 1:15 PM Signed Message Received: Today Yanelis Bradshaw MD P [facility] Nurse Una Can we verify pt seeing medonc? Previous [...] MRI brain he is having done at [facility]. Edyta Gilliland RN Allergies As of Date: 05/08/2024 (No Known Allergies) Date Reviewed: 04/16/2024 Reviewed by: Edyta Gilliland, AGGIE - Fully Assessed Reason for Visit: Database Report Writer - Other [3602] Future Appointment [256] Prescriptions [...] Observed: 05/05/2024 1:40 PM Status: COMPLETED Source: [facility] Cardiology - [facility] Subjective Khadar Dawn is a 84 [...] with me in 2 months Chris Dixon MD,[facility] OFFICE VISIT Observed: 05/05/2024 1:40 PM Status: COMPLETED Source: [facility] [id number] HirofionaKhadar Smart 1 04/18/1939 M Date Provider Department Center 05/05/2024 [id number] DIXON [facility] [place] [facility] Family History Problem Relation Age of Onset Other Father Coronary artery disease Brother Other Brother Family Status - Relation Status Age at Father Brother Level of Service:55675 IN OFFICE/OUTPATIENT ESTABLISHED MOD MDM 30 MIN Reason for Visit and Comments: Atrial Fibrillation [80] - Denies bleeding on Xarelto. He is now on Toprol XL 50mg instead of Lopresser 75mg bid. Congestive Heart Failure [127] - He was admitted to [facility] last month for CHF. NM PET/CT SKULL-THIGH SUBQ Observed: 9:22 AM Status: F Source: [facility] * * *Final Report* * * DATE [...] * Uptake Time: 53 minutes * Radiopharmaceutical: G42-Pygcyoowfrqtgtliga (FDG) COMPARISON: No previous FDG PET/CT available [...] any questions regarding this interpretation, please call [phone]. If you are unable to reach us at the number above, please feel free to contact [facility] eRadiology at [phone]. [id number] PROGRESS Observed: 04/30/2024 8:00 AM Status: COMPLETED Source: [facility] HNO ID: [id number] Author: CHERELLE CORDERO RN Service: ? Author [...] Observed: 04/30/2024 8:00 AM Status: COMPLETED Source: [facility] ID: [id number] Author: DG JEROME RT(Dharmesh) Service: ? Author [...] 0756 PATIENT DISCHARGED TO: Ambulatory patient, left MD department area. Is this a therapy: No A Diagnostic radioactive procedure has taken place, with no further precautions necessary other than routine body substance precautions. More information regarding radiation safety can be found using this link: [email or web address]%20Medicine%[email or web address] SIGNATURE: RT Adenike(R) PATIENT NAME: Khadar Dawn DATE: April 30, 2024 TIME: 8:24 AM PAGER/CONTACT #: LIZ Observed: 04/25/2024 12:00 AM Status: COMPLETED Source: [facility] Telephone (RADTSA) KHADAR DAWN ([id number]) 1940 M Date Time Provider Department 04/25/24 [...] patient on Sunday when he is in [place]. Shazia Rooney 04/25/2024 9:44 AM Signed First [...] minutes ago (3:59 PM) Send report to [facility]. I think he will be [...] lung (HCC) [C34.90] Order(s):NM PET/CT SKULL-THIGH SUBSEQUENT [[id number]] Order #: [id number] FUTURE Prescriptions as of 05/05/2024 - amLODIPine [...] Observed: 04/23/2024 9:36 AM Status: COMPLETED Source: [facility] HNO ID: [id number] Author: Yanelis BRADSHAW MD Service: ? Author Type: Physician Type: Progress Notes Filed: 04/23/2024 09:36 Note Text: se BATES Observed: 04/23/2024 8:30 AM Status: COMPLETED Source: [facility] Office Visit (LEVYTSA) KHADAR DAWN ([id number]) 1940 M Date Time Provider Department 04/23/24 8:30 AM Yanelis BRADSHAW During your visit today, we recorded the following information about you: Yanelis Bradshaw MD 04/23/2024 9:36 AM Signed [facility] Referring Provider: Yanelis BRADSHAW [[id number]] Allergies As of Date: 04/23/2024 (No Known [...] Observed: 04/23/2024 8:00 AM Status: COMPLETED Source: [facility] Office Visit (RADTSA) KHADAR DAWN ([id number]) 1940 M Date Time Provider Department 04/23/24 8:00 AM Yanelis BRADSHAW During your visit today, we recorded the following information about you: Referring Provider: Yanelis BRADSHAW [[id number]] Allergies As of Date: 04/23/2024 (No Known Allergies) Date Reviewed: 04/16/2024 Reviewed by: Edyta Gilliland RN - Fully Assessed Reason for Visit: Simulation Request Form [4065] Primary Visit Diagnosis:Malignant neoplasm of lung, unspecified laterality, unspecified part of lung (HCC) [C34.90] Order(s):RADIATION TREATMENT PER RADIATION ONCOLOGIST PLAN [[id number]] Order #: [id number]: 1 PT ED CANCER [[id number]] Order #: [id number]: 1 CT SIM PLANNING RADIATION ONCOLOGY [[id number]] Order #: [id number] Prescriptions as of 04/23/2024 - amLODIPine (NORVASC) [...] Observed: 04/23/2024 12:00 AM Status: COMPLETED Source: [facility] Telephone (HotelogixTSA) KHADAR DAWN ([id number]) 1940 M Date Time Provider Department 04/23/24 Yanelis BRADSHAW [employer]LESAA During your visit today, we recorded the [...] RN - Fully Assessed Reason for Visit: Database Report Writer - Other [3602] Prescriptions as of 04/23/2024 [...] Observed: 04/23/2024 12:00 AM Status: COMPLETED Source: [facility] Telephone (BlykA) KHADAR DAWN ([id number]) 1940 M Date Time Provider Department 04/23/24 Yanelis BRADSHAW During your visit today, we recorded the following information about you: Edyta Gilliland RN 04/23/2024 10:22 AM Signed Call placed to [facility] [place] ([phone]). Spoke to Kristi to arrange weekly pacemaker checks. Kristi called rep from [employer] and stated he has a single chamber [...] Assessed Reason for Visit: Future Appointment [256] Database Report Writer - Other [5042] Cmt: Pacemaker Checks During XRT Prescriptions as [...] Observed: 04/23/2024 12:00 AM Status: COMPLETED Source: [facility] HNO ID: [id number] Author: Yaneils BRADSHAW MD Service: ? Author Type: Physician Type: Progress Notes Filed: 04/24/2024 14:31 Note Text: KHADAR DAWN [id number] 04/23/2024 [facility] Radiation Oncology Department SIMULATION NOTE DATE OF SIMULATION: 04/23/2024 THERAPIST: Paulette Weinberg John MACHINE: [employer] DIAGNOSIS: Malignant neoplasm of upper lobe, left [...] Observed: 04/05 2:56 PM Status: COMPLETED Source: [facility] [place] [address] Ultrasound Report Signed Patient: Khadar Dawn MR#: [id number] : 1940 Acct:[id number] Age/Sex: 84 / M ADM Date: 04/22/24 Loc: Room: Type: [facility] Attending Dr: Comfort Bradshaw MD Ordering Provider: Yanelis Bradshaw MD Date of Service: 04/22/24 US/US guide or thoracentesis: THORShanda Copies to: Yanelis Bradshaw MD ULTRASOUND-GUIDED THORACENTESIS INDICATION: REPORTED EFFUSION COMPARISON: NONE US/US guide or thoracentesis FINDINGS/IMPRESSION: ULTRASOUND LEFT CHEST WALL DEMONSTRATE NO FLUID COLLECTION. PROCEDURE NOT PERFORMED. Impression dictated by: Hal Mojica M.D.04/22/2024 2:57 PM Dictation Location: [place] [address] Tech: Javier Vidal Transcribed By: QING 04/22/241456 Dictated By: Hal Mojica MD 04/22/241455 Signed By: <Electronically signed by Hal Mojica MD in OV> 04/22/241456 CNPN Observed: 04/22/2024 12:00 AM Status: COMPLETED Source: [facility] Telephone (HEMASA) HIROKHADAR LEON ([id number]) 1940 M Date Time Provider Department 04/22/24 Yanelis BRADSHAW During your visit today, we recorded the following information about you: Krystle Faye 04/22/2024 8:58 AM Signed Received call from Hui at [facility] radiology asking for images from last Chest XR be pushed over. Patient is there for thoracentesis and the radiologist is not seeing any fluid. I let her know his last XR chest was done at [facility], and the one before that was at [place]. She will call there for images. She [...] Observed: 04/21/2024 12:00 AM Status: COMPLETED Source: [facility] KHADAR DAWN ([id number]) 1940 M Date Time Provider Department 04/21/24 Yanelis BRADSHAW During your visit today, we recorded the following information about you: Romi Faust 04/21/2024 8:35 AM Signed Erich from Dr. Rodriguez's office called asking for past progress notes for the patient. He stated that the patient was referred and they have not received any information. Please fax records to [phone]. Madai Krystle Goodrich 04/21/2024 3:36 PM Signed [...] Observed: 04/16/2024 3:22 PM Status: COMPLETED Source: [facility] HNO ID: [id number] Author: ROJELIO GUAJARDO RN Service: ? 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 Was PED reviewed? No Patient has an Onbody or Implanted device: Yes, person notified was: Dr. Bradshaw Signed by: Rojelio Guajardo RN PROGRESS Observed: 04/16/2024 1:01 PM Status: COMPLETED Source: [facility] HNO ID: [id number] Author: Yanelis BRADSHAW MD Service: ? Author [...] uptake to an AP window lymph node. [facility] with EBUS negative level 7 lymph [...] cc: Josy Hernandez Luis Alberto [address] [place] [address] Meeta Manuelwla [address] [facility] [address] CNOV Observed: 04/16/2024 1:00 PM Status: COMPLETED Source: [facility] Office Visit (RADTSA) LÓPEZKHADAR Berry ([id number]) 1940 M Date Time Provider Department 04/16/24 [...] uptake to an AP window lymph node. [facility] with EBUS negative level 7 lymph [...] Bradshaw MD cc: Josy Kenney [address] [place] [address] Meeta Rodriguez [address] [facility] [address] Referring Provider: MEETA RODRIGUEZ [[id number]] Allergies As of Date: 04/16/2024 (No Known Allergies) Date Reviewed: 04/16/2024 Reviewed by: Edyta Gilliland RN - Fully Assessed Reason for Visit: Lung Cancer [562] Primary Visit Diagnosis:Atrial fibrillation, unspecified type (HCC) [I48.91] Other Visit Diagnosis:Malignant neoplasm of lung, unspecified laterality, unspecified part of lung (HCC) [C34.90] Order(s):ANALYZE CARDIO/DEFIBRILLATOR [[id number]] Order #: [id number]: 1 IMAGING GUIDED THORACENTESIS [[id number]] Order #: [id number] CONSULT TO PULMONARY MEDICINE [[id number]] Order #: [id number]: 1 Prescriptions as of 04/21/2024 - amLODIPine [...] cancer [Z85.46] 06/09/2015 Level of Service: OFFICE/OUTPATIENT [facility] 45 MINUTES [28035] Additional E/M codes: VISIT CPLX INHERENT EANDM ASSOC WITH MED * Follow-up and Disposition History for Encounter Date Provider Department Center 04/16/2024 [id number] BRADSHAW [place] Encounter Status:Closed by Yanelis BRADSHAW on 04/21/24 PROGRESS Observed: 04/16/2024 12:57 PM Status: COMPLETED Source: [facility] HNO ID: [id number] Author: EDYTA GILLILAND RN Service: ? Author Type: Registered Nurse Type: Progress Notes Filed: 04/21/2024 15:24 Note Text: Pacemaker/Defibrillator? Yes 03/03 placed Previous Cancer(s)? Yes Prostate Previous Radiation? Yes- Here Lupus/Scleroderma?No On body monitoring device? No Edyta Gilliland RN CNCNPATED Observed: 04/16/2024 12:00 AM Status: COMPLETED Source: [facility] Education (KATHLEEN) KHADAR DAWN ([id number]) 1940 M Date Time Provider Department 04/16/24 [...] Observed: 04/16/2024 12:00 AM Status: COMPLETED Source: [facility] Telephone (BlykA) KHADAR DAWN ([id number]) 1940 M Date Time Provider Department 04/16/24 Yanelis BRADSHAW During your visit today, we recorded the following information about you: Rojelio Guajardo RN 04/16/2024 2:37 PM Signed PSS/RT: Please schedule [facility] IR for thoracentis return for sim after treating lung no contrast 15 treatments, no concurrent chemo Need presim consent Nurse ed today Consult with Dr. Ponce to establish care with local transformation lead. pt does not want to travel to current transformation lead in [place]. Thanks AGGIE Jimenez Jodi 04/17/2024 9:08 AM Signed Waiting on orders to be signed to fax to IR [facility] Rojelio Guajardo RN 04/18/2024 9:54 AM Signed Order is signed. Please arrange thoracentesis appt lizette. Thanks AGGIE Jimenez Trisha 04/18/2024 11:26 AM Signed Everything is faxed to [facility] for Shazia Perez and I will check with [facility] daily to see when scheduled [...] an appointment. All info was faxed to [phone] Will follow up to see when appt is scheduled Shazia Britton 04/18/2024 3:08 PM Signed Patient scheduled at [facility] on 04[place]22 at 9am. Arrive at 8am [...] and records to DR. Ponce office at [phone]. He is having a thoracentesis on 04/22. She would like records faxed and images pushed of those as well. Thanks so much Shazia Rooney 04/21/2024 2:25 PM Signed Referral was sent to [place] and [place] offices. Confirmed patient to be scheduled in [place] with Dr. Ponce on 04/23 at 3pm. I called [facility] office and explained sent by mistake to please disregard. Krystle Faye 04/21/2024 2:28 PM Signed Records faxed to Dr. Ponce's [place] office. Allergies As of Date: 04/16/2024 (No Known Allergies) Date Reviewed: 04/16/2024 Reviewed by: Edyta Gilliland, AGGIE - Fully Assessed Reason for Visit: Appointment [186] Orders [681] Primary Visit Diagnosis:Malignant neoplasm of lung, unspecified laterality, unspecified part of lung (HCC) [C34.90] Order(s):BODY FLUID CELL COUNT [SQCCBF] Order #: [id number] FUTURE GLUCOSE, BODY FLUID [SQBFGLUC] Order #: [id number] FUTURE LACTATE DEHYDROGENASE, BODY FLUID [SQBFLDH] Order #: [id number] FUTURE PH BODY FLUID [SQFLPH] Order #: [id number] FUTURE AFB CULTURE AND STAIN [SQAFC] Order #: [id number] FUTURE BACTERIAL CULTURE AND GRAM STAIN, STERILE BODY FLUID [SQBFCUL] Order #: [id number] FUTURE CYTOLOGY NON-ELECTRON GUN INSPECTOR [DJA2711] Order #: [id number] FUTURE Prescriptions as of 04/28/2024 - amLODIPine [...] Observed: 04/15/2024 12:00 AM Status: COMPLETED Source: [facility] Telephone (NCCAP) KHADAR DAWN ([id number]) 1940 M Date Time Provider Department 04/15/24 Yanelis BRADSHAW NCCAP During your visit today, we recorded the following information about you: Romi Faust 04/15/2024 8:[address] Lane's office called requesting progress notes from the past 12 months. Please fax to [phone]. They are requesting this today as he [...] Observed: 04/09/2024 1:40 PM Status: COMPLETED Source: [facility] Patient: Khadar Dawn Procedure Summary Date: 04/09/24 Room / Location: [facility] Main Operating Room Anesthesia Start: 1110 [...] Observed: 04/09/2024 12:22 PM Status: COMPLETED Source: [facility] Report to Emi MARCIAL HISTOLOGY - TISSUE EXAM Collected: 07/2024 11:50 AM Status: UNK Source: [facility] TYPE CODE TESTS RESULT OUT OF RANGE REFERENCE UNITS PATHOLOGY 1499 LAB AP CASE REPORT Result Comment: Surgical Pat hology Case: [id number] Authorizing Provider: Cara Perez MD Collected: 04/09/2024 1150 Ordering Location: [facility] Main Operating Room Received: 04/09/2024 1256 Pathologist: Brit Grimes MD Specimen: Lung, Left Upper Lobe, OUMAR MASS BX PATHOLOGY 34 LAB AP REPORT FINAL DIAGNOSIS NARRATIVE Result Comment: A. Lung, lef t upper lobe, biopsy: - Sclerotic lung and blood clot with rare strips of malignant glandular cells. - See concurrent cytology report, [id number]. OLOGY 29 LAB AP CLINICAL INFORMATION Order Diagnoses Result Comment: R91.8 - Lung mass [ICD-10-CM] J43.2 - Centrilobular emphysema (CMS/HCC) [ICD-10-CM] J96.11 - Chronic hypoxic respiratory failure (CMS/HCC) [ICD-10-CM] PATHOLOGY 35 LAB AP DIAGNOSIS COMMENT Result Comment: There is sca nt tumor in the tissue block, insufficient for further testing. PATHOLOGY [id number] LAB AP GROSS DESCRIPTION Result Comment: A. Lung, Lef t Upper Lobe. Part A is received in formalin labeled Khadar Vollmar and OUMAR mass biopsy . It consists of multiple platt-red, irregular pieces of soft tissue measuring 1.0 x 0.5 x 0.2 cm in aggregate. The specimen is submitted in toto in 1 cassette. Lilliam Hitchcock, Pathologists' Dressmaking Teacher student Herb Reynoso, Pathologists' Dressmaking Teacher PATHOLOGY 32 LAB AP MICROSCOPIC DESCRIPTION Microscopic examination performed. Performed By: #### [id number] # ### [facility] LAB (BEAKER) [address] [place] [address] NON-ELECTRON GUN INSPECTOR CYTOLOGY - CELLULAR EXAM Collected: 04/09/2024 11:39 AM Status: UNK Source: [facility] TYPE CODE TESTS RESULT OUT OF RANGE REFERENCE UNITS PATHOLOGY 1499 LAB AP CASE REPORT Result Comment: Non-gynecolo gic Cytology Case: [id number] Authorizing Provider: Cara Perez MD Collected: 04/09/2024 1139 Ordering Location: [facility] Main Operating Room Received: 04/09/2024 1215 [...] Comment: See also con current surgical case, [id number]. There is scant tumor present in the [...] lung nodules, mediastinal adenopathy, former smoker PATHOLOGY [id number] LAB AP INTRAOPERATIVE CONSULTATION Result Comment: A. [...] flecks Performed By: #### [id number] ### # [facility] LAB (BEAKER) [address] [place] [address] PROCEDURE Observed: 04/09/2024 11:28 AM Status: COMPLETED Source: [facility] Airway Date/Time: 04/09/2024 11:21 AM Urgency: elective Airway not difficult General Information and Staff Patient location during procedure: OR Anesthesiologist: Ra Rizo MD Resident/WATCHMAKING TEACHER/CAA: Anmol Mccray MD Performed: resident/WATCHMAKING TEACHER/CAA Learner assisted: MS Indications and Patient Condition [...] Observed: 04/09/2024 11:04 AM Status: COMPLETED Source: [facility] Dr Rizo at pt bedside to a ssess before heading to procedure room. HP Observed: 04/09/2024 10:30 AM Status: COMPLETED Source: [facility] H&P reviewed. The patient wa s examined and there are no changes to the H&P. Re-explained the procedure to the patient along with the associated risk of pneumothorax, bleeding, hypoxia, and respiratory failure. Patient is agreeable and will proceed with the scheduled Robotic bronchoscopy and TBBx, FNA, EBUS Cara Perez MD Interventional Pulmonary Medicine Pulmonary and Critical Care Medicine [facility] POCT GLUCOSE METER UNSOLICIT ED RESULTS Collected: 04/09/2024 9:20 AM Status: UNK Source: [facility] Order Comment: Waived Testin g in the ED is performed under the ED CLIA certificate #[id number]. TYPE CODE TESTS RESULT OUT OF RANGE REFERENCE UNITS LAB 885 POCT GLUCOSE 88 70-105 mg/dL Result Comment: ltolles Performed By: #### [id number] #### [facility] (BEAKER) [address] [place] [address] CT CHEST WO IV CONTRAST Observed: 2024 8:13 AM Status: UNK Source: [facility] PROCEDURE: CT CHEST WITHOUT CONTRAST CLINICAL INDICATION: [...] Observed: 04/09/2024 12:00 AM Status: COMPLETED Source: [facility] [id number] Khadar Dawn 1940 M Date Provider Department Center 04/09/2024 383-CARA PEREZ [facility] A[facility] Family History Problem Relation Age of Onset Other Father Coronary artery disease Brother Other Brother Family Status - Relation Status Age at Father Brother PHYLLIS Observed: 04/08/2024 10:54 PM Status: COMPLETED Source: [facility] Patient: Khadar Dawn Procedure Information Date/Time: 04/09/24 1030 Scheduled providers: Cara Perez MD; Ra Rizo MD Procedure: BRONCHOSCOPY Location: [facility] Main Operating Room Relevant Problems Cardio [...] Observed: 03/31/2024 12:00 AM Status: COMPLETED Source: [facility] [id number] Khadar Dawn Berry 1 04/18/1939 M Date Provider Department Center 03/31/2024 383-CARA PEREZ [facility] ONC DCC Family History Problem Relation Age of Onset Other Father Coronary artery disease Brother Other Brother Family Status - Relation Status Age at Father Brother 36 Observed: 03/25/2024 3:50 PM Status: COMPLETED Source: [facility] Per patient's , Dr. Titus toure's office is requesting cardiac clearance prior to lung biopsy. I'm assuming they'd like him to hold Xarelto but it doesn't say in Dr. Perez's office note. You saw him in clinic 2 weeks ago. Please advise. Thanks. Observed: 03/20/2024 12:30 PM Status: COMPLETED Source: [facility] Attestation signed by Cara Perez MD at 03/21/2024 11:55 AM I have seen and examined the patient. I reviewed the resident/fellow note and I agree with the findings and plan. Cara Perez MD Interventional Pulmonary Medicine Pulmonary and Critical Care Medicine [facility] Pulmonary Clinic Visit Note Patient: Khadar Dawn Age: 84 y.o. : 1940 Account No.: [id number] Referring physician: Dr. Kenney Chief complaint: Lung [...] On goal-directed medical therapy. Tamika White MD [facility] Pulmonary/Critical Care Fellow OFFICE VISIT Observed: 03/20/2024 12:30 PM Status: COMPLETED Source: [facility] [id number] Khadar Dawn 1 04/18/1939 M Date Provider Department Center 03/20/2024 383-CARA PEREZ [facility] ONC DCC Family History Problem Relation Age of Onset Other Father Coronary artery disease Brother Other Brother Family Status - Relation Status Age at Father Brother Level of Service:92938 IN OFFICE/OUTPATIENT NEW MODERATE MDM 45 MINUTES (GC) Reason for Visit and Comments: New Patient [632] - Lung mass; abnormal PET SCAN, needs biopsy 29 Observed: 03/20/2024 12:30 PM Status: COMPLETED Source: [facility] Addended by: HARRISON PEREZ on: 03/27/2024 01:27 PM Modules accepted: Orders PROGRESS Observed: 03/20/2024 12:30 PM Status: COMPLETED Source: [facility] Attestation signed by Cara Perez MD at 03/21/2024 11:55 AM I have seen and examined the patient. I reviewed the resident/fellow note and I agree with the findings and plan. Cara Perez MD Interventional Pulmonary Medicine Pulmonary and Critical Care Medicine [facility] Pulmonary Clinic Visit Note Patient: Khadar Hoffaifiona Age: 84 y.o. : 1940 Account No.: [id number] Referring physician: Dr. Kenney Chief complaint: Lung [...] On goal-directed medical therapy. Tamika White MD [facility] Pulmonary/Critical Care Fellow OFFICE VISIT Observed: 03/10/2024 3:00 PM Status: COMPLETED Source: [facility] [id number] Khadar Dawn 04/18/1939 M Date Provider Department Center 03/10/2024 [id number] DIXON [facility] Family History Problem Relation Age of Onset Other Father Coronary artery disease Brother Other Brother Family Status - Relation Status Age at Father Brother Level of Service:18157 IN OFFICE/OUTPATIENT NEW MODERATE MDM 45 MINUTES Reason for Visit and Comments: Wound Check [776225] - S/p PPM implant on 03/03/[address] Rivas. Says he was not given RX for antibiotic. PROGRESS Observed: 03/10/2024 3:00 PM Status: COMPLETED Source: [facility] Cardiology - [facility] Subjective Khadar Dawn is a [...] Follow-up as scheduled previously 04/29/2024 Chris Dixon MD,[facility] 36 Observed: 03/10/2024 11:13 AM Status: COMPLETED Source: [facility] Regarding lab results from 1 04/27/2023: MD Kristi Horvath MA Good lipids and BMP. Continue current medications. Recheck lipids and AST ALT in 6 months Patient has follow up today with Dr. Dixon. PROCEDURE Observed: 03/03/2024 2:34 PM Status: COMPLETED Source: [facility] SINGLE CHAMBER PACEMAKER IMP LANT PROCEDURE NOTE DATE OF PROCEDURE: 03/03/2024 PERFORMING PHYSICIAN: Dr. Aaron Rivas CONSENT: Patient LOCATION: EP Lab PROCEDURE PERFORMED: 1. Implantation of pacemaker ([employer]) 2. Ultrasound guided venous access INDICATIONS: [...] using modified seldinger technique using a 5 Lao micro-puncture needle on one occasion and 0.35 [...] for the device above the muscle. 6 Lao Safesheaths were placed over the wire. An active fixation [employer] pacing lead was then delivered through [...] Observed: 03/03/2024 2:22 PM Status: COMPLETED Source: [facility] RN educated pt on d/c instru ctions. [...] off of unit with all of belongings. ANES Observed: 03/03/2024 11:57 AM Status: COMPLETED Source: [facility] Patient: Khadar Dawn Procedure Information Date/Time: 03/03/24 1130 Procedure: Implant PPM - [employer] Location: [facility] MANAGER VALUATION 1 EP / [facility]ULAR [facility] (Cath) Providers: Aaron Rivas MD Clinical information reviewed: Allergies Meds Physical Exam Airway Mallampati: II TM distance: >3 FB Neck ROM: full Cardiovascular Dental Pulmonary Abdominal Anesthesia Plan ASA 3 CSE Anesthetic plan and risks discussed with patient. Use of blood products discussed with patient who. Additional Equipment Requests HP Observed: 03/03/2024 11:56 AM Status: COMPLETED Source: [facility] Cardiology - [facility] HPI Khadar Dawn is a 84 y.o. year old male patient being seen for Hospital Follow-up (He was admitted to [facility] last month for CHF. Say he's [...] 03/03/2024 10:45 AM Status: U NK Source: [facility] TYPE CODE TESTS RESULT OUT OF RANGE REFERENCE UNITS LAB [id number] LEUKOCYTES(10*3/ U L) IN BLOOD BY AUTOMATED COUNT 13.41 High 4.00-10.60 10*3/uL LAB 8245384 ERYTHROCYTES (10*6/UL) IN BLOOD BY AUTOMATED COUNT 5.16 4.20-5.70 10*6/uL LAB 9582109 HEMOGLOBIN (G/DL ) IN BLOOD 15.2 13.0-17.0 g/dL LAB 7401924 HEMATOCRIT (%) I N BLOOD BY AUTOMATED COUNT 47.8 39.0-55.0 % LAB [id number] ERYTHROCYTE MEAN CORPUSCULAR VOLUME (FL) BY AUTOMATED COUNT 92.6 82.0-98.0 fL LAB 4840846 ERYTHROCYTE MEAN CORPUSCULAR HEMOGLOBIN (PG) BY AUTOMATED COUNT 29.5 27.0-33.0 pg LAB 0897315 ERYTHROCYTE MEAN CORPUSCULAR HEMOGLOBIN CONCENTRATION (G/DL) BY AUTOMATED 31.8 Low 32.0-35.0 g/dL LAB 8523011 ERYTHROCYTE DISTRIBUTION WIDTH (RATIO) BY AUTOMATED COUNT 17.1 High 11.5-15.0 % LAB 2312148 PLATELETS (10*3/UL) IN BLOOD AUTOMATED COUNT 257 150-400 10*3/uL Performed By: #### [id number] ## ## [facility] LAB (BEAKER) [address] [place] [address] NURSNOTE Observed: 03/03/2024 10:17 AM Status: COMPLETED Source: [facility] CHG wipes and betadine nasal swabs completed. 36 Observed: 02/25/2024 10:41 AM Status: COMPLETED Source: [facility] Patient was informed of mess age from Dr Rivas. Patient was not pleased with having a PPM put in and will need to think about that. Catherine BRADLEY 36 Observed: 02/25/2024 9:47 AM Status: COMPLETED Source: [facility] Per Dr. Rivas, patient need s PPM due to sinus pauses on Holter monitor. Order placed. Waiting for patient to call me back so I can inform him. He had lipids drawn this morning, and I was able to add on BMP. ORDERS ONLY Observed: 02/25/2024 12:00 AM Status: COMPLETED Source: [facility] [id number] Khadar Dawn 1 04/18/1939 [facility] Provider Department Center 02/25/2024 KRISTI CORNELL RAE [facility] Family History Problem Relation Age of Onset Other Father Coronary artery disease Brother Other Brother Family Status - Relation Status Age at Father Brother PROGRESS Observed: 02/22/2024 5:44 PM Status: COMPLETED Source: [facility] Today I reviewed patient 3-d ay event [...] him on the schedule to see Dr. Rivsa next time he is in [place] office 03/18/2024. The patient was advised to come to the emergency room immediately if he has any dizziness. DOCUMENTATION Observed: 02/22/2024 12:00 AM Status: COMPLETED Source: [facility] [id number] Khadar Dawn 1 04/18/1939 [facility] Provider Department Center 02/22/2024 CHRIS ARTHUR RAE [facility] Family History Problem Relation Age of Onset Other Father Coronary artery disease Brother Other Brother Family Status - Relation Status Age at Father Brother OFFICE VISIT Observed: 02/08/2024 11:20 AM Status: COMPLETED Source: [facility] [id number] Khadar Dawn 1 04/18/1939 [facility] Provider Department Center 02/08/2024 CHRIS ARTHUR Family History Problem Relation Age of Onset Other Father Coronary artery disease Brother Other Brother Family Status - Relation Status Age at Father Brother Level of Service:59342 IN OFFICE/OUTPATIENT ESTABLISHED MOD [facility] 30 MIN Reason for Visit and Comments: Hospital Follow-up [832] - He was admitted to [facility] last month for CHF. Say he's feeling much better s/p discharge. Coronary Artery Disease [187] - Denies chest pain. Congestive Heart Failure [127] - Denies SOB, and LE edema resolves by morning. Using O2 at nighttime. Atrial Fibrillation [80] - Denies palpitations, lightheadedness/syncope, and bleeding on Xarelto. Hypertension [659921] Hyperlipidemia [182] PROGRESS Observed: 02/08/2024 11:20 AM Status: COMPLETED Source: [facility] Cardiology - [facility] Subjective Khadar Dawn is a 83 y.o. year old male patient being seen for Hospital Follow-up (He was admitted to [facility] last month for CHF. Say he's [...] with me in 3 months Chris Dixon MD,[facility] UROLOGY OFFICE/CLINIC NOTE Observed: 11:18 AM Status: F Source: [facility] Urology Office/Clinic Note Chief Complaint 1 year follow up HPI Staff 1 yr w/ PSA. Dx: BPH with obstruction, hx of prostate cancer *Brachytherapy 2014*, nocturia, renal cyst, gross hematuria. *No urological meds NEG FISH/cytol 10/13/22. S/p Cysto 10/17/22. TAYLA done 10/19/22 at [facility] - results given over the phone. [...] hematuria (R31.0: Gross hematuria) Pt presented to [facility] ER 09/23/22 with gross hematuria. Only for one day. Neg urine culture. S/p cysto 10/17/22 ~neg for b.t. or lesions. Typical telangiectatic radiation changes. FISH/cytol neg. Renal US 10/19/22 [facility] - Small bladder diverticulum. UA today shows trace-intact blood. Denies recurrence of gross hematuria. -Call if gross blood recurs 4. Renal cyst (N28.1: Cyst of kidney, acquired) CT AP w/o con 09/23/22 - several adjacent cysts inferior of the Rt kidney measuring up to 8.5 cm. Renal US 10/19/22 [facility] - bilateral renal cysts favoring benign etiology, also seen on prior MRI and CT studies. -No follow up required Follow-up With When Contact Information ALFIE WISE, Yousuf Barroso, URL [address] [place] [address]- Additional Instructions: 1 year w/ PSA Patient [...] Immunizations Vaccine Date Status Comments SARS-CoV-2 (COVID-19) mRNAMUL.ORD![id number] 11/23/2021 Recorded SARS-CoV-2 (COVID-19) mRNA BNT-162b2 vax [...] Protein Urine Dipstick: Negative (10/19/23 10:55:00) Specific Bradley Urine Dipstick: 1.010 (10/19/23 10:55:00) Urine Appearance [...] Observed: 10/19/2023 11:17 AM Status: F Source: [facility] Patient Education Urology Benign Prostatic Hyperplasia Benign [...] Follow these instructions at home: ? Take bwsm-uri-bbfryxf and prescription medicines only as told by [...] provider. Document Revised: 09/07/2021 Document Reviewed: 09/07/2021 [employer] Patient Education ? 2022 ipsy. PROGRESS Observed: 09/25/2023 10:00 AM Status: COMPLETED Source: [facility] Patient here for 6 mo follow up [...] Observed: 09/25/2023 10:00 AM Status: COMPLETED Source: [facility] Cardiovascular Medicine [place] [facility] SUBJECTIVE Chief Complaint Patient presents [...] Final QTC CALCULATION(BAZETT) 08/03/2020 428 ms Final R-Vincent 08/03/2020 -82 degrees Final T Wave Vincent 08/03/2020 51 degrees Final Diagnosis 08/03/2020 Final [...] type, unspecified whether angina present, unspecified whether [place] or transplanted heart Right ventricular dilation Pulmonary emphysema, unspecified emphysema type (CMS/HCC) Persistent atrial fibrillation (CMS/HCC) Benign hypertensive heart disease with heart failure (CMS/HCC) Mixed hyperlipidemia Systolic heart failure (CMS/HCC), chronic -[facility] II -Recent ECHO 03/19/2023 showed preserved LVEF [...] -Controlled -Continue coreg, amlodipine-benazepril Atrial fibrillation (CMS/HCC) -GQT3AC7-YFVp= 5 (age+2, HF, CAD, HTN) -He denies [...] 6 months (around 03/27/2024). Jacky Briggs NP [facility] Cardiovascular Medicine OFFICE VISIT Observed: 09/25/2023 10:00 AM Status: COMPLETED Source: [facility] [id number] Khadar Dawn 1 04/18/1939 M Date Provider Department Center 09/25/2023 Landy-JACKY BRIGGS CARD [place] [facility] Family History Problem Relation Age of Onset Other Father Coronary artery disease Brother Other Brother Family Status - Relation Status Age at Father Brother Level of Service:12882 IN OFFICE/OUTPATIENT ESTABLISHED LOW MDM 20 MIN Reason for Visit and Comments: Coronary Artery Disease [187] Atrial Fibrillation [80] ALLERGIES DATE TYPE / CODE NAME / CODE REACTION SEVERITY SOURCE 08/12/2018 Drug Allergy/6262275 02(SNOMED CT) No Known Allergies/[id number] (RXNORM) Unknown [facility] Drug Class/334424945 (SNOMED CT) NO KNOWN ALLERGIES [facility] SYSTEMIC/153545 006(SNOMED CT) NO KNOWN ALLERGIES [facility] /651913355(SN OMED CT) No Known Allergies [facility] ENCOUNTERS ADMIT/DISCHARGE ACCOUNT NUMBER ADMITTING ENCOUNTER CLASS LOCATION SOURCE 07/18/2024 [id number] Ambulatory Building:[facility] 07/04/2024/07/05/19 [id number] Ambulatory Building:[facility] 07/02/2024 [id number] Ambulatory Building:[facility] 06/17/2024/06/18/19 [id number] Ambulatory Building:[facility] SEEMA OPHT [facility] 06/13/2024/06/14/19 25 [id number] Ambulatory Building:[facility] 06/10/2024/06/11/19 25 [id number] Ambulatory Building:[facility] 06/06/2024/06/07/19 [id number] Ambulatory Building:[facility] 05/14/2024/05/15/19 25 [id number] Josy Kenney [facility]/05/2024/05/06/19 25 [id number] [facility]/30[facility]04/30/19 25 [id number] Ambulatory [facility] 04/23/2024/04/23/19 25 [id number] Ambulatory [facility] 04/23/2024/04/23/19 25 [id number] Ambulatory [facility] 04/22/2024/04/22/19 25 [id number] [facility] 04/17/2024/04/16/19 25 [id number] Ambulatory [facility] 04/16/2024/04/16/19 25 [id number] Ambulatory [facility] 04/09/2024/04/09/19 25 [id number] Ambulatory Building:[facility] C XRAY [facility] 04/09/2024/04/09/19 25 [id number] Ambulatory Building:[facility] 04/09/2024/04/09/19 25 [id number] Ambulatory Buildin [address] [facility] 04/09/2024/04/09/19 25 [id number] Ambulatory Building:[facility] 04/09/2024/04/09/19 25 [id number] Ambulatory Building:[facility] C XRAY [facility] 03/20/2024 [id number] Ambulatory Buildin 0 [facility] 03/10/2024/03/10/19 25 [id number] Ambulatory Building:[facility] 03/07/2024/03/07/19 25 [id number] Ambulatory Buildin [id number] [facility] 03/03/2024 [id number] Ambulatory Building:[facility] 03/03/2024/03/03/20 [id number] AARON RIVAS Ambulatory Buildin 0Room: [facility] VASCULAR POOLBed: 2444 [facility] 02/08/2024/02/08/20 [id number] Ambulatory Building:[facility] 11/27/2023/11/27/19 [id number] Ambulatory Building:NOM S NB OPHT [facility] EPIC 10/19/2023/10/19/19 [id number] Ambulatory EU [place]:EU MichelleueRoom : Exam 1 [facility] 09/25/2023/09/25/19 [id number] Ambulatory Building:[facility] 08/24/2023/08/24/19 [id number] Ambulatory Building:NOM S NB OPHT [facility] EPIC PAYERS ENCOUNTER GUARANTOR PAYER SUBSCRIBER SOURCE 07/18/2024 Primary Insurance:AETNA MEDICARE ADVANTAGEPolicy Number: [id number] Date:2021-03-05 KHADAR TAYLOROB: [id number] [address] 07/04/2024 Primary Insurance:AETNA MEDICARE ADVANTAGEPolicy Number: [id number] Date:2021-03-05 KHADAR TAYLOROB: [id number] [address] 06/17/2024 KHADAR TAYLOROB: [id number] [address] [address]Fud: () Primary Insurance:AETNA MEDICARE ADVANTAGEPolicy Number: [id number] Date:2021-03-05 KHAADR TAYLOROB: [id number] [address] [address] [facility] EPIC 06/13/2024 KHADAR TAYLOROB: [address] [address]Exo: (HP) Primary Insurance:AETNA MEDICAREPolicy Number: [id number] Date:2023-03-05 KHADAR AUSTIN: [id number] [address] [address]Mth: (HP) [facility] 06/10/2024 KHADAR AUSTIN: [id number] [address] [address]Nyw: (HP) Primary Insurance:AETNA MEDICAREPolicy Number: [id number] Date:2023-03-05 KHADAR AUSTIN: [id number] [address] [address]Qfi: (HP) [facility] 06/06/2024 KHADAR AUSTIN: [id number] [address] [address]Tco: (HP) Primary Insurance:AETNA MEDICAREPolicy Number: [id number] Date:2023-03-05 KHADAR AUSTIN: [id number] [address] [address]Jyq: (HP) [facility] 05/14/2024 Khadar Ferraraar[address] [address]Fkq: (HP) Primary Insurance:Self PayPolicy Number: Effective Date:2024-05-14 [facility] Primary Insurance:AETNA MEDICARE ADVANTAGEPolicy Number: [id number] Date:2021-03-05 KHADAR AUSTIN: [id number] [address] [address] [facility] 04/30/2024 Primary Insurance:AETNA MEDICARE PPOPolicy Number: [id number] Date:0691-58-95Iqdd Name:Sheron AUSTIN: [id number] [address] [facility] 04/23/2024 Primary Insurance:AETNA MEDICARE PPOPolicy Number: [id number] Date:6378-94-48Irhe Name:Sheron Smart NORMAN: [id number] [place] [id number] [facility] 04/23/2024 Primary Insurance:AETNA MEDICARE PPOPolicy Number: [id number] Date:1934-82-16Bfkx Name:Sheron Smart NORMAN: [id number] [address] 04/22/2024 Khadar Ferraraar6833 [address]Tel: () Primary Insurance:Aetna MCR PFFSPolicy Number: [id number] Date:4142-40-44ZN [place] [address]UZ: Khadar Austin: [id number] [place] [address]Tel: (HP) [facility] 04/22/2024 Secondary Insurance:Self PayPolicy Number: Effective Date:2024-04-18 [facility]/17/2024 Primary Insurance:AETNA MEDICARE PPOPolicy Number: [id number] Date:6029-04-45Rxxh Name:Sheron Smart NORMAN: [id number] [place] [id number] [facility] 04/16/2024 Primary Insurance:AETNA MEDICARE PPOPolicy Number: [id number] Date:0500-23-45Vfgv Name:Sheron AUSTIN: [id number] [address] 04/09/2024 Primary Insurance:AETNA MEDICARE ADVANTAGEPolicy Number: [id number] Date:2021-03-05 KHADAR TAYLOROB: [id number] [place] [id number] [facility] 04/09/2024 Primary Insurance:AETNA MEDICARE ADVANTAGEPolicy Number: [id number] Date:2021-03-05 KHADAR TAYLOROB: [id number] [address] 04/09/2024 Primary Insurance:AETNA MEDICARE ADVANTAGEPolicy Number: [id number] Date:2021-03-05 KHADAR AUSTIN: [id number] [address] 04/09/2024 Primary Insurance:AETNA MEDICARE ADVANTAGEPolicy Number: [id number] Date:2021-03-05 KHADAR AUSTIN: [id number] [address] 04/09/2024 Primary Insurance:AETNA MEDICARE ADVANTAGEPolicy Number: [id number] Date:2021-03-05 KHADAR AUSTIN: [id number] [address] 03/20/2024 Primary Insurance:AETNA MEDICARE ADVANTAGEPolicy Number: [id number] Date:2021-03-05 KHADAR AUSTIN: [id number] [address] 03/10/2024 Primary Insurance:AETNA MEDICARE ADVANTAGEPolicy Number: [id number] Date:2021-03-05 KHADAR AUSTIN: [id number] [address] 03/07/2024 Primary Insurance:AETNA MEDICARE ADVANTAGEPolicy Number: [id number] Date:2021-03-05 KHADAR TAYLOROB: [id number] [address] [address] [facility] 03/03/2024 Primary Insurance:AETNA MEDICARE ADVANTAGEPolicy Number: [id number] Date:2021-03-05 KHADAR TAYLOROB: [id number] [place] [id number] [facility] 03/03/2024 Primary Insurance:AETNA MEDICARE ADVANTAGEPolicy Number: [id number] Date:2021-03-05 KHADAR TAYLOROB: [id number] [address] 02/08/2024 Primary Insurance:AETNA MEDICARE ADVANTAGEPolicy Number: [id number] Date:2021-03-05 KHADAR AUSTIN: [id number] [place] [address] [facility] 11/27/2023 KHADAR AUSTIN: [id number] [address] [address]Jak: (HP) Primary Insurance:AETNA MEDICARE ADVANTAGEPolicy Number: [id number] Date:2021-03-05 KHADAR AUSTIN: [id number] [id number] [place] [address] Medical [facility]ists [facility] 10/19/2023 KHADAR AUSTIN: [id number] [facility] 29Tel: ~~(5 6 (HP) Primary Insurance:AETNAPolicy Number: [id number] Date:4239-47-23KK KOTA [address]CUCHANDRIKA MAYES [address]JI: KHADAR SOLORIO [facility] 09/25/2023 Primary Insurance:AETNA MEDICARE ADVANTAGEPolicy Number: [id number] Date:2021-03-05 KHADAR AUSTIN: [id number] [address] [facility] 08/24/2023 KHADAR AUSTIN: [id number] [address] [address]Bzb: () Primary Insurance:AETNA MEDICARE ADVANTAGEPolicy Number: [id number] Date:2021-03-05 KHADAR AUSTIN: [id number] [address] [address] [facility] EPIC
--- OUTSIDE RECORDS SUMMARY | 2024-07-22 06:07 | XMS_ITS ---
Author Organization The [facility] in [place] Address [address] [place] [address] Care Team Providers Care Integration Director Name Role Phone Ross Sahu Primary Care Provider REASON FOR VISIT Test strip rx Medications Medication SIG (Take, Route, Fr equency, Duration) Notes Start Date End Date Status OneTouch Ultra - USE DIRECTED ONCE A DAY DX E11.51 for 90 days Active Encounters Encounter Location Date Provider Diagnosis [facility] [address] [place] [address] 07/22/2024 Ross Sahu Plan Of Treatment Medication Medication Name Sig Start Date Stop Date Notes OneTouch Ultra - USE DIRECTED ONCE A DAY DX E11.51 for 90 days Progress Notes * Ar DAWN CDOB:1939 (84 yo M)Acc No.[id number]:07/22/2024 Patient: Ar WALKER :1940 A ge:84 Y S ex:Male Address:[address] [place] [address] * Refills Refill OneTouch Ultra Strip, -, 100 Each, USE DIRECTED ONCE A DAY, DX E11.51, 90 days, Refills=11 * true * Date: Generated for Printi ng/Faxing/eTransmitting on: 0 07/27/2024 12:31 PM EDT
--- OUTSIDE RECORDS SUMMARY | 2024-07-22 10:26 | XMS_ITS ---
Author Organization The [facility] in [place] Address [address] [place] [address] Care Team Providers Care Operator Prefinish Name Role Phone Ross Sahu Primary Care Provider REASON FOR VISIT Med List update Medications Medication SIG (Take, Route, Frequency, Duration) Notes Start Date End Date Status Xarelto 20 mg TAKE 1 TABLET DAILY Active Metoclopramide HCl 5 MG 1/2 tablet befor e meals Orally and at bedtime 07/22/2024 Active Multivitamin Men - as directed Orally Active Irbesartan 150 MG 1 tablet Orally Once a day for 30 day(s) 07/22/2024 Active metFORMIN HCl 500 MG 1 tablet with a vanessa l Orally Once a day Active Spironolactone 50 MG 1 tablet Orally Onc e a day for 30 days Active Latanoprost 0.005 % 1 drop into affected eye in the evening Ophthalmic Once a day Active Metoprolol Tartrate 50 MG 1 tablet with food Orally Twice a day Active Furosemide 40 MG 1 tablet Orally twic e a day Active Fluconazole 200 MG 1 tablet Orally once a day 07/22/2024 Active Dorzolamide HCl-Timolol Mal PF 2-0.5 % 1 drop into affected eye Ophthalmic Twice a day Active Digoxin 250 MCG 1 tablet Orally Once a day Active Potassium Chloride ER 10 MEQ 1 tablet wi th food Orally Twice a day 07/22/2024 Active Encounters Encounter Location Date Provider Diagnosis [facility] [address] [place] [address] 07/22/2024 Ross Sahu Plan Of Treatment Medication Medication Name Sig Start Date Stop Date Notes Irbesartan 150 MG 1 tablet Orally Once a day for 30 day(s) 07/22/2024 Spironolactone 50 MG 1 tablet Orally Onc e a day for 30 days Progress Notes * Ar DAWN CDOB:1939 (84 yo M)Acc No.[id number]:07/22/2024 Patient: Ar WALKER :1940 A ge:84 Y S ex:Male Address:[address] [place] [address] * Refills Refill Spironolactone Tablet, 50 MG, Orally, 30 Tablet, 1 tablet, Once a day, 30 days, Refills=11 Start Irbesartan Tablet, 150 MG, Orally, 30, 1 tablet, Once a day, 30 day(s) Subjective: * Chief Complaints: * M ed List update * Medical History: * Surgical History: * Hospitalization/Major Diagno stic Procedure: * Medications: T akingDigoxin 250 MCG Tablet 1 tablet Orally Once a day Dorzolamide HCl-Timolol Mal PF 2-0.5 % Solution 1 drop into affected eye Ophthalmic Twice a day Fluconazole 200 MG Tablet 1 tablet Orally once a day Furosemide 40 MG Tablet 1 tablet Orally twice a day Latanoprost 0.005 % Solution 1 drop into affected eye in the evening Ophthalmic Once a day metFORMIN HCl 500 MG Tablet 1 tablet with a meal Orally Once a day Metoclopramide HCl 5 MG Tablet 1/2 tablet before meals Orally and at bedtime Metoprolol Tartrate 50 MG Tablet 1 tablet with food Orally Twice a day Multivitamin Men(Multiple Vitamins-Minerals) - Tablet as directed Orally Potassium Chloride ER 10 MEQ Tablet Extended Release 1 tablet with food Orally Twice a day Spironolactone 50 MG Tablet 1 tablet Orally Once a day Xarelto(Rivaroxaban) 20 mg Tablet TAKE 1 TABLET DAILY Taking Digoxin 250 MCG Tablet 1 tablet Orally Once a day Taking Dorzolamide HCl-Timolol Mal PF 2-0.5 % Solution 1 drop into affected eye Ophthalmic Twice a day Taking Fluconazole 200 MG Tablet 1 tablet Orally once a day Taking Furosemide 40 MG Tablet 1 tablet Orally twice a day Taking Latanoprost 0.005 % Solution 1 drop into affected eye in the evening Ophthalmic Once a day Taking metFORMIN HCl 500 MG Tablet 1 tablet with a meal Orally Once a day Taking Metoclopramide HCl 5 MG Tablet 1/2 tablet before meals Orally and at bedtime Taking Metoprolol Tartrate 50 MG Tablet 1 tablet with food Orally Twice a day Taking Multivitamin Men(Multiple Vitamins-Minerals) - Tablet as directed Orally Taking Potassium Chloride ER 10 MEQ Tablet Extended Release 1 tablet with food Orally Twice a day Taking Spironolactone 50 MG Tablet 1 tablet Orally Once a day Taking Xarelto(Rivaroxaban) 20 mg Tablet TAKE 1 TABLET DAILY DiscontinuedAtorvastatin Calcium 80 MG Tablet 1 tablet Orally Once a day [facility] Fish Oil([place]-3 Fatty Acids) 1000 MG Capsule 1 capsule Orally Once a day Ferrous Sulfate 325 (65 Fe) MG Tablet 1 tablet Orally Once a day Glimepiride 2 MG Tablet 1/2 tablet Orally Once a day Jardiance(Empagliflozin) 10 mg Tablet TAKE 1 TABLET DAILY Klor-Con 10(Potassium Chloride ER) 10 MEQ Tablet Extended Release 1 tablet with food Orally Twice a day Lisinopril 20 MG Tablet 1 tablet Orally Once a day One Touch Delica Lancets One Touch/One Touch II Starter OneTouch Ultra(Glucose Blood) - Strip USE DIRECTED ONCE A DAY DX E11.51 Pantoprazole Sodium 40 MG Tablet Delayed Release 1 tablet Orally Once a day Reglan(Metoclopramide HCl) 5 MG Tablet 1 tablet before meals Orally AC and HS Ventolin HFA(Albuterol Sulfate HFA) 108 (90 Base) MCG/ACT Aerosol Solution 2 puff as needed Inhalation every 4 hrs Discontinued Atorvastatin Calcium 80 MG Tablet 1 tablet Orally Once a day Discontinued [facility] Fish Oil([place]-3 Fatty Acids) 1000 MG Capsule 1 capsule Orally Once a day Discontinued Ferrous Sulfate 325 (65 Fe) MG Tablet 1 tablet Orally Once a day Discontinued Glimepiride 2 MG Tablet 1/2 tablet Orally Once a day Discontinued Jardiance(Empagliflozin) 10 mg Tablet TAKE 1 TABLET DAILY Discontinued Klor-Con 10(Potassium Chloride ER) 10 MEQ Tablet Extended Release 1 tablet with food Orally Twice a day Discontinued Lisinopril 20 MG Tablet 1 tablet Orally Once a day Discontinued One Touch Delica Lancets Discontinued One Touch/One Touch II Starter Discontinued OneTouch Ultra(Glucose Blood) - Strip USE DIRECTED ONCE A DAY DX E11.51 Discontinued Pantoprazole Sodium 40 MG Tablet Delayed Release 1 tablet Orally Once a day Discontinued Reglan(Metoclopramide HCl) 5 MG Tablet 1 tablet before meals Orally AC and HS Discontinued Ventolin HFA(Albuterol Sulfate HFA) 108 (90 Base) MCG/ACT Aerosol Solution 2 puff as needed Inhalation every 4 hrs Objective: * Vitals: * Physical Examination: Assessment: Plan: * Treatment: * Procedure Codes: * true * Date: Generated for Juan Daniel curiel/Elke/Myke on: 07/27/2024 12:31 PM EDT
--- OUTSIDE RECORDS SUMMARY | 2024-07-25 07:18 | XMS_ITS ---
Author Organization [facility] in [place] Address [address] [place] [address] Care Team Providers Care Professor Of Industrial Technology Name Role Phone Ross Sahu Primary Care Provider REASON FOR VISIT Metoclopramide refill Medications Medication SIG (Take, Route, Fr equency, Duration) Notes Start Date End Date Status Metoclopramide HCl 5 MG 1/2 tablet befor e meals Orally and at bedtime for 30 days 07/22/2024 Active Encounters Encounter Location Date Provider Diagnosis [address] [address] 07/25/2024 Ross Sahu Plan Of Treatment Medication Medication Name Sig Start Date Stop Date Notes Metoclopramide HCl 5 MG 1/2 tablet befor e meals Orally and at bedtime for 30 days 07/22/2024 Progress Notes * Ar DAWN CDOB:1939 (84 yo M)Acc No.[id number]:07/25/2024 Patient: Ar WALKER :1940 A ge:84 Y S ex:Male Address:[address] [place] [address] * Refills Refill Metoclopramide HCl Tablet, 5 MG, Orally, 60, 1/2 tablet before meals, and at bedtime, 30 days, Refills=11 * true * Date: Generated for Printi ng/Fabenjaming/eTransmitting on: 0 07/27/2024 12:32 PM EDT
[2024-07-27] VITALS (23 sets, daily range): BP systolic 137–180; BP diastolic 52–91; PULSE 41–77; TEMP 36.6–36.7; O2SAT 76–98; BMI 24.2; BMI 22.6
--- OUTSIDE RECORDS SUMMARY | 2024-07-27 12:31 | XMS_ITS | Encounter Summary ---
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) Social History Tobacco Use Types Packs/Day Years Used Date Smoking Tobacco: Former Cigarettes Smokeless Tobacco: Never Alcohol Use Standard Drinks/Week Comments Not Currently 0 (1 standard drink = 0.6 oz pur e alcohol) PHQ-2 Answer Date Recorded Patient Health Questionnaire-2 Score 0 03/20/2024 OR Safety & Environment Answer Date Rec orded Fear of Current or Ex-Partner Not on file Emotionally Abused Not on file 04/26/2023 Physically Abused Not on file 04/26/2023 Sexually Abused Not on file 04/26/2023 Physically or Sexually Abused Not on file Sex and Gender Information Value Date Recorded Sex Assigned at Not on file Gender Identity Not on file Sexual Orientation Not on file documented as of this encounter Plan of Treatment Upcoming Encounters Date Type Department Care Team (Late st Contact Info) Description 10/09/2024 9:20 AM EDT Office Visit [facility] [address] [place] [address] Wade Dixon MD [address] [place] [address] documented as of this encounter Visit Diagnoses Diagnosis 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
--- OUTSIDE RECORDS SUMMARY | 2024-07-27 12:31 | XMS_ITS | Encounter Summary ---
Author Organization [facility] Address [id number] [address] [place] [address] Care Team Providers Care Rn Manager Name Role Phone Unavailable Primary Care Provider Unavailabl e Encounter Details Date Type Department Care Team (Late st Contact Info) Description 03/20/2024 Telephone [facility] Pulmonary/Sleep Medicine [address] [address] Radha Kelly, AGGIE Social History Tobacco Use Types Packs/Day Years Used Date Smoking Tobacco: Never Assessed Sex and Gender Information Value Date Recorded Sex Assigned at Not on file Legal Sex Male 11:14 AM EST Gender Identity Not on file Sexual Orientation Not on file documented as of this encounter Miscellaneous Notes * Telephone Encounter - Radha Kelly RN - 03/20/2024 10:20 AM EST Reviewed referral over [address] Llanos office asking if pt has a CT chest, PET or Path report I am missing Dr Llanos plan of care and I also see a referral to Dr Chandra there is notneed to see both. I asked marla to clarify who pt is seeing Marla called back pt has an appt with Dr Chandra we can cancel referral * Telephone Encounter - Adalgisa Hall - 03/20/2024 10:20 AM EST We received office notes again from Dr. Llanos office- notes dated March, nothing recent. I called and spoke to patients just to verify patient wasn't transferring to our office. states states no appt is needed with pulm at all at this time. Faxed referring back. documented in this encounter Plan of Treatment Not on file documented as of this encounter Visit Diagnoses Not on filedocumented in this encounter
--- OUTSIDE RECORDS SUMMARY | 2024-07-27 12:31 | XMS_ITS | Encounter Summary ---
Author Organization [facility] Address [address] [place] [address] Care Team Providers Care Trauma Therapist Name Role Phone Jaxon Sahu MD Primary Care Provider [phone] Encounter Details Date Type Department Care Team (Late st Contact Info) Description 07/07/2024 Orders Only [facility] [address] [place] [address] Aaron Perez MD [address] [place] [address] Social History Tobacco Use Types Packs/Day Years Used Date Smoking Tobacco: Former Cigarettes Smokeless Tobacco: Never Alcohol Use Standard Drinks/Week Comments Not Currently 0 (1 standard drink = 0.6 oz pur e alcohol) PHQ-2 Answer Date Recorded Patient Health Questionnaire-2 Score 0 03/20/2024 [place] Safety & Environment Answer Date Rec orded [...] Description 10/09/2024 9:20 AM EDT Office Visit [facility] [address] [place] [address] Wade Dixon MD [address] MS[address] [place] [address] documented as of this encounter Procedures Procedure Name Priority Date/Time Associated Diagnosis Comments CARDIAC DEVICE CHECK - REMOTE ALERT - PACEMAKER Routine 07/07/2024 12:00 AM EDT documented in this encounter Results * Cardiac device check - Remote alert pacemaker (07/07/2024 12:00 AM EDT) Anatomical Region Laterality Modality Other 07/07/2024 Aaron Perez MD CV IMPLANTABLE CARDI AC DEVICE PROCEDURES documented in this encounter Visit Diagnoses Not on filedocumented in this encounter Care Teams Trauma Therapist Relationship Specialty Start Date End Date Jaxon Sahu MD [address] [facility] [address] [place] [address] PCP - General 04/07/22 documented as of this encounter
--- OUTSIDE RECORDS SUMMARY | 2024-07-27 12:32 | XMS_ITS | Encounter Summary ---
Author Organization [facility] Address [facility] [place] [address] Care Team Providers Care Equipment Inspector Name Role Phone Jaxon Sahu MD Primary Care Provider [phone] Source Comments In the event this information is protected by the Federal Confidentiality of Alcohol and Drug AbusePatient Records regulations: The Federal rules restrict any use of the information to criminally investigate or prosecute any alcohol or drug abuse patient.[facility] Encounter Details Date Type Department Care Team (Latest Contact Info) Description 04/01/2024 H&P External-NonCCF Provider, External, ISAEL Do not enter address information under generic External Provider. Social History Tobacco Use Types Packs/Day Years Used Date Smoking Tobacco: Former Cigarettes 2 30 0 03/05/1969 - 03/05/1999 Smokeless Tobacco: Never Alcohol Use Standard Drinks/Week Comments No 0 (1 standard drink = 0.6 oz pur e alcohol) Area Deprivation Index Answer Date Dev rded National Score (1-100), lower number is lower ri sk Not on file 02/11/2020 State Score (1-10), lower number is lower risk N ot on file 02/11/2020 Data from: https://www.neighborhoodatlas.medicine.[facility].edu/. Last address used for calculation Not on file 02/11/2020 Sex and Gender Information Value Date Recorded Sex Assigned at Not on file Legal Sex Male 10:06 AM EDT Gender Identity Not on file Sexual Orientation Not on file Occupation Industry Job Start Date Job End Date retired Not on file Not on file Not on file documented as of this encounter Functional Status * Are you deaf or do you have serious difficulty hearing? Answer Date of Assessment Author No 09/28/2014 11:08 AM Rosetta Garcia RN * Are you blind or do you have serious difficulty seeing, even when wearing glasses? Answer Date of Assessment Author No 09/28/2014 11:08 AM Rosetta Garcia RN * Do you have serious difficulty walking or climbing stairs? Answer Date of Assessment Author No 09/28/2014 11:08 AM Rosetta Garcia RN * Do you have difficulty dressing or bathing? Answer Date of Assessment Author No 09/28/2014 11:08 AM Rosetta Garcia RN * Because of a physical, mental, or emotional condition, do you have difficulty doing errands alone such as visiting a doctor's office or shopping? Answer Date of Assessment Author No 09/28/2014 11:08 AM Rosetta Garcia RN documented as of this encounter Mental Status * Because of a physical, mental, or emotional condition, do you have serious difficulty concentrating, remembering, or making decisions? Answer Entry Date Author No 09/28/2014 11:08 AM Rosetta Garcia RN documented in this encounter Plan of Treatment Not on file documented as of this encounter Visit Diagnoses Not on filedocumented in this encounter Care Teams Equipment Inspector Relationship Specialty Start Date End Date Jaxon Sahu MD PCP - General Family Medicine 05/26/14 documented as of this encounter
--- OUTSIDE RECORDS SUMMARY | 2024-07-27 12:32 | XMS_ITS | Referral Summary ---
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) 07/08/2024 6:00 PM EDT Ancillary Procedure [facility] [address] [place] [phone] Adjustment and management of cardiac pacemaker 07/07/2024 Orders Only [facility] [address] [place] [phone] Aaron Perez MD 07/04/2024 10:40 AM EDT Office Visit [address] [address] Wade Dixon MD Bacteremia (Primary Dx); 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 Active metFORMIN (Glucophage) 500 mg tablet Take 500 mg by mouth with breakfast and with evening meal. 01/19/2022 Active pantoprazole (ProtoNix) 40 mg EC tablet Take 40 mg by mouth before breakfast. Active rivaroxaban (Xarelto) 20 mg tablet Take 20 mg by mouth once daily as directed. Active empagliflozin (Jardiance) 10 mgIndications:Danny ign hypertensive heart disease with heart failure (CMS/HCC) Take 1 tablet (10 mg) by mouth in the morning. 30 tablet 2 09/29/2022 Active metoprolol succinate XL (Toprol-XL) 100 mg 24 hr tablet Take 1 tablet (100 mg) by mouth in the morning. 30 tablet 11 05/05/2024 Active digoxin (Lanoxin) 250 MCG tab;et Take 1 tablet by mouth in the morning. 05/17/2024 Active potassium chloride CR (Klor-Con) 10 mEq ER tablet Take 10 mEq by mouth twice a day. Active amoxicillin-pot clavulanate (Augmentin) 500-125 mg tablet Take 1 tablet by mouth two times daily. 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 90 tablet 3 07/21/2024 07/22/19 Active atorvastatin (Lipitor) 80 mg tablet Take 80 mg by mouth at bedtime. 07/05/19 Discontinued glimepiride (Amaryl) 4 mg tablet Take 2 mg by mouth before breakfast. 07/05/19 Discontinued ferrous sulfate 325 (65 Fe) MG tablet Take 1 tablet by mouth in the morning. 07/05/19 Discontinued(The rapy completed) predniSONE (Deltasone) 10 mg tablet Take 10 mg by mouth in the morning. 07/05/19 Discontinued(The rapy completed) lisinopril 20 mg tablet Take 20 mg by mouth in the morning. 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 30 tablet 11 07/04/2024 07/22/19 25 Discontinued(Reo rder) Active Problems Problem Noted Date Diagnosed Date Bacteremia 07/06/2024 Malignant neoplasm of lung 07/06/2024 Pacemaker 05/05/2024 Sinus pause 02/25/2024 Chronic combined systolic and diastolic heart fa ilure 02/08/2024 Lung mass 02/08/2024 Pulmonary hypertension 02/08/2024 Nonrheumatic aortic valve stenosis 02/08/2024 Age-related nuclear cataract of both eyes 2023 BPH (benign prostatic hyperplasia) 10/23/2022 10/23/2022 BPH with urinary obstruction 10/23/2022 Diabetes 10/23/2022 10/23/2022 Elevated PSA 10/23/2022 10/23/2022 Glycosuria 10/23/2022 10/23/2022 Gross hematuria 10/23/2022 10/23/2022 Hypertension 10/23/2022 10/23/2022 Nocturia 10/23/2022 10/23/2022 Prostatitis 10/23/2022 10/23/2022 Renal cyst 10/23/2022 10/23/2022 Right hydrocele 10/23/2022 10/23/2022 Exudative age-related macula r degeneration of right eye with active choroidal neovascularization 09/27/2022 10/23/2022 Primary open angle glaucoma (POAG) of both eyes, mild stage 09/27/2022 10/23/2022 Coronary atherosclerosis 08/11/2020 Assessment & Plan (04/07/2022 11:22 AM EST): Coronary artery disease is stable- no concerning symptoms continue risk factor modifications- heart healthy diet, regular exercise as tolerated and continue all medications. Continue lipitor, coreg, plavix, Systolic heart failure 08/11/2020 Assessment & Plan (04/07/2022 11:23 AM EST): NY II Continue GDMT- lipitor, coreg, benazepril Diuretic therapy lasix Currently euvolemic without exacerbation Monitor daily weights, I&O, fluid restriction 1.5-2L/day, renal function and electrolytes- please maintain K+>4 and Mg > 2 Hyperkalemia 08/10/2020 History of prostate cancer 06/09/2015 Malignant neoplasm of prostate 07/01/2014 Atrial fibrillation 05/28/2014 Assessment & Plan (04/07/2022 12:35 PM EST): [id number]- VASc= 5 Remains on Xarelto anticoagualtion Rate remains controlled with coreg. Denied any bleeding tendencies. Hyperlipidemia 05/28/2014 Assessment & Plan (04/07/2022 11:22 AM EST): Continue lipitor Benign hypertensive heart disease with heart luis felipe lure 05/28/2014 Assessment & Plan (04/07/2022 11:09 AM EST): B/P well controlled today 130/80 Continue coreg, amlodipine-benazepril, lasix Social History Tobacco Use Types Packs/Day Years Used Date Smoking Tobacco: Former Cigarettes Smokeless Tobacco: Never Tobacco Cessation:Counseling Given: Not Answered Alcohol Use Standard Drinks/Week Comments Not Currently 0 (1 standard drink = 0.6 oz pur e alcohol) PHQ-2 Answer Date Recorded Patient Health Questionnaire-2 Score 0 03/20/2024 [place] Safety & Environment Answer Date Rec orded Fear of Current or Ex-Partner Not on file Emotionally Abused Not on file 04/26/2023 Physically Abused Not on file 04/26/2023 Sexually Abused Not on file 04/26/2023 Physically or Sexually Abused Not on file Sex and Gender Information Value Date Recorded Sex Assigned at Not on file Gender Identity Not on file Sexual Orientation Not on file Last Filed Vital Signs Vital Sign Reading Time Taken Comments Blood Pressure 158/78 07/04/2024 11:16 AM EDT Pulse 59 07/04/2024 11:16 AM EDT Temperature 36.6 C (97.9 F) 04/09/2024 12:25 PM EST Respiratory Rate 24 04/09/2024 12:55 PM EST Oxygen Saturation 96% 07/04/2024 11:16 AM EDT Inhaled Oxygen Concentration - - Weight 65.8 kg (145 lb) 07/04/2024 11:16 AM EDT Height 166.4 cm (5' 5.5 ) 07/04/2024 11:16 AM ED T Body Mass Index 23.76 07/04/2024 11:16 AM EDT Plan of Treatment Upcoming Encounters Date Type Department Care Team (Late st Contact Info) Description 10/09/2024 9:20 AM EDT Office Visit [facility] [address] [place] [address] Wade Dixon MD [address] [place] [address] Medical Devices Implanted Type Area Hearing And Speech Assistant Device Identifier Shelf Expiration Date Model / Serial / Lot Ingevity+ Is-1 Bi Positive Fix Ra/Rv 59cm Implanted:Qty : 1 on 03/03/2024 by Aaron Perez MD at [facility] Lead N/A: Chest [employer] [id number] 07/03/2025 [id number] / [id number] / Pacer,Accolad e Mri Sr - [id number] - [id number] Implanted:Qty : 1 on 03/03/2024 by Aaron Perez MD at [facility] Pacemaker N/A: Chest [employer] [id number] 02/14/2025 [id number] / [id number] / Procedures Procedure Name Priority Date/Time Associated Diagnosis Comments CARDIAC DEVICE CHECK CHECK - REMOTE Routine 07/18/2024 10:47 AM EDT Adjustment and management of cardiac pacemaker CARDIAC DEVICE CHECK - REMOTE ALERT - PACEMAKER Routine 07/07/2024 12:00 AM EDT CARDIAC DEVICE CHECK CHECK - REMOTE Routine 07/02/2024 10:49 AM EDT Adjustment and management of cardiac pacemaker from Last 3 Months Results * CARDIAC DEVICE CHECK - REMOTE ALERT - PACEMAKER (07/18/2024 10:47 AM EDT) Only the most recent of2 resultswithin the time period is included. Aaron Perez MD CV IMPLANTABLE CARDI AC DEVICE PROCEDURES CPACS * Cardiac device check - Remote alert pacemaker (07/07/2024 12:00 AM EDT) Anatomical Region Laterality Modality Other 07/07/2024 Aaron Perez MD CV IMPLANTABLE CARDI AC DEVICE PROCEDURES from Last 3 Months Care Teams Stitchdowns Toe Former Relationship Specialty Start Date End Date Jaxon Sahu MD [address] [place] [address] PCP - General 04/07/22
--- OUTSIDE RECORDS SUMMARY | 2024-07-27 12:32 | XMS_ITS | Encounter Summary ---
Author Organization [facility] Address [address] [place] [address] Care Team Providers Care Digital Sales Director Name Role Phone Jaxon Kenney MD Primary Care Provider [phone] Encounter Details Date Type Department Care Team (Late Contact Info) Description 07/21/2024 Telephone [facility] [address] [place] [address] Debbie De La Vega MA Social History Tobacco Use Types Packs/Day Years Used Date Smoking Tobacco: Former Cigarettes Smokeless Tobacco: Never Alcohol Use Standard Drinks/Week Comments Not Currently 0 (1 standard drink = 0.6 oz pur e alcohol) PHQ-2 Answer Date Recorded Patient Health Questionnaire-2 Score 0 03/20/2024 [place] Safety & Environment Answer Date Rec orded [...] encounter Miscellaneous Notes * Telephone Encounter - Debbie De La Vega MA - 07/22/2024 12:02 PM EDT Oncology is calling, states pt bp is 200/81, he is seeing Dr kenney and will let us know documented in this encounter Plan of Treatment Upcoming Encounters Date Type Department Care Team (Late st Contact Info) Description 10/09/2024 9:20 AM EDT Office Visit [facility] [address] [place] [address] Wade Dixon MD [address] [place] [address] documented as of this encounter Visit Diagnoses Not on filedocumented in this encounter Care Teams Digital Sales Director Relationship Specialty Start Date End Date Jaxon Kenney MD [address] [facility] [address] [address] PCP - General 04/07/22 documented as of this encounter
--- OUTSIDE RECORDS SUMMARY | 2024-07-27 12:32 | XMS_ITS ---
Author Organization [facility] Address [address] [place] [address] Care Team Providers Care Channeling Machine Runner Name Role Phone Jaxon Sahu MD Primary Care Provider [phone] Active Problems Problem Noted Date Diagnosed Date [...] Assessment & Plan (04/07/2022 11:23 AM EST): NYHC II Continue GDMT- lipitor, coreg, benazepril Diuretic therapy lasix Currently euvolemic without exacerbation Monitor daily weights, I&O, fluid restriction 1.5-2L/day, renal function and electrolytes- please maintain K+>4 and Mg > 2 Hyperkalemia 08/10/2020 History of prostate cancer 06/09/2015 Malignant neoplasm of prostate 07/01/2014 Atrial fibrillation 05/28/2014 Assessment & Plan (04/07/2022 12:35 PM EST): [id number]- VASc= 5 Remains on Xarelto anticoagualtion Rate remains controlled with coreg. Denied any bleeding tendencies. Hyperlipidemia 05/28/2014 Assessment & Plan (04/07/2022 11:22 AM EST): Continue lipitor Benign hypertensive heart disease with heart luis felipe lure 05/28/2014 Assessment & Plan (04/07/2022 11:09 AM EST): B/P well controlled today 130/80 Continue coreg, amlodipine-benazepril, lasix Current Oncology Plans No current plan information found. Past Plans No past plan information found. Radiation Treatments * No radiation treatments are documented for this patient in [facility]. Treatments may have been administered in another system. Lifetime Dose Tracking * Chemical Lifetime Dose Automatic Entry Manual Entr y Fluoro Time 5.6 minutes 0 minutes 5.6 minutes Air Kerma 23 mGy 0 mGy 23 mGy
--- OUTSIDE RECORDS SUMMARY | 2024-07-27 12:32 | XMS_ITS | Clinical Summary ---
Author [facility] Address [address] [place] [address] Care Team Providers Care Rescue Boat Operator Name Role Phone Jaxon Sahu MD Primary Care Provider [phone] Encounters Date Type Department Care Team Description 06/13/2024 2:27 PM EDT - 06/13/2024 11:59 PM EDT Hospital Encounter [facility] [address] [place] [address] Discharge Disposition: Home or Self Care 06/10/2024 2:51 PM EDT - 06/10/2024 11:59 PM EDT Hospital Encounter [facility] [address] [place] [address] Discharge Disposition: Home or Self Care 06/06/2024 5:51 AM EDT - 06/06/2024 11:59 PM EDT Hospital Encounter [facility] [address] [place] [address] Discharge Disposition: Home or Self Care from Last 3 Months Social History Tobacco Use Types Packs/Day Years Used Date Smoking Tobacco: Never Assessed Sex and Gender Information Value Date Recorded Sex Assigned at Not on file Legal Sex Male 5:44 AM EDT Gender Identity Not on file Sexual Orientation Not on file Plan of Treatment Health Maintenance Due Date Last Done Comments DTaP/Tdap/Td vaccine (1 - Tdap) 1961 Respiratory Syncytial Virus (RSV) or age 60 yrs+ (1 - 1-dose 75+ series) 2017 COVID-19 Vaccine (2023-2 5 season) 2023 Flu vaccine (Season Ended) 2024 Polio vaccine Aged Out No longer elig ible based on patient's age to complete this topic Procedures Procedure Name Priority Date/Time Associated Diagnosis Comments VANCOMYCIN LEVEL, TROUGH Routine 06/13/2024 9:30 AM EDT VANCOMYCIN LEVEL, TROUGH Routine 06/10/2024 9:30 AM EDT VANCOMYCIN LEVEL, TROUGH Routine 06/06/2024 12:00 AM EDT from Last 3 Months Results * Vancomycin Level, Trough (06/13/2024 9:30 AM EDT) Only the most recent of3 resultswithin the time period is included. [facility] Vancomycin Tr 12.3 10.0 - 20.0 ug/mL 06/13/2024 9:30 AM EDT [facility] Vancomycin Trough Dose amount Unknown 06/13/2024 9:30 AM EDT [facility] Vancomycin Trough Date last dose UNK^Unknown ^L 06/13/2024 9:30 AM EDT [facility] Vancomycin Trough Time last dose UNK^Unknown ^L 06/13/2024 9:30 AM EDT [facility] 06/13/2024 9:30 AM EDT 06/13/2024 2:38 PM EDT us Jaxon Sahu MD CHEMISTRY ORDERABLES Final Resu lt [facility] [address] [facility] [place] [address], [facility] [phone] from Last 3 Months Insurance [employer] MEDICARE Care Teams Rescue Boat Operator Relationship Specialty Start Date End Date Jaxon Sahu MD [address] [place] [address] PCP - General Family Medicine 06/06/24
--- OUTSIDE RECORDS SUMMARY | 2024-07-27 12:32 | XMS_ITS | Clinical Summary ---
Author Organization [facility] Address [address] [place] [address] Care Team Providers Care Clean Out Driller Name Role Phone Jaxon Sahu MD Primary Care Provider [phone] Allergies No known active allergies Medications Medication [...] the morning. 90 tablet 3 07/21/2024 07/22/19 26 Active atorvastatin (Lipitor) 80 mg tablet Take 80 mg by mouth at bedtime. 07/05/19 Discontinued glimepiride (Amaryl) 4 mg tablet Take 2 mg by mouth before breakfast. 07/05/19 Discontinued ferrous sulfate 325 (65 Fe) MG tablet Take 1 tablet by mouth in the morning. 07/05/19 25 Discontinued(The rapy completed) predniSONE (Deltasone) 10 mg tablet Take 10 mg by mouth in the morning. 07/05/19 Discontinued(The rapy completed) lisinopril 20 mg tablet Take 20 mg by mouth in the morning. 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 30 tablet 11 05/05/2024 07/05/19 Discontinued(Dos e adjustment) spironolactone (Aldactone) 50 mg [...] Assessment & Plan (04/07/2022 12:35 PM EST): [id number]- VASc= 5 Remains on Xarelto anticoagualtion Rate remains controlled with coreg. Denied any bleeding tendencies. 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 [address] [place] [address] Adjustment and management of cardiac pacemaker 07/07/2024 Orders [address] 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); Permanent atrial fibrillation (CMS/HCC); Atherosclerosis of resighini coronary artery of resighini heart without angina pectoris; Pacemaker; Pulmonary hypertension (CMS/HCC); Nonrheumatic aortic valve stenosis; Benign hypertensive heart disease with heart failure (CMS/HCC); Mixed hyperlipidemia; Malignant neoplasm of lung, unspecified laterality, unspecified part of lung (CMS/HCC) 05/21/2024 Orders Only [address] [address] Kristi Huang MA Positive blood culture 05/05/2024 1:40 PM EST Office Visit [address] [address] Wade Dixon MD 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) (Primary Dx); Permanent atrial fibrillation (CMS/HCC); Atherosclerosis of resighini coronary artery of resighini heart without angina pectoris; Nonrheumatic aortic valve stenosis; Pulmonary hypertension (CMS/HCC); Sinus pause; Pacemaker; Benign hypertensive heart disease with heart failure (CMS/HCC); Mixed hyperlipidemia from Last 3 Months Family History Medical History Relation Name Comments CABG Brother Coronary artery disease Brother cardiac arrest Father Relation Name Status Comments Brother Father Social History Tobacco Use Types Packs/Day Years Used Date Smoking Tobacco: Former Cigarettes Smokeless Tobacco: Never Tobacco Cessation:Counseling Given: Not Answered Alcohol Use Standard Drinks/Week Comments Not Currently 0 (1 standard drink = 0.6 oz pur e alcohol) PHQ-2 Answer Date Recorded Patient Health Questionnaire-2 Score 0 03/20/2024 [place] Safety & Environment Answer Date Rec orded [...] Description 10/09/2024 9:20 AM EDT Office Visit [facility] [address] [place] [address] Wade Dixon MD [address] [place] [address] Health Maintenance Due Date Last Done Comments Diabetes: Hemoglobin A1C 1940 Medicare Annual Wellness (AWV) 1940 Diabetes: Retinopathy Screening 02/16/1952 Diabetes: Urine Protein Screening 1961 Adult Tetanus 02/16/1964 Zoster Vaccines (1 of 2) 02/16/1992 Pneumococcal Vaccine: 65+ Years (2 of 2 - PPSV23 or PCV20) 02/14/2017 12/20/2016 COVID-19 Vaccine ( season) 2023 11/23/2021, 12/30/2020, 05/13/2020, Additional history exists Influenza Vaccine (Season Ended) 2024 Depression Screening 03/20/2025 03/20/2024 Fall Risk Screening 03/20/2025 03/20/2024 HIB Vaccines Aged Out No longer eligi ble based on patient's age to complete this topic HPV Vaccines Aged Out No longer eligi ble based on patient's age to complete this topic IPV Vaccines Aged Out No longer eligi ble based on patient's age to complete this topic Meningococcal B Vaccine Aged Out No l onger eligible based on patient's age to complete this topic Meningococcal Vaccine Aged Out No jhonatan joan eligible based on patient's age to complete this topic Rotavirus Vaccines Aged Out No longer eligible based on patient's age to complete this topic Medical Devices Implanted Type Area Sales Floor Associate Device Identifier Shelf Expiration Date Model / Serial / Lot Ingevity+ Is-1 Bi Positive Fix Ra/Rv 59cm Implanted:Qty : 1 on 03/03/2024 by Aaron Perez MD at [facility] Lead N/A: Chest [employer] [id number] 07/03/2025 [id number] / [id number] / Pacer,Accolad e Mri Sr - [id number] - [id number] Implanted:Qty : 1 on 03/03/2024 by Aaron Perez MD at [facility] Pacemaker N/A: Chest [employer] [id number] 02/14/2025 [id number] / [id number] / Procedures Procedure Name Priority Date/Time Associated [...] PROCEDURES from Last 3 Months Care Teams Clean Out Driller Relationship Specialty Start Date End Date Jaxon Sahu MD [address] [facility] [address] [address] PCP - General 04/07/22
--- OUTSIDE RECORDS SUMMARY | 2024-07-27 12:32 | XMS_ITS | Encounter Summary ---
Author Organization [facility] Address [facility] [place] [address] Care Team Providers Care Adult Education Teacher Name Role Phone Jaxon Sahu MD Primary Care Provider [phone] Source Comments In the event this information is protected by the Federal Confidentiality of Alcohol and Drug AbusePatient Records regulations: The Federal rules restrict any use of the information to criminally investigate or prosecute any alcohol or drug abuse patient.[facility] Encounter Details Date Type Department Care Team (Latest Contact Info) Description 04/03/2024 H&P External-NonCCF Provider, External, ISAEL Do not [...] N ot on file 02/11/2020 Data from: [email or web address] Last address used for calculation Not [...] on filedocumented in this encounter Care Teams Adult Education Teacher Relationship Specialty Start Date End Date Jaxon Sahu MD PCP - General Family Medicine 05/26/14 documented as of this encounter
--- OUTSIDE RECORDS SUMMARY | 2024-07-27 12:32 | XMS_ITS | Clinical Summary ---
Author Organization [facility] Healthcare Address [address] [place] [address] Care Team Providers Care Plumbing Manager Name Role Phone Unavailable Primary Care Provider Unavailabl e Allergies No known active allergies Medications simvastatin (Zocor) 20 MG tablet 1 (one) time each day at the same time. Active rivaroxaban (Xarelto) 20 MG tablet Take 1 tablet every day by oral route for 90 days. Active pantoprazole (ProtoNix) 40 MG EC tablet Take 1 tablet by mouth in the morning. Active omega-3 (fish oil) 1000 MG capsule 1 capsule 1 (one) time each day at the same time. Active Multiple Vitamins-Minera ls (Multivitamin Men) tablet as directed Orally Active mometasone (Elocon) 0.1 % cream 1 application 1 (one) time each day at the same time. Active metFORMIN (Glucophage) 500 MG tablet Take 1 tablet by mouth in the morning and 1 tablet before bedtime. Active levoFLOXacin (Levaquin) 500 MG tablet 1 (one) time each day at the same time. Active glimepiride (Amaryl) 4 MG tablet Take 1 tablet by mouth in the morning and 1 tablet before bedtime. Active furosemide (Lasix) 20 MG tablet Take 1 tablet twice a day by oral route for 90 days. Active ferrous sulfate 325 (65 Fe) MG tablet Take 1 tablet by mouth in the morning. Active Jardiance 10 MG Take 1 tablet by mouth in the morning. Active carvedilol (Coreg) 6.25 MG tablet Take 1 tablet twice a day by oral route. Active carvedilol (Coreg) 12.5 MG tablet Take 1 tablet twice a day by oral route. 3 Active atorvastatin (Lipitor) 80 MG tablet TAKE 1 TABLET BY MOUTH DAILY (STOP ZOCOR) Active aspirin 81 MG EC tablet Take 1 tablet by mouth in the morning. Active amLODIPine-escobar zepril (Lotrel) 10-20 MG capsule Take 1 capsule every day by oral route for 90 days. Active latanoprost (Xalatan) 0.005 % ophthalmic solutionIndicat ions:Primary open angle glaucoma (POAG) of both eyes, mild stage Administer 1 drop into both eyes at bedtime 2.5 mL 5 Active dorzolamide-leidy olol (Cosopt) 2-0.5 % ophthalmic solutionIndicat ions:Primary open angle glaucoma (POAG) of both eyes, mild stage Administer 1 drop into both eyes in the morning and 1 drop before bedtime. 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 11/27/2023 Age-related nuclear cataract of both eyes 2023 Primary open angle glaucoma (POAG) of both eyes, mild stage 09/27/2022 Resolved Problems Problem Noted Date Diagnosed Date Resolved Date Exudative age-related macula r degeneration of right eye with active choroidal neovascularization 09/27/2022 11/27/2023 Encounters Date Type Department Care Team Description 06/17/2024 2:15 PM EDT Office Visit [facility] [address] [place] [id number] Aris Engle, 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) (Primary Dx); Primary open angle glaucoma (POAG) of both eyes, mild stage; 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; Age-related nuclear cataract of both eyes 06/17/2024 Bamboo flowsheet [facility] [address] [place] [phone] Aris Engle DO 06/17/2024 Travel 05/02/2024 Refill [facility] [address] [place] [phone] Cora Cook COT Primary open angle glaucoma (POAG) of both eyes, mild stage (CMS/HCC) from Last 3 Months Social History Tobacco Use Types Packs/Day Years Used Date Smoking Tobacco: Never Tobacco Cessation:Counseling Given: Not Answered Sex and Gender Information Value Date Recorded Sex Assigned at Not on file Legal Sex Male 8:35 PM EDT Gender Identity Not on file Sexual Orientation Not on file Last Filed Vital Signs Vital Sign Reading Time Taken Comments Blood Pressure 122/82 04/08/2019 12:00 PM EST Pulse - - Temperature - - Respiratory Rate - - Oxygen Saturation - - Inhaled Oxygen Concentration - - Weight 80.7 kg (178 lb) 04/08/2019 12:00 PM EST Height 170.2 cm (5' 7 ) 04/08/2019 12:00 PM EST Body Mass Index 27.88 04/08/2019 12:00 PM EST Plan of Treatment Upcoming Encounters Date Type Department Care Team (Late st Contact Info) Description 07/29/2024 10:30 AM EDT Office Visit [facility] [address] [place] [phone] Aris Engle DO [address] [place] [address] Health Maintenance Due Date Last Done Comments Pneumococcal Vaccine: 65+ Years (2 of 2 - PPSV23) 12/0312/20/2016 Influenza Vaccine (Season Ended) 2024 Procedures Procedure Name Priority Date/Time Associated Diagnosis Comments INTRAVITREAL INJECTION, PHARMACOLOGIC AGENT - OD - RIGHT EYE Routine 06/17/2024 3:50 PM EDT 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) OCT, OPTIC NERVE - OU - BOTH EYES Routine 06/17/2024 3:16 PM EDT Primary open angle glaucoma (POAG) of both eyes, mild stage OCT, RETINA - OU - BOTH EYES Routine 06/17/2024 3:16 PM EDT 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 from Last 3 Months Results * Intravitreal Injection, Pharmacologic Agent - OD - Right Eye (06/17/2024 3:50 PM EDT) Anatomical Region Laterality Modality Head Other Narrative 06/17/2024 3:50 PM EDT Time Out 06/17/2024. 3:50 PM. Confirmed correct patient, procedure, site, and patient consented. Anesthesia Topical anesthesia was used. Anesthetic medications included Lidocaine 2%, Proparacaine 0.5%. Procedure Preparation included 5% betadine to ocular surface, eyelid speculum. A 30 gauge needle was used. Injection: 1.25 mg Bevacizumab 1.25 MG/0.05ML Route: Intravitreal, Site: Right Eye [place]: [id number], Lot: [id number], Expiration date: 08/05/2024 Post-op Post injection exam [...] increased pain, redness, decreased vision or concerns. us Aris Engle DO OPHTH CLINIC PROCEDURES Fin al Result * OCT, Optic Nerve - OU - Both Eyes (06/17/2024 3:16 PM EDT) Anatomical Region Laterality Modality Head Optical Coherenc e Tomography Narrative 06/17/2024 3:16 PM EDT Right Eye Images reviewed and comparison made to baseline, Images reviewed. To assess optic nerve function and for use in future follow-up. Reliability: good and adequate. Left Eye Images reviewed and comparison made to baseline, Images reviewed. To assess optic nerve function and for use in future follow-up. Reliability: good and adequate. Notes Nerve fiber layer (NFL) thinning both eyes (OU). Aris Engle DO OPHTH TOMOGRAPHY Edited Res ult - Final * OCT, Retina - OU - Both Eyes (06/17/2024 3:16 PM EDT) Anatomical Region Laterality Modality Head Optical Coherenc e Tomography Narrative 06/17/2024 3:16 PM EDT Right Eye Quality was borderline. Scan locations included subfoveal. Progression has worsened. Findings include abnormal foveal contour, subretinal fluid, subretinal scarring. Left Eye Quality was good. Scan locations included subfoveal. Progression has been stable. Findings include abnormal foveal contour, subretinal scarring. Aris Engle DO OPHTH TOMOGRAPHY Edited Res ult - Final from Last 3 Months Insurance [address] [place] [address] [employer]
--- OUTSIDE RECORDS SUMMARY | 2024-07-27 12:32 | XMS_ITS | Patient Health Record ---
Author Organization [facility] in [place] Address [address] [place] [address] Care Team Providers Care Desk Representative Name Role Phone Ross Sahu Primary Care Provider Chel Rodriguezorva Unavailable [phone] GoldStephanieRobert Unavailable [phone] Allergies No Known Allergies Results Component Value Reference Range Notes PROF 14(COMP METB) Reviewed date:03/01/2024 09:04:34 PM Interpretation: Performing Lab: Notes/Report: [facility] , Sodium 139 136-145 mmol/L Potassium 4.0 3.5-5.1 mmol/L Chloride 102 98-107 mmol/L Carbon Dioxide 31.0 21.0-32.0 mmol/L Anion Gap 10.0 Glucose 245 74-106 mg/dL Blood Urea Nitrogen 14.0 7.0-18.0 mg/dL Creatinine 1.13 0.70-1.30 mg/dL Estimated GFR ( Cierra >60 >=60 mL/min/1.73m 2 Estimated GFR (Non- Marti >60 >=60 mL/min/1.73m 2 BUN Creatinine Ratio 12.4 Calcium 9.1 8.5-10.1 mg/dL Bilirubin Total 1.0 0.2-1.0 mg/dL Aspartate Amino Transferase 16 15-37 U/L Alanine Aminotransferase 22 16-63 U/L Alkaline Phosphatase 56 46-116 U/L Total Protein 6.2 6.4-8.2 g/dL Albumin Level 3.3 3.4-5.0 g/dL Globulin 2.9 Albumin Globulin Ratio 1.1 Performing Lab: see note [facility] PROF 14(COMP METB) Reviewed date:06/23/2024 08:12:54 PM Interpretation: Performing Lab: Notes/Report: [facility] , Sodium 143 136-145 mmol/L Potassium 4.3 3.5-5.1 mmol/L Chloride 101 98-107 mmol/L Carbon Dioxide 34.7 21.0-32.0 mmol/L Anion Gap 11.6 Glucose 153 74-106 mg/dL Blood Urea Nitrogen 19.0 7.0-18.0 mg/dL Creatinine 1.10 0.70-1.30 mg/dL Estimated GFR ( Cierra >60 >=60 mL/min/1.73m 2 Estimated GFR (Non- Marti >60 >=60 mL/min/1.73m 2 BUN Creatinine Ratio 17.3 Calcium 9.6 8.5-10.1 mg/dL Bilirubin Total 0.6 0.2-1.0 mg/dL Aspartate Amino Transferase 22 15-37 U/L Alanine Aminotransferase 30 16-63 U/L Alkaline Phosphatase 76 46-116 U/L Total Protein 6.2 6.4-8.2 g/dL Albumin Level 3.1 3.4-5.0 g/dL Globulin 3.1 Albumin Globulin Ratio 1.0 Performing Lab: see note - [facility] Blood Culture 1 Reviewed date:06/29/2024 01:11:24 PM Interpretation: Performing Lab: Notes/Report: [facility] , Blood Culture 1 See Below For Report Blood Culture 1 NG5D NO GROWTH AT 5 DAYS.^NO GROWTH AT 5 DAYS. Performing Lab: see note - [facility] LB Blood Culture 2 Reviewed date:06/26/2024 07:15:16 PM Interpretation: Performing Lab: Notes/Report: [facility] , Blood Culture 2 See Below For Report Blood Culture 2 NG3D NO GROWTH AT 36-48 HOURS. FINAL TO FOLLOW.^NO GROWTH AT 36-48 HOURS. FINAL TO FOLLOW. Blood Culture 2 BCID= NONE DETECTED Blood Culture 2 NG3D NO GROWTH AT 36-48 HOURS. FINAL TO FOLLOW.^NO GROWTH AT 36-48 HOURS. FINAL TO FOLLOW. Blood Culture 2 AEROBIC BOTTLE= GRAM POSITIVE RHODA Blood Culture 2 NG3D NO GROWTH AT 36-48 HOURS. FINAL TO FOLLOW.^NO GROWTH AT 36-48 HOURS. FINAL TO FOLLOW. Blood Culture 2 CALLED TO TERESA PENA LPN AT 0900 BY RICCO NFEF Blood Culture 2 NG3D NO GROWTH AT 36-48 HOURS. FINAL TO FOLLOW.^NO GROWTH AT 36-48 HOURS. FINAL TO FOLLOW. Blood Culture 2 Blood Culture 2 NG3D NO GROWTH AT 36-48 HOURS. FINAL TO FOLLOW.^NO GROWTH AT 36-48 HOURS. FINAL TO FOLLOW. Blood Culture 2 BOTTLE SENT TO [facility] FOR FURTHER WORKUP. Blood Culture 2 NG3D NO GROWTH AT 36-48 HOURS. FINAL TO FOLLOW.^NO GROWTH AT 36-48 HOURS. FINAL TO FOLLOW. Performing Lab: see note ML - [facility] LB SEE REPORT - Operations Trainer Id information not found for OBX-specific digital producer legend BLOOD GASES BTY Reviewed date:01/10/2024 08:22:34 PM Interpretation: Performing Lab: Notes/Report: [facility] , pH ABG 7.313 7.350-7.450 ABG PCO2 55.8 35.0-45.0 mmHg RESULTS CALLED TO MARJORIE BHARDWAJ D.O. PO2 ABG 90.3 80.0-100.0 mmHg HCO3 ABG 28.3 22.0-26.0 mmol/L Base Excess ABG 2.1 -2.0-2.0 mmol/L Oxygen Saturation ABG 96.1 Charles Test POSITIVE POSITIVE O2 Mode NONREBREATHER MASK Puncture Site RT RADIAL Performing Lab: see note ML - [facility] LB BNP Reviewed date:01/10/2024 08:22:34 PM Interpretation: Performing Lab: Notes/Report: [facility] , NT Pro B Type Natriuretic Pept 3007.0 <=1800.0 pg/mL RESULTS CALLED TO DR. BHARDWAJ @BY Sofia Niño at 1214 Performing Lab: see note - [facility] LB CBC AUTO DIFF Reviewed date:01/10/2024 08:22:34 PM Interpretation: Performing Lab: Notes/Report: [facility] , White Blood Count 10.6 4.0-11.0 10 3/uL Red Blood Count 5.07 4.70-6.10 10 6/uL Hemoglobin 15.0 14.0-18.0 g/dL Hematocrit 48.5 42.0-54.0 % Mean Corpuscular Volume 95.7 80.0-94.0 fL Mean Corpuscular Hemoglobin 29.6 25.9-34.0 pg Mean Corpuscular HGB Conc 30.9 29.9-35.2 g/dL Red Cell Distribution Width 16.1 11.0-15.0 % Platelet Count 214 150-450 10 3/uL Mean Platelet Volume 10.5 9.5-13.5 fL Neutrophils Percent Auto 84.2 43.0-75.0 % Lymphocytes Percent Auto 5.1 20.5-60.0 % Monocytes Percent Auto 7.4 1.7-12.0 % Eosinophils Percent Auto 2.5 0.9-7.0 % Basophils Percent Auto 0.5 0.2-2.0 % Immature Granulocytes Pct Auto 0.3 0.0-0.5 % Neutrophils Absolute Auto 9.0 1.4-6.5 10 3/uL Lymphocytes Absolute Auto 0.5 1.2-3.8 10 3/uL Monocytes Absolute Auto 0.8 0.3-0.8 10 3/uL Eosinophils Absolute Auto 0.3 0.0-0.7 10 3/uL Basophils Absolute Auto 0.1 0.0-0.1 10 3/uL Immature Granulocytes Abs Auto 0.03 0.00-0.03 10 3/uL Performing Lab: see note ML - [facility] LB LACTATE or LACTIC ACID Reviewed date:01/10/2024 08:22:34 PM Interpretation: Performing Lab: Notes/Report: [facility] , Lactate/Lactic Acid 1.7 0.4-2.0 mmol/L Performing Lab: see note ML - [facility] LB PROF 14(COMP METB) Reviewed date:01/10/2024 08:22:34 PM Interpretation: Performing Lab: Notes/Report: [facility] , Sodium 143 136-145 mmol/L Potassium 5.1 3.5-5.1 mmol/L Chloride 105 98-107 mmol/L Carbon Dioxide 30.8 21.0-32.0 mmol/L Anion Gap 12.3 Glucose 126 74-106 mg/dL Blood Urea Nitrogen 31.0 7.0-18.0 mg/dL Creatinine 1.25 0.70-1.30 mg/dL Estimated GFR ( Cierra >60 >=60 mL/min/1.73m 2 Estimated GFR (Non- Marti 55 >=60 mL/min/1.73m 2 BUN Creatinine Ratio 24.8 Calcium 9.2 8.5-10.1 mg/dL Bilirubin Total 1.4 0.2-1.0 mg/dL Aspartate Amino Transferase 17 15-37 U/L Alanine Aminotransferase 26 16-63 U/L Alkaline Phosphatase 62 46-116 U/L Total Protein 7.1 6.4-8.2 g/dL Albumin Level 3.7 3.4-5.0 g/dL Globulin 3.4 Albumin Globulin Ratio 1.1 Performing Lab: see note ML - [facility] LB Prothrombin Time INR Reviewed date:01/10/2024 08:22:34 PM Interpretation: Performing Lab: Notes/Report: [facility] , Prothrombin Time 14.2 9.0-11.6 sec INR 1.38 DESIRED INR: 2.0-3.0 CONDITIONS NOT LISTED BELOW 2.5-3.5 FOR PROSTHETIC HEART VALVE REPLACEMENT 2.5-3.5 RECURRENT THROMBOSIS Performing Lab: see note ML - [facility] LB Troponin I High Sensitivity Reviewed date:01/10/2024 08:22:34 PM Interpretation: Performing Lab: Notes/Report: [facility] , Troponin I High Sensitivity 18.6 4.0-76.1 pg/mL CUT-OFF POINTS HAVE BEEN ESTABLISHED BASED ON THE FOURTH UNIVERSAL DEFINITION OF MYOCARDIAL INFARCTION. THE UPPER REFERENCE LIMIT (URL) OF TROPONIN, DEFINED THE 99TH PERCENTILE OF cTnI DISTRIBUTION IN A REFERENCE POPULATION, HAS BEEN CONFIRMED THE DECISION THRESHOLD FOR [place] DIAGNOSIS. 99TH PERCENTILE = 76.2 PG/ML NOTE: HIGH-SENSITIVITY TROPONIN ASSAY IS NOT INTENDED TO BE USED IN ISOLATION BUT SHOULD BE INTERPRETED IN CONJUNCTION WITH OTHER DIAGNOSTIC AND CLINICAL INFORMATION. Performing Lab: see note ML - [facility] LB SARS-CoV-2 Ag* Reviewed date:01/10/2024 08:22:34 PM Interpretation: Performing Lab: Notes/Report: [facility] , SARS-CoV-2 Ag NEGATIVE NEGATIVE This test has not been FDA cleared or approved, but has been authorized by the FDA under an Emergency Use Authorization (EUA) for use by authorized laboratories certified under CLIA that meet the requirements to perform moderate or high complexity testing. This test has been authorized only for the detection of proteins from SARS-CoV-2, not for any other viruses or pathogens. The emergency use of this test is authorized for the duration of the declaration that circumstances exist justifying the authorization of emergency use of in vitro diagnostic tests for detection and/or diagnosis of Covid-19 under section 564(b)(1) of the Act, 21 U.S.C. 360bbb-3(b)(1), unless the declaration is terminated or authorization is revoked sooner. Performing Lab: see note ML - [facility] LB Troponin I High Sensitivity Reviewed date:01/10/2024 08:22:34 PM Interpretation: Performing Lab: Notes/Report: [facility] , Troponin I High Sensitivity 16.6 4.0-76.1 pg/mL CUT-OFF POINTS HAVE BEEN ESTABLISHED BASED ON THE FOURTH UNIVERSAL DEFINITION OF MYOCARDIAL INFARCTION. THE UPPER REFERENCE LIMIT (URL) OF TROPONIN, DEFINED THE 99TH PERCENTILE OF cTnI DISTRIBUTION IN A REFERENCE POPULATION, HAS BEEN CONFIRMED THE DECISION THRESHOLD FOR [place] DIAGNOSIS. 99TH PERCENTILE = 76.2 PG/ML NOTE: HIGH-SENSITIVITY TROPONIN ASSAY IS NOT INTENDED TO BE USED IN ISOLATION BUT SHOULD BE INTERPRETED IN CONJUNCTION WITH OTHER DIAGNOSTIC AND CLINICAL INFORMATION. Performing Lab: see note ML - [facility] LB Troponin I High Sensitivity Reviewed date:01/12/2024 04:10:29 PM Interpretation: Performing Lab: Notes/Report: [facility] , Troponin I High Sensitivity 14.4 4.0-76.1 pg/mL CUT-OFF POINTS HAVE BEEN ESTABLISHED BASED ON THE FOURTH UNIVERSAL DEFINITION OF MYOCARDIAL INFARCTION. THE UPPER REFERENCE LIMIT (URL) OF TROPONIN, DEFINED THE 99TH PERCENTILE OF cTnI DISTRIBUTION IN A REFERENCE POPULATION, HAS BEEN CONFIRMED THE DECISION THRESHOLD FOR [place] DIAGNOSIS. 99TH PERCENTILE = 76.2 PG/ML NOTE: HIGH-SENSITIVITY TROPONIN ASSAY IS NOT INTENDED TO BE USED IN ISOLATION BUT SHOULD BE INTERPRETED IN CONJUNCTION WITH OTHER DIAGNOSTIC AND CLINICAL INFORMATION. Performing Lab: see note ML - [facility] LB Venous Blood Gas Reviewed date:01/12/2024 04:10:30 PM Interpretation: Performing Lab: Notes/Report: [facility] , pH VBG 7.366 7.330-7.430 PCO2 VBG 54.0 40.0-52.0 mmHg Performing Lab: see note ML - [facility] LB PROF CHEM 8 (BAS METB) Reviewed date:01/12/2024 04:10:29 PM Interpretation: Performing Lab: Notes/Report: [facility] , Sodium 143 136-145 mmol/L Potassium 4.3 3.5-5.1 mmol/L Chloride 103 98-107 mmol/L Carbon Dioxide 32.1 21.0-32.0 mmol/L Anion Gap 12.2 Glucose 307 74-106 mg/dL Blood Urea Nitrogen 44.0 7.0-18.0 mg/dL Creatinine 1.57 0.70-1.30 mg/dL Estimated GFR ( Cierra 52 >=60 mL/min/1.73m 2 Estimated GFR (Non- Marti 43 >=60 mL/min/1.73m 2 BUN Creatinine Ratio 28.0 Calcium 9.3 8.5-10.1 mg/dL Performing Lab: see note ML - [facility] LB BNP Reviewed date:01/15/2024 06:43:26 PM Interpretation: Performing Lab: Notes/Report: [facility] , NT Pro B Type Natriuretic Pept 2342.0 <=1800.0 pg/mL RESULTS CALLED TO CATHERINE LEBRON RN @BY Allyssa Gaming at 0535 Performing Lab: see note ML - [facility] LB PROF 14(COMP METB) Reviewed date:01/15/2024 06:43:26 PM Interpretation: Performing Lab: Notes/Report: [facility] , Sodium 149 136-145 mmol/L Potassium 2.7 3.5-5.1 mmol/L RESULTS CALLED TO CATHERINE LEBRON RN @BY Allyssa Gaming at 0535 Chloride 103 98-107 mmol/L Carbon Dioxide 40.8 21.0-32.0 mmol/L Anion Gap 7.9 Glucose 114 74-106 mg/dL Blood Urea Nitrogen 50.0 7.0-18.0 mg/dL Creatinine 1.43 0.70-1.30 mg/dL Estimated GFR ( Cierra 58 >=60 mL/min/1.73m 2 Estimated GFR (Non- Marti 47 >=60 mL/min/1.73m 2 BUN Creatinine Ratio 35.0 Calcium 9.4 8.5-10.1 mg/dL Bilirubin Total 0.9 0.2-1.0 mg/dL Aspartate Amino Transferase 13 15-37 U/L Alanine Aminotransferase 27 16-63 U/L Alkaline Phosphatase 46 46-116 U/L Total Protein 5.7 6.4-8.2 g/dL Albumin Level 2.9 3.4-5.0 g/dL Globulin 2.8 Albumin Globulin Ratio 1.0 Performing Lab: see note ML - [facility] LB BNP Reviewed date:01/16/2024 07:45:52 PM Interpretation: Performing Lab: Notes/Report: [facility] , NT Pro B Type Natriuretic Pept 2700.0 <=1800.0 pg/mL RESULTS CALLED TO ANNALISE FIGUEROA RN @BY [employer]a Gaming at 0628 Performing Lab: see note ML - [facility] LB PROF 14(COMP METB) Reviewed date:01/16/2024 07:45:52 PM Interpretation: Performing Lab: Notes/Report: [facility] , Sodium 151 136-145 mmol/L Potassium 3.1 3.5-5.1 mmol/L Chloride 102 98-107 mmol/L Carbon Dioxide 47.1 21.0-32.0 mmol/L Anion Gap 5.0 Glucose 105 74-106 mg/dL Blood Urea Nitrogen 53.0 7.0-18.0 mg/dL Creatinine 1.39 0.70-1.30 mg/dL Estimated GFR ( Cierra 59 >=60 mL/min/1.73m 2 Estimated GFR (Non- Marti 49 >=60 mL/min/1.73m 2 BUN Creatinine Ratio 38.1 Calcium 10.2 8.5-10.1 mg/dL Bilirubin Total 1.2 0.2-1.0 mg/dL Aspartate Amino Transferase 15 15-37 U/L Alanine Aminotransferase 35 16-63 U/L Alkaline Phosphatase 54 46-116 U/L Total Protein 6.9 6.4-8.2 g/dL Albumin Level 3.5 3.4-5.0 g/dL Globulin 3.4 Albumin Globulin Ratio 1.0 Performing Lab: see note ML - [facility] LB XR chest 2V Reviewed date:03/05/2024 03:46:32 PM Interpretation: Performing Lab: Notes/Report: Source Facility: [facility]-[address] [place] [address] [place] [address] XRay Report Signed Patient: KHADAR RAMOS MR#: [id number] : 1940 Acct:[id number] Age/Sex: 84 / M ADM Date: 03/04/24 Loc: RAD Attending Dr: Aaron Perez M.D. Ordering Physician: Aaron Perez M.D. Date of Service: 03/04/24 Procedure(s): XR chest 2V Accession Number(s): [id number] cc: Aaron Perez M.D.; Josy Sahu M.D. [place] [id number] Patient Name: KHADAR RAMOS MRN: [id number] date: 1940 Sex: M Assigned Patient Location: [facility] Current Patient Location: Accession/Order Number: [id number] Exam Date: 03/04/2024 10:45 Report Date: 03/05/2024 04:58 At the request of: AARON PEREZ Procedure: XR chest 2V EXAMINATION: XR chest 2V HISTORY: Chronic Atrial Fibrillation ; cardiac pacemaker placement one day prior COMPARISON: XR chest 01/13/2024 FINDINGS: LUNGS: Mild opacities and stranding throughout the lungs. VASCULATURE: No increased pulmonary vasculature. PLEURA: No pneumothorax, effusion, or pleural thickening. CARDIAC: Heart size bordering on cardiomegaly. Cardiac pacer/AICD. MEDIASTINUM: Hiatal hernia. No abnormal widening of the upper mediastinum. BONES: No fracture or visible bone lesion. OTHER: Negative. XR/XR chest 2V IMPRESSION: 1. Interval cardiac pacer/AICD placement. 2. Mild diffuse atelectasis versus infiltrates within the lungs. Electronically authenticated by: SHANITA TINOCO Date: 03/05/2024 04:58 Dictated By: Shanita Tinoco M.D. Signed By: 03/05/24 0501 DD/ 0458 TD/TT: Machine Presser: [place] [address] XRay Report Signed Patient: KHADAR RAMOS MR#: [id number] : 1940 Acct:[id number] Age/Sex: 84 / M ADM Date: 03/04/24 Loc: RAD Attending Dr: Aaron Perez M.D. Ordering Physician: Aaron Perez M.D. Date of Service: 03/04/24 Procedure(s): XR mor[address] st 2V Accession Number(s): [id number] cc: Aaron Perez M.D. ; Josy Sahu M.D. [place] [id number] Patient Name: KHADAR RAMOS MRN: [id number] date: 1940 Sex: M Assigned Patient Location: RAD Current Patient Location: Accession/Order Number: [id number] Exam Date: 10:45 Report Date: 03/05/2024 04:58 At the request of: AARON PEREZ Procedure: XR chest 2V EXAMINATION: XR ches t 2V HISTORY: Chronic Atrial Fibrillation ; cardiac pacemaker placement one day prior COMPARISON: XR chest 01/13/2024 FINDINGS: LUNGS: Mild opacitie s and stranding throughout the lungs. VASCULATURE: No increased pulmonary vasculature. PLEURA: No pneumothorax, effusion, or pleural thickening. CARDIAC: Heart size bordering on cardiomegaly. Cardiac pacer/AICD. MEDIASTINUM: Hiatal hernia. No abnormal widening of the upper mediastinum. BONES: No fracture o r visible bone lesion. OTHER: Negative. XR/XR chest 2V IMPRESSION: 1. Interval cardiac pacer/AICD placement. 2. Mild diffuse atelectasis versus infiltrates within the lungs. Electronically authenticated by: SHANITA TINOCO Date: 03/05/2024 04:58 Dictated By: Shanita Tinoco M.D. Signed By: 03/05/24 0501 DD/ 0458 TD/TT: Machine Presser: INFLUENZA A AND B AG Reviewed date:03/31/2024 08:30:21 PM Interpretation: Performing Lab: Notes/Report: [facility] , Influenza Virus A Antigen Negative Negative for Flu A protein antigen. Infection due to Flu A cannot be ruled out. Flu A antigen in the sample may be below the detection limit of the test. Influenza Virus B Antigen Negative Negative for Flu B protein antigen. Infection due to Flu B cannot be ruled out. Flu B antigen in the sample may be below the detection limit of the test. Performing Lab: see note ML - [facility] LB Troponin I High Sensitivity Reviewed date:03/31/2024 08:30:21 PM Interpretation: Performing Lab: Notes/Report: [facility] , Troponin I High Sensitivity 27.2 4.0-76.1 pg/mL CUT-OFF POINTS HAVE BEEN ESTABLISHED BASED ON THE FOURTH UNIVERSAL DEFINITION OF MYOCARDIAL INFARCTION. THE UPPER REFERENCE LIMIT (URL) OF TROPONIN, DEFINED THE 99TH PERCENTILE OF cTnI DISTRIBUTION IN A REFERENCE POPULATION, HAS BEEN CONFIRMED THE DECISION THRESHOLD FOR [place] DIAGNOSIS. 99TH PERCENTILE = 76.2 PG/ML NOTE: HIGH-SENSITIVITY TROPONIN ASSAY IS NOT INTENDED TO BE USED IN ISOLATION BUT SHOULD BE INTERPRETED IN CONJUNCTION WITH OTHER DIAGNOSTIC AND CLINICAL INFORMATION. Performing Lab: see note ML - [facility] LB SARS-CoV-2 Ag* Reviewed date:03/31/2024 08:30:21 PM Interpretation: Performing Lab: Notes/Report: [facility] , SARS-CoV-2 Ag NEGATIVE NEGATIVE This test has not been FDA cleared or approved, but has been authorized by the FDA under an Emergency Use Authorization (EUA) for use by authorized laboratories certified under CLIA that meet the requirements to perform moderate or high complexity testing. This test has been authorized only for the detection of proteins from SARS-CoV-2, not for any other viruses or pathogens. The emergency use of this test is authorized for the duration of the declaration that circumstances exist justifying the authorization of emergency use of in vitro diagnostic tests for detection and/or diagnosis of Covid-19 under section 564(b)(1) of the Act, 21 U.S.C. 360bbb-3(b)(1), unless the declaration is terminated or authorization is revoked sooner. Performing Lab: see note ML - [facility] LB ECG 12 lead Reviewed date:04/07/2024 09:06:34 PM Interpretation: Performing Lab: Notes/Report: Source Facility: [facility]-[address] [place] [address] [place] [address] Electrocardiograph Report Signed Patient: KHADAR RAMOS MR#: [id number] : 1940 Acct:[id number] Age/Sex: 84 / M ADM Date: 03/31/24 Loc: MS 214-[address]: Josy Sahu M.D. Ordering Physician: Ilana Callejas M.D. 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 Signed By: 04/07/24 1825 DD/ 1025 TD/TT: Machine Presser: [place] [address] Electrocardiograph Report Signed Patient: KHADAR RAMOS MR#: [id number] : 1940 Acct:[id number] Age/Sex: 84 / M ADM Date: 03/31/24 Loc: MS 214-[address]: Bhupendra Sahu M.D. Ordering Physician: Ilana Callejas M.D. 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 Signed By: 04/07/24 1825 DD/ 1025 TD/TT: Machine Presser: Troponin I High Sensitivity Reviewed date:03/31/2024 08:30:21 PM Interpretation: Performing Lab: Notes/Report: [facility] , Troponin I High Sensitivity 25.0 4.0-76.1 pg/mL CUT-OFF POINTS HAVE BEEN ESTABLISHED BASED ON THE FOURTH UNIVERSAL DEFINITION OF MYOCARDIAL INFARCTION. THE UPPER REFERENCE LIMIT (URL) OF TROPONIN, DEFINED THE 99TH PERCENTILE OF cTnI DISTRIBUTION IN A REFERENCE POPULATION, HAS BEEN CONFIRMED THE DECISION THRESHOLD FOR KS DIAGNOSIS. 99TH PERCENTILE = 76.2 PG/ML NOTE: HIGH-SENSITIVITY TROPONIN ASSAY IS NOT INTENDED TO BE USED IN ISOLATION BUT SHOULD BE INTERPRETED IN CONJUNCTION WITH OTHER DIAGNOSTIC AND CLINICAL INFORMATION. Performing Lab: see note ML - [facility] LB LACTATE or LACTIC ACID Reviewed date:03/31/2024 08:30:21 PM Interpretation: Performing Lab: Notes/Report: [facility] , Lactate/Lactic Acid 1.2 0.4-2.0 mmol/L Performing Lab: see note ML - [facility] LB BNP Reviewed date:04/01/2024 05:02:44 PM Interpretation: Performing Lab: Notes/Report: Comment use am blood? [facility] , NT Pro B Type Natriuretic Pept 4052.0 <=1800.0 pg/mL RESULTS CALLED TO CLIFTON BECKFORD RN @BY Allyssa Gaming at 0653 Performing Lab: see note ML - [facility] LB Troponin I High Sensitivity Reviewed date:04/01/2024 05:02:44 PM Interpretation: Performing Lab: Notes/Report: Comment use am blood [facility] , Troponin I High Sensitivity 16.6 4.0-76.1 pg/mL CUT-OFF POINTS HAVE BEEN ESTABLISHED BASED ON THE FOURTH UNIVERSAL DEFINITION OF MYOCARDIAL INFARCTION. THE UPPER REFERENCE LIMIT (URL) OF TROPONIN, DEFINED THE 99TH PERCENTILE OF cTnI DISTRIBUTION IN A REFERENCE POPULATION, HAS BEEN CONFIRMED THE DECISION THRESHOLD FOR [place] DIAGNOSIS. 99TH PERCENTILE = 76.2 PG/ML NOTE: HIGH-SENSITIVITY TROPONIN ASSAY IS NOT INTENDED TO BE USED IN ISOLATION BUT SHOULD BE INTERPRETED IN CONJUNCTION WITH OTHER DIAGNOSTIC AND CLINICAL INFORMATION. Performing Lab: see note - [facility] LB CBC AUTO DIFF Reviewed date:04/05/2024 04:42:54 PM Interpretation: Performing Lab: Notes/Report: [facility] , White Blood Count 15.6 4.0-11.0 10 3/uL Red Blood Count 4.52 4.70-6.10 10 6/uL Hemoglobin 13.2 14.0-18.0 g/dL Hematocrit 43.4 42.0-54.0 % Mean Corpuscular Volume 96.0 80.0-94.0 fL Mean Corpuscular Hemoglobin 29.2 25.9-34.0 pg Mean Corpuscular HGB Conc 30.4 29.9-35.2 g/dL Red Cell Distribution Width 16.2 11.0-15.0 % Platelet Count 151 150-450 10 3/uL Mean Platelet Volume 11.1 9.5-13.5 fL Neutrophils Percent Auto 94.4 43.0-75.0 % Lymphocytes Percent Auto 1.2 20.5-60.0 % Monocytes Percent Auto 3.3 1.7-12.0 % Eosinophils Percent Auto 0.0 0.9-7.0 % Basophils Percent Auto 0.1 0.2-2.0 % Immature Granulocytes Pct Auto 1.0 0.0-0.5 % Neutrophils Absolute Auto 14.8 1.4-6.5 10 3/uL Lymphocytes Absolute Auto 0.2 1.2-3.8 10 3/uL Monocytes Absolute Auto 0.5 0.3-0.8 10 3/uL Eosinophils Absolute Auto 0.0 0.0-0.7 10 3/uL Basophils Absolute Auto 0.0 0.0-0.1 10 3/uL Immature Granulocytes Abs Auto 0.15 0.00-0.03 10 3/uL Performing Lab: see note ML - [facility] LB XR chest 1V Reviewed date:04/05/2024 04:42:54 PM Interpretation: Performing Lab: Notes/Report: Source Facility: [place] [address] [place] [address] XRay Report Signed Patient: KHADAR RAMOS MR#: [id number] : 1940 Acct:[id number] Age/Sex: 84 / M ADM Date: 03/31/24 Loc: MS 214-[address]: Josy Sahu M.D. Ordering Physician: Josy Sahu M.D. Date of Service: 04/04/24 Procedure(s): XR chest 1V Accession Number(s): [id number] cc: Josy Sahu M.D. [facility] [place] [address] Patient Name: KHADAR RAMOS MRN: [id number] date: 1940 Sex: M Assigned Patient Location: [place] Current Patient Location: [place] Accession/Order Number: [id number] Exam Date: 04/04/2024 06:49 Report Date: 04/04/2024 07:04 At the request of: JOSY SAHU Procedure: XR chest 1V EXAM: XR chest 1V HISTORY: follow up pna COMPARISON: 03/31/2024 TECHNIQUE: AP portable FINDINGS: LUNGS: Moderate right basilar infiltrate obscuring the hemidiaphragm and heart border. The left lung is clear VASCULATURE: No increased pulmonary vasculature. PLEURA: No pneumothorax. Right pleural effusion CARDIAC: Mild cardiomegaly MEDIASTINUM: No visible mass or adenopathy. Left pacemaker/AICD BONES: No fracture or visible bone lesion. OTHER: Negative. XR/XR chest 1V IMPRESSION: Resolution of right basilar infiltrate/pleural effusion Electronically authenticated by: ALESHIA RUFF Date: 04/04/2024 07:04 Dictated By: Aleshia Ruff M.D. Signed By: 04/04/24706 DD/ 3 TD/TT: Machine Presser: [place] [address] XRay Report Signed Patient: KHADAR RAMOS MR#: [id number] : 1940 Acct:[id number] Age/Sex: 84 / M ADM Date: 03/31/24 Loc: MS 214-[address]: Bhupendra Sahu M.D. Ordering Physician: Josy Sahu M.D. Date of Service: 04/04/24 Procedure(s): XR morgan st 1V Accession Number(s): [id number] cc: Josy Sahu M.D. [place] [address] Patient Name: KHADAR RAMOS MRN: [id number] date: 1940 Sex: M Assigned Patient Location: [place] Current Patient Location: [place] Accession/Order Number: [id number] Exam Date: 04/04/2024 06:49 Report Date: 04/04/2024 07:04 At the request of: JOSY SAHU Procedure: XR chest 1V EXAM: XR chest 1V HISTORY: follow up pna COMPARISON: 03/31/2024 TECHNIQUE: AP portable FINDINGS: LUNGS: Moderate righ t basilar infiltrate obscuring the hemidiaphragm and heart border. The left evangelina g is clear VASCULATURE: No increased pulmonary vasculature. PLEURA: No pneumothorax. Right pleural effusion CARDIAC: Mild cardiomegaly MEDIASTINUM: No visible mass or adenopathy. Left pacemaker/AICD BONES: No fracture o r visible bone lesion. OTHER: Negative. XR/XR chest 1V IMPRESSION: Resolution of right basilar infiltrate/pleural effusion Electronically authenticated by: ALESHIA RUFF Date: 04/04/2024 07:04 Dictated By: Aleshia Ruff M.D. Signed By: 04/04/24 0707 DD/ 0704 TD/TT: Machine Presser: CBC AUTO DIFF Reviewed date:04/05/2024 04:42:54 PM Interpretation: Performing Lab: Notes/Report: [facility] , White Blood Count 13.4 4.0-11.0 10 3/uL Red Blood Count 4.38 4.70-6.10 10 6/uL Hemoglobin 12.9 14.0-18.0 g/dL Hematocrit 41.6 42.0-54.0 % Mean Corpuscular Volume 95.0 80.0-94.0 fL Mean Corpuscular Hemoglobin 29.5 25.9-34.0 pg Mean Corpuscular HGB Conc 31.0 29.9-35.2 g/dL Red Cell Distribution Width 15.9 11.0-15.0 % Platelet Count 119 150-450 10 3/uL Mean Platelet Volume 11.2 9.5-13.5 fL Neutrophils Percent Auto 93.3 43.0-75.0 % Lymphocytes Percent Auto 1.2 20.5-60.0 % Monocytes Percent Auto 4.7 1.7-12.0 % Eosinophils Percent Auto 0.0 0.9-7.0 % Basophils Percent Auto 0.1 0.2-2.0 % Immature Granulocytes Pct Auto 0.7 0.0-0.5 % Neutrophils Absolute Auto 12.5 1.4-6.5 10 3/uL Lymphocytes Absolute Auto 0.2 1.2-3.8 10 3/uL Monocytes Absolute Auto 0.6 0.3-0.8 10 3/uL Eosinophils Absolute Auto 0.0 0.0-0.7 10 3/uL Basophils Absolute Auto 0.0 0.0-0.1 10 3/uL Immature Granulocytes Abs Auto 0.09 0.00-0.03 10 3/uL Performing Lab: see note ML - [facility] LB Lower Respiratory Culture Reviewed date:04/09/2024 01:15:25 PM Interpretation: Performing Lab: Notes/Report: [facility] , Lower Respiratory Culture See Below For Report Lower Respiratory Culture WILL FOLLOW O:CANALB Isolated Lower Respiratory Culture Organism: Valarie albicans : Lower Respiratory Culture WILL FOLLOW O:CANALB Isolated Lower Respiratory Culture *ABNORMAL* Lower Respiratory Culture WILL FOLLOW O:CANALB Isolated Lower Respiratory Culture Light growth Lower Respiratory Culture WILL FOLLOW O:CANALB Isolated Lower Respiratory Culture Lower Respiratory Culture WILL FOLLOW O:CANALB Isolated Lower Respiratory Culture Growth observed. Further testing to rule out possible pathogen(s) Lower Respiratory Culture WILL FOLLOW O:CANALB Isolated Lower Respiratory Culture is in progress. Lower Respiratory Culture WILL FOLLOW O:CANALB Isolated Lower Respiratory Culture Valarie albicans Lower Respiratory Culture WILL FOLLOW O:CANALB Isolated Lower Respiratory Culture Organism: Valarie albicans : Lower Respiratory Culture WILL FOLLOW O:CANALB Isolated Lower Respiratory Culture *ABNORMAL* Lower Respiratory Culture WILL FOLLOW O:CANALB Isolated Lower Respiratory Culture Light growth Lower Respiratory Culture WILL FOLLOW O:CANALB Isolated Lower Respiratory Culture Lower Respiratory Culture WILL FOLLOW O:CANALB Isolated Lower Respiratory Culture Routine respiratory isabelle Lower Respiratory Culture WILL FOLLOW O:CANALB Isolated Lower Respiratory Culture Light growth Lower Respiratory Culture WILL FOLLOW O:CANALB Isolated Lower Respiratory Culture See Below For Report Lower Respiratory Culture WILL FOLLOW O:CANALB Isolated Lower Respiratory Culture Performed at: - [facility] [place] Lower Respiratory Culture WILL FOLLOW O:CANALB Isolated Lower Respiratory Culture [address] [place], [place] [id number] Lower Respiratory Culture WILL FOLLOW O:CANALB Isolated Lower Respiratory Culture Glue Sprayer: Tim Stack PhD, Phone: [phone] Lower Respiratory Culture WILL FOLLOW O:CANALB Isolated Performing Lab: see note LC - [facility] LB SEE REPORT - Operations Trainer Id information not found for OBX-specific digital producer legend BNP Reviewed date:04/06/2024 04:32:04 PM Interpretation: Performing Lab: Notes/Report: [facility] , NT Pro B Type Natriuretic Pept 2378.0 <=1800.0 pg/mL RESULTS CALLED TO DAVID SCHULTZ RN @BY Sofia Niño at [phone] Performing Lab: see note - [facility] LB CBC AUTO DIFF Reviewed date:04/06/2024 04:32:04 PM Interpretation: Performing Lab: Notes/Report: [facility] , White Blood Count 16.4 4.0-11.0 10 3/uL Red Blood Count 5.04 4.70-6.10 10 6/uL Hemoglobin 14.5 14.0-18.0 g/dL Hematocrit 48.0 42.0-54.0 % Mean Corpuscular Volume 95.2 80.0-94.0 fL Mean Corpuscular Hemoglobin 28.8 25.9-34.0 pg Mean Corpuscular HGB Conc 30.2 29.9-35.2 g/dL Red Cell Distribution Width 15.9 11.0-15.0 % Platelet Count 131 150-450 10 3/uL Mean Platelet Volume 11.1 9.5-13.5 fL Neutrophils Percent Auto 90.7 43.0-75.0 % Lymphocytes Percent Auto 2.4 20.5-60.0 % Monocytes Percent Auto 6.0 1.7-12.0 % Eosinophils Percent Auto 0.3 0.9-7.0 % Basophils Percent Auto 0.1 0.2-2.0 % Immature Granulocytes Pct Auto 0.5 0.0-0.5 % Neutrophils Absolute Auto 14.9 1.4-6.5 10 3/uL Lymphocytes Absolute Auto 0.4 1.2-3.8 10 3/uL Monocytes Absolute Auto 1.0 0.3-0.8 10 3/uL Eosinophils Absolute Auto 0.1 0.0-0.7 10 3/uL Basophils Absolute Auto 0.0 0.0-0.1 10 3/uL Immature Granulocytes Abs Auto 0.08 0.00-0.03 10 3/uL Performing Lab: see note - [facility] LB PROF CHEM 8 (BAS METB) Reviewed date:04/06/2024 04:32:04 PM Interpretation: Performing Lab: Notes/Report: [facility] , Sodium 149 136-145 mmol/L Potassium 3.9 3.5-5.1 mmol/L Chloride 102 98-107 mmol/L Carbon Dioxide 45.7 21.0-32.0 mmol/L Anion Gap 5.2 Glucose 52 74-106 mg/dL Blood Urea Nitrogen 63.0 7.0-18.0 mg/dL Creatinine 1.54 0.70-1.30 mg/dL Estimated GFR ( Cierra 53 >=60 mL/min/1.73m 2 Estimated GFR (Non- Marti 43 >=60 mL/min/1.73m 2 BUN Creatinine Ratio 40.9 Calcium 9.9 8.5-10.1 mg/dL Performing Lab: see note - [facility] LB CBC AUTO DIFF Reviewed date:05/12/2024 02:12:42 PM Interpretation: Performing Lab: Notes/Report: [facility] , White Blood Count 7.5 4.0-11.0 10 3/uL Red Blood Count 4.72 4.70-6.10 10 6/uL Hemoglobin 13.9 14.0-18.0 g/dL Hematocrit 43.6 42.0-54.0 % Mean Corpuscular Volume 92.4 80.0-94.0 fL Mean Corpuscular Hemoglobin 29.4 25.9-34.0 pg Mean Corpuscular HGB Conc 31.9 29.9-35.2 g/dL Red Cell Distribution Width 16.4 11.0-15.0 % Platelet Count 253 150-450 10 3/uL Mean Platelet Volume 10.4 9.5-13.5 fL Neutrophils Percent Auto 78.9 43.0-75.0 % Lymphocytes Percent Auto 5.5 20.5-60.0 % Monocytes Percent Auto 10.8 1.7-12.0 % Eosinophils Percent Auto 4.0 0.9-7.0 % Basophils Percent Auto 0.4 0.2-2.0 % Immature Granulocytes Pct Auto 0.4 0.0-0.5 % Neutrophils Absolute Auto 5.9 1.4-6.5 10 3/uL Lymphocytes Absolute Auto 0.4 1.2-3.8 10 3/uL Monocytes Absolute Auto 0.8 0.3-0.8 10 3/uL Eosinophils Absolute Auto 0.3 0.0-0.7 10 3/uL Basophils Absolute Auto 0.0 0.0-0.1 10 3/uL Immature Granulocytes Abs Auto 0.03 0.00-0.03 10 3/uL Performing Lab: see note - [facility] LB PROF CHEM 8 (BAS METB) Reviewed date:04/02/2024 09:03:29 PM Interpretation: Performing Lab: Notes/Report: [facility] , Sodium 146 136-145 mmol/L Potassium 3.7 3.5-5.1 mmol/L Chloride 105 98-107 mmol/L Carbon Dioxide 37.7 21.0-32.0 mmol/L Anion Gap 7.0 Glucose 172 74-106 mg/dL Blood Urea Nitrogen 45.0 7.0-18.0 mg/dL Creatinine 1.29 0.70-1.30 mg/dL Estimated GFR ( Cierra >60 >=60 mL/min/1.73m 2 Estimated GFR (Non- Marti 53 >=60 mL/min/1.73m 2 BUN Creatinine Ratio 34.9 Calcium 9.3 8.5-10.1 mg/dL Performing Lab: see note - [facility] LB CBC AUTO DIFF Reviewed date:04/02/2024 09:03:29 PM Interpretation: Performing Lab: Notes/Report: [facility] , White Blood Count 16.3 4.0-11.0 10 3/uL Red Blood Count 4.76 4.70-6.10 10 6/uL Hemoglobin 13.8 14.0-18.0 g/dL Hematocrit 46.0 42.0-54.0 % Mean Corpuscular Volume 96.6 80.0-94.0 fL Mean Corpuscular Hemoglobin 29.0 25.9-34.0 pg Mean Corpuscular HGB Conc 30.0 29.9-35.2 g/dL Red Cell Distribution Width 16.3 11.0-15.0 % Platelet Count 171 150-450 10 3/uL Mean Platelet Volume 10.6 9.5-13.5 fL Neutrophils Percent Auto 96.0 43.0-75.0 % Lymphocytes Percent Auto 1.2 20.5-60.0 % Monocytes Percent Auto 2.1 1.7-12.0 % Eosinophils Percent Auto 0.0 0.9-7.0 % Basophils Percent Auto 0.1 0.2-2.0 % Immature Granulocytes Pct Auto 0.6 0.0-0.5 % Neutrophils Absolute Auto 15.7 1.4-6.5 10 3/uL Lymphocytes Absolute Auto 0.2 1.2-3.8 10 3/uL Monocytes Absolute Auto 0.3 0.3-0.8 10 3/uL Eosinophils Absolute Auto 0.0 0.0-0.7 10 3/uL Basophils Absolute Auto 0.0 0.0-0.1 10 3/uL Immature Granulocytes Abs Auto 0.10 0.00-0.03 10 3/uL Performing Lab: see note ML - [facility] LB BNP Reviewed date:04/02/2024 09:03:29 PM Interpretation: Performing Lab: Notes/Report: [facility] , NT Pro B Type Natriuretic Pept 5161.0 <=1800.0 pg/mL RESULTS CALLED TO BRENNON GANDHI RN ON MEDSURG BY Catherine Shepard at 0702 Performing Lab: see note ML - [facility] LB BLOOD GASES BTY Reviewed date:01/12/2024 04:10:29 PM Interpretation: Performing Lab: Notes/Report: [facility] , pH ABG 7.322 7.350-7.450 ABG PCO2 64.1 35.0-45.0 mmHg RESULTS CALLED TO SACHI THOMAS RN PO2 ABG 72.4 80.0-100.0 mmHg HCO3 ABG 33.1 22.0-26.0 mmol/L Base Excess ABG 7.1 -2.0-2.0 mmol/L Oxygen Saturation ABG 92.7 Charles Test POSITIVE POSITIVE O2 Mode BiPAP Fractionated Inspired Oxygen 60 Puncture Site LR BIPAP Pressure 16/8 Rate 16 Tidal Volume 596 Minute Volume 9.2 Pressure Support 8 Performing Lab: see note ML - [facility] LB CT angio chest Reviewed date:01/12/2024 04:10:30 PM Interpretation: Performing Lab: Notes/Report: Source Facility: [place] [address] CT Scan Report Signed Patient: KHADAR RAMOS MR#: [id number] : 1940 Acct:[id number] Age/Sex: 83 / M ADM Date: 01/10/24 Loc: MS 230-[address]: Josy Sahu M.D. Ordering Physician: Josy Sahu M.D. Date of Service: 01/11/24 Procedure(s): CT angio chest Accession Number(s): [id number] cc: Josy Sahu M.D. [place] [address] Patient Name: KHADAR RAMOS MRN: [id number] date: 1940 Sex: M Assigned Patient Location: [place] Current Patient Location: [place] Accession/Order Number: [id number] Exam Date: 01/11/2024 07:53 Report Date: 01/11/2024 09:09 At the request of: JOSY SAHU Procedure: CT angio chest EXAMINATION: CT angio chest HISTORY: acute hypoxia COMPARISON: XR chest 01/10/2024 TECHNIQUE: Multi-planar CT images were created with IV contrast. Axial, Coronal, and Sagittal images. Dose reduction techniques were achieved by using automated exposure control and/or adjustment of mA and/or kV according to patient size and/or use of iterative reconstruction technique. 3-D reconstruction was performed on a separate workstation. FINDINGS: VASCULATURE: No pulmonary embolism or abnormal opacity. LUNGS: Within medial left lung apex is a 3.4 cm rounded spiculated mass. Several additional small irregular nodules within left upper lobe ranging between 0.7 cm and 1.4 cm. Moderate emphysematous changes bilaterally. Atelectatic collapse versus partial consolidation of posterior basilar segments of the lower lobes; right greater than left. PLEURA: Bilateral pleural effusions, 3.1 cm in thickness on right, 1.67 m on left. AYE: No mass or adenopathy. MEDIASTINUM: No mass or adenopathy. Dilated fluid-filled esophagus up to 5.2 x 3.6 cm in diameter. CARDIAC: Cardiomegaly. No pericardial effusion. AORTA: Moderate atherosclerotic disease. No aneurysm. CHEST WALL: No mass or axillary adenopathy. BONES: No bone lesion or fracture. LIMITED ABDOMEN: No suspicious findings. Limited images of the upper abdomen. OTHER: Negative. CT/CT angio chest IMPRESSION: 1. No pulmonary embolism. 2. Moderate size right, small left pleural effusions with moderate atelectasis versus infiltrates within lung bases. 3. 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 Several small irregular nodules within left upper lobe concerning for metastatic disease. 4. No mediastinal or hilar lymphadenopathy. 5. Cardiomegaly. 6. Markedly dilated and fluid-filled esophagus suggesting loss of muscle tone and prominent gastroesophageal reflux. Electronically authenticated by: SHANITA TINOCO Date: 01/11/2024 09:09 Dictated By: Shanita Tinoco M.D. Signed By: 01/11/24910 DD/ 8 TD/TT: Machine Presser: [place] [address] CT Scan Report Signed Patient: KHADAR RAMOS MR#: [id number] : 1940 Acct:[id number] Age/Sex: 83 / M ADM Date: 01/10/24 Loc: MS 230-[address]: Bhupendra Sahu M.D. Ordering Physician: Josy Sahu M.D. Date of Service: 01/11/24 Procedure(s): CT ang io chest Accession Number(s): [id number] cc: Josy Sahu M.D. [place] [id number] Patient Name: KHADAR RAMOS MRN: [facility]:[id number] date: 1940 Sex: M Assigned Patient Location: [place] Current Patient Location: [place] Accession/Order Number: [id number] Exam Date: 07:53 Report Date: 01/11/2024 09:09 At the request of: JOSY SAHU Procedure: CT angio chest EXAMINATION: CT rogelio o chest HISTORY: acute hypoxia COMPARISON: XR chest 01/10/2024 TECHNIQUE: Multi-planar CT images were created with IV contrast. Axial, Coronal, and Sagitta l images. Dose reduction techniques were achieved by using automated exposure control and/or adjustment of mA and/or kV according to patient size and/or use of iterative reconstruction technique. 3-D reconstruction was performed on a separate workstation. FINDINGS: VASCULATURE: No pulmonary embolism or abnormal opacity. LUNGS: Within medial left lung apex is a 3.4 cm rounded spiculated mass. Several additional small irregular nodules within left upper lobe ranging between 0.7 cm and 1 .4 cm. Moderate emphysematous changes bilaterally. Atelectatic collapse versus partial consolidation of posterior basilar segments of the lower lobes; right greater than left. PLEURA: Bilateral pleural effusions, 3.1 cm in thickness on right, 1.67 m on left. AYE: No mass or adenopathy. MEDIASTINUM: No mass or adenopathy. Dilated fluid-filled esophagus up to 5.2 x 3.6 cm in diameter. CARDIAC: Cardiomegal y. No pericardial effusion. AORTA: Moderate atherosclerotic disease. No aneurysm. CHEST WALL: No mass or axillary adenopathy. BONES: No bone lesio n or fracture. LIMITED ABDOMEN: No suspicious findings. Limited images of the upper abdomen. OTHER: Negative. CT/CT angio chest IMPRESSION: 1. No pulmonary embolism. 2. Moderate size right, small left pleural effusions with moderate atelectasis versus infiltrates within lung bases. 3. 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 Several small irregular nodules within left upper lobe concerning for metastatic disease. 4. No mediastinal or hilar lymphadenopathy. 5. Cardiomegaly. 6. Markedly dilated and fluid-filled esophagus suggesting loss of muscle tone and prominent gastroesophageal reflux. Electronically authenticated by: SHANITA TINOCO Date: 01/11/2024 09:09 Dictated By: Shanita Tinoco M.D. Signed By: 01/11/24910 DD/ 8 TD/TT: Machine Presser: XR chest 1V Reviewed date:01/10/2024 08:22:34 PM Interpretation: Performing Lab: Notes/Report: Source Facility: [place] [address] XRay Report Signed Patient: KHADAR RAMOS MR#: [id number] : 1940 Acct:[id number] Age/Sex: 83 / M ADM Date: 01/10/24 Loc: ER Attending Dr: Ordering Physician: Marjorie Bhardwaj D.O. Date of Service: 01/10/24 Procedure(s): XR chest 1V Accession Number(s): [id number] cc: Josy Sahu M.D.; Marjorie Bhardwaj D.O. [place] [address] Patient Name: KHADAR RAMOS MRN: [id number] date: 1940 Sex: M Assigned Patient Location: ER Current Patient Location: ER Accession/Order Number: [id number] Exam Date: 01/10/2024 12:10 Report Date: 01/10/2024 12:43 At the request of: MARJORIE BHARDWAJ Procedure: XR chest 1V EXAMINATION: XR chest 1V HISTORY: sob COMPARISON: XR chest 06/10/2020 FINDINGS: LUNGS: Underexpanded lungs with mild stranding within right lung base. Mild opacities and stranding within left lung base obscuring the diaphragm margin. VASCULATURE: No increased pulmonary vasculature. PLEURA: Left pleural effusion. CARDIAC: Cardiomegaly. MEDIASTINUM: No visible mass or adenopathy. BONES: No fracture or visible bone lesion. OTHER: Negative. XR/XR chest 1V IMPRESSION: 1. Small to moderate left pleural effusion and mild left basilar infiltrates versus atelectasis. 2. Mild right basilar infiltrates versus atelectasis. Electronically authenticated by: SHANITA TINOCO Date: 01/10/2024 12:43 Dictated By: Shanita Tinoco M.D. Signed By: 01/10/24 1245 DD/ 42 TD/TT: Machine Presser: [place] [address] XRay Report Signed Patient: KHADAR RAMOS MR#: [id number] : 1940 Acct:[id number] Age/Sex: 83 / M ADM Date: 01/10/24 Loc: ER Attending Dr: Ordering Physician: Marjorie Bhardwaj D.O. Date of Service: 01/10/24 Procedure(s): XR morgan st 1V Accession Number(s): [id number] cc: Josy Sahu M.D. ; Marjorie Bhardwaj D.O. [place] [address] Patient Name: KHADAR RAMOS MRN: [id number] date: 1940 Sex: M Assigned Patient Location: ER Current Patient Location: ER Accession/Order Number: [id number] Exam Date: 12:10 Report Date: 01/10/2024 12:43 At the request of: MARJORIE BHARDWAJ Procedure: XR chest 1V EXAMINATION: XR ches t 1V HISTORY: sob COMPARISON: XR chest 06/10/2020 FINDINGS: LUNGS: Underexpanded lungs with mild stranding within right lung base. Mild opacities and stranding within left lung base obscuring the diaphragm margin. VASCULATURE: No increased pulmonary vasculature. PLEURA: Left pleural effusion. CARDIAC: Cardiomegaly. MEDIASTINUM: No visible mass or adenopathy. BONES: No fracture o r visible bone lesion. OTHER: Negative. XR/XR chest 1V IMPRESSION: 1. Small to moderate left pleural effusion and mild left basilar infiltrates versus atelectasis. 2. Mild right basila r infiltrates versus atelectasis. Electronically authenticated by: SHANITA TINOCO Date: 01/10/2024 12:43 Dictated By: Shanita Tinoco M.D. Signed By: 01/10/24 1245 DD/ 42 TD/TT: Machine Presser: Omar B Clem Ab, Tot Reviewed date:05/12/2024 02:12:42 PM Interpretation: Performing Lab: Notes/Report: [facility] , Hep B Core Ab, Tot Negative Negative Performed at: [facility] [address] [id number] Glue Sprayer: Tim Stack PhD, Phone: [phone] Performing Lab: see note - [facility] LB PROF CHEM 8 (BAS METB) Reviewed date:05/12/2024 02:12:42 PM Interpretation: Performing Lab: Notes/Report: [facility] , Sodium 141 136-145 mmol/L Potassium 4.3 3.5-5.1 mmol/L Chloride 103 98-107 mmol/L Carbon Dioxide 32.9 21.0-32.0 mmol/L Anion Gap 9.4 Glucose 161 74-106 mg/dL Blood Urea Nitrogen 20.0 7.0-18.0 mg/dL Creatinine 1.24 0.70-1.30 mg/dL Estimated GFR ( Cierra >60 >=60 mL/min/1.73m 2 Estimated GFR (Non- Marti 56 >=60 mL/min/1.73m 2 BUN Creatinine Ratio 16.1 Calcium 9.4 8.5-10.1 mg/dL Performing Lab: see note - [facility] LB BLOOD CULTURE ID PANEL Reviewed date:05/15/2024 07:47:36 PM Interpretation: Performing Lab: Notes/Report: [facility] , CTX-M NOT APPLICABLE NOT DETECTE IMP NOT APPLICABLE NOT DETECTE KPC NOT APPLICABLE NOT DETECTE mcr-1 NOT APPLICABLE NOT DETECTE mecA/C NOT APPLICABLE NOT DETECTE mecA/C and MREJ (MRSA) NOT APPLICABLE NOT DETECTE NDM NOT APPLICABLE NOT DETECTE OXA-48-like NOT APPLICABLE NOT DETECTE Gonzalo/B NOT APPLICABLE NOT DETECTE VIM NOT APPLICABLE NOT DETECTE Source Blood Enterococcus faecalis NOT DETECTED NOT DETECTE Enterococcus faecium NOT DETECTED NOT DETECTE Listeria monocytogenes NOT DETECTED NOT DETECTE Staphylococcus spp. NOT DETECTED NOT DETECTE Staphylococcus aureus NOT DETECTED NOT DETECTE Staphylococcus epidermidis NOT DETECTED NOT DETECTE Staphylococcus lugdunensis NOT DETECTED NOT DETECTE Streptococcus spp. NOT DETECTED NOT DETECTE Streptococcus agalactiae NOT DETECTED NOT DETECTE Streptococcus pneumoniae NOT DETECTED NOT DETECTE Streptococcus pyogenes NOT DETECTED NOT DETECTE A. calcoaceticus-baumanni i Cpx NOT DETECTED NOT DETECTE Bacteroides fragilis NOT DETECTED NOT DETECTE Enterobacterales NOT DETECTED NOT DETECTE Enterobacter cloacae complex NOT DETECTED NOT DETECTE Escherichia coli NOT DETECTED NOT DETECTE Klebsiella aerogenes NOT DETECTED NOT DETECTE Klebsiella oxytoca NOT DETECTED NOT DETECTE Klebsiella pneumoniae group NOT DETECTED NOT DETECTE Proteus spp. NOT DETECTED NOT DETECTE Salmonella spp. NOT DETECTED NOT DETECTE Serratia marcescens NOT DETECTED NOT DETECTE Haemophilus influenzae NOT DETECTED NOT DETECTE Neisseria meningitidis NOT DETECTED NOT DETECTE Pseudomonas aeruginosa NOT DETECTED NOT DETECTE Stenotrophomonas maltophilia NOT DETECTED NOT DETECTE Valarie albicans NOT DETECTED NOT DETECTE Valarie auris NOT DETECTED NOT DETECTE Valarie glabrata NOT DETECTED NOT DETECTE Valarie krusei NOT DETECTED NOT DETECTE Valarie parapsilosis NOT DETECTED NOT DETECTE Valarie tropicalis NOT DETECTED NOT DETECTE Cryptococcus neoformans/gattii NOT DETECTED NOT DETECTE Performing Lab: see note - [facility] LB LACTATE or LACTIC ACID Reviewed date:05/14/2024 06:42:18 PM Interpretation: Performing Lab: Notes/Report: [facility] , Lactate/Lactic Acid 3.1 0.4-2.0 mmol/L RESULTS CALLED TO CATHERINE CULLEN RN Performing Lab: see note - [facility] LB MAGNESIUM Reviewed date:05/14/2024 06:42:18 PM Interpretation: Performing Lab: Notes/Report: [facility] , Magnesium 2.0 1.8-2.4 mg/dL Performing Lab: see note - [facility] LB PROF 14(COMP METB) Reviewed date:05/14/2024 06:42:18 PM Interpretation: Performing Lab: Notes/Report: [facility] , Sodium 143 136-145 mmol/L Potassium 4.8 3.5-5.1 mmol/L Chloride 102 98-107 mmol/L Carbon Dioxide 33.6 21.0-32.0 mmol/L Anion Gap 12.2 Glucose 201 74-106 mg/dL Blood Urea Nitrogen 36.0 7.0-18.0 mg/dL Creatinine 1.37 0.70-1.30 mg/dL Estimated GFR ( Cierra >60 >=60 mL/min/1.73m 2 Estimated GFR (Non- Marti 50 >=60 mL/min/1.73m 2 BUN Creatinine Ratio 26.3 Calcium 9.7 8.5-10.1 mg/dL Bilirubin Total 1.0 0.2-1.0 mg/dL Aspartate Amino Transferase 47 15-37 U/L Alanine Aminotransferase 38 16-63 U/L Alkaline Phosphatase 104 46-116 U/L Total Protein 6.7 6.4-8.2 g/dL Albumin Level 3.2 3.4-5.0 g/dL Globulin 3.5 Albumin Globulin Ratio 0.9 Performing Lab: see note - [facility] Blood Culture 2 Reviewed date:05/19/2024 08:42:45 PM Interpretation: Performing Lab: Notes/Report: LEFT AC [facility] , Blood Culture 2 See Below For Report Blood Culture 2 NG5D NO GROWTH AT 5 DAYS.^NO GROWTH AT 5 DAYS. Performing Lab: see note [facility] Prothrombin Time INR Reviewed date:05/14/2024 06:42:18 PM Interpretation: Performing Lab: Notes/Report: [facility] , Prothrombin Time 15.8 9.0-11.6 sec INR 1.56 DESIRED INR: 2.0-3.0 CONDITIONS NOT LISTED BELOW 2.5-3.5 FOR PROSTHETIC HEART VALVE REPLACEMENT 2.5-3.5 RECURRENT THROMBOSIS Performing Lab: see note [facility] LB Manual Differential Reviewed date:05/14/2024 06:42:18 PM Interpretation: Performing Lab: Notes/Report: [facility] , Segmented Neutrophils % Manual 88.0 43.0-75.0 Lymphocytes Percent Manual 6.0 20.5-60.0 % Monocytes Percent Manual 5.0 1.7-12.0 % Eosinophils Percent Manual 0.0 0.9-7.0 % Basophils Percent Manual 0.0 0.2-2.0 % Metamyelocytes % 1.0 Segmented Neut Absolute Manual 7.12 1.4-6.5 10 3/uL Lymphocytes Absolute Manual 0.48 1.20-3.80 10 3/uL Monocytes Absolute Manual 0.40 0.30-0.80 10 3/uL Eosinophils Absolute Manual 0.00 0.00-0.70 10 3/uL Basophils Abs Manual 0.00 0.00-0.10 1 0 3/uL Metamyelocytes Absolute Manual 0.08 Performing Lab: see note - [facility] LB Troponin I High Sensitivity Reviewed date:05/14/2024 06:42:18 PM Interpretation: Performing Lab: Notes/Report: [facility] , Troponin I High Sensitivity 38.0 4.0-76.1 pg/mL CUT-OFF POINTS HAVE BEEN ESTABLISHED BASED ON THE FOURTH UNIVERSAL DEFINITION OF MYOCARDIAL INFARCTION. THE UPPER REFERENCE LIMIT (URL) OF TROPONIN, DEFINED THE 99TH PERCENTILE OF cTnI DISTRIBUTION IN A REFERENCE POPULATION, HAS BEEN CONFIRMED THE DECISION THRESHOLD FOR [place] DIAGNOSIS. 99TH PERCENTILE = 76.2 PG/ML NOTE: HIGH-SENSITIVITY TROPONIN ASSAY IS NOT INTENDED TO BE USED IN ISOLATION BUT SHOULD BE INTERPRETED IN CONJUNCTION WITH OTHER DIAGNOSTIC AND CLINICAL INFORMATION. Performing Lab: see note ML - [facility] SARS-CoV-2 Ag* Reviewed date:05/14/2024 06:42:18 PM Interpretation: Performing Lab: Notes/Report: [facility] , SARS-CoV-2 Ag NEGATIVE NEGATIVE This test has not been FDA cleared or approved, but has been authorized by the FDA under an Emergency Use Authorization (EUA) for use by authorized laboratories certified under CLIA that meet the requirements to perform moderate or high complexity testing. This test has been authorized only for the detection of proteins from SARS-CoV-2, not for any other viruses or pathogens. The emergency use of this test is authorized for the duration of the declaration that circumstances exist justifying the authorization of emergency use of in vitro diagnostic tests for detection and/or diagnosis of Covid-19 under section 564(b)(1) of the Act, 21 U.S.C. 360bbb-3(b)(1), unless the declaration is terminated or authorization is revoked sooner. Performing Lab: see note ML - [facility] LB INFLUENZA A AND B AG Reviewed date:05/14/2024 06:42:18 PM Interpretation: Performing Lab: Notes/Report: [facility] , Influenza Virus A Antigen Negative Negative for Flu A protein antigen. Infection due to Flu A cannot be ruled out. Flu A antigen in the sample may be below the detection limit of the test. Influenza Virus B Antigen Negative Negative for Flu B protein antigen. Infection due to Flu B cannot be ruled out. Flu B antigen in the sample may be below the detection limit of the test. Performing Lab: see note ML - [facility] LB CBC AUTO DIFF Reviewed date:05/14/2024 06:42:18 PM Interpretation: Performing Lab: Notes/Report: [facility] , White Blood Count 8.1 4.0-11.0 10 3/uL Red Blood Count 4.94 4.70-6.10 10 6/uL Hemoglobin 14.4 14.0-18.0 g/dL Hematocrit 47.4 42.0-54.0 % Mean Corpuscular Volume 96.0 80.0-94.0 fL Mean Corpuscular Hemoglobin 29.1 25.9-34.0 pg Mean Corpuscular HGB Conc 30.4 29.9-35.2 g/dL Red Cell Distribution Width 16.6 11.0-15.0 % Platelet Count 241 150-450 10 3/uL Mean Platelet Volume 11.3 9.5-13.5 fL Performing Lab: see note ML - [facility] BNP Reviewed date:05/14/2024 06:42:18 PM Interpretation: Performing Lab: Notes/Report: [facility] , NT Pro B Type Natriuretic Pept 7355.0 <=1800.0 pg/mL RESULTS CALLED TO CATHERINE CULLEN RN Performing Lab: see note ML - [facility] BLOOD GASES BTY Reviewed date:05/14/2024 06:42:18 PM Interpretation: Performing Lab: Notes/Report: [facility] , pH ABG 7.285 7.350-7.450 RESULTS CALLED TO CATHERINE CULLEN RN ABG PCO2 67.8 35.0-45.0 mmHg RESULTS CALLED TO CATHERINE CULLEN RN PO2 ABG 61.8 80.0-100.0 mmHg HCO3 ABG 32.2 22.0-26.0 mmol/L Base Excess ABG 5.5 -2.0-2.0 mmol/L Oxygen Saturation ABG 86.2 Charles Test POSITIVE POSITIVE O2 Mode VENTURI MASK Liters per Minute 14 Fractionated Inspired Oxygen 55 Performing Lab: see note ML - [facility] FREE T3 Reviewed date:01/10/2024 08:22:34 PM Interpretation: Performing Lab: Notes/Report: [facility] , Free T3 1.90 2.18-3.98 pg/mL Performing Lab: see note ML - [facility] Troponin I High Sensitivity Reviewed date:05/14/2024 06:42:18 PM Interpretation: Performing Lab: Notes/Report: [facility] , Troponin I High Sensitivity 31.1 4.0-76.1 pg/mL CUT-OFF POINTS HAVE BEEN ESTABLISHED BASED ON THE FOURTH UNIVERSAL DEFINITION OF MYOCARDIAL INFARCTION. THE UPPER REFERENCE LIMIT (URL) OF TROPONIN, DEFINED THE 99TH PERCENTILE OF cTnI DISTRIBUTION IN A REFERENCE POPULATION, HAS BEEN CONFIRMED THE DECISION THRESHOLD FOR [place] DIAGNOSIS. 99TH PERCENTILE = 76.2 PG/ML NOTE: HIGH-SENSITIVITY TROPONIN ASSAY IS NOT INTENDED TO BE USED IN ISOLATION BUT SHOULD BE INTERPRETED IN CONJUNCTION WITH OTHER DIAGNOSTIC AND CLINICAL INFORMATION. Performing Lab: see note ML - [facility] LB MAGNESIUM Reviewed date:01/10/2024 08:22:34 PM Interpretation: Performing Lab: Notes/Report: [facility] , Magnesium 2.0 1.8-2.4 mg/dL Performing Lab: see note ML - [facility] LB T4 Reviewed date:01/10/2024 08:22:34 PM Interpretation: Performing Lab: Notes/Report: [facility] , T4 Thyroxine 8.80 4.50-12.10 ug/dL Performing Lab: see note ML - [facility] LB TSH Reviewed date:01/10/2024 08:22:34 PM Interpretation: Performing Lab: Notes/Report: [facility] , Thyroid Stimulating Hormone 2.331 0.358-3.740 uIU/mL Performing Lab: see note ML - [facility] LB Troponin I High Sensitivity Reviewed date:01/10/2024 08:22:34 PM Interpretation: Performing Lab: Notes/Report: [facility] , Troponin I High Sensitivity 19.1 4.0-76.1 pg/mL CUT-OFF POINTS HAVE BEEN ESTABLISHED BASED ON THE FOURTH UNIVERSAL DEFINITION OF MYOCARDIAL INFARCTION. THE UPPER REFERENCE LIMIT (URL) OF TROPONIN, DEFINED THE 99TH PERCENTILE OF cTnI DISTRIBUTION IN A REFERENCE POPULATION, HAS BEEN CONFIRMED THE DECISION THRESHOLD FOR [place] DIAGNOSIS. 99TH PERCENTILE = 76.2 PG/ML NOTE: HIGH-SENSITIVITY TROPONIN ASSAY IS NOT INTENDED TO BE USED IN ISOLATION BUT SHOULD BE INTERPRETED IN CONJUNCTION WITH OTHER DIAGNOSTIC AND CLINICAL INFORMATION. Performing Lab: see note ML - [facility] LB BLOOD GASES BTY Reviewed date:01/12/2024 04:10:29 PM Interpretation: Performing Lab: Notes/Report: [facility] , pH ABG 7.253 7.350-7.450 RESULTS CALLED TO JONNATHAN NAM RN at 0429 ABG PCO2 74.7 35.0-45.0 mmHg RESULTS CALLED TO JONNATHAN NAM RN at 0429 PO2 ABG 72.3 80.0-100.0 mmHg HCO3 ABG 33.0 22.0-26.0 mmol/L Base Excess ABG 5.8 -2.0-2.0 mmol/L Oxygen Saturation ABG 91.0 Charles Test POSITIVE POSITIVE O2 Mode VAPOTHERM Liters per Minute 40 Fractionated Inspired Oxygen 100 Puncture Site RT RADIAL Performing Lab: see note ML - [facility] LB BNP Reviewed date:01/12/2024 04:10:29 PM Interpretation: Performing Lab: Notes/Report: [facility] , NT Pro B Type Natriuretic Pept 3334.0 <=1800.0 pg/mL RESULTS CALLED TO JONNATHAN NAM RN at 0604 Performing Lab: see note ML - [facility] LB CBC AUTO DIFF Reviewed date:01/12/2024 04:10:29 PM Interpretation: Performing Lab: Notes/Report: [facility] , White Blood Count 10.9 4.0-11.0 10 3/uL Red Blood Count 4.89 4.70-6.10 10 6/uL Hemoglobin 14.4 14.0-18.0 g/dL Hematocrit 46.9 42.0-54.0 % Mean Corpuscular Volume 95.9 80.0-94.0 fL Mean Corpuscular Hemoglobin 29.4 25.9-34.0 pg Mean Corpuscular HGB Conc 30.7 29.9-35.2 g/dL Red Cell Distribution Width 15.9 11.0-15.0 % Platelet Count 232 150-450 10 3/uL Mean Platelet Volume 10.5 9.5-13.5 fL Performing Lab: see note [facility] LB PROF 14(COMP METB) Reviewed date:01/12/2024 04:10:29 PM Interpretation: Performing Lab: Notes/Report: [facility] , Sodium 147 136-145 mmol/L Potassium 4.3 3.5-5.1 mmol/L Chloride 106 98-107 mmol/L Carbon Dioxide 32.2 21.0-32.0 mmol/L Anion Gap 13.1 Glucose 167 74-106 mg/dL Blood Urea Nitrogen 44.0 7.0-18.0 mg/dL Creatinine 1.41 0.70-1.30 mg/dL Estimated GFR ( Cierra 59 >=60 mL/min/1.73m 2 Estimated GFR (Non- Marti 48 >=60 mL/min/1.73m 2 BUN Creatinine Ratio 31.2 Calcium 9.0 8.5-10.1 mg/dL Bilirubin Total 0.7 0.2-1.0 mg/dL Aspartate Amino Transferase 12 15-37 U/L Alanine Aminotransferase 21 16-63 U/L Alkaline Phosphatase 53 46-116 U/L Total Protein 6.3 6.4-8.2 g/dL Albumin Level 3.2 3.4-5.0 g/dL Globulin 3.1 Albumin Globulin Ratio 1.0 Performing Lab: see note ML - [facility] LB PROF CHEM 8 (BAS METB) Reviewed date:01/12/2024 04:10:29 PM Interpretation: Performing Lab: Notes/Report: [facility] , Sodium 143 136-145 mmol/L Potassium 4.5 3.5-5.1 mmol/L Chloride 104 98-107 mmol/L Carbon Dioxide 32.6 21.0-32.0 mmol/L Anion Gap 10.9 Glucose 301 74-106 mg/dL Blood Urea Nitrogen 44.0 7.0-18.0 mg/dL Creatinine 1.50 0.70-1.30 mg/dL Estimated GFR ( Cierra 54 >=60 mL/min/1.73m 2 Estimated GFR (Non- Marti 45 >=60 mL/min/1.73m 2 BUN Creatinine Ratio 29.3 Calcium 8.9 8.5-10.1 mg/dL Performing Lab: see note ML - [facility] LB Manual Differential Reviewed date:01/12/2024 04:10:29 PM Interpretation: Performing Lab: Notes/Report: [facility] , Segmented Neutrophils % Manual 98.0 43.0-75.0 Lymphocytes Percent Manual 1.0 20.5-60.0 % Monocytes Percent Manual 1.0 1.7-12.0 % Eosinophils Percent Manual 0.0 0.9-7.0 % Basophils Percent Manual 0.0 0.2-2.0 % Segmented Neut Absolute Manual 10.68 1.4-6.5 10 3/uL Lymphocytes Absolute Manual 0.10 1.20-3.80 10 3/uL Monocytes Absolute Manual 0.10 0.30-0.80 10 3/uL Eosinophils Absolute Manual 0.00 0.00-0.70 10 3/uL Basophils Abs Manual 0.00 0.00-0.10 1 0 3/uL Performing Lab: see note - [facility] Blood Culture 1 Reviewed date:04/05/2024 04:42:54 PM Interpretation: Performing Lab: Notes/Report: [facility] , Blood Culture 1 See Below For Report Blood Culture 1 NG5D NO GROWTH AT 5 DAYS. Performing Lab: see note [facility] Blood Culture 2 Reviewed date:04/05/2024 04:42:54 PM Interpretation: Performing Lab: Notes/Report: [facility] , Blood Culture 2 See Below For Report Blood Culture 2 NG5D NO GROWTH AT 5 DAYS. Performing Lab: see note [facility] Hepatitis B Surf Ab Quant Reviewed date:05/12/2024 02:12:42 PM Interpretation: Performing Lab: Notes/Report: [facility] , Hepatitis B Surf Ab Quant <3.5 Immunity>10 mIU/mL Status of Immunity Anti-HBs Level Inconsistent with Immunity 0.0 - 10.0 Consistent with Immunity >10.0 Performing Lab: see note LC - [facility] LB TSH W/ REFLEX FT4 Reviewed date:05/12/2024 02:12:42 PM Interpretation: Performing Lab: Notes/Report: [facility] , TSH W/ REFLEX FT4 1.060 0.358-3.740 uIU/mL Performing Lab: see note - [facility] LB HBsAg Screen Reviewed date:05/12/2024 02:12:42 PM Interpretation: Performing Lab: Notes/Report: [facility] , HBsAg Screen Negative Negative Performing Lab: see note LC - [facility] LB PROF 14(COMP METB) Reviewed date:05/12/2024 02:12:42 PM Interpretation: Performing Lab: Notes/Report: [facility] , Sodium 138 136-145 mmol/L Potassium 4.7 3.5-5.1 mmol/L Chloride 100 98-107 mmol/L Carbon Dioxide 32.9 21.0-32.0 mmol/L Anion Gap 9.8 Glucose 145 74-106 mg/dL Blood Urea Nitrogen 18.0 7.0-18.0 mg/dL Creatinine 1.19 0.70-1.30 mg/dL Estimated GFR ( Cierra >60 >=60 mL/min/1.73m 2 Estimated GFR (Non- Marti 59 >=60 mL/min/1.73m 2 BUN Creatinine Ratio 15.1 Calcium 9.5 8.5-10.1 mg/dL Bilirubin Total 0.9 0.2-1.0 mg/dL Aspartate Amino Transferase 16 15-37 U/L Alanine Aminotransferase 21 16-63 U/L Alkaline Phosphatase 82 46-116 U/L Total Protein 6.6 6.4-8.2 g/dL Albumin Level 3.4 3.4-5.0 g/dL Globulin 3.2 Albumin Globulin Ratio 1.1 Performing Lab: see note ML - [facility] LB MAGNESIUM Reviewed date:05/12/2024 02:12:42 PM Interpretation: Performing Lab: Notes/Report: [facility] , Magnesium 1.8 1.8-2.4 mg/dL Performing Lab: see note ML - [facility] LB PROF CHEM 8 (BAS METB) Reviewed date:04/07/2024 08:44:00 AM Interpretation: Performing Lab: Notes/Report: [facility] , Sodium 145 136-145 mmol/L Potassium 3.5 3.5-5.1 mmol/L Chloride 101 98-107 mmol/L Carbon Dioxide 44.5 21.0-32.0 mmol/L Anion Gap 3.0 Glucose 81 74-106 mg/dL Blood Urea Nitrogen 68.0 7.0-18.0 mg/dL Creatinine 1.56 0.70-1.30 mg/dL Estimated GFR ( Cierra 52 >=60 mL/min/1.73m 2 Estimated GFR (Non- Marti 43 >=60 mL/min/1.73m 2 BUN Creatinine Ratio 43.6 Calcium 9.7 8.5-10.1 mg/dL Performing Lab: see note ML - [facility] LB CBC AUTO DIFF Reviewed date:04/07/2024 08:44:00 AM Interpretation: Performing Lab: Notes/Report: [facility] , White Blood Count 14.9 4.0-11.0 10 3/uL Red Blood Count 4.83 4.70-6.10 10 6/uL Hemoglobin 14.0 14.0-18.0 g/dL Hematocrit 44.8 42.0-54.0 % Mean Corpuscular Volume 92.8 80.0-94.0 fL Mean Corpuscular Hemoglobin 29.0 25.9-34.0 pg Mean Corpuscular HGB Conc 31.3 29.9-35.2 g/dL Red Cell Distribution Width 15.8 11.0-15.0 % Platelet Count 116 150-450 10 3/uL Mean Platelet Volume 11.3 9.5-13.5 fL Neutrophils Percent Auto 88.7 43.0-75.0 % Lymphocytes Percent Auto 3.0 20.5-60.0 % Monocytes Percent Auto 7.0 1.7-12.0 % Eosinophils Percent Auto 0.7 0.9-7.0 % Basophils Percent Auto 0.1 0.2-2.0 % Immature Granulocytes Pct Auto 0.5 0.0-0.5 % Neutrophils Absolute Auto 13.3 1.4-6.5 10 3/uL Lymphocytes Absolute Auto 0.5 1.2-3.8 10 3/uL Monocytes Absolute Auto 1.1 0.3-0.8 10 3/uL Eosinophils Absolute Auto 0.1 0.0-0.7 10 3/uL Basophils Absolute Auto 0.0 0.0-0.1 10 3/uL Immature Granulocytes Abs Auto 0.07 0.00-0.03 10 3/uL Performing Lab: see note ML - [facility] LB BNP Reviewed date:04/07/2024 08:44:00 AM Interpretation: Performing Lab: Notes/Report: [facility] , NT Pro B Type Natriuretic Pept 2122.0 <=1800.0 pg/mL RESULTS CALLED TO LULU REYNOSO RN @BY [employer] at 0536 Performing Lab: see note ML - [facility] LB Gram Stain Evaluation Reviewed date:04/09/2024 01:15:25 PM Interpretation: Performing Lab: Notes/Report: [facility] , Gram Stain Evaluation See Below For Report Gram Stain Evaluation This specimen is of good quality and is acceptable for routine Gram Stain Evaluation bacterial culture. Gram Stain Evaluation This specimen is of good quality and is acceptable for routine Performing Lab: see note LC - [facility] LB Result 4 Reviewed date:04/09/2024 01:15:25 PM Interpretation: Performing Lab: Notes/Report: [facility] , Result 4 See Below For Report Result 4 RISK ASSESSOR Performing Lab: see note LC - [facility] LB Result 3 Reviewed date:04/09/2024 01:15:25 PM Interpretation: Performing Lab: Notes/Report: [facility] , Result 3 See Below For Report Result 3 Rare gram positive rods Performing Lab: see note LC - [facility] LB Result 2 Reviewed date:04/09/2024 01:15:25 PM Interpretation: Performing Lab: Notes/Report: [facility] , Result 2 See Below For Report Result 2 Rare gram positive cocci Performing Lab: see note LC - [facility] LB Result 1 Reviewed date:04/09/2024 01:15:25 PM Interpretation: Performing Lab: Notes/Report: [facility] , Result 1 See Below For Report Result 1 Few budding yeast present. Performing Lab: see note LC - [facility] LB Epithelial Cells Reviewed date:04/09/2024 01:15:25 PM Interpretation: Performing Lab: Notes/Report: [facility] , Epithelial Cells See Below For Report Epithelial Cells Few Performing Lab: see note LC - [facility] LB White Blood Cells Reviewed date:04/09/2024 01:15:25 PM Interpretation: Performing Lab: Notes/Report: [facility] , White Blood Cells See Below For Report White Blood Cells White Blood Cells Moderate White Blood Cells Performing Lab: see note LC - [facility] LB UA Micro, reflex to culture Reviewed date:05/26/2024 09:15:32 PM Interpretation: Performing Lab: Notes/Report: [facility] , Color Urine LT. YELLOW YELLOW Clarity Urine CLEAR CLEAR Specific [place] Urine <=1.005 1.005-1.025 pH Urine 6.0 5.0-9.0 Protein Urine NEGATIVE NEG/TRACE mg/dL Glucose Urine UA >=1000 NEGATIVE mg/dL Bilirubin Urine NEGATIVE NEGATIVE Ketones Urine NEGATIVE NEGATIVE mg/dL Blood Urine NEGATIVE NEGATIVE Nitrite Urine NEGATIVE NEGATIVE Urobilinogen Urine 1.0 0.2-1.0 EU/dL Leukocyte Esterase Urine NEGATIVE NEGATIVE WBC Urine NONE SEEN NONE SEEN #/HPF RBC Urine 0-2 0-2 #/HPF Bacteria Urine NONE SEEN NONE SEEN #/HPF Mucus Urine NONE SEEN NONE SEEN Squamous Epithelial Cell Urine RARE NONE/RARE #/LPF Crystals Seen? None Seen None Seen #/HPF Cast Seen? NONE SEEN NONE SEEN #/LPF Urine Culture Indicated NO Performing Lab: see note ML - [facility] PROF CHEM 8 (BAS METB) Reviewed date:04/05/2024 04:42:54 PM Interpretation: Performing Lab: Notes/Report: [facility] , Sodium 145 136-145 mmol/L Potassium 3.7 3.5-5.1 mmol/L Chloride 101 98-107 mmol/L Carbon Dioxide 42.3 21.0-32.0 mmol/L Anion Gap 5.4 Glucose 126 74-106 mg/dL Blood Urea Nitrogen 66.0 7.0-18.0 mg/dL Creatinine 1.61 0.70-1.30 mg/dL Estimated GFR ( Cierra 50 >=60 mL/min/1.73m 2 Estimated GFR (Non- Marti 41 >=60 mL/min/1.73m 2 BUN Creatinine Ratio 41.0 Calcium 9.1 8.5-10.1 mg/dL Performing Lab: see note ML - [facility] BNP Reviewed date:04/05/2024 04:42:54 PM Interpretation: Performing Lab: Notes/Report: [facility] , NT Pro B Type Natriuretic Pept 2207.0 <=1800.0 pg/mL RESULTS CALLED TO Martin Clay RN @BY Pawel Villarreal [place] at 0636 Performing Lab: see note ML - [facility] Troponin I High Sensitivity Reviewed date:04/05/2024 04:42:54 PM Interpretation: Performing Lab: Notes/Report: [facility] , Troponin I High Sensitivity 25.3 4.0-76.1 pg/mL CUT-OFF POINTS HAVE BEEN ESTABLISHED BASED ON THE FOURTH UNIVERSAL DEFINITION OF MYOCARDIAL INFARCTION. THE UPPER REFERENCE LIMIT (URL) OF TROPONIN, DEFINED THE 99TH PERCENTILE OF cTnI DISTRIBUTION IN A REFERENCE POPULATION, HAS BEEN CONFIRMED THE DECISION THRESHOLD FOR [place] DIAGNOSIS. 99TH PERCENTILE = 76.2 PG/ML NOTE: HIGH-SENSITIVITY TROPONIN ASSAY IS NOT INTENDED TO BE USED IN ISOLATION BUT SHOULD BE INTERPRETED IN CONJUNCTION WITH OTHER DIAGNOSTIC AND CLINICAL INFORMATION. Performing Lab: see note ML - [facility] CRP Reviewed date:05/28/2024 10:55:27 AM Interpretation: Performing Lab: Notes/Report: [facility] , C Reactive Protein <0.50 <=0.50 mg/dL Performing Lab: see note - [facility] PROF CHEM 8 (BAS METB) Reviewed date:04/05/2024 04:42:54 PM Interpretation: Performing Lab: Notes/Report: [facility] , Sodium 148 136-145 mmol/L Potassium 3.6 3.5-5.1 mmol/L Chloride 103 98-107 mmol/L Carbon Dioxide 42.6 21.0-32.0 mmol/L Anion Gap 6.0 Glucose 122 74-106 mg/dL Blood Urea Nitrogen 58.0 7.0-18.0 mg/dL Creatinine 1.52 0.70-1.30 mg/dL Estimated GFR ( Cierra 54 >=60 mL/min/1.73m 2 Estimated GFR (Non- Marti 44 >=60 mL/min/1.73m 2 BUN Creatinine Ratio 38.2 Calcium 9.2 8.5-10.1 mg/dL Performing Lab: see note ML - [facility] BNP Reviewed date:04/05/2024 04:42:54 PM Interpretation: Performing Lab: Notes/Report: [facility] , NT Pro B Type Natriuretic Pept 3063.0 <=1800.0 pg/mL RESULTS CALLED TO Nicolasa Reynoso RN @BY Pawel Villarreal [place] at 0630 Performing Lab: see note ML - [facility] PROF CHEM 8 (BAS METB) Reviewed date:04/03/2024 10:08:30 PM Interpretation: Performing Lab: Notes/Report: [facility] , Sodium 150 136-145 mmol/L Potassium 3.0 3.5-5.1 mmol/L Chloride 106 98-107 mmol/L Carbon Dioxide 43.9 21.0-32.0 mmol/L Anion Gap 3.1 Glucose 100 74-106 mg/dL Blood Urea Nitrogen 48.0 7.0-18.0 mg/dL Creatinine 1.32 0.70-1.30 mg/dL Estimated GFR ( Cierra >60 >=60 mL/min/1.73m 2 Estimated GFR (Non- Marti 52 >=60 mL/min/1.73m 2 BUN Creatinine Ratio 36.4 Calcium 9.2 8.5-10.1 mg/dL Performing Lab: see note ML - [facility] LB CBC AUTO DIFF Reviewed date:04/03/2024 10:08:30 PM Interpretation: Performing Lab: Notes/Report: [facility] , White Blood Count 17.7 4.0-11.0 10 3/uL Red Blood Count 4.52 4.70-6.10 10 6/uL Hemoglobin 13.2 14.0-18.0 g/dL Hematocrit 43.4 42.0-54.0 % Mean Corpuscular Volume 96.0 80.0-94.0 fL Mean Corpuscular Hemoglobin 29.2 25.9-34.0 pg Mean Corpuscular HGB Conc 30.4 29.9-35.2 g/dL Red Cell Distribution Width 16.4 11.0-15.0 % Platelet Count 169 150-450 10 3/uL Mean Platelet Volume 11.4 9.5-13.5 fL Neutrophils Percent Auto 94.8 43.0-75.0 % Lymphocytes Percent Auto 1.2 20.5-60.0 % Monocytes Percent Auto 3.2 1.7-12.0 % Eosinophils Percent Auto 0.0 0.9-7.0 % Basophils Percent Auto 0.1 0.2-2.0 % Immature Granulocytes Pct Auto 0.7 0.0-0.5 % Neutrophils Absolute Auto 16.7 1.4-6.5 10 3/uL Lymphocytes Absolute Auto 0.2 1.2-3.8 10 3/uL Monocytes Absolute Auto 0.6 0.3-0.8 10 3/uL Eosinophils Absolute Auto 0.0 0.0-0.7 10 3/uL Basophils Absolute Auto 0.0 0.0-0.1 10 3/uL Immature Granulocytes Abs Auto 0.12 0.00-0.03 10 3/uL Performing Lab: see note ML - [facility] LB Erythrocyte Sedimentation Ra te Reviewed date:05/28/2024 10:55:27 AM Interpretation: Performing Lab: Notes/Report: [facility] [facility] , Erythrocyte Sedimentation Rate 10 <=20 mm/hr Performing Lab: see note ML - [facility] LB BNP Reviewed date:04/03/2024 10:08:30 PM Interpretation: Performing Lab: Notes/Report: [facility] , NT Pro B Type Natriuretic Pept 3774.0 <=1800.0 pg/mL RESULTS CALLED TO NURY FISHMAN RN Performing Lab: see note ML - [facility] LB XR chest 2V Reviewed date:04/02/2024 09:03:29 PM Interpretation: Performing Lab: Notes/Report: Source Facility: [facility]-[address] [place] [address] [place] [address] XRay Report Signed Patient: KHADAR RAMOS MR#: [id number] : 1940 Acct:[id number] Age/Sex: 84 / M ADM Date: 03/31/24 Loc: [place] 214-[address]: Josy Sahu M.D. Ordering Physician: Josy Sahu M.D. Date of Service: 04/02/24 Procedure(s): XR chest 2V Accession Number(s): [id number] cc: Josy Sahu M.D. [place] [address] Patient Name: KHADAR RAMOS MRN: [id number] date: 1940 Sex: M Assigned Patient Location: [place] Current Patient Location: [place] Accession/Order Number: [id number] Exam Date: 04/02/2024 09:30 Report Date: 04/02/2024 09:58 At the request of: JOSY SAHU Procedure: XR chest 2V EXAMINATION: XR chest 2V HISTORY: follow up pleural effusions COMPARISON: XR chest 03/31/2024 FINDINGS: LUNGS: Increased opacities within lung bases obscuring the diaphragm margins; right greater than left. VASCULATURE: No increased pulmonary vasculature. PLEURA: Bilateral pleural effusions. CARDIAC: Stable cardiomegaly. Cardiac pacer/AICD. MEDIASTINUM: No visible mass or adenopathy. BONES: No fracture or visible bone lesion. OTHER: Negative. XR/XR chest 2V IMPRESSION: 1. Moderate right, mild left basilar infiltrates suggestive of pneumonia versus atelectasis. Findings have increased compared to 2 days ago. 2. Suspect bilateral pleural effusions; small to moderate. Electronically authenticated by: SHANITA TINOCO Date: 04/02/2024 09:58 Dictated By: Shanita Tinoco M.D. Signed By: 04/02/24 1000 DD/ 0958 TD/TT: Machine Presser: [place] [address] XRay Report Signed Patient: KHADAR RAMOS MR#: [id number] : 1940 Acct:[id number] Age/Sex: 84 / M ADM Date: 03/31/24 Loc: [place] 214-[address]: Bhupendra Sahu M.D. Ordering Physician: Josy Sahu M.D. Date of Service: 04/02/24 Procedure(s): XR [address] 2V Accession Number(s): [id number] cc: Josy Sahu M.D. [place] [address] Patient Name: KHADAR RAMOS MRN: [id number] date: 1940 Sex: M Assigned Patient Location: [place] Current Patient Location: [place] Accession/Order Number: [id number] Exam Date: 04/02/2024 09:30 Report Date: 04/02/2024 09:58 At the request of: JOSY SAHU Procedure: XR chest 2V EXAMINATION: XR ches t 2V HISTORY: follow up pleural effusions COMPARISON: XR chest 03/31/2024 FINDINGS: LUNGS: Increased opacities within lung bases obscuring the diaphragm margins; right greater than left. VASCULATURE: No increased pulmonary vasculature. PLEURA: Bilateral pleural effusions. CARDIAC: Stable cardiomegaly. Cardiac pacer/AICD. MEDIASTINUM: No visible mass or adenopathy. BONES: No fracture o r visible bone lesion. OTHER: Negative. XR/XR chest 2V IMPRESSION: 1. Moderate right, mild left basilar infiltrates suggestive of pneumonia versus atelectasis. Finding s have increased compared to 2 days ago. 2. Suspect bilateral pleural effusions; small to moderate. Electronically authenticated by: SHANITA TINOCO Date: 04/02/2024 09:58 Dictated By: Shanita Tinoco M.D. Signed By: 04/02/24 1000 DD/ 0958 TD/TT: Machine Presser: Manual Differential Reviewed date:04/01/2024 05:02:44 PM Interpretation: Performing Lab: Notes/Report: [facility] , Segmented Neutrophils % Manual 98.0 43.0-75.0 Band Neutrophils % 0.0 0-5 % Lymphocytes Percent Manual 1.0 20.5-60.0 % Monocytes Percent Manual 0.0 1.7-12.0 % Eosinophils Percent Manual 0.0 0.9-7.0 % Basophils Percent Manual 0.0 0.2-2.0 % Atypical Lymphocytes % Manual 1.0 Segmented Neut Absolute Manual 6.66 1.4-6.5 10 3/uL Band Neutrophils Absolute 0.0 0.0-0.3 10 3/uL Lymphocytes Absolute Manual 0.06 1.20-3.80 10 3/uL Monocytes Absolute Manual 0.00 0.30-0.80 10 3/uL Eosinophils Absolute Manual 0.00 0.00-0.70 10 3/uL Basophils Abs Manual 0.00 0.00-0.10 1 0 3/uL Atypical Lymphocytes Abs Man 0.06 Ovalocytes 1+ Toxic Granulation 2+ Schistocytes 1+ Performing Lab: see note ML - [facility] LB PROF CHEM 8 (BAS METB) Reviewed date:05/29/2024 08:48:43 PM Interpretation: Performing Lab: Notes/Report: [facility] , Sodium 144 136-145 mmol/L Potassium 4.2 3.5-5.1 mmol/L Chloride 105 98-107 mmol/L Carbon Dioxide 38.4 21.0-32.0 mmol/L Anion Gap 4.8 Glucose 55 74-106 mg/dL Blood Urea Nitrogen 27.0 7.0-18.0 mg/dL Creatinine 0.93 0.70-1.30 mg/dL Estimated GFR ( Cierra >60 >=60 mL/min/1.73m 2 Estimated GFR (Non- Marti >60 >=60 mL/min/1.73m 2 BUN Creatinine Ratio 29.0 Calcium 9.4 8.5-10.1 mg/dL Performing Lab: see note ML - [facility] PROF CHEM 8 (REINA SAWYER) Reviewed date:04/01/2024 05:02:44 PM Interpretation: Performing Lab: Notes/Report: [facility] , Sodium 143 136-145 mmol/L Potassium 4.7 3.5-5.1 mmol/L Chloride 105 98-107 mmol/L Carbon Dioxide 37.4 21.0-32.0 mmol/L Anion Gap 5.3 Glucose 183 74-106 mg/dL Blood Urea Nitrogen 35.0 7.0-18.0 mg/dL Creatinine 1.31 0.70-1.30 mg/dL Estimated GFR ( Cierra >60 >=60 mL/min/1.73m 2 Estimated GFR (Non- Marti 52 >=60 mL/min/1.73m 2 BUN Creatinine Ratio 26.7 Calcium 9.3 8.5-10.1 mg/dL Performing Lab: see note ML - [facility] Erythrocyte Sedimentation Ra te Reviewed date:05/29/2024 08:48:43 PM Interpretation: Performing Lab: Notes/Report: [facility] , Erythrocyte Sedimentation Rate 3 <=20 mm/hr Performing Lab: see note ML - [facility] CBC AUTO DIFF Reviewed date:04/01/2024 05:02:44 PM Interpretation: Performing Lab: Notes/Report: [facility] , White Blood Count 6.8 4.0-11.0 10 3/uL Red Blood Count 4.60 4.70-6.10 10 6/uL Hemoglobin 13.5 14.0-18.0 g/dL Hematocrit 44.5 42.0-54.0 % Mean Corpuscular Volume 96.7 80.0-94.0 fL Mean Corpuscular Hemoglobin 29.3 25.9-34.0 pg Mean Corpuscular HGB Conc 30.3 29.9-35.2 g/dL Red Cell Distribution Width 16.1 11.0-15.0 % Platelet Count 166 150-450 10 3/uL Mean Platelet Volume 10.8 9.5-13.5 fL Performing Lab: see note ML - [facility] LB XR chest 1V Reviewed date:03/31/2024 08:30:21 PM Interpretation: Performing Lab: Notes/Report: Source Facility: [place] [address] [place] [address] XRay Report Signed Patient: KHADAR RAMOS MR#: [id number] : 1940 Acct:[id number] Age/Sex: 84 / M ADM Date: Loc: ER Attending Dr: Ordering Physician: Ilana Callejas M.D. Date of Service: 03/31/24 Procedure(s): XR chest 1V Accession Number(s): [id number] cc: Josy Sahu M.D.; Ilana Calleajs M.D. [place] [address] Patient Name: KHADAR RAMOS MRN: [id number] date: 1940 Sex: M Assigned Patient Location: ER Current Patient Location: ER Accession/Order Number: [id number] Exam Date: 03/31/2024 10:28 Report Date: 03/31/2024 11:06 At the request of: ILANA CALLEJAS Procedure: XR chest 1V EXAMINATION: XR chest 1V HISTORY: SOB COMPARISON: XR chest 03/04/2024 FINDINGS: LUNGS: Mild opacities within right lung base partially obscuring the diaphragm margin. Trace amount within left lateral costophrenic angle. VASCULATURE: No increased pulmonary vasculature. PLEURA: Suspect right pleural effusion. No pneumothorax. CARDIAC: Cardiomegaly. Stable cardiac pacer/AICD. MEDIASTINUM: No visible mass or adenopathy. BONES: No fracture or visible bone lesion. OTHER: Negative. XR/XR chest 1V IMPRESSION: 1. New mild right basilar infiltrates and likely small pleural effusion. 2. Trace amount of lingular infiltrates versus atelectasis. 3. Grossly stable cardiomegaly. Electronically authenticated by: SHANITA TINOCO Date: 03/31/2024 11:06 Dictated By: Shanita Tinoco M.D. Signed By: 03/31/24 1108 DD/ 05 TD/TT: Machine Presser: [place] [address] XRay Report Signed Patient: KHADAR RAMOS MR#: [id number] : 1940 Acct:[id number] Age/Sex: 84 / M ADM Date: Loc: ER Attending Dr: Ordering Physician: Ilana Callejas M.D. Date of Service: 03/31/24 Procedure(s): XR mor[address] st 1V Accession Number(s): [id number] cc: Josy Sahu M.D. ; Ilana Callejas M.D. [place] [address] Patient Name: KHADAR RAMOS MRN: [id number] date: 1940 Sex: M Assigned Patient Location: ER Current Patient Location: ER Accession/Order Number: [id number] Exam Date: 03/31/2024 10:28 Report Date: 03/31/2024 11:06 At the request of: ILANA CALLEJAS Procedure: XR chest 1V EXAMINATION: XR ches t 1V HISTORY: SOB COMPARISON: XR chest 03/04/2024 FINDINGS: LUNGS: Mild opacitie s within right lung base partially obscuring the diaphragm margin. Trace amount within left lateral costophrenic angle. VASCULATURE: No increased pulmonary vasculature. PLEURA: Suspect righ t pleural effusion. No pneumothorax. CARDIAC: Cardiomegal y. Stable cardiac pacer/AICD. MEDIASTINUM: No visible mass or adenopathy. BONES: No fracture o r visible bone lesion. OTHER: Negative. XR/XR chest 1V IMPRESSION: 1. New mild right basilar infiltrates and likely small pleural effusion. 2. Trace amount of lingular infiltrates versus atelectasis. 3. Grossly stable cardiomegaly. Electronically authenticated by: SHANITA TINOCO Date: 03/31/2024 11:06 Dictated By: Shanita Tinoco M.D. Signed By: 03/31/241107 DD/ 05 TD/TT: Machine Presser: UA RANDOM W or MICROSCOPIC Reviewed date:03/31/2024 08:30:21 PM Interpretation: Performing Lab: Notes/Report: [facility] , Color Urine LT. YELLOW YELLOW Clarity Urine CLEAR CLEAR Specific [place] Urine 1.015 1.005-1.025 pH Urine 6.0 5.0-9.0 Protein Urine NEGATIVE NEG/TRACE mg/dL Glucose Urine UA >=1000 NEGATIVE mg/dL Bilirubin Urine NEGATIVE NEGATIVE Ketones Urine NEGATIVE NEGATIVE mg/dL Blood Urine NEGATIVE NEGATIVE Nitrite Urine NEGATIVE NEGATIVE Urobilinogen Urine 0.2 0.2-1.0 EU/dL Leukocyte Esterase Urine NEGATIVE NEGATIVE WBC Urine NONE SEEN NONE SEEN #/HPF RBC Urine NONE SEEN 0-2 #/HPF Bacteria Urine NONE SEEN NONE SEEN #/HPF Mucus Urine NONE SEEN NONE SEEN Squamous Epithelial Cell Urine RARE NONE/RARE #/LPF Performing Lab: see note - [facility] LB PROF CHEM 8 (BAS METB) Reviewed date:03/31/2024 08:30:21 PM Interpretation: Performing Lab: Notes/Report: [facility] , Sodium 141 136-145 mmol/L Potassium 4.6 3.5-5.1 mmol/L Chloride 102 98-107 mmol/L Carbon Dioxide 35.6 21.0-32.0 mmol/L Anion Gap 8.0 Glucose 191 74-106 mg/dL Blood Urea Nitrogen 31.0 7.0-18.0 mg/dL Creatinine 1.33 0.70-1.30 mg/dL Estimated GFR ( Cierra >60 >=60 mL/min/1.73m 2 Estimated GFR (Non- Marti 51 >=60 mL/min/1.73m 2 BUN Creatinine Ratio 23.3 Calcium 9.3 8.5-10.1 mg/dL Performing Lab: see note ML - [facility] LB MAGNESIUM Reviewed date:03/31/2024 08:30:21 PM Interpretation: Performing Lab: Notes/Report: [facility] , Magnesium 1.8 1.8-2.4 mg/dL Performing Lab: see note - [facility] LB LIVER PROFILE Reviewed date:03/31/2024 08:30:21 PM Interpretation: Performing Lab: Notes/Report: [facility] , Bilirubin Total 1.1 0.2-1.0 mg/dL Bilirubin Direct 0.3 0.0-0.2 mg/dL Aspartate Amino Transferase 21 15-37 U/L Alanine Aminotransferase 22 16-63 U/L Alkaline Phosphatase 58 46-116 U/L Total Protein 6.3 6.4-8.2 g/dL Albumin Level 3.4 3.4-5.0 g/dL Globulin 2.9 Albumin Globulin Ratio 1.2 Performing Lab: see note ML - [facility] LB LACTATE or LACTIC ACID Reviewed date:03/31/2024 08:30:21 PM Interpretation: Performing Lab: Notes/Report: [facility] , Lactate/Lactic Acid 1.9 0.4-2.0 mmol/L Performing Lab: see note ML - [facility] LB VNCT Reviewed date:06/10/2024 07:14:32 PM Interpretation: Performing Lab:[facility], [address] [place] [address] PH:[phone] Notes/Report: Vancomycin Trough 12.7 10.0-20.0 ug/mL Dose amount, Unknown Date last dose, Unknown Time last dose, Unknown VNCT Reviewed date:06/13/2024 03:23:51 PM Interpretation: Performing Lab:[facility], [address] [place] [address] PH:[phone] Notes/Report: Vancomycin Trough 12.3 10.0-20.0 ug/mL Dose amount, Unknown Date last dose, Unknown Time last dose, Unknown CBC AUTO DIFF Reviewed date:03/31/2024 08:30:21 PM Interpretation: Performing Lab: Notes/Report: [facility] , White Blood Count 9.1 4.0-11.0 10 3/uL Red Blood Count 4.59 4.70-6.10 10 6/uL Hemoglobin 13.8 14.0-18.0 g/dL Hematocrit 44.6 42.0-54.0 % Mean Corpuscular Volume 97.2 80.0-94.0 fL Mean Corpuscular Hemoglobin 30.1 25.9-34.0 pg Mean Corpuscular HGB Conc 30.9 29.9-35.2 g/dL Red Cell Distribution Width 16.3 11.0-15.0 % Platelet Count 174 150-450 10 3/uL Mean Platelet Volume 10.8 9.5-13.5 fL Neutrophils Percent Auto 82.6 43.0-75.0 % Lymphocytes Percent Auto 4.7 20.5-60.0 % Monocytes Percent Auto 7.7 1.7-12.0 % Eosinophils Percent Auto 4.3 0.9-7.0 % Basophils Percent Auto 0.3 0.2-2.0 % Immature Granulocytes Pct Auto 0.4 0.0-0.5 % Neutrophils Absolute Auto 7.5 1.4-6.5 10 3/uL Lymphocytes Absolute Auto 0.4 1.2-3.8 10 3/uL Monocytes Absolute Auto 0.7 0.3-0.8 10 3/uL Eosinophils Absolute Auto 0.4 0.0-0.7 10 3/uL Basophils Absolute Auto 0.0 0.0-0.1 10 3/uL Immature Granulocytes Abs Auto 0.04 0.00-0.03 10 3/uL Performing Lab: see note - [facility] LB Manual Differential Reviewed date:06/23/2024 08:12:54 PM Interpretation: Performing Lab: Notes/Report: [facility] , Segmented Neutrophils % Manual 81.0 43.0-75.0 Lymphocytes Percent Manual 7.0 20.5-60.0 % Monocytes Percent Manual 11.0 1.7-12.0 % Eosinophils Percent Manual 1.0 0.9-7.0 % Basophils Percent Manual 0.0 0.2-2.0 % Segmented Neut Absolute Manual 7.12 1.4-6.5 10 3/uL Lymphocytes Absolute Manual 0.61 1.20-3.80 10 3/uL Monocytes Absolute Manual 0.96 0.30-0.80 10 3/uL Eosinophils Absolute Manual 0.08 0.00-0.70 10 3/uL Basophils Abs Manual 0.00 0.00-0.10 1 0 3/uL Performing Lab: see note - [facility] LB BNP Reviewed date:03/31/2024 08:30:21 PM Interpretation: Performing Lab: Notes/Report: [facility] , NT Pro B Type Natriuretic Pept 4704.0 <=1800.0 pg/mL RESULTS CALLED TO DR. CALLEJAS Performing Lab: see note - [facility] LB CBC AUTO DIFF Reviewed date:06/25/2024 07:51:18 PM Interpretation: Performing Lab: Notes/Report: [facility] , White Blood Count 8.8 4.0-11.0 10 3/uL Red Blood Count 3.89 4.70-6.10 10 6/uL Hemoglobin 11.4 14.0-18.0 g/dL Hematocrit 36.3 42.0-54.0 % Mean Corpuscular Volume 93.3 80.0-94.0 fL Mean Corpuscular Hemoglobin 29.3 25.9-34.0 pg Mean Corpuscular HGB Conc 31.4 29.9-35.2 g/dL Red Cell Distribution Width 16.1 11.0-15.0 % Platelet Count 254 150-450 10 3/uL Mean Platelet Volume 10.8 9.5-13.5 fL Performing Lab: see note ML - [facility] LB CA 19-9 Reviewed date:03/01/2024 09:04:34 PM Interpretation: Performing Lab: Notes/Report: [facility] , CA 19-9 70 0-35 U/mL [facility] Electrochemiluminescence Immunoassay (ECLIA) Values obtained with different assay methods or kits cannot be used interchangeably. Results cannot be interpreted as absolute evidence of the presence or absence of malignant disease. Performed at: [facility] [address] [id number] Glue Sprayer: Tim Stack PhD, Phone: [phone] Performing Lab: see note - [facility] LB PSA Total+% Free Reviewed date:03/01/2024 09:04:34 PM Interpretation: Performing Lab: Notes/Report: [facility] , Prostate Specific Ag <0.1 0.0-4.0 ng/mL [employer] ECLIA methodology. According to the [place] [employer], Serum PSA should decrease and remain at undetectable levels after radical prostatectomy. The AUA defines biochemical recurrence as an initial PSA value 0.2 ng/mL or greater followed by a subsequent confirmatory PSA value 0.2 ng/mL or greater. Values obtained with different assay methods or kits cannot be used interchangeably. Results cannot be interpreted as absolute evidence of the presence or absence of malignant disease. PSA, Free <0.02 N/A ng/mL [facility] ECLIA met hodology. % Free PSA TNP . % Unable to calculate result since non-numeric result obtained for component test. The table below lists the probability of prostate cancer for men with non-suspicious DEANN results and total PSA between 4 and 10 ng/mL, by patient age (Higinio et al, DONTE 1998, 279:1542). % Free PSA 50-64 yr 65-75 yr 0.00-10.00% 56% 55% 10.01-15.00% 24% 35% 15.01-20.00% 17% 23% 20.01-25.00% 10% 20% >25.00% 5% 9% Please note: Higinio et al did not make specific recommendations regarding the use of percent free PSA for any other population of men. Performed at: - [facility] [address] [id number] Glue Sprayer: Tim Stack PhD, Phone: [phone] Performing Lab: see note - [facility] LB PROF CHEM 8 (BAS METB) Reviewed date:02/25/2024 08:40:06 PM Interpretation: Performing Lab: Notes/Report: [facility] , Sodium 145 136-145 mmol/L Potassium 3.8 3.5-5.1 mmol/L Chloride 106 98-107 mmol/L Carbon Dioxide 33.3 21.0-32.0 mmol/L Anion Gap 9.5 Glucose 114 74-106 mg/dL Blood Urea Nitrogen 15.0 7.0-18.0 mg/dL Creatinine 1.05 0.70-1.30 mg/dL Estimated GFR ( Cierra >60 >=60 mL/min/1.73m 2 Estimated GFR (Non- Marti >60 >=60 mL/min/1.73m 2 BUN Creatinine Ratio 14.3 Calcium 9.3 8.5-10.1 mg/dL Performing Lab: see note ML - [facility] LB LIPID PROFILE Reviewed date:02/25/2024 08:40:06 PM Interpretation: Performing Lab: Notes/Report: [facility] , Triglycerides 78 <=150 mg/dL Cholesterol 113 <=200 mg/dL HDL Cholesterol 45 40-60 mg/dL > or =60 mg/dl - LOW CARDIOVASCULAR RISK <40 mg/dl - HIGH CARDIOVASCULAR RISK LDL Cholesterol Calculated 52.4 <100 mg/dl OPTIMAL 100-129 mg/dl NEAR OR ABOVE OPTIMAL 130-159 mg/dl BORDERLINE HIGH 160-189 mg/dl HIGH >190 mg/dl VERY HIGH VLDL CHOLESTEROL 15.6 Chol HDL Ratio 2.5 3.3 - 4.4 LOW RISK 4.4 - 7.1 AVERAGE RISK 7.1 - 11.0 MODERATE RISK >11.0 HIGH RISK Performing Lab: see note ML - [facility] LB CBC AUTO DIFF Reviewed date:01/16/2024 07:45:52 PM Interpretation: Performing Lab: Notes/Report: [facility] , White Blood Count 18.6 4.0-11.0 10 3/uL Red Blood Count 5.83 4.70-6.10 10 6/uL Hemoglobin 17.1 14.0-18.0 g/dL Hematocrit 54.6 42.0-54.0 % Mean Corpuscular Volume 93.7 80.0-94.0 fL Mean Corpuscular Hemoglobin 29.3 25.9-34.0 pg Mean Corpuscular HGB Conc 31.3 29.9-35.2 g/dL Red Cell Distribution Width 15.9 11.0-15.0 % Platelet Count 211 150-450 10 3/uL Mean Platelet Volume 11.1 9.5-13.5 fL Neutrophils Percent Auto 93.9 43.0-75.0 % Lymphocytes Percent Auto 1.4 20.5-60.0 % Monocytes Percent Auto 4.0 1.7-12.0 % Eosinophils Percent Auto 0.0 0.9-7.0 % Basophils Percent Auto 0.1 0.2-2.0 % Immature Granulocytes Pct Auto 0.6 0.0-0.5 % Neutrophils Absolute Auto 17.5 1.4-6.5 10 3/uL Lymphocytes Absolute Auto 0.3 1.2-3.8 10 3/uL Monocytes Absolute Auto 0.7 0.3-0.8 10 3/uL Eosinophils Absolute Auto 0.0 0.0-0.7 10 3/uL Basophils Absolute Auto 0.0 0.0-0.1 10 3/uL Immature Granulocytes Abs Auto 0.11 0.00-0.03 10 3/uL Performing Lab: see note ML - [facility] LB CBC AUTO DIFF Reviewed date:01/15/2024 06:43:26 PM Interpretation: Performing Lab: Notes/Report: [facility] , White Blood Count 17.8 4.0-11.0 10 3/uL Red Blood Count 5.10 4.70-6.10 10 6/uL Hemoglobin 15.0 14.0-18.0 g/dL Hematocrit 47.5 42.0-54.0 % Mean Corpuscular Volume 93.1 80.0-94.0 fL Mean Corpuscular Hemoglobin 29.4 25.9-34.0 pg Mean Corpuscular HGB Conc 31.6 29.9-35.2 g/dL Red Cell Distribution Width 15.5 11.0-15.0 % Platelet Count 212 150-450 10 3/uL Mean Platelet Volume 10.7 9.5-13.5 fL Neutrophils Percent Auto 94.0 43.0-75.0 % Lymphocytes Percent Auto 1.3 20.5-60.0 % Monocytes Percent Auto 3.8 1.7-12.0 % Eosinophils Percent Auto 0.0 0.9-7.0 % Basophils Percent Auto 0.1 0.2-2.0 % Immature Granulocytes Pct Auto 0.8 0.0-0.5 % Neutrophils Absolute Auto 16.7 1.4-6.5 10 3/uL Lymphocytes Absolute Auto 0.2 1.2-3.8 10 3/uL Monocytes Absolute Auto 0.7 0.3-0.8 10 3/uL Eosinophils Absolute Auto 0.0 0.0-0.7 10 3/uL Basophils Absolute Auto 0.0 0.0-0.1 10 3/uL Immature Granulocytes Abs Auto 0.14 0.00-0.03 10 3/uL Performing Lab: see note ML - [facility] LB FERRITIN (Not yet reviewed b y provider) Interpretation: Performing Lab: Notes/Report: [facility] , Ferritin 337.0 26.0-388.0 ng/mL Performing Lab: see note ML - [facility] LB IRON AND TIBC (Not yet revie wed by provider) Interpretation: Performing Lab: Notes/Report: [facility] , Iron 50.0 65.0-175.0 ug/dL Total Iron Binding Capacity 264.0 250.0-450.0 ug/dL Percent Iron Saturation 18.9 Performing Lab: see note ML - [facility] LB CBC AUTO DIFF (Not yet revie wed by provider) Interpretation: Performing Lab: Notes/Report: [facility] , White Blood Count 12.6 4.0-11.0 10 3/uL Red Blood Count 3.37 4.70-6.10 10 6/uL Hemoglobin 10.4 14.0-18.0 g/dL Hematocrit 33.0 42.0-54.0 % Mean Corpuscular Volume 97.9 80.0-94.0 fL Mean Corpuscular Hemoglobin 30.9 25.9-34.0 pg Mean Corpuscular HGB Conc 31.5 29.9-35.2 g/dL Red Cell Distribution Width 19.9 11.0-15.0 % Platelet Count 563 150-450 10 3/uL Mean Platelet Volume 10.0 9.5-13.5 fL Performing Lab: see note ML - [facility] LB PROF 14(COMP METB) Reviewed date:01/14/2024 06:55:11 PM Interpretation: Performing Lab: Notes/Report: [facility] , Sodium 149 136-145 mmol/L Potassium 2.6 3.5-5.1 mmol/L RESULTS CALLED TO BRENNON WONG RN Chloride 101 98-107 mmol/L Carbon Dioxide 40.9 21.0-32.0 mmol/L Anion Gap 9.7 Glucose 125 74-106 mg/dL Blood Urea Nitrogen 47.0 7.0-18.0 mg/dL Creatinine 1.35 0.70-1.30 mg/dL Estimated GFR ( Cierra >60 >=60 mL/min/1.73m 2 Estimated GFR (Non- Marti 51 >=60 mL/min/1.73m 2 BUN Creatinine Ratio 34.8 Calcium 9.5 8.5-10.1 mg/dL Bilirubin Total 1.0 0.2-1.0 mg/dL Aspartate Amino Transferase 14 15-37 U/L Alanine Aminotransferase 25 16-63 U/L Alkaline Phosphatase 50 46-116 U/L Total Protein 6.0 6.4-8.2 g/dL Albumin Level 3.0 3.4-5.0 g/dL Globulin 3.0 Albumin Globulin Ratio 1.0 Performing Lab: see note ML - [facility] LB POTASSIUM Reviewed date:01/14/2024 06:55:11 PM Interpretation: Performing Lab: Notes/Report: [facility] , Potassium 3.3 3.5-5.1 mmol/L Performing Lab: see note ML - [facility] LB CBC AUTO DIFF Reviewed date:01/14/2024 06:55:11 PM Interpretation: Performing Lab: Notes/Report: [facility] , White Blood Count 17.9 4.0-11.0 10 3/uL Red Blood Count 5.16 4.70-6.10 10 6/uL Hemoglobin 15.1 14.0-18.0 g/dL Hematocrit 47.7 42.0-54.0 % Mean Corpuscular Volume 92.4 80.0-94.0 fL Mean Corpuscular Hemoglobin 29.3 25.9-34.0 pg Mean Corpuscular HGB Conc 31.7 29.9-35.2 g/dL Red Cell Distribution Width 15.5 11.0-15.0 % Platelet Count 227 150-450 10 3/uL Mean Platelet Volume 10.7 9.5-13.5 fL Neutrophils Percent Auto 94.3 43.0-75.0 % Lymphocytes Percent Auto 1.3 20.5-60.0 % Monocytes Percent Auto 3.2 1.7-12.0 % Eosinophils Percent Auto 0.0 0.9-7.0 % Basophils Percent Auto 0.1 0.2-2.0 % Immature Granulocytes Pct Auto 1.1 0.0-0.5 % Neutrophils Absolute Auto 16.9 1.4-6.5 10 3/uL Lymphocytes Absolute Auto 0.2 1.2-3.8 10 3/uL Monocytes Absolute Auto 0.6 0.3-0.8 10 3/uL Eosinophils Absolute Auto 0.0 0.0-0.7 10 3/uL Basophils Absolute Auto 0.0 0.0-0.1 10 3/uL Immature Granulocytes Abs Auto 0.20 0.00-0.03 10 3/uL Performing Lab: see note ML - [facility] LB BNP Reviewed date:01/14/2024 06:55:11 PM Interpretation: Performing Lab: Notes/Report: [facility] , NT Pro B Type Natriuretic Pept 2636.0 <=1800.0 pg/mL RESULTS CALLED TO BRENNON WONG RN Performing Lab: see note ML - [facility] LB XR chest 2V Reviewed date:01/13/2024 05:32:26 PM Interpretation: Performing Lab: Notes/Report: Source Facility: [address] [address] XRay Report Signed Patient: KHADAR RAMOS MR#: [id number] : 1940 Acct:[id number] Age/Sex: 83 / M ADM Date: 01/10/24 Loc: ICU 274-[address]: Josy Sahu M.D. Ordering Physician: Josy Sahu M.D. Date of Service: 01/13/24 Procedure(s): XR chest 2V Accession Number(s): [id number] cc: Josy Sahu M.D. [place] [address] Patient Name: KHADAR RAMOS MRN: [id number] date: 1940 Sex: M Assigned Patient Location: ICU Current Patient Location: ICU Accession/Order Number: [id number] Exam Date: 01/13/2024 13:35 Report Date: 01/13/2024 15:05 At the request of: JOSY SAHU Procedure: XR chest 2V EXAM: XR chest 2V , 01/13/2024 HISTORY: hypoxia COMPARISON: Prior CT scan from 01/11/2024 and chest x-ray from 01/10/2024 TECHNIQUE: X-ray of the chest, frontal and lateral views. FINDINGS: Mild cardiomegaly. Mild atherosclerotic calcification of the aortic arch. Mild prominence of the bronchovascular markings with bilateral small pleural effusions. Left upper lobe soft tissue density measuring approximately 3 cm consistent with mass seen on the CT scan. Subsegmental atelectasis in the lung bases, left more than right. No acute osseous findings. XR/XR chest 2V IMPRESSION: Left upper lobe mass, concerning for malignancy. Mild cardiomegaly, mild pulmonary congestion and small pleural effusions. Electronically authenticated by: LIA QUIÑONEZ Date: 01/13/2024 15:05 Dictated By: Lia Quiñonez M.D. Signed By: 01/13/24 1508 DD/ 1503 TD/TT: Machine Presser: The [address] [address] XRay Report Signed Patient: KHADAR RAMOS MR#: [id number] : 1940 Acct:[id number] Age/Sex: 83 / M ADM Date: 01/10/24 Loc: ICU 274-[address]: Bhupendra Sahu M.D. Ordering Physician: Josy Sahu M.D. Date of Service: 01/13/24 Procedure(s): XR mor[address] st 2V Accession Number(s): [id number] cc: Josy Sahu M.D. The [address] [address] Patient Name: KHADAR RAMOS MRN: [id number] date: 1940 Sex: M Assigned Patient Location: ICU Current Patient Location: ICU Accession/Order Number: [id number] Exam Date: 13:35 Report Date: 01/13/2024 15:05 At the request of: JOSY SAHU Procedure: XR chest 2V EXAM: XR chest 2V , 01/13/2024 HISTORY: hypoxia COMPARISON: Prior CT scan from 01/11/2024 and chest x-ray from 01/10/2024 TECHNIQUE: X-ray of the chest, frontal and lateral views. FINDINGS: Mild cardiomegaly. Mild atherosclerotic calcification of the aortic arch. Mild prominenc e of the bronchovascular markings with bilateral small pleural effusions. Left upper lobe soft tissue density measuring approximately 3 cm consistent with mass seen on the CT scan. Subsegmental atelectasis in the lung bases, left mor e than right. No acute osseous findings. XR/XR chest 2V IMPRESSION: Left upper lobe mass , concerning for malignancy. Mild cardiomegaly, mild pulmonary congestion and small pleural effusions. Electronically authenticated by: LIA QUIÑONEZ Date: 01/13/2024 15:05 Dictated By: Lia Quiñonez M.D. Signed By: 01/13/24 1508 DD/ 1505 TD/TT: Machine Presser: Blood Culture 2 Reviewed date:07/11/2024 01:11:18 PM Interpretation: Performing Lab: Notes/Report: [facility] , Blood Culture 2 See Below For Report Blood Culture 2 NG5D NO GROWTH AT 5 DAYS.^NO GROWTH AT 5 DAYS. Performing Lab: see note - [facility] LB Blood Culture 1 Reviewed date:07/11/2024 01:11:18 PM Interpretation: Performing Lab: Notes/Report: [facility] , Blood Culture 1 See Below For Report Blood Culture 1 NG5D NO GROWTH AT 5 DAYS.^NO GROWTH AT 5 DAYS. Performing Lab: see note - [facility] LB UA RANDOM W or MICROSCOPIC Reviewed date:01/14/2024 06:55:11 PM Interpretation: Performing Lab: Notes/Report: [facility] , Color Urine LT. YELLOW YELLOW Clarity Urine CLEAR CLEAR Specific [place] Urine 1.010 1.005-1.025 pH Urine 5.5 5.0-9.0 Protein Urine NEGATIVE NEG/TRACE mg/dL Glucose Urine UA >=1000 NEGATIVE mg/dL Bilirubin Urine NEGATIVE NEGATIVE Ketones Urine NEGATIVE NEGATIVE mg/dL Blood Urine NEGATIVE NEGATIVE Nitrite Urine NEGATIVE NEGATIVE Urobilinogen Urine 0.2 0.2-1.0 EU/dL Leukocyte Esterase Urine NEGATIVE NEGATIVE WBC Urine 0-2 NONE SEEN #/HPF RBC Urine 0-2 0-2 #/HPF Bacteria Urine NONE SEEN NONE SEEN #/HPF Mucus Urine NONE SEEN NONE SEEN Squamous Epithelial Cell Urine NONE SEEN NONE/RARE #/LPF Crystals Seen? None Seen None Seen #/HPF Cast Seen? SEEN NONE SEEN #/LPF Hyaline Casts Urine RARE Performing Lab: see note - [facility] LB PROF 14(COMP METB) Reviewed date:01/13/2024 05:32:26 PM Interpretation: Performing Lab: Notes/Report: [facility] , Sodium 148 136-145 mmol/L Potassium 3.5 3.5-5.1 mmol/L Chloride 102 98-107 mmol/L Carbon Dioxide 38.4 21.0-32.0 mmol/L Anion Gap 11.1 Glucose 175 74-106 mg/dL Blood Urea Nitrogen 46.0 7.0-18.0 mg/dL Creatinine 1.32 0.70-1.30 mg/dL Estimated GFR ( Cierra >60 >=60 mL/min/1.73m 2 Estimated GFR (Non- Marti 52 >=60 mL/min/1.73m 2 BUN Creatinine Ratio 34.8 Calcium 9.6 8.5-10.1 mg/dL Bilirubin Total 0.8 0.2-1.0 mg/dL Aspartate Amino Transferase 11 15-37 U/L Alanine Aminotransferase 21 16-63 U/L Alkaline Phosphatase 51 46-116 U/L Total Protein 6.4 6.4-8.2 g/dL Albumin Level 3.3 3.4-5.0 g/dL Globulin 3.1 Albumin Globulin Ratio 1.1 Performing Lab: see note ML - [facility] LB CBC AUTO DIFF Reviewed date:01/13/2024 05:32:26 PM Interpretation: Performing Lab: Notes/Report: [facility] , White Blood Count 19.8 4.0-11.0 10 3/uL Red Blood Count 5.11 4.70-6.10 10 6/uL Hemoglobin 15.1 14.0-18.0 g/dL Hematocrit 47.9 42.0-54.0 % Mean Corpuscular Volume 93.7 80.0-94.0 fL Mean Corpuscular Hemoglobin 29.5 25.9-34.0 pg Mean Corpuscular HGB Conc 31.5 29.9-35.2 g/dL Red Cell Distribution Width 15.8 11.0-15.0 % Platelet Count 219 150-450 10 3/uL Mean Platelet Volume 10.4 9.5-13.5 fL Neutrophils Percent Auto 95.5 43.0-75.0 % Lymphocytes Percent Auto 1.3 20.5-60.0 % Monocytes Percent Auto 2.3 1.7-12.0 % Eosinophils Percent Auto 0.0 0.9-7.0 % Basophils Percent Auto 0.1 0.2-2.0 % Immature Granulocytes Pct Auto 0.8 0.0-0.5 % Neutrophils Absolute Auto 18.9 1.4-6.5 10 3/uL Lymphocytes Absolute Auto 0.3 1.2-3.8 10 3/uL Monocytes Absolute Auto 0.5 0.3-0.8 10 3/uL Eosinophils Absolute Auto 0.0 0.0-0.7 10 3/uL Basophils Absolute Auto 0.0 0.0-0.1 10 3/uL Immature Granulocytes Abs Auto 0.16 0.00-0.03 10 3/uL Performing Lab: see note ML - [facility] LB PROF 14(COMP METB) Reviewed date:06/25/2024 07:51:18 PM Interpretation: Performing Lab: Notes/Report: [facility] , Sodium 139 136-145 mmol/L Potassium 4.7 3.5-5.1 mmol/L Chloride 101 98-107 mmol/L Carbon Dioxide 34.5 21.0-32.0 mmol/L Anion Gap 8.2 Glucose 230 74-106 mg/dL Blood Urea Nitrogen 19.0 7.0-18.0 mg/dL Creatinine 1.20 0.70-1.30 mg/dL Estimated GFR ( Cierra >60 >=60 mL/min/1.73m 2 Estimated GFR (Non- Marti 58 >=60 mL/min/1.73m 2 BUN Creatinine Ratio 15.8 Calcium 9.4 8.5-10.1 mg/dL Bilirubin Total 0.5 0.2-1.0 mg/dL Aspartate Amino Transferase 19 15-37 U/L Alanine Aminotransferase 31 16-63 U/L Alkaline Phosphatase 70 46-116 U/L Total Protein 5.8 6.4-8.2 g/dL Albumin Level 2.8 3.4-5.0 g/dL Globulin 3.0 Albumin Globulin Ratio 0.9 Performing Lab: see note - [facility] LB MAGNESIUM Reviewed date:06/25/2024 07:51:18 PM Interpretation: Performing Lab: Notes/Report: [facility] , Magnesium 1.4 1.8-2.4 mg/dL Performing Lab: see note - [facility] LB BNP Reviewed date:01/13/2024 05:32:26 PM Interpretation: Performing Lab: Notes/Report: [facility] , NT Pro B Type Natriuretic Pept 2675.0 <=1800.0 pg/mL RESULTS CALLED TO ICU Catherine Lebron RN @BY Pawel Villarreal MLT at 0631 Performing Lab: see note - [facility] BLOOD GASES BTY Reviewed date:01/13/2024 05:32:26 PM Interpretation: Performing Lab: Notes/Report: [facility] , pH ABG 7.477 7.350-7.450 ABG PCO2 51.0 35.0-45.0 mmHg RESULTS CALLED TO MALDONADO SIMMONS RN @BY Sofia Niño at 1336 PO2 ABG 56.0 80.0-100.0 mmHg RESULTS CALLED TO MALDONADO SIMMONS RN @BY Sofia Niño at 1336 HCO3 ABG 37.6 22.0-26.0 mmol/L Base Excess ABG 14.1 -2.0-2.0 mmol/L Oxygen Saturation ABG 87.9 Charles Test POSITIVE POSITIVE O2 Mode N. CANNULA Liters per Minute 3 Puncture Site R. RADIAL Performing Lab: see note - [facility] LB PROF 14(COMP METB) Reviewed date:01/12/2024 04:10:29 PM Interpretation: Performing Lab: Notes/Report: [facility] , Sodium 149 136-145 mmol/L Potassium 3.9 3.5-5.1 mmol/L Chloride 107 98-107 mmol/L Carbon Dioxide 33.8 21.0-32.0 mmol/L Anion Gap 12.1 Glucose 179 74-106 mg/dL Blood Urea Nitrogen 49.0 7.0-18.0 mg/dL Creatinine 1.41 0.70-1.30 mg/dL Estimated GFR ( Cierra 59 >=60 mL/min/1.73m 2 Estimated GFR (Non- Marti 48 >=60 mL/min/1.73m 2 BUN Creatinine Ratio 34.8 Calcium 8.8 8.5-10.1 mg/dL Bilirubin Total 0.7 0.2-1.0 mg/dL Aspartate Amino Transferase 10 15-37 U/L Alanine Aminotransferase 22 16-63 U/L Alkaline Phosphatase 48 46-116 U/L Total Protein 5.9 6.4-8.2 g/dL Albumin Level 3.1 3.4-5.0 g/dL Globulin 2.8 Albumin Globulin Ratio 1.1 Performing Lab: see note ML - [facility] LB CBC AUTO DIFF Reviewed date:01/12/2024 04:10:29 PM Interpretation: Performing Lab: Notes/Report: [facility] , White Blood Count 17.8 4.0-11.0 10 3/uL Red Blood Count 4.69 4.70-6.10 10 6/uL Hemoglobin 14.0 14.0-18.0 g/dL Hematocrit 44.5 42.0-54.0 % Mean Corpuscular Volume 94.9 80.0-94.0 fL Mean Corpuscular Hemoglobin 29.9 25.9-34.0 pg Mean Corpuscular HGB Conc 31.5 29.9-35.2 g/dL Red Cell Distribution Width 15.9 11.0-15.0 % Platelet Count 211 150-450 10 3/uL Mean Platelet Volume 10.9 9.5-13.5 fL Neutrophils Percent Auto 96.4 43.0-75.0 % Lymphocytes Percent Auto 1.3 20.5-60.0 % Monocytes Percent Auto 1.6 1.7-12.0 % Eosinophils Percent Auto 0.0 0.9-7.0 % Basophils Percent Auto 0.1 0.2-2.0 % Immature Granulocytes Pct Auto 0.6 0.0-0.5 % Neutrophils Absolute Auto 17.1 1.4-6.5 10 3/uL Lymphocytes Absolute Auto 0.2 1.2-3.8 10 3/uL Monocytes Absolute Auto 0.3 0.3-0.8 10 3/uL Eosinophils Absolute Auto 0.0 0.0-0.7 10 3/uL Basophils Absolute Auto 0.0 0.0-0.1 10 3/uL Immature Granulocytes Abs Auto 0.11 0.00-0.03 10 3/uL Performing Lab: see note - [facility] LB BNP Reviewed date:01/12/2024 04:10:29 PM Interpretation: Performing Lab: Notes/Report: [facility] , NT Pro B Type Natriuretic Pept 2607.0 <=1800.0 pg/mL RESULTS CALLED TO ICU Maria Del Carmen Dias RN @BY Pawel Villarreal MLT at 0631 Performing Lab: see note - [facility] LB Blood Culture 2 Reviewed date:06/01/2024 04:21:11 PM Interpretation: Performing Lab: Notes/Report: Comment 3rd for IE w/u RIGHT WRIST - 3RD SET [facility] , Blood Culture 2 See Below For Report Blood Culture 2 NG5D NO GROWTH AT 5 DAYS.^NO GROWTH AT 5 DAYS. Performing Lab: see note - [facility] LB Manual Differential Reviewed date:05/26/2024 09:15:32 PM Interpretation: Performing Lab: Notes/Report: [facility] , Segmented Neutrophils % Manual 91.0 43.0-75.0 Lymphocytes Percent Manual 5.0 20.5-60.0 % Monocytes Percent Manual 4.0 1.7-12.0 % Eosinophils Percent Manual 0.0 0.9-7.0 % Basophils Percent Manual 0.0 0.2-2.0 % Segmented Neut Absolute Manual 12.28 1.4-6.5 10 3/uL Lymphocytes Absolute Manual 0.67 1.20-3.80 10 3/uL Monocytes Absolute Manual 0.54 0.30-0.80 10 3/uL Eosinophils Absolute Manual 0.00 0.00-0.70 10 3/uL Basophils Abs Manual 0.00 0.00-0.10 1 0 3/uL Anisocytosis 1+ Performing Lab: see note - [facility] Blood Culture 2 Reviewed date:06/01/2024 04:21:11 PM Interpretation: Performing Lab: Notes/Report: [facility] , Blood Culture 2 See Below For Report Blood Culture 2 NG5D NO GROWTH AT 5 DAYS.^NO GROWTH AT 5 DAYS. Performing Lab: see note - [facility] CA echo doppler complete Reviewed date:01/12/2024 04:10:30 PM Interpretation: Performing Lab: Notes/Report: Source Facility: [place] [address] [place] [address] Cardiology Report Signed Patient: KHADAR RAMOS MR#: [id number] : 1940 Acct:[id number] Age/Sex: 83 / M ADM Date: 01/10/24 Loc: ICU 274-[address]: Josy Sahu M.D. Ordering Physician: Josy Sahu M.D. Date of Service: 01/10/24 Procedure(s): CA echo doppler complete Accession Number(s): [id number] cc: Josy Sahu M.D. Patient Name: KHADAR RAMOS MR#: [id number] : 1940 Exam Date: 01/10/2024 Ordering Doctor: DR JOSY SAHU . ECHOCARDIOGRAM REPORT PROCEDURE: CA ECHO DOPPLER COMPLETE INDICATIONS: Dyspnea, elevated BNP, atrial fibrillation, CHF, COPD diabetes, hypertension COMPARISON: None. DESCRIPTION: COMPLETE ECHOCARDIOGRAM Real-time transthoracic echocardiography with 2D, M-mode, spectral and color flow Doppler performed. QUALITY: Technical quality was good. LEFT VENTRICLE: Normal chamber size. Mild concentric left ventricular hypertrophy. LV EF: It was difficult to evaluate LV systolic function due to poor acoustic windows, but appears reduced. Recommend to repeat 2 D echo with contrast DIASTOLIC: Not adequately assessed due to heart rhythm. ATRIAL SEPTUM: Visually appears intact. LEFT ATRIUM: Severe dilatation. RIGHT ATRIUM: Severe dilatation. RIGHT VENTRICLE: Severe dilatation. Normal right ventricular systolic function. TRICUSPID VALVE: Normal mobility and thickness. No stenosis with mild regurgitation. Doppler studies reveal severely (>60) elevated right sided pressures. RVSP 64 mmHg MITRAL VALVE: Normal mobility and thickness. No evidence of mitral valve stenosis. There is no mitral annular calcification. Trivial mitral regurgitation. AORTIC VALVE: Normal trileaflet appearance. Thickened aortic valve. Normal leaflet mobility. Mild aortic stenosis, MARLEEN 1.74 cm2. No aortic regurgitation. AORTIC ROOT: Normal diameter and appearance. Ascending aorta is normal in size PULMONIC VALVE: Normal thickness and mobility. No stenosis. Mild regurgitation. PERICARDIUM: No evidence of pericardial effusion. IVC: IVC is dilated (2.3 cm), does not collapse. PLEURA: CONCLUSION: Normal left ventricle chamber size. Mild concentric left ventricular hypertrophy. It was difficult to evaluate LV systolic function due to poor acoustic windows, but appears reduced. Recommend to repeat 2 D echo with contrast. Severe biatrial dilatation. Severe right ventricle dilatation. Normal right ventricular systolic function Severely elevated right sided pressures. 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 Adult Echocardiography Procedure Report Left Ventricle LVEDD (3.7 - 5.6 cm): 4.32 cm LVESD (2.2 - 4.0 cm): 2.88 cm LVIVS thickness (0.6 - 1.2 cm): 1.31 cm LVPW thickness (0.5 - 1.0 cm): 1.21 cm e': E - e': LVOT Max Gradient: 1 mm[Hg] LVOT Area (cm2): Peak Velocity (LVOT): 57.80 cm/s Mean Velocity (LVOT): LVOT Diameter 2.10 cm Left Ventricular Ejection Fraction: 62.30 % Left Atrium LA Volume Index (2D A2C): Left Atrium Systolic Dimension: 4.80 cm Mitral Valve MV E to A Ratio: MV Max Gradient: MV Mean Gradient: Mitral Valve A-Wave Peak Velocity: Mitral Valve E-Wave Peak Velocity: 108.00 cm/s Cardiovascular Orifice Area: Right Ventricle RV Internal Diastolic Dimension: Aorta AO Root Diam: 3.60 cm Ascending Ao Diam: Aortic Valve AoV Area (Peak Kwan): 1.74 cm2 AoV Area (VTI): Deceleration [place]: Pressure Half-Time: Peak Velocity(Antegrade Flow): 115.00 cm/s Peak Gradient(Antegrade Flow): 5 mm[Hg] Mean Velocity(Antegrade Flow): Mean Gradient(Antegrade Flow): Velocity Time Integral: Tricuspid Valve Peak Velocity (Regurgitant Flow): 349.00 cm/s Peak Velocity: Pulmonic Valve Mean Gradient: Mean Velocity: Peak Velocity: 89.60 cm/s, 76.00 cm/s Peak Gradient: 3 mm[Hg] Right Atrium Right Atrium Systolic Pressure: Dictated by: Chris Strange MD on 01/11/2024 at 19:57 Approved by: Chris Strange MD on 01/11/2024 at 20:10 Dictated By: Chris Strange M.D. Signed By: 01/11/242010 DD/ 09 TD/TT: Machine Presser: [place] [address] Cardiology Report Signed Patient: KHADAR RAMOS MR#: [id number] : 1940 Acct:[id number] Age/Sex: 83 / M ADM Date: 01/10/24 Loc: ICU 274-[address]: Bhupendra Sahu M.D. Ordering Physician: Josy Sahu M.D. Date of Service: 01/10/24 Procedure(s): CA ech o doppler complete Accession Number(s): [id number] cc: Josy Sahu M.D. Patient Name: KHADAR RAMOS MR#: [id number] : 1940 Exam Date: 01/10/2024 Ordering Doctor: DR JOSY SAHU . ECHOCARDIOGRAM REPORT PROCEDURE: CA ECHO DOPPLER COMPLETE INDICATIONS: Dyspnea , elevated BNP, atrial fibrillation, CHF, COPD diabetes, hypertension COMPARISON: None. DESCRIPTION: COMPLET E ECHOCARDIOGRAM Real-time transthoracic echocardiography wit h 2D, M-mode, spectral and color flow Doppler performed. QUALITY: Technical quality was good. LEFT VENTRICLE: Norm al chamber size. Mild concentric left ventricular hypertrophy. LV EF: It was difficult to evaluate LV systolic function due to poor acoustic windows, bu t appears reduced. Recommend to repeat 2 D echo with contrast DIASTOLIC: Not adequately assessed due to heart rhythm. ATRIAL SEPTUM: Visually appears intact. LEFT ATRIUM: Severe dilatation. RIGHT ATRIUM: Severe dilatation. RIGHT VENTRICLE: Severe dilatation. Normal right ventricular systolic function. TRICUSPID VALVE: Normal mobility and thickness. No stenosis with mild regurgitation. Doppl er studies reveal severely (>60) elevated right sided pressures. RVSP 64 mmHg MITRAL VALVE: Normal mobility and thickness. No evidence of mitral valve stenosis. There is n o mitral annular calcification. Trivial mitral regurgitation. AORTIC VALVE: Samantha l trileaflet appearance. Thickened aortic valve. Normal leaflet mobility. Mild aortic stenosis, MARLEEN 1.74 cm2. No aortic regurgitation. AORTIC ROOT: Normal diameter and appearance. Ascending aorta is normal in size PULMONIC VALVE: Norm al thickness and mobility. No stenosis. Mild regurgitation. PERICARDIUM: No evidence of pericardial effusion. IVC: IVC is dilated (2.3 cm), does not collapse. PLEURA: CONCLUSION: Normal left ventricl e chamber size. Mild concentric left ventricular hypertrophy. It was difficult to evaluate LV systolic function due to poor acoustic windows, but appears reduced. Recommend to repeat 2 D echo with contrast. Severe biatrial dilatation. Severe right ventric le dilatation. Normal right ventricular systolic function Severely elevated right sided pressures. RVSP 64 mmHg Mild aortic stenosis , MARLEEN 1.74 cm2 IVC is dilated (2.3 cm), does not collapse C/W elevated central venous pressure, RAP 15 mmHg. Adult Echocardiograp hy Procedure Report Left Ventricle LVEDD (3.7 - 5.6 cm) : 4.32 cm LVESD (2.2 - 4.0 cm) : 2.88 cm LVIVS thickness (0.6 - 1.2 cm): 1.31 cm LVPW thickness (0.5 - 1.0 cm): 1.21 cm e': E - e': LVOT Max Gradient: 1 mm[Hg] LVOT Area (cm2): Peak Velocity (LVOT) : 57.80 cm/s Mean Velocity (LVOT): LVOT Diameter 2.10 cm Left Ventricular Ejection Fraction: 62.30 % Left Atrium LA Volume Index (2D A2C): Left Atrium Systolic Dimension: 4.80 cm Mitral Valve MV E to A Ratio: MV Max Gradient: MV Mean Gradient: Mitral Valve A-Wave Peak Velocity: Mitral Valve E-Wave Peak Velocity: 108.00 cm/s Cardiovascular Orifi ce Area: Right Ventricle RV Internal Diastoli c Dimension: Aorta AO Root Diam: 3.60 cm Ascending Ao Diam: Aortic Valve AoV Area (Peak Kwan): 1.74 cm2 AoV Area (VTI): Deceleration [place]: Pressure Half-Time: Peak Velocity(Antegrade Flow): 115.00 cm/s Peak Gradient(Antegrade Flow): 5 mm[Hg] Mean Velocity(Antegrade Flow): Mean Gradient(Antegrade Flow): Velocity Time Integral: Tricuspid Valve Peak Velocity (Regurgitant Flow): 349.00 cm/s Peak Velocity: Pulmonic Valve Mean Gradient: Mean Velocity: Peak Velocity: 89.60 cm/s, 76.00 cm/s Peak Gradient: 3 mm[Hg] Right Atrium Right Atrium Systoli c Pressure: Dictated by: Chris Srtange MD on 01/11/2024 at 19:57 Approved by: Chris Strange MD on 01/11/2024 at 20:10 Dictated By: Chris Strange M.D. Signed By: 01/11/242010 DD/ 09 TD/TT: Machine Presser: ECG 12 lead Reviewed date:01/12/2024 04:10:30 PM Interpretation: Performing Lab: Notes/Report: Source Facility: [place] [address] [place] [address] Electrocardiograph Report Signed Patient: KHADAR RAMOS MR#: [id number] : 1940 Acct:[id number] Age/Sex: 83 / M ADM Date: 01/10/24 Loc: MS 230-[address]: Josy Sahu M.D. Ordering Physician: Marjorie Bhardwaj D.O. 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 Signed By: 01/11/24601 DD/ 1128 TD/TT: Machine Presser: [place] [address] Electrocardiograph Report Signed Patient: KHADAR RAMOS MR#: [id number] : 1940 Acct:[id number] Age/Sex: 83 / M ADM Date: 01/10/24 Loc: MS 230-[address]: Bhupendra Sahu M.D. Ordering Physician: Marjorie Bhardwaj D.O. 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 Signed By: 01/11/24 0602 DD/ 1128 TD/TT: Machine Presser: Blood Culture 2 Reviewed date:01/15/2024 06:43:26 PM Interpretation: Performing Lab: Notes/Report: [facility] , Blood Culture 2 See Below For Report Blood Culture 2 NG5D NO GROWTH AT 5 DAYS. Performing Lab: see note ML - [facility] LB Blood Culture 1 Reviewed date:01/15/2024 06:43:26 PM Interpretation: Performing Lab: Notes/Report: [facility] , Blood Culture 1 See Below For Report Blood Culture 1 NG5D NO GROWTH AT 5 DAYS. Performing Lab: see note ML - [facility] LB CBC AUTO DIFF Reviewed date:06/23/2024 08:12:54 PM Interpretation: Performing Lab: Notes/Report: [facility] , White Blood Count 8.8 4.0-11.0 10 3/uL Red Blood Count 4.09 4.70-6.10 10 6/uL Hemoglobin 12.3 14.0-18.0 g/dL Hematocrit 37.8 42.0-54.0 % Mean Corpuscular Volume 92.4 80.0-94.0 fL Mean Corpuscular Hemoglobin 30.1 25.9-34.0 pg Mean Corpuscular HGB Conc 32.5 29.9-35.2 g/dL Red Cell Distribution Width 16.1 11.0-15.0 % Platelet Count 227 150-450 10 3/uL Mean Platelet Volume 10.5 9.5-13.5 fL Performing Lab: see note ML - [facility] LB BNP Reviewed date:06/23/2024 08:12:54 PM Interpretation: Performing Lab: Notes/Report: [facility] , NT Pro B Type Natriuretic Pept 3656.0 <=1800.0 pg/mL RESULTS CALLED TO CATHERINE BALLESTEROS LPN AT 1312 Performing Lab: see note ML - [facility] LB Aerobe ID + Suscept Reviewed date:05/19/2024 08:42:45 PM Interpretation: Performing Lab: Notes/Report: [facility] , Aerobe ID + Suscept See Below For Report Aerobe ID + Suscept WILL FOLLOW O:GEMHAE Isolated Aerobe ID + Suscept Aerobe ID + Suscept WILL FOLLOW O:GEMHAE Isolated Aerobe ID + Suscept *ABNORMAL* Aerobe ID + Suscept WILL FOLLOW O:GEMHAE Isolated Aerobe ID + Suscept Gram positive cocci Aerobe ID + Suscept WILL FOLLOW O:GEMHAE Isolated Aerobe ID + Suscept *ABNORMAL* Aerobe ID + Suscept WILL FOLLOW O:GEMHAE Isolated Aerobe ID + Suscept Received anaerobic bottle only. Aerobe ID + Suscept WILL FOLLOW O:GEMHAE Isolated Aerobe ID + Suscept Identification and sensitivities to follow. Aerobe ID + Suscept WILL FOLLOW O:GEMHAE Isolated Aerobe ID + Suscept Organism: Gemella haemolysans : Aerobe ID + Suscept WILL FOLLOW O:GEMHAE Isolated Aerobe ID + Suscept *ABNORMAL* Aerobe ID + Suscept WILL FOLLOW O:GEMHAE Isolated Aerobe ID + Suscept Received anaerobic bottle only. Aerobe ID + Suscept WILL FOLLOW O:GEMHAE Isolated Aerobe ID + Suscept Susceptibility to follow. Aerobe ID + Suscept WILL FOLLOW O:GEMHAE Isolated Aerobe ID + Suscept Gemella haemolysans Aerobe ID + Suscept WILL FOLLOW O:GEMHAE Isolated Aerobe ID + Suscept Organism: Gemella haemolysans : Aerobe ID + Suscept WILL FOLLOW O:GEMHAE Isolated Aerobe ID + Suscept *ABNORMAL* Aerobe ID + Suscept WILL FOLLOW O:GEMHAE Isolated Aerobe ID + Suscept Received anaerobic bottle only. Aerobe ID + Suscept WILL FOLLOW O:GEMHAE Isolated Aerobe ID + Suscept Susceptibility not normally performed on this organism. Aerobe ID + Suscept WILL FOLLOW O:GEMHAE Isolated Aerobe ID + Suscept See Below For Report Aerobe ID + Suscept WILL FOLLOW O:GEMHAE Isolated Performing Lab: see note - [facility] LB Anaerobe Identification Only Reviewed date:05/19/2024 08:42:45 PM Interpretation: Performing Lab: Notes/Report: [facility] , Anaerobe Identification Only See Below For Report Anaerobe Identification Only Anaerobe Identification Only Specimen has been received and testing has been initiated. Anaerobe Identification Only Anaerobe Identification Only Anaerobe Identification Only Anaerobe Identification Only No anaerobes recovered. Anaerobe Identification Only Anaerobe Identification Only [facility]formed [facility] Anaerobe Identification Only Anaerobe Identification Only [address] [place] [phone] Anaerobe Identification Only Anaerobe Identification Only Glue Sprayer: Tim Stack PhD, Phone: [phone] Anaerobe Identification Only Performing Lab: see note LC - [facility] LB SEE REPORT - Operations Trainer Id information not found for OBX-specific digital producer legend UA RANDOM W or MICROSCOPIC Reviewed date:05/14/2024 06:42:18 PM Interpretation: Performing Lab: Notes/Report: [facility] , Color Urine LT. YELLOW YELLOW Clarity Urine CLEAR CLEAR Specific [place] Urine 1.015 1.005-1.025 pH Urine 5.0 5.0-9.0 Protein Urine NEGATIVE NEG/TRACE mg/dL Glucose Urine UA >=1000 NEGATIVE mg/dL Bilirubin Urine NEGATIVE NEGATIVE Ketones Urine NEGATIVE NEGATIVE mg/dL Blood Urine NEGATIVE NEGATIVE Nitrite Urine NEGATIVE NEGATIVE Urobilinogen Urine 0.2 0.2-1.0 EU/dL Leukocyte Esterase Urine NEGATIVE NEGATIVE WBC Urine NONE SEEN NONE SEEN #/HPF RBC Urine NONE SEEN 0-2 #/HPF Bacteria Urine TRACE NONE SEEN #/HPF Mucus Urine TRACE NONE SEEN Squamous Epithelial Cell Urine FEW NONE/RARE #/LPF Crystals Seen? None Seen None Seen #/HPF Cast Seen? SEEN NONE SEEN #/LPF Hyaline Casts Urine RARE Yeast Urine SEEN NONE SEEN Urine Culture Indicated ALREADY ORDERED Performing Lab: see note ML - [facility] LB Urine Culture - FR Reviewed date:05/19/2024 08:42:45 PM Interpretation: Performing Lab: Notes/Report: [facility] , Urine Culture - [facility] See Below For Report Urine Culture - FR 20,000 colonies/ml mixed Urine Culture - FR bacterial skin contaminants Urine Culture - FR 20,000 colonies/ml mixed Urine Culture - FR 2 Days Urine Culture - [facility] 20,000 colonies/ml mixed Urine Culture - FR Urine Culture - [facility] 20,000 colonies/ml mixed Urine Culture - FR Testing performed a [facility] Urine Culture - FR 20,000 colonies/ml mixed Urine Culture - [facility] [address] [place] [address] Urine Culture - FR 20,000 colonies/ml mixed Performing Lab: see note ML - [facility] LB ECG 12 lead Reviewed date:05/14/2024 06:42:18 PM Interpretation: Performing Lab: Notes/Report: Source Facility: [facility]-[address] [place] [address] Electrocardiograph Report Signed Patient: KHADAR RAMOS MR#: [id number] : 1940 Acct:[id number] Age/Sex: 84 / M ADM Date: 05/14/24 Loc: ER Attending Dr: Ordering Physician: Marjorie Bhardwaj D.O. 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1940 Requested By: [id number] Order Number: [id number] Reading MD: BLAIR FLANAGAN Measurements Intervals [place] Rate: 89 P: -[id number] MA: -[id number] QRS: -86 QRSD: 122 T: 68 QT: 398 QTc: 445 Interpretive Statements 99709 Atrial fibrillation with aberrant conduction, or ventricular premature complexes 2450 Right bundle branch block 3133 Anterior myocardial infarction, probably old 3634 Inferior myocardial infarction, age undetermined 9150 abnormal ECG Compared to ECG 03/31/2024 10:25:09 Ventricular premature complex(es) now present Aberrant conduction of supraventricular beat(s) now present Myocardial infarct finding still present Electronically Signed On 05-14-2024 12:46:10 EDT by BLAIR FLANAGAN Dictated By: Blair Flanagan M.D. Signed By: 05/14/24 1246 DD/ 1123 TD/TT: Machine Presser: [place] [address] Electrocardiograph Report Signed Patient: KHADRA RAMOS MR#: [id number] : 1940 Acct:[id number] Age/Sex: 84 / M ADM Date: 05/14/24 Loc: ER Attending Dr: Ordering Physician: Marjorie Bhardwaj D.O. 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1940 Requested By: [id number] Order Number: [id number] Reading MD: BLAIR FLANAGAN Measurements Intervals [place] Rate: 89 P: -[id number] MA: -[id number] QRS: -86 QRSD: 122 T: 68 QT: 398 QTc: 445 Interpretive Statements 44013 Atrial fibrillation with aberrant conduction, or ventricular premature complexes 2450 Right bundle branch block 3133 Anterior myocardial infarction, probably old 3634 Inferior myocardial infarction, age undetermined 9150 abnormal ECG Compared to ECG 03/31/2024 10:25:09 Ventricular prematur e complex(es) now present Aberrant conduction of supraventricular beat(s) now present Myocardial infarct finding still present Electronically Sravani d On 05-14-2024 12:46:10 EDT by BLAIR FLANAGAN Dictated By: Blair Flanagan M.D. Signed By: 05/14/24 1246 DD/ 1123 TD/TT: Machine Presser: Troponin I High Sensitivity Reviewed date:05/14/2024 06:42:18 PM Interpretation: Performing Lab: Notes/Report: [facility] , Troponin I High Sensitivity 29.7 4.0-76.1 pg/mL CUT-OFF POINTS HAVE BEEN ESTABLISHED BASED ON THE FOURTH UNIVERSAL DEFINITION OF MYOCARDIAL INFARCTION. THE UPPER REFERENCE LIMIT (URL) OF TROPONIN, DEFINED THE 99TH PERCENTILE OF cTnI DISTRIBUTION IN A REFERENCE POPULATION, HAS BEEN CONFIRMED THE DECISION THRESHOLD FOR [place] DIAGNOSIS. 99TH PERCENTILE = 76.2 PG/ML NOTE: HIGH-SENSITIVITY TROPONIN ASSAY IS NOT INTENDED TO BE USED IN ISOLATION BUT SHOULD BE INTERPRETED IN CONJUNCTION WITH OTHER DIAGNOSTIC AND CLINICAL INFORMATION. Performing Lab: see note ML - [facility] LB LACTATE or LACTIC ACID Reviewed date:05/14/2024 06:42:18 PM Interpretation: Performing Lab: Notes/Report: [facility] , Lactate/Lactic Acid 1.4 0.4-2.0 mmol/L Performing Lab: see note ML - [facility] LB Aerobe ID + Suscept Reviewed date:05/20/2024 08:54:23 PM Interpretation: Performing Lab: Notes/Report: [facility] , Aerobe ID + Suscept See Below For Report Aerobe ID + Suscept O:GEMHAE Isolated Aerobe ID + Suscept *ABNORMAL* Aerobe ID + Suscept O:GEMHAE Isolated Aerobe ID + Suscept Gram positive cocci Aerobe ID + Suscept O:GEMHAE Isolated Aerobe ID + Suscept *ABNORMAL* Aerobe ID + Suscept O:GEMHAE Isolated Aerobe ID + Suscept Received aerobic bottle only. Aerobe ID + Suscept O:GEMHAE Isolated Aerobe ID + Suscept Identification and sensitivities to follow. Aerobe ID + Suscept O:GEMHAE Isolated Aerobe ID + Suscept Organism: Gemella haemolysans : Aerobe ID + Suscept O:GEMHAE Isolated Aerobe ID + Suscept *ABNORMAL* Aerobe ID + Suscept O:GEMHAE Isolated Aerobe ID + Suscept Received aerobic bottle only. Aerobe ID + Suscept O:GEMHAE Isolated Aerobe ID + Suscept Susceptibility not normally performed on this organism. Aerobe ID + Suscept O:GEMHAE Isolated Aerobe ID + Suscept Gemella haemolysans Aerobe ID + Suscept O:GEMHAE Isolated Aerobe ID + Suscept See Below For Report Aerobe ID + Suscept O:GEMHAE Isolated Aerobe ID + Suscept Performed at: [facility] Aerobe ID + Suscept O:GEMHAE Isolated Aerobe ID + Suscept [address] [place], [place] [id number] Aerobe ID + Suscept O:GEMHAE Isolated Aerobe ID + Suscept Glue Sprayer: Vishnu Stack PhD, Phone: [phone] Aerobe ID + Suscept O:GEMHAE Isolated Performing Lab: see note - [facility] LB SEE REPORT - Operations Trainer Id information not found for OBX-specific digital producer legend BNP Reviewed date:05/15/2024 07:47:36 PM Interpretation: Performing Lab: Notes/Report: [facility] , NT Pro B Type Natriuretic Pept 9101.0 <=1800.0 pg/mL RESULTS CALLED TO SOFIA MALONEY RN at 0536 Performing Lab: see note ML - [facility] LB CBC AUTO DIFF Reviewed date:05/15/2024 07:47:36 PM Interpretation: Performing Lab: Notes/Report: [facility] , White Blood Count 7.2 4.0-11.0 10 3/uL Red Blood Count 4.75 4.70-6.10 10 6/uL Hemoglobin 13.9 14.0-18.0 g/dL Hematocrit 43.9 42.0-54.0 % Mean Corpuscular Volume 92.4 80.0-94.0 fL Mean Corpuscular Hemoglobin 29.3 25.9-34.0 pg Mean Corpuscular HGB Conc 31.7 29.9-35.2 g/dL Red Cell Distribution Width 16.4 11.0-15.0 % Platelet Count 238 150-450 10 3/uL Mean Platelet Volume 10.7 9.5-13.5 fL Neutrophils Percent Auto 94.1 43.0-75.0 % Lymphocytes Percent Auto 3.9 20.5-60.0 % Monocytes Percent Auto 1.5 1.7-12.0 % Eosinophils Percent Auto 0.0 0.9-7.0 % Basophils Percent Auto 0.1 0.2-2.0 % Immature Granulocytes Pct Auto 0.4 0.0-0.5 % Neutrophils Absolute Auto 6.8 1.4-6.5 10 3/uL Lymphocytes Absolute Auto 0.3 1.2-3.8 10 3/uL Monocytes Absolute Auto 0.1 0.3-0.8 10 3/uL Eosinophils Absolute Auto 0.0 0.0-0.7 10 3/uL Basophils Absolute Auto 0.0 0.0-0.1 10 3/uL Immature Granulocytes Abs Auto 0.03 0.00-0.03 10 3/uL Performing Lab: see note ML - [facility] LB LACTATE or LACTIC ACID Reviewed date:05/15/2024 07:47:36 PM Interpretation: Performing Lab: Notes/Report: [facility] , Lactate/Lactic Acid 2.0 0.4-2.0 mmol/L Performing Lab: see note ML - [facility] LB PROF 14(COMP METB) Reviewed date:05/15/2024 07:47:36 PM Interpretation: Performing Lab: Notes/Report: [facility] , Sodium 145 136-145 mmol/L Potassium 3.9 3.5-5.1 mmol/L Chloride 103 98-107 mmol/L Carbon Dioxide 37.0 21.0-32.0 mmol/L Anion Gap 8.9 Glucose 182 74-106 mg/dL Blood Urea Nitrogen 36.0 7.0-18.0 mg/dL Creatinine 1.33 0.70-1.30 mg/dL Estimated GFR ( Cierra >60 >=60 mL/min/1.73m 2 Estimated GFR (Non- Marti 51 >=60 mL/min/1.73m 2 BUN Creatinine Ratio 27.1 Calcium 9.1 8.5-10.1 mg/dL Bilirubin Total 0.9 0.2-1.0 mg/dL Aspartate Amino Transferase 27 15-37 U/L Alanine Aminotransferase 35 16-63 U/L Alkaline Phosphatase 81 46-116 U/L Total Protein 5.6 6.4-8.2 g/dL Albumin Level 2.6 3.4-5.0 g/dL Globulin 3.0 Albumin Globulin Ratio 0.9 Performing Lab: see note - [facility] Troponin I High Sensitivity Reviewed date:05/15/2024 07:47:36 PM Interpretation: Performing Lab: Notes/Report: [facility] , Troponin I High Sensitivity 28.5 4.0-76.1 pg/mL CUT-OFF POINTS HAVE BEEN ESTABLISHED BASED ON THE FOURTH UNIVERSAL DEFINITION OF MYOCARDIAL INFARCTION. THE UPPER REFERENCE LIMIT (URL) OF TROPONIN, DEFINED THE 99TH PERCENTILE OF cTnI DISTRIBUTION IN A REFERENCE POPULATION, HAS BEEN CONFIRMED THE DECISION THRESHOLD FOR [place] DIAGNOSIS. 99TH PERCENTILE = 76.2 PG/ML NOTE: HIGH-SENSITIVITY TROPONIN ASSAY IS NOT INTENDED TO BE USED IN ISOLATION BUT SHOULD BE INTERPRETED IN CONJUNCTION WITH OTHER DIAGNOSTIC AND CLINICAL INFORMATION. Performing Lab: see note - [facility] Venous Blood Gas Reviewed date:05/15/2024 07:47:36 PM Interpretation: Performing Lab: Notes/Report: [facility] , pH VBG 7.396 7.330-7.430 PCO2 VBG 59.3 40.0-52.0 mmHg Performing Lab: see note [facility] LB White Blood Cells Reviewed date:05/20/2024 08:54:23 PM Interpretation: Performing Lab: Notes/Report: [facility] , White Blood Cells See Below For Report White Blood Cells White Blood Cells None seen White Blood Cells Performing Lab: see note LC - [facility] LB Epithelial Cells Reviewed date:05/20/2024 08:54:23 PM Interpretation: Performing Lab: Notes/Report: [facility] , Epithelial Cells See Below For Report Epithelial Cells None seen Performing Lab: see note LC - [facility] LB Result 1 Reviewed date:05/20/2024 08:54:23 PM Interpretation: Performing Lab: Notes/Report: [facility] , Result 1 See Below For Report Result 1 Small amount of yeast seen. Performing Lab: see note LC - [facility] LB Result 2 Reviewed date:05/20/2024 08:54:23 PM Interpretation: Performing Lab: Notes/Report: [facility] , Result 2 See Below For Report Result 2 RISK ASSESSOR Performing Lab: see note LC - [facility] LB PET skull to mid thigh Reviewed date:02/22/2024 12:51:11 PM Interpretation: Performing Lab: Notes/Report: Source Facility: [place] [address] PET Report Signed Patient: KHADAR RAMOS MR#: [id number] : 1940 Acct:[id number] Age/Sex: 84 / M ADM Date: 02/18/24 Loc: PETCT Attending Dr: Josy Sahu M.D. Ordering Physician: Josy Sahu M.D. Date of Service: 02/18/24 Procedure(s): PET skull to mid thigh Accession Number(s): [id number] cc: Josy Sahu M.D. [place] [address] Patient Name: KHADAR RAMOS MRN: [facility]:[id number] date: 1940 Sex: M Assigned Patient Location: PETCT Current Patient Location: PETCT Accession/Order Number: [id number] Exam Date: 02/18/2024 16:59 Report Date: 02/21/2024 23:21 At the request of: JOSY SAHU Procedure: PET skull to mid thigh PET/CT: HISTORY: Solitary pulmonary nodule. COMPARISON: CT angiogram chest 01/11/2024, CT abdomen and pelvis 09/23/2022, MRI abdomen 10/10/2022. TECHNIQUE: The patient was injected with 13.49 mCi of F-18 fluorodeoxyglucose (FDG), and an emission scan was performed from the base of the skull to the mid thigh. Noncontrast CT was performed for attenuation correction and anatomic localization. The blood glucose level was 112 mg/dl. The uptake time was 50 minutes. FINDINGS: HEAD AND NECK: There is a physiologic distribution of activity, with no hypermetabolic foci. CHEST: The SUVmax of the mediastinum = 2.6 using the patient's body weight as the normalization method. There is a hypermetabolic mass at the left lung apex with central photopenia consistent with necrosis, image 58, SUV max 11.8, measuring 3 x 2.8 cm. There are a few adjacent hypermetabolic pulmonary nodules in the left upper lobe such as on image 62 with SUV max 12.1 measuring 1.4 x 0.9 cm and on image 66 with SUV max 3.6 measuring 0.7 cm. There is groundglass opacity with interlobular septal thickening at the bilateral lung apices which may be due to interstitial edema or lymphangitic carcinomatosis. There is a hypermetabolic prevascular mediastinal lymph node on image 77 with SUV max 5 measuring approximately 10 mm in short axis diameter. There is ill-defined groundglass opacity in the right upper lobe on image 85 with mild uptake with SUV max 2.1. There is a hypermetabolic nodule along the left major fissure on image 89 with SUV max 1.7 measuring 0.9 x 0.6 cm. There are a few new ill-defined nodular foci of consolidation in the right middle lobe with associated mild to moderate FDG uptake with SUV max ranging to 3.1. There is a nodular density in the lingula on image 97 measuring 8 mm which is not seen previously, with no significant FDG uptake. There is also a 5 mm right lower lobe nodule which was not seen previously although there was atelectasis or consolidation in this region on the prior CT. There are a few additional small right lower lobe pulmonary nodules. There are several small nodules along the left major fissure which are stable and below resolution limits of PET. ABDOMEN AND PELVIS: There is a physiologic distribution of activity within the liver, spleen, adrenal glands, urinary tract and bowel, with no hypermetabolic foci. MUSCULOSKELETAL SYSTEM: There is a physiologic distribution of activity within the bone marrow, with no hypermetabolic foci. ADDITIONAL CT FINDINGS: There is moderate to severe cardiomegaly. The main pulmonary artery is dilated at 3.3 cm suspicious for pulmonary hypertension. Esophagus is markedly distended with fluid consistent with gastroesophageal reflux and this is stable. There is a stable moderate hiatal hernia. There are trace bilateral pleural effusions. There is a 3.2 x 3.5 cm cystic lesion in the body of the pancreas which is photopenic and previously measured at 2.4 x 2.[address] from 09/23/2022. There is a stable 14 mm right adrenal adenoma. There is bilateral perinephric stranding consistent with medical renal disease and there are several bilateral renal cysts the largest of which is in the lower pole of the right kidney and measures 7 x 5.6 cm. There is diffuse atherosclerotic calcification throughout the thoracoabdominal aorta, iliac and femoral arteries. There are multiple diverticula in the sigmoid colon with no acute diverticulitis. There are multiple brachytherapy seeds in the prostate gland. There is mild bladder wall thickening which may be due to chronic outlet obstruction. There is a small right bladder diverticulum. There are small fat-containing bilateral inguinal hernias and there is a small fluid collection in the right inguinal hernia which may be due to a hydrocele and is stable. PET/PET skull to mid thigh IMPRESSION: 1. 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 2. Several hypermetabolic left upper lobe pulmonary nodules suspicious for metastases. 3. Hypermetabolic prevascular mediastinal lymph node suspicious for a metastasis. 4. Groundglass opacities in the right upper lobe with mild FDG uptake and hypermetabolic ill-defined somewhat nodular appearing focus of consolidation in the right middle lobe suspicious for pneumonia. There are few additional small pulmonary nodules as described above which are near or below resolution limits of PET. Recommend attention on follow-up 5. Enlarging cystic lesion in the pancreas which is photopenic. Consider endoscopic ultrasound/fine-needle aspiration and surgical consultation per ACR guidelines. 6. Additional CT findings as described above. Electronically authenticated by: SHANITA THOMAS Date: 02/21/2024 23:21 Dictated By: Shanita Thomas M.D. Signed By: 02/21/242323 DD/ 20 TD/TT: Machine Presser: [place] [address] PET Report Signed Patient: KHADAR RAMOS MR#: [id number] : 1940 Acct:[id number] Age/Sex: 84 / M ADM Date: 02/18/24 Loc: PETCT Attending Dr: Bhupendra Sahu M.D. Ordering Physician: Josy Sahu M.D. Date of Service: 02/18/24 Procedure(s): PET skull to mid thigh Accession Number(s): [id number] cc: Josy Sahu M.D. [place] [address] Patient Name: KHADAR RAMOS MRN: [id number] date: 1940 Sex: M Assigned Patient Location: PETCT Current Patient Location: PETCT Accession/Order Number: [id number] Exam Date: 16:59 Report Date: 02/21/2024 23:21 At the request of: JOSY SAHU Procedure: PET skull to mid thigh PET/CT: HISTORY: Solitary pulmonary nodule. COMPARISON: CT angiogram chest 01/11/2024, CT abdomen and pelvis 09/23/2022, MRI abdomen 10/10/2022. TECHNIQUE: The patie nt was injected with 13.49 mCi of F-18 fluorodeoxyglucose (FDG), and an emissi on scan was performed from the base of the skull to the mid thigh. Noncontrast C T was performed for attenuation correction and anatomic localization. The blood glucose level was 112 mg/dl. The uptake time was 50 minutes. FINDINGS: HEAD AND NECK: There is a physiologic distribution of activity, with no hypermetabolic foci. CHEST: The SUVmax of the mediastinum = 2.6 using the patient's body weight as the normalization method. There is a hypermetabolic mass at the left lung apex with central photopenia consistent with necrosis, image 58, SUV max 11.8, measuring 3 x 2.8 cm . There are a few adjacent hypermetabolic pulmonary nodules in the left upper lo be such as on image 62 with SUV max 12.1 measuring 1.4 x 0.9 cm and on image 66 with SUV max 3.6 measuring 0.7 cm. There is groundglass opacity with interlobular septal thickening at the bilateral lung apices which may be due to interstitial edema or lymphangitic carcinomatosis. There is a hypermetabolic prevascular mediastinal lymph node on image 77 with SUV max 5 measuring approximately 10 mm in short axis diameter. There is ill-defined groundglass opacity in the right upper lobe on image 85 with mild uptake with SUV max 2.1. There i s a hypermetabolic nodule along the left major fissure on image 89 with SUV ma x 1.7 measuring 0.9 x 0.6 cm. There are a few new ill-defined nodular foci of consolidation in the right middle lobe with associated mild to moderate FDG uptake with SUV max ranging to 3.1. There is a nodular density in t he lingula on image 97 measuring 8 mm which is not seen previously, with no significant FDG uptake. There is also a 5 mm right lower lobe nodule which wa s not seen previously although there was atelectasis or consolidation in thi s region on the prior CT. There are a few additional small right lower lobe pulmonary nodules. There are several small nodules along the left major fissure which are stable and below resolution limits of PET. ABDOMEN AND PELVIS: There is a physiologic distribution of activity within the liver, spleen, adren al glands, urinary tract and bowel, with no hypermetabolic foci. MUSCULOSKELETAL SYSTEM: There is a physiologic distribution of activity within the bone marrow, wit h no hypermetabolic foci. ADDITIONAL CT FINDINGS: There is moderate to severe cardiomegaly. The main pulmonary artery is dilated at 3.3 cm suspicious for pulmonary hypertension. Esophagus is markedl y distended with fluid consistent with gastroesophageal reflux and this is stable. There is a stable moderate hiatal hernia. There are trace bilateral pleural effusions. There is a 3.2 x 3.5 cm cystic lesion in the body of the pancreas which is photopenic and previously measured at 2.4 x 2.[address] from 09/23/2022. There is a stable 14 mm right adrenal adenoma. There is bilateral perinephric stranding consistent with medical renal disease and there are severa l bilateral renal cysts the largest of which is in the lower pole of the right kidney and measures 7 x 5.6 cm. There is diffuse atherosclerotic calcification throughout the thoracoabdominal aorta, iliac and femoral arteries. There are multiple diverticula in the sigmoid colon with no acute diverticulitis . There are multiple brachytherapy seeds in the prostate gland. There is mild bladder wall thickening which may be due to chronic outlet obstruction. There i s a small right bladder diverticulum. There are small fat-containing bilateral inguinal hernias and there is a small fluid collection in the right inguina l hernia which may be due to a hydrocele and is stable. PET/PET skull to mid thigh IMPRESSION: 1. Hypermetabolic le ft apical pulmonary mass consistent with malignancy. 2. Several hypermetabolic left upper lobe pulmonary nodules suspicious for metastases. 3. Hypermetabolic prevascular mediastinal lymph node suspicious for a metastasis. 4. Groundglass opacities in the right upper lobe with mild FDG uptake and hypermetabolic ill-defined somewhat nodular appearing focus of consolidation in the right middle lob e suspicious for pneumonia. There are few additional small pulmonary nodules as described above which are near or below resolution limits of PET. Recommend attention on follow-up 5. Enlarging cystic lesion in the pancreas which is photopenic. Consider endoscopic ultrasound/fine-needle aspiration and surgical consultation per ACR guidelines. 6. Additional CT findings as described above. Electronically authenticated by: SHANITA THOMAS Date: 02/21/2024 23:21 Dictated By: Shanita Thomas M.D. Signed By: 02/21/242323 DD/ 20 TD/TT: Machine Presser: YOSHI hernandez Reviewed date:02/22/2024 12:51:11 PM Interpretation: Performing Lab: Notes/Report: Source Facility: [facility] [place] [address] [place] [address] Cardiology Report Signed Patient: KHADAR RAMOS MR#: [id number] : 1940 Acct:[id number] Age/Sex: 84 / M ADM Date: 02/21/24 Loc: CARD Attending Dr: Chris Strange M.D. Ordering Physician: Chris Strange M.D. Date of Service: 02/21/24 Procedure(s): YOSHI hernandez Accession Number(s): [id number] cc: Josy Sahu M.D.; Chris Strange M.D. Patient Name: KHADAR RAMOS MR#: [id number] : 1940 Exam Date: 02/21/2024 Ordering Doctor: DR. CHRIS STRANGE M.D. ECHOCARDIOGRAM REPORT PROCEDURE: CA ECHO W/ CON INDICATIONS: Chronic combined systolic and diastolic heart failure COMPARISON: None. DESCRIPTION: LIMITED ECHOCARDIOGRAM Real-time transthoracic echocardiography with 2D, M-mode, spectral and color flow Doppler performed. QUALITY: Lumason contrast was administered due to suboptimal imaging for left ventricular opacification to improve delineation of endocardial boarders. LEFT VENTRICLE: LV EF: Mildly reduced left ventricular ejection fraction, (45-50%). DIASTOLIC: ATRIAL SEPTUM: LEFT ATRIUM: RIGHT ATRIUM: RIGHT VENTRICLE: Mildly dilated with borderline reduced systolic function. TRICUSPID VALVE: MITRAL VALVE: AORTIC VALVE: AORTIC ROOT: PULMONIC VALVE: PERICARDIUM: No pericardial effusion. IVC: PLEURA: CONCLUSION: 1. Left ventricular systolic function is mildly reduced. Estimated LVEF is 45 to 50%. 2. Mildly dilated right ventricle with borderline reduced systolic function. Adult Echocardiography Procedure Report Left Ventricle Left Atrium Mitral Valve Right Ventricle Aorta Aortic Valve Tricuspid Valve Pulmonic Valve Right Atrium Dictated by: Sanjeev Moreira M.D. on 02/21/2024 at 21:05 Approved by: Sanjeev Moreira M.D. on 02/21/2024 at 21:09 Dictated By: SANJEEV MOREIRA Signed By: 02/21/242109 DD/ 08 TD/TT: Machine Presser: [place] [address] Cardiology Report Signed Patient: KHADAR RAMOS MR#: [id number] : 1940 Acct:[id number] Age/Sex: 84 / M ADM Date: 02/21/24 Loc: CARD Attending Dr: Chris Strange M.D. Ordering Physician: Chris Strange M.D. Date of Service: 02/21/24 Procedure(s): CA ech o w/ con Accession Number(s): [id number] cc: Josy Sahu M.D. ; Chris Strange M.D. Patient Name: KHADAR RAMOS MR#: [id number] : 1940 Exam Date: 02/21/2024 Ordering Doctor: DR. CHRIS STRANGE M.D. ECHOCARDIOGRAM REPORT PROCEDURE: CA ECHO W / CON INDICATIONS: Chronic combined systolic and diastolic heart failure COMPARISON: None. DESCRIPTION: LIMITED ECHOCARDIOGRAM Real-time transthoracic echocardiography wit h 2D, M-mode, spectral and color flow Doppler performed. QUALITY: Lumason contrast was administered due to suboptimal imaging for left ventricular opacification to improve delineation of endocardial boarders. LEFT VENTRICLE: LV EF: Mildly reduce d left ventricular ejection fraction, (45-50%). DIASTOLIC: ATRIAL SEPTUM: LEFT ATRIUM: RIGHT ATRIUM: RIGHT VENTRICLE: Mildly dilated with borderline reduced systolic function. TRICUSPID VALVE: MITRAL VALVE: AORTIC VALVE: AORTIC ROOT: PULMONIC VALVE: PERICARDIUM: No pericardial effusion. IVC: PLEURA: CONCLUSION: 1. Left ventricular systolic function is mildly reduced. Estimated LVEF is 45 to 50%. 2. Mildly dilated right ventricle with borderline reduced systolic function. Adult Echocardiograp hy Procedure Report Left Ventricle Left Atrium Mitral Valve Right Ventricle Aorta Aortic Valve Tricuspid Valve Pulmonic Valve Right Atrium Dictated by: Sanjeev Moreira M.D. on 02/21/2024 at 21:05 Approved by: Sanjeev Moreira M.D. on 02/21/2024 at 21:09 Dictated By: SANJEEV MOREIRA Signed By: 02/21/242109 DD/ 08 TD/TT: Machine Presser: Result 3 Reviewed date:05/20/2024 08:54:23 PM Interpretation: Performing Lab: Notes/Report: [facility] , Result 3 See Below For Report Result 3 RISK ASSESSOR Performing Lab: see note LC - [facility] LB Result 4 Reviewed date:05/20/2024 08:54:23 PM Interpretation: Performing Lab: Notes/Report: [facility] , Result 4 See Below For Report Result 4 RISK ASSESSOR Performing Lab: see note LC - [facility] LB CT angio chest Reviewed date:04/01/2024 05:02:44 PM Interpretation: Performing Lab: Notes/Report: Source Facility: [facility] [place] [address] [place] [address] CT Scan Report Signed Patient: KHADAR RAMOS MR#: [id number] : 1940 Acct:[id number] Age/Sex: 84 / M ADM Date: 03/31/24 Loc: [place] 214-[address]: Josy Sahu M.D. Ordering Physician: Josy Sahu M.D. Date of Service: 04/01/24 Procedure(s): CT angio chest Accession Number(s): [id number] cc: Josy Sahu M.D. [place] [id number] Patient Name: KHADAR RAMOS MRN: [id number] date: 1940 Sex: M Assigned Patient Location: [place] Current Patient Location: [place] Accession/Order Number: [id number] Exam Date: 04/01/2024 08:43 Report Date: 04/01/2024 09:41 At the request of: JOSY SAHU Procedure: CT angio chest EXAMINATION: CT angio chest HISTORY: acute hypoxia COMPARISON: 01/11/2024 TECHNIQUE: Multi-planar CT images were created with IV contrast. Axial, Coronal, and Sagittal images. Dose reduction techniques were achieved by using automated exposure control and/or adjustment of mA and/or kV according to patient size and/or use of iterative reconstruction technique. FINDINGS: LUNGS: Stable spiculated 3.4 cm left upper lobe mass. Interval increase in number and size of satellite lesions the largest in the left upper lobe the spiculated measuring 1.7 cm previously 1.4 cm, axial image #20. Moderate diffuse centrilobular emphysema with an upper lobe predominance. Partial consolidation of both lower lobes likely passive atelectasis. Additional subcentimeter pulmonary nodules scattered throughout both lungs PLEURA: Increase in now 4.2 cm right pleural effusion. 2 cm left pleural effusion. No pneumothorax VASCULATURE: Normal postcontrast opacification of the central pulmonary arterial tree with no filling defect to suggest a pulmonary embolus AYE: No mass or adenopathy. MEDIASTINUM: No mass or adenopathy. CARDIAC: Moderate stable cardiomegaly. No pericardial effusion Coronary arteries: Heavy calcifications AORTA: No aortic aneurysm or dissection. Heavy calcific atherosclerosis CHEST WALL: No mass or axillary adenopathy. Left pacemaker BONES: No bone lesion or fracture. LIMITED ABDOMEN: Large hiatal hernia OTHER: Negative. CT/CT angio chest IMPRESSION: No central pulmonary thromboembolic disease Bilateral pleural effusions, increased from the prior exam Stable spiculated 3.4 cm left upper lobe mass with increase in satellite lesions up to 1.7 cm Electronically authenticated by: ALESHIA RUFF Date: 04/01/2024 09:41 Dictated By: Aleshia Ruff M.D. Signed By: 04/01/2443 DD/ 0 TD/TT: Machine Presser: [place] [address] CT Scan Report Signed Patient: KHADAR RAMOS MR#: [id number] : 1940 Acct:[id number] Age/Sex: 84 / M ADM Date: 03/31/24 Loc: MS 214-[address]: Bhupendra Sahu M.D. Ordering Physician: Josy Sahu M.D. Date of Service: 04/01/24 Procedure(s): CT ang io chest Accession Number(s): [id number] cc: Josy Sahu M.D. [place] [address] Patient Name: KHADAR RAMOS MRN: [id number] date: 1940 Sex: M Assigned Patient Location: [place] Current Patient Location: [place] Accession/Order Number: [id number] Exam Date: 04/01/2024 08:43 Report Date: 04/01/2024 09:41 At the request of: JOSY SAHU Procedure: CT angio chest EXAMINATION: CT rogelio o chest HISTORY: acute hypoxia COMPARISON: 01/11/2024 TECHNIQUE: Multi-planar CT images were created with IV contrast. Axial, Coronal, and Sagitta l images. Dose reduction techniques were achieved by using automated exposure control and/or adjustment of mA and/or kV according to patient size and/or use of iterative reconstruction technique. FINDINGS: LUNGS: Stable spiculated 3.4 cm left upper lobe mass. Interval increase in number and size of satellite lesions the largest in the left upper lobe the spiculated measuring 1.7 cm previously 1.4 cm, axial image #20. Moderate diffuse centrilobula r emphysema with an upper lobe predominance. Partial consolidation of bot h lower lobes likely passive atelectasis. Additional subcentimeter pulmonary nodules scattered throughout both lungs PLEURA: Increase in now 4.2 cm right pleural effusion. 2 cm left pleural effusion. No pneumothorax VASCULATURE: Normal postcontrast opacification of the central pulmonary arterial tree with n o filling defect to suggest a pulmonary embolus AYE: No mass or adenopathy. MEDIASTINUM: No mass or adenopathy. CARDIAC: Moderate stable cardiomegaly. No pericardial effusion Coronary arteries: Heavy calcifications AORTA: No aortic aneurysm or dissection. Heavy calcific atherosclerosis CHEST WALL: No mass or axillary adenopathy. Left pacemaker BONES: No bone lesio n or fracture. LIMITED ABDOMEN: Lar ge hiatal hernia OTHER: Negative. CT/CT angio chest IMPRESSION: No central pulmonary thromboembolic disease Bilateral pleural effusions, increased from the prior exam Stable spiculated 3. 4 cm left upper lobe mass with increase in satellite lesions up to 1.7 cm Electronically authenticated by: ALESHIA RUFF Date: 04/01/2024 09:41 Dictated By: Aleshia Ruff M.D. Signed By: 04/01/24 0943 DD/ 0941 TD/TT: Machine Presser: Gram Stain Evaluation Reviewed date:05/20/2024 08:54:23 PM Interpretation: Performing Lab: Notes/Report: [facility] , Gram Stain Evaluation See Below For Report Gram Stain Evaluation This specimen is of good quality and is acceptable for routine Gram Stain Evaluation bacterial culture. Gram Stain Evaluation This specimen is of good quality and is acceptable for routine Performing Lab: see note LC - [facility] LB Lower Respiratory Culture Reviewed date:05/20/2024 08:54:23 PM Interpretation: Performing Lab: Notes/Report: [facility] , Lower Respiratory Culture See Below For Report Lower Respiratory Culture WILL FOLLOW O:CANALB Isolated Lower Respiratory Culture Growth observed. Further testing to rule out possible pathogen(s) Lower Respiratory Culture WILL FOLLOW O:CANALB Isolated Lower Respiratory Culture is in progress. Lower Respiratory Culture WILL FOLLOW O:CANALB Isolated Lower Respiratory Culture Organism: Valarie albicans : Lower Respiratory Culture WILL FOLLOW O:CANALB Isolated Lower Respiratory Culture *ABNORMAL* Lower Respiratory Culture WILL FOLLOW O:CANALB Isolated Lower Respiratory Culture Light growth Lower Respiratory Culture WILL FOLLOW O:CANALB Isolated Lower Respiratory Culture Lower Respiratory Culture WILL FOLLOW O:CANALB Isolated Lower Respiratory Culture Routine respiratory isabelle Lower Respiratory Culture WILL FOLLOW O:CANALB Isolated Lower Respiratory Culture Light growth Lower Respiratory Culture WILL FOLLOW O:CANALB Isolated Lower Respiratory Culture Valarie albicans Lower Respiratory Culture WILL FOLLOW O:CANALB Isolated Lower Respiratory Culture See Below For Report Lower Respiratory Culture WILL FOLLOW O:CANALB Isolated Lower Respiratory Culture Performed at: - [facility] [place] Lower Respiratory Culture WILL FOLLOW O:CANALB Isolated Lower Respiratory Culture [address] [place], [place] [id number] Lower Respiratory Culture WILL FOLLOW O:CANALB Isolated Lower Respiratory Culture Glue Sprayer: Tim Stack PhD, Phone: [phone] Lower Respiratory Culture WILL FOLLOW O:CANALB Isolated Performing Lab: see note - [facility] LB SEE REPORT - Operations Trainer Id information not found for OBX-specific digital producer legend CA echo w/ con Reviewed date:05/15/2024 09:59:56 PM Interpretation: Performing Lab: Notes/Report: Source Facility: [place] [address] Cardiology Report Signed Patient: KHADAR RAMOS MR#: [id number] : 1940 Acct:[id number] Age/Sex: 84 / M ADM Date: 05/14/24 Loc: MS 203-[address]: Josy Sahu M.D. Ordering Physician: Josy Sahu M.D. Date of Service: 05/15/24 Procedure(s): CA echo w/ con Accession Number(s): [id number] cc: Josy Sahu M.D. Patient Name: KHADAR RAMOS MR#: [id number] : 1940 Exam Date: 05/15/2024 Ordering Doctor: DR Josy Sahu . ECHOCARDIOGRAM REPORT PROCEDURE: CA ECHO W/ CON INDICATIONS: CHF, Follow up from Previous, pacemaker, hypertension, diabetes COMPARISON: None. DESCRIPTION: LIMITED ECHOCARDIOGRAM Real-time transthoracic echocardiography with 2D, M-mode, spectral and color flow Doppler performed. QUALITY: Lumason contrast was administered due to suboptimal imaging for left ventricular opacification to improve delineation of endocardial boarders. Limited echocardiogram per physician order. LEFT VENTRICLE: Normal chamber size. Thickened septal wall. Normal systolic function. LV EF: Normal left ventricular ejection fraction, (>55%). DIASTOLIC: ATRIAL SEPTUM: LEFT ATRIUM: Moderate dilatation. RIGHT ATRIUM: Moderate dilatation. RIGHT VENTRICLE: Moderately dilated. Systolic function is moderately reduced. Pacer wire present. TRICUSPID VALVE: Normal mobility and thickness. MITRAL VALVE: Mildly thickened with normal mobility. There is no mitral annular calcification. AORTIC VALVE: Normal trileaflet appearance. Multifocal calcifications. AORTIC ROOT: Normal diameter and appearance. Ascending aorta is normal in size. PULMONIC VALVE: Normal thickness and mobility. PERICARDIUM: No evidence of pericardial effusion. IVC: Not well visualized. PLEURA: CONCLUSION: 1. The left ventricle is normal in size and exhibits normal systolic function. LVEF is estimated at 55 to 60%. 2. Moderately dilated right ventricle with moderately reduced systolic function. 3. No pericardial effusion. 4. Limited study performed with no Doppler interrogation as requested. Adult Echocardiography Procedure Report Left Ventricle LVEDD (3.7 - 5.6 cm): 3.84 cm LVESD (2.2 - 4.0 cm): 2.37 cm LVIVS thickness (0.6 - 1.2 cm): 1.65 cm LVPW thickness (0.5 - 1.0 cm): 1.03 cm LVOT Diameter 2.44 cm Left Atrium Left Atrium Systolic Dimension: 5.08 cm Mitral Valve Right Ventricle Aorta AO Root Diam: 3.55 cm Ascending Ao Diam: 2.52 cm Aortic Valve Tricuspid Valve Pulmonic Valve Right Atrium Dictated by: Sanjeev Moreira M.D. on 05/15/2024 at 20:05 Approved by: Sanjeev Moreira M.D. on 05/15/2024 at 20:08 Dictated By: SANJEEV MOREIRA Signed By: 05/15/242008 DD/ 07 TD/TT: Machine Presser: [place] [address] Cardiology Report Signed Patient: KHADAR RAMOS MR#: [id number] : 1940 Acct:[id number] Age/Sex: 84 / M ADM Date: 05/14/24 Loc: MS 203-[address]: Bhupendra Sahu M.D. Ordering Physician: Josy Sahu M.D. Date of Service: 05/15/24 Procedure(s): CA ech o w/ con Accession Number(s): [id number] cc: Josy Sahu M.D. Patient Name: KHADAR RAMOS MR#: [id number] : 1940 Exam Date: 05/15/2024 Ordering Doctor: DR Josy Sahu . ECHOCARDIOGRAM REPORT PROCEDURE: CA ECHO W / CON INDICATIONS: CHF, Follow up from Previous, pacemaker, hypertension, diabetes COMPARISON: None. DESCRIPTION: LIMITED ECHOCARDIOGRAM Real-time transthoracic echocardiography wit h 2D, M-mode, spectral and color flow Doppler performed. QUALITY: Lumason contrast was administered due to suboptimal imaging for left ventricular opacification to improve delineation of endocardial boarders. Limited echocardiogr am per physician order. LEFT VENTRICLE: Norm al chamber size. Thickened septal wall. Normal systolic function. LV EF: Normal left ventricular ejection fraction, (>55%). DIASTOLIC: ATRIAL SEPTUM: LEFT ATRIUM: Moderat e dilatation. RIGHT ATRIUM: Modera te dilatation. RIGHT VENTRICLE: Moderately dilated. Systolic function is moderately reduced. Pacer wire present. TRICUSPID VALVE: Normal mobility and thickness. MITRAL VALVE: Mildly thickened with normal mobility. There is no mitral annular calcification. AORTIC VALVE: Normal trileaflet appearance. Multifocal calcifications. AORTIC ROOT: Normal diameter and appearance. Ascending aorta is normal in size. PULMONIC VALVE: Norm al thickness and mobility. PERICARDIUM: No evidence of pericardial effusion. IVC: Not well visualized. PLEURA: CONCLUSION: 1. The left ventricl e is normal in size and exhibits normal systolic function. LVEF is estimated at 55 to 60%. 2. Moderately dilate d right ventricle with moderately reduced systolic function. 3. No pericardial effusion. 4. Limited study performed with no Doppler interrogation as requested. Adult Echocardiograp hy Procedure Report Left Ventricle LVEDD (3.7 - 5.6 cm) : 3.84 cm LVESD (2.2 - 4.0 cm) : 2.37 cm LVIVS thickness (0.6 - 1.2 cm): 1.65 cm LVPW thickness (0.5 - 1.0 cm): 1.03 cm LVOT Diameter 2.44 cm Left Atrium Left Atrium Systolic Dimension: 5.08 cm Mitral Valve Right Ventricle Aorta AO Root Diam: 3.55 cm Ascending Ao Diam: 2.52 cm Aortic Valve Tricuspid Valve Pulmonic Valve Right Atrium Dictated by: Sanjeev Moreira M.D. on 05/15/2024 at 20:05 Approved by: Sanjeev Moreira M.D. on 05/15/2024 at 20:08 Dictated By: SANJEEV MOREIRA Signed By: 05/15/242008 DD/ 07 TD/TT: Machine Presser: BNP Reviewed date:05/18/2024 03:53:33 PM Interpretation: Performing Lab: Notes/Report: [facility] , NT Pro B Type Natriuretic Pept 4365.0 <=1800.0 pg/mL RESULTS CALLED TO Martin Wong RN @BY Pawel Villarreal [place] at 0633 Performing Lab: see note ML - [facility] LB CBC AUTO DIFF Reviewed date:05/18/2024 03:53:33 PM Interpretation: Performing Lab: Notes/Report: [facility] , White Blood Count 16.3 4.0-11.0 10 3/uL Red Blood Count 4.44 4.70-6.10 10 6/uL Hemoglobin 12.8 14.0-18.0 g/dL Hematocrit 40.0 42.0-54.0 % Mean Corpuscular Volume 90.1 80.0-94.0 fL Mean Corpuscular Hemoglobin 28.8 25.9-34.0 pg Mean Corpuscular HGB Conc 32.0 29.9-35.2 g/dL Red Cell Distribution Width 16.2 11.0-15.0 % Platelet Count 263 150-450 10 3/uL Mean Platelet Volume 11.1 9.5-13.5 fL Neutrophils Percent Auto 95.2 43.0-75.0 % Lymphocytes Percent Auto 1.9 20.5-60.0 % Monocytes Percent Auto 2.1 1.7-12.0 % Eosinophils Percent Auto 0.0 0.9-7.0 % Basophils Percent Auto 0.1 0.2-2.0 % Immature Granulocytes Pct Auto 0.7 0.0-0.5 % Neutrophils Absolute Auto 15.6 1.4-6.5 10 3/uL Lymphocytes Absolute Auto 0.3 1.2-3.8 10 3/uL Monocytes Absolute Auto 0.3 0.3-0.8 10 3/uL Eosinophils Absolute Auto 0.0 0.0-0.7 10 3/uL Basophils Absolute Auto 0.0 0.0-0.1 10 3/uL Immature Granulocytes Abs Auto 0.12 0.00-0.03 10 3/uL Performing Lab: see note ML - [facility] LB DIGOXIN Reviewed date:05/18/2024 03:53:33 PM Interpretation: Performing Lab: Notes/Report: [facility] , Digoxin 0.8 0.9-2.0 ng/mL Performing Lab: see note ML - [facility] PROF 14(COMP METB) Reviewed date:05/18/2024 03:53:33 PM Interpretation: Performing Lab: Notes/Report: [facility] , Sodium 143 136-145 mmol/L Potassium 3.7 3.5-5.1 mmol/L Chloride 101 98-107 mmol/L Carbon Dioxide 37.3 21.0-32.0 mmol/L Anion Gap 8.4 Glucose 209 74-106 mg/dL Blood Urea Nitrogen 52.0 7.0-18.0 mg/dL Creatinine 1.37 0.70-1.30 mg/dL Estimated GFR ( Cierra >60 >=60 mL/min/1.73m 2 Estimated GFR (Non- Marti 50 >=60 mL/min/1.73m 2 BUN Creatinine Ratio 38.0 Calcium 9.0 8.5-10.1 mg/dL Bilirubin Total 0.9 0.2-1.0 mg/dL Aspartate Amino Transferase 20 15-37 U/L Alanine Aminotransferase 28 16-63 U/L Alkaline Phosphatase 66 46-116 U/L Total Protein 5.3 6.4-8.2 g/dL Albumin Level 2.6 3.4-5.0 g/dL Globulin 2.7 Albumin Globulin Ratio 1.0 Performing Lab: see note ML - [facility] LB CBC AUTO DIFF Reviewed date:05/18/2024 03:53:33 PM Interpretation: Performing Lab: Notes/Report: [facility] , White Blood Count 21.5 4.0-11.0 10 3/uL Red Blood Count 4.88 4.70-6.10 10 6/uL Hemoglobin 13.9 14.0-18.0 g/dL Hematocrit 44.9 42.0-54.0 % Mean Corpuscular Volume 92.0 80.0-94.0 fL Mean Corpuscular Hemoglobin 28.5 25.9-34.0 pg Mean Corpuscular HGB Conc 31.0 29.9-35.2 g/dL Red Cell Distribution Width 16.2 11.0-15.0 % Platelet Count 292 150-450 10 3/uL Mean Platelet Volume 10.6 9.5-13.5 fL Neutrophils Percent Auto 95.2 43.0-75.0 % Lymphocytes Percent Auto 1.4 20.5-60.0 % Monocytes Percent Auto 2.3 1.7-12.0 % Eosinophils Percent Auto 0.0 0.9-7.0 % Basophils Percent Auto 0.1 0.2-2.0 % Immature Granulocytes Pct Auto 1.0 0.0-0.5 % Neutrophils Absolute Auto 20.5 1.4-6.5 10 3/uL Lymphocytes Absolute Auto 0.3 1.2-3.8 10 3/uL Monocytes Absolute Auto 0.5 0.3-0.8 10 3/uL Eosinophils Absolute Auto 0.0 0.0-0.7 10 3/uL Basophils Absolute Auto 0.0 0.0-0.1 10 3/uL Immature Granulocytes Abs Auto 0.21 0.00-0.03 10 3/uL Performing Lab: see note ML - [facility] LB DIGOXIN Reviewed date:05/18/2024 03:53:33 PM Interpretation: Performing Lab: Notes/Report: [facility] , Digoxin 1.0 0.9-2.0 ng/mL Performing Lab: see note ML - [facility] LB PROF 14(COMP METB) Reviewed date:05/18/2024 03:53:33 PM Interpretation: Performing Lab: Notes/Report: [facility] , Sodium 148 136-145 mmol/L Potassium 3.4 3.5-5.1 mmol/L Chloride 102 98-107 mmol/L Carbon Dioxide 41.8 21.0-32.0 mmol/L Anion Gap 7.6 Glucose 170 74-106 mg/dL Blood Urea Nitrogen 55.0 7.0-18.0 mg/dL Creatinine 1.34 0.70-1.30 mg/dL Estimated GFR ( Cierra >60 >=60 mL/min/1.73m 2 Estimated GFR (Non- Marti 51 >=60 mL/min/1.73m 2 BUN Creatinine Ratio 41.0 Calcium 9.5 8.5-10.1 mg/dL Bilirubin Total 0.9 0.2-1.0 mg/dL Aspartate Amino Transferase 16 15-37 U/L Alanine Aminotransferase 23 16-63 U/L Alkaline Phosphatase 66 46-116 U/L Total Protein 5.6 6.4-8.2 g/dL Albumin Level 2.8 3.4-5.0 g/dL Globulin 2.8 Albumin Globulin Ratio 1.0 Performing Lab: see note ML - [facility] LB CRP Reviewed date:05/26/2024 09:15:32 PM Interpretation: Performing Lab: Notes/Report: [facility] , C Reactive Protein <0.50 <=0.50 mg/dL Performing Lab: see note ML - [facility] LB DIGOXIN Reviewed date:05/26/2024 09:15:32 PM Interpretation: Performing Lab: Notes/Report: [facility] , Digoxin 1.9 0.9-2.0 ng/mL Performing Lab: see note ML - [facility] LB Erythrocyte Sedimentation Ra te Reviewed date:05/26/2024 09:15:32 PM Interpretation: Performing Lab: Notes/Report: [facility] , Erythrocyte Sedimentation Rate 8 <=20 mm/hr Performing Lab: see note ML - [facility] LB ECG 12 lead Reviewed date:05/26/2024 09:15:32 PM Interpretation: Performing Lab: Notes/Report: Source Facility: [place] [address] Electrocardiograph Report Signed Patient: KHADAR RAMOS MR#: [id number] : 1940 Acct:[id number] Age/Sex: 84 / M ADM Date: 05/26/24 Loc: [place] 213-[address]: Josy Sahu M.D. 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 Measurements Intervals [place] Rate: 68 P: -[id number] MA: -27894 QRS: 270 QRSD: 120 T: 55 QT: 378 QTc: 396 Interpretive Statements 53844 Atrial fibrillation with aberrant conduction, or ventricular premature complexes 2450 Right bundle branch block 3133 Anterior myocardial infarction, probably old 3634 Inferior myocardial infarction, age undetermined 7100 Abnormal right axis deviation 9150 abnormal ECG Compared to ECG 05/14/2024 11:23:39 No significant change Electronically Signed On 05-26-2024 19:45:19 EDT by SANJEEV MOREIRA M.D. Dictated By: SANJEEV MOREIRA Signed By: 05/26/241944 DD/ 151 TD/TT: Machine Presser: [place] [address] Electrocardiograph Report Signed Patient: KHADAR RAMOS MR#: [id number] : 1940 Acct:[id number] Age/Sex: 84 / M ADM Date: 05/26/24 Loc: MS 213-[address]: Bhupendra Sahu M.D. 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 Measurements Intervals [place] Rate: 68 P: -[id number] MA: -[id number] QRS: 270 QRSD: 120 T: 55 QT: 378 QTc: 396 Interpretive Statements 35587 Atrial fibrillation with aberrant conduction, or ventricular premature complexes 2450 Right bundle branch block 3133 Anterior myocardial infarction, probably old 3634 Inferior myocardial infarction, age undetermined 7100 Abnormal right axis deviation 9150 abnormal ECG Compared to ECG 05/14/2024 11:23:39 No significant change Electronically Sravani d On 05-26-2024 19:45:19 EDT by SANJEEV MOREIRA M.D. Dictated By: SANJEEV MOREIRA Signed By: 05/26/241944 DD/ 1516 TD/TT: Machine Presser: LACTATE or LACTIC ACID Reviewed date:05/26/2024 09:15:32 PM Interpretation: Performing Lab: Notes/Report: [facility] , Lactate/Lactic Acid 1.5 0.4-2.0 mmol/L Performing Lab: see note ML - [facility] LB CBC AUTO DIFF Reviewed date:05/28/2024 10:55:27 AM Interpretation: Performing Lab: Notes/Report: [facility] , White Blood Count 15.0 4.0-11.0 10 3/uL Red Blood Count 4.79 4.70-6.10 10 6/uL Hemoglobin 13.8 14.0-18.0 g/dL Hematocrit 43.7 42.0-54.0 % Mean Corpuscular Volume 91.2 80.0-94.0 fL Mean Corpuscular Hemoglobin 28.8 25.9-34.0 pg Mean Corpuscular HGB Conc 31.6 29.9-35.2 g/dL Red Cell Distribution Width 16.5 11.0-15.0 % Platelet Count 216 150-450 10 3/uL Mean Platelet Volume 12.2 9.5-13.5 fL Neutrophils Percent Auto 87.8 43.0-75.0 % Lymphocytes Percent Auto 3.3 20.5-60.0 % Monocytes Percent Auto 7.7 1.7-12.0 % Eosinophils Percent Auto 0.5 0.9-7.0 % Basophils Percent Auto 0.1 0.2-2.0 % Immature Granulocytes Pct Auto 0.6 0.0-0.5 % Neutrophils Absolute Auto 13.2 1.4-6.5 10 3/uL Lymphocytes Absolute Auto 0.5 1.2-3.8 10 3/uL Monocytes Absolute Auto 1.2 0.3-0.8 10 3/uL Eosinophils Absolute Auto 0.1 0.0-0.7 10 3/uL Basophils Absolute Auto 0.0 0.0-0.1 10 3/uL Immature Granulocytes Abs Auto 0.09 0.00-0.03 10 3/uL Performing Lab: see note - [facility] DIGOXIN Reviewed date:05/28/2024 10:55:27 AM Interpretation: Performing Lab: Notes/Report: [facility] , Digoxin 1.5 0.9-2.0 ng/mL Performing Lab: see note [facility] PROF CHEM 8 (BAS METB) Reviewed date:05/28/2024 10:55:27 AM Interpretation: Performing Lab: Notes/Report: [facility] , Sodium 145 136-145 mmol/L Potassium 3.8 3.5-5.1 mmol/L Chloride 106 98-107 mmol/L Carbon Dioxide 36.3 21.0-32.0 mmol/L Anion Gap 6.5 Glucose 103 74-106 mg/dL Blood Urea Nitrogen 30.0 7.0-18.0 mg/dL Creatinine 1.05 0.70-1.30 mg/dL Estimated GFR ( Cierra >60 >=60 mL/min/1.73m 2 Estimated GFR (Non- Marti >60 >=60 mL/min/1.73m 2 BUN Creatinine Ratio 28.6 Calcium 9.4 8.5-10.1 mg/dL Performing Lab: see note [facility] LB Blood Culture 1 Reviewed date:06/02/2024 09:46:04 PM Interpretation: Performing Lab: Notes/Report: RT [facility] , Blood Culture 1 See Below For Report Blood Culture 1 NG5D NO GROWTH AT 5 DAYS.^NO GROWTH AT 5 DAYS. Performing Lab: see note - [facility] LB Blood Culture 2 Reviewed date:06/02/2024 09:46:04 PM Interpretation: Performing Lab: Notes/Report: LT [facility] , Blood Culture 2 See Below For Report Blood Culture 2 NG5D NO GROWTH AT 5 DAYS.^NO GROWTH AT 5 DAYS. Performing Lab: see note [facility] CBC AUTO DIFF Reviewed date:05/29/2024 08:48:43 PM Interpretation: Performing Lab: Notes/Report: [facility] , White Blood Count 14.5 4.0-11.0 10 3/uL Red Blood Count 4.66 4.70-6.10 10 6/uL Hemoglobin 13.4 14.0-18.0 g/dL Hematocrit 42.3 42.0-54.0 % Mean Corpuscular Volume 90.8 80.0-94.0 fL Mean Corpuscular Hemoglobin 28.8 25.9-34.0 pg Mean Corpuscular HGB Conc 31.7 29.9-35.2 g/dL Red Cell Distribution Width 16.5 11.0-15.0 % Platelet Count 169 150-450 10 3/uL Mean Platelet Volume 12.5 9.5-13.5 fL Neutrophils Percent Auto 88.5 43.0-75.0 % Lymphocytes Percent Auto 3.0 20.5-60.0 % Monocytes Percent Auto 6.8 1.7-12.0 % Eosinophils Percent Auto 1.0 0.9-7.0 % Basophils Percent Auto 0.1 0.2-2.0 % Immature Granulocytes Pct Auto 0.6 0.0-0.5 % Neutrophils Absolute Auto 12.8 1.4-6.5 10 3/uL Lymphocytes Absolute Auto 0.4 1.2-3.8 10 3/uL Monocytes Absolute Auto 1.0 0.3-0.8 10 3/uL Eosinophils Absolute Auto 0.1 0.0-0.7 10 3/uL Basophils Absolute Auto 0.0 0.0-0.1 10 3/uL Immature Granulocytes Abs Auto 0.09 0.00-0.03 10 3/uL Performing Lab: see note ML - [facility] LB CRP Reviewed date:05/29/2024 08:48:43 PM Interpretation: Performing Lab: Notes/Report: [facility] , C Reactive Protein <0.50 <=0.50 mg/dL Performing Lab: see note ML - [facility] LB DIGOXIN Reviewed date:05/29/2024 08:48:43 PM Interpretation: Performing Lab: Notes/Report: [facility] , Digoxin 1.9 0.9-2.0 ng/mL Performing Lab: see note ML - [facility] LB VANCOMYCIN TROUGH Reviewed date:05/29/2024 08:48:43 PM Interpretation: Performing Lab: Notes/Report: [facility] , Vancomycin Trough 12.4 5.0-20.0 ug/mL Performing Lab: see note ML - [facility] LB CBC AUTO DIFF Reviewed date:06/01/2024 04:21:11 PM Interpretation: Performing Lab: Notes/Report: [facility] , White Blood Count 14.8 4.0-11.0 10 3/uL Red Blood Count 4.44 4.70-6.10 10 6/uL Hemoglobin 12.8 14.0-18.0 g/dL Hematocrit 40.3 42.0-54.0 % Mean Corpuscular Volume 90.8 80.0-94.0 fL Mean Corpuscular Hemoglobin 28.8 25.9-34.0 pg Mean Corpuscular HGB Conc 31.8 29.9-35.2 g/dL Red Cell Distribution Width 16.5 11.0-15.0 % Platelet Count 209 150-450 10 3/uL Mean Platelet Volume 12.4 9.5-13.5 fL Performing Lab: see note ML - [facility] LB CRP Reviewed date:06/01/2024 04:21:11 PM Interpretation: Performing Lab: Notes/Report: [facility] , C Reactive Protein <0.50 <=0.50 mg/dL Performing Lab: see note ML - [facility] LB DIGOXIN Reviewed date:06/01/2024 04:21:11 PM Interpretation: Performing Lab: Notes/Report: [facility] , Digoxin 2.0 0.9-2.0 ng/mL Performing Lab: see note ML - [facility] LB PROF CHEM 8 (BAS METB) Reviewed date:06/01/2024 04:21:11 PM Interpretation: Performing Lab: Notes/Report: [facility] , Sodium 143 136-145 mmol/L Potassium 3.8 3.5-5.1 mmol/L Chloride 100 98-107 mmol/L Carbon Dioxide 37.9 21.0-32.0 mmol/L Anion Gap 8.9 Glucose 95 74-106 mg/dL Blood Urea Nitrogen 30.0 7.0-18.0 mg/dL Creatinine 0.77 0.70-1.30 mg/dL Estimated GFR ( Cierra >60 >=60 mL/min/1.73m 2 Estimated GFR (Non- Marti >60 >=60 mL/min/1.73m 2 BUN Creatinine Ratio 39.0 Calcium 9.4 8.5-10.1 mg/dL Performing Lab: see note ML - [facility] LB Erythrocyte Sedimentation Ra te Reviewed date:06/01/2024 04:21:11 PM Interpretation: Performing Lab: Notes/Report: [facility] , Erythrocyte Sedimentation Rate 3 <=20 mm/hr Performing Lab: see note - [facility] LB Manual Differential Reviewed date:06/01/2024 04:21:11 PM Interpretation: Performing Lab: Notes/Report: [facility] , Segmented Neutrophils % Manual 92.0 43.0-75.0 Lymphocytes Percent Manual 3.0 20.5-60.0 % Monocytes Percent Manual 5.0 1.7-12.0 % Eosinophils Percent Manual 0.0 0.9-7.0 % Basophils Percent Manual 0.0 0.2-2.0 % Segmented Neut Absolute Manual 13.61 1.4-6.5 10 3/uL Lymphocytes Absolute Manual 0.44 1.20-3.80 10 3/uL Monocytes Absolute Manual 0.74 0.30-0.80 10 3/uL Eosinophils Absolute Manual 0.00 0.00-0.70 10 3/uL Basophils Abs Manual 0.00 0.00-0.10 1 0 3/uL Performing Lab: see note ML - [facility] LB VNCT Reviewed date:06/08/2024 04:00:58 PM Interpretation: Performing Lab:[facility], [address] [place] [address] PH:[phone] Notes/Report: Vancomycin Trough 19.4 10.0-20.0 ug/mL Dose amount, UNK Date last dose, UNK Time last dose, Unknown BLOOD CULTURE ID PANEL Reviewed date:06/26/2024 07:15:16 PM Interpretation: Performing Lab: Notes/Report: [facility] , CTX-M NOT APPLICABLE NOT DETECTE IMP NOT APPLICABLE NOT DETECTE KPC NOT APPLICABLE NOT DETECTE mcr-1 NOT APPLICABLE NOT DETECTE mecA/C NOT APPLICABLE NOT DETECTE mecA/C and MREJ (MRSA) NOT APPLICABLE NOT DETECTE NDM NOT APPLICABLE NOT DETECTE OXA-48-like NOT APPLICABLE NOT DETECTE Gonzalo/B NOT APPLICABLE NOT DETECTE VIM NOT APPLICABLE NOT DETECTE Source BLOOD Enterococcus faecalis NOT DETECTED NOT DETECTE Enterococcus faecium NOT DETECTED NOT DETECTE Listeria monocytogenes NOT DETECTED NOT DETECTE Staphylococcus spp. NOT DETECTED NOT DETECTE Staphylococcus aureus NOT DETECTED NOT DETECTE Staphylococcus epidermidis NOT DETECTED NOT DETECTE Staphylococcus lugdunensis NOT DETECTED NOT DETECTE Streptococcus spp. NOT DETECTED NOT DETECTE Streptococcus agalactiae NOT DETECTED NOT DETECTE Streptococcus pneumoniae NOT DETECTED NOT DETECTE Streptococcus pyogenes NOT DETECTED NOT DETECTE A. calcoaceticus-baumanni i Cpx NOT DETECTED NOT DETECTE Bacteroides fragilis NOT DETECTED NOT DETECTE Enterobacterales NOT DETECTED NOT DETECTE Enterobacter cloacae complex NOT DETECTED NOT DETECTE Escherichia coli NOT DETECTED NOT DETECTE Klebsiella aerogenes NOT DETECTED NOT DETECTE Klebsiella oxytoca NOT DETECTED NOT DETECTE Klebsiella pneumoniae group NOT DETECTED NOT DETECTE Proteus spp. NOT DETECTED NOT DETECTE Salmonella spp. NOT DETECTED NOT DETECTE Serratia marcescens NOT DETECTED NOT DETECTE Haemophilus influenzae NOT DETECTED NOT DETECTE Neisseria meningitidis NOT DETECTED NOT DETECTE Pseudomonas aeruginosa NOT DETECTED NOT DETECTE Stenotrophomonas maltophilia NOT DETECTED NOT DETECTE Valarie albicans NOT DETECTED NOT DETECTE Valarie auris NOT DETECTED NOT DETECTE Valarie glabrata NOT DETECTED NOT DETECTE Valarie krusei NOT DETECTED NOT DETECTE Valarie parapsilosis NOT DETECTED NOT DETECTE Valarie tropicalis NOT DETECTED NOT DETECTE Cryptococcus neoformans/gattii NOT DETECTED NOT DETECTE Performing Lab: see note - [facility] LB Aerobe ID + Suscept Reviewed date:06/30/2024 07:38:21 PM Interpretation: Performing Lab: Notes/Report: [facility] , Aerobe ID + Suscept See Below For Report Aerobe ID + Suscept O:ACTSP Isolated Aerobe ID + Suscept Specimen has been received and testing has been initiated. Aerobe ID + Suscept O:ACTSP Isolated Aerobe ID + Suscept Organism: Actinomyce s species : Aerobe ID + Suscept O:ACTSP Isolated Aerobe ID + Suscept *ABNORMAL* Aerobe ID + Suscept O:ACTSP Isolated Aerobe ID + Suscept Received aerobic bottle only. Aerobe ID + Suscept O:ACTSP Isolated Aerobe ID + Suscept Actinomyces species Aerobe ID + Suscept O:ACTSP Isolated Aerobe ID + Suscept See Below For Report Aerobe ID + Suscept O:ACTSP Isolated Aerobe ID + Suscept Performed at: [facility] Aerobe ID + Suscept O:ACTSP Isolated Aerobe ID + Suscept [id number], [place] [id number] Aerobe ID + Suscept O:ACTSP Isolated Aerobe ID + Suscept Glue Sprayer: Vishnu Stack PhD, Phone: [phone] Aerobe ID + Suscept O:ACTSP Isolated Performing Lab: see note LC - [facility] LB SEE REPORT - Operations Trainer Id information not found for OBX-specific digital producer legend PROF CHEM 8 (BAS METB) Reviewed date:07/11/2024 01:11:18 PM Interpretation: Performing Lab: Notes/Report: [facility] , Sodium 138 136-145 mmol/L Potassium 3.5 3.5-5.1 mmol/L Chloride 100 98-107 mmol/L Carbon Dioxide 35.9 21.0-32.0 mmol/L Anion Gap 5.6 Glucose 116 74-106 mg/dL Blood Urea Nitrogen 21.0 7.0-18.0 mg/dL Creatinine 1.15 0.70-1.30 mg/dL Estimated GFR ( Cierra >60 >=60 mL/min/1.73m 2 Estimated GFR (Non- Marti >60 >=60 mL/min/1.73m 2 BUN Creatinine Ratio 18.3 Calcium 8.6 8.5-10.1 mg/dL Performing Lab: see note ML - [facility] LB CBC AUTO DIFF (Not yet revie wed by provider) Interpretation: Performing Lab: Notes/Report: [facility] , White Blood Count 7.7 4.0-11.0 10 3/uL Red Blood Count 3.15 4.70-6.10 10 6/uL Hemoglobin 9.5 14.0-18.0 g/dL Hematocrit 29.7 42.0-54.0 % Mean Corpuscular Volume 94.3 80.0-94.0 fL Mean Corpuscular Hemoglobin 30.2 25.9-34.0 pg Mean Corpuscular HGB Conc 32.0 29.9-35.2 g/dL Red Cell Distribution Width 17.2 11.0-15.0 % Platelet Count 546 150-450 10 3/uL Mean Platelet Volume 9.9 9.5-13.5 fL Performing Lab: see note ML - [facility] LB MAGNESIUM (Not yet reviewed by provider) Interpretation: Performing Lab: Notes/Report: [facility] , Magnesium 1.6 1.8-2.4 mg/dL Performing Lab: see note ML - [facility] LB PROF 14(COMP METB) (Not yet reviewed by provider) Interpretation: Performing Lab: Notes/Report: [facility] , Sodium 145 136-145 mmol/L Potassium 4.0 3.5-5.1 mmol/L Chloride 104 98-107 mmol/L Carbon Dioxide 36.8 21.0-32.0 mmol/L Anion Gap 8.2 Glucose 136 74-106 mg/dL Blood Urea Nitrogen 19.0 7.0-18.0 mg/dL Creatinine 1.24 0.70-1.30 mg/dL Estimated GFR ( Cierra >60 >=60 mL/min/1.73m 2 Estimated GFR (Non- Marti 56 >=60 mL/min/1.73m 2 BUN Creatinine Ratio 15.3 Calcium 8.8 8.5-10.1 mg/dL Bilirubin Total 0.7 0.2-1.0 mg/dL Aspartate Amino Transferase 22 15-37 U/L Alanine Aminotransferase 45 16-63 U/L Alkaline Phosphatase 82 46-116 U/L Total Protein 5.8 6.4-8.2 g/dL Albumin Level 2.8 3.4-5.0 g/dL Globulin 3.0 Albumin Globulin Ratio 0.9 Performing Lab: see note ML - [facility] LB TSH (Not yet reviewed by pro vider) Interpretation: Performing Lab: Notes/Report: [facility] , Thyroid Stimulating Hormone 1.301 0.358-3.740 uIU/mL Performing Lab: see note ML - [facility] LB Manual Differential (Not yet reviewed by provider) Interpretation: Performing Lab: Notes/Report: [facility] , Segmented Neutrophils % Manual 88.0 43.0-75.0 Band Neutrophils % 3.0 0-5 % Lymphocytes Percent Manual 3.0 20.5-60.0 % Monocytes Percent Manual 1.0 1.7-12.0 % Eosinophils Percent Manual 2.0 0.9-7.0 % Basophils Percent Manual 1.0 0.2-2.0 % Metamyelocytes % 1.0 Myelocytes % Manual 1.0 Segmented Neut Absolute Manual 6.77 1.4-6.5 10 3/uL Band Neutrophils Absolute 0.2 0.0-0.3 10 3/uL Lymphocytes Absolute Manual 0.23 1.20-3.80 10 3/uL Monocytes Absolute Manual 0.07 0.30-0.80 10 3/uL Eosinophils Absolute Manual 0.15 0.00-0.70 10 3/uL Basophils Abs Manual 0.07 0.00-0.10 1 0 3/uL Metamyelocytes Absolute Manual 0.07 Myelocytes Absolute Manual 0.07 Anisocytosis 2+ Ovalocytes 2+ Performing Lab: see note ML - [facility] LB MAGNESIUM (Not yet reviewed by provider) Interpretation: Performing Lab: Notes/Report: [facility] , Magnesium 1.8 1.8-2.4 mg/dL Performing Lab: see note ML - [facility] LB PROF 14(COMP METB) (Not yet reviewed by provider) Interpretation: Performing Lab: Notes/Report: [facility] , Sodium 142 136-145 mmol/L Potassium 4.7 3.5-5.1 mmol/L Chloride 100 98-107 mmol/L Carbon Dioxide 35.7 21.0-32.0 mmol/L Anion Gap 11.0 Glucose 194 74-106 mg/dL Blood Urea Nitrogen 23.0 7.0-18.0 mg/dL Creatinine 1.18 0.70-1.30 mg/dL Estimated GFR ( Cierra >60 >=60 mL/min/1.73m 2 Estimated GFR (Non- Marti 59 >=60 mL/min/1.73m 2 BUN Creatinine Ratio 19.5 Calcium 9.4 8.5-10.1 mg/dL Bilirubin Total 0.6 0.2-1.0 mg/dL Aspartate Amino Transferase 22 15-37 U/L Alanine Aminotransferase 25 16-63 U/L Alkaline Phosphatase 80 46-116 U/L Total Protein 6.2 6.4-8.2 g/dL Albumin Level 3.0 3.4-5.0 g/dL Globulin 3.2 Albumin Globulin Ratio 0.9 Performing Lab: see note ML - [facility] LB TSH (Not yet reviewed by pro vider) Interpretation: Performing Lab: Notes/Report: [facility] , Thyroid Stimulating Hormone 1.882 0.358-3.740 uIU/mL Performing Lab: see note - [facility] LB Manual Differential (Not yet reviewed by provider) Interpretation: Performing Lab: Notes/Report: [facility] , Segmented Neutrophils % Manual 74.0 43.0-75.0 Lymphocytes Percent Manual 5.0 20.5-60.0 % Monocytes Percent Manual 20.0 1.7-12.0 % Eosinophils Percent Manual 0.0 0.9-7.0 % Basophils Percent Manual 1.0 0.2-2.0 % Segmented Neut Absolute Manual 9.32 1.4-6.5 10 3/uL Lymphocytes Absolute Manual 0.63 1.20-3.80 10 3/uL Monocytes Absolute Manual 2.52 0.30-0.80 10 3/uL Eosinophils Absolute Manual 0.00 0.00-0.70 10 3/uL Basophils Abs Manual 0.12 0.00-0.10 1 0 3/uL Nucleated Red Blood Cells 1 Anisocytosis 2+ Performing Lab: see note - [facility] LB Manual Differential Reviewed date:07/11/2024 01:11:18 PM Interpretation: Performing Lab: Notes/Report: [facility] , Segmented Neutrophils % Manual 77.0 43.0-75.0 Lymphocytes Percent Manual 16.0 20.5-60.0 % Monocytes Percent Manual 2.0 1.7-12.0 % Eosinophils Percent Manual 4.0 0.9-7.0 % Basophils Percent Manual 1.0 0.2-2.0 % Segmented Neut Absolute Manual 1.07 1.4-6.5 10 3/uL Lymphocytes Absolute Manual 0.22 1.20-3.80 10 3/uL Monocytes Absolute Manual 0.02 0.30-0.80 10 3/uL Eosinophils Absolute Manual 0.05 0.00-0.70 10 3/uL Basophils Abs Manual 0.01 0.00-0.10 1 0 3/uL Ovalocytes 1+ Performing Lab: see note [facility] LB PROF 14(COMP METB) Reviewed date:07/11/2024 01:11:18 PM Interpretation: Performing Lab: Notes/Report: [facility] , Sodium 141 136-145 mmol/L Potassium 4.6 3.5-5.1 mmol/L Chloride 103 98-107 mmol/L Carbon Dioxide 34.4 21.0-32.0 mmol/L Anion Gap 8.2 Glucose 163 74-106 mg/dL Blood Urea Nitrogen 23.0 7.0-18.0 mg/dL Creatinine 0.99 0.70-1.30 mg/dL Estimated GFR ( Cierra >60 >=60 mL/min/1.73m 2 Estimated GFR (Non- Marti >60 >=60 mL/min/1.73m 2 BUN Creatinine Ratio 23.2 Calcium 8.8 8.5-10.1 mg/dL Bilirubin Total 0.7 0.2-1.0 mg/dL Aspartate Amino Transferase 17 15-37 U/L Alanine Aminotransferase 33 16-63 U/L Alkaline Phosphatase 70 46-116 U/L Total Protein 5.5 6.4-8.2 g/dL Albumin Level 2.7 3.4-5.0 g/dL Globulin 2.8 Albumin Globulin Ratio 1.0 Performing Lab: see note ML - [facility] CBC AUTO DIFF Reviewed date:07/11/2024 01:11:18 PM Interpretation: Performing Lab: Notes/Report: [facility] , White Blood Count 1.4 4.0-11.0 10 3/uL Red Blood Count 3.38 4.70-6.10 10 6/uL Hemoglobin 10.2 14.0-18.0 g/dL Hematocrit 31.3 42.0-54.0 % Mean Corpuscular Volume 92.6 80.0-94.0 fL Mean Corpuscular Hemoglobin 30.2 25.9-34.0 pg Mean Corpuscular HGB Conc 32.6 29.9-35.2 g/dL Red Cell Distribution Width 15.9 11.0-15.0 % Platelet Count 133 150-450 10 3/uL Mean Platelet Volume 10.9 9.5-13.5 fL Performing Lab: see note ML - [facility] LB TSH Reviewed date:06/25/2024 07:51:18 PM Interpretation: Performing Lab: Notes/Report: [facility] , Thyroid Stimulating Hormone 2.172 0.358-3.740 uIU/mL Performing Lab: see note - [facility] LB Erythrocyte Sedimentation Ra te Reviewed date:05/27/2024 12:24:35 PM Interpretation: Performing Lab: Notes/Report: [facility] , Erythrocyte Sedimentation Rate 7 <=20 mm/hr Performing Lab: see note ML - [facility] LB PROF CHEM 8 (BAS METB) Reviewed date:05/27/2024 12:24:35 PM Interpretation: Performing Lab: Notes/Report: [facility] , Sodium 144 136-145 mmol/L Potassium 3.5 3.5-5.1 mmol/L Chloride 104 98-107 mmol/L Carbon Dioxide 37.9 21.0-32.0 mmol/L Anion Gap 5.6 Glucose 104 74-106 mg/dL Blood Urea Nitrogen 26.0 7.0-18.0 mg/dL Creatinine 0.91 0.70-1.30 mg/dL Estimated GFR ( Cierra >60 >=60 mL/min/1.73m 2 Estimated GFR (Non- Marti >60 >=60 mL/min/1.73m 2 BUN Creatinine Ratio 28.6 Calcium 9.4 8.5-10.1 mg/dL Performing Lab: see note ML - [facility] LB DIGOXIN Reviewed date:05/27/2024 12:24:35 PM Interpretation: Performing Lab: Notes/Report: [facility] , Digoxin 1.6 0.9-2.0 ng/mL Performing Lab: see note ML - [facility] LB CRP Reviewed date:05/27/2024 12:24:35 PM Interpretation: Performing Lab: Notes/Report: [facility] , C Reactive Protein <0.50 <=0.50 mg/dL Performing Lab: see note ML - [facility] LB UA (Urinalysis, Dipstix only - w/o micro) Reviewed date:11/26/2023 04:02:45 PM Interpretation: Performing Lab: Notes/Report: GLUCOSE ++++ 0 - 133 MG/DL ALBUMIN - NEG - NEG MG/DL BILIRUBIN - NEG - NEG MG/DL SPECIFIC GRAVITY 1.020 1.001 - 1.035 KETONES + NEG - NEG MG/DL BLOOD, UR - PH, UR 5.0 5 - 9 UROBILNOGEN 0.2 0.2 - 1 MG/DL NITRITE - NEG - NEG ESTERASE (ENRIQUE) + NEG - NEG MG/DL BNP Reviewed date:05/18/2024 03:53:33 PM Interpretation: Performing Lab: Notes/Report: [facility] , NT Pro B Type Natriuretic Pept 3230.0 <=1800.0 pg/mL RESULTS CALLED TO Martin Gutierrez RN @BY Pawel Villarreal [place] at [phone] Performing Lab: see note ML - [facility] LB CBC AUTO DIFF Reviewed date:05/27/2024 12:24:35 PM Interpretation: Performing Lab: Notes/Report: [facility] , White Blood Count 12.6 4.0-11.0 10 3/uL Red Blood Count 4.78 4.70-6.10 10 6/uL Hemoglobin 13.8 14.0-18.0 g/dL Hematocrit 43.9 42.0-54.0 % Mean Corpuscular Volume 91.8 80.0-94.0 fL Mean Corpuscular Hemoglobin 28.9 25.9-34.0 pg Mean Corpuscular HGB Conc 31.4 29.9-35.2 g/dL Red Cell Distribution Width 16.5 11.0-15.0 % Platelet Count 199 150-450 10 3/uL Mean Platelet Volume 12.4 9.5-13.5 fL Neutrophils Percent Auto 85.3 43.0-75.0 % Lymphocytes Percent Auto 3.8 20.5-60.0 % Monocytes Percent Auto 8.1 1.7-12.0 % Eosinophils Percent Auto 1.8 0.9-7.0 % Basophils Percent Auto 0.2 0.2-2.0 % Immature Granulocytes Pct Auto 0.8 0.0-0.5 % Neutrophils Absolute Auto 10.7 1.4-6.5 10 3/uL Lymphocytes Absolute Auto 0.5 1.2-3.8 10 3/uL Monocytes Absolute Auto 1.0 0.3-0.8 10 3/uL Eosinophils Absolute Auto 0.2 0.0-0.7 10 3/uL Basophils Absolute Auto 0.0 0.0-0.1 10 3/uL Immature Granulocytes Abs Auto 0.10 0.00-0.03 10 3/uL Performing Lab: see note ML - [facility] LB Blood Culture 1 Reviewed date:06/01/2024 04:21:11 PM Interpretation: Performing Lab: Notes/Report: [facility] , Blood Culture 1 See Below For Report Blood Culture 1 NG5D NO GROWTH AT 5 DAYS.^NO GROWTH AT 5 DAYS. Performing Lab: see note - [facility] LB PROF CHEM 8 (BAS METB) Reviewed date:05/26/2024 09:15:32 PM Interpretation: Performing Lab: Notes/Report: [facility] , Sodium 140 136-145 mmol/L Potassium 4.4 3.5-5.1 mmol/L Chloride 102 98-107 mmol/L Carbon Dioxide 34.2 21.0-32.0 mmol/L Anion Gap 8.2 Glucose 354 74-106 mg/dL Blood Urea Nitrogen 34.0 7.0-18.0 mg/dL Creatinine 1.19 0.70-1.30 mg/dL Estimated GFR ( Cierra >60 >=60 mL/min/1.73m 2 Estimated GFR (Non- Marti 59 >=60 mL/min/1.73m 2 BUN Creatinine Ratio 28.6 Calcium 8.9 8.5-10.1 mg/dL Performing Lab: see note - [facility] LB LACTATE or LACTIC ACID Reviewed date:05/26/2024 09:15:32 PM Interpretation: Performing Lab: Notes/Report: [facility] , Lactate/Lactic Acid 2.6 0.4-2.0 mmol/L RESULTS CALLED TO PEDRO LUIS YE RN Performing Lab: see note - [facility] CBC AUTO DIFF Reviewed date:05/26/2024 09:15:32 PM Interpretation: Performing Lab: Notes/Report: [facility] , White Blood Count 13.5 4.0-11.0 10 3/uL Red Blood Count 4.73 4.70-6.10 10 6/uL Hemoglobin 13.9 14.0-18.0 g/dL Hematocrit 43.2 42.0-54.0 % Mean Corpuscular Volume 91.3 80.0-94.0 fL Mean Corpuscular Hemoglobin 29.4 25.9-34.0 pg Mean Corpuscular HGB Conc 32.2 29.9-35.2 g/dL Red Cell Distribution Width 16.3 11.0-15.0 % Platelet Count 209 150-450 10 3/uL Mean Platelet Volume 12.7 9.5-13.5 fL Performing Lab: see note ML - [facility] LB Reason For Referral Diagnosis 1 Chest mass (R22.2) Referral Organization [facility] Medicine Referring Provider First Name Ross Referring Provider Last Name Luis Alberto Referring Provider Speciality Family [facility] luz maria Referred Organization [facility] Referred Provider Meeta Rodriguez Referred Address [address],[place], [place],[address],[place] Referred Provider Specialty Hematology/O ncology Referral Priority Routine Medications Medication SIG (Take, Route, Frequency, Duration) Notes Start Date End Date Status Irbesartan 150 MG 1 tablet Orally Once a day for 30 day(s) 07/22/2024 Active metFORMIN HCl 500 MG 1 tablet with a vanessa l Orally Once a day Active Spironolactone 50 MG 1 tablet Orally Onc e a day for 30 days Active Fluconazole 200 MG 1 tablet Orally once a day 07/22/2024 Active Xarelto 20 mg TAKE 1 TABLET DAILY Active Potassium Chloride ER 10 MEQ 1 tablet wi th food Orally Twice a day 07/22/2024 Active Latanoprost 0.005 % 1 drop into affected eye in the evening Ophthalmic Once a day Active Metoclopramide HCl 5 MG 1/2 tablet befor e meals Orally and at bedtime for 30 days 07/22/2024 Active Furosemide 40 MG 1 tablet Orally twic e a day Active Dorzolamide HCl-Timolol Mal PF 2-0.5 % 1 drop into affected eye Ophthalmic Twice a day Active Digoxin 250 MCG 1 tablet Orally Once a day Active Multivitamin Men - as directed Orally Active Metoprolol Tartrate 50 MG 1 tablet with food Orally Twice a day Active Social History Tobacco Use: Social History Observation Description Date Details (start date - stop date) Former Smoker 03/05/1959 - 03/05/1994 Tobacco Use/Smoking Question Answer Notes Patient is a former smoker When did you start smoking? 03/05/1959 When did you stop smoking? 03/05/1996 How long has it been since you last smoked? > 10 years Additional Findings: Tobacco User Pipe smoker Additional Findings: Tobacco Non-User Current no n-smoker Alcohol Screen (Audit-C) Question Answer Notes Did you have a drink containing alcohol in the p ast year? No Points 0 Interpretation Negative Tobacco Control (Standard) Question Answer Notes Tobacco use: Former smoker When did you start smoking? 03/05/1959 When did you stop smoking? 03/05/1994 How long has it been since you last smoked? Grea ter than 10 years AUDIT-C (Standard) Question Answer Notes Did you have a drink containing alcohol in the p ast year? 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) Active confirmed Problem 19084857 Nicotine depende nce, unspecified, uncomplicated (F17.200) Active confirmed Problem 08323761 Hypertensive hea rt disease with heart failure (I11.0) Active confirmed Problem Angina pectoris (718025906) Angina pectoris, unspecified (I20.9) Active confirmed Problem 81688011 Atherosclerotic heart disease of [place] coronary artery without angina pectoris (I25.10) Active confirmed Problem 463918137 Unspecified syst olic (congestive) heart failure (I50.20) Active confirmed Problem 610095829 Acute on chronic systolic (congestive) heart failure (I50.23) Active confirmed Problem 718393199 Cardiomegaly (I51.7) Active confirmed Problem 154420994 Occlusion and stenosis of unspecified carotid artery (I65.29) Active confirmed Problem 97166678 Centrilobular emphysema (J43.2) Active confirmed Problem 72149207 Emphysema, unspecified (J43.9) Active confirmed Problem 944668775 Chronic obstruct isaak pulmonary disease with (acute) exacerbation (J44.1) Active confirmed Problem 71324430 Acute and chroni c respiratory failure with hypoxia (J96.21) Active confirmed Problem Atrial fibrillation (disorder) (05352723) Afib (I48.91) Active confirmed Problem Hypertension (18410617) HTN (hypertension) (I10) Active confirmed Problem Edema (43382200) Edema (R60.9) Active confirmed Problem Cardiac pacemaker in situ (240191420) Pacemaker (Z95.0) Active confirmed Problem Chronic kidney disease stage 2 (165784745) Chronic kidney disease (CKD) stage G2/A1, mildly decreased glomerular filtration rate (GFR) between 60-89 mL/min/1.73 square meter and albuminuria creatinine ratio less than 30 mg/g (N18.2) Active confirmed Problem Eczema (07114260) Eczema (L30.9) Active confirm ed Problem Paroxysmal atrial fibrillation (061629881) Paroxysmal atrial fibrillation (I48.0) Active confirmed Problem Congestive heart failure (67809754) CHF (congestive heart failure) (I50.9) Active confirmed Problem Hypertriglyceridemia (826690953) Hypertriglyceridemia (E78.1) Active confirmed Problem Murmur (996375086) Murmur (R01.1) Active confir med Problem 03362319 Acute bronchitis , unspecified organism (J20.9) Active confirmed Problem Overweight (444899401) Over weight (E66.3) Active confirmed Problem Leukocytosis (774513932) Leukocytosis (D72.829) Active confirmed Problem Basal cell carcinoma of nose (286083083) Basal cell carcinoma of nose (C44.311) Active confirmed Problem Chest mass (076012731) Chest mass (R22.2) Active confirmed Problem Chronic obstructive pulmonary disease (47758278) Advanced COPD (J44.9) Active confirmed Problem Adenocarcinoma of prostate (121605634) Adenocarcinoma of prostate (C61) Active confirmed Problem Dilated cardiomyopathy (988445452) Cardiomyopathy, dilated (I42.0) Active confirmed Problem Emphysema (80983682) Emphysema (J43.9) Active c onfirmed Problem Type 2 diabetes mellitus with peripheral angiopathy (044364872) Type 2 diabetes w diabetic peripheral angiopath w/o gangrene (E11.51) Active confirmed Problem Essential hypertension (06518795) BP (high blood pressure) (I10) Active confirmed Problem Exudative age-relate d macular degeneration (718251272) 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) Active confirmed Problem Primary hypertension (95829060) Primary hypertension (I10) Active confirmed Problem Body fluid retention (18216196) Body fluid retention (R60.9) Active confirmed Problem 24944368 Other hyperlipid emia (E78.49) Active confirmed Problem Longstanding persistent atrial fibrillation (853483463) Longstanding persistent atrial fibrillation (I48.11) Active confirmed Problem 136278942 Permanent atrial fibrillation (I48.21) Active confirmed Problem Chronic atrial fibrillation (350116504) Atrial fibrillation, permanent (I48.21) Active confirmed Problem Diabetes mellitus (07777977) Diabetes mellitus (E11.9) Active confirmed Vital Signs Heart Rate 73 /min 03/19/2024 Oximetry 95 % 04/11/2024 Blood pressure diastolic 58 mm Hg 07/03/2024 Height 66 in 07/03/2024 Blood pressure systolic 102 mm Hg 07/03/2024 Weight 145.4 lbs 07/03/2024 BMI 23.47 kg/m2 07/03/2024 Procedures Procedure Date Ordered Date Performed Result Body Sit e Pulse Oximetry- Performed 01/10/2024 N/A INHAL. Treatment Initial Dose- perfromed 01/10/2024 N/A Encounters Encounter Location Date Provider Diagnosis [address] [address] 09/19/2023 Ross Hoy CHF (congestive hear t failure) I50.9 ; Adenocarcinoma of prostate C61 ; Paroxysmal atrial fibrillation I48.0 ; Diabetes mellitus E11.9 and HTN (hypertension) I10 [address] [address] 12/20/2023 Ross Hoy HTN (hypertension) I 10 ; Paroxysmal atrial fibrillation I48.0 ; Diabetes mellitus E11.9 ; Adenocarcinoma of prostate C61 and Gastro-esophageal reflux disease without esophagitis K21.[address] [address] 11/26/2023 Ross Hoy Dysuria R30.[address] [address] 03/19/2024 Ross Hoy 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 H35.3211 ; Chronic obstructive pulmonary disease with (acute) exacerbation J44.1 ; Diabetes mellitus E11.9 ; Adenocarcinoma of prostate C61 and Chest mass R22.[address] [address] 01/10/2024 Ross Hoy Hypoxia R09.[address] [address] 01/22/2024 Ross Hoy Diabetes mellitus E1 1.9 ; HTN (hypertension) I10 ; CHF (congestive heart failure) I50.9 ; Paroxysmal atrial fibrillation I48.0 and Lung mass R91.8 [facility] [address] [place] [address] 02/28/2024 Ross Sahu Type 2 diabetes w di abetic peripheral angiopath w/o gangrene E11.51 ; Secondary hyperaldosteronism E26.1 ; Angina pectoris, unspecified I20.9 and Chest mass R22.2 [facility] Oncology [address] [place] [address] 03/13/2024 [facility] Oncology [address] [place] [address] 03/25/2024 [facility] [address] [place] [address] 06/23/2024 Ross Sahu Acute on chronic sys tolic (congestive) heart failure I50.23 and Gastro-esophageal reflux disease without esophagitis K21.9 [facility] Oncology [address] [place] [address] 04/15/2024 [facility] [address] [place] [address] 04/11/2024 Ross Sahu Acute on chronic sys tolic (congestive) heart failure I50.23 ; Longstanding persistent atrial fibrillation I48.11 and Type 2 diabetes w diabetic peripheral angiopath w/o gangrene E11.51 [facility] Oncology [address] [place] [address] 04/29/2024 [facility] [address] [place] [address] 01/16/2024 Ross Sahu [facility] [address] [place] [address] 02/13/2024 Ross Sahu [facility] [address] [place] [address] 02/22/2024 Ross Sahu [facility] [address] [place] [address] 02/28/2024 Ross Hoy [facility] Oncology [address] [place] [address] 05/20/[address] [facility] Oncology [address] [place] [address] 06/24/[address] [facility] Oncology [address] [place] [address] 06/24/[address] [facility] Oncology [address] [place] [address] 07/01/2024 Meeta [facility] [address] [place] [facility] [address] 07/03/2024 Ross Sahu CHF (congestive hear t failure) I50.9 ; Gastro-esophageal reflux disease without esophagitis K21.9 ; Hypertriglyceridemia E78.1 and Edema R60.9 [facility] Oncology [address] [place] [address] 07/15/[address] [facility] Oncology [address] [place] [address] 07/22/[address] [facility] Oncology [address] [place] [address] 07/22/2024 Meeta [facility] Medicine [address] [place] [facility] [place] [address] 02/28/2024 Ross Sahu [facility] Medicine [address] [place] [place] [place] [address] 03/01/2024 Ross Sahu [facility] [address] [place] [facility] [place] [address] 03/19/2024 [facility] [address] [place] [facility] [place] [address] 04/07/2024 Ross vasquez [facility] Medicine [address] [place] [facility] [place] [address] 04/07/2024 Ross vasquez [facility] [address] [place] [facility] [place] [address] 04/09/2024 Ross [facility] [address] [place] [facility] [place] [address] 04/09/2024 Ross [facility] [address] [place] [address] 04/11/2024 Ross [facility] [address] [place] [address] 04/16/2024 [facility] [address] [place] [address] 04/28/2024 [facility] [address] [place] [address] 05/13/2024 Ross [facility] [address] [place] [address] 05/14/2024 Ross [facility] [address] [facility] [place] [address] 05/19/2024 Ross [facility] [address] [facility] [place] [address] 05/20/2024 Ross [facility] [address] [place] [address] 05/21/2024 [facility] [address] [place] [address] 05/21/2024 Ross [facility] [address] [place] [address] 06/06/2024 Ross [facility] [address] [place] [address] 06/23/2024 Ross [facility] [address] [place] [address] 06/25/2024 Ross [facility] [address] [place] [address] 06/26/2024 Ross [facility] [address] [place] [address] 06/30/2024 Ross [facility] [address] [place] [address] 07/01/2024 Ross [facility] [address] [place] [facility] [place] [address] 07/03/2024 Ross Sahu [facility] [address] [place] [facility] [place] [place] [address] 07/07/2024 Ross Sahu [facility] [address] [place] [place] [place] [address] 07/09/2024 Ross Sahu [facility] [address] [place] [place] [place] [address] 07/11/2024 Ross vasquez [facility] [address] [place] [facility] [place] [address] 07/15/2024 Ross vasquez [facility] [address] [place] [facility] [place] [address] 07/22/2024 Ross vasquez [facility] [address] [place] [facility] [place] [place] [address] 07/22/2024 Ross [facility] [address] [place] [place] [address] 07/25/2024 Ross Sahu Assessments Encounter Date Diagnosis (ICD Code) Assessment Notes Treatment Notes Treatment Clinical Notes Section Notes 09/19/2023 CHF (congestive hear t failure) (ICD-10 - I50.9) no signs 09/19/2023 Adenocarcinoma of prostate (ICD-10 - C61) seeding uriology 12/20/2023 HTN (hypertension) (ICD-10 - I10) 12/20/2023 Paroxysmal atrial fibrillation (ICD-10 - I48.0) 11/26/2023 Dysuria (ICD-10 - R30.0) 03/19/2024 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 (ICD-10 - H35.3211) 03/19/2024 Chronic obstructive pulmonary disease with (acute) exacerbation (ICD-10 - J44.1) 01/10/2024 Hypoxia (ICD-10 - R09.02) Likely CHJF - referred to Er 01/22/2024 Diabetes mellitus (ICD-10 - E11.9) 01/22/2024 HTN (hypertension) (ICD-10 - I10) 02/28/2024 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) 02/28/2024 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) 06/23/2024 Acute on chronic systolic (congestive) heart failure (ICD-10 - I50.23) 06/23/2024 Gastro-esophageal re flux disease without esophagitis (ICD-10 - K21.9) 04/11/2024 Acute on chronic systolic (congestive) heart failure (ICD-10 - I50.23) 04/11/2024 Longstanding persist ent atrial fibrillation (ICD-10 - I48.11) 07/03/2024 CHF (congestive hear t failure) (ICD-10 - I50.9) 07/03/2024 Gastro-esophageal re flux disease without esophagitis (ICD-10 - K21.9) 07/03/2024 Hypertriglyceridemia (ICD-10 - E78.1) 04/11/2024 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) 02/28/2024 Angina pectoris, unspecified (ICD-10 - I20.9) 01/22/2024 CHF (congestive hear t failure) (ICD-10 - I50.9) 03/19/2024 Diabetes mellitus (ICD-10 - E11.9) 12/20/2023 Diabetes mellitus (ICD-10 - E11.9) 09/19/2023 Paroxysmal atrial fibrillation (ICD-10 - I48.0) no palitation 09/19/2023 Diabetes mellitus (ICD-10 - E11.9) 90-100's - no changes 12/20/2023 Adenocarcinoma of prostate (ICD-10 - C61) 03/19/2024 Adenocarcinoma of prostate (ICD-10 - C61) 01/22/2024 Paroxysmal atrial fibrillation (ICD-10 - I48.0) 02/28/2024 Chest mass (ICD-10 - R22.2) 07/03/2024 Edema (ICD-10 - R60.9) 01/22/2024 Lung mass (ICD-10 - R91.8) 03/19/2024 Chest mass (ICD-10 - R22.2) 12/20/2023 Gastro-esophageal re flux disease without esophagitis (ICD-10 - K21.9) 09/19/2023 HTN (hypertension) (ICD-10 - I10) controlled 07/03/2024 Other ldfingh lisinopril, glimepoeride, irone and chol meds for the weekend Plan Of Treatment Pending Test Test Name Order Date CMP (COMPLETE METABOLIC PANEL) 4 HEMOGLOBIN A1C (GLYCO) 06/21/2023 LIPID PANEL (CHOL/TRIG/HDL/LDL) 06/21/19 24 CBC WITH DIFF 06/21/2023 URIC ACID 06/21/2023 INHAL. Treatment Initial Dose- perfromed 01/10/2024 Pulse Oximetry- Performed 01/10/2024 PSA-FREE AND TOTAL 02/28/2024 PSA-FREE AND TOTAL 06/21/2023 MRI Pancreas w/ + w/o contrast 3 CA 19-9 09/24/2022 CA 19-9 02/28/2024 CBC AUTO DIFF 07/15/2024 CBC AUTO DIFF 07/22/2024 FERRITIN 07/18/2024 IRON AND TIBC 07/18/2024 MAGNESIUM 07/22/2024 MAGNESIUM 07/15/2024 PROF 14(COMP METB) 07/22/2024 PROF 14(COMP METB) 07/15/2024 TSH 07/22/2024 TSH 07/15/[address] SKULL BASE MID THIGH 01/22/2024 THYROID PANEL (T4/TSH/FREE T3) 4 Manual Differential 07/15/2024 Manual Differential 07/22/2024 Insurance Providers Payer Name Payer Address Payer Phone Subscriber Number Group Number Insured Name Patient Relationship to Insured Coverage Start Date Coverage End Date [employer] MED[employer]ARE [address] [place], [place] [phone] [id number] Khadar Ramos Self - patient is the insured 4 Medical (General) History Medical History History ICD Code Acute bronchitis, unspecified organism J 20.9 Over weight E66.3 CHF (congestive heart failure) I50.9 Edema R60.9 Body fluid retention R60.9 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
--- OUTSIDE RECORDS SUMMARY | 2024-07-27 12:33 | XMS_ITS | Encounter Summary ---
Author Organization [facility] Address [address] [place] [address] Care Team Providers Care Wool Washing Machine Operator Name Role Phone Unavailable Primary Care Provider Unavailabl e Reason for Visit * Reason Comments Med Refill Encounter Details Date Type Department Care Team (Late st Contact Info) Description 01/27/2023 Refill [facility] [address] [place] [phone] Aris Engle DO [address] [place] [address] Primary open angle glaucoma (POAG) of both eyes, mild stage (CMS/HCC) (Primary Dx) Social History Tobacco Use Types Packs/Day Years Used Date Smoking Tobacco: Never Sex and Gender Information Value Date Recorded Sex Assigned at Not on file Legal Sex Male 8:35 PM EDT Gender Identity Not on file Sexual Orientation Not on file documented as of this encounter Plan of Treatment Upcoming Encounters Date Type Department Care Team (Late st Contact Info) Description 07/29/2024 10:30 AM EDT Office Visit [facility] [address] [place] [address] Aris Engle DO [address] [place] [address] documented as of this encounter Visit Diagnoses Diagnosis Primary open angle glaucoma (POAG) of both eyes, mild stage- Primary documented in this encounter
--- OUTSIDE RECORDS SUMMARY | 2024-07-27 12:33 | XMS_ITS | Clinical Summary ---
Author Organization [facility] Address [address] [place] [address] Care Team Providers Care Loan Servicing Representative Name Role Phone Jaxon Sahu MD Primary Care Provider [phone] Allergies No known active allergies Medications amLODIPine-escobar zepril (LOTREL) 10-20 mg per capsule Take 1 capsule by mouth once daily. Active rivaroxaban (XARELTO) 20 mg tablet Take 20 mg by mouth once daily. Active Cinnamon Bark (CINNAMON) 500 mg cap Take 1,000 mg by mouth once daily. Active Multivitamin capsule Take 1 capsule by mouth once daily. Active DOCOSAHEXANOIC ACID/EPA (FISH OIL ORAL) Take by mouth. Active metFORMIN (GLUCOPHAGE) 500 mg tabletIndicatio ns:Cancer of prostate w/med recur risk (T2b-c or [place] 7 or PSA 10-20) (HCC) 05/23/2016 Active glimepiride (AMARYL) 2 mg tablet Take 2 mg by mouth once daily. 3 04/26/2017 Active IRON,CARB/VIT C/VIT B12/FOLIC (IRON 100 PLUS ORAL) Take by mouth. Active metoprolol succinate ER (TOPROL XL) 50 mg 24 hr tablet Take 75 mg by mouth once daily. Active simvastatin (ZOCOR) 20 mg tablet 04/15/2018 Active amLODIPine (NORVASC) 10 mg tablet Take 10 mg by mouth once daily. Active cefdinir (OMNICEF) 300 mg capsule Take 300 mg by mouth two times a day. Active furosemide (LASIX) 40 mg tablet Take 40 mg by mouth once daily. Active lisinopril (ZESTRIL) 20 mg tablet Take 20 mg by mouth once daily. Active potassium chloride (K-TAB) 10 mEq tablet Take 10 mEq by mouth two times a day. Active predniSONE (DELTASONE) 10 mg tablet Take 10 mg by mouth once daily. Active fluconazole (DIFLUCAN) 200 mg tablet Take 200 mg by mouth once daily. Active LATANOPROST OPHTHALMIC Use in eyes. Active empagliflozin (JARDIANCE) 10 mg tablet Take 10 mg by mouth daily with breakfast. Active pantoprazole DR (PROTONIX) 40 mg tablet Take 40 mg by mouth once daily. Active Active Problems Problem Noted Date Diagnosed Date History of prostate cancer 06/09/2015 Malignant neoplasm of prostate 07/01/2014 Atrial fibrillation 05/28/2014 Hypertension 05/28/2014 Hyperlipidemia 05/28/2014 Encounters Date Type Department Care Team Description 05/21/2024 Telephone Radiation Oncology [address] [place] [address] [place] [address] Yanelis Pena MD Appointment 05/08/2024 Telephone Radiation Oncology [address] [place] [address] [place] [address] Yanelis Pena MD Materials Development Engineer - Other; Future Appointment 05/08/2024 Results Follow-Up Radiation Oncology [address] [address] Edyta Aj, RN Future Appointment 04/30/2024 7:49 AM EST - 04/30/2024 11:59 PM [facility] Hospital Encounter Radiology Pet CT [address] [place] [address] Malignant neoplasm of unspecified part of unspecified bronchus or lung (HCC) [C34.90] Discharge Disposition: Home from Last 3 Months Family History Medical History Relation Comments Ischemic Heart Disease Father at age 53 Breast Cancer Sister 1 breast Cancer Sister 1 breast Cancer Sister 2 breast Cancer Sister 3 breast Relation Status Comments Father Sister 1 Sister 2 Sister 3 Social History Tobacco Use Types Packs/Day Years Used Date Smoking Tobacco: Former Cigarettes 2 30 0 03/05/1969 - 03/05/1999 Smokeless Tobacco: Never Alcohol Use Standard Drinks/Week Comments No 0 (1 standard drink = 0.6 oz pur e alcohol) Area Deprivation Index Answer Date Dev rded National Score (1-100), lower number is lower ri sk 64 04/16/2024 State Score (1-10), lower number is lower risk 4 04/16/2024 Data from: https://www.neigh borhoodatlas.medicine.[facility]/. Last address used for calculation [address] 04/16/2024 Sex and Gender Information Value Date Recorded Sex Assigned at Not on file Legal Sex Male 10:06 AM EDT Gender Identity Not on file Sexual Orientation Not on file Occupation Industry Job Start Date Job End Date retired Not on file Not on file Not on file Last Filed Vital Signs Vital Sign Reading Time Taken Comments Blood Pressure 121/72 04/16/2024 12:56 PM EST Pulse 61 06/05/2018 9:11 AM EDT Temperature 35.9 C (96.7 F) 04/16/2024 12:56 PM EST Respiratory Rate 18 04/16/2024 12:5 6 PM EST Oxygen Saturation 88% 04/16/2024 12: 56 PM EST Inhaled Oxygen Concentration - - Weight 75.2 kg (165 lb 12.6 oz) 025 12:56 PM EST Height 167.6 cm (5' 5.98 ) 06/07/2016 9:20 AM ED T Body Mass Index 26.77 06/07/2016 9:20 AM EDT Plan of Treatment Health Maintenance Due Date Last Done Comments Anxiety Screening 02/16/1960 Depression Screening 02/16/1960 DTaP,Tdap,Td Vaccine (1 - Tdap) 1961 Diabetes Screening 1987 Shingrix Vaccine (1 of 2) 02/16/1992 RSV Vaccine (1 - 1-dose 75+ series) 2017 Pneumococcal Vaccine: 50+ (2 of 2 - PPSV23) 12/20/2017 12/20/2016 Covid-19 Vaccine (5 - 2023-2 5 season) 2023 11/23/2021, 12/30/2020, 05/13/2020, Additional history exists Advance Directive Discussion 03/05/2024 Influenza Vaccine (Season Ended) 2024 Procedures Procedure Name Priority Date/Time Associated Diagnosis Comments NM PET/CT SKULL-THIGH SUBSEQUENT Routine 04/30/2024 9:22 AM EST Malignant neoplasm of unspecified part of unspecified bronchus or lung (HCC) GLUCOSE, BLOOD (POC) Routine 04/30/2024 7:56 AM EST from Last 3 Months Results * NM PET/CT SKULL-THIGH SUBSEQUENT (04/30/2024 9:22 AM EST) Anatomical Region Laterality Modality Nuclear Medicine , Nuclear Medicine 04/30/2024 9:22 AM EST Narrative 05/01/2024 11:47 AM EST * * *Final Report* * * DATE [...] * Uptake Time: 53 minutes * Radiopharmaceutical: H91-Fqhmoidpuqvchvxjoz (FDG) COMPARISON: No previous FDG PET/CT available CORRELATION: 04/09/[address] RESULT: REFERENCES: FDG uptake is [...] No radiotracer avid thyroid nodule. CHEST: Lungs & Pleura: 3.7 cm left upper lobe mass [...] any questions regarding this interpretation, please call [phone]. If you are unable to reach us at the number above, please feel free to contact [facility] at [phone]. Procedure Note Provider, [facility] [place] - 05/01/2024 * * *Final Report* * * DATE [...] * Uptake Time: 53 minutes * Radiopharmaceutical: I47-Sduvzvwkerqwekpffh (FDG) COMPARISON: No previous FDG PET/CT available [...] No radiotracer avid thyroid nodule. CHEST: Lungs & Pleura: 3.7 cm left upper lobe mass on CT image 83 with max SUV 7.1. Multiple left lung pulmonary nodules measuring up to 0.8 cm on image 92 with max SUV3.2. Some findings may be below FDG PETresolution. Lymph Nodes: 0.8 cm AP window node on image 102, max SUV 4.6. Smaller mildly avid left hilar node may also be metastatic. Mediastinum: Redemonstration of the proximal esophagus, no focal abnormal uptake. Cardiovascular: Blood pool activity. No pericardial effusion. Normal heart size. Chest Wall: No radiotracer avid soft tissue lesion. Left chest pacemaker/AICD, nonspecific uptake posterior to the battery pack, maxSUV ABDOMEN AND PELVIS: Hepatobiliary: No radiotracer avid [...] any questions regarding this interpretation, please call [phone]. If you are unable to reach us at the number above, please feel free to contact [facility] at [phone]. [facility] [place]-PAMA Final Resul t * GLUCOSE, BLOOD (POC) (04/30/2024 7:56 AM EST) [facility] Glucose, Point of Care 95 74 - 99 mg/dL [facility] Comment: Location:[facility], [address] [place] [address] [place], [place], [address] The Accu-Chek Inform II glucose meter has [...] blood gas instrument) in the above situations. 04/30/2024 7:56 AM EST us [facility] Provider POC TESTING Final Result [facility] POINT OF CARE [address] [place], [place] from Last 3 Months Insurance [employer] [facility] Address: [facility] [id number] [place] [id number] Care Teams Loan Servicing Representative Relationship Specialty Start Date End Date Jaxon Sahu MD PCP - General Family Medicine 05/26/14
--- NOTE | 2024-07-27 12:36 | ECG_ITS ---
[facility] Test Date: 2024-07-27 Pat Name: KHADAR RAMOS Department: Room: - Gender: Male Booth Cleaner: : 1940 Requested By: 1030 Order Number: [id number] Rajesh MD: SANJEEV MOREIRA M.D. Measurements Intervals [place] Rate: 80 P: 90 IN: 298 QRS: -86 QRSD: 128 T: 100 QT: 344 QTc: 380 Interpretive Statements 11453 Atrial fibrillation with aberrant conduction, or ventricular premature complexes 2450 Right bundle branch block 2630 Left anterior fascicular block 3133 Anterior myocardial infarction, probably old 9150 abnormal ECG Compared to ECG 05/26/2024 15:16:55 No significant changes Electronically Signed On 07-27-2024 14:05:20 EDT by SANJEEV MOREIRA M.D.
--- NOTE | 2024-07-27 12:36 | ED.GENADUL1 ---
HPI HPI - General Adult General Chief complaint: Weakness Stated complaint: weakness Time Seen by Provider: 07/27/24 12:23 Source: patient Mode of arrival: Wheelchair Limitations: no limitations History of Present Illness HPI narrative: 84-year-old male presents for not feeling well. He has lung cancer and is getting chemotherapy every 3 weeks. He had his second round last week and has not been feeling well. He has been weak and has not been able to eat or drink anything. No fever or complaints of chest pain or abdominal pain. Related Data Home Medications ?Medication ?Instructions ?Recorded ?Confirmed metformin 500 mg tablet 500 mg PO .QD 09/23/22 07/27/24 pantoprazole 40 mg tablet,delayed 40 mg PO DAILY 09/23/22 07/27/24 release rivaroxaban 20 mg tablet (Xarelto) 20 mg PO DAILY 09/23/22 07/27/24 dorzolamide 22.3 mg-timolol 6.8 1 drp ophthalmic (eye) BID 01/10/24 07/27/24 mg/mL eye drops empagliflozin 10 mg tablet 10 mg PO DAILY 01/10/24 07/27/24 (Jardiance) latanoprost 0.005 % eye drops 1 drp ophthalmic (eye) QPM 01/10/24 07/27/24 multivitamin (Daily Multi-Vitamin 1 tab PO DAILY 01/10/24 07/27/24 tablet) omega 3-rsh-eyw-fish oil 300 1 cap PO DAILY 01/10/24 07/27/24 mg-1,000 mg capsule (Fish Oil) furosemide 40 mg tablet (Lasix) 40 mg PO Q12H 05/26/24 07/27/24 glimepiride 2 mg tablet 1 mg PO DAILY 07/27/24 07/27/24 irbesartan 150 mg tablet 150 mg PO .QD 07/27/24 07/27/24 metoclopramide HCl 5 mg tablet 5 mg PO ACHS 07/27/24 07/27/24 potassium chloride 10 mEq 10 meq PO BID 07/27/24 07/27/24 tablet,extended release (Klor-Con) prochlorperazine maleate 10 mg 10 mg PO Q8H PRN nausea and 07/27/24 07/27/24 tablet vomiting spironolactone 50 mg tablet 50 mg PO QAM 07/27/24 07/27/24 Previous Rx's ?Medication ?Instructions ?Recorded amlodipine 10 mg tablet 10 mg PO DAILY #30 tabs 04/07/24 digoxin 250 mcg (0.25 mg) tablet 250 mcg PO DAILY #30 tabs 05/17/24 metoprolol tartrate 50 mg tablet 50 mg PO BID #60 tabs 05/17/24 Allergies Allergy/AdvReac Type Severity Reaction Status Date / Time No Known Drug Allergies Allergy Verified 07/27/24 12:29 Opioid HPI Opioid Management Most Recent Opioid Data: Last Pain Scale 2 05/27/24, 12:53 Last Pain Intensity 2 05/27/24, 12:53 Last ORT Total Score 0 05/26/24, 18:14 Last ORT Risk Category Low Risk 05/26/24, 18:14 Review of Systems ROS Narrative A ten point review of systems is negative except as noted above. [facility] Medical History (Updated 07/27/24 @ 13:35 by Remi Ren MD) Lung cancer ?C34.90 - Malignant neoplasm of unspecified part of unspecified bronchus or lung (ICD-10) Bacteremia ?R78.81 - Bacteremia (ICD-10) Glaucoma ?H40.9 - Unspecified glaucoma (ICD-10) Hypoxia ?R09.02 - Hypoxemia (ICD-10) Respiratory distress ?R06.03 - Acute respiratory distress (ICD-10) Congestive heart failure ?I50.9 - Heart failure, unspecified (ICD-10) CAD (coronary artery disease) ?I25.10 - Atherosclerotic heart disease of [place] coronary artery without angina pectoris (ICD-10) Pneumonia ?J18.9 - Pneumonia, unspecified organism (ICD-10) Acute on chronic systolic (congestive) heart failure ?I50.23 - Acute on chronic systolic (congestive) heart failure (ICD-10) Hypoxia ?R09.02 - Hypoxemia (ICD-10) COPD (chronic obstructive pulmonary disease) ?J44.9 - Chronic obstructive pulmonary disease, unspecified (ICD-10) Congestive heart failure ?I50.9 - Heart failure, unspecified (ICD-10) Hematuria ?R31.9 - Hematuria, unspecified (ICD-10) Atrial fibrillation ?I48.91 - Unspecified atrial fibrillation (ICD-10) CHF (congestive heart failure) ?I50.9 - Heart failure, unspecified (ICD-10) Diabetes mellitus ?E11.9 - Type 2 diabetes mellitus without complications (ICD-10) Hypertension ?I10 - Essential (primary) hypertension (ICD-10) Prostate cancer ?C61 - Malignant neoplasm of prostate (ICD-10) Surgical History Pacemaker ?Z95.0 - Presence of cardiac pacemaker (ICD-10) H/O hernia repair ?Z98.890 - Other specified postprocedural states (ICD-10) ?Z87.19 - Personal history of other diseases of the digestive system (ICD-10) H/O heart artery stent ?Z95.5 - Presence of coronary angioplasty implant and graft (ICD-10) Family History Father Family history of myocardial infarction Family history of CHF (congestive heart failure) Brother Family history of CHF (congestive heart failure) Family history of hypertension Sister Family history of cancer Social History (Updated 05/26/24 @ 18:26 by Cristiane Gutierrez RN) Within the past year, how often did you have a drink containing alcohol: never Within the past year, how often did you have six or more drinks on one occasion: never Score interpretation: A score less than 4 is consistent with normal alcohol consumption. Smoking status: Former smoker Second hand tobacco smoke exposure: No Non-prescribed substance use: denies use Previous occupational history: retired Known occupational exposures/hazards: No Highest level of school completed/degree received: high school graduate Do you want help with school or training: No Are you now , , , , never or living with a partner: In a typical week, how many times do you talk on the telephone with family, friends, or neighbors: 3 or more times per week How often do you get together with friends or relatives: 3 or more times per week How often do you attend christianity or anabaptism services: 4 or more times per year Do you belong to any clubs or organizations such as christianity groups unions, fraternal or athletic groups, or school groups: no Total score: 3 Score interpretation: A score of greater than or equal to 2 indicates the lowest level of social isolation. Little interest or pleasure in doing things: not at all Feeling down, depressed, or hopeless: not at all Feel stressed/tense/nervous/anxious/difficulty sleeping: not at all Due to disability, difficulty making decisions: No Do you think of yourself as: straight/heterosexual Gender Identity: male Exam Narrative Exam Narrative: Nurses note and vital signs reviewed and patient is not hypoxic. General: The patient appears fatigued and in no apparent distress. Patient is resting comfortably on cart. Skin: Warm, dry, no pallor noted. There is no rash noted. Head: Normocephalic, atraumatic Eye: Normal conjunctiva, no drainage Ears, Nose, Mouth, and Throat: oral mucosa is slightly dry. Nares patent. Cardiovascular: Regular Rate and Rhythm Respiratory: Patient is in no distress, no accessory muscle use, lungs are clear to auscultation, no wheezing, rales or rhonchi Back: non-tender GI: Soft and nontender Musculoskeletal: The patient has no evidence of calf tenderness, no pitting edema, symmetrical pulses noted bilaterally Neurological: A&O, normal speech Psychiatric: Cooperative Constitutional Vital Signs, click to edit/add: Last Vital Signs Temp 97.9 F 07/27/24 12:30 Pulse 62 07/27/24 12:30 Resp 18 07/27/24 12:30 BP 150/58 H 07/27/24 12:30 Pulse Ox 94 L 07/27/24 12:54 O2 Del Method Nasal Cannula 07/27/24 12:54 O2 Flow Rate 3 07/27/24 12:54 Course Vital Signs Vital signs: Vital Signs Temperature 97.9 F 07/27/24 12:30 Pulse Rate 62 07/27/24 12:30 Respiratory Rate 18 07/27/24 12:30 Blood Pressure 150/58 H 07/27/24 12:30 Pulse Oximetry 96 07/27/24 12:30 Oxygen Delivery Method Nasal Cannula 07/27/24 12:30 Oxygen Delivery Flow Rate 3 07/27/24 12:30 Temperature 97.9 F 07/27/24 12:30 Pulse Rate 62 07/27/24 12:30 Respiratory Rate 18 07/27/24 12:30 Blood Pressure 150/58 H 07/27/24 12:30 Pulse Oximetry 94 L 07/27/24 12:54 Oxygen Delivery Method Nasal Cannula 07/27/24 12:54 Oxygen Delivery Flow Rate 3 07/27/24 12:54 Medical Decision Making MDM Narrative Medical decision making narrative: BUN is twice his baseline. My clinical impression is that he is dehydrated. He is starting to feel improved after some IV fluids and Zofran and he will be admitted for observation. Findings are discussed with the patient and his . Differential Diagnosis Differential Diagnosis: Dehydration, acute kidney injury, chemotherapy side effect Lab Data Lab results reviewed: Yes I reviewed the patient's lab results Labs: Lab Results 07/27/24 07/27/24 Range/Units 12:40 12:45 WBC 5.7 (4.0-11.0) 10^3/uL RBC 2.91 L (4.70-6.10) 10^6/uL Hgb 9.0 L (14.0-18.0) g/dL Hct 28.8 L (42.0-54.0) % MCV 99.0 H (80.0-94.0) fL MCH 30.9 (25.9-34.0) pg MCHC 31.3 (29.9-35.2) g/dL RDW 19.2 H (11.0-15.0) % Plt Count 136 L (150-450) 10^3/uL MPV 12.6 (9.5-13.5) fL Sodium 145 (136-145) mmol/L Potassium 4.7 (3.5-5.1) mmol/L Chloride 103 (98-107) mmol/L Carbon Dioxide 37.8 H (21.0-32.0) mmol/L Anion Gap 8.9 BUN 46.0 H (7.0-18.0) mg/dL Creatinine 1.03 (0.70-1.30) mg/dL Est GFR ( Amer) >60 (>=60 mL/min/1.73m^2) Est GFR (Non-Af Amer) >60 (>=60 mL/min/1.73m^2) BUN/Creatinine Ratio 44.7 Glucose 146 H (74-106) mg/dL Calcium 9.2 (8.5-10.1) mg/dL Urine Color Lt. yellow (YELLOW) Urine Clarity Clear (CLEAR) Urine pH 6.0 (5.0-9.0) Ur Specific [place] 1.015 (1.005-1.025) Urine Protein Trace (NEG/TRACE) mg/dL Urine Glucose (UA) >=1000 A (NEGATIVE) mg/dL Urine Ketones Negative (NEGATIVE) mg/dL Urine Occult Blood Negative (NEGATIVE) Urine Nitrite Negative (NEGATIVE) Urine Bilirubin Negative (NEGATIVE) Urine Urobilinogen 1.0 (0.2-1.0) EU/dL Ur Leukocyte Esterase Negative (NEGATIVE) Urine RBC 0-2 (0-2) #/HPF Urine WBC 0-2 A (NONE SEEN) #/HPF Ur Squamous Epith Cells Rare (NONE/RARE) #/LPF Urine Crystals None seen (None Seen) #/HPF Urine Bacteria Trace A (NONE SEEN) #/HPF Urine Casts None seen (NONE SEEN) #/LPF Urine Mucus None seen (NONE SEEN) Discharge Plan Discharge Chief Complaint: Weakness Clinical Impression: Nausea & vomiting, Dehydration Patient Disposition: Admitted as Observation Time of Disposition Decision: 13:35 Condition: Fair
[2024-07-27] MEDS: 0.9 % SODIUM CHLORIDE 500 ML IV (12:52)
[2024-07-27] MEDS: ONDANSETRON PF 4 MG/2 ML VIAL IV (12:53)
[2024-07-27 13:07] LABS: Bilirubin Urine NEGATIVE (NEGATIVE); Blood Urine NEGATIVE (NEGATIVE); Clarity Urine CLEAR (CLEAR); Color Urine LT. YELLOW (YELLOW); Glucose Urine UA >=1000 mg/dL (NEGATIVE); Ketones Urine NEGATIVE (NEGATIVE); Leukocyte Esterase Urine NEGATIVE (NEGATIVE); Nitrite Urine NEGATIVE (NEGATIVE); Protein Urine TRACE mg/dL (NEG/TRACE); Specific Gravity Urine 1.015 (1.005-1.025)
[2024-07-27 13:11] LABS: Hematocrit 28.8 % (42.0-54.0); Mean Corpuscular HGB Conc 31.3 g/dL (29.9-35.2); Mean Corpuscular Hemoglobin 30.9 pg (25.9-34.0); Mean Platelet Volume 12.6 fL (9.5-13.5); Platelet Count 136 10^3/uL (150-450); Red Blood Count 2.91 10^6/uL (4.70-6.10); Red Cell Distribution Width 19.2 % (11.0-15.0); White Blood Count 5.7 10^3/uL (4.0-11.0)
[2024-07-27 13:17] LABS: Anion Gap 8.9; BUN Creatinine Ratio 44.7; Calcium 9.2 mg/dL (8.5-10.1); Carbon Dioxide 37.8 mmol/L (21.0-32.0); Chloride 103 mmol/L (98-107); Estimated GFR (African America >60 (>=60 mL/min/1.73m^2); Estimated GFR (Non-African Ame >60 (>=60 mL/min/1.73m^2); Glucose 146 mg/dL (74-106); Potassium 4.7 mmol/L (3.5-5.1); Sodium 145 mmol/L (136-145)
[2024-07-27 13:23] LABS: Bacteria Urine TRACE #/HPF (NONE SEEN); Mucus Urine NONE SEEN (NONE SEEN)
[2024-07-27 13:24] LABS: Cast Seen? NONE SEEN #/LPF (NONE SEEN); Crystals Seen? None Seen #/HPF (None Seen); RBC Urine 0-2 #/HPF (0-2); Squamous Epithelial Cell Urine RARE #/LPF (NONE/RARE); WBC Urine 0-2 #/HPF (NONE SEEN)
[2024-07-27 13:45] LABS: Band Neutrophils Absolute 0.2 10^3/uL (0.0-0.3); Lymphocytes Absolute Manual 0.57 10^3/uL (1.20-3.80); Monocytes Absolute Manual 0.28 10^3/uL (0.30-0.80); Segmented Neut Absolute Manual 4.38 10^3/uL (1.4-6.5)
[2024-07-27 13:46] LABS: Basophils Abs Manual 0.05 10^3/uL (0.00-0.10); Eosinophils Absolute Manual 0.11 10^3/uL (0.00-0.70); Metamyelocytes Absolute Manual 0.11
[2024-07-27 13:47] LABS: Anisocytosis 2+
[2024-07-27 13:48] LABS: Macrocytosis 2+
[2024-07-27 13:49] LABS: Giant Platelets 1+; Stomatocytes 1+; Toxic Vacuolation 1+
--- NOTE | 2024-07-27 17:33 | P.HP_ITS ---
HPI H&P: HPI History of Present Illness Chief complaint: weakness, NAUSEA, VOMITING, DEHYDRATION Narrative: Patient seen and evaluated in the emergency room secondary to increasing nausea vomiting, not really abdominal pain, just more the hyperemesis and getting increasing weakness. 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 When I saw patient up in the medical surgical floor, resting very uncomfortably in bed just based on his fatigue level increasing respiratory rate Opioid HPI Opioid Management Most Recent Pain and Opioid Data: Last Pain Scale 2 05/27/24, 12:53 Last Pain Intensity 2 05/27/24, 12:53 Last Pain Assessment Today, 15:50 Last ORT Total Score 0 Today, 14:09 Last ORT Risk Category Low Risk Today, 14:09 Review of Systems ROS Status of ROS 10 or more systems reviewed and unremark able except as noted in history and below [facility] Medical History (Updated 07/27/24 @ 13:35 by Remi Ren MD) Lung cancer ?C34.90 - Malignant neoplasm of unspecified part of unspecified bronchus or lung (ICD-10) Bacteremia ?R78.81 - Bacteremia (ICD-10) Glaucoma ?H40.9 - Unspecified glaucoma (ICD-10) Hypoxia ?R09.02 - Hypoxemia (ICD-10) Respiratory distress ?R06.03 - Acute respiratory distress (ICD-10) Congestive heart failure ?I50.9 - Heart failure, unspecified (ICD-10) CAD (coronary artery disease) ?I25.10 - Atherosclerotic heart disease of [place] coronary artery without angina pectoris (ICD-10) Pneumonia ?J18.9 - Pneumonia, unspecified organism (ICD-10) Acute on chronic systolic (congestive) heart failure ?I50.23 - Acute on chronic systolic (congestive) heart failure (ICD-10) Hypoxia ?R09.02 - Hypoxemia (ICD-10) COPD (chronic obstructive pulmonary disease) ?J44.9 - Chronic obstructive pulmonary disease, unspecified (ICD-10) Congestive heart failure ?I50.9 - Heart failure, unspecified (ICD-10) Hematuria ?R31.9 - Hematuria, unspecified (ICD-10) Atrial fibrillation ?I48.91 - Unspecified atrial fibrillation (ICD-10) CHF (congestive heart failure) ?I50.9 - Heart failure, unspecified (ICD-10) Diabetes mellitus ?E11.9 - Type 2 diabetes mellitus without complications (ICD-10) Hypertension ?I10 - Essential (primary) hypertension (ICD-10) Prostate cancer ?C61 - Malignant neoplasm of prostate (ICD-10) Surgical History Pacemaker ?Z95.0 - Presence of cardiac pacemaker (ICD-10) H/O hernia repair ?Z98.890 - Other specified postprocedural states (ICD-10) ?Z87.19 - Personal history of other diseases of the digestive system (ICD-10) H/O heart artery stent ?Z95.5 - Presence of coronary angioplasty implant and graft (ICD-10) Family History Father Family history of myocardial infarction Family history of CHF (congestive heart failure) Brother Family history of CHF (congestive heart failure) Family history of hypertension Sister Family history of cancer Social History (Updated 05/26/24 @ 18:26 by Cristiane Gutierrez RN) Within the past year, how often did you have a drink containing alcohol: never Within the past year, how often did you have six or more drinks on one occasion: never Score interpretation: A score less than 4 is consistent with normal alcohol consumption. Smoking status: Former smoker Second hand tobacco smoke exposure: No Non-prescribed substance use: denies use Previous occupational history: retired Known occupational exposures/hazards: No Highest level of school completed/degree received: high school graduate Do you want help with school or training: No Are you now , , , , never or living with a partner: In a typical week, how many times do you talk on the telephone with family, friends, or neighbors: 3 or more times per week How often do you get together with friends or relatives: 3 or more times per week How often do you attend episcopal or druze services: 4 or more times per year Do you belong to any clubs or organizations such as episcopal groups unions, fraternal or athletic groups, or school groups: no Total score: 3 Score interpretation: A score of greater than or equal to 2 indicates the lowest level of social isolation. Little interest or pleasure in doing things: more than half the days Feeling down, depressed, or hopeless: nearly every day Feel stressed/tense/nervous/anxious/difficulty sleeping: not at all Due to disability, difficulty making decisions: No Do you think of yourself as: straight/heterosexual Gender Identity: male Meds Home Medications and Allergies Home Medications ?Medication ?Instructions ?Recorded ?Confirmed ?Type metformin 500 mg tablet 500 mg PO .QD 09/23/2207/27 History pantoprazole 40 mg tablet,delayed 40 mg PO DAILY 09/2307/27/24 History release rivaroxaban 20 mg tablet (Xarelto) 20 mg PO DAILY 09/0307/27/24 History dorzolamide 22.3 mg-timolol 6.8 1 drp ophthalmic (eye) BID 01/10/24 07/27/24 History mg/mL eye drops empagliflozin 10 mg tablet 10 mg PO DAILY 01/10/24 History (Jardiance) latanoprost 0.005 % eye drops 1 drp ophthalmic (eye) Q PM 01/10/24 07/27/24 History multivitamin (Daily Multi-Vitamin 1 tab PO DAILY 01/0907/27/24 History tablet) omega 8-jsp-cet-fish oil 300 1 cap PO DAILY 01/10/24 0 07/27/24 History mg-1,000 mg capsule (Fish Oil) amlodipine 10 mg tablet 10 mg PO DAILY #30 tabs 02/05/2707/27/24 Rx digoxin 250 mcg (0.25 mg) tablet 250 mcg PO DAILY #30 tabs 05/17/24 07/27/24 Rx metoprolol tartrate 50 mg tablet 50 mg PO BID #60 tabs 05/17/24 07/27/24 Rx furosemide 40 mg tablet (Lasix) 40 mg PO Q12H 05/26/24 07/27/24 History glimepiride 2 mg tablet 1 mg PO DAILY 07/27/2407/27 History irbesartan 150 mg tablet 150 mg PO .QD 07/27/2407/27 History metoclopramide HCl 5 mg tablet 5 mg PO ACHS 07/27/24 0 07/27/24 History potassium chloride 10 mEq 10 meq PO BID 07/27/2407/27 History tablet,extended release (Klor-Con) prochlorperazine maleate 10 mg 10 mg PO Q8H PRN nausea and 07/27/24 07/27/24 History tablet vomiting spironolactone 50 mg tablet 50 mg PO QAM 07/27/24/07/27 History Allergies Allergy/AdvReac Type Severity Reaction Status Date / Time No Known Drug Allergies Allergy Verified 07/27/24 12:29 Exam Constitutional Vital Signs, click to edit/add: Last Vital Signs Temp 98.1 F 07/27/24 15:50 Pulse 41 L 07/27/24 15:50 Resp 16 07/27/24 15:50 BP 180/61 H 07/27/24 15:50 Pulse Ox 95 07/27/24 16:10 O2 Del Method Nasal Cannula 07/27/24 16:10 O2 Flow Rate 5 07/27/24 16:10 Documenting provider has reviewed patient's vital signs: yes Common normals: apparent distress (Mild respiratory distress somewhat elevated above his baseline) Chest Common normals: inspection of chest normal Respiratory Common normals: clear to auscultation bilaterally; abnormal respiratory effort (Mild increase in respiratory distress above his baseline) Auscultation: no rales, no rhonchi and no wheezes Cardio Common normals: regular rate and no murmurs; irregular rhythm Rhythm: abnormal rhythm GI Common normals: Normal to inspection, nondistended, normoactive bowel sounds present and soft to palpation Extremity Common normals: abnormal to inspection (3+ edema) Results Labs Labs: Short CBC 07/27/24 Range/Units 12:40 WBC 5.7 (4.0-11.0) 10^3/uL Hgb 9.0 L (14.0-18.0) g/dL Hct 28.8 L (42.0-54.0) % Plt Count 136 L (150-450) 10^3/uL BMP 07/27/24 12:40 Sodium 145 Potassium 4.7 Chloride 103 Carbon Dioxide 37.8 H BUN 46.0 H Creatinine 1.03 Glucose 146 H Calcium 9.2 Urine 07/27/24 Range/Units 12:45 Urine Color Lt. yellow (YELLOW) Urine Clarity Clear (CLEAR) Urine pH 6.0 (5.0-9.0) Ur Specific [place] 1.015 (1.005-1.025) Urine Protein Trace (NEG/TRACE) mg/dL Urine Glucose (UA) >=1000 A (NEGATIVE) mg/dL Assessment and Plan Assessment and Plan (1) Dehydration: (2) Nausea & vomiting: (3) Lung cancer: (4) Respiratory distress: (5) Congestive heart failure: (6) CAD (coronary artery disease): Qualifiers: Associated angina: without angina Coronary Disease-Associated Artery/Lesion type: [place] artery [place] vs. transplanted heart: [place] heart Qualified Code(s): I25.10 - Atherosclerotic heart disease of [place] coronary artery without angina pectoris (7) Hypoxia: (8) COPD (chronic obstructive pulmonary disease): (9) Atrial fibrillation: Qualifiers: Atrial fibrillation type: permanent Qualified Code(s): I48.21 - Permanent atrial fibrillation (10) CHF (congestive heart failure): (11) Diabetes mellitus: (12) Hypertension: Qualifiers: Hypertension type: primary hypertension Qualified Code(s): I10 - Essential (primary) hypertension Plan Admission findings: Borderline bradycardia, uncontrolled hypertension, acute hypoxic with O2 sats 82% on his 3 L bumped up to 5 L and O2 sats are in the low 90s secondary to acute hyperemesis possible aspiration pneumonia, follow-up labs are pending Acute hypoxia related to acute hyperemesis-possible aspiration pneumonia with concomitant immunodeficiency so not likely to monitor white blood cell count response, secondary to chemotherapy for lung cancer-will start patient on IV antibiotics and aerosol treatments try to obtain sputum culture Acute hyperemesis with dehydration with his BUN/creatinine ratio of over 40, this may be related to his chemotherapy which started last week -checking amylase lipase, liver profile and ab series, GERD-start patient on IV Reglan and IV Protonix Chronic combined congestive heart failure-his lung exam is clear chest x-ray clear could be more diastolic dysfunction as he has significant peripheral edema but his peripheral edema may be more related to his severe protein calorie malnu trition, BNP pending Severe protein calorie malnutrition-diet supplement Lung cancer with currently going through chemotherapy so immune deficiency Thrombocytopenia-monitor daily Iron deficiency anemia-monitor daily Diabetes mellitus-insulin sliding scale Coronary artery disease-check cardiac markers Hypertension-maintain current medications with changes metoprolol to Coreg due to bradycardia Atrial fibrillation-maintain anticoagulation Admission status: Patient will be placed in observation status, at least part of what is going on as outlined above may resolve by within 24 hours thus being 1 midnight, if medically necessary treatment spans 2 midnights which there is a 50-50 chance of that, will change patient to inpatient status in a.m. tomorrow
[2024-07-27 18:04] LABS: PCO2 VBG 51.5 mmHg (40.0-52.0); pH VBG 7.456 (7.330-7.430)
[2024-07-27] MEDS: LOSARTAN POTASSIUM 50 MG TABLET PO (18:10)
[2024-07-27] MEDS: LACTATED RINGER'S SOLUTION 1,000 ML 50 ML IV (18:10)
[2024-07-27 18:14] LABS: Influenza Virus A Antigen Negative; Influenza Virus B Antigen Negative; Internal Control Within Normal Limits; Respiratory Syncytial Virus Not Detected (NOT DETECTE); SARS-CoV-2 Ag NEGATIVE (NEGATIVE)
[2024-07-27 18:24] LABS: Alanine Aminotransferase 28 U/L (16-63); Albumin Globulin Ratio 0.8; Albumin Level 2.4 g/dL (3.4-5.0); Alkaline Phosphatase 103 U/L (46-116); Aspartate Amino Transferase 41 U/L (15-37); Bilirubin Direct 0.5 mg/dL (0.0-0.2); Bilirubin Total 1.3 mg/dL (0.2-1.0); Total Protein 5.4 g/dL (6.4-8.2)
[2024-07-27 18:26] LABS: Amylase 78 U/L (25-115)
[2024-07-27 18:32] LABS: Troponin I High Sensitivity 98.2 pg/mL (4.0-76.1)
[2024-07-27 18:33] LABS: Digoxin 3.4 ng/mL (0.9-2.0)
[2024-07-27] MEDS: PIPERACILLIN SODIUM/TAZOBACTAM 3.375 GM in 0.9 % SODIUM CHLORIDE 50 ML IV (21:12)
[2024-07-27] MEDS: LATANOPROST 0.005% 2.5 ML BOTTLE 1 DROP OP (22:19)
[2024-07-27 22:20] LABS: Glucometer 135 mg/dL (74-106)
[2024-07-27] MEDS: PANTOPRAZOLE SODIUM 40 MG VIAL IV (22:20)
[2024-07-27] MEDS: METOCLOPRAMIDE HCL 10 MG/2 ML VIAL IVP (22:20)
[2024-07-27] MEDS: POTASSIUM CHLORIDE 10 MEQ ER TABLET PO (22:20)
[2024-07-27] MEDS: CARVEDILOL 12.5 MG TABLET PO (22:20)
[2024-07-27] MEDS: IPRATROPIUM/ALBUTEROL SULFATE 3 ML AMPUL.NEB IH (22:59)
[2024-07-28] VITALS (23 sets, daily range): BP systolic 123–161; BP diastolic 61–71; PULSE 55–77; TEMP 36.1–37; O2SAT 83–92
[2024-07-28] MEDS: METOCLOPRAMIDE HCL 10 MG/2 ML VIAL IVP ×4 (02:43→20:51)
[2024-07-28] MEDS: PIPERACILLIN SODIUM/TAZOBACTAM 3.375 GM in 0.9 % SODIUM CHLORIDE 50 ML IV ×3 (04:13→20:51)
[2024-07-28] MEDS: IPRATROPIUM/ALBUTEROL SULFATE 3 ML AMPUL.NEB IH ×4 (05:31→22:33)
[2024-07-28 06:20] LABS: Hematocrit 25.6 % (42.0-54.0); Mean Corpuscular HGB Conc 31.3 g/dL (29.9-35.2); Mean Corpuscular Hemoglobin 31.3 pg (25.9-34.0); Mean Platelet Volume 13.1 fL (9.5-13.5); Platelet Count 85 10^3/uL (150-450); Red Blood Count 2.56 10^6/uL (4.70-6.10); Red Cell Distribution Width 18.9 % (11.0-15.0)
[2024-07-28 06:47] LABS: Alanine Aminotransferase 27 U/L (16-63); Albumin Globulin Ratio 0.9; Albumin Level 2.6 g/dL (3.4-5.0); Alkaline Phosphatase 88 U/L (46-116); Anion Gap 9.7; Aspartate Amino Transferase 33 U/L (15-37); BUN Creatinine Ratio 41.7; Bilirubin Total 1.5 mg/dL (0.2-1.0); Calcium 8.9 mg/dL (8.5-10.1); Carbon Dioxide 35.8 mmol/L (21.0-32.0); Chloride 107 mmol/L (98-107); Estimated GFR (African America >60 (>=60 mL/min/1.73m^2); Estimated GFR (Non-African Ame >60 (>=60 mL/min/1.73m^2); Globulin 2.8 g/dL; Glucose 105 mg/dL (74-106); Potassium 4.5 mmol/L (3.5-5.1); Sodium 148 mmol/L (136-145); Total Protein 5.4 g/dL (6.4-8.2)
[2024-07-28 06:51] LABS: Digoxin 2.7 ng/mL (0.9-2.0); Troponin I High Sensitivity 94.8 pg/mL (4.0-76.1)
[2024-07-28 06:53] LABS: Eosinophils Absolute Manual 0.02 10^3/uL (0.00-0.70); Lymphocytes Absolute Manual 0.28 10^3/uL (1.20-3.80); Monocytes Absolute Manual 0.16 10^3/uL (0.30-0.80); Segmented Neut Absolute Manual 0.54 10^3/uL (1.4-6.5)
[2024-07-28 06:54] LABS: Anisocytosis 1+; Macrocytosis 1+; Ovalocytes 1+; Poikilocytosis 1+
--- NOTE | 2024-07-28 07:50 | P.PN_ITS ---
Progress Note: Subjective Subjective Interval history: Feels better this morning, no more nausea vomiting, does have cough productive of sputum Exam Constitutional Vital Signs, click to edit/add: Last Vital Signs Temp 97.6 F 07/28/24 04:29 Pulse 66 07/28/24 05:50 Resp 18 07/28/24 05:34 BP 127/66 07/28/24 04:29 Pulse Ox 92 L 07/28/24 05:34 O2 Del Method Nasal Cannula 07/28/24 05:34 O2 Flow Rate 5 07/28/24 05:34 Documenting provider has reviewed patient's vital signs: yes Common normals: apparent distress (No respiratory distress still seems fatigued) Chest Common normals: inspection of chest normal Respiratory Common normals: normal respiratory effort (No respiratory distress still seems fatigued) and clear to auscultation bilaterally Auscultation: rhonchi (Few scattered rhonchi this morning); no rales and no wheezes Cardio Common normals: regular rate and no murmurs; irregular rhythm Rhythm: abnormal rhythm GI Common normals: Normal to inspection, nondistended, normoactive bowel sounds present and soft to palpation Extremity Common normals: abnormal to inspection (3+ edema-unchanged) Progress Note: Objective Labs Labs: Short CBC 07/27/24 07/28/24 Range/Units 12:40 06:07 WBC 5.7 1.0 L* (4.0-11.0) 10^3/uL Hgb 9.0 L 8.0 L (14.0-18.0) g/dL Hct 28.8 L 25.6 L (42.0-54.0) % Plt Count 136 L 85 L (150-450) 10^3/uL BMP 07/27/24 07/28/24 12:40 06:07 Sodium 145 148 H Potassium 4.7 4.5 Chloride 103 107 Carbon Dioxide 37.8 H 35.8 H BUN 46.0 H 45.0 H Creatinine 1.03 1.08 Glucose 146 H 105 Calcium 9.2 8.9 Liver Function 07/27/24 07/28/24 Range/Units 17:49 06:07 Total Bilirubin 1.3 H 1.5 H (0.2-1.0) mg/dL Direct Bilirubin 0.5 H (0.0-0.2) mg/dL AST 41 H 33 (15-37) U/L ALT 28 27 (16-63) U/L Alkaline Phosphatase 103 88 (46-116) U/L Albumin 2.4 L 2.6 L (3.4-5.0) g/dL Urine 05/25/25 Range/Units 12:45 Urine Color Lt. yellow (YELLOW) Urine Clarity Clear (CLEAR) Urine pH 6.0 (5.0-9.0) Ur Specific [place] 1.015 (1.005-1.025) Urine Protein Trace (NEG/TRACE) mg/dL Urine Glucose (UA) >=1000 A (NEGATIVE) mg/dL Progress Note: A&P Assessment and Plan (1) Dehydration: (2) Nausea & vomiting: (3) Lung cancer: (4) Respiratory distress: (5) Congestive heart failure: (6) CAD (coronary artery disease): Qualifiers: Associated angina: without angina Coronary Disease-Associated Artery/Lesion type: [place] artery [place] vs. transplanted heart: [place] heart Qualified Code(s): I25.10 - Atherosclerotic heart disease of [place] coronary artery without angina pectoris (7) Hypoxia: (8) COPD (chronic obstructive pulmonary disease): (9) Atrial fibrillation: Qualifiers: Atrial fibrillation type: permanent Qualified Code(s): I48.21 - Permanent atrial fibrillation (10) Diabetes mellitus: (11) Hypertension: Qualifiers: Hypertension type: primary hypertension Qualified Code(s): I10 - Essential (primary) hypertension Plan Admission findings: Borderline bradycardia, uncontrolled hypertension, acute hypoxic with O2 sats 82% on his 3 L bumped up to 5 L and O2 sats are in the low 90s secondary to acute hyperemesis possible aspiration pneumonia, follow-up labs are pending Acute hypoxia related to acute hyperemesis-possible aspiration pneumonia with concomitant immunodeficiency-maintain current antibiotics, ANC down to 0.54 Acute NSTEMI type II secondary to the above possible aspiration pneumonia now with neutropenia-check echo, troponins slightly improved maintain current anticoagulation Neutropenia-ANC down to 0.54 will discuss with oncology Digoxin toxicity-improved today, continue to monitor Acute hyperemesis with dehydration with his BUN/creatinine ratio of over 40,- likely related to his dig toxicity GERD-start patient on IV Reglan and IV Protonix Hypernatremia-diuresis today, repeat in [place] Elevated liver function test somewhat improved today hyperbilirubinemia is elevated today, no abdominal pain today likely related to passive congestion from the above Chronic combined congestive heart failure-his lung exam is clear chest x-ray clear could be more diastolic dysfunction as he has significant peripheral edema but his peripheral edema may be more related to his severe protein calorie malnutrition, BNP pending Severe protein calorie malnutrition-diet supplement Lung cancer with currently going through chemotherapy so immune deficiency Thrombocytopenia-monitor daily Iron deficiency anemia-monitor daily Diabetes mellitus-insulin sliding scale Coronary artery disease-check cardiac markers Hypertension-maintain current medications with changes metoprolol to Coreg due to bradycardia Atrial fibrillation-maintain anticoagulation Admission status: Patient will be placed in observation status, initially placed in observation, patient with acute NSTEMI secondary to likely aspiration pneumonia secondary to hyperemesis secondary to digoxin toxicity, medically necessary treatment will span 2 midnights. Inpatient status
[2024-07-28] MEDS: ENSURE HP 237 ML LIQUID PO ×2 (09:32→20:50)
[2024-07-28] MEDS: FUROSEMIDE 40 MG/4 ML VIAL IVP ×2 (09:33→20:50)
[2024-07-28] MEDS: PANTOPRAZOLE SODIUM 40 MG VIAL IV ×2 (09:33→20:51)
[2024-07-28] MEDS: GLIMEPIRIDE 2 MG TABLET 1 MG PO (09:34)
[2024-07-28] MEDS: SPIRONOLACTONE 25 MG TABLET 50 MG PO (09:34)
[2024-07-28] MEDS: METFORMIN HCL 500 MG TABLET PO (09:35)
[2024-07-28] MEDS: LOSARTAN POTASSIUM 50 MG TABLET PO (09:35)
[2024-07-28] MEDS: CARVEDILOL 12.5 MG TABLET PO ×2 (09:35→20:51)
[2024-07-28] MEDS: AMLODIPINE BESYLATE 5 MG TABLET 10 MG PO (09:35)
[2024-07-28] MEDS: MULTIVITAMIN TABLET 1 TAB PO (09:35)
[2024-07-28] MEDS: POTASSIUM CHLORIDE 10 MEQ ER TABLET PO ×2 (09:36→20:51)
[2024-07-28] MEDS: CANAGLIFLOZIN 100 MG TABLET PO (09:36)
[2024-07-28] MEDS: DORZOLAMIDE HCL 2%/TIMOLOL MALEATE 0.5% 200 DROP/10 ML BOTTLE OP ×2 (09:46→20:52)
[2024-07-28 12:03] LABS: Glucometer 133 mg/dL (74-106)
[2024-07-28 12:03] LABS: Glucometer 210 mg/dL (74-106)
[2024-07-28] MEDS: POLYETHYLENE GLYCOL 3350 17 GM POWDER PACKET PO (12:42)
[2024-07-28] MEDS: FILGRASTIM-SNDZ 480 MCG/0.8 ML SYRINGE SUBQ (13:49)
[2024-07-28] MEDS: HYOSCYAMINE SULFATE 0.125 MG TAB.SUBL SL (13:49)
[2024-07-28] MEDS: BENZONATATE 100 MG CAPSULE 200 MG PO (13:52)
[2024-07-28 15:37] LABS: Glucometer 254 mg/dL (74-106)
[2024-07-28] MEDS: INSULIN ASPART 300 UNIT/3 ML PEN SUBQ (16:07)
[2024-07-28] MEDS: RIVAROXABAN 10 MG TABLET 20 MG PO (16:11)
[2024-07-28] MEDS: SENNOSIDES 8.6 MG TABLET 17.2 MG PO (18:06)
[2024-07-28] MEDS: LATANOPROST 0.005% 2.5 ML BOTTLE 1 DROP OP (20:52)
[2024-07-28 21:05] LABS: Glucometer 126 mg/dL (74-106)
[2024-07-29] VITALS (23 sets, daily range): BP systolic 95–155; BP diastolic 54–69; PULSE 58–78; TEMP 35.9–37.2; O2SAT 90–99
[2024-07-29] MEDS: METOCLOPRAMIDE HCL 10 MG/2 ML VIAL IVP ×4 (01:04→20:45)
[2024-07-29] MEDS: IPRATROPIUM/ALBUTEROL SULFATE 3 ML AMPUL.NEB IH ×3 (04:08→23:22)
[2024-07-29] MEDS: PIPERACILLIN SODIUM/TAZOBACTAM 3.375 GM in 0.9 % SODIUM CHLORIDE 50 ML IV ×3 (04:39→20:54)
[2024-07-29 05:16] LABS: Hemoglobin 7.2 g/dL (14.0-18.0); Mean Corpuscular HGB Conc 31.2 g/dL (29.9-35.2); Mean Corpuscular Hemoglobin 30.9 pg (25.9-34.0); Mean Corpuscular Volume 99.1 fL (80.0-94.0); Mean Platelet Volume 13.2 fL (9.5-13.5); Platelet Count 38 10^3/uL (150-450); Red Cell Distribution Width 18.4 % (11.0-15.0)
[2024-07-29 05:46] LABS: Alanine Aminotransferase 21 U/L (16-63); Albumin Globulin Ratio 0.9; Albumin Level 2.4 g/dL (3.4-5.0); Alkaline Phosphatase 66 U/L (46-116); Anion Gap 11.1; Aspartate Amino Transferase 19 U/L (15-37); BUN Creatinine Ratio 34.3; Bilirubin Total 1.6 mg/dL (0.2-1.0); Calcium 8.7 mg/dL (8.5-10.1); Carbon Dioxide 34.3 mmol/L (21.0-32.0); Chloride 105 mmol/L (98-107); Estimated GFR (African America 57 (>=60 mL/min/1.73m^2); Estimated GFR (Non-African Ame 47 (>=60 mL/min/1.73m^2); Globulin 2.7 g/dL; Glucose 143 mg/dL (74-106); Potassium 4.4 mmol/L (3.5-5.1); Sodium 146 mmol/L (136-145); Total Protein 5.1 g/dL (6.4-8.2); Troponin I High Sensitivity 74.5 pg/mL (4.0-76.1)
[2024-07-29 06:14] LABS: Hematocrit 23.1 % (42.0-54.0); White Blood Count 0.3 10^3/uL (4.0-11.0)
[2024-07-29 06:17] LABS: Lymphocytes Absolute Manual 0.17 10^3/uL (1.20-3.80); Monocytes Absolute Manual 0.04 10^3/uL (0.30-0.80); Red Blood Count 2.33 10^6/uL (4.70-6.10); Segmented Neut Absolute Manual 0.06 10^3/uL (1.4-6.5)
[2024-07-29 06:22] LABS: Digoxin 2.2 ng/mL (0.9-2.0)
--- NOTE | 2024-07-29 06:38 | CA_ITS ---
Patient Name: KHADAR RAMOS MR#: [id number] : 1940 Exam Date: 07/29/2024 Ordering Doctor: DR JOSY DELACRUZ . ECHOCARDIOGRAM REPORT PROCEDURE: CA ECHO LIMITED INDICATIONS: NSTEMI, elevated BNP and TROP, CHF, COPD, pacemaker, lung cancer - chemo, hypertension, diabetes COMPARISON: None. DESCRIPTION: Limited ECHOCARDIOGRAM Real-time transthoracic echocardiography with 2D and M-mode performed. QUALITY: Technical quality was good. Limited echocardiogram per physician order. LEFT VENTRICLE: Normal chamber size. Moderate concentric left ventricular hypertrophy. Normal systolic function. LV EF: Normal left ventricular ejection fraction, (55%). DIASTOLIC: ATRIAL SEPTUM: LEFT ATRIUM: Severe dilatation. RIGHT ATRIUM: Severe dilatation. RIGHT VENTRICLE: Moderate dilatation. Normal systolic function. Pacer wire present. TRICUSPID VALVE: Normal mobility and thickness. MITRAL VALVE: Normal mobility and thickness. There is no mitral annular calcification. AORTIC VALVE: Normal trileaflet appearance. Normal leaflet mobility. The valve opens well. AORTIC ROOT: Normal diameter and appearance. PULMONIC VALVE: Normal thickness and mobility. PERICARDIUM: No evidence of pericardial effusion. IVC: IVC is dilated (2.2 cm), does not collapse. PLEURA: CONCLUSION: 1. Moderate concentric left ventricular hypertrophy with normal systolic function. LVEF is estimated at 55%. 2. Moderately dilated right ventricle with normal systolic function. 3. Severe biatrial dilatation. 4. Dilated IVC with no collapse indicative of elevated right-sided filling pressures. 5. Limited study performed with no Doppler interrogation as requested. Adult Echocardiography Procedure Report Left Ventricle LVEDD (3.7 - 5.6 cm): 4.15 cm LVESD (2.2 - 4.0 cm): 2.55 cm LVIVS thickness (0.6 - 1.2 cm): 1.63 cm LVPW thickness (0.5 - 1.0 cm): 1.34 cm LVOT Diameter 2.44 cm Left Atrium LA Volume Index (2D A2C): 58.78 ml/m2 Left Atrium Systolic Dimension: 4.84 cm Mitral Valve Right Ventricle Aorta AO Root Diam: 3.40 cm Aortic Valve Tricuspid Valve Pulmonic Valve Right Atrium Right Atrium Systolic Pressure: 95.49 ml, 95.49 ml Dictated by: Emiliano Núñez M.D. on 07/29/2024 at 13:16 Approved by: Emiliano Núñez M.D. on 07/29/2024 at 13:19
--- NOTE | 2024-07-29 07:32 | P.PN_ITS ---
Progress Note: Subjective Subjective Interval history: Says he is better this morning but does not really appear to be so Exam Constitutional Vital Signs, click to edit/add: Last Vital Signs Temp 98.9 F 07/29/24 04:48 Pulse 68 07/29/24 06:00 Resp 20 07/29/24 04:48 BP 111/69 07/29/24 04:48 Pulse Ox 90 L 07/29/24 04:48 O2 Del Method Nasal Cannula 07/29/24 04:48 O2 Flow Rate 4 07/29/24 04:48 Documenting provider has reviewed patient's vital signs: yes Common normals: apparent distress (No respiratory distress still seems fatigued) Chest Common normals: inspection of chest normal Respiratory Common normals: normal respiratory effort (No respiratory distress still seems fatigued) and clear to auscultation bilaterally Auscultation: rhonchi (Few scattered rhonchi this morning); no rales and no wheezes Cardio Common normals: regular rate and no murmurs; irregular rhythm Rhythm: abnormal rhythm GI Common normals: Normal to inspection, nondistended, normoactive bowel sounds present, soft to palpation, no hepatosplenomegaly and no masses Extremity Common normals: abnormal to inspection (1-2+ edema-improved) Progress Note: Objective Labs Labs: Short CBC 07/29/24 Range/Units 04:44 WBC 0.3 L* (4.0-11.0) 10^3/uL Hgb 7.2 L (14.0-18.0) g/dL Hct 23.1 L* (42.0-54.0) % Plt Count 38 L (150-450) 10^3/uL BMP 07/29/24 04:44 Sodium 146 H Potassium 4.4 Chloride 105 Carbon Dioxide 34.3 H BUN 49.0 H Creatinine 1.43 H Glucose 143 H Calcium 8.7 Liver Function 07/29/24 Range/Units 04:44 Total Bilirubin 1.6 H (0.2-1.0) mg/dL AST 19 (15-37) U/L ALT 21 (16-63) U/L Alkaline Phosphatase 66 (46-116) U/L Albumin 2.4 L (3.4-5.0) g/dL Progress Note: A&P Assessment and Plan (1) Dehydration: (2) Nausea & vomiting: (3) Lung cancer: (4) Respiratory distress: (5) Congestive heart failure: (6) CAD (coronary artery disease): Qualifiers: Associated angina: without angina Coronary Disease-Associated Artery/Lesion type: [place] artery [place] vs. transplanted heart: [place] heart Qualified Code(s): I25.10 - Atherosclerotic heart disease of [place] coronary artery without angina pectoris (7) Hypoxia: (8) COPD (chronic obstructive pulmonary disease): (9) Atrial fibrillation: Qualifiers: Atrial fibrillation type: permanent Qualified Code(s): I48.21 - Permanent atrial fibrillation (10) Diabetes mellitus: (11) Hypertension: Qualifiers: Hypertension type: primary hypertension Qualified Code(s): I10 - Essential (primary) hypertension Plan Admission findings: Borderline bradycardia, uncontrolled hypertension, acute hypoxic with O2 sats 82% on his 3 L bumped up to 5 L and O2 sats are in the low 90s secondary to acute hyperemesis possible aspiration pneumonia, follow-up labs are pending Acute hypoxia related to acute hyperemesis-maintain current antibiotics, ANC is decreased again discussing with oncology Acute NSTEMI type II secondary to the above possible aspiration pneumonia now with neutropenia-check echo, troponins slightly improved maintain current anticoagulation-consult to cardiology Neutropenia-down further today, check with oncology Digoxin toxicity-improved today, continue to monitor Acute hyperemesis with dehydration with his BUN/creatinine ratio of over 40 ,--improving GERD-start patient on IV Reglan and IV Protonix Hypernatremia-diuresis today, repeat in a.m. Elevated liver function test elevation-continue to follow Chronic combined congestive heart failure-edema is improved, continue to follow BNP Severe protein calorie malnutrition-diet supplement Lung cancer with currently going through chemotherapy so immune deficiency Thrombocytopenia-monitor daily Iron deficiency anemia-monitor daily Diabetes mellitus-insulin sliding scale Coronary artery disease-check cardiac markers Hypertension-maintain current medications with changes metoprolol to Coreg due to bradycardia Atrial fibrillation-maintain anticoagulation Admission status: Patient will be placed in observation status, initially placed in observation, patient with acute NSTEMI secondary to likely aspiration pneumonia secondary to hyperemesis secondary to digoxin toxicity, medically necessary treatment will span 2 midnights. Inpatient status
--- NOTE | 2024-07-29 07:35 | CT_ITS ---
The [address] [address] Patient Name: KHADAR RAMOS MRN: [id number] date: 1940 Sex: M Assigned Patient Location: Current Patient Location: Accession/Order Number: [id number] Exam Date: 07/29/2024 11:32 Report Date: 07/29/2024 11:49 At the request of: JOSY DELACRUZ MD Procedure: CT chest wo con CT CHEST WITHOUT CONTRAST COMPARISON: 04/09/2024 and PET/CT 04/30/2024 CLINICAL DATA: Hypoxia. Patient currently undergoing treatment for lung cancer. Spiral images were obtained through the chest without contrast. Images were reviewed using both narrow and wide window settings. This CT exam was performed using one or more following dose reduction techniques: Automated exposure control, adjustment of the mA and/or kV according to patient size, or use of iterative reconstruction technique. Patient has a left-sided pacemaker. The heart is borderline prominent. No pericardial effusion is noted. Coronary disease is seen. The ascending aorta is slightly ectatic. There is prominent atherosclerotic plaque at the aorta and imaged great vessels. There is no pathologic adenopathy within limits of unenhanced technique. There is mild bilateral gynecomastia. There is a hiatal hernia as well as a distended thoracic esophagus containing air and food debris. There is mild endplate spurring at the spine. There is obstructive lung disease with airspace lucencies and subpleural blebs. There is scarring is visualized at the lung apices. Additional minimal scarring or atelectasis is seen. There is redemonstration of a spiculated mass at the left lung apex measuring approximately 3 cm in size. This may be minimally smaller. There is stranding within the adjacent upper lobe as well as small left upper lobe satellite nodules, some of which are slightly smaller. Additional small pulmonary nodules are noted. There are developing irregular opacities at the right lower lobe. There are small layering pleural effusions which have increased in size. No pneumothorax is seen. Limited cuts through the upper abdomen show adrenal limb thickening and a hypodense nodule on the left. There is a partially imaged cystic area posterior to the distal stomach which on the prior appeared to be associated with the pancreas. This has enlarged and now measures just over 4 cm versus 3.2 cm on the prior. There is upper pole renal nodularity, hypodense on the right and hyperdense on the left, possibly simple and hemorrhagic cysts. CT/CT chest wo con IMPRESSION: BORDERLINE CARDIOMEGALY. HERNIA AND DISTENDED THORACIC ESOPHAGUS CONTAINING FOOD DEBRIS. OBSTRUCTIVE LUNG DISEASE. SLIGHT INTERVAL IMPROVEMENT OF LEFT UPPER LOBE MASS AND SATELLITE NODULARITY. SMALL, ENLARGING PLEURAL EFFUSIONS. DEVELOPING PATCHY IRREGULAR RIGHT LOWER LOBE OPACITIES. THIS MIGHT BE INFECTIOUS OR INFLAMMATORY. CORRELATION AND FOLLOW-UP WILL BE NEEDED. ENLARGING PANCREATIC CYST AND SUSPECTED SIMPLE AND HEMORRHAGIC RENAL CYSTS. Impression dictated by: Yasemin Shirley M.D. 07/29/2024 11:49 AM Dictation Location: [place] [address] Electronically authenticated by: [id number] Y Date: 07/29/2024 11:49
[2024-07-29] MEDS: FUROSEMIDE 40 MG/4 ML VIAL IVP ×2 (09:24→20:48)
[2024-07-29] MEDS: AMLODIPINE BESYLATE 5 MG TABLET 10 MG PO (09:24)
[2024-07-29] MEDS: FISH OIL 1,000 MG CAPSULE 1000 MG PO (09:24)
[2024-07-29] MEDS: PANTOPRAZOLE SODIUM 40 MG VIAL IV ×2 (09:24→20:45)
[2024-07-29] MEDS: POTASSIUM CHLORIDE 10 MEQ ER TABLET PO ×2 (09:24→20:54)
[2024-07-29] MEDS: MULTIVITAMIN TABLET 1 TAB PO (09:25)
[2024-07-29] MEDS: SENNOSIDES 8.6 MG TABLET 17.2 MG PO (09:25)
[2024-07-29] MEDS: SPIRONOLACTONE 25 MG TABLET 50 MG PO (09:25)
[2024-07-29] MEDS: CANAGLIFLOZIN 100 MG TABLET PO (09:25)
[2024-07-29] MEDS: GLIMEPIRIDE 2 MG TABLET 1 MG PO (09:25)
[2024-07-29] MEDS: METFORMIN HCL 500 MG TABLET PO (09:26)
[2024-07-29] MEDS: LOSARTAN POTASSIUM 50 MG TABLET PO (09:26)
[2024-07-29] MEDS: LACTULOSE 10 GM/15 ML UD CUP 30 GM PO ×2 (09:26→17:04)
[2024-07-29] MEDS: CARVEDILOL 12.5 MG TABLET PO ×2 (09:26→20:55)
[2024-07-29] MEDS: POLYETHYLENE GLYCOL 3350 17 GM POWDER PACKET PO (09:26)
[2024-07-29] MEDS: DORZOLAMIDE HCL 2%/TIMOLOL MALEATE 0.5% 200 DROP/10 ML BOTTLE OP ×2 (09:27→20:55)
--- NOTE | 2024-07-29 11:35 | PC.NURSE ---
1109- Pt transported to CT via wheelchair, portable O2 @ 3L/min via [place]. Transported by [employer].
--- NOTE | 2024-07-29 11:46 | SWNOTE1 ---
SW spoke with pt in room, pt was sleeping. SW spoke with about OT recommendation of SNF. Pt was at the [facility] for 3 weeks for IV antibiotics, and was getting therapy as well. Pt did have [facility] coming in, but they ended 1 week ago. Pt was only getting nursing from . Pt did not feel he would be agreeable to SNF. SW let know PT will be in soon, and SW will come back to discuss with pt. Pt does wear 3 liters of home oxygen from [facility]. Pt receives chemotherapy every 21 days. SW did recommend HH to come back in at the very least, is agreeable and would like [facility] if pt is agreeable. SW to stop back in.
--- NOTE | 2024-07-29 12:05 | SWNOTE1 ---
Important Message from [employer] reviewed and discussed with patient's . She verbalized understanding and signed the form. Original given to patient's and copy placed in patient?s chart.
[2024-07-29 12:25] LABS: Glucometer 220 mg/dL (74-106)
[2024-07-29] MEDS: INSULIN ASPART 300 UNIT/3 ML PEN SUBQ ×2 (12:29→22:20)
[2024-07-29] MEDS: HYDROCORTISONE HC 2.5% RECTAL CREAM 30 APPLIC TUBE PR ×2 (12:29→20:48)
[2024-07-29] MEDS: METHYLPREDNISOLONE SOD SUCC PF 40 MG/ML VIAL IVP (13:53)
[2024-07-29] MEDS: ACETAMINOPHEN 500 MG TABLET 1000 MG PO (13:53)
[2024-07-29] MEDS: DIPHENHYDRAMINE HCL 25 MG CAPSULE PO (13:53)
[2024-07-29] MEDS: 0.9 % SODIUM CHLORIDE 250 ML 10 ML IV (13:59)
--- NOTE | 2024-07-29 14:13 | SWNOTE1 ---
SW spoke to PT and pt was in too much pain to work with them. SW to stop back in and speak with pt and .
--- NOTE | 2024-07-29 15:06 | SWNOTE1 ---
SW stopped back in room. Pt was sleeping and sitting at bedside. Pt voiced that he did not participate with PT and is not feeling well. SW to follow up with discharge planning tomorrow.
[2024-07-29] MEDS: FILGRASTIM-SNDZ 480 MCG/0.8 ML SYRINGE SUBQ (16:05)
[2024-07-29] MEDS: RIVAROXABAN 10 MG TABLET 20 MG PO (17:04)
[2024-07-29 17:06] LABS: Glucometer 141 mg/dL (74-106)
--- NOTE | 2024-07-29 17:36 | PC.NURSE ---
second dose of lactulose given. Patient still very uncomfortable and unable to have a BM so suppository was requested
[2024-07-29] MEDS: BISACODYL 10 MG RECTAL SUPPOSITORY PR (18:19)
[2024-07-29 18:48] LABS: Hematocrit 25.9 % (42.0-54.0); Hemoglobin 8.2 g/dL (14.0-18.0); Mean Corpuscular HGB Conc 31.7 g/dL (29.9-35.2); Mean Corpuscular Hemoglobin 30.4 pg (25.9-34.0); Mean Corpuscular Volume 95.9 fL (80.0-94.0); Red Cell Distribution Width 19.6 % (11.0-15.0)
[2024-07-29 18:51] LABS: Platelet Count 22 10^3/uL (150-450); White Blood Count 0.2 10^3/uL (4.0-11.0)
--- NOTE | 2024-07-29 19:14 | PC.NURSE ---
rn's at bedside administered suppository and ultimately an enema. Was able to get out a moderate amount of stool. Patient reports relief but still some stool to come out. Dr. Sahu notified
--- NOTE | 2024-07-29 19:31 | PC.NURSE ---
Dr. Sahu notified of wbc count and platelet level
[2024-07-29 19:37] LABS: Lymphocytes Absolute Manual 0.12 10^3/uL (1.20-3.80); Segmented Neut Absolute Manual 0.01 10^3/uL (1.4-6.5)
[2024-07-29 19:38] LABS: Monocytes Absolute Manual 0.05 10^3/uL (0.30-0.80)
[2024-07-29] MEDS: LATANOPROST 0.005% 2.5 ML BOTTLE 1 DROP OP (20:54)
[2024-07-29 22:20] LABS: Glucometer 223 mg/dL (74-106)
[2024-07-30] VITALS (34 sets, daily range): BP systolic 71–145; BP diastolic 47–77; PULSE 60–81; TEMP 36.4–37.1; O2SAT 88–96; BMI 22.6
[2024-07-30] MEDS: METOCLOPRAMIDE HCL 10 MG/2 ML VIAL IVP ×4 (02:58→21:15)
[2024-07-30] MEDS: PIPERACILLIN SODIUM/TAZOBACTAM 3.375 GM in 0.9 % SODIUM CHLORIDE 50 ML IV (03:01)
[2024-07-30] MEDS: IPRATROPIUM/ALBUTEROL SULFATE 3 ML AMPUL.NEB IH ×4 (04:03→23:22)
[2024-07-30 05:24] LABS: Hematocrit 24.5 % (42.0-54.0); Hemoglobin 7.8 g/dL (14.0-18.0); Immature Granulocytes Abs Auto 0.01 10^3/uL (0.00-0.03); Immature Granulocytes Pct Auto 5.6 % (0.0-0.5); Lymphocytes Absolute Auto 0.1 10^3/uL (1.2-3.8); Lymphocytes Percent Auto 55.6 % (20.5-60.0); Mean Corpuscular HGB Conc 31.8 g/dL (29.9-35.2); Mean Corpuscular Hemoglobin 29.9 pg (25.9-34.0); Mean Corpuscular Volume 93.9 fL (80.0-94.0); Monocytes Absolute Auto 0.1 10^3/uL (0.3-0.8); Monocytes Percent Auto 27.8 % (1.7-12.0); Red Blood Count 2.61 10^6/uL (4.70-6.10)
[2024-07-30 05:48] LABS: Alanine Aminotransferase 18 U/L (16-63); Albumin Globulin Ratio 0.9; Albumin Level 2.5 g/dL (3.4-5.0); Alkaline Phosphatase 62 U/L (46-116); Anion Gap 9.7; Aspartate Amino Transferase 15 U/L (15-37); BUN Creatinine Ratio 41.4; Bilirubin Total 1.8 mg/dL (0.2-1.0); Calcium 9.2 mg/dL (8.5-10.1); Carbon Dioxide 34.4 mmol/L (21.0-32.0); Chloride 107 mmol/L (98-107); Estimated GFR (African America 59 (>=60 mL/min/1.73m^2); Estimated GFR (Non-African Ame 49 (>=60 mL/min/1.73m^2); Globulin 2.9 g/dL; Glucose 79 mg/dL (74-106); Potassium 4.1 mmol/L (3.5-5.1); Sodium 147 mmol/L (136-145); Total Protein 5.4 g/dL (6.4-8.2); Troponin I High Sensitivity 49.3 pg/mL (4.0-76.1)
[2024-07-30 06:23] LABS: White Blood Count 0.2 10^3/uL (4.0-11.0)
[2024-07-30 06:24] LABS: Platelet Count 18 10^3/uL (150-450)
[2024-07-30 06:26] LABS: Digoxin 1.8 ng/mL (0.9-2.0)
--- NOTE | 2024-07-30 08:03 | P.PN_ITS ---
Progress Note: Subjective Subjective Interval history: Very fatigued this morning, worse than previous day Exam Constitutional Vital Signs, click to edit/add: Last Vital Signs Temp 97.8 F 07/30/24 03:27 Pulse 65 07/30/24 08:00 Resp 16 07/30/24 04:09 BP 112/62 07/30/24 04:23 Pulse Ox 88 L 07/30/24 04:09 O2 Del Method Nasal Cannula 07/30/24 04:09 O2 Flow Rate 3 07/30/24 04:09 Documenting provider has reviewed patient's vital signs: yes Common normals: apparent distress (Fatigue seems worse) Chest Common normals: inspection of chest normal and palpation of chest normal Respiratory Common normals: normal respiratory effort (No respiratory distress still seems fatigued) and clear to auscultation bilaterally Auscultation: no rales, no rhonchi (Few scattered rhonchi this morning) and no wheezes Cardio Common normals: regular rate and no murmurs; irregular rhythm Rhythm: abnormal rhythm GI Common normals: Normal to inspection, nondistended, normoactive bowel sounds present, soft to palpation, no hepatosplenomegaly and no masses Extremity Common normals: abnormal to inspection (1 plus edema-improved) Progress Note: Objective Labs Labs: Short CBC 07/29/24 07/30/24 Range/Units 18:35 05:11 WBC 0.2 L* 0.2 L* (4.0-11.0) 10^3/uL Hgb 8.2 L 7.8 L (14.0-18.0) g/dL Hct 25.9 L 24.5 L (42.0-54.0) % Plt Count 22 L* 18 L* (150-450) 10^3/uL BMP 07/30/24 05:11 Sodium 147 H Potassium 4.1 Chloride 107 Carbon Dioxide 34.4 H BUN 58.0 H Creatinine 1.40 H Glucose 79 Calcium 9.2 Liver Function 07/30/24 Range/Units 05:11 Total Bilirubin 1.8 H (0.2-1.0) mg/dL AST 15 (15-37) U/L ALT 18 (16-63) U/L Alkaline Phosphatase 62 (46-116) U/L Albumin 2.5 L (3.4-5.0) g/dL Progress Note: A&P Assessment and Plan (1) Dehydration: (2) Nausea & vomiting: (3) Lung cancer: (4) Respiratory distress: (5) Congestive heart failure: (6) CAD (coronary artery disease): Qualifiers: Associated angina: without angina Coronary Disease-Associated Artery/Lesion type: [place] artery [place] vs. transplanted heart: [place] heart Qualified Code(s): I25.10 - Atherosclerotic heart disease of [place] coronary artery without angina pectoris (7) Hypoxia: (8) COPD (chronic obstructive pulmonary disease): (9) Atrial fibrillation: Qualifiers: Atrial fibrillation type: permanent Qualified Code(s): I48.21 - Permanent atrial fibrillation (10) Diabetes mellitus: (11) Hypertension: Qualifiers: Hypertension type: primary hypertension Qualified Code(s): I10 - Essential (primary) hypertension Plan Admission findings: Borderline bradycardia, uncontrolled hypertension, acute hypoxic with O2 sats 82% on his 3 L bumped up to 5 L and O2 sats are in the low 90s secondary to acute hyperemesis possible aspiration pneumonia, follow-up labs are pending Acute hypoxia related to acute hyperemesis and likely aspiration pneumonia- hypothermic overnight time, adjusting antibiotics, repeat blood culture unable to give sputum culture Acute NSTEMI type II secondary to the above possible aspiration pneumonia now with neutropenia-consult to cardiology today, troponin improved Neutropenia-down further today, check with oncology Digoxin toxicity-improved today-normal Acute hyperemesis with dehydration with his BUN/creatinine ratio of over 40,--improving, able to eat some GERD-start patient on IV Reglan and IV Protonix Hypernatremia-still elevated but stable Elevated liver function test elevation-continue to follow Chronic combined congestive heart failure-edema is improved, continue to follow BNP, consult to cardiology Severe protein calorie malnutrition-diet supplement Lung cancer with currently going through chemotherapy so immune deficiency Thrombocytopenia-monitor daily Iron deficiency anemia-monitor daily Diabetes mellitus-insulin sliding scale Coronary artery disease-check cardiac markers Hypertension-maintain current medications with changes metoprolol to Coreg due t o bradycardia Atrial fibrillation-maintain anticoagulation Admission status: Patient will be placed in observation status, initially placed in observation, patient with acute NSTEMI secondary to likely aspiration pneumonia secondary to hyperemesis secondary to digoxin toxicity, medically necessary treatment will span 2 midnights. Inpatient status
[2024-07-30] MEDS: PANTOPRAZOLE SODIUM 40 MG VIAL IV ×2 (09:14→21:15)
[2024-07-30] MEDS: GLIMEPIRIDE 2 MG TABLET 1 MG PO (09:14)
[2024-07-30] MEDS: METHYLPREDNISOLONE SOD SUCC PF 40 MG/ML VIAL IVP (09:14)
[2024-07-30] MEDS: CANAGLIFLOZIN 100 MG TABLET PO (09:14)
[2024-07-30] MEDS: POLYETHYLENE GLYCOL 3350 17 GM POWDER PACKET PO (09:14)
[2024-07-30] MEDS: ACETAMINOPHEN 500 MG TABLET 1000 MG PO (09:15)
[2024-07-30] MEDS: BUMETANIDE 1 MG/4 ML VIAL IVP ×2 (09:15→15:28)
[2024-07-30] MEDS: METFORMIN HCL 500 MG TABLET PO (09:16)
[2024-07-30] MEDS: MULTIVITAMIN TABLET 1 TAB PO (09:16)
[2024-07-30] MEDS: SPIRONOLACTONE 25 MG TABLET 50 MG PO (09:16)
[2024-07-30] MEDS: DIPHENHYDRAMINE HCL 25 MG CAPSULE PO (09:16)
[2024-07-30] MEDS: PROSTAT 15 GM PROTEIN/100 CAL 30 ML LIQUID PACKET PO (09:16)
[2024-07-30] MEDS: CARVEDILOL 12.5 MG TABLET PO (09:16)
[2024-07-30] MEDS: AMLODIPINE BESYLATE 5 MG TABLET 10 MG PO (09:16)
[2024-07-30] MEDS: POTASSIUM CHLORIDE 10 MEQ ER TABLET PO (09:16)
[2024-07-30] MEDS: LOSARTAN POTASSIUM 50 MG TABLET PO (09:16)
[2024-07-30] MEDS: DORZOLAMIDE HCL 2%/TIMOLOL MALEATE 0.5% 200 DROP/10 ML BOTTLE OP ×2 (09:17→21:16)
[2024-07-30] MEDS: HYDROCORTISONE HC 2.5% RECTAL CREAM 30 APPLIC TUBE PR ×2 (09:17→21:17)
[2024-07-30] MEDS: ENSURE HP 237 ML LIQUID PO (09:18)
[2024-07-30] MEDS: CEFTAZIDIME 2,000 MG in 0.9 % SODIUM CHLORIDE 100 ML 200 MG IV ×2 (09:20→21:15)
[2024-07-30] MEDS: CLINDAMYCIN PHOSPHATE/D5W 600 MG/50 ML PREMIX 100 MG IV ×3 (10:00→23:05)
--- NOTE | 2024-07-30 11:11 | XR_ITS ---
The [address] [address] Patient Name: KHADAR RAMOS MRN: [id number] date: 1940 Sex: M Assigned Patient Location: Current Patient Location: Accession/Order Number: [id number] Exam Date: 07/30/2024 11:47 Report Date: 07/30/2024 11:58 At the request of: JOSY DELACRUZ MD Procedure: XR acute abdomen series ACUTE ABDOMEN SERIES WITH PA CHEST: CLINICAL HISTORY: Abd pain, nausea COMPARISON: 07/27/[address] chest 07/29/2024 The chest film shows a left-sided pacemaker. The heart is slightly prominent. A hiatal hernia is present. There is widening of the superior mediastinum which correlates with a distended esophagus. Minor scarring or atelectasis is noted. There is subtle patchy opacity at the right lung base with corresponding abnormality on recent CT. A masslike area at the left apex is partially obscured by the clavicle. No other consolidation, sizable effusion or pneumothorax is seen. Supine and upright views of the abdomen and pelvis demonstrate air within the transverse colon. Within the right lower abdomen on the supine view, there is a donut-shaped 5 - 6 cm air-containing structure with potential thickened wall. There is no significant colonic stool. There is no small bowel dilatation, free air or air-fluid levels. No soft tissue masses or suspect renal calculi are seen. There is atherosclerotic disease. Slight levoscoliotic curvature and endplate spurring are noted at the spine. There are prostate radiation seeds. XR/XR acute abdomen series IMPRESSION: CARDIOMEGALY, ESOPHAGEAL DILATATION AND HIATAL HERNIA. MILD PARENCHYMAL CHANGES, ALSO SEEN ON RECENT CHEST CT. NONOBSTRUCTIVE BOWEL GAS PATTERN WITH QUESTION OF AN ABNORMAL BOWEL LOOP AT THE RIGHT LOWER ABDOMEN. CLINICAL CORRELATION IS SUGGESTED WITH FOLLOW-UP IMAGING, WARRANTED. Impression dictated by: Yasemin Shirley M.D. 07/30/2024 11:58 AM Dictation Location: [place] [address] Electronically authenticated by: [id number] Y Date: 07/30/2024 11:58
[2024-07-30 11:46] LABS: Glucometer 163 mg/dL (74-106)
[2024-07-30] MEDS: HYDROMORPHONE HCL 0.5 MG/0.5 ML SYRINGE IV ×3 (11:49→21:20)
--- NOTE | 2024-07-30 12:11 | CM.NOTE ---
Spoke with pt and regarding OT recommendations, pt has been to weak and refusing PT at this time. OT is recommending skilled therapy at discharge, pt and are open to skilled therapy. Pt has gone to [place] in the past and had good experience and would like to return there. Explained that pt would not receive his chemo treatments while at [place] for skilled, he would resume after discharge from skilled rehab. Both verbalize understanding, states chemo has already been pushed back d/t pt's labs and overall health. Spoke with Kenyatta at [place] [facility] and referral sent.
--- NOTE | 2024-07-30 12:36 | CT_ITS ---
The [address] [address] Patient Name: KHADAR RAMOS MRN: [id number] date: 1940 Sex: M Assigned Patient Location: [place] Current Patient Location: [place] Accession/Order Number: [id number] Exam Date: 07/30/2024 14:50 Report Date: 07/30/2024 15:02 At the request of: JOSY DELACRUZ MD Procedure: CT abdomen pelvis w con CT abdomen pelvis w con 07/30/2024 2:31 PM SIGNS AND SYMPTOMS: Acute abdominal pain with nausea, unable to keep down food, possible bowel obstruction TECHNIQUE: Multidetector ct axial images of the abdomen and pelvis were obtained with IV contrast. Multiplanar reformats were performed and reviewed to further define anatomy and possible pathology. CT was performed with one or more of the following dose reduction techniques: Automated exposure control, adjustment of the mA and/or kV according to patient size, or use of iterative reconstruction technique. COMPARISON: 04/30/2024 and 07/29/2004 FINDINGS: Lower Chest: There is cardiomegaly. Atherosclerotic changes are noted in the thoracic aorta and coronary arteries. Small bilateral pleural effusions are present. There is an atelectasis in the lung bases. There is dependent airspace opacity which is unchanged when compared to the prior exam. There is a hiatal hernia with gastric fundus in the lower mediastinum. ABDOMEN: Liver: Within normal limits. Bile Ducts: Normal caliber. Gallbladder: No calcified gallstones. Normal caliber wall. Pancreas: There is a 4.1 cm cyst within the pancreas. This is unchanged. Spleen: Within normal limits. Adrenals: There is a 1.8 cm nodule in the right adrenal gland which is unchanged. Kidneys: Simple cysts are redemonstrated in the renal cortices requiring no further follow-up. There is no hydronephrosis. Pelvis: Reproductive Organs: Radiation seeds are noted in the prostate. Ureters: Within normal limits. Bladder: Within normal limits. Bowel: There is wall thickening along the descending colon, sigmoid colon, and rectum possibly representing colitis. There is no evidence of bowel obstruction. There are uncomplicated colonic diverticula. Mesenteric Lymph Nodes: No enlarged mesenteric lymph nodes. Peritoneum: No ascites or free air, no fluid collection. Vessels: Atherosclerotic changes are noted in the abdominal aorta and its branches. Retroperitoneum: Within normal limits. Abdominal Wall: Within normal limits. Bones: Degenerative changes are noted in the lumbar spine CT/CT abdomen pelvis w con IMPRESSION: There is a hiatal hernia with gastric fundus in the lower mediastinum. Airspace opacity is noted dependently in the lung bases. This is unchanged when compared to the recent CT of the chest. There is wall thickening along the descending and sigmoid colon as well as the rectum suspicious for colitis. No bowel obstruction or obstructive uropathy. Multiple additional chronic findings are redemonstrated as above. Impression dictated by: Isai Grossman M.D. 07/30/2024 3:02 PM Dictation Location: [place] [address] Electronically authenticated by: [id number] Y Date: 07/30/2024 15:02
--- NOTE | 2024-07-30 13:58 | CM.NOTE ---
Spoke with pt regarding participation with PT in case he would need skilled therapy at discharge. Pt at this time states he is too weak. Referral sent to [facility] with OT note to attempt to start precert.
[2024-07-30 15:26] LABS: Hematocrit 27.2 % (42.0-54.0); Hemoglobin 8.8 g/dL (14.0-18.0); Mean Corpuscular HGB Conc 32.4 g/dL (29.9-35.2); Mean Corpuscular Hemoglobin 30.4 pg (25.9-34.0); Mean Corpuscular Volume 94.1 fL (80.0-94.0); Mean Platelet Volume 11.5 fL (9.5-13.5); Red Blood Count 2.89 10^6/uL (4.70-6.10)
[2024-07-30] MEDS: FILGRASTIM-SNDZ 480 MCG/0.8 ML SYRINGE SUBQ (15:40)
[2024-07-30 15:48] LABS: White Blood Count 0.1 10^3/uL (4.0-11.0)
[2024-07-30 15:49] LABS: Platelet Count 10 10^3/uL (150-450)
[2024-07-30 16:25] LABS: Lymphocytes Absolute Manual 0.05 10^3/uL (1.20-3.80); Monocytes Absolute Manual 0.04 10^3/uL (0.30-0.80)
[2024-07-30 16:26] LABS: Anisocytosis 2+
[2024-07-30 16:27] LABS: Nucleated Red Blood Cells 2
[2024-07-30 16:29] LABS: Glucometer 228 mg/dL (74-106)
[2024-07-30] MEDS: FAMOTIDINE/PF 20 MG/2 ML VIAL 40 MG IV (16:36)
[2024-07-30] MEDS: INSULIN ASPART 300 UNIT/3 ML PEN SUBQ (17:28)
--- NOTE | 2024-07-30 18:34 | PM.CACN ---
History of Present Illness History of Present Illness Chief complaint: weakness, NAUSEA, VOMITING, DEHYDRATION Narrative: Ar Dawn is an 84-year-old male with a complex medical history including coronary artery disease status post two stents, heart failure with preserved ejection fraction (HFpEF), atrial fibrillation with slow ventricular response status post [employer] pacemaker placement, hypertension, hyperlipidemia, and lung cancer currently undergoing chemotherapy. He was brought to the emergency department by his due to concerns of persistent fatigue, nausea, vomiting, lower extremity edema, and signs of dehydration. On arrival, he was noted to be clinically volume-depleted with a significantly elevated RST-tn-tvwdebngrl ratio. He was initially placed on 3L nasal cannula but was saturating only at 82%. Review of Systems ROS Constitutional Reports: fatigue Cardiovascular Reports: chest pain and swelling of feet/ankles [facility] Medical History (Updated 07/27/24 @ 13:35 by Remi Ren MD) Lung cancer ?C34.90 - Malignant neoplasm of unspecified part of unspecified bronchus or lung (ICD-10) Bacteremia ?R78.81 - Bacteremia (ICD-10) Glaucoma ?H40.9 - Unspecified glaucoma (ICD-10) Hypoxia ?R09.02 - Hypoxemia (ICD-10) Respiratory distress ?R06.03 - Acute respiratory distress (ICD-10) Congestive heart failure ?I50.9 - Heart failure, unspecified (ICD-10) CAD (coronary artery disease) ?I25.10 - Atherosclerotic heart disease of [place] coronary artery without angina pectoris (ICD-10) Pneumonia ?J18.9 - Pneumonia, unspecified organism (ICD-10) Acute on chronic systolic (congestive) heart failure ?I50.23 - Acute on chronic systolic (congestive) heart failure (ICD-10) Hypoxia ?R09.02 - Hypoxemia (ICD-10) COPD (chronic obstructive pulmonary disease) ?J44.9 - Chronic obstructive pulmonary disease, unspecified (ICD-10) Congestive heart failure ?I50.9 - Heart failure, unspecified (ICD-10) Hematuria ?R31.9 - Hematuria, unspecified (ICD-10) Atrial fibrillation ?I48.91 - Unspecified atrial fibrillation (ICD-10) CHF (congestive heart failure) ?I50.9 - Heart failure, unspecified (ICD-10) Diabetes mellitus ?E11.9 - Type 2 diabetes mellitus without complications (ICD-10) Hypertension ?I10 - Essential (primary) hypertension (ICD-10) Prostate cancer ?C61 - Malignant neoplasm of prostate (ICD-10) Surgical History Pacemaker ?Z95.0 - Presence of cardiac pacemaker (ICD-10) H/O hernia repair ?Z98.890 - Other specified postprocedural states (ICD-10) ?Z87.19 - Personal history of other diseases of the digestive system (ICD-10) H/O heart artery stent ?Z95.5 - Presence of coronary angioplasty implant and graft (ICD-10) Family History Father Family history of myocardial infarction Family history of CHF (congestive heart failure) Brother Family history of CHF (congestive heart failure) Family history of hypertension Sister Family history of cancer Social History (Updated 05/26/24 @ 18:26 by Cristiane Gutierrez RN) Within the past year, how often did you have a drink containing alcohol: never Within the past year, how often did you have six or more drinks on one occasion: never Score interpretation: A score less than 4 is consistent with normal alcohol consumption. Smoking status: Former smoker Second hand tobacco smoke exposure: No Non-prescribed substance use: denies use Previous occupational history: retired Known occupational exposures/hazards: No Highest level of school completed/degree received: high school graduate Do you want help with school or training: No Are you now , , , , never or living with a partner: In a typical week, how many times do you talk on the telephone with family, friends, or neighbors: 3 or more times per week How often do you get together with friends or relatives: 3 or more times per week How often do you attend anabaptist or hoahaoism services: 4 or more times per year Do you belong to any clubs or organizations such as anabaptist groups unions, fraternal or athletic groups, or school groups: no Total score: 3 Score interpretation: A score of greater than or equal to 2 indicates the lowest level of social isolation. Little interest or pleasure in doing things: more than half the days Feeling down, depressed, or hopeless: nearly every day Feel stressed/tense/nervous/anxious/difficulty sleeping: not at all Due to disability, difficulty making decisions: No Do you think of yourself as: straight/heterosexual Gender Identity: male Meds Home Medications and Allergies Home Medications ?Medication ?Instructions ?Recorded ?Confirmed ?Type metformin 500 mg tablet 500 mg PO .QD 09/23/22 07/27/24 History pantoprazole 40 mg tablet,delayed 40 mg PO DAILY 09/23/22 07/27/24 History release rivaroxaban 20 mg tablet (Xarelto) 20 mg PO DAILY 09/23/22 07/27/24 History dorzolamide 22.3 mg-timolol 6.8 1 drp ophthalmic (eye) BID 01/10/24 07/27/24 History mg/mL eye drops empagliflozin 10 mg tablet 10 mg PO DAILY 01/10/24 07/27/24 History (Jardiance) latanoprost 0.005 % eye drops 1 drp ophthalmic (eye) QPM 01/10/24 07/27/24 History multivitamin (Daily Multi-Vitamin 1 tab PO DAILY 01/10/24 07/27/24 History tablet) omega 4-sco-oex-fish oil 300 1 cap PO DAILY 01/10/24 07/27/24 History mg-1,000 mg capsule (Fish Oil) amlodipine 10 mg tablet 10 mg PO DAILY #30 tabs 04/07/24 07/27/24 Rx digoxin 250 mcg (0.25 mg) tablet 250 mcg PO DAILY #30 tabs 05/17/24 07/27/24 Rx metoprolol tartrate 50 mg tablet 50 mg PO BID #60 tabs 05/17/24 07/27/24 Rx furosemide 40 mg tablet (Lasix) 40 mg PO Q12H 05/26/24 07/27/24 History glimepiride 2 mg tablet 1 mg PO DAILY 07/27/24 07/27/24 History irbesartan 150 mg tablet 150 mg PO .QD 07/27/24 07/27/24 History metoclopramide HCl 5 mg tablet 5 mg PO ACHS 07/27/24 07/27/24 History potassium chloride 10 mEq 10 meq PO BID 07/27/24 07/27/24 History tablet,extended release (Klor-Con) prochlorperazine maleate 10 mg 10 mg PO Q8H PRN nausea and 07/27/24 07/27/24 History tablet vomiting spironolactone 50 mg tablet 50 mg PO QAM 07/27/24 07/27/24 History Allergies Allergy/AdvReac Type Severity Reaction Status Date / Time No Known Drug Allergies Allergy Verified 07/27/24 12:29 Exam Constitutional Vital Signs, click to edit/add: Last Vital Signs Temp 98.0 F 07/30/24 16:28 Pulse 69 07/30/24 17:46 Resp 20 07/30/24 16:28 BP 98/50 07/30/24 16:28 Pulse Ox 91 L 07/30/24 16:46 O2 Del Method Nasal Cannula 07/30/24 16:46 O2 Flow Rate 3 07/30/24 16:46 Common normals: no apparent distress General appearance: cooperative, lethargic and frail appearing Orientation/consciousness: Yes lethargic Chest Chest: symmetrical chest wall rise Respiratory Common normals: normal respiratory effort Effort & inspection: able to speak in complete sentences Auscultation: clear to auscultation bilaterally Cardio Common normals: peripheral pulses 2+ throughout Rhythm: abnormal rhythm Peripheral pulses: pulses 2+ throughout Extremity General: edema Results Labs and Meds Lab results: Cardiac Enzymes 07/30/24 Range/Units 05:11 AST 15 (15-37) U/L CBC 07/29/24 07/30/24 07/30/24 Range/Units 18:35 05:11 15:12 WBC 0.2 L* 0.2 L* 0.1 L* (4.0-11.0) 10^3/uL RBC 2.70 L 2.61 L 2.89 L (4.70-6.10) 10^6/uL Hgb 8.2 L 7.8 L 8.8 L (14.0-18.0) g/dL Hct 25.9 L 24.5 L 27.2 L (42.0-54.0) % Plt Count 22 L* 18 L* 10 L* (150-450) 10^3/uL Neut # (Auto) 0.0 L (1.4-6.5) 10^3/uL Lymph # (Auto) 0.1 L (1.2-3.8) 10^3/uL [place] # (Auto) 0.1 L (0.3-0.8) 10^3/uL Eos # (Auto) 0.0 (0.0-0.7) 10^3/uL Baso # (Auto) 0.0 (0.0-0.1) 10^3/uL Comprehensive Metabolic Panel 07/30/24 Range/Units 05:11 Sodium 147 H (136-145) mmol/L Potassium 4.1 (3.5-5.1) mmol/L Chloride 107 (98-107) mmol/L Carbon Dioxide 34.4 H (21.0-32.0) mmol/L BUN 58.0 H (7.0-18.0) mg/dL Creatinine 1.40 H (0.70-1.30) mg/dL Glucose 79 (74-106) mg/dL Calcium 9.2 (8.5-10.1) mg/dL AST 15 (15-37) U/L ALT 18 (16-63) U/L Alkaline Phosphatase 62 (46-116) U/L Total Protein 5.4 L (6.4-8.2) g/dL Albumin 2.5 L (3.4-5.0) g/dL Intake and Output 07/30/24 07/30/24 07/30/24 07:59 15:59 23:59 Intake Total 100 / 1500 740 / 790 50 / 790 Output Total 450 / 850 100 / 100 Balance -350 / 650 640 / 690 50 / 690 Intake: Oral 240 / 240 Blood Product 0 / 0 Leukocyte Reduced Rbc Unit 0 / 0 [id number] Other 350 / 350 Leukocyte Reduced Rbc Unit 350 / 350 [id number] IV 100 / 350 150 / 200 50 / 200 Ceftazidime 2,000 mg In 0.9 % 100 / 100 Sodium Chloride 100 ml @ 200 mls/hr IV Q12H REBECCA Rx#:[id number] Clindamycin Phosphate/D5w 600 50 / 100 50 / 100 mg In 50 ml @ 100 mls/hr IV Q6H REBECCA Rx#:[id number] Piperacillin Sodium/Tazobactam 100 / 200 3.375 gm In 0.9 % Sodium Chloride 50 ml @ 12.5 mls/hr IV Q8H REBECCA Rx#:[id number] Output: Urine 150 / 150 100 / 100 Urine/Stool Mix 300 / 700 Other: # Voids 1 # Bowel Movements 1 1 # Incontinent Bowel Movements 1 Assessment and Plan Assessment and Plan (1) Dehydration: (2) Nausea & vomiting: (3) Lung cancer: (4) Respiratory distress: (5) Congestive heart failure: (6) CAD (coronary artery disease): Qualifiers: Coronary Disease-Associated Artery/Lesion type: [place] artery [place] vs. transplanted heart: [place] heart Associated angina: without angina Qualified Code(s): I25.10 - Atherosclerotic heart disease of [place] coronary artery without angina pectoris (7) Hypoxia: (8) COPD (chronic obstructive pulmonary disease): (9) Atrial fibrillation: Qualifiers: Atrial fibrillation type: permanent Qualified Code(s): I48.21 - Permanent atrial fibrillation (10) Diabetes mellitus: (11) Hypertension: Qualifiers: Hypertension type: primary hypertension Qualified Code(s): I10 - Essential (primary) hypertension Plan #NSTEMI #Elevated troponin High-sensitivity troponin is trending down, with a peak at admission of 98.2 on 07/27/24 and currently 49.3 today 07/27/24 Clinical picture is consistent with a Type II myocardial infarction, likely demand-related in the setting of recent aspiration pneumonia. Patient reports mild chest discomfort, rated 2/10, described as a dull, ?annoying? sensation that comes on suddenly, lasts for a few seconds to minutes, and resolves spontaneously. ? Monitor for recurrence of symptoms - no changes to current ACS management at this time #HFpEF NYHA classification is currently difficult to assess, but the patient appears close to euvolemia on clinical exam. Trace bilateral lower extremity edema - the patient wears compression stockings. Bedside POCUS shows no pleural effusion - no anechoic fluid above the diaphragm, and no diffuse B-lines. Bilateral A-lines are present. The IVC is plethoric at 2.5 cm with no respiratory collapse, and the IJ veins are dilated but remain collapsible. Findings consistent with elevated right-sided filling pressures but overall near-euvolemic status. GDMT: ? Continue furosemide 40 mg PO q12h ? Continue empagliflozin 10 mg daily ? Continue spironolactone 50 mg daily ? Continue to monitor daily weights and strict I/Os, monitor renal function / electrolytes #Atrial Fibrillation The patient has a CHADS2-VASc score of 5 (due to hypertension, heart failure, and age), placing them at high risk for thromboembolic events. Rhythm control is maintained with rate-controlling agents and anticoagulation. Initially presented with dig toxicity - level was 3.4 ? Continue rivaroxaban 20 mg daily ? Continue metoprolol tartrate 50 mg BID ? Continue digoxin 250 mcg daily #Cardiac Pacemaker in situ The patient is status post dual-chamber pacemaker placement on 03/03/[address] Perez. The most recent remote device interrogation was on 07/07/2024 #Lung Cancer The patient is currently undergoing chemotherapy. ? Coordinate with oncology - no cardiology-specific intervention needed at this time. #COPD The patient is on baseline oxygen at 2?3 L via nasal cannula and is currently saturating well in the 90s. No signs of acute respiratory distress noted on exam. ? Continue home oxygen and monitor for respiratory changes. #Hypertension Blood pressure remains stable and within goal range. ? Continue amlodipine 10 mg daily ? Contnine irbesartan 150 mg daily. Plan Overview: ? Continue diuresis to achieve euvolemia ? Continue GDMT for HFpEF ? Monitor chest pain symptoms and troponin trend, repeat only if worsening chest pain arises ? Maintain anticoagulation and rate control for atrial fibrillation ? Supportive care in collaboration with oncology and pulmonology teams Raciel Cortes, [facility] Cardiovascular Medicine #NSTEMI #Elevated troponin HS troponin trending down slightly, peak 98.2 on 07/27 and now 49.3 today Likely demand ischemia in the setting of aspiration PNA Pt has 2/10 chest pain that come out of the blue described as annoying dull pain last a few seconds to minutes and it resolves on its own #HFpEF NYHA - unable to access Near euvolemia Trace LE edema - wear compression stockings Bedside POCUS revealed no pleural effusion - no anechoic fluid above the diaphragm, and no diffuse B-lines. Bilateral A-lines present. IVC plethoric (2.5 cm, no collapse), and IJ veins dilated but collapsible ? findings suggest elevated right-sided filling pressures but near-euvolemic status GDMT: -Continue Lasix 40 mg PO q12 -Continue Jardiance 10 mg daily -Continue Spironolactone 50 mg daily -Continue to monitor I's + Os and daily weights #Afib CHADS2-VASc = 5 (HTN, HF, age, HTN) -Continue Xarelto 20 mg daily -Continue metoprolol tartrate 50 mg BID -Continue digoxin 250 mcg daily #Cardiac pacemaker in situ 03/03/2024 s/p PPM per Dr. Perez Most recent remote device check 07/07/24 #Lung Ca Currently undergoing chemo #COPD Pt is on baseline O2 2-3 L NC saturing in 90's In no acute respiratory distress #HTN Stable -Continue amlodipine 10 mg daily -Continue irbesartan 150 mg daily Plan overview: --Continue diuresis to euvolemia --Continue GDMT for HFpEF
[2024-07-30] MEDS: ONDANSETRON PF 4 MG/2 ML VIAL IV (18:35)
[2024-07-30] MEDS: LATANOPROST 0.005% 2.5 ML BOTTLE 1 DROP OP (21:16)
[2024-07-30 21:25] LABS: Glucometer 117 mg/dL (74-106)
[2024-07-31] VITALS (15 sets, daily range): BP systolic 70–83; BP diastolic 42–56; PULSE 59–76; TEMP 36.7–37.7; O2SAT 82–97
[2024-07-31] MEDS: METOCLOPRAMIDE HCL 10 MG/2 ML VIAL IVP ×3 (02:11→13:06)
[2024-07-31] MEDS: CLINDAMYCIN PHOSPHATE/D5W 600 MG/50 ML PREMIX 100 MG IV ×3 (04:02→15:06)
[2024-07-31] MEDS: IPRATROPIUM/ALBUTEROL SULFATE 3 ML AMPUL.NEB IH ×2 (05:30→10:02)
[2024-07-31 05:34] LABS: Hematocrit 28.3 % (42.0-54.0); Hemoglobin 9.1 g/dL (14.0-18.0); Mean Corpuscular HGB Conc 32.2 g/dL (29.9-35.2); Mean Corpuscular Hemoglobin 30.5 pg (25.9-34.0); Mean Platelet Volume 11.3 fL (9.5-13.5); Red Blood Count 2.98 10^6/uL (4.70-6.10); Red Cell Distribution Width 19.2 % (11.0-15.0)
[2024-07-31 05:55] LABS: Albumin Globulin Ratio 0.7; Albumin Level 2.1 g/dL (3.4-5.0); Alkaline Phosphatase 58 U/L (46-116); Anion Gap 14.5; BUN Creatinine Ratio 35.5; Bilirubin Total 2.4 mg/dL (0.2-1.0); Calcium 8.8 mg/dL (8.5-10.1); Carbon Dioxide 28.8 mmol/L (21.0-32.0); Chloride 106 mmol/L (98-107); Estimated GFR (African America 38 (>=60 mL/min/1.73m^2); Estimated GFR (Non-African Ame 32 (>=60 mL/min/1.73m^2); Globulin 3.2 g/dL; Glucose 98 mg/dL (74-106); Potassium 5.3 mmol/L (3.5-5.1); Sodium 144 mmol/L (136-145); Total Protein 5.3 g/dL (6.4-8.2); Troponin I High Sensitivity 69.7 pg/mL (4.0-76.1)
[2024-07-31 06:15] LABS: Platelet Count 21 10^3/uL (150-450); White Blood Count 0.1 10^3/uL (4.0-11.0)
[2024-07-31 06:16] LABS: Alanine Aminotransferase 1568 U/L (16-63); Aspartate Amino Transferase 2113 U/L (15-37)
[2024-07-31 06:17] LABS: Digoxin 2.5 ng/mL (0.9-2.0)
[2024-07-31 06:45] LABS: Amylase 41 U/L (25-115); Lipase <10.0 U/L (16.0-77.0)
[2024-07-31 07:07] LABS: INR 1.46; Partial Thromboplastin Time 34.3 sec (22.3-36.2); Prothrombin Time 14.9 sec (9.0-11.6)
[2024-07-31 07:10] LABS: Ammonia 56 umol/L (11-32)
[2024-07-31] MEDS: 0.9 % SODIUM CHLORIDE 2,000 ML 500 ML IV (08:02)
[2024-07-31] MEDS: DORZOLAMIDE HCL 2%/TIMOLOL MALEATE 0.5% 200 DROP/10 ML BOTTLE OP (08:05)
[2024-07-31] MEDS: CEFTAZIDIME 2,000 MG in 0.9 % SODIUM CHLORIDE 100 ML 200 MG IV (08:09)
[2024-07-31] MEDS: PANTOPRAZOLE SODIUM 40 MG VIAL IV (08:17)
--- NOTE | 2024-07-31 08:17 | P.PN_ITS ---
Progress Note: Subjective Subjective Interval history: Difficult to arouse this morning does appear to answer yes and no questions Exam Constitutional Vital Signs, click to edit/add: Last Vital Signs Temp 100 F 07/31/24 07:49 Pulse 71 07/31/24 07:58 Resp 20 07/31/24 07:49 BP 83/49 L 07/31/24 07:49 Pulse Ox 90 L 07/31/24 07:49 O2 Del Method Nonrebreather 07/31/24 07:49 O2 Flow Rate 10 07/31/24 07:49 Documenting provider has reviewed patient's vital signs: yes Common normals: no apparent distress (Much less responsive than previous day) Chest Common normals: inspection of chest normal and palpation of chest normal Respiratory Common normals: normal respiratory effort (Somewhat shallow respirations), no retractions and clear to auscultation bilaterally Cardio Common normals: regular rate and regular rhythm; murmurs detected GI Common normals: Normal to inspection, nondistended, normoactive bowel sounds present and soft to palpation; tender (No rebound tenderness) Extremity Common normals: normal to inspection and no clubbing, cyanosis or edema Progress Note: Objective Labs Labs: Short CBC 07/30/24 07/31/24 Range/Units 15:12 04:57 WBC 0.1 L* 0.1 L* (4.0-11.0) 10^3/uL Hgb 8.8 L 9.1 L (14.0-18.0) g/dL Hct 27.2 L 28.3 L (42.0-54.0) % Plt Count 10 L* 21 L* (150-450) 10^3/uL BMP 07/31/24 04:57 Sodium 144 Potassium 5.3 H Chloride 106 Carbon Dioxide 28.8 BUN 72.0 H Creatinine 2.03 H Glucose 98 Calcium 8.8 Liver Function 07/31/24 Range/Units 04:57 Total Bilirubin 2.4 H (0.2-1.0) mg/dL AST 2113 H* (15-37) U/L ALT 1568 H* (16-63) U/L Alkaline Phosphatase 58 (46-116) U/L Albumin 2.1 L (3.4-5.0) g/dL Progress Note: A&P Assessment and Plan (1) Dehydration: (2) Nausea & vomiting: (3) Lung cancer: (4) Respiratory distress: (5) Congestive heart failure: (6) CAD (coronary artery disease): Qualifiers: Associated angina: without angina Coronary Disease-Associated Artery/Lesion type: [place] artery [place] vs. transplanted heart: false pass heart Qualified Code(s): I25.10 - Atherosclerotic heart disease of [place] coronary artery without angina pectoris (7) Hypoxia: (8) COPD (chronic obstructive pulmonary disease): (9) Atrial fibrillation: Qualifiers: Atrial fibrillation type: permanent Qualified Code(s): I48.21 - Permanent atrial fibrillation (10) Diabetes mellitus: (11) Hypertension: Qualifiers: Hypertension type: primary hypertension Qualified Code(s): I10 - Essential (primary) hypertension Plan Admission findings: Borderline bradycardia, uncontrolled hypertension, acute hypoxic with O2 sats 82% on his 3 L bumped up to 5 L and O2 sats are in the low 90s secondary to acute hyperemesis possible aspiration pneumonia, follow-up labs are pending Acute hypoxia related to acute hyperemesis and likely aspiration pneumonia- respiratory status deteriorated somewhat with needing 6 L of supplemental oxygen Neutropenic sepsis severe with multisystem organ dysfunction (heart failure, liver failure, renal failure): With change in status yesterday, hypothermic yesterday a low fever today, patient with neutropenic sepsis, CT scan suggest possible colitis, possibly Stercoral colitis, as a consequence of his constipation, antibiotics were adjusted yesterday based on the acute hypothermia, white blood cell count still remains significantly low secondary to chemotherapy now may be complicated by the severe sepsis, discussed with family, will repeat labs later today family wishes to push forward, patient may need Levophed if not responding to fluid boluses, repeat labs at noon Acute renal failure-baseline creatinine 0.98, creatinine over 2 today, secondary to the sepsis as outlined above Acute liver failure-enzymes elevated this morning, ammonia elevated this morning, repeat labs later today, fluid boluses in the morning and see progression at noon Acute NSTEMI type II secondary to the above possible aspiration pneumonia now with neutropenia-reviewed consult by cardiology Neutropenia-unchanged from previous day Digoxin toxicity-deteriorated today likely secondary to his acute renal failure Acute hyperemesis with dehydration with his BUN/creatinine ratio of over 40,-no further emesis GERD-start patient on IV Reglan and IV Protonix-maintain Hypernatremia-resolved Elevated liver function test elevation-significantly deteriorated this morning, repeat later today, likely related to the severe sepsis neutropenic sepsis Chronic combined congestive heart failure-edema resolved Severe protein calorie malnutrition-diet supplement-May need NG tube for feeding, discussed with family Lung cancer with currently going through chemotherapy so immune deficiency Thrombocytopenia-monitor daily Iron deficiency anemia-monitor daily Diabetes mellitus-insulin sliding scale Coronary artery disease-check cardiac markers Hypertension-maintain current medications with changes metoprolol to Coreg due to bradycardia Atrial fibrillation-holding anticoagulation now secondary to thrombocytopenia, high risk for bleeding Admission status: Patient will be placed in observation status, initially placed in observation, patient with acute NSTEMI secondary to likely aspiration pneumonia secondary to hyperemesis secondary to digoxin toxicity, medically necessary treatment will span 2 midnights. Inpatient status
[2024-07-31] MEDS: HYDROCORTISONE SODIUM SUCC PF 100 MG/2 ML VIAL IVP ×2 (08:44→16:18)
[2024-07-31] MEDS: ACETAMINOPHEN 650 MG RECTAL SUPPOSITORY PR (08:46)
--- NOTE | 2024-07-31 09:29 | CM.NOTE ---
Progress note, updated vitals and PT note faxed to [facility].
--- NOTE | 2024-07-31 10:00 | PC.NURSE ---
Vicki RN in to talk to regarding change in condition. She would like Hospice consult, to see options for comfort
--- NOTE | 2024-07-31 10:36 | CM.NOTE ---
requesting to speak with case Management regarding Hospice. Talked with about options for Hospice, does not have preference for Hospice company at this time. Support provided and questions answered, very tearful at this time d/t decline in husbands condition. Amor Sahu, order received for Hospice consult. Contacted [facility] and new referral sent. Updated Surekha that [facility] is on the way for consult at this time.
--- NOTE | 2024-07-31 12:16 | CM.NOTE ---
[facility] information consultant speaking with family and now automobile sales consultant requesting to speak with Case Management. is confused on DNRCCA and DNRCC, re-explained to and daughter meaning of both code status. Both verbalize understanding. Discussed with and daughter also regarding vital signs and HR and BP being low. Talked to family regarding lab work scheduled for noon and levophed drip to keep BP stable and perfuse vital organs. would like blood work completed but at this time does not want levophed drip. Explained risk to pt without intervention, continues to refuse levophed drip at this time. Lab coming up to draw blood at this time, Dr. Sahu will be coming over to speak with family. at this time speaking with information consultant and would like to sign on, nurse from [facility] will be here around 2:00. RN updated with plan of care.
[2024-07-31 12:47] LABS: Hematocrit 25.9 % (42.0-54.0); Hemoglobin 8.2 g/dL (14.0-18.0); Mean Corpuscular HGB Conc 31.7 g/dL (29.9-35.2); Mean Corpuscular Hemoglobin 30.4 pg (25.9-34.0); Mean Corpuscular Volume 95.9 fL (80.0-94.0)
[2024-07-31 12:51] LABS: PCO2 VBG 46.1 mmHg (40.0-52.0); pH VBG 7.349 (7.330-7.430)
[2024-07-31 12:52] LABS: Platelet Count 10 10^3/uL (150-450); White Blood Count 0.1 10^3/uL (4.0-11.0)
[2024-07-31 13:10] LABS: Albumin Globulin Ratio 0.7; Albumin Level 1.9 g/dL (3.4-5.0); Alkaline Phosphatase 54 U/L (46-116); Anion Gap 16.5; BUN Creatinine Ratio 33.1; Bilirubin Total 2.5 mg/dL (0.2-1.0); Calcium 7.7 mg/dL (8.5-10.1); Carbon Dioxide 28.9 mmol/L (21.0-32.0); Chloride 107 mmol/L (98-107); Estimated GFR (African America 30 (>=60 mL/min/1.73m^2); Estimated GFR (Non-African Ame 25 (>=60 mL/min/1.73m^2); Globulin 2.9 g/dL; Glucose 70 mg/dL (74-106); Potassium 5.4 mmol/L (3.5-5.1); Sodium 147 mmol/L (136-145); Total Protein 4.8 g/dL (6.4-8.2)
[2024-07-31 13:14] LABS: Alanine Aminotransferase 2264 U/L (16-63); Aspartate Amino Transferase 2254 U/L (15-37); Lactate/Lactic Acid 4.2 mmol/L (0.4-2.0); Troponin I High Sensitivity 135.1 pg/mL (4.0-76.1)
[2024-07-31 13:15] LABS: Ammonia 66 umol/L (11-32)
[2024-07-31 13:17] LABS: Lymphocytes Absolute Manual 0.09 10^3/uL (1.20-3.80); Monocytes Absolute Manual 0.01 10^3/uL (0.30-0.80)
[2024-07-31 13:18] LABS: Anisocytosis 1+; Ovalocytes 1+; Poikilocytosis 1+
--- NOTE | 2024-07-31 13:55 | CM.NOTE ---
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 Plan is to get everything set up in the home and discharge pt to home if able tomorrow. Family in agreement, Hospice will reach out to Dr. Sahu with plan of care.
--- NOTE | 2024-07-31 16:09 | CM.NOTE ---
07/31/24 16:00 Spoke to [facility] and patient will be made Hospice GIP today. Emailed Astrid Ruiz in Billing that Ar will be Hospice GIP starting today 07/31/24
--- NOTE | 2024-07-31 18:03 | P.DS_ITS ---
Discharge Sum: Prov Provider Primary care physician: Jaxon Sahu MD Consults: 07/27/24 17:23 Consult to Pharmacy Routine Consulting Provider: Reason for consultation: Please [place] me when Med Rec is Updated Has provider been notified: No Occupational Therapy Eval and Treat Routine Reason for consultation: Only if needed for Rehab Has provider been notified: No Physical Therapy Eval and Treat Routine Reason for consultation: Eval and Treat Has provider been notified: No 07/29/24 06:38 Consult to Cardiology Routine Reason for consultation: nstemi Has provider been notified: No 07/31/24 Consult to Hospice Routine Reason for consultation: lung CA, sepsis Discharge Sum: Diag Contributing Factors (1) Dehydration: (2) Nausea & vomiting: (3) Lung cancer: (4) Respiratory distress: (5) Congestive heart failure: (6) CAD (coronary artery disease): (7) Hypoxia: (8) COPD (chronic obstructive pulmonary disease): (9) Atrial fibrillation: (10) Diabetes mellitus: (11) Hypertension: Contributing factors: Admission findings: Borderline bradycardia, uncontrolled hypertension, acute hypoxic with O2 sats 82% on his 3 L bumped up to 5 L and O2 sats are in the low 90s secondary to acute hyperemesis possible aspiration pneumonia, follow-up labs are pending Acute hypoxia related to acute hyperemesis and likely aspiration pneumonia- respiratory status deteriorated somewhat with needing 6 L of supplemental oxygen Neutropenic sepsis severe with multisystem organ dysfunction (heart failure, liver failure, renal failure): With change in status yesterday, hypothermic yesterday a low fever today, patient with neutropenic sepsis, CT scan suggest possible colitis, possibly Stercoral colitis, as a consequence of his constipation, antibiotics were adjusted yesterday based on the acute hypothermia, white blood cell count still remains significantly low secondary to chemotherapy now may be complicated by the severe sepsis, discussed with family, will repeat labs later today family wishes to push forward, patient may need Levophed if not responding to fluid boluses, repeat labs at noon Acute renal failure-baseline creatinine 0.98, creatinine over 2 today, secondary to the sepsis as outlined above Acute liver failure-enzymes elevated this morning, ammonia elevated this morning, repeat labs later today, fluid boluses in the morning and see progression at noon Acute NSTEMI type II secondary to the above possible aspiration pneumonia now with neutropenia-reviewed consult by cardiology Neutropenia-unchanged from previous day Digoxin toxicity-deteriorated today likely secondary to his acute renal failure Acute hyperemesis with dehydration with his BUN/creatinine ratio of over 40,-no further emesis GERD-start patient on IV Reglan and IV Protonix-maintain Hypernatremia-resolved Elevated liver function test elevation-significantly deteriorated this morning, repeat later today, likely related to the severe sepsis neutropenic sepsis Chronic combined congestive heart failure-edema resolved Severe protein calorie malnutrition-diet supplement-May need NG tube for feeding, discussed with family Lung cancer with currently going through chemotherapy so immune deficiency Thrombocytopenia-monitor daily Iron deficiency anemia-monitor daily Diabetes mellitus-insulin sliding scale Coronary artery disease-check cardiac markers Hypertension-maintain current medications with changes metoprolol to Coreg due to bradycardia Atrial fibrillation-holding anticoagulation now secondary to thrombocytopenia, high risk for bleeding Admission status: Patient will be placed in observation status, initially placed in observation, patient with acute NSTEMI secondary to likely aspiration pneumonia secondary to hyperemesis secondary to digoxin toxicity, medically necessary treatment will span 2 midnights. Inpatient status Discharge Sum: Summary Date and Time Date of admission: 07/28/24 07:57 Summary Details: Patient who is currently undergoing chemotherapy, admitted after hyperemesis, did have some significant constipation but appeared to have aspiration pneumonia treated with IV antibiotics, 2 nights before he an episode of hypothermia, antibiotics were adjusted, CT scan obtained which showed possible colitis and this may be secondary to the constipation being stercoral colitis. Patient developed significant neutropenia and thrombocytopenia, he did require transfusion of platelets, several transfusion of PRBCs, on the day of his patient became more altered, episode of hypotension, patient went into mu ltisystem organ failure with elevated BNP and elevated liver enzymes likely due to sepsis due to the stercoral colitis. Multiple conversations with family, with things progressing rapidly and not improving despite aggressive fluid resuscitation, opted to make patient DNR-cc, patient was kept comfortable although antibiotics were maintained and patient at 1730 hrs. Additional Data Attending physician: Jaxon Sahu MD
--- NOTE | 2024-07-31 18:31 | PC.NURSE ---
Heydi and Heydi Armas notified of pt expiring. Spoke with Pawel...she will call back with ETA of staff arrival to collect body
== END 2024-07-31 19:00 | disposition expired | DRG 177 ==
LOC: ER 13:35 → MS 14:00
PROVIDERS: Admitting Provider Family Medicine; Emergency Provider Emergency Medicine; PCP Family Medicine; Visit Provider Family Medicine
DX: J69.0 Pneumonitis due to inhalation of food and vomit (principal); A41.89 Other specified sepsis; E43 Unspecified severe protein-calorie malnutrition; I21.A1 Myocardial infarction type 2; R65.20 Severe sepsis without septic shock; K72.00 Acute and subacute hepatic failure without coma; C34.90 Malignant neoplasm of unspecified part of unspecified bronchus or lung; I48.21 Permanent atrial fibrillation; E87.0 Hyperosmolality and hypernatremia; N17.9 Acute kidney failure, unspecified; I50.32 Chronic diastolic (congestive) heart failure; E86.0 Dehydration; R06.03 Acute respiratory distress; I25.10 Atherosclerotic heart disease of native coronary artery without angina pectoris; J44.9 Chronic obstructive pulmonary disease, unspecified; E11.9 Type 2 diabetes mellitus without complications; I11.0 Hypertensive heart disease with heart failure; R09.02 Hypoxemia; R11.2 Nausea with vomiting, unspecified; Z79.60 Long term (current) use of unspecified immunomodulators and immunosuppressants; K21.9 Gastro-esophageal reflux disease without esophagitis; D69.6 Thrombocytopenia, unspecified; D50.9 Iron deficiency anemia, unspecified; C61 Malignant neoplasm of prostate; Z95.0 Presence of cardiac pacemaker; Z95.5 Presence of coronary angioplasty implant and graft; Z87.891 Personal history of nicotine dependence; Z79.84 Long term (current) use of oral hypoglycemic drugs; D70.9 Neutropenia, unspecified; T46.0X5A Adverse effect of cardiac-stimulant glycosides and drugs of similar action, initial encounter; E80.6 Other disorders of bilirubin metabolism; R68.0 Hypothermia, not associated with low environmental temperature; D70.1 Agranulocytosis secondary to cancer chemotherapy; K59.00 Constipation, unspecified; K52.89 Other specified noninfective gastroenteritis and colitis; Z66 Do not resuscitate; E78.5 Hyperlipidemia, unspecified; Z68.24 Body mass index [BMI] 24.0-24.9, adult
CPT/HCPCS: 36415; 36430; 71045; 71250; 74019; 74022; 74177; 80048; 80053; 80076; 80162; 81001; 82140; 82150; 82800; 82948; 83605; 83690; 83735; 83880; 84484; 85007; 85025; 85027; 85610; 85730; 86850; 86900; 86901; 86923; 87040; 87070; 87205; 87420; 87804; 87811; 93005; 93308; 94640; 94667; 94668; 94761; 96361; 96374; 96375; 96376; 97165; 97535; 99285; G0378; J0713; J1171; J1720; J1938; J2405; J2543; J2765; J2919; J3490; P9016; P9035; Q5101; Q9966; Q9967